=== PATIENT | female | born 1985 | race Caucasian/White ===

== ENCOUNTER 2020-03-13 10:05 | Inpatient (IN) | payer OTHER ==
[~2020-03-13] VITALS: Ht 172.7 cm; Wt 77.8 kg
--- OUTSIDE RECORDS SUMMARY | ~2020-03-13 | XMS | Encounter Summary ---
Demographics + + + | Address | [address] | | | [place] [address] | + + + | Home Phone | | + + + | Preferred Language | Unknown | + + + | Marital Status | | + + + | Pentecostal Affiliation | Unknown | + + + | Race | Unknown | + + + | Ethnic Group | Unknown | + + + Author + + + | Author | [facility] | | | and [place] | + + + | Organization | [facility] | | | and [place] | + + + | Address | Unknown | + + + | Phone | Unavailable | + + + Support + + +---------+ + | Name | Relationship | Address | Phone | + + +---------+ + | Trisha Webb | ECON | Unknown | | + + +---------+ + Care Team Providers + +------+ + | Care Chief Operator Synthesis Name | Role | Phone | + +------+ + | Burton Masters MD | PCP | | + +------+ + Reason for Visit + + + | Reason | Comments | + + + | Medication Refill | | + + + Encounter Details +--------+--------+ + + + | Date | Type | Department | Care Team | Description | +--------+--------+ + + + | 05/12/ | Refill | [facility] | Burton Masters, | Medication Refill | | 2017 | | [facility] [place] | [address] | | | | | [address] | [place] | | | | | [place] | [address] | | | | | [address] | | | | | | [phone] | | | +--------+--------+ + + + Social History + + + +--------+ + | Tobacco Use | Types | Packs/Day | Years | Date | | | | | Used | | + + + +--------+ + | Current Every Day | Cigarettes | 0.5 | 16 | Started: 03/03/2001 | | Smoker | | | | | + + + +--------+ + + +---+---+---+ | Smokeless Tobacco: | | | | | Never Used | | | | + +---+---+---+ + + +---------+ + | Alcohol Use | Drinks/Week | oz/Week | Comments | + + +---------+ + | Yes | 0 Standard drinks | 0.0 | RARE | | | or equivalent | | | + + +---------+ + + + + | Sex Assigned at | Date Recorded | | | | + + + | Not on file | | + + + + + + + | Job Start Date | Occupation | Industry | + + + + | Not on file | Not on file | Not on file | + + + + + + + + | Travel History | Travel Start | Travel End | + + + + + + | No recent travel history available. | + + documented as of this encounter Plan of Treatment +--------+ + + + + | Date | Type | Specialty | Care Team | Description | +--------+ + + + + | 03/17/ | Virtual | Neurosurgery | Zuhair Folres | | | 2019 | Office | | MD Josel[address] | | | | Visit | | [address] | | | | | | [place], [place] | | | | | | [address] | | | | | | | | +--------+ + + + + | 03/18/ | Office | Physical Medicine | Jovana Dawson | | | 2019 | Visit | and Rehabilitation | [address] | | | | | | [address] | | | | | | [address] [place] | | | | | | [address] | | | | | | | | +--------+ + + + + | 04/01/ | Appointment | Oncology | Deny Mcmanus, | | 2019 | | | MD Alan CRUZ | | | | | | [place] | | | | | | [place] [address] | | | | | | [phone] | | | | | | | | +--------+ + + + + | 04/08/ | Procedure | Physical Medicine | Leonard De Leon | | 2019 | visit | and Rehabilitation | T, MD Kiki CRUZ | | | | | | [place] | | | | | | [address] | | | | | | | | +--------+ + + + + | 04/30/ | Office | Cardiology | Shad Saavedra, | | | 2019 | Visit | | MD Alan Cruz | | | | | | [place], | | | | | | [place] [address] | | | | | | [phone] | | | | | | | | +--------+ + + + + documented as of this encounter Visit Diagnoses Not on filedocumented in this encounter"
--- OUTSIDE RECORDS SUMMARY | ~2020-03-13 | XMS | Encounter Summary ---
Demographics + + + | Address | [address] | | | [place] [address] | + + + | Home Phone | | + + + | Preferred Language | Unknown | + + + | Marital Status | | + + + | Restorationist Affiliation | Unknown | + + + | Race | Unknown | + + + | Ethnic Group | Unknown | + + + Author + + + | Author | [facility] | | | and [place] | + + + | Organization | [facility] | | | and [...] Team Providers + +------+ + | Care Boilermaker Welder Name | Role | Phone | + +------+ + | Burton Masters MD | PCP | | + +------+ + Reason for Visit + + + | Reason | Comments | + + + | Lab Results | | + + + Encounter Details +--------+ + + + + | Date | Type | Department | Care Team | Description | +--------+ + + + + | 12/26/ | Telephone | [facility] | Deny Mcmanus, | Lab Results | | 2020 | | [facility] | [address] | | | | | [facility] [address] [place], | | | | | [place] | [place] [address] | | | | | [place] [address] | [phone] | | | | | [phone] | | | +--------+ + + + + Social History + + [...] Comments | + + +---------+ + | Not Currently | 0 Standard drinks | 0.0 | None at this time. | | | or equivalent | | [...] 03/17/ | Virtual | Neurosurgery | Zuhair Flores | | | 2019 | Office | | MD [address] | | | | Visit | | [address] [facility] [address] | | | | | | [place] | | | | | | [address] | | | | | | | | +--------+ + + + + | 03/18/ | Office | Physical Medicine | Jovana Dawson | | | 2019 | Visit | and Rehabilitation | [address] | | | | | | [address] [facility] | | | | | | [address] [place] | | | | | | [address] | | | | | | | | +--------+ + + + + | 04/01/ | Appointment | Oncology | Deny Mcmanus, | | | 2019 | | | [address] | | | | | | [address] [place], | | | | | | [place] [address] | | | | | | [phone] | | | | | | | | +--------+ + + + + | 04/08/ | Procedure | Physical Medicine | Leonard De Leon | | | 2019 | visit | and Rehabilitation | MD Kiki Win | | | | | | [place] | | | | | | [address] | | | | | | | | +--------+ + + + + | 04/30/ | Office | Cardiology | Shad Saavedra, | | | 2019 | Visit | | MD Alan Cruz | | | | | | [place], | | | | | | [place] [address] | | | | | | [phone] | | | | | | | | +--------+ + + + + documented as of this encounter Visit Diagnoses Not on filedocumented in this encounter"
--- OUTSIDE RECORDS SUMMARY | ~2020-03-13 | XMS | Encounter Summary ---
Demographics + + + | Address | [address] | | | [place] [address] | + + + | Home Phone | | + + + | Preferred Language | Unknown | + + + | Marital Status | | + + + | Temple Affiliation | Unknown | + + + | Race | Unknown | + + + | Ethnic Group | Unknown | + + + Author + + + | Author | [facility] | | | and [place] | + + + | Organization | [facility] | | | [...] Team Providers + +------+ + | Care Quality Cloth Tester Name | Role | Phone | + +------+ + | Burton Masters MD | PCP | | + +------+ + Reason for Visit +--------+ + | Reason | Comments | +--------+ + | Other | | +--------+ + Encounter Details +--------+ + + + + | Date | Type | Department | Care Team | Description | +--------+ + + + + | 01/07/ | Telephone | [facility] | Deny Mcmanus, | Other | | 2019 | | [facility] | [address] | | | | | [facility]OG[facility] CLINIC [address] [place], | | | | | [place] | [place] [address] | | | | | [place] [address] | [phone] | | | | | [phone] | | | +--------+ + + + + Social History + + + +--------+ + | Tobacco Use | Types | Packs/Day | Years | Date | | | | | Used | | + + + +--------+ + | Current Every Day | Cigarettes | 1 | 16 | Started: 03/03/2001 | | [...] | | | | Visit | | [address] | | | | | | [place] | | | | | | [address] | | | | | | | | +--------+ + + + + | 03/18/ | Office | Physical Medicine | Jovana Dawson | | | 2019 | Visit | and Rehabilitation | [address] | | | | | | [address] | | | | | | [address] [place] | | | | | | [address] | | | | | | | | +--------+ + + + + | 04/01/ | Appointment | Oncology | Deny Mcmanus, | | | 2019 | | | [address] | | | | | | [address] [place] | | | | | | [place] [address] | | | | | | [phone] | | | | | | | | +--------+ + + + + | 04/08/ | Procedure | Physical Medicine | Leonard De Leon | | | 2019 | visit | and Rehabilitation | MD Audelia [address] | | | | | | [place] | | | | | | [address] | | | | | | | | +--------+ + + + + | 04/30/ | Office | Cardiology | Shad Saavedra, | | | 2019 | Visit | | MD Alan Cruz | | | | | | [place], | | | | | | [place] [address] | | | | | | [phone] | | | | | | | | +--------+ + + + + documented as of this encounter Visit Diagnoses Not on filedocumented in this encounter"
--- OUTSIDE RECORDS SUMMARY | ~2020-03-13 | XMS | Encounter Summary ---
Demographics + + + | Address | [address] | | | [place] [address] | + + + | Home Phone | | + + + | Preferred Language | Unknown | + + + | Marital Status | | + + + | Church Affiliation | Unknown | + + + | Race | Unknown | + + + | Ethnic Group | Unknown | + + + Author + + + | Author | [facility] | | | and [place] | + + + | Organization | [facility] | | | [...] Team Providers + +------+ + | Care Tile Layer Supervisor Name | Role | Phone | + +------+ + | Burton Masters MD | PCP | | + +------+ + Reason for Visit + + + | Reason | Comments | + + + | Urinary Tract | | | Infection | | + + + Encounter Details +--------+ + + + + | Date | Type | Department | Care Team | Description | +--------+ + + + + | 08/07/ | Telephone | [facility] | Burton Masters, | Urinary Tract | | 2019 | | [facility] [place] | [address] | Infection | | | | [address] | [place] | | | | | [place] | [address] | | | | | [address] | | | | | | [phone] | | | +--------+ + + + [...] | | | Visit | | [address] [facility] [address] | | | | | | [place] | | | | | | [address] | | | | | | | | +--------+ + + + + | 03/18/ | Office | Physical Medicine | Jovana Dawson | | | 2019 | Visit | and Rehabilitation | [address] | | | | | | [address] [facility] | | | | | | [address] [place] | | | | | | [address] | | | | | | | | +--------+ + + + + | 04/01/ | Appointment | Oncology | Deny Mcmanus, | | | 2019 | | | [address] | | | | | | [place] | | | | | | [place] [address] | | | | | | [phone] | | | | | | | | +--------+ + + + + | 04/08/ | Procedure | Physical Medicine | Leonard De Leon | | | 2019 | visit | and Rehabilitation | MD Kiki Win | | | | | | [place] | | | | | | [address] | | | | | | | | +--------+ + + + + | 04/30/ | Office | Cardiology | Shad Saavedra, | | | 2019 | Visit | | MD Alan Cruz | | | | | | [place] | | | | | | [place] [address] | | | | | | [phone] | | | | | | | | +--------+ + + + + documented as of this encounter Visit Diagnoses Not on filedocumented in this encounter"
--- OUTSIDE RECORDS SUMMARY | ~2020-03-13 | XMS | Encounter Summary ---
Demographics + + + | Address | [address] | | | [place] [address] | + + + | Home Phone | | + + + | Preferred Language | Unknown | + + + | Marital Status | | + + + | Mormon Affiliation | Unknown | + + + | Race | Unknown | + + + | Ethnic Group | Unknown | + + + Author + + + | Author | [facility] | | | and [place] | + + + | Organization | [facility] | | | [...] Team Providers + +------+ + | Care Front Desk Agent Name | Role | Phone | + +------+ + | Burton Masters MD | PCP | | + +------+ + Reason for Visit + + + | Reason | Comments | + + + | Follow-up | | + + + Evaluate & Treat (Routine) +--------+--------+ + + + + | Status | Reason | Specialty | Diagnoses / | Referred By | Referred To | | | | | Procedures | Contact | Contact | +--------+--------+ + + + + | Closed | | Oncology | Diagnoses | [facility] | [facility] | | | | | Chronic | Medical | Deny Sarabia MD | | | | | myeloid | Oncology | [address] | | | | | leukemia, | Clinic [address] | | | | | BCR/ABL-posi | [address] | [place], | | | | | tive, in | [place], | [place] [address] | | | | | relapse | [place] | Phone: | | | | | (HCC) | [address] | [phone] | | | | | Chronic | Phone: | Fax: | | | | | myeloid | [phone] | [phone] | | | | | leukemia, | Fax: | | | | | | BCR/ABL-posi | [phone] | | | | | | tive, not | | | | | | | having | | | | | | | achieved | | | | | | | remission | | | | | | | (HCC) | | | | | | | Procedures | | | | | | | ME OFFICE | | | | | | | OUTPATIENT | | | | | | | VISIT 25 | | | | | | | MINUTES | | | | | | | [address] | | | +--------+--------+ + + + + Encounter Details +--------+ + + + + | Date | Type | Department | Care Team | Description | +--------+ + + + + | 04/23/ | Hospital | [facility] | YonathanDeny, | Chronic myeloid | | 2019 | Encounter | [facility] | [address] | leukemia, | | | | ONCOLOGY CLINIC [address] [place], | BCR/ABL-positive, | | | | [address] | [place] [address] | not having achieved | | | | [place] [address] | [phone] | remission (HCC) | | | | [phone] | | (Primary Dx); Nausea | | | | | | vomiting and | | | | | | diarrhea | +--------+ + + + + Social [...] | | | + +---+---+---+ + + | Comments: Currently at 1/2 pack per day | + + + + +---------+ + | Alcohol Use [...] + + documented as of this encounter Last Filed Vital Signs + + + + + | Vital Sign | Reading | Time Taken | Comments | + + + + + | Blood Pressure | 130/77 | 04/23/2019 10:54 AM | | | | | PDT | | + + + + + | Pulse | 79 | 04/23/2019 10:54 AM | | | | | PDT | | + + + + + | Temperature | 36.3 C (97.3 F) | 04/23/2019 10:54 AM | | | | | PDT | | + + + + + | Respiratory Rate | 18 | 04/23/2019 10:54 AM | | | | | PDT | | + + + + + | Oxygen Saturation | 97% | 04/23/2019 10:54 AM | | | | | PDT | | + + + + + | Inhaled Oxygen | - | - | | | Concentration | | | | + + + + + | Weight | 77.2 kg (170 lb 3.1 | 04/23/2019 10:54 AM | | | | oz) | PDT | | + + + + + | Height | - | - | | + + + + + | Body Mass Index | 25.88 | 04/16/2019 12:04 PM | | | | | PDT | | + + + + + documented in this encounter Medications at Time of Discharge + + + +---------+ + + | Medication | Sig | Dispensed | Refills | Start | End Date | | | | | | Date | | + + + +---------+ + + | loperamide | 2 tablets by mouth | 50 | 1 | 04/23/20 | | | (IMODIUM A-D) 2 MG | followed by 1 tablet | tablet | | 19 | | | tablet | by mouth after each | | | | | | | loose stool; Max 16 | | | | | | | mg/day | | | | | + + + +---------+ + + | ALPRAZolam (XANAX) | Take 1-2 tablets by | 60 | 0 | 04/08/20 | | | 0.5 mg tablet | mouth 3 times daily | tablet | | 19 | 9 | | | as needed. | | | | | + + + +---------+ + + | buPROPion | Take 1 tablet by | 180 | 1 | 03/08/20 | | | (WELLBUTRIN) 100 mg | mouth 2 times daily. | tablet | | 19 | 9 | | tablet | | | | | | + + + +---------+ + + | dasatinib | Take 1 tablet (100 | 30 | 2 | 04/10/20 | | | (SPRYCEL) 100 MG | mg total) by mouth | tablet | | 19 | 9 | | TABSIndications: | Daily. | | | | | | Chronic myeloid | | | | | | | leukemia, | | | | | | | BCR/ABL-positive, | | | | | | | not having achieved | | | | | | | remission (HCC) | | | | | | + + + +---------+ + + | | Take 1 tablet by | 90 | 0 | 04/08/20 | | | HYDROcodone-acetamin | mouth every 8 hours | tablet | | 19 | 9 | | ophen (NORCO) 5-325 | as needed for Pain. | | | | | | mg per tablet | | | | | | + + + +---------+ + + | lamoTRIgine | Take 1 tablet by | 60 | 0 | 03/08/20 | | | (LAMICTAL) 25 mg | mouth Daily. | tablet | | 19 | 9 | | tablet | | | | | | + + + +---------+ + + | ondansetron | Take 1 tablet by | 30 | 2 | 03/08/20 | | | (ZOFRAN) 8 MG tablet | mouth every 12 | tablet | | 19 | 9 | | | hours. | | | | | + + + +---------+ + + | prochlorperazine | Take 1 tablet by | 30 | 0 | 04/23/20 | | | 10 mg tablet | mouth every 8 hours | tablet | | 19 | 9 | | | as needed. | | | | | + + + +---------+ + + | raNITIdine | Take 1 tablet by | | 0 | 01/03/20 | | | (ZANTAC) 150 mg | mouth Daily. | | | 19 | 0 | | tablet | | | | | | + + + +---------+ + + documented as of this encounter Progress Notes Deny Mcmanus MD - 04/23/2019 6:32 AM PDTFormatting of this note might be different fr om the original. Hematology-Oncology Progress Note [facility] Pt. Name/Age/: Ashley Webb 34 y.o. 1985 CSN: [id number] Date of service: 04/23/2019 Provider: Deny Mcmanus MD HEMATOLOGY/ONCOLOGY PROBLEM LIST: Chronic myeloid leukemia (CML), BCR/ABL-positive (HCC) 01/02/2019 Initial Diagnosis Chronic myeloid leukemia, BCR/ABL-positive, not having achieved remission (HCC) 01/04/2019 - Chemotherapy dasatinib Of note, above dates are not necessarily exact. Assessment and plan: The patient has achieved an excellent early response to dasatinib, she is having intolerabl e ongoing side effects, specifically nausea, vomiting and diarrhea attributable to the drug. Based on this, seems unlikely that she will be able to maintain dasatinib long-term, remin ded her that she will need to be on a TKI for at least 2-3 years beyond achievement of remis rachell. Reviewed options including imatinib, nilotinib, etc. My bias is to recommend imatinib whic h often is better tolerated but we agreed to hold off on a final decision until she sees Dr. Moore next week. 1. Continue dasatinib for now. 2. Compazine called in for her nausea, encouraged to try Imodium at home for diarrhea. 3. Await input from Dr. Moore at [facility] next week, further follow-up to be arranged after that visit. Subjective: The patient chart and medications were reviewed in detail and the patient was seen and exam inedNaman Webb is a 34 y.o. 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 Patient continues to take her dasatinib daily, unfortunately is having daily nausea and vom iting, minimally impacted by Zofran. Also has abdominal pain and diarrhea frequently after eating, has not tried anything for that. No fevers, no bleeding, occasional sweats. Has lo st 7 pounds compared to a week ago. Denies new medications or exposures. PMH: Past Medical History: Diagnosis Date Abdominal pain Abnormal vaginal bleeding Abscess of trunk Anxiety Bipolar disease, chronic (HCC) Breast lump Chest pain, unspecified Chronic low back pain 04/16/2015 Chronic myeloid leukemia, BCR/ABL-positive, not having achieved remission (HCC) 9 Cough DDD (degenerative disc disease), lumbar 04/16/2015 Depression Engorgement of breasts associated with childbirth, delivered Fatigue Female pelvic pain Fibromyalgia Flu Generalized anxiety disorder Headache Insomnia Knee pain Lumbar radiculopathy - left lower extremity 04/16/2015 Missed Mucocele of salivary gland Muscle spasm Obesity Palpitations Panic disorder Pulpitis Sciatica Shoulder pain Tachycardia Tobacco use Social & Family Hx: Social History Socioeconomic History Marital status: Spouse name: Not on file Number of children: 3 Years of education: 15 Highest education level: Not on file Occupational History 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 Drug use: Yes Types: Marijuana Sexual activity: Yes Social History Narrative Merged History Encounter Family History Problem Relation Age of Onset High blood pressure Father High cholesterol Father Gout Father High blood pressure Mother Multiple sclerosis Mother Heart disease Paternal Grandfather High blood pressure Paternal Grandfather Heart attack Paternal Grandfather Obesity Paternal Grandmother High blood pressure Paternal Grandmother Alcohol abuse Maternal Grandfather Heart disease Maternal Grandfather High blood pressure Maternal Grandfather Stroke Maternal Grandfather Heart attack Maternal Grandfather Miscarriages / stillbirths Maternal Grandmother Stroke Maternal Grandmother Diabetes Maternal Grandmother No known problems Brother No known problems Sister No known problems Child No known problems Child No known problems Child No known problems Paternal Uncle Lymphoma Paternal Aunt Esophageal cancer Maternal Aunt Heart disease Maternal Aunt Review of Systems: Constitutional: Pt reports moderate fatigue - worsening "I have a problem sleeping". Pt rep orts daily nausea and vomiting - medication "doesn't help much". Pt has had a 7lb weight los s since 04/16/19. Pt reports decreased appetite - ongoing; uses marijuana with positive effec t though nausea is still present. Denies high fevers, shaking chills, anorexia, or night swe ats. Ear, Nose, Mouth, Throat: Pt had mouth sores, resolved. Denies odynophagia, dysphagia, or t innitus. Cardiovascular: Pt reports elevated HR and chest pain x1. Went to the ED with resolution of symptoms. Denies shortness of breath, dyspnea on exertion, chest pain, palpitations or orth opnea. Respiratory: Denies cough, hemoptysis, or sputum production. Gastrointestinal: Pt reports diarrhea with food. Pt reports abdominal pain - worsening. Den ies constipation, melena, or bright red blood per rectum. Genitourinary: Denies hematuria or dysuria. Musculoskeletal: Pt reports pain in "long bones". Denies joint pain or tenderness. Neurologic: Denies headache, visual changes, or numbness/tingling of the extremities. Endocrine: Denies peripheral edema or heat/cold intolerance. Hematologic: Denies spontaneous bruising or bleeding. Bruises easily. Integumentary: Denies rash, wounds or other skin concerns. Pain: Pt reports pain in long bones at 7/10 currently. Pt states current pain management mi nimally effective. ROS otherwise negative. Note: Pt here for follow-up with Dr. Mcmanus. My chart: Active. Medications: Current Outpatient Medications Medication Sig ALPRAZolam (XANAX) 0.5 mg tablet Take 1-2 tablets by mouth 3 times daily as needed. buPROPion (WELLBUTRIN) 100 mg tablet Take 1 tablet by mouth 2 times daily. dasatinib (SPRYCEL) 100 MG TABS Take 1 tablet (100 mg total) by mouth Daily. HYDROcodone-acetaminophen (NORCO) 5-325 mg per tablet Take 1 tablet by mouth every 8 ho urs as needed for Pain. lamoTRIgine (LAMICTAL) 25 mg tablet Take 1 tablet by mouth Daily. ondansetron (ZOFRAN) 8 MG tablet Take 1 tablet by mouth every 12 hours. prochlorperazine 10 mg tablet Take 1 tablet by mouth every 8 hours as needed. raNITIdine (ZANTAC) 150 mg tablet Take 1 tablet by mouth Daily. No current facility-administered medications for this encounter. Allergies: Allergies Allergen Reactions Tape [Adhesive & Tape] Vitals: Temp: 36.3 C (97.3 F) BP: 130/77 Pulse: 79 Resp: 18 SpO2: 97 % on Temp :Temp Av.3 C (97.3 F) Min: 36.3 C (97.3 F) Max: 36.3 C (97.3 F) Wt. Current: Weight: 77.2 kg (170 lb 3.1 oz) Physical Exam: ECOG Performance Status: 2 General: The patient is alert and oriented. No acute distress. Here with significant oth er and multiple children. Psychiatric: Normal mood and affect. Appropriate. Diagnostic studies: Available data and image reports were reviewed personally. See reports. Significant resul ts and findings are addressed here or in the Assessment and Plan. Recent Labs Lab 04/16/19 1259 WBC 4.1 HGB 13.3 HCT 38.8 PLT 88* Recent Labs Lab 04/16/19 1259 NA 138 K 3.3* CL 111* CO2 23 BUN 6* CREA 0.68 GLU 85 CALCIUM 8.6* BILITOT 0.4 AST 33 ALT 25 ALKPHOS 86 ALBUMIN 3.8 BCR-ABL1 for CML and All Order: [id number] Status: Final result Visible to patient: Yes (MyChart) Next appt: Today at 11:00 in Oncology (Deny Mcmanus MD) Dx: Chronic myeloid leukemia, BCR/ABL-pos... Ref Range & Units 13d ago b2a2 transcript % 0.1637 b3a2 transcript % Comment Comment: <0.0032 % (sensitivity limit of assay) BCR/ABL1 of e1a2 Type % Comment Comment: <0.0032 % (sensitivity limit of assay) Interpretation: Comment Comment: POSITIVE for the BCR-ABL1 e13a2 (b2a2, p210) fusion transcript. Imaging: Recent Results (from the past 360 hour(s)) US Chest Narrative TECHNIQUE: Targeted chest B-mode ultrasound with color Doppler CLINICAL INFORMATION: Limited to pericardial effusion. COMPARISON: Chest radiograph obtained same day and 03/05/2019. FINDINGS: No sonographic findings to suggest a pericardial effusion. Very limited visualization of the heart. No evidence of a mass lesion or abnormal fluid collection. IMPRESSION - No sonographic evidence of a pericardial effusion. Notification: A preliminary report was relayed to the ordering provider by the electromechanical technologist immediately following the exam. Dictated and Signed by: Tyshawn Newton MD Electronically signed: 04/16/2019 1:16 PM XR Chest AP Portable Narrative XR CHEST AP PORTABLE 04/16/2019 1:07 PM HISTORY: PLEURITIC CHEST PAIN (ADULT). COMPARISON: Multiple priors. Findings: Heart size is within normal limits. Aorta is normal. Mediastinum demonstrates no acute findings. Central pulmonary vasculature is normal. The bilateral lungs are clear with no evidence for pleural effusion or pneumothorax. There are no acute osseous abnormalities. IMPRESSION - No acute findings. Dictated and Signed by: Jeffrey Nicholas MD Electronically signed: 04/16/2019 1:29 PM Electronically signed by: Deny Mcmanus MD 04/23/2019 11:28 CC: Burton Masters MD Total time in face to face discussion with the patient and family was 25 minutes; more than 50% of the time was spent in counseling and coordination of care. Portions of this chart may have been created with [employer] voice recognition software. Occasi onal wrong-word or sound-alike substitutions may have occurred due to the inherent dickens itations of voice recognition software. Please read the chart carefully and recognize, using context, where these substitutions have occurred. documented in this encounter Plan of Treatment +--------+ + + + + | Date | Type | Specialty | Care Team | Description | +--------+ + + + + | 03/17/ | Virtual | Neurosurgery | Zuhair Flores | | | 2019 | Office | | MD Kiki Yee W | | | | Visit | | [address] | | | | | | [place] | | | | | | [address] | | | | | | | | +--------+ + + + + | 03/18/ | Office | Physical Medicine | Jovana Dawson | | | 2019 | Visit | and Rehabilitation | [address] | | | | | | [address] [facility] | | | | | | [address] [place] | | | | | | [address] | | | | | | | | +--------+ + + + + | 04/01/ | Appointment | Oncology | Deny Mcmanus, | | | 2019 | | | [address] | | | | | | [facility] [place], | | | | | | [place] [address] | | | | | | [phone] | | | | | | | | +--------+ + + + + | 04/08/ | Procedure | Physical Medicine | Leonard De Leon | | | 2019 | visit | and Rehabilitation | T, [address] | | | | | | [place] | | | | | | [address] | | | | | | | | +--------+ + + + + | 04/30/ | Office | Cardiology | Shad Saavedra, | | 2019 | Visit | | [address] | | | | | | [place], | | | | | | [place] [address] | | | | | | [phone] | | | | | | | | +--------+ + + + + documented as of this encounter Procedures + +--------+ + + + | Procedure Name | Priori | Date/Time | Associated Diagnosis | Comments | | | ty | | | | + +--------+ + + + | LABS - EXTERNAL SCAN | | 05/20/2019 | | Results for this | | | | 12:00 AM | | procedure are in the | | | | PDT | | results section. | + +--------+ + + + documented in this encounter Results LABS - EXTERNAL SCAN (05/20/2019 12:00 AM PDT) + + + | Narrative | Performed At | + + + | Ordered by an | | | unspecified provider. | | + + + documented in this encounter Visit Diagnoses + + | Diagnosis | + + | Chronic myeloid leukemia, BCR/ABL-positive, not having achieved remission (HCC) - | | Primary Chronic myeloid leukemia, without mention of having achieved remission | + + | Nausea vomiting and diarrhea Nausea with vomiting | + + documented in this encounter
--- OUTSIDE RECORDS SUMMARY | ~2020-03-13 | XMS | Encounter Summary ---
Demographics + + + | Address | [address] | | | [place] [address] | + + + | Home Phone | | + + + | Preferred Language | Unknown | + + + | Marital Status | | + + + | Jehovah'S Witness Affiliation | Unknown | + + + | Race | Unknown | + + + | Ethnic Group | Unknown | + + + Author + + + | Author | [facility] | | | and [place] | + + + | Organization | [facility] | | | [...] Team Providers + +------+ + | Care Information Technology Consultant Name | Role | Phone | + [...] Description | +--------+--------+ + + + | 02/18/ | Refill | [facility] | Burton Masters, | Medication Refill | | 2020 | | [facility] | [address] | | | | | [address] | [place] | | | | | [place] | [address] | | | | | [address] | | | | | | [phone] | | | +--------+--------+ + + + [...] | +--------+ + + + + | 05/12/ | Virtual | Neurosurgery | Zuhair Flores | | | 2019 | Office | | MD [address] | | | | Visit | | [address] | | | | | | [place] | | | | | | [address] | | | | | | | | +--------+ + + + + | 03/18/ | Office | Physical Medicine | Jovana Dawson | | | 2019 | Visit | and Rehabilitation | [address] | | | | | | [address] [facility] [facility] | | | | | | [address] [place] | | | | | | [address] | | | | | | | | +--------+ + + + + | 04/01/ | Appointment | Oncology | Deny Mcmanus, | | | 2019 | | | MD [address] | | | | | | [place] | | | | | | [place] [address] | | | | | | [phone] | | | | | | | | +--------+ + + + + | 04/08/ | Procedure | Physical Medicine | Leonard De Leon | | | 2019 | visit | and Rehabilitation | MD [address] | | | | | | [place] | | | | | | [address] | | | | | | | | +--------+ + + + + | 04/30/ | Office | Cardiology | Shad Saavedra, | | | 2019 | Visit | | MD [address] | | | | | | [address], | | | | | | [place] [address] | | | | | | [phone] | | | | | | | | +--------+ + + + + documented as of this encounter Visit Diagnoses Not on filedocumented in this encounter"
--- OUTSIDE RECORDS SUMMARY | ~2020-03-13 | XMS | Encounter Summary ---
Demographics + + + | Address | [address] | | | [place] [address] | + + + | Home Phone | | + + + | Preferred Language | Unknown | + + + | Marital Status | | + + + | Jewish Affiliation | Unknown | + + + | Race | Unknown | + + + | Ethnic Group | Unknown | + + + Author + + + | Author | [facility] | | | and [place] | + + + | Organization | [facility] | | | [...] Team Providers + +------+ + | Care Senior Design Engineering Specialist Name | Role | Phone | + +------+ + | Burton Masters MD | PCP | | + +------+ + Reason for Visit Evaluate & Treat (Routine) +--------+--------+ + + + + | Status | Reason | Specialty | Diagnoses / | Referred By | Referred To | | | | | Procedures | Contact | Contact | +--------+--------+ + + + + | Closed | | Oncology | Diagnoses | [facility] | Yonathan, | | | | | Chronic | Medical | Deny Sarabia MD | | | | | myeloid | Oncology | [address] | | | | | leukemia, | Clinic [address] | | | | | BCR/ABL-posi | [address] | [place], | | | | | [place] in | [place], | [place] [address] | | | | | relapse | [place] | Phone: | | | | | (HCC) | [address] | [phone] | | | | | Chronic | Phone: | Fax: | | | | | myeloid | [phone] | [phone] | | | | | leukemia, | Fax: | | | | | | BCR/ABL-posi | [phone] | | | | | | tive, not | | | | | | | having | | | | | | | achieved | | | | | | | remission | | | | | | | (HCC) | | | | | | | Procedures | | | | | | | [place] OFFICE | | | | | | | OUTPATIENT | | | | | | | VISIT 25 | | | | | | | MINUTES | | | | | | | [address] | | | +--------+--------+ + + + + Encounter Details +--------+ + + + + | Date | Type | Department | Care Team | Description | +--------+ + + + + | 02/13/ | Hospital | [facility] | Deny Mcmanus, | Chronic myeloid | | 2019 | Encounter | [facility] | MD [address] | leukemia, | | | | ONCOLOGY CLINIC [address] [place], | BCR/ABL-positive, | | | | [place] | [place] [address] | not having achieved | | | | [place] [address] | [phone] | remission (HCC) | | | | [phone] | | (Primary Dx); Lumbar | | | | | | radiculopathy; | | | | | | Lumbar spondylosis; | | | | | | Moderate episode of | | | | | | recurrent major | | | | | | depressive disorder | | | | | | (HCC) | +--------+ + + + + Social [...] + + + | Blood Pressure | 153/83 | 02/13/2019 10:57 AM | | | | | PDT | | + + + + + | Pulse | 74 | 02/13/2019 10:57 AM | | | | | PDT | | + + + + + | Temperature | 37.1 C (98.7 F) | 02/13/2019 10:57 AM | | | | | PDT | | + + + + + | Respiratory Rate | 18 | 02/13/2019 10:57 AM | | | | | PDT | | + + + + + | Oxygen Saturation | 99% | 02/13/2019 10:57 AM | | | | | PDT | | + + + + + | Inhaled Oxygen | - | - | | | Concentration | | | | + + + + + | Weight | 82.1 kg (181 lb) | 02/13/2019 10:57 AM | | | | | PDT | | + + + + + | Height | - | - | | + + + + + | Body Mass Index | 27.53 | 01/16/2019 9:34 AM | | | | | PDT [...] (XANAX) | Take 1-2 tablets by | 20 | 1 | 01/05/20 | | | 0.25 mg tablet | mouth Twice daily | tablet | | 19 | 9 | | | as needed for | | | | | | | Anxiety. | | | | | + + + +---------+ + + | buPROPion | Take 2 tablets by | 180 | 1 | 12/03/19 | | | (WELLBUTRIN) 100 mg | mouth 2 times daily. | tablet | | 19 | 9 | | tablet | | | | | | + + + +---------+ + + | dasatinib | Take 1 tablet by | 30 | 2 | 01/12/20 | | | (SPRYCEL) 100 MG | mouth Daily. | tablet | | 19 | 9 | | TABSIndications: | | | | | | | Chronic [...] tablet by | 90 | 0 | 01/17/20 | | | HYDROcodone-acetamin | mouth every 8 hours | tablet | | 19 | 9 | | ophen (NORCO) 5-325 | as needed for Pain. | | | | | | mg per tablet | | | | | | + + + +---------+ + + | ondansetron | Take 1 tablet by | | 0 | 01/03/20 | | | (ZOFRAN) 8 MG tablet | mouth every 12 | | | 19 | 9 | | [...] encounter Progress Notes Deny Mcmanus MD - 02/13/2019 6:43 AM PDTFormatting of this note might be different fr om the original. Hematology-Oncology Progress Note [facility] Pt. Name/Age/: Ashley Webb 34 y.o. 1985 CSN: [id number] Date of service: 02/13/2019 Provider: Deny Mcmanus MD HEMATOLOGY/ONCOLOGY PROBLEM LIST: Chronic myeloid leukemia (CML), BCR/ABL-positive (HCC) 01/02/2019 Initial Diagnosis Chronic myeloid leukemia, BCR/ABL-positive, not having achieved remission (HCC) 01/04/2019 - Chemotherapy dasatinib Of note, above dates are not necessarily exact. Assessment and plan: Patient continues to respond beautifully to the dasatinib, now having achieved a complete h ematologic response. Recommended continuation of the drug, with regular monitoring to hopef ully document that she achieves a molecular remission as well. Regarding her ongoing anorexia and nausea, seems increasingly unlikely that this is related to either her chronic leukemia or the dasatinib given that it predates the dasatinib and may s not resolved with excellent control of her hematologic condition. As such, I would recomm end independent evaluation of those symptoms as already planned. She acknowledges that it m ay be related to her other medications including her narcotics. 1. Continue dasatinib 100 mg daily. 2. Recheck in approximately 2 months with labs including BCR/ABL approximately a week befor ada. 3. Patient has appointment with her PCP on Monday to further evaluate her ongoing GI sympto ms. Subjective: The patient chart and medications were reviewed in detail and the patient was seen and exam inedNaman Webb is a 34 y.o. 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 Patient continues to complain of poor appetite, ongoing nausea without vomiting. Has lost a little bit more weight, no fevers or drenching sweats. Scattered arthralgias are unchange d, still using hydrocodone for that. No new adenopathy. Did notice a nonpruritic, nonpainf ul rash under her chin just this morning. Energy level still low. 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 Drug use: No Sexual activity: Yes Other Topics Concern None Social History Narrative Merged History Encounter Family [...] Heart disease Maternal Aunt Review of Systems: REVIEW OF SYSTEMS Constitutional: Energy is very low and continues to be low. Nausea "all the time" and taki ng Zofran every morning. Weight is down to 82.1kg from 83.2 kg. "No appetite reported" No fe vers. Denies fatigue. Denies high fevers, shaking chills, anorexia, nausea, vomiting, weigh t loss, or night sweats. Appetite without changes. Ear, Nose, Mouth, Throat: Denies odynophagia, dysphagia, or tinnitus. Cardiovascular: Denies shortness of breath, dyspnea on exertion, chest pain, palpitations o r orthopnea. Respiratory: Cough with clear phlegm continues (chronic d/t smoking). Denies cough, hemopty sis, or sputum production. Gastrointestinal: Denies abdominal pain, constipation, diarrhea, melena, or bright red bloo d per rectum. Genitourinary: Denies hematuria or dysuria. Musculoskeletal: Backs/hips/knee pain continues and can get up to 8/10. Denies joint pain o r tenderness. Neurologic: MAY's daily. Denies headache, visual changes, or numbness/tingling of the extrem ities. Endocrine: Denies peripheral edema or heat/cold intolerance. Hematologic: Bruises easily. Denies spontaneous bruising or bleeding. Integumentary: Starting today facial redness with small red bumps. Denies rash, wounds or o ther skin concerns. Pain: Generalized joint pain; taking Hydrocodone 3x daily; 6/10 currently. Note: 3 week F/U with labs My chart: Active Medications: Current Outpatient Medications Medication Sig ALPRAZolam (XANAX) 0.25 mg tablet Take 1-2 tablets by mouth Twice daily as needed for Anxiety. buPROPion (WELLBUTRIN) 100 mg tablet Take 2 tablets by mouth 2 times daily. dasatinib (SPRYCEL) 100 MG TABS Take 1 tablet by mouth Daily. HYDROcodone-acetaminophen (NORCO) 5-325 mg per tablet Take 1 tablet by mouth every 8 ho urs as needed for Pain. ondansetron (ZOFRAN) 8 MG tablet Take 1 tablet by mouth every 12 hours. raNITIdine (ZANTAC) 150 mg tablet Take 1 tablet by mouth Daily. No current facility-administered medications for this encounter. Allergies: Allergies Allergen Reactions Tape [Adhesive & Tape] Vitals: Temp: 37.1 C (98.7 F) BP: 153/83 Pulse: 74 Resp: 18 SpO2: 99 % on Temp :Temp Av.1 C (98.7 F) Min: 37.1 C (98.7 F) Max: 37.1 C (98.7 F) Wt. Current: Weight: 82.1 kg (181 lb) Physical Exam: Exam: ECOG Performance Status: 1 General: The patient is alert and oriented. No acute distress. Here with . HEENT: PERRL, Non-icteric. Skin: No bruising, or petechiae. Minimal erythematous rash under the chin. Neurological: , No focal deficits noted. Speech fluent. Psychiatric: Normal mood and affect. Appropriate. Diagnostic studies: Available data and image reports were reviewed personally. See reports. Significant resul ts and findings are addressed here or in the Assessment and Plan. Component Latest Ref Rng & Units 01/11/2019 01/22/2019 02/13/2019 1037 1526 1023 WBC 4.0 - 11.0 K/uL 63.3 (HH) 13.8 (H) 8.1 RBC COUNT 3.70 - 5.20 M/uL 4.12 4.22 4.42 Hemoglobin 11.5 - 16.0 g/dL 13.0 13.1 14.5 Hct, Final 34.0 - 47.0 % 38.9 40.3 43.0 MCV 83.0 - 101.0 fL 94.4 95.5 97.3 MCH 28.0 - 35.0 pg 31.6 31.0 32.8 MCHC 32.0 - 36.0 g/dL 33.4 32.5 33.7 RDW-CV <15.0 % 16.0 (H) 16.8 (H) 16.6 (H) RDW-SD 35.1 - 46.3 fL 54.5 (H) 57.4 (H) 60.3 (H) Platelet Count 140 - 440 K/uL 690 (H) 263 292 MPV 6.5 - 12.4 fL 10.7 9.9 8.7 % Neutrophils 45.0 - 82.0 % 47.2 64.8 61.1 % Lymphocytes 20.0 - 45.0 % 9.7 (L) 26.7 32.2 % Monocytes 4.0 - 12.0 % 2.9 (L) 2.0 (L) 4.9 % Eosinophils 0.0 - 5.0 % 1.4 1.7 0.4 % Basophils 0.0 - 1.0 % 6.5 (H) 2.6 (H) 1.2 (H) % Immature Granulocytes 0.0 - 0.4 % 32.3 (H) 2.2 (H) 0.2 Absolute Neutrophils 1.80 - 8.50 K/uL 29.85 (H) 8.94 (H) 4.97 Absolute Lymphocytes 0.60 - 3.20 K/uL 6.11 (H) 3.68 (H) 2.62 Absolute Monocytes 0.00 - 1.00 K/uL 1.83 (H) 0.27 0.40 Absolute Eosinophils 0.00 - 0.40 K/uL 0.91 (H) 0.24 0.03 Absolute Basophils 0.00 - 0.10 K/uL 4.11 (H) 0.36 (H) 0.10 Absolute Immature Granulocytes 0.00 - 0.03 K/uL 20.46 (H) 0.31 (H) 0.02 % nRBC 0 - 2 per 100 WBCs 0 1 0 Absolute nRBC 0.00 - 0.01 K/uL 0.16 (H) 0.10 (H) 0.00 Recent Labs Lab 02/13/19 1023 NA 139 K 4.0 CL 111* CO2 25 BUN 11 CREA 0.77 GLU 83 CALCIUM 8.7 BILITOT 1.1 AST 26 ALT 25 ALKPHOS 82 ALBUMIN 4.2 Electronically signed by: Deny Mcmanus MD 02/13/2019 11:20 CC: Burton Masters MD Portions of this chart may have been created with [employer] voice recognition software. Occasi onal wrong-word or [...] | Neurosurgery | Zuhair Flores | | 2019 | Office | | MD Joselito [address] | | | | Visit | | [place] [address] | | | | | | [place] | | | | | | [address] | | | | | | | | +--------+ + + + + | 03/18/ | Office | Physical Medicine | Jovana Dawson | | 2019 | Visit | and Rehabilitation | Magda, PA-C [address] | | | | | | [address] [facility] | | | | | | [address] [place] | | | | | | [address] | | | | | | | | +--------+ + + + + | 04/01/ | Appointment | Oncology | Deny Mcmanus, | | | 2019 | | | [address] | | | | | | [place] | | | | | | [place] [address] | | | | | | [phone] | | | | | | | | +--------+ + + + + | 04/08/ | Procedure | Physical Medicine | Leonard De Leon | | | 2019 | visit | and Rehabilitation | MD Audelia [address] | | | | | | [place] | | | | | | [address] | | | | | | | | +--------+ + + + + | 04/30/ | Office | Cardiology | Shad Saavedra, | | | 2019 | Visit | | MD [address] | | | | | | [place], | | | | | | [place] [address] | | | | | | [phone] | | | | | | | | +--------+ + + + + documented as of this encounter Procedures + +--------+ + + + | Procedure Name | Priori | Date/Time | Associated Diagnosis | Comments | | | ty | | | | + +--------+ + + + | CBC WITH | STAT | 02/13/2019 | Chronic myeloid | Results for this | | DIFFERENTIAL | | 10:23 AM | leukemia, | procedure are in the | | | | PDT | BCR/ABL-positive, | results section. | | | | | not having achieved | | | | | | remission (HCC) | | + +--------+ + + + | COMPREHENSIVE | STAT | 02/13/2019 | Chronic myeloid | Results for this | | METABOLIC PANEL | | 10:23 AM | leukemia, | procedure are in the | | | | PDT | BCR/ABL-positive, | results section. | | | | | not having achieved | | | | | | remission (HCC) | | + +--------+ + + + documented in this encounter Results BCR-ABL1 for CML and All (04/10/2019 10:23 AM PDT) + + + + + + | Component | Value | Ref Range | Performed | Pathologist | | | | | At | Signature | + + + + + + | b2a2 | 0.1637 | % | REFERENCE | | | transcript | | | LAB [facility] | | | | | | - [facility] | | + + + + + + | b3a2 | CommentComment: | % | REFERENCE | | | transcript | <0.0032 % | | LAB [facility] | | | | (sensitivity limit of | | - [facility] | | | | assay) | | | | + + + + + + | BCR/ABL1 of | CommentComment: | % | REFERENCE | | | e1a2 Type | <0.0032 % | | LAB [facility] | | | | (sensitivity limit of | | - [facility] | | | | assay) | | | | + + + + + + | Interpretat | CommentComment: POSITIVE | | REFERENCE | | | ion: | for the BCR-ABL1 e13a2 | | LAB [facility] | | | | (b2a2, p210) fusion | | - [facility]KR | | | | transcript. | | | | + + + + + + | Director | CommentComment: Elsie Koo, | | REFERENCE | | | Review | PhD, FACMG | | LAB [facility] | | | | Director, | | - BKR | | | | Molecular Genetics | | | | | | [facility] | | | | | | [facility] | | | | | | | | | | | | Biology and Pathology | | | | | | | | | | | | [facility], | | | | | | [place] | | | | | | | | | | + + + + + + | Background: | CommentComment: This | | REFERENCE | | | | assay can detect three | | LAB [facility] | | | | different types of | | - BKR | | | | BCR-ABL1 | | | | | | fusiontranscripts | | | | | | associated with CML, | | | | | | ALL, and AML: e13a2 | | | | | | ([id number]) and | | | | | | e14a2 (previously b3a2) | | | | | | (major breakpoint, | | | | | | p210), aswell as e1a2 | | | | | | (minor breakpoint, | | | | | | p190). The e13a2 and | | | | | | e14a2 transcriptvalues | | | | | | are titrated to the | | | | | | current International | | | | | | Scale (IS). | | | | | | Thestandardized baseline | | | | | | is 100% BCR-ABL1 (IS) | | | | | | and major | | | | | | molecularresponse (MMR) | | | | | | is equivalent to 0.1% | | | | | | BCR-ABL1 (IS) | | | | | | correspondingto a 3-log | | | | | | reduction. Results | | | | | | should be correlated | | | | | | with appropriateclinical | | | | | | and laboratory | | | | | | information as | | | | | | indicated. | | | | + + + + + + | Methodology | CommentComment: Total | | REFERENCE | | | : | RNA is isolated from the | | LAB [facility] | | | | sample and subject to a | | - BKR | | | | real-time,reverse | | | | | | transcriptase polymerase | | | | | | chain reaction | | | | | | (RT-PCR). The PCRprimers | | | | | | and probes are specific | | | | | | for BCR-ABL1 e13a2, | | | | | | e14a2 and [id number] | | | | | | transcripts. The ABL1 | | | | | | transcript is amplified | | | | | | as the controlfor cDNA | | | | | | quantity and quality. | | | | | | Serial dilutions of a | | | | | | validatedpositive | | | | | | control RNA with known | | | | | | t(9;22) BCR-ABL1 are | | | | | | used asreference for | | | | | | quantification of | | | | | | BCR-ABL1 relative to | | | | | | ABL1. Thenumeric | | | | | | BCR-ABL1 level is | | | | | | reportd as % | | | | | | BCR-ABL1/ABL1 and | | | | | | thedetection sensitivity | | | | | | is 4.5 log below the | | | | | | standard baseline.This | | | | | | test was developed and | | | | | | its performance | | | | | | characteristics | | | | | | determinedby [facility]. It | | | | | | has not been cleared or | | | | | | approved by the Food | | | | | | and | | | | | | DrugAdministration.Refer | | | | | | ences: 1. Lalitha T | | | | | | and Jade Ortiz: Seminars | | | | | | in Hematology 2002; | | | | | | 40 (suppl2):62-68. | | | | | | 2. carlito Sheikh | | | | | | al. Blood 2010; 116: | | | | | | [id number]. 3. NCCN | | | | | | Clinical Practice | | | | | | Guidelines in Oncology, | | | | | | Chronic Myeloid | | | | | | Leukemia. V2. 2017. | | | | + + + + + + + + | Specimen | + + | Blood | + + + + + | Narrative | Performed At | + + + | Performed at: - [facility] [address] [facility], | REFERENCE LAB | | [facility], [place] [id number] [address] Former: Miguelina Lorenzo MD, Phone: | [facility] | | [phone] Performed at: - [facility] [address] [facility], [place] [id number] [employer] Former: Miguelina Lorenzo MD, | | | Phone: [phone] | | + + + + + + + + | Performing | Address | City/State/Zipcode | Phone Number | | Organization | | | | + + + + + | REFERENCE LAB | [address] | [place], [place] | [phone] | | [facility] | [address] | [address] | | + + + + + Comprehensive Metabolic Panel (04/10/2019 10:23 AM PDT) + + + + + + | Component | Value | Ref Range | Performed | Pathologist | | | | | At | Signature | + + + + + + | Na | 137 | 136 - 145 | [facility] | | | | | mmol/L | [facility] | | | | | | [facility] | | | | | | CENTER - | | | | | | LABORATORY | | + + + + + + | K | 4.0 | 3.4 - 5.1 | [facility] | | | | | mmol/L | [facility] | | | | | | MEDICAL | | | | | | CENTER - | | | | | | LABORATORY | | + + + + + + | Cl | 110 (H) | 98 - 107 mmol/L | [facility] | | | | | | [facility] | | | | | | MEDICAL | | | | | | CENTER - | | | | | | LABORATORY | | + + + + + + | CO2 | 21 | 20 - 31 mmol/L | [facility] | | | | | | [facility] | | | | | | [facility] | | | | | | CENTER - | | | | | | LABORATORY | | + + + + + + | Anion Gap | 6 | 3 - 16 mmol/L | [facility] | | | | | | [facility] | | | | | | [facility] | | | | | | C[facility] - | | | | | | LABORATORY | | + + + + + + | Glucose | 82 | 60 - 106 mg/dL | [facility] | | | | | | [facility] | [facility] | | | | | | C[facility] - | | | | | | LABORATORY | | + + + + + + | BUN | 15 | 9 - 23 mg/dL | [facility] | | | | | | [facility] | | | | | | [facility] | | | | | | C[facility] - | | | | | | LABORATORY | | + + + + + + | Creatinine | 0.76 | 0.55 - 1.02 | [facility] | | | | | mg/dL | [facility] | | [facility] | [facility] | | | | | | CENTER - | | | | | | LABORATORY | | + + + + + + | eGFR if not | >60Comment: GLOMERULAR | >=60 | [facility] | | | | FILTRATION | mL/min/1.73m2 | [facility] | | | [place] | RATE,ESTIMATED | | MEDICAL | | | | mL/min/1.72r8Kmbp than | | CENTER - | | | | 60 Chronic kidney | | LABORATORY | | | | disease,if found over a | | | | | | 3-month period.Less than | | | | | | 15 Kidney failureFor | | | | | | | | | | | | Americans,multiply the | | | | | | calculated GFR by 1.21. | | | | | | | | | | + + + + + + | Calcium | 8.9 | 8.7 - 10.4 | [facility] | | | | | mg/dL | [facility] | | | | | | [facility] | | | | | | CENTER - | | | | | | LABORATORY | | + + + + + + | Albumin | 4.3 | 3.2 - 4.8 g/dL | [facility] | | | | | | [facility] | | | | | | MEDICAL | | | | | | CENTER - | | | | | | LABORATORY | | + + + + + + | Bilirubin | 0.6 | 0.3 - 1.2 mg/dL | [facility] | | | Total | | | [facility] | | | | | | MEDICAL | | | | | | CENTER - | | | | | | LABORATORY | | + + + + + + | Total | 6.5 | 5.7 - 8.2 g/dL | [facility] | | | Protein | | | [facility] | | | | | | MEDICAL | | | | | | CENTER - | | | | | | LABORATORY | | + + + + + + | AST | 16 | 0 - 34 U/L | [facility] | | | | | | [facility] | | | | | | MEDICAL | | | | | | CENTER - | | | | | | LABORATORY | | + + + + + + | ALT | 12 | 10 - 49 U/L | [facility] | | | | | | [facility] | | | | | | MEDICAL | | | | | | CENTER - | | | | | | LABORATORY | | + + + + + + | Alkaline | 82 | 46 - 116 U/L | [facility] | | | Phosphatase | | | [facility] | | | | | | MEDICAL | | | | | | CENTER - | | | | | | LABORATORY | | + + + + + + | Globulin | 2.2 | 2.1 - 3.8 g/dL | [facility] | | | | | | [facility] | | | | | | MEDICAL | | | | | | CENTER - | | | | | | LABORATORY | | + + + + + + | Albumin/Simona | 2.0 (H) | 0.8 - 1.9 | [facility] | | | bulin Ratio | | | [facility] | | | | | | MEDICAL | | | | | | CENTER - | | | | | | LABORATORY | | + + + + + + | BUN/Creatin | 19.7 | | [facility] | | | ine Ratio | | | [facility] | | | | | | MEDICAL | | | | | | CENTER - | | | | | | LABORATORY | | + + + + + + + + | Specimen | + + | Blood | + + + + + + + | Performing | Address | City/State/Zipcode | Phone Number | | Organization | | | | + + + + + | [facility] | [address] | [place] | [phone] | | [facility] | | [address] | | | - LABORATORY | | | | + + + + + CBC with Differential (04/10/2019 10:23 AM PDT) + + + + + + | Component | Value | Ref Range | Performed | Pathologist | | | | | At | Signature | + + + + + + | WBC | 5.2 | 4.0 - 11.0 K/uL | [facility] | | | | | | [facility] | | | | | | [facility] | | | | | | C[facility] - | | | | | | LABORATORY | | + + + + + + | RBC | 4.56 | 3.70 - 5.20 | [facility] | | | | | M/uL | [facility] | | | | | | [facility] | | | | | | CENTER - | | | | | | LABORATORY | | + + + + + + | Hemoglobin | 14.9 | 11.5 - 16.0 | [facility] | | | | | g/dL | [facility] | | | | | | MEDICAL | | | | | | CENTER - | | | | | | LABORATORY | | + + + + + + | Hematocrit | 42.9 | 34.0 - 47.0 % | [facility] | | | | | | [facility] | | | | | | MEDICAL | | | | | | CENTER - | | | | | | LABORATORY | | + + + + + + | MCV | 94.1 | 83.0 - 101.0 fL | [facility] | | | | | | [facility] | | | | | | MEDICAL | | | | | | CENTER - | | | | | | LABORATORY | | + + + + + + | MCH | 32.7 | 28.0 - 35.0 pg | [facility] | | | | | | [facility] | | | | | | MEDICAL | | | | | | CENTER - | | | | | | LABORATORY | | + + + + + + | MCHC | 34.7 | 32.0 - 36.0 | [facility] | | | | | g/dL | [facility] | | | | | | MEDICAL | | | | | | CENTER - | | | | | | LABORATORY | | + + + + + + | RDW-CV | 14.5 | <15.0 % | [facility] | | | | | | [facility] | | | | | | MEDICAL | | | | | | CENTER - | | | | | | LABORATORY | | + + + + + + | RDW-SD | 49.7 (H) | 35.1 - 46.3 fL | [facility] | | | | | | [facility] | | | | | | MEDICAL | | | | | | CENTER - | | | | | | LABORATORY | | + + + + + + | Platelet | 99 (L) | 140 - 440 K/uL | [facility] | | | Count | | | [facility] | | | | | | MEDICAL | | | | | | CENTER - | | | | | | LABORATORY | | + + + + + + | MPV | 9.4 | 6.5 - 12.4 fL | [facility] | | | | | | [facility] | | | | | | MEDICAL | | | | | | CENTER - | | | | | | LABORATORY | | + + + + + + | Immature | 2.2Comment: Low PLT + | 0.9 - 11.2 % | [facility] | | | Platelet | Low IPF are consistent | | [facility] | | | Fraction | with a production | | MEDICAL | | | | disorder. Low PLT + High | | CENTER - | | | | IPF are consistent with | | LABORATORY | | | | increased platelet | | | | | | destruction. | | | | + + + + + + | % | 51.3 | 45.0 - 82.0 % | [facility] | | | Neutrophils | | | [facility] | | | | | | MEDICAL | | | | | | CENTER - | | | | | | LABORATORY | | + + + + + + | % | 33.2 | 20.0 - 45.0 % | [facility] | | | Lymphocytes | | | [facility] | | | | | | MEDICAL | | | | | | CENTER - | | | | | | LABORATORY | | + + + + + + | % Monocytes | 11.6 | 4.0 - 12.0 % | [facility] | | | | | | [facility] | | | | | | [facility]ICAL | | | | | | CENTER - | | | | | | LABORATORY | | + + + + + + | % | 2.9 | 0.0 - 5.0 % | [facility] | | | Eosinophils | | | [facility] | | | | | | MEDICAL | | | | | | CENTER - | | | | | | LABORATORY | | + + + + + + | % Basophils | 0.6 | 0.0 - 1.0 % | [facility] | | | | | | [facility] | | | | | | MEDICAL | | | | | | CENTER - | | | | | | LABORATORY | | + + + + + + | % Immature | 0.4Comment: For | 0.0 - 0.4 % | [facility] | | | Granulocyte | patients, use the | | [facility] | | | s | special reference ranges | | MEDICAL | | | | listed below. | | CENTER - | | | | | | LABORATORY | | + + + + + + | Absolute | 2.69 | 1.80 - 8.50 | [facility] | | | Neutrophils | | K/uL | [facility] | | | | | | MEDICAL | | | | | | CENTER - | | | | | | LABORATORY | | + + + + + + | Absolute | 1.74 | 0.60 - 3.20 | [facility] | | | Lymphocytes | | K/uL | [facility] | | | | | | MEDICAL | | | | | | CENTER - | | | | | | LABORATORY | | + + + + + + | Absolute | 0.61 | 0.00 - 1.00 | [facility] | | | Monocytes | | K/uL | [facility] | | | | | | MEDICAL | | | | | | CENTER - | | | | | | LABORATORY | | + + + + + + | Absolute | 0.15 | 0.00 - 0.40 | [facility] | | | Eosinophils | | K/uL | [facility] | | | | | | MEDICAL | | | | | | CENTER - | | | | | | LABORATORY | | + + + + + + | Absolute | 0.03 | 0.00 - 0.10 | [facility] | | | Basophils | | K/uL | [facility] | | | | | | MEDICAL | | | | | | CENTER - | | | | | | LABORATORY | | + + + + + + | Absolute | 0.02Comment: For | 0.00 - 0.03 | [facility] | | | Immature | patients, use | K/uL | [facility] | | | Granulocyte | the special reference | | MEDICAL | | | s | ranges listed below. | | CENTER - | | | | | | LABORATORY | | + + + + + + | % nRBC | 0 | 0 - 2 per 100 | [facility] | | | | | WBCs | [facility] | | | | | | MEDICAL | | | | | | CENTER - | | | | | | LABORATORY | | + + + + + + | Absolute | 0.00 | 0.00 - 0.01 | [facility] | | | nRBC | | K/uL | [facility] | | | | | | MEDICAL | | | | | | CENTER - | | | | | | LABORATORY | | + + + + + + + + | Specimen | + + | Blood | + + + + + | Narrative | Performed At | + + + | IMMATURE GRANULOCYTES - For patients, use the following | [facility] | | reference ranges: Trim. Absolute (K/uL) Percentage (%) | [facility] | | 1st 0.003-0.091 K/uL 0.0-0.9% 2nd 0.007-0.247 K/uL | [facility] CENTER | | 0.1-2.0% 3rd 0.018-0.456 K/uL 0.1-2.0% IMMATURE | - LABORATORY | | GRANULOCYTES - For patients, use the following reference | | | ranges: Trim. Absolute (K/uL) Percentage (%) 1st | | | 0.003-0.091 K/uL 0.0-0.9% 2nd 0.007-0.247 K/uL | | | 0.1-2.0% 3rd 0.018-0.456 K/uL 0.1-2.0% | | + + + + + + + + | Performing | Address | City/State/Zipcode | Phone Number | | Organization | | | | + + + + + | [facility] | [address] | [place] | [phone] | | [facility] | | [address] | | | - LABORATORY | | | | + + + + + Comprehensive Metabolic Panel (02/13/2019 10:23 AM PDT) + +---------+ + + + | Component | Value | Ref Range | Performed | Pathologist | | | | | At | Signature | + +---------+ + + + | Na | 139 | 136 - 145 | [facility] | | | | | mmol/L | [facility] | | | | | | MEDICAL | | | | | | CENTER - | | | | | | LABORATORY | | + +---------+ + + + | K | 4.0 | 3.4 - 5.1 | [facility] | | | | | mmol/L | [facility] | | | | | | MEDICAL | | | | | | CENTER - | | | | | | LABORATORY | | + +---------+ + + + | Cl | 111 (H) | 98 - 107 mmol/L | [facility] | | | | | | [facility] | | | | | | MEDICAL | | | | | | CENTER - | | | | | | LABORATORY | | + +---------+ + + + | CO2 | 25 | 20 - 31 mmol/L | [facility] | | | | | | [facility] | | | | | | MEDICAL | | | | | | CENTER - | | | | | | LABORATORY | | + +---------+ + + + | Anion Gap | 3 | 3 - 16 mmol/L | [facility] | | | | | | [facility] | | | | | | MEDICAL | | | | | | CENTER - | | | | | | LABORATORY | | + +---------+ + + + | Glucose | 83 | 60 - 106 mg/dL | [facility] | | | | | | [facility] | | | | | | MEDICAL | | | | | | CENTER - | | | | | | LABORATORY | | + +---------+ + + + | BUN | 11 | 9 - 23 mg/dL | [facility] | | | | | | [facility] | | | | | | MEDICAL | | | | | | CENTER - | | | | | | LABORATORY | | + +---------+ + + + | Creatinine | 0.77 | 0.55 - 1.02 | [facility] | | | | | mg/dL | [facility] | | | | | | MEDICAL | | | | | | CENTER - | | | | | | LABORATORY | | + +---------+ + + + | eGFR if not | >60 | >=60 | [facility] | | | | | mL/min/1.73m2 | [facility] | | | [facility] | | | MEDICAL | | | | | | CENTER - | | | | | | LABORATORY | | + +---------+ + + + | Calcium | 8.7 | 8.7 - 10.4 | [facility] | | | | | mg/dL | [facility] | | | | | | MEDICAL | | | | | | CENTER - | | | | | | LABORATORY | | + +---------+ + + + | Albumin | 4.2 | 3.2 - 4.8 g/dL | [facility] | | | | | | [facility] | | | | | | MEDICAL | | | | | | CENTER - | | | | | | LABORATORY | | + +---------+ + + + | Bilirubin | 1.1 | 0.3 - 1.2 mg/dL | [facility] | | | Total | | | [facility] | | | | | | MEDICAL | | | | | | CENTER - | | | | | | LABORATORY | | + +---------+ + + + | Total | 6.0 | 5.7 - 8.2 g/dL | [facility] | | | Protein | | | [facility] | | | | | | MEDICAL | | | | | | CENTER - | | | | | | LABORATORY | | + +---------+ + + + | AST | 26 | 0 - 34 U/L | [facility] | | | | | | [facility] | | | | | | MEDICAL | | | | | | CENTER - | | | | | | LABORATORY | | + +---------+ + + + | ALT | 25 | 10 - 49 U/L | [facility] | | | | | | [facility] | | | | | | MEDICAL | | | | | | CENTER - | | | | | | LABORATORY | | + +---------+ + + + | Alkaline | 82 | 46 - 116 U/L | [facility] | | | Phosphatase | | | [facility] | | | | | | MEDICAL | | | | | | CENTER - | | | | | | LABORATORY | | + +---------+ + + + | Globulin | 1.8 (L) | 2.1 - 3.8 g/dL | [facility] | | | | | | [facility] | | | | | | MEDICAL | | | | | | CENTER - | | | | | | LABORATORY | | + +---------+ + + + | Albumin/Simona | 2.3 (H) | 0.8 - 1.9 | [facility] | | | bulin Ratio | | | [facility] | | | | | | MEDICAL | | | | | | CENTER - | | | | | | LABORATORY | | + +---------+ + + + | BUN/Creatin | 14.3 | | [facility] | | | ine Ratio | | | [facility] | | | | | | MEDICAL | | | | | | CENTER - | | | | | | LABORATORY | | + +---------+ + + + + + | Specimen | + + | Blood | + + + + + + + | Performing | Address | City/State/Zipcode | Phone Number | | Organization | | | | + + + + + | [facility] | [address] | [place] | [phone] | | [facility] | | [address] | | | - LABORATORY | | | | + + + + + CBC with Differential (02/13/2019 10:23 AM PDT) + + + + + + | Component | Value | Ref Range | Performed | Pathologist | | | | | At | Signature | + + + + + + | WBC | 8.1 | 4.0 - 11.0 K/uL | [facility] | | | | | | [facility] | | | | | | MEDICAL | | | | | | CENTER - | | | | | | LABORATORY | | + + + + + + | RBC | 4.42 | 3.70 - 5.20 | [facility] | | | | | M/uL | [facility] | | | | | | MEDICAL | | | | | | CENTER - | | | | | | LABORATORY | | + + + + + + | Hemoglobin | 14.5 | 11.5 - 16.0 | [facility] | | | | | g/dL | [facility] | | | | | | MEDICAL | | | | | | CENTER - | | | | | | LABORATORY | | + + + + + + | Hematocrit | 43.0 | 34.0 - 47.0 % | [facility] | | | | | | [facility] | | | | | | MEDICAL | | | | | | CENTER - | | | | | | LABORATORY | | + + + + + + | MCV | 97.3 | 83.0 - 101.0 fL | [facility] | | | | | | [facility] | | | | | | MEDICAL | | | | | | CENTER - | | | | | | LABORATORY | | + + + + + + | MCH | 32.8 | 28.0 - 35.0 pg | [facility] | | | | | | [facility] | | | | | | MEDICAL | | | | | | CENTER - | | | | | | LABORATORY | | + + + + + + | MCHC | 33.7 | 32.0 - 36.0 | [facility] | | | | | g/dL | [facility] | | | | | | MEDICAL | | | | | | CENTER - | | | | | | LABORATORY | | + + + + + + | RDW-CV | 16.6 (H) | <15.0 % | [facility] | | | | | | [facility] | | | | | | MEDICAL | | | | | | CENTER - | | | | | | LABORATORY | | + + + + + + | RDW-SD | 60.3 (H) | 35.1 - 46.3 fL | [facility] | | | | | | [facility] | | | | | | MEDICAL | | | | | | CENTER - | | | | | | LABORATORY | | + + + + + + | Platelet | 292 | 140 - 440 K/uL | [facility] | | | Count | | | [facility] | | | | | | MEDICAL | | | | | | CENTER - | | | | | | LABORATORY | | + + + + + + | MPV | 8.7 | 6.5 - 12.4 fL | [facility] | | | | | | [facility] | | | | | | MEDICAL | | | | | | CENTER - | | | | | | LABORATORY | | + + + + + + | % | 61.1 | 45.0 - 82.0 % | [facility] | | | Neutrophils | | | [facility] | | | | | | MEDICAL | | | | | | CENTER - | | | | | | LABORATORY | | + + + + + + | % | 32.2 | 20.0 - 45.0 % | [facility] | | | Lymphocytes | | | [facility] | | | | | | MEDICAL | | | | | | CENTER - | | | | | | LABORATORY | | + + + + + + | % Monocytes | 4.9 | 4.0 - 12.0 % | [facility] | | | | | | [facility] | | | | | | MEDICAL | | | | | | CENTER - | | | | | | LABORATORY | | + + + + + + | % | 0.4 | 0.0 - 5.0 % | [facility] | | | Eosinophils | | | [facility] | | | | | | MEDICAL | | | | | | CENTER - | | | | | | LABORATORY | | + + + + + + | % Basophils | 1.2 (H) | 0.0 - 1.0 % | [facility] | | | | | | [facility] | | | | | | MEDICAL | | | | | | CENTER - | | | | | | LABORATORY | | + + + + + + | % Immature | 0.2Comment: For | 0.0 - 0.4 % | [facility] | | | Granulocyte | patients, use the | | [facility] | | | s | special reference ranges | | MEDICAL | | | | listed below. | | CENTER - | | | | | | LABORATORY | | + + + + + + | Absolute | 4.97 | 1.80 - 8.50 | [facility] | | | Neutrophils | | K/uL | [facility] | | | | | | MEDICAL | | | | | | CENTER - | | | | | | LABORATORY | | + + + + + + | Absolute | 2.62 | 0.60 - 3.20 | [facility] | | | Lymphocytes | | K/uL | [facility] | | | | | | MEDICAL | | | | | | CENTER - | | | | | | LABORATORY | | + + + + + + | Absolute | 0.40 | 0.00 - 1.00 | [facility] | | | Monocytes | | K/uL | [facility] | | | | | | MEDICAL | | | | | | CENTER - | | | | | | LABORATORY | | + + + + + + | Absolute | 0.03 | 0.00 - 0.40 | [facility] | | | Eosinophils | | K/uL | [facility] | | | | | | MEDICAL | | | | | | CENTER - | | | | | | LABORATORY | | + + + + + + | Absolute | 0.10 | 0.00 - 0.10 | [facility] | | | Basophils | | K/uL | [facility] | | | | | | MEDICAL | | | | | | CENTER - | | | | | | LABORATORY | | + + + + + + | Absolute | 0.02Comment: For | 0.00 - 0.03 | [facility] | | | Immature | patients, use | K/uL | [facility] | | | Granulocyte | the special reference | | MEDICAL | | | s | ranges listed below. | | CENTER - | | | | | | LABORATORY | | + + + + + + | % nRBC | 0 | 0 - 2 per 100 | [facility] | | | | | WBCs | [facility] | | | | | | MEDICAL | | | | | | CENTER - | | | | | | LABORATORY | | + + + + + + | Absolute | 0.00 | 0.00 - 0.01 | [facility] | | | nRBC | | K/uL | [facility] | | | | | | MEDICAL | | | | | | CENTER - | | | | | | LABORATORY | | + + + + + + + + | Specimen | + + | Blood | + + + + + | Narrative | Performed At | + + + | IMMATURE GRANULOCYTES - For patients, use the following | [facility] | | reference ranges: Trim. Absolute (K/uL) Percentage (%) | [facility] | | 1st 0.003-0.091 K/uL 0.0-0.9% 2nd 0.007-0.247 K/uL | [facility] | | 0.1-2.0% 3rd 0.018-0.456 K/uL 0.1-2.0% | - LABORATORY | + + + + + + + + | Performing | Address | City/State/Zipcode | Phone Number | | Organization | | | | + + + + + | [facility] | [address] | [place] | [phone] | | [facility] | | [address] | | | - LABORATORY | | | | + + + + + documented in this encounter Visit Diagnoses + + | Diagnosis | + + | Chronic myeloid leukemia, BCR/ABL-positive, not having achieved remission (HCC) - | | Primary Chronic myeloid leukemia, without mention of having achieved remission | + + | Lumbar radiculopathy Thoracic or lumbosacral neuritis or radiculitis, unspecified | + + | Lumbar spondylosis Lumbosacral spondylosis without myelopathy | + + | Moderate episode of recurrent major depressive disorder (HCC) | + + documented in this encounter
--- OUTSIDE RECORDS SUMMARY | ~2020-03-13 | XMS | Encounter Summary ---
Demographics + + + | Address | [address] | | | [place] [address] | + + + | Home Phone | | + + + | Preferred Language | Unknown | + + + | Marital Status | Single | + + + | Sikh Affiliation | NON | + + + | Race | White | + + + | Ethnic Group | Not or | + + + Author + + + | Author | [facility] | + + + | Organization | [facility] | + + + | Address | Unknown | + + + | Phone | Unavailable | + + + Support + + +---------+ + | Name | Relationship | Address | Phone | + + +---------+ + | Brenda Ybarra | ECON | Unknown | | + + +---------+ + | Trisha Webb | ECON | Unknown | | + + +---------+ + Care Team Providers + +------+ + | Care Bulb Farmworker Name | Role | Phone | + +------+ + | Burton Masters MD | PCP | | + +------+ + Reason for Visit AUTH/CERT +--------+--------+ + + + + | Status | Reason | Specialty | Diagnoses / | Referred By | Referred To | | | | | Procedures | Contact | Contact | +--------+--------+ + + + + | | | | | | | +--------+--------+ + + + + Encounter Details +--------+ + + + + | Date | Type | Department | Care Team | Description | +--------+ + + + + | 01/02/ | Hospital | [facility] [address] | [place], | | | 2019 - | Encounter | [place] Mailcode: | Blekis Fiore MD [address] | | | | | [id number] | [facility] | | | 01/04/ | | [place], | [place], [place] | | | 2019 | | [place] [address] | [address] | | | | | [phone] | [phone] | | | | | | | | +--------+ + + + + Social History + +-------+ +--------+------+ | Tobacco Use | Types | Packs/Day | Years | Date | | | | | Used | | + +-------+ +--------+------+ | Current Every Day | | 1 | 20 | | | Smoker | | | | | + +-------+ +--------+------+ + +------+---+---+ | Smokeless Tobacco: | Chew | | | | Former User | | | | + +------+---+---+ + + | Tobacco Cessation: Ready to Quit: No | + + + + +---------+ + | Alcohol Use | Drinks/Week | oz/Week | Comments | + + +---------+ + | No | | | sober since 12/21/18 | + + +---------+ + + + [...] + + + | Blood Pressure | 126/81 | 01/04/2019 11:16 AM | | | | | PST | | + + + + + | Pulse | 68 | 01/04/2019 11:16 AM | | | | | PST | | + + + + + | Temperature | 36.6 C (97.9 F) | 01/04/2019 11:16 AM | | | | | PST | | + + + + + | Respiratory Rate | 18 | 01/04/2019 11:16 AM | | | | | PST | | + + + + + | Oxygen Saturation | 99% | 01/04/2019 11:16 AM | | | | | PST | | + + + + + | Inhaled Oxygen | - | - | | | Concentration | | | | + + + + + | Weight | 83 kg (182 lb 15.7 | 01/04/2019 3:29 AM | | | | oz) | PST | | + + + + + | Height | - | - | | + + + + + | Body Mass Index | - | - | | + + + + + documented in this encounter Functional Status + + + + | Functional Status | Response | Date of Assessment | + + + + | Because of a physical, mental, or emotional | No | 01/02/2019 | | condition, do you have serious difficulty | | | | doing errands alone such as visiting the | | | | doctor? | | | + + + + + + + + | Cognitive Status | Response | Date of Assessment | + + + + | Because of a physical, mental, or emotional | No | 01/02/2019 | | condition, do you have serious difficulty | | | | concentrating, remembering, or making | | | | decisions? (5 years old or older) | | | + + + + documented as of this encounter Discharge Summaries Nella Rosado NP - 01/04/2019 2:09 PM PST Discharge Summary - Hematologic Malignancies/Chemo Admit [facility] Attending: Belkis Tristan MD [facility] Attending: Dr. Moore PCP: Burton Masters MD Date of Admission: 01/01/19 Date of Discharge: 01/04/19 Hematologic Malignancy: CML Reason for admission: Admitted for work-up and treatment Primary Diagnosis: CML Secondary Diagnosis: Chronic low back pain Depression Alcohol use Tobacco use Nausea Brief Hospital Course: Ashley Webb is a 33 yo woman with a hx of alcohol use disorder (recent inpatient rehab) who presented on 01/02/19 to [facility] ED in [place] with months of galilea ise/fatigue, unintentional weight loss (~40 lbs since late 09/2018), watery diarrhea, found to have WBC 60K, Plt 620s, transferred to [facility] BMT for further evaluation. Peripheral blood and bone marrow studies consistent with CML (BCR-ABL positive 88% by FISH). Dasatinib was pr escribed prior to discharge to continue daily indefinitely with local follow up at [facility]. She will also return to [facility] periodically to follow-up with Dr. Moore, a CML specialist to evaluate response and tolerance. Her hospital course was complicated by nausea/vomiting of unclear etiology, acute on chroni c pain after bone marrow biopsy and management of chronic issues including bipolar d/o, anxi ety, depression, alcohol history and smoking history. See below for brief hospital course ou tline. -Leukocytosis with concern for CML, BCR-ABL positive 88% by FISH 01/02. BMBx 01/03 preliminar y results c/w CML, final report PENDING -Thrombocytosis r/t underlying disease process. No indication for intervention -Nausea/vomiting with unclear etiology that started ~3 months ago. Occasional associated ab dominal pain and cramping. -CT AP 01/03 no acute abnormality in abdomen, +splenomegay and hepatomegaly c/w CML -Ondansetron as needed on discharge -Ranitidine daily -History of Bipolar, Borderline Personality Disorder, Anxiety with panic attacks and PTSD. Recent history of alcohol abuse and rehab. -Continue CUPOLA OPERATOR Wellbutrin -Smoking history: Prior to hospitalization was smoking 2PPD. Daily nicotine patch 21mg +ni corette gum PRN, continue on discharge -Acute on chronic pain: Chronic LBP prior to admission and now with pain at right hip from bone marrow biopsy. -Continue Tylenol and oxycodone PRN (given 4 day supply on discharge 01/04) -Dispo: Discharged with home medications including Dasatinib.Follow up to be scheduled with local oncology center in [place] (Patient's preferred contact number is her cell phone: [phone]). Follow up at [facility] with Dr. Moore in ~ 3 months. Day of Discharge: Subjective: Feeling well this morning. She continues to have occasional nausea that improv es with Zofran. Has low back pain, increased after the bone marrow biopsy yesterday. No othe r new symptoms. Objective: Last Vitals: BP 126/81 (BP Location: Left upper arm, Patient Position: Sitting) | Pulse 68 | Temp 36.6 C (97.9 F) | Resp 18 | Wt 83 kg (182 lb 15.7 oz) | SpO2 99% 24 Hour Vital Min/Max: Systolic (24hrs), Av , Min:117 , Max:126 Diastolic (24hrs), Av, Min:76, Max:87 Pulse Min: 68 Max: 88 Temp Min: 36.5 C (97.7 F) Max: 36.7 C (98.1 F) Resp Min: 16 Max: 18 SpO2 Min: 96 % Max: 100 % Intake/Output Summary (Last 24 hours) at 01/04/19 1735 Last data filed at 01/04/19 1400 Gross per 24 hour Intake 2880 ml Output 3525 ml Net -645 ml Physical Exam: General: This is a female in no acute distress. Sitting in bed, sister at bedsid e HEENT: PERRL. Sclerae anicteric. Mucosa pink and moist without erythema or exudate. Skin: No rash, lesions noted. Chest: Lungs clear to auscultation bilat. CV: RRR, no murmurs. Abdomen: S/NT/ND with NABS. Enlarged spleen palpated near abdominal midline. Extremities: Pulses strong and equal bilaterally. No c/c/e. NeuroPsych: Alert and oriented x 3. Grossly nonfocal exam. CVC: Only PIV in place Recent Labs 01/02/19 0539 01/02/19233601/04/19 0053 NA 142 144 142 K 4.3 4.6 4.1 CL 114* 114* 112* BICARB 23 22 25 BUN 12 13 11 CR 0.88 0.92 0.89 GLU 79 88 82 CA 8.5* 7.9* 8.2* AST 31 24 15 ALT 35 30 28 AP 56 54 54 TBILI 0.4 0.3 0.4 TP 6.5 5.8* 6.3* ALB 3.7 3.4* 3.5 Recent Labs 01/02/1971801/02/19233601/04/19 0053 WBC 67.56* 58.87* 60.26* RBC 4.65 4.17 4.28 HB 14.7 13.1 13.7 HCT 43.8 39.8 41.9 PLT 623* 566* 540* NEUTROPERC 50.0 60.6 50.4 LYMPHPERC 7.4* 6.5* 10.4* MONOPERC 3.0* 0.0* 4.4 BASOPERC 14.7* 12.3* 13.1* EOSPERC 0.7* 2.5 1.7 Meds: Reviewed on rounds, see current MAR for medication list SUMMARY OF PATIENT'S HOSPITALIZATION Past Medical History: -Since late 09/2018, she has been having abdominal pain worse with eating, poor appetite, n ausea, weight loss (220 lb --> 180 lb). Also with watery diarrhea - reports 6-8 (constant, n ot intermittent per patient). She attributed all these symptoms to alcohol use disorder -On 12/03/18, she saw her PCP for this abdominal pain. She reports her PCP ordered labs, for which she did not follow-up to get done. -On 12/13/18, she presented intoxicated with suicidal ideation to the ED. Her las showed WBC 31, plt 610-680s. She was told to follow-up as an outpatient in a week -From 12/20/18-12/26/18, was in detox. Reports her CIWA was initially 30. -On 12/26/18, was transferred to rehab. -On 01/01/19, she went to the ED to follow-up on her WBC (see ED course below) Hospitalization History: Hematology: #Suspected leukemia, hyperleukocytosis, thrombocytosis Pertinent Diagnostics: -PB Flow 01/02 c/w evolving myeloproliferative neoplasm. The mildly increased myeloid nikole t population has an abnormal phenotype: CD7, partial CD9, dim CD11b, CD13, CD34, CD117 and HLA-DR+, supporting the interpretation of a neoplastic process. -PB FISH BCR-ABL with 88% cells positive for BCR-ABL -BM Bx 01/03 c/w CML, however final report is pending -Results: PENDING -Cytogenetics: PENDING -Genetrails: PENDING Treatment: -Chemotherapy regimen: Dasatinib 140mg daily (Day 1=01/04/19) #Leukocytosis, Thrombocytosis r/t disease: -See supportive care #Supportive Care: Growth factor: no growth factors required at this time Labs: Continue to check CBC with diff daily Transfusion parameters: -Transfuse PRBCs for HCT <21% if asymptomatic OR <24% if symptomatic -Transfuse PPH for platelet count <10,000 or sooner PRN s/s bleeding. Cardiovascular: No acute issues Pulmonary: #Smoking history: Prior to hospitalization was smoking 2PPD -Daily nicotine patch 21mg +nicorette gum PRN GI: #Nausea/vomiting with unclear etiology that started ~3 months ago. Occasional associated ab dominal pain and cramping. -CT AP 01/03 no acute abnormality in abdomen, +splenomegay and hepatomegaly c/w CML -Ondansetron as needed on discharge -Ranitidine daily Renal: No acute issues Musculoskeletal: #Acute on chronic pain: Chronic LBP prior to admission and now with pain at right hip from bone marrow biopsy. -Continue Tylenol and oxycodone PRN Neuro/Psych: #History of Bipolar, Borderline Personality Disorder, Anxiety with panic attacks and PTSD. Recent history of alcohol abuse and rehab. -Continue CUPOLA OPERATOR Wellbutrin Infectious Disease: No acute issues #Prophylaxis: Not indicated Fluid/Nutrition/Lytes: #Nutrition: Regular diet Discharge Medications: Medication List START taking these medications dasatinib 100 mg Tab Commonly known as: SPRYCEL Take 1 tablet by mouth once daily. Indications: Chronic Phase Alverda Chromosome Posit rigoberto Chronic Myelocytic Leukemia nicotine 21 mg/24 hr Pt24 Commonly known as: NICOTROL Apply 1 patch to skin once daily. nicotine polacrilex 4 mg Gum Commonly known as: NICORETTE Chew 1 gum slowly by mouth as needed.Chew at least 9 pieces of gum daily to improve chances of quitting. ondansetron 8 mg Tab Commonly known as: ZOFRAN Take 1 tablet by mouth every twelve hours as needed. Indications: Prevent Nausea and Vomiti ng from Cancer Chemotherapy oxyCODONE (immediate release) 5 mg Tab Commonly known as: ROXICODONE Take 2 tablets by mouth every four hours as needed for moderate pain. ranitidine 150 mg Tab Commonly known as: ZANTAC Take 1 tablet by mouth once daily. Indications: heartburn CONTINUE taking these medications buPROPion 100 mg Tab Commonly known as: WELLBUTRIN Take 200 mg by mouth two times daily. Allergies: No Known Allergies Additional Instructions: Condition on Discharge Good Notify [facility] IMMEDIATELY for Notify [facility] Center for Hematological Malignancies triage clinic IMMEDIATELY for the followi ng issues. Call or after hours/holidays and ask to page "BMT p anthony property utilization officer".- Nausea/vomiting that is unresponsive to antiemetic medications- Development of rash- Any evidence of new or increased bleeding Diet Regular Regular diet- There are no restrictions to your diet. You may eat or drink whatever you pr efer, though healthy food choices are recommended. Activity No activity restrictions Follow Up: Local Follow up with [facility] next week and with Dr. Oscar ham [facility] in ~ 3 months Discharging Provider: Nella Rosado NP Discharging Attending: MD Nella Torres NP [facility] [address] [facility] Mailcode: [address] [place], [place] [id number] documented in thi s encounter Medications at Time of Discharge + + + +---------+ + + | Medication | Sig | Dispensed | Refills | Start | End Date | | | | | | Date | | + + + +---------+ + + | buPROPion 100 mg | Take 200 mg by mouth | | 0 | | | | oral tablet | two times daily. | | | | | + + + +---------+ + + | dasatinib 100 mg | Take 1 tablet by | 30 | 5 | 01/05/20 | | | oral | mouth once daily. | tablet | | 19 | | | tabletIndications: | Indications: Chronic | | | | | | chronic phase | Phase Alverda | | | | | | [place] | Chromosome Positive | | | | | | chromosome (+) CML | Chronic Myelocytic | | | | | | | Leukemia | | | | | + + + +---------+ + + | nicotine 21 mg/24 | Apply 1 patch to | 28 | 3 | 01/05/20 | | | hr transdermal patch | skin once daily. | patch | | 19 | | | 24 hour | | | | | | + + + +---------+ + + | nicotine | Chew 1 gum slowly by | 110 | 3 | 01/03/20 | | | polacrilex 4 mg | mouth as | each | | 19 | | | buccal gum | needed.Chew at least | | | | | | | 9 pieces of gum | | | | | | | daily to improve | | | | | | | chances of quitting. | | | | | + + + +---------+ + + | ondansetron 8 mg | Take 1 tablet by | 40 | 3 | 01/03/20 | | | oral | mouth every twelve | tablet | | 19 | | | tabletIndications: | hours as needed. | | | | | | prevention of | Indications: Prevent | | | | | | chemotherapy-induced | Nausea and Vomiting | | | | | | nausea and vomiting | from Cancer | | | | | | | Chemotherapy | | | | | + + + +---------+ + + | oxyCODONE | Take 2 tablets by | 20 | 0 | 01/05/20 | | | (immediate release) | mouth every four | tablet | | 19 | | | 5 mg oral tablet | hours as needed for | | | | | | | moderate pain. | | | | | + + + +---------+ + + | ranitidine 150 mg | Take 1 tablet by | 30 | 5 | 01/03/20 | | | oral | mouth once daily. | tablet | | 19 | | | tabletIndications: | Indications: | | | | | | heartburn | heartburn | | | | | + + + +---------+ + + documented as of this encounter Progress Notes Brisa Yusuf - 01/04/2019 2:09 PM PSTPatient discharged in stable condition and without complaints. AVS and all DC instructions, including updated medication list, reviewed. All pe rsonal belongings and medications were sent home with patient, having assisted them with chiquis ble-checking their room for any items left behind. Patient left unit via wheelchair to car. Her mother and sister were driving her to her yosef e near [place]. Belkis Ibanez MD - 01/04/2019 1:32 PM PST 01/04/2019 Hematologic Malignancies/BMT Attending Inpatient Progress Note Please refer to the HIGH SCHOOL HOME ECONOMICS TEACHER's discharge summary and progress note for today. I have personally i nterviewed, seen and examined the patient in the presence of the HIGH SCHOOL HOME ECONOMICS TEACHER Nella Rosado, and marry bar we have formulated the assessment and plan for today. I have reviewed the current vit als, medications, allergies, and recent labs. Overall assessment: Ashley Webb is a 33 year old female who was admitted on 01/02/2019 with leukocytosis and concern for a new diagnosis of leukemia. Peripheral blood and bone marrow studies c/w CML. Today patient notes continued quite significant pain from bmbx yesterday (has required gaurav ral doses of opiates). Asks very appropriate questions about CML and TKI therapy. Continues with nausea. + constipation - has not had a bowel mvmt since admission Physical examination: Alert, oriented, no acute distress. Oropharynx unremarkable. 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 Patient discussed potential participation in observational cardiac risk trial for CML with study team - has declined participation as she would need to return to [place] for cardiac imaging prior to initiation of TKI. Insurance auth for TKI is in process. I have spoken with Dr Mcmanus about the patient's case at [facility] in [place] - she will establish care with a member of his oup early next week. She will also follow in [place] with Dr Moore. Plan discharge home today. Post BMBx pain. Discussed in detail with patient. She does use hydrocodone / apap as an out patient - is currently out of this medication. (Receives the med monthly from her primary ca re physician.) Will trial use of only oral opiates for bmbx pain this morning and early afte rnoon. Likely will discharge patient home with a limited supply (3d) of oxycodone as expect that the bmbx pain will improve over the next several days Abd discomfort. Add ranitidine (H2 blockers can be used with TKI, as per pharmacy) -Antibiotics - see below -Please refer to orders for additional minor changes in plan. -Continue supportive care including: ------Vitals and laboratory monitoring ------Transfusion support per protocol ------Electrolyte replacement per protocol [facility] DEPARTMENT: [id number]- [facility] FACULTY MPV Place of Service:- Inpatient Date of Service: 01/04/2019 Belkis Tristan MD [address] Mailcode: [address] [place], [place] [id number] ######################################################################## Vitals: Systolic (24hrs), Av , Min:117 , Max:129 Diastolic (24hrs), Av, Min:76, Max:88 Pulse Av Min: 68 Max: 92 Temp Av.6 C (97.9 F) Min: 36.5 C (97.7 F) Max: 36.7 C (98.1 F) Resp Av.4 Min: 16 Max: 18 SpO2 Av.3 % Min: 96 % Max: 100 % Intake/Output Summary (Last 24 hours) at 01/04/19 1333 Last data filed at 01/04/19 1100 Gross per 24 hour Intake 2860 ml Output 3675 ml Net -815 ml Current medications: Current Facility-Administered Medications Medication Dose Route Frequency Last Rate allopurinol (ZYLOPRIM) tablet 300 mg 300 mg oral DAILY buPROPion (WELLBUTRIN) tablet 200 mg 200 mg oral BID nicotine (NICOTROL) 21 mg/24 hr patch 1 patch 1 patch transdermal DAILY senna (SENOKOT) tablet 1-2 tablet 1-2 tablet oral DAILY Allergies: No Known Allergies Laboratory or other studies: Recent Labs 01/02/19 0719 01/02/19 2337 01/04/19 0053 WBC 67.56* 58.87* 60.26* HB 14.7 13.1 13.7 HCT 43.8 39.8 41.9 PLT 623* 566* 540* NEUTROPERC 50.0 60.6 50.4 LYMPHPERC 7.4* 6.5* 10.4* MONOPERC 3.0* 0.0* 4.4 BASOPERC 14.7* 12.3* 13.1* EOSPERC 0.7* 2.5 1.7 Recent Labs 01/02/19 0539 01/02/19233601/04/19 0053 NA 142 144 142 K 4.3 4.6 4.1 CL 114* 114* 112* BICARB 23 22 25 BUN 12 13 11 CR 0.88 0.92 0.89 CA 8.5* 7.9* 8.2* MG 2.1 2.2 2.1 PO4 4.0 3.7 4.0 AST 31 24 15 ALT 35 30 28 TBILI 0.4 0.3 0.4 AP 56 54 54 ALB 3.7 3.4* 3.5 TP 6.5 5.8* 6.3* No results found for: CULTURE Lab Results Component Value Date APTT 31.1 01/02/2019 FIBRINOGEN 301 01/02/2019 Briana Ibanez MD - 01/03/2019 4:03 PM PSTFormatting of this note might be different from the orig inal. 01/03/2019 Hematologic Malignancies/BMT Attending Inpatient Progress Note Please refer to the HIGH SCHOOL HOME E[employer]OMICS TEACHER's progress note for today. I have personally interviewed, seen and e xamined the patient in the presence of the HIGH SCHO[employer] HOME ECONOMICS TEACHER Nella Rosado, and together we have formula keily the assessment and plan for today. I have reviewed the current vitals, medications, naye rgies, and recent labs. Overall assessment: Ashley Webb is a 33 year old female who was admitted on 01/02/2019 with leukocytosis and concern for a new diagnosis of leukemia. Also with a significant history of EtOH abuse as we ll as several mental health diagnoses. Today patient reports that she is physically feeling okay. Stomach is still bothersome - na usea requiring both Zofran and Compazine. No other specific complaints offered. Prelim peripheral blood FISH: BCR-ABL pos Physical examination: Alert, oriented, no acute distress. Oropharynx unremarkable. RRR CTAB Soft, NT, ND, NABS Nonfocal neuro exam No edema in LE No rash Peripheral iv in place Patients Hospital Problem List: Active Hospital Problems 1) Leukocytosis 2) Alcohol use 3) Tobacco abuse 4) Chronic myeloid leukemia (CML), BCR/ABL-positive (HCC) 5) Nausea Plan: -Peripheral blood BCR-ABL positive. Per pathology, peripheral blood cell morphology difficu lt to interpret - question of if some of the cell forms were atypical appearing blasts or no t. Thus bone marrow biopsy performed today. Prelim report of touch prep c/w CML, no evidence of acute myeloid features noted. - Spleen enlarged on CT abdomen (though unable to easily palpate on exam) Bhupinder score intermediate risk disease. Discussed choice of TKI with Zoey Moore MD - suggested Dasatinib 100mg daily. Will investi gate insurance coverage. - Abdominal discomfort of unclear etiology: ? Due to splenomegaly vs gastritis associated w ith EtOH use. Will check for h pylori as well. -Antibiotics - see below. -Please refer to orders for additional minor changes in plan. -Continue supportive care including: ------Vitals and laboratory monitoring ------Transfusion support per protocol ------Electrolyte replacement per protocol [facility] DEPARTMENT: [id number]- [facility] FACULT[facility] MP Place of Service:- Inpatient Date of Service: 01/03/2019 Belkis Tristan MD [facility] [address] [facility] Mailcode: [facility] [place] [address] ######################################################################## Vitals: Systolic (24hrs), Av , Min:117 , Max:134 Diastolic (24hrs), Av, Min:64, Max:90 Pulse Av.3 Min: 65 Max: 95 Temp Av.7 C (98 F) Min: 36.4 C (97.52 F) Max: 36.8 C (98.2 F) Resp Av.1 Min: 16 Max: 18 SpO2 Av.6 % Min: 97 % Max: 99 % Intake/Output Summary (Last 24 hours) at 01/03/19 1604 Last data filed at 01/03/19 1300 Gross per 24 hour Intake 3870.01 ml Output 4250 ml Net -379.99 ml Current medications: Current Facility-Administered Medications Medication Dose Route Frequency Last Rate allopurinol (ZYLOPRIM) tablet 300 mg 300 mg oral DAILY buPROPion (WELLBUTRIN) tablet 200 mg 200 mg oral BID nicotine (NICOTROL) 21 mg/24 hr patch 1 patch 1 patch transdermal DAILY Allergies: No Known Allergies Laboratory or other studies: Recent Labs 01/02/19 0539 01/02/1919 01/02/19 2337 WBC 65.07* 67.56* 58.87* HB 14.0 14.7 13.1 HCT 42.8 43.8 39.8 PLT 604* 623* 566* NEUTROPERC 55.1 50.0 60.6 LYMPHPERC 4.2* 7.4* 6.5* MONOPERC 1.7* 3.0* 0.0* BASOPERC 5.9* 14.7* 12.3* EOSPERC 0.9* 0.7* 2.5 Recent Labs 01/02/19 0539 01/02/19 2337 NA 142 144 K 4.3 4.6 CL 114* 114* BICARB 23 22 BUN 12 13 CR 0.88 0.92 CA 8.5* 7.9* MG 2.1 2.2 PO4 4.0 3.7 AST 31 24 ALT 35 30 TBILI 0.4 0.3 AP 56 54 ALB 3.7 3.4* TP 6.5 5.8* No results found for: CULTURE Lab Results Component Value Date APTT 31.1 01/02/2019 FIBRINOGEN 301 01/02/2019 etersonLoydaej M, HIGH [employer]CHOOL HOME E[employer]OMICS TEACHER - 01/03/2019 9:04 AM PSTFormatting of this note might be different from the origin al. Daily NPP Note - Hematologic Malignancies/Chemo Admit [facility] for Hematologic Malignancies Attending: Belkis Tristan MD PCP: Burton Masters MD Date of Admission: 01/01/19 Hematologic Malignancy: leukocytosis with concern for CML Reason for admission: Admit for work-up and treatment ID: Ashley Webb is a 33 yo woman with a hx of alcohol use disorder (recent inpatient svitlana ab) who [facility] [facility] ED in [place] with months of malaise/fatigue, unintentional weight loss (~40 lbs since late 09/2018), watery diarrhea, fo und to have WBC 60K, Plt 620s, transferred to [facility] BMT for further evaluation. 24 Hour Events/Current Daily Plan: -Leukocytosis with concern for CML, BCR-ABL positive 88% by FISH 01/02. -BMBx 01/03 PENDING -Thrombocytosis r/t underlying disease process. Standard transfusion parameters. -Risk for TLS: Uric acid and LDH decreasing today. Continue IVF + allopurinol -Nausea/vomiting with unclear etiology that started ~3 months ago. Occasional associated ab dominal pain and cramping. -CT AP 01/03 PENDING -H.Pylori to r/o ulcer 01/03 PENDING -Ondansetron + prochlorperazine as needed -History of Bipolar, Borderline Personality Disorder, Anxiety with panic attacks and PTSD. Recent history of alcohol abuse and rehab. 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 Daily nicotine patch 21mg +ni corette gum PRN -Acute on chronic pain: Chronic LBP prior to admission and now with pain at right hip from bone marrow biopsy. -Continue Tylenol and oxycodone PRN Subjective: Feeling well this morning. No new symptoms overnight. Was able to eat breakfas t this morning, but is not able to eat as much because she gets full easily. She states she is able to eat more with the zofran that is available. Objective: Last Vitals: BP 119/76 (BP Location: Left upper arm, Patient Position: Lying on back) | Pu lse 84 | Temp 36.4 C (97.52 F) | Resp 18 | Wt 83.1 kg (183 lb 3.2 oz) | SpO2 97% 24 Hour Vital Min/Max: Systolic (24hrs), Av , Min:117 , Max:124 Diastolic (24hrs), Av, Min:64, Max:90 Pulse Min: 65 Max: 92 Temp Min: 36.4 C (97.52 F) Max: 36.8 C (98.2 F) Resp Min: 16 Max: 18 SpO2 Min: 97 % Max: 98 % Intake/Output Summary (Last 24 hours) at 01/03/19 0904 Last data filed at 01/03/19 0641 Gross per 24 hour Intake 3641.67 ml Output 2975 ml Net 666.67 ml Physical Exam: General: This is a female in no acute distress. Sitting upright in bed. HEENT: PERRL. Sclerae anicteric. Mucosa pink and moist without erythema or exudate. Skin: No rash, lesions noted. Chest: Lungs clear to auscultation bilat. CV: RRR, no murmurs. Abdomen: S/NT/ND with NABS. No HSM appreciated. Extremities: Pulses strong and equal bilaterally. No c/c/e. NeuroPsych: Alert and oriented x 3. Grossly nonfocal exam. CVC: Only PIV in place Recent Labs 01/02/19 0539 01/02/19 233 NA 142 144 K 4.3 4.6 CL 114* 114* BICARB 23 22 BUN 12 13 CR 0.88 0.92 GLU 79 88 CA 8.5* 7.9* AST 31 24 ALT 35 30 AP 56 54 TBILI 0.4 0.3 TP 6.5 5.8* ALB 3.7 3.4* Recent Labs 01/02/19 0539 01/02/19 0719 01/02/19 2337 WBC 65.07* 67.56* 58.87* RBC 4.54 4.65 4.17 HB 14.0 14.7 13.1 HCT 42.8 43.8 39.8 PLT 604* 623* 566* NEUTROPERC 55.1 50.0 60.6 LYMPHPERC 4.2* 7.4* 6.5* MONOPERC 1.7* 3.0* 0.0* BASOPERC 5.9* 14.7* 12.3* EOSPERC 0.9* 0.7* 2.5 Meds: Reviewed on rounds, see current MAR for medication list SUMMARY OF PATIENT'S HOSPITALIZATION Past Medical History: -Since late 09/2018, she has been having abdominal pain worse with eating, poor appetite, n ausea, weight loss (220 lb --> 180 lb). Also with watery diarrhea - reports 6-8 (constant, n ot intermittent per patient). She attributed all these symptoms to alcohol use disorder -On 12/03/18, she saw her PCP for this abdominal pain. She reports her PCP ordered labs, for which she did not follow-up to get done. -On 12/13/18, she presented intoxicated with suicidal ideation to the ED. Her las showed WBC 31, plt 610-680s. She was told to follow-up as an outpatient in a week -From 12/20/18-12/26/18, was in detox. Reports her CIWA was initially 30. -On 12/26/18, was transferred to rehab. -On 01/01/19, she went to the ED to follow-up on her WBC (see ED course below) Hospitalization History: Hematology: #Suspected leukemia, hyperleukocytosis, thrombocytosis Pertinent Diagnostics: -PB Flow 01/02 PENDING -PB FISH BCR-ABL with 88% cells positive for BCR-ABL -BM Bx 01/03 -Results: PENDING -Cytogenetics: PENDING -Genetrails: PENDING Treatment: -Chemotherapy regimen: TBD #Leukocytosis, Thrombocytosis r/t disease: -See supportive care #Supportive Care: Growth factor: no growth factors required at this time Labs: Continue to check CBC with diff daily Transfusion parameters: -Transfuse PRBCs for HCT <21% if asymptomatic OR <24% if symptomatic -Transfuse PPH for platelet count <10,000 or sooner PRN s/s bleeding. Cardiovascular: No acute issues Pulmonary: #Smoking history: Prior to hospitalization was smoking 2PPD -Daily nicotine patch 21mg +nicorette gum PRN GI: #Nausea/vomiting with unclear etiology that started ~3 months ago. Occasional associated ab dominal pain and cramping. -CT AP 01/03 PENDING -H.Pylori to r/o ulcer 01/03 PENDING -Ondansetron + prochlorperazine as needed Renal: No acute issues Musculoskeletal: #Acute on chronic pain: Chronic LBP prior to admission and now with pain at right hip from bone marrow biopsy. -Continue Tylenol and oxycodone PRN Neuro/Psych: #History of Bipolar, Borderline Personality Disorder, Anxiety with panic attacks and PTSD. Recent history of alcohol abuse and rehab. 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 Disposition: Admitted for work-up and treatment, dispo depending on final diagnosis Nella Rosado NP [address] Mailcode: [id number] [place] [address] Jayla Ibanez MD - 01/02/2019 4:55 PM PSTFormatting of this note might be different from the [facility] for Hematologic Malignancies Hematology Attending Inpatient Progress Note 01/02/2019 Interval history/overnight events: Ashley Webb is a 33yo female admitted to this hospital in transfer early this AM after s he was found to have progressive leukocytosis and thrombocytosis on CBC. History is as docum ented by Dr. Reyna. Briefly, patient noted to have an abnormal WBC and thrombocytosis on CBC drawn 12/13/18 after patient presented to the ED while intoxicated and with a possible suicidal gesture. (WBC 30 k, Plt 600s). Follow up labs in 1 week was recommended. In the interval patient was admitted to EtOH detox - she then left detox to go to an inpatient EtOH rehab program. Follow up lab s were drawn at the [place] ED yesterday evening, WBC noted to be 60k, plt 620s. Patient reports that she has felt poorly for at least 2 months, with symptoms of abdominal pain (nausea as well as cramping - she has been worried that she has Crohn's disease), unint entional weight loss (reports 40 - 50# weight loss in the past 2 mo - attributes this to the abd symptoms as well as a poor appetite). Also notes diffuse muscle aches, chronic low back pain (attributed to L2-S1 degenerative disc disease). Denies fevers, notes some sweats. + a nxiety. Patient also reports a psychiatric history notable for anxiety, depression, borderline pers onality disorder. She currently takes only Wellbutrin but was previously maintained on Wellb utrin, Depakote, Gabapentin, Flexeril, Xanax (0.25 - 0.5 prn / 20 tabs prescribed per month) , hydrocodone 5/325 tid. This morning patient was with her sister in the hospital room. She reported that she was ph ysically feeling okay, but was visibly upset as she was concerned about her children at home in her absence. Last Vitals: BP 117/90 (BP Location: Left upper arm, Patient Position: Sitting) | Pulse 81 | Temp 36.6 C (97.9 F) | Resp 18 | Wt 82.7 kg (182 lb 5.1 oz) | SpO2 97% 24 Hour Vital Min/Max: Systolic (24hrs), Av , Min:117 , Max:137 Diastolic (24hrs), Av, Min:77, Max:99 Pulse Min: 72 Max: 98 Temp Min: 36.3 C (97.3 F) Max: 36.8 C (98.2 F) Resp Min: 16 Max: 18 SpO2 Min: 97 % Max: 100 % Intake/Output Summary (Last 24 hours) at 01/02/19 1656 Last data filed at 01/02/19 1600 Gross per 24 hour Intake 1418.33 ml Output 375 ml Net 1043.33 ml Physical examination: Pertinent positive findings include: Conversational, relatively good historian. Linear thought process MM moist, oropharynx clear RRR nl S1 S2 Clear lung alvarez with good air mvmt Soft abd + bs. I do not appreciate splenomegaly. ? Liver edge palpable Warm ext, no edema + tenderness to palpation sacral region Recent Labs 01/02/19 0539 NA 142 K 4.3 CL 114* BICARB 23 BUN 12 CR 0.88 GLU 79 CA 8.5* AST 31 ALT 35 AP 56 TBILI 0.4 TP 6.5 ALB 3.7 Recent Labs 01/02/19 0539 01/02/19 0719 WBC 65.07* 67.56* RBC 4.54 4.65 HB 14.0 14.7 HCT 42.8 43.8 PLT 604* 623* NEUTROPERC 55.1 50.0 LYMPHPERC 4.2* 7.4* MONOPERC 1.7* 3.0* BASOPERC 5.9* 14.7* EOSPERC 0.9* 0.7* Lab Results Component Value Date APTT 31.1 01/02/2019 FIBRINOGEN 301 01/02/2019 Ashley Webb is a 33 y.o. female with leukocytosis and thrombocytosis admitted for expedi keily workup. Active Problems: Leukocytosis Alcohol use Tobacco abuse Plans include: 1. Peripheral blood flow cytometry and BCR/ABL pending. Given basophilia, clinical concern for CML. If peripheral studies not illustrative will proceed with bone marrow evaluation. 2. Prior significant EtOH use history. Last drink was 15 days ago. 3. Tobacco use, Patient given nicotine replacement therapy. 4. SW assistance greatly appreciated - patient concerned about her young children who are c urrently staying with patient's and his friend Continue supportive care including: ------Vitals and laboratory monitoring ------Transfusion support per protocol ------Electrolyte replacement per protocol ------Antibiotic prophylaxis Belkis Tristan MD [place] [id number] [facility] Mailcode: [id number] [place] [address] documented in t his encounter Plan of Treatment +--------+---------+ + + + | Date | Type | Specialty | Care Team | Description | +--------+---------+ + + + | 06/15/ | Lab | Phlebotomy | | | | 2019 | | | | | +--------+---------+ + + + | 06/15/ | Office | Hematology | [place], | | | 2019 | Visit | Malignancy | [address] | | | | | | [place], [place] | | | | | | [address] | | | | | | [phone] | | | | | | | | +--------+---------+ + + + + +---------+--------+ + + | Name | Type | Priori | Associated Diagnoses | Order Schedule | | | | ty | | | + +---------+--------+ + + | X-RAY CHEST 2 VIEW | Imaging | Routin | | As Needed for 1 | | | | e | | Occurrences starting | | | | | | 01/02/2019 | + +---------+--------+ + + | UA, DIPSTICK ONLY | Lab | Routin | | As Needed for 1 | | | | e | | Occurrences starting | | | | | | 01/02/2019 | + +---------+--------+ + + | URINE, MICROSCOPIC | Lab | Routin | | As Needed for 1 | | EXAM | | e | | Occurrences starting | | | | | | 01/02/2019 | + +---------+--------+ + + | CULTURE, URINE BACTI | Lab | Routin | | As Needed for 1 | | | | e | | Occurrences starting | | | | | | 01/02/2019 | + +---------+--------+ + + | CULTURE, SPUTUM | Lab | Routin | | As Needed for 1 | | | | e | | Occurrences starting | | | | | | 01/02/2019 | + +---------+--------+ + + | URINE, MICROSCOPIC | Lab | Routin | | As Needed for 1 | | EXAM | | e | | Occurrences starting | | | | | | 01/02/2019 | + +---------+--------+ + + | H. PYLORI AG, FECAL | Lab | Routin | | Collect Now for 1 | | EIA | | e | | Occurrences starting | | | | | | 01/03/2019 until | | | | | | 01/03/2019 | + +---------+--------+ + + documented as of this encounter Procedures + +--------+ + + + | Procedure Name | Priori | Date/Time | Associated Diagnosis | Comments | | | ty | | | | + +--------+ + + + | RBC MORPHOLOGY | Routin | 01/04/2019 | | Results for this | | | e | 12:53 AM | | procedure are in the | | | | PST | | results section. | + +--------+ + + + | CBC AND AUTO DIFF | Routin | 01/04/2019 | | Results for this | | | e | 12:53 AM | | procedure are in the | | | | PST | | results section. | + +--------+ + + + | MANUAL DIFFERENTIAL | Routin | 01/04/2019 | | Results for this | | | e | 12:53 AM | | procedure are in the | | | | PST | | results section. | + +--------+ + + + | CBC, WITH | Routin | 01/04/2019 | | Results for this | | DIFFERENTIAL | e | 12:53 AM | | procedure are in the | | | | PST | | results section. | + +--------+ + + + | COMPLETE METABOLIC | Routin | 01/04/2019 | | Results for this | | SET | e | 12:53 AM | | procedure are in the | | (NA,K,CL,CO2,BUN,CRE | | PST | | results section. | | AT,GLUC,CA,AST,ALT,B | | | | | | ANTONIO TOTAL,ALK | | | | | | PHOS,ALB,PROT TOTAL) | | | | | + +--------+ + + + | PHOSPHORUS, PLASMA | Routin | 01/04/2019 | | Results for this | | | e | 12:53 AM | | procedure are in the | | | | PST | | results section. | + +--------+ + + + | MAGNESIUM, PLASMA | Routin | 01/04/2019 | | Results for this | | | e | 12:53 AM | | procedure are in the | | | | PST | | results section. | + +--------+ + + + | CT ABDOMEN AND | Routin | 01/03/2019 | | Results for this | | PELVIS W IV CONTRAST | e | 2:45 PM | | procedure are in the | | | | PST | | results section. | + +--------+ + + + | PROCEDURE NOTE | Routin | 01/03/2019 | | Results for this | | | e | 12:46 PM | | procedure are in the | | | | PST | | results section. | + +--------+ + + + | FLT3 ITD, BONE | Routin | 01/03/2019 | | Results for this | | MARROW | e | 11:23 AM | | procedure are in the | | | | PST | | results section. | + +--------+ + + + | COMPREHENSIVE HEME | Routin | 01/03/2019 | | Results for this | | PANEL SEQ, BONE | e | 11:23 AM | | procedure are in the | | MARROW | | PST | | results section. | + +--------+ + + + | GENETRAILS | Routin | 01/03/2019 | | Results for this | | COMPREHENSIVE HEME | e | 11:23 AM | | procedure are in the | | PANEL, BONE MARROW | | PST | | results section. | + +--------+ + + + | MDS/FA/HES FISH | Routin | 01/03/2019 | | Results for this | | PANEL, BONE | e | 11:23 AM | | procedure are in the | | MARROW/CORE | | PST | | results section. | + +--------+ + + + | AML FISH PANEL, BONE | Routin | 01/03/2019 | | Results for this | | MARROW/CORE | e | 11:23 AM | | procedure are in the | | | | PST | | results section. | + +--------+ + + + | CYTOGENETICS BONE | Urgent | 01/03/2019 | | Results for this | | MARROW CHROMOSOME | | 11:23 AM | | procedure are in the | | ANALYSIS (W/FISH) | | PST | | results section. | + +--------+ + + + | RBC MORPHOLOGY | Routin | 01/02/2019 | | Results for this | | | e | 11:37 PM | | procedure are in the | | | | PST | | results section. | + +--------+ + + + | CBC AND AUTO DIFF | Routin | 01/02/2019 | | Results for this | | | e | 11:37 PM | | procedure are in the | | | | PST | | results section. | + +--------+ + + + | MANUAL DIFFERENTIAL | Routin | 01/02/2019 | | Results for this | | | e | 11:37 PM | | procedure are in the | | | | PST | | results section. | + +--------+ + + + | LEUKEMIA/LYMPHOMA | Urgent | 01/02/2019 | | Results for this | | MARKERS - BONE | | 11:37 PM | | procedure are in the | | MARROW | | PST | | results section. | + +--------+ + + + | CBC, WITH | Routin | 01/02/2019 | | Results for this | | DIFFERENTIAL | e | 11:37 PM | | procedure are in the | | | | PST | | results section. | + +--------+ + + + | COMPLETE METABOLIC | Routin | 01/02/2019 | | Results for this | | SET | e | 11:37 PM | | procedure are in the | | (NA,K,CL,CO2,BUN,CRE | | PST | | results section. | | AT,GLUC,CA,AST,ALT,B | | | | | | ANTONIO TOTAL,ALK | | | | | | PHOS,ALB,PROT TOTAL) | | | | | + +--------+ + + + | PHOSPHORUS, PLASMA | Routin | 01/02/2019 | | Results for this | | | e | 11:37 PM | | procedure are in the | | | | PST | | results section. | + +--------+ + + + | URIC ACID, PLASMA | Routin | 01/02/2019 | | Results for this | | | e | 11:37 PM | | procedure are in the | | | | PST | | results section. | + +--------+ + + + | MAGNESIUM, PLASMA | Routin | 01/02/2019 | | Results for this | | | e | 11:37 PM | | procedure are in the | | | | PST | | results section. | + +--------+ + + + | LDH TOTAL, PLASMA | Routin | 01/02/2019 | | Results for this | | | e | 11:37 PM | | procedure are in the | | | | PST | | results section. | + +--------+ + + + | VRE (PINA) BY PCR | Routin | 01/02/2019 | | Results for this | | | e | 6:42 PM | | procedure are in the | | | | PST | | results section. | + +--------+ + + + | 12 LEAD ECG | Routin | 01/02/2019 | | Results for this | | | e | 8:53 AM | | procedure are in the | | | | PST | | results section. | + +--------+ + + + | AML FISH PANEL | Extrem | 01/02/2019 | | Results for this | | | e | 7:19 AM | | procedure are in the | | | Emerge | PST | | results section. | | | ncy | | | | + +--------+ + + + | RBC MORPHOLOGY | Routin | 01/02/2019 | | Results for this | | | e | 7:19 AM | | procedure are in the | | | | PST | | results section. | + +--------+ + + + | CBC AND AUTO DIFF | Routin | 01/02/2019 | | Results for this | | | e | 7:19 AM | | procedure are in the | | | | PST | | results section. | + +--------+ + + + | MANUAL DIFFERENTIAL | Routin | 01/02/2019 | | Results for this | | | e | 7:19 AM | | procedure are in the | | | | PST | | results section. | + +--------+ + + + | LEUKEMIA/LYMPHOMA | Urgent | 01/02/2019 | | Results for this | | MARKER - BLOOD | | 7:19 AM | | procedure are in the | | | | PST | | results section. | + +--------+ + + + | FISH, MOLECULAR | Extrem | 01/02/2019 | | Results for this | | PROBE - CYTOGENETICS | e | 7:19 AM | | procedure are in the | | | Emerge | PST | | results section. | | | ncy | | | | + +--------+ + + + | CBC, WITH | Routin | 01/02/2019 | | Results for this | | DIFFERENTIAL | e | 7:19 AM | | procedure are in the | | | | PST | | results section. | + +--------+ + + + | CONFIRMATORY ABO/RH | Routin | 01/02/2019 | | Results for this | | | e | 5:40 AM | | procedure are in the | | | | PST | | results section. | + +--------+ + + + | ANTIBODY SCREEN | Routin | 01/02/2019 | | Results for this | | | e | 5:40 AM | | procedure are in the | | | | PST | | results section. | + +--------+ + + + | TYPE AND SCREEN | Routin | 01/02/2019 | | Results for this | | | e | 5:40 AM | | procedure are in the | | | | PST | | results section. | + +--------+ + + + | ABO & RH TYPE | Routin | 01/02/2019 | | Results for this | | | e | 5:40 AM | | procedure are in the | | | | PST | | results section. | + +--------+ + + + | RBC MORPHOLOGY | Routin | 01/02/2019 | | Results for this | | | e | 5:39 AM | | procedure are in the | | | | PST | | results section. | + +--------+ + + + | CBC AND AUTO DIFF | Routin | 01/02/2019 | | Results for this | | | e | 5:39 AM | | procedure are in the | | | | PST | | results section. | + +--------+ + + + | MANUAL DIFFERENTIAL | Routin | 01/02/2019 | | Results for this | | | e | 5:39 AM | | procedure are in the | | | | PST | | results section. | + +--------+ + + + | CBC, WITH | Routin | 01/02/2019 | | Results for this | | DIFFERENTIAL | e | 5:39 AM | | procedure are in the | | | | PST | | results section. | + +--------+ + + + | COMPLETE METABOLIC | Routin | 01/02/2019 | | Results for this | | SET | e | 5:39 AM | | procedure are in the | | (NA,K,CL,CO2,BUN,CRE | | PST | | results section. | | AT,GLUC,CA,AST,ALT,B | | | | | | ANTONIO TOTAL,ALK | | | | | | PHOS,ALB,PROT TOTAL) | | | | | + +--------+ + + + | COAGULOPATHY PANEL | Routin | 01/02/2019 | | Results for this | | (INR,APTT,FIBRINOGEN | e | 5:39 AM | | procedure are in the | | ) | | PST | | results section. | + +--------+ + + + | PHOSPHORUS, PLASMA | Routin | 01/02/2019 | | Results for this | | | e | 5:39 AM | | procedure are in the | | | | PST | | results section. | + +--------+ + + + | BILIRUBIN DIRECT | Routin | 01/02/2019 | | Results for this | | | e | 5:39 AM | | procedure are in the | | | | PST | | results section. | + +--------+ + + + | URIC ACID, PLASMA | Routin | 01/02/2019 | | Results for this | | | e | 5:39 AM | | procedure are in the | | | | PST | | results section. | + +--------+ + + + | MAGNESIUM, PLASMA | Routin | 01/02/2019 | | Results for this | | | e | 5:39 AM | | procedure are in the | | | | PST | | results section. | + +--------+ + + + | LDH TOTAL, PLASMA | Routin | 01/02/2019 | | Results for this | | | e | 5:39 AM | | procedure are in the | | | | PST | | results section. | + +--------+ + + + documented in this encounter Results RBC MORPHOLOGY (01/04/2019 12:53 AM PST) + + + + + + | Component | Value | Ref Range | Performed | Pathologist | | | | | At | Signature | + + + + + + | ANISOCYTOSI | 1+(10-25cells/HPF) | | [facility] | | | S | | | LABORATORY | | | | | | SERVICES, | | | | | | CORE | | + + + + + + | MACROCYTOSI | 1+(10-25cells/HPF) | | [facility] | | | S | | | LABORATORY | | | | | | SERVICES, | | | | | | CORE | | + + + + + + + + | Specimen | + + | Blood - Blood | | (substance) | + + + + + + + | Performing | Address | City/State/Zipcode | Phone Number | | Organization | | | | + + + + + | [facility] | [address] | [place] [address] | | | SERVICES, CORE | [address] | | | + + + + + MANUAL DIFFERENTIAL (01/04/2019 12:53 AM PST) + + + + + + | Component | Value | Ref Range | Performed | Pathologist | | | | | At | Signature | + + + + + + | NEUTROPHIL | 50.4 | 50.0 - 70.0 % | [facility] | | | % | | | LABORATORY | | | | | | SERVICES, | | | | | | CORE | | + + + + + + | LYMPHOCYTE | 10.4 (L) | 18.0 - 42.0 % | [facility] | | | % | | | LABORATORY | | | | | | SERVICES, | | | | | | CORE | | + + + + + + | MONOCYTE % | 4.4 | 3.5 - 9.0 % | [facility] | | | | | | LABORATORY | | | | | | SERVICES, | | | | | | CORE | | + + + + + + | EOSINOPHIL | 1.7 | 1.0 - 3.0 % | [facility] | | | % | | | LABORATORY | | | | | | SERVICES, | | | | | | CORE | | + + + + + + | BASOPHIL % | 13.1 (H) | 0.0 - 2.0 % | [facility] | | | | | | LABORATORY | | | | | | SERVICES, | | | | | | CORE | | + + + + + + | IG% | 20.0 (H)Comment: | 0.0 - 1.0 % | [facility] | | | | Increased immature | | LABORATORY | | | | granulocytes(IG)define a | | SERVICES, | | | | left shift.IGs include | | CORE | | | | metamyelocytes, | | | | | | myelocytes and | | | | | | promyelocytes. Bands are | | | | | | included in the | | | | | | neutrophil count, not | | | | | | the IG count, except in | | | | | | neonates <=60 days old | | | | | | where bands are reported | | | | | | in a manual diff. | | | | + + + + + + | NEUTROPHIL | 30.37 (H) | 1.80 - 7.70 | [facility] | | | # | | K/cu mm | LABORATORY | | | | | | SERVICES, | | | | | | CORE | | + + + + + + | LYMPHOCYTE | 6.27 (H) | 1.00 - 4.80 | [facility] | | | # | | K/cu mm | LABORATORY | | | | | | SERVICES, | | | | | | CORE | | + + + + + + | MONOCYTE # | 2.65 (H) | 0.10 - 0.90 | [facility] | | | | | K/cu mm | LABORATORY | | | | | | SERVICES, | | | | | | CORE | | + + + + + + | EOSINOPHIL | 1.02 (H) | 0.00 - 0.50 | [facility] | | | # | | K/cu mm | LABORATORY | | | | | | SERVICES, | | | | | | CORE | | + + + + + + | BASOPHIL # | 7.89 (H) | 0.00 - 0.10 | [facility] | | | | | K/cu mm | LABORATORY | | | | | | SERVICES, | | | | | | CORE | | + + + + + + | IG# | 12.05 (H) | 0.00 - 0.10 | [facility] | | | | | K/cu mm | LABORATORY | | | | | | SERVICES, | | | | | | CORE | | + + + + + + + + | Specimen | + + | Blood - Blood | | (substance) | + + + + + | Narrative | Performed At | + + + | New pediatric reference ranges for Lymphocyte % in effect April 19, | [facility] | | 2018. Increased immature granulocytes(IG)define a left shift.IGs | LABORATORY | | include metamyelocytes, myelocytes and promyelocytes. Bands are | SERVICES, CORE | | included in the neutrophil count, not the IG count, except in neonates | | | <=60 days old where bands are reported in a manual diff. | | + + + + + + + + | Performing | Address | City/State/Zipcode | Phone Number | | Organization | | | | + + + + + | [facility] | [address] | [place] [address] | | | SERVICES, CORE | [address] | | | + + + + + CBC AND AUTO DIFF (01/04/2019 12:53 AM PST) + + + + + + | Component | Value | Ref Range | Performed | Pathologist | | | | | At | Signature | + + + + + + | WHITE CELL | 60.26 (H) | 3.50 - 10.80 | [facility] | | | COUNT | | K/cu mm | LABORATORY | | | | | | SERVICES, | | | | | | CORE | | + + + + + + | RED CELL | 4.28 | 4.00 - 5.20 | [facility] | | | COUNT | | M/cu mm | LABORATORY | | | | | | SERVICES, | | | | | | CORE | | + + + + + + | HEMOGLOBIN | 13.7 | 12.0 - 16.0 | [facility] | | | | | g/dL | LABORATORY | | | | | | SERVICES, | | | | | | CORE | | + + + + + + | HEMATOCRIT | 41.9 | 36.0 - 46.0 % | [facility] | | | | | | LABORATORY | | | | | | SERVICES, | | | | | | CORE | | + + + + + + | MCV | 97.9 | 80.0 - 100.0 fL | [facility] | | | | | | LABORATORY | | | | | | SERVICES, | | | | | | CORE | | + + + + + + | MCHC | 32.7 | 32.0 - 36.0 | [facility] | | | | | g/dL | LABORATORY | | | | | | SERVICES, | | | | | | CORE | | + + + + + + | RDW SD | 58.7 (H) | 35.1 - 46.3 fL | [facility] | | | | | | LABORATORY | | | | | | SERVICES, | | | | | | CORE | | + + + + + + | PLATELET | 540 (H) | 150 - 400 K/cu | [facility] | | | COUNT | | mm | LABORATORY | | | | | | SERVICES, | | | | | | CORE | | + + + + + + | MPV | 11.0 | 9.7 - 12.3 fL | [facility] | | | | | | LABORATORY | | | | | | SERVICES, | | | | | | CORE | | + + + + + + | NRBC% | 0.3 | 0.0 - 0.3 % | [facility] | | | | | | LABORATORY | | | | | | SERVICES, | | | | | | CORE | | + + + + + + | NRBC# | 0.21 (H) | 0.00 - 0.02 | [facility] | | | | | K/cu mm | LABORATORY | | | | | | SERVICES, | | | | | | CORE | | + + + + + + + + | Specimen | + + | Blood - Blood | | (substance) | + + + + + + + | Performing | Address | City/State/Zipcode | Phone Number | | Organization | | | | + + + + + | [facility] | [address] | [place] [address] | | | SERVICES, CORE | [address] | | | + + + + + PHOSPHORUS, PLASMA (01/04/2019 12:53 AM PST) + +-------+ + + + | Component | Value | Ref Range | Performed | Pathologist | | | | | At | Signature | + +-------+ + + + | PHOSPHORUS, | 4.0 | 2.4 - 4.7 mg/dL | [facility] | | | PLASMA | | | LABORATORY | | | (LAB) | | | SERVICES, | | | | | | CORE | | + +-------+ + + + + + | Specimen | + + | Blood - Blood | | (substance) | + + + + + + + | Performing | Address | City/State/Zipcode | Phone Number | | Organization | | | | + + + + + | [facility] | [address] | [place] [address] | | | SERVICES, CORE | [address] | | | + + + + + MAGNESIUM, PLASMA (01/04/2019 12:53 AM PST) + +-------+ + + + | Component | Value | Ref Range | Performed | Pathologist | | | | | At | Signature | + +-------+ + + + | MAGNESIUM,P | 2.1 | 1.6 - 2.6 mg/dL | [facility] | | | LASMA | | | LABORATORY | | | | | | SERVICES, | | | | | | CORE | | + +-------+ + + + + + | Specimen | + + | Blood - Blood | | (substance) | + + + + + + + | Performing | Address | City/State/Zipcode | Phone Number | | Organization | | | | + + + + + | [facility] | [address] | [place] [address] | | | SERVICES, CORE | [address] | | | + + + + + COMPLETE METABOLIC SET (NA,K,CL,CO2,BUN,CREAT,GLUC,CA,AST,ALT,BILI TOTAL,ALK PHOS,ALB,PROT TOTAL) (01/04/2019 12:53 AM PST) + +---------+ + + + | Component | Value | Ref Range | Performed | Pathologist | | | | | At | Signature | + +---------+ + + + | GLUCOSE, | 82 | 70 - 99 mg/dL | [facility] | | | PLASMA | | | LABORATORY | | | (LAB) | | | SERVICES, | | | | | | CORE | | + +---------+ + + + | BUN, PLASMA | 11 | 6 - 20 mg/dL | [facility] | | | (LAB) | | | LABORATORY | | | | | | SERVICES, | | | | | | CORE | | + +---------+ + + + | CREATININE | 0.89 | 0.60 - 1.10 | [facility] | | | PLASMA | | mg/dL | LABORATORY | | | (LAB) | | | SERVICES, | | | | | | CORE | | + +---------+ + + + | EGFR | >60 | >60 mL/min | [facility] | | | - | | | LABORATORY | | | SALVADOREAN | | | SERVICES, | | | | | | CORE | | + +---------+ + + + | EGFR NON | >60 | >60 mL/min | [facility] | | | -REI | | | LABORATORY | | | RICAN | | | SERVICES, | | | | | | CORE | | + +---------+ + + + | SODIUM, | 142 | 136 - 145 | [facility] | | | PLASMA | | mmol/L | LABORATORY | | | (LAB) | | | SERVICES, | | | | | | CORE | | + +---------+ + + + | POTASSIUM, | 4.1 | 3.4 - 5.0 | [facility] | | | PLASMA | | mmol/L | LABORATORY | | | (LAB) | | | SERVICES, | | | | | | CORE | | + +---------+ + + + | CHLORIDE, | 112 (H) | 97 - 108 mmol/L | [facility] | | | PLASMA | | | LABORATORY | | | (LAB) | | | SERVICES, | | | | | | CORE | | + +---------+ + + + | TOTAL CO2, | 25 | 21 - 32 mmol/L | [facility] | | | PLASMA | | | LABORATORY | | | (LAB) | | | SERVICES, | | | | | | CORE | | + +---------+ + + + | CALCIUM, | 8.2 (L) | 8.6 - 10.2 | [facility] | | | PLASMA | | mg/dL | LABORATORY | | | (LAB) | | | SERVICES, | | | | | | CORE | | + +---------+ + + + | CALCIUM(ALB | 8.6 | 8.6 - 10.2 | [facility] | | | CORRECTED) | | mg/dL | LABORATORY | | | | | | SERVICES, | | | | | | CORE | | + +---------+ + + + | BILIRUBIN | 0.4 | 0.3 - 1.2 mg/dL | [facility] | | | TOTAL | | | LABORATORY | | | | | | SERVICES, | | | | | | CORE | | + +---------+ + + + | TOTAL | 6.3 (L) | 6.4 - 8.2 g/dL | [facility] | | | PROTEIN, | | | LABORATORY | | | PLASMA | | | SERVICES, | | | (LAB) | | | CORE | | + +---------+ + + + | ALBUMIN, | 3.5 | 3.5 - 4.7 g/dL | [facility] | | | PLASMA | | | LABORATORY | | | (LAB) | | | SERVICES, | | | | | | CORE | | + +---------+ + + + | ALK PHOS | 54 | 42 - 98 U/L | [facility] | | | | | | LABORATORY | | | | | | SERVICES, | | | | | | CORE | | + +---------+ + + + | AST(SGOT) | 15 | <=41 U/L | [facility] | | | | | | LABORATORY | | | | | | SERVICES, | | | | | | CORE | | + +---------+ + + + | ALT (SGPT) | 28 | <=60 U/L | [facility] | | | | | | LABORATORY | | | | | | SERVICES, | | | | | | CORE | | + +---------+ + + + | ANION GAP | 5 | 4 - 11 mmol/L | [facility] | | | | | | LABORATORY | | | | | | SERVICES, | | | | | | CORE | | + +---------+ + + + | ANION | 6 | 4 - 11 mmol/L | [facility] | | | GAP(ALB | | | LABORATORY | | | CORRECTED) | | | SERVICES, | | | | | | CORE | | + +---------+ + + + | POTASSIUM | No Hemo | | [facility] | | | CMNT | | | LABORATORY | | | | | | SERVICES, | | | | | | CORE | | + +---------+ + + + | BILI T CMNT | No Hemo | | [facility] | | | | | | LABORATORY | | | | | | SERVICES, | | | | | | CORE | | + +---------+ + + + | AST CMNT | No Hemo | | [facility] | | | | | | LABORATORY | | | | | | SERVICES, | | | | | | CORE | | + +---------+ + + + + + | Specimen | + + | Blood - Blood | | (substance) | + + + + + | Narrative | Performed At | + + + | GFR is estimated using the MDRD equation recommended by the | [facility] | | National Kidney Disease Education Program. Estimated GFR | LABORATORY | | Interpretive Information: <60 mL/min/1.73 sq m | SERVICES, CORE | | Chronic Kidney Disease <15 mL/min/1.73 sq m | | | Kidney Failure Estimated GFR greater than 60 mL/min/1.73 sq m is of | | | limited clinical value. The MDRD equation is not valid in the | | | following situations: - Patients under 18 years of age - Severe | | | malnutrition or obesity - Vegetarian diet - Rapidly changing kidney | | | function - Amputees, paraplegics, or other muscle-wasting diseses | | + + + + + + + + | Performing | Address | City/State/Zipcode | Phone Number | | Organization | | | | + + + + + | [facility] | [address] | [place] [address] | | | SERVICES, CORE | [address] | | | + + + + + CT ABDOMEN AND PELVIS W IV CONTRAST (01/03/2019 2:45 PM PST) + + | Specimen | + + | | + + + + + | Narrative | Performed At | + + + | EXAM: CT of the abdomen and pelvis WITH intravenous contrast. | [facility] | | HISTORY: Admitted with new diagnosis of leukemia. Now with nausea and | RADIOLOGY VOICE | | vomiting COMPARISON: None available. TECHNIQUE: CT of the | RECOGNITION 2 | | abdomen and pelvis with non-ionic iodinated intravenous contrast. | | | Coronal and sagittal reformats were generated and reviewed. | | | FINDINGS: LOWER THORAX: Unremarkable. LIVER: Liver is borderline | | | enlarged. No focal concerning lesions. BILIARY: Unremarkable. | | | PANCREAS: Unremarkable. SPLEEN: Spleen is enlarged, measuring up | | | to 18 cm in AP dimension and 16 cm in craniocaudal dimension. No focal | | | lesions. ADRENALS: Unremarkable. KIDNEYS/URETERS: Unremarkable. | | | PELVIC ORGANS/BLADDER: Normal physiologic appearance of the pelvic | | | visceral structures. GI TRACT: No evidence of bowel obstruction. | | | Appendix is normal in caliber. Moderate stool burden in the colon. | | | PERITONEUM: No free air or fluid. LYMPH NODES: No lymphadenopathy. | | | VESSELS: Unremarkable. BONES AND SOFT TISSUES: Degenerative disc | | | disease at L5-S1. No suspicious osseous lesions. IMPRESSION: | | | Splenomegaly and borderline hepatomegaly, consistent with reported | | | underlying hematologic malignancy. No acute abnormality in the | | | abdomen or pelvis. I have personally reviewed the images and, if | | | necessary, edited the report. I agree with the report as now | | | presented. Final signature: Moises Baumann MD 01/03/2019 | | | 3:35 PM Preliminary: Nico Waite MD 01/03/2019 3:28 PM | | | Dictation initiated: Nico Waite MD 01/03/2019 2:47 PM | | + + + + + | Procedure Note | + + | Service Account, Radiant Res In Interface - 01/03/2019 3:37 PM PST EXAM: CT of the | | abdomen and pelvis WITH intravenous contrast. HISTORY: Admitted with new diagnosis of | | leukemia. Now with nausea and vomiting COMPARISON: None available. TECHNIQUE: CT of the | | abdomen and pelvis with non-ionic iodinated intravenous contrast. Coronal and sagittal | | reformats were generated and reviewed. FINDINGS:LOWER THORAX: Unremarkable. LIVER: Liver | | is borderline enlarged. No focal concerning lesions.BILIARY: Unremarkable.PANCREAS: | | Unremarkable. SPLEEN: Spleen is enlarged, measuring up to 18 cm in AP dimension and 16 | | cm in craniocaudal dimension. No focal lesions.ADRENALS: Unremarkable.KIDNEYS/URETERS: | | Unremarkable.PELVIC ORGANS/BLADDER: Normal physiologic appearance of the pelvic visceral | | structures. GI TRACT: No evidence of bowel obstruction. Appendix is normal in caliber. | | Moderate stool burden in the colon.PERITONEUM: No free air or fluid. LYMPH NODES: No | | lymphadenopathy.VESSELS: Unremarkable. BONES AND SOFT TISSUES: Degenerative disc disease | | at L5-S1. No suspicious osseous lesions. IMPRESSION: Splenomegaly and borderline | | hepatomegaly, consistent with reported underlying hematologic malignancy. No acute | | abnormality in the abdomen or pelvis. I have personally reviewed the images and, if | | necessary, edited the report. I agree with the report as now presented. Final | | signature: Moises Baumann MD 01/03/2019 3:35 PM Preliminary: Nico Waite MD | | 01/03/2019 3:28 PM Dictation initiated: Nico Waite MD 01/03/2019 2:47 PM | |PELVIC ORGANS/BLADDER: Normal physiologic appearance of the pelvic visceral structures. | | | |GI TRACT: No evidence of bowel obstruction. Appendix is normal in caliber. Moderate stool b urden in the colon. | |PERITONEUM: No free air or fluid. | | | |LYMPH NODES: No lymphadenopathy. | |VESSELS: Unremarkable. | | | |BONES AND SOFT TISSUES: Degenerative disc disease at L5-S1. No suspicious osseous lesions. | | | |IMPRESSION: | | | |Splenomegaly and borderline hepatomegaly, consistent with reported underlying hematologic m alignancy. | | | |No acute abnormality in the abdomen or pelvis. | | | |I have personally reviewed the images and, if necessary, edited the report. I agree with th e report as now presented. | | | |Final signature: Moises Baumann MD 01/03/2019 3:35 PM | |Preliminary: Nico Waite MD 01/03/2019 3:28 PM | |Dictation initiated: Nico Waite MD 01/03/2019 2:47 PM | + + + +---------+ + + | Performing | Address | City/State/Zipcode | Phone Number | | Organization | | | | + +---------+ + + | [facility] | | | | | VOICE RECOGNITION 2 | | | | + +---------+ + + PROCEDURE NOTE (01/03/2019 12:46 PM PST) + + + | Narrative | Performed At | + + + | Nella Rosado NP 01/03/2019 1:16 PM 01/03/2019 12:46 | | | PM Procedure Note Procedure: Bone marrow aspirate and biopsy | | | w/ medications for anxiolysis Indications: Leukocytosis with | | | 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 CML Team Pause: At 1115, prior to the | | | beginning of the procedure, the team paused to verify the patient's | | | identity, as well as the procedure to be performed and the correct | | | side/site. All equipment required was ready and available. The | | | patient was positioned appropriately. The following team members | | | were present during the team pause: Nella Rosado NP and Janice | | | gold leaf laborer. Description: Written consent for bone marrow | | | aspirate and biopsy was obtained from the patient following a brief | | | discussion regarding the risks and benefits of the procedure. The | | | patient was then premedicated for anxiolysis w/ Ativan 1mg IV, | | | however did require an additional 1mg IV Ativan during the | | | procedure. The skin over the on right posterior iliac crest was | | | cleansed with betadine and draped in a sterile manner. Xylocaine 1% | | | was used for local anesthesia- a total of 15mL of lidocaine was used | | | during the procedure. A [employer] Tissue Biopsy Forceps used was | | | used to enlarge the insertion site, and the excised skin was placed | | | in a sterile saline container and submitted for the 4422 study. | | | The aspirate needle was inserted and the first aspirate was noted | | | to have spicules, which was submitted for morphology studies. A | | | second aspirate was obtained in a non-heparinized syringe and | | | submitted for genetrails. A third aspirate was obtained in a | | | heparinized syringe and submitted for FISH, flow cytometry and | | | cytogenetics. A final aspirate was obtained in a heparinized syringe | | | and submitted for the 4422 study. The aspirate needle was | | | inserted again to obtain two core biopsies measuring approximately | | | 2cm total and were obtained and submitted for morphology studies. | | | Hemostasis was achieved and a pressure dressing was applied. The | | | patient was observed for 20 minutes post-procedure for signs of | | | bleeding. Pt tolerated the procedure well without complications. | | | The results of this procedure will take approximately 7 to 10 | | | days for full analysis. However, preliminary results should be | | | available within the next 24 to 48 hours. Lab Results Lab Test | | | Name Results Date/Time | | | WBC 58.87 01/02/19 | | | RBC 4.17 01/02/19 | | | HB 13.1 01/02/19 | | | HCT 39.8 01/02/19 | | | MCV 95.4 01/02/19 | | | MCHC 32.9 01/02/19 | | | RDW 56.5 01/02/19 | | | PLT 566 01/02/19 | | | NEUTROPERC 60.6 01/02/19 | | | LYMPHPERC 6.5 01/02/19 | | | MONOPERC 0.0 01/02/19 | | | EOSPERC 2.5 01/02/19 | | | BASOPERC 12.3 01/02/19 | | | ATYPICALPCT 2.5 01/02/19 | | | NEUTROPHILCO 35.68 01/02/19 | | | MONOCYTECO 0.00 01/02/19 | | | EOSCO 1.47 01/02/19 | | | BASOPHILCO 7.24 01/02/19 Nella Rosado NP [facility] | | | 14K [address] Mailcode: [address] [place], [place] | | | [address] [facility] DEPARTMENT: [id number] | | | Place of Service:- Inpatient Date of Service: 01/03/19 MEDICAL | | | RECORD NUMBER [id number] Suggested CPT:27189 - Bone Marrow Aspirate | | | Only and 83701 - Bone Marrow Biopsy Needle or Trocar | | + + + MDS/FA/HES FISH PANEL, BONE MARROW/CORE (01/03/2019 11:23 AM PST) + +--------+ + + + | Component | Value | Ref Range | Performed | Pathologist | | | | | At | Signature | + +--------+ + + + | MDS/FA/HES | Normal | | [facility] | | | FISH PANEL | | | DIAGNOSTIC | | | | | | | | | | | | LABORATORIE | | | | | | S | | + +--------+ + + + | CELLS | 200 | | [facility] | | | SCORED | | | DIAGNOSTIC | | | METASYSTEMS | | | | | | CEP 8 (SA) | | | LABORATORIE | | | | | | S | | + +--------+ + + + | CELLS | 200 | | [facility] | | | SCORED | | | DIAGNOSTIC | | | METASYSTEMS | | | | | | [id number] | | | LABORATORIE | | | (20Q12)(SO) | | | S | | | /20Q TEL | | | | | | (SG) | | | | | + +--------+ + + + | CELLS | 200 | | [facility] | | | SCORED | | | DIAGNOSTIC | | | BIOCARE | | | | | | [id number] | | | LABORATORIE | | | (17P13.1) | | | S | | | (SO) / CEP | | | | | | 17 (SG) | | | | | + +--------+ + + + + + | Specimen | + + | Bone marrow - Bone | | marrow structure | | (body structure) | + + + + + + + | Performing | Address | City/State/Zipcode | Phone Number | | Organization | | | | + + + + + | [facility] | [address] | [place] [address] | | | DIAGNOSTIC | [address] | | | | LABORATORIES | | | | + + + + + AML FISH PANEL, BONE MARROW/CORE (01/03/2019 11:23 AM PST) + + + + + + | Component | Value | Ref Range | Performed | Pathologist | | | | | At | Signature | + + + + + + | AML FISH | Normal | | [facility] | | | PANEL | | | DIAGNOSTIC | | | | | | | | | | | | LABORATORIE | | | | | | S | | + + + + + + | CELLS | 200 | | [facility] | | | SCORED | | | DIAGNOSTIC | | | METASYSTEMS | | | | | | [id number] | | | LABORATORIE | | | (7Q31)(SO)/ | | | S | | | CEP7(SG) | | | | | + + + + + + | CS | 200 | | [facility] | | | METASYSTEMS | | | DIAGNOSTIC | | | PML | | | | | | (15Q22)(SO) | | | LABORATORIE | | | /GAUDENCIO(17Q21 | | | S | | | )(SG) | | | | | | T(15;17) | | | | | + + + + + + | CELLS | 200 | | [facility] | | | SCORED | | | DIAGNOSTIC | | | BIOCARE MLL | | | | | | (11Q23) | | | LABORATORIE | | | BREAK-APART | | | S | | + + + + + + | CS | 200 | | [facility] | | | METASYSTEMS | | | DIAGNOSTIC | | | | | | | | | DEK(6P22)(S | | | LABORATORIE | | | G)/LAY518(9 | | | S | | | Q34)(SO)T(6 | | | | | | ;9)DC, DF | | | | | + + + + + + | CELLS | 200 | | [facility] | | | SCORED | | | DIAGNOSTIC | | | METASYSTEMS | | | | | | | | | LABORATORIE | | | EGR-1(SO)/5 | | | S | | | Q33(SG)/5P1 | | | | | | 5(SA) | | | | | + + + + + + | CELLS | 200Comment: Probe | | [facility] | | | SCORED CBFB | Manufactured By: | | DIAGNOSTIC | | | (16Q22) | [employer] | | | | | (SO)/MYH11 | | | LABORATORIE | | | (16P13.1) | | | S | | | (SG) DF | | | | | + + + + + + | CELLS | 200Comment: Probe | | [facility] | | | SCORED | Manufactured By: | | DIAGNOSTIC | | | BUPO4O6(8Q2 | [employer] | | | | | 1.3)(SO)/RU | | | LABORATORIE | | | NX1 (21Q22) | | | S | | | (SG) | | | | | | T(8;21) | | | | | + + + + + + | CELLS | 200Comment: Probe | | [facility] | | | SCORED | Manufactured By: | | DIAGNOSTIC | | | MECOM | [employer] | | | | | (3Q26.2)(SO | | | LABORATORIE | | | )/RPN1(3Q21 | | | S | | | .3)(SG) | | | | | | DUAL FUSION | | | | | + + + + + + + + | Specimen | + + | Bone marrow - Bone | | marrow structure | | (body structure) | + + + + + + + | Performing | Address | City/State/Zipcode | Phone Number | | Organization | | | | + + + + + | [facility] | [address] | [place] [address] | | | DIAGNOSTIC | [address] | | | | LABORATORIES | | | | + + + + + FLT3 ITD, BONE MARROW (01/03/2019 11:23 AM PST) + + + + + + | Component | Value | Ref Range | Performed | Pathologist | | | | | At | Signature | + + + + + + | FLT3 ITD | Undetected. | | [facility] | | | | | | DIAGNOSTIC | | | | | | | | | | | | LABORATORIE | | | | | | S | | + + + + + + | INTERPRETAT | No internal tandem | | [facility] | | | ION | duplication (ITD) In | | DIAGNOSTIC | | | | this sample, the FLT3 | | | | | | juxtamembrane domain | | LABORATORIE | | | | does not contain a | | S | | | | detectable internal | | | | | | tandem duplication (ITD) | | | | | | mutation. The absence | | | | | | of a detectable ITD | | | | | | mutation in this sample | | | | | | does not rule out the | | | | | | presence of a small | | | | | | population of | | | | | | mutation-bearing cells, | | | | | | below the low-level | | | | | | detection limit of the | | | | | | assay (~1-5% of the | | | | | | total cells analyzed). | | | | | | Since this mutation | | | | | | appears to be acquired | | | | | | only in tumor cells, | | | | | | this negative result may | | | | | | also simply be the | | | | | | result of the sample | | | | | | containing too few | | | | | | leukemia cells. Comment: | | | | | | For the purposes of | | | | | | improved patient care, | | | | | | the findings for | | | | | | FLT3-ITD gene mutation | | | | | | analysis are issued in | | | | | | this separate report. | | | | | | Next generation | | | | | | sequencing analysis is | | | | | | being performed and a | | | | | | comprehensive | | | | | | interpretation of all 76 | | | | | | genes analyzed in this | | | | | | case will be reported in | | | | | | a separate report upon | | | | | | completion of the | | | | | | remaining tests. | | | | + + + + + + | METHOD(S) | For the ITD assay | | [facility] | | | | performed in our | | DIAGNOSTIC | | | | laboratory, blood, or | | | | | | bone marrow-derived DNA | | LABORATORIE | | | | is PCR amplified with | | S | | | | FLT3 juxtamembrane | | | | | | domain (exon 14) | | | | | | primers. The FLT3 ITD | | | | | | PCR product is then | | | | | | analyzed by capillary | | | | | | electrophoresis to | | | | | | detect the presence or | | | | | | absence of length | | | | | | variations attributable | | | | | | to an ITD. The | | | | | | low-level sensitivity | | | | | | limit of the assay is | | | | | | ~1-5%, such that a | | | | | | mutant cell (or tumor | | | | | | cell) population below | | | | | | this detection limit | | | | | | will not be reliably | | | | | | detected. | | | | + + + + + + | REFERENCES | 1. Dariana Waldrop, | | [facility] | | | | Matthias Carlos. | | DIAGNOSTIC | | | | Molecular genetics of | | | | | | adult acute myeloid | | LABORATORIE | | | | leukemia: prognostic and | | S | | | | therapeutic | | | | | | implications. J Clin | | | | | | Oncol. 2011;29:475-486. | | | | | | 2. Karyn FRANKEL, Estela | | | | | | , Jennifer APPLE, et | | | | | | al. FLT3 [id number] | | | | | | mutations are associated | | | | | | with poor disease-free | | | | | | survival and a distinct | | | | | | gene-expression | | | | | | signature among younger | | | | | | adults with de matthew | | | | | | cytogenetically normal | | | | | | acute myeloid leukemia | | | | | | lacking FLT3 internal | | | | | | tandem duplications. | | | | | | Blood | | | | | | 2007;111:5095-3383. | | | | + + + + + + | DISCLAIMER | This test was developed | | [facility] | | | | and its performance | | DIAGNOSTIC | | | | characteristics | | | | | | determined by the [facility] | | LABORATORIE | | | | [facility] | | S | | | | Laboratories. It has | | | | | | not been cleared or | | | | | | approved by the Food and | | | | | | Drug Administration. | | | | | | FDA approval is not | | | | | | required for the | | | | | | clinical use of the | | | | | | test, and therefore | | | | | | validation was done as | | | | | | required under the | | | | | | requirements of the | | | | | | Clinical Laboratory | | | | | | Improvement Act 1987 | | | | | | (CLIA). The [facility] | | | | | | [facility] | | | | | | Laboratories are fully | | | | | | licensed by the [facility] | | | | | [place] under CLIA and | | | | | | are accredited by the | | | | | | [employer] | | | | | | Pathologists ([employer]). | | | | | | Medical Office Clerk: | | | | | | Aftab James, | | | | | | [place], Ph.D | | | | + + + + + + + + | Specimen | + + | Bone marrow - Bone | | marrow structure | | (body structure) | + + + + + + + | Performing | Address | City/State/Zipcode | Phone Number | | Organization | | | | + + + + + | [facility] | [address] | [place] [address] | | | DIAGNOSTIC | [address] | | | | LABORATORIES | | | | + + + + + COMPREHENSIVE HEME PANEL SEQ, BONE MARROW (01/03/2019 11:23 AM PST) + + + + + + | Component | Value | Ref Range | Performed | Pathologist | | | | | At | Signature | + + + + + + | COMPREHENSI | See Interpretation. | | [facility] | | | VE [facility]EME | | | DIAGNOSTIC | | | PANEL SEQ | | | | | | | | | LABORATORIE | | | | | | S | | + + + + + + | INTERPRETAT | [employer] | | [facility] | | | ION | Comprehensive Heme | | DIAGNOSTIC | | | | Sequencing: Mutation | | | | | | Screening by | | LABORATORIE | | | | Next-Generation | | S | | | | Sequencing Specimen ID: | | | | | | [id number] | | | | | | Type: Bone Marrow | | | | | | AspirateCollection Date: | | | | | | 01/03/2019Indication | | | | | | for Testing: Chronic | | | | | | myeloid leukemia (CML) | | | | | | Clinical History: | | | | | | Newly diagnosed CML, | | | | | | 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 The | | | | | | following 2 variant(s) | | | | | | have been identified in | | | | | | the current marrow | | | | | | sample. Variant(s) of | | | | | | Potential Clinical | | | | | | Significance (Tier II) | | | | | | Gene: WCKC0Unubtpz: | | | | | | p.G646fs*12Variant | | | | | | allele frequency (VAF): | | | | | | 37%Variant ID: | | | | | | [id number]; | | | | | | [id number], | | | | | | [id number] | | | | | | ([id number]):c.1927dupG | | | | | | ; [id number]>AG | | | | | | Variant(s) of Unknown | | | | | | Significance (Tier III) | | | | | | Gene: NA2Kickvsn: | | | | | | p.G49VQilljds allele | | | | | | frequency (VAF): | | | | | | 8%Variant ID: | | | | | | [id number] | | | | | | (XYGN224.1):c.272C>T; | | | | | | [id number]>A | | | | | | ADDITIONAL DETAILS ON | | | | | | VARIANTS IDENTIFIED IN | | | | | | THIS SPECIMEN: Variant: | | | | | | ASXL1 p.G646fs*12 This | | | | | | 1bp insertion is | | | | | | predicted to cause | | | | | | frameshift and early | | | | | | termination of the ASXL1 | | | | | | protein. It has been | | | | | | reported as one of the | | | | | | most common ASXL1 | | | | | | mutations associated | | | | | | with myeloid | | | | | | malignancies. Studies | | | | | | have reported ASXL1 is | | | | | | one of the most commonly | | | | | | mutated genes for CML | | | | | | patients at diagnosis, | | | | | | and associated with | | | | | | suboptimal TKI response | | | | | | and possible poor | | | | | | outcome. No targeted | | | | | | therapy for ASXL1 | | | | | | mutations is available. | | | | | | Case reviewed by:Deborah | | | | | | Audelia Whitehead, Ph.D./ | | | | | | Molecular Genetic | | | | | | Pathology FellowPhilipp | | | | | | Audelia Davis, Ph.D./ | | | | | | Hematopathologist LOW | | | | | | LIMIT OF DETECTION: | | | | | | The low limit of | | | | | | detection for this assay | | | | | | is 2% VAF at a minimal | | | | | | 900 read depth (5% at | | | | | | 700 read depth and 7% at | | | | | | 500 read depth). This | | | | | | case has an average read | | | | | | depth of 2351. | | | | | | However, a small | | | | | | fraction (100 minus the | | | | | | percentage in the | | | | | | parenthesis) of the | | | | | | targeted regions of the | | | | | | following genes: JAK3 | | | | | | (99%), ASXL1 (99%), | | | | | | NOTCH2 (99%), JAK1 | | | | | | (99%), RAD21 (98%), | | | | | | GATA1 (97%) have a | | | | | | higher low limit of | | | | | | detection of 10-15% VAF | | | | | | (if less than 250 read | | | | | | depth), or could harbor | | | | | | mutations that were | | | | | | missed by this analysis | | | | | | if the read depth is | | | | | | below 100. Further | | | | | | information on these | | | | | | low-coverage regions is | | | | | | available upon request. | | | | | | Low read counts may | | | | | | reflect changes in gene | | | | | | copy number or technical | | | | | | issues with the sample. | | | | | | Reviewed and | | | | | | electronically signed by | | | | | | Burke Davis | | | | | | ,PhD01/16/2019 5:41 PM | | | | + + + + + + | TIER METHOD | Genomic variants have | | [facility] | | | | been classified in | | DIAGNOSTIC | | | | accordance with 2017 | | | | | | standards and guidelines | | LABORATORIE | | | | recommended by | | S | | | | AMP/ASCO/CAP (1) and | | | | | | currently available | | | | | | resources. In brief, | | | | | | Tier I variants have | | | | | | strong evidence linking | | | | | | genomic alterations to | | | | | | specific therapies, or | | | | | | are included in clinical | | | | | | practice guidelines or | | | | | | well-powered studies | | | | | | confirming their | | | | | | diagnostic, predictive, | | | | | | prognostic, and/or | | | | | | disease monitoring | | | | | | significance. Tier II | | | | | | variants have either | | | | | | targeted therapies for | | | | | | different tumor types, | | | | | | in preclinical or | | | | | | clinical trials, or have | | | | | | less strong evidence | | | | | | for their diagnostic, | | | | | | predictive, prognostic, | | | | | | and/or disease | | | | | | monitoring roles. Tier | | | | | | III variants are neither | | | | | | observed in healthy | | | | | | populations nor have | | | | | | convincing published | | | | | | evidence of cancer | | | | | | association. The | | | | | | classification of a | | | | | | variant is dependent on | | | | | | the specific clinical | | | | | | scenario, which could | | | | | | change in a different | | | | | | patient and/or in a new | | | | | | sample from the same | | | | | | patient, or if there are | | | | | | new data/information | | | | | | relevant to this | | | | | | variant. | | | | + + + + + + | METHOD(S) | This test is designed to | | [facility] | | | | detect alterations in a | | DIAGNOSTIC | | | | panel of 76 genes, many | | | | | | of which are known to | | LABORATORIE | | | | play a role in leukemia | | S | | | | and lymphoma | | | | | | pathogenesis, diagnosis, | | | | | | prognosis, response to | | | | | | therapy, or disease | | | | | | monitoring. These genes | | | | | | include: Signaling | | | | | | genes:ABL1 PITA BRAF | | | | | | CALR CCND1 [id number] | | | | | | CSF3R FLT3 GNA13 | | | | | | HRAS PC8KOAA7 JAK2 | | | | | | JAK3 KIT KRAS | | | | | | [id number] NOTCH1 NOTCH2 | | | | | | NRAS [id number] | | | | | | PTPN11 | | | | | | Chromatin-modifying | | | | | | genes:ASXL1 CREBBP | | | | | | EP300 EZH2 KDM6A | | | | | | EENUUMU89 DNA | | | | | | methylation-associated | | | | | | genes:DNMT3A TET2 IDH1 | | | | | | IDH2 Licensed Psychologist Director | | | | | | factors:BCOR BCL6 CBL | | | | | | CBLB CEBPA [id number] | | | | | | GATA1 GATA2 ID3 | | | | | | IKZF1 QBS2LRLN3Q MYC | | | | | | PAX5 PRDM1 RUNX1 TCF3 | | | | | | Spliceosome-complex | | | | | | genes:SRSF2 SF3B1 | | | | | | U2AF1 ZRSR2 | | | | | | Cohesion-complex | | | | | | genes:SMC1A SMC3 STAG2 | | | | | | RAD21 Tumor suppressor | | | | | | genes:TP53 WT1 PHF6 | | | | | | and others:BCL2 BIRC3 | | | | | | CARD11 CD79B FAM5C | | | | | | FBNV9GYCGLT NPM1 | | | | | | TNFAIP3 SQMXKK46 SETBP1 | | | | | | All the coding exons | | | | | | and the canonical splice | | | | | | sites of these genes, | | | | | | except CARD11, are | | | | | | sequenced. Selected | | | | | | coding exons | | | | | | ([id number]:3-, 15, | | | | | | 21) are sequenced for | | | | | | CARD11. Genomic DNA is | | | | | | extracted and purified | | | | | | from blood, bone marrow | | | | | | or other hematopoietic | | | | | | tissue from fresh or | | | | | | fixed samples. If the | | | | | | submitted sample is from | | | | | | FFPE, the specimen is | | | | | | examined microscopically | | | | | | and, if deemed helpful | | | | | | to enhance sensitivity, | | | | | | genomic DNA is extracted | | | | | | and purified from micro | | | | | | dissected, tumor-rich | | | | | | areas. Mutations are | | | | | | screened by massively | | | | | | parallel sequencing | | | | | | (next-generation | | | | | | sequencing) using a | | | | | | combination of | | | | | | multiplexed PCR | | | | | | (customized QIAseq | | | | | | targeted DNA panel with | | | | | | molecular barcodes) and | | | | | | sequencing on an | | | | | | Illumina platform | | | | | | ([id number]). Sequencing | | | | | | data is then aligned | | | | | | against a reference | | | | | | genome [hg19]. An | | | | | | in-house bioinformatics | | | | | | analysis pipeline has | | | | | | been used that employs | | | | | | multiple established | | | | | | variant calling tools | | | | | | (FreeBayes, MuTect2, and | | | | | | Scalpel) and variant | | | | | | annotation tools | | | | | | (Oncotator). The assay | | | | | | is validated according | | | | | | to AMP guidelines (2,3). | | | | | | With regard to | | | | | | insertions and | | | | | | deletions, this test is | | | | | | known to be biased | | | | | | toward detecting shorter | | | | | | alterations, and often | | | | | | to underestimate variant | | | | | | allele frequency (VAF) | | | | | | of these types of | | | | | | variants. Therefore, a | | | | | | supplementary | | | | | | non-biased size-based | | | | | | assay is concomitantly | | | | | | run to ensure that | | | | | | internal tandem | | | | | | duplication insertions | | | | | | in FLT3 exon 14 are not | | | | | | missed. Furthermore, a | | | | | | supplementary assay is | | | | | | concomitantly run to | | | | | | detect partial tandem | | | | | | duplications in MLL | | | | | | (MLL-PTD) if warranted | | | | | | by the | | | | | | clinicopathological | | | | | | findings of the patient. | | | | | | Sequencing often does | | | | | | not detect large | | | | | | deletions or | | | | | | duplications in other | | | | | | genes targeted on this | | | | | | panel. In addition, this | | | | | | test does not detect | | | | | | mutations in the | | | | | | regulatory regions, deep | | | | | | introns, or highly | | | | | | homologous regions | | | | | | containing pseudogenes | | | | | | and/or highly repetitive | | | | | | regions. This assay is | | | | | | intended to detect | | | | | | somatically-acquired | | | | | | variants in | | | | | | cancer-associated genes | | | | | | and is not intended to | | | | | | detect germline variants | | | | | | for the diagnosis of | | | | | | inherited cancer | | | | | | predisposition | | | | | | syndromes. If an | | | | | | inherited variant is | | | | | | suspected, other | | | | | | sequencing tests may be | | | | | | indicated, and genetic | | | | | | counseling may be | | | | | | warranted. | | | | + + + + + + | REFERENCES | 1. Elsie MM, et al; 2017, J | | [facility] | | | | Mol Diagn. | | DIAGNOSTIC | | | | 19(1):4-23.2. Lebron | | | | | | CLARICE et al; 2017, J Mol | | LABORATORIE | | | | Diagn. 19(3):341-365.3. | | S | | | | Jarrod S, et al; 2018, J | | | | | | Mol Diagn. 20(1):4-27.4. | | | | | | NCCN guidelines: | | | | | | https://www.nccn.org/pro | | | | | | fessionals/physician_gls | | | | | | /default.aspx5. The 2017 | | | | | | ELN recommendations: | | | | | | Blood. 2017; | | | | | | 129(4):424-447.6. The | | | | | | 2016 revision to the WHO | | | | | | classification: Blood. | | | | | | 2016; 127(20):0104-666. | | | | | | 7. Catalogue Of Somatic | | | | | | Mutations In Cancer: | | | | | | http://cancer.peyton.ac. | | | | | | uk/cosmic8. ClinVar: | | | | | | https://www.ncbi.nlm.nih | | | | | | .gov/clinvar/9. | | | | | | DEBBIE-Clinical | | | | | | Knowledgebase (CKB): | | | | | | https://ckb.[employer] / TLL.org/10. | | | | | | CIViC: | | | | | | https://civicdb.org/home | | | | + + + + + + | DISCLAIMER | This test was developed | | [facility] | | | | and its performance | | DIAGNOSTIC | | | | characteristics | | | | | | determined by the [facility] | | LABORATORIE | | | | [facility] | | S | | | | Laboratories. It has | | | | | | not been cleared or | | | | | | approved by the Food and | | | | | | Drug Administration. | | | | | | FDA approval is not | | | | | | required for the | | | | | | clinical use of the | | | | | | test, and therefore | | | | | | validation was done as | | | | | | required under the | | | | | | requirements of the | | | | | | Clinical Laboratory | | | | | | Improvement Act of 1988 | | | | | | (CLIA). The [facility] | | | | | | [facility] | | | | | | Laboratories are fully | | | | | | licensed by the state of | | | | | | [place] under CLIA and | | | | | | are accredited by the | | | | | | [employer] | | | | | | Pathologists (CAP). | | | | | | Medical Office Clerk: | | | | | | Aftab James, | | | | | | Audelia, Ph.D | | | | + + + + + + + + | Specimen | + + | Bone marrow - Bone | | marrow structure | | (body structure) | + + + + + + + | Performing | Address | City/State/Zipcode | Phone Number | | Organization | | | | + + + + + | [facility] | [address] | [place] [address] | | | DIAGNOSTIC | [address] | | | | LABORATORIES | | | | + + + + + CYTOGENETICS BONE MARROW CHROMOSOME ANALYSIS (W/FISH) (01/03/2019 11:23 AM PST) + + + + + + | Component | Value | Ref Range | Performed | Pathologist | | | | | At | Signature | + + + + + + | Impressions | KARYOTYPE: | | [facility] | | | and | 46,XX,t(9;22)(q34;q11.2) | | DIAGNOSTIC | | | Recommendat | [20] All twenty | | | | | ions | metaphase cells examined | | LABORATORIE | | | | were abnormal, with | | S | | | | t(9;22). (Please note | | | | | | that FISH on a | | | | | | concurrent specimen, | | | | | | [id number], is positive | | | | | | for BCR/ABL fusion, | | | | | | consistent with the | | | | | | t(9;22) seen here.) FISH | | | | | | was performed with AML | | | | | | and MDS probe panels | | | | | | (minus BCR/ABL), as | | | | | | listed below. All | | | | | | results were within | | | | | | normal limits. Thank you | | | | | | very much for your | | | | | | referral. If you have | | | | | | any questions regarding | | | | | | this report or future | | | | | | cytogenetic testing | | | | | | issues, please feel free | | | | | | to contact us. Reason | | | | | | for Referral: | | | | | | leukocytosis with | | | | | | concern for | | | | | | myeloproliferative | | | | | | disease The clinical | | | | | | interpretation was made | | | | | | by the clinical | | | | | | geophysical computer. | | | | + + + + + + | BONE MARROW | Abnormal | | [facility] | | | CHROMOSOME | | | DIAGNOSTIC | | | ANALYSIS | | | | | | (W/FISH) | | | LABORATORIE | | | | | | S | | + + + + + + | Chromosome | Abnormal | | [facility] | | | Results | | | DIAGNOSTIC | | | | | | | | | | | | LABORATORIE | | | | | | S | | + + + + + + | Number of | 3 | | [facility] | | | Cells | | | DIAGNOSTIC | | | Karyotpyed | | | | | | | | | LABORATORIE | | | | | | S | | + + + + + + | Number of | 20 | | [facility] | | | Cells | | | DIAGNOSTIC | | | Analyzed: | | | | | | | | | LABORATORIE | | | | | | S | | + + + + + + | Number of | N/A | | [facility] | | | Cells | | | DIAGNOSTIC | | | Counted: | | | | | | | | | LABORATORIE | | | | | | S | | + + + + + + | Banding | <=400 | | [facility] | | | Level: | | | DIAGNOSTIC | | | | | | | | | | | | LABORATORIE | | | | | | S | | + + + + + + | Banding | GTW | | [facility] | | | Method: | | | DIAGNOSTIC | | | | | | | | | | | | LABORATORIE | | | | | | S | | + + + + + + | DISCLAIMER | This test was developed | | [facility] | | | | and its performance | | DIAGNOSTIC | | | | characteristics | | | | | | determined by the [facility] | | LABORATORIE | | | | [facility] | | S | | | | Laboratories. It has | | | | | | not been cleared or | | | | | | approved by the Food and | | | | | | Drug Administration. | | | | | | FDA approval is not | | | | | | required for the | | | | | | clinical use of the | | | | | | test, and therefore | | | | | | validation was done as | | | | | | required under the | | | | | | requirements of the | | | | | | Clinical Laboratory | | | | | | Improvement Act of 1988 | | | | | | (CLIA). The [facility] | | | | | | [facility] | | | | | | Laboratories are fully | | | | | | licensed by the state of | | | | | | [place] under CLIA and | | | | | | are accredited by the | | | | | | [employer] | | | | | | Pathologists (CAP). | | | | | | Medical Office Clerk: | | | | | | Aftab James, | | | | | | Marybeth., Ph.D | | | | | | Electronically reviewed | | | | | | and signed by:Ernesto | | | | | | Jeferson, PhD, | | | | | | FACMGClinical | | | | | | Assembler Product Clinical | | | | | | Molecular | | | | | | Geneticist01/08/2019 at | | | | | | 1:38 PM Reviewed and | | | | | | electronically signed | | | | | | by LICHA HOUSE, | | | | | | ,FACMG01/08/2019 6:39 PM | | | | | | | | | | + + + + + + + + | Specimen | + + | Bone marrow - Bone | | marrow structure | | (body structure) | + + + + + + + | Performing | Address | City/State/Zipcode | Phone Number | | Organization | | | | + + + + + | [facility] | [address] | [place] [address] | | | DIAGNOSTIC | [address] | | | | LABORATORIES | | | | + + + + + LEUKEMIA/LYMPHOMA MARKERS - BONE MARROW (01/02/2019 11:37 PM PST) + + + + + + | Component | Value | Ref Range | Performed | Pathologist | | | | | At | Signature | + + + + + + | Final | Bone marrow clot | | [facility] | Electronically | | Pathologic | section, core biopsy and | | DEPARTMENT | signed by | | Diagnosis | peripheral blood: - | | OF | Burke W | | | Chronic myeloid | | PATHOLOGY | MD Ryan,PhD | | | leukemia, see comment - | | | on 01/07/2019 at | | | Hypercellular (>95%) | | | 2:38 PM | | | marrow with | | | | | | myeloid-predominant | | | | | | trilineage hematopoiesis | | | | | | - Megakaryocytic | | | | | | hyperplasia with | | | | | | increased small forms - | | | | | | 3% myeloid blasts with | | | | | | aberrant CD11b and dim | | | | | | CD7 expression - Mild | | | | | | reticulin fibrosis - | | | | | | Leukocytosis with | | | | | | left-shifted myeloid | | | | | | series, neutrophilia, | | | | | | eosinophilia, | | | | | | basophilia, and 3% | | | | | | blasts - | | | | | | ThrombocytosisBone | | | | | | marrow aspirate: - | | | | | | Inadequate due to | | | | | | aparticulate | | | | | | natureComment: The | | | | | | morphologic findings | | | | | | support classification | | | | | | as chronic phase, but | | | | | | correlation with the | | | | | | concurrent cytogenetic | | | | | | and molecular studies is | | | | | | recommended to exclude | | | | | | the presence of | | | | | | additional chromosomal | | | | | | abnormalities which | | | | | | could change | | | | | | subclassification.Case | | | | | | seen by:Hue Lara DO | | | | | | - Hematopathology | | | | | | FellowPhilipp W Ryan, | | | | | | , PhD - | | | | | | HematopathologistDepartm | | | | | | ent of Pathology, [place] | | | | | | Health & Science | | | | | | UniversityMy electronic | | | | | | signature indicates that | | | | | | I have personally | | | | | | reviewed all diagnostic | | | | | | slides, the gross and/or | | | | | | microscopic portion of | | | | | | this report and | | | | | | formulated the final | | | | | | diagnosis.CLINICAL | | | | | | HISTORY: The patient is | | | | | | a 33 year-old woman with | | | | | | leukocytosis. BCR-ABL | | | | | | fusion detected by FISH | | | | | | on peripheral blood | | | | | | sample.CBC:Resulted Date | | | | | | and Time: 01/03/2019 | | | | | | 0029 PST | | | | | | | | | | | | Component Result | | | | | | Reference Range | | | | | | WHITE CELL COUNT 58.87 | | | | | | 3.50-10.80 K/cu mm RED | | | | | | CELL COUNT 4.17 | | | | | | 4.00-5.20 M/cu mm | | | | | | HEMOGLOBIN 13.1 | | | | | | 12.0-16.0 g/dL | | | | | | HEMATOCRIT 39.8 | | | | | | 36.0-46.0 % MCV 95.4 | | | | | | 80.0-100.0 fL MCHC 32.9 | | | | | | 32.0-36.0 g/dL RDW SD | | | | | | 56.5 35.1-46.3 fL | | | | | | PLATELET COUNT 566 | | | | | | 150-400 K/cu mm MPV 11.3 | | | | | | 9.7-12.3 fL NRBC% 0.3 | | | | | | 0.0-0.3 % NRBC# 0.18 | | | | | | 0.00-0.02 K/cu mm | | | | | | MANUAL DIFFERENTIAL | | | | | | | | | | | | Component Result | | | | | | Reference Range | | | | | | NEUTROPHIL % 60.6 | | | | | | 50.0-70.0 % LYMPHOCYTE | | | | | | % 6.5 18.0-42.0 % | | | | | | MONOCYTE % 0.0 | | | | | | 3.5-9.0 % EOSINOPHIL % | | | | | | 2.5 1.0-3.0 % BASOPHIL | | | | | | % 12.3 0.0-2.0 % IG% | | | | | | 15.6 0.0-1.0 % | | | | | | ATYPICAL CELL % 2.5 | | | | | | 0.0 % NEUTROPHIL # | | | | | | 35.68 1.80-7.70 K/cu mm | | | | | | LYMPHOCYTE # 3.83 | | | | | | 1.00-4.80 K/cu mm | | | | | | MONOCYTE # 0.00 | | | | | | 0.10-0.90 K/cu mm | | | | | | EOSINOPHIL # 1.47 | | | | | | 0.00-0.50 K/cu mm | | | | | | BASOPHIL # 7.24 | | | | | | 0.00-0.10 K/cu mm IG# | | | | | | 9.18 0.00-0.10 K/cu mm | | | | | | ATYPICAL CELLS # 1.47 | | | | | | K/cu mm PERIPHERAL BLOOD | | | | | | MORPHOLOGY:WBC: | | | | | | Maturing myeloid cells | | | | | | are left-shifted and | | | | | | show normal nuclear | | | | | | lobation and cytoplasmic | | | | | | granulation. | | | | | | Lymphocytes show a | | | | | | spectrum of mature | | | | | | morphologies. Basophils | | | | | | are markedly increased. | | | | | | 3% circulating blasts. | | | | | | RBC: Minimal | | | | | | anisopoikilocytosis. | | | | | | Platelets: Adequate | | | | | | granulation without | | | | | | clumping. BONE MARROW | | | | | | ASPIRATE SMEARS:Quality: | | | | | | Aparticulate and | | | | | | hemodilute; suboptimal | | | | | | quality. Scattered | | | | | | hematopoietic precursors | | | | | | are present in the | | | | | | background, suggesting | | | | | | at least partial marrow | | | | | | sampling. The touch | | | | | | preparations are | | | | | | adequately cellular. | | | | | | Blasts: Not increased. | | | | | | Myeloids: Increased and | | | | | | left-shifted with | | | | | | complete maturation. No | | | | | | dysplastic features. | | | | | | Erythroids: Relatively | | | | | | decreased. Complete | | | | | | maturation. No | | | | | | dysplastic features. | | | | | | Megakaryocytes: Present. | | | | | | Numerous small | | | | | | hypolobated forms. | | | | | | Lymphocytes: Not | | | | | | increased. No aggregates | | | | | | identified. Plasma | | | | | | cells: Not increased. | | | | | | BONE MARROW | | | | | | DIFFERENTIAL: | | | | | | Preparation: Touch | | | | | | preparations. Myeloids: | | | | | | 88% Erythroids: 5% | | | | | | Blasts: 3% Lymphocytes: | | | | | | 3% Plasma cells: 1% M:E | | | | | | Ratio: 18:1 Total cells | | | | | | counted: 300 BONE MARROW | | | | | | BIOPSY/CLOT | | | | | | SECTION:Quality: | | | | | | Adequate. Clot section | | | | | | contains particles. | | | | | | Cellularity: >95% | | | | | | Myeloids: Increased. | | | | | | Numerous eosinophils. | | | | | | Erythroids: Decreased. | | | | | | Megakaryocytes: | | | | | | Increased with numerous | | | | | | small hypolobated forms. | | | | | | Infiltrate: None. FLOW | | | | | | CYTOMETRIC ANALYSIS: | | | | | | % of total WBC | | | | | | (CD45+)Myeloid Blasts 3 | | | | | | Monocytes 1 Lymphocytes | | | | | | 8 % of | | | | | | LymphocytesB-cells 8 | | | | | | T-cells 84 NK-cells 8 | | | | | | RatioKappa/Lambda | | | | | | Polyclonal CD4/CD8 1.2:1 | | | | | | Summary: B-cells are | | | | | | polyclonal. T-cells show | | | | | | appropriate antigen | | | | | | expression without | | | | | | aberrancy. Granulocytes | | | | | | and monocytes show | | | | | | appropriate antigen | | | | | | expression. Myeloid | | | | | | blasts show an | | | | | | unremarkable | | | | | | immunophenotype with the | | | | | | exception of CD7 and | | | | | | CD11b | | | | | | expression.Antibodies | | | | | | Tested CD1a CD2 sCD3 | | | | | | cCD3 CD4 CD5 CD7 CD8 | | | | | | CD10 CD11b CD13 CD14 | | | | | | CD15 CD16 CD19 CD20 CD22 | | | | | | CD23 CD25 CD33 CD34 | | | | | | CD38 CD9 CD45 CD56 CD64 | | | | | | cCD79a CD103 CD117 CD123 | | | | | | [id number] HLA-DR sKappa | | | | | | sLambda cTDT cMPO | | | | | | IMMUNOHISTOCHEMICAL | | | | | | STAINS: IHC stains were | | | | | | performed on the core | | | | | | biopsy. CD34 and CD117 | | | | | | stain blasts that | | | | | | account for less than 5% | | | | | | of total cellularity; | | | | | | CD117 also stains singly | | | | | | scattered, non-spindled | | | | | | mast cells. CD61 | | | | | | highlights scattered | | | | | | increased megakaryocytes | | | | | | with numerous small and | | | | | | hypolobated | | | | | | forms.SPECIAL STAINS: A | | | | | | reticulin stain on the | | | | | | core biopsy shows mild | | | | | | fibrosis.CYTOGENETIC AND | | | | | | FISH STUDIES: | | | | | | Performed, see separate | | | | | | report.MOLECULAR | | | | | | STUDIES: Performed, see | | | | | | separate report. | | | | + + + + + + | Gross | Both the clot and core | | [facility] | | | Description | biopsy were fixed in | | DEPARTMENT | | | | formalin. The core | | OF | | | | biopsy was decalcified. | | PATHOLOGY | | | | A Moore-stained | | | | | | peripheral blood smear | | | | | | was prepared. B: Bone | | | | | | Marrow Clot -2.5 x 1.8 x | | | | | | 0.2 cmC. Bone Marrow | | | | | | Biopsy -0.7 in 1.2 L x | | | | | | 0.2 D cmIf | | | | | | immunohistochemical | | | | | | analysis (IHC) was | | | | | | performed, it was done | | | | | | to allows assessment of | | | | | | immunoarchitecture, | | | | | | which is not supplied by | | | | | | flow cytometry, whereas | | | | | | flow cytometry enables | | | | | | better assessment of | | | | | | clonality and antigen | | | | | | aberrancy than IHC. | | | | | | Analyte specific | | | | | | reagents are used in | | | | | | many laboratory tests | | | | | | necessary for standard | | | | | | medical care. This test | | | | | | was developed and its | | | | | | performance | | | | | | characteristics | | | | | | determined by [facility] | | | | | laboratories. It has | | | | | | not been cleared or | | | | | | approved by the US Food | | | | | | and Drug Administration | | | | | | (FDA). FDA does not | | | | | | require this test to go | | | | | | through premarket FDA | | | | | | review. This test is | | | | | | used for clinical | | | | | | purposes. It should not | | | | | | be regarded as | | | | | | investigational or for | | | | | | research. This | | | | | | laboratory is certified | | | | | | under the Clinical | | | | | | Laboratory Improvement | | | | | | Amendments (CLIA) as | | | | | | qualified to perform | | | | | | high complexity clinical | | | | | | laboratory testing. | | | | + + + + + + + + | Specimen | + + | Bone marrow - Blood | | (substance) | + + | Bone marrow | | structure (body | | structure) | + + | Bone marrow | | structure (body | | structure) | + + | Blood (substance) | + + + + + + + | Performing | Address | City/State/Zipcode | Phone Number | | Organization | | | | + + + + + | [facility] | [address] | [place] [address] | | | PATHOLOGY | [address] | | | + + + + + RBC MORPHOLOGY (01/02/2019 11:37 PM PST) + + + + + + | Component | Value | Ref Range | Performed | Pathologist | | | | | At | Signature | + + + + + + | ANISOCYTOSI | 1+(10-25cells/HPF) | | [facility] | | | S | | | LABORATORY | | | | | | SERVICES, | | | | | | CORE | | + + + + + + | MACROCYTOSI | 1+(10-25cells/HPF) | | [facility] | | | S | | | LABORATORY | | | | | | SERVICES, | | | | | | CORE | | + + + + + + | SCHISTOCYTE | 1+ (<1-2cells/HPF) | | [facility] | | | S | | | LABORATORY | | | | | | SERVICES, | | | | | | CORE | | + + + + + + + + | Specimen | + + | Blood - Blood | | (substance) | + + + + + + + | Performing | Address | City/State/Zipcode | Phone Number | | Organization | | | | + + + + + | [facility] | [address] | [place] [address] | | | SERVICES, CORE | [address] | | | + + + + + MANUAL DIFFERENTIAL (01/02/2019 11:37 PM PST) + + + + + + | Component | Value | Ref Range | Performed | Pathologist | | | | | At | Signature | + + + + + + | NEUTROPHIL | 60.6 | 50.0 - 70.0 % | [facility] | | | % | | | LABORATORY | | | | | | SERVICES, | | | | | | CORE | | + + + + + + | LYMPHOCYTE | 6.5 (L) | 18.0 - 42.0 % | [facility] | | | % | | | LABORATORY | | | | | | SERVICES, | | | | | | CORE | | + + + + + + | MONOCYTE % | 0.0 (L) | 3.5 - 9.0 % | [facility] | | | | | | LABORATORY | | | | | | SERVICES, | | | | | | CORE | | + + + + + + | EOSINOPHIL | 2.5 | 1.0 - 3.0 % | [facility] | | | % | | | LABORATORY | | | | | | SERVICES, | | | | | | CORE | | + + + + + + | BASOPHIL % | 12.3 (H) | 0.0 - 2.0 % | [facility] | | | | | | LABORATORY | | | | | | SERVICES, | | | | | | CORE | | + + + + + + | IG% | 15.6 (H)Comment: | 0.0 - 1.0 % | [facility] | | | | Increased immature | | LABORATORY | | | | granulocytes(IG)define a | | SERVICES, | | | | left shift.IGs include | | CORE | | | | metamyelocytes, | | | | | | myelocytes and | | | | | | promyelocytes. Bands are | | | | | | included in the | | | | | | neutrophil count, not | | | | | | the IG count, except in | | | | | | neonates <=60 days old | | | | | | where bands are reported | | | | | | in a manual diff. | | | | + + + + + + | ATYPICAL | 2.5 (H)Comment: Atypical | 0.0 % | [facility] | | | CELL % | Cells with fine | | LABORATORY | | | | chromatin, high N-C | | SERVICES, | | | | ratio, prominent | | CORE | | | | nucleoli and dark blue | | | | | | cytoplasm. | | | | + + + + + + | NEUTROPHIL | 35.68 (H) | 1.80 - 7.70 | [facility] | | | # | | K/cu mm | LABORATORY | | | | | | SERVICES, | | | | | | CORE | | + + + + + + | LYMPHOCYTE | 3.83 | 1.00 - 4.80 | [facility] | | | # | | K/cu mm | LABORATORY | | | | | | SERVICES, | | | | | | CORE | | + + + + + + | MONOCYTE # | 0.00 (L) | 0.10 - 0.90 | [facility] | | | | | K/cu mm | LABORATORY | | | | | | SERVICES, | | | | | | CORE | | + + + + + + | EOSINOPHIL | 1.47 (H) | 0.00 - 0.50 | [facility] | | | # | | K/cu mm | LABORATORY | | | | | | SERVICES, | | | | | | CORE | | + + + + + + | BASOPHIL # | 7.24 (H) | 0.00 - 0.10 | [facility] | | | | | K/cu mm | LABORATORY | | | | | | SERVICES, | | | | | | CORE | | + + + + + + | IG# | 9.18 (H) | 0.00 - 0.10 | [facility] | | | | | K/cu mm | LABORATORY | | | | | | SERVICES, | | | | | | CORE | | + + + + + + | ATYPICAL | 1.47 | K/cu mm | [facility] | | | CELLS # | | | LABORATORY | | | | | | SERVICES, | | | | | | CORE | | + + + + + + + + | Specimen | + + | Blood - Blood | | (substance) | + + + + + | Narrative | Performed At | + + + | New pediatric reference ranges for Lymphocyte % in effect April 19, | [facility] | | 2017. Increased immature granulocytes(IG)define a left shift.IGs | LABORATORY | | include metamyelocytes, myelocytes and promyelocytes. Bands are | SERVICES, CORE | | included in the neutrophil count, not the IG count, except in neonates | | | <=60 days old where bands are reported in a manual diff. | | + + + + + + + + | Performing | Address | City/State/Zipcode | Phone Number | | Organization | | | | + + + + + | [facility] | [address] | [place] [address] | | | SERVICES, CORE | [address] | | | + + + + + CBC AND AUTO DIFF (01/02/2019 11:37 PM PST) + + + + + + | Component | Value | Ref Range | Performed | Pathologist | | | | | At | Signature | + + + + + + | WHITE CELL | 58.87 (H) | 3.50 - 10.80 | [facility] | | | COUNT | | K/cu mm | LABORATORY | | | | | | SERVICES, | | | | | | CORE | | + + + + + + | RED CELL | 4.17 | 4.00 - 5.20 | [facility] | | | COUNT | | M/cu mm | LABORATORY | | | | | | SERVICES, | | | | | | CORE | | + + + + + + | HEMOGLOBIN | 13.1 | 12.0 - 16.0 | [facility] | | | | | g/dL | LABORATORY | | | | | | SERVICES, | | | | | | CORE | | + + + + + + | HEMATOCRIT | 39.8 | 36.0 - 46.0 % | [facility] | | | | | | LABORATORY | | | | | | SERVICES, | | | | | | CORE | | + + + + + + | MCV | 95.4 | 80.0 - 100.0 fL | [facility] | | | | | | LABORATORY | | | | | | SERVICES, | | | | | | CORE | | + + + + + + | MCHC | 32.9 | 32.0 - 36.0 | [facility] | | | | | g/dL | LABORATORY | | | | | | SERVICES, | | | | | | CORE | | + + + + + + | RDW SD | 56.5 (H) | 35.1 - 46.3 fL | [facility] | | | | | | LABORATORY | | | | | | SERVICES, | | | | | | CORE | | + + + + + + | PLATELET | 566 (H) | 150 - 400 K/cu | [facility] | | | COUNT | | mm | LABORATORY | | | | | | SERVICES, | | | | | | CORE | | + + + + + + | MPV | 11.3 | 9.7 - 12.3 fL | [facility] | | | | | | LABORATORY | | | | | | SERVICES, | | | | | | CORE | | + + + + + + | NRBC% | 0.3 | 0.0 - 0.3 % | [facility] | | | | | | LABORATORY | | | | | | SERVICES, | | | | | | CORE | | + + + + + + | NRBC# | 0.18 (H) | 0.00 - 0.02 | [facility] | | | | | K/cu mm | LABORATORY | | | | | | SERVICES, | | | | | | CORE | | + + + + + + + + | Specimen | + + | Blood - Blood | | (substance) | + + + + + + + | Performing | Address | City/State/Zipcode | Phone Number | | Organization | | | | + + + + + | [facility] | [address] | [place] [address] | | | SERVICES, CORE | [address] | | | + + + + + URIC ACID, PLASMA (01/02/2019 11:37 PM PST) + +-------+ + + + | Component | Value | Ref Range | Performed | Pathologist | | | | | At | Signature | + +-------+ + + + | URIC ACID, | 4.3 | 2.5 - 6.2 mg/dL | [facility] | | | PLASMA | | | LABORATORY | | | (LAB) | | | SERVICES, | | | | | | CORE | | + +-------+ + + + + + | Specimen | + + | Blood - Blood | | (substance) | + + + + + + + | Performing | Address | City/State/Zipcode | Phone Number | | Organization | | | | + + + + + | [facility] | [address] | [place] [address] | | | SERVICES, MACHO | [address] | | | + + + + + PHOSPHORUS, PLASMA (01/02/2019 11:37 PM PST) + +-------+ + + + | Component | Value | Ref Range | Performed | Pathologist | | | | | At | Signature | + +-------+ + + + | PHOSPHORUS, | 3.7 | 2.4 - 4.7 mg/dL | [facility] | | | PLASMA | | | LABORATORY | | | (LAB) | | | SERVICES, | | | | | | CORE | | + +-------+ + + + + + | Specimen | + + | Blood - Blood | | (substance) | + + + + + + + | Performing | Address | City/State/Zipcode | Phone Number | | Organization | | | | + + + + + | [facility] | [address] | [place] [address] | | | GISSEL, MACHO | [address] | | | + + + + + MAGNESIUM, PLASMA (01/02/2019 11:37 PM PST) + +-------+ + + + | Component | Value | Ref Range | Performed | Pathologist | | | | | At | Signature | + +-------+ + + + | MAGNESIUM,P | 2.2 | 1.6 - 2.6 mg/dL | [facility] | | | LASMA | | | LABORATORY | | | | | | SERVICES, | | | | | | CORE | | + +-------+ + + + + + | Specimen | + + | Blood - Blood | | (substance) | + + + + + + + | Performing | Address | City/State/Zipcode | Phone Number | | Organization | | | | + + + + + | [facility] | [address] | [place] [address] | | | SERVICES, CORE | [address] | | | + + + + + LDH TOTAL, PLASMA (01/02/2019 11:37 PM PST) + +---------+ + + + | Component | Value | Ref Range | Performed | Pathologist | | | | | At | Signature | + +---------+ + + + | LD TOTAL, | 597 (H) | <=250 U/L | [facility] | | | PLASMA | | | LABORATORY | | | | | | SERVICES, | | | | | | CORE | | + +---------+ + + + | LD CMNT | [address] | | [facility] | | | | | | LABORATORY | | | | | | SERVICES, | | | | | | CORE | | + +---------+ + + + + + | Specimen | + + | Blood - Blood | | (substance) | + + + + + | Narrative | Performed At | + + + | Sample hemolyzed. Results for K, Total Bili, Direct Bili, AST, | [facility] | | LDH, or HDL may be inaccurate. Refer to comment under test result. | LABORATORY | | | [address] | + + + + + + + + | Performing | Address | City/State/Zipcode | Phone Number | | Organization | | | | + + + + + | [facility] | [address] | [place] [address] | | | MACHO CHAUHAN | [address] | | | + + + + + COMPLETE METABOLIC SET (NA,K,CL,CO2,BUN,CREAT,GLUC,CA,AST,ALT,BILI TOTAL,ALK PHOS,ALB,PROT TOTAL) (01/02/2019 11:37 PM PST) + +---------+ + + + | Component | Value | Ref Range | Performed | Pathologist | | | | | At | Signature | + +---------+ + + + | GLUCOSE, | 88 | 70 - 99 mg/dL | [facility] | | | PLASMA | | | LABORATORY | | | (LAB) | | | SERVICES, | | | | | | CORE | | + +---------+ + + + | BUN, PLASMA | 13 | 6 - 20 mg/dL | [facility] | | | (LAB) | | | LABORATORY | | | | | | SERVICES, | | | | | | CORE | | + +---------+ + + + | CREATININE | 0.92 | 0.60 - 1.10 | [facility] | | | PLASMA | | mg/dL | LABORATORY | | | (LAB) | | | SERVICES, | | | | | | CORE | | + +---------+ + + + | EGFR | >60 | >60 mL/min | [facility] | | | - | | | LABORATORY | | | SALVADOREAN | | | SERVICES, | | | | | | CORE | | + +---------+ + + + | EGFR NON | >60 | >60 mL/min | [facility] | | | -REI | | | LABORATORY | | | RICAN | | | SERVICES, | | | | | | CORE | | + +---------+ + + + | SODIUM, | 144 | 136 - 145 | [facility] | | | PLASMA | | mmol/L | LABORATORY | | | (LAB) | | | SERVICES, | | | | | | CORE | | + +---------+ + + + | POTASSIUM, | 4.6 | 3.4 - 5.0 | [facility] | | | PLASMA | | mmol/L | LABORATORY | | | (LAB) | | | SERVICES, | | | | | | CORE | | + +---------+ + + + | CHLORIDE, | 114 (H) | 97 - 108 mmol/L | [facility] | | | PLASMA | | | LABORATORY | | | (LAB) | | | SERVICES, | | | | | | CORE | | + +---------+ + + + | TOTAL CO2, | 22 | 21 - 32 mmol/L | [facility] | | | PLASMA | | | LABORATORY | | | (LAB) | | | SERVICES, | | | | | | CORE | | + +---------+ + + + | CALCIUM, | 7.9 (L) | 8.6 - 10.2 | [facility] | | | PLASMA | | mg/dL | LABORATORY | | | (LAB) | | | SERVICES, | | | | | | CORE | | + +---------+ + + + | CALCIUM(ALB | 8.4 (L) | 8.6 - 10.2 | [facility] | | | CORRECTED) | | mg/dL | LABORATORY | | | | | | SERVICES, | | | | | | CORE | | + +---------+ + + + | BILIRUBIN | 0.3 | 0.3 - 1.2 mg/dL | [facility] | | | TOTAL | | | LABORATORY | | | | | | SERVICES, | | | | | | CORE | | + +---------+ + + + | TOTAL | 5.8 (L) | 6.4 - 8.2 g/dL | [facility] | | | PROTEIN, | | | LABORATORY | | | PLASMA | | | SERVICES, | | | (LAB) | | | CORE | | + +---------+ + + + | ALBUMIN, | 3.4 (L) | 3.5 - 4.7 g/dL | [facility] | | | PLASMA | | | LABORATORY | | | (LAB) | | | SERVICES, | | | | | | CORE | | + +---------+ + + + | ALK PHOS | 54 | 42 - 98 U/L | [facility] | | | | | | LABORATORY | | | | | | SERVICES, | | | | | | CORE | | + +---------+ + + + | AST(SGOT) | 24 | <=41 U/L | [facility] | | | | | | LABORATORY | | | | | | SERVICES, | | | | | | CORE | | + +---------+ + + + | ALT (SGPT) | 30 | <=60 U/L | [facility] | | | | | | LABORATORY | | | | | | SERVICES, | | | | | | CORE | | + +---------+ + + + | ANION GAP | 8 | 4 - 11 mmol/L | [facility] | | | | | | LABORATORY | | | | | | SERVICES, | | | | | | CORE | | + +---------+ + + + | ANION | 9 | 4 - 11 mmol/L | [facility] | | | GAP(ALB | | | LABORATORY | | | CORRECTED) | | | SERVICES, | | | | | | CORE | | + +---------+ + + + | POTASSIUM | Sl Hemo | | [facility] | | | CMNT | | | LABORATORY | | | | | | SERVICES, | | | | | | CORE | | + +---------+ + + + | AST CMNT | Sl Hemo | | [facility] | | | | | | LABORATORY | | | | | | SERVICES, | | | | | | CORE | | + +---------+ + + + + + | Specimen | + + | Blood - Blood | | (substance) | + + + + + | Narrative | Performed At | + + + | Sample hemolyzed. Results for K, Total Bili, Direct Bili, AST, | [facility] | | LDH, or HDL may be inaccurate. Refer to comment under test result. | LABORATORY | | GFR is estimated using the MDRD equation recommended by the National | SERVICES, CORE | | Kidney Disease Education Program. Estimated GFR Interpretive | | | Information: <60 mL/min/1.73 sq m Chronic Kidney | | | Disease <15 mL/min/1.73 sq m Kidney Failure | | | Estimated GFR greater than 60 mL/min/1.73 sq m is of limited clinical | | | value. The MDRD equation is not valid in the following situations: | | | - Patients under 18 years of age - Severe malnutrition or obesity | | | - Vegetarian diet - Rapidly changing kidney function - Amputees, | | | paraplegics, or other muscle-wasting diseses | | + + + + + + + + | Performing | Address | City/State/Zipcode | Phone Number | | Organization | | | | + + + + + | [facility] | [address] | [place] [address] | | | MACHO CHAUHAN | [address] | | | + + + + + VRE (PINA) BY PCR (01/02/2019 6:42 PM PST) + + + + + + | Component | Value | Ref Range | Performed | Pathologist | | | | | At | Signature | + + + + + + | VRE BY PCR | Negative for van A gene | Negative for | [facility] | | | | | van A gene | LABORATORY | | | | | | SERVICES, | | | | | | CORE | | + + + + + + + + | Specimen | + + | Swab - Rectum | | structure (body | | structure) | + + + + + + + | Performing | Address | City/State/Zipcode | Phone Number | | Organization | | | | + + + + + | [facility] | [address] | [place] [address] | | | SERVICES, CORE | [address] | | | + + + + + 12 LEAD ECG (01/02/2019 8:53 AM PST) + + + + + + | Component | Value | Ref Range | Performed | Pathologist | | | | | At | Signature | + + + + + + | VENTRICULAR | 77 | bpm | [facility] | | | RATE | | | OF | | | | | | CARDIOLOGY | | + + + + + + | ATRIAL RATE | 74 | ms | [facility] | | | | | | OF | | | | | | CARDIOLOGY | | + + + + + + | P-R | 105 | ms | [facility] | | | INTERVAL | | | OF | | | | | | CARDIOLOGY | | + + + + + + | P AXIS | 45 | deg | [facility] | | | | | | OF | | | | | | CARDIOLOGY | | + + + + + + | QRS | 93 | ms | [facility] | | | DURATION | | | OF | | | | | | CARDIOLOGY | | + + + + + + | QT | 367 | ms | [facility] | | | | | | OF | | | | | | CARDIOLOGY | | + + + + + + | QTC-BAZETT | 414 | ms | [facility] | | | | | | OF | | | | | | CARDIOLOGY | | + + + + + + | R AXIS | -26 | deg | [facility] | | | | | | OF | | | | | | CARDIOLOGY | | + + + + + + | T AXIS | 44 | deg | [facility] | | | | | | OF | | | | | | CARDIOLOGY | | + + + + + + | ECG | Sinus rhythm | | [facility] | | | IMPRESSION | | | OF | | | | | | CARDIOLOGY | | + + + + + + | ECG | Short CO interval- | | [facility] | | | IMPRESSION | BORDERLINE ECG - | | OF | | | | | | CARDIOLOGY | | + + + + + + | ECG | Electronically signed | | [facility] | | | IMPRESSION | by: SANDRA MIRANDA | | OF | | | | 01-02-2019 11:33:30 | | CARDIOLOGY | | + + + + + + + + | Specimen | + + | | + + + + + | Narrative | Performed At | + + + | | | + + + + + + + + | Performing | Address | City/State/Zipcode | Phone Number | | Organization | | | | + + + + + | [facility] | [address] | [place], [place] | | | CARDIOLOGY | [address] | [address] | | + + + + + AML FISH PANEL (01/02/2019 7:19 AM PST) + +-------+ + + + | Component | Value | Ref Range | Performed | Pathologist | | | | | At | Signature | + +-------+ + + + | CS | 100 | | [facility] | | | METASYSTEMS | | | DIAGNOSTIC | | | | | | | | | BCR(22Q11.2 | | | LABORATORIE | | | )(SG)/ABL(9 | | | S | | | Q34)(SO)+ | | | | | | S(9Q34) | | | | | + +-------+ + + + + + | Specimen | + + | Blood - Blood | | (substance) | + + + + + + + | Performing | Address | City/State/Zipcode | Phone Number | | Organization | | | | + + + + + | [facility] | [address] | [place] [address] | | | DIAGNOSTIC | [address] | | | | LABORATORIES | | | | + + + + + FISH, MOLECULAR PROBE - CYTOGENETICS (01/02/2019 7:19 AM PST) + + + + + + | Component | Value | Ref Range | Performed | Pathologist | | | | | At | Signature | + + + + + + | Impressions | FISH was performed with | | [facility] | | | and | the BCR/ABL probe set, | | DIAGNOSTIC | | | Recommendat | as listed below. 88% | | | | | ions | of cells had the [id number] | | LABORATORIE | | | | dual-fusion signal | | S | | | | pattern consistent with | | | | | | BCR/ABL fusion and | | | | | | t(9;22). (Comment: | | | | | | This interphase FISH | | | | | | study assesses only the | | | | | | probe-specific regions | | | | | | listed below. It is | | | | | | not intended to stand | | | | | | alone, but rather to | | | | | | provide supplemental | | | | | | information to routine | | | | | | cytogenetic studies, | | | | | | clinical assessment and | | | | | | pathological findings.) | | | | | | Thank you very much for | | | | | | your referral. If you | | | | | | have any questions | | | | | | regarding this report or | | | | | | future cytogenetic | | | | | | testing issues, please | | | | | | feel free to contact us. | | | | | | Reason for Referral: | | | | | | leukocytosis The | | | | | | clinical interpretation | | | | | | was made by the clinical | | | | | | geophysical computer. Preliminary | | | | | | Report Date: FISH: | | | | | | 01/03/2019 verbal to | | | | | | Belkis Tristan by | | | | | | Cindy Zelaya | | | | + + + + + + | DISCLAIMER | This test was developed | | [facility] | | | | and its performance | | DIAGNOSTIC | | | | characteristics | | | | | | determined by the [facility] | | LABORATORIE | | | | [facility] | | S | | | | Laboratories. It has | | | | | | not been cleared or | | | | | | approved by the Food and | | | | | | Drug Administration. | | | | | | FDA approval is not | | | | | | required for the | | | | | | clinical use of the | | | | | | test, and therefore | | | | | | validation was done as | | | | | | required under the | | | | | | requirements of the | | | | | | Clinical Laboratory | | | | | | Improvement Act of 1988 | | | | | | (CLIA). The [facility] | | | | | | [facility] | | | | | | Laboratories are fully | | | | | | licensed by the state of | | | | | | [place] under CLIA and | | | | | | are accredited by the | | | | | | [employer] | | | | | | Pathologists ([employer]). | | | | | | Medical Office Clerk: | | | | | | Aftab James, | | | | | | M.Matthias., Ph.D | | | | | | Electronically reviewed | | | | | | and signed by:Ernesto | | | | | | Jeferson, PhD, | | | | | | FACMGClinical | | | | | | Assembler Product Clinical | | | | | | Molecular | | | | | | Geneticist01/03/2019 at | | | | | | 1:06 PM Reviewed and | | | | | | electronically signed | | | | | | by LICHA HOUSE, | | | | | | ,FAC01/03/2019 6:58 | | | | | | PM | | | | + + + + + + + + | Specimen | + + | Blood | + + + + + + + | Performing | Address | City/State/Zipcode | Phone Number | | Organization | | | | + + + + + | [facility] | [address] | [place] [address] | | | DIAGNOSTIC | [address] | | | | LABORATORIES | | | | + + + + + RBC MORPHOLOGY (01/02/2019 7:19 AM PST) + + + + + + | Component | Value | Ref Range | Performed | Pathologist | | | | | At | Signature | + + + + + + | ANISOCYTOSI | 1+(10-25cells/HPF) | | [facility] | | | S | | | LABORATORY | | | | | | SERVICES, | | | | | | CORE | | + + + + + + | MACROCYTOSI | 1+(10-25cells/HPF) | | [facility] | | | S | | | LABORATORY | | | | | | SERVICES, | | | | | | CORE | | + + + + + + + + | Specimen | + + | Blood - Blood | | (substance) | + + + + + + + | Performing | Address | City/State/Zipcode | Phone Number | | Organization | | | | + + + + + | [facility] | [address] | [place] [address] | | | SERVICES, CORE | [address] | | | + + + + + MANUAL DIFFERENTIAL (01/02/2019 7:19 AM PST) + + + + + + | Component | Value | Ref Range | Performed | Pathologist | | | | | At | Signature | + + + + + + | NEUTROPHIL | 50.0 | 50.0 - 70.0 % | [facility] | | | % | | | LABORATORY | | | | | | SERVICES, | | | | | | CORE | | + + + + + + | LYMPHOCYTE | 7.4 (L) | 18.0 - 42.0 % | [facility] | | | % | | | LABORATORY | | | | | | SERVICES, | | | | | | CORE | | + + + + + + | MONOCYTE % | 3.0 (L) | 3.5 - 9.0 % | [facility] | | | | | | LABORATORY | | | | | | SERVICES, | | | | | | CORE | | + + + + + + | EOSINOPHIL | 0.7 (L) | 1.0 - 3.0 % | [facility] | | | % | | | LABORATORY | | | | | | SERVICES, | | | | | | CORE | | + + + + + + | BASOPHIL % | 14.7 (H) | 0.0 - 2.0 % | [facility] | | | | | | LABORATORY | | | | | | SERVICES, | | | | | | CORE | | + + + + + + | IG% | 21.3 (H)Comment: | 0.0 - 1.0 % | [facility] | | | | Increased immature | | LABORATORY | | | | granulocytes(IG)define a | | SERVICES, | | | | left shift.IGs include | | CORE | | | | metamyelocytes, | | | | | | myelocytes and | | | | | | promyelocytes. Bands are | | | | | | included in the | | | | | | neutrophil count, not | | | | | | the IG count, except in | | | | | | neonates <=60 days old | | | | | | where bands are reported | | | | | | in a manual diff. | | | | + + + + + + | ATYPICAL | 2.9 (H)Comment: Atypical | 0.0 % | [facility] | | | CELL % | Cells with fine | | LABORATORY | | | | chromatin, high N-C | | SERVICES, | | | | ratio, prominent | | CORE | | | | nucleoli and dark blue | | | | | | cytoplasm. | | | | + + + + + + | NEUTROPHIL | 33.78 (H) | 1.80 - 7.70 | [facility] | | | # | | K/cu mm | LABORATORY | | | | | | SERVICES, | | | | | | CORE | | + + + + + + | LYMPHOCYTE | 5.00 (H) | 1.00 - 4.80 | [facility] | | | # | | K/cu mm | LABORATORY | | | | | | SERVICES, | | | | | | CORE | | + + + + + + | MONOCYTE # | 2.03 (H) | 0.10 - 0.90 | [facility] | | | | | K/cu mm | LABORATORY | | | | | | SERVICES, | | | | | | CORE | | + + + + + + | EOSINOPHIL | 0.47 | 0.00 - 0.50 | [facility] | | | # | | K/cu mm | LABORATORY | | | | | | SERVICES, | | | | | | CORE | | + + + + + + | BASOPHIL # | 9.93 (H) | 0.00 - 0.10 | [facility] | | | | | K/cu mm | LABORATORY | | | | | | SERVICES, | | | | | | CORE | | + + + + + + | IG# | 14.39 (H) | 0.00 - 0.10 | [facility] | | | | | K/cu mm | LABORATORY | | | | | | SERVICES, | | | | | | CORE | | + + + + + + | ATYPICAL | 1.96 | K/cu mm | [facility] | | | CELLS # | | | LABORATORY | | | | | | SERVICES, | | | | | | CORE | | + + + + + + + + | Specimen | + + | Blood - Blood | | (substance) | + + + + + | Narrative | Performed At | + + + | New pediatric reference ranges for Lymphocyte % in effect April 19, | [facility] | | 2018. Increased immature granulocytes(IG)define a left shift.IGs | LABORATORY | | include metamyelocytes, myelocytes and promyelocytes. Bands are | SERVICES, CORE | | included in the neutrophil count, not the IG count, except in neonates | | | <=60 days old where bands are reported in a manual diff. | | + + + + + + + + | Performing | Address | City/State/Zipcode | Phone Number | | Organization | | | | + + + + + | [facility] | [address] | [place] [address] | | | SERVICES, CORE | [address] | | | + + + + + CBC AND AUTO DIFF (01/02/2019 7:19 AM PST) + + + + + + | Component | Value | Ref Range | Performed | Pathologist | | | | | At | Signature | + + + + + + | WHITE CELL | 67.56 (H) | 3.50 - 10.80 | [facility] | | | COUNT | | K/cu mm | LABORATORY | | | | | | SERVICES, | | | | | | CORE | | + + + + + + | RED CELL | 4.65 | 4.00 - 5.20 | [facility] | | | COUNT | | M/cu mm | LABORATORY | | | | | | SERVICES, | | | | | | CORE | | + + + + + + | HEMOGLOBIN | 14.7 | 12.0 - 16.0 | [facility] | | | | | g/dL | LABORATORY | | | | | | SERVICES, | | | | | | CORE | | + + + + + + | HEMATOCRIT | 43.8 | 36.0 - 46.0 % | [facility] | | | | | | LABORATORY | | | | | | SERVICES, | | | | | | CORE | | + + + + + + | MCV | 94.2 | 80.0 - 100.0 fL | [facility] | | | | | | LABORATORY | | | | | | SERVICES, | | | | | | CORE | | + + + + + + | MCHC | 33.6 | 32.0 - 36.0 | [facility] | | | | | g/dL | LABORATORY | | | | | | SERVICES, | | | | | | CORE | | + + + + + + | RDW SD | 56.8 (H) | 35.1 - 46.3 fL | [facility] | | | | | | LABORATORY | | | | | | SERVICES, | | | | | | CORE | | + + + + + + | PLATELET | 623 (H)Comment: Macro | 150 - 400 K/cu | [facility] | | | COUNT | platelets present. | mm | LABORATORY | | | | | | SERVICES, | | | | | | CORE | | + + + + + + | MPV | 11.2 | 9.7 - 12.3 fL | [facility] | | | | | | LABORATORY | | | | | | SERVICES, | | | | | | CORE | | + + + + + + | NRBC% | 0.2 | 0.0 - 0.3 % | [facility] | | | | | | LABORATORY | | | | | | SERVICES, | | | | | | CORE | | + + + + + + | NRBC# | 0.13 (H) | 0.00 - 0.02 | [facility] | | | | | K/cu mm | LABORATORY | | | | | | SERVICES, | | | | | | CORE | | + + + + + + + + | Specimen | + + | Blood - Blood | | (substance) | + + + + + + + | Performing | Address | City/State/Zipcode | Phone Number | | Organization | | | | + + + + + | [facility] | [address] | [place] [address] | | | SERVICES, CORE | [address] | | | + + + + + LEUKEMIA/LYMPHOMA MARKER - BLOOD (01/02/2019 7:19 AM PST) + + + + + + | Component | Value | Ref Range | Performed | Pathologist | | | | | At | Signature | + + + + + + | Final | Peripheral blood, flow | | [facility] | Electronically | | Pathologic | cytometric analysis:- | | DEPARTMENT | signed by Cely | | Diagnosis | Findings consistent with | | OF | Zoey Chirinos MD | | | an evolving | | 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, with: - | | | | | | Neutrophilia, with | | | | | | frequent circulating | | | | | | myeloid precursors | | | | | | - Occasional | | | | | | circulating blasts | | | | | | identified (~5%) | | | | | | - Marked basophilia | | | | | | - Mild eosinophilia | | | | | | - Thrombocytosis, | | | | | | with giant platelets | | | | | | identifiedComment: The | | | | | | mildly increased myeloid | | | | | | blast population has an | | | | | | abnormal phenotype: | | | | | | CD7, partial CD9, dim | | | | | | CD11b, CD13, CD34, CD117 | | | | | | and HLA-DR+, supporting | | | | | | the interpretation of a | | | | | | neoplastic process. | | | | | | Correlation with bone | | | | | | marrow findings, | | | | | | cytogenetics/FISH and | | | | | | molecular studies is | | | | | | recommended for | | | | | | definitive diagnosis. | | | | | | This case was also | | | | | | reviewed by Drs. Miller | | | | | | and Ryan at | | | | | | Hematopathology QA | | | | | | Conference on 01/02/2019; | | | | | | they concur with this | | | | | | interpretation. Case | | | | | | seen by:Katina iDop, | | | | | | DO - Pathology | | | | | | Sushil Chirinos MD | | | | | | - | | | | | | HematopathologistPatholo | | | | | | gy, [facility] & | | | | | | [facility] | | | | | | electronic signature | | | | | | indicates that I have | | | | | | personally reviewed all | | | | | | diagnostic slides, the | | | | | | gross and/or microscopic | | | | | | portion of this report | | | | | | and formulated the final | | | | | | diagnosis.CLINICAL | | | | | | HISTORY: The patient is | | | | | | a 33 year old woman | | | | | | with months of | | | | | | malaise/fatigue, | | | | | | unintentional weight | | | | | | loss (~40 lbs since late | | | | | | 09/2018), watery | | | | | | diarrhea, found to have | | | | | | leukocytosis and | | | | | | thrombocytosis. CBC: | | | | | | Collection Date and | | | | | | Time: 01/02/2019 05:39 | | | | | | Ref Range & Units Value | | | | | | WHITE CELL COUNT 3.50 - | | | | | | 10.80 K/cu mm 65.07 | | | | | | RED CELL COUNT 4.00 - | | | | | | 5.20 M/cu mm 4.54 | | | | | | HEMOGLOBIN 12.0 - 16.0 | | | | | | g/dL 14.0 HEMATOCRIT | | | | | | 36.0 - 46.0 % 42.8 MCV | | | | | | 80.0 - 100.0 fL 94.3 | | | | | | MCHC 32.0 - 36.0 g/dL | | | | | | 32.7 RDW SD 35.1 - 46.3 | | | | | | fL 55.8 PLATELET | | | | | | COUNT 150 - 400 K/cu mm | | | | | | 604 Comment: Macro | | | | | | platelets present. MPV | | | | | | 9.7 - 12.3 fL 11.1 | | | | | | NRBC% 0.0 - 0.3 % 0.2 | | | | | | NRBC# 0.00 - 0.02 K/cu | | | | | | mm 0.13 NEUTROPHIL % | | | | | | 50.0 - 70.0 % 55.1 | | | | | | LYMPHOCYTE % 18.0 - 42.0 | | | | | | % 4.2 MONOCYTE % 3.5 | | | | | | - 9.0 % 1.7 EOSINOPHIL | | | | | | % 1.0 - 3.0 % 0.9 | | | | | | BASOPHIL % 0.0 - 2.0 % | | | | | | 5.9 IG% 0.0 - 1.0 % | | | | | | 27.1 Comment: | | | | | | Increased immature | | | | | | granulocytes(IG)define a | | | | | | left shift.IGs include | | | | | | metamyelocytes, | | | | | | myelocytes and | | | | | | promyelocytes. Bands are | | | | | | included in the | | | | | | neutrophil count, not | | | | | | the IG count, except in | | | | | | neonates <=60 days old | | | | | | where bands are reported | | | | | | in a manual diff. | | | | | | ATYPICAL CELL % 0.0 % | | | | | | 4.2 Comment: Atypical | | | | | | Cells with fine | | | | | | chromatin, high N-C | | | | | | ratio, prominent | | | | | | nucleoli and dark blue | | | | | | cytoplasm. REACTIVE | | | | | | LYMPHS % 0.0 - 10.0 % | | | | | | 0.9 Comment: Fewer than | | | | | | 10% Reactive Lymphs | | | | | | noted on scan. | | | | | | NEUTROPHIL # 1.80 - 7.70 | | | | | | K/cu mm 35.85 | | | | | | LYMPHOCYTE # 1.00 - 4.80 | | | | | | K/cu mm 2.73 MONOCYTE | | | | | | # 0.10 - 0.90 K/cu mm | | | | | | 1.11 EOSINOPHIL # 0.00 | | | | | | - 0.50 K/cu mm 0.59 | | | | | | BASOPHIL # 0.00 - 0.10 | | | | | | K/cu mm 3.84 IG# 0.00 | | | | | | - 0.10 K/cu mm 17.63 | | | | | | ATYPICAL CELLS # K/cu mm | | | | | | 2.73 REACTIVE LYMPHS # | | | | | | K/cu mm 0.59 Component | | | | | | Value ANISOCYTOSIS | | | | | | 1+(10-25cells/HPF) | | | | | | MACROCYTOSIS | | | | | | 1+(10-25cells/HPF) | | | | | | PERIPHERAL BLOOD | | | | | | MORPHOLOGY:WBC: The | | | | | | white blood cells are | | | | | | markedly increased with | | | | | | increased neutrophils | | | | | | with normal morphology. | | | | | | There are also numerous | | | | | | myeloid precursors and | | | | | | occasional circulating | | | | | | blasts. Basophils are | | | | | | markedly increased and | | | | | | eosinophils are mildly | | | | | | increased. Lymphocytes | | | | | | and monocytes show a | | | | | | normal spectrum of | | | | | | morphologies. RBC: The | | | | | | red blood cells are | | | | | | normal in number, | | | | | | normocytic, | | | | | | normochromic, and | | | | | | express minimal | | | | | | anisopoikilocytosis. | | | | | | Platelets: Platelets are | | | | | | markedly increased and | | | | | | show adequate | | | | | | granulation without | | | | | | clumping. Giant forms | | | | | | are present. FLOW | | | | | | CYTOMETRIC ANALYSIS: % | | | | | | of total WBC | | | | | | (CD45+)Myeloid Blasts 5 | | | | | | Monocytes 1 Lymphocytes | | | | | | 13 % of | | | | | | LymphocytesB-cells 3 | | | | | | T-Cells 89 NK-cells 8 | | | | | | RatioKappa/Lambda 1.3:1 | | | | | | CD4/CD8 2.1:1 Summary: | | | | | | A mildly increased | | | | | | myeloid blast population | | | | | | is identified, with the | | | | | | following abnormal | | | | | | phenotype: CD7, partial | | | | | | CD9, dim CD11b, CD13, | | | | | | CD34, CD117, | | | | | | HLA-DR+.Antibodies | | | | | | Tested CD2 CD3 CD4 CD5 | | | | | | CD7 CD8 CD10 CD11b CD13 | | | | | | CD14 CD15 CD16 CD19 CD20 | | | | | | CD23 CD25 CD33 CD34 | | | | | | CD38 CD9 CD45 CD56 CD64 | | | | | | CD103 CD117 CD123 FE021g | | | | | | HLA-DR sKappa sLambda | | | | + + + + + + | Gross | A Moore-stained | | [facility] | | | Description | peripheral blood smear | | DEPARTMENT | | | | and/or a cytospin was | | OF | | | | reviewed.Analyte | | PATHOLOGY | | | | specific reagents are | | | | | | used in many laboratory | | | | | | tests necessary for | | | | | | standard medical care. | | | | | | This test was developed | | | | | | and its performance | | | | | | characteristics | | | | | | determined by [facility] | | | | | | laboratories. It has | | | | | | not been cleared or | | | | | | approved by the [place] Food | | | | | | and Drug Administration | | | | | | (FDA). FDA does not | | | | | | require this test to go | | | | | | through premarket FDA | | | | | | review. This test is | | | | | | used for clinical | | | | | | purposes. It should not | | | | | | be regarded as | | | | | | investigational or for | | | | | | research. This | | | | | | laboratory is certified | | | | | | under the Clinical | | | | | | Laboratory Improvement | | | | | | Amendments (CLIA) as | | | | | | qualified to perform | | | | | | high complexity clinical | | | | | | laboratory testing. | | | | + + + + + + + + | Specimen | + + | Blood - Blood | | (substance) | + + + + + + + | Performing | Address | City/State/Zipcode | Phone Number | | Organization | | | | + + + + + | [facility] | [address] | [place] [address] | | | PATHOLOGY | [address] | | | + + + + + CONFIRMATORY ABO/RH (01/02/2019 5:40 AM PST) + + + + + + | Component | Value | Ref Range | Performed | Pathologist | | | | | At | Signature | + + + + + + | ABO Group | A | | [facility] | | | | | | LABORATORY | | | | | | SERVICES, | | | | | | TRANSFUSION | | | | | | MEDICINE | | + + + + + + | Rh Type | Positive | | [facility] | | | | | | LABORATORY | | | | | | SERVICES, | | | | | | TRANSFUSION | | | | | | MEDICINE | | + + + + + + + + | Specimen | + + | Blood - Blood | | (substance) | + + + + + + + | Performing | Address | City/State/Zipcode | Phone Number | | Organization | | | | + + + + + | [facility] | [address] | [place] [address] | | | SERVICES, | [address] | | | | TRANSFUSION MEDICINE | | | | + + + + + ANTIBODY SCREEN (01/02/2019 5:40 AM PST) + + + + + + | Component | Value | Ref Range | Performed | Pathologist | | | | | At | Signature | + + + + + + | Antibody | Negative | | [facility] | | | Screen | | | LABORATORY | | | | | | SERVICES, | | | | | | TRANSFUSION | | | | | | MEDICINE | | + + + + + + + + | Specimen | + + | Blood - Blood | | (substance) | + + + + + + + | Performing | Address | City/State/Zipcode | Phone Number | | Organization | | | | + + + + + | [facility] | [address] | [place] [address] | | | SERVICES, | [address] | | | | TRANSFUSION MEDICINE | | | | + + + + + ABO & RH TYPE (01/02/2019 5:40 AM PST) + + + + + + | Component | Value | Ref Range | Performed | Pathologist | | | | | At | Signature | + + + + + + | ABO Group | A | | [facility] | | | | | | LABORATORY | | | | | | SERVICES, | | | | | | TRANSFUSION | | | | | | MEDICINE | | + + + + + + | Rh Type | Positive | | [facility] | | | | | | LABORATORY | | | | | | SERVICES, | | | | | | TRANSFUSION | | | | | | MEDICINE | | + + + + + + + + | Specimen | + + | Blood - Blood | | (substance) | + + + + + + + | Performing | Address | City/State/Zipcode | Phone Number | | Organization | | | | + + + + + | [facility] | [address] | [place] [address] | | | SERVICES, | [address] | | | | TRANSFUSION MEDICINE | | | | + + + + + RBC MORPHOLOGY (01/02/2019 5:39 AM PST) + + + + + + | Component | Value | Ref Range | Performed | Pathologist | | | | | At | Signature | + + + + + + | ANISOCYTOSI | 1+(10-25cells/HPF) | | [facility] | | | S | | | LABORATORY | | | | | | SERVICES, | | | | | | CORE | | + + + + + + | MACROCYTOSI | 1+(10-25cells/HPF) | | [facility] | | | S | | | LABORATORY | | | | | | SERVICES, | | | | | | CORE | | + + + + + + + + | Specimen | + + | Blood - Blood | | (substance) | + + + + + + + | Performing | Address | City/State/Zipcode | Phone Number | | Organization | | | | + + + + + | [facility] | [address] | [place] [address] | | | SERVICES, CORE | [address] | | | + + + + + MANUAL DIFFERENTIAL (01/02/2019 5:39 AM PST) + + + + + + | Component | Value | Ref Range | Performed | Pathologist | | | | | At | Signature | + + + + + + | NEUTROPHIL | 55.1 | 50.0 - 70.0 % | [facility] | | | % | | | LABORATORY | | | | | | SERVICES, | | | | | | CORE | | + + + + + + | LYMPHOCYTE | 4.2 (L) | 18.0 - 42.0 % | [facility] | | | % | | | LABORATORY | | | | | | SERVICES, | | | | | | CORE | | + + + + + + | MONOCYTE % | 1.7 (L) | 3.5 - 9.0 % | [facility] | | | | | | LABORATORY | | | | | | SERVICES, | | | | | | CORE | | + + + + + + | EOSINOPHIL | 0.9 (L) | 1.0 - 3.0 % | [facility] | | | % | | | LABORATORY | | | | | | SERVICES, | | | | | | CORE | | + + + + + + | BASOPHIL % | 5.9 (H) | 0.0 - 2.0 % | [facility] | | | | | | LABORATORY | | | | | | SERVICES, | | | | | | CORE | | + + + + + + | IG% | 27.1 (H)Comment: | 0.0 - 1.0 % | [facility] | | | | Increased immature | | LABORATORY | | | | granulocytes(IG)define a | | SERVICES, | | | | left shift.IGs include | | CORE | | | | metamyelocytes, | | | | | | myelocytes and | | | | | | promyelocytes. Bands are | | | | | | included in the | | | | | | neutrophil count, not | | | | | | the IG count, except in | | | | | | neonates <=60 days old | | | | | | where bands are reported | | | | | | in a manual diff. | | | | + + + + + + | ATYPICAL | 4.2 (H)Comment: Atypical | 0.0 % | [facility] | | | CELL % | Cells with fine | | LABORATORY | | | | chromatin, high N-C | | SERVICES, | | | | ratio, prominent | | CORE | | | | nucleoli and dark blue | | | | | | cytoplasm. | | | | + + + + + + | REACTIVE | 0.9Comment: Fewer than | 0.0 - 10.0 % | [facility] | | | LYMPHS % | 10% Reactive Lymphs | | LABORATORY | | | | noted on scan. | | SERVICES, | | | | | | CORE | | + + + + + + | NEUTROPHIL | 35.85 (H) | 1.80 - 7.70 | [facility] | | | # | | K/cu mm | LABORATORY | | | | | | SERVICES, | | | | | | CORE | | + + + + + + | LYMPHOCYTE | 2.73 | 1.00 - 4.80 | [facility] | | | # | | K/cu mm | LABORATORY | | | | | | SERVICES, | | | | | | CORE | | + + + + + + | MONOCYTE # | 1.11 (H) | 0.10 - 0.90 | [facility] | | | | | K/cu mm | LABORATORY | | | | | | SERVICES, | | | | | | CORE | | + + + + + + | EOSINOPHIL | 0.59 (H) | 0.00 - 0.50 | [facility] | | | # | | K/cu mm | LABORATORY | | | | | | SERVICES, | | | | | | CORE | | + + + + + + | BASOPHIL # | 3.84 (H) | 0.00 - 0.10 | [facility] | | | | | K/cu mm | LABORATORY | | | | | | SERVICES, | | | | | | CORE | | + + + + + + | IG# | 17.63 (H) | 0.00 - 0.10 | [facility] | | | | | K/cu mm | LABORATORY | | | | | | SERVICES, | | | | | | CORE | | + + + + + + | ATYPICAL | 2.73 | K/cu mm | [facility] | | | CELLS # | | | LABORATORY | | | | | | SERVICES, | | | | | | CORE | | + + + + + + | REACTIVE | 0.59 | K/cu mm | [facility] | | | LYMPHS # | | | LABORATORY | | | | | | SERVICES, | | | | | | CORE | | + + + + + + + + | Specimen | + + | Blood - Blood | | (substance) | + + + + + | Narrative | Performed At | + + + | New pediatric reference ranges for Lymphocyte % in effect April 19, | [facility] | | 2018. Increased immature granulocytes(IG)define a left shift.IGs | LABORATORY | | include metamyelocytes, myelocytes and promyelocytes. Bands are | SERVICES, CORE | | included in the neutrophil count, not the IG count, except in neonates | | | <=60 days old where bands are reported in a manual diff. | | + + + + + + + + | Performing | Address | City/State/Zipcode | Phone Number | | Organization | | | | + + + + + | [facility] | [address] | [place] [address] | | | SERVICES, CORE | [address] | | | + + + + + CBC AND AUTO DIFF (01/02/2019 5:39 AM PST) + + + + + + | Component | Value | Ref Range | Performed | Pathologist | | | | | At | Signature | + + + + + + | WHITE CELL | 65.07 (H) | 3.50 - 10.80 | [facility] | | | COUNT | | K/cu mm | LABORATORY | | | | | | SERVICES, | | | | | | CORE | | + + + + + + | RED CELL | 4.54 | 4.00 - 5.20 | [facility] | | | COUNT | | M/cu mm | LABORATORY | | | | | | SERVICES, | | | | | | CORE | | + + + + + + | HEMOGLOBIN | 14.0 | 12.0 - 16.0 | [facility] | | | | | g/dL | LABORATORY | | | | | | SERVICES, | | | | | | CORE | | + + + + + + | HEMATOCRIT | 42.8 | 36.0 - 46.0 % | [facility] | | | | | | LABORATORY | | | | | | SERVICES, | | | | | | CORE | | + + + + + + | MCV | 94.3 | 80.0 - 100.0 fL | [facility] | | | | | | LABORATORY | | | | | | SERVICES, | | | | | | CORE | | + + + + + + | MCHC | 32.7 | 32.0 - 36.0 | [facility] | | | | | g/dL | LABORATORY | | | | | | SERVICES, | | | | | | CORE | | + + + + + + | RDW SD | 55.8 (H) | 35.1 - 46.3 fL | [facility] | | | | | | LABORATORY | | | | | | SERVICES, | | | | | | CORE | | + + + + + + | PLATELET | 604 (H)Comment: Macro | 150 - 400 K/cu | [facility] | | | COUNT | platelets present. | mm | LABORATORY | | | | | | SERVICES, | | | | | | CORE | | + + + + + + | MPV | 11.1 | 9.7 - 12.3 fL | [facility] | | | | | | LABORATORY | | | | | | SERVICES, | | | | | | CORE | | + + + + + + | NRBC% | 0.2 | 0.0 - 0.3 % | [facility] | | | | | | LABORATORY | | | | | | SERVICES, | | | | | | CORE | | + + + + + + | NRBC# | 0.13 (H) | 0.00 - 0.02 | [facility] | | | | | K/cu mm | LABORATORY | | | | | | SERVICES, | | | | | | CORE | | + + + + + + + + | Specimen | + + | Blood - Blood | | (substance) | + + + + + + + | Performing | Address | City/State/Zipcode | Phone Number | | Organization | | | | + + + + + | [facility] | [address] | [place] [address] | | | SERVICES, CORE | [address] | | | + + + + + COAGULOPATHY PANEL (INR,APTT,FIBRINOGEN) (01/02/2019 5:39 AM PST) + +-------+ + + + | Component | Value | Ref Range | Performed | Pathologist | | | | | At | Signature | + +-------+ + + + | INR | 1.17 | 0.90 - 1.20 INR | [facility] | | | | | | LABORATORY | | | | | | SERVICES, | | | | | | CORE | | + +-------+ + + + | APTT | 31.1 | 26.0 - 36.0 | [facility] | | | | | seconds | LABORATORY | | | | | | SERVICES, | | | | | | CORE | | + +-------+ + + + | FIBRINOGEN | 301 | 150 - 450 mg/dL | [facility] | | | LEVEL | | | LABORATORY | | | | | | SERVICES, | | | | | | CORE | | + +-------+ + + + + + | Specimen | + + | Blood - Blood | | (substance) | + + + + + | Narrative | Performed At | + + + | INR Therapeutic ranges for full anticoagulation: INR for | [facility] | | Venous Thromboembolism (2.0 - 3.0) INR INR for | LABORATORY | | most patients with mech. valves (2.5 - 3.5) INR APTT values for | SERVICES, CORE | | monitoring heparin therapy may be affected by specimens processed >1 | | | hour after collection. APTT Therapeutic Range: | | | (75 - 120) sec Heparin levels of 0.35 - 0.7 U/mL | | + + + + + + + + | Performing | Address | City/State/Zipcode | Phone Number | | Organization | | | | + + + + + | [facility] | [address] | [place] [address] | | | SERVICES, CORE | [address] | | | + + + + + LDH TOTAL, PLASMA (01/02/2019 5:39 AM PST) + +---------+ + + + | Component | Value | Ref Range | Performed | Pathologist | | | | | At | Signature | + +---------+ + + + | LD TOTAL, | 647 (H) | <=250 U/L | [facility] | | | PLASMA | | | LABORATORY | | | | | | SERVICES, | | | | | | CORE | | + +---------+ + + + | LD CMNT | Sl Hemo | | [facility] | | | | | | LABORATORY | | | | | | SERVICES, | | | | | | CORE | | + +---------+ + + + + + | Specimen | + + | Blood - Blood | | (substance) | + + + + + | Narrative | Performed At | + + + | Sample hemolyzed. Results for K, Total Bili, Direct Bili, AST, | [facility] | | LDH, or HDL may be inaccurate. Refer to comment under test result. | LABORATORY | | | SERVICES, CORE | + + + + + + + + | Performing | Address | City/State/Zipcode | Phone Number | | Organization | | | | + + + + + | [facility] | [address] | [place] [address] | | | SERVICES, CORE | [address] | | | + + + + + BILIRUBIN DIRECT (01/02/2019 5:39 AM PST) + +-------+ + + + | Component | Value | Ref Range | Performed | Pathologist | | | | | At | Signature | + +-------+ + + + | BILIRUBIN | <0.1 | 0.0 - 0.3 mg/dL | [facility] | | | DIRECT | | | LABORATORY | | | | | | SERVICES, | | | | | | CORE | | + +-------+ + + + + + | Specimen | + + | Blood - Blood | | (substance) | + + + + + + + | Performing | Address | City/State/Zipcode | Phone Number | | Organization | | | | + + + + + | [facility] | [address] | [place] [address] | | | SERVICES, CORE | [address] | | | + + + + + URIC ACID, PLASMA (01/02/2019 5:39 AM PST) + +---------+ + + + | Component | Value | Ref Range | Performed | Pathologist | | | | | At | Signature | + +---------+ + + + | URIC ACID, | 6.4 (H) | 2.5 - 6.2 mg/dL | [facility] | | | PLASMA | | | LABORATORY | | | (LAB) | | | SERVICES, | | | | | | CORE | | + +---------+ + + + + + | Specimen | + + | Blood - Blood | | (substance) | + + + + + + + | Performing | Address | City/State/Zipcode | Phone Number | | Organization | | | | + + + + + | [facility] | [address] | [place] [address] | | | MACHO CHAUHAN | [address] | | | + + + + + PHOSPHORUS, PLASMA (01/02/2019 5:39 AM PST) + +-------+ + + + | Component | Value | Ref Range | Performed | Pathologist | | | | | At | Signature | + +-------+ + + + | PHOSPHORUS, | 4.0 | 2.4 - 4.7 mg/dL | [facility] | | | PLASMA | | | LABORATORY | | | (LAB) | | | SERVICES, | | | | | | CORE | | + +-------+ + + + + + | Specimen | + + | Blood - Blood | | (substance) | + + + + + + + | Performing | Address | City/State/Zipcode | Phone Number | | Organization | | | | + + + + + | [facility] | [address] | [place] [address] | | | SERVICES, CORE | [address] | | | + + + + + MAGNESIUM, PLASMA (01/02/2019 5:39 AM PST) + +-------+ + + + | Component | Value | Ref Range | Performed | Pathologist | | | | | At | Signature | + +-------+ + + + | MAGNESIUM,P | 2.1 | 1.6 - 2.6 mg/dL | [facility] | | | LASMA | | | LABORATORY | | | | | | GISSEL, | | | | | | CORE | | + +-------+ + + + + + | Specimen | + + | Blood - Blood | | (substance) | + + + + + + + | Performing | Address | City/State/Zipcode | Phone Number | | Organization | | | | + + + + + | [facility] | [address] | [place] [address] | | | SERVICES, CORE | [address] | | | + + + + + COMPLETE METABOLIC SET (NA,K,CL,CO2,BUN,CREAT,GLUC,CA,AST,ALT,BILI TOTAL,ALK PHOS,ALB,PROT TOTAL) (01/02/2019 5:39 AM PST) + +---------+ + + + | Component | Value | Ref Range | Performed | Pathologist | | | | | At | Signature | + +---------+ + + + | GLUCOSE, | 79 | 70 - 99 mg/dL | [facility] | | | PLASMA | | | LABORATORY | | | (LAB) | | | SERVICES, | | | | | | CORE | | + +---------+ + + + | BUN, PLASMA | 12 | 6 - 20 mg/dL | [facility] | | | (LAB) | | | LABORATORY | | | | | | SERVICES, | | | | | | CORE | | + +---------+ + + + | CREATININE | 0.88 | 0.60 - 1.10 | [facility] | | | PLASMA | | mg/dL | LABORATORY | | | (LAB) | | | SERVICES, | | | | | | CORE | | + +---------+ + + + | EGFR | >60 | >60 mL/min | [facility] | | | - | | | LABORATORY | | | [place] | | | SERVICES, | | | | | | CORE | | + +---------+ + + + | EGFR NON | >60 | >60 mL/min | [facility] | | | -REI | | | LABORATORY | | | RICAN | | | SERVICES, | | | | | | CORE | | + +---------+ + + + | SODIUM, | 142 | 136 - 145 | [facility] | | | PLASMA | | mmol/L | LABORATORY | | | (LAB) | | | SERVICES, | | | | | | CORE | | + +---------+ + + + | POTASSIUM, | 4.3 | 3.4 - 5.0 | [facility] | | | PLASMA | | mmol/L | LABORATORY | | | (LAB) | | | SERVICES, | | | | | | CORE | | + +---------+ + + + | CHLORIDE, | 114 (H) | 97 - 108 mmol/L | [facility] | | | PLASMA | | | LABORATORY | | | (LAB) | | | SERVICES, | | | | | | CORE | | + +---------+ + + + | TOTAL CO2, | 23 | 21 - 32 mmol/L | [facility] | | | PLASMA | | | LABORATORY | | | (LAB) | | | SERVICES, | | | | | | CORE | | + +---------+ + + + | CALCIUM, | 8.5 (L) | 8.6 - 10.2 | [facility] | | | PLASMA | | mg/dL | LABORATORY | | | (LAB) | | | SERVICES, | | | | | | CORE | | + +---------+ + + + | CALCIUM(ALB | 8.7 | 8.6 - 10.2 | [facility] | | | CORRECTED) | | mg/dL | LABORATORY | | | | | | SERVICES, | | | | | | CORE | | + +---------+ + + + | BILIRUBIN | 0.4 | 0.3 - 1.2 mg/dL | [facility] | | | TOTAL | | | LABORATORY | | | | | | SERVICES, | | | | | | CORE | | + +---------+ + + + | TOTAL | 6.5 | 6.4 - 8.2 g/dL | [facility] | | | PROTEIN, | | | LABORATORY | | | PLASMA | | | SERVICES, | | | (LAB) | | | CORE | | + +---------+ + + + | ALBUMIN, | 3.7 | 3.5 - 4.7 g/dL | [facility] | | | PLASMA | | | LABORATORY | | | (LAB) | | | SERVICES, | | | | | | CORE | | + +---------+ + + + | ALK PHOS | 56 | 42 - 98 U/L | [facility] | | | | | | LABORATORY | | | | | | SERVICES, | | | | | | CORE | | + +---------+ + + + | AST(SGOT) | 31 | <=41 U/L | [facility] | | | | | | LABORATORY | | | | | | SERVICES, | | | | | | CORE | | + +---------+ + + + | ALT (SGPT) | 35 | <=60 U/L | [facility] | | | | | | LABORATORY | | | | | | SERVICES, | | | | | | CORE | | + +---------+ + + + | ANION GAP | 5 | 4 - 11 mmol/L | [facility] | | | | | | LABORATORY | | | | | | SERVICES, | | | | | | CORE | | + +---------+ + + + | ANION | 5 | 4 - 11 mmol/L | [facility] | | | GAP(ALB | | | LABORATORY | | | CORRECTED) | | | SERVICES, | | | | | | CORE | | + +---------+ + + + | POTASSIUM | Sl Hemo | | [facility] | | | CMNT | | | LABORATORY | | | | | | SERVICES, | | | | | | CORE | | + +---------+ + + + | AST CMNT | Sl Hemo | | [facility] | | | | | | LABORATORY | | | | | | SERVICES, | | | | | | CORE | | + +---------+ + + + + + | Specimen | + + | Blood - Blood | | (substance) | + + + + + | Narrative | Performed At | + + + | Sample hemolyzed. Results for K, Total Bili, Direct Bili, AST, | [facility] | | LDH, or HDL may be inaccurate. Refer to comment under test result. | LABORATORY | | GFR is estimated using the MDRD equation recommended by the National | SERVICES, CORE | | Kidney Disease Education Program. Estimated GFR Interpretive | | | Information: <60 mL/min/1.73 sq m Chronic Kidney | | | Disease <15 mL/min/1.73 sq m Kidney Failure | | | Estimated GFR greater than 60 mL/min/1.73 sq m is of limited clinical | | | value. The MDRD equation is not valid in the following situations: | | | - Patients under 18 years of age - Severe malnutrition or obesity | | | - Vegetarian diet - Rapidly changing kidney function - Amputees, | | | paraplegics, or other muscle-wasting diseses | | + + + + + + + + | Performing | Address | City/State/Zipcode | Phone Number | | Organization | | | | + + + + + | [facility] | [address] | [place] [address] | | | SERVICES, CORE | [address] | | | + + + + + documented in this encounter Visit Diagnoses + + | Diagnosis | + + | Leukocytosis, unspecified type - Primary | + + | Thrombocytosis (HCC) Essential thrombocythemia | + + | Alcohol use Other problems related to lifestyle | + + | Tobacco abuse Tobacco use disorder | + + | Chronic myeloid leukemia (CML), BCR/ABL-positive (HCC) | + + | Nausea Nausea alone | + + documented in this encounter Administered Medications + +--------+ +--------+------+------+ | Medication Order | MAR | Action | Dose | Rate | Site | | | Action | Date | | | | + +--------+ +--------+------+------+ | acetaminophen (TYLENOL) tablet | Given | 01/05/20 | 650 mg | | | | 650 mg 650 mg, oral, EVERY 4 | | 19 11:24 | | | | | HOURS NEEDED, Starting Wed | | AM PST | | | | | 01/02/19 at 0618, Until 01/04/19 | | | | | | | at 2008, mild pain, first line, | | | | | | | headache, multimodal pain control | | | | | | + +--------+ +--------+------+------+ +-------+ +--------+---+---+ | Given | 01/03/20 | 650 mg | | | | | 19 3:03 | | | | | | PM PST | | | | +-------+ +--------+---+---+ | Given | 01/03/20 | 650 mg | | | | | 19 4:09 | | | | | | AM PST | | | | +-------+ +--------+---+---+ +---+---+ | | | +---+---+ + +-------+ +--------+---+---+ | allopurinol (ZYLOPRIM) tablet | Given | 01/05/20 | 300 mg | | | | 300 mg 300 mg, oral, DAILY, | | 19 8:49 | | | | | First dose on Mon01/02/19 at | | AM PST | | | | | 0615, Until Discontinued | | | | | | + +-------+ +--------+---+---+ +-------+ +--------+---+---+ | Given | 01/03/20 | 300 mg | | | | | 19 8:41 | | | | | | AM PST | | | | +-------+ +--------+---+---+ | Given | 01/02/20 | 300 mg | | | | | 19 6:42 | | | | | | AM PST | | | | +-------+ +--------+---+---+ +---+---+ | | | +---+---+ + +-------+ +--------+---+---+ | allopurinol (ZYLOPRIM) tablet | Given | 01/02/20 | 300 mg | | | | 300 mg 300 mg, oral, ONCE, 1 | | 19 6:42 | | | | | dose, Mon01/02/19 at 0645 | | AM PST | | | | + +-------+ +--------+---+---+ +---+---+ | | | +---+---+ + +-------+ +--------+---+---+ | buPROPion (WELLBUTRIN) tablet | Given | 01/05/20 | 200 mg | | | | 200 mg 200 mg, oral, TWICE | | 19 8:49 | | | | | DAILY, First dose on Mon01/02/19 | | AM PST | | | | | at 0900, Until Discontinued | | | | | | + +-------+ +--------+---+---+ +-------+ +--------+---+---+ | Given | 01/03/20 | 200 mg | | | | | 19 8:52 | | | | | | PM PST | | | | +-------+ +--------+---+---+ | Given | 01/03/20 | 200 mg | | | | | 19 8:41 | | | | | | AM PST | | | | +-------+ +--------+---+---+ +---+---+ | | | +---+---+ + +-------+ +--------+---+---+ | HYDROmorphone (DILAUDID) | Given | 01/05/20 | 0.5 mg | | | | injection 0.5 mg 0.5 mg, | | 19 8:49 | | | | | intravenous, EVERY 2 HOURS | | AM PST | | | | | NEEDED, Starting Sandra 01/03/19 at | | | | | | | 1613, Until Mon01/04/19 at 2008, | | | | | | | severe pain | | | | | | + +-------+ +--------+---+---+ +-------+ +--------+---+---+ | Given | 01/05/20 | 0.5 mg | | | | | 19 4:38 | | | | | | AM PST | | | | +-------+ +--------+---+---+ | Given | 01/05/20 | 0.5 mg | | | | | 19 12:21 | | | | | | AM PST | | | | +-------+ +--------+---+---+ +---+---+ | | | +---+---+ + +---------+ +--------+---+---+ | iohexol (OMNIPAQUE) 350 mg | IV Push | 01/03/20 | 100 mL | | | | iodine/mL injection 100 mL 100 | | 19 2:45 | | | | | mL, intravenous, PROCEDURE ONCE, | | PM PST | | | | | 1 dose, [facility] 01/03/19 at 1500 | | | | | | + +---------+ +--------+---+---+ +---+---+ | | | +---+---+ + +-------+ +------+---+---+ | LORazepam (ATIVAN) injection 1 | Given | 01/03/20 | 1 mg | | | | mg 1 mg, intravenous, ONCE, 1 | | 19 11:16 | | | | | dose, [facility] 01/03/19 at 1115 | | AM PST | | | | + +-------+ +------+---+---+ +---+---+ | | | +---+---+ + +-------+ +------+---+---+ | LORazepam (ATIVAN) injection 1 | Given | 01/03/20 | 1 mg | | | | mg 1 mg, intravenous, ONCE | | 19 11:52 | | | | | NEEDED, 1 dose, Starting Sandra | | AM PST | | | | | 01/03/19 at 1121, Until Sandra | | | | | | | 01/03/19 at 1152, bone marrow | | | | | | | biopsy | | | | | | + +-------+ +------+---+---+ +---+---+ | | | +---+---+ + +-------+ +------+---+---+ | LORazepam (ATIVAN) tablet 1 mg | Given | 01/02/20 | 1 mg | | | | 1 mg, oral, EVERY 6 HOURS | | 19 1:22 | | | | | NEEDED, Starting Mon01/02/19 at | | PM PST | | | | | 0824, Until Mon01/02/19 at 1801, | | | | | | | anxiety, agitation, | | | | | | | nausea/vomiting, second line | | | | | | + +-------+ +------+---+---+ +-------+ +------+---+---+ | Given | 01/02/20 | 1 mg | | | | | 19 8:38 | | | | | | AM PST | | | | +-------+ +------+---+---+ +---+---+ | | | +---+---+ + +-------+ +------+---+---+ | LORazepam (ATIVAN) tablet 1 mg | Given | 01/05/20 | 1 mg | | | | 1 mg, oral, EVERY 6 HOURS | | 19 12:32 | | | | | NEEDED, Starting Mon01/02/19 at | | PM PST | | | | | 1801, Until Mon01/04/19 at 2008, | | | | | | | anxiety, agitation | | | | | | + +-------+ +------+---+---+ +-------+ +------+---+---+ | Given | 01/03/20 | 1 mg | | | | | 19 3:03 | | | | | | PM PST | | | | +-------+ +------+---+---+ | Given | 01/03/20 | 1 mg | | | | | 19 4:02 | | | | | | AM PST | | | | +-------+ +------+---+---+ + +---+ | | | + +---+ | magnesium sulfate in water IV | | | (RTU) 4 g 4 g, intravenous, | | | NEEDED, Starting Mon01/02/19 at | | | 0516, Until Mon01/04/19 at 2008, | | | Mg level 1.3-1.6 mg/dL | | + +---+ | | | + +---+ | magnesium sulfate IV 8 g 8 g, | | | intravenous, NEEDED, Starting | | | 01/02/19 at 0516, Until Fri | | | 01/04/19 at 2008, Mg level less | | | than or equal to 1.2 mg/dL | | + +---+ | | | + +---+ + + + +---------+---+ + | nicotine (NICOTROL) 21 mg/24 hr | Applied | 01/03/20 | 1 patch | | Right | | patch 1 patch 1 patch, | Patch | 19 8:41 | | | Shoulder | | transdermal, DAILY, First dose on | | AM PST | | | | | Mon01/02/19 at 0900, Until | | | | | | | Discontinued | | | | | | + + + +---------+---+ + + + +---------+---+--------+ | Applied Patch | 01/02/20 | 1 patch | | Right | | | 19 8:10 | | | Arm | | | AM PST | | | | + + +---------+---+--------+ + +---+ | | | + +---+ | nicotine polacrilex (NICORETTE) | | | gum 4 mg 4 mg, oral, NEEDED, | | | Starting Mon01/02/19 at 0620, | | | Until Mon01/04/19 at 2008, | | | Withdrawal symptoms | | + +---+ | | | + +---+ | ondansetron (ZOFRAN) injection | | | 4 mg 4 mg, intravenous, EVERY 12 | | | HOURS NEEDED, Starting Wed | | | 01/02/19 at 1759, Until Mon01/04/19 | | | at 2008, n/v, if unable to take | | | oral form of medication | | + +---+ | | | + +---+ + +-------+ +------+---+---+ | ondansetron (ZOFRAN) tablet 8 | Given | 01/02/20 | 8 mg | | | | mg 8 mg, oral, EVERY 12 HOURS | | 19 8:09 | | | | | NEEDED, Starting Mon01/02/19 at | | AM PST | | | | | 0636, Until Mon01/02/19 at 1801, | | | | | | | nausea/vomiting, first line | | | | | | + +-------+ +------+---+---+ +---+---+ | | | +---+---+ + +-------+ +------+---+---+ | ondansetron (ZOFRAN) tablet 8 | Given | 01/05/20 | 8 mg | | | | mg 8 mg, oral, EVERY 12 HOURS | | 19 7:22 | | | | | NEEDED, Starting Mon01/02/19 at | | AM PST | | | | | 1759, Until Mon01/04/19 at 2008, | | | | | | | nausea/vomiting, first line | | | | | | + +-------+ +------+---+---+ +-------+ +------+---+---+ | Given | 01/03/20 | 8 mg | | | | | 19 6:20 | | | | | | PM PST | | | | +-------+ +------+---+---+ | Given | 01/03/20 | 8 mg | | | | | 19 6:40 | | | | | | AM PST | | | | +-------+ +------+---+---+ +---+---+ | | | +---+---+ + +-------+ +-------+---+---+ | oxyCODONE (immediate release) | Given | 01/05/20 | 10 mg | | | | (ROXICODONE) tablet 10 mg 10 mg, | | 19 11:16 | | | | | oral, EVERY 4 HOURS NEEDED, | | AM PST | | | | | Starting Sandra 01/03/19 at 1306, | | | | | | | Until Mon01/04/19 at 2008, | | | | | | | moderate pain | | | | | | + +-------+ +-------+---+---+ +-------+ +-------+---+---+ | Given | 01/05/20 | 10 mg | | | | | 19 7:22 | | | | | | AM PST | | | | +-------+ +-------+---+---+ | Given | 01/05/20 | 10 mg | | | | | 19 3:24 | | | | | | AM PST | | | | +-------+ +-------+---+---+ + +---+ | | | + +---+ | potassium chloride IV (central | | | line) 40 mEq 40 mEq, | | | intravenous, NEEDED, Starting | | | 01/02/19 at 0516, Until Fri | | | 01/04/19 at 2008, potassium level | | | of 3-3.4 mmol/L. Administer if | | | patient intolerant of oral | | | medications. | | + +---+ | | | + +---+ | potassium chloride IV (central | | | line) 60 mEq 60 mEq, | | | intravenous, NEEDED, Starting | | | 01/02/19 at 0516, Until Fri | | | 01/04/19 at 2008, potassium level | | | less than or equal to 2.9 mmol/L | | + +---+ | | | + +---+ | potassium chloride SR (K-DUR) | | | tablet 40 mEq 40 mEq, oral, | | | NEEDED, Starting 01/02/19 at | | | 0516, Until Mon01/04/19 at 2008, | | | potassium level 3-3.4 mmol/L | | + +---+ | | | + +---+ | potassium phosphate IV (CENTRAL | | | LINE) 30 mmol 30 mmol, | | | intravenous, NEEDED, Starting | | | 01/02/19 at 0516, Until Fri | | | 01/04/19 at 2008, Potassium less | | | than or equal to 3.4 mmol/L AND | | | Phosphate less than or equal to 2 | | | mg/dL | | + +---+ | | | + +---+ | potassium phosphate IV (CENTRAL | | | LINE) 40 mmol 40 mmol, | | | intravenous, NEEDED, Starting | | | 01/02/19 at 0516, Until Fri | | | 01/04/19 at 2008, Potassium less | | | than or equal to 2.9 mmol/L AND | | | Phosphate less than or equal to | | | 1.5 mg/dL. | | + +---+ | | | + +---+ + +-------+ +------+---+---+ | prochlorperazine (COMPAZINE) | Given | 01/02/20 | 5 mg | | | | injection 5 mg 5 mg, | | 19 6:31 | | | | | intravenous, EVERY 6 HOURS | | PM PST | | | | | NEEDED, Starting Mon01/02/19 at | | | | | | | 1800, Until Mon01/04/19 at 2008, | | | | | | | nausea/vomiting, third line | | | | | | + +-------+ +------+---+---+ + +---+ | | | + +---+ | prochlorperazine (COMPAZINE) | | | tablet 5-10 mg 5-10 mg, oral, | | | EVERY 6 HOURS NEEDED, Starting | | | 01/02/19 at 1800, Until Fri | | | 01/04/19 at 2009, nausea/vomiting, | | | second line | | + +---+ | | | + +---+ + +-------+ +---------+---+---+ | senna (SENOKOT) tablet 1-2 | Given | 01/05/20 | 2 | | | | tablet 1-2 tablet, oral, DAILY, | | 19 9:47 | tablets | | | | First dose on Mon01/04/19 at 0900, | | AM PST | | | | | Until Discontinued | | | | | | + +-------+ +---------+---+---+ +---+---+ | | | +---+---+ + +---------+ +-------+-------+---+ | sodium chloride 0.9 % (NS) IV | New Bag | 01/03/20 | 100 | 100 | | | infusion 100 mL/hr, intravenous, | | 19 11:16 | mL/hr | mL/hr | | | CONTINUOUS, Starting 01/02/19 | | AM PST | | | | | at 0645, Until Sandra 01/03/19 at | | | | | | | 1714 | | | | | | + +---------+ +-------+-------+---+ + + +-------+-------+---+ | Rate/Dose Verify | 01/03/20 | 100 | 100 | | | | 19 9:42 | mL/hr | mL/hr | | | | AM PST | | | | + + +-------+-------+---+ | Rate/Dose Verify | 01/03/20 | 100 | 100 | | | | 19 5:25 | mL/hr | mL/hr | | | | AM PST | | | | + + +-------+-------+---+ + +---+ | | | + +---+ | sodium glycerophosphate | | | (GLYCOPHOS) IV 30 mmol 30 mmol, | | | intravenous, NEEDED, Starting | | | 01/02/19 at 0516, Until Fri | | | 01/04/19 at 2008, Administer for | | | sodium level less than 148 mmol/L | | | AND phosphate level 1.6-2 mg/dL. | | + +---+ | | | + +---+ | sodium glycerophosphate | | | (GLYCOPHOS) IV 40 mmol 40 mmol, | | | intravenous, NEEDED, Starting | | | 01/02/19 at 0516, Until Fri | | | 01/04/19 at 2008, Administer for | | | sodium level less than 148 mmol/L | | | AND phosphate level less than or | | | equal to 1.5 mg/dL. | | + +---+ | | | + +---+ documented in this encounter
--- OUTSIDE RECORDS SUMMARY | ~2020-03-13 | XMS | Encounter Summary ---
Demographics + + + | Address | [address] | | | [place] [address] | + + + | Home Phone | | + + + | Preferred Language | Unknown | + + + | Marital Status | | + + + | Advent Affiliation | Unknown | + + + | Race | Unknown | + + + | Ethnic Group | Unknown | + + + Author + + + | Author | [facility] | | | and [place] | + + + | Organization | [facility] | | | and [...] Team Providers + +------+ + | Care Graphic Art Sales Representative Name | Role | Phone | + +------+ + | Burton Masters MD | PCP | | + +------+ + Reason for Visit +--------+ + | Reason | Comments | +--------+ + | Triage | | +--------+ + Encounter Details +--------+ + + + + | Date | Type | Department | Care Team | Description | +--------+ + + + + | 07/15/ | Telephone | [facility] | Evangelina Rivera, | Triage | | 2019 | | [address] | PROPERTY CLAIMS ADJUSTER [employer] [address] | | | | | [address] | [address] [place], [place] | | | | | [address] [facility] | [address] | | | | | [place] [address] | | | | | | [phone] | | | +--------+ + + + [...] [address] | | | | | | [address] [place] | | | | | | [address] | | | | | | | | +--------+ + + + + | 03/18/ | Office | Physical Medicine | Jovana Dawson | | | 2019 | Visit | and Rehabilitation | MELANY Man W | | | | | | [address] | | | | | | [address] [place] | | | | | | [address] | | | | | | | | +--------+ + + + + | 04/01/ | Appointment | Oncology | Deny Mcmanus, | | 2019 | | | MD Alan CRUZ | | | | | | [address] | | | | | | [place] [address] | | | | | | [phone] | | | | | | | | +--------+ + + + + | 04/08/ | Procedure | Physical Medicine | Leonard De Leon | | 2019 | visit | and Rehabilitation | MD Kiki Win | | | | | | [place] | | | | | | [address] | | | | | | | | +--------+ + + + + | 04/30/ | Office | Cardiology | Shad Saavedra, | | | 2019 | Visit | | MD Alan Cruz | | | | | | [place], | | | | | | [place] [address] | | | | | | [phone] | | | | | | | | +--------+ + + + + documented as of this encounter Visit Diagnoses Not on filedocumented in this encounter"
--- OUTSIDE RECORDS SUMMARY | ~2020-03-13 | XMS | Encounter Summary ---
Demographics + + + | Address | [address] | | | [place] [address] | + + + | Home Phone | | + + + | Preferred Language | Unknown | + + + | Marital Status | Single | + + + | Scientologist Affiliation | NON | + + + | Race | White | + + + | Ethnic Group | Not or | + + + Author + + + | Author | [facility] | + + + | Organization | [facility] | + + + | Address | [...] Team Providers + +------+ + | Care Criminal Justice Faculty Name | Role | Phone | + +------+ + | Burton Masters MD | PCP | | + +------+ + Reason for Visit + + + | Reason | Comments | + + + | Care Coordination | Disability Ppwk - Cigna | + + + Encounter Details +--------+ + + + + | Date | Type | Department | Care Team | Description | +--------+ + + + + | 10/01/ | Telephone | [facility] | Jalen Moore, | Care Coordination | | 2019 | | [facility] at [facility] | MD [address] | (Disability Ppwk - | | | | [facility] | [place], [place] | [place]) | | | | for Health and | [address] | | | | | Healing [address] | [phone] | | | | | [address] [place], [place] | | | | | | [address] | | | | | | [phone] | | | +--------+ + + + [...] | | | + +------+---+---+ + + +---------+ + | Alcohol Use [...] + + documented as of this encounter Functional Status + + + [...] as of this encounter Plan of Treatment +--------+---------+ + + + | Date | Type | Specialty | Care Team | Description | +--------+---------+ + + + | 06/15/ | Lab | Phlebotomy | | | | 2020 | | | | | +--------+---------+ + + + | 06/15/ | Office | Hematology | Jalen Moore, | | | 2019 | Visit | Malignancy | [address] | | | | | | [place], [place] | | | | | | [address] | | | | | | [phone] | | | | | | | | +--------+---------+ + + + documented as of this encounter Visit Diagnoses Not on filedocumented in this encounter"
--- OUTSIDE RECORDS SUMMARY | ~2020-03-13 | XMS | Encounter Summary ---
Demographics + + + | Address | [address] | | | [place] [address] | + + + | Home Phone | | + + + | Preferred Language | Unknown | + + + | Marital Status | | + + + | Christianity Affiliation | Unknown | + + + | Race | Unknown | + + + | Ethnic Group | Unknown | + + + Author + + + | Author | [facility] | | | and [place] | + + + | Organization | [facility] | | [...] Team Providers + +------+ + | Care Composition Weatherboard Installer Name | Role | Phone | + +------+ + | Burton Masters MD | PCP | | + +------+ + Reason for Visit Auth/Cert +--------+--------+ + + + + | Status | Reason | Specialty | Diagnoses / | Referred By | Referred To | | | | | Procedures | Contact | Contact | +--------+--------+ + + + + | | | | Diagnoses | | | | | | | Encounter | | | | | | | for maternal | | | | | | | care for | | | | | | | low | | | | | | | transverse | | | | | | | scar from | | | | | | | previous | | | | | | | | | | | | | | delivery | | | | | | | Encounter | | | | | | | for | | | | | | | sterilizatio | | | | | | | n Encounter | | | | | | | for | | | | | | | maternal | | | | | | | care for low | | | | | | | transverse | | | | | | | scar from | | | | | | | previous | | | | | | | | | | | | | | delivery | | | | | | | [O34.211], | | | | | | | Encounter | | | | | | | for | | | | | | | sterilizatio | | | | | | | n [Z30.2] | | | | | | | Procedures | | | | | | | IA | | | | | | | DELIVERY | | | | | | | ONLY Repeat | | | | | | | | | | +--------+--------+ + + + + Encounter Details +--------+---------+ + + + | Date | Type | Department | Care Team | Description | +--------+---------+ + + + | 01/16/ | Surgery | [facility] | Dorota Beal | Repeat , | | 2018 | | [facility] | [place], DO [address] | Bilateral Tubal | | | | [address] | [address] [place] | Ligation | | | | [place], [place] | [place] [address] | | | | | [address] | [phone] | | | | | [phone] | | | +--------+---------+ + + + Social History + + + +--------+ + | Tobacco Use | Types | Packs/Day | Years | Date | | | | | Used | | + + + +--------+ + | Current Every Day | Cigarettes | 0.25 | 16 | Started: 03/03/2001 | | [...] + + + | Blood Pressure | 127/75 | 01/21/2018 8:45 AM | | | | | PDT | | + + + + + | Pulse | 91 | 01/21/2018 8:45 AM | | | | | PDT | | + + + + + | Temperature | 36.7 C (98.1 F) | 01/21/2018 8:45 AM | | | | | PDT | | + + + + + | Respiratory Rate | 18 | 01/21/2018 8:45 AM | | | | | PDT | | + + + + + | Oxygen Saturation | 97% | 01/21/2018 8:45 AM | | | | | PDT | | + + + + + | Inhaled Oxygen | - | - | | | Concentration | | | | + + + + + | Weight | 111.1 kg (245 lb) | 01/16/2018 3:06 PM | | | | | PDT | | + + + + + | Height | 172.7 cm (5' 8") | 01/16/2018 3:06 PM | | | | | PDT | | + + + + + | Body Mass Index | 37.25 | 01/16/2018 3:06 PM | | | | | PDT | | + + + + + documented in this encounter Discharge Summaries Dorota Beal DO - 01/19/2018 8:39 AM PDTFormatting of this note might be differe nt from the original. Physician Discharge Summary Patient ID: Ashley Webb [id number] 33 y.o. 1985 Admit date: 01/16/2018 Discharge date and time: 01/19/18 Admitting Physician: Dorota Beal DO Discharge Physician: Dorota Beal DO Admission Diagnoses: Encounter for maternal care for low transverse scar from previous cesa rean delivery [O34.211] Encounter for sterilization [Z30.2] Twin gestation Elevated umbilical artery dopplers of Twin B Twin discordance Discharge Diagnoses: same with cellulitis Admission Condition: good Discharged Condition: good Indication for Admission: Merle is a 33 y/o with twin gestation who presented at 35 w4d EGA for RLTCS. Merle's was complicated by Di/Di twin gestation. At 34 week U S twin discordance of 22% was noted with Baby B lagging behind. She received full course of steroid therapy. Antepartum testing was initiated and she was followed with weekly BPP wit h umbilical artery dopplers and twice weekly NST. On 01/16/18 at scheduled BPP she was noted to have elevated dopplers with both Baby A and Baby B but Baby B's were significantly eleva keily and twice that of Baby A. Decision was made to proceed with delivery. Hospital Course: Merle presented on 01/16/18 for RLTCS with BTL. Her surgery was uncomplica keily she delivered viable with gestation with Baby A (female ) 4#15oz and Baby B (male) 4#1oz . She did have some difficulty with pain control following surgery and was taking oxycodone 15mg q 3 hours for adequate pain management. Merle had previous history with last section of significant wound infection and therefore was continued on Kefzol for 24 hours a fter delivery. She continued on Keflex TID. POD#3 she was noted to have erythema on the hernandes perior aspect of her incision and was started on Bactrim. Her PP course was uncomplicated. She did have a history of Bipolar disorder and therefore prior to discharge was restarted o n Wellbutrin. Discharge Exam: Please see note from today's date Disposition: home Patient Instructions: Discharge Medications New Medications Details buPROPion 100 mg tablet Take 1 tablet by mouth 2 times daily. aka: WELLBUTRIN cephalexin 500 mg capsule Take 1 capsule by mouth 3 times daily. Indications: Preventative Medication Therapy Used A round Surgery aka: KEFLEX docusate sodium 100 MG capsule Take 200 mg by mouth nightly. aka: COLACE ibuprofen 600 MG tablet Take 1 tablet by mouth every 6 hours as needed for Pain. aka: ADVIL,MOTRIN oxyCODONE 5 mg tablet Take 1-4 tablets by mouth every 3 hours as needed for Pain. aka: ROXICODONE sulfamethoxazole-trimethoprim 800-160 mg per tablet Take 1 tablet by mouth 2 times daily. Indications: Infection Under the Skin aka: BACTRIM DS Unchanged Medications Details 27-0.8 mg multivitamin tablet Take 1 tablet by mouth Daily. Discontinued Medications ondansetron 8 mg disintegrating tablet aka: BRISA ODAudelia Activity: no sex for 6 weeks, no driving while on analgesics and no heavy lifting for 6 wee ks Diet: regular diet Wound Care: keep wound clean and dry Follow-up with Dr. Beal in 2 weeks. Signed: Dorota Beal DO 01/19/2018 8:39 Addendum to initial DC. Discharge orders were discontinued as patient developed worsening cellulitis. She received 48 hours of IV Unasyn. Significant improvement in symptoms. DC'd home on POD#6. Willresume oral Keflex and Bactri m. documented in this encounter Discharge Instructions Instructions Latia Sampson RN - 01/19/2018Formatting of this note might be different fr om the original. Discharge Instructions for Section () You had a section, or . During the , your baby was delivered thr ough a surgical incision in your stomach and uterus. Full recovery after a can marium e time. It s important to take care of yourself for your own sake and because your new baby needs you. Here are some guidelines to follow at home. Incision care Here's how to take care of your incision: Shower as needed. Pat your incision dry. Watch your incision for signs of infection, like increasing redness or drainage. Hold a pillow against the incision when you laugh or cough and when you get up from a ly ing or sitting position. Remember, it can take as long [id number] for a incision to heal. Activity Here are some suggestions: Don t try to take care of anyone other than your baby and yourself. Remember, the more active you are, the more likely you are to have an increase in your b leeding. Get lots of rest. Take naps in the afternoon. Increase your activities gradually. Plan your activities so that you don t have to go up or down stairs more than necessar y. Do postsurgical deep breathing and coughing exercises. Ask yourhealthcare provider for instructions. Don t lift anything heavier than your baby until yourhealthcare provider tells you i t s OK. Don t drive until yourhealthcare provider says it s OK. Don t have sexual intercourse until after you ve had a follow-up appointment with yo urhealthcare provider andyou have decided on a control method. Follow-up Make a follow-up appointment as directed by our staff. When to call your healthcare provider Call your healthcare provider right away if you have any of the following: Fever of100.4F(38C) or higher Redness, pain, or drainage at your incision site Bleeding that requires a new sanitary pad every hour Severe pain in the abdomen Pain or urgency with urination Foul odor from vaginal discharge Trouble urinating or emptying your bladder No bowel movement within 1 week after the of your baby Swollen, red, painful area in the leg Appearance of rash or hives Sore, red, painful area on the breasts that may be accompanied by flu-like symptoms Feelings of anxiety, panic, and/or depression Date Last Reviewed: 06/21/[id number] [employer]. [address] [place] [address]. All righ ts reserved. This information is not intended as a substitute for professional medical care. Always follow your healthcare professional's instructions. documented in this encounter Medications at Time of Discharge + + + +---------+ + + | Medication | Sig | Dispensed | Refills | Start | End Date | | | | | | Date | | + + + +---------+ + + | buPROPion | Take 1 tablet by | 90 | 1 | 01/20/20 | | | (WELLBUTRIN) 100 mg | mouth 2 times daily. | tablet | | 18 | 8 | | tablet | | | | | | + + + +---------+ + + | cephalexin | Take 1 capsule by | 21 | 0 | 01/20/20 | | | (KEFLEX) 500 mg | mouth 3 times daily. | capsule | | 18 | 8 | | capsuleIndications: | Indications: | | | | | | Surgical Prophylaxis | Preventative | | | | | | | Medication Therapy | | | | | | | Used Around Surgery | | | | | + + + +---------+ + + | docusate sodium | Take 200 mg by mouth | 30 | 1 | 01/20/20 | | | (COLACE) 100 MG | nightly. | capsule | | 18 | 8 | | capsule | | | | | | + + + +---------+ + + | ibuprofen | Take 1 tablet by | 30 | 1 | 01/20/20 | | | (ADVIL,MOTRIN) 600 | mouth every 6 hours | tablet | | 18 | 8 | | MG tablet | as needed for Pain. | | | | | + + + +---------+ + + | oxyCODONE | Take 1-4 tablets by | 30 | 0 | 01/20/20 | | | (ROXICODONE) 5 mg | mouth every 3 hours | tablet | | 18 | 8 | | tablet | as needed for Pain. | | | | | + + + +---------+ + + | 27-0.8 mg | Take 1 tablet by | | 0 | | | | multivitamin tablet | mouth Daily. | | | | 8 | + + + +---------+ + + | | Take 1 tablet by | 14 | 0 | 01/20/20 | | | sulfamethoxazole-tri | mouth 2 times daily. | tablet | | 18 | 8 | | methoprim (BACTRIM | Indications: | | | | | | DS) 800-160 mg per | Infection Under the | | | | | | tabletIndications: | Skin | | | | | | Cellulitis | | | | | | + + + +---------+ + + documented as of this encounter Progress Notes Dorota Beal DO - 01/21/2018 8:53 AM PDTPt seen and examined. Pain controlled overnight. Lochia stable. Voiding without difficulty. +flatus. Tolerating po intake. Denies N/V. No other concerns. +flatus. Small BM. Denies F/C VSS. AFebrile Gen: NAD HRRR. LCTA Abd: Soft. Appropriately tender. No fundal tenderness. Incision C/D/I. Steris intact. Erythema has receded to below initial marking. Ecchymosis more significant extending hernandes perior to incision and down to mons. Ext: Tr edema b/l LE A/P: 1. POD#5, s/p RLTCS with BTL--stable 2. Pain management. Continue with binder. Oxycodone q 3 hr and motrin 3. Cellulitis. Continue Unasyn until DC'd home with babies. Will have take keflex and ba ctrim po as outpatient. 4. DC home o Dorota kauffman DO - 01/19/2018 5:14 PM PDTWith removal of robe RN noted increasing e rythema surrounding incision. This was marked with marking pen and roughly 2 hours later may d extended beyond previous demarcation. She admits to some increased pain and overall just not feeling well. VSS. AFebrile Abd: Soft. Increased tenderness extending to just below umbilicus. Marked with marking pen No fundal tenderness. Incision C/D/I. [place] intact. Ecchymosis noted superior asp ect of incision and now extending to mons pubis. Ext: Tr edema b/l LE Will cancel discharge and keep patient as inpatient. Unasyn 3g q 6 hours initiated. Repeat CBC. Will continue to monitor for fever and determine DC dependent upon improving symptomsElectr onically signed by Dorota Beal DO at 01/19/2018 5:17 PM Dorota Gibson DO - 01/19/2018 8:32 AM PDTPt seen and examined. Pain controlled overnight. Lochia s table. Voiding without difficulty. +flatus. Tolerating po intake. Denies N/V. No other concerns. +flatus VSS. AFebrile Gen: NAD HRRR. LCTA Abd: Soft. Appropriately tender. No fundal tenderness. Incision C/D/I. Robe intact . Ecchymosis noted superior aspect of incision. Mild erythema extending superiorly from i ncision. No increased warmth Ext: Tr edema b/l LE A/P: 1. POD#3, s/p RLTCS with BTL--stable 2. Pain management. Continue with binder. Oxycodone q 3 hr and motrin 3. h/o BiPolar and concern for PP depression. Would like to restart Wellbutrin. This neema l be ordered and sent to pharmacy 4. Concern for cellulitis. Already on Keflex. Will add Bactrim 5. Will DC to Boarder Status Walter Gibson DO - 01/18/2018 11:49 AM PDTPt seen and examined. Pain controlled overnight. . Inf ants in nursery and is currently pumping, but will be switching to only formula feeding. L ochia stable. Voiding without difficulty. No BM or flatus as of yet. Tolerating po intake . Denies N/V. No other concerns VSS. AFebrile Gen: NAD HRRR. LCTA Abd: Soft. Appropriately tender. No fundal tenderness. Incision C/D/I. Robe intact. Ecchymosis noted superior aspect of incision Ext: Tr edema b/l LE A/P: 1. POD#2, s/p RLTCS with BTL--stable 2. Pain management. Continue with binder. Oxycodone q 3 hr and Toradol 3. Progressive ambulation. Continue routine care. 4. Anticipate DC to boarder status tomorrow. Dorota Gibson DO - 01/17/2018 1:41 PM PDTPt seen an d examined. Some difficulty with pain control overnight as IV dilaudid did not help with pa in. Currently on 15mg of oxycodone and has noted some improvement in pain. Infants in nurs kathy and is currently pumping. Lochia stable. Voiding without difficulty. No BM or flatus as of yet. Tolerating po intake. Denies N/V. No other concerns VS T 37.2, P 87, R 16, BP 120/77 Gen: NAD HRRR. LCTA Abd: Soft. Appropriately tender. No fundal tenderness. Incision C/D/I. [place] intact. Minimal ecchymosis noted superior aspect of incision Ext: Tr edema b/l LE Labs: 10.1>11.4/33.2<157 UOP: 600cc/12hr A/P: 1. POD#1, s/p RLTCS with BTL--stable 2. Pain management. Continue with binder. Oxycodone q 3 hr and Toradol 3. Secondary to h/o cellulitis with previous C/S and high risk of recurrence continued Kefz ol for 24hr and then will switch to oral and have take TID for 7 days 4. Progressive ambulation. Continue routine care. documented in this encounter Plan of Treatment +--------+ + + + + | Date | Type | Specialty | Care Team | Description | +--------+ + + + + | 03/17/ | Virtual | Neurosurgery | Zuhair Flores | | | 2019 | Office | | MD Joselito [address] | | | | Visit | | [facility] [address] | | | | | | [place] | | | | | | [address] | | | | | | | | +--------+ + + + + | 03/18/ | Office | Physical Medicine | Jovana Dawson | | | 2019 | Visit | and Rehabilitation | MELANY Man [address] | | | | | | [facility] | | | | | | [address] [place] | | | | | | [address] | | | | | | | | +--------+ + + + + | 04/01/ | Appointment | Oncology | Deny Mcmanus, | | 2019 | | | [address] | | | | | | [place] | | | | | | [place] [address] | | | | | | [phone] | | | | | | | | +--------+ + + + + | 04/08/ | Procedure | Physical Medicine | Leonard De Leon | | | 2019 | visit | and Rehabilitation | MD Audelia [address] | | | | | | [place], [place] | | | | | | [address] | | | | | | | | +--------+ + + + + | 04/30/ | Office | Cardiology | Shad Saavedra, | | | 2019 | Visit | | [address] | | | | | | [place], | | | | | | [place] [address] | | | | | | [phone] | | | | | | | | +--------+ + + + + + + +--------+ + + | Name | Type | Priori | Associated Diagnoses | Order Schedule | | | | ty | | | + + +--------+ + + | Ambulatory referral | Outpatient | Routin | Inter-twin | 1 Occurrences | | to | Referral | e | discordance, third | starting 01/16/2018 | | | | | trimester | until 01/16/2019 | + + +--------+ + + documented as of this encounter Procedures + +--------+ + + + | Procedure Name | Priori | Date/Time | Associated Diagnosis | Comments | | | ty | | | | + +--------+ + + + | EXTRA LAVENDER TOP | Routin | 01/20/2018 | | Results for this | | TUBE | e | 6:18 AM | | procedure are in the | | | | PDT | | results section. | + +--------+ + + + | CBC WITH | Routin | 01/19/2018 | | Results for this | | DIFFERENTIAL | e | 5:40 PM | | procedure are in the | | | | PDT | | results section. | + +--------+ + + + | CBC NO DIFFERENTIAL | Routin | 01/17/2018 | | Results for this | | | e | 6:31 AM | | procedure are in the | | | | PDT | | results section. | + +--------+ + + + | SECTION | | 01/16/2018 | Encounter for | | | | | 3:43 PM | maternal care for | | | | | PDT | low transverse scar | | | | | | from previous | | | | | | delivery | | | | | | Encounter for | | | | | | sterilization | | + +--------+ + + + | CBC NO DIFFERENTIAL | Routin | 01/16/2018 | | Results for this | | | e | 3:20 PM | | procedure are in the | | | | PDT | | results section. | + +--------+ + + + | TYPE AND SCREEN | Routin | 01/16/2018 | | Results for this | | | e | 3:20 PM | | procedure are in the | | | | PDT | | results section. | + +--------+ + + + | SURGICAL PATHOLOGY | Routin | 01/16/2018 | | Results for this | | EXAM | e | 12:00 AM | | procedure are in the | | | | PDT | | results section. | + +--------+ + + + documented in this encounter Results Extra Lavender Top Tube (01/20/2018 6:18 AM PDT) + +-------+ + + + | Component | Value | Ref Range | Performed | Pathologist | | | | | At | Signature | + +-------+ + + + | Extra | Done | | [facility] | | | [facility] | | | [facility] | | | Top [facility] | | | [facility] | | | | | | [facility] - | | | | | | LABORATORY | | + +-------+ + + + + + | Specimen | + + | Blood | + + + + + + + | Performing | Address | City/State/Zipcode | Phone Number | | Organization | | | | + + + + + | [facility] | [address] | [place] | [phone] | | [facility] | | [address] | | | - LABORATORY | | | | + + + + + CBC with Differential (01/19/2018 5:40 PM PDT) + + + + + + | Component | Value | Ref Range | Performed | Pathologist | | | | | At | Signature | + + + + + + | WBC | 10.5 | 4.0 - 11.0 K/uL | [facility] | | | | | [facility] | [facility] | [facility] | [facility] | [facility] - | | | | | | LAB[facility]ATORY | | + + + + + + | RBC | 3.91 | 3.70 - 5.20 | [facility] | | | | | M/uL | [facility] | | | | | | [facility] | | | | | | [facility] - | | | | | | LABORATORY | | + + + + + + | Hemoglobin | 12.1 | 11.5 - 16.0 | [facility] | | | | | g/dL | [facility] | | | | | | [facility] | | | | | | [facility] - | | | | | | LABORATORY | | + + + + + + | Hematocrit | 36.3 | 34.0 - 47.0 % | [facility] | | | | | [facility] | | | | | | [facility] | | | | | | [facility] - | | | | | | LABORATORY | | + + + + + + | MCV | 92.8 | 83.0 - 101.0 fL | [facility] | | | | | | [facility] | | | | | | [facility] | | | | | | [facility] - | | | | | | LABORATORY | | + + + + + + | MCH | 30.9 | 28.0 - 35.0 pg | [facility] | | | | | | [facility] | | | | | | [facility] | | | | | | [facility] - | | | | | | LABORATORY | | + + + + + + | MCHC | 33.3 | 32.0 - 36.0 | [facility] | | | | | g/dL | [facility] | | | | | | [facility] | | | | | | CENTER - | | | | | | LABORATORY | | + + + + + + | RDW-CV | 14.3 | <15.0 % | [facility] | | | | | | [facility] | | | | | | [facility] | | | | | | C[facility] - | | | | | | LABORATORY | | + + + + + + | Platelet | 201 | 140 - 440 K/uL | [facility] | | | Count | | | [facility] | | | [facility] | | [facility] | | | | | | C[facility] - | | | | | | LABORATORY | | + + + + + + | MPV | 7.9 | fL | [facility] | | | | | | [facility] | | | | | | [facility] | | | | | | C[facility] - | | | | | | LABORATORY | | + + + + + + | % | 71.7 | 45.0 - 82.0 % | [facility] | | | Neutrophils | | | [facility] | | | | | | MEDICAL | | | | | | CENTER - | | | | | | LABORATORY | | + + + + + + | % | 19.8 (L) | 20.0 - 45.0 % | [facility] [...] + + + + | % | 2.2 | 0.0 - 5.0 % | [facility] | | | Eosinophils | | | [facility] | | | | | | MEDICAL | | | | | | CENTER - | | | | | | LABORATORY | | + + + + + + | % Basophils | 1.4 (H) | 0.0 - 1.0 % | [facility] | | | | | | [facility] | | | | | | [facility] | | | | | | CENTER - | | | | | | LABORATORY | | + + + + + + | Absolute | 7.50 | 1.80 - 8.50 | [facility] | | | Neutrophils | | K/uL | [facility] | | | | | | [facility] | | | | | | CENTER - | | | | | | LABORATORY | | + + + + + + | Absolute | 2.10 | 0.60 - 3.20 | [facility] | | | Lymphocytes | | K/uL | [facility] | | | | | | MEDICAL | | | | | | CENTER - | | | | | | LABORATORY | | + + + + + + | Absolute | 0.50 | 0.00 - 1.00 | [facility] | | | Monocytes | | K/uL | [facility] | | | | | | MEDICAL | | | | | | CENTER - | | | | | | LABORATORY | | + + + + + + | Absolute | 0.20 | 0.00 - 0.40 | [facility] | | | Eosinophils | | K/uL | [facility] | | | | | | [facility]ICAL | | | | | | CENTER - | | | | | | LABORATORY | | + + + + + + | Absolute | 0.10 | 0.00 - 0.10 | [facility] | | | Basophils | | K/uL | [facility] | | | | | [...] | + + + + + | [facility] | [address] | [place] | [phone] | | [facility] | | [address] | | | - LABORATORY | | | | + + + + + CBC no Differential (01/17/2018 6:31 AM PDT) + + + + + + | Component | Value | Ref Range | Performed | Pathologist | | | | | At | Signature | + + + + + + | WBC | 10.1 | 4.0 - 11.0 K/uL | [facility] | | | | | [facility] | | | | | | [facility] | | | | | | [facility] - | | | | | | LABORATORY | | + + + + + + | RBC | 3.54 (L) | 3.70 - 5.20 | [facility] | | | | | M/uL | [facility] | | | | | | MEDICAL | | | | | | CENTER - | | | | | | LABORATORY | | + + + + + + | Hemoglobin | 11.4 (L) | 11.5 - 16.0 | [facility] | | | | | g/dL | [facility] | | [facility] | | [facility] | | | | | | [facility] - | | | | | | LABORATORY | | + + + + + + | Hematocrit | 33.2 (L) | 34.0 - 47.0 % | [facility] | | | | | | [facility] | | | | | [facility] | | | | | | [facility] - | | | | | | LABORATORY | | + + + + + + | MCV | 93.9 | 83.0 - 101.0 fL | [facility] | | | | | | [facility] | | | | | | [facility] | | | | | | [facility] - | | | | | | LABORATORY | | + + + + + + | MCH | 32.3 | 28.0 - 35.0 pg | [facility] | | | | | | [facility] | | | | | | [facility] | | | | | | [facility] - | | | | | | LABORATORY | | + + + + + + | MCHC | 34.4 | 32.0 - 36.0 | [facility] | | | | | g/dL | [facility] | | | | | | MED[facility] | | | | | | CENTER - | | | | | | LABORATORY | | + + + + + + | RDW-CV | 14.3 | <15.0 % | [facility] | | | | | | [facility] | | | | | | [facility] | | | | | | CENTER - | | | | | | LABORATORY | | + + + + + + | Platelet | 157 | 140 - 440 K/uL | [facility] | | | Count | | | [facility] | | | | | | [facility]ICAL | | | | | | CENTER - | | | | | | LABORATORY | | + + + + + + | MPV | 7.8 | fL | [facility] | | | | [...] ST[facility] | [address] | [place], [place] | [phone] | | [facility] | | [address] | | | - LABORATORY | | | | + + + + + Type and Screen (01/16/2018 3:20 PM PDT) + + + + + + | Component | Value | Ref Range | Performed | Pathologist | | | | | At | Signature | + + + + + + | ABO | A | | [facility] | | | | | | [facility] | | | | | | [facility] | | | | | | CENTER - | | | | | | BLOOD BANK | | + + + + + + | Rh Type | Positive | | [facility] | | | | | | [facility] | | | | | | [facility] | | | | | | CENTER - | | | | | | BLOOD BANK | | + + + + + + | Antibody | Negative | | [facility] | | | Screen | | | [facility] | | | | | | MEDICAL | | | | | | CENTER - | | | | | | BLOOD BANK | | + + + + + + + + | Specimen | + + | Blood | + + + + + + + | Performing | Address | City/State/Zipcode | Phone Number | | Organization | | | | + + + + + | [facility] | [address] | [place] | | | [facility] | | [address] | | | - BLOOD BANK | | | | + + + + + CBC no Differential (01/16/2018 3:20 PM PDT) + + + + + + | Component | Value | Ref Range | Performed | Pathologist | | | | | At | Signature | + + + + + + | WBC | 11.2 (H) | 4.0 - 11.0 K/uL | [facility] | | | | | | [facility] | | | | | [facility] | | | | | | [facility] - | | | | | | LABORATORY | | + + + + + + | RBC | 3.99 | 3.70 - 5.20 | [facility] | | | | | M/uL | [facility] | | [facility] | [facility] - | | | | | | LABORATORY | | + + + + + + | Hemoglobin | 12.3 | 11.5 - 16.0 | [facility] | | | | | g/dL | [facility] | | | | | | [facility] | | | | | | [facility] - | | | | | | LABORATORY | | + + + + + + | Hematocrit | 37.2 | 34.0 - 47.0 % | [facility] | | | | | | [facility] | | | | | [facility] | | | | | | [facility] - | | | | | | LABORATORY | | + + + + + + | MCV | 93.3 | 83.0 - 101.0 fL | [facility] | | | | | | [facility] | | [facility] | [facility] | | | | | | [facility] - | | | | | | LABORATORY | | + + + + + + | MCH | 30.7 | 28.0 - 35.0 pg | [facility] | [facility] | | [facility] | [facility] | [facility] - | | | | | | LABORATORY | | + + + + + + | MCHC | 32.9 | 32.0 - 36.0 | [facility] | | | | | g/dL | [facility] | | | [facility] | [facility] - | | | | | | LABORATORY | | + + + + + + | RDW-CV | 14.3 | <15.0 % | [facility] | [facility] | | [facility] | | | [facility] | | [facility] - | | | | | | LABORATORY | | + + + + + + | Platelet | 193 | 140 - 440 K/uL | [facility] | | | Count | | | [facility] | | [facility] | | | | [facility] | [facility] - | | | | | | LABORATORY | | + + + + + + | MPV | 7.7 | fL | [facility] | | | | | | [facility] [...] [address] | [place] | [phone] | | [facility] | | [address] | | | - LABORATORY | | | | + + + + + Surgical Pathology Exam (01/16/2018 12:00 AM PDT) + + | Specimen | + + | | + + + + + | Narrative | Performed At | + + + | SPECIMEN(S): A FALLOPIAN TUBES, BILATERAL SPECIMEN SOURCE: [facility] | | FALLOPIAN TUBES, BILATERAL CLINICAL HISTORY: O34.211 (Maternal | [facility] | | care for low transverse scar from previous delivery), Z30.2 | | | (encounter for sterilization) FINAL PATHOLOGIC DIAGNOSIS: | | | Bilateral fallopian tubes: - Two segments of benign oviduct, both | | | completely transected. JVR:[facility]:C2NR GROSS DESCRIPTION: The | | | specimen is labeled "Ashley Webb, bilateral tube segments". | | | Submitted in formalin are two 1.3 cm segments of oviduct, one segment | | | is inked green, the other is inked black. They are serially sectioned | | | and totally embedded in one cassette. JVR:[facility] MICROSCOPIC | | | EXAMINATION: Histologic sections of all submitted blocks are examined | | | by light microscopy. These findings, together with the gross | | | examination, support the pathologic diagnosis. PERFORMING | | | LABORATORY: Tissue processing and slide preparation were performed by | | | [facility], [address] [place] [address] 5, [place] [address] | | | (Steel Tester: Robin Holt M.D.; IA#: [id number]). | | | Professional interpretation was performed by [facility], | | | [facility], [address] [facility] | | | [place] [address] (Steel Tester: Robin Holt M.D.; IA#: | | | [id number]). Diagnostician: Robin Holt MD Pathologist | | | Electronically Signed 01/18/2018 | | + + + + +---------+ + + | Performing | Address | City/State/Zipcode | Phone Number | | Organization | | | | + +---------+ + + | [facility] | | | | | [facility] | | | | + +---------+ + + documented in this encounter Visit Diagnoses + + | Diagnosis | + + | Encounter for maternal care for low transverse scar from previous delivery | + + | Encounter for sterilization Sterilization | + + documented in this encounter Administered Medications + +---------+ +------+-------+------+ | Medication Order | MAR | Action | Dose | Rate | Site | | | Action | Date | | | | + +---------+ +------+-------+------+ | ampicillin-sulbactam (UNASYN) 3 | New Bag | 01/22/20 | 3 g | 200 | | | g in sodium chloride 0.9% 100 mL | | 18 12:07 | | mL/hr | | | IVPB 3 g, Intravenous, | | PM PDT | | | | | Administer over 30 Minutes, EVERY | | | | | | | 6 HOURS (4 times per day), First | | | | | | | dose on Mon01/19/18 at 1430, | | | | | | | Activate system and mix before | | | | | | | use., Indications: Post-Operative | | | | | | | Wound Infection | | | | | | + +---------+ +------+-------+------+ +---------+ +-----+-------+---+ | New Bag | 01/22/20 | 3 g | 200 | | | | 18 5:49 | | mL/hr | | | | AM PDT | | | | +---------+ +-----+-------+---+ | New Bag | 01/22/20 | 3 g | 200 | | | | 18 12:06 | | mL/hr | | | | AM PDT | | | | +---------+ +-----+-------+---+ +---+---+ | | | +---+---+ + +-------+ +--------+---+---+ | buPROPion (WELLBUTRIN) tablet | Given | 01/22/20 | 100 mg | | | | 100 mg 100 mg, Oral, 2 TIMES | | 18 8:52 | | | | | DAILY, First dose on Mon01/19/18 | | AM PDT | | | | | at 0900 | | | | | | + +-------+ +--------+---+---+ +-------+ +--------+---+---+ | Given | 01/21/20 | 100 mg | | | | | 18 8:53 | | | | | | PM PDT | | | | +-------+ +--------+---+---+ | Given | 01/21/20 | 100 mg | | | | | 18 8:10 | | | | | | AM PDT | | | | +-------+ +--------+---+---+ +---+---+ | | | +---+---+ + +-------+ +--------+---+---+ | docusate sodium (COLACE) | Given | 01/21/20 | 200 mg | | | | capsule 200 mg 200 mg, Oral, | | 18 8:54 | | | | | NIGHTLY, First dose on Mon | | PM PDT | | | | | 01/16/18 at 2100, Hold for loose | | | | | | | stools, | | | | | | + +-------+ +--------+---+---+ +-------+ +--------+---+---+ | Given | 01/20/20 | 200 mg | | | | | 18 8:10 | | | | | | PM PDT | | | | +-------+ +--------+---+---+ | Given | 01/19/20 | 200 mg | | | | | 18 9:24 | | | | | | PM PDT | | | | +-------+ +--------+---+---+ +---+---+ | | | +---+---+ + +-------+ +---------+---+---+ | HYDROmorphone (DILAUDID) | Given | 01/17/20 | 0.25 mg | | | | injection 0.25-1 mg 0.25-1 mg, | | 18 7:56 | | | | | Intravenous, EVERY 2 HOURS PRN, | | PM PDT | | | | | Pain, Starting 01/16/18 at | | | | | | | 1851, If oral route not an | | | | | | | option. Slow IV push, not faster | | | | | | | than 0.3mg/minute. First dose | | | | | | | must be lowest dose, titrate to | | | | | | | effective dose by repeat of | | | | | | | lowest dose every 30 minutes prn | | | | | | | pain, may not exceed maximum dose | | | | | | | ordered per interval. Use Pasero | | | | | | | Sedation Scale., Post-op/Phase | | | | | | | II | | | | | | + +-------+ +---------+---+---+ +---+---+ | | | +---+---+ + +-------+ +--------+---+---+ | ibuprofen (ADVIL,MOTRIN) tablet | Given | 01/21/ | 600 mg | | | | 600 mg 600 mg, Oral, EVERY 6 | | 18 12:07 | | | | | HOURS PRN, Pain, Starting Wed | | PM PDT | | | | | 01/17/18 at 1800, For 9 days, If | | | | | | | urine output is less than 240ml/8 | | | | | | | hours (30ml/hr) or if signs of | | | | | | | bleeding, contact MD and hold. | | | | | | | Administer with food or snack, | | | | | | | Post-op/Phase II | | | | | | + +-------+ +--------+---+---+ +-------+ +--------+---+---+ | Given | 01/21/20 | 600 mg | | | | | 18 9:21 | | | | | | PM PDT | | | | +-------+ +--------+---+---+ | Given | 01/21/20 | 600 mg | | | | | 18 12:10 | | | | | | PM PDT | | | | +-------+ +--------+---+---+ +---+---+ | | | +---+---+ + +---------+ +---+-------+---+ | lactated ringers (LR) infusion | New Bag | 01/17/20 | | 125 | | | at 125 mL/hr, Intravenous, | | 18 11:00 | | mL/hr | | | CONTINUOUS, Starting 01/16/18 | | PM PDT | | | | | at 1915, Discontinue IV fluid | | | | | | | when tolerating PO well, | | | | | | | | | | | | | + +---------+ +---+-------+---+ +---+---+ | | | +---+---+ + +-------+ +--------+---+---+ | magnesium hydroxide (MILK OF | Given | 01/22/20 | 30 mLs | | | | MAGNESIA) 400 mg/5 mL suspension | | 18 7:46 | | | | | 30 mL 30 mL, Oral, DAILY PRN, | | AM PDT | | | | | Constipation, Starting Sat | | | | | | | 01/20/18 at 0756, Robert august., | | | | | | + +-------+ +--------+---+---+ +-------+ +--------+---+---+ | Given | 01/21/20 | 30 mLs | | | | | 18 8:10 | | | | | | AM PDT | | | | +-------+ +--------+---+---+ +---+---+ | | | +---+---+ + +-------+ +-------+---+---+ | oxyCODONE (ROXICODONE) tablet | Given | 01/22/20 | 15 mg | | | | 5-20 mg 5-20 mg, Oral, EVERY 3 | | 18 12:07 | | | | | HOURS PRN, Pain, Starting Tue | | PM PDT | | | | | 01/16/18 at 1851, First dose must | | | | | | | be the lowest dose, can titrate | | | | | | | to effective dose by repeat of | | | | | | | lowest dose every 60 minutes prn | | | | | | | pain, may not exceed maximum dose | | | | | | | ordered per interval. Use Pasero | | | | | | | Sedation Scale., Post-op/Phase | | | | | | | II | | | | | | + +-------+ +-------+---+---+ +-------+ +-------+---+---+ | Given | 01/22/20 | 15 mg | | | | | 18 8:52 | | | | | | AM PDT | | | | +-------+ +-------+---+---+ | Given | 01/22/20 | 15 mg | | | | | 18 5:11 | | | | | | AM PDT | | | | +-------+ +-------+---+---+ +---+---+ | | | +---+---+ + +-------+ + +---+---+ | 27-0.8 mg multivitamin | Given | 01/22/20 | 1 tablet | | | | 1 tablet 1 tablet, Oral, DAILY, | | 18 8:52 | | | | | First dose on Mon01/16/18 at | | AM PDT | | | | | 1915, | | | | | | + +-------+ + +---+---+ +-------+ + +---+---+ | Given | 01/21/20 | 1 tablet | | | | | 18 8:10 | | | | | | AM PDT | | | | +-------+ + +---+---+ | Given | 01/20/20 | 1 tablet | | | | | 18 8:23 | | | | | | AM PDT | | | | +-------+ + +---+---+ +---+---+ | | | +---+---+ documented in this encounter
--- OUTSIDE RECORDS SUMMARY | ~2020-03-13 | XMS | Encounter Summary ---
Demographics + + + | Address | [address] | | | [place] [address] | + + + | Home Phone | | + + + | Preferred Language | Unknown | + + + | Marital Status | | + + + | Yazdanism Affiliation | Unknown | + + + | Race | Unknown | + + + | Ethnic Group | Unknown | + + + Author + + + | Author | [facility] | | | and [place] | + + + | Organization | [facility] | | [...] Team Providers + +------+ + | Care Straightener Hand Name | Role | Phone | + +------+ + | Burton Masters MD | PCP | | + +------+ + Reason for Visit + + + | Reason | Comments | + + + | Family/caregiver | | | Concerns | | + + + Encounter Details +--------+ + + + + | Date | Type | Department | Care Team | Description | +--------+ + + + + | 04/25/ | Telephone | [facility] | [place] | Family/caregiver | | 2019 | | [facility] | J, PharmD [address] | Concerns | | | | [facility] [address] | | | | | [address] | [place] [address] | | | | | [place] [address] | [phone] | | | | | [phone] | | | +--------+ + + + [...] | | | Visit | | [address] [facility] [address] | | | | | | [place] | | | | | | [address] | | | | | | | | +--------+ + + + + | 03/18/ | Office | Physical Medicine | Jovana Dawson | | 2019 | Visit | and Rehabilitation | MELANY [address] | | | | | | [address] [facility] | | | | | | [address] [place] | | | | | | [address] | | | | | | | | +--------+ + + + + | 04/01/ | Appointment | Oncology | Deny Mcmanus, | | 2019 | | | [address] | | | | | | [address] [place] | | | | | | [place] [address] | | | | | | [phone] | | | | | | | | +--------+ + + + + | 04/08/ | Procedure | Physical Medicine | Leonard De Leon | | | 2019 | visit | and Rehabilitation | MD [address] | | | | | | [place] | | | | | | [address] | | | | | | | | +--------+ + + + + | 04/30/ | Office | Cardiology | Shad Saavedra, | | | 2019 | Visit | | MD [address] | | | | | | [place], | | | | | | [place] [address] | | | | | | [phone] | | | | | | | | +--------+ + + + + documented as of this encounter Visit Diagnoses Not on filedocumented in this encounter"
--- OUTSIDE RECORDS SUMMARY | ~2020-03-13 | XMS | Encounter Summary ---
Demographics + + + | Address | [address] | | | [place] [address] | + + + | Home Phone | | + + + | Preferred Language | Unknown | + + + | Marital Status | | + + + | Episcopal Affiliation | Unknown | + + + | Race | Unknown | + + + | Ethnic Group | Unknown | + + + Author + + + | Author | [facility] | | | and [place] | + + + | Organization | [facility] | | [...] Team Providers + +------+ + | Care Warehouse Person Name | Role | Phone | + +------+ + | Burton Masters MD | PCP | | + +------+ + Reason for Visit + + + | Reason | Comments | + + + | Cancel Surgery | | + + + Encounter Details +--------+ + + + + | Date | Type | Department | Care Team | Description | +--------+ + + + + | 07/24/ | Telephone | [facility] | Kendrick Kumar, | Cancel Surgery | | 2019 | | CARDIOLOGY [facility] | MD [address] | | | | | [address] | [address] [place], | | | | | [facility] [address] [place] | [place] [address] | | | | | [address] | [phone] | | | | | [phone] | | | +--------+ + + + [...] | | | Visit | | [address] [facility] [address] | | | | | | [place] | | | | | | [address] | | | | | | | | +--------+ + + + + | 03/18/ | Office | Physical Medicine | Jovana Dawson | | | 2019 | Visit | and Rehabilitation | [address] | | | | | | [address] [facility] | | | | | | [address] [place] | | | | | | [address] | | | | | | | | +--------+ + + + + | 04/01/ | Appointment | Oncology | Deny Mcmanus, | | 2019 | | | [address] | | | | | | [address] [place], | | | | | | [place] [address] | | | | | | [phone] | | | | | | | | +--------+ + + + + | 04/08/ | Procedure | Physical Medicine | Leonard De Leon | | | 2019 | visit | and Rehabilitation | MD [address]iki [address] | | | | | | [place] | | | | | | [address] | | | | | | | | +--------+ + + + + | 04/30/ | Office | Cardiology | Shad Saavedra, | | | 2019 | Visit | | MD [address] | | | | | | [place], | | | | | | [place] [address] | | | | | | [phone] | | | | | | | | +--------+ + + + + documented as of this encounter Visit Diagnoses Not on filedocumented in this encounter"
--- OUTSIDE RECORDS SUMMARY | ~2020-03-13 | XMS | Encounter Summary ---
Demographics + + + | Address | [address] | | | [place] [address] | + + + | Home Phone | | + + + | Preferred Language | Unknown | + + + | Marital Status | | + + + | Roman Catholic Affiliation | Unknown | + + + | Race | Unknown | + + + | Ethnic Group | Unknown | + + + Author + + + | Author | [facility] | | | and [place] | + + + | Organization | [facility] | | | and [...] Team Providers + +------+ + | Care Beam Dyer Name | Role | Phone | + +------+ + | Burton Masters MD | PCP | | + +------+ + Reason for Referral Evaluate & Treat (Routine) +--------+ + + + + + | Status | Reason | Specialty | Diagnoses / | Referred By | Referred To | | | | | Procedures | Contact | Contact | +--------+ + + + + + | Closed | Specialty | Neurosurgery | Diagnoses | Sonam, | Adrian Alvarado | | | Services | | Back pain, | Burton Rizzo, | MD [address] | | | Required | | unspecified | MD [address] | | | | | back | [address] | [place], [place] | | | | | location, | [place], | [address] | | | | | unspecified | [place] [address] | Phone: | | | | | back pain | Phone: | [phone] | | | | | laterality, | [phone] | Fax: | | | | | unspecified | Fax: | [phone] | | | | | chronicity | [phone] | | +--------+ + + + + + Reason for Visit + + + | Reason | Comments | + + + | Follow-up | | + + + | Care | | + + + | Back Pain | | + + + Encounter Details +--------+---------+ + + + | Date | Type | Department | Care Team | Description | +--------+---------+ + + + | 12/16/ | Office | [facility] | Burton Masters Matthias, | Back pain, | | 2017 | Visit | [facility] | [address] | unspecified back | | | | [address] | [place] | location, | | | | [place], [place] | [address] | unspecified back | | | | [address] | | pain laterality, | | | | [phone] | | unspecified | | | | | | chronicity (Primary | | | | | | Dx) | +--------+---------+ + + + Social History + +-------+ +--------+------+ | Tobacco Use | Types | Packs/Day | Years | Date | | | | | Used | | + +-------+ +--------+------+ | Current Every Day | | 0.5 | | | | Smoker | | | | | + +-------+ +--------+------+ + +---+---+---+ | Smokeless Tobacco: | | | | | Never Used | | | | + +---+---+---+ + + +---------+ + | Alcohol Use | Drinks/Week | oz/Week | Comments | + + +---------+ + | No | 0 Standard drinks | 0.0 | | | | or equivalent | | [...] + + + | Blood Pressure | 122/86 | 12/16/2016 9:00 AM | | | | | PST | | + + + + + | Pulse | 70 | 12/16/2016 9:00 AM | | | | | PST | | + + + + + | Temperature | - | - | | + + + + + | Respiratory Rate | 16 | 12/16/2016 9:00 AM | | | | | PST | | + + + + + | Oxygen Saturation | 99% | 12/16/2016 9:00 AM | | | | | PST | | + + + + + | Inhaled Oxygen | - | - | | | Concentration | | | | + + + + + | Weight | 96.2 kg (212 lb) | 12/16/2016 9:00 AM | | | | | PST | | + + + + + | Height | - | - | | + + + + + | Body Mass Index | 32.23 | 11/30/2016 10:02 AM | | | | | PST | | + + + + + documented in this encounter Progress Notes Burton Masters MD - 12/16/2016 10:35 AM PSTFormatting of this note might be different f rom the original. Subjective: Patient ID: Ashley Webb is a 31 y.o. female. Back Pain This is a recurrent problem. The pain is at a severity of 5/10. The pain is moderate. The t reatment provided significant relief. Past Medical History Diagnosis Date Anxiety Depression Lumbar radiculopathy - left lower extremity 04/16/2015 DDD (degenerative disc disease), lumbar 04/16/2015 Chronic low back pain 04/16/2015 Patient Active Problem List Diagnosis Date Noted POA Lumbar radiculopathy - left lower extremity 04/16/2015 Unknown DDD (degenerative disc disease), lumbar 04/16/2015 Unknown Chronic low back pain 04/16/2015 Unknown Past Surgical History Procedure Laterality Date section, classic Dilation and curettage of uterus section N/A 10/14/2016 Procedure: Repeat ; Surgeon: Dorota Beal DO; Location: [facility] Social History Social History Marital Status: Single Spouse Name: N/A Number of Children: N/A Years of Education: N/A Social History Main Topics Smoking status: Current Every Day Smoker -- 0.50 packs/day Smokeless tobacco: Never Used Alcohol Use: No Drug Use: No Sexual Activity: Not Asked Other Topics Concern None Social History Narrative Current Outpatient Prescriptions on File Prior to Visit Medication Sig Dispense Refill buPROPion (WELLBUTRIN SR) 150 mg 12 hr tablet 1 tablet by mouth bid. 180 tablet 0 diphenhydrAMINE (BENADRYL) 25 mg tablet Take 25 mg by mouth every 6 hours as needed for Itching. docusate sodium (COLACE) 100 MG capsule Take 100 mg by mouth 2 times daily. 60 capsule 1 ibuprofen (ADVIL,MOTRIN) 600 MG tablet Take 1 tablet by mouth every 6 hours as needed f or Pain. 40 tablet 0 Sbkwdsfy-Zlc-Oc-FA (PRE- PO) Take 1 tablet by mouth Daily. No current facility-administered medications on file prior to visit. No Known Allergies Review of Systems Constitutional: Negative. HENT: Negative. Eyes: Negative. Respiratory: Negative. Cardiovascular: Negative. Gastrointestinal: Negative. Genitourinary: Negative. Musculoskeletal: Positive for back pain. Skin: Negative. Neurological: Negative. Psychiatric/Behavioral: Negative. Objective: Physical Exam Constitutional: She is oriented to person, place, and time. She appears well-developed and well-nourished. No distress. HENT: Head: Normocephalic and atraumatic. Eyes: Conjunctivae are normal. Cardiovascular: Regular rhythm. Pulmonary/Chest: Effort normal. Musculoskeletal: She exhibits no edema. Neurological: She is alert and oriented to person, place, and time. Skin: Skin is warm and dry. Psychiatric: She has a normal mood and affect. Assessment: 1. 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 * [facility] Neurosurgery - AMB Referral Plan: Orders Placed This Encounter Procedures * [facility] Neurosurgery - AMB Referral Referral Priority: Routine Referral Type: Evaluate & Treat Referral Reason: Specialty Services Required Requested Specialty: Neurosurgery Number of Visits Requested: 1 documented in this encounter Plan of Treatment +--------+ + + + + | Date | Type | Specialty | Care Team | Description | +--------+ + + + + | 03/17/ | Virtual | Neurosurgery | Zuhair Flores | | | 2019 | Office | | MD Joselito [address] | | | | Visit | | [facility] | | | | | | [place] | | | | | | [id number] | | | | | | | | +--------+ + + + + | 03/18/ | Office | Physical Medicine | Jovana Dawson | | | 2019 | Visit | and Rehabilitation | MELANY Man [address] | | | | | | [facility] | | | | | | [address] [place] | | | | | | [address] | | | | | | | | +--------+ + + + + | 04/01/ | Appointment | Oncology | Deny Mcmanus, | | | 2019 | | | [address] | | | | | | [place], | | | | | | [place] [address] | | | | | | [phone] | | | | | | | | +--------+ + + + + | 04/08/ | Procedure | Physical Medicine | Leonard De Leon | | | 2019 | visit | and Rehabilitation | T, [address] | | | | | | [place] | | | | | | [address] | | | | | | | | +--------+ + + + + | 04/30/ | Office | Cardiology | Shad Saavedra, | | | 2019 | Visit | | [address] | | | | | | [place], | | | | | | [place] [address] | | | | | | [phone] | | | | | | | | +--------+ + + + + + + +--------+ + + | Name | Type | Priori | Associated Diagnoses | Order Schedule | | | | ty | | | + + +--------+ + + | * [facility] [place] | Outpatient | Routin | Back pain, | Ordered: 12/16/2016 | | Neurosurgery - AMB | Referral | e | unspecified back | | | Referral | | | location, | | | | | | unspecified back | | | | | | pain laterality, | | | | | | unspecified | | | | | | chronicity | | + + +--------+ + + documented as of this encounter Procedures + +--------+ + + + | Procedure Name | Priori | Date/Time | Associated Diagnosis | Comments | | | ty | | | | + +--------+ + + + | ECG - EXTERNAL SCAN | | 03/06/2014 | | Results for this | | | | 12:00 AM | | procedure are in the | | | | PDT | | results section. | + +--------+ + + + | ECG - EXTERNAL SCAN | | 03/03/2014 | | Results for this | | | | 12:00 AM | | procedure are in the | | | | PDT | | results section. | + +--------+ + + + documented in this encounter Results ECG - EXTERNAL SCAN (03/06/2014 12:00 AM PDT) + + + | Narrative | Performed At | + + + | Ordered by an | | | unspecified provider. | | + + + ECG - EXTERNAL SCAN (03/03/2014 12:00 AM PDT) + + + | Narrative | Performed At | + + + | Ordered by an | | | unspecified provider. | | + + + documented in this encounter Visit Diagnoses + + | Diagnosis | + + | Back pain, unspecified back location, unspecified back pain laterality, unspecified | | chronicity - Primary | + + documented in this encounter"
--- OUTSIDE RECORDS SUMMARY | ~2020-03-13 | XMS | Encounter Summary ---
Demographics + + + | Address | [address] [facility] | | | [place] [address] | + + + | Home Phone | | + + + | Preferred Language | Unknown | + + + | Marital Status | | + + + | Druze Affiliation | Unknown | + + + | Race | Unknown | + + + | Ethnic Group | Unknown | + + + Author + + + | Author | [facility] | | | and [place] | + + + | Organization | [facility] | | | [...] Team Providers + +------+ + | Care Operations Liaison Name | Role | Phone | + +------+ + | No, Physician | PCP | Unavailable | + +------+ + Reason for Visit [...] | | | | | | | [[id number]] | | | | | | | Procedures | | | | | | | [place] | | | | | | | DELIVERY | | | | | | | ONLY | | | | | | | | | | | | | | SECTION | | | +--------+--------+ + + + + Encounter Details +--------+---------+ + + + | Date | Type | Department | Care Team | Description | +--------+---------+ + + + | 10/14/ | Surgery | [facility] | Dorota Beal | Repeat | | 2015 | | [facility] | [facility] [address] | | | | | [address] | [place] | | | | | [place] | [place] [address] | | | | | [address] | [phone] | | | | | [phone] | | | +--------+---------+ + + + Social History + +-------+ +--------+------+ | Tobacco Use | Types | Packs/Day | Years | Date | | | | | Used | | + +-------+ +--------+------+ | Former Smoker | | 0.5 | | | + +-------+ +--------+------+ + [...] + + + | Blood Pressure | 118/71 | 10/16/2016 8:00 AM | | | | | PST | | + + + + + | Pulse | 92 | 10/16/2016 8:00 AM | | | | | PST | | + + + + + | Temperature | 36 C (96.8 F) | 10/16/2016 8:00 AM | | | | | PST | | + + + + + | Respiratory Rate | 20 | 10/16/2016 8:00 AM | | | | | PST | | + + + + + | Oxygen Saturation | 96% | 10/14/2016 7:47 PM | | | | | PST | | + + + + + | Inhaled Oxygen | - | - | | | Concentration | | | | + + + + + | Weight | - | - | | + + + + + | Height | - | - | | + + + + + | Body Mass Index | - | - | | + + + + + documented in this encounter Discharge Summaries Halima Flanagan DO - 10/16/2016 9:53 AM PST DISCHARGE SUMMARY-OBSTETRICS Date of Admission: 10/14/2016 Date of Discharge: 10/16/2016 ATTENDING CLINICIAN: Dorota Beal DO PRIMARY DELIVERY TECH: No Physician on file Diagnosis: Mild wound cellulitis Procedures: Repeat HISTORY OF PRESENT ILLNESS 31 y.o. 39w0d presented for elective repeat section HOSPITAL COURSE: Pre-Delivery Course: Patient had an uncomplicated labor course and delivery. delivered by , Low Transverse . At 10/14/2016 0810 ,Ashley bore a living male 3.9 kg (8 lb 9.6 oz) infant, . scores were 9 /9 at one and five minutes respectiv all. Estimated Blood loss was 600ml. Post-Delivery Course Her postoperative course was unremarkable. Patient had good return of her bowel and bladde r function, was tolerating a regular diet and was ambulating and voiding well. On postop da y number 1 her hemoglobin was Lab Results Component Value Date HGB 10.8* 10/15/2016 . Pain was well controlled. Her vital signs were stable and afebrile. Nursing was going well. She was discharged home in stable condition. She was given written post operative inst ructions in regards to her activity level and limitations. POD#2 early wound cellulitis. Started keflex PO. DISPOSITION: home CONDITION UPON DISCHARGE: stable DISCHARGE MEDICATIONS: Discharge Medications New Medications Details cephalexin 500 mg capsule Take 1 capsule by mouth 4 times daily for 7 days. Indications: Non-Purulent Skin and Soft Tissue Infection aka: KEFLEX docusate sodium 100 MG capsule Take 200 mg by mouth 2 times daily. aka: COLACE ibuprofen 600 MG tablet Take 1 tablet by mouth every 6 hours as needed for Pain. aka: ADVIL,MOTRIN oxyCODONE-acetaminophen 7.5-325 mg per tablet Take 1 tablet by mouth every 6 hours as needed for Pain. aka: PERCOCET Unchanged Medications Details PRE-CHIDI PO Take 1 tablet by mouth Daily. Immunization History Administered Date(s) Administered INFLUENZA PF QUAD(PED/ADOL/ADULT),PSKT or VIAL 08/16/2014 FOLLOWUP: Incision check and staple removal in 3 days. 2 weeks for incision check and 6 weeks for routine exam DIET: Regular PRECAUTIONS: No driving for two weeks or while on narcotics. No heavy lifting and pelvic rest for 6 weeks. Call or return if pain not controlled, fever, intractable nausea or vomit ing, trouble with urination, heavy vaginal bleeding greater than 1 pad per hour, suicidal or homicidal thoughts, signs or symptoms of wound infection, or any other concerns. Electronically Signed by: Halima Flanagan DO 10/16/2016 9:53 Kristy mented in this encounter Discharge Instructions Instructions Jt Villela RN - 10/16/2016Formatting of this note might be different fro m the original. Discharge Instructions for Section () [...] position. Remember, it can take as long [id number] for a incision to heal. Activity Here [...] symptoms Feelings of anxiety, panic, and/or depression [id number] [employer]. [address] [place] [address]. All righ ts reserved. This information is not intended as a substitute for professional medical care. Always follow your healthcare professional's instructions. After a It can take time to recover fully after a . It s important to take care of yourse lf both for your own sake and because your new baby needs you. Incision care Tips for taking care of your incision include: You will probably be able to shower and pat the incision dry. Watch your incision for signs of infection. These include redness that gets worse or flu id draining from it. Hold a pillow against the incision when you get up from a lying or sitting position. Als o do this when you laugh or cough. Avoid heavy lifting. Don t lift anything heavier than your baby until your healthcare provider tells you otherwise. When to call your healthcare provider Call your healthcare provider if you have: A fever of 100.4F(38.0C) or higher Redness, pain, or discharge at the incision site that gets worse Vaginal bleeding that soaks through a pad per hour or large blood clots Severe pain in your stomach No bowel movement within 1 week after the of your baby Vaginal discharge that has a foul odor Swollen, red, and painful area in the leg Burning when urinatingor blood in the urine A rash or hives Sore, red, painful area on the breasts(may also have flu-like symptoms) Feelings of anxiety, panic, anddepression, or difficulty bonding with your baby [id number] [employer]. [address] [place] [address], [place] [address]. All righ ts reserved. This information is not intended as a substitute for professional medical care. Always follow your healthcare professional's instructions. Expressing Your Milk Work, school, or even a late-night movie can require you to be away from your baby.You ca n feed your baby breastmilk in a bottle. But remember, don t give your baby bottles or pac ifiers until he or she is at least 4 weeks old. This is so you both can get a good start on .Bottles and pacifiers can get in the way of your baby learning to breastfeed and your body making exactly enough milk to meet your baby's needs. Always wash your hands before removing milk from your breast to a bottle (expressing). A double pump allows you to pump both breasts at once. Stimulating letdown Gently massage your breasts to stimulate the milk flow. Start under the arm and move around the entire breast. If you re away from your baby, looking at your baby s picture can he lp your milk let down. Expressing by hand or pump Your csm consultant or other healthcare provider can help you choose the best method for your needs. Expressing by hand reduces pressure in swollen or leaky breasts. It may be a good way to begin a pumping session. If you need to provide expressed milk to your baby in the first fe w days after delivery, hand expression can often obtain more colostrum than using a pump. As k your nurse or healthcare provider to teach you how to hand express. A pump works like a baby s suck and is the fastest way to express milk. Pumps come in manual, battery-operated, and electric styles. To protect your breasts, follow the instructi ons that come with your pump. For sick or premature babies who aren't feeding at the breast, "hands-on pumping" is a special way to help be sure you make enough milk. Hands-on pumping involves a combination of both hand expression and the use of an electrical pump. Pumps can be purchased in many locations. Pumps can also be rented from some pharmacies and medical equipment stores. Check with your hospital to determine where you can purchase o r rent your pump. Working and Talk to your partner or child-care provider about timing bottle feedings while you are a way. It s best if your baby is ready to breastfeed when you return from work. Express milk during breaks. This helps protect your milk supply. It also helps prevent e ngorged or leaking breasts. Arrange to breastfeed at lunch if your assistant child care teacher is nearby. Breastfeed before you leave for work and soon after you return home. Your partner may be able to make dinner while you feed the baby. Breastfeed at night and on weekends. Your baby can have bottled breastmilk during the [id number] [employer]. [address] [place] [address], [place] [address]. All righ ts reserved. This information is not intended as a substitute for professional medical care. Always follow your healthcare professional's instructions. Storing Expressed Milk You can express your milk and store it in clean containers. Your partner or a sitter can fe ed it to the baby. This way, your baby gets the benefits of your milk even when you can t be there at feeding time. Type of storage Storage times Room temperature At room temperature (up to 85F or 29C) Tip: Keep the container clean, covered, and cool. 3 to 4 hours is best; 6 to 8 hours is acceptable (under very clean conditions) Refrigerator In a refrigerator (39F or 4C) Tip: Place milk in the back of the main section of the refrigerator. 72 hours is best; 5 to 8 days is acceptable (under very clean conditions) Freezer In a freezer (0F or -17C) Tip: Store milk toward the back of the freezer. 6 months is best; 12 months is acceptabl e Guidelines for milk storage Always use a clean container to collect and store milk. Never pour warm expressed milk into a bottle with cold milk. And be sure to label and date each bottle or bag of milk. To store milk safely, see the chart above. Source: Academy of Medicine Protocol Committee. (Original protocol January 2004 ; revision #04 January 2010.) Warming stored milk Thaw frozen milk in the refrigerator or in a bowl of warm water. Before using milk that has been in the refrigerator, it is a good idea to warm it. For your baby s safety: Use the oldest milk first Warm a container of milk by putting it in a bowl of warm (not hot) water for a few minut es, or use a bottle warmer set on low. Gently swirl the milk to mix it. Thenplace a few drops on your wrist. The milk should be near room temperature. Do notput the milk in a microwave. This could create pockets of hot liquid that can bu rn the baby s mouth. [id number] [employer]. [address] [place] [address], [place] [address]. All righ ts reserved. This information is not intended as a substitute for professional medical care. Always follow your healthcare professional's instructions. Breast Care After A few days after your baby s , your breasts will swell with milk. They are likely to feel tender and heavy. This is normal. To help prevent breast soreness and control irritati on, follow these tips: Moist heat, like a shower, helps to promote the release of breastmilk. Coping with swelling Here are tips to cope with swelling: Use cold compresses or an ice pack to help reduce the ache or pain. Breastfeed often to keep milk from clogging your breast ducts. If your nipples are flat from breast swelling, hand express some milk. Squeeze out a few drops of milk by massaging and compressing your breasts. If you have swelling with pain or fever, call your healthcare provider. Preventing sore nipples Here are tips to prevent sore nipples: Make sure baby latches on to your breast correctly. The baby s mouth should be opened very wideand your entire areola should be in the baby's mouth. You can let milk dry on your nipples. This dried milk can protect the skin on your nippl e. Do not use alcohol, soap, or scented cleansers on your breasts. These can cause the nipp les to dry and crack. Do not wear nursing pads that are lined with plastic. They hold in moisture and can caus e chapping. If you have cracked or bleeding nipples, consult your healthcare provider or a csm consultant. He or she will make sure that your baby's latch is correct and may suggest topi van treatment, like pure lanolin. Choosing a good bra Wearing the right-sized bra is especially important now. If a bra is too tight, it may caus e a duct in your breast to clog and become irritated. If possible, have a salesperson help f it you for a new bra. Look for one that s 100% cotton and comfortable. Also, choose a bra with wide straps that won t dig into your back and shoulders. If you re , f ind a nursing bra that allows you to uncoverone breast at a time. If you are not Here are tips to avoid discomfort: Avoid stimulation of nipples Wear a tight-fitting bra Apply cold compresses or ice packs for discomfort Call your healthcare provider Call your healthcare provider right away if you have any of the following: A fever or chills Extreme tiredness and body aches, as if you have the flu Burning or pain inone or both breasts Red streaks on a breast Hard or lumpy spots in one or both breasts A feeling of warmth or heat in one or both breasts Breasts so swollen your baby cannot latch on to the nipples Nipples that are cracked or bleeding Low milk supply or your milk does not flow freely [id number] [employer]. [address] [place] [address]. All righ ts reserved. This information is [...] cephalexin | Take 1 capsule by | 28 | 0 | 10/16/20 | | | (KEFLEX) 500 mg | mouth 4 times daily | capsule | | 16 | 6 | | capsuleIndications: | for 7 days. | | | | | | NON-PURULENT SKIN | Indications: | | | | | | AND SOFT TISSUE | Non-Purulent Skin | | | | | | INFECTION | and Soft Tissue | | | | | | | Infection | | | | | + + + +---------+ + + | docusate sodium | Take 100 mg by mouth | 60 | 1 | 10/16/20 | | | (COLACE) 100 MG | 2 times daily. | capsule | | 16 | 7 | | capsule | | | | | | + + + +---------+ + + | ibuprofen | Take 1 tablet by | 40 | 0 | 10/16/20 | | | (ADVIL,MOTRIN) 600 | mouth every 6 hours | tablet | | 16 | 7 | | MG tablet | as needed for Pain. | | | | | + + + +---------+ + + | | Take 1 tablet by | 40 | 0 | 10/16/20 | | | oxyCODONE-acetaminop | mouth every 6 hours | tablet | | 16 | 7 | | hen (PERCOCET) | as needed for Pain. | | | | | | 7.5-325 mg per | | | | | | | tablet | | | | | | + + + +---------+ + + | | Take 1 tablet by | | 0 | | | | Nniixefv-Ewp-Hp-FA | mouth Daily. | | | | 7 | | (PRE-CHIDI PO) | | | | | | + + + +---------+ + + documented as of this encounter Progress Notes Jt Villela RN - 10/16/2016 12:49 PM PSTRedness at incision site has not extended past the marked area. No firmness or heat noted at the incision site. Halima Martel DO - 10/16/2016 9:47 AM PSTObstetrics Postop Progress Note Subjective: Patient doing well without any concerns Pain: Well controlled with q3h narcotics, soreness at incision. Feels swolen : well with good latch, nipples a little sore Voiding: Without difficulty Bowel function: Passing flatus and tolerating diet Lochia: Minimal Ambulating: Without any difficulty or dizziness Maternal VS's: BP: 118/71 mmHg Pulse: 92 Temp: 36 C (96.8 F) Exam: General: No acute distress, baby at bedside CV: RRR Lungs: CTA b/l Abdomen: Soft, non-tender, non-distended. Edema in pannus above incision. Incision: Clean, dry. Striae with edema just above incision. Minimal erythema surrounding incision. Erythema predominately within the striae. Robe in place. Fundus: Firm, below the umbilicus Extremities: No calf tenderness, 1+ edema bilaterally Assesment/Plan: Post op Day #2 s/p RLTCS. -plan for d/c home today with f/u mid-week for incision check and staple removal -Rh positive -discharge teaching done Early cellulitis --keflex 500mg q6h x 7 days with incision check in 3 days --precautions discussed -robe out at wound check Electronically Signed by: Halima Flanagan DO 10/16/2016 9:47 Halima Martel DO - 10/15/2016 8:19 AM PST . Obstetrics Postop Progress Note Subjective: Soreness at incision. Cough and nasal congestion. Pain: Taking pain meds regularly : well with good latch, seeing colostrum Voiding: Voiding without issue Bowel function: Passing flatus and tolerating diet Lochia: Minimal Ambulating: Without any difficulty or dizziness Maternal VS's: BP: 112/73 mmHg (107-131/60-71) Pulse: 99(80-107) Temp: 36 C (96.8 F) O2: 96% on RA Exam: General: No acute distress, baby at bedside CV: mildly course sounding with deep inspiration, no wheeze Lungs: CTA b/l Abdomen: Soft, non-tender, non-distended Incision: Clean, dry, intact without signs of infection. Terril intact. Fundus: Firm, below the umbilicus Extremities: No calf tenderness,trace edema Labs: Lab Results Component Value Date WBC 7.0 10/15/2016 HGB 10.8* 10/15/2016 HCT 31.5* 10/15/2016 MCV 91.9 10/15/2016 PLT 134* 10/15/2016 Assesment/Plan: Post op Day #1 s/p section recovering appropriately -voiding without difficulty -encourage ambulation -encourage -routine care, appropriate CBC post-op URI -robitussin constantine guthrie Electronically Signed by: Halima Flanagan DO 10/15/2016 8:19 docu mented in this encounter Plan of Treatment +--------+ + + + + | Date | Type | Specialty | Care Team | Description | +--------+ + + + + | 03/17/ | Virtual | Neurosurgery | Zuhair Flores | | 2019 | Office | | MD Kiki Yee W | | | | Visit | | [place] [address] | | | | | | [place] | | | | | | [address] | | | | | | | | +--------+ + + + + | 03/18/ | Office | Physical Medicine | Jovana Dawson | | 2019 | Visit | and Rehabilitation | MELANY Man W | | | | | | [facility] | | | | | | [address] [place] | | | | | | [address] | | | | | | | | +--------+ + + + + | 04/01/ | Appointment | Oncology | Deny Mcmanus, | | | 2019 | | | [address] | | | | | | [place] | | | | | | [place] [address] | | | | | | [phone] | | | | | | | | +--------+ + + + + | 04/08/ | Procedure | Physical Medicine | Leonard De Leon | | | 2019 | visit | and Rehabilitation | MD Audelia [address] | | | | | | [place] | | | | | | [address] | | | | | | | | +--------+ + + + + | 04/30/ | Office | Cardiology | Shad Saavedra, | | | 2019 | Visit | | [address] | | | | | | [place] | | | | | | [place] [address] | | | | | | [phone] | | | | | | | | +--------+ + + + + + + +--------+ + + | Name | Type | Priori | Associated Diagnoses | Order Schedule | | | | ty | | | + + +--------+ + + | Amb referral to | Outpatient | Routin | Previous | 1 Occurrences | | | Referral | e | delivery affecting | starting 10/16/2016 | | | | | | until 10/14/2017 | + + +--------+ + + | Ambulatory referral | Outpatient | Routin | Previous | 1 Occurrences | | to | Referral | e | delivery affecting | starting 10/16/2016 | | | | | | until 10/14/2017 | + + +--------+ + + documented as of this encounter Procedures + +--------+ + + + | Procedure Name | Priori | Date/Time | Associated Diagnosis | Comments | | | ty | | | | + +--------+ + + + | CBC NO DIFFERENTIAL | Routin | 10/15/2016 | | Results for this | | | e | 6:32 AM | | procedure are in the | | | | PST | | results section. | + +--------+ + + + | SECTION | | 10/14/2016 | Encounter for | | | | | 7:28 AM | maternal care for | | | | | PST | low transverse scar | | | | | | from previous | | | | | | delivery | | + +--------+ + + + | CBC NO DIFFERENTIAL | Routin | 10/14/2016 | | Results for this | | | e | 6:21 AM | | procedure are in the | | | | PST | | results section. | + +--------+ + + + | TYPE AND SCREEN | Routin | 10/14/2016 | | Results for this | | | e | 6:21 AM | | procedure are in the | | | | PST | | results section. | + +--------+ + + + | LABS - EXTERNAL SCAN | | 09/23/2016 | | Results for this | | | | 12:00 AM | | procedure are in the | | | | PST | | results section. | + +--------+ + + + documented in this encounter Results CBC no Differential (10/15/2016 6:32 AM PST) + + + + + + | Component | Value | Ref Range | Performed | Pathologist | | | | | At | Signature | + + + + + + | WBC | 7.0 | 4.0 - 11.0 K/uL | [facility] | | | | [facility] | | [facility] | | + + + + + + | RBC | 3.43 (L) | 3.70 - 5.20 | [facility] | | | | | M/uL | [facility] | | | | | | [facility] | | + + + + + + | Hemoglobin | 10.8 (L) | 11.5 - 16.0 | [facility] | | | | | g/dL | [facility] | | | | | | [facility] | | + + + + + + | Hematocrit | 31.5 (L) | 34.0 - 47.0 % | [facility] | | | | | [facility] | [facility] | [facility] | | | | | [facility] | | | | | | [facility] | | + + + + + + | MCV | 91.9 | 83.0 - 101.0 fL | [facility] | | | | | [facility] | | [facility] | [facility] | | | | | [facility] - | | | | | | LAB[facility]ATORY | | + + + + + + | MCH | 31.4 | 28.0 - 35.0 pg | [facility] | | | | | | [facility] | | | | | | [facility] | | | | | [facility] - | | | | | | LAB[facility]ATORY | | + + + + + + | MCHC | 34.2 | 32.0 - 36.0 | [facility] | | | | | g/dL | [facility] | | | | | | [facility] | | | | | | [facility] - | | | | | | LAB[facility]ATORY | | + + + + + + | RDW-CV | 13.6 | <15.0 % | [facility] | | | | | [facility] | | | | | | [facility] | | | | | [facility] - | | | | | | LAB[facility]ATORY | | + + + + + + | Platelet | 134 (L) | 140 - 440 K/uL | [facility] | | | Count | | | [facility] | | | | | | [facility] | | | | | [facility] - | | | | | | LAB[facility]ATORY | | + + + + + + | MPV | 8.3 | fL | [facility] | | | [...] + + + + + | [facility] | [address] | [place] | [phone] | | [facility] | | [address] | | | - LABORATORY | | | | + + + + + Type and Screen (10/14/2016 6:21 AM PST) + + + + + + | Component | Value | Ref Range | Performed | Pathologist | | | | | At | Signature | + + + + + + | ABO | A | | [facility] | | | | | | [facility] [...] | Specimen | + + | Blood specimen | | (specimen) | + + + + + + + | Performing | Address | City/State/Zipcode | Phone Number | | Organization | | | | + + + + + | [facility] | [address] | [place] | | | [facility] | | [address] | | | - BLOOD BANK | | | | + + + + + CBC no Differential (10/14/2016 6:21 AM PST) + + + + + + | Component | Value | Ref Range | Performed | Pathologist | | | | | At | Signature | + + + + + + | WBC | 12.0 (H) | 4.0 - 11.0 K/uL | [facility] | | | | | [facility] | [facility] | [facility] | | | | | [facility] - | | | | | | LAB[facility]ATORY | | + + + + + + | RBC | 3.97 | 3.70 - 5.20 | [facility] | [...] + + + + | Hematocrit | 36.2 | 34.0 - 47.0 % | [facility] | | | | | | [facility] | | | | | | [facility] | | | | | | [facility] - | | | | | | LABORATORY | | + + + + + + | MCV | 91.2 | 83.0 - 101.0 fL | [facility] [...] + + + + | MCHC | 33.9 | 32.0 - 36.0 | [facility] | | | | | g/dL | [facility] | | | | | | [facility] | | | | | | [facility] - | | | | | | LABORATORY | | + + + + + + | RDW-CV | 13.3 | <15.0 % | [facility] | | | | | | [facility] | | | | | | [facility] | | | | | | [facility] - | | | | | | LABORATORY | | + + + + + + | Platelet | 173 | 140 - 440 K/uL | [facility] | | | Count | | | [facility] | | | | | | [facility] | | | | | | [facility] - | | | | | | LABORATORY | | + + + + + + | MPV | 8.3 | fL | [facility] | | | [...] ST. | [address] | [place] | [phone] | | [facility] | | [address] | | | - LABORATORY | | | | + + + + + LABS - EXTERNAL SCAN (09/23/2016 12:00 AM PST) + + + | Narrative | Performed At | + + + | Ordered by an | | | unspecified provider. | | + + + documented in this encounter Visit Diagnoses + + | Diagnosis | + + | Encounter for maternal care for low transverse scar from previous delivery | + + documented in this encounter
--- OUTSIDE RECORDS SUMMARY | ~2020-03-13 | XMS | Encounter Summary ---
Demographics + + + | Address | [address] [place] | | | [place] [address] | + + + | Home Phone | | + + + | Preferred Language | Unknown | + + + | Marital Status | | + + + | Taoist Affiliation | Unknown | + + + | Race | Unknown | + + + | Ethnic Group | Unknown | + + + Author + + + | Author | [facility] | | | and [place] | + + + | Organization | [facility] | | [...] Team Providers + +------+ + | Care Miner Operator Name | Role | Phone | + +------+ + PCP | Unavailable | + +------+ + Encounter Details +--------+ + + + + | Date | Type | Department | Care Team | Description | +--------+ + + + + | 03/05/ | Hospital | [facility] | | | | 1995 | Encounter | [facility] | | | | | | CENTER [address] | | | | | | [place] | | | | | | [address] | | | | | | [phone] | | | +--------+ + + + + Social History + +-------+ +--------+------+ | Tobacco Use | Types | Packs/Day | Years | Date | | | | | Used | | + +-------+ +--------+------+ | Never Assessed | | | | | + +-------+ +--------+------+ + + + | Sex Assigned at [...] | | | Visit | | [address] | | | | | | [place] | | | | | | [address] | | | | | | | | +--------+ + + + + | 03/18/ | Office | Physical Medicine | Jovana Dawson | | | 2019 | Visit | and Rehabilitation | MELANY Man [address] | | | | | | [address] | | | | | | [place] | | | | | | [address] | | | | | | | | +--------+ + + + + | 04/01/ | Appointment | Oncology | Deny Mcmanus, | | | 2019 | | | [address] | | | | | | [place] | | | | | | [place] [address] | | | | | | [phone] | | | | | | | | +--------+ + + + + | 04/08/ | Procedure | Physical Medicine | Leonard De Leon | | | 2019 | visit | and Rehabilitation | MD Audelia [address] | | | | | | [place] | | | | | | [address] | | | | | | | | +--------+ + + + + | 04/30/ | Office | Cardiology | Shad Saavedra, | | | 2019 | Visit | | MD Alan Cruz | | | | | | [place], | | | | | | [place] [address] | | | | | | [phone] | | | | | | | | +--------+ + + + + documented as of this encounter Visit Diagnoses Not on filedocumented in this encounter"
--- OUTSIDE RECORDS SUMMARY | ~2020-03-13 | XMS | Encounter Summary ---
Demographics + + + | Address | [address] | | | [place] [address] | + + + | Home Phone | | + + + | Preferred Language | Unknown | + + + | Marital Status | | + + + | Yazdanism Affiliation | Unknown | + + + | Race | Unknown | + + + | Ethnic Group | Unknown | + + + Author + + + | Author | [facility] | | | and [place] | + + + | Organization | [facility] | | | [...] Team Providers + +------+ + | Care Rehab Department Manager Name | Role | Phone | + +------+ + | Burton Masters MD | PCP | | + +------+ + Reason for Referral Evaluate & Treat (Emergency) + + + + + + + | Status | Reason | Specialty | Diagnoses / | Referred By | Referred To | | | | | Procedures | Contact | Contact | + + + + + + + | Authorized | Specialty | Neurology | Diagnoses | Bon Masters | | | Services | | Right foot | Burton Rizzo, | Neurology | | | Required | | drop | [address] | [address] | | | [address] | [address] | | | | | | [place], | [place], [place] | | | | | | [place] [address] | [address] | | | | | | Phone: | Phone: | | | | | | [phone] | [phone] | | | | | | Fax: | Fax: | | | | | | [phone] | [phone] | + + + + + + + Evaluate & Treat (Routine) + +--------+ + + + + | Status | Reason | Specialty | Diagnoses / | Referred By | Referred To | | | | | Procedures | Contact | Contact | + +--------+ + + + + | Authorized | | Sleep | Diagnoses | [facility], | [facility] | | | | Medicine | Sleep | Burton Rizzo, | [facility] | | | | | problem | MD [address] | Disorder [address] | | | | | caused by | [address] | [address] | | | | | drug (HCC) | [place], | [place], | | | | | | [place] [address] | [place] [address] | | | | | | Phone: | Phone: | | | | | | [phone] | [phone] | | | | | | Fax: | Fax: | | | | | | [phone] | [phone] | + +--------+ + + + + Reason for Visit + + + | Reason | Comments | + + + | Ankle Injury | right ankle/foot DOI | + + + | Apnea | would like referral | + + + Encounter Details +--------+---------+ + + + | Date | Type | Department | Care Team | Description | +--------+---------+ + + + | 01/27/ | Office | [facility] | Burton Masters Matthias, | Chronic bilateral | | 2020 | Visit | [facility] [place] | [address] | low back pain | | | | [address] | [place] | without sciatica | | | | [place] | [address] | (Primary Dx); Sleep | | | | [address] | | problem caused by | | | | [phone] | | drug (HCC); Right | | | | | | foot drop; Peroneal | | | | | | nerve palsy, right | +--------+---------+ + + + Social History [...] + + + | Blood Pressure | 112/94 | 01/28/2020 1:31 PM | | | | | PDT | | + + + + + | Pulse | 88 | 01/28/2020 1:31 PM | | | | | PDT | | + + + + + | Temperature | 36.3 C (97.4 F) | 01/28/2020 1:31 PM | | | | | PDT | | + + + + + | Respiratory Rate | 16 | 01/28/2020 1:31 PM | | | | | PDT | | + + + + + | Oxygen Saturation | 96% | 01/28/2020 1:31 PM | | | | | PDT | | + + + + + | Inhaled Oxygen | - | - | | | Concentration | | | | + + + + + | Weight | 74.8 kg (164 lb 14.5 | 01/28/2020 1:31 PM | | | | oz) | PDT | | + + + + + | Height | - | - | | + + + + + | Body Mass Index | 24.35 | 01/01/2020 11:59 AM | | | | | PST | | + + + + + documented in this encounter Progress Burton Najera MD - 01/28/2020 1:30 PM PDTFormatting of this note might be different f rom the original. Subjective: Patient ID: Ashley Webb is a 35 y.o. female. Chief Complaint Patient presents with Ankle Injury right ankle/foot DOI Apnea would like referral HPI Past Medical History: Diagnosis Date Abdominal pain Abnormal vaginal bleeding Abscess of trunk Anxiety Bipolar disease, chronic ([facility]) Breast lump Chest pain, unspecified Chronic low back pain 04/16/2015 Chronic myeloid leukemia, BCR/ABL-positive, not having achieved remission ([facility]) 9 Cough DDD (degenerative disc disease), lumbar 04/16/2015 Depression Engorgement of breasts associated with childbirth, delivered Fatigue Female pelvic pain Fibromyalgia Flu Generalized anxiety disorder Headache Insomnia Knee pain Lumbar radiculopathy - left lower extremity 04/16/2015 Missed Mucocele of salivary gland Muscle spasm Obesity Palpitations Panic disorder Pulpitis Sciatica Shoulder pain SVT (supraventricular tachycardia) ([facility]) Tachycardia Tobacco use Family History Problem Relation Age of Onset [...] cancer Maternal Aunt Heart disease Maternal Aunt Social History Socioeconomic History Marital status: Spouse name: Not on file Number of children: 3 Years of education: 15 Highest education level: Not on file Occupational History 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 Drug use: Not Currently Types: Marijuana Sexual activity: Yes Partners: Male Social History Narrative Merged History Encounter Review of Systems Constitutional: Negative. HENT: Negative. Eyes: Negative. Respiratory: Negative. Cardiovascular: Negative. Gastrointestinal: Negative. Genitourinary: Negative. Musculoskeletal: Negative. Skin: Negative. Neurological: Negative. Endo/Heme/Allergies: Negative. Psychiatric/Behavioral: Negative. Pt has continued foot drop with dense tib anterior and peronial muscle weakness. Low back pain contiues to be problematic but not likely cause of foot drop. Pt requests sleep study. . Objective: BP (!) 112/94 | Pulse 88 | Temp 36.3 C (97.4 F) (Temporal) | Resp 16 | Wt 74.8 kg ( 164 lb 14.5 oz) | SpO2 96% | No | BMI 24.35 kg/m Physical Exam Constitutional: She is well-developed, well-nourished, and in no distress. HENT: Head: Normocephalic and atraumatic. Eyes: Right eye exhibits no discharge. Left eye exhibits no discharge. Neck: No tracheal deviation present. Cardiovascular: Regular rhythm. Pulmonary/Chest: Effort normal. No respiratory distress. Abdominal: She exhibits no distension. Musculoskeletal: General: No edema. Legs: Neurological: She is alert. Skin: Skin is dry. She is not diaphoretic. Psychiatric: Affect normal. Assessment/Plan: 1. Chronic bilateral low back pain without sciatica Drugs of Abuse, Opiates, Confirm, Urin e 2. 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 Right foot drop [facility] - AMB Referral documented in this encounter Plan of Treatment +--------+ + + + + | Date | Type | Specialty | Care Team | Description | +--------+ + + + + | 03/17/ | Virtual | Neurosurgery | Zuhair Flores | | | 2019 | Office | | MD Joselito [address] | | | | Visit | | [address] | | | | | | [place] | | | | | | [address] | | | | | | | | +--------+ + + + + | 03/18/ | Office | Physical Medicine | Jovana Dawson | | | 2019 | Visit | and Rehabilitation | MELANY Man [address] | | | | | | [address] [facility] [facility] | | | | | | [address] [place] | | | | | | [address] | | | | | | | | +--------+ + + + + | 04/01/ | Appointment | Oncology | Deny Mcmanus, | | 2019 | | | [address] | | | | | | [address] [place], | | | | | | [place] [address] | | | | | | [phone] | | | | | | | | +--------+ + + + + | 04/08/ | Procedure | Physical Medicine | Leonard De Leon | | | 2019 | visit | and Rehabilitation | MD Audelia [address] | | | | | | [place], [place] | | | | | | [address] | | | | | | | | +--------+ + + + + | 04/30/ | Office | Cardiology | Shad Saavedra, | | | 2019 | Visit | | MD Alan Cruz | | | | | | [place], | | | | | | [place] [address] | | | | | | [phone] | | | | | | | | +--------+ + + + + + +------+--------+ + + | Name | Type | Priori | Associated Diagnoses | Order Schedule | | | | ty | | | + +------+--------+ + + | Drugs of Abuse, | Lab | Routin | Chronic bilateral | 1 Occurrences | | Opiates, Confirm, | | e | low back pain | starting 01/28/2020 | | Urine | | | without sciatica | until 01/27/2021 | + +------+--------+ + + + + +--------+ + + | Name | Type | Priori | Associated Diagnoses | Order Schedule | | | | ty | | | + + +--------+ + + | Sleep Medicine, | Outpatient | Routin | Sleep problem | Ordered: 01/28/2020 | | External - AMB | Referral | e | caused by drug (HCC) | | | Referral | | | | | + + +--------+ + + | [facility] Neurology | Outpatient | STAT | Right foot drop | Ordered: 01/28/2020 | | - AMB Referral | Referral | | | | + + +--------+ + + documented as of this encounter Visit Diagnoses + + | Diagnosis | + + | Chronic bilateral low back pain without sciatica - Primary | + + | Sleep problem caused by drug (HCC) Drug induced sleep disorders | + + | Right foot drop Other acquired deformity of ankle and foot | + + | Peroneal nerve palsy, right | + + documented in this encounter"
--- OUTSIDE RECORDS SUMMARY | ~2020-03-13 | XMS | Encounter Summary ---
Demographics + + + | Address | [address] | | | [place] [address] | + + + | Home Phone | | + + + | Preferred Language | Unknown | + + + | Marital Status | | + + + | Amish Affiliation | Unknown | + + + | Race | Unknown | + + + | Ethnic Group | Unknown | + + + Author + + + | Author | [facility] | | | and [place] | + + + | Organization | [facility] | | | and [...] Team Providers + +------+ + | Care Local Announcer Name | Role | Phone | + +------+ + | Burton Masters MD | PCP | | + +------+ + Reason for Visit +--------+ + | Reason | Comments | +--------+ + | Other | | +--------+ + Encounter Details +--------+ + + + + | Date | Type | Department | Care Team | Description | +--------+ + + + + | 01/11/ | Telephone | [facility] | Burton Masters, | Other | | 2019 | | [facility] [place] | [address] | | | | | [address] | [place] | | | | | [place] | [address] | | | | | [address] | | | | | | [phone] | | | +--------+ + + + [...] [place] | | | | | | [address] | | | | | | | | +--------+ + + + + | 03/18/ | Office | Physical Medicine | Jovana Dawson | | | 2019 | Visit | and Rehabilitation | MELANY Man [address] | | | | | | [address] [facility] | | | | | | [address] [place] | | | | | | [address] | | | | | | | | +--------+ + + + + | 04/01/ | Appointment | Oncology | Deny Mcmanus, | | | 2019 | | | [address] | | | | | | [address] [place] | | | | | | [place] [address] | | | | | | [phone] | | | | | | | | +--------+ + + + + | 04/08/ | Procedure | Physical Medicine | Leonard De Leon | | | 2019 | visit | and Rehabilitation | MD Kiki Win | | | | | | [place] | | | | | | [address] | | | | | | | | +--------+ + + + + | 04/30/ | Office | Cardiology | Shad Saavedra, | | | 2019 | Visit | | MD Alan Cruz | | | | | | [place], | | | | | | [place] [address] | | | | | | [phone] | | | | | | | | +--------+ + + + + documented as of this encounter Visit Diagnoses Not on filedocumented in this encounter"
--- OUTSIDE RECORDS SUMMARY | ~2020-03-13 | XMS | Clinical Summary ---
Demographics + + + | Address | [address] | | | [place] [address] | + + + | Home Phone | | + + + | Preferred Language | Unknown | + + + | Marital Status | Single | + + + | Episcopal Affiliation | NON | + + + | Race | White | + + + | Ethnic Group | Not or | + + + Author + + + | Author | [facility] | + + + | Organization | [facility] | + + + | Address | [...] Team Providers + +------+ + | Care Sales Record Clerk Name | Role | Phone | + +------+ + | Burton Masters MD | PCP | | + +------+ + Source Comments [facility] is fully live on both [facility] and [facility] InPatient.[facility] Allergies + + + + + + | Active Allergy | Reactions | Severity | Noted | Comments | | | | | Date | | + + + + + + | Adhesive Tape | Rash | | 01/12/20 | | | | | | 19 | | + + + + + + Medications + + + +---------+------+------+-------+ | Medication | Sig | Dispensed | Refills | Star | End | Statu | | | | | | t | Date | s | | | | | | Date | | | + + + +---------+------+------+-------+ | buPROPion 100 mg | Take 200 mg by mouth | | 0 | | | Activ | | oral tablet | two times daily. | | | | | e | + + + +---------+------+------+-------+ | nicotine 21 mg/24 | Apply 1 patch to | 28 | 3 | 03/0 | | Activ | | hr transdermal patch | skin once daily. | patch | | 1/20 | | e | | 24 hour | | | | 19 | | | + + + +---------+------+------+-------+ +---+ + | | Additional | | | InformationPatient | | | not taking. Reported | | | on 04/29/2019 11:54 | | | AM | +---+ + + + +--------+---+------+---+-------+ | nicotine | Chew 1 gum slowly by | 110 | 3 | 02/2 | | Activ | | polacrilex 4 mg | mouth as | each | | 8/20 | | e | | buccal gum | needed.Chew at least | | | 19 | | | | | 9 pieces of gum | | | | | | | | daily to improve | | | | | | | | chances of quitting. | | | | | | + + +--------+---+------+---+-------+ +---+ + | | Additional | | | InformationPatient | | | not taking. Reported | | | on 04/29/2019 11:54 | | | AM | +---+ + + + +--------+---+------+---+-------+ | ondansetron 8 mg | Take 1 tablet by | 40 | 3 | 02/2 | | Activ | | oral | mouth every twelve | tablet | | 8/20 | | e | | tabletIndications: | hours as needed. | | | 19 | | | | prevention of | Indications: Prevent | | | | | | | chemotherapy-induced | Nausea and Vomiting | | | | | | | nausea and vomiting | from Cancer | | | | | | | | Chemotherapy | | | | | | + + +--------+---+------+---+-------+ | ranitidine 150 mg | Take 1 tablet by | 30 | 5 | 02/2 | | Activ | | oral | mouth once daily. | tablet | | 06/25 | | e | | tabletIndications: | Indications: | | | 19 | | | | heartburn | heartburn | | | | | | + + +--------+---+------+---+-------+ | oxyCODONE | Take 2 tablets by | 20 | 0 | 03/0 | | Activ | | (immediate release) | mouth every four | tablet | | 20 | | e | | 5 mg oral tablet | hours as needed for | | | 19 | | | | | moderate pain. | | | | | | + + +--------+---+------+---+-------+ +---+ + | | Additional | | | InformationPatient | | | taking differently: | | | 10 mg oral EVERY 6 | | | HOURS NEEDED, | | | moderate pain, | | | Reported on 06/10/2019 | | | 12:54 PM | +---+ + + + +--------+----+------+---+-------+ | dasatinib 100 mg | Take 1 tablet by | 30 | 5 | 03/0 | | Activ | | oral | mouth once daily. | tablet | | 11/25 | | e | | tabletIndications: | Indications: Chronic | | | 19 | | | | chronic phase | Phase Hartman | | | | | | | [place] | Chromosome Positive | | | | | | | chromosome (+) CML | Chronic Myelocytic | | | | | | | | Leukemia | | | | | | + + +--------+----+------+---+-------+ | ALPRAZolam 0.5 mg | Take 0.5-1 mg by | | 0 | 06/0 | | Activ | | oral tablet | mouth three times | | | 01/23 | | e | | | daily as needed. | | | 19 | | | + + +--------+----+------+---+-------+ | | Take 2 tablets by | | 0 | 06/2 | | Activ | | diphenoxylate-atropi | mouth as needed. | | | 11/25 | | e | | ne 2.5-0.025 mg oral | | | | 19 | | | | tablet | | | | | | | + + +--------+----+------+---+-------+ | lamoTRIgine 25 mg | Take 25 mg by mouth | | 0 | 05/0 | | Activ | | oral tablet | once daily as | | | 01/23 | | e | | | needed. | | | 19 | | | + + +--------+----+------+---+-------+ | loperamide 2 mg | Take 2 mg by mouth | | 0 | 06 | | Activ | | oral capsule | as needed. | | | 06/25 | | e | | | | | | 19 | | | + + +--------+----+------+---+-------+ | imatinib 400 mg | Take 1 tablet by | 30 | 11 | 04/07 | | Activ | | oral | mouth once daily. | tablet | | 02/23 | | e | | tabletIndications: | Indications: Chronic | | | 19 | | | | chronic phase | Phase [place]man | | | | | | | [place] | Chromosome Positive | | | | | | | chromosome (+) CML | Chronic Myelocytic | | | | | | | | Leukemia | | | | | | + + +--------+----+------+---+-------+ Active Problems + + + | Problem | Noted Date | + + + | Chronic myeloid leukemia (CML), BCR/ABL-positive | 01/03/2019 | + + + | Nausea | 01/03/2019 | + + + | Leukocytosis | 01/02/2019 | + + + | Alcohol use | 01/02/2019 | + + + | Tobacco abuse | 01/02/2019 | + + + | Depression | 05/16/2018 | + + + | Chronic low back pain | 04/16/2015 | + + + Encounters +--------+ + + + + | Date | Type | Specialty | Care Team | Description | +--------+ + + + + | 12/18/ | Telephone | Hematology & | Jalen Moore, | Contrast Allergy | | 2020 | | Oncology | MD | Clarification (on | | | | | | instructions on how | | | | | | to take imabtinib.) | +--------+ + + + + from Last 3 Months Immunizations + + + + | Name | Administration Dates | Next Due | + + + + | DT-Peds | 06/13/1991, 01/05/1989, 1987, | | | | 1987, 1987 | | + + + + | HepA-Adult | 12/19/2012, 11/19/2012 | | + + + + | HepB-Adult | 11/19/2012 | | + + + + | HepB-Peds | 08/30/1996 | | + + + + | Hib-PRP-T | 08/02/1990 | | + + + + | Influenza, | 08/16/2014 | | | injectable, | | | | quadrivalent, | | | | preservative free | | | | (IIV4) | | | + + + + | Influenza, seasonal, | 12/19/2012, 10/22/2012 | | | injectable, | | | | preservative free | | | | (IIV3) | | | + + + + | MMR | 03/27/1998, 04/21/1988 | | + + + + | PCV13 | 01/16/2019 | | + + + + | Pneumococcal 23 | 03/13/2019 | | + + + + | Polio-Inject | 06/13/1991, 01/05/1989, 1987, | | | | 1987 | | + + + + | AOBuea-YAE-BC | 10/22/2012, 10/02/2012 | | + + + + | Tdap | 07/29/2016, 10/02/2012 | | + + + + | influenza, | 08/20/2018 | | | unspecified | | | | formulation | | | + + + + Family History + + +------+ + | Medical History | Relation | Name | Comments | + + +------+ + | Glaucoma | Father | | | + + +------+ + | Gout | Father | | | + + +------+ + | Hyperlipidemia | Father | | | + + +------+ + | Hypertension | Father | | | + + +------+ + | Coronary Artery | Mother | | | | Disease | | | | + + +------+ + | Depression | Mother | | | + + +------+ + | Multiple Sclerosis | Mother | | | + + +------+ + + +------+--------+ + | Relation | Name | Status | Comments | + +------+--------+ + | Father | | Alive | | + +------+--------+ + | Mother | | Alive | | + +------+--------+ + Social History + +-------+ +--------+------+ | [...] recent travel history available. | + + Last Filed Vital Signs + + + + + | Vital Sign | Reading | Time Taken | Comments | + + + + + | Blood Pressure | 150/101 | 06/10/2019 12:49 PM | | | | | PDT | | + + + + + | Pulse | 83 | 06/10/2019 12:49 PM | | | | | PDT | | + + + + + | Temperature | 37 C (98.6 F) | 06/10/2019 12:49 PM | | | | | PDT | | + + + + + | Respiratory Rate | 16 | 06/10/2019 12:49 PM | | | | | PDT | | + + + + + | Oxygen Saturation | 100% | 06/10/2019 12:49 PM | | | | | PDT | | + + + + + | Inhaled Oxygen | - | - | | | Concentration | | | | + + + + + | Weight | 78 kg (172 lb) | 06/10/2019 12:49 PM | | | | | PDT | | + + + + + | Height | 172.2 cm (5' 7.8") | 04/29/2019 11:52 AM | | | | | PDT | | + + + + + | Body Mass Index | 26.31 | 04/29/2019 11:52 AM | | | | | PDT | | + + + + + Plan of Treatment +--------+---------+ + + + [...] [address] | | | | | | [place], [place] | | | | | | [address] | | | | | | [phone] | | | | | | | | +--------+---------+ + + + + + + + + | Health Maintenance | Due Date | Last Done | Comments | + + + + + | Influenza (Flu) | | 08/20/2018, 08/16/2014, | | | vaccination (#1) | 9 | 12/19/2012, Additional history | | | | | exists | | + + + + + | Pneumococcal | | 03/13/2019, 01/16/2019 | | | vaccination (3 of 3 | 4 | | | | - PPSV23) | | | | + + + + + Results Not on filefrom Last 3 Months Insurance + +--------+ +--------+-------+---------+--------+ | Payer | Benefi | Subscriber | Effect | Phone | Address | Type | | | t Plan | ID | rigoberto | | | | | | / | | Dates | | | | | | Group | | | | | | + +--------+ +--------+-------+---------+--------+ | [employer] MEDICAID | [employer] | xxxxxxxx | | | | Medica | | | [place] | | [id number] | | | id | | | [place] | | esent | | | | + +--------+ +--------+-------+---------+--------+ + +--------+ +--------+ + + | Guarantor Name | Accoun | Relation to | Date | Phone | Billing Address | | | t Type | Patient | of | | | | | | | | | | + +--------+ +--------+ + + | Ashley Webb | Person | Self [birth year] | [address] | | | al/Fam | | 1985 | [phone] | [place] [address][birth year] | | | [place] | | | 5 (Home) | | + +--------+ +--------+ + + Advance Directives + + + + + | Code Status | Date | Date | Comments | | | Activated | Inactivated | | + + + + + | Full Code | 01/02/2019 | 01/04/2019 | | | | 5:16 AM | 8:14 PM | | + + + + +
--- OUTSIDE RECORDS SUMMARY | ~2020-03-13 | XMS | Encounter Summary ---
Demographics + + + | Address | [address] | | | [place] [address] | + + + | Home Phone | | + + + | Preferred Language | Unknown | + + + | Marital Status | Single | + + + | Hindu Affiliation | NON | + + + | Race | White | + + + | Ethnic Group | Not or | + + + Author + + + | Author | [facility] | + + + | Organization | [facility] | + + + | [...] Team Providers + +------+ + | Care Automobile Designer Name | Role | Phone | + +------+ + | Burton Masters MD | PCP | | + +------+ + Encounter Details +--------+ + + + + | Date | Type | Department | Care Team | Description | +--------+ + + + + | 04/29/ | Pharmacy | Pharmacy @ [facility] | | | | 2019 | Visit | [address] | | | | | | Myron Arce Mailcode: | | | | | | [facility] | | | | | | and Healing, | | | | | | Building 2 | | | | | | [place], [place] | | | | | | [address] | | | +--------+ + + + [...] Hematology | Jalen Moore, | | | 2020 | Visit | Malignancy | [address] | | | | | | [place], [place] | | | | | | [address] | | | | | | [phone] | | | | | | | | +--------+---------+ + + + documented as of this encounter Visit Diagnoses Not on filedocumented in this encounter"
--- OUTSIDE RECORDS SUMMARY | ~2020-03-13 | XMS | Encounter Summary ---
Demographics + + + | Address | [address] | | | [place] [address] | + + + | Home Phone | | + + + | Preferred Language | Unknown | + + + | Marital Status | | + + + | Anabaptist Affiliation | Unknown | + + + | Race | Unknown | + + + | Ethnic Group | Unknown | + + + Author + + + | Author | [facility] | | | and [place] | + + + | Organization | [facility] | | | [...] Team Providers + +------+ + | Care Seismograph Shooter Name | Role | Phone | + [...] | +--------+ + + + + | 05/27/ | Telephone | [facility] | Deny Mcmanus, | Lab Results | | 2019 | | [facility] | [address] | | | | | [facility] [address] | [place], | | | | | [address] [place] | [place] [address] | | | | | [place] [address] | [phone] | | | | | [phone] | | | +--------+ + + + [...] | | | Visit | | [address] | | | | | | [place] | | | | | | [address] | | | | | | | | +--------+ + + + + | 03/18/ | Office | Physical Medicine | Jovana Dawson | | | 2019 | Visit | and Rehabilitation | MELANY Man [address] | | | | | | [address] | | | | | | [address] [place] | | | | | | [address] | | | | | | | | +--------+ + + + + | 04/01/ | Appointment | Oncology | Deny Mcmanus, | | | 2019 | | | MD [address] | | | | | | [address] [place] | | | | | | [place] [address] | | | | | | [phone] | | | | | | | | +--------+ + + + + | 04/08/ | Procedure | Physical Medicine | Leonard De Leon | | | 2019 | visit | and Rehabilitation | MD Kiki Win | | | | | | [place] | | | | | | [address] | | | | | | | | +--------+ + + + + | 04/30/ | Office | Cardiology | Shad Saavedra, | | | 2019 | Visit | | MD Alan Cruz | | | | | | [place] | | | | | | [place] [address] | | | | | | [phone] | | | | | | | | +--------+ + + + + documented as of this encounter Visit Diagnoses Not on filedocumented in this encounter"
--- OUTSIDE RECORDS SUMMARY | ~2020-03-13 | XMS | Encounter Summary ---
Demographics + + + | Address | [address] | | | [place] [address] | + + + | Home Phone | | + + + | Preferred Language | Unknown | + + + | Marital Status | | + + + | Mosque Affiliation | Unknown | + + + | Race | Unknown | + + + | Ethnic Group | Unknown | + + + Author + + + | Author | [facility] | | | and [place] | + + + | Organization | [facility] | | | [...] Team Providers + +------+ + | Care Milk Receiver Name | Role | Phone | + +------+ + | Burton Masters MD | PCP | | + +------+ + Reason for Visit + + + | Reason | Comments | + + + | Medication Refill | | + + + | Shoulder Pain | right | + + + Encounter Details +--------+---------+ + + + | Date | Type | Department | Care Team | Description | +--------+---------+ + + + | 06/11/ | Office | [facility] | Burton Masters, | Bursitis of right | | 2019 | Visit | [facility] | [address] | shoulder (Primary | | | | [address] | [place] | Dx); Depression, | | | | [place], [place] | [address] | unspecified | | | | [address] | | depression type | | | | [phone] | | | +--------+---------+ + + + [...] + + + | Blood Pressure | 122/72 | 06/11/2019 11:15 AM | | | | | PDT | | + + + + + | Pulse | 94 | 06/11/2019 11:15 AM | | | | | PDT | | + + + + + | Temperature | 37.2 C (98.9 F) | 06/11/2019 11:15 AM | | | | | PDT | | + + + + + | Respiratory Rate | 18 | 06/11/2019 11:15 AM | | | | | PDT | | + + + + + | Oxygen Saturation | 99% | 06/11/2019 11:15 AM | | | | | PDT | | + + + + + | Inhaled Oxygen | - | - | | | Concentration | | | | + + + + + | Weight | 78.5 kg (173 lb 1 | 06/11/2019 11:15 AM | | | | oz) | PDT | | + + + + + | Height | - | - | | + + + + + | Body Mass Index | 26.31 | 04/26/2019 11:45 AM | | | | | PDT | | + + + + + documented in this encounter Progress Notes Burton Masters MD - 06/11/2019 11:00 AM PDTFormatting of this note might be different f rom the original. Subjective: Patient ID: Ashley Webb is a 34 y.o. female. Chief Complaint Patient presents with Medication Refill Shoulder Pain right Shoulder Pain The right shoulder is affected. The incident occurred more than 1 week ago. There was no in jury mechanism. The quality of the pain is described as aching. The pain does not radiate. T he pain is at a severity of 4/10. The pain is moderate (pain to palpate posterior deltoid. ). Pertinent negatives include no chest pain, muscle weakness, numbness or tingling. The sym ptoms are aggravated by palpation. She has tried acetaminophen and NSAIDs for the symptoms. The treatment provided no relief. Mental Health Problem The primary symptoms include dysphoric mood and somatic symptoms. The current episode start ed more than 1 month ago. The onset of the illness is precipitated by a stressful event (cancer diagnosis). The degre e of incapacity that she is experiencing as a consequence of her illness is moderate. Sequel ae of the illness include harmed interpersonal relations. Additional symptoms of the illness include insomnia. 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 Drug use: Yes Types: Marijuana Sexual activity: Yes Social History Narrative Merged History Encounter Review of Systems Constitutional: Negative. HENT: Negative. Eyes: Negative. Respiratory: Negative. Cardiovascular: Negative. Negative for chest pain. Gastrointestinal: Negative. Genitourinary: Negative. Musculoskeletal: Positive for joint pain. Skin: Negative. Neurological: Negative. Negative for tingling and numbness. Endo/Heme/Allergies: Negative. Psychiatric/Behavioral: Positive for depression and dysphoric mood. The patient has insomni a. . Objective: BP 122/72 | Pulse 94 | Temp 37.2 C (98.9 F) (Temporal) | Resp 18 | Wt 78.5 kg (173 lb 1 oz) | SpO2 99% | ? No | BMI 26.31 kg/m Physical Exam Constitutional: She is well-developed, well-nourished, and in no distress. HENT: Head: Normocephalic and atraumatic. Eyes: Right eye exhibits no discharge. Left eye exhibits no discharge. Neck: No tracheal deviation present. Cardiovascular: Regular rhythm. Pulmonary/Chest: Effort normal. No respiratory distress. Abdominal: She exhibits no distension. Musculoskeletal: She exhibits no edema. Neurological: She is alert. Skin: Skin is dry. She is not diaphoretic. Psychiatric: Affect normal. Tearful Assessment/Plan: 1. Bursitis of right shoulder 2. Depression, unspecified depression type Requested Prescriptions Signed Prescriptions Disp Refills oxyCODONE (ROXICODONE) 5 mg tablet 90 tablet 0 Sig: Take 1 tablet by mouth every 8 hours as needed for Pain. prochlorperazine 10 mg tablet 30 tablet 0 Sig: Take 1 tablet by mouth every 8 hours as needed. ketorolac (TORADOL) 10 MG tablet 20 tablet 0 Sig: Take 1 tablet by mouth every 6 hours as needed for up to 5 days. nortriptyline (PAMELOR) 25 mg capsule 30 capsule 0 Sig: Take 1 capsule by mouth nightly. New Prescriptions KETOROLAC (TORADOL) 10 MG TABLET Take 1 tablet by mouth every 6 hours as needed for up to 5 days. NORTRIPTYLINE (PAMELOR) 25 MG CAPSULE Take 1 capsule by mouth nightly. documented in this encounter Plan of Treatment +--------+ + + + + | Date | Type | Specialty | Care Team | Description | +--------+ + + + + | 03/17/ | Virtual | Neurosurgery | Zuhair Flores | | | 2019 | Office | | MD [address] | | | | Visit | | [place] [address] | | | | | | [place] | | | | | | [phone] | | | | | | | | +--------+ + + + + | 03/18/ | Office | Physical Medicine | Jovana Dawson | | | 2019 | Visit | and Rehabilitation | MELANY Man [address] | | | | | | [address] | | | | | | [address] [place] | | | | | | [address] | | | | | | | | +--------+ + + + + | 04/01/ | Appointment | Oncology | Deny Mcmanus, | | | 2019 | | | [address] | | | | | | [place] | | | | | | [place] [address] | | | | | | [phone] | | | | | | | | +--------+ + + + + | 04/08/ | Procedure | Physical Medicine | Leonard De Leon | | | 2019 | visit | and Rehabilitation | MD Audelia [address] | | | | | | [place] | | | | | | [address] | | | | | | | | +--------+ + + + + | 04/30/ | Office | Cardiology | Shad Saavedra, | | | 2019 | Visit | | [address] | | | | | | [place], | | | | | | [place] [address] | | | | | | [phone] | | | | | | | | +--------+ + + + + documented as of this encounter Visit Diagnoses + + | Diagnosis | + + | Bursitis of right shoulder - Primary Disorders of bursae and tendons in shoulder | | region, unspecified | + + | Depression, unspecified depression type | + + documented in this encounter"
--- OUTSIDE RECORDS SUMMARY | ~2020-03-13 | XMS | Encounter Summary ---
Demographics + + + | Address | [address] | | | [place] [address] | + + + | Home Phone | | + + + | Preferred Language | Unknown | + + + | Marital Status | Single | + + + | Yarsani Affiliation | NON | + + + | Race | White | + + + | Ethnic Group | Not or | + + + Author + + + | Author | [facility] | + + + | Organization | [facility] | + + + | Address [...] Providers + +------+ + | Care Senior Administrative Support Name | Role | Phone | + +------+ + | Burton Masters MD | PCP | | + +------+ + Encounter Details +--------+ + + + + | Date | Type | Department | Care Team | Description | +--------+ + + + + | 03/05/ | Outside | UNKNOWN DEPARTMENT | Other, Faculty | | | 2019 | Records | [address] | [phone] | | | | | [address] | | | | | | [place], [place] | | | | | | [address] | | | +--------+ + + + [...] Arce | | | | | | [place], [place] | | | | | | [address] | | | | | | [phone] | | | | | | | | +--------+---------+ + + + documented as of this encounter Procedures + +--------+ + + + | Procedure Name | Priori | Date/Time | Associated Diagnosis | Comments | | | ty | | | | + +--------+ + + + | OUTSIDE RADIOLOGY - | | 03/05/2019 | | Results for this | | X-RAY | | 12:00 AM | | procedure are in the | | | | PDT | | results section. | + +--------+ + + + documented in this encounter Results OUTSIDE RADIOLOGY - X-RAY (03/05/2019 12:00 AM PDT) + + + | Narrative | Performed At | + + + | | | + + + documented in this encounter Visit Diagnoses Not on filedocumented in this encounter"
--- OUTSIDE RECORDS SUMMARY | ~2020-03-13 | XMS | Encounter Summary ---
Demographics + + + | Address | [address] | | | [place] [address] | + + + | Home Phone | | + + + | Preferred Language | Unknown | + + + | Marital Status | | + + + | Hindu Affiliation | Unknown | + + + | Race | Unknown | + + + | Ethnic Group | Unknown | + + + Author + + + | Author | [facility] | | | and [place] | + + + | Organization | [facility] | | | and [...] Team Providers + +------+ + | Care Director Learning Services Name | Role | Phone | + +------+ + | No, Physician | PCP | Unavailable | + +------+ + Encounter Details +--------+ + + + + | Date | Type | Department | Care Team | Description | +--------+ + + + + | 08/30/ | Hospital | [facility] | Dorota Beal | Encounter for | | 2016 | Encounter | [address] | DO [place] [address] | supervision of | | | | [place] | [place] | normal , | | | | [address] | [place] [address] | antepartum, | | | | [phone] | [phone] | unspecified | | | | | | | [...] + + documented as of this encounter Medications at Time of Discharge + + + +---------+ + + | Medication | Sig | Dispensed | Refills | Start | End Date | | | | | | Date | | + + + +---------+ + + | Acetaminophen | TABS Take 2 tablets | | 0 | 07/20/20 | | | (TYLENOL EXTRA | by mouth daily | | | 12 | 6 | | STRENGTH PO) | | | | | | + + + +---------+ + + | buPROPion | Take 150 mg by mouth | | 0 | 07/20/20 | | | (BUDEPRION SR) 150 | 2 times daily. | | | 12 | 6 | | mg 12 hr tablet | | | | | | + + + +---------+ + + | | Take by mouth. | | 0 | | | | Pubsiba-Umvvaalqv-Sh | | | | | 6 | | tamin D (CALCIUM 500 | | | | | | | PO) | | | | | | + + + +---------+ + + | chlorhexidine | | | 0 | 12/24/19 | | | (PERIDEX) 0.12% | | | | 14 | 6 | | solution | | | | | | + + + +---------+ + + | cholecalciferol | Take 400 Units by | | 0 | | | | (VITAMIN D-3) 400 | mouth Daily. | | | | 6 | | units TABS | | | | | | + + + +---------+ + + | cyclobenzaprine | | | 0 | 04/07/20 | | | (FLEXERIL) 10 mg | | | | 14 | 6 | | tablet | | | | | | + + + +---------+ + + | divalproex | Take 500 mg by mouth | | 0 | 01/29/20 | | | (DEPAKOTE ER) 500 mg | 3 times daily. | | | 11 | 6 | | 24 hr tablet | | | | | | + + + +---------+ + + | gabapentin | | | 0 | 02/08/20 | | | (NEURONTIN) 300 mg | | | | 14 | 6 | | capsule | | | | | | + + + +---------+ + + | | | | 0 | 02/08/20 | | | Hydrocodone-Acetamin | | | | 14 | 6 | | ophen 5-300 MG TABS | | | | | | + + + +---------+ + + | Ibuprofen (ADVIL | CAPS Take 600 mg by | | 0 | 07/20/20 | | | PO) | mouth daily | | | 12 | 6 | + + + +---------+ + + | LORazepam (ATIVAN) | Take 1 tablet 30 | 1 | 0 | 04/25/20 | | | 1 mg | minutes before MRI | tablet | | 14 | 6 | | tabletIndications: | (DO NOT TAKE UNTIL | | | | | | Claustrophobia | INSTRUCTED BY | | | | | | | Radiologist. | | | | | + + + +---------+ + + | naproxen | | | 0 | 02/08/20 | | | (NAPROSYN) 500 mg | | | | 14 | 6 | | tablet | | | | | | + + + +---------+ + + | | Take 1 tablet by | | 0 | | | | Pxxanwhl-Qdp-Ob-FA | mouth Daily. | | | | [...] | | | Visit | | [facility] [address] | | | | | | [place] | | | | | | [address] | | | | | | | | +--------+ + + + + | 03/18/ | Office | Physical Medicine | Jovana Dawson | | | 2019 | Visit | and Rehabilitation | MELANY Man [address] | | | | | | [address] | | | | | | [place] | | | | | | [address] | | | | | | | | +--------+ + + + + | 04/01/ | Appointment | Oncology | Deny Mcmanus, | | | 2019 | | | [address] | | | | | | [place] | | | | | | [place] [address] | | | | | | [phone] | | | | | | | | +--------+ + + + + | 04/08/ | Procedure | Physical Medicine | Leonard De Leon | | | 2019 | visit | and Rehabilitation | MD Audelia [address] | | | | | | [place] | | | | | | [address] | | | | | | | | +--------+ + + + + | 04/30/ | Office | Cardiology | Shad Saavedra, | | | 2019 | Visit | | MD Alan Cruz | | | | | | [place], | | | | | | [place] [address] | | | | | | [phone] | | | | | | | | +--------+ + + + + documented as of this encounter Procedures + +--------+ + + + | Procedure Name | Priori | Date/Time | Associated Diagnosis | Comments | | | ty | | | | + +--------+ + + + | US OB FOLLOW UP | Routin | 08/30/2016 | Encounter for | Results for this | | TRANSABDOMINAL | e | 4:55 PM | supervision of | procedure are in the | | | | PDT | normal , | results section. | | | | | antepartum, | | | | | | unspecified | | | | | | | | + +--------+ + + + documented in this encounter Results US OB Follow Up Transabdominal (08/30/2016 4:55 PM PDT) + + | Specimen | + + | | + + + + ---+ | Narrative | Performed A t | + + ---+ | EXAM: US OB | [facility] | | FOLLOW UP TRANSABDOMINAL and 08/30/2016 4:55 PM HISTORY: Encounter | | | for supervision of normal , antepartum, unspecifiedgravidity. | | | COMPARISON: 06/03/2016 FINDINGS: BPD: 83.5 mm: 33 weeks 4 daysHC: | | | 298.0 mm: 33 weeks 0 daysAC: 293.7 mm: 33 weeks 2 daysFL: 63.7 mm: 32 | | | weeks 6 daysEFW: 2145 g, corresponding to the 61st percentile based | | | on LMP and the 43rdpercentile based on ultrasound. Cephalic index: | | | 81.7(normal range 70.0-86.0)HC/AC ratio: 1.01 (0.96-1.17) Composite | | | estimated gestational age by U/S equals 33 weeks 1 day, | | | correlatingwell with LMP dating of 32 weeks 4 days heart rate: | | | 136 bpm. The cervix is not well seen. The placenta is anterior, | | | without evidence of placenta previa. The fetus is in cephalic | | | presentation. Amniotic fluid index = 11.7 cm Active motion is | | | seen. IMPRESSION - There is a single live intrauterine gestation. | | | There is good correlation between clinical and sonographic dating. | | | Amniotic fluid index = 11.7 cm (median = 14.4 cm at 32 weeks). | | | Dictated and Signed by: Luke Rinaldi MD Electronically signed: | | | 08/31/2016 10:30 AM | | | | | |Composite estimated gestational age by U/S equals 33 weeks 1 day, correlating | | |well with LMP dating of 32 weeks 4 days | | | | | | heart rate: 136 bpm. | | | | | |The cervix is not well seen. | | | | | |The placenta is anterior, without evidence of placenta previa. | | | | | |The fetus is in cephalic presentation. | | | | | |Amniotic fluid index = 11.7 cm | | | | | |Active motion is seen. | | | | | |IMPRESSION - | | | | | |There is a single live intrauterine gestation. | | | | | |There is good correlation between clinical and sonographic dating. | | | | | |Amniotic fluid index = 11.7 cm (median = 14.4 cm at 32 weeks). | | | | | |Dictated and Signed by: Luke Rinaldi MD | | | Electronically signed: 08/31/2016 10:30 AM | | | | | + + ---+ + + | Procedure Note | + + | Ruben, Rad Results In - 08/31/2016 10:34 AM PDT EXAM: US OB FOLLOW UP TRANSABDOMINAL | | and 08/30/2016 4:55 PMHISTORY: Encounter for supervision of normal , | | antepartum, unspecifiedgravidity. COMPARISON: 06/03/2016FINDINGS:BPD: 83.5 mm: 33 weeks | | 4 daysHC: 298.0 mm: 33 weeks 0 daysAC: 293.7 mm: 33 weeks 2 daysFL: 63.7 mm: 32 weeks 6 | | daysEFW: 2145 g, corresponding to the 61st percentile based on LMP and the | | 43rdpercentile based on ultrasound.Cephalic index: 81.7(normal range 70.0-86.0)HC/AC | | ratio: 1.01 (0.96-1.17)Composite estimated gestational age by U/S equals 33 weeks 1 day, | | correlatingwell with LMP dating of 32 weeks 4 daysFetal heart rate: 136 bpm.The cervix | | is not well seen.The placenta is anterior, without evidence of placenta previa. The | | fetus is in cephalic presentation. Amniotic fluid index = 11.7 cmActive motion is | | seen.IMPRESSION -There is a single live intrauterine gestation.There is good correlation | | between clinical and sonographic dating.Amniotic fluid index = 11.7 cm (median = 14.4 | | cm at 32 weeks).Dictated and Signed by: Luke Rinaldi MD Electronically signed: | | 08/31/2016 10:30 AM | |percentile based on ultrasound. | | | |Cephalic index: 81.7(normal range 70.0-86.0) | |HC/AC ratio: 1.01 (0.96-1.17) | | | |Composite estimated gestational age by U/S equals 33 weeks 1 day, correlating | |well with LMP dating of 32 weeks 4 days | | | | heart rate: 136 bpm. | | | |The cervix is not well seen. | | | |The placenta is anterior, without evidence of placenta previa. | | | |The fetus is in cephalic presentation. | | | |Amniotic fluid index = 11.7 cm | | | |Active motion is seen. | | | |IMPRESSION - | | | |There is a single live intrauterine gestation. | | | |There is good correlation between clinical and sonographic dating. | | | |Amniotic fluid index = 11.7 cm (median = 14.4 cm at 32 weeks). | | | |Dictated and Signed by: Luke Rinaldi MD | | Electronically signed: 08/31/2016 10:30 AM | + + + +---------+ + + | Performing | Address | City/State/Zipcode | Phone Number | | Organization | | | | + +---------+ + + | [facility] | | | | + +---------+ + + documented in this encounter Visit Diagnoses + + | Diagnosis | + + | Encounter for supervision of normal , antepartum, unspecified | + + documented in this encounter"
--- OUTSIDE RECORDS SUMMARY | ~2020-03-13 | XMS | Encounter Summary ---
Demographics + + + | Address | [address] [facility] | | | [place] [address] | + + + | Home Phone | | + + + | Preferred Language | Unknown | + + + | Marital Status | | + + + | Mandaeism Affiliation | Unknown | + + + | Race | Unknown | + + + | Ethnic Group | Unknown | + + + Author + + + | Author | [facility] | | | and [place] | + + + | Organization | [facility] | | | [...] Team Providers + +------+ + | Care Pullman Car Clerk Name | Role | Phone | + +------+ + | Burton Masters MD | PCP | | + +------+ + Reason for Visit + + + | Reason | Comments | + + + | Vaginal Bleed | | | | | + + + Encounter Details +--------+ + + + + | Date | Type | Department | Care Team | Description | +--------+ + + + + | 07/07/ | Emergency | [facility] | Brown, Johnemma Haney, | Threatened | | 2017 | | [facility] | MD [address] | miscarriage (Primary | | | | CENTER [address] | [facility] [place] | Dx) | | | | [place], [place] | [place] [address] | | | | | [address] | [phone] | | | | | [phone] | | | +--------+ + + + [...] + + + | Blood Pressure | 132/98 | 07/07/2017 7:56 AM | | | | | PDT | | + + + + + | Pulse | 88 | 07/07/2017 7:56 AM | | | | | PDT | | + + + + + | Temperature | 37.1 C (98.7 F) | 07/07/2017 3:46 AM | | | | | PDT | | + + + + + | Respiratory Rate | 16 | 07/07/2017 5:28 AM | | | | | PDT | | + + + + + | Oxygen Saturation | 97% | 07/07/2017 7:56 AM | | | | | PDT | | + + + + + | Inhaled Oxygen | - | - | | | Concentration | | | | + + + + + | Weight | 127 kg (280 lb) | 07/07/2017 3:46 AM | | | | | PDT | | + + + + + | Height | 175.3 cm (5' 9") | 07/07/2017 3:46 AM | | | | | PDT | | + + + + + | Body Mass Index | 41.35 | 07/07/2017 3:46 AM | | | | | PDT | | + + + + + documented in this encounter Discharge Instructions AttachmentsThe following attachments cannot be sent through Care Everywhere.Possible Miscar riaalfredito (Threatened ) (Indian)Abdominal Pain, Early (Indian)documented in this encounter Medications at Time of Discharge + + + +---------+ + + | Medication | Sig | Dispensed | Refills | Start | End Date | | | | | | Date | | + + + +---------+ + + | | Take 1 tablet by | 60 | 0 | 05/14/20 | | | HYDROcodone-acetamin | mouth every 12 hours | tablet | | 17 | 7 | | ophen (NORCO) 5-325 | as [...] + + + +---------+ + + | varenicline | Take 0.5 mg by mouth | 53 | 0 | 03/15/20 | | | (CHANTIX STARTING | once daily on days | tablet | | 17 | 7 | | MONTH VALERIA) 0.5 MG X | 1-3 and 0.5 mg twice | | | | | | 11 & 1 MG X 42 | daily on days 4-7, | | | | | | tablet | then 1 mg twice | | | | | | | daily. | | | | | + + + +---------+ + + | varenicline | Take 1 tablet by | 60 | 1 | 03/15/20 | | | (CHANTIX) 1 MG | mouth 2 times daily. | tablet | | 17 | 7 | | tablet | | | | | | + + + +---------+ + + documented as of this encounter Plan of Treatment +--------+ + + + + | Date | Type | Specialty | Care Team | Description | +--------+ + + + + | 03/17/ | Virtual | Neurosurgery | Zuhair Flores | | | 2020 | Office | | MD Joselito [address] | | | | Visit | | [facility] [address] | | | | | | [place] | | | | | | [address] | | | | | | | | +--------+ + + + + | 03/18/ | Office | Physical Medicine | Jovana Dawosn | | | 2019 | Visit | and Rehabilitation | MELANY Man [address] | | | | | | [facility] | | | | | | [address] [place] | | | | | | [address] | | | | | | | | +--------+ + + + + | 04/01/ | Appointment | Oncology | Deny Mcmanus, | | | 2019 | | | [address] | | | | | | [address] [place], | | | | | | [place] [address] | | | | | | [phone] | | | | | | | | +--------+ + + + + | 04/08/ | Procedure | Physical Medicine | Leonard De Leon | | 2019 | visit | and Rehabilitation | T, [address] | | | | | | [place], [place] | | | | | | [address] | | | | | | | | +--------+ + + + + | 04/30/ | Office | Cardiology | Shad Saavedra, | | | 2019 | Visit | | [address] | | | | | | [place], | | | | | | [place] [address] | | | | | | [phone] | | | | | | | | +--------+ + + + + + +------+--------+ + + | Name | Type | Priori | Associated Diagnoses | Date/Time | | | | ty | | | + +------+--------+ + + | ED INFORMATION | [facility] | Routin | | 07/07/2017 3:41 AM | | EXCHANGE | | e | | PDT | + +------+--------+ + + documented as of this encounter Procedures + +--------+ + + + | Procedure Name | Priori | Date/Time | Associated Diagnosis | Comments | | | ty | | | | + +--------+ + + + | US OB < 14 WEEKS | STAT | 07/07/2017 | | Results for this | | TWINS WITH | | 8:34 AM | | procedure are in the | | TRANSVAGINAL | | PDT | | results section. | + +--------+ + + + | URINALYSIS WITH | STAT | 07/07/2017 | | Results for this | | MICROSCOPIC WITH | | 4:15 AM | | procedure are in the | | CULTURE IF INDICATED | | PDT | | results section. | + +--------+ + + + | SLIDE REVIEW, | Routin | 07/07/2017 | | Results for this | | PERIPHERAL SMEAR | e | 4:01 AM | | procedure are in the | | | | PDT | | results section. | + +--------+ + + + | CBC WITH | STAT | 07/07/2017 | | Results for this | | DIFFERENTIAL | | 4:01 AM | | procedure are in the | | | | PDT | | results section. | + +--------+ + + + | HCG, SERUM, QUANT | STAT | 07/07/2017 | | Results for this | | | | 4:01 AM | | procedure are in the | | | | PDT | | results section. | + +--------+ + + + | COMPREHENSIVE | STAT | 07/07/2017 | | Results for this | | METABOLIC PANEL | | 4:01 AM | | procedure are in the | | | | PDT | | results section. | + +--------+ + + + | ED INFORMATION | Routin | 07/07/2017 | | | | EXCHANGE | e | 3:41 AM | | | | | | PDT | | | + +--------+ + + + +---+--------+ | | | | | Proced | | | ure | | | Note - | | | Mario, | | | Lab In | | | | | | Hlseve | | | n - | | | 07/07/ | | | 2016 | | | 3:42 | | | AM PDT | | | | | | Format | | | ting | | | of | | | this | | | note | | | might | | | be | | | differ | | | ent | | | from | | | the | | | origin | | | al.MARIO | | | E?NOTI | | | FICATI | | | ON? | | | | | | 7 | | | 03:39? | | | YOANNA | | | , | | | TAYLOR | | | N | | | L?MRN: | | | | | | [id number] | | | [id number] | | | his | | | patien | | | t has | | | regist | | | ered | | | at the | | | | | | Provid | | | ence | | | [facility] | [facility] | Med[facility] | | | l | | | Center | | | | | | Emerge | | | ncy | | | Depart | | | ment | | | For | | | more | | | inform | | | ation | | | visit: | | | | | | https: | | | //secu | | | [email or web address] | | | ecarep | | | [email or web address] | | | m/jake | | | ent/26 | | | [id number] | | | -[id number] | | | [phone] | | | [id number] | | | [id number] | | | [phone] | | | ED | | | Care | | | Guidel | | | inesTh | | | ere | | | are | | | curren | | | tly no | | | ED | | | Care | | | Guidel | | | pedro | | | in | | | [facility] | | | for | | | this | | | patien | | | t. | | | Please | | | check | | | your | | | facili | | | ty's | | | medica | | | l | | | record | | | s | | | system | | | .Recen | | | t | | | Emerge | | | ncy | | | Depart | | | ment | | | Visit | | | Summar | | | yAdmit | | | Date | | | Facili | | | ty | | | City | | | State | | | Type | | | Major | | | Type | | | Diagno | | | ses or | | | Chief | | | | | | Compla | | | int | | | Sep 1, | | | 2017 | | | Provid | | | ence | | | [facility] | [facility] | | [place] | | | [place] | | | Emerge | | | ncy | | | Emerge | | | ncy | | | | | | Pregna | | | nt | | | Bleedi | | | ng | | | Jef | | | 13, | | | 2017 | | | Provid | | | ence | | | [facility] | | | [facility] | | [place] | | | [place] | | | Emerge | | | ncy | | | Emerge | | | ncy | | | | | | Throat | | | | | | Pain/C | | | ant | | | swallo | | | w | | | E.D. | | | Visit | | | Count | | | (12 | | | mo.)Fa | | | cility | | | | | | Visits | | | Low | | | Acuity | | | | | | Provid | | | ence | | | St. | | | [facility] | | | Medica | | | l | | | Center | | | 3 0 | | | Total | | | 3 0 | | | Note: | | | Visits | | | | | | indica | | | te | | | total | | | known | | | visits | | | . | | | Medica | | | id Low | | | | | | Acuity | | | Dx | | | are | | | the | | | number | | | of | | | primar | | | y | | | diagno | | | ses on | | | the | | | Medica | | | id's | | | Low | | | Acuity | | | dx | | | list. | | | | | | Recent | | | | | | Inpati | | | ent | | | Visit | | | Summar | | | yNo | | | record | | | ed | | | inpati | | | ent | | | visits | | | . | | | Washin | | | gton | | | PDMP | | | Report | | | Rx | | | Detail | | | s (6 | | | Mo.)Fi | | | ll | | | Date | | | Drug | | | Descri | | | ption | | | Qty. | | | Prescr | | | iber | | | CS MED | | | | | | 2017-0 | | | 7-10 | | | HYDROC | | | ODON-A | | | CETAMI | | | NOPHEN | | | 5-325 | | | 60 | | | DOUGLA | | | S | | | LUCIA | | | 2 10 | | | 2017-0 | | | 6-12 | | | HYDROC | | | ODON-A | | | CETAMI | | | NOPHEN | | | 5-325 | | | 60 | | | DOUGLA | | | S | | | LUCIA | | | 2 10 | | | 2017-0 | | | 5-15 | | | HYDROC | | | ODON-A | | | CETAMI | | | NOPHEN | | | 5-325 | | | 60 | | | DOUGLA | | | S | | | LUCIA | | | 2 10 | | | 2017-0 | | | 4-17 | | | HYDROC | | | ODON-A | | | CETAMI | | | NOPHEN | | | 5-325 | | | 60 | | | DOUGLA | | | S | | | LUCIA | | | 2 10 | | | 2017-0 | | | 3-20 | | | HYDROC | | | ODON-A | | | CETAMI | | | NOPHEN | | | 5-325 | | | 60 | | | DOUGLA | | | S | | | LUCIA | | | 2 10 | | | Rx | | | Summar | | | y (12 | | | Mo.)Me | | | tric | | | Count | | | CS | | | II-V | | | Rx 11 | | | CS-II | | | Rx 11 | | | Quanti | | | ty | | | Dispen | | | sed | | | 535 | | | Unique | | | | | | Prescr | | | ibers | | | 3 | | | Unique | | | | | | Pharma | | | cies 2 | | | | | | Benzos | | | 0 | | | Opioid | | | s 11 | | | Long | | | Acting | | | | | | Opioid | | | s 0 | | | Care | | | Provid | | | ersPro | | | vider | | | PRC | | | Type | | | Phone | | | Fax | | | Servic | | | e | | | Dates | | | DOUGLA | | | S | | | LUCIA | | | | | | Treatm | | | ent | | | (509) | | | [phone] | | | 22 | | | (509) | | | [phone] | | | 75 | | | Curren | | | t | | | ANFISS | | | A | | | [place] | | | [place] | | | Treatm | | | ent | | | Curren | | | t | | | Criter | | | ia met | | | | | | PDMPKn | | | own | | | Aliase | | | sNo | | | known | | | aliase | | | s. The | | | above | | | | | | inform | | | ation | | | is | | | provid | | | ed for | | | the | | | sole | | | purpos | | | e of | | | patien | | | t | | | treatm | | | ent. | | | Use of | | | this | | | inform | | | ation | | | beyond | | | the | | | terms | | | of | | | Data | | | Sharin | | | g | | | Memora | | | ndum | | | of | | | Unders | | | tandin | | | g and | | | Licens | | | e | | | Agreem | | | ent is | | | | | | prohib | | | ited. | | | In | | | certai | | | n | | | cases | | | not | | | all | | | visits | | | may | | | be | | | repres | | | ented. | | | | | | Consul | | | t the | | | aforem | | | ention | | | ed | | | facili | | | ties | | | for | | | additi | | | onal | | | inform | | | ation. | | | ? | | | 2017 | | | Collec | | | tive | | | Medica | | | l | | | [employer] | | | logies | | | , [employer] | | | - | | | [place] | | | [place] | | | [place], | | | [place] - | | | [email or web address] | | | ollect | | | ivemed | | | icalte | | | [email or web address] | | | | +---+--------+ documented in this encounter Results US OB Twins < 14 Weeks W Transvaginal (07/07/2017 8:34 AM PDT) + + | Specimen | + + | | + + + + + | Narrative | Performed At | + + + | TECHNIQUE: Routine transabdominal imaging of the uterus. | [facility] | | CLINICAL INFORMATION: , lower abdominal pain, vaginal | | | bleeding. COMPARISON: None available. FINDINGS: Intrauterine | | | gestation(s): Twin Cervix: Long and closed. MEASUREMENTS AND | | | ANATOMIC SURVEY: Fetus A: Coleridge-rump length: 1.50 cm, corresponding | | | to 7 weeks 5 days Mean sac diameter: 2.35 cm, corresponding to 7 | | | weeks 3 days Estimated gestational age by ultrasound is 7 weeks 5 | | | days and by last menstrual period is 8 weeks 0 days. Fetus B: | | | Coleridge-rump length: 1.56 cm, corresponding to 8 weeks 0 days Mean | | | sac diameter: 2.55 cm, corresponding to 7 weeks 5 days heart | | | rate: 158 bpm Estimated gestational age by ultrasound is 7 weeks 6 | | | days and by last menstrual period is 8 weeks 0 days. Ovaries: | | | Not visualized. Free fluid: None. Subchorionic hemorrhage: | | | None visualized. IMPRESSION - 1. Twin intrauterine | | | with concordant dating as above. 2. Recommend follow-up | | | anatomic survey at 18-22 weeks gestation. Notification: A | | | preliminary report was relayed to Dr. Mathews by the ultrasound | | | technologist immediately following the exam. Dictated and Signed | | | by: Tyshawn Newton MD Electronically signed: 07/07/2017 1:23 PM | | + + + + + | Procedure Note | + + | Mario, Rad Results In - 07/07/2017 1:26 PM PDT TECHNIQUE: Routine transabdominal | | imaging of the uterus.CLINICAL INFORMATION: , lower abdominal pain, vaginal | | bleeding.COMPARISON: None available.FINDINGS:Intrauterine gestation(s): TwinCervix: Long | | and closed.MEASUREMENTS AND ANATOMIC SURVEY:Fetus A:Coleridge-rump length: 1.50 cm, | | corresponding to 7 weeks 5 daysMean sac diameter: 2.35 cm, corresponding to 7 weeks 3 | | daysEstimated gestational age by ultrasound is 7 weeks 5 days and by last | | menstrualperiod is 8 weeks 0 days. Fetus B:Coleridge-rump length: 1.56 cm, corresponding to | | 8 weeks 0 daysMean sac diameter: 2.55 cm, corresponding to 7 weeks 5 daysFetal heart | | rate: 158 bpmEstimated gestational age by ultrasound is 7 weeks 6 days and by last | | menstrualperiod is 8 weeks 0 days. Ovaries: Not visualized.Free fluid: None.Subchorionic | | hemorrhage: None visualized.IMPRESSION - 1. Twin intrauterine with | | concordant dating as above.2. Recommend follow-up anatomic survey at 18-22 weeks | | gestation. Notification: A preliminary report was relayed to Dr. Mathews by the | | ultrasoundtechnologist immediately following the exam.Dictated and Signed by: Tyshawn | | MD Aman Electronically signed: 07/07/2017 1:23 PM | |period is 8 weeks 0 days. | | | | | |Fetus B: | |Coleridge-rump length: 1.56 cm, corresponding to 8 weeks 0 days | |Mean sac diameter: 2.55 cm, corresponding to 7 weeks 5 days | | heart rate: 158 bpm | |Estimated gestational age by ultrasound is 7 weeks 6 days and by last menstrual | |period is 8 weeks 0 days. | | | |Ovaries: Not visualized. | | | |Free fluid: None. | | | |Subchorionic hemorrhage: None visualized. | | | | | |IMPRESSION - | |1. Twin intrauterine with concordant dating as above. | |2. Recommend follow-up anatomic survey at 18-22 weeks gestation. | | | |Notification: A preliminary report was relayed to Dr. Mathews by the ultrasound | |technologist immediately following the exam. | | | |Dictated and Signed by: Tyshawn Newton MD | | Electronically signed: 07/07/2017 1:23 PM | + + + +---------+ + + | Performing | Address | City/State/Zipcode | Phone Number | | Organization | | | | + +---------+ + + | [facility] | | | | + +---------+ + + Urinalysis with Microscopic with Culture if Indicated (07/07/2017 4:15 AM PDT) + + + + + + | Component | Value | Ref Range | Performed | Pathologist | | | | | At | Signature | + + + + + + | Color, | Yellow | Light Yellow, | [facility] | | | Urine | | Yellow, Straw | [facility] | | | | | | [facility] | | | | | | [facility] - | | | | | | LABORATORY | | + + + + + + | Clarity | Clear | Clear | [facility] | | | | | | [facility] | | | | | | MEDICAL | | | | | | CENTER - | | | | | | LABORATORY | | + + + + + + | pH, Urine | 5.0 | 5.0 - 8.0 | [facility] | | | | | | [facility] | | | | | | MEDICAL | | | | | | CENTER - | | | | | | LABORATORY | | + + + + + + | Specific | 1.027 | 1.001 - 1.030 | [facility] | | | [place], | | | [facility] | | | Urine | | | MEDICAL | | | | | | CENTER - | | | | | | LABORATORY | | + + + + + + | Protein, | Negative | Negative | [facility] | | | Urine | | | [facility] | | | | | | MEDICAL | | | | | | CENTER - | | | | | | LABORATORY | | + + + + + + | Blood, | Negative | Negative | [facility] | | | Urine | | | [facility] | | | | | | MEDICAL | | | | | | CENTER - | | | | | | LABORATORY | | + + + + + + | Glucose, | Negative | Negative | [facility] | | | Urine | | | [facility] | | | | | | MEDICAL | | | | | | CENTER - | | | | | | LABORATORY | | + + + + + + | Ketones, | Negative | Negative | [facility] | | | Urine | | | [facility] | | | | | | MEDICAL | | | | | | CENTER - | | | | | | LABORATORY | | + + + + + + | Bilirubin, | Negative | Negative | [facility] | | | Urine | | | [facility] | | | | | | MEDICAL | | | | | | CENTER - | | | | | | LABORATORY | | + + + + + + | Nitrite, | Negative | Negative | [facility] | | | Urine | | | [facility] | | | | | | MEDICAL | | | | | | CENTER - | | | | | | LABORATORY | | + + + + + + | Leukocyte | Negative | Negative | [facility] | | | Esterase, | | | [facility] | | | Urine | | | MEDICAL | | | | | | CENTER - | | | | | | LABORATORY | | + + + + + + | Urobilinoge | Negative | 0.2 mg/dL, 1.0 | [facility] | | | n, Urine | | mg/dL, Negative | [facility] | | | | | | MEDICAL | | | | | | CENTER - | | | | | | LABORATORY | | + + + + + + | White Blood | 2-5 (A) | 0 - 2 /HPF | [facility] | | | Cells, | | | [facility] | | | Urine | | | MEDICAL | | | | | | CENTER - | | | | | | LABORATORY | | + + + + + + | Red Blood | 2-5 (A) | 0 - 2 /HPF | [facility] | | | Cells, | | | [facility] | | | Urine | | | MEDICAL | | | | | | CENTER - | | | | | | LABORATORY | | + + + + + + | Squamous | >100 (A) | 0 - 2 /LPF | [facility] | | | Epithelial | | | [facility] | | | Cells, | | | MEDICAL | | | Urine | | | CENTER - | | | | | | LABORATORY | | + + + + + + | Bacteria, | Negative | Negative /HPF | [facility] | | | Urine | | | [facility] | | | | | | MEDICAL | | | | | | CENTER - | | | | | | LABORATORY | | + + + + + + | Mucus, | Present (A) | Negative /LPF | [facility] | | | Urine | | | [facility] | | | | | | MEDICAL | | | | | | CENTER - | | | | | | LABORATORY | | + + + + + + | Calcium | Few (A) | None Seen /HPF | [facility] | | | Oxalate | | | [facility] | | | Crystals, | | | MEDICAL | | | Urine | | | CENTER - | | | | | | LABORATORY | | + + + + + + | Urine | Urine Culture Not | | [facility] | | | Comment | Indicated | | [facility] | | | | | | MEDICAL | | | | | | CENTER - | | | | | | LABORATORY | | + + + + + + + + | Specimen | + + | Urine - Urine | | specimen obtained by | | clean catch | | procedure (specimen) | + + + + + + + | Performing | Address | City/State/Zipcode | Phone Number | | Organization | | | | + + + + + | [facility] | [address] | [place] | [phone] | | [facility] | | [address] | | | - LABORATORY | | | | + + + + + Slide Review, Peripheral Smear (07/07/2017 4:01 AM PDT) + + + + + + | Component | Value | Ref Range | Performed | Pathologist | | | | | At | Signature | + + + + + + | RBC | Normal | | [facility] | | | Morphology | | | [facility] | | | | | | MEDICAL | | | | | | CENTER - | | | | | | LABORATORY | | + + + + + + | WBC | Normal | | [facility] | | | Morphology | | | [facility] | | | | | | MEDICAL | | | | | | CENTER - | | | | | | LABORATORY | | + + + + + + | Platelet | Adequate | Adequate | [facility] | | | Estimate | | | [facility] | | | | | | MEDICAL | | | | | | CENTER - | | | | | | LABORATORY | | + + + + + + + + | Specimen | + + | Blood | + + + + + | Narrative | Performed At | + + + | Less than 10% bands seen. | [facility] | | | [facility] | | | [facility] | | | - LABORATORY | + + + + + + + + | Performing | Address | City/State/Zipcode | Phone Number | | Organization | | | | + + + + + | [facility] | [address] | [place], [place] | [phone] | | [facility] | | [address] | | | - LABORATORY | | | | + + + + + CBC with Differential (07/07/2017 4:01 AM PDT) + + + + + + | Component | Value | Ref Range | Performed | Pathologist | | | | | At | Signature | + + + + + + | WBC | 15.4 (H) | 4.0 - 11.0 K/uL | [facility] | | | | | | [facility] | | | | | | MEDICAL | | | | | | CENTER - | | | | | | LABORATORY | | + + + + + + | RBC | 4.52 | 3.70 - 5.20 | [facility] | | | | | M/uL | [facility] | | | | | | MEDICAL | | | | | | CENTER - | | | | | | LABORATORY | | + + + + + + | Hemoglobin | 14.2 | 11.5 - 16.0 | [facility] | | | | | g/dL | [facility] | | | | | | MEDICAL | | | | | | CENTER - | | | | | | LABORATORY | | + + + + + + | Hematocrit | 41.7 | 34.0 - 47.0 % | [facility] | | | | | | [facility] | | | | | | MEDICAL | | | | | | CENTER - | | | | | | LABORATORY | | + + + + + + | MCV | 92.2 | 83.0 - 101.0 fL | [facility] | | | | | | [facility] | | | | | | MEDICAL | | | | | | CENTER - | | | | | | LABORATORY | | + + + + + + | MCH | 31.5 | 28.0 - 35.0 pg | [facility] | | | | | | [facility] | | | | | | MEDICAL | | | | | | CENTER - | | | | | | LABORATORY | | + + + + + + | MCHC | 34.2 | 32.0 - 36.0 | [facility] | | | | | g/dL | [facility] | | | | | | [facility] | | | | | | CENTER - | | | | | | LABORATORY | | + + + + + + | RDW-CV | 13.9 | <15.0 % | [facility] | | | | | | [facility] | | | | | | MEDICAL | | | | | | CENTER - | | | | | | LABORATORY | | + + + + + + | Platelet | 223 | 140 - 440 K/uL | [facility] | | | Count | | | [facility] | | | | | | MEDICAL | | | | | | CENTER - | | | | | | LABORATORY | | + + + + + + | MPV | 8.9 | fL | [facility] | | | | | | [facility] | | | | | | MEDICAL | | | | | | CENTER - | | | | | | LABORATORY | | + + + + + + | % | 71.6 | 45.0 - 82.0 % | [facility] | | | Neutrophils | | | [facility] | | | | | | MEDICAL | | | | | | CENTER - | | | | | | LABORATORY | | + + + + + + | % | 20.4 | 20.0 - 45.0 % | [facility] | | | Lymphocytes | | | [facility] | | | | | | MEDICAL | | | | | | CENTER - | | | | | | LABORATORY | | + + + + + + | % Monocytes | 3.0 (L) | 4.0 - 12.0 % | [facility] | | | | | | [facility] | | | | | | MEDICAL | | | | | | CENTER - | | | | | | LABORATORY | | + + + + + + | % | 1.8 | 0.0 - 5.0 % | [facility] | | | Eosinophils | | | [facility] | | | | | | MEDICAL | | | | | | CENTER - | | | | | | LABORATORY | | + + + + + + | % Basophils | 3.2 (H) | 0.0 - 1.0 % | [facility] | | | | | | [facility] | | | | | | MEDICAL | | | | | | CENTER - | | | | | | LABORATORY | | + + + + + + | Absolute | 11.00 (H) | 1.80 - 8.50 | [facility] | | | Neutrophils | | K/uL | [facility] | | | | | | MEDICAL | | | | | | CENTER - | | | | | | LABORATORY | | + + + + + + | Absolute | 3.10 | 0.60 - 3.20 | [facility] | | | Lymphocytes | | K/uL | [facility] | | | | | | MEDICAL | | | | | | CENTER - | | | | | | LABORATORY | | + + + + + + | Absolute | 0.50 | 0.00 - 1.00 | [facility] | | | Monocytes | | K/uL | [facility] | | | | | | MEDICAL | | | | | | CENTER - | | | | | | LABORATORY | | + + + + + + | Absolute | 0.30 | 0.00 - 0.40 | [facility] | | | Eosinophils | | K/uL | [facility] | | | | | | MED[facility] | | | | | | CENTER - | | | | | | LABORATORY | | + + + + + + | Absolute | 0.50 (H) | 0.00 - 0.10 | [facility] | | | Basophils | | K/uL | [facility] | | | | | | [facility] [...] [address] | [place] | [phone] | | [facility] | | [id number] | | | - LABORATORY | | | | + + + + + Comprehensive Metabolic Panel (07/07/2017 4:01 AM PDT) + + + + + + | Component | Value | Ref Range | Performed | Pathologist | | | | | At | Signature | + + + + + + | Na | 138 | 136 - 149 | [facility] | | | | | mmol/L | [facility] | | | | | | [facility] | | | | | | CENTER - | | | | | | LABORATORY | | + + + + + + | K | 3.4 (L) | 3.5 - 5.1 | [facility] | | | | | mmol/L | [facility] | | | | | | MEDICAL | | | | | | CENTER - | | | | | | LABORATORY | | + + + + + + | Cl | 111 (H) | 98 - 109 mmol/L | [facility] | | | | | | [facility] | | | | | | MEDICAL | | | | | | CENTER - | | | | | | LABORATORY | | + + + + + + | CO2 | 21 (L) | 24 - 31 mmol/L | [facility] | | | [facility] | [facility] | | | | | | MEDICAL | | | | | | CENTER - | | | | | | LABORATORY | | + + + + + + | Anion Gap | 6 | 3 - 16 mmol/L | [facility] | | | | | | [facility] | | | | | | [facility]ICAL | | | | | | CENTER - | | | | | | LABORATORY | | + + + + + + | Glucose | 92 | 70 - 109 mg/dL | [facility] | | | | | | [facility] | | | [facility] | | [facility]ICAL | | | | | | CENTER - | | | | | | LABORATORY | | + + + + + + | BUN | 12 | 7 - 18 mg/dL | [facility] | | | | | | [facility] | | | | | | [facility]ICAL | | | | | | CENTER - | | | | | | LABORATORY | | + + + + + + | Creatinine | 0.71 | 0.60 - 1.30 | [facility] | | | | | mg/dL | [facility] | | | | | | MEDICAL | | | | | | CENTER - | | | | | | LABORATORY | | + + + + + + | eGFR if not | >60Comment: GLOMERULAR | >=60 | [facility] | | | [facility]TR[facility] | mL/min/1.73m2 | [facility] | | | SYRIAN | RATE,ESTIMATED | | MEDICAL | | | | mL/min/1.45j6Vggb than | | CENTER - | | [...] + + | Calcium | 8.9 | 8.3 - 10.5 | [facility] | | | | | mg/dL | [facility] | | | | | | MEDICAL | | | | | | CENTER - | | | | | | LABORATORY | | + + + + + + | Albumin | 3.6 | 3.2 - 5.0 g/dL | [facility] | | | | | | [facility] | | | | | | MEDICAL | | | | | | CENTER - | | | | | | LABORATORY | | + + + + + + | Bilirubin | 0.3 | 0.1 - 1.5 mg/dL | [facility] | | | Total | | | [facility] | | | | | | MEDICAL | | | | | | CENTER - | | | | | | LABORATORY | | + + + + + + | Total | 5.8 (L) | 6.0 - 7.8 g/dL | [facility] | | | Protein | | | [facility] | | | | | | MEDICAL | | | | | | CENTER - | | | | | | LABORATORY | | + + + + + + | AST | 16 | 10 - 42 U/L | [facility] | | | | | | [facility] | | | | | | MEDICAL | | | | | | CENTER - | | | | | | LABORATORY | | + + + + + + | ALT | 21 | 6 - 45 U/L | [facility] | | | | | | [facility] | | | | | | MEDICAL | | | | | | CENTER - | | | | | | LABORATORY | | + + + + + + | Alkaline | 58 | 40 - 110 U/L | [facility] | | | Phosphatase | | | [facility] | | | | | | MEDICAL | | | | | | CENTER - | | | | | | LABORATORY | | + + + + + + | Globulin | 2.2 | 2.1 - 3.8 g/dL | [facility] | | | | | | [facility] | | | | | | MEDICAL | | | | | | CENTER - | | | | | | LABORATORY | | + + + + + + | Albumin/Simona | 1.6 | 0.8 - 2.0 | [facility] | | | bulin Ratio | | | [facility] | | | | | | MEDICAL | | | | | | CENTER - | | | | | | LABORATORY | | + + + + + + | BUN/Creatin | 16.9 | | [facility] | | | ine Ratio | | | [facility] | | | | | | MEDICAL [...] | + + + + + | [facility] | [address] | [place], [place] | [phone] | | [facility] | | [address] | | | - LABORATORY | | | | + + + + + HCG, Serum, Quant (07/07/2017 4:01 AM PDT) + + + + + + | Component | Value | Ref Range | Performed | Pathologist | | | | | At | Signature | + + + + + + | hCG Quant, | 127,111 (H)Comment: | 0 - 1 mIU/mL | [facility] | | | Serum | REFERENCE RANGE: | | [facility] | | | | | | MEDICAL | | | | B-hCG | | CENTER - | | | | LEVELGestational Age | | LABORATORY | | | | Expected hCG | | | | | | Values | | | | | | | | | | | | 0 | | | | | | .2-1 week | | | | | | 5-50 | | | | | | mIU/mL1-2 weeks | | | | | | 50-500 | | | | | | mIU/mL2-3 weeks | | | | | | 100-5,000 | | | | | | mIU/mL3-4 weeks | | | | | | 500-10,000 | | | | | | mIU/mL4-5 weeks | | | | | | 1,000-50,000 | | | | | | mIU/mL5-6 weeks | | | | | | 10,000-100,000 | | | | | | mIU/mL6-8 weeks | | | | | | 15,000-200,000 | | | | | | mIU/mL2-3 months | | | | | | 10,000-100,000 | | | | | | mIU/mL | | | | + + + + + + + + | Specimen | + + | Blood | + + + + + + + | Performing | Address | City/State/Zipcode | Phone Number | | Organization | | | | + + + + + | [facility] | [address] | [place], [place] | [phone] | | [facility] | | [address] | | | - LABORATORY | | | | + + + + + documented in this encounter Visit Diagnoses + + | Diagnosis | + + | Threatened miscarriage - Primary Threatened , unspecified as to episode of | | care | + + documented in this encounter Administered Medications + +--------+ +------+------+------+ | Medication Order | MAR | Action | Dose | Rate | Site | | | Action | Date | | | | + +--------+ +------+------+------+ | morphine injection 2 mg 2 mg, | Given | 07/07/20 | 2 mg | | | | Intravenous, ONCE, Mon07/07/17 at | | 17 7:30 | | | | | 0730, For 1 dose | | AM PDT | | | | + +--------+ +------+------+------+ +---+---+ | | | +---+---+ + +-------+ +------+---+---+ | ondansetron (ZOFRAN ODT) | Given | 07/07/20 | 4 mg | | | | disintegrating tablet 4 mg 4 mg, | | 17 4:23 | | | | | Oral, ONCE, Mon07/07/17 at 0425, | | AM PDT | | | | | For 1 dose | | | | | | + +-------+ +------+---+---+ +---+---+ | | | +---+---+ + +---------+ +--------+-------+---+ | sodium chloride 0.9% (NS) bolus | New Bag | 07/07/20 | 1,000 | 1000 | | | 1,000 mL 1,000 mL, Intravenous, | | 17 4:23 | mLs | mL/hr | | | Administer over 1 Hours, ONCE, | | AM PDT | | | | | Mon07/07/17 at 0400, For 1 dose | | | | | | + +---------+ +--------+-------+---+ +---+---+ | | | +---+---+ documented in this encounter
--- OUTSIDE RECORDS SUMMARY | ~2020-03-13 | XMS | Encounter Summary ---
Demographics + + + | Address | [address] | | | [place] [address] | + + + | Home Phone | | + + + | Preferred Language | Unknown | + + + | Marital Status | | + + + | Oriental Orthodox Affiliation | Unknown | + + + | Race | Unknown | + + + | Ethnic Group | Unknown | + + + Author + + + | Author | [facility] | | | and [place] | + + + | Organization | [facility] | | [...] Team Providers + +------+ + | Care Operational Risk Manager Name | Role | Phone | + +------+ + | Burton Masters MD | PCP | | + +------+ + Reason for Visit + + + | Reason | Comments | + + + | Care Coordination | | + + + Encounter Details +--------+ + + + + | Date | Type | Department | Care Team | Description | +--------+ + + + + | 06/20/ | Telephone | [facility] | Deny Mcmanus, | Care Coordination | | 2019 | | [facility] | [address] | | | | | [facility] [address] [place], | | | | | [address] | [place] [address] | | | | | [place] [address] | [phone] | | | | | [phone] | | | +--------+ + + + [...] | | | Visit | | [address] [facility] [address] | | | | | | [place] | | | | | | [phone] | | | | | | | | +--------+ + + + + | 03/18/ | Office | Physical Medicine | Jovana Dawson | | | 2019 | Visit | and Rehabilitation | [address] | | | | | | [address] [facility] | | | | | | [address] [place] | | | | | | [phone] | | | | | | | | +--------+ + + + + | 04/01/ | Appointment | Oncology | Deny Mcmanus, | | 2019 | | | MD [address] | | | | | | [address] [place] | | | | | | [place] [address] | | | | | | [phone] | | | | | | | | +--------+ + + + + | 04/08/ | Procedure | Physical Medicine | Leonard De Leon | | | 2019 | visit | and Rehabilitation | MD [address]iki Win | | | | | | [place] | | | | | | [address] | | | | | | | | +--------+ + + + + | 04/30/ | Office | Cardiology | Shad Saavedra, | | | 2019 | Visit | | MD Alan Cruz | | | | | | [place], | | | | | | [place] [address] | | | | | | [phone] | | | | | | | | +--------+ + + + + documented as of this encounter Visit Diagnoses Not on filedocumented in this encounter"
--- OUTSIDE RECORDS SUMMARY | ~2020-03-13 | XMS | Encounter Summary ---
Demographics + + + | Address | [address] | | | [place] [address] | + + + | Home Phone | | + + + | Preferred Language | Unknown | + + + | Marital Status | | + + + | Christianity Affiliation | Unknown | + + + | Race | Unknown | + + + | Ethnic Group | Unknown | + + + Author + + + | Author | [facility] | | | and [place] | + + + | Organization | [facility] | | | and [...] Team Providers + +------+ + | Care Co Founder Name | Role | Phone | + [...] Description | +--------+--------+ + + + | 10/07/ | Refill | [facility] | Burton Masters, | Medication Refill | | 2019 | | [facility] | [address] | | | | | [address] | [place] | | | | | [place] | [address] | | | | | [address] | | | | | | [phone] | | | +--------+--------+ + + + [...] [place] | | | | | | [address] | | | | | | | | +--------+ + + + + | 03/18/ | Office | Physical Medicine | Jovana Dawson | | | 2019 | Visit | and Rehabilitation | [address] | | | | | | [address] [facility] | | | | | | [address] [place] | | | | | | [address] | | | | | | | | +--------+ + + + + | 04/01/ | Appointment | Oncology | Deny Mcmanus, | | | 2019 | | | MD [address] | | | | | | [place] | | | | | | [place] [address] | | | | | | [phone] | | | | | | | | +--------+ + + + + | 04/08/ | Procedure | Physical Medicine | Leonard De Leon | | | 2019 | visit | and Rehabilitation | MD Kiki Win | | | | | | [place] | | | | | | [address] | | | | | | | | +--------+ + + + + | 04/30/ | Office | Cardiology | Shad Saavedra, | | | 2019 | Visit | | MD Alan Cruz | | | | | | [place], | | | | | | [place] [address] | | | | | | [phone] | | | | | | | | +--------+ + + + + documented as of this encounter Visit Diagnoses Not on filedocumented in this encounter"
--- OUTSIDE RECORDS SUMMARY | ~2020-03-13 | XMS | Encounter Summary ---
Demographics + + + | Address | [address] | | | [place] [address] | + + + | Home Phone | | + + + | Preferred Language | Unknown | + + + | Marital Status | | + + + | Latter Day Affiliation | Unknown | + + + | Race | Unknown | + + + | Ethnic Group | Unknown | + + + Author + + + | Author | [facility] | | | and [place] | + + + | Organization | [facility] | | [...] Team Providers + +------+ + | Care Bun Panner Name | Role | Phone | + +------+ + | Burton Masters MD | PCP | | + +------+ + Reason for Visit +---------+ + | Reason | Comments | +---------+ + | Results | | +---------+ + Encounter Details +--------+ + + + + | Date | Type | Department | Care Team | Description | +--------+ + + + + | 04/18/ | Telephone | [facility] | Deny Mcmanus, | Results | | 2019 | | [facility] | [address] | | | | | [facility] CLINIC [address] [place], | | | | | [address] [place] | [place] [address] | | | | | [place] [address] | [phone] | | | | | [phone] | | | +--------+ + + + [...] [place] | | | | | | [address] | | | | | | | | +--------+ + + + + | 03/18/ | Office | Physical Medicine | Jovana Dawson | | | 2019 | Visit | and Rehabilitation | [address] | | | | | | [address] | | | | | | [address] [place] | | | | | | [address] | | | | | | | | +--------+ + + + + | 04/01/ | Appointment | Oncology | Deny Mcmanus, | | | 2019 | | | [address] | | | | | | [place] | | | | | | [place] [address] | | | | | | [phone] | | | | | | | | +--------+ + + + + | 04/08/ | Procedure | Physical Medicine | Leonard De Leon | | | 2019 | visit | and Rehabilitation | MD Kiki Win | | | | | | [place] | | | | | | [address] | | | | | | | | +--------+ + + + + | 04/30/ | Office | Cardiology | Shad Saavedra, | | | 2019 | Visit | | MD Alan Cruz | | | | | | [place] | | | | | | [place] [address] | | | | | | [phone] | | | | | | | | +--------+ + + + + documented as of this encounter Visit Diagnoses Not on filedocumented in this encounter"
--- OUTSIDE RECORDS SUMMARY | ~2020-03-13 | XMS | Encounter Summary ---
Demographics + + + | Address | [address] | | | [place] [address] | + + + | Home Phone | | + + + | Preferred Language | Unknown | + + + | Marital Status | | + + + | Samaritan Affiliation | Unknown | + + + | Race | Unknown | + + + | Ethnic Group | Unknown | + + + Author + + + | Author | [facility] | | | and [place] | + + + | Organization | [facility] | | [...] Team Providers + +------+ + | Care Interlibrary Loan Specialist Name | Role | Phone | + +------+ + | Nhi Oneal MD | PCP | | + +------+ + Encounter Details +--------+ + + + + | Date | Type | Department | Care Team | Description | +--------+ + + + + | 07/19/ | Abstract | [facility] | DATA [facility]IGRATION [facility] | | | 2011 | | Conversion Location | SR | | | | | [address] [facility] | | | | | | [place], [place] | | | | | | [address] | | | | | | [phone] | | | +--------+ + + + [...] + + + | Blood Pressure | 120/60 | 03/11/2011 12:00 AM | | | | | PDT | | + + + + + | Pulse | - | - | | + + + + + | Temperature | - | - | | + + + + + | Respiratory Rate | - | - | | + + + + + | Oxygen Saturation | - | - | | + + + + + | Inhaled Oxygen | - | - | | | Concentration | | | | + + + + + | Weight | 79.8 kg (176 lb) | 03/11/2011 12:00 AM | | | | | PDT | | + + + + + | Height | 171.5 cm (5' 7.5") | 11/19/2010 12:00 AM | | | | | PST | | + + + + + | Body Mass Index | 27.16 | 11/19/2010 12:00 AM | | | | | PST | | + + + + + documented in this encounter Plan of Treatment [...] [place] | | | | | | [id number] | | | | | | | | +--------+ + + + + | 03/18/ | Office | Physical Medicine | Jovana Dawson | | 2019 | Visit | and Rehabilitation | [address] | | | | | | [facility] | | | | | | [place] | | | | | | [address] | | | | | | | | +--------+ + + + + | 04/01/ | Appointment | Oncology | Deny Mcmanus, | | | 2019 | | | [address] | | | | | | [place] | | | | | | [place] [address] | | | | | | [phone] | | | | | | | | +--------+ + + + + | 04/08/ | Procedure | Physical Medicine | Leonard De Leon | | | 2019 | visit | and Rehabilitation | MD Audelia [address] | | | | | | [place] | | | | | | [address] | | | | | | | | +--------+ + + + + | 04/30/ | Office | Cardiology | Shad Saavedra, | | | 2019 | Visit | | MD Alan Cruz | | | | | | [place], | | | | | | [place] [address] | | | | | | [phone] | | | | | | | | +--------+ + + + + documented as of this encounter Visit Diagnoses Not on filedocumented in this encounter
--- OUTSIDE RECORDS SUMMARY | ~2020-03-13 | XMS | Encounter Summary ---
Demographics + + + | Address | [address] [address] | | | [place] [address] | + + + | Home Phone | | + + + | Preferred Language | Unknown | + + + | Marital Status | | + + + | Sabianism Affiliation | Unknown | + + + | Race | Unknown | + + + | Ethnic Group | Unknown | + + + Author + + + | Author | [facility] | | | and [place] | + + + | Organization | [facility] | | | and [...] Team Providers + +------+ + | Care Inspector Mechanical Name | Role | Phone | + [...] | | | | BCR/ABL-posi | [address] | [place], | | | | | cheyanne in | [place], | [place] [address] | | | | | relapse | [place] | Phone: | | | | | (HCC) | [address] | [phone] | | | | | Chronic | Phone: | Fax: | | | | | myeloid | [phone] | [phone] | | | | | leukemia, | Fax: | | | | | | BCR/ABL-posi | [phone] | | | | | | tive, not | | | | | | | having | | | | | | | achieved | | | | | | | remission | | | | | | | (HCC) | | | | | | | Procedures | | | | | | | ND OFFICE | | | | | | | OUTPATIENT | | | | | | | VISIT 25 | | | | | | | MINUTES | | | | | | | [address] | | | +--------+--------+ + + + + Encounter Details +--------+ + + + + | Date | Type | Department | Care Team | Description | +--------+ + + + + | 12/25/ | [facility] | [facility] | Yonathan, Deny A, | Chronic myeloid | | 2020 | Encounter | [facility] | [address] | leukemia ([facility]); CML | | | | [facility]COL[facility]Y CLINIC [address] [place], | (chronic myelocytic | | | | [place] | [place] [address] | leukemia) ([facility]); | | | | [place] [address] | [phone] | Dysuria; Chronic | | | | [phone] | | myeloid leukemia, | | | | | | BCR/ABL-positive, in | | | | | | remission ([facility]); | | | | | | Recovering alcoholic | | | | | | in remission ([facility]); | | | | | | SVT | | | | | | (supraventricular | | | | | | tachycardia) ([facility]); | | | | | | Tobacco abuse | +--------+ + + + + Social [...] tablet by | 90 | 1 | 09/06/20 | | | (WELLBUTRIN) 100 mg | mouth 2 times daily. | tablet | | 19 | | | tablet | | | | | | + + + +---------+ + + | cloNIDine | take 1 tablet by | 60 | 2 | 12/18/19 | | | (CATAPRES) 0.1 mg | mouth every 6 hours | tablet | | 20 | | | tablet | if needed | | | | | + + + +---------+ + + | | Take 2 tablets for | 50 | 1 | 08/06/20 | | | diphenoxylate-atropi | diarrhea, then one | tablet | | 19 | | | ne (LOMOTIL) | tablet every 2 hours | | | | | | 2.5-0.025 mg per | as needed. | | | | | | tabletIndications: | | | | | | | Chronic myeloid | | | | | | | leukemia (HCC) | | | | | | + + + +---------+ + + | imatinib (GLEEVEC) | Take 400 mg by mouth | | 0 | 04/29/20 | | | 400 mg tablet | Daily. | | | 19 | | + + + +---------+ + [...] + + + +---------+ + + | hydrOXYzine | take 1 to 2 tablet | 60 | 2 | 10/29/20 | | | hydrochloride | by mouth every 6 | tablet | | 19 | 0 | | (ATARAX) 25 mg | hours | | | | | | tablet | | | | | | + + + +---------+ + + | lamoTRIgine | Take 1 tablet by | 90 | 1 | 09/06/20 | | | (LAMICTAL) 25 mg | mouth Daily. | tablet | | 19 | 0 | | tablet | | | | | | + + + +---------+ + + | nortriptyline | take 1 capsule by | 90 | 1 | 12/18/19 | | | (PAMELOR) 25 mg | mouth nightly | capsule | | 20 | 0 | | capsule | | | | | | + + + +---------+ + + | ondansetron | Take 1 tablet by | 90 | 2 | 09/06/20 | | | (ZOFRAN) 8 MG tablet | mouth every 8 hours | tablet | | 19 | 0 | | | as needed for | | | | | | | Nausea. | | | | | + + + +---------+ + + | oxyCODONE | Take 1.5 tablets by | 90 | 0 | 12/20/19 | | | (ROXICODONE) 5 mg | mouth every 8 hours | tablet | | 20 | 0 | | tablet | as needed for Pain. | | | | | + + + +---------+ + + | prochlorperazine | Take 1 tablet by | 90 | 2 | 09/06/20 | | | 10 mg tablet | mouth every 8 hours | tablet | | 19 | 0 | | | as needed. | | [...] | | | Visit | | [facility] [address] | | | | | | [place] | | | | | | [address] | | | | | | | | +--------+ + + + + | 03/18/ | Office | Physical Medicine | Jovana Dawson | | | 2019 | Visit | and Rehabilitation | MELANY Man [address] | | | | | | [facility] | | | | | | [address] [place] | | | | | | [address] | | | | | | | | +--------+ + + + + | 04/01/ | Appointment | Oncology | Deny Mcmanus, | | 2019 | | | MD [address] | | | | | | [facility], | | | | | | [place] [address] | | | | | | [phone] | | | | | | | | +--------+ + + + + | 04/08/ | Procedure | Physical Medicine | Leonard De Leon | | | 2019 | visit | and Rehabilitation | MD Audelia [address] | | | | | | [facility] [place] | | | | | | [address] | | | | | | | | +--------+ + + + + | 04/30/ | Office | Cardiology | Shad Saavedra, | | | 2019 | Visit | | [address] | | | | | | [place], | | | | | | [place] [address] | | | | | | [phone] | | | | | | | | +--------+ + + + + documented as of this encounter Procedures + +--------+ + + + | Procedure Name | Priori | Date/Time | Associated Diagnosis | Comments | | | ty | | | | + +--------+ + + + | URINALYSIS WITH | Routin | 12/25/2019 | Dysuria | Results for this | | MICROSCOPIC WITH | e | 11:13 AM | | procedure are in the | | CULTURE IF INDICATED | | PST | | results section. | + +--------+ + + + | CULTURE, URINE | Routin | 12/25/2019 | Dysuria | Results for this | | | e | 11:13 AM | | procedure are in the | | | | PST | | results section. | + +--------+ + + + | BCR-ABL1 FOR CML AND | Routin | 12/25/2019 | Chronic myeloid | Results for this | | ALL | e | 11:06 AM | leukemia (HCC) | procedure are in the | | | | PST | | results section. | + +--------+ + + + | CBC WITH | STAT | 12/25/2019 | Chronic myeloid | Results for this | | DIFFERENTIAL | | 11:06 AM | leukemia (HCC) | procedure are in the | | | | PST | | results section. | + +--------+ + + + | COMPREHENSIVE | STAT | 12/25/2019 | CML (chronic | Results for this | | METABOLIC PANEL | | 11:06 AM | myelocytic leukemia) | procedure are in the | | | | PST | (HCC) | results section. | + +--------+ + + + documented in this encounter Results Culture, Urine (12/25/2019 11:13 AM PST) + + + + + + | Component | Value | Ref Range | Performed | Pathologist | | | | | At | Signature | + + + + + + | Culture | >100,000 CFU/ml | | [facility] | | | | Escherichia coli | | [facility] | | | | | | MEDICAL | | | | | | CENTER - | | | | | | LABORATORY | | + + + + + + + + | Specimen | + + | Urine - Urine | | specimen obtained by | | clean catch | | procedure (specimen) | + + + + +--------+ + | Organism | Antibiotic | Method | Susceptibility | + + +--------+ + | Escherichia coli | Cefazolin | | <=4 ug/mL: | | | | | Sensitive | + + +--------+ + | Escherichia coli | Cefoxitin | | <=4 ug/mL: | | | | | Sensitive | + + +--------+ + | Escherichia coli | Ceftazidime | | <=1 ug/mL: | | | | | Sensitive | + + +--------+ + | Escherichia coli | Ceftriaxone | | <=1 ug/mL: | | | | | Sensitive | + + +--------+ + | Escherichia coli | Ciprofloxacin | | <=0.25 ug/mL: | | | | | Sensitive | + + +--------+ + | Escherichia coli | Ertapenem | | <=0.5 ug/mL: | | | | | Sensitive | + + +--------+ + | Escherichia coli | Gentamicin | | <=1 ug/mL: | | | | | Sensitive | + + +--------+ + | Escherichia coli | Meropenem | | <=0.25 ug/mL: | | | | | Sensitive | + + +--------+ + | Escherichia coli | Nitrofurantoin | | <=16 ug/mL: | | | | | Sensitive | + + +--------+ + | Escherichia coli | Tobramycin | | <=1 ug/mL: | | | | | Sensitive | + + +--------+ + | Escherichia coli | Trimethoprim + | | <=20 ug/mL: | | | Sulfamethoxazole | | Sensitive | + + +--------+ + + + + + + | Performing | Address | City/State/Zipcode | Phone Number | | Organization | | | | + + + + + | [facility] | [address] | [place] | [phone] | | [facility] | | [address] | | | - LABORATORY | | | | + + + + + Urinalysis with Microscopic with Culture if Indicated (12/25/2019 11:13 AM PST) + + + + + + | Component | Value | Ref Range | Performed | Pathologist | | | | | At | Signature | + + + + + + | Color, | Yellow | Light Yellow, | [facility] | | | Urine | | Yellow, Straw | [facility] | | | | [...] + + + + | Specific | 1.017 | 1.001 - 1.030 | [facility] | | | [place], | | | [facility] | | | Urine | | | MEDICAL | | | | | | CENTER - | | | | | | LABORATORY | | + + + + + + | Protein, | Negative | Negative | [facility] | | | Urine | | | [facility] | | | | | | MEDICAL | | | | | | CENTER - | | | | | | LABORATORY | | + + + + + + | Blood, | Negative | Negative | [facility] | | | Urine | | | [facility] | | | | | | MEDICAL | | | | | | CENTER - | | | | | | LABORATORY | | + + + + + + | Glucose, | Negative | Negative | [facility] | | | Urine | | | [facility] | | | | | | MEDICAL | | | | | | CENTER - | | | | | | LABORATORY | | + + + + + + | Ketones, | 20 mg/dL (A) | Negative | [facility] | | | Urine | | | [facility] | | | | | | MEDICAL | | | | | | CENTER - | | | | | | LABORATORY | | + + + + + + | Bilirubin, | Negative | Negative | [facility] | | | Urine | | | [facility] | | | | | | MEDICAL | | | | | | CENTER - | | | | | | LABORATORY | | + + + + + + | Nitrite, | Positive (A) | Negative | [facility] | | | Urine | | | [facility] | | | | | | MEDICAL | | | | | | CENTER - | | | | | | LABORATORY | | + + + + + + | Leukocyte | Negative | Negative | [facility] | | | Esterase, | | | [facility] | | | Urine | | | MEDICAL | | | | | | CENTER - | | | | | | LABORATORY | | + + + + + + | Urobilinoge | Negative | 0.2 mg/dL, 1.0 | [facility] | | | n, Urine | | mg/dL, Negative | [facility] | | | | | | MEDICAL | | | | | | CENTER - | | | | | | LABORATORY | | + + + + + + | White Blood | 0-2 | 0 - 2 /HPF | [facility] | | | Cells, | | | [facility] | | | Urine | | | MEDICAL | | | | | | CENTER - | | | | | | LABORATORY | | + + + + + + | Red Blood | 0-2 | 0 - 2 /HPF | [facility] | | | Cells, | | | [facility] | | | Urine | | | MEDICAL | | | | | | CENTER - | | | | | | LABORATORY | | + + + + + + | Squamous | 5-10 (A) | 0 - 2 /LPF | [facility] | | | Epithelial | | | [facility] | | | Cells, | | | MEDICAL | | | Urine | | | CENTER - | | | | | | LABORATORY | | + + + + + + | Bacteria, | 4+ (A) | Negative /HPF | [facility] | | | Urine | | | [facility] | | | | | | MEDICAL | | | | | | CENTER - | | | | | | LABORATORY | | + + + + + + | Mucus, | Present (A) | Negative /LPF | [facility] | | | Urine | | | [facility] | | | | | | MEDICAL | | | | | | CENTER - | | | | | | LABORATORY | | + + + + + + | Urine | Urine Culture Set Up | | [facility] | | | Comment | | | [facility] | | [...] + | [facility] | [address] | [place] | [phone] | | [facility] | | [address] | | | - LABORATORY | | | | + + + + + Comprehensive Metabolic Panel (12/25/2019 11:06 AM PST) + + + + + + | Component | Value | Ref Range | Performed | Pathologist | | | | | At | Signature | + + + + + + | Na | 141 | 136 - 145 | [facility] | | | | | mmol/L | [facility] | | | | | | MEDICAL | | | | | | CENTER - | | | | | | LABORATORY | | + + + + + + | K | 4.4 | 3.4 - 5.1 | [facility] | | | | | mmol/L | [facility] | | | | | | MEDICAL | | | | | | CENTER - | | | | | | LABORATORY | | + + + + + + | Cl | 108 (H) | 98 - 107 mmol/L | [facility] | | | | | | [facility] | | | | | | MEDICAL | | | | | | CENTER - | | | | | | LABORATORY | | + + + + + + | CO2 | 22 | 20 - 31 mmol/L | [facility] | | | | | | [facility] | | | | | | MEDICAL | | | | | | CENTER - | | | | | | LABORATORY | | + + + + + + | Anion Gap | 11 | 3 - 16 mmol/L | [facility] | | | | | | [facility] | | | | | | MEDICAL | | | | | | CENTER - | | | | | | LABORATORY | | + + + + + + | Glucose | 69 | 60 - 106 mg/dL | [facility] | | | | | | [facility] | | | | | | MEDICAL | | | | | | CENTER - | | | | | | LABORATORY | | + + + + + + | BUN | 13 | 9 - 23 mg/dL | [facility] | | | | | | [facility] | | | | | | MEDICAL | | | | | | CENTER - | | | | | | LABORATORY | | + + + + + + | Creatinine | 0.81 | 0.55 - 1.02 | [facility] | [...] | | | FILTRATION | mL/min/1.73m2 | [facility] | | | [facility] | RATE,ESTIMATED | | MEDICAL | | | | mL/min/1.39a2Oysz than | | CENTER - | | [...] + + + + | Calcium | 9.2 | 8.7 - 10.4 | [facility] | | | | | mg/dL | [facility] | | | | | | MEDICAL | | | | | | CENTER - | | | | | | LABORATORY | | + + + + + + | Albumin | 4.5 | 3.2 - 4.8 g/dL | [facility] | | | | | | [facility] | | | | | | MEDICAL | | | | | | CENTER - | | | | | | LABORATORY | | + + + + + + | Bilirubin | 1.3 (H) | 0.3 - 1.2 mg/dL | [facility] [...] + + + + | AST | 25 | 0 - 34 U/L | [facility] | | | | | | [facility] | | | | | | MEDICAL | | | | | | CENTER - | | | | | | LABORATORY | | + + + + + + | ALT | 21 | 10 - 49 U/L | [facility] | | | | | | [facility] | | | | | | MEDICAL | | | | | | CENTER - | | | | | | LABORATORY | | + + + + + + | Alkaline | 57 | 46 - 116 U/L | [facility] | | | Phosphatase | | | [facility] | | | | | | MEDICAL | | | | | | CENTER - | | | | | | LABORATORY | | + + + + + + | Globulin | 2.0 (L) | 2.1 - 3.8 g/dL | [facility] | | | | | | [facility] | | | | | | MEDICAL | | | | | | CENTER - | | | | | | LABORATORY | | + + + + + + | Albumin/Simona | 2.3 (H) | 0.8 - 1.9 | [facility] | | | bulin Ratio | | | [facility] | | | | | | MEDICAL | | | | | | CENTER - | | | | | | LABORATORY | | + + + + + + | BUN/Creatin | 16.0 | | [facility] | | | ine [...] [address] | [place] | [phone] | | [facility] | | [address] | | | - LABORATORY | | | | + + + + + BCR-ABL1 for CML and All (12/25/2019 11:06 AM PST) + + + + + + | Component | Value | Ref Range | Performed | Pathologist | | | | | At | Signature | + + + + + + | b2a2 | 0.2098 | % | [facility] | | | [...] | | | | | | | [facility], | | | | | | [...] e13a2 | | | | | | ([id number]) and | | | | | | [...] | | | | | e14a2 and [id number] | | | | | | transcripts. [...] | | | | ences: 1. Lalitha Win | | | | | | and Jade Ortiz: Seminars | | | | | | in Hematology 2002; | | | | | | 40 (suppl2):62-68. | | | | | | 2. carlito Sheikh | | | | | | al. Blood 2010; 116: | | | | | | i006-307. 3. NCCN | | | | | | Clinical Practice | | | | | | Guidelines in Oncology, | | | | | | Chronic Myeloid | | | | | | Leukemia. V2. 2017. | | | | + + + + + + + + | Specimen | + + | Blood - Structure of | | antecubital vein | | (body structure) | + + + + + | Narrative | Performed At | + + + | Performed at: - [facility] [place] [address], | REFERENCE LAB | | [place], [place] [id number] Retail Department Supervisor: Miguelina Lorenzo MD, Phone: | [facility] | | [phone] Performed at: - [facility] [address] | | [place], [place] [id number] Retail Department Supervisor: Miguelina Lorenzo MD, | | | Phone: [phone] | | + + + + + + + + | Performing | Address | City/State/Zipcode | Phone Number | | Organization | | | | + + + + + | REFERENCE LAB | [address] | [place], [place] | [phone] | | [facility] | [place] | [address] | | + + + + + CBC with Differential (12/25/2019 11:06 AM PST) + + + + + + | Component | Value | Ref Range | Performed | Pathologist | | | | | At | Signature | + + + + + + | WBC | 11.3 (H) | 4.0 - 11.0 K/uL | [facility] | | | | | | [facility] | | | | | | MEDICAL | | | | | | CENTER - | | | | | | LABORATORY | | + + + + + + | RBC | 4.26 | 3.70 - 5.20 | [facility] | | | | | M/uL | [facility] | | | | | | MEDICAL | | | | | | CENTER - | | | | | | LABORATORY | | + + + + + + | Hemoglobin | 14.3 | 11.5 - 16.0 | [facility] | | | | | g/dL | [facility] | | | | | | MEDICAL | | | | | | CENTER - | | | | | | LABORATORY | | + + + + + + | Hematocrit | 40.8 | 34.0 - 47.0 % | [facility] | | | | | | [facility] | | | | | | MEDICAL | | | | | | CENTER - | | | | | | LABORATORY | | + + + + + + | MCV | 95.8 | 83.0 - 101.0 fL | [facility] | | | | | | [facility] | | | | | | MEDICAL | | | | | | CENTER - | | | | | | LABORATORY | | + + + + + + | MCH | 33.6 | 28.0 - 35.0 pg | [facility] | | | | | | [facility] | | | | | | MEDICAL | | | | | | CENTER - | | | | | | LABORATORY | | + + + + + + | MCHC | 35.0 | 32.0 - 36.0 | [facility] | | | | | g/dL | [facility] | | | | | | MEDICAL | | | | | | CENTER - | | | | | | LABORATORY | | + + + + + + | RDW-CV | 13.2 | <15.0 % | [facility] | | | | | | [facility] | | | | | | MEDICAL | | | | | | CENTER - | | | | | | LABORATORY | | + + + + + + | RDW-SD | 46.9 (H) | 35.1 - 46.3 fL | [facility] | | | | | | [facility] | | | | | | MEDICAL | | | | | | CENTER - | | | | | | LABORATORY | | + + + + + + | Platelet | 224 | 140 - 440 K/uL | [facility] | | | Count | | | [facility] | | | | | | MEDICAL | | | | | | CENTER - | | | | | | LABORATORY | | + + + + + + | MPV | 9.3 | 6.5 - 12.4 fL | [facility] | | | | | | [facility] | | | | | | MEDICAL | | | | | | CENTER - | | | | | | LABORATORY | | + + + + + + | % | 66.0 | 45.0 - 82.0 % | [facility] | | | Neutrophils | | | [facility] | | | | | | MEDICAL | | | | | | CENTER - | | | | | | LABORATORY | | + + + + + + | % | 26.3 | 20.0 - 45.0 % | [facility] | | | Lymphocytes | | | [facility] | | | | | | MEDICAL | | | | | | CENTER - | | | | | | LABORATORY | | + + + + + + | % Monocytes | 5.7 | 4.0 - 12.0 % | [facility] | | | | | | [facility] | | | | | | MEDICAL | | | | | | CENTER - | | | | | | LABORATORY | | + + + + + + | % | 1.0 | 0.0 - 5.0 % | [facility] [...] + + + + | Absolute | 7.42 | 1.80 - 8.50 | [facility] | | | Neutrophils | | K/uL | [facility] | | | | | | MEDICAL | | | | | | CENTER - | | | | | | LABORATORY | | + + + + + + | Absolute | 2.96 | 0.60 - 3.20 | [facility] | | | Lymphocytes | | K/uL | [facility] | | | | | | MEDICAL | | | | | | CENTER - | | | | | | LABORATORY | | + + + + + + | Absolute | 0.64 | 0.00 - 1.00 | [facility] | | | Monocytes | | K/uL | [facility] | | | | | | MEDICAL | | | | | | CENTER - | | | | | | LABORATORY | | + + + + + + | Absolute | 0.11 | 0.00 - 0.40 | [facility] | | | Eosinophils | | K/uL | [facility] | | | | | | MEDICAL | | | | | | CENTER - | | | | | | LABORATORY | | + + + + + + | Absolute | 0.07 | 0.00 - 0.10 | [facility] | | | Basophils | | K/uL | [facility] | | | | | | MEDICAL | | | | | | CENTER - | | | | | | LABORATORY | | + + + + + + | Absolute | 0.05 (H)Comment: For | 0.00 - 0.03 | [facility] | | | Immature | patients, use | K/uL | [facility] | | | Granulocyte | the [...] | nRBC | | K/uL | [facility] | | | | [...] 0.003-0.091 K/uL 0.0-0.9% 2nd 0.007-0.247 K/uL | [facility] | | 0.1-2.0% [facility] 0.018-0.456 K/uL 0.1-2.0% | - LABORATORY | + + + + + + + + | Performing | Address | City/State/Zipcode | Phone Number | | Organization | | | | + + + + + | [facility] | [address] | [place] | [phone] | | [facility] | | [address] | | | - LABORATORY | | | | + + + + + documented in this encounter Visit Diagnoses + + | Diagnosis | + + | Chronic myeloid leukemia (HCC) Chronic myeloid leukemia, without mention of having | | achieved remission | + + | CML (chronic myelocytic leukemia) (HCC) Chronic myeloid leukemia, without mention of | | having achieved remission | + + | Dysuria | + + | Chronic myeloid leukemia, BCR/ABL-positive, in remission (HCC) Chronic myeloid | | leukemia in remission | + + | 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
--- OUTSIDE RECORDS SUMMARY | ~2020-03-13 | XMS | Encounter Summary ---
Demographics + + + | Address | [address] | | | [place] [address] | + + + | Home Phone | | + + + | Preferred Language | Unknown | + + + | Marital Status | | + + + | Buddhist Affiliation | Unknown | + + + | Race | Unknown | + + + | Ethnic Group | Unknown | + + + Author + + + | Author | [facility] | | | and [place] | + + + | Organization | [facility] | [...] Team Providers + +------+ + | Care Hot Mill Roller Name | Role | Phone | + [...] Description | +--------+--------+ + + + | 03/03/ | Refill | [facility] | Burton Masters, | Medication Refill | | 2020 | | [facility] | [address] | | | | | [address] | [place] | | | | | [place] | [address] | | | | | [address] | | | | | | [phone] | | | +--------+--------+ + + + [...] [place] | | | | | | [address] | | | | | | | | +--------+ + + + + | 03/18/ | Office | Physical Medicine | Jovana Dawson | | | 2019 | Visit | and Rehabilitation | [address] [address] | | | | | | [facility] | | | | | | [address] [place] | | | | | | [address] | | | | | | | | +--------+ + + + + | 04/01/ | Appointment | Oncology | Deny Mcmanus, | | | 2019 | | | MD [address] | | | | | | [place] | | | | | | [place] [address] | | | | | | [phone] | | | | | | | | +--------+ + + + + | 04/08/ | Procedure | Physical Medicine | Leonard De Leon | | | 2019 | visit | and Rehabilitation | MD [address] | | | | | | [place] | | | | | | [address] | | | | | | | | +--------+ + + + + | 04/30/ | Office | Cardiology | Shad Saavedra, | | | 2019 | Visit | | MD [address] | | | | | | [place], | | | | | | [place] [address] | | | | | | [phone] | | | | | | | | +--------+ + + + + documented as of this encounter Visit Diagnoses Not on filedocumented in this encounter"
--- OUTSIDE RECORDS SUMMARY | ~2020-03-13 | XMS | Encounter Summary ---
Demographics + + + | Address | [address] | | | [place] [address] | + + + | Home Phone [...] Phone | + + +---------+ + | rTisha Webb | ECON | Unknown | | + + +---------+ + Care Team Providers + +------+ + | Care Repairer Typewriter Name | Role | Phone | + +------+ + | Burton Masters MD | PCP | | + +------+ + Reason for Visit + + + | Reason | Comments | + + + | Pre-Procedure | | + + + Encounter Details +--------+ + + + + | Date | Type | Department | Care Team | Description | +--------+ + + + + | 09/16/ | Telephone | [facility] | Kendrick Kumar, | Pre-Procedure | | 2019 | | [facility] | MD [address] | | | | | [address] | [address] [place], | | | | | [facility] [address] [place] | [place] [address] | | | | | [address] | [phone] | | | | | [phone] | | | +--------+ + + + [...] + + | 03/17/ | Virtual | Ivan | Zuhair Flores | | | 2019 | Office | | MD Joselito [address] | | | | Visit | | [facility] [address] | | | | | | [place] | | | | | | [address] | | | | | | | [...] [place] | | | | | | [address] | | | | | | | | +--------+ + + + + | 04/01/ | Appointment | Oncology | Deny Mcmanus, | | | 2019 | | | [address] | | | | | | [address] [place], | | | | | | [place] [address] | | | | | | [phone] | | | | | | | | +--------+ + + + + | 04/08/ | Procedure | Physical Medicine | Leonard De Leon | | | 2019 | visit | and Rehabilitation | MD Kiki Win | | | | | | [place] | | | | | | [address] | | | | | | | | +--------+ + + + + | 04/30/ | Office | Cardiology | Shad Saavedra, | | | 2019 | Visit | | MD Alan Cruz | | | | | | [place], | | | | | | [place] [address] | | | | | | [phone] | | | | | | | | +--------+ + + + + documented as of this encounter Visit Diagnoses Not on filedocumented in this encounter"
--- OUTSIDE RECORDS SUMMARY | ~2020-03-13 | XMS | Encounter Summary ---
Demographics + + + | Address | [address] | | | [place] [address] | + + + | Home Phone | | + + + | Preferred Language | Unknown | + + + | Marital Status | Single | + + + | Restoration Affiliation | NON | + + + | Race | White | + + + | Ethnic Group | Not or | + + + Author + + + | Author | [facility] | + + + | Organization | [facility] | + + + | Address | [...] Team Providers + +------+ + | Care Health Evaluator Name | Role | Phone | + +------+ + | [place] Masters MD | PCP | | + +------+ + Reason for Visit + + + | Reason | Comments | + + + | Request For Records | | + + + Encounter Details +--------+ + + + + | Date | Type | Department | Care Team | Description | +--------+ + + + + | 06/06/ | Telephone | [facility] | Jalen Moore, | Request For Records | | 2019 | | Clinics at S | MD [address] | | | | | [facility] | [place], [place] | | | | | for Health and | [address] | | | | | Healing [address] | [phone] | | | | | [address] [place], [place] | | | | | | [address] | | | | | | [phone] | | | +--------+ + + + [...] [place] | | | | | | [place] | | | | | | [address] | | | | | | [phone] | | | | | | | | +--------+---------+ + + + documented as of this encounter Visit Diagnoses Not on filedocumented in this encounter"
--- OUTSIDE RECORDS SUMMARY | ~2020-03-13 | XMS | Encounter Summary ---
Demographics + + + | Address | [address] | | | [place] [address] | + + + | Home Phone | | + + + | Preferred Language | Unknown | + + + | Marital Status | | + + + | Anabaptist Affiliation | Unknown | + + + | Race | Unknown | + + + | Ethnic Group | Unknown | + + + Author + + + | Author | [facility] | | | and [place] | + + + | Organization | [facility] | | | and [...] Team Providers + +------+ + | Care Marketing Database Analyst Name | Role | Phone | + +------+ + PCP | Unavailable | + +------+ + Encounter Details +--------+ + + + + | Date | Type | Department | Care Team | Description | +--------+ + + + + | 02/18/ | Hospital | [facility] | Jose Guadalupe Black MD | | | 2003 - | Encounter | [facility] | [facility] | | | | | HLTH [address] | HEALTH [address] | | | 03/01/ | | [place] | [facility] | | | 2003 | | [address] | [place] | | | | | [phone] | [address] | | +--------+ + + + + [...] [place] | | | | | | [address] | | | | | | | | +--------+ + + + + | 03/18/ | Office | Physical Medicine | Jovana Dawson | | 2019 | Visit | and Rehabilitation | MELANY Man [address] | | | | | | [address] [facility] | | | | | | [place] | | | | | | [address] | | | | | | | | +--------+ + + + + | 04/01/ | Appointment | Oncology | Deny Mcmanus, | | | 2019 | | | [address] | | | | | | [place] | | | | | | [place] [address] | | | | | | [phone] | | | | | | | | +--------+ + + + + | 04/08/ | Procedure | Physical Medicine | Leonard De Leon | | | 2019 | visit | and Rehabilitation | MD Audelia [address] | | | | | | [place] | | | | | | [address] | | | | | | | | +--------+ + + + + | 04/30/ | Office | Cardiology | Shad Saavedra, | | | 2019 | Visit | | MD Alan Cruz | | | | | | [place], | | | | | | [place] [address] | | | | | | [phone] | | | | | | | | +--------+ + + + + documented as of this encounter Visit Diagnoses Not on filedocumented in this encounter"
--- OUTSIDE RECORDS SUMMARY | ~2020-03-13 | XMS | Encounter Summary ---
Demographics + + + | Address | [address] | | | [place] [address] | + + + | Home Phone | | + + + | Preferred Language | Unknown | + + + | Marital Status | | + + + | Christian Affiliation | Unknown | + + + | Race | Unknown | + + + | Ethnic Group | Unknown | + + + Author + + + | Author | [facility] | | | and [place] | + + + | Organization | [facility] | | | [...] Team Providers + +------+ + | Care Card Punching Machine Operator Name | Role | Phone | + +------+ + | [place] MD | PCP | | + +------+ + Encounter Details +--------+ + + + + | Date | Type | Department | Care Team | Description | +--------+ + + + + | 07/01/ | Abstract | [facility] | Cristian | SVT | | 2019 | | CARDIOLOGY [address] | [address] | (supraventricular | | | | [place], | [address] | tachycardia) (HCC) | | | | [place] [address] | [place] [address] | | | | | [phone] | | | +--------+ + + + [...] [place] | | | | | | [address] | | | | | | | | +--------+ + + + + | 03/18/ | Office | Physical Medicine | Jovana Dawson | | | 2019 | Visit | and Rehabilitation | MELANY Man [address] | | | | | | [address] [facility] [facility] | | | | | | [place] | | | | | | [address] | | | | | | | | +--------+ + + + + | 04/01/ | Appointment | Oncology | Deny Mcmanus, | | | 2019 | | | [address] | | | | | | [place] | | | | | | [place] [address] | | | | | | [phone] | | | | | | | | +--------+ + + + + | 04/08/ | Procedure | Physical Medicine | Leonard De Leon | | | 2019 | visit | and Rehabilitation | MD Audelia [address] | | | | | | [place] | | | | | | [address] | | | | | | | | +--------+ + + + + | 04/30/ | Office | Cardiology | Shad Saavedra, | | | 2019 | Visit | | [address] [place] | | | | | | [place], | | | | | | [place] [address] | | | | | | [phone] | | | | | | | | +--------+ + + + + documented as of this encounter Visit Diagnoses + + | Diagnosis | + + | SVT (supraventricular tachycardia) (HCC) Other specified cardiac dysrhythmias | + + documented in this encounter"
--- OUTSIDE RECORDS SUMMARY | ~2020-03-13 | XMS | Encounter Summary ---
Demographics + + + | Address | [address] | | | [place] [address] | + + + | Home Phone | | + + + | Preferred Language | Unknown | + + + | Marital Status | | + + + | Episcopalian Affiliation | Unknown | + + + [...] Team Providers + +------+ + | Care Ic Engineer Name | Role | Phone | + [...] Description | +--------+--------+ + + + | 12/16/ | Refill | [facility] | [place], | Medication Refill | | 2020 | | [facility] [place] | [address] | | | | | [address] | [place] | | | | | [place] | [address] | | | | | [address] | | | | | | [phone] | | | +--------+--------+ + + + [...] [place] | | | | | | [address] | | | | | | | | +--------+ + + + + | 03/18/ | Office | Physical Medicine | Jovana Dawson | | | 2019 | Visit | and Rehabilitation | [address] | | | | | | [address] [facility] [facility] | | | | | | [address] [place] | | | | | | [address] | | | | | | | | +--------+ + + + + | 04/01/ | Appointment | Oncology | Deny Mcmanus, | | | 2019 | | | MD [address] | | | | | | [place] | | | | | | [place] [address] | | | | | | [phone] | | | | | | | | +--------+ + + + + | 04/08/ | Procedure | Physical Medicine | Leonard De Leon | | | 2019 | visit | and Rehabilitation | MD [address] | | | | | | [place] | | | | | | [address] | | | | | | | | +--------+ + + + + | 04/30/ | Office | Cardiology | Shad Saavedra, | | | 2019 | Visit | | MD Alan Cruz | | | | | | [place], | | | | | | [place] [address] | | | | | | [phone] | | | | | | | | +--------+ + + + + documented as of this encounter Visit Diagnoses Not on filedocumented in this encounter"
--- OUTSIDE RECORDS SUMMARY | ~2020-03-13 | XMS | Encounter Summary ---
Demographics + + + | Address | [address] | | | [place] [address] | + + + | Home Phone | | + + + | Preferred Language | Unknown | + + + | Marital Status | | + + + | Latter-Day Affiliation | Unknown | + + + | Race | Unknown | + + + | Ethnic Group | Unknown | + + + Author + + + | Author | [facility] | | | and [place] | + + + | Organization | [facility] | | | [...] Team Providers + +------+ + | Care Plastic Tile Setter Name | Role | Phone | + +------+ + | No, Physician | PCP | Unavailable | + +------+ + Reason for Visit + + + | Reason | Comments | + + + | Non-stress Test | decreased movement | + + + Encounter Details +--------+ + + + + | Date | Type | Department | Care Team | Description | +--------+ + + + + | 09/28/ | Hospital | [facility] | Dorota Beal | | | 2016 | Encounter | MED CTR LABOR AND | [place], DO [address] | | | | [address] | [address] | | | | | [place], | [place] [address] | | | | | [place] [address] | [phone] | | | | | [phone] | | | +--------+ + + + [...] + + + | Blood Pressure | 130/74 | 09/28/2016 10:00 AM | | | | | PST | | + + + + + | Pulse | 87 | 09/28/2016 10:00 AM | | | | | PST | | + + + + + | Temperature | 36.3 C (97.3 F) | 09/28/2016 9:15 AM | | | | | PST | | + + + + + | Respiratory Rate | 18 | 09/28/2016 9:15 AM | | | | | PST | | + + + + + | Oxygen Saturation | 99% | 09/28/2016 10:00 AM | | | | | PST [...] + documented in this encounter Discharge Instructions Instructions Barbie Arshad, RN - 09/28/2016 Kick Counts It s normal to worry about your baby s health. One way you can knowyour baby s doin g well is to record the baby s movements once a day. This is called a kick count.Ryan woods to take your kick count records to all your appointments with your healthcare provider. How to count kicks Here are tips for counting kicks: Choose a time when the baby is active, such as after a meal. Sit comfortably or lie on your side. The first time the baby moves,write downthe time. Count each movement until the baby has [id number]. This can take from 20 minutes t o 2hours. Try to do it at the same time each day. When to call your healthcare provider Call your healthcare providerright awayif you notice any of the following: Your baby moves fewer than 10times [id number] while you re doing kick counts. Your baby moves much less often than on thedays before. You have not felt your baby move all day. [id number] [employer]. [address] [place] [address], [place] [address]. All righ ts reserved. This information is not intended as a substitute for professional medical care. Always follow your healthcare professional's instructions. Discharge Education for the Undelivered Patient You can use the following list as a guide to help you know when to call your provider or re turn to the hospital. Labor Contractions (labor pains) every 5 minutes or less, lasting 60 seconds or more Contractions become stronger Bag of solano broken or leaking fluid from the vagina Labor (more than 3 weeks before your due date) Contractions (labor pains) that occur more than 4 times per hour (every 15 minutes), la sting 30 seconds or more, for 2 hours Backache or pelvic pressure Bag of solano broken or leaking fluid from the vagina Movement Counting Starting at 7 months (28 weeks) Decreased (less than 10 movements in 2 hours) Other Reasons to Call Constant headache Changes in vision Sudden increase in swelling, especially rapid weight gain chiefly in your face and/ or hands Constant abdominal (belly) pain Bright red vaginal bleeding or passing enough clots to need a pad Temperature over 100.4 (38 C) documented in this encounter Medications at Time [...] | Take 200 mg by mouth | 60 | 1 | 10/16/20 | | | (COLACE) 100 MG | 2 times daily. | capsule | | 16 | 6 | | capsule | | [...] | | 0 | | | | [id number] | mouth Daily. | | | | 7 | | (PRE- PO) | | | | | | + + + +---------+ + + documented as of this encounter Progress Notes Dorota Beal DO - 10/02/2016 9:06 AM PSTC/o decreased FM in office. Sent for NS T NST reactive. Cat I tracing Discharged home documented in this encounter Plan of Treatment [...] W | | | | | | [facility] | | | | | | [address] [place] | | | | | | [id number] | | | | | | | | +--------+ + + + + | 04/01/ | Appointment | Oncology | Deny Mcmanus, | | | 2019 | | | [address] | | | | | | [facility], | | | | | | [place] [address] | | | | | | [phone] | | | | | | | | +--------+ + + + + | 04/08/ | Procedure | Physical Medicine | Leonard De Leon | | 2019 | visit | and Rehabilitation | MD Audelia [address] | | | | | | [facility] [place] | | | | | | [address] | | | | | | | | +--------+ + + + + | 04/30/ | Office | Cardiology | Shad Saavedra, | | 2019 | Visit | | MD [address] | | | | | | [facility], | | | | | | [place] [address] | | | | | | [phone] | | | | | | | | +--------+ + + + + documented as of this encounter Visit Diagnoses Not on filedocumented in this encounter"
--- OUTSIDE RECORDS SUMMARY | ~2020-03-13 | XMS | Encounter Summary ---
Demographics + + + | Address | [address] | | | [place] [address] | + + + | Home Phone | | + + + | Preferred Language | Unknown | + + + | Marital Status | | + + + | Yazidi Affiliation | Unknown | + + + | Race | Unknown | + + + | Ethnic Group | Unknown | + + + Author + + + | Author | [facility] | | | and [place] | + + + | Organization | [facility] | | | [...] Team Providers + +------+ + | Care Cleaner And Preparer Name | Role | Phone | + +------+ + | No, Physician | PCP | Unavailable | + +------+ + Reason for Referral Evaluate & Treat (Routine) +--------+ + + + + + | Status | Reason | Specialty | Diagnoses / | Referred By | Referred To | | | | | Procedures | Contact | Contact | +--------+ + + + + + | Closed | Specialty | | Diagnoses | | | | | Services | Services / | Previous | Emigdio, | | | | Required | | | Dorota Rand, | | | | | and | delivery | DO [address] | | | | | | affecting | [address] | | | | | | | [place], | | | | | | | [place] [address] | | | | | | | Phone: | | | | | | | [phone] | | | | | | | Fax: | | | | | | | [phone] | | +--------+ + + + + + (Routine) +--------+ + + + + + | Status | Reason | Specialty | Diagnoses / | Referred By | Referred To | | | | | Procedures | Contact | Contact | +--------+ + + + + + | Closed | Specialty | | Diagnoses | | | | | Services | and | Previous | Emigdio, | | | | Required | | | Dorota Rand, | | | | | | delivery | DO [address] | | | | | | affecting | [address] | | | | | | | [place], | | | | | | | [place] [address] | | | | | | | Phone: | | | | | | | [phone] | | | | | | | Fax: | | | | | | | [phone] | | +--------+ + + + + + Reason for Visit Auth/Cert +--------+--------+ + [...] | | | | | | | [place] | | | | | | | [...] | +--------+ + + + + | 10/14/ | Hospital | [facility] | Dorota Beal | Previous | | 2016 - | Encounter | [facility] | DO [place] [address] | delivery affecting | | | | [address] | [facility] | (Primary | | 10/16/ | | [place] | [place] [address] | Dx) | | 2015 | | [address] | [phone] | | | | | [phone] | | | +--------+ + + + [...] + documented in this encounter Discharge Summaries Hailma Flanagan DO - 10/16/2016 9:53 AM PST DISCHARGE SUMMARY-OBSTETRICS Date of Admission: 10/14/2016 Date of Discharge: 10/16/2016 ATTENDING CLINICIAN: Dorota Beal DO PRIMARY ASSEMBLER ERECTOR: No Physician on file Diagnosis: Mild wound [...] position. Remember, it can take as long [id number] for a incision to heal. Activity Here [...] symptoms Feelings of anxiety, panic, and/or depression [employer]. [address] [place] [address]. All righ ts reserved. This information is [...] anddepression, or difficulty bonding with your baby [employer]. [address] [place] [address]. All righ ts reserved. This information is [...] down. Expressing by hand or pump Your product consultant or other healthcare provider can help [...] Arrange to breastfeed at lunch if your early childhood director is nearby. Breastfeed before you leave for work and soon after you return home. Your partner may be able to make dinner while you feed the baby. Breastfeed at night and on weekends. Your baby can have bottled breastmilk during the . [id number] [employer]. [address] [place] [address], [place] [address]. All righ ts reserved. This information is [...] can bu rn the baby s mouth. [phone] [employer]. [address] [place] [address], [place] [id number]. All righ ts reserved. This information is [...] nipples, consult your healthcare provider or a product consultant. He or she will make sure [...] or your milk does not flow freely [id number] [employer]. [address] [place] [address], [place] [address]. All righ ts reserved. This information is [...] | | 0 | | | | Jikimhzx-Ect-Vg-FA | mouth Daily. | | | | 7 | | (PRE- PO) | | | | | | + + + +---------+ + + documented as of this encounter Progress Notes Jt Villela RN - 10/16/2016 12:49 PM PSTRedness at incision site has not extended past the marked area. No firmness or heat noted at the incision site. ontagninoHalima, - 10/16/2016 9:47 AM PSTObstetrics Postop Progress [...] Clean, dry, intact without signs of infection. [place] intact. Fundus: Firm, below the umbilicus Extremities: No calf tenderness,trace edema Labs: Lab Results Component Value Date WBC 7.0 10/15/2016 HGB 10.8* 10/15/2016 HCT 31.5* 10/15/2016 MCV 91.9 10/15/2016 PLT 134* 10/15/2016 Assesment/Plan: Post op Day #1 s/p section recovering appropriately -voiding without difficulty -encourage ambulation -encourage -routine care, appropriate CBC post-op URI -robitussin prn -abd binder Electronically Signed by: Halima Flanagan DO 10/15/2016 [...] W | | | | | | [facility] | | | | | | [address] [place] | | | | | | [id number] | | | | | | | | +--------+ + + + + | 04/01/ | Appointment | Oncology | Deny Mcmanus | | | 2019 | | | [address] | | | | | | [facility], | | | | | | [place] [address] | | | | | | [phone] | | | | | | | | +--------+ + + + + | 04/08/ | Procedure | Physical Medicine | Leonard De eLon | | | 2019 | visit | and Rehabilitation | TMD [address] | | | | | | [facility] [place] | | | | | | [address] | | | | | | | | +--------+ + + + + | 04/30/ | Office | Cardiology | Shad Saavedra, | | 2019 | Visit | | [address] | | | | | | [facility], | | | | | | [place] [address] | | | | | | [phone] | | | | | | | [...] | | | | g/dL | [facility] | | | | | | MEDICAL [...] + + | [facility] | [address] | [place] | [phone] | | [facility] | | [address] | | | - LABORATORY | | [...] | | Screen | | | [facility] | | [...] [address] | [place] | | | [facility] | | [address] | | | - BLOOD BANK | [...] + + | [facility] | [address] | [place] | [phone] | | [facility] | | [address] | | | - LABORATORY | | | | + + + + + LABS - EXTERNAL SCAN (09/23/2016 12:00 AM PST) + + + | Narrative | Performed At | + + + | Ordered by an | | | unspecified provider. | | + + + documented in this encounter Visit Diagnoses + + | Diagnosis | + + | Previous delivery affecting - Primary Previous delivery, | | unspecified as to episode of care or not applicable | + + documented in this encounter Administered Medications + +--------+ +--------+------+------+ | Medication Order | MAR | Action | Dose | Rate | Site | | | Action | Date | | | | + +--------+ +--------+------+------+ | cephalexin (KEFLEX) capsule 500 | Given | 10/16/20 | 500 mg | | | | mg 500 mg, Oral, 2 TIMES DAILY, | | 16 10:13 | | | | | First dose on 10/16/16 at | | AM PST | | | | | 1000, Indications: NON-PURULENT | | | | | | | SKIN AND SOFT TISSUE INFECTION | | | | | | + +--------+ +--------+------+------+ +---+---+ | | | +---+---+ + +-------+ +--------+---+---+ | citric acid-sodium citrate | Given | 10/14/20 | 30 mLs | | | | (BICITRA) liquid 30 mL 30 mL, | | 16 6:47 | | | | | Oral, ONCE, 10/14/16 at 0630, | | AM PST | | | | | For 1 dose, Dilute in 1 to 3 | | | | | | | ounces water prior to | | | | | | | administration., Pre-op | | | | | | + +-------+ +--------+---+---+ +---+---+ | | | +---+---+ + +-------+ +--------+---+---+ | docusate sodium (COLACE) | Given | 10/15/20 | 200 mg | | | | capsule 200 mg 200 mg, Oral, 2 | | 16 8:44 | | | | | TIMES DAILY PRN, Constipation, | | PM PST | | | | | Starting 10/14/16 at 0938, | | | | | | | Hold for loose stools, | | | | | | + +-------+ +--------+---+---+ +-------+ +--------+---+---+ | Given | 10/14/20 | 200 mg | | | | | 16 8:16 | | | | | | PM PST | | | | +-------+ +--------+---+---+ +---+---+ | | | +---+---+ + + + +--------+---+---+ | fentaNYL (PF) injection 25-50 | Given by | 10/14/20 | 50 mcg | | | | mcg 25-50 mcg, Intravenous, | Other | 16 9:18 | | | | | EVERY 5 MIN PRN, Pain, Starting | | AM PST | | | | | 10/14/16 at 0846, Maximum | | | | | | | total dose 250 mcg. PACU IV | | | | | | | Narcotic Priority: Only use | | | | | | | fentanyl for immediate post-op | | | | | | | pain (one dose) or breakthrough | | | | | | | pain when any other IV narcotics | | | | | | | ordered have been ineffective (if | | | | | | | ordered). If both morphine and | | | | | | | hydromorphone are ordered, use | | | | | | | morphine first, and use | | | | | | | hydromporphone if morphine | | | | | | | ineffective., Recovery/Phase I | | | | | | + + + +--------+---+---+ +-------+ +--------+---+---+ | Given | 10/14/20 | 50 mcg | | | | | 16 9:02 | | | | | | AM PST | | | | +-------+ +--------+---+---+ +---+---+ | | | +---+---+ + +-------+ +--------+---+---+ | guaiFENesin (ROBITUSSIN) 100 | Given | 10/16/20 | 200 mg | | | | mg/5 mL liquid 200 mg 200 mg, | | 16 10:26 | | | | | Oral, EVERY 4 HOURS PRN, Cough, | | AM PST | | | | | Starting 10/15/16 at 0824 | | | | | | + +-------+ +--------+---+---+ +-------+ +--------+---+---+ | Given | 10/16/20 | 200 mg | | | | | 16 6:26 | | | | | | AM PST | | | | +-------+ +--------+---+---+ | Given | 10/16/20 | 200 mg | | | | | 16 1:01 | | | | | | AM PST | | | | +-------+ +--------+---+---+ +---+---+ | | | +---+---+ + +-------+ +------+---+---+ | HYDROmorphone (DILAUDID) | Given | 10/14/20 | 1 mg | | | | injection 0.25-1 mg 0.25-1 mg, | | 16 2:36 | | | | | Intravenous, EVERY 2 HOURS PRN, | | PM PST | | | | | Pain, Starting 10/14/16 at | | | | | | | 0937, If oral route not an | | [...] +-------+ +------+---+---+ +-------+ +------+---+---+ | Given | 10/14/20 | 1 mg | | | | | 16 12:30 | | | | | | PM PST | | | | +-------+ +------+---+---+ | Given | 10/14/20 | 1 mg | | | | | 16 10:41 | | | | | | AM PST | | | | +-------+ +------+---+---+ +---+---+ | | | +---+---+ + +-------+ +--------+---+---+ | ibuprofen (ADVIL, MOTRIN) | Given | 10/16/20 | 600 mg | | | | tablet 600 mg 600 mg, Oral, | | 16 7:56 | | | | | EVERY 6 HOURS PRN, Pain, Starting | | AM PST | | | | | 10/15/16 at 1200, For 9 | | | | | | | doses, If urine output is less | | | | | | | than 240ml/8 hours (30ml/hr) or | | | | | | | if signs of bleeding, contact MD | | | | | | | and hold., Post-op/Phase II | | | | | | + +-------+ +--------+---+---+ +-------+ +--------+---+---+ | Given | 10/15/20 | 600 mg | | | | | 16 8:44 | | | | | | PM PST | | | | +-------+ +--------+---+---+ | Given | 10/15/20 | 600 mg | | | | | 16 2:23 | | | | | | PM PST | | | | +-------+ +--------+---+---+ +---+---+ | | | +---+---+ + +-------+ +-------+---+---+ | ketorolac (TORADOL) injection | Given | 10/15/20 | 30 mg | | | | 30 mg 30 mg, Intravenous, EVERY | | 16 8:21 | | | | | 6 HOURS (4 times per day), First | | AM PST | | | | | dose on Mon10/14/16 at 1430, For | | | | | | | 4 doses, If urine output is less | | | | | | | than 240ml/8 hours (30ml/hr) or | | | | | | | if signs of bleeding, contact MD | | | | | | | and hold., Post-op/Phase II | | | | | | + +-------+ +-------+---+---+ +-------+ +-------+---+---+ | Given | 10/15/20 | 30 mg | | | | | 16 2:36 | | | | | | AM PST | | | | +-------+ +-------+---+---+ | Given | 10/14/20 | 30 mg | | | | | 16 8:18 | | | | | | PM PST | | | | +-------+ +-------+---+---+ +---+---+ | | | +---+---+ + +---------+ +---+---+---+ | lactated ringers (LR) infusion | New Bag | 10/14/20 | | | | | at 125 mL/hr, Intravenous, | | 16 8:15 | | | | | CONTINUOUS, Starting Mon10/14/16 | | AM PST | | | | | at 0630, See anesthesiology order | | | | | | | for bolus, Pre-op | | | | | | + +---------+ +---+---+---+ +---------+ +---+-------+---+ | New Bag | 10/14/20 | | | | | | 16 7:41 | | | | | | AM PST | | | | +---------+ +---+-------+---+ | New Bag | 10/14/20 | | 125 | | | | 16 6:46 | | mL/hr | | | | AM PST | | | | +---------+ +---+-------+---+ +---+---+ | | | +---+---+ + +---------+ +---+-------+---+ | lactated ringers (LR) infusion | New Bag | 10/14/20 | | 125 | | | at 125 mL/hr, Intravenous, | | 16 12:37 | | mL/hr | | | CONTINUOUS, Starting Mon10/14/16 | | PM PST | | | | | at 1000, Discontinue IV fluid | | | | | | | when tolerating PO well, | | | | | | | | | | | | | + +---------+ +---+-------+---+ +---+---+ | | | +---+---+ + +-------+ +---+---+---+ | lanolin ointment Topical, PRN, | Given | 10/15/20 | | | | | Dry Skin, for moist wound | | 16 2:27 | | | | | healing, Starting Mon10/14/16 at | | PM PST | | | | | 0938, Apply to nipples. May keep | | | | | | | at bed side., | | | | | | + +-------+ +---+---+---+ +---+---+ | | | +---+---+ + +-------+ +---------+---+---+ | menthol (HALLS COUGH DROP) | Given | 10/15/20 | 1 | | | | lozenge 1 lozenge 1 lozenge, | | 16 11:30 | lozenge | | | | Buccal, EVERY 2 HOURS PRN, Sore | | AM PST | | | | | Throat, Starting 10/14/16 at | | | | | | | 2340 | | | | | | + +-------+ +---------+---+---+ +---+---+ | | | +---+---+ + +-------+ +-------+---+---+ | metoclopramide (REGLAN) 5 mg/mL | Given | 10/14/20 | 10 mg | | | | injection 10 mg 10 mg, | | 16 6:47 | | | | | Intravenous, ONCE, Mon10/14/16 at | | AM PST | | | | | 0630, For 1 dose, Protect from | | | | | | | light., Pre-op | | | | | | + +-------+ +-------+---+---+ +---+---+ | | | +---+---+ + +-------+ +-------+---+---+ | oxyCODONE (ROXICODONE) tablet | Given | 10/16/20 | 10 mg | | | | 5-10 mg 5-10 mg, Oral, EVERY 3 | | 16 10:26 | | | | | HOURS PRN, Pain, Starting Fri | | AM PST | | | | | 10/14/16 at 0937, First dose must | | | | [...] +-------+ +-------+---+---+ +-------+ +-------+---+---+ | Given | 10/16/20 | 5 mg | | | | | 16 6:26 | | | | | | AM PST | | | | +-------+ +-------+---+---+ | Given | 10/16/20 | 10 mg | | | | | 16 1:01 | | | | | | AM PST | | | | +-------+ +-------+---+---+ +---+---+ | | | +---+---+ + +---------+ + +-------+---+ | oxytocin in saline (PITOCIN) 30 | New Bag | 10/14/20 | 999 | 999 | | | units/500 mL (60 tamiko-units/mL) | | 16 9:23 | tamiko-un | mL/hr | | | infusion 0-999 tamiko-units/min | | AM PST | its/min | | | | (0-999 mL/hr), at 0-999 mL/hr, | | | | | | | Intravenous, CONTINUOUS PRN, to | | | | | | | control bleeding, Starting Fri | | | | | | | 10/14/16 at 0607, For 24 hours, | | | | | | | Stop if bleeding is controlled, | | | | | | | bladder not distended, Pre-op | | | | | | + +---------+ + +-------+---+ +---+---+ | | | +---+---+ + +-------+ + +---+---+ | 27-0.8 mg multivitamin | Given | 10/16/20 | 1 tablet | | | | 1 tablet 1 tablet, Oral, DAILY, | | 16 10:13 | | | | | First dose on Mon10/14/16 at | | AM PST | | | | | 1000, | | | | | | + +-------+ + +---+---+ +-------+ + +---+---+ | Given | 10/15/20 | 1 tablet | | | | | 16 10:06 | | | | | | AM PST | | | | +-------+ + +---+---+ +---+---+ | | | +---+---+ documented in this encounter
--- OUTSIDE RECORDS SUMMARY | ~2020-03-13 | XMS | Encounter Summary ---
Demographics + + + | Address | [address] | | | [place] [address] | + + + | Home Phone | | + + + | Preferred Language | Unknown | + + + | Marital Status | | + + + | Taoism Affiliation | Unknown | + + + | Race | Unknown | + + + | Ethnic Group | Unknown | + + + Author + + + | Author | [facility] | | | and [place] | + + + | Organization | [facility] | | | and [...] Team Providers + +------+ + | Care Tester Armature Or Fields Name | Role | Phone | + [...] Description | +--------+--------+ + + + | 11/08/ | Refill | [facility] [place] [facility] | Burton Masters, | Medication Refill | | 2019 | | [facility] [place] | [address] | | | | | [address] | [place] | | | | | [place] | [address] | | | | | [address] | | | | | | [phone] | | | +--------+--------+ + + + [...] [place] | | | | | | [address] | | | | | | | | +--------+ + + + + | 03/18/ | Office | Physical Medicine | Jovana Dawson | | | 2019 | Visit | and Rehabilitation | [address] | | | | | | [place] | | | | | | [address] [place] | | | | | | [address] | | | | | | | | +--------+ + + + + | 04/01/ | Appointment | Oncology | Deny Mcmanus, | | 2019 | | | MD Alan [address] | | | | | | [place] | | | | | | [place] [address] | | | | | | [phone] | | | | | | | | +--------+ + + + + | 04/08/ | Procedure | Physical Medicine | Leonard De Leon | | 2019 | visit | and Rehabilitation | T, MD Kiki [address] | | | | | | [place] | | | | | | [id number] | | | | | | | | +--------+ + + + + | 04/30/ | Office | Cardiology | Shad Saavedra, | | | 2019 | Visit | | MD Alan [address] | | | | | | [place], | | | | | | [place] [address] | | | | | | [phone] | | | | | | | | +--------+ + + + + documented as of this encounter Visit Diagnoses Not on filedocumented in this encounter"
--- OUTSIDE RECORDS SUMMARY | ~2020-03-13 | XMS | Encounter Summary ---
Demographics + + + | Address | [address] | | | [place] [address] | + + + | Home Phone | | + + + | Preferred Language | Unknown | + + + | Marital Status | | + + + | Holiness Affiliation | Unknown | + + + | Race | Unknown | + + + | Ethnic Group | Unknown | + + + Author + + + | Author | [facility] | | | and [place] | + + + | Organization | [facility] | | | and [...] Team Providers + +------+ + | Care Business Teacher Name | Role | Phone | + [...] Description | +--------+--------+ + + + | 12/02/ | Refill | [facility] [place] [facility] | Burton Masters, | Medication Refill | | 2020 | | [facility] [place] | [address] | | | | | [address] | [place] | | | | | [place] | [address] | | | | | [address] | | | | | | [phone] | | | +--------+--------+ + + + [...] [place] | | | | | | [address] | | | | | | | [...] [place] | | | | | | [address] | | | | | | | | +--------+ + + + + | 04/01/ | Appointment | Oncology | Deny Mcmanus, | | | 2019 | | | MD [address] | | | | | | [place] | | | | | | [place] [address] | | | | | | [phone] | | | | | | | | +--------+ + + + + | 04/08/ | Procedure | Physical Medicine | Leonard De Leon | | | 2019 | visit | and Rehabilitation | MD Kiki Win | | | | | | [place] | | | | | | [address] | | | | | | | | +--------+ + + + + | 04/30/ | Office | Cardiology | Shad Saavedra, | | | 2019 | Visit | | MD [address] | | | | | | [place], | | | | | | [place] [address] | | | | | | [phone] | | | | | | | | +--------+ + + + + documented as of this encounter Visit Diagnoses Not on filedocumented in this encounter"
--- OUTSIDE RECORDS SUMMARY | ~2020-03-13 | XMS | Encounter Summary ---
Demographics + + + | Address | [address] | | | [place] [address] | + + + | Home Phone | | + + + | Preferred Language | Unknown | + + + | Marital Status | | + + + | Mandaen Affiliation | Unknown | + + + | Race | Unknown | + + + | Ethnic Group | Unknown | + + + Author + + + | Author | [facility] | | | and [place] | + + + | Organization | [facility] | | [...] Team Providers + +------+ + | Care Cable Way Operator Name | Role | Phone | + +------+ + | Burton Masters MD | PCP | | + +------+ + Reason for Referral Diagnostic/Screening (Emergency) +--------+--------+ + + + + | Status | Reason | Specialty | Diagnoses / | Referred By | Referred To | | | | | Procedures | Contact | Contact | +--------+--------+ + + + + | Closed | | Radiology | Diagnoses | Sonam, | Nemo Mri | | | | | Back pain, | Burton Rizzo, | [address] | | | | | unspecified | [address] | [place], | | | | | back | [address] | [place] | | | | | location, | [place], | [address] | | | | | unspecified | [place] [address] | Phone: | | | | | back pain | Phone: | [phone] | | | | | laterality, | [phone] | Fax: | | | | | unspecified | Fax: | [phone] | | | | | chronicity | [phone] | | | | | | Foot-drop, | | | | | | | unspecified | | | | | | | laterality | | | | | | | Procedures | | | | | | | MRI Lumbar | | | | | | | Spine wo | | | | | | | Contrast | | | +--------+--------+ + + + + Reason for Visit + + + | Reason | Comments | + + + | Numbness | anterior right lower leg | + + + Encounter Details +--------+---------+ + + + | Date | Type | Department | Care Team | Description | +--------+---------+ + + + | 12/30/ | Office | [facility] | Burton Masters Matthias, | Back pain, | | 2020 | Visit | [facility] | [address] | unspecified back | | | | [address] | [place] | location, | | | | [place] | [address] | unspecified back | | | | [address] | | pain laterality, | | | | [phone] | | unspecified | | | | | | chronicity (Primary | | | | | | Dx); Foot-drop, | | | | | | unspecified | | | | | | laterality | +--------+---------+ + + + Social History [...] + + + | Blood Pressure | 102/84 | 12/30/2019 10:51 AM | | | | | PST | | + + + + + | Pulse | 66 | 12/30/2019 10:51 AM | | | | | PST | | + + + + + | Temperature | 36.4 C (97.6 F) | 12/30/2019 10:51 AM | | | | | PST | | + + + + + | Respiratory Rate | 16 | 12/30/2019 10:51 AM | | | | | PST | | + + + + + | Oxygen Saturation | 99% | 12/30/2019 10:51 AM | | | | | PST | | + + + + + | Inhaled Oxygen | - | - | | | Concentration | | | | + + + + + | Weight | 77.5 kg (170 lb 13.7 | 12/30/2019 10:51 AM | | | | oz) | PST | | + + + + + | Height | - | - | | + + + + + | Body Mass Index | 25.98 | 10/29/2019 8:45 AM | | | | | PST | | + + + + + documented in this encounter Progress Notes Burton Masters MD - 12/30/2019 11:00 AM PSTFormatting of this note might be different f rom the original. Subjective: Patient ID: Ashley Webb is a 34 y.o. female. Chief Complaint Patient presents with Numbness anterior right lower leg HPI Patient has had right foot drop for 6 weeks prior to mentioning it to anyone. She has clas sic symptoms and her tibialis anterior is atrophied. Informed her we will nee to get an mr i as soonas possible and there is risk this may not resolve. Past Medical History: Diagnosis Date Abdominal pain Abnormal vaginal bleeding Abscess of trunk Anxiety Bipolar disease, chronic ([facility]) Breast lump Chest pain, unspecified Chronic low back pain 04/16/2015 Chronic myeloid leukemia, BCR/ABL-positive, not having achieved remission ([facility]) 9 Cough DDD (degenerative disc disease), lumbar 04/16/2015 Depression Engorgement of breasts associated with childbirth, delivered Fatigue Female pelvic pain Fibromyalgia Flu Generalized anxiety disorder Headache Insomnia Knee pain Lumbar radiculopathy - left lower extremity 04/16/2015 Missed Mucocele of salivary gland Muscle spasm Obesity Palpitations Panic disorder Pulpitis Sciatica Shoulder pain SVT (supraventricular tachycardia) ([facility]) Tachycardia Tobacco use Family History Problem Relation [...] level: Not on file Occupational History 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 Neurological: Negative. Endo/Heme/Allergies: Negative. Psychiatric/Behavioral: Negative. . Objective: BP 102/84 | Pulse 66 | Temp 36.4 C (97.6 F) (Temporal) | Resp 16 | Wt 77.5 kg (170 lb 13.7 oz) | SpO2 99% | No | BMI 25.98 kg/m Physical Exam Constitutional: She is well-developed, well-nourished, and in no distress. HENT: Head: Normocephalic and atraumatic. Eyes: Right eye exhibits no discharge. Left eye exhibits no discharge. Neck: No tracheal deviation present. Cardiovascular: Regular rhythm. Pulmonary/Chest: Effort normal. No respiratory distress. Abdominal: She exhibits no distension. Musculoskeletal: General: No edema. Neurological: She is alert. She displays atrophy. r tibialis anterior Skin: Skin is dry. She is not diaphoretic. Psychiatric: Affect normal. Assessment/Plan: 1. Back pain, unspecified back location, unspecified back pain laterality, unspecified chronometer repairer nicity MRI Lumbar Spine wo Contrast 2. Foot-drop, unspecified laterality MRI Lumbar Spine wo Contrast Requested Prescriptions Signed Prescriptions Disp Refills lamoTRIgine (LAMICTAL) 25 mg tablet 90 tablet 1 Sig: Take 1 tablet by mouth Daily. Over 40 min spent in face to face time with this patient today. Over 50% of time regarding risks of permanent loss of muscle function from foot drop. documented in this encounter Plan of Treatment +--------+ + + + + | Date | Type | Specialty | Care Team | Description | +--------+ + + + + | 03/17/ | Virtual | Neurosurgery | Zuhair Flores | | | 2019 | Office | | MD [address] | | | | Visit | | [address] [facility] [address] | | | | | | [place] | | | | | | [phone] | | | | | | | | +--------+ + + + + | 03/18/ | Office | Physical Medicine | Jovana Dawson | | | 2019 | Visit | and Rehabilitation | MELANY Man [address] | | | | | | [address] [facility] | | | | | | [address] [place] | | | | | | [phone] | | | | | | | | +--------+ + + + + | 04/01/ | Appointment | Oncology | Deny Mcmanus, | | 2019 | | | MD [address] | | | | | | [address] [place] | | | | | | [place] [address] | | | | | | [phone] | | | | | | | | +--------+ + + + + | 04/08/ | Procedure | Physical Medicine | Leonard De Leon | | | 2019 | visit | and Rehabilitation | MD Audelia [address] | | | | | | [place] | | | | | | [address] | | | | | | | | +--------+ + + + + | 04/30/ | Office | Cardiology | Shad Saavedra, | | | 2019 | Visit | | [address] | | | | | | [place], | | | | | | [place] [address] | | | | | | [phone] | | | | | | | | +--------+ + + + + + +---------+--------+ + + | Name | Type | Priori | Associated Diagnoses | Order Schedule | | | | ty | | | + +---------+--------+ + + | MRI Lumbar Spine wo | Imaging | STAT | Back pain, | Expected: | | Contrast | | | unspecified back | 12/31/2019, Expires: | | | | | location, | 12/31/2020 | | | | | unspecified back | | | | | | pain laterality, | | | | | | unspecified | | | | | | chronicity | | | | | | Foot-drop, | | | | | | unspecified | | | | | | laterality | | + +---------+--------+ + + documented as of this encounter Visit Diagnoses + + | Diagnosis | + + | Back pain, unspecified back location, unspecified back pain laterality, unspecified | | chronicity - Primary | + + | Foot-drop, unspecified laterality | + + documented in this encounter"
--- OUTSIDE RECORDS SUMMARY | ~2020-03-13 | XMS | Encounter Summary ---
Demographics + + + | Address | [address] | | | [place] [address] | + + + | Home Phone [...] + + + | Author | [facility] | | | and [place] | + + + | Organization | [facility] | | | [...] Team Providers + +------+ + | Care Crate Builder Name | Role | Phone | + [...] | | | | | | | [place] | | | | | | | [...] + + + + | 10/14/ | Anesthesia | [facility] | Nadira Leal MD | | | 2016 | Event | [facility] | [address] | | | | | [address] | [place] | | | | | [place] | [address] | | | | | [address] | | | | | | [phone] | | | +--------+ + + + + Anesthesia Record + + + + + | Procedure Name | Responsible | Anesthesia Start | Anesthesia Stop Time | | | Anesthesiologist | Time | | + + + + + | Repeat | Nadira Leal MD | 10/14/1642 | 10/14/16 0846 | | (N/A Abdomen) | | | | + + + + + +----+---+ + + | Da | T | Event | Comment | | te | i | | | | | m | | | | | e | | | +----+---+ + + | 12 | 0 | | | | /0 | 7 | | | | 9/ | 2 | | | | 20 | 8 | | | | 16 | | | | +----+---+ + + | | 0 | An Checkout | Pre-use anesthesia machine/equipment checkout. | | | 7 | | | | | 4 | | | | | 2 | | | +----+---+ + + | | 0 | An Start | Reassessment prior to anesthesia induction/procedure. | | | 7 | | | | | 4 | | | | | 2 | | | +----+---+ + + | | 0 | Antibiotic | | | | 7 | Given | | | | 4 | | | | | 2 | | | +----+---+ + + | | 0 | Block Start | | | | 7 | | | | | 4 | | | | | 4 | | | +----+---+ + + | | 0 | AN Block | | | | 7 | End | | | | 5 | | | | | 2 | | | +----+---+ + + | | 0 | Epi/spinal | | | | 7 | Stop | | | | 5 | | | | | 2 | | | +----+---+ + + | | 0 | Surg Clmp | | | | 8 | Tst Neg | | | | 0 | | | | | 2 | | | +----+---+ + + | | 0 | First | | | | 8 | Inc/Proc St | | | | 0 | | | | | 3 | | | +----+---+ + + | | 0 | Baby Deliv | | | | 8 | | | | | 1 | | | | | 0 | | | +----+---+ + + | | 0 | an stop | | | | 8 | data | | | | 3 | | | | | 8 | | | +----+---+ + + | | 0 | An Stop | Patient handed off to recovery nurse. | | | 4 | | | | | 6 | | | +----+---+ + + +------+ | Meds | +------+ + + + | Name | Total | + + + | ondansetron | 4 mg | + + + | bupivacaine 0.75% (Intrathecal) | 10.5 mg | + + + | phenylephrine | 1,100 mcg | + + + | ketorolac | 30 mg | + + + | morphine (Epidural) | 200 mcg | + + + | ceFAZolin (ANCEF, KEFZOL) 2 g in | 2 g | | sodium chloride 0.9% 50 mL IVPB | | + + + | oxytocin in IV Bag | 145.83 mL | + + + | lactated ringers (LR) infusion | 1,600 mL | + + + + + | Name | + + | N2O Flow Rate (L/Min) | + + | O2 Flow Rate (L/Min) | + + | Insp O2 | + + | Air Flow Rate (L/Min) | + + + + | No blood administrations on file. | + + +--------+ + + + | Type | Details | Placement | Removal | +--------+ + + + | Periph | 10/14/16; 0644; Right; Posterior | 10/14/16 0644 by | 10/15/16 0000 by | | eral | (dorsal); Hand; [id number] | Stephanie Burroughs RN | Virginia Kline, | | IV | catheter system; 20 gauge; | | RN | | | Hematology, Blood Bank; 0; | | | | | distraction; 10/15/16 | | | +--------+ + + + | Urethr | 10/14/16; 0800; indicated due to | 10/14/16 0800 by | 10/15/16 0600 by | | al | specific surgical procedure; All | Winnie Loo RN | Jt Villela RN | | Cathet | elements; All elements; All | | | | er | elements; indwelling double lumen | | | | | catheter; latex; 14; None; 1; | | | | | 10; 10; other (see comments) | | | | | (anesthesia); leg bag to | | | | | dependent drainage; draining | | | | | clear, yellow urine; 10/15/16; | | | | | 0600 | | | +--------+ + + + | Read | 10/14/16; 823; abdomen; healing | 10/14/1624 by | 10/16/16 1251 by | | only - | within expectations; 10/16/16; | Winnie Loo RN | Jt Villela RN | | | 1251 | | | | Incisi | | | | | on | | | | +--------+ + + + documented in this encounter Social History + +-------+ +--------+------+ | Tobacco [...] [place] | | | | | | [id number] | | | | | | | | +--------+ + + + + | 03/18/ | Office | Physical Medicine | Jovana Dawson | | | 2019 | Visit | and Rehabilitation | MELANY Man [address] | | | | | | [address] [facility] | | | | | | [address] [place] | | | | | | [address] | | | | | | | | +--------+ + + + + | 04/01/ | Appointment | Oncology | Deny Mcmanus, | | | 2019 | | | [address] | | | | | | [address] [place] | | | | | | [place] [address] | | | | | | [phone] | | | | | | | | +--------+ + + + + | 04/08/ | Procedure | Physical Medicine | Leonard De Leon | | | 2019 | visit | and Rehabilitation | MD Audelia [address] | | | | | | [place] | | | | | | [address] | | | | | | | | +--------+ + + + + | 04/30/ | Office | Cardiology | Shad Saavedra, | | | 2019 | Visit | | [address] | | | | | | [place], | | | | | | [place] [address] | | | | | | [phone] | | | | | | | | +--------+ + + + + documented as of this encounter Procedures + +--------+ + + + | Procedure Name | Priori | Date/Time | Associated Diagnosis | Comments | | | ty | | | | + +--------+ + + + | ANE EPIDURAL NOTE | Routin | 10/14/2016 | | Results for this | | | e | 7:58 AM | | procedure are in the | | | | PST | | results section. | + +--------+ + + + documented in this encounter Results Anesthesia Epidural Note (10/14/2016 7:58 AM PST) + + + | Narrative | Performed At | + + + | Nadira Leal MD 10/14/2016 7:58 Neuraxial Procedure Note | | | 10/14/2016 7:44 Indication: surgical anesthesia Preprocedure | | | check: monitors applied, timeout performed, risks/benefits | | | discussed, procedure and rescue equipment checked, patient | | | identified, consent obtained, preevaluation including airway | | | assessment complete and reassessment prior to procedure Patient | | | position: sitting Preparation: chlorhexidine/isopropyl alcohol, | | | drape, 1% lidocaine infiltration, Introducer used: yes | | | Procedure level: L2-3 Approach: midline Needle: pencil-point Needle | | | size: 25 g Needle length: 3.5 in Medication administered through: | | | needle Negative findings: no paresthesia, no air aspirated and no | | | blood aspirated Positive findings: CSF aspirated Attempts: 2 Ease | | | of procedure: easy Performing provider: NADIRA LEAL Assisted by: | | | HERNAN MICHEL Comments: In OR, monitors placed, sitting SAB, | | | sterile prep, 1 percent lidocaine sq, midline times 2 L2-3, clear | | | CSF, free flow, 10.5 mg of hyperbaric bupivacaine injected with 200 | | | mcg of duramorph injected. Pt tolerated the procedure well, | | | without apparent complications. Please see anesthesia record or | | | flowsheet for vital sign documentation and see anesthesia record or | | | MAR for all medication documentation. Electronically Signed by: | | | MD Terrance Cordoba date/time: | | | 10/14/2016 7:55 | | + + + documented in this encounter Visit Diagnoses Not on filedocumented in this encounter Administered Medications + +--------+ +---------+------+------+ | Medication Order | MAR | Action | Dose | Rate | Site | | | Action | Date | | | | + +--------+ +---------+------+------+ | bupivacaine 0.75%-dextrose | Given | 10/14/20 | 10.5 mg | | | | 8.25% (MARCAINE SPINAL) injection | | 16 7:52 | | | | | INTRATHECAL, PRN, Starting Fri | | AM PST | | | | | 10/14/16 at 0752, Anesthesia | | | | | | | Intra-op | | | | | | + +--------+ +---------+------+------+ +---+---+ | | | +---+---+ + +---------+ +-----+---+---+ | ceFAZolin (ANCEF, KEFZOL) 2 g | New Bag | 10/14/20 | 2 g | | | | in sodium chloride 0.9% 50 mL | | 16 7:41 | | | | | IVPB 2 g, Intravenous, | | AM PST | | | | | Administer over 30 Minutes, Prior | | | | | | | to Incision, Starting Fri | | | | | | | 10/14/16 at 0607, For 1 dose, Give | | | | | | | within one hour prior to | | | | | | | incision., Pre-op, Indications: | | | | | | | Surgical Prophylaxis | | | | | | + +---------+ +-----+---+---+ +---+---+ | | | +---+---+ + +-------+ +-------+---+---+ | ketorolac (TORADOL) injection | Given | 10/14/20 | 30 mg | | | | Intravenous, PRN, Pain, Starting | | 16 8:37 | | | | | 10/14/16 at 0837, Anesthesia | | AM PST | | | | | Intra-op | | | | | | + +-------+ +-------+---+---+ +---+---+ | | | +---+---+ + +---------+ +---+---+---+ | lactated ringers (LR) infusion | New Bag | 10/14/20 | | | | | at 125 mL/hr, Intravenous, | | 16 8:15 | | | | | CONTINUOUS, Starting 10/14/16 | | AM PST | | | [...] | | +---+---+ + +-------+ +---------+---+---+ | morphine (PF) (DURAMORPH) 0.5 | Given | 10/14/20 | 200 mcg | | | | mg/mL injection EPIDURAL, PRN, | | 16 7:44 | | | | | Pain, Starting Mon10/14/16 at | | AM PST | | | | | 0744, Anesthesia Intra-op | | | | | | + +-------+ +---------+---+---+ +---+---+ | | | +---+---+ + +-------+ +------+---+---+ | ondansetron (ZOFRAN) injection | Given | 10/14/20 | 4 mg | | | | Intravenous, PRN, Nausea, | | 16 8:24 | | | | | Vomiting, Starting Mon10/14/16 at | | AM PST | | | | | 0824, Anesthesia Intra-op | | | | | | + +-------+ +------+---+---+ +---+---+ | | | +---+---+ + +---------+ +-------+-------+---+ | oxytocin in saline (PITOCIN) 30 | New Bag | 10/14/20 | 250 | 250 | | | units/500 mL (60 tamiko-units/mL) | | 16 8:11 | mL/hr | mL/hr | | | infusion Intravenous, | | AM PST | | | | | CONTINUOUS PRN, Starting Fri | | | | | | | 10/14/16 at 0811, Anesthesia | | | | | | | Intra-op | | | | | | + +---------+ +-------+-------+---+ +---+---+ | | | +---+---+ + +-------+ +---------+---+---+ | phenylephrine (NEW-SYNEPHRINE) | Given | 10/14/20 | 100 mcg | | | | 10 mg/mL injection Intravenous, | | 16 8:31 | | | | | PRN, Starting 10/14/16 at | | AM PST | | | | | 0759, Anesthesia Intra-op | | | | | | + +-------+ +---------+---+---+ +-------+ +---------+---+---+ | Given | 10/14/20 | 100 mcg | | | | | 16 8:26 | | | | | | AM PST | | | | +-------+ +---------+---+---+ | Given | 10/14/20 | 100 mcg | | | | | 16 8:23 | | | | | | AM PST | | | | +-------+ +---------+---+---+ +---+---+ | | | +---+---+ documented in this encounter"
--- OUTSIDE RECORDS SUMMARY | ~2020-03-13 | XMS | Encounter Summary ---
Demographics + + + | Address | [address] | | | [place] [address] | + + + | Home Phone | | + + + | Preferred Language | Unknown | + + + | Marital Status | | + + + | Restoration Affiliation | Unknown | + + + | Race | Unknown | + + + | Ethnic Group | Unknown | + + + Author + + + | Author | [facility] | | | and [place] | + + + | Organization | [facility] | | | [...] Team Providers + +------+ + | Care Mobility Engineer Name | Role | Phone | + +------+ + | Burton Masters MD | PCP | | + +------+ + Reason for Visit + + + | Reason | Comments | + + + | Pleuritic Chest Pain | | | (Adult) | | + + + Encounter Details +--------+ + + + + | Date | Type | Department | Care Team | Description | +--------+ + + + + | 04/16/ | Emergency | [facility] | Jorge Flowers MD | Chest pain, | | 2019 | | [facility] | [address] | unspecified type | | | | CENTER [address] | [place] | (Primary Dx) | | | | [place] | [address] | | | | | [address] | | | | | | [phone] | | | +--------+ + + + [...] + + + | Blood Pressure | 145/94 | 04/16/2019 2:15 PM | | | | | PDT | | + + + + + | Pulse | 73 | 04/16/2019 2:15 PM | | | | | PDT | | + + + + + | Temperature | 37 C (98.6 F) | 04/16/2019 12:04 PM | | | | | PDT | | + + + + + | Respiratory Rate | 14 | 04/16/2019 2:15 PM | | | | | PDT | | + + + + + | Oxygen Saturation | 96% | 04/16/2019 2:15 PM | | | | | PDT | | + + + + + | Inhaled Oxygen | - | - | | | Concentration | | | | + + + + + | Weight | 80.3 kg (177 lb) | 04/16/2019 12:04 PM | | | | | PDT | | + + + + + | Height | 172.7 cm (5' 8") | 04/16/2019 12:04 PM | | | | | PDT | | + + + + + | Body Mass Index | 26.91 | 04/16/2019 12:04 PM | | | | | PDT | | + + + + + documented in this encounter Discharge Instructions Instructions Shira Hewitt RN - 04/16/2019Pain medication as needed Return for worsening symptoms, not improving, other new complaint documented in this encounter Medications at Time [...] +---------+ + + | oxyCODONE | Take 1-2 tablets by | 12 | 0 | 04/16/20 | | | (ROXICODONE) 5 mg | mouth every 4 hours | tablet | | 19 | 9 | | tablet | as needed for Pain | | | | | | | for up to 3 days. | | | | | + + [...] | | Visit | | [address] | | | | | | [place] | | | | | | [address] | | | | | | | | +--------+ + + + + | 03/18/ | Office | Physical Medicine | Jovana Dawson | | | 2019 | Visit | and Rehabilitation | MELANY Man [address] | | | | | | [facility] | | | | | | [address] [place] | | | | | | [address] | | | | | | | | +--------+ + + + + | 04/01/ | Appointment | Oncology | Deny Mcmanus, | | | 2019 | | | [address] | | | | | | [place], | | | | | | [place] [address] | | | | | | [phone] | | | | | | | | +--------+ + + + + | 04/08/ | Procedure | Physical Medicine | Leonard De Leon | | | 2019 | visit | and Rehabilitation | T, [address] | | | | | | [place] | | | | | | [address] | | | | | | | | +--------+ + + + + | 04/30/ | Office | Cardiology | Shad Saavedra, | | | 2019 | Visit | | [address] | | | | | | [place], | | | | | | [place] [address] | | | | | | [phone] | | | | | | | | +--------+ + + + + + +---------+--------+ + + | Name | Type | Priori | Associated Diagnoses | Date/Time | | | | ty | | | + +---------+--------+ + + | US POC Chest Limited | Imaging | STAT | | 04/16/2019 12:29 PM | | | | | | PDT | + +---------+--------+ + + + +---------+--------+ + + | Name | Type | Priori | Associated Diagnoses | Order Schedule | | | | ty | | | + +---------+--------+ + + | US POC Chest Limited | Imaging | STAT | | One time imaging One | | | | | | time imaging for 1 | | | | | | Occurrences starting | | | | | | 04/16/2019 until | | | | | | 04/16/2019 | + +---------+--------+ + + documented as of this encounter Procedures + +--------+ + + + | Procedure Name | Priori | Date/Time | Associated Diagnosis | Comments | | | ty | | | | + +--------+ + + + | XR CHEST AP PORTABLE | STAT | 04/16/2019 | | Results for this | | | | 1:07 PM | | procedure are in the | | | | PDT | | results section. | + +--------+ + + + | EXTRA LAVKARMEN TOP | Routin | 04/16/2019 | | Results for this | | TUBE | e | 1:00 PM | | procedure are in the | | | | PDT | | results section. | + +--------+ + + + | CBC W/AUTO | STAT | 04/16/2019 | | Results for this | | DIFFERENTIAL | | 12:59 PM | | procedure are in the | | | | PDT | | results section. | + +--------+ + + + | TROPONIN I | STAT | 04/16/2019 | | Results for this | | | | 12:59 PM | | procedure are in the | | | | PDT | | results section. | + +--------+ + + + | D-DIMER | STAT | 04/16/2019 | | Results for this | | | | 12:59 PM | | procedure are in the | | | | PDT | | results section. | + +--------+ + + + | LIPASE | STAT | 04/16/2019 | | Results for this | | | | 12:59 PM | | procedure are in the | | | | PDT | | results section. | + +--------+ + + + | COMPREHENSIVE | STAT | 04/16/2019 | | Results for this | | METABOLIC PANEL | | 12:59 PM | | procedure are in the | | | | PDT | | results section. | + +--------+ + + + | US CHEST | STAT | 04/16/2019 | | Results for this | | | | 12:58 PM | | procedure are in the | | | | PDT | | results section. | + +--------+ + + + | ECG 12 LEAD | STAT | 04/16/2019 | | Results for this | | | | 12:31 PM | | procedure are in the | | | | PDT | | results section. | + +--------+ + + + documented in this encounter Results XR Chest AP Portable (04/16/2019 1:07 PM PDT) + + | Specimen | + + | | + + + + + | Narrative | Performed At | + + + | XR CHEST AP PORTABLE 04/16/2019 1:07 PM HISTORY: PLEURITIC CHEST | [facility] | | PAIN (ADULT). COMPARISON: Multiple priors. Findings: Heart | | | size is within normal limits. Aorta is normal. Mediastinum | | | demonstrates no acute findings. Central pulmonary vasculature is | | | normal. The bilateral lungs are clear with no evidence for pleural | | | effusion or pneumothorax. There are no acute osseous abnormalities. | | | IMPRESSION - No acute findings. Dictated and Signed by: Jeffrey | | | MD Cristopher Electronically signed: 04/16/2019 1:29 PM | | + + + + + | Procedure Note | + + | Ruben, Rad Results In - 04/16/2019 1:33 PM PDT XR CHEST AP PORTABLE 04/16/2019 1:07 PM | | | | HISTORY: PLEURITIC CHEST PAIN (ADULT). | | | | COMPARISON: Multiple priors. | | | | Findings: | | Heart size is within normal limits. Aorta is normal. Mediastinum demonstrates no | | acute findings. Central pulmonary vasculature is normal. The bilateral lungs are | | clear with no evidence for pleural effusion or pneumothorax. There are no acute | | osseous abnormalities. | | | | IMPRESSION - | | No acute findings. | | | | Dictated and Signed by: Jeffrey Nicholas MD | | Electronically signed: 04/16/2019 1:29 PM | + + + +---------+ + + | Performing | Address | City/State/Zipcode | Phone Number | | Organization | | | | + +---------+ + + | [facility] | | | | + +---------+ + + Extra Lavender Top Tube (04/16/2019 1:00 PM PDT) + +-------+ + + + | Component | Value | Ref Range | Performed | Pathologist | | | | | At | Signature | + +-------+ + + + | Extra | Done | | [facility] | | | Lavender | | | [facility] | | | Top Tube | [...] ST. | [address] | [place], [place] | [phone] | | [facility] | | [address] | | | - LABORATORY | | | | + + + + + D-Dimer (04/16/2019 12:59 PM PDT) + + + + + + | Component | Value | Ref Range | Performed | Pathologist | | | | | At | Signature | + + + + + + | D-Dimer | 0.37Comment: This | <=0.50 ug/mL | [facility] | | | Quantitativ | quantitative D-Dimer | FEU | [facility] | | | e | assay has been evaluated | | MEDICAL | | | | for screening for | | CENTER - | | | | venous thrombotic | | LABORATORY | | | | disease, and may be | | | | | | useful in ruling out, | | | | | | but not ruling in | | | | | | disease. Values less | | | | | | than 0.50 ug/mL FEU | | | | | | (Fibrinogen Equivalent | | | | | | Units) have a negative | | | | | | predictive value of | | | | | | approximately 95% for | | | | | | ruling out large | | | | | | pulmonary emboli or | | | | | | proximal deep vein | | | | | | thrombosis. Distal DVT | | | | | | are not excluded. An | | | | | | elevated D-dimer can be | | | | | | present in patients with | | | | | | liver disease, | | | | | | , eclampsia, | | | | | | heart disease and some | | | | | | cancers among other | | | | | | conditions. The presence | | | | | | of rheumatoid factor at | | | | | | a level >50 IU/mL may | | | | | | falsely elevate the | | | | | | determined D-dimer | | | | | | levels. | | | | + + + + + + + + | Specimen | + + | Blood | + + + + + + + | Performing | Address | City/State/Zipcode | Phone Number | | Organization | | | | + + + + + | [facility] | [address] | [place], [place] | [phone] | | [facility] | | [address] | | | - LABORATORY | | | | + + + + + Lipase (04/16/2019 12:59 PM PDT) + +---------+ + + + | Component | Value | Ref Range | Performed | Pathologist | | | | | At | Signature | + +---------+ + + + | Lipase | 174 (H) | 12 - 53 U/L | [facility] | | | | | [...] [address] | [place] | [phone] | | [facility] | | [address] | | | - LABORATORY | | | | + + + + + Troponin I (04/16/2019 12:59 PM PDT) + + + + + + | Component | Value | Ref Range | Performed | Pathologist | | | | | At | Signature | + + + + + + | Troponin I | <0.01Comment: | <0.06 ng/mL | [facility] | | | | Comment:Reference | | [facility] | | | | Ranges: 0.00-0.06 = | | MEDICAL | | | | NORMAL >0.06 = | | CENTER - | | | | SUSPICIOUS FOR | | LABORATORY | | | | MYOCARDIAL DAMAGE NOTE: | | | | | | Values greater than | | | | | | 0.78 ng/mL have been | | | | | | shown to be strongly | | | | | | associated with acute | | | | | | myocardial infarction. | | | | | | The [employer] | | | | | | Cardiology (ACC) | | | | | | recommends a decision | | | | | | limit of 0.06 ng/mL for | | | | | | this assay. Results | | | | | | greater than 0.06 can | | | | | | reflect a pre-infarct | | | | | | acute coronary syndrome, | | | | | | but can also reflect | | | | | | myocardial necrosis or | | | | | | injury that is not due | | | | | | to coronary artery | | | | | | disease. Some of these | | | | | | causes are sepsis, | | | | | | hypocolemia, atrial | | | | | | fibrillation, heart | | | | | | failure, pulmonary | | | | | | embolism, myocarditis, | | | | | | myocardial contusion, | | | | | | and renal failure. The | | | | | | diagnosis of myocardial | | | | | | infarction should be | | | | | | based on a combination | | | | | | of the patient's | | | | | | clinical presentation | | | | | | and the clinical | | | | | | laboratory test results | | | | | | (especially serial | | | | | | troponin levels). | | | | + + + + + + + + | Specimen | + + | Blood | + + + + + + + | Performing | Address | City/State/Zipcode | Phone Number | | Organization | | | | + + + + + | [facility] | [address] | [place] | [phone] | | [facility] | | [address] | | | - LABORATORY | | | | + + + + + Comprehensive Metabolic Panel (04/16/2019 12:59 PM PDT) + + + + + + | Component | Value | Ref Range | Performed | Pathologist | | | | | At | Signature | + + + + + + | Na | 138 | 136 - 145 | [facility] | | | | | mmol/L | [facility] | | | | | | MEDICAL | | | | | | CENTER - | | | | | | LABORATORY | | + + + + + + | K | 3.3 (L) | 3.4 - 5.1 | [facility] | [...] + + + + | CO2 | 23 | 20 - 31 mmol/L | [facility] | | | | | | [facility] | | | | | | MEDICAL | | | | | | CENTER - | | | | | | LABORATORY | | + + + + + + | Anion Gap | 4 | 3 - 16 mmol/L | [facility] | | | | | | [facility] | | | | | | MEDICAL | | | | | | CENTER - | | | | | | LABORATORY | | + + + + + + | Glucose | 85 | 60 - 106 mg/dL | [facility] | | | | | | [facility] | | | | | | MEDICAL | | | | | | CENTER - | | | | | | LABORATORY | | + + + + + + | BUN | 6 (L) | 9 - 23 mg/dL | [facility] | | | | | | [facility] | | | | | | MEDICAL | | | | | | CENTER - | | | | | | LABORATORY | | + + + + + + | Creatinine | 0.68 | 0.55 - 1.02 | [facility] | | | | | mg/dL | [facility] | | | | | | MEDICAL | | | | | | CENTER - | | | | | | LABORATORY | | + + + + + + | eGFR if not | >60Comment: GLOMERULAR | >=60 | [facility] | | | | FILTRATION | mL/min/1.73m2 | [facility] | | | ICELANDIC | RATE,ESTIMATED | | MEDICAL | | | | mL/min/1.38c2Dbbm than | | CENTER - | | [...] + + + + | Calcium | 8.6 (L) | 8.7 - 10.4 | [facility] | | | | | mg/dL | [facility] | | | | | | MEDICAL | | | | | | CENTER - | | | | | | LABORATORY | | + + + + + + | Albumin | 3.8 | 3.2 - 4.8 g/dL | [facility] | | | | | | [facility] | | | | | | MEDICAL | | | | | | CENTER - | | | | | | LABORATORY | | + + + + + + | Bilirubin | 0.4 | 0.3 - 1.2 mg/dL | [facility] | | | Total | | | [facility] | | | | | | MEDICAL | | | | | | CENTER - | | | | | | LABORATORY | | + + + + + + | Total | 5.9 | 5.7 - 8.2 g/dL | [facility] | | | Protein | | | [facility] | | | | | | MEDICAL | | | | | | CENTER - | | | | | | LABORATORY | | + + + + + + | AST | 33 | 0 - 34 U/L | [facility] | | | | | | [facility] | | | | | | MEDICAL | | | | | | CENTER - | | | | | | LABORATORY | | + + + + + + | ALT | 25 | 10 - 49 U/L | [facility] | | | | | | [facility] | | | | | | MEDICAL | | | | | | CENTER - | | | | | | LABORATORY | | + + + + + + | Alkaline | 86 | 46 - 116 U/L | [facility] | | | Phosphatase | | | [facility] | | | | | | MEDICAL | | | | | | CENTER - | | | | | | LABORATORY | | + + + + + + | Globulin | 2.1 | 2.1 - 3.8 g/dL | [facility] | | | | | | [facility] | | | | | | MEDICAL | | | | | | CENTER - | | | | | | LABORATORY | | + + + + + + | Albumin/Simona | 1.8 | 0.8 - 1.9 | [facility] | | | bulin Ratio | | | [facility] | | | | | | MEDICAL | | | | | | CENTER - | | | | | | LABORATORY | | + + + + + + | BUN/Creatin | 8.8 | | [facility] | | | ine [...] [address] | [place] | [phone] | | [facility] | | [address] | | | - LABORATORY | | | | + + + + + CBC w/ Auto Differential (04/16/2019 12:59 PM PDT) + + + + + + | Component | Value | Ref Range | Performed | Pathologist | | | | | At | Signature | + + + + + + | WBC | 4.1 | 4.0 - 11.0 K/uL | [facility] | | | | | | [facility] | | | | | | MEDICAL | | | | | | CENTER - | | | | | | LABORATORY | | + + + + + + | RBC | 4.14 | 3.70 - 5.20 | [facility] | | | | | M/uL | [facility] | | | | | | MEDICAL | | | | | | CENTER - | | | | | | LABORATORY | | + + + + + + | Hemoglobin | 13.3 | 11.5 - 16.0 | [facility] | | | | | g/dL | [facility] | | | | | | MEDICAL | | | | | | CENTER - | | | | | | LABORATORY | | + + + + + + | Hematocrit | 38.8 | 34.0 - 47.0 % | [facility] | | | | | | [facility] | | | | | | MEDICAL | | | | | | CENTER - | | | | | | LABORATORY | | + + + + + + | MCV | 93.7 | 83.0 - 101.0 fL | [facility] | | | | | | [facility] | | | | | | MEDICAL | | | | | | CENTER - | | | | | | LABORATORY | | + + + + + + | MCH | 32.1 | 28.0 - 35.0 pg | [facility] | | | | | | [facility] | | | | | | MEDICAL | | | | | | CENTER - | | | | | | LABORATORY | | + + + + + + | MCHC | 34.3 | 32.0 - 36.0 | [facility] | | | | | g/dL | [facility] | | | | | | MEDICAL | | | | | | CENTER - | | | | | | LABORATORY | | + + + + + + | RDW-CV | 14.8 | <15.0 % | [facility] | | | | | | [facility] | | | | | | MEDICAL | | | | | | CENTER - | | | | | | LABORATORY | | + + + + + + | RDW-SD | 50.8 (H) | 35.1 - 46.3 fL | [facility] | | | | | | [facility] | | | | | | MEDICAL | | | | | | CENTER - | | | | | | LABORATORY | | + + + + + + | Platelet | 88 (L) | 140 - 440 K/uL | [facility] | | | Count | | | [facility] | | | | | | MEDICAL | | | | | | CENTER - | | | | | | LABORATORY | | + + + + + + | MPV | 9.8 | 6.5 - 12.4 fL | [facility] | | | | | | [facility] | | | | | | MEDICAL | | | | | | CENTER - | | | | | | LABORATORY | | + + + + + + | % | 36.0 (L) | 45.0 - 82.0 % | [facility] | | | Neutrophils | | | [facility] | | | | | | MEDICAL | | | | | | CENTER - | | | | | | LABORATORY | | + + + + + + | % | 54.1 (H) | 20.0 - 45.0 % | [facility] | | | Lymphocytes | | | [facility] | | | | | | MEDICAL | | | | | | CENTER - | | | | | | LABORATORY | | + + + + + + | % Monocytes | 7.9 | 4.0 - 12.0 % | [facility] [...] + + + | % Basophils | 0.5 | 0.0 - 1.0 % | [facility] | | | | | | [facility] | | | | | | MEDICAL | | | | | | CENTER - | | | | | | LABORATORY | | + + + + + + | % Immature | 0.5 (H)Comment: | 0.0 - 0.4 % | [facility] | | | Granulocyte | Preliminary studies have | | [facility] | | | s | indicated the IG% | | MEDICAL | | | | and/or IG# show promise | | CENTER - | | | | as an early indicator | | LABORATORY | | | | for infection. For | | | | | | patients, use | | | | | | the special reference | | | | | | ranges listed below. | | | | + + + + + + | Absolute | 1.47 (L) | 1.80 - 8.50 | [facility] | | | Neutrophils | | K/uL | [facility] | | | | | | MEDICAL | | | | | | CENTER - | | | | | | LABORATORY | | + + + + + + | Absolute | 2.20 | 0.60 - 3.20 | [facility] | | | Lymphocytes | | K/uL | [facility] | | | | | | MEDICAL | | | | | | CENTER - | | | | | | LABORATORY | | + + + + + + | Absolute | 0.32 | 0.00 - 1.00 | [facility] | | | Monocytes | | K/uL | [facility] | | | | | | MEDICAL | | | | | | CENTER - | | | | | | LABORATORY | | + + + + + + | Absolute | 0.04 | 0.00 - 0.40 | [facility] | | | Eosinophils | | K/uL | [facility] | | | | | | MEDICAL | | | | | | CENTER - | | | | | | LABORATORY | | + + + + + + | Absolute | 0.02 | 0.00 - 0.10 | [facility] | [...] | nRBC | | K/uL | [facility] | [...] 0.003-0.091 K/uL 0.0-0.9% 2nd 0.007-0.247 K/uL | [facility] | | 0.1-2.0% 3rd 0.018-0.456 K/uL 0.1-2.0% | - LABORATORY | + + + + + + + + | Performing | Address | City/State/Zipcode | Phone Number | | Organization | | | | + + + + + | [facility] | [address] | [place] | [phone] | | [facility] | | [address] | | | - LABORATORY | | | | + + + + + US Chest (04/16/2019 12:58 PM PDT) + + | Specimen | + + | | + + + + + | Narrative | Performed At | + + + | TECHNIQUE: Targeted chest B-mode ultrasound with color Doppler | [facility] | | CLINICAL INFORMATION: Limited to pericardial effusion. | | | COMPARISON: Chest radiograph obtained same day and 03/05/2019. | | | FINDINGS: No sonographic findings to suggest a pericardial | | | effusion. Very limited visualization of the heart. No evidence | | | of a mass lesion or abnormal fluid collection. IMPRESSION - No | | | sonographic evidence of a pericardial effusion. Notification: | | | A preliminary report was relayed to the ordering provider by the | | | genetic technologist immediately following the exam. Dictated | | | and Signed by: Tyshawn Newton MD Electronically signed: 04/16/2019 | | | 1:16 PM | | + + + + + | Procedure Note | + + | Ruben, Rad Results In - 04/16/2019 1:19 PM PDT | | TECHNIQUE: Targeted chest B-mode ultrasound with color Doppler | | | | CLINICAL INFORMATION: Limited to pericardial effusion. | | | | COMPARISON: Chest radiograph obtained same day and 03/05/2019. | | | | FINDINGS: | | | | No sonographic findings to suggest a pericardial effusion. | | | | Very limited visualization of the heart. No evidence of a mass lesion or | | abnormal fluid collection. | | | | | | IMPRESSION - No sonographic evidence of a pericardial effusion. | | | | Notification: A preliminary report was relayed to the ordering provider by the | | genetic technologist immediately following the exam. | | | | Dictated and Signed by: Tyshawn Newton MD | | Electronically signed: 04/16/2019 1:16 PM | + + + +---------+ + + | Performing | Address | City/State/Zipcode | Phone Number | | Organization | | | | + +---------+ + + | [facility] | | | | + +---------+ + + ECG 12 lead (04/16/2019 12:31 PM PDT) + + + + + + | Component | Value | Ref Range | Performed | Pathologist | | | | | At | Signature | + + + + + + | VENTRICULAR | 77 | BPM | [facility] | | | RATE EKG | | | | | + + + + + + | ATRIAL RATE | 83 | BPM | [facility] | | + + + + + + | P-R | 116 | ms | [facility] | | | INTERVAL | | | | | + + + + + + | QRS | 88 | ms | [facility] | | | DURATION | | | | | + + + + + + | Q-T | 382 | ms | [facility] | | | INTERVAL | | | | | + + + + + + | Q-T | 432 | ms | [facility] | | | INTERVAL | | | | | | (CORRECTED) | | | | | + + + + + + | P WAVE AXIS | 59 | degrees | [facility] | | + + + + + + | QRS AXIS | 72 | degrees | [facility] | | + + + + + + | T AXIS | 50 | degrees | [facility] | | + + + + + + | INTERPRETAT | Normal sinus rhythm with | | [facility] | | | ION TEXT | sinus arrhythmiaShort | | | | | | TN intervalWhen compared | | | | | | with ECG of 05-MAR-2019 | | | | | | 19:09,TN interval has | | | | | | decreasedConfirmed by | | | | | | MARIANO HENRY MD ([id number]) | | | | | | on 04/17/2019 5:50:44 AM | | | | + + + + + + + + | Specimen | + + | | + + + + + | Narrative | Performed At | + + + | | | + + + + +---------+ + + | Performing | Address | City/State/Zipcode | Phone Number | | Organization | | | | + +---------+ + + | [facility] | | | | + +---------+ + + documented in this encounter Visit Diagnoses + + | Diagnosis | + + | Chest pain, unspecified type - Primary | + + documented in this encounter Administered Medications + +--------+ +--------+------+------+ | Medication Order | MAR | Action | Dose | Rate | Site | | | Action | Date | | | | + +--------+ +--------+------+------+ | HYDROmorphone (DILAUDID) | Given | 04/16/20 | 0.5 mg | | | | injection 0.5 mg 0.5 mg, | | 19 12:56 | | | | | Intravenous, ONCE, 04/16/19 at | | PM PDT | | | | | 1220, For 1 dose | | | | | | + +--------+ +--------+------+------+ +---+---+ | | | +---+---+ + +-------+ +------+---+---+ | HYDROmorphone (DILAUDID) | Given | 04/16/20 | 1 mg | | | | injection 1 mg 1 mg, | | 19 1:33 | | | | | Intravenous, ONCE, 04/16/19 at | | PM PDT | | | | | 1330, For 1 dose | | | | | | + +-------+ +------+---+---+ +---+---+ | | | +---+---+ + +-------+ +------+---+---+ | ondansetron (ZOFRAN) injection | Given | 04/16/20 | 4 mg | | | | 4 mg 4 mg, Intravenous, ONCE, | | 19 12:54 | | | | | 04/16/19 at 1220, For 1 dose | | PM PDT | | | | + +-------+ +------+---+---+ +---+---+ | | | +---+---+ documented in this encounter
--- OUTSIDE RECORDS SUMMARY | ~2020-03-13 | XMS | Encounter Summary ---
Demographics + + + | Address | [address] | | | [place] [address] | + + + | Home Phone | | + + + | Preferred Language | Unknown | + + + | Marital Status | | + + + | Muslim Affiliation | Unknown | + + + | Race | Unknown | + + + | Ethnic Group | Unknown | + + + Author + + + | Author | [facility] | | | and [place] | + + + | Organization | [facility] | | | [...] Team Providers + +------+ + | Care Party Host/Hostess Name | Role | Phone | + +------+ + | Burton Masters MD | PCP | | + +------+ + Reason for Visit + + + | Reason | Comments | + + + | Care | | + + + Encounter Details +--------+ + + + + | Date | Type | Department | Care Team | Description | +--------+ + + + + | 02/19/ | Telephone | [facility] | Sofia Castro RN | Care | | 2018 | | MED [facility] | | | | | | PROCEDURES [address] | | | | | | [place], | | | | | | [place] [address] | | | | | | [phone] | | | +--------+ + + + [...] [place] | | | | | | [address] | | | | | | | | +--------+ + + + + | 03/18/ | Office | Physical Medicine | Jovana Dawson | | 2019 | Visit | and Rehabilitation | MELANY Man [address] | | | | | | [facility] | | | | | | [address] [place] | | | | | | [address] | | | | | | | | +--------+ + + + + | 04/01/ | Appointment | Oncology | Deny Mcmanus, | | | 2019 | | | [address] | | | | | | [place] | | | | | | [place] [address] | | | | | | [phone] | | | | | | | | +--------+ + + + + | 04/08/ | Procedure | Physical Medicine | Leonard De Leon | | | 2019 | visit | and Rehabilitation | MD Audelia [address] | | | | | | [place] | | | | | | [address] | | | | | | | | +--------+ + + + + | 04/30/ | Office | Cardiology | Shad Saavedra, | | | 2019 | Visit | | [address] | | | | | | [place], | | | | | | [place] [address] | | | | | | [phone] | | | | | | | | +--------+ + + + + documented as of this encounter Visit Diagnoses Not on filedocumented in this encounter"
--- OUTSIDE RECORDS SUMMARY | ~2020-03-13 | XMS | Encounter Summary ---
Demographics + + + | Address | [address] | | | [place] [address] | + + + | Home Phone | | + + + | Preferred Language | Unknown | + + + | Marital Status | | + + + | Mormon Affiliation | Unknown | + + + | Race | Unknown | + + + | Ethnic Group | Unknown | + + + Author + + + | Author | [facility] | | | and [place] | + + + | Organization | [facility] | | | [...] Team Providers + +------+ + | Care General Teller Name | Role | Phone | + [...] Description | +--------+--------+ + + + | 04/09/ | Refill | [facility] | Deny Mcmanus, | Medication Refill | | 2019 | | MED CTR MED[facility] | [address] | | | | | [facility] [address] [place], | | | | | [place] | [place] [address] | | | | | [place] [address] | [phone] | | | | | [phone] | | | +--------+--------+ + + + [...] | | | Visit | | [facility] | | | | | | [place] | | | | | | [id number] | | | | | | | | +--------+ + + + + | 03/18/ | Office | Physical Medicine | Jovana Dawson | | 2019 | Visit | and Rehabilitation | MELANY Man [address] | | | | | | [facility] | | | | | | [address] [place] | | | | | | [address] | | | | | | | | +--------+ + + + + | 04/01/ | Appointment | Oncology | Deny Mcmanus, | | 2019 | | | MD [address] | | | | | | [address] [place] | | | | | | [place] [address] | | | | | | [phone] | | | | | | | | +--------+ + + + + | 04/08/ | Procedure | Physical Medicine | Leonard De Leon | | | 2019 | visit | and Rehabilitation | MD Kiki Win | | | | | | [facility] [place] | | | | | | [address] | | | | | | | | +--------+ + + + + | 04/30/ | Office | Cardiology | Shad Saavedra, | | | 2019 | Visit | | MD [address] | | | | | | [place] | | | | | | [place] [address] | | | | | | [phone] | | | | | | | | +--------+ + + + + documented as of this encounter Visit Diagnoses + + | Diagnosis | + + | Chronic myeloid leukemia, BCR/ABL-positive, not having achieved remission (HCC) | | Chronic myeloid leukemia, without mention of having achieved remission | + + documented in this encounter"
--- OUTSIDE RECORDS SUMMARY | ~2020-03-13 | XMS | Encounter Summary ---
Demographics + + + | Address | [address] | | | [place] [address] | + + + | Home Phone [...] Team Providers + +------+ + | Care Cartographic Drafter Name | Role | Phone | + +------+ + | Burton Masters MD | PCP | | + +------+ + Reason for Visit + + + | Reason | Comments | + + + | Medication Orders | | + + + Encounter Details +--------+ + + + + | Date | Type | Department | Care Team | Description | +--------+ + + + + | 05/31/ | Telephone | [facility] | Burton Masters, | Medication Orders | | 2019 | | [facility] [place] | [address] | | | | | [address] | [place] | | | | | [place] | [address] | | | | | [address] | | | | | | [phone] | | | +--------+ + + + [...] | | | Visit | | [facility] [address] | | | | | [...] | | | [facility] | | | | | | [address] [place] | | | | | | [id number] | | | | | | | | +--------+ + + + + | 04/01/ | Appointment | Oncology | Deny Mcmanus, | | 2019 | | | [address] | | | | | | [address] [place] | | | | | | [place] [address] | | | | | | [phone] | | | | | | | | +--------+ + + + + | 04/08/ | Procedure | Physical Medicine | Leonard De Leon | | | 2019 | visit | and Rehabilitation | MD Kiki Win | | | | | | [place] | | | | | | [address] | | | | | | | | +--------+ + + + + | 04/30/ | Office | Cardiology | Shad Saavedra, | | | 2019 | Visit | | MD [address] | | | | | | [place] | | | | | | [place] [address] | | | | | | [phone] | | | | | | | | +--------+ + + + + documented as of this encounter Visit Diagnoses Not on filedocumented in this encounter"
--- OUTSIDE RECORDS SUMMARY | ~2020-03-13 | XMS | Encounter Summary ---
Demographics + + + | Address | [address] | | | [place] [address] | + + + | Home Phone | | + + + | Preferred Language | Unknown | + + + | Marital Status | | + + + | Christianity Affiliation | Unknown | + + + | Race | Unknown | + + + | Ethnic Group | Unknown | + + + Author + + + | Author | [facility] | | | and [place] | + + + | Organization | [facility] | | | [...] Team Providers + +------+ + | Care Central Sterile Tech Name | Role | Phone | + +------+ + | Bruton Masters MD | PCP | | + +------+ + Reason for Visit + + + | Reason | Comments | + + + | Cough | started yesterday | + + + | Nasal Congestion | | + + + | Headache | | + + + Encounter Details +--------+---------+ + + + | Date | Type | Department | Care Team | Description | +--------+---------+ + + + | 07/30/ | Office | [facility] | Blood, Cindy | Recurrent acute | | 2018 | Visit | [facility] [address] | [address] | suppurative otitis | | | | [address] | [address] [place] | media with | | | | [address] [facility] | [place] [address] | spontaneous rupture | | | | [place] [address] | [phone] | of both tympanic | | | | [phone] | | membranes (Primary | | | | | | [...] + + + | Blood Pressure | 128/90 | 07/30/2018 11:06 AM | | | | | PDT | | + + + + + | Pulse | 106 | 07/30/2018 11:06 AM | | | | | PDT | | + + + + + | Temperature | 36.7 C (98 F) | 07/30/2018 11:06 AM | | | | | PDT | | + + + + + | Respiratory Rate | 18 | 07/30/2018 11:06 AM | | | | | PDT | | + + + + + | Oxygen Saturation | 98% | 07/30/2018 11:06 AM | | | | | PDT | | + + + + + | Inhaled Oxygen | - | - | | | Concentration | | | | + + + + + | Weight | 97.5 kg (215 lb) | 07/30/2018 11:06 AM | | | | | PDT | | + + + + + | Height | 172.7 cm (5' 8") | 07/30/2018 11:06 AM | | | | | PDT | | + + + + + | Body Mass Index | 32.69 | 07/30/2018 11:06 AM | | | | | PDT | | + + + + + documented in this encounter Patient Instructions Patient Instructions Blood, Cindy Lola, [employer]ATIONSHIP MANAGER - 07/30/2018 11:28 AM PDT Middle Ear Infection (Adult) You have an infection of the middle ear, the space behind the eardrum. This is also called acute otitis media (AOM). Sometimes it is caused by the common cold. This is because congest ion can block the internal passage (eustachian tube) that drains fluid from the middle ear. When the middle ear fills with fluid, bacteria can grow there and cause an infection. Oral a ntibiotics are used to treat this illness, not ear drops. Symptoms usually start to improve within 1 to 2 days of treatment. Home care The following are general care guidelines: Finish all of the antibiotic medicine given, even though you may feel better after the f irst few days. You may use zqct-aze-fhuslnd medicine, such as acetaminophen or ibuprofen, to control pa in and fever, unless something else was prescribed. If you have chronic liver or kidney dise ase or have ever had a stomach ulcer or gastrointestinal bleeding, talk with your healthcare provider before using these medicines. Do not give aspirin to anyone under 18 years of age who has a fever. It may cause severe illness or . Follow-up care Follow up with your healthcare provider, or as advised, in 2 weeks if all symptoms have not gotten better, or if hearing doesn't go back to normal within 1 month. When to seek medical advice Call your healthcare provider right away if any of these occur: Ear pain gets worse or does not improve after 3 days of treatment Unusual drowsiness or confusion Neck pain, stiff neck, or headache Fluid or blood draining from the ear canal Fever of 100.4F (38C) or as advised Seizure Date Last Reviewed: 04/06/201619995157-1804 [employer]. [address] [place] [id number]. All righ ts reserved. This information is not intended as a substitute for professional medical care. Always follow your healthcare professional's instructions. documented in this encounter Progress Notes Cindy Christian ARNP - 07/30/2018 11:20 AM PDTFormatting of this note might be dif ferent from the original. Subjective: Ashley Webb is a 33 y.o. female who presents to the clinic with a complaint of Co ugh (started yesterday); Nasal Congestion; and Headache Cough This is a new problem. The current episode started yesterday. The problem has been rapidly worsening. The problem occurs constantly. The cough is productive of purulent sputum. Associ ated symptoms include chills, ear congestion, myalgias, nasal congestion, postnasal drip, sw eats and wheezing. Pertinent negatives include no shortness of breath. The symptoms are aggr avated by lying down. Treatments tried: mary selzer cold and flu. The treatment provided no relief. No Known Allergies Medications: Patient Reported Taking Dosage ALPRAZolam (XANAX) 0.25 mg tablet (Taking) Take 1-2 tablets by mouth Twice daily as need ed for Anxiety. Number of times this order has been changed since signin Order Audit [place] buPROPion (WELLBUTRIN) 100 mg tablet (Taking) Take 2 tablets by mouth 2 times daily. Number of times this order has been changed since signin Order Audit [place] HYDROcodone-acetaminophen (NORCO) 5-325 mg per tablet (Taking) Take 1 tablet by mouth ayesha ry 8 hours as needed for Pain. Number of times this order has been changed since signin Order Audit [place] Past Medical History She has a past medical history of Abdominal pain; Abnormal vaginal bleeding; Abscess of darion nk; Anxiety; Bipolar disease, chronic (HCC); Breast lump; Chest pain, unspecified; Chronic l ow back pain (04/16/2015); Cough; DDD (degenerative disc disease), lumbar (04/16/2015); Depres rachell; Engorgement of breasts associated with childbirth, delivered; Fatigue; Female pelvic p ain; Fibromyalgia; Flu; Generalized anxiety disorder; Headache; Insomnia; Knee pain; Lumbar radiculopathy - left lower extremity (04/16/2015); Missed ; Mucocele of salivary glan d; Muscle spasm; Obesity; Palpitations; Panic disorder; Pulpitis; Sciatica; Shoulder pain; T achycardia; and Tobacco use. Past Surgical History She has a past surgical history that includes section (02/05/2010); Dilation and c urettage of uterus (05/13/2015); section (N/A, 10/14/2016); Breast cyst aspiration ([place]); shoulder surgery (08/2014); section (N/A, 01/16/2018); and Tubal ligation (01/04). Social History Substance Use Topics Smoking status: Current Every Day Smoker Packs/day: 0.25 Years: 16.00 Types: Cigarettes Start date: 03/03/2001 Smokeless tobacco: Never Used Alcohol use 0.0 oz/week Comment: RARE Review of Systems Constitutional: Positive for chills. HENT: Positive for postnasal drip. Eyes: Negative. Respiratory: Positive for wheezing. Negative for shortness of breath. Cardiovascular: Negative. Gastrointestinal: Negative. Endocrine: Negative. Genitourinary: Negative. Musculoskeletal: Positive for myalgias. Skin: Negative. Allergic/Immunologic: Negative. Hematological: Negative. Psychiatric/Behavioral: Negative. See HPI Objective: Vitals: 07/30/18 1106 BP: 128/90 Pulse: 106 Resp: 18 Temp: 36.7 C (98 F) TempSrc: Temporal SpO2: 98% Weight: 97.5 kg (215 lb) Height: 1.727 m (5' 8") Patient's last menstrual period was 07/23/2018. Physical Exam Constitutional: She is oriented to person, place, and time. Vital signs are normal. She maggie ears well-developed and well-nourished. She is cooperative. HENT: Head: Normocephalic and atraumatic. Right Ear: Hearing, external ear and ear canal normal. Tympanic membrane is bulging. A midd le ear effusion (sanguineous fluid present) is present. Left Ear: Hearing, external ear and ear canal normal. Tympanic membrane is bulging. A middl e ear effusion (mucoid) is present. Nose: Mucosal edema and rhinorrhea present. Mouth/Throat: Uvula is midline. Mucous membranes are dry. Oropharyngeal exudate (copious cl ear), posterior oropharyngeal edema (mild) and posterior oropharyngeal erythema (mild) prese nt. Neck: Normal range of motion. Cardiovascular: Normal rate, regular rhythm, S1 normal, S2 normal, normal heart sounds, int act distal pulses and normal pulses. Pulses: Radial pulses are 2+ on the right side, and 2+ on the left side. Pulmonary/Chest: Effort normal and breath sounds normal. Lymphadenopathy: Head (right side): Preauricular and posterior auricular adenopathy present. Head (left side): Preauricular and posterior auricular adenopathy present. Neurological: She is alert and oriented to person, place, and time. She has normal strength . Skin: Skin is warm, dry and intact. Psychiatric: She has a normal mood and affect. Her speech is normal and behavior is normal. Judgment and thought content normal. Cognition and memory are normal. Nursing note and vitals reviewed. Assessment: 1. Recurrent acute suppurative otitis media with spontaneous rupture of both tympanic membr anes amoxicillin (AMOXIL) 875 mg tablet Plan: 1. Recurrent acute suppurative otitis media with spontaneous rupture of both tympanic membr anes - amoxicillin (AMOXIL) 875 mg tablet; Take 1 tablet by mouth 2 times daily for 10 days. Di spense: 20 tablet; Refill: 0 Finish all of the antibiotic medicine given, even though you may feel better after the f irst few days. You may use rvgp-abv-rtbzdkv medicine, such as acetaminophen or ibuprofen, to control pa in and fever, unless something else was prescribed. See AVS for patient instructions. Diagnosis and plan including medications and side effects were discussed with the patient, information handout was given. Patient voices understanding of the plan and all questions we re answered. Follow up with Primary Care Provider or return to clinic if not improving in 1 week or if s ymptoms worsen. documented in this encounter Plan of Treatment [...] [place] | | | | | | [address] | | | | | | | | +--------+ + + + + | 03/18/ | Office | Physical Medicine | Jovana Dawson | | | 2019 | Visit | and Rehabilitation | MELANY Man [address] | | | | | | [facility] | | | | | | [address] [place] | | | | | | [address] | | | | | | | | +--------+ + + + + | 04/01/ | Appointment | Oncology | Deny Mcmanus, | | | 2019 | | | [address] | | | | | | [place], | | | | | | [place] [address] | | | | | | [phone] | | | | | | | | +--------+ + + + + | 04/08/ | Procedure | Physical Medicine | Leonard De Leon | | | 2019 | visit | and Rehabilitation | MD Kiki Win | | | | | | [place], [place] | | | | | | [address] | | | | | | | | +--------+ + + + + | 04/30/ | Office | Cardiology | Shad Saavedra, | | | 2019 | Visit | | MD [address] | | | | | | [place], | | | | | | [place] [address] | | | | | | [phone] | | | | | | | | +--------+ + + + + documented as of this encounter Visit Diagnoses + + | Diagnosis | + + | Recurrent acute suppurative otitis media with spontaneous rupture of both tympanic | | membranes - Primary Acute suppurative otitis media with spontaneous rupture of eardrum | + + documented in this encounter
--- OUTSIDE RECORDS SUMMARY | ~2020-03-13 | XMS | Encounter Summary ---
Demographics + + + | Address | [address] | | | [place] [address] | + + + | Home Phone | | + + + | Preferred Language | Unknown | + + + | Marital Status | | + + + | Anglican Affiliation | Unknown | + + + [...] Team Providers + +------+ + | Care Autism Specialist Name | Role | Phone | + +------+ + | Burton Masters MD | PCP | | + +------+ + Reason for Visit + + + | Reason | Comments | + + + | Back Pain | low back pain, RM 5 | + + + | Diarrhea | | + + + | Abdominal Cramping | | + + + | Nausea | | + + + Encounter Details +--------+---------+ + + + | Date | Type | Department | Care Team | Description | +--------+---------+ + + + | 10/15/ | Office | [facility] | Adrian Constantino, | Acute | | 2018 | Visit | CARE [address] | MD [address] | gastroenteritis | | | | [place], [place] | [place], [place] | (Primary Dx); Lumbar | | | | [address] | [address] | sprain, initial | | | | [phone] | | encounter | +--------+---------+ + + + Social History [...] + + + | Blood Pressure | 131/87 | 10/15/2018 11:06 AM | | | | | PST | | + + + + + | Pulse | 80 | 10/15/2018 11:06 AM | | | | | PST | | + + + + + | Temperature | 36.7 C (98.1 F) | 10/15/2018 11:06 AM | | | | | PST | | + + + + + | Respiratory Rate | - | - | | + + + + + | Oxygen Saturation | 98% | 10/15/2018 11:06 AM | | | | | PST | | + + + + + | Inhaled Oxygen | - | - | | | Concentration | | | | + + + + + | Weight | 89 kg (196 lb 3.4 | 10/15/2018 11:06 AM | | | | oz) | PST | | + + + + + | Height | 172.7 cm (5' 8") | 10/15/2018 11:06 AM | | | | | PST | | + + + + + | Body Mass Index | 29.83 | 10/15/2018 11:06 AM | | | | | PST | | + + + + + documented in this encounter Patient Instructions Patient Instructions Adrian Constantino MD - 10/15/2018 10:45 AM PSTUse heat and light activ ity, with slow stretching and range of motion for your back as needed. Take hydrocodone and Tylenol and ibuprofen as directed as needed for pain. For your diarrhea take frequent sips of fluids and a simple carbohydrate diet, with Pepto Bismal as needed. Return over the nex t several days should symptoms persist, sooner as needed. documented in this encounter Progress Notes Adrian Constantino MD - 10/15/2018 10:45 AM PSTFormatting of this note might be different fr om the original. Subjective: Chief Complaint: Back Pain (low back pain, RM 5); Diarrhea; Abdominal Cramping; and Nausea Ashley is a 33 y.o. female who comes in with 2 complaints. 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 The pain is primarily along the left lo wer back and radiates into the left leg and calf. She has had this many times in the past w ith chronic low back pain, with prior MRI of the lumbar spine showing degenerative disc dise ase and some nerve root compression at the left L5-S1 foramen. She denies weakness or pares thesias. Her second complaint is of some abdominal pain and cramping with diarrhea since th is morning. No fevers. She did have one episode of vomiting after changing a diaper this m orning, though not any other vomiting and overall is taking fluids well. She is a chronic s moker. She did have some antibiotics for an ear infection about a month ago, no other recen t antibiotics. Prior abdominal surgery includes 3 C-sections though no other abdominal surg eries. No other complaints. Patient's medications, allergies, past medical, surgical, social and family histories were reviewed and updated as appropriate. Objective: BP 131/87 | Pulse 80 | Temp 36.7 C (98.1 F) (Temporal) | Ht 1.727 m (5' 8") | Wt 89 kg (196 lb 3.4 oz) | LMP 10/10/2018 (Exact Date) | SpO2 98% | ? No | BMI 2 9.83 kg/m General Appearance: Alert, cooperative, no distress, appears stated age Eyes normal conjunctiva, without pallor or scleral icterus Oropharynx normal, with moist mucous membranes Neck without lymphadenopathy Lungs clear throughout to auscultation Heart with regular rate and rhythm without murmur Abdomen soft, with mild diffuse tenderness without focal tenderness or rebound or guarding, without masses, no CVA tenderness to percussion, no hepatosplenomegaly Back with some diffuse tenderness in the lumbar spine in left lower lumbar paraspinal regio n to palpation, without focal point tenderness or spasm Skin normal Lower extremities with normal strength and sensation throughout with positive straight leg raise on the left, reflexes are 2+ and symmetric to knee jerk and ankle jerk Assessment and Plans: 1. Acute gastroenteritis. Will treat with Pepto-Bismol as needed and simple carbohydrate diet, advance as tolerated. Return if symptoms aren't rapidly improving and resolving over the week. She is given a note for no work for the next couple days. 2. Acute exacerbation of chronic low back pain. Will treat with heat, slow stretching, an d continue with present medications, specifically Tylenol, hydrocodone, and ibuprofen as nee ded. Return as needed. documented in this e ncounter Plan of Treatment +--------+ + + + [...] [place] | | | | | | [address] | | | | | | | | +--------+ + + + + | 03/18/ | Office | Physical Medicine | Jovana Dawson | | | 2019 | Visit | and Rehabilitation | MELANY Man [address] | | | | | | [address] [facility] | | | | | | [address] [place] | | | | | | [address] | | | | | | | | +--------+ + + + + | 04/01/ | Appointment | Oncology | Deny Mcmanus, | | 2019 | | | [address] | | | | | | [place], | | | | | | [place] [address] | | | | | | [phone] | | | | | | | | +--------+ + + + + | 04/08/ | Procedure | Physical Medicine | Leonard De Leon | | | 2019 | visit | and Rehabilitation | MD Kiki Win | | | | | | [facility] [place] | | | | | | [address] | | | | | | | | +--------+ + + + + | 04/30/ | Office | Cardiology | Shad Saavedra, | | | 2019 | Visit | | MD [address] | | | | | | [place], | | | | | | [place] [address] | | | | | | [phone] | | | | | | | | +--------+ + + + + documented as of this encounter Visit Diagnoses + + | Diagnosis | + + | Acute gastroenteritis - Primary Other and unspecified noninfectious gastroenteritis | | and colitis | + + | Lumbar sprain, initial encounter | + + documented in this encounter
--- OUTSIDE RECORDS SUMMARY | ~2020-03-13 | XMS | Encounter Summary ---
Demographics + + + | Address | [address] | | | [place] [address] | + + + | Home Phone | | + + + | Preferred Language | Unknown | + + + | Marital Status | | + + + | Sabianism Affiliation | Unknown | + + + | Race | Unknown | + + + | Ethnic Group | Unknown | + + + Author + + + | Author | [facility] | | | and [place] | + + + | Organization | [facility] | | | [...] Team Providers + +------+ + | Care Instructional Coach Name | Role | Phone | + +------+ + PCP | Unavailable | + +------+ + Encounter Details +--------+ + + + + | Date | Type | Department | Care Team | Description | +--------+ + + + + | 07/07/ | Hospital | [facility] | | | | 1992 | Encounter | [facility] | | | | | | CENTER [address] | | | | | | [place] | | | | | | [address] | | | | | | [phone] | | | +--------+ + + + [...] [place] | | | | | | [address] | | | | | | | | +--------+ + + + + | 03/18/ | Office | Physical Medicine | Jovana Dawson | | | 2019 | Visit | and Rehabilitation | MELANY Man [address] | | | | | [address] | | | | | | [place] | | | | | | [address] | | | | | | | | +--------+ + + + + | 04/01/ | Appointment | Oncology | Deny Mcmanus, | | | 2019 | | | [address] | | | | | | [place] | | | | | | [place] [address] | | | | | | [phone] | | | | | | | | +--------+ + + + + | 04/08/ | Procedure | Physical Medicine | Leonard De Leon | | | 2019 | visit | and Rehabilitation | MD Audelia [address] | | | | | | [place] | | | | | | [address] | | | | | | | | +--------+ + + + + | 04/30/ | Office | Cardiology | Shad Saavedra, | | | 2019 | Visit | | MD Alan Cruz | | | | | | [place], | | | | | | [place] [address] | | | | | | [phone] | | | | | | | | +--------+ + + + + documented as of this encounter Visit Diagnoses Not on filedocumented in this encounter"
--- OUTSIDE RECORDS SUMMARY | ~2020-03-13 | XMS | Encounter Summary ---
Demographics + + + | Address | [address] | | | [place] [address] | + + + | Home Phone | | + + + | Preferred Language | Unknown | + + + | Marital Status | | + + + | Denominational Affiliation | Unknown | + + + | Race | Unknown | + + + | Ethnic Group | Unknown | + + + Author + + + | Author | [facility] | | | and [place] | + + + | Organization | [facility] | | | [...] Team Providers + +------+ + | Care In Tube Conversion Technician Name | Role | Phone | + +------+ + | Burton Masters MD | PCP | | + +------+ + Reason for Visit + + + | Reason | Comments | + + + | Tachycardia | | + + + | Medication Question | | + + + Encounter Details +--------+ + + + + | Date | Type | Department | Care Team | Description | +--------+ + + + + | 09/24/ | Telephone | [facility] | Burton Masters, | Tachycardia; | | 2019 | | [facility] [place] | [address] | Medication Question | | | | [address] | [place], [place] | | | | | [place], [place] | [address] | | | | | [address] | | | | | | [phone] | | | +--------+ + + + [...] [place] | | | | | | [address] | | | | | | | | +--------+ + + + + | 03/18/ | Office | Physical Medicine | Jovana Dawson | | | 2019 | Visit | and Rehabilitation | MELANY Man [address] | | | | | [address] | | | | | | [address] [place] | | | | | | [address] | | | | | | | | +--------+ + + + + | 04/01/ | Appointment | Oncology | Deny Mcmanus, | | | 2019 | | | [address] | | | | | | [place] | | | | | | [place] [address] | | | | | | [phone] | | | | | | | | +--------+ + + + + | 04/08/ | Procedure | Physical Medicine | Leonard De Leon | | | 2019 | visit | and Rehabilitation | MD Kiki Win | | | | | | [place] | | | | | | [address] | | | | | | | | +--------+ + + + + | 04/30/ | Office | Cardiology | Shad Saavedra, | | | 2019 | Visit | | MD Alan Cruz | | | | | | [place] | | | | | | [place] [address] | | | | | | [phone] | | | | | | | | +--------+ + + + + documented as of this encounter Visit Diagnoses Not on filedocumented in this encounter"
--- OUTSIDE RECORDS SUMMARY | ~2020-03-13 | XMS | Encounter Summary ---
Demographics + + + | Address | [address] | | | [place] [address] | + + + | Home Phone | | + + + | Preferred Language | Unknown | + + + | Marital Status | | + + + | Mormonism Affiliation | Unknown | + + + | Race | Unknown | + + + | Ethnic Group | Unknown | + + + Author + + + | Author | [facility] | | | and [place] | + + + | Organization | [facility] | | | [...] Team Providers + +------+ + | Care Foam Gun Operator Name | Role | Phone | + +------+ + | Burton Masters MD | PCP | | + +------+ + Reason for Visit + + + | Reason | Comments | + + + | Abdominal Pain | x1.5 weeks | + + + | Alopecia | | + + + | Weight Loss | | + + + | Diarrhea | | + + + Encounter Details +--------+---------+ + + + | Date | Type | Department | Care Team | Description | +--------+---------+ + + + | 12/03/ | Office | [facility] | Burton Masters, | Weight loss (Primary | | 2019 | Visit | [facility] | [address] | Dx); Lower | | | | [address] | [place], [place] | abdominal pain | | | | [place], [place] | [address] | | | | | [address] | | | | | | [phone] | | | +--------+---------+ + + + [...] + + + | Blood Pressure | 126/94 | 12/03/2018 11:21 AM | | | | | PST | | + + + + + | Pulse | 95 | 12/03/2018 11:21 AM | | | | | PST | | + + + + + | Temperature | 36.4 C (97.5 F) | 12/03/2018 11:21 AM | | | | | PST | | + + + + + | Respiratory Rate | 16 | 12/03/2018 11:21 AM | | | | | PST | | + + + + + | Oxygen Saturation | 98% | 12/03/2018 11:21 AM | | | | | PST | | + + + + + | Inhaled Oxygen | - | - | | | Concentration | | | | + + + + + | Weight | 85 kg (187 lb 6.3 | 12/03/2018 11:21 AM | | | | oz) | PST | | + + + + + | Height | 172.7 cm (5' 8") | 12/03/2018 11:21 AM | | | | | PST | | + + + + + | Body Mass Index | 28.49 | 12/03/2018 11:21 AM | | | | | PST | | + + + + + documented in this encounter Progress Notes Burton Masters MD - 12/03/2018 11:15 AM PSTFormatting of this note might be different f rom the original. Subjective: Patient ID: Ashley Webb is a 33 y.o. female. Chief Complaint Patient presents with Abdominal Pain x1.5 weeks Alopecia Weight Loss Diarrhea Abdominal Pain This is a new problem. The current episode started 1 to 4 weeks ago. The onset quality is u ndetermined. The pain is located in the suprapubic region. The pain is at a severity of 4/10 . The pain is moderate. The quality of the pain is aching and cramping. Associated symptoms include diarrhea. Diarrhea This is a new problem. The stool consistency is described as watery. Associated symptoms in clude abdominal pain. Past Medical History: Diagnosis Date Abdominal pain Abnormal vaginal bleeding Abscess of trunk Anxiety Bipolar disease, chronic (HCC) Breast lump Chest pain, unspecified Chronic low back pain 04/16/2015 Cough DDD (degenerative disc disease), lumbar 04/16/2015 [...] Stroke Maternal Grandmother Diabetes Maternal Grandmother No Known Problems Brother No Known Problems Sister No Known Problems Child No Known Problems Child No Known Problems Child No Known Problems Paternal Uncle Cancer Paternal Aunt Cancer Maternal Aunt Heart disease Maternal Aunt Social History Social History Marital status: Spouse name: N/A Number of children: 3 Years of education: 15 Occupational History [employer] Social History Main Topics Smoking status: Current Every Day Smoker Packs/day: 1.00 Years: 16.00 Types: Cigarettes Start date: 03/03/2001 Smokeless tobacco: Never Used Alcohol use 0.0 oz/week Comment: RARE Drug use: No Sexual activity: Yes Other Topics Concern None Social History Narrative Merged History Encounter Review of Systems Constitutional: Negative. HENT: Negative. Eyes: Negative. Respiratory: Negative. Cardiovascular: Negative. Gastrointestinal: Positive for abdominal pain and diarrhea. Genitourinary: Negative. Musculoskeletal: Negative. Skin: Negative. Neurological: Negative. Endo/Heme/Allergies: Negative. Psychiatric/Behavioral: Negative. . Objective: BP (!) 126/94 | Pulse 95 | Temp 36.4 C (97.5 F) (Temporal) | Resp 16 | Ht 1.727 m ( 5' 8") | Wt 85 kg (187 lb 6.3 oz) | LMP 11/02/2018 | SpO2 98% | ? No | BMI 28.49 kg/m Physical Exam Constitutional: She is well-developed, [...] not diaphoretic. Psychiatric: Affect normal. Assessment/Plan: 1. Weight loss TSH Culture, Stool Clostridium difficile 2. Lower abdominal pain XR Abdomen AP Requested Prescriptions Signed Prescriptions Disp Refills buPROPion (WELLBUTRIN) 100 mg tablet 180 tablet 1 Sig: Take 2 tablets by mouth 2 times daily. ALPRAZolam (XANAX) 0.25 mg tablet 20 tablet 1 Sig: Take 1-2 tablets by mouth Twice daily as needed for Anxiety. HYDROcodone-acetaminophen (NORCO) 5-325 mg per tablet 90 tablet 0 Sig: Take 1 tablet by mouth every 8 hours as needed for Pain. documented in this encounter Plan of Treatment [...] [place] | | | | | | [id number] | | | | | | | | +--------+ + + + + | 03/18/ | Office | Physical Medicine | Jovana Dawson | | | 2019 | Visit | and Rehabilitation | MELANY Man [address] | | | | | | [address] [facility] | | | | | | [address] [place] | | | | | | [address] | | | | | | | | +--------+ + + + + | 04/01/ | Appointment | Oncology | Deny Mcmanus, | | | 2019 | | | MD [address] | | | | | | [place], | | | | | | [place] [address] | | | | | | [phone] | | | | | | | | +--------+ + + + + | 04/08/ | Procedure | Physical Medicine | Leonard De Leon | | | 2019 | visit | and Rehabilitation | MD Kiki [address] | | | | | | [place], [place] | | | | | | [address] | | | | | | | | +--------+ + + + + | 04/30/ | Office | Cardiology | Shad Saavedra, | | | 2019 | Visit | | [address] | | | | | | [place], | | | | | | [place] [address] | | | | | | [phone] | | | | | | | | +--------+ + + + + + + +--------+ + + | Name | Type | Priori | Associated Diagnoses | Order Schedule | | | | ty | | | + + +--------+ + + | Culture, Stool | Microbiolog | Routin | Weight loss | Expected: | | | y | e | | 12/03/2018, Expires: | | | | | | 12/03/2019 | + + +--------+ + + | Clostridium | Microbiolog | Routin | Weight loss | 1 Occurrences | | difficile | y | e | | starting 12/03/2018 | | | | | | until 12/03/2019 | + + +--------+ + + | XR Abdomen AP | Imaging | Routin | Lower abdominal | Expected: | | | | e | pain | 12/03/2018, Expires: | | | | | | 12/03/2019 | + + +--------+ + + documented as of this encounter Results TSH (01/11/2019 10:42 AM PST) + +-------+ + + + | Component | Value | Ref Range | Performed | Pathologist | | | | | At | Signature | + +-------+ + + + | TSH | 2.17 | 0.55 - 4.78 | [facility] | | | | | uIU/mL | [facility] | | | | [...] | [address] | [place] | [phone] | | [facility] | | [address] | | | - LABORATORY | | | | + + + + + documented in this encounter Visit Diagnoses + + | Diagnosis | + + | Weight loss - Primary Loss of weight | + + | Lower abdominal pain Abdominal pain, other specified site | + + documented in this encounter
--- OUTSIDE RECORDS SUMMARY | ~2020-03-13 | XMS | Encounter Summary ---
Demographics + + + | Address | [address] | | | [place] [address] | + + + | Home Phone | | + + + | Preferred Language | Unknown | + + + | Marital Status | | + + + | Yazidism Affiliation | Unknown | + + + [...] Team Providers + +------+ + | Care Wet Wash Assembler Name | Role | Phone | + +------+ + | Burton Masters MD | PCP | | + +------+ + Reason for Visit + + + | Reason | Comments | + + + | Follow-up | 1 month | + + + Encounter Details +--------+---------+ + + + | Date | Type | Department | Care Team | Description | +--------+---------+ + + + | 05/16/ | Office | [facility] | Burton Masters Matthias, | DDD (degenerative | | 2018 | Visit | [facility] | [address] | disc disease), | | | | [address] | [place] | lumbar (Primary Dx); | | | | [place] | [address] | Depression, | | | | [address] | | unspecified | | | | [phone] | | depression type; | | | | | | Moderate episode of | | | | | | recurrent major | | | | | | depressive disorder | | | | | | ([facility]) | +--------+---------+ + + + Social History [...] + + + | Blood Pressure | 124/84 | 05/16/2018 10:02 AM | | | | | PDT | | + + + + + | Pulse | 108 | 05/16/2018 10:02 AM | | | | | PDT | | + + + + + | Temperature | 36.6 C (97.9 F) | 05/16/2018 10:02 AM | | | | | PDT | | + + + + + | Respiratory Rate | - | - | | + + + + + | Oxygen Saturation | 99% | 05/16/2018 10:02 AM | | | | | PDT [...] encounter Progress Notes Burton Masters MD - 05/16/2018 10:15 AM PDTFormatting of this note might be different f rom the original. Subjective: Patient ID: Ashley Webb is a 33 y.o. female. Chief Complaint Patient presents with Follow-up 1 month Back Pain This is a chronic problem. Mental Health Problem The primary symptoms do not include dysphoric mood or delusions. Past Medical History: Diagnosis Date Abdominal pain [...] 3 Years of education: 15 Occupational History [employer] Social History Main Topics Smoking status: Current [...] for back pain. Skin: Negative. Neurological: Negative. Endo/Heme/Allergies: Negative. Psychiatric/Behavioral: Negative. Negative for dysphoric mood. . Objective: BP 124/84 | Pulse 108 | Temp 36.6 C (97.9 F) (Temporal) | SpO2 99% | ? No Physical Exam Constitutional: She is well-developed, well-nourished, [...] is not diaphoretic. Psychiatric: Affect normal. Assessment/Plan: Back pain Depression Requested Prescriptions Signed Prescriptions Disp Refills buPROPion (WELLBUTRIN) 100 mg tablet 180 tablet 1 Sig: Take 2 tablets by mouth 2 times daily. HYDROcodone-acetaminophen (NORCO) 5-325 mg per tablet 90 [...] | | | | Visit | | [place] [address] | | | | | | [place] | | | | | | [id number] | | | | | | | | +--------+ + + + + | 03/18/ | Office | Physical Medicine | Jovana Dawson | | 2019 | Visit | and Rehabilitation | MELANY Man [address] | | | | | | [address] [facility] | | | | | | [place] | | | | | | [address] | | | | | | | | +--------+ + + + + | 04/01/ | Appointment | Oncology | Deny Mcmanus, | | | 2019 | | | [address] | | | | | | [place] | | | | | | [place] [address] | | | | | | [phone] | | | | | | | | +--------+ + + + + | 04/08/ | Procedure | Physical Medicine | Leonard De Leon | | | 2019 | visit | and Rehabilitation | MD Audelia [address] | | | | | | [place] | | | | | | [address] | | | | | | | | +--------+ + + + + | 04/30/ | Office | Cardiology | Shad Saavedra, | | | 2019 | Visit | | MD Alan Cruz | | | | | | [place], | | | | | | [place] [address] | | | | | | [phone] | | | | | | | | +--------+ + + + + documented as of this encounter Visit Diagnoses + + | Diagnosis | + + | DDD (degenerative disc disease), lumbar - Primary Degeneration of lumbar or | | lumbosacral intervertebral disc | + + | Depression, unspecified depression type | + + | Moderate episode of recurrent major depressive disorder (HCC) | + + documented in this encounter"
--- OUTSIDE RECORDS SUMMARY | ~2020-03-13 | XMS | Encounter Summary ---
Demographics + + + | Address | [address] | | | [place] [address] | + + + | Home Phone | | + + + | Preferred Language | Unknown | + + + | Marital Status | Single | + + + | Mormon Affiliation | NON | + + + | Race | White | + + + | Ethnic Group | Not or | + + + Author + + + | Author | [facility] | + + + | Organization | [facility] | + + + | Address [...] Team Providers + +------+ + | Care Rn Radiation Oncology Name | Role | Phone | + +------+ + | Burton Masters MD | PCP | | + +------+ + Encounter Details +--------+ + + + + | Date | Type | Department | Care Team | Description | +--------+ + + + + | 01/29/ | Pharmacy | [facility] | | | | 2019 | Visit | [address] | | | [address] | [address] | | | | | | [place] [address] | | | | | | [phone] | | | +--------+ + + + [...] Arce | | | | | | [place], [place] | | | | | | [address] | | | | | | [phone] | | | | | | | | +--------+---------+ + + + documented as of this encounter Visit Diagnoses Not on filedocumented in this encounter"
--- OUTSIDE RECORDS SUMMARY | ~2020-03-13 | XMS | Encounter Summary ---
Demographics + + + | Address | [address] | | | [place] [address] | + + + | Home Phone | | + + + | Preferred Language | Unknown | + + + | Marital Status | | + + + | Anabaptism Affiliation | Unknown | + + + | Race | Unknown | + + + | Ethnic Group | Unknown | + + + Author + + + | Author | [facility] | | | and [place] | + + + | Organization | [facility] | | | [...] Team Providers + +------+ + | Care Bar Hostess Name | Role | Phone | + +------+ + PCP | Unavailable | + +------+ + Encounter Details +--------+ + + + + | Date | Type | Department | Care Team | Description | +--------+ + + + + | 10/10/ | Hospital | [facility] | | | | 1991 | Encounter | [facility] | | | | | | CENTER [address] | | | | | | [place] | | | | | | [address] | | | | | | [phone] | | | +--------+ + + + [...] [place] | | | | | | [address] | | | | | | | | +--------+ + + + + | 03/18/ | Office | Physical Medicine | Jovana Dawson | | | 2019 | Visit | and Rehabilitation | MELANY Man [address] | | | | | | [address] | | | | | | [place] | | | | | | [address] | | | | | | | | +--------+ + + + + | 04/01/ | Appointment | Oncology | Deny Mcmanus, | | | 2019 | | | [address] | | | | | | [place] | | | | | | [place] [address] | | | | | | [phone] | | | | | | | | +--------+ + + + + | 04/08/ | Procedure | Physical Medicine | Leonard De Leon | | | 2019 | visit | and Rehabilitation | MD Audelia [address] | | | | | | [place] | | | | | | [address] | | | | | | | | +--------+ + + + + | 04/30/ | Office | Cardiology | Shad Saavedra, | | | 2019 | Visit | | MD Alan Cruz | | | | | | [place], | | | | | | [place] [address] | | | | | | [phone] | | | | | | | | +--------+ + + + + documented as of this encounter Visit Diagnoses Not on filedocumented in this encounter"
--- OUTSIDE RECORDS SUMMARY | ~2020-03-13 | XMS | Encounter Summary ---
Demographics + + + | Address | [address] | | | [place] [address] | + + + | Home Phone | | + + + | Preferred Language | Unknown | + + + | Marital Status | | + + + | Jainism Affiliation | Unknown | + + + [...] Team Providers + +------+ + | Care Stone Paver Name | Role | Phone | + [...] Description | +--------+--------+ + + + | 02/03/ | Refill | [facility] | Burton Masters, | Medication Refill | | 2020 | | MEDICINE [place] | [address] | | | | | [address] | [place] | | | | | [place] | [address] | | | | | [address] | | | | | | [phone] | | | +--------+--------+ + + + [...] [place] | | | | | | [address] | | | | | | | | +--------+ + + + + | 03/18/ | Office | Physical Medicine | Jovana Dawson | | | 2019 | Visit | and Rehabilitation | MELANY Man [address] | | | | | | [address] [facility] | | | | | | [address] [place] | | | | | | [address] | | | | | | | | +--------+ + + + + | 04/01/ | Appointment | Oncology | Deny Mcmanus, | | | 2019 | | | MD [address] | | | | | | [place] | | | | | | [place] [address] | | | | | | [phone] | | | | | | | | +--------+ + + + + | 04/08/ | Procedure | Physical Medicine | Leonard De Leon | | | 2019 | visit | and Rehabilitation | MD Kiki Win | | | | | | [place] | | | | | | [address] | | | | | | | | +--------+ + + + + | 04/30/ | Office | Cardiology | Shad Saavedra, | | | 2019 | Visit | | MD Alan Cruz | | | | | | [place], | | | | | | [place] [address] | | | | | | [phone] | | | | | | | | +--------+ + + + + documented as of this encounter Visit Diagnoses Not on filedocumented in this encounter"
--- OUTSIDE RECORDS SUMMARY | ~2020-03-13 | XMS | Encounter Summary ---
Demographics + + + | Address | [address] | | | [place] [address] | + + + | Home Phone | | + + + | Preferred Language | Unknown | + + + | Marital Status | | + + + | Gnosticist Affiliation | Unknown | + + + | Race | Unknown | + + + | Ethnic Group | Unknown | + + + Author + + + | Author | [facility] | | | and [place] | + + + | Organization | [facility] | | | and [...] Team Providers + +------+ + | Care Knitting Supervisor Name | Role | Phone | + +------+ + | Burton Myers MD | PCP | | + +------+ + Encounter Details +--------+ + + + + | Date | Type | Department | Care Team | Description | +--------+ + + + + | 03/21/ | Documentati | [facility] | Senthil Ernst, PT | | | 2017 | on | [facility] CTR [facility] | | | | | | [address] | | | | | | [place] [address] | | | | | | [phone] | | | +--------+ + + + [...] documented as of this encounter Progress Notes Senthil Ernst, PT - 03/21/2017 12:36 PM [facility] [address] [place] [address] Physical Therapy Discharge Note This discharge is associated with the evaluation completed on 01/03/2017. Date: 03/21/2017 Patient Information Patient Name: Ashley Webb Date of : 1985 Age: 32 y.o. No diagnosis found. Date of Onset: No data was found Referring Provider: CHRISTOS MYERS MD Total Number of Visits Completed: 4 Total Cancellations: 1 Total No Shows: 0 Patient has failed to return to therapy for further treatment. Goal status is unknown at th is time. This note serves as discharge from therapy. Patient decided not to attend therapy. . At this time we find it necessary to discharge thi s patient from therapy services. The last progress note or the patients initial evaluation will serve as objective status fo r purposes of discharge. Electronically signed by: Senthil Ernst PT, 03/21/2017 12:37 Patient Name: Ashley Webb/: 1985/ documented in this enco unter Plan of Treatment +--------+ + + + + | Date | Type | Specialty | Care Team | Description | +--------+ + + + + | 03/17/ | Virtual | Neurosurgery | Zuhair Flores | | 2019 | Office | | MD Joselito [address] | | | | Visit | | [address] [facility] [address] | | | | | | [place] | | | | | | [address] | | | | | | | | +--------+ + + + + | 03/18/ | Office | Physical Medicine | Jovana Dawson | | | 2019 | Visit | and Rehabilitation | MELANY Man [address] | | | | | | [address] [facility] | | | | | | [...] | | | | | | [place] [address] | | | | | | [phone] | | | | | | | | +--------+ + + + + | 04/08/ | Procedure | Physical Medicine | Leonard De Leon | | | 2019 | visit | and Rehabilitation | MD Kiki Win | | | | | | [place] | | | | | | [address] | | | | | | | | +--------+ + + + + | 04/30/ | Office | Cardiology | Shad Saavedra, | | | 2019 | Visit | | MD Alan Cruz | | | | | | [place], | | | | | | [place] [address] | | | | | | [phone] | | | | | | | | +--------+ + + + + documented as of this encounter Visit Diagnoses Not on filedocumented in this encounter"
--- OUTSIDE RECORDS SUMMARY | ~2020-03-13 | XMS | Encounter Summary ---
Demographics + + + | Address | [address] | | | [place] [address] | + + + | Home Phone | | + + + | Preferred Language | Unknown | + + + | Marital Status | | + + + | Congregational Affiliation | Unknown | + + + | Race | Unknown | + + + | Ethnic Group | Unknown | + + + Author + + + | Author | [facility] | | | and [place] | + + + | Organization | [facility] | | | [...] Team Providers + +------+ + | Care Event Lighting Specialist Name | Role | Phone | + +------+ + | Burton Masters MD | PCP | | + +------+ + Reason for Visit + + + | Reason | Comments | + + + | Lab Order | PT due for labs prior to appt. | + + + Encounter Details +--------+ + + + + | Date | Type | Department | Care Team | Description | +--------+ + + + + | 06/28/ | Telephone | [facility] [place] | Shad Saavedra, | Lab Order (PT due | | 2019 | | CARDIOLOGY [address] | for labs prior to | | | | [place], | [place], | appt. ) | | | | [place] [address] | [place] [address] | | | | | [phone] | [phone] | | | | | | | [...] | | Visit | | [address] [facility] [address] | | | | | | [place] | | | | | | [address] | | | | | | | | +--------+ + + + + | 03/18/ | Office | Physical Medicine | Jovana Dawson | | | 2019 | Visit | and Rehabilitation | MELANY Man [address] | | | | | | [address] | | | | | | [address] [place] | | | | | | [address] | | | | | | | | +--------+ + + + + | 04/01/ | Appointment | Oncology | Deny Mcmanus, | | 2019 | | | MD [address] | | | | | | [place] | | | | | | [place] [address] | | | | | | [phone] | | | | | | | | +--------+ + + + + | 04/08/ | Procedure | Physical Medicine | Leonard De Leon | | 2019 | visit | and Rehabilitation | MD Kiki Win | | | | | | [place] | | | | | | [id number] | | | | | | | | +--------+ + + + + | 04/30/ | Office | Cardiology | Shad Saavedra, | | | 2019 | Visit | | MD Alan Cruz | | | | | | [place] | | | | | | [place] [address] | | | | | | [phone] | | | | | | | | +--------+ + + + + + +------+--------+ + + | Name | Type | Priori | Associated Diagnoses | Order Schedule | | | | ty | | | + +------+--------+ + + | Lipid Panel | Lab | Routin | Hyperlipidemia, | Expected: | | | | e | unspecified | 06/28/2019, Expires: | | | | | hyperlipidemia type | 06/27/2020 | + +------+--------+ + + documented as of this encounter Visit Diagnoses + + | Diagnosis | + + | Hyperlipidemia, unspecified hyperlipidemia type - Primary | + + documented in this encounter"
--- OUTSIDE RECORDS SUMMARY | ~2020-03-13 | XMS | Encounter Summary ---
Demographics + + + | Address | [address] | | | [place] [address] | + + + | Home Phone | | + + + | Preferred Language | Unknown | + + + | Marital Status | | + + + | Mu-Ism Affiliation | Unknown | + + + | Race | Unknown | + + + | Ethnic Group | Unknown | + + + Author + + + | Author | [facility] | | | and [place] | + + + | Organization | [facility] | | | and [...] Team Providers + +------+ + | Care Efficiency Manager Name | Role | Phone | + +------+ + | Burton Masters MD | PCP | | + +------+ + Encounter Details +--------+ + + + + | Date | Type | Department | Care Team | Description | +--------+ + + + + | 04/16/ | [facility] | [facility] | Jorge Flowers MD | | | 2019 | Encounter | MED CTR POC | [address] | | | | | ULTRASOUND [address] | [place], [place] | | | | | [place], | [address] | | | | | [place] [address] | | | | | | [phone] | | | +--------+ + + + [...] [place] | | | | | | [address] | | | | | | | | +--------+ + + + + | 03/18/ | Office | Physical Medicine | Jovana Dawson | | 2019 | Visit | and Rehabilitation | MELANY Man [address] | | | | | | [address] [facility] | | | | | | [address] [place] | | | | | | [address] | | | | | | | | +--------+ + + + + | 04/01/ | Appointment | Oncology | Deny Mcmanus, | | 2019 | | | [address] | | | | | | [address], | | | | | | [place] [address] | | | | | | [phone] | | | | | | | | +--------+ + + + + | 04/08/ | Procedure | Physical Medicine | Leonard De Leon | | 2019 | visit | and Rehabilitation | T, [address] | | | | | | [facility], [place] | | | | | | [address] | | | | | | | | +--------+ + + + + | 04/30/ | Office | Cardiology | Shad Saavedra, | | | 2019 | Visit | | [address] | | | | | | [place], | | | | | | [place] [address] | | | | | | [phone] | | | | | | | [...] | PDT | + +---------+--------+ + + documented as of this encounter Visit Diagnoses Not on filedocumented in this encounter"
--- OUTSIDE RECORDS SUMMARY | ~2020-03-13 | XMS | Encounter Summary ---
Demographics + + + | Address | [address] | | | [place] [address] | + + + | Home Phone | | + + + | Preferred Language | Unknown | + + + | Marital Status | | + + + | Christianity Affiliation | Unknown | + + + | Race | Unknown | + + + | Ethnic Group | Unknown | + + + Author + + + | Author | [facility] | | | and [place] | + + + | Organization | [facility] | | [...] Team Providers + +------+ + | Care Hull Inspector Name | Role | Phone | + [...] Description | +--------+--------+ + + + | 04/03/ | Refill | [facility] [place] [facility] | Burton Masters, | Medication Refill | | 2018 | | MEDICINE [place] | [address] | | | | | [address] | [place] | | | | | [place] | [address] | | | | | [address] | | | | | | [phone] | | | +--------+--------+ + + + [...] [place] | | | | | | [address] | | | | | | | | +--------+ + + + + | 03/18/ | Office | Physical Medicine | Jovana Dawson | | | 2019 | Visit | and Rehabilitation | MELANY Man [address] | | | | | | [address] | | | | | | [address] [place] | | | | | | [address] | | | | | | | | +--------+ + + + + | 04/01/ | Appointment | Oncology | Deny Mcmanus, | | 2019 | | | MD [address] | | | | | | [place] | | | | | | [place] [address] | | | | | | [phone] | | | | | | | | +--------+ + + + + | 04/08/ | Procedure | Physical Medicine | Leonard De Leon | | 2019 | visit | and Rehabilitation | T, MD [address]iki [address] | | | | | | [place] | | | | | | [address] | | | | | | | | +--------+ + + + + | 04/30/ | Office | Cardiology | Shad Saavedra, | | | 2019 | Visit | | MD Alan [address] | | | | | | [place], | | | | | | [place] [address] | | | | | | [phone] | | | | | | | | +--------+ + + + + documented as of this encounter Visit Diagnoses Not on filedocumented in this encounter"
--- OUTSIDE RECORDS SUMMARY | ~2020-03-13 | XMS | Encounter Summary ---
Demographics + + + | Address | [address] | | | [place] [address] | + + + | Home Phone | | + + + | Preferred Language | Unknown | + + + | Marital Status | | + + + | Protestant Affiliation | Unknown | + + + | Race | Unknown | + + + | Ethnic Group | Unknown | + + + Author + + + | Author | [facility] | | | and [place] | + + + | Organization | [facility] | | | [...] Team Providers + +------+ + | Care Coffee Taster Name | Role | Phone | + [...] | | | | | | | SVT | | | | | | | (supraventri | | | | | | | cular | | | | | | | tachycardia) | | | | | | | (HCC) | | | | | | | Procedures | | | | | | | CV EP | | | | | | | ABLATION SVT | | | +--------+--------+ + + + + Encounter Details +--------+ + + + + | Date | Type | Department | Care Team | Description | +--------+ + + + + | 08/12/ | Anesthesia | [facility] | [facility], | | | 2019 | Event | [facility] | DO [address] | | | | | [facility] [address] | [place] | | | | | [place], [place] | [place] [address] | | | | | [address] | [phone] | | | | | [phone] | | | +--------+ + + + + Anesthesia Record + + + + + | Procedure Name | Responsible | Anesthesia Start | Anesthesia Stop Time | | | Anesthesiologist | Time | | + + + + + | CV EP ABLATION SVT | Bao Vernon, | 08/12/19 1200 | 08/12/19 1317 | | (Right Heart) | DO | | | + + + + + +----+---+ + + | Da | T | Event | Comment | | te | i | | | | | m | | | | | e | | | +----+---+ + + | 10 | 1 | | | | /0 | 1 | | | | 7/ | 3 | | | | 20 | 8 | | | | 19 | | | | +----+---+ + + | | 1 | An Checkout | Pre-use anesthesia machine/equipment checkout. | | | 2 | | | | | 0 | | | | | 0 | | | +----+---+ + + | | 1 | An Start | Reassessment prior to anesthesia induction/procedure. | | | 2 | | | | | 0 | | | | | 0 | | | +----+---+ + + | | 1 | Anesthesia | | | | 2 | Ready | | | | 0 | | | | | 9 | | | +----+---+ + + | | 1 | First | | | | 2 | Inc/Proc St | | | | 1 | | | | | 1 | | | +----+---+ + + | | 1 | An Stop | Patient handed off to recovery nurse. | | | 1 | | | | | 7 | | | +----+---+ + + +------+ | Meds | +------+ + + + | Name | Total | + + + | midazolam 2 mg/mL | 2 mg | + + + | fentaNYL | 100 mcg | + + + | lidocaine 2% | 100 mg | + + + | propofol | 65 mg | + + + | propofol infusion | 22.09 mg | + + + | isoproterenol | 21 mcg | + + + | NS (Infusion) | 0 mL | + + + + + | Name | + + | N2O Flow Rate (L/Min) | + + | O2 Flow Rate (L/Min) | + + | Insp O2 | + + | Exp N2O | + + | Air Flow Rate (L/Min) | + + + + | No blood administrations on file. | + + +--------+ + + + | Type | Details | Placement | Removal | +--------+ + + + | Wound | 08/12/19; 1300; Right; groin | 08/12/19 1300 by | | | | | Zuhair Hansen RN | | +--------+ + + + | Periph | 08/12/19; 0947; Left; Hand; | 08/12/19 0947 by | 08/13/19 0832 by | | eral | [id number] catheter system; | Heather Addison RN | Archie Ellison RN | | IV | 20 gauge; Hematology, Chemistry, | | | | | Other (see comment); distraction; | | | | | 08/13/19; 0832 | | | +--------+ + + + | Venous | 08/12/19; 1214; Yes; | 08/12/19 1214 by | 08/12/19 1305 by | | | Chlorhexidine/Isopropyl Alcohol; | Jared Talavera RN | Jared Talavera RN | | Sheath | Yes; All; Procedure Room; | | | | | Observer; Dr. Bravo; Attending | | | | | physician; 8 Fr.; Right; Femoral; | | | | | Yes; 08/12/19; 1305; Per | | | | | protocol; No complications | | | +--------+ + + + documented in this encounter Social History + + + +--------+ + [...] [place] | | | | | | [address] | | | | | | | | +--------+ + + + + | 03/18/ | Office | Physical Medicine | Jovana Dawson | | | 2019 | Visit | and Rehabilitation | MELANY Man [address] | | | | | | [address] | | | | | | [place] | | | | | | [address] | | | | | | | | +--------+ + + + + | 04/01/ | Appointment | Oncology | Deny Mcmanus, | | | 2019 | | | MD [address] | | | | | | [place] | | | | | | [place] [address] | | | | | | [phone] | | | | | | | | +--------+ + + + + | 04/08/ | Procedure | Physical Medicine | Leonard De Leon | | | 2019 | visit | and Rehabilitation | MD Audelia [address] | | | | | | [place] | | | | | | [address] | | | | | | | | +--------+ + + + + | 04/30/ | Office | Cardiology | NnamdicecilioShad don, | | | 2019 | Visit | | MD Alan [address] | | | | | | [place], | | | | | | [place] [address] | | | | | | [phone] | | | | | | | | +--------+ + + + + documented as of this encounter Visit Diagnoses Not on filedocumented in this encounter Administered Medications + +--------+ +--------+------+------+ | Medication Order | MAR | Action | Dose | Rate | Site | | | Action | Date | | | | + +--------+ +--------+------+------+ | fentaNYL (PF) injection | Given | 08/12/20 | 50 mcg | | | | Intravenous, PRN, Starting Mon | | 19 12:05 | | | | | 08/12/19 at 1157, Anesthesia | | PM PDT | | | | | Intra-op | | | | | | + +--------+ +--------+------+------+ +-------+ +--------+---+---+ | Given | 08/12/20 | 50 mcg | | | | | 19 11:57 | | | | | | AM PDT | | | | +-------+ +--------+---+---+ +---+---+ | | | +---+---+ + + + +---------+-------+---+ | isoproterenol (ISUPREL) | Restarte | 08/12/20 | 2 | 0.6 | | | injection Intravenous, | d | 19 12:56 | mcg/min | mL/hr | | | CONTINUOUS PRN, Starting Mon | | PM PDT | | | | | 08/12/19 at 1235, Anesthesia | | | | | | | Intra-op | | | | | | + + + +---------+-------+---+ + + +---------+-------+---+ | Rate/Dose Change | 08/12/20 | 1 | 0.3 | | | | 19 12:39 | mcg/min | mL/hr | | | | PM PDT | | | | + + +---------+-------+---+ | Rate/Dose Change | 08/12/20 | 2 | 0.6 | | | | 19 12:37 | mcg/min | mL/hr | | | | PM PDT | | | | + + +---------+-------+---+ +---+---+ | | | +---+---+ + +-------+ +--------+---+---+ | lidocaine (PF) 2% injection | Given | 08/12/20 | 100 mg | | | | Intravenous, PRN, Starting Mon | | 19 12:05 | | | | | 08/12/19 at 1205, Anesthesia | | PM PDT | | | | | Intra-op | | | | | | + +-------+ +--------+---+---+ +---+---+ | | | +---+---+ + +-------+ +------+---+---+ | midazolam (VERSED) 1 mg/mL | Given | 08/12/20 | 2 mg | | | | injection Intravenous, PRN, | | 19 11:57 | | | | | Starting 08/12/19 at 1157, | | AM PDT | | | | | Anesthesia Intra-op | | | | | | + +-------+ +------+---+---+ +---+---+ | | | +---+---+ + +-------+ +-------+---+---+ | propofol (DIPRIVAN) injection | Given | 08/12/20 | 25 mg | | | | Intravenous, PRN, Starting Mon | | 19 12:07 | | | | | 08/12/19 at 1205, Anesthesia | | PM PDT | | | | | Intra-op | | | | | | + +-------+ +-------+---+---+ +-------+ +-------+---+---+ | Given | 08/12/20 | 40 mg | | | | | 19 12:05 | | | | | | PM PDT | | | | +-------+ +-------+---+---+ +---+---+ | | | +---+---+ + +---------+ + +-------+---+ | propofol infusion (DIPRIVAN) 10 | New Bag | 08/12/20 | 45 | 22.1 | | | mg/mL infusion Intravenous, | | 19 12:05 | mcg/kg/m | mL/hr | | | CONTINUOUS PRN, Starting Mon | | PM PDT | in | | | | 08/12/19 at 1205, Anesthesia | | | | | | | Intra-op | | | | | | + +---------+ + +-------+---+ +---+---+ | | | +---+---+ + +---------+ +---+---+---+ | sodium chloride 0.9% (NS) | New Bag | 08/12/20 | | | | | infusion Intravenous, CONTINUOUS | | 19 11:42 | | | | | PRN, Starting 08/12/19 at | | AM PDT | | | | | 1142, Anesthesia Intra-op | | | | | | + +---------+ +---+---+---+ +---+---+ | | | +---+---+ documented in this encounter"
--- OUTSIDE RECORDS SUMMARY | ~2020-03-13 | XMS | Encounter Summary ---
Demographics + + + | Address | [address] | | | [place] [address] | + + + | Home Phone | | + + + | Preferred Language | Unknown | + + + | Marital Status | | + + + | Yarsani Affiliation | Unknown | + + + | Race | Unknown | + + + | Ethnic Group | Unknown | + + + Author + + + | Author | [facility] | | | and [place] | + + + | Organization | [facility] | | | [...] Team Providers + +------+ + | Care Finish Painter Name | Role | Phone | + +------+ + | Burton Masters MD | PCP | | + +------+ + Reason for Referral Evaluate & Treat (Routine) + + + + + + + | Status | Reason | Specialty | Diagnoses / | Referred By | Referred To | | | | | Procedures | Contact | Contact | + + + + + + + | Authorized | Specialty | Cardiology | Diagnoses | Bon Masters [facility] [place] | | | Services | | SVT | Burton Rizzo, | Cardiology | | | Required | | (supraventri | [address] | | | | | cular | [address] | [place], | | | | | tachycardia) | [place], | [place] | | | | | ([facility]) | [place] [address] | [address] | | | | | | Phone: | Phone: | | | | | | [phone] | [phone] | | | | | | Fax: | Fax: | | | | | | [phone] | [phone] | + + + + + + + Reason for Visit + + + | Reason | Comments | + + + | Referral (Follow up) | LUCIA/REFERRAL REQUEST/DOS 04/30/20 | + + + Encounter Details +--------+ + + + + | Date | Type | Department | Care Team | Description | +--------+ + + + + | 02/02/ | Telephone | [facility] | Burton Masters, | Referral (Follow up) | | 2019 | | [facility] | [address] | ([facility]/REFERRAL | | | | [address] | [place] | REQUEST/DOS | | | | [place] | [address] | 04/30/20) | | | | [address] | | | | | | [phone] | | | +--------+ + + + [...] | Visit | | [address] [facility] [address] | | | | | | [place] | | | | | | [address] | | | | | | | | +--------+ + + + + | 03/18/ | Office | Physical Medicine | Jovana Dawson | | | 2019 | Visit | and Rehabilitation | [address]ELANY Man [address] | | | | | | [address] [facility] | | | | | | [address] [place] | | | | | | [address] | | | | | | | | +--------+ + + + + | 04/01/ | Appointment | Oncology | Deny Mcmanus, | | 2019 | | | [address] | | | | | | [address] [place] | | | | | | [place] [address] | | | | | | [phone] | | | | | | | | +--------+ + + + + | 04/08/ | Procedure | Physical Medicine | Leonard De Leon | | | 2019 | visit | and Rehabilitation | MD Audelia [address] | | | | | | [place] | | | | | | [address] | | | | | | | | +--------+ + + + + | 04/30/ | Office | Cardiology | Shad Saavedra, | | | 2019 | Visit | | [address] | | | | | | [place], | | | | | | [place] [address] | | | | | | [phone] | | | | | | | | +--------+ + + + + + + +--------+ + + | Name | Type | Priori | Associated Diagnoses | Order Schedule | | | | ty | | | + + +--------+ + + | * [facility] [place] | Outpatient | Routin | SVT | Ordered: 02/03/2020 | | Cardiology - AMB | Referral | e | (supraventricular | | | Referral | | | tachycardia) (HCC) | | + + +--------+ + + documented as of this encounter Visit Diagnoses + + | Diagnosis | + + | SVT (supraventricular tachycardia) (HCC) - Primary Other specified cardiac | | dysrhythmias | + + documented in this encounter"
--- OUTSIDE RECORDS SUMMARY | ~2020-03-13 | XMS | Encounter Summary ---
Demographics + + + | Address | [address] | | | [place] [address] | + + + | Home Phone [...] Author + + + | Author | [facility] | + + + | Organization | [facility] | + + + | Address [...] Team Providers + +------+ + | Care Charging Board Operator Name | Role | Phone | + +------+ + | Burton Masters MD | PCP | | + +------+ + Encounter Details +--------+ + + + + | Date | Type | Department | Care Team | Description | +--------+ + + + + | 01/29/ | Pharmacy | Specialty Pharmacy | | | | 2018 | Visit | Services [address] | | | | | | [address] | | | | | | [place], [place] | | | | | | [address] | | | | | | [phone] | | | +--------+ + + + [...] [address] | | | | | | [place], [place] | | | | | | [address] | | | | | | [phone] | | | | | | | | +--------+---------+ + + + documented as of this encounter Visit Diagnoses Not on filedocumented in this encounter"
--- OUTSIDE RECORDS SUMMARY | ~2020-03-13 | XMS | Encounter Summary ---
Demographics + + + | Address | [address] | | | [place] [address] | + + + | Home Phone | | + + + | Preferred Language | Unknown | + + + | Marital Status | | + + + | Restorationist Affiliation | Unknown | + + + | Race | Unknown | + + + | Ethnic Group | Unknown | + + + Author + + + | Author | [facility] | | | and [place] | + + + | Organization | [facility] | | [...] Team Providers + +------+ + | Care Rim Fire Charger Operator Name | Role | Phone | [...] Description | +--------+--------+ + + + | 03/04/ | Refill | [facility] [place] [facility] | Burton Masters, | Medication Refill | | 2020 | | [facility]IC[facility] [place] | [address] | | | | | [address] | [place] | | | | | [place] | [address] | | | | | [address] | | | | | | [phone] | | | +--------+--------+ + + + [...] [place] | | | | | | [address] | | | | | | | | +--------+ + + + + | 03/18/ | Office | Physical Medicine | Jovana Dawson | | | 2019 | Visit | and Rehabilitation | MELANY Man [address] | | | | | | [address] [facility] | | | | | | [address] [place] | | | | | | [address] | | | | | | | | +--------+ + + + + | 04/01/ | Appointment | Oncology | Deny Mcmanus, | | | 2019 | | | MD [address] | | | | | | [place] | | | | | | [place] [address] | | | | | | [phone] | | | | | | | | +--------+ + + + + | 04/08/ | Procedure | Physical Medicine | Leonard De Leon | | | 2019 | visit | and Rehabilitation | MD Kiki Win | | | | | | [place] | | | | | | [address] | | | | | | | | +--------+ + + + + | 04/30/ | Office | Cardiology | Shad Saavedra, | | | 2019 | Visit | | MD Alan [address] | | | | | | [place], | | | | | | [place] [address] | | | | | | [phone] | | | | | | | | +--------+ + + + + documented as of this encounter Visit Diagnoses Not on filedocumented in this encounter"
--- OUTSIDE RECORDS SUMMARY | ~2020-03-13 | XMS | Encounter Summary ---
Demographics + + + | Address | [address] | | | [place] [address] | + + + | Home Phone | | + + + | Preferred Language | Unknown | + + + | Marital Status | | + + + | Anabaptism Affiliation | Unknown | + + + | Race | Unknown | + + + | Ethnic Group | Unknown | + + + Author + + + | Author | [facility] | | | and [place] | + + + | Organization | [facility] | | | [...] Team Providers + +------+ + | Care Internal Investigator Name | Role | Phone | + +------+ + | Burton Masters MD | PCP | | + +------+ + Reason for Visit + + + | Reason | Comments | + + + | Appointment | | + + + Encounter Details +--------+ + + + + | Date | Type | Department | Care Team | Description | +--------+ + + + + | 09/26/ | Telephone | [facility] | BravoPresley ansari, | Appointment | | 2019 | | CARDIOLOGY [place] | [address] | | | | | [address] | [place], [place] | | | | | [place], [place] | [address] | | | | | [address] | | | | | | [phone] | | | +--------+ + + + [...] [address] | | | | | | [place] | | | | | | [address] | | | | | | | | +--------+ + + + + | 03/18/ | Office | Physical Medicine | Jovana Dawson | | | 2019 | Visit | and Rehabilitation | MELANY Man [address] | | | | | | [address] [facility] | | | | | | [address] [place] | | | | | | [address] | | | | | | | | +--------+ + + + + | 04/01/ | Appointment | Oncology | Deny Mcmanus, | | 2019 | | | [address] | | | | | | [place], | | | | | | [place] [address] | | | | | | [phone] | | | | | | | | +--------+ + + + + | 04/08/ | Procedure | Physical Medicine | Leonard De Leon | | | 2019 | visit | and Rehabilitation | MD [address]iki Win | | | | | | [place], [place] | | | | | | [address] | | | | | | | | +--------+ + + + + | 04/30/ | Office | Cardiology | Shad Saavedra, | | | 2019 | Visit | | MD Alan Cruz | | | | | | [place], | | | | | | [place] [address] | | | | | | [phone] | | | | | | | | +--------+ + + + + documented as of this encounter Visit Diagnoses Not on filedocumented in this encounter"
--- OUTSIDE RECORDS SUMMARY | ~2020-03-13 | XMS | Encounter Summary ---
Demographics + + + | Address | [address] | | | [place] [address] | + + + | Home Phone | | + + + | Preferred Language | Unknown | + + + | Marital Status | | + + + | Scientologist Affiliation | Unknown | + + + | Race | Unknown | + + + | Ethnic Group | Unknown | + + + Author + + + | Author | [facility] | | | and [place] | + + + | Organization | [facility] | | | [...] Team Providers + +------+ + | Care Medical Assistant Float Name | Role | Phone | + +------+ + | Burton Masters MD | PCP | | + +------+ + Encounter Details +--------+ + + + + | Date | Type | Department | Care Team | Description | +--------+ + + + + | 01/17/ | Anesthesia | [facility] | [place]un [place] | | | 2018 | Event | [facility] | MD Benjie [address] | | | | | [address] | [address] [place] [place] | | | | | [place] | [address] | | | | | [address] | | | | | | [phone] | | | +--------+ + + + + Anesthesia Record + + + + + | Procedure Name | Responsible | Anesthesia Start | Anesthesia Stop Time | | | Anesthesiologist | Time | | + + + + + | [facility] | | | | | [facility] | | | | + + + + + + + | No events on file. | + + +------+ | Meds | +------+ + + + No medications | on file. | + + + + + | No agents on file. | + + + + | No blood administrations on file. | + + + + | No LDAs on file. | + + documented in this encounter Social [...] [place] | | | | | | [address] | | | | | | | | +--------+ + + + + | 03/18/ | Office | Physical Medicine | Jovana Dawson | | | 2019 | Visit | and Rehabilitation | MELANY Man | | | | | | [address] [facility] | | | | | | [address] [place] | | | | | | [address] | | | | | | | | +--------+ + + + + | 04/01/ | Appointment | Oncology | Deny Mcmanus, | | | 2019 | | | MD Alan [address] | | | | | | [place], | | | | | | [place] [address] | | | | | | [phone] | | | | | | | | +--------+ + + + + | 04/08/ | Procedure | Physical Medicine | Leonard De Leon | | | 2019 | visit | and Rehabilitation | MD Kiki Win | | | | | | [place] | | | | | | [id number] | | | | | | | | +--------+ + + + + | 04/30/ | Office | Cardiology | Shad Saavedra, | | | 2019 | Visit | | MD Alan Cruz | | | | | | [place], | | | | | | [place] [address] | | | | | | [phone] | | | | | | | | +--------+ + + + + documented as of this encounter Visit Diagnoses Not on filedocumented in this encounter"
--- OUTSIDE RECORDS SUMMARY | ~2020-03-13 | XMS | Encounter Summary ---
Demographics + + + | Address | [address] | | | [place] [address] | + + + | Home Phone | | + + + | Preferred Language | Unknown | + + + | Marital Status | | + + + | Judaism Affiliation | Unknown | + + + | Race | Unknown | + + + | Ethnic Group | Unknown | + + + Author + + + | Author | [facility] | | | and [place] | + + + | Organization | [facility] | | [...] Team Providers + +------+ + | Care Application Defense Manager Name | Role | Phone | [...] Description | +--------+--------+ + + + | 03/29/ | Refill | [facility] | uBrton Masters, | Medication Refill | | 2018 | | [facility] [place] | [address] | | | | | [address] | [place] | | | | | [place] | [address] | | | | | [address] | | | | | | [phone] | | | +--------+--------+ + + + [...] [place] | | | | | | [address] | | | | | | | | +--------+ + + + + | 03/18/ | Office | Physical Medicine | Jovana Dawson | | | 2019 | Visit | and Rehabilitation | [address] | | | | | | [address] | | | | | | [address] [place] | | | | | | [address] | | | | | | | | +--------+ + + + + | 04/01/ | Appointment | Oncology | Deny Mcmanus, | | 2019 | | | MD [address] | | | | | | [place] | | | | | | [place] [address] | | | | | | [phone] | | | | | | | | +--------+ + + + + | 04/08/ | Procedure | Physical Medicine | Leonard De Leon | | 2019 | visit | and Rehabilitation | T, MD Kiki [address] | | | | | | [place] | | | | | | [address] | | | | | | | | +--------+ + + + + | 04/30/ | Office | Cardiology | Shad Saavedra, | | | 2019 | Visit | | MD Alan [address] | | | | | | [place], | | | | | | [place] [address] | | | | | | [phone] | | | | | | | | +--------+ + + + + documented as of this encounter Visit Diagnoses Not on filedocumented in this encounter"
--- OUTSIDE RECORDS SUMMARY | ~2020-03-13 | XMS | Encounter Summary ---
Demographics + + + | Address | [address] | | | [place] [address] | + + + | Home Phone | | + + + | Preferred Language | Unknown | + + + | Marital Status | | + + + | Synagogue Affiliation | Unknown | + + + | Race | Unknown | + + + | Ethnic Group | Unknown | + + + Author + + + | Author | [facility] | | | and [place] | + + + | Organization | [facility] | | | [...] Team Providers + +------+ + | [facility] Office Supervisor Name | Role | Phone | [...] + + | Closed | Specialty | Physical | Diagnoses | Sonam, | Haley, | | | Services | Medicine and | Back pain, | Burton Rizzo, | Leonard Win MD | | | Required | Rehabilitatio | unspecified | [address] | | | | n | back | [address] | [address] [place] | | | | | location, | [place], | [place], [place] | | | | | unspecified | [place] [address] | [address] Phone: | | | | | back pain | Phone: | [phone] | | | | | laterality, | [phone] | Fax: | | | | | unspecified | Fax: | [phone] | | | | | chronicity | [phone] | | +--------+ + + + + + Reason for Visit + + + | Reason | Comments | + + + | Medication | | | Management | | + + + Encounter Details +--------+---------+ + + + | Date | Type | Department | Care Team | Description | +--------+---------+ + + + | 04/11/ | Office | [facility] | Burton Masters, | Back pain, | | 2018 | Visit | [facility] [place] | [address] | unspecified back | | | | [address] | [place] | location, | | | | [place] | [address] | unspecified back | | | | [address] | | pain laterality, | | | | [phone] | | unspecified | | | | [...] + + + | Blood Pressure | 110/86 | 04/11/2018 10:54 AM | | | | | PDT | | + + + + + | Pulse | 94 | 04/11/2018 10:54 AM | | | | | PDT | | + + + + + | Temperature | 36.3 C (97.4 F) | 04/11/2018 10:54 AM | | | | | PDT | | + + + + + | Respiratory Rate | - | - | | + + + + + | Oxygen Saturation | 98% | 04/11/2018 10:54 AM | | | | | PDT | | + + + + + | Inhaled Oxygen | - | - | | | Concentration | | | | + + + + + | Weight | 97.2 kg (214 lb 4.6 | 04/11/2018 10:54 AM | | | | oz) | PDT | | + + + + + | Height | - | - | | + + + + + | Body Mass Index | 32.58 | 01/16/2018 3:06 PM | | | | | PDT | | + + + + + documented in this encounter Progress Notes Burton Masters MD - 04/11/2018 10:45 AM PDTFormatting of this note might be different f rom the original. Subjective: Patient ID: Ashley Webb is a 33 y.o. female. Chief Complaint Patient presents with Medication Management Back Pain This is a chronic problem. The problem occurs rarely. The problem is unchanged. The pain is at a severity of 4/10. The pain is moderate. Pertinent negatives include no abdominal pain, chest pain or fever. Past Medical History: Diagnosis Date Abdominal pain [...] 3 Years of education: 15 Occupational History [employer] Social History Main Topics Smoking status: Current Every Day Smoker Packs/day: 0.25 Years: 16.00 Types: Cigarettes Start date: 03/03/2001 Smokeless tobacco: Never Used Alcohol use 0.0 oz/week Comment: RARE Drug use: No Sexual activity: Yes Other Topics Concern None Social History Narrative Merged History Encounter Review of Systems Constitutional: Negative. Negative for fever. HENT: Negative. Eyes: Negative. Respiratory: Negative. Cardiovascular: Negative. Negative for chest pain. Gastrointestinal: Negative. Negative for abdominal pain. Genitourinary: Negative. Musculoskeletal: Positive for back pain. Skin: Negative. Neurological: Negative. Endo/Heme/Allergies: Negative. Psychiatric/Behavioral: Negative. . Objective: BP 110/86 | Pulse 94 | Temp 36.3 C (97.4 F) (Temporal) | Wt 97.2 kg (214 lb 4.6 oz) | LMP 03/29/2018 (Approximate) | SpO2 98% | ? No | BMI 32.58 kg/m Physical Exam Constitutional: She is well-developed, [...] back pain laterality, unspecified chronometer repairer nicity * [facility] Phys[facility] - AMB Referral Insomnia: stress Caught [email or web address] Requested Prescriptions Signed Prescriptions Disp Refills HYDROcodone-acetaminophen (NORCO) 5-325 mg per tablet 90 tablet 0 Sig: Take 1 tablet by mouth every 8 hours as needed for Pain. ALPRAZolam (XANAX) 0.25 mg tablet 20 tablet 1 Sig: Take 1-2 tablets by mouth Twice daily as needed for Anxiety. New Prescriptions ALPRAZOLAM (XANAX) 0.25 MG TABLET Take 1-2 tablets by mouth Twice daily as needed for Anxiety. 25 minute visit > 50% counseling regarding the listed conditions, options for treatment, a nd possible risks. documented in this encounter Plan of Treatment +--------+ + + + + | Date | Type | Specialty | Care Team | Description | +--------+ + + + + | 03/17/ | Virtual | Neurosurgery | Zuhair Flores | | | 2019 | Office | | MD Joselito [address] | | | | Visit | | [address] | | | | | | [place] | | | | | | [address] | | | | | | | | +--------+ + + + + | 03/18/ | Office | Physical Medicine | Jovana Dawson | | | 2019 | Visit | and Rehabilitation | MELANY Man [address] | | | | | | [address] [facility] | | | | | | [address] [place] | | | | | | [address] | | | | | | | | +--------+ + + + + | 04/01/ | Appointment | Oncology | Deny Mcmanus, | | 2019 | | | [address] | | | | | | [place], | | | | | | [place] [address] | | | | | | [phone] | | | | | | | | +--------+ + + + + | 04/08/ | Procedure | Physical Medicine | Leonard De Leon | | | 2019 | visit | and Rehabilitation | T, [address] | | | | | | [facility], [place] | | | | | | [address] | | | | | | | | +--------+ + + + + | 04/30/ | Office | Cardiology | Shad Saavedra, | | | 2019 | Visit | | [address] | | | | | | [place], | | | | | | [place] [address] | | | | | | [phone] | | | | | | | | +--------+ + + + + + + +--------+ + + | Name | Type | Priori | Associated Diagnoses | Order Schedule | | | | ty | | | + + +--------+ + + | * [facility] | Outpatient | Routin | Back pain, | Ordered: 04/11/2018 | | Physiatry - AMB | Referral | e | [...]
--- OUTSIDE RECORDS SUMMARY | ~2020-03-13 | XMS | Encounter Summary ---
Demographics + + + | Address | [address] | | | [place] [address] | + + + | Home Phone | | + + + | Preferred Language | Unknown | + + + | Marital Status | | + + + | Caodaism Affiliation | Unknown | + + + | Race | Unknown | + + + | Ethnic Group | Unknown | + + + Author + + + | Author | [facility] | | | and [place] | + + + | Organization | [facility] | | | and [...] Team Providers + +------+ + | Care Transformation Consultant Name | Role | Phone | + +------+ + | Burton Masters MD | PCP | | + +------+ + Reason for Referral Diagnostic/Screening (Routine) +--------+--------+ + + + + | Status | Reason | Specialty | Diagnoses / | Referred By | Referred To | | | | | Procedures | Contact | Contact | +--------+--------+ + + + + | Closed | | Radiology | Diagnoses | Keri | [facility] | | | | | SVT | MD Shad | [address] | | | | | (supraventri | [address] | [place], | | | | | cular | [address] | [place] | | | | | tachycardia) | [place], | [address] | | | | | (HCC) | [place] [address] | Phone: | | | | | Procedures | Phone: | [phone] | | | | | ECHO | [phone] | Fax: | | | | | Complete | Fax: | [phone] | | | | | | [phone] | | +--------+--------+ + + + + Reason for Visit Diagnostic/Screening (Routine) +--------+--------+ + + + + | Status | Reason | Specialty | Diagnoses / | Referred By | Referred To | | | | | Procedures | Contact | Contact | +--------+--------+ + + + + | Closed | | Radiology | Diagnoses | Keri, | [facility] | | | | | SVT | MD Shad | [address] | | | | | (supraventri | [address] | [place], | | | | | cular | [address] | [place] | | | | | tachycardia) | [place], | [address] | | | | | (HCC) | [place] [address] | Phone: | | | | | Procedures | Phone: | [phone] | | | | | ECHO | [phone] | Fax: | | | | | Complete | Fax: | [phone] | | | | | | [phone] | | +--------+--------+ + + + + Encounter Details +--------+ + + + + | Date | Type | Department | Care Team | Description | +--------+ + + + + | 07/31/ | Hospital | [facility] | Keri Elvavinicius, | SVT | | 2019 | Encounter | MED CTR ECHO [address] | MD [address] | (supraventricular | | | | [address] [place] | [place], | tachycardia) ([facility]) | | | | [place] [address] | [place] [address] | | | | | [phone] | [phone] | | | | | | | [...] tablets by | 60 | 0 | 07/12/20 | | | 0.5 mg tablet | mouth 3 times daily | tablet | | 19 | 9 | | | as needed. | | | | | + + + +---------+ + + | buPROPion | Take 1 tablet by | 180 | 1 | 07/05/20 | | | (WELLBUTRIN) 100 mg | mouth 2 times daily. | tablet | | 19 | 9 | | tablet | | | | | | + + + +---------+ + + | | Take 2 tablets for | 50 | 1 | 04/25/20 | | | diphenoxylate-atropi | diarrhea, then one | tablet | | 19 | 9 | | ne (LOMOTIL) | tablet every 2 hours | | | | | | 2.5-0.025 mg per | as needed. | | | | | | tablet [...] + +---------+ + + | nortriptyline | Take 1 capsule by | 30 | 0 | 06/11/20 | | | (PAMELOR) 25 mg | mouth nightly. | capsule | | 19 | 9 | | capsule | | | | [...] +---------+ + + | oxyCODONE | Take 1 tablet by | 90 | 0 | 07/22/20 | | | (ROXICODONE) 5 mg | mouth every 8 hours | tablet | | 19 | 9 | | tablet | as needed for Pain. | | | | | + + + +---------+ + + | prochlorperazine | Take 1 tablet by | 30 | 0 | 07/05/20 | | | 10 mg tablet | [...] [address] | | | | | | [address] | | | | | | [address] [place] | | | | | | [address] | | | | | | | | +--------+ + + + + | 04/01/ | Appointment | Oncology | Deny Mcmanus, | | | 2019 | | | [address] | | | | | | [place], | | | | | | [place] [address] | | | | | | [phone] | | | | | | | | +--------+ + + + + | 04/08/ | Procedure | Physical Medicine | Leonard De Leon | | 2019 | visit | and Rehabilitation | TMD [address] | | | | | | [place] | | | | | | [address] | | | | | | | | +--------+ + + + + | 04/30/ | Office | Cardiology | Shad Saavedra, | | | 2019 | Visit | | [address] | | | | | | [place], | | | | | | [place] [address] | | | | | | [phone] | | | | | | | | +--------+ + + + + documented as of this encounter Procedures + +--------+ + + + | Procedure Name | Priori | Date/Time | Associated Diagnosis | Comments | | | ty | | | | + +--------+ + + + | ECHO COMPLETE | Routin | 07/31/2019 | SVT | Results for this | | | e | 12:20 PM | (supraventricular | procedure are in the | | | | PDT | tachycardia) ([facility]) | results section. | + +--------+ + + + documented in this encounter Results ECHO Complete (07/31/2019 12:20 PM PDT) + +--------+ + + + | Component | Value | Ref Range | Performed | Pathologist | | | | | At | Signature | + +--------+ + + + | Patient | 177 | | [facility] | | | Weight | | | | | | (lbs) | | | | | + +--------+ + + + | Patient | 5' 8" | | [facility] | | | Height | | | | | + +--------+ + + + | LVIDd | 4.98 | cm | [facility] | | + +--------+ + + + | FS | 22 | % | [facility] | | + +--------+ + + + | LA volume | 59.56 | mL | [facility] | | + +--------+ + + + | Aortic arch | 2.75 | cm | [facility] | | + +--------+ + + + | AV mean | 3 | mmHg | [facility] | | | gradient | | | | | + +--------+ + + + | Aortic | 3.46 | cm2 | [facility] | | | Valve Area | | | | | | by | | | | | | Continuity | | | | | | VTI | | | | | + +--------+ + + + | MV mean | 1.64 | mmHg | [facility] | | | gradient | | | | | + +--------+ + + + | MV Area by | 3.7 | cm2 | [facility] | | | P 1/2 | | | | | | method | | | | | + +--------+ + + + | MV Area by | 3.15 | cm2 | [facility] | | | Continuity | | | | | | Equation | | | | | + +--------+ + + + | IVRT | 115.34 | msec | [facility] | | + +--------+ + + + | LVOT | 2.24 | cm | [facility] | | | diameter | | | | | + +--------+ + + + | LVOT peak | 103.49 | cm/s | [facility] | | | racquel | | | | | + +--------+ + + + | LVOT peak | 22.72 | cm | [facility] | | | VTI | | | | | + +--------+ + + + | AV peak racquel | 116.29 | cm/s | [facility] | | + +--------+ + + + | AV VTI | 25.89 | cm | [facility] | | + +--------+ + + + | AV peak | 5.41 | mmHg | [facility] | | | gradient | | | | | + +--------+ + + + | MV peak | 3.46 | mmHg | [facility] | | | gradient | | | | | + +--------+ + + + | MV Pressure | 59.4 | msec | [facility] | | | 1/2 time | | | | | + +--------+ + + + | LA Volume | 31 | mL/m2 | [facility] | | | Index | | | | | + +--------+ + + + | AV LVOT | 4.28 | mmHg | [facility] | | | Peak | | | | | | Gradient | | | | | + +--------+ + + + | AV LVOT | 2.13 | mmHg | [facility] | | | Mean | | | | | | Gradient | | | | | + +--------+ + + + | TR Peak | 18 | mmHg | [facility] | | | Gradient | | | | | + +--------+ + + + | TR Velocity | 211.69 | cm | [facility] | | + +--------+ + + + | LV | 7.91 | cm | [facility] | | | Diastolic | | | | | | Length 4C | | | | | + +--------+ + + + | LV | 59 | % | [facility] | | | Boston's | | | | | | Biplane EF | | | | | + +--------+ + + + | LV ED | 108.7 | ml | [facility] | | | Volume | | | | | | (Boston's) | | | | | + +--------+ + + + | LV ED | 56 | ml/m2 | [facility] | | | Volume | | | | | | Index | | | | | + +--------+ + + + | LV ES | 44.15 | ml | [facility] | | | Volume | | | | | + +--------+ + + + | LVOT Mean | 67.46 | cm/s | [facility] | | | Velocity | | | | | + +--------+ + + + | MV E' | 10 | cm/s | [facility] | | | Septal | | | | | | Velocity | | | | | + +--------+ + + + | MV | 411.53 | cm/s2 | [facility] | | | Deceleratio | | | | | | n Floyd | | | | | + +--------+ + + + | MV | 204.82 | msec | [facility] | | | Deceleratio | | | | | | n Time | | | | | + +--------+ + + + | MV E/A | 1.39 | | [facility] | | | Ratio | | | | | + +--------+ + + + | MV Mean | 59.95 | cm/s | [facility] | | | Velocity | | | | | + +--------+ + + + | MV Peak | 60.82 | cm/s | [facility] | | | A-Wave | | | | | + +--------+ + + + | MV Peak | 84.29 | cm/s | [facility] | | | E-Wave | | | | | + +--------+ + + + | AV Mean | 81.33 | cm/s | [facility] | | | Velocity | | | | | + +--------+ + + + | LA/Aorta | 0.94 | | [facility] | | | Ratio | | | | | + +--------+ + + + | LA Area | 19.58 | cm2 | [facility] | | + +--------+ + + + | MV E/E | 8.43 | | [facility] | | | SEPTAL | | | | | + +--------+ + + + | LA Major | 0.2589 | cm | [facility] | | + +--------+ + + + | LV ES | 23 | ml/m2 | [facility] | | | Volume | | | | | | Index | | | | | + +--------+ + + + | Aortic Root | 3.26 | cm | [facility] | | | Diameter | | | | | + +--------+ + + + | IVS | 0.8 | cm | [facility] | | | Diastolic | | | | | | Thickness | | | | | | MM | | | | | + +--------+ + + + | LVPW | 1.12 | cm | [facility] | | | Diastolic | | | | | | Thickness | | | | | | MM | | | | | + +--------+ + + + | IVS | 0.94 | cm | [facility] | | | Systolic | | | | | | Thickness | | | | | | MM | | | | | + +--------+ + + + | LV Systolic | 3.87 | cm | [facility] | | | Diameter | | | | | | MM | | | | | + +--------+ + + + | LVPW | 1.36 | cm | [facility] | | | Systolic | | | | | | Thickness | | | | | | MM | | | | | + +--------+ + + + | AV Cusp | 1.77 | cm | [facility] | | | Seperation | | | | | | MM | | | | | + +--------+ + + + | LA Systolic | 3.05 | cm | [facility] | | | Diameter | | | | | | MM | | | | | + +--------+ + + + | TAPSE | 2.3 | cm | [facility] | | + +--------+ + + + | LVEF-TTE | 60 | % | [facility] | | | TRANSTHORAC | | | | | | IC ECHO | | | | | + +--------+ + + + | RA PRESSURE | 3 | mmHg | [facility] | | + +--------+ + + + | RVSP | 21 | mmHg | [facility] | | | Estimated | | | | | + +--------+ + + + + + | Specimen | + + | | + + + + + | Narrative | Performed At | + + + | 1. | [facility] | | Essentially a normal 2D echo/M-mode/Doppler/color Doppler study. | | | LVEF is 60%. | | + + + + +---------+ [...] dysrhythmias | + + documented in this encounter
--- OUTSIDE RECORDS SUMMARY | ~2020-03-13 | XMS | Encounter Summary ---
Demographics + + + | Address | [address] | | | [place] [address] | + + + | Home Phone | | + + + | Preferred Language | Unknown | + + + | Marital Status | | + + + | Rastafari Affiliation | Unknown | + + + | Race | Unknown | + + + | Ethnic Group | Unknown | + + + Author + + + | Author | [facility] | | | and [place] | + + + | Organization | [facility] | | | and [...] Team Providers + +------+ + | Care Building Wrecker Name | Role | Phone | + +------+ + | Burton Masters MD | PCP | | + +------+ + Reason for Visit +--------+ + | Reason | Comments | +--------+ + | Other | | +--------+ + Encounter Details +--------+ + + + + | Date | Type | Department | Care Team | Description | +--------+ + + + + | 09/10/ | Telephone | [facility] | Deny Mcmanus, | Other | | 2019 | | [facility] | [address] | | | | | [facility] CLIN[facility] [address] [place], | | | | | [address] | [place] [address] | | | | | [place] [address] | [phone] | | | | | [phone] | | | +--------+ + + + [...] | | | Visit | | [address] | | | | | | [place], [place] | | | | | | [address] | | | | | | | | +--------+ + + + + | 03/18/ | Office | Physical Medicine | Jovana Dawson | | | 2019 | Visit | and Rehabilitation | [address] | | | | | | [address] | | | | | | [address] [place] | | | | | | [address] | | | | | | | | +--------+ + + + + | 04/01/ | Appointment | Oncology | Deny Mcmanus, | | 2019 | | | MD [address] | | | | | | [place] | | | | | | [place] [address] | | | | | | [phone] | | | | | | | | +--------+ + + + + | 04/08/ | Procedure | Physical Medicine | Leonard De Leon | | 2019 | visit | and Rehabilitation | MD [address] | | | | | | [place], [place] | | | | | | [address] | | | | | | | | +--------+ + + + + | 04/30/ | Office | Cardiology | Shad Saavedra, | | | 2019 | Visit | | [address] | | | | | | [place], | | | | | | [place] [address] | | | | | | [phone] | | | | | | | | +--------+ + + + + + +------+--------+ + + | Name | Type | Priori | Associated Diagnoses | Order Schedule | | | | ty | | | + +------+--------+ + + | Comprehensive | Lab | STAT | Chronic myeloid | Expected: 12/11/2019 | | Metabolic Panel | | | leukemia (HCC) | (Approximate), | | | | | | Expires: 09/10/2020 | + +------+--------+ + + documented as of this encounter Results BCR-ABL1 for CML and All (12/25/2019 11:06 [...] | | | | | | | Research [facility], | | | | | | [place] [...] e13a2 | | | | | | ([id number]) and | | | | | | [...] | | | | | e14a2 and [id number] | | | | | | transcripts. [...] | | | | | and Jade S: Seminars | | | | | | in Hematology 2002; | | | | | | 40 (suppl2):62-68. | | | | | | 2. carlito Sheikh | | | | | | al. Blood 2010; 116: | | | | | | [id number]. 3. NCCN | | | | | [...] | REFERENCE LAB | | [place], [place] [id number] Washer Repairman: Miguelina Lorenzo MD, Phone: | ELZA - [place] | | [phone] Performed at: - [facility] [address] [facility], [place] [id number] Washer Repairman: Miguelina Lorenzo MD, | | | Phone: [phone] | | + + + + + + + + | Performing | Address | City/State/Zipcode | Phone Number | | Organization | | | | + + + + + | REFERENCE LAB | [address] | [place], [place] | [phone] | | [facility] | [address] | [address] | | + + + + + [...] | | Monocytes | | K/uL | [facility] | | | | | | MEDICAL | | | | | | CENTER - | | | | | | LABORATORY | | + + + + + + | Absolute | 0.11 | 0.00 - 0.40 | [facility] | | | Eosinophils | | K/uL | [facility] | [...] | | nRBC | | K/uL | [facility] | | [...] ranges: Trim. Absolute (K/uL) Percentage (%) | . [facility] | | 1st 0.003-0.091 K/uL 0.0-0.9% 2nd 0.007-0.247 K/uL | MEDICAL CENTER | | 0.1-2.0% 3rd 0.018-0.456 K/uL 0.1-2.0% | - LABORATORY | + + + + + + + + | Performing | Address | City/State/Zipcode | Phone Number | | Organization | | | | + + + + + | [facility] | [address] | [place] | [phone] | | [facility] | | [address] | | | - LABORATORY | | | | + + + + + documented in this encounter Visit Diagnoses + + | Diagnosis | + + | Chronic myeloid leukemia (HCC) - Primary Chronic myeloid leukemia, without mention of | | having achieved remission | + + documented in this encounter"
--- OUTSIDE RECORDS SUMMARY | ~2020-03-13 | XMS | Encounter Summary ---
Demographics + + + | Address | [address] | | | [place] [address] | + + + | Home Phone | | + + + | Preferred Language | Unknown | + + + | Marital Status | | + + + | Yarsanism Affiliation | Unknown | + + + | Race | Unknown | + + + | Ethnic Group | Unknown | + + + Author + + + | Author | [facility] | | | and [place] | + + + | Organization | [facility] | | | [...] Team Providers + +------+ + | Care Hogshead Press Operator Name | Role | Phone | [...] | +--------+ + + + + | 05/14/ | Telephone | [facility] | Deny Mcmanus, | Other | | 2019 | | MED CTR MED[facility] | [address] | | | | | [facility]OGY CLINIC [address] [place], | | | | | [address] | [place] [address] | | | | | [place] [address] | [phone] | | | | | [phone] | | | +--------+ + + + [...] [place] | | | | | | [address] | | | | | | | | +--------+ + + + + | 03/18/ | Office | Physical Medicine | Jovana Dawson | | | 2019 | Visit | and Rehabilitation | [address] | | | | | | [address] | | | | | | [address] [place] | | | | | | [address] | | | | | | | | +--------+ + + + + | 04/01/ | Appointment | Oncology | Deny Mcmanus, | | | 2019 | | | [address] | | | | | | [address] [place] | | | | | | [place] [address] | | | | | | [phone] | | | | | | | | +--------+ + + + + | 04/08/ | Procedure | Physical Medicine | Leonard De Leon | | | 2019 | visit | and Rehabilitation | MD [address]iki Win | | | | | | [place] | | | | | | [address] | | | | | | | | +--------+ + + + + | 04/30/ | Office | Cardiology | Shad Saavedra, | | | 2019 | Visit | | MD [address] | | | | | | [place] [place] | | | | | | [place] [address] | | | | | | [phone] | | | | | | | | +--------+ + + + + documented as of this encounter Visit Diagnoses Not on filedocumented in this encounter"
--- OUTSIDE RECORDS SUMMARY | ~2020-03-13 | XMS | Encounter Summary ---
Demographics + + + | Address | [address] | | | [place] [address] | + + + | Home Phone | | + + + | Preferred Language | Unknown | + + + | Marital Status | | + + + | Mandaeism Affiliation | Unknown | + + + | Race | Unknown | + + + | Ethnic Group | Unknown | + + + Author + + + | Author | [facility] | | | and [place] | + + + | Organization | [facility] | | [...] Team Providers + +------+ + | Care Biofuels Manager Name | Role | Phone | + +------+ + | Burton Masters MD | PCP | | + +------+ + Reason for Visit Evaluate & Treat (Urgent) +--------+ + + + + + | Status | Reason | Specialty | Diagnoses / | Referred By | Referred To | | | | | Procedures | Contact | Contact | +--------+ + + + + + | Closed | Specialty | Cardiology | Diagnoses | Keri, | Presley Olmos | | | Services | | SVT | MD Shad | MD Luis Manuel | | | Required | | (supraventri | [address] | | | | | cular | [address] | Dr Song | | | | | tachycardia) | [place], | [facility] [address] | | | | | (HCC) | [place] [address] | [address] Phone: | | | | | Procedures | Phone: | [phone] | | | | | DR OLMOS'S | [phone] | Fax: | | | | | OFFICE | Fax: | [phone] | | | | | CLOSED FOR | [phone] | | | | | | THE DAY. | | | | | | | NEED TO CALL | | | | | | | TO SEE IF | | | | | | | CONTRACTED | | | | | | | ON MON. | | | +--------+ + + + + + Encounter Details +--------+---------+ + + + | Date | Type | Department | Care Team | Description | +--------+---------+ + + + | 08/08/ | Office | [facility] | Presley Olmos, | SVT | | 2019 | Visit | CARDIOLOGY BRITTANIE | [address] | (supraventricular | | | | [address] | [address] [place] [address] | tachycardia) (HCC) | | | | [place], [place] | [address] | (Primary Dx); | | | | [address] | | Tobacco abuse | | | | [phone] | | | +--------+---------+ + + + [...] + + + | Blood Pressure | 132/78 | 08/08/2019 2:41 PM | | | | | PDT | | + + + + + | Pulse | 97 | 08/08/2019 2:41 PM | | | | | PDT | | + + + + + | Temperature | - | - | | + + + + + | Respiratory Rate | - | - | | + + + + + | Oxygen Saturation | 97% | 08/08/2019 2:41 PM | | | | | PDT | | + + + + + | Inhaled Oxygen | - | - | | | Concentration | | | | + + + + + | Weight | 82.6 kg (182 lb) | 08/08/2019 2:41 PM | | | | | PDT | | + + + + + | Height | 172.7 cm (5' 8") | 08/08/2019 2:41 PM | | | | | PDT | | + + + + + | Body Mass Index | 27.67 | 08/08/2019 2:41 PM | | | | | PDT | | + + + + + documented in this encounter Patient Instructions Patient Instructions Presley Olmos MD - 08/08/2019 3:00 PM PDTPotassium chloride 20 mi ll equivalents twice per day for the first day and then 20 mill equivalents per day thereaft er Avoid caffeinated products and alcohol Take 81 mg of aspirin Monday night with dinner Arrive at 9 AM on Monday. Nothing to eat or drink after midnight the night before. PREPARATION FOR ABLATION PROCEDURE: 1. Nothing to eat 8 hours prior to procedure. Clear liquids such as water or apple juice ar e OK until 3 hours before the procedure. Avoid anything you cannot see through. 2. Take 81 mg of aspirin with dinner the night before the procedure, and continue that for one month (81 mg per day) after the procedure. 3. Please bring a medication list with you to the hospital. 4. Anticipate that you will be discharged home on the same day of the procedure. Rarely, yo u are kept overnight, but our expectation is that you will be discharged home. 5. Avoid lifting anything over 20 pounds for 1 week post procedure. 6. DO NOT TAKE ANY MEDICATIONS ON THE MORNING OF THE PROCEDURE. If you are taking a blood t hinner medication, please take this the night before the procedure at 6pm. 7. Office follow-up will be arranged 2 months post ablation. 8. Please call our office should any issues arise prior to scheduled follow-up! Consider getting a sleep study. You probably have sleep apnea documented in this encounter Progress Notes Presley Olmos MD - 08/08/2019 3:00 PM PDTFormatting of this note might be different fr om the original. ELECTROPHYSIOLOGY OUTPATIENT CONSULT PATIENT NAME: Ashley Webb : 1985: AGE: 34 y.o. Phone- [phone] (home) Date of consultation: 08/11/2019 PRIMARY CARE: Burton Masters MD Reason for Consultation: Recurrent episodes of rapid SVT Requesting Physician: Shad Saavedra MD [address] [place] [address] Plan EP PROBLEMS ADDRESSED AT TODAY'S VISIT Problem List Chronic myeloid leukemia (CML), BCR/ABL-positive Overview CML was diagnosed in December 2017 and has been treated with chemotherapy(Imatinib). BCR /ABL positive CML. SVT (supraventricular tachycardia) Overview She has had recurrent tachycardias with heart rates up to 227 bpm, for the past 7 years. The usual duration is just a few minutes. Recently enthesis March 05, 2019) she had a rapi d heart rate of 227 bpm associated with significant discomfort in she was treated in the [facility] room with intravenous diltiazem. Sinus rhythm was converted within 2 hours and adeno sine x2 apparently did not help. The LV systolic function was normal by echo. A beta-block er made her feel poorly with side effects, and digoxin also was not well-tolerated. She marium es 2 caffeinated beverages per day. Recommendations: Options include different beta-anjelica or verapamil versus ablation. Given the very fast h eart rate and her relatively young age, I recommended an ablation. The risks benefits and r ationale been discussed in detail and she is keen to proceed tomorrow (August 12, 2019). Tobacco abuse Overview She still smokes 1/2 to 1 pack of cigarettes per day. I strongly encouraged her to stop smoking. COMPREHENSIVE PROBLEM LIST Patient Active Problem List Diagnosis Date Noted Chronic myeloid leukemia (CML), BCR/ABL-positive ([facility]) 01/10/2019 Priority: High Note Last Updated: 08/11/2019 CML was diagnosed in December 2017 and has been treated with chemotherapy(Imatinib). BCR /ABL positive CML. SVT (supraventricular tachycardia) ([facility]) 07/01/2019 Note Last Updated: 08/11/2019 She has had recurrent tachycardias with heart rates up to 227 bpm, for the past 7 years. The usual duration is just a few minutes. Recently enthesis March 05, 2019) she had a rapi d heart rate of 227 bpm associated with significant discomfort in she was treated in the [facility] room with intravenous diltiazem. Sinus rhythm was converted within 2 hours and adeno sine x2 apparently did not help. The LV systolic function was normal by echo. A beta-block er made her feel poorly with side effects, and digoxin also was not well-tolerated. She marium es 2 caffeinated beverages per day. Recommendations: Options include different beta-anjelica or verapamil versus ablation. Given the very fast h eart rate and her relatively young age, I recommended an ablation. The risks benefits and r ationale been discussed in detail and she is keen to proceed tomorrow (August 12, 2019). Labile mood 03/08/2019 Nausea 01/03/2019 Tobacco abuse 01/02/2019 Note Last Updated: 08/11/2019 She still smokes 1/2 to 1 pack of cigarettes per day. I strongly encouraged her to stop smoking. Alcohol use 01/02/2019 Lumbar spondylosis 03/07/2017 Major depressive disorder, recurrent episode ([facility]) 04/30/2013 Note Last Updated: 02/13/2019 Overview: stable on Depakote and Wellbutrin. Dx name changed by system update 07/28/2017 Overview: stable on Depakote and Wellbutrin. Dx name changed by system update 07/28/2017 RECOMMENDATIONS: Potassium chloride 20 mill equivalents twice per day for the first day and then 20 mill equ ivalents per day thereafter Avoid caffeinated products and alcohol Take 81 mg of aspirin Monday night with dinner Arrive at 9 AM on Monday morning. Nothing to eat or drink after midnight the night before. Consider a sleep study. HISTORY OF PRESENT ILLNESS: This patient is being seen because of recurrent episodes of SVT that were first no keily 7 years ago. Initially ,episodes lasted for just a few minutes but recently lasted for over 2 hours before converting to the emergency room with intravenous diltiazem. Intravenou s adenosine was given first and apparently did not help. A narrow complex SVT was seen with P waves on the terminal portion of the QRS complex. A heart rate of 222 bpm with seen. A beta-anjelica lead to side effects in the past and digoxin also made her feel poorly. She wo uld like ablative therapy rather than different medication. An echocardiogram was normal in [place]. During the episodes of SVT she becomes very short of breath and has chest dis comfort. The recent episode lasted for over 2 hours, but most of the episodes last for less than 5 minutes. 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 Chronic myelogenous leukemia was diagnosed in December 2018 and has been treated with chemo therapy. She is on imatinib now.. Caffeine intake consist of 2 coffees per day. She recently filed for divorce and is legally from her they have 5 childr en including [id number] twins and 3-year-old, 7-year-old and 9-year-old. He [place] [facility] [place] Enjoys fishing. He smokes 1/2 to 1 pack of cigarettes per d ay. Takes occasional THC for nausea. He works as a tech in the emergency room at [employer] in [place] (until December 2018,, when she started chemotherapy). She is now on long-term disability. Her mother is a insurance defense paralegal at the [employer]. Family history: Both grandmothers had a stroke and heart attack. Both grandfathers had a myocardial infarc tion. Her paternal grandmother and diabetes mellitus. Maternal aunt had esophageal cancer. Paternal aunt had non-Hodgkin's lymphoma. REVIEW OF RELEVANT MEDICAL HISTORY AND DATA: Past Medical History: Diagnosis Date Abdominal pain [...] Pulpitis Sciatica Shoulder pain Tachycardia Tobacco use Past Surgical History: Procedure Laterality Date BREAST CYST ASPIRATION Left SECTION 02/05/2010 Dr. Cristina MARTINEZ SECTION N/A 10/14/2016 Procedure: Repeat ; Surgeon: Dorota Beal DO; Location: [facility] MAIN OR SECTION N/A 01/16/2018 Procedure: Repeat , Bilateral Tubal Ligation; Surgeon: Dorota Beal DO ; Location: 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 Drug use: Yes Types: Marijuana Sexual activity: Yes Partners: Male Other Topics Concern Not on file Social History Narrative Merged History Encounter Social History Tobacco Use Smoking Status Current Every Day Smoker Packs/day: 0.50 Years: 16.00 Pack years: 8.00 Types: Cigarettes Start date: 03/03/2001 Smokeless Tobacco Never Used Family History Problem Relation Age of Onset [...] cancer Maternal Aunt Heart disease Maternal Aunt Allergies Allergen Reactions Tape [Adhesive & Tape] Rash Current Medications Outpatient Encounter Medications as of 08/08/2019 Medication Sig Dispense Refill ALPRAZolam (XANAX) 0.5 mg tablet Take 1-2 tablets by mouth 3 times daily as needed. 60 tablet 0 buPROPion (WELLBUTRIN) 100 mg tablet Take 1 tablet by mouth 2 times daily. 180 tablet 1 diphenoxylate-atropine (LOMOTIL) 2.5-0.025 mg per tablet Take 2 tablets for diarrhea, t hen one tablet every 2 hours as needed. 50 tablet 1 imatinib (GLEEVEC) 400 mg tablet Take 400 mg by mouth Daily. lamoTRIgine (LAMICTAL) 25 mg tablet Take 1 tablet by mouth Daily. 60 tablet 0 loperamide (IMODIUM A-D) 2 MG tablet 2 tablets by mouth followed by 1 tablet by mouth a fter each loose stool; Max 16 mg/day 50 tablet 1 nortriptyline (PAMELOR) 25 mg capsule Take 1 capsule by mouth nightly. 30 capsule 0 ondansetron (ZOFRAN) 8 MG tablet Take 1 tablet by mouth every 12 hours. 30 tablet 2 oxyCODONE (ROXICODONE) 5 mg tablet Take 1 tablet by mouth every 8 hours as needed for P ain. 90 tablet 0 potassium chloride (MICRO-K) 10 mEq CR capsule Take 1 capsule by mouth 2 times daily. 6 0 capsule 11 prochlorperazine 10 mg tablet Take 1 tablet by mouth every 8 hours as needed. 30 tablet 0 raNITIdine (ZANTAC) 150 mg tablet Take 1 tablet by mouth Daily. No facility-administered encounter medications on file as of 08/08/2019. DATA: Laboratory values which I reviewed 08/11/2019 are as follows: Lab Results Component Value Date WBC 8.2 04/26/2019 RBC 4.53 04/26/2019 HGB 14.7 04/26/2019 HCT 42.6 04/26/2019 PLT 112 (L) 04/26/2019 Lab Results Component Value Date NA 139 04/26/2019 K 3.8 04/26/2019 CL 111 (H) 04/26/2019 CO2 24 04/26/2019 ANIONGAP 4 04/26/2019 BUN 9 04/26/2019 Lab Results Component Value Date CHOL 131 (L) 01/27/2011 TRIG 86 01/27/2011 LDL 69 01/27/2011 Lab Results Component Value Date BNP 40 03/05/2019 TSH 1.48 03/05/2019 ROS I have personally reviewed and agree with ROS listed by [facility] pozo. All other systems are reviewed and negative. PHYSICAL EXAM: BP 132/78 | Pulse 97 | Ht 1.727 m (5' 8") | Wt 82.6 kg (182 lb) | LMP 07/13/2019 (Exact Date) | SpO2 97% | BMI 27.67 kg/m Physical Exam Constitutional: She is oriented to person, place, and time. She appears well-developed and well-nourished. No distress. Well-appearing mildly overweight lady in no distress. HENT: Head: Normocephalic and atraumatic. Eyes: Pupils are equal, round, and reactive to light. Neck: No JVD present. No thyromegaly present. Cardiovascular: Normal rate, regular rhythm, normal heart sounds and intact distal pulses. Exam reveals no gallop and no friction rub. No murmur heard. Pulmonary/Chest: Effort normal and breath sounds normal. No respiratory distress. She has n o wheezes. She has no rales. Abdominal: Soft. Bowel sounds are normal. There is no tenderness. There is no guarding. Musculoskeletal: She exhibits no edema or tenderness. Neurological: She is alert and oriented to person, place, and time. Skin: Skin is warm and dry. She is not diaphoretic. Psychiatric: She has a normal mood and affect. Her behavior is normal. Judgment and thought content normal. Vitals reviewed. Presley Olmos MD 08/11/2019 21:20 *This report has been prepared using a voice recognition system. The report was reviewed f or accuracy, however, sound-alike word errors, addition and/or deletions may occur. If there is any question about this report please contact me. Patient Instructions Potassium chloride 20 mill equivalents twice per day for the first day and then 20 mill equ ivalents per day thereafter Avoid caffeinated products and alcohol Take 81 mg of aspirin Monday with dinner Arrive at 9 AM on Monday morning. Nothing to eat or drink after midnight the night before. PREPARATION FOR ABLATION PROCEDURE: 1. Nothing to eat 8 hours prior to procedure. Clear liquids such as water or apple juice ar e OK until 3 hours before the procedure. Avoid anything you cannot see through. 2. Take 81 mg of aspirin with dinner the night before the procedure, and continue that for one month (81 mg per day) after the procedure. 3. Please bring a medication list with you to the hospital. 4. Anticipate that you will be discharged home on the same day of the procedure. Rarely, yo u are kept overnight, but our expectation is that you will be discharged home. 5. Avoid lifting anything over 20 pounds for 1 week post procedure. 6. DO NOT TAKE ANY MEDICATIONS ON THE MORNING OF THE PROCEDURE. If you are taking a blood t hinner medication, please take this the night before the procedure at 6pm. 7. Office follow-up will be arranged 2 months post ablation. 8. Please call our office should any issues arise prior to scheduled follow-up! Consider getting a sleep study. You probably have sleep apnea Adela Dotson, Service Dismantler - 08/08/2019 3:00 PM Mireille HARVEY Note- Electrophysiology Patient ID: Ashley Webb is a 34 y.o. female. Review of Systems Constitutional: Positive for malaise/fatigue and weight loss. Negative for chills and fever . HENT: Positive for congestion. Negative for sore throat. Respiratory: Positive for cough. Negative for shortness of breath. Cardiovascular: Positive for chest pain and leg swelling. Negative for palpitations. Gastrointestinal: Positive for abdominal pain. Negative for blood in stool. Genitourinary: Negative for hematuria. Musculoskeletal: Positive for myalgias. Neurological: Negative for dizziness and sensory change. Have you ever had a sleep study? (NO) Do you use oxygen? (NO) Do you use CPAP? (NO) Do you snore? (YES) Do you fall asleep for no reason during the day? (NO) Do you stop breathing at night? (YES) Do you feel excessively tired during the day? (YES) Tdocumented in this encounter Plan of Treatment +--------+ + + + + | Date | Type | Specialty | Care Team | Description | +--------+ + + + + | 03/17/ | Virtual | Neurosurgery | Zuhair Flores | | | 2019 | Office | | MD Kiki [address] | | | | Visit | | [place] [address] | | | | | | [place] | | | | | | [address] | | | | | | | | +--------+ + + + + | 04/01/ | Appointment | Oncology | Deny Mcmanus, | | | 2019 | | | [address] | | | | | | [place], | | | | | | [place] [address] | | | | | | [phone] | | | | | | | | +--------+ + + + + | 04/08/ | Procedure | Physical Medicine | Leonard De Leon | | | 2019 | visit | and Rehabilitation | TMD [address] | | | | | | [place] | | | | | | [address] | | | | | | | | +--------+ + + + + | 04/30/ | Office | Cardiology | Shad Saavedra, | | | 2019 | Visit | | [address] | | | | | | [place] | | | | | | [place] [address] | | | | | | [phone] | | | | | | | | +--------+ + + + + documented as of this encounter Visit Diagnoses + + | Diagnosis | + + | SVT (supraventricular tachycardia) (HCC) - Primary Other specified cardiac | | dysrhythmias | + + | Tobacco abuse Tobacco use disorder | + + documented in this encounter
--- OUTSIDE RECORDS SUMMARY | ~2020-03-13 | XMS | Encounter Summary ---
Demographics + + + | Address | [address] | | | [place] [address] | + + + | Home Phone | | + + + | Preferred Language | Unknown | + + + | Marital Status | | + + + | Islam Affiliation | Unknown | + + + | Race | Unknown | + + + | Ethnic Group | Unknown | + + + Author + + + | Author | [facility] | | | and [place] | + + + | Organization | [facility] | | [...] Team Providers + +------+ + | Care Jewelry Consultant Name | Role | Phone | [...] Description | +--------+--------+ + + + | 03/05/ | Refill | [facility] [place] [facility] | Burton Masters, | Medication Refill | | 2018 | | [facility] [place] | [address] | | | | | [address] | [place] | | | | | [place] | [address] | | | | | [address] | | | | | | [phone] | | | +--------+--------+ + + + [...] [place] | | | | | | [address] | | | | | | | | +--------+ + + + + | 03/18/ | Office | Physical Medicine | Jovana Dawson | | | 2019 | Visit | and Rehabilitation | [address] | | | | | | [address] | | | | | | [address] [place] | | | | | | [address] | | | | | | | | +--------+ + + + + | 04/01/ | Appointment | Oncology | Deny Mcmanus, | | 2019 | | | MD [address] | | | | | | [place] | | | | | | [place] [address] | | | | | | [phone] | | | | | | | | +--------+ + + + + | 04/08/ | Procedure | Physical Medicine | Leonard De Leon | | 2019 | visit | and Rehabilitation | T, MD [address] | | | | | | [place] | | | | | | [address] | | | | | | | | +--------+ + + + + | 04/30/ | Office | Cardiology | Shad Saavedra, | | | 2019 | Visit | | MD [address] | | | | | | [place], | | | | | | [place] [address] | | | | | | [phone] | | | | | | | | +--------+ + + + + documented as of this encounter Visit Diagnoses Not on filedocumented in this encounter"
--- OUTSIDE RECORDS SUMMARY | ~2020-03-13 | XMS | Encounter Summary ---
Demographics + + + | Address | [address] | | | [place] [address] | + + + | Home Phone [...] Team Providers + +------+ + | Care Direct Care Worker Name | Role | Phone | + [...] Description | +--------+--------+ + + + | 10/23/ | Refill | [facility] [place] [facility] | Burton Masters, | Medication Refill | | 2019 | | [facility] [place] | [address] | | | | | [address] | [place] | | | | | [place] | [address] | | | | | [address] | | | | | | [phone] | | | +--------+--------+ + + + [...] [place] | | | | | | [address] | | | | | | | | +--------+ + + + + | 03/18/ | Office | Physical Medicine | Jovana Dawson | | | 2019 | Visit | and Rehabilitation | [address] | | | | | | [address] [facility] | | | | | | [address] [place] | | | | | | [address] | | | | | | | | +--------+ + + + + | 04/01/ | Appointment | Oncology | Deny Mcmanus, | | | 2019 | | | MD [address] | | | | | | [place] | | | | | | [place] [address] | | | | | | [phone] | | | | | | | | +--------+ + + + + | 04/08/ | Procedure | Physical Medicine | Leonard De Leon | | | 2019 | visit | and Rehabilitation | MD Kiki Win | | | | | | [place] | | | | | | [address] | | | | | | | | +--------+ + + + + | 04/30/ | Office | Cardiology | Shad Saavedra, | | | 2019 | Visit | | MD [address] | | | | | | [place], | | | | | | [place] [address] | | | | | | [phone] | | | | | | | | +--------+ + + + + documented as of this encounter Visit Diagnoses Not on filedocumented in this encounter"
--- OUTSIDE RECORDS SUMMARY | ~2020-03-13 | XMS | Encounter Summary ---
Demographics + + + | Address | [address] | | | [place] [address] | + + + | Home Phone | | + + + | Preferred Language | Unknown | + + + | Marital Status | | + + + | Sikhism Affiliation | Unknown | + + + | Race | Unknown | + + + | Ethnic Group | Unknown | + + + Author + + + | Author | [facility] | | | and [place] | + + + | Organization | [facility] | | | [...] Team Providers + +------+ + | Care Drive In Theater Attendant Name | Role | Phone | + +------+ + | Burton Masters MD | PCP | | + +------+ + Reason for Visit + + + | Reason | Comments | + + + | Paperwork | | + + + Encounter Details +--------+ + + + + | Date | Type | Department | Care Team | Description | +--------+ + + + + | 03/05/ | Telephone | [facility] | Burton Masters, | Paperwork | | 2019 | | MEDIC[facility] [place] | [address] | | | | | [address] | [place] | | | | | [place] | [address] | | | | | [address] | | | | | | [phone] | | | +--------+ + + + [...] [place] | | | | | | [address] | | | | | | | | +--------+ + + + + | 03/18/ | Office | Physical Medicine | Jovana Dawson | | | 2019 | Visit | and Rehabilitation | MELANY Man [address] | | | | | | [address] | | | | | | [address] [place] | | | | | | [address] | | | | | | | | +--------+ + + + + | 04/01/ | Appointment | Oncology | Deny Mcmanus, | | | 2019 | | | [address] | | | | | | [address] [place] | | | | | | [place] [address] | | | | | | [phone] | | | | | | | | +--------+ + + + + | 04/08/ | Procedure | Physical Medicine | Leonard De Leon | | | 2019 | visit | and Rehabilitation | MD [address]iki Win | | | | | | [place] | | | | | | [address] | | | | | | | | +--------+ + + + + | 04/30/ | Office | Cardiology | Shad Saavedra, | | | 2019 | Visit | | MD [address] | | | | | | [place] | | | | | | [place] [address] | | | | | | [phone] | | | | | | | | +--------+ + + + + documented as of this encounter Visit Diagnoses Not on filedocumented in this encounter"
--- OUTSIDE RECORDS SUMMARY | ~2020-03-13 | XMS | Encounter Summary ---
Demographics + + + | Address | [address] | | | [place] [address] | + + + | Home Phone | | + + + | Preferred Language | Unknown | + + + | Marital Status | | + + + | Gnosticism Affiliation | Unknown | + + + | Race | Unknown | + + + | Ethnic Group | Unknown | + + + Author + + + | Author | [facility] | | | and [place] | + + + | Organization | [facility] | | | [...] Team Providers + +------+ + | Care Civil Rights Representative Name | Role | Phone | + +------+ + | Burton Masters MD | PCP | | + +------+ + Encounter Details +--------+ + + + + | Date | Type | Department | Care Team | Description | +--------+ + + + + | 11/08/ | [facility] | [facility] | Dorota Beal | | | 2018 | Encounter | MED [facility] | DO [address] | | | | | [address] | [address] | | | | | [place] | [place] [address] | | | | | [address] | [phone] | | | | | [phone] | | | +--------+ + + + [...] + + + | Blood Pressure | - | - | | + + + + + | Pulse | - | - | | + + + + + | Temperature | 36.8 C (98.2 F) | 11/08/2017 11:19 AM | | | | | PST | | + + + + + | Respiratory Rate | 18 | 11/08/2017 11:19 AM | | | | | PST [...] documented in this encounter Discharge Instructions Instructions Genesis Jimenez RN - 11/08/2017Discharge Education for the Undelivered Patie nt You can use the following list as [...] tablet by | 30 | 1 | 10/16/20 | | | (ZOFRAN ODT) 8 mg | mouth every 8 hours | tablet | | 17 | 8 | | disintegrating | as needed for | | | | | | tablet | Nausea. | | | | | [...] [place] | | | | | | [address] | | | | | | | | +--------+ + + + + | 03/18/ | Office | Physical Medicine | Jovana Dawson | | | 2019 | Visit | and Rehabilitation | MELANY Man [address] | | | | | | [address] | | | | | | [address] [place] | | | | | | [address] | | | | | | | | +--------+ + + + + | 04/01/ | Appointment | Oncology | Deny Mcmanus, | | | 2019 | | | [address] | | | | | | [place] | | | | | | [place] [address] | | | | | | [phone] | | | | | | | | +--------+ + + + + | 04/08/ | Procedure | Physical Medicine | Leonard De Leon | | | 2019 | visit | and Rehabilitation | MD [address] | | | | | | [place] | | | | | | [address] | | | | | | | | +--------+ + + + + | 04/30/ | Office | Cardiology | Shad Saavedra, | | | 2019 | Visit | | MD [address] | | | | | | [place], | | | | | | [place] [address] | | | | | | [phone] | | | | | | | [...] | acetaminophen (TYLENOL) tablet | Given | 11/08/19 | 650 mg | | | | 650 mg 650 mg, Oral, EVERY 4 | | 18 11:33 | | | | | HOURS PRN, Pain, Starting Wed | | AM PST | | | | | 11/08/17 at 1125 | | | | | | + +--------+ +--------+------+------+ +---+---+ | | | +---+---+ documented in this encounter"
--- OUTSIDE RECORDS SUMMARY | ~2020-03-13 | XMS | Encounter Summary ---
Demographics + + + | Address | [address] | | | [place] [address] | + + + | Home Phone | | + + + | Preferred Language | Unknown | + + + | Marital Status | | + + + | Anglican Affiliation | Unknown | + + + | Race | Unknown | + + + | Ethnic Group | Unknown | + + + Author + + + | Author | [facility] | | | and [place] | + + + | Organization | [facility] | | [...] Team Providers + +------+ + | Care Drier Take Off Tender Name | Role | Phone | + +------+ + | Nhi Oneal MD | PCP | | + +------+ + Encounter Details +--------+ + + + + | Date | Type | Department | Care Team | Description | +--------+ + + + + | 05/19/ | Hospital | [facility] | Suresh Koch | Shoulder pain, left | | 2013 | Encounter | MED CTR XRAY [address] MD [address] [place] [address] | | | | | [place] | [place] | | | | | [place] [address] | [address] | | | | | [phone] | | | | | | | [place] | | +--------+ + + + + Social History + +-------+ +--------+------+ | Tobacco Use | Types | Packs/Day | Years | Date | | | | | Used | | + +-------+ +--------+------+ | Current Every Day | | 0.5 | | | | Smoker | | | | | + +-------+ +--------+------+ + + +---------+ + | Alcohol Use | Drinks/Week | oz/Week | Comments | + + +---------+ + | No | | | | + + +---------+ + [...] this encounter Last Filed Vital Signs + +---------+ + + | Vital Sign | Reading | Time Taken | Comments | + +---------+ + + | Blood Pressure | 130/81 | 05/19/2014 9:00 AM | | | | | PDT | | + +---------+ + + | Pulse | 97 | 05/19/2014 9:00 AM | | | | | PDT | | + +---------+ + + | Temperature | - | - | | + +---------+ + + | Respiratory Rate | - | - | | + +---------+ + + | Oxygen Saturation | - | - | | + +---------+ + + | Inhaled Oxygen | - | - | | | Concentration | | | | + +---------+ + + | Weight | - | - | | + +---------+ + + | Height | - | - | | + +---------+ + + | Body Mass Index | - | - | | + +---------+ + + documented in this encounter Medications [...] [address] | | | | | | [address] | | | | | | [address] [place] | | | | | | [address] | | | | | | | | +--------+ + + + + | 04/01/ | Appointment | Oncology | Deny Mcmanus, | | | 2019 | | | [address] | | | | | | [facility], | | | | | | [place] [address] | | | | | | [phone] | | | | | | | | +--------+ + + + + | 04/08/ | Procedure | Physical Medicine | Leonard De Leon | | 2019 | visit | and Rehabilitation | T, [address] | | | | | | [place] | | | | | | [address] | | | | | | | | +--------+ + + + + | 04/30/ | Office | Cardiology | Shad Saavedra, | | | 2019 | Visit | | [address] | | | | | | [place], | | | | | | [place] [address] | | | | | | [phone] | | | | | | | | +--------+ + + + + documented as of this encounter Procedures + +--------+ + + + | Procedure Name | Priori | Date/Time | Associated Diagnosis | Comments | | | ty | | | | + +--------+ + + + | FL SHOULDER | Routin | 05/19/2014 | Shoulder pain, | Results for this | | INJECTION LEFT FOR | e | 9:26 AM | left | procedure are in the | | MRI OR CT | | PDT | | results section. | + +--------+ + + + documented in this encounter Results FL Shoulder Injection Left for MRI or CT (05/19/2014 9:26 AM PDT) + + | Specimen | + + | | + + + + + | Narrative | Performed At | + + + | FL SHOULDER INJECTION LEFT FOR MRI OR CT 05/19/2014 8:45 AM | [facility] | | HISTORY: SHOULDER PAIN. COMPARISON: None. PROTOCOL: After | LAB | | explaining the risks and benefits of the procedure, informed consent | | | was obtained from the patient. Risks discussed included bleeding and | | | infection. Under fluoroscopic guidance, the shoulder joint was | | | localized. This area was cleansed and draped in the usual sterile | | | fashion. Lidocaine was used for local anesthesia. Using a 3.5" | | | 22-gauge needle, the shoulder joint was accessed. Subsequently, 12 cc | | | of a solution containing lidocaine, Omnipaque, and 0.1 cc gadolinium | | | was then injected. The patient tolerated the procedure well. | | | FINDINGS: Contrast is visualized within the shoulder joint consistent | | | with successful arthrography. There is no evidence for | | | full-thickness rotator cuff tear. IMPRESSION - Successful | | | shoulder arthrogram, no evidence for full-thickness rotator cuff | | | tear. Dictated and Signed by: Jeffrey Nicholas MD Electronically | | | signed: 05/19/2014 10:33 AM | | + + + + + | Procedure Note | + + | Ruben, Rad Results In - 05/19/2014 10:36 AM PDT FL SHOULDER INJECTION LEFT FOR MRI OR | | CT 05/19/2014 8:45 AMHISTORY: SHOULDER PAIN.COMPARISON: None.PROTOCOL: After explaining | | the risks and benefits of the procedure, informedconsent was obtained from the patient. | | Risks discussed included bleeding andinfection. Under fluoroscopic guidance, the | | shoulder joint was localized. Thisarea was cleansed and draped in the usual sterile | | fashion. Lidocaine was usedfor local anesthesia. Using a 3.5" 22-gauge needle, the | | shoulder joint wasaccessed. Subsequently, 12 cc of a solution containing lidocaine, | | Omnipaque, and0.1 cc gadolinium was then injected. The patient tolerated the procedure | | well.FINDINGS:Contrast is visualized within the shoulder joint consistent with | | successfularthrography. There is no evidence for full-thickness rotator cuff | | tear.IMPRESSION -Successful shoulder arthrogram, no evidence for full-thickness rotator | | cufftear.Dictated and Signed by: Jeffrey Nicholas MD Electronically signed: 05/19/2014 10:33 | | AM | | | |FINDINGS: | |Contrast is visualized within the shoulder joint consistent with successful | |arthrography. There is no evidence for full-thickness rotator cuff tear. | | | |IMPRESSION - | |Successful shoulder arthrogram, no evidence for full-thickness rotator cuff | |tear. | | | |Dictated and Signed by: Jeffrey Nicholas MD | | Electronically signed: 05/19/2014 10:33 AM | + + + +---------+ + + | Performing | Address | City/State/Zipcode | Phone Number | | Organization | | | | + +---------+ + + | [facility] | | | [phone] | + +---------+ + + | [facility] | | | [phone] | + +---------+ + + documented in this encounter Visit Diagnoses + + | Diagnosis | + + | Shoulder pain, left Pain in joint, shoulder region | + + documented in this encounter Administered Medications + +--------+ + +------+------+ | Medication Order | MAR | Action | Dose | Rate | Site | | | Action | Date | | | | + +--------+ + +------+------+ | gadopentetate (MAGNEVIST) | Given | 05/19/20 | 0.01 mLs | | | | injection 0.01 mL 0.01 mL, | | 14 9:27 | | | | | Intra-articular, ONCE PRN, Other, | | AM PDT | | | | | Starting 05/19/14 at 0925, | | | | | | | For 1 dose, MRI | | | | | | + +--------+ + +------+------+ +---+---+ | | | +---+---+ + +-------+ +-------+---+---+ | iohexol (OMNIPAQUE 300) 300 | Given | 05/19/20 | 5 mLs | | | | mg/mL injection 5 mL 5 mL, | | 14 9:27 | | | | | Intra-articular, ONCE PRN, Other, | | AM PDT | | | | | Starting 05/19/14 at 0925, | | | | | | | For 1 dose, Radiology | | | | | | + +-------+ +-------+---+---+ +---+---+ | | | +---+---+ + +-------+ +-------+---+ + | lidocaine 1% injection 5 mL 5 | Given | 05/19/20 | 5 mLs | | Other | | mL, Intradermal, ONCE, Mon | | 14 9:45 | | | (Comment | | 05/19/14 at 0945, For 1 dose | | AM PDT | | | ) | + +-------+ +-------+---+ + +---+---+ | | | +---+---+ documented in this encounter
--- OUTSIDE RECORDS SUMMARY | ~2020-03-13 | XMS | Encounter Summary ---
Demographics + + + | Address | [address] | | | [place] [address] | + + + | Home Phone [...] Team Providers + +------+ + | Care Manager Media Relations Name | Role | Phone | + +------+ + | Burton Masters MD | PCP | | + +------+ + Reason for Visit +--------+ + | Reason | Comments | +--------+ + | Cough | Since Monday. 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 [address] | Multiple URI | | | | [address] | [place] [address] | | | | | [address] [facility] | [phone] | | | | | [place] [address] | | | | | | [phone] | | | +--------+---------+ + + + [...] + + + | Blood Pressure | 150/68 | 11/18/2017 11:19 AM | | | | | PST | | + + + + + | Pulse | 120 | 11/18/2017 11:19 AM | | | | | PST | | + + + + + | Temperature | 36.6 C (97.8 F) | 11/18/2017 11:19 AM | | | | | PST | | + + + + + | Respiratory Rate | 22 | 11/18/2017 11:19 AM | | | | | PST | | + + + + + | Oxygen Saturation | 98% | 11/18/2017 11:19 AM | | | | | PST | | + + + + + | Inhaled Oxygen | - | - | | | Concentration | | | | + + + + + | Weight | 110.5 kg (243 lb 9.7 | 11/18/2017 11:19 AM | | | | oz) | PST | | + + + + + | Height | 172.7 cm (5' 8") | 11/18/2017 11:19 AM | | | | | PST | | + + + + + | Body Mass Index | 37.04 | 11/18/2017 11:19 AM | | | | | PST | | + + + + + documented in this encounter Patient Instructions Patient Instructions Cata Canchola ARNP - 11/18/2017 11:00 AM PSTSymptomatic care. Be seen if worsening over the next 48 hours. Mucinex DM every 4 hours as needed for cough and congestion. documented in this encounter Progress Notes Cata Canchola ARNP - 11/18/2017 11:00 AM PSTFormatting of this note might be differ ent from the original. Ashley Webb is a 32 y.o. female Chief Complaint: Cough (Since Monday. 27 weeks ) HPI Ill for the past 4 days with a painful cough, coughing up green stuff and has chest pa in with coughing and breathing. Chest feels tight and heavy. PREVENTIVE CARE/PRIOR VISITS 1. Any recommendations from Health Maintenance: Preventative Services TOPIC LAST DONE NEXT DUE Vaccine: Influenza 08/16/2014 07/07/2017 Cervical Cancer Screening (Pap Every 3 Years 21-64 ) 03/18/2016 03/18/2019 Vaccine: Dtap/Tdap/Td 07/29/2016 07/29/2026 Vaccine: Pneumococcal 19-64 (Ppsv23 Only) Medium Risk 2006 2. Any immunizations necessary: Immunization History Administered Date(s) Administered HEP A, 2 DOSE (ADULT) 11/19/2012, 12/19/2012 HEP B, 3 DOSE (ADULT) 11/19/2012 INFLUENZA PF QUAD(PED/ADOL/ADULT),PSKT or VIAL 08/16/2014 TDAP, (ADOL/ADULT) 10/02/2012, 07/29/2016 No Known Allergies Medications: Patient Reported Taking Dosage ondansetron (ZOFRAN ODT) 8 mg disintegrating tablet (Taking) Take 1 tablet by mouth every 8 hours as needed for Nausea. Number of times this order has been changed since signin Order Audit [place] 27-0.8 mg multivitamin tablet (Taking) Take 1 tablet by mouth Daily. Past Medical History She has a past [...] (N/A, 10/14/2016); Breast cyst aspiration ([place]); and shoulder surgery (08/2014). Family History: Her family history includes Alcohol abuse in her maternal grandfather; Cancer in her matern al aunt and paternal aunt; Diabetes in her maternal grandmother; Gout in her father; Heart a ttack in her maternal grandfather and paternal grandfather; Heart disease in her maternal au nt, maternal grandfather, and paternal grandfather; High blood pressure in her father, mater nal grandfather, mother, paternal grandfather, and paternal grandmother; High cholesterol in her father; Miscarriages / stillbirths in her maternal grandmother; Multiple sclerosis in h er mother; No Known Problems in her brother, child, child, child, paternal uncle, and sister ; Obesity in her paternal grandmother; Stroke in her maternal grandfather and maternal grand mother. Social History: Social History Social History Marital status: Spouse name: N/A Number of children: 3 Years of education: 15 Occupational History [employer] Social History Main Topics Smoking status: Current Every Day Smoker Packs/day: 0.50 Years: 16.00 Types: Cigarettes Start date: 03/03/2001 Smokeless tobacco: Never Used Alcohol use 0.0 oz/week Comment: RARE Drug use: No Sexual activity: Yes Other Topics Concern None Social History Narrative None Review of Systems Constitutional: Positive for fever. Energy level is decreased, appetite is decreased. Is 27 weeks with twins HENT: Positive for postnasal drip and sore throat. Negative for sinus pressure. Eyes: Negative. Respiratory: Positive for cough. Cough produces green, sometimes brown sputum. Has bad coughing fits that make her puk e or pee her pants. Chest feels tight and heavy. Cardiovascular: Positive for leg swelling. Some edema related to . Gastrointestinal: Negative for constipation, diarrhea, nausea and vomiting. Endocrine: Negative. Genitourinary: Negative. Musculoskeletal: No body aches, just sore ribs from coughing Skin: Negative. Allergic/Immunologic: Negative. Neurological: Negative for weakness and headaches. Hematological: Negative. Psychiatric/Behavioral: Negative. Objective: Vitals: 11/18/17 1119 BP: 150/68 Pulse: 120 Resp: 22 Temp: 36.6 C (97.8 F) TempSrc: Temporal SpO2: 98% Weight: 110.5 kg (243 lb 9.7 oz) Height: 1.727 m (5' 8") Physical Exam Constitutional: She is oriented to person, place, and time. She appears well-developed and well-nourished. No distress. HENT: Head: Atraumatic. Left Ear: External ear normal. Nose: Nose normal. Mouth/Throat: Oropharynx is clear and moist. No oropharyngeal exudate. Eyes: Conjunctivae and EOM are normal. Pupils are equal, round, and reactive to light. Left eye exhibits no discharge. No scleral icterus. Neck: No tracheal deviation present. No thyromegaly present. Cardiovascular: Ap reg. 116, regular with out murmur. Pulmonary/Chest: Breath sounds normal. No respiratory distress. She has no wheezes. She has no rales. She exhibits no tenderness. Abdominal: Soft. Bowel sounds are normal. There is no tenderness. Musculoskeletal: Normal range of motion. Just a trace of dependent edema. Lymphadenopathy: She has no cervical adenopathy. Neurological: She is alert and oriented to person, place, and time. Skin: Skin is warm and dry. She is not diaphoretic. No erythema. Psychiatric: She has a normal mood and affect. Her behavior is normal. Judgment and thought content normal. Nursing note and vitals reviewed. Results for orders placed or performed during the hospital encounter of 08/12/17 Culture, Urine Result Value Ref Range Culture >100,000 CFU/ml Escherichia coli Susceptibility Escherichia coli - (no method available) Ampicillin <=2 Sensitive ug/mL Ampicillin + Sulbactam <=2 Sensitive ug/mL Cefazolin <=4 Sensitive ug/mL Cefoxitin <=4 Sensitive ug/mL Ceftazidime <=1 Sensitive ug/mL Ceftriaxone <=1 Sensitive ug/mL Ciprofloxacin <=.25 Sensitive ug/mL Ertapenem <=.5 Sensitive ug/mL Gentamicin <=1 Sensitive ug/mL Meropenem <=.25 Sensitive ug/mL Nitrofurantoin <=16 Sensitive ug/mL Tobramycin <=1 Sensitive ug/mL Trimethoprim + Sulfamethoxazole <=20 Sensitive ug/mL Assessment: 1. Cough POCT Influenza A/B 2. Multiple URI Plans: 1. Cough - POCT Influenza A/B 2. Multiple URI 2. Flu test is negative. Follow-up: Return if symptoms worsen or fail to improve. Care instructions and warning signs were discussed. Medications per orders. Side effects discussed. Labs and investigations per orders. documented in this encounter Plan of Treatment +--------+ + + + + | Date | Type | Specialty | Care Team | Description | +--------+ + + + + | 03/17/ | Virtual | Neurosurgery | Zuhair Flores | | | 2019 | Office | | MD [address]el[address] | | | | Visit | | [place] [address] | | | | | | [place] | | | | | | [address] | | | | | | | | +--------+ + + + + | 04/01/ | Appointment | Oncology | Deny Mcmanus, | | | 2019 | | | [address] | | | | | | [place] | | | | | | [place] [address] | | | | | | [phone] | | | | | | | | +--------+ + + + + | 04/08/ | Procedure | Physical Medicine | Leonard De Leon | | | 2019 | visit | and Rehabilitation | MD Audelia [address] | | | | | | [place] | | | | | | [address] | | | | | | | | +--------+ + + + + | 04/30/ | Office | Cardiology | Shad Saavedra, | | | 2019 | Visit | | [address] | | | | | | [place], | | | | | | [place] [address] | | | | | | [phone] | | | | | | | | +--------+ + + + + documented as of this encounter Visit Diagnoses + + | Diagnosis | + + | Cough - Primary | + + | Multiple URI Acute upper respiratory infections of other multiple sites | + + documented in this encounter
--- OUTSIDE RECORDS SUMMARY | ~2020-03-13 | XMS | Encounter Summary ---
Demographics + + + | Address | [address] | | | [place] [address] | + + + | Home Phone | | + + + | Preferred Language | Unknown | + + + | Marital Status | | + + + | Adventist Affiliation | Unknown | + + + | Race | Unknown | + + + | Ethnic Group | Unknown | + + + Author + + + | Author | [facility] | | | and [place] | + + + | Organization | [facility] | | | and [...] Team Providers + +------+ + | Care Academic Support Assistant Name | Role | Phone | + [...] Description | +--------+--------+ + + + | 08/27/ | Refill | [facility] | Burton Masters, | Medication Refill | | 2019 | | [facility] [place] | [address] | | | | | [address] | [place] | | | | | [place] | [address] | | | | | [address] | | | | | | [phone] | | | +--------+--------+ + + + [...] [place] | | | | | | [address] | | | | | | | | +--------+ + + + + | 03/18/ | Office | Physical Medicine | Jovana Dawson | | | 2019 | Visit | and Rehabilitation | [address] | | | | | | [address] [facility] | | | | | | [address] [place] | | | | | | [address] | | | | | | | | +--------+ + + + + | 04/01/ | Appointment | Oncology | Deny Mcmanus, | | | 2019 | | | MD [address] | | | | | | [place] | | | | | | [place] [address] | | | | | | [phone] | | | | | | | | +--------+ + + + + | 04/08/ | Procedure | Physical Medicine | Leonard De Leon | | | 2019 | visit | and Rehabilitation | MD [address] | | | | | | [place] | | | | | | [address] | | | | | | | | +--------+ + + + + | 04/30/ | Office | Cardiology | Shad Saavedra, | | | 2019 | Visit | | MD [address] | | | | | | [place], | | | | | | [place] [address] | | | | | | [phone] | | | | | | | | +--------+ + + + + documented as of this encounter Visit Diagnoses Not on filedocumented in this encounter"
--- OUTSIDE RECORDS SUMMARY | ~2020-03-13 | XMS | Encounter Summary ---
Demographics + + + | Address | [address] | | | [place] [address] | + + + | Home Phone | | + + + | Preferred Language | Unknown | + + + | Marital Status | | + + + | Confucianist Affiliation | Unknown | + + + [...] Team Providers + +------+ + | Care Field Crop Ii Farmworker Name | Role | Phone | + +------+ + | Nhi Oneal MD | PCP | | + +------+ + Encounter Details +--------+ + + + + | Date | Type | Department | Care Team | Description | +--------+ + + + + | 01/27/ | Hospital | [facility] | | | | 2010 | Encounter | [facility] | | | | | | [address] | | | | | | [place] | | | | | | [address] | | | | | | [phone] | | | +--------+ + + + [...] [place] | | | | | | [address] | | | | | | | | +--------+ + + + + | 03/18/ | Office | Physical Medicine | Jovana Dawson | | | 2019 | Visit | and Rehabilitation | MELANY Man [address] | | | | | | [address] [facility] | | | | | | [place] | | | | | | [address] | | | | | | | | +--------+ + + + + | 04/01/ | Appointment | Oncology | Deny Mcmanus, | | | 2019 | | | [address] | | | | | | [place] | | | | | | [place] [address] | | | | | | [phone] | | | | | | | | +--------+ + + + + | 04/08/ | Procedure | Physical Medicine | Leonard De Leon | | | 2019 | visit | and Rehabilitation | MD Audelia [address] | | | | | | [place] | | | | | | [address] | | | | | | | | +--------+ + + + + | 04/30/ | Office | Cardiology | Shad Saavedra, | | | 2019 | Visit | | MD [address] | | | | | | [place], | | | | | | [place] [address] | | | | | | [phone] | | | | | | | | +--------+ + + + + documented as of this encounter Procedures + +--------+ + + + | Procedure Name | Priori | Date/Time | Associated Diagnosis | Comments | | | ty | | | | + +--------+ + + + | LIPID PROFILE | Routin | 01/27/2011 | | Results for this | | | e | 1:04 PM | | procedure are in the | | | | PDT | | results section. | + +--------+ + + + | CBC NO DIFFERENTIAL | Routin | 01/27/2011 | | Results for this | | | e | 1:04 PM | | procedure are in the | | | | PDT | | results section. | + +--------+ + + + | TSH | Routin | 01/27/2011 | | Results for this | | | e | 1:04 PM | | procedure are in the | | | | PDT | | results section. | + +--------+ + + + | VALPROIC ACID LEVEL | Routin | 01/27/2011 | | Results for this | | | e | 1:04 PM | | procedure are in the | | | | PDT | | results section. | + +--------+ + + + documented in this encounter Results TSH (01/27/2011 1:04 PM PDT) + + + + + + | Component | Value | Ref Range | Performed | Pathologist | | | | | At | Signature | + + + + + + | TSH | 0.76Comment: Testing | 0.34 - 5.60 | [facility] | | | | performed on the [facility] | uIU/mL | [facility] | | | | [facility] | | MEDICAL | | | | Analyzer. | | CENTER - | | | | | | LABORATORY | | + + + + + + + + | Specimen | + + | | + + + + + + + | Performing | Address | City/State/Zipcode | Phone Number | | Organization | | | | + + + + + | [facility] | [address] | [place] | [phone] | | [facility] | | [address] | | | - LABORATORY | | | | + + + + + | [facility] | [address] | [place], [place] | | | [facility] | | [address], [facility] | | | - LABORATORY | | | | + + + + + Lipid Profile (01/27/2011 1:04 PM PDT) + + + + + + | Component | Value | Ref Range | Performed | Pathologist | | | | | At | Signature | + + + + + + | Triglycerid | 86 | 35 - 160 mg/dL | [facility] | | | es | | | [facility] | | | | | | MEDICAL | | | | | | CENTER - | | | | | | LABORATORY | | + + + + + + | Cholesterol | 131 (L) | 140 - 200 mg/dL | [facility] | | | | | | [facility] | | | | | | MEDICAL | | | | | | CENTER - | | | | | | LABORATORY | | + + + + + + | HDL | 45 | 29 - 89 mg/dL | [facility] | | | | | | [facility] | | | | | | MEDICAL | | | | | | CENTER - | | | | | | LABORATORY | | + + + + + + | LDL, | 69 | <130 mg/dL | [facility] | | | Calculated | | | [facility] | | | | | | MEDICAL | | | | | | CENTER - | | | | | | LABORATORY | | + + + + + + | Chol/HDL | 2.9Comment: | | [facility] | | | Ratio | | | [facility] | | | | | | MEDICAL | | | | ------- RISK CATEGORY: | | CENTER - | | | | CHOL/HDL * T.CHOL * LDL | | LABORATORY | | | | CHOL * HDL CHOL | | | | | | | | | | | | RATIO DESIRABLE: (M) | | | | | | 4.0-6.7 <200 | | | | | | <130 >50 | | | | | | (F) | | | | | | 3.7-4.2 BORDERLINE:(M) | | | | | | 6.7-7.4 200-240 | | | | | | 130-160 <45 | | | | | | (F) | | | | | | 4.2-5.5 HIGH RISK: (M) | | | | | | >7.4 >240 | | | | | | >160 <35 | | | | | | (F) | | | | | | >5.5 | | | | | | | | | | | | | | | | | | --------- | | | | + + + + + + + + | Specimen | + + | | + + + + + + + | Performing | Address | City/State/Zipcode | Phone Number | | Organization | | | | + + + + + | [facility] | [address] | [place], [place] | [phone] | | [facility] | | [address] | | | - LABORATORY | | | | + + + + + | [facility] | [address] | [place], [place] | | | [facility] | | [address] [place] [address] | | | - LABORATORY | | | | + + + + + Valproic Acid Level (01/27/2011 1:04 PM PDT) + +--------+ + + + | Component | Value | Ref Range | Performed | Pathologist | | | | | At | Signature | + +--------+ + + + | VALPROIC | 22 (L) | 50 - 100 ug/mL | [facility] | | | ACID TOTAL | | | [facility] | | | | | | MEDICAL | | | | | | CENTER - | | | | | | LABORATORY | | + +--------+ + + + + + | Specimen | + + | | + + + + + + + | Performing | Address | City/State/Zipcode | Phone Number | | Organization | | | | + + + + + | [facility] | [address] | [place] | [phone] | | [facility] | | [address] | | | - LABORATORY | | | | + + + + + | [facility] | [address] | [place], [place] | | | [facility] | | [address] | | | - LABORATORY | | | | + + + + + CBC no Differential (01/27/2011 1:04 PM PDT) + +-------+ + + + | Component | Value | Ref Range | Performed | Pathologist | | | | | At | Signature | + +-------+ + + + | WBC | 6.5 | 4.0 - 11.0 K/uL | [facility] | | | | | | [facility] | | | | | | MEDICAL | | | | | | CENTER - | | | | | | LABORATORY | | + +-------+ + + + | RBC | 4.66 | 3.70 - 5.20 | [facility] | | | | | M/uL | [facility] | | | | | | MEDICAL | | | | | | CENTER - | | | | | | LABORATORY | | + +-------+ + + + | Hemoglobin | 15.3 | 11.5 - 16.0 | [facility] | | | | | gm/dL | [facility] | | | | | | MEDICAL | | | | | | CENTER - | | | | | | LABORATORY | | + +-------+ + + + | Hematocrit | 44.9 | 34.0 - 47.0 % | [facility] | | | | | | [facility] | | | | | | MEDICAL | | | | | | CENTER - | | | | | | LABORATORY | | + +-------+ + + + | MCV | 96.5 | 83.0 - 101.0 fL | [facility] | | | | | | [facility] | | | | | | MEDICAL | | | | | | CENTER - | | | | | | LABORATORY | | + +-------+ + + + | MCH | 32.8 | 28.0 - 35.0 pg | [facility] | | | | | | [facility] | | | | | | MEDICAL | | | | | | CENTER - | | | | | | LABORATORY | | + +-------+ + + + | MCHC | 34.0 | 32.0 - 36.0 | [facility] | | | | | g/dL | [facility] | | | | | | MEDICAL | | | | | | CENTER - | | | | | | LABORATORY | | + +-------+ + + + | RDW-CV | 13.1 | <15.0 % | [facility] | | | | | | [facility] | | | | | | MEDICAL | | | | | | CENTER - | | | | | | LABORATORY | | + +-------+ + + + | Platelet | 165 | 140 - 440 K/uL | [facility] [...] + | [facility] | [address] | [place], [place] | [phone] | | [facility] | | [address] | | | - LABORATORY | | | | + + + + + | [facility] | [address] | [place], [place] | | | [facility] | | [address] [place] [address] | | | - LABORATORY | | | | + + + + + documented in this encounter Visit Diagnoses Not on filedocumented in this encounter"
--- OUTSIDE RECORDS SUMMARY | ~2020-03-13 | XMS | Encounter Summary ---
Demographics + + + | Address | [address] | | | [place] [address] | + + + | Home Phone | | + + + | Preferred Language | Unknown | + + + | Marital Status | | + + + | Restorationism Affiliation | Unknown | + + + | Race | Unknown | + + + | Ethnic Group | Unknown | + + + Author + + + | Author | [facility] | | | and [place] | + + + | Organization | [facility] | | | [...] Team Providers + +------+ + | Care Vacuum Drier Tender Name | Role | Phone | + +------+ + | Burton Masters MD | PCP | | + +------+ + Encounter Details +--------+ + + + + | Date | Type | Department | Care Team | Description | +--------+ + + + + | 12/13/ | Abstract | [facility] | Burton Masters, | | | 2017 | | MEDICINE VENDOR | [address] | | | | | [address] | [place] | | | | | [place] | [address] | | | | | [address] | | | | | | [phone] | | | +--------+ + + + [...] | | | | Visit | | [address] | | | | | | [place] | | | | | | [address] | | | | | | | | +--------+ + + + + | 03/18/ | Office | Physical Medicine | Jovana Dawson | | | 2019 | Visit | and Rehabilitation | MELANY Man [address] | | | | | [address] | | | | [address] [place] | | | | | | [address] | | | | | | | | +--------+ + + + + | 04/01/ | Appointment | Oncology | Deny Mcmanus, | | | 2019 | | | [address] | | | | | | [place], | | | | | | [place] [address] | | | | | | [phone] | | | | | | | | +--------+ + + + + | 04/08/ | Procedure | Physical Medicine | Leonard De Leon | | | 2019 | visit | and Rehabilitation | MD Audelia [address] | | | | | | [place] | | | | | | [address] | | | | | | | | +--------+ + + + + | 04/30/ | Office | Cardiology | Shad Saavedra, | | | 2019 | Visit | | [address] | | | | | | [place] | | | | | | [place] [address] | | | | | | [phone] | | | | | | | | +--------+ + + + + documented as of this encounter Procedures + +--------+ + + + | Procedure Name | Priori | Date/Time | Associated Diagnosis | Comments | | | ty | | | | + +--------+ + + + | EXTERNAL LAB: PAP | Routin | 03/18/2016 | | Results for this | | SMEAR | e | | | procedure are in the | | | | | | results section. | + +--------+ + + + documented in this encounter Results External Lab: PAP Smear (03/18/2016) + + + + + + | Component | Value | Ref Range | Performed | Pathologist | | | | | At | Signature | + + + + + + | Pap Smear, | No evidence of | | | | | External | intraepithelial lesion | | | | | | or malignancy | | | | + + + + + + documented in this encounter Visit Diagnoses Not on filedocumented in this encounter"
--- OUTSIDE RECORDS SUMMARY | ~2020-03-13 | XMS | Encounter Summary ---
Demographics + + + | Address | [address] | | | [place] [address] | + + + | Home Phone | | + + + | Preferred Language | Unknown | + + + | Marital Status | Single | + + + | Anabaptist Affiliation | NON | + + + [...] Team Providers + +------+ + | Care Procurement Specialist Name | Role | Phone | + +------+ + | Burton Masters MD | PCP | | + +------+ + Reason for Visit + + + | Reason | Comments | + + + | CML - Chronic | | | myeloid leukemia | | + + + | Follow-up visit | | + + + Intake Referral (Routine) +--------+---------+ + + + + | Status | Reason | Specialty | Diagnoses / | Referred By | Referred To | | | | | Procedures | Contact | Contact | +--------+---------+ + + + + | Closed | Other | Medical | Diagnoses | Sonam, | Oscar | | | | Oncology / | CML | Burton Rizzo, | MD Jalen | | | | Hematology | (chronic | MD [address] | | | | Malignancy | myelocytic | [address] | [address] | | | | | leukemia) | [place], | [place] | | | | | (HCC) | [place] [address] | [address] | | | | | Procedures | Phone: | Phone: | | | | | [place] | [phone] | [phone] | | | | | PATIENT | Fax: | Fax: | | | | | [place] | [phone] | [phone] | | | | | EST PATIENT | | | | | | | LEVEL V | | | +--------+---------+ + + + + Encounter Details +--------+---------+ + + + | Date | Type | Department | Care Team | Description | +--------+---------+ + + + | 06/10/ | Office | [facility] | Jalen Moore, | CML (chronic myeloid | | 2019 | Visit | Clinics at S | MD [address] | leukemia) (HCC) | | | | [facility] | [place], [place] | (Primary Dx) | | | | for Health and | [address] | | | | | Healing [address] | [phone] | | | | | [place], [place] | | | | | | [address] | | | | | | [phone] | | | +--------+---------+ + + + [...] documented as of this encounter Progress Notes Jalen Moore MD - 06/10/2019 1:00 PM PDTFormatting of this note might be different f rom the original. Medical Oncology Clinic Primary Care Provider: Burton Masters MD Referring Provider: Burton Masters MD [address] [place] [address] Subject: Ms. Webb is a 34-year-old female with recently diagnosed CML in December year. The patient is currently on second line therapy with imatinib dosed at 400 mg per d ay. Interval History: The patient is primarily followed by Dr. Deny Mcmanus in [facility]. The patient due to side effects was switched from dasatinib to imatinib. She to lerates the imatinib much better. She does, interestingly, have vomiting every day, but seems anticipatory as she has it before she takes her medication, and then once she takes the imatinib has no further nausea. We discussed possibly taking it twice daily, but she di d not feel like this was bothering her enough to make a switch. She occasionally has loose stools and takes Imodium. No skin rash. No muscle cramps. Energy level is good. No fever , infections or antibiotics. No transfusions. No new medications. No shortness of breath, cough or chest pain. Her most recent PCR checked at the end of May per patient report was 0.05%. Impression: CML, in chronic phase. The patient has had a very rapid decline in her PCR, a chieving a major molecular response within 5 months of diagnosis, which is excellent. We di d not have access to the outside PCR, so an additional PCR was drawn today. We discussed th at once the patient has confirmed MMR, which might be the current state, the patient could c ontinue imatinib at full dose, with the goal of achieving a complete molecular response and consideration of a treatment-free remission after a minimum of 2 years of undetectable PCR v ersus some dose reduction to mitigate her side effects. The patient at least currently feel s that her current side effect profile is manageable and much improved from previously. She is not interested in taking twice daily dosing or even considering in the future decreasing her dose, as she would rather get to undetectable if possible and then stop the medication and be monitored. Given that the patient is doing much better from a side effect standpoint and has had an excellent molecular response, the patient should have her primary followup [place] through Dr. Deny Mcmanus. We will give the patient an appointment in 1 year just to discuss the long-term goals of her care. Plan: 1. Continue imatinib 400 mg daily. 2. Follow up on PCR from today. 3. The patient is to follow up in 1 year or as needed. Dx January 2019 Problem List: Patient Active Problem List Diagnosis Chronic low back pain Depression Leukocytosis Alcohol use Tobacco abuse Chronic myeloid leukemia (CML), BCR/ABL-positive ([facility]) Nausea Previously Obtained Historical Data PMH: Past Medical History: Diagnosis Date Anxiety CML (chronic myelocytic leukemia) ([facility]) 01/04/2019 Degenerative joint disease of low back Depression Seizure ([facility]) hx 2 episodes both in 2018, associated with alcohol use SVT (supraventricular tachycardia) ([facility]) 02/2019 PSH: Past Surgical History Procedure Laterality Date x3: 2009, 2015, 2018 Left shoulder surgery arthroscopic FH: Family History Problem Relation Multiple Sclerosis Mother Depression Mother Coronary Artery Disease Mother Hypertension Father Glaucoma Father Hyperlipidemia Father Gout Father Family Status Relation Name Status Mo Alive, age 63y Fa Alive, age 64y Social: Social History Socioeconomic History Marital status: Single Spouse name: Not on file Number of children: Not on file Years of education: Not on file Highest education level: Not on file Occupational History Not on file Social Needs Financial resource strain: Not on file Food insecurity: Worry: Not on file Inability: Not on file Transportation needs: Medical: Not on file Non-medical: Not on file Tobacco Use Smoking status: Current Every Day Smoker Packs/day: 1.00 Years: 20.00 Pack years: 20.00 Smokeless tobacco: Former User Types: Chew Substance and Sexual Activity Alcohol use: No Comment: sober since 12/21/18 Drug use: Yes Comment: daily marijuana Sexual activity: Not on file Lifestyle Physical activity: Days per week: Not on file Minutes per session: Not on file Stress: Not on file Relationships Social connections: Talks on phone: Not on file Gets together: Not on file Attends protestant service: Not on file Active member of club or organization: Not on file Attends meetings of clubs or organizations: Not on file Relationship status: Not on file Other Topics Concern Not on file Social History Narrative - (Adrian Parkinson) -Has 5 of her own children (age range <1 to 12 as of 12/2018); 1 step daughter -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 See scanned written ROS form from jitendra nagy's visit. ROS form reviewed with patient. Meds: Current Outpatient Medications Medication Sig ALPRAZolam 0.5 mg oral tablet Take 0.5-1 mg by mouth three times daily as needed. buPROPion 100 mg oral tablet Take 200 mg by mouth two times daily. dasatinib 100 mg oral tablet Take 1 tablet by mouth once daily. Indications: Chronic Ph ase Garrard Chromosome Positive Chronic Myelocytic Leukemia diphenoxylate-atropine 2.5-0.025 mg oral tablet Take 2 tablets by mouth as needed. HYDROcodone-acetaminophen 5-325 mg oral tablet Take 1 tablet by mouth three times daily as needed. imatinib 400 mg oral tablet Take 1 tablet by mouth once daily. Indications: Chronic Pha se Garrard Chromosome Positive Chronic Myelocytic Leukemia lamoTRIgine 25 mg oral tablet Take 25 mg by mouth once daily. loperamide 2 mg oral capsule Take 2 mg by mouth as needed. nicotine 21 mg/24 hr transdermal patch 24 hour Apply 1 patch to skin once daily. (Patie nt not taking: Reported on 04/29/2019) nicotine polacrilex 4 mg buccal gum Chew 1 gum slowly by mouth as needed.Chew at least 9 pieces of gum daily to improve chances of quitting. (Patient not taking: Reported on 2018) ondansetron 8 mg oral tablet Take 1 tablet by mouth every twelve hours as needed. Indic ations: Prevent Nausea and Vomiting from Cancer Chemotherapy oxyCODONE (immediate release) 5 mg oral tablet Take 2 tablets by mouth every four hours as needed for moderate pain. (Patient not taking: Reported on 04/29/2019) prochlorperazine 10 mg oral tablet Take 10 mg by mouth once daily. ranitidine 150 mg oral tablet Take 1 tablet by mouth once daily. Indications: heartburn No current facility-administered medications for this visit. Vitals: There were no vitals taken for this visit. Pain Score: ECOG=0 General: Well developed, well nourished patient. Neuro: Alert and oriented x 3. Gait norm al. Gaze conjugate. HEENT: No scleral icterus. Neck: No thyroid masses or tenderness. LN: No cervical, supraclavicular, axillary or inguinal lymphdadenopathy. Chest: clear to auscul tation and percussion. Heart: No increased JVD. Normal S1, S2. No murmur, rub of gallop. Abdomen: Normal BS, non-tender. No hepatosplenomegaly. No abdominal masses. Extremities: No clubbing, cyanosis or edema. Skin: No rashes, petechiae, or purpura. Labs: Lab on 06/10/2019 Component Date Value WHITE CELL COUNT 06/10/2019 7.89 RED CELL COUNT 06/10/2019 4.06 HEMOGLOBIN 06/10/2019 14.0 HEMATOCRIT 06/10/2019 41.0 MCV 06/10/2019 101.0* MCHC 06/10/2019 34.1 RDW SD 06/10/2019 59.2* PLATELET COUNT 06/10/2019 113* MPV 06/10/2019 9.1* NRBC% 06/10/2019 0.0 NRBC# 06/10/2019 0.00 NEUTROPHIL % 06/10/2019 68.3 LYMPHOCYTE % 06/10/2019 22.4 MONOCYTE % 06/10/2019 7.0 EOS % 06/10/2019 1.6 BASO % 06/10/2019 0.4 IG% 06/10/2019 0.3 NEUTROPHIL # 06/10/2019 5.39 NEUTROPHIL # Prelim 06/10/2019 5.39 LYMPHOCYTE # 06/10/2019 1.77 MONOCYTE # 06/10/2019 0.55 EOS # 06/10/2019 0.13 BASO # 06/10/2019 0.03 IG# 06/10/2019 0.02 Office Visit on 04/29/2019 Component Date Value BCR-ABL (INTERNATIONAL S* 04/15/2019 0.1637 Lab on 04/29/2019 Component Date Value URIC ACID, PLASMA (LAB) 04/29/2019 4.6 SPECIMEN TYPE SUBMITTED 04/29/2019 Blood BCR-ABL (INTERNATIONAL S* 04/29/2019 0.43 GLUCOSE, PLASMA (LAB) 04/29/2019 94 BUN, PLASMA (LAB) 04/29/2019 11 CREATININE PLASMA (LAB) 04/29/2019 0.70 EGFR - GRENADIAN 04/29/2019 >60 EGFR NON -GRENADIAN 04/29/2019 >60 SODIUM, PLASMA (LAB) 04/29/2019 140 POTASSIUM, PLASMA (LAB) 04/29/2019 3.9 CHLORIDE, PLASMA (LAB) 04/29/2019 109* TOTAL CO2, PLASMA (LAB) 04/29/2019 22 CALCIUM, PLASMA (LAB) 04/29/2019 9.0 CALCIUM(ALB CORRECTED) 04/29/2019 9.4 BILIRUBIN TOTAL 04/29/2019 0.7 TOTAL PROTEIN, PLASMA (L* 04/29/2019 6.8 ALBUMIN, PLASMA (LAB) 04/29/2019 3.5 ALK PHOS 04/29/2019 82 AST(SGOT) 04/29/2019 20 ALT (SGPT) 04/29/2019 24 ANION GAP 04/29/2019 9 ANION GAP(ALB CORRECTED) 04/29/2019 10 POTASSIUM CMNT 04/29/2019 No Hemo BILI T CMNT 04/29/2019 No Hemo AST CMNT 04/29/2019 No Hemo WHITE CELL COUNT 04/29/2019 6.17 RED CELL COUNT 04/29/2019 4.59 HEMOGLOBIN 04/29/2019 15.0 HEMATOCRIT 04/29/2019 43.0 MCV 04/29/2019 93.7 MCHC 04/29/2019 34.9 RDW SD 04/29/2019 51.2* PLATELET COUNT 04/29/2019 177 MPV 04/29/2019 8.6* NRBC% 04/29/2019 0.0 NRBC# 04/29/2019 0.00 NEUTROPHIL % 04/29/2019 62.3 LYMPHOCYTE % 04/29/2019 28.7 MONOCYTE % 04/29/2019 7.1 EOS % 04/29/2019 1.3 BASO % 04/29/2019 0.3 IG% 04/29/2019 0.3 NEUTROPHIL # 04/29/2019 3.84 NEUTROPHIL # Prelim 04/29/2019 3.84 LYMPHOCYTE # 04/29/2019 1.77 MONOCYTE # 04/29/2019 0.44 EOS # 04/29/2019 0.08 BASO # 04/29/2019 0.02 IG# 04/29/2019 0.02 Admission on 01/02/2019, Discharged on 01/04/2019 No results displayed because visit has over 200 results. Imaging: Ct Abdomen And Pelvis W Iv Contrast Result Date: 01/03/2019 EXAM: CT of the abdomen and pelvis WITH intravenous contrast. HISTORY: Admitted with new d iagnosis of leukemia. Now with nausea and vomiting COMPARISON: None available. TECHNIQUE: CT of the abdomen and pelvis with non-ionic iodinated intravenous contrast. Coronal and sag ittal reformats were generated and reviewed. FINDINGS: LOWER THORAX: Unremarkable. LIVER: Liver is borderline enlarged. No focal concerning lesions. BILIARY: Unremarkable. PANCREAS: Unremarkable. SPLEEN: Spleen is enlarged, measuring up to 18 cm in AP dimension and 16 cm i n craniocaudal dimension. No focal lesions. ADRENALS: Unremarkable. KIDNEYS/URETERS: Unremar kable. PELVIC ORGANS/BLADDER: Normal physiologic appearance of the pelvic visceral structure s. GI TRACT: No evidence of bowel obstruction. Appendix is normal in caliber. Moderate stoo l burden in the colon. PERITONEUM: No free air or fluid. LYMPH NODES: No lymphadenopathy. V ESSELS: Unremarkable. BONES AND SOFT TISSUES: Degenerative disc disease at L5-S1. No suspic ious osseous lesions. IMPRESSION: Splenomegaly and borderline hepatomegaly, consistent wit h reported underlying hematologic malignancy. No acute abnormality in the abdomen or pelvis . I have personally reviewed the images and, if necessary, edited the report. I agree with the report as now presented. Final signature: Moises Baumann MD 01/03/2019 3:35 PM Prel iminary: Nico Waite MD 01/03/2019 3:28 PM Dictation initiated: Nico Waite MD 2:47 PM No results found for: CTCHEST The patient received education about their disease--including education on management and f /u of their disease. I discussed the results of the toxicity and efficacy lab monitoring test results with the p atient. ' documented in this encounter Plan of Treatment +--------+---------+ + + + | Date | Type | Specialty | Care Team | Description | +--------+---------+ + + + | 06/15/ | Lab | Phlebotomy | | | | 2020 | | | | | +--------+---------+ + + + | 06/15/ | Office | Hematology | Jalen Moore, | | | 2019 | Visit | Malignancy | MD [address] | | | | | | [place], [place] | | | | | | [address] | | | | | | [phone] | | | | | | | | +--------+---------+ + + + documented as of this encounter Procedures + +--------+ + + + | Procedure Name | Priori | Date/Time | Associated Diagnosis | Comments | | | ty | | | | + +--------+ + + + | ONCOLOGY PATHWAYS | Routin | 06/28/2019 | | Results for this | | TREATMENT DECISION | e | | | procedure are in the | | | | | | results section. | + +--------+ + + + | BCR - ABL RNA QUANT, | Routin | 05/29/2019 | | Results for this | | BLOOD | e | | | procedure are in the | | | | | | results section. | + +--------+ + + + documented in this encounter Results ONCOLOGY PATHWAYS TREATMENT DECISION (06/28/2019) + + + + + + | Component | Value | Ref Range | Performed | Pathologist | | | | | At | Signature | + + + + + + | ONCOLOGY | START OFF PATHWAY | | VIA | | | PATHWAYS | REGIMEN - CML - Off | | ONCOLOGY | | | TREATMENT | Pathway: Imatinib 400 mg | | PATHWAYS | | | PLAN | PO daily D1-28 q28 Days | | | | | REGIMEN | | | | | + + + + + + | ONCOLOGY | START OFF PATHWAY | | VIA | | | PATHWAYS | REGIMEN - CML Off | | ONCOLOGY | | | TREATMENT | Pathway: Imatinib 400 mg | | PATHWAYS | | | DECISION | PO daily D1-28 q28 Days | | | | | DETAILS | [id number]:Imatinib 400 | | | | | | mg PO daily D1-28 q28 | | | | | | Days: A cycle is every | | | | | | 28 days: Imatinib | | | | | | (Gleevec(R)) 400 mg flat | | | | | | dose orally once daily | | | | | | on days 1 through 28 | | | | | | Always confirm | | | | | | dose/schedule in your | | | | | | pharmacy ordering | | | | | | system Patient | | | | | | Characteristics:BCR-ABL | | | | | | Positive, Chronic Phase, | | | | | | Second Line, [id number] | | | | | | Mutations or Other | | | | | | Cytogenetic | | | | | | AbnormalityBCR-ABL | | | | | | Status: PositiveLine of | | | | | | therapy: Second | | | | | | [id number] Mutation | | | | | | Status: NegativeIntent | | | | | | of Therapy:Non-Curative | | | | | | / Palliative Intent, | | | | | | Discussed with Patient | | | | + + + + + + | ONCOLOGY | [id number] | | VIA | | | PATHWAYS | | | ONCOLOGY | | | TREATMENT | | | PATHWAYS | | | DECISION | | | | | + + + + + + + + | Specimen | + + | | + + + +---------+ + + | Performing | Address | City/State/Zipcode | Phone Number | | Organization | | | | + +---------+ + + | [facility] | | | | | [facility] | | | | + +---------+ + + BCR - ABL RNA QUANT, BLOOD (05/29/2019) + + + + + + | Component | Value | Ref Range | Performed | Pathologist | | | | | At | Signature | + + + + + + | BCR-ABL | 0.05Comment: Reported by | | NON [facility] | | | (INTERNATIO | patient | | LAB | | | NAL SCALE) | | | | | + + + + + + + + | Specimen | + + | Blood - Blood | | (substance) | + + + +---------+ + + | Performing | Address | City/State/Zipcode | Phone Number | | Organization | | | | + +---------+ + + | NON [facility] | | | | + +---------+ + + documented in this encounter Visit Diagnoses + + | Diagnosis | + + | CML (chronic myeloid leukemia) (HCC) - Primary Chronic myeloid leukemia, without | | mention of having achieved remission | + + documented in this encounter"
--- OUTSIDE RECORDS SUMMARY | ~2020-03-13 | XMS | Encounter Summary ---
Demographics + + + | Address | [address] | | | [place] [address] | + + + | Home Phone | | + + + | Preferred Language | Unknown | + + + | Marital Status | | + + + | Baptism Affiliation | Unknown | + + + [...] Team Providers + +------+ + | Care Suction Drum Drier Operator Name | Role | Phone | + +------+ + | Burton Masters MD | PCP | | + +------+ + Reason for Visit + + + | Reason | Comments | + + + | Non-stress Test | | + + + Encounter Details +--------+ + + + + | Date | Type | Department | Care Team | Description | +--------+ + + + + | 03/06/ | Hospital | [facility] | Dorota Beal | | | 2018 | Encounter | MED CTR LABOR AND | [place], DO [address] | | | | [address] | | | | | [place], | [place] [address] | | | | | [place] [address] | [phone] | | | | | [phone] | | | +--------+ + + + [...] + + | Pulse | 95 | 01/09/2018 11:00 AM | | | | | PST | | + + + + + | Temperature | 36.7 C (98.1 F) | 01/09/2018 10:45 AM | | | | | PST | | + + + + + | Respiratory Rate | 20 | 01/09/2018 10:45 AM | | | | | PST | | + + + + + | Oxygen Saturation | 98% | 01/09/2018 11:00 AM | | | | | PST [...] Discharge Instructions Instructions Latia Sampson RN - 01/09/2018Discharge Education for the Undelivered Patie nt You [...] [address] | | | | | | [address] | | | | | | [address] [place] | | | | | | [id number] | | | | | | | | +--------+ + + + + | 04/01/ | Appointment | Oncology | Deny Mcmanus, | | | 2019 | | | [address] | | | | | | [place], | | | | | | [place] [address] | | | | | | [phone] | | | | | | | | +--------+ + + + + | 04/08/ | Procedure | Physical Medicine | Leonard De Leon | | | 2019 | visit | and Rehabilitation | TMD [address] | | | | | | [place] | | | | | | [address] | | | | | | | | +--------+ + + + + | 04/30/ | Office | Cardiology | Shad Saavedra, | | | 2019 | Visit | | [address] | | | | | | [place], | | | | | | [place] [address] | | | | | | [phone] | | | | | | | | +--------+ + + + + documented as of this encounter Visit Diagnoses Not on filedocumented in this encounter Administered Medications + +--------+ +-------+------+ + | Medication Order | MAR | Action | Dose | Rate | Site | | | Action | Date | | | | + +--------+ +-------+------+ + | betamethasone (CELESTONE | Given | 01/10/20 | 12 mg | | Glut-Lef | | SOLUSPAN) injection 12 mg 12 mg, | | 18 11:10 | | | t | | Intramuscular, EVERY 24 HOURS | | AM PST | | | | | INTERVAL, First dose on Mon | | | | | | | 01/09/18 at 1115, For 2 doses, | | | | | | | Shake well. Not for IV use., | | | | | | + +--------+ +-------+------+ + +---+---+ | | | +---+---+ documented in this encounter"
--- OUTSIDE RECORDS SUMMARY | ~2020-03-13 | XMS | Encounter Summary ---
Demographics + + + | Address | [address] | | | [place] [address] | + + + | Home Phone | | + + + | Preferred Language | Unknown | + + + | Marital Status | Single | + + + | Pentecostalism Affiliation | NON | + + + | Race | White | + + + | Ethnic Group | Not or | + + + Author + + + | Author | [facility] | + + + | Organization | [facility] | + + + | Address [...] Team Providers + +------+ + | Care Turbine Blade Assembler Name | Role | Phone | + +------+ + | Burton Masters MD | PCP | | + +------+ + Encounter Details +--------+ + + + + | Date | Type | Department | Care Team | Description | +--------+ + + + + | 01/03/ | Procedure | Diagnostic Imaging | | | | 2018 | Pass | Services at [facility] | | | | | | [address] | | | | | | [address] [place] | | | | | | [facility] Floor | | | | | | [place], [place] | | | | | | [address] | | | | | | [phone] | | | +--------+ + + + [...] [address] | | | | | | [place], [place] | | | | | | [address] | | | | | | [phone] | | | | | | | | +--------+---------+ + + + documented as of this encounter Visit Diagnoses Not on filedocumented in this encounter"
--- OUTSIDE RECORDS SUMMARY | ~2020-03-13 | XMS | Encounter Summary ---
Demographics + + + | Address | [address] | | | [place] [address] | + + + | Home Phone | | + + + | Preferred Language | Unknown | + + + | Marital Status | Single | + + + | Mormonism Affiliation | NON | + + + | Race | White | + + + | Ethnic Group | Not or | + + + Author + + + | Organization | Unknown | + + + | Address | [...] Team Providers + +------+ + | Care Welfare Aide Name | Role | Phone | + +------+ + | Burton Masters MD | PCP | | + +------+ + Encounter Details +--------+--------+ + + + | Date | Type | Department | Care Team | Description | +--------+--------+ + + + | 06/10/ | Travel | | | | | 2019 | | | | | +--------+--------+ + + + Social History + +-------+ [...] [address] | | | | | | [place] | | | | | | [address] | | | | | | [phone] | | | | | | | | +--------+---------+ + + + documented as of this encounter Visit Diagnoses Not on filedocumented in this encounter"
--- OUTSIDE RECORDS SUMMARY | ~2020-03-13 | XMS | Encounter Summary ---
Demographics + + + | Address | [address] | | | [place] [address] | + + + | Home Phone | | + + + | Preferred Language | Unknown | + + + | Marital Status | Single | + + + | Taoist Affiliation | NON | + + + | Race | White | + + + | Ethnic Group | Not or | + + + Author + + + | Author | [facility] | + + + | Organization | [facility] | + + + | Address [...] Team Providers + +------+ + | Care Chicle Grinder Feeder Name | Role | Phone | + +------+ + | Burton Masters MD | PCP | | + +------+ + Encounter Details +--------+ + + + + | Date | Type | Department | Care Team | Description | +--------+ + + + + | 01/07/ | Pharmacy | [facility] | | | | 2019 | Visit | [address] | | | [address] | [address] | | | | | | [place] [address] | | | | | | [phone] | | | +--------+ + + + [...] [address] | | | | | | [place], [place] | | | | | | [address] | | | | | | [phone] | | | | | | | | +--------+---------+ + + + documented as of this encounter Visit Diagnoses Not on filedocumented in this encounter"
--- OUTSIDE RECORDS SUMMARY | ~2020-03-13 | XMS | Encounter Summary ---
Demographics + + + | Address | [address] [facility] | | | [place] [address] | + + + | Home Phone [...] Team Providers + +------+ + | Care Park Guide Name | Role | Phone | + [...] Description | +--------+--------+ + + + | 04/14/ | Refill | [facility] | Burton Masters, | Medication Refill | | 2017 | | [facility] | [address] | | | | | [address] | [place] | | | | | [place] | [address] | | | | | [address] | | | | | | [phone] | | | +--------+--------+ + + + [...] [place] | | | | | | [address] | | | | | | | | +--------+ + + + + | 03/18/ | Office | Physical Medicine | Jovana Dawson | | | 2019 | Visit | and Rehabilitation | MELANY Man [address] | | | | | | [place] | | | | | | [address] [place] | | | | | | [address] | | | | | | | | +--------+ + + + + | 04/01/ | Appointment | Oncology | Deny Mcmanus, | | 2019 | | | MD Alan CRUZ | | | | | | [place] | | | | | | [place] [address] | | | | | | [phone] | | | | | | | | +--------+ + + + + | 04/08/ | Procedure | Physical Medicine | Leonard De Leon | | 2019 | visit | and Rehabilitation | T, MD Kiki CRUZ | | | | | | [place] | | | | | | [id number] | | | | | | | | +--------+ + + + + | 04/30/ | Office | Cardiology | Shad Saavedra, | | | 2019 | Visit | | MD Alan Cruz | | | | | | [facility] [place], | | | | | | [place] [address] | | | | | | [phone] | | | | | | | | +--------+ + + + + documented as of this encounter Visit Diagnoses Not on filedocumented in this encounter"
--- OUTSIDE RECORDS SUMMARY | ~2020-03-13 | XMS | Clinical Summary ---
Demographics + + + | Address | [address] [facility] | | | [place] [address] | + + + | Home Phone [...] | + + +---------+ + | Trisha Lenz | ECON | Unknown | | + + +---------+ + Care Team Providers + +------+ + | Care Hearing Aid Fitter Name | Role | Phone | + +------+ + | Burton Masters MD | PCP | | + +------+ + Allergies + + + + + + | Active Allergy | Reactions | Severity | Noted | Comments | | | | | Date | | + + + + + + | Adhesive & Tape | Rash | High | 01/12/20 | | | | | | 19 | | + + + + + + Medications + + + +---------+------+------+-------+ | Medication | Sig | Dispensed | Refills | Star | End | Statu | | | | | | t | Date | s | | | | | | Date | | | + + + +---------+------+------+-------+ | loperamide | 2 tablets by mouth | 50 | 1 | 06/1 | | Activ | | (IMODIUM A-D) 2 MG | followed by 1 tablet | tablet | | 8/20 | | e | | tablet | by mouth after each | | | 19 | | | | | loose stool; Max 16 | | | | | | | | mg/day | | | | | | + + + +---------+------+------+-------+ | imatinib (GLEEVEC) | Take 400 mg by mouth | | 0 | 06/2 | | Activ | | 400 mg tablet | Daily. | | | 4/20 | | e | | | | | | 19 | | | + + + +---------+------+------+-------+ | | Take 2 tablets for | 50 | 1 | 10/0 | | Activ | | diphenoxylate-atropi | diarrhea, then one | tablet | | 1/20 | | e | | ne (LOMOTIL) | tablet every 2 hours | | | 19 | | | | 2.5-0.025 mg per | as needed. | | | | | | | tabletIndications: | | | | | | | | Chronic myeloid | | | | | | | | leukemia (HCC) | | | | | | | + + + +---------+------+------+-------+ | buPROPion | Take 1 tablet by | 90 | 1 | 11/0 | | Activ | | (WELLBUTRIN) 100 mg | mouth 2 times daily. | tablet | | 1/20 | | e | | tablet | | | | 19 | | | + + + +---------+------+------+-------+ | cloNIDine | take 1 tablet by | 60 | 2 | 02/1 | | Activ | | (CATAPRES) 0.1 mg | mouth every 6 hours | tablet | | 2/20 | | e | | tablet | if needed | | | 20 | | | + + + +---------+------+------+-------+ | lamoTRIgine | Take 1 tablet by | 90 | 1 | 02/2 | | Activ | | (LAMICTAL) 25 mg | mouth Daily. | tablet | | 4/20 | | e | | tablet | | | | 20 | | | + + + +---------+------+------+-------+ | nortriptyline | Take 1 capsule by | 90 | 0 | 02/2 | | Activ | | (PAMELOR) 50 MG | mouth nightly. | capsule | | 8/20 | | e | | capsule | | | | 20 | | | + + + +---------+------+------+-------+ | hydrOXYzine | take 1 to 2 tablet | 60 | 2 | 03/2 | | Activ | | hydrochloride | by mouth every 6 | tablet | | 0/20 | | e | | (ATARAX) 25 mg | hours | | | 20 | | | | tablet | | | | | | | + + + +---------+------+------+-------+ | ondansetron | take 1 tablet by | 90 | 2 | 04/1 | | Activ | | (ZOFRAN) 8 MG tablet | mouth every 8 hours | tablet | | 7/20 | | e | | | if needed for nausea | | | 20 | | | + + + +---------+------+------+-------+ | prochlorperazine | take 1 tablet by | 180 | 0 | 05/0 | | Activ | | 10 mg tablet | mouth every 8 hours | tablet | | 1/20 | | e | | | if needed | | | 20 | | | + + + +---------+------+------+-------+ | oxyCODONE | Take 1.5-3 tablets | 90 | 0 | 05/0 | | Activ | | (ROXICODONE) 5 mg | by mouth every 8 | tablet | | 1/20 | | e | | tablet | hours as needed. | | | 20 | | | + + + +---------+------+------+-------+ | prochlorperazine | Take 1 tablet by | 90 | 2 | 05/0 | | Activ | | 10 mg tablet | mouth every 8 hours | tablet | | 1/20 | | e | | | as needed. | | | 20 | | | + + + +---------+------+------+-------+ | ondansetron | Take 1 tablet by | 90 | 2 | 11/0 | 04/1 | Disco | | (ZOFRAN) 8 MG tablet | mouth every 8 hours | tablet | | 1/20 | 6/20 | ntinu | | | as needed for | | | 19 | 20 | ed | | | Nausea. | | | | | | + + + +---------+------+------+-------+ | prochlorperazine | Take 1 tablet by | 90 | 2 | 11/0 | 05/0 | Disco | | 10 mg tablet | mouth every 8 hours | tablet | | 1/20 | 1/20 | ntinu | | | as needed. | | | 19 | 20 | ed | + + + +---------+------+------+-------+ | oxyCODONE | Take 1.5-3 tablets | 90 | 0 | 04/0 | 04/1 | Disco | | (ROXICODONE) 5 mg | by mouth every 8 | tablet | | 1/20 | 6/20 | ntinu | | tablet | hours as needed. | | | 20 | 20 | ed | | | | | | | | (Reor | | | | | | | | rosangela) | + + + +---------+------+------+-------+ | oxyCODONE | Take 1.5-3 tablets | 90 | 0 | 04/1 | 04/2 | Disco | | (ROXICODONE) 5 mg | by mouth every 8 | tablet | | 6/20 | 9/20 | ntinu | | tablet | hours as needed. | | | 20 | 20 | ed | | | | | | | | (Reor | | | | | | | | rosangela) | + + + +---------+------+------+-------+ | oxyCODONE | Take 1.5-3 tablets | 12 | 0 | 04/2 | 04/2 | Disco | | (ROXICODONE) 5 mg | by mouth every 8 | tablet | | 9/20 | 9/20 | ntinu | | tablet | hours as needed. | | | 20 | 20 | ed | | | | | | | | (Reor | | | | | | | | rosangela) | + + + +---------+------+------+-------+ Active Problems + + + | Problem | Noted Date | + + + | Peroneal nerve palsy, right | 01/29/2020 | + + + | Recovering alcoholic in remission | 11/04/2019 | + + + | Orthostatic hypotension | 09/30/2019 | + + + + + | Overview: She has significant orthostatic hypotension, with | | recurrent orthostatic lightheadedness and even syncope and | | presyncope. Symptoms have worsened since starting clonidine 1 | | month ago. She was in rehab program for alcoholism and has been | | treated with clonidine for PTSD. Has been taking 0.1 mg 3 times | | per day. She drinks 80 ounces of water per day and avoids | | caffeinated products and alcohol. Does not salt her | | food.Recommendations: Increase the fluid and salt intake. Start | | with salt tablets 1000 mg 2-3 times per day , and increase the | | fluids to at least 96 and preferably 128 ounces per day. Change | | clonidine to 0.1 mg nightly and try weaning off of that after 1 | | week. (Only take it as needed) for anxiety. | + + +---------+ + | Anxiety | 09/30/2019 | +---------+ + + + | Overview: She has significant anxiety. I've strongly | | encouraged her to get back into a regular relaxation program. | | Get the calm maggie on her cell phone. | + + + + + | SVT (supraventricular tachycardia) | 07/01/2019 | + + + + + | Overview: She has had recurrent tachycardias with heart rates | | up to 227 bpm, for the past 7 years. The usual duration is just | | a few minutes. Recently enthesis March 05, 2019) she had a | | rapid heart rate of 227 bpm associated with significant | | discomfort in she was treated in the emergency room with | | intravenous diltiazem. Sinus rhythm was converted within 2 hours | | and adenosine x2 apparently did not help. The LV systolic | | function was normal by echo. A beta-anjelica made her feel poorly | | with side effects, and digoxin also was not well-tolerated. 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 | + + + + + | Labile mood | 03/08/2019 | + + + | Chronic myeloid leukemia (CML), BCR/ABL-positive | 01/10/2019 | + + + + + | Overview: CML was diagnosed in December 2017 and has been | | treated with chemotherapy(Imatinib). BCR/ABL positive CML. | + + + + + | Nausea | 01/03/2019 | + + + | Tobacco abuse | 01/02/2019 | + + + + + | Overview: She still smokes 1/2 to 1 pack of cigarettes per | | day. I strongly encouraged her to stop smoking. | + + + + + | Depression | 05/16/2018 | + + + | Lumbar spondylosis | 03/07/2017 | + + + | Major depressive disorder, recurrent episode | 04/30/2013 | + + + + + | Overview: Overview: | | stable on Depakote and Wellbutrin. | | | | Dx name changed by system update 07/28/2017 | | | | Overview: | | stable on Depakote and Wellbutrin. | | | | Dx name changed by system update 07/28/2017 | + + Resolved Problems + + + + | Problem | Noted | Resolved | | | Date | Date | + + + + | Alcohol use | 01/02/20 | | | | 19 | 9 | + + + + + + | Overview: Went into alcohol detox center recently, and has | | not had any alcohol since August 28, 2019. | + + + + + + | Lumbar radiculopathy - left lower extremity | 04/16/20 | | | | 15 | 9 | + + + + | DDD (degenerative disc disease), lumbar | 04/16/20 | | | | 15 | 9 | + + + + | Chronic low back pain | 04/16/20 | | | | 15 | 9 | + + + + Encounters +--------+ + + + + | Date | Type | Specialty | Care Team | Description | +--------+ + + + + | 03/04/ | Refill | Family Medicine | Burton Masters, | Medication Refill | | 2019 | | | MD | | +--------+ + + + + | 03/03/ | Refill | Family Medicine | Burton Masters, | Medication Refill | | 2020 | | | MD | | +--------+ + + + + | 02/19/ | Refill | Family Medicine | Burton Masters, | Medication Refill | | 2020 | | | MD | | +--------+ + + + + | 02/18/ | Refill | Family Medicine | Burton Masters, | Medication Refill | | 2019 | | | MD | | +--------+ + + + + | 02/04/ | Refill | Family Medicine | Burton Masters, | Medication Refill | | 2019 | | | MD | | +--------+ + + + + | 02/03/ | Refill | Family Medicine | Burton Masters, | Medication Refill | | 2020 | | | MD | | +--------+ + + + + | 02/02/ | Telephone | Family Medicine | Burton Masters, | Referral (Follow up) | | 2019 | | | MD | ([facility] | | | | | | REQUEST/DOS | | | | | | 04/30/20) | +--------+ + + + + | 01/30/ | Telephone | Family Medicine | Burton Masters, | Appointment Question | 2019 | | | MD | | +--------+ + + + + | 01/27/ | Office | Family Medicine | Burton Masters, | Chronic bilateral | | 2019 | Visit | | MD | low back pain | | | | | | without sciatica | | | | | | (Primary Dx); Sleep | | | | | | problem caused by | | | | | | drug (HCC); Right | | | | | | foot drop; Peroneal | | | | | | nerve palsy, right | +--------+ + + + + | 01/26/ | Telephone | Family Medicine | Burton Masters, | Ankle Injury | 2019 | | | MD | | +--------+ + + + + | 01/21/ | Refill | Family Medicine | Burton Masters, | Medication Refill | | 2019 | | | MD | | +--------+ + + + + | 01/20/ | Refill | Family Medicine | Burton Masters, | Medication Refill | | 2019 | | | MD | | +--------+ + + + + | 01/13/ | Abstract | Family Medicine | Burton Masters, | | | 2019 | | | MD | | +--------+ + + + + | 01/09/ | Telephone | Family Medicine | Burton Masters, | Medication | | 2020 | | | MD | Management | +--------+ + + + + | 01/06/ | Telephone | Family Medicine | Burton Masters, | Referral (Follow up) | | 2019 | | | MD | | +--------+ + + + + | 01/05/ | Telephone | Family Medicine | Burton Masters, | Appointment | | 2019 | | | MD | | +--------+ + + + + | 01/03/ | Office | Family Medicine | Burton Masters, | Right foot drop | | 2019 | Visit | | MD | (Primary Dx); Back | | | | | | pain, unspecified | | | | | | back location, | | | | | | unspecified back | | | | | | pain laterality, | | | | | | unspecified | | | | | | chronicity | +--------+ + + + + | 01/02/ | Telephone | Family Medicine | Burton Masters, | ED Follow-up | | 2019 | | | MD | | +--------+ + + + + | 01/01/ | Emergency | Emergency Medicine | Ari Pelletier MD | Right foot drop | | 2019 | | | | (Primary Dx) | +--------+ + + + + | 01/01/ | Hospital | Oncology | Deny Mcmanus, | Chronic myeloid | | 2019 | Encounter | | MD | leukemia (HCC) | | | | | | (Primary Dx) | +--------+ + + + + | 12/30/ | Office | Family Medicine | Burton Masters, | Back pain, | | 2019 | Visit | | MD | unspecified back | | | | | | location, | | | | | | unspecified back | | | | | | pain laterality, | | | | | | unspecified | | | | | | chronicity (Primary | | | | | | Dx); Foot-drop, | | | | | | unspecified | | | | | | laterality | +--------+ + + + + | 12/26/ | Telephone | Oncology | Deny Mcmanus, | Lab Results | | 2019 | | | MD | | +--------+ + + + + | 12/25/ | Hospital | Oncology | Deny Mcmanus, | Chronic myeloid | | 2020 | Encounter | | MD | leukemia ([facility]); CML | | | | | | (chronic myelocytic | | | | | | leukemia) ([facility]); | | | | | | Dysuria; Chronic | | | | | | myeloid leukemia, | | | | | | BCR/ABL-positive, in | | | | | | remission ([facility]); | | | | | | Recovering alcoholic | | | | | | in remission ([facility]); | | | | | | SVT | | | | | | (supraventricular | | | | | | tachycardia) ([facility]); | | | | | | Tobacco abuse | +--------+ + + + + | 12/19/ | Refill | Family Medicine | Burton Masters, | Medication Refill | | 2019 | | | MD | | +--------+ + + + + | 12/19/ | Telephone | Family Medicine | Burton Masters, | Leg Problem | | 2019 | | | MD | (Weakness and | | | | | | tingling in right | | | | | | lower leg. ) | +--------+ + + + + | 12/16/ | Refill | Family Medicine | Burton Masters, | Medication Refill | 2019 | | | MD | | +--------+ + + + + from Last 3 Months Immunizations + + + + | Name | Administration Dates | Next Due | + + + + | DT (PED) | 06/13/1991, 01/05/1989, 1987, | | | | 1987, 1987 | | + + + + | HEP A, 2 DOSE | 12/19/2012, 11/19/2012 | | | (ADULT) | | | + + + + | HEP B, 3 DOSE | 11/19/2012 | | | (ADULT) | | | + + + + | HIB (PRP-T), 4 DOSE | 08/02/1990 | | | (PED) | | | + + + + | Hep B (PED/ADOL) 3 | 08/30/1996 | | | DOSE | | | + + + + | INFLUENZA PF | 08/16/2014 | | | QUAD(PED/ADOL/ADULT) | | | | ,PSKT or VIAL | | | + + + + | INFLUENZA PF | 12/19/2012, 10/22/2012 | | | TRIVALENT(PED/ADOL/A | | | | SHELDON KENNEDY | | | + + + + | INFLUENZA, | 08/20/2018 | | | UNSPECIFIED | | | | FORMULATION | | | + + + + | IPV, 4 DOSE | 06/13/1991, 01/05/1989, 1987, | | | (PED/ADULT) | 1987 | | + + + + | MMR, 2 DOSE | 01/17/2018 (), 03/27/1998, 04/21/1988 | | | (PED/ADULT) | | | + + + + | PNEUMOCOCCAL | 01/16/2019 | | | CONJUGATE 13-VALENT | | | | (PCV13) | | | + + + + | PNEUMOCOCCAL | 03/13/2019 | | | POLYSACCHARIDE | | | | 23-VALENT (PPSV23) | | | + + + + | PPD Test | 10/22/2012, 10/02/2012 | | + + + + | TDAP, (ADOL/ADULT) | 01/17/2018 (), 07/29/2016, 10/02/2012 | | + + + + Family History + + +------+ + | Medical History | Relation | Name | Comments | + + +------+ + | No known problems | Brother | | | + + +------+ + | No known problems | Child | | | + + +------+ + | No known problems | Child | | | + + +------+ + | No known problems | Child | | | + + +------+ + | Gout | Father | | | + + +------+ + | High blood pressure | Father | | | + + +------+ + | High cholesterol | Father | | | + + +------+ + | Esophageal cancer | Maternal | | | | | Aunt | | | + + +------+ + | Heart disease | Maternal | | | | | Aunt | | | + + +------+ + | Alcohol abuse | Maternal | | | | | Grandfath | | | | | er | | | + + +------+ + | Heart attack | Maternal | | | | | Grandfath | | | | | er | | | + + +------+ + | Heart disease | Maternal | | | | | Grandfath | | | | | er | | | + + +------+ + | High blood pressure | Maternal | | | | | Grandfath | | | | | er | | | + + +------+ + | Stroke | Maternal | | | | | Grandfath | | | | | er | | | + + +------+ + | Diabetes | Maternal | | | | | Grandmoth | | | | | er | | | + + +------+ + | Miscarriages / | Maternal | | | | stillbirths | Grandmoth | | | | | er | | | + + +------+ + | Stroke | Maternal | | | | | Grandmoth | | | | | er | | | + + +------+ + | High blood pressure | Mother | | | + + +------+ + | Multiple sclerosis | Mother | | | + + +------+ + | Lymphoma | Paternal | | | | | Aunt | | | + + +------+ + | Heart attack | Paternal | | | | | Grandfath | | | | | er | | | + + +------+ + | Heart disease | Paternal | | | | | Grandfath | | | | | er | | | + + +------+ + | High blood pressure | Paternal | | | | | Grandfath | | | | | er | | | + + +------+ + | High blood pressure | Paternal | | | | | Grandmoth | | | | | er | | | + + +------+ + | Obesity | Paternal | | | | | Grandmoth | | | | | er | | | + + +------+ + | No known problems | Paternal | | | | | Uncle | | | + + +------+ + | No known problems | Sister | | | + + +------+ + + +------+ + + | Relation | Name | Status | Comments | + +------+ + + | Brother | | Alive | | + +------+ + + | Brother | | | | + +------+ + + | Child | | Alive | | + +------+ + + | Child | | Alive | | + +------+ + + | Child | | Alive | | + +------+ + + | Child | | | | + +------+ + + | Child | | | | + +------+ + + | Child | | | | + +------+ + + | Daughter | | Alive | | + +------+ + + | Father | | Alive | | + +------+ + + | Maternal Aunt | | | | | | | (Age | | | | | 61) | | + +------+ + + | Maternal Aunt | | | | + +------+ + + | Maternal Aunt | | | | + +------+ + + | Maternal Grandfather | | | ND | | | | (Age | | | | | 84) | | + +------+ + + | Maternal Grandmother | | Alive | | + +------+ + + | Mother | | Alive | | + +------+ + + | Paternal Aunt | | Alive | | + +------+ + + | Paternal Aunt | | | | + +------+ + + | Paternal Grandfather | | | ND | | | | (Age | | | | | 72) | | + +------+ + + | Paternal Grandmother | | Alive | | + +------+ + + | Paternal Uncle | | Other | UNKNOWN STATUS | + +------+ + + | Paternal Uncle | | | | + +------+ + + | Sister | | Alive | | + +------+ + + | Sister | | Alive | | + +------+ + + | Sister | | | | + +------+ + + | Son | | Alive | | + +------+ + + | Son | | Alive | | + +------+ + + | Son | | Alive | | + +------+ + + | Son | | Alive | | + +------+ + + Social History + + + [...] | | + +---+---+---+ + + | Tobacco Cessation: Ready to Quit: No; Counseling Given: No | + + + + +---------+ [...] Height | 175.3 cm (5' 9") | 01/01/2020 11:59 AM | | | | | PST | | + + + + + | Body Mass Index | 24.35 | 01/01/2020 11:59 AM | | | | | PST | | + + + + + Plan of Treatment +--------+ + + + [...] [place] | | | | | | [address] | | | | | | | | +--------+ + + + + | 03/18/ | Office | Physical Medicine | Jovana Dawson | | | 2019 | Visit | and Rehabilitation | MELANY Man [address] | | | | | | [facility] | | | | | | [address] [place] | | | | | | [address] | | | | | | | | +--------+ + + + + | 04/01/ | Appointment | Oncology | Deny Mcmanus, | | | 2019 | | | MD [address] | | | | | | [address] [place], | | | | | | [place] [address] | | | | | | [phone] | | | | | | | | +--------+ + + + + | 04/08/ | Procedure | Physical Medicine | Leonard De Leon | | | 2019 | visit | and Rehabilitation | MD [address] | | | | | | [place], [place] | | | | | | [address] | | | | | | | | +--------+ + + + + | 04/30/ | Office | Cardiology | Shad Saavedra, | | | 2019 | Visit | | [address] | | | | | | [place], | | | | | | [place] [address] | | | | | | [phone] | | | | | | | | +--------+ + + + + + + + + + | Health Maintenance | Due Date | Last Done | Comments | + + + + + | Urine Drug Screening | | 12/13/2018 | | | | 0 | | | + + + + + | Vaccine: Influenza | | 08/20/2018, 08/16/2014, | | | (Season Ended) | 0 | 12/19/2012, Additional history | | | | | exists | | + + + + + | Cervical Cancer | | 07/19/2017, 03/18/2016 | | | Screening (Pap) | 2 | | | + + + + + | Vaccine: | | 03/13/2019, 01/16/2019 | | | Pneumococcal 19-64 | 4 | | | | (3 of 3 - PPSV23) | | | | + + + + + | Vaccine: | | 07/29/2016, 10/02/2012, | | | Dtap/Tdap/Td (8 - | 6 | 06/13/1991, Additional history | | | Td) | | exists | | + + + + + Procedures + +--------+ + + + | Procedure Name | Priori | Date/Time | Associated Diagnosis | Comments | | | ty | | | | + +--------+ + + + | MRI LUMBAR SPINE WO | STAT | 01/01/2020 | | Results for this | | CONTRAST | | 2:44 PM | | procedure are in the | | | | PST | | results section. | + +--------+ + + + | MRI THORACIC SPINE | STAT | 01/01/2020 | | Results for this | | WO CONTRAST LIMITED | | 1:38 PM | | procedure are in the | | | | PST | | results section. | + +--------+ + + + | MRI CERVICAL SPINE | STAT | 01/01/2020 | | Results for this | | WO CONTRAST LIMITED | | 1:38 PM | | procedure are in the | | | | PST | | results section. | + +--------+ + + + | MRI BRAIN WO | STAT | 01/01/2020 | | Results for this | | CONTRAST | | 1:28 PM | | procedure are in the | | | | PST | | results section. | + +--------+ + + + | ED INFORMATION | Routin | 01/01/2020 | | | | EXCHANGE | e | 11:53 AM | | | | | | PST | | | + +--------+ + + + +---+--------+ | | | | | Proced | | | ure | | | Note - | | | Ruben, | | | Lab In | | | | | | Hlseve | | | n - | | | 02/26/ | | | 2020 | | | 11:54 | | | AM PST | | | | | | Format | | | ting | | | of | | | this | | | note | | | might | | | be | | | differ | | | ent | | | from | | | the | | | origin | | | al.COL | | | LECTIV | | | E?NOTI | | | FICATI | | | ON?02/ | | | 26/202 | | | 0 | | | 11:51? | | | LENZ | | | , | | | KATHRY | | | N | | | L?MRN: | | | | | | [id number] | | | [id number] | | | riteri | | | a Met | | | PDMP | | | | | | Medica | | | id 5 | | | in | | | 12Secu | | | rity | | | and | | | Safety | | | No | | | recent | | | | | | Securi | | | ty | | | Events | | | | | | curren | | | tly on | | | | | | fileED | | | Care | | | Guidel | | | inesTh | | | ere | | | are | | | curren | | | tly no | | | ED | | | Care | | | Guidel | | | pedro | | | for | | | this | | | patien | | | t. | | | Please | | | check | | | your | | | facili | | | ty's | | | medica | | | l | | | record | | | s | | | system | | | .Flags | | | | | | [place] | | | ED | | | Dispar | | | ity | | | Measur | | | e - | | | [place] | | | has | | | develo | | | ped a | | | flag | | | ([place] | | | n ED | | | Dispar | | | ity | | | Measur | | | e) to | | | help | | | suppor | | | t | | | Medica | | | id | | | member | | | s with | | | | | | mental | | | | | | illnes | | | s. | | | [place] | | | | | | Health | | | | | | Author | | | ity | | | uses | | | claims | | | data | | | with a | | | | | | 36-mon | | | th | | | aparna | | | g look | | | back | | | period | | | to | | | identi | | | fy | | | member | | | s who | | | have | | | had | | | two or | | | more | | | diagno | | | ses of | | | | | | mental | | | | | | illnes | | | s | | | (does | | | not | | | need | | | to be | | | primar | | | y) in | | | any | | | settin | | | g | | | (e.g. | | | ED, | | | Inpati | | | ent, | | | primar | | | y | | | care). | | | | | | Flagge | | | d | | | member | | | s are | | | includ | | | ed in | | | the ED | | | | | | Dispar | | | ity | | | Measur | | | e | | | denomi | | | nator | | | popula | | | tion. | | | Flags | | | are | | | update | | | d | | | weekly | | | . / | | | Attrib | | | uted | | | By: | | | [place] | | | | | | Health | | | | | | Author | | | ity | | | (OHA) | | | / | | | Attrib | | | uted | | | On: | | | 12/25/ | | | 2020 | | | Prescr | | | iption | | | Drug | | | Report | | | (12 | | | Mo.)Rx | | | | | | Detail | | | sFill | | | Date | | | Drug | | | Descri | | | ption | | | Qty. | | | Prescr | | | iber | | | CS MED | | | | | | 2019-1 | | | 0-23 | | | CHLORD | | | IAZEPO | | | XIDE | | | 25 MG | | | CAPSUL | | | E 25 | | | LEONARD | | | ANNE | | | 4 0 | | | 2019-1 | | | 0-23 | | | LORAZE | | | GOGO 1 | | | MG | | | TABLET | | | 10 | | | LEONARD | | | ANNE | | | 4 0 | | | Rx | | | Summar | | | yMetri | | | c | | | Count | | | CS | | | II-V | | | Rx 2 | | | CS-II | | | Rx 0 | | | Quanti | | | ty | | | Dispen | | | sed 35 | | | | | | Unique | | | | | | Prescr | | | ibers | | | 1 | | | Unique | | | | | | Pharma | | | cies 1 | | | | | | Benzos | | | 2 | | | Opioid | | | s 0 | | | Long | | | Acting | | | | | | Opioid | | | s 0 | | | E.D. | | | Visit | | | Count | | | (12 | | | mo.)Fa | | | cility | | | | | | Visits | | | Low | | | Acuity | | | | | | [facility] | | | cole | | | [facility] | | | [facility] | | | n | | | Hospit | | | al 1 0 | | | Good | | | Shephe | | | rd | | | Health | | | 3 0 | | | Provid | | | ence | | | [facility] | | | [facility] | [facility] | [facility] | | | l | | | Center | | | 5 0 | | | Total | | | 9 0 | | | Note: | | [...] Recent | | | | | | Emerge | | | ncy | | | Depart | | | ment | | | Visit | | | [place] | | | yDate | | | Facili | | | ty | | | City | | | State | | | Type | | | Diagno | | | ses or | | | Chief | | | | | | Compla | | | int | | | Feb | | | 26, | | | 2020 | | | Provid | | | ence | | | [facility] | | [place] | | | [place] | | | Emerge | | | ncy | | | MRI | | | Nov | | | 19, | | | 2019 | | | Good | | | [facility] | | | rd | | | Health | | | | | | [place] | | | [place] | | | Emerge | | | ncy | | | CHEST | | | PAIN | | | SHORTN | | | ESS OF | | | | | | BREATH | | | | | | Chest | | | pain, | | | unspec | | | ified | | | Nov | | | 12, | | | 2019 | | | Good | | | [facility] | | | rd | | | Health | | | | | | [place] | | | [place] | | | Emerge | | | ncy | | | CHEST | | | PAIN | | | SHORTN | | | ESS OF | | | | | | BREATH | | | | | | Other | | | chest | | | pain | | | Oct | | | 28, | | | 2019 | | | Samari | | | cole | | | [place] | | | [place] | | | n [facility]. | | | [place] | | | [place] | | | Emerge | | | ncy | | | | | | Seizur | | | es | | | Unspec | | | ified | | | convul | | | sions | | | Sep | | | 9, | | | 2019 | | | Provid | | | ence | | | [facility] | | | [facility] | | | [place] | | | [place] | | | Emerge | | | ncy | | | poss | | | UTI | | | | | | Dysuri | | | a | | | Urinar | | | y | | | tract | | | infect | | | ion, | | | site | | | not | | | specif | | | ied | | | Anjum | | | 21, | | | 2019 | | | Provid | | | ence | | | St[facility] | | | [facility] | | | [place] | | | [place] | | | Emerge | | | ncy | | | N/V/D | | | Abd | | | Pain | | | | | | Vomiti | | | ng | | | (Sever | | | e) | | | Nausea | | | | | | Abdomi | | | nal | | | Pain | | | | | | Vomiti | | | ng, | | | unspec | | | ified | | | | | | Diarrh | | | ea, | | | unspec | | | ified | | | Anjum | | | 11, | | | 2019 | | | Provid | | | ence | | | St[facility] | | | [facility] | | | [place] | | | [place] | | | Emerge | | | ncy | | | poss | | | fluid | | | around | | | heart | | | | | | Pleuri | | | tic | | | Chest | | | Pain | | | (Adult | | | ) | | | Chest | | | pain, | | | unspec | | | ified | | | Apr | | | 30, | | | 2019 | | | Provid | | | ence | | | St[facility] | | | [facility] | | | [place] | | | [place] | | | Emerge | | | ncy | | | | | | CP/SOB | | | | | | Chest | | | Pain | | | | | | Suprav | | | entric | | | ular | | | tachyc | | | ardia | | | Feb | | | 26, | | | 2019 | | | Good | | | [facility] | | | rd | | | Health | | | | | | [place] | | | [place] | | | Emerge | | | ncy | | | | | | abnorm | | | al lab | | | | | | values | | | | | | Acute | | | leukem | | | ia of | | | unsp | | | cell | | | type | | | not | | | achiev | | | e | | | remiss | | | ion | | | | | | Essent | | | ial | | | (hemor | | | rhagic | | | ) | | | thromb | | | ocythe | | | hazel | | | Recent | | | | | | Inpati | | | ent | | | Visit | | | Summar | | | yDate | | | Facili | | | ty | | | City | | | State | | | Type | | | Diagno | | | ses or | | | Chief | | | | | | Compla | | | int | | | Feb | | | 27, | | | 2019 | | | [place] | | | | | | [facility] | | | and | | | Scienc | | | e | | | Univer | | | sity | | | [place] | | | [place] | | | Hemato | | | logy | | | | | | 18,400 | | | . | | | Elevat | | | ed | | | white | | | blood | | | cell | | | count, | | | | | | unspec | | | ified | | | | | | 18,400 | | | . | | | Essent | | | ial | | | (hemor | | | rhagic | | | ) | | | thromb | | | ocythe | | | hazel | | | Care | | | TeamPr | | | ovider | | | | | | Specia | | | lty | | | Phone | | | Fax | | | Servic | | | e | | | Dates | | | Ascenc | | | io, | | | Earle | | | , CHW | | | Commun | | | ity | | | Health | | | | | | Worker | | | [phone]) | | | | | | [phone] | | | 04 | | | Dec | | | 11, | | | 2019 - | | | | | | Curren | | | t | | | LUCIA | | | , | | | DOUGLA | | | S , MD | | | | | | Family | | | | | | Medici | | | ne | | | Curren | | | t | | | DOUGLA | | | S D | | | LUCIA | | | | | | Primar | | | y Care | | | | | | Curren | | | t | | | HERMIS | | | TON | | | GOOD | | | SHEPHE | | | RD | | | Primar | | | y Care | | | | | | Curren | | | t | | | LUCIA | | | , | | | DOUGLA | | | S D | | | Primar | | | y Care | | | ([phone]) | | | | | | [phone] | | [phone] | | | (509) | | | [phone] | | | 75 | | | Curren | | | t | | | OLSWAN | | | ALINA, | | | NANETTE | | | | | | Primar | | | y Care | | | (509) | | | | | | [phone] | | | 20 | | | (509) | | | [phone] | | | 66 | | | Curren | | | t | | | ALE | | | P | | | HACKNE | | | Y | | | Primar | | | y Care | | | | | | Curren | | | t | | | ANFISS | | | A | | | [facility] | | | [facility] | | | Primar | | | y Care | | | | | | Curren | | | t | | | Collec | | | tive | | | Portal | | | This | | | patien | | | [...] | | | https: | | | //prov | | | .colle | | | ctivem | | | edical | | | .com/n | | | otify/ | | | [email or web address] | | | [email or web address] | | | [phone] | | | -[email or web address]- | | | [phone] | | | [id number] | | | | | | PLEASE | | | NOTE: | | | 1. | | | Any | | | care | | | recomm | | | endati | | | ons | | | and | | | other | | | clinic | | | al | | | inform | | | ation | | | are | | | provid | | | ed as | | | guidel | | | pedro | | | or for | | | | | | histor | | | ical | | | purpos | | | es | | | only, | | | and | | | provid | | | ers | | | should | | | | | | exerci | | | se | | | their | | | own | | | clinic | | | al | | | judgme | | | nt | | | when | | | provid | | | ing | | | care. | | | 2. | | | You | | | may | | | only | | | use | | | this | | | inform | | | ation | | | for | | | purpos | | | es of | | | treatm | | | ent, | | | paymen | | | t or | | | health | | | care | | | operat | | | ions | | | activi | | | ties, | | | and | | | subjec | | | t to | | | the | | | limita | | | tions | | | of | | | applic | | | able | | | Collec | | | tive | | | Polici | | | es. | | | 3. | | | You | | | should | | | | | | consul | | | t | | | direct | | | ly | | | with | | | the | | | organi | | | zation | | | that | | | provid | | | ed a | | | care | | | guidel | | | ine or | | | other | | | | | | clinic | | | al | | | histor | | | y with | | | any | | | questi | | | ons | | | about | | | additi | | | onal | | | inform | | | ation | | | or | | | accura | | | cy or | | | comple | | | teness | | | of | | | inform | | | ation | | | provid | | | ed.? | | | 2019 | | | Collec | | | tive | | | Medica | | | l | | | Techn[employer] | | | logies | | | , Inc. | | | - | | | [email or web address] | | | llecti | | | vemedi | | | [email or web address] | | | m | +---+--------+ + +--------+ + + + | URINALYSIS [...] section. | + +--------+ + + + from Last 3 Months Results MRI Lumbar Spine wo Contrast (01/01/2020 2:44 PM PST) + + | Specimen | + + | | + + + + + | Impressions | Performed At | + + + | Grossly stable multilevel degenerative changes including mild | [facility] | | central stenosis at L4-5. Mild bilateral neural foraminal canal | | | stenoses are at L4-5 and L5-S1. Multiple follicles of bilateral | | | ovaries. Recommend clinical correlation for possible polycystic | | | ovarian disease. Dictated and Signed by: Jeffrey Nicholas MD | | | Electronically signed: 01/01/2020 2:59 PM | | + + + + + + | Narrative | Performed At | + + + | MRI LUMBAR SPINE WO CONTRAST 01/01/2020 2:28 PM HISTORY: | [facility] | | Emergent Patient - see comments right foot drop lymphoma, mother has | | | MS. COMPARISON: Multiple priors. PROTOCOL: Sagittal T2, | | | sagittal T1, axial T2, axial T1, sagittal STIR, coronal T2. | | | FINDINGS: Vertebral body height are preserved. There is mild | | | spondylosis. Multilevel small Schmorl's nodes are noted. | | | Moderate to severe disc narrowing is at L5-S1 with Modic type II | | | changes, stable compared to 12/14/2016. Imaged spinal cord and | | | cauda equina demonstrate normal signal with no evidence for | | | myelomalacia or mass lesions. The conus medullaris terminates at level | | | L1-2, which is normal. L1-2: Mild facet hypertrophy is seen with | | | no stenosis. L2-3: Mild facet hypertrophy is present with no | | | stenosis. L3-4: A 1 mm posterior disc bulge is present along with | | | mild facet hypertrophy. There is no stenosis. L4-5: A 4 mm | | | posterior disc bulge is observed along with mild facet hypertrophy. | | | Mild central stenosis is observed with AP dimension of the canal | | | measuring 9 mm. Mild bilateral neural foraminal stenoses are seen. | | | L5-S1: A posterior disc extrusion is visualized measuring 4 mm in | | | the AP dimension and extending 2 mm inferiorly. There is mild facet | | | hypertrophy. No central stenosis is seen. Mild bilateral neural | | | foraminal stenoses are visualized. Degenerative changes remain | | | stable compared to 12/14/2016. Multiple follicles are present of the | | | bilateral ovaries. | | + + + + + | Procedure Note | + + | Ruben, Rad Results In - 01/01/2020 3:02 PM PST MRI LUMBAR SPINE WO CONTRAST 01/01/2020 | | 2:28 PM HISTORY: Emergent Patient - see commentsright foot drop lymphoma, mother has | | MS.COMPARISON: Multiple priors.PROTOCOL: Sagittal T2, sagittal T1, axial T2, axial T1, | | sagittal STIR, coronalT2.FINDINGS:Vertebral body height are preserved. There is mild | | spondylosis. Multilevel smallSchmorl's nodes are noted. Moderate to severe disc | | narrowing is at L5-S1 with Modic type II changes, stablecompared to 12/14/2016. Imaged | | spinal cord and cauda equina demonstrate normal signal with no evidencefor myelomalacia | | or mass lesions. The conus medullaris terminates at level L1-2,which is normal.L1-2: | | Mild facet hypertrophy is seen with no stenosis.L2-3: Mild facet hypertrophy is present | | with no stenosis.L3-4: A 1 mm posterior disc bulge is present along with mild facet | | hypertrophy.There is no stenosis. L4-5: A 4 mm posterior disc bulge is observed along | | with mild facet hypertrophy.Mild central stenosis is observed with AP dimension of the | | canal measuring 9 mm.Mild bilateral neural foraminal stenoses are seen. L5-S1: A | | posterior disc extrusion is visualized measuring 4 mm in the APdimension and extending 2 | | mm inferiorly. There is mild facet hypertrophy. Nocentral stenosis is seen. Mild | | bilateral neural foraminal stenoses arevisualized.Degenerative changes remain stable | | compared to 12/14/2016.Multiple follicles are present of the bilateral ovaries.IMPRESSION: | | Grossly stable multilevel degenerative changes including mild central stenosisat L4-5. | | Mild bilateral neural foraminal canal stenoses are at L4-5 and L5-S1.Multiple follicles | | of bilateral ovaries. Recommend clinical correlation forpossible polycystic ovarian | | disease.Dictated and Signed by: Jeffrey Nicholas MD Electronically signed: 01/01/2020 2:59 | | PM | | | |L2-3: Mild facet hypertrophy is present with no stenosis. | | | |L3-4: A 1 mm posterior disc bulge is present along with mild facet hypertrophy. | |There is no stenosis. | | | |L4-5: A 4 mm posterior disc bulge is observed along with mild facet hypertrophy. | |Mild central stenosis is observed with AP dimension of the canal measuring 9 mm. | |Mild bilateral neural foraminal stenoses are seen. | | | |L5-S1: A posterior disc extrusion is visualized measuring 4 mm in the AP | |dimension and extending 2 mm inferiorly. There is mild facet hypertrophy. No | |central stenosis is seen. Mild bilateral neural foraminal stenoses are | |visualized. | | | |Degenerative changes remain stable compared to 12/14/2016. | | | |Multiple follicles are present of the bilateral ovaries. | | | |IMPRESSION: | |Grossly stable multilevel degenerative changes including mild central stenosis | |at L4-5. Mild bilateral neural foraminal canal stenoses are at L4-5 and L5-S1. | | | |Multiple follicles of bilateral ovaries. Recommend clinical correlation for | |possible polycystic ovarian disease. | | | |Dictated and Signed by: Jeffrey Nicholas MD | | Electronically signed: 01/01/2020 2:59 PM | + + + +---------+ + + | Performing | Address | City/State/Zipcode | Phone Number | | Organization | | | | + +---------+ + + | [facility] | | | | + +---------+ + + MRI Thoracic Spine wo Contrast Limited (01/01/2020 1:38 PM PST) + + | Specimen | + + | | + + + + + | Impressions | Performed At | + + + | Normal signal of the cervical and thoracic spinal cord. Disc | [facility] | | herniations involving cervical spine with mild central stenosis at | | | C3-4. Dictated and Signed by: Jeffrey Nicholas MD Electronically | | | signed: 01/01/2020 1:55 PM | | + + + + + + | Narrative | Performed At | + + + | MRI THORACIC SPINE WO CONTRAST LIMITED 01/01/2020 1:38 PM | [facility] | | HISTORY: Emergent Patient - see comments right foot drop h/o lymphoma | | | and family history of MS. COMPARISON: None. PROTOCOL: Coronal | | | T1, sagittal T2, sagittal T1, sagittal STIR. FINDINGS: CERVICAL | | | SPINE: Vertebral body height are normal. Disc height are | | | maintained. There is normal cord signal within the cervical spine. | | | There are congenitally short pedicles that decrease the size of | | | the central canal. Tiny posterior disc bulging are at C3-4, C5-6, and | | | C6-7 with mild central stenosis at C3-4. THORACIC SPINE: | | | Vertebral body heights are maintained. Multilevel small Schmorl's | | | nodes are noted. Disc height are normal. There is normal cord | | | signal throughout the thoracic spine. No significant stenosis is | | | seen. | | + + + + + | Procedure Note | + + | Ruben, Rad Results In - 01/01/2020 1:58 PM PST MRI THORACIC SPINE WO CONTRAST LIMITED | | 01/01/2020 1:38 PM HISTORY: Emergent Patient - see commentsright foot drop h/o lymphoma | | and family history of MS.COMPARISON: None.PROTOCOL: Coronal T1, sagittal T2, sagittal | | T1, sagittal STIR.FINDINGS:CERVICAL SPINE:Vertebral body height are normal.Disc height | | are maintained.There is normal cord signal within the cervical spine.There are | | congenitally short pedicles that decrease the size of the centralcanal. Tiny posterior | | disc bulging are at C3-4, C5-6, and C6-7 with mild centralstenosis at C3-4.THORACIC | | SPINE:Vertebral body heights are maintained. Multilevel small Schmorl's nodes | | arenoted.Disc height are normal.There is normal cord signal throughout the thoracic | | spine.No significant stenosis is seen.IMPRESSION: Normal signal of the cervical and | | thoracic spinal cord.Disc herniations involving cervical spine with mild central | | stenosis at C3-4.Dictated and Signed by: Jeffrey Nicholas MD Electronically signed: | | 01/01/2020 1:55 PM | |Disc height are maintained. | | | |There is normal cord signal within the cervical spine. | | | |There are congenitally short pedicles that decrease the size of the central | |canal. Tiny posterior disc bulging are at C3-4, C5-6, and C6-7 with mild central | |stenosis at C3-4. | | | |THORACIC SPINE: | |Vertebral body heights are maintained. Multilevel small Schmorl's nodes are | |noted. | | | |Disc height are normal. | | | |There is normal cord signal throughout the thoracic spine. | | | |No significant stenosis is seen. | | | |IMPRESSION: | |Normal signal of the cervical and thoracic spinal cord. | | | |Disc herniations involving cervical spine with mild central stenosis at C3-4. | | | |Dictated and Signed by: Jeffrey Nicholas MD | | Electronically signed: 01/01/2020 1:55 PM | + + + +---------+ + + | Performing | Address | City/State/Zipcode | Phone Number | | Organization | | | | + +---------+ + + | [facility] | | | | + +---------+ + + MRI Cervical Spine wo Contrast Limited (01/01/2020 1:38 PM PST) + + | Specimen | + + | | + + + + + | Impressions | Performed At | + + + | Normal signal of the cervical and thoracic spinal cord. Disc | [facility] | | herniations involving cervical spine with mild central stenosis at | | | C3-4. Dictated and Signed by: Jeffrey Cristopher, MD Electronically | | | signed: 01/01/2020 1:55 PM | | + + + + + + | Narrative | Performed At | + + + | MRI CERVICAL SPINE WO CONTRAST LIMITED 01/01/2020 1:31 PM | [facility] | | HISTORY: Emergent Patient - see comments right foot drop h/o lymphoma | | | and family history of MS. COMPARISON: None. PROTOCOL: Coronal | | | T1, sagittal T2, sagittal T1, sagittal STIR. FINDINGS: CERVICAL | | | SPINE: Vertebral body height are normal. Disc height are | | | maintained. There is normal cord signal within the cervical spine. | | | There are congenitally short pedicles that decrease the size of | | | the central canal. Tiny posterior disc bulging are at C3-4, C5-6, and | | | C6-7 with mild central stenosis at C3-4. THORACIC SPINE: | | | Vertebral body heights are maintained. Multilevel small Schmorl's | | | nodes are noted. Disc height are normal. There is normal cord | | | signal throughout the thoracic spine. No significant stenosis is | | | seen. | | + + + + + | Procedure Note | + + | Ruben, Rad Results In - 01/01/2020 1:58 PM PST MRI CERVICAL SPINE WO CONTRAST LIMITED | | 01/01/2020 1:31 PMHISTORY: Emergent Patient - see commentsright foot drop h/o lymphoma | | and family history of MS.COMPARISON: None.PROTOCOL: Coronal T1, sagittal T2, sagittal | | T1, sagittal STIR.FINDINGS:CERVICAL SPINE:Vertebral body height are normal.Disc height | | are maintained.There is normal cord signal within the cervical spine.There are | | congenitally short pedicles that decrease the size of the centralcanal. Tiny posterior | | disc bulging are at C3-4, C5-6, and C6-7 with mild centralstenosis at C3-4.THORACIC | | SPINE:Vertebral body heights are maintained. Multilevel small Schmorl's nodes | | arenoted.Disc height are normal.There is normal cord signal throughout the thoracic | | spine.No significant stenosis is seen.IMPRESSION: Normal signal of the cervical and | | thoracic spinal cord.Disc herniations involving cervical spine with mild central | | stenosis at C3-4.Dictated and Signed by: Jeffrey Nicholas MD Electronically signed: | | 01/01/2020 1:55 PM | |Disc height are maintained. | | | |There is normal cord signal within the cervical spine. | | | |There are congenitally short pedicles that decrease the size of the central | |canal. Tiny posterior disc bulging are at C3-4, C5-6, and C6-7 with mild central | |stenosis at C3-4. | | | |THORACIC SPINE: | |Vertebral body heights are maintained. Multilevel small Schmorl's nodes are | |noted. | | | |Disc height are normal. | | | |There is normal cord signal throughout the thoracic spine. | | | |No significant stenosis is seen. | | | |IMPRESSION: | |Normal signal of the cervical and thoracic spinal cord. | | | |Disc herniations involving cervical spine with mild central stenosis at C3-4. | | | |Dictated and Signed by: Jeffrey Nicholas MD | | Electronically signed: 01/01/2020 1:55 PM | + + + +---------+ + + | Performing | Address | City/State/Zipcode | Phone Number | | Organization | | | | + +---------+ + + | [facility] | | | | + +---------+ + + MRI Brain wo Contrast (01/01/2020 1:28 PM PST) + + | Specimen | + + | | + + + + + | Impressions | Performed At | + + + | No acute intracranial findings. Dictated and Signed by: Jeffrey | [facility] | | MD Cristopher Electronically signed: 01/01/2020 1:50 PM | | + + + + + + | Narrative | Performed At | + + + | MRI BRAIN WO CONTRAST 01/01/2020 1:10 PM HISTORY: Emergent | [facility] | | Patient - see comments right foot drop h/o MS. COMPARISON: None. | | | PROTOCOL: Sagittal T1, axial T2, axial FLAIR fat sat, axial T1, | | | axial diffusion weighted, axial GRE. FINDINGS: The brain | | | parenchyma shows no evidence for acute infarct, mass lesion, or | | | hemorrhage. The brainstem is unremarkable. The cerebellum is normal. | | | The pituitary gland has a normal appearance. The ventricles, | | | cisterns, and sulci are of normal size and shape. Normal vascular | | | flow voids are seen. The orbits are normal. Paranasal sinuses are | | | clear. Mastoid air cells are normal. Calvarium, temporal bones, | | | and skull base structures are unremarkable. | | + + + + + | Procedure Note | + + | Ruben, Rad Results In - 01/01/2020 1:53 PM PST MRI BRAIN WO CONTRAST 01/01/2020 1:10 PM | | HISTORY: Emergent Patient - see commentsright foot drop h/o MS.COMPARISON: | | None.PROTOCOL: Sagittal T1, axial T2, axial FLAIR fat sat, axial T1, axial | | diffusionweighted, axial GRE.FINDINGS:The brain parenchyma shows no evidence for acute | | infarct, mass lesion, orhemorrhage. The brainstem is unremarkable. The cerebellum is | | normal. Thepituitary gland has a normal appearance.The ventricles, cisterns, and sulci | | are of normal size and shape.Normal vascular flow voids are seen.The orbits are normal. | | Paranasal sinuses are clear. Mastoid air cells arenormal.Calvarium, temporal bones, and | | skull base structures are unremarkable.IMPRESSION: No acute intracranial | | findings.Dictated and Signed by: Jeffrey Nicholas MD Electronically signed: 01/01/2020 1:50 | | PM | |The brain parenchyma shows no evidence for acute infarct, mass lesion, or | |hemorrhage. The brainstem is unremarkable. The cerebellum is normal. The | |pituitary gland has a normal appearance. | | | |The ventricles, cisterns, and sulci are of normal size and shape. | | | |Normal vascular flow voids are seen. | | | |The orbits are normal. Paranasal sinuses are clear. Mastoid air cells are | |normal. | | | |Calvarium, temporal bones, and skull base structures are unremarkable. | | | |IMPRESSION: | |No acute intracranial findings. | | | |Dictated and Signed by: Jeffrey Nicholas MD | | Electronically signed: 01/01/2020 1:50 PM | + + + +---------+ + [...] - 1.030 | [facility] | | | [place], | | | [facility] | | [...] | | Comment | | | [facility] | | [...] ST. | [address] | [place] | [phone] | | [facility] | | [address] | | | - LABORATORY | | | | + + + + + Culture, Urine (12/25/2019 11:13 AM PST) + + + + + + | Component | Value | Ref Range | Performed | Pathologist | | | | | At | Signature | + + + + + + | Culture | >100,000 CFU/ml | | [facility] | | | | Escherichia coli | | [facility] | | | [...] [address] | [place] | [phone] | | [facility] | | [address] | | | - LABORATORY | | [...] | | | | | | | [facility], | | | | | | [...] e13a2 | | | | | | ([id number]) and | | | | | | [...] | | | | | e14a2 and [id number] | | | | | | transcripts. [...] 116: | | | | | | [id number]. 3. NCCN | | | | | [...] [place], | REFERENCE LAB | | [place], [place] [id number] Pantograph Watcher: Miguelina Lorenzo MD, Phone: | [facility] | | [phone] Performed at: - [facility] [address] [place], [place] [id number] Pantograph Watcher: Miguelina Lorenzo MD, | | | Phone: [phone] | | + + + + + + + + | Performing | Address | City/State/Zipcode | Phone Number | | Organization | | | | + + + + + | REFERENCE LAB | [address] | [place], [place] | [phone] | | [facility] | [place] | [address] | | + + + + + [...] | patients, use the | | [facility] | | | s | special reference [...] | Lymphocytes | | K/uL | [facility] | | | | | | MEDICAL | | | | | | CENTER - | | | | | | LABORATORY | | + + + + + + | Absolute | 0.64 | 0.00 - 1.00 | [facility] | | | Monocytes | | K/uL | [facility] | [...] | nRBC | | K/uL | [facility] | [...] Trim. Absolute (K/uL) Percentage (%) | [facility] | | 1st 0.003-0.091 K/uL 0.0-0.9% 2nd 0.007-0.247 K/uL [facility] | | 0.1-2.0% rust 0.018-0.456 K/uL 0.1-2.0% | - LABORATORY | + + + + + + + + | Performing | Address | City/State/Zipcode | Phone Number | | Organization | | | | + + + + + | [facility] | [address] | [place] | [phone] | | [facility] | | [address] | | | - LABORATORY | | [...] | | | | mmol/L | [facility] | | | | [...] 13 | 9 - 23 mg/dL | [facility] | | | | | | [facility] | | | | | | MEDICAL | | | | | | CENTER - | | | | | | LABORATORY | | + + + + + + | Creatinine | 0.81 | 0.55 - 1.02 | [facility] | | | | | mg/dL | [facility] | | | | | | MEDICAL | | | | | | CENTER - | | | | | | LABORATORY | | + + + + + + | eGFR if not | >60Comment: GLOMERULAR | >=60 | [facility] | | | | FILTRATION | mL/min/1.73m2 | [facility] | | | CHADIAN | RATE,ESTIMATED | | MEDICAL | | | | mL/min/1.25v6Ldiy than | | CENTER - | | [...] | | bulin Ratio | | | [facility] | | | | | | MEDICAL | | | | | | CENTER - | | | | | | LABORATORY | | + + + + + + | BUN/Creatin | 16.0 | | [facility] | | | ine Ratio | | | [facility] | | [...] + | [facility] | [address] | [place] | [phone] | | [facility] | | [address] | | | - LABORATORY | | | | + + + + + from Last 3 Months Insurance + +--------+ +--------+ +---------+--------+ | Payer | Benefi | Subscriber | Effect | Phone | Address | Type | | | t Plan | ID | rigoberto | | | | | | / | | Dates | | | | | | Group | | | | | | + +--------+ +--------+ +---------+--------+ | [place] | MEDICA | [id number] | | [phone] | | Medica | | | [place] | | 019-Pr | 2 | | id | | | PLUS | | esent | | | | + +--------+ +--------+ +---------+--------+ | [place]ID [place] | MEDICA | [id number] | | [phone] | | [place] | | | [place] | | 019-Pr | 2 | | id | | | PLUS | | esent | | | | + +--------+ +--------+ +---------+--------+ + +--------+ +--------+ + + | Guarantor Name | Accoun | Relation to | Date | Phone | Billing Address | | | t Type | Patient | of | | | | | | | | | | + +--------+ +--------+ + + | Ashley Lenz | Person | Self | [birth year] | [address] | | | al/Fam | | 1984 | [phone] | [place], [place] | | | santos | | | 4 (Home) | [id number] | + +--------+ +--------+ + + | Ashley Lenz | Person | Self | [birth year] | [address] | | | al/Fam | | 1984 | 8 | [place], [place] | | | [place] | | | 4 (Home) | [id number] | + +--------+ +--------+ + + Advance Directives + + + + + | Type | Date Recorded | Patient | Explanation | | | | 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 | | + + + + + | Power of | | | | | Coach Tour Driver | | | | + + + + + | Power of | | | | | Coach Tour Driver | | | | + + + + + | Advance | 01/17/2018 1:08 | | | | Directive | PM | | | + + + + + + + + + + | Code Status | Date | Date | Comments | | | Activated | Inactivated | | + + + + + | Full Code | 08/12/2019 | 08/13/2019 | | | | 9:14 AM | 10:56 AM | | + + + + + + +---------+---+ | Orders discussed with: | Patient | | + +---------+---+ + + + +---+ | | | | | + + + +---+ | Full Code | 01/16/2018 | 01/21/2018 | | | | 6:51 PM | 5:57 PM | | + + + +---+ + + + +---+ | | | | | + + + +---+ | Full Code | 10/18/2016 | 10/19/2016 | | | | 12:59 PM | 2:26 PM | | + + + +---+ + + + +---+ | | | | | + + + +---+ | Full Code | 10/14/2016 | 10/16/2016 | | | | 9:38 AM | 4:23 PM | | + + + +---+
--- OUTSIDE RECORDS SUMMARY | ~2020-03-13 | XMS | Encounter Summary ---
Demographics + + + | Address | [address] | | | [place] [address] | + + + | Home Phone | | + + + | Preferred Language | Unknown | + + + | Marital Status | | + + + | Hinduism Affiliation | Unknown | + + + [...] Team Providers + +------+ + | Care Stripper Color Name | Role | Phone | + +------+ + | Burton Masters MD | PCP | | + +------+ + Reason for Visit +--------+ + | Reason | Comments | +--------+ + | Other | | +--------+ + Encounter Details +--------+ + + + + | Date | Type | Department | Care Team | Description | +--------+ + + + + | 01/28/ | Telephone | [facility] | Deny Mcmanus, | Other | | 2019 | | [facility] | [address] | | | | | [facility] [address] [place], | | | | | [place] | [place] [address] | | | | | [place] [address] | [phone] | | | | | [phone] | | | +--------+ + + + [...] | | Visit | | [address] [facility] [address] | | | | | | [place] | | | | | | [address] | | | | | | | | +--------+ + + + + | 03/18/ | Office | Physical Medicine | Jovana Dawson | | | 2019 | Visit | and Rehabilitation | [address] | | | | | | [address] | | | | | | [address] [place] | | | | | | [address] | | | | | | | | +--------+ + + + + | 04/01/ | Appointment | Oncology | Deny Mcmanus, | | | 2019 | | | [address] | | | | | | [address] [place] | | | | | | [place] [address] | | | | | | [phone] | | | | | | | | +--------+ + + + + | 04/08/ | Procedure | Physical Medicine | Leonard De Leon | | | 2019 | visit | and Rehabilitation | MD Kiki Win | | | | | | [place] | | | | | | [address] | | | | | | | | +--------+ + + + + | 04/30/ | Office | Cardiology | Shad Saavedra, | | | 2019 | Visit | | MD [address] | | | | | | [place], | | | | | | [place] [address] | | | | | | [phone] | | | | | | | | +--------+ + + + + documented as of this encounter Visit Diagnoses Not on filedocumented in this encounter"
--- OUTSIDE RECORDS SUMMARY | ~2020-03-13 | XMS | Encounter Summary ---
Demographics + + + | Address | [address] | | | [place] [address] | + + + | Home Phone | | + + + | Preferred Language | Unknown | + + + | Marital Status | | + + + | Islam Affiliation | Unknown | + + + | Race | Unknown | + + + | Ethnic Group | Unknown | + + + Author + + + | Author | [facility] | | | and [place] | + + + | Organization | [facility] | | [...] Team Providers + +------+ + | Care Navy Material Inspector Name | Role | Phone | + +------+ + | No, Physician | PCP | Unavailable | + +------+ + Encounter Details +--------+ + + + + | Date | Type | Department | Care Team | Description | +--------+ + + + + | 06/03/ | Hospital | [facility] | Dorota Beal | Supervision of | | 2016 | Encounter | [address] | DO [address] | normal , | | | | [place], [place] | [facility] | second trimester | | | | [address] | [place] [address] | | | | | [phone] | [phone] | | | | | | | [...] | | 0 | | | | [id number]-Gzdrhskhu-Jk | | | | | 6 | [...] | | 0 | | | | [id number] | mouth Daily. | | | | [...] | | | Visit | | [address] [facility] [address] | | | | | | [place] | | | | | | [address] | | | | | | | | +--------+ + + + + | 03/18/ | Office | Physical Medicine | Jovana Dawson | | | 2019 | Visit | and Rehabilitation | [address]EL[address] | | | | | | [address] [facility] | | | | | | [place] | | | | | | [address] | | | | | | | | +--------+ + + + + | 04/01/ | Appointment | Oncology | Deny Mcmanus, | | | 2019 | | | [address] | | | | | | [place] | | | | | | [place] [address] | | | | | | [phone] | | | | | | | | +--------+ + + + + | 04/08/ | Procedure | Physical Medicine | Leonard De Leon | | | 2019 | visit | and Rehabilitation | MD Audelia [address] | | | | | | [place] | | | | | | [address] | | | | | | | | +--------+ + + + + | 04/30/ | Office | Cardiology | Shad Saavedra, | | | 2019 | Visit | | MD [address] | | | | | | [place], | | | | | | [place] [address] | | | | | | [phone] | | | | | | | | +--------+ + + + + documented as of this encounter Procedures + +--------+ + + + | Procedure Name | Priori | Date/Time | Associated Diagnosis | Comments | | | ty | | | | + +--------+ + + + | US OB 14 + WEEKS | Routin | 06/03/2016 | Supervision of | Results for this | | SINGLE OR FIRST | e | 3:25 PM | normal , | procedure are in the | | GESTATION | | PDT | second trimester | results section. | + +--------+ + + + documented in this encounter Results US OB 14 + Week Singl or First Gestation (06/03/2016 3:25 PM PDT) + + | Specimen | + + | | + + + + ----+ | Narrative | Performed At | + + ----+ | COMPLETE | [facility] | | OBSTETRIC ULTRASOUND 06/03/2016 at 1350 hours (PERFORMED AT [facility] | | | [facility]) CLINICAL HISTORY: Supervision of normal , second | | | trimester,approximately 20 weeks 0 days based on LMP | | | COMPARISON: None available FINDINGS: A single intrauterine fetus is | | | present, and is in breech presentation. The maternal cervix is closed | | | and measures 4.2 cm. The placenta is anterior,without evidence of | | | placenta previa or subchorionic hemorrhage. Amniotic fluidvolume is | | | subjectively within normal limits. biometric data:BPD of 4.6 | | | cm equals 19 weeks 6 days.Head circumference of 17.5 cm equals 20 | | | weeks 0 days.Abdominal circumference of 16.5 cm equals 21 weeks 4 | | | days.Femur length of 3.5 cm equals 20 weeks 6 days. Average | | | sonographic age is 20 weeks 4 days, which is 4 days greater than | | | thecalculated gestational age based on LMP. anatomic survey: | | | Contents of the posterior fossa and the lateralventricles are | | | unremarkable. A four-chamber heart is present, with a regularrate | | | of 153 BPM. Cardiac ventricular outflow tracts are normal in | | | orientation. A fluid filled stomach and bladder are present. | | | The spine, renalregion and three-vessel umbilical cord and its | | | insertion are unremarkable. Two upper and lower extremities are | | | visualized. IMPRESSION -1. SINGLE, LIVING INTRAUTERINE FETUS | | | IN BREECH PRESENTATION, WITH AVERAGESONOGRAPHIC AGE 20 WEEKS 4 DAYS, | | | WHICH IS 4 DAYS GREATER THAN THE CALCULATEDGESTATIONAL AGE BASED ON | | | LMP. 2. NORMAL ANATOMIC SURVEY. Dictated and Signed by: | | | Oleg Jones MD Electronically signed: 06/03/2016 6:11 PM | | | A fluid filled stomach and bladder are present. The spine, renal | | |region and three-vessel umbilical cord and its insertion are unremarkable. | | |Two upper and lower extremities are visualized. | | | | | |IMPRESSION - | | |1. SINGLE, LIVING INTRAUTERINE FETUS IN BREECH PRESENTATION, WITH AVERAGE | | |SONOGRAPHIC AGE 20 WEEKS 4 DAYS, WHICH IS 4 DAYS GREATER THAN THE CALCULATED | | |GESTATIONAL AGE BASED ON LMP. | | | | | |2. NORMAL ANATOMIC SURVEY. | | | | | |Dictated and Signed by: Oleg Jones MD | | | Electronically signed: 06/03/2016 6:11 PM | | | | | + + ----+ + + | Procedure Note | + + | Ruben, Rad Results In - 06/03/2016 6:14 PM PDT COMPLETE OBSTETRIC ULTRASOUND | | 06/03/2016 at 1350 hours (PERFORMED AT [facility])CLINICAL HISTORY: Supervision of | | normal , second trimester,approximately 20 weeks 0 days based on | | LMPCOMPARISON: None availableFINDINGS: A single intrauterine fetus is present, and is in | | breech presentation. The maternal cervix is closed and measures 4.2 cm. The placenta | | is anterior,without evidence of placenta previa or subchorionic hemorrhage. Amniotic | | fluidvolume is subjectively within normal limits. biometric data:BPD of 4.6 cm | | equals 19 weeks 6 days.Head circumference of 17.5 cm equals 20 weeks 0 days.Abdominal | | circumference of 16.5 cm equals 21 weeks 4 days.Femur length of 3.5 cm equals 20 weeks 6 | | days.Average sonographic age is 20 weeks 4 days, which is 4 days greater than | | thecalculated gestational age based on LMP. anatomic survey: Contents of the | | posterior fossa and the lateralventricles are unremarkable. A four-chamber heart is | | present, with a regularrate of 153 BPM. Cardiac ventricular outflow tracts are normal | | in orientation. A fluid filled stomach and bladder are present. The spine, | | renalregion and three-vessel umbilical cord and its insertion are unremarkable. Two | | upper and lower extremities are visualized. IMPRESSION -1. SINGLE, LIVING | | INTRAUTERINE FETUS IN BREECH PRESENTATION, WITH AVERAGESONOGRAPHIC AGE 20 WEEKS 4 DAYS, | | WHICH IS 4 DAYS GREATER THAN THE CALCULATEDGESTATIONAL AGE BASED ON LMP. 2. NORMAL | | ANATOMIC SURVEY.Dictated and Signed by: Oleg Jones MD Electronically signed: | | 06/03/2016 6:11 PM | |calculated gestational age based on LMP. | | | | anatomic survey: Contents of the posterior fossa and the lateral | |ventricles are unremarkable. A four-chamber heart is present, with a regular | |rate of 153 BPM. Cardiac ventricular outflow tracts are normal in orientation. | | A fluid filled stomach and bladder are present. The spine, renal | |region and three-vessel umbilical cord and its insertion are unremarkable. | |Two upper and lower extremities are visualized. | | | |IMPRESSION - | |1. SINGLE, LIVING INTRAUTERINE FETUS IN BREECH PRESENTATION, WITH AVERAGE | |SONOGRAPHIC AGE 20 WEEKS 4 DAYS, WHICH IS 4 DAYS GREATER THAN THE CALCULATED | |GESTATIONAL AGE BASED ON LMP. | | | |2. NORMAL ANATOMIC SURVEY. | | | |Dictated and Signed by: Oleg Jones MD | | Electronically signed: 06/03/2016 6:11 PM | + + + +---------+ + + | Performing | Address | City[facility] | Phone Number | | Organization | | | | + +---------+ + + | [facility] | | | | + +---------+ + + documented in this encounter Visit Diagnoses + + | Diagnosis | + + | Supervision of normal , second trimester | + + documented in this encounter"
--- OUTSIDE RECORDS SUMMARY | ~2020-03-13 | XMS | Encounter Summary ---
Demographics + + + | Address | [address] | | | [place] [address] | + + + | Home Phone | | + + + | Preferred Language | Unknown | + + + | Marital Status | | + + + | Pentecostalism Affiliation | Unknown | + + + | Race | Unknown | + + + | Ethnic Group | Unknown | + + + Author + + + | Author | [facility] | | | and [place] | + + + | Organization | [facility] | | [...] Team Providers + +------+ + | Care Environmental Geologist Name | Role | Phone | + +------+ + | Burton Masters MD | PCP | | + +------+ + Reason for Visit + + + | Reason | Comments | + + + | Follow-up | Patient is here for a follow up regarding her medications. She | | | states she is finally sleeping. | + + + Encounter Details +--------+---------+ + + + | Date | Type | Department | Care Team | Description | +--------+---------+ + + + | 07/22/ | Office | [facility] | Burton Masters, | Moderate episode of | | 2019 | Visit | [facility] | [address] | recurrent major | | | | [address] | [place] | depressive disorder | | | | [place] | [address] | ([facility]) (Primary Dx); | | | | [address] | | Lumbar spondylosis | | | | [phone] | | | +--------+---------+ + + + [...] + + + | Blood Pressure | 100/74 | 07/22/2019 10:47 AM | | | | | PDT | | + + + + + | Pulse | 67 | 07/22/2019 10:47 AM | | | | | PDT | | + + + + + | Temperature | 36.7 C (98 F) | 07/22/2019 10:47 AM | | | | | PDT | | + + + + + | Respiratory Rate | 16 | 07/22/2019 10:47 AM | | | | | PDT | | + + + + + | Oxygen Saturation | 97% | 07/22/2019 10:47 AM | | | | | PDT | | + + + + + | Inhaled Oxygen | - | - | | | Concentration | | | | + + + + + | Weight | 80.5 kg (177 lb 7.5 | 07/22/2019 10:47 AM | | | | oz) | PDT | | + + + + + | Height | 172.7 cm (5' 8") | 07/22/2019 10:47 AM | | | | | PDT | | + + + + + | Body Mass Index | 26.98 | 07/22/2019 10:47 AM | | | | | PDT | | + + + + + documented in this encounter Progress Notes Burton Masters MD - 07/22/2019 10:45 AM PDTFormatting of this note might be different f rom the original. Subjective: Patient ID: Ashley Webb is a 34 y.o. female. Chief Complaint Patient presents with Follow-up Patient is here for a follow up regarding her medications. She states she is finally slee ping. Mental Health Problem Primary symptoms comment: pt sleeping with addition of nortriptylinr. . Additional symptoms of the illness do not include anhedonia or insomnia. Back Pain This is a chronic problem. The problem is unchanged. The pain is present in the lumbar spin e. The pain is at a severity of 5/10. The pain is moderate. She has tried analgesics, bed re st, home exercises, heat, chiropractic manipulation, ice, muscle relaxant, walking and NSAID s for the symptoms. The treatment provided no relief. 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 Drug use: Yes Types: Marijuana Sexual activity: Yes Partners: Male Social History Narrative Merged History Encounter Review of Systems Musculoskeletal: Positive for back pain. Psychiatric/Behavioral: The patient does not have insomnia. . Objective: BP 100/74 | Pulse 67 | Temp 36.7 C (98 F) (Temporal) | Resp 16 | Ht 1.727 m (5' 8") | Wt 80.5 kg (177 lb 7.5 oz) | LMP 07/13/2019 (Exact Date) | SpO2 97% | ? No | BMI 26.98 kg/m Physical Exam Constitutional: She is well-developed, [...] not diaphoretic. Psychiatric: Affect normal. Assessment/Plan: 1. Moderate episode of recurrent major depressive disorder (HCC) 2. Lumbar spondylosis Requested Prescriptions Signed Prescriptions Disp Refills oxyCODONE (ROXICODONE) 5 mg tablet 90 tablet 0 Sig: Take 1 tablet by mouth every 8 hours as needed for Pain. 25 minute visit > 50% counseling regarding [...] | | | | Visit | | [address] [place] [address] | | | | | | [place] | | | | | | [address] | | | | | | | | +--------+ + + + + | 03/18/ | Office | Physical Medicine | Jovana Dawson | | 2019 | Visit | and Rehabilitation | MELANY [address] | | | | | | [facility] | | | | | | [address] [place] | | | | | | [id number] | | | | | | | | +--------+ + + + + | 04/01/ | Appointment | Oncology | Deny Mcmanus, | | | 2019 | | | [address] | | | | | | [place], | | | | | | [place] [address] | | | | | | [phone] | | | | | | | | +--------+ + + + + | 04/08/ | Procedure | Physical Medicine | Leonard De Leon | | 2019 | visit | and Rehabilitation | T, [address] | | | | | | [place] | | | | | | [address] | | | | | | | | +--------+ + + + + | 04/30/ | Office | Cardiology | Shad Saavedra, | | | 2019 | Visit | | [address] | | | | | | [place], | | | | | | [place] [address] | | | | | | [phone] | | | | | | | | +--------+ + + + + documented as of this encounter Visit Diagnoses + + | Diagnosis | + + | Moderate episode of recurrent major depressive disorder (HCC) - Primary | + + | Lumbar spondylosis Lumbosacral spondylosis without myelopathy | + + documented in this encounter
--- OUTSIDE RECORDS SUMMARY | ~2020-03-13 | XMS | Encounter Summary ---
Demographics + + + | Address | [address] | | | [place] [address] | + + + | Home Phone | | + + + | Preferred Language | Unknown | + + + | Marital Status | | + + + | Alevism Affiliation | Unknown | + + + | Race | Unknown | + + + | Ethnic Group | Unknown | + + + Author + + + | Author | [facility] | | | and [place] | + + + | Organization | [facility] | | [...] Team Providers + +------+ + | Care Music Assistant Name | Role | Phone | + +------+ + | Burton Masters MD | PCP | | + +------+ + Reason for Visit + + + | Reason | Comments | + + + | Patient Concerns | | + + + Encounter Details +--------+ + + + + | Date | Type | Department | Care Team | Description | +--------+ + + + + | 04/16/ | Telephone | [facility] | Deny Mcmanus, | Patient Concerns | | 2019 | | [facility] | [address] | | | | | [facility] [address] [place], | | | | | [place] | [place] [address] | | | | | [place] [address] | [phone] | | | | | [phone] | | | +--------+ + + + [...] | | | Visit | | [address] [facility] [address] | | | | | | [place] | | | | | | [address] | | | | | | | | +--------+ + + + + | 03/18/ | Office | Physical Medicine | Jovana Dawson | | 2019 | Visit | and Rehabilitation | [address] | | | | | | [address] [facility] | | | | | | [address] [place] | | | | | | [address] | | | | | | | | +--------+ + + + + | 04/01/ | Appointment | Oncology | Deny Mcmanus, | | 2019 | | | [address] | | | | | | [address] [place] | | | | | | [place] [address] | | | | | | [phone] | | | | | | | | +--------+ + + + + | 04/08/ | Procedure | Physical Medicine | Leonard De Leon | | | 2019 | visit | and Rehabilitation | MD Kiki Win | | | | | | [place] | | | | | | [address] | | | | | | | | +--------+ + + + + | 04/30/ | Office | Cardiology | Shad Saavedra, | | | 2019 | Visit | | MD [address] | | | | | | [place] | | | | | | [place] [address] | | | | | | [phone] | | | | | | | | +--------+ + + + + documented as of this encounter Visit Diagnoses Not on filedocumented in this encounter"
--- OUTSIDE RECORDS SUMMARY | ~2020-03-13 | XMS | Encounter Summary ---
Demographics + + + | Address | [address] | | | [place] [address] | + + + | Home Phone | | + + + | Preferred Language | Unknown | + + + | Marital Status | Single | + + + | Tenriism Affiliation | NON | + + + | Race | White | + + + | Ethnic Group | Not or | + + + Author + + + | Author | [facility] | + + + | Organization | [facility] | + + + | [...] Providers + +------+ + | Care Marketing Administrator Name | Role | Phone | + +------+ + | Burton Masters MD | PCP | | + +------+ + Encounter Details +--------+ + + + + | Date | Type | Department | Care Team | Description | +--------+ + + + + | 01/03/ | Pharmacy | Specialty Pharmacy | | | | 2019 | Visit | Services [address] | | | | | | [address] | | | | | | [place], [place] | | | | | | [address] | | | | | | [phone] | | | +--------+ + + + [...] [address] | | | | | | [place], [place] | | | | | | [address] | | | | | | [phone] | | | | | | | | +--------+---------+ + + + documented as of this encounter Visit Diagnoses Not on filedocumented in this encounter"
--- OUTSIDE RECORDS SUMMARY | ~2020-03-13 | XMS | Encounter Summary ---
Demographics + + + | Address | [address] | | | [place] [address] | + + + | Home Phone | | + + + | Preferred Language | Unknown | + + + | Marital Status | | + + + | Alevism Affiliation | Unknown | + + + | Race | Unknown | + + + | Ethnic Group | Unknown | + + + Author + + + | Author | [facility] | | | and [place] | + + + | Organization | [facility] | | | and [...] Team Providers + +------+ + | Care Specimen Preparation Assistant Name | Role | Phone | + +------+ + | Burton Masters MD | PCP | | + +------+ + Reason for Visit + + + | Reason | Comments | + + + | Back Pain | low back pain | + + + Evaluate & Treat (Routine) +--------+ + + + + + | Status | Reason | Specialty | Diagnoses / | Referred By | Referred To | | | | | Procedures | Contact | Contact | +--------+ + + + + + | Closed | Specialty | Physical | Diagnoses | [place], | [place], | | | Services | Medicine and | DDD | Burton | Leonard Win MD | | | Required | Rehabilitatio | (degenerativ | [place] | [address] | | | | n | e disc | [address] | [facility] | | | | | disease), | [address] | [place], [place] | | | | | lumbar | [place], [place] | [address] Phone: | | | | | Lumbar | [address] | [phone] | | | | | radiculopath | Phone: | Fax: | | | | | y | [phone] | [phone] | | | | | Osteoarthrit | Fax: | | | | | | is of spine | [phone] | | | | | | with | | | | | | | radiculopath | | | | | | | y, lumbar | | | | | | | region | | | +--------+ + + + + + Encounter Details +--------+---------+ + + + | Date | Type | Department | Care Team | Description | +--------+---------+ + + + | 03/29/ | Office | [facility] | Valentino, | Lumbar radiculopathy | | 2017 | Visit | PHYSIATRY [address] | MELANY [address]our [address] | - left lower | | | | [address] | [address] | extremity (Primary | | | | [place], [place] | [place] [address] | Dx); DDD | | | | [address] | [phone] | (degenerative disc | | | | [phone] | | disease), lumbar; | | | | | | Chronic midline low | | | | | | back pain, with | | | | | | sciatica presence | | | | | | unspecified; | | | | | | Osteoarthritis of | | | | | | spine with | | | | | | radiculopathy, | | | | | | lumbar region | +--------+---------+ + + + Social History [...] + + + | Blood Pressure | 147/83 | 03/29/2017 9:53 AM | | | | | PDT | | + + + + + | Pulse | 92 | 03/29/2017 9:53 AM | | | | | PDT [...] + + + + | Weight | 93.9 kg (207 lb) | 03/29/2017 9:53 AM | | | | | PDT | | + + + + + | Height | 172.7 cm (5' 8") | 03/29/2017 9:53 AM | | | | | PDT | | + + + + + | Body Mass Index | 31.47 | 03/29/2017 9:53 AM | | | | | PDT | | + + + + + documented in this encounter Patient Instructions Patient Instructions Dawn Avelar PA-C - 03/29/2017 9:40 AM PDT1) Epidural injecti on targeting the pinched nerve, with Dr. De Leon, 3 week follow up Foraminal Stenosis/Radicular Pain: Foraminal stenosis is a narrowing of the spinal foramen, the hole through which passes a s orquidea nerve as it exits the spine. It is usually a form of degenerative spine disease which occurs slowly over time with wear and tear of the spinal column. Arthritic changes of the s pine, a herniated discs, soft tissue swelling and bony growth can all impinge on the formal foramen and compress the nerve. Because the narrowing (stenosis) of the foramen pinches a nerve, the primary symptoms relat ed to this disorder is directly related to that nerve which is affected. This obviously vari es depending on which foramina are involved. The pinched nerve can lead to basically two cl asses of symptoms. Symptoms include pain in the distribution of that nerve as well as numbne ss, tingling and or weakness can occur. Steroids are a very strong anti-inflammatory, this helps reduce pain by reducing swelling. Complications of steroids are bleeding, infection, and an increase of blood sugars if you are diabetic. USP risk can lead to osteoporosis which is why we limited the number of injections to 3 times per year. With an epidural injection, the nerve root that comes out of the spine and travels down your leg is targeted. The procedure is about 20 minutes long . You will lie on your back while x-rays are taken. Once the region is marked, it is numbe d and then injected with steroids. 2) May have to target the degenerative arthritis afterwards Facet Pain: The facet joint is located when the vertebrae (bones of the spine) connect to each other. Pain occurs with extension and rotation of the spine (bending backwards and rotating), bend ing over and lifting a heavy load, standing, first things in the morning. Images of the spi ne show facet arthritis, fluid in the facet joints. Treatment included rest, anti-inflammat ories, physical therapy focusing on core strengthening, facet steroid injections. Steroids are a very strong anti-inflammatory, this helps reduce pain by reducing swelling. Complications of steroids are bleeding, infection, and an increase of blood sugars if you are diabetic. termite control servicer risk can lead to osteoporosis which is why we limited the number of injections to 3 times per year. Facet joints are located when the vertebrae (bones of the spine) connect to each other. Typically these joints can have arthritis in this and give a person centralized low back pain. The procedure takes about 20 minutes. You lie on your b ack and x-rays are taken. Once the region is localized, it is numbed and then injected with steroid. Follow-up at the hospital thirty minutes before your scheduled procedure to allow for time to check in. You may eat and drink as usual on the day of the procedure. If you are scheduled for an epidural injection do not take any blood thinning medications f or at least 5-7 days prior to your procedure unless you have been instructed by another phys ician not to discontinue blood thinning medications. If you are having a procedure other than an epidural injection (i.e. facet injection, media l branch block, SI joint injection or other joint injection) it is not absolutely necessary to discontinue blood thinning medications but doing so will decrease the risk of bruising or bleeding. If you have had a prior stroke, DVT or PE or if you are taking blood thinning medication be cause you have atrial fibrillation, a prosthetic cardiac valve replacement or heart stenting do not stop taking your blood thinning medications unless you have permission from your car diologist or primary care provider. All other medications should be taken as usual on the day of the procedure. Common blood thinning medications include: Aspirin (a baby aspirin is o.k.) Ibuprofen (Advil or Motrin) Naproxen (Aleve) Nabumetone (Relafen) Clopidogrel (Plavix) Dipyridamole/ASA (Aggrenox) Warfarin (Coumadin) Dabigatran (Pradaxa) Rivaroxaban (Xarelto) There are many others. If you have questions about your medications and whether or not you should stop any medications please contact our office. If you are having an epidural injection or if you take any medication for relaxation/sedati on on the day of the procedure you must provide a medical van driver to take you home. For all procedur es it is recommended that someone else drive you home. documented in this encounter Progress Notes Dawn Avelar PA-C - 03/29/2017 9:40 AM PDTFormatting of this note might be differe nt from the original. CHIEF COMPLAINT: Chief Complaint Patient presents with Back Pain low back pain HISTORY OF PRESENT ILLNESS: The patient is a 32 y.o. female being seen today in follow-up for complaints of low back pa in x 7 years. The patient has been seen for this complaint in the past, with initial visit started by Dr. De Leon. She saw him in 2014 while she was , physical therapy wa s recommended. She just finished with physical therapy a few weeks ago. This was done here at [facility] [place] [facility] [place]. She rates the pain as severe and constant. She describes the pain as Sharp, numbing, shoo ting, throbbing, tingling. Her symptoms worsen with standing and sitting. Her symptoms imp rove with rest, changing position, physical therapy and use of hydrocodone. The patient does describe numbness of the left lower lateral leg. She does report weaknes s of the left leg. The patient does not report recent falls or trauma. She does not have b owel and bladder dysfunction. She does not have saddle anesthesia. Treatments for these complaints have included physical therapy, use of opioids, NSAIDS. Patient's medications, allergies, past medical, surgical, social and family histories were reviewed and updated as appropriate. CURRENT MEDICATIONS: Current Outpatient Prescriptions Medication Sig Dispense Refill HYDROcodone-acetaminophen (NORCO) 5-325 mg per tablet Take 1 tablet by mouth every 12 h ours as needed for Pain. 60 tablet 0 varenicline (CHANTIX STARTING MONTH ) 0.5 MG X 11 & 1 MG X 42 tablet Take 0.5 mg by mouth once daily on days 1-3 and 0.5 mg twice daily on days 4-7, then 1 mg twice daily. 53 t ablet 0 varenicline (CHANTIX) 1 MG tablet Take 1 tablet by mouth 2 times daily. 60 tablet 1 No current facility-administered medications for this visit. ALLERGIES: No Known Allergies REVIEW OF SYSTEMS: (in the last 24 hours) GENERALLY: No fever, chills, weight changes. EYES: No vision changes. EARS, NOSE, AND THROAT: No hearing loss or tinnitis,no difficulty swallowing, no hoarseness . NEUROMUSCULAR: Please see the review of systems discussed above in the history of present illness. In addition, the patient has no dizziness, no blackouts, no headaches. CARDIOVASCULAR: No chest pain, no palpitations PULMONARY: No shortness of breath, no cough. GASTROINTESTINAL: No nausea, vomiting or diarrhea GENITOURINARY: No dysuria or hematuria SKIN: No rashes. HEMATOLOGIC/LYMPHATIC: No abnormal bleeding PHYSICAL EXAMINATION: Vitals: 03/29/17 0953 BP: 147/83 Pulse: 92 PainSc: 6 PainLoc: Back Body mass index is 31.47 kg/m. GENERAL: The patient is well developed and well nourished. She does not appear uncomfortab le when seated. HEENT: HEAD/FACE: EYES: Normocephalic and atraumatic. There are no areas of recent trauma. Normal sclerae without icterus. SKIN Limited skin exam shows no significant rashes or lesions. There are not scars in the lumbar region. CHEST: The patient is in no acute respiratory distress with unlabored respirations. HEART: There is not lower extremity edema. ABDOMEN: The patient is not overweight. NEUROLOGIC: The patient is awake, alert, and oriented to time, place, person. She follows simple and complex commands. Her speech is fluent. She comprehends speech well. She has no apparent deficits with short or terminal gauger memory. She has appropriate fund of knowledge Cranial nerves 2-12 appear grossly intact. Sensory exam does not show diminished sensation to light touch in the lower extremities. REFLEX: RIGHT LEFT PATELLAR 2+ 2+ ACHILLES 2+ 1 MUSCULOSKELETAL There is no tenderness in the midline of the cervical or thoracic spine. T here is no major palpable deformity of the spine. Straight leg raise and slump-sit are positive on the left. Tyshawn's maneuver and impingem ent testing were negative for any groin pain. There was no tenderness to palpation over th e greater trochanters or sacral sulci. The patient localized the majority of the pain to th e L5/S1 and down the left leg. Lumbar facet loading was positive. Strength testing showed 5/5 strength throughout the lower extremities. The patient was able to heel and toe walk wi thout difficulty. There was no redness, effusion, warmth or joint line tenderness in the kn ees or ankles. RADIOGRAPHIC REVIEW: The patient's imaging was reviewed in detail with the patient today during the visit. The M RI from 2017 shows Severe degenerative changes at L5-S1 with Modic changes and facet arthrit is. The patient has some disc bulging to the left with contacting the S1 nerve. Lumbar x-rays show no major instability. ASSESSMENT: 1. Lumbar radiculopathy - left lower extremity 2. DDD (degenerative disc disease), lumbar 3. Chronic midline low back pain, with sciatica presence unspecified 4. Osteoarthritis of spine with radiculopathy, lumbar region PLAN: 1. The patient has had significant conservative care including medications (NSAIDS and narc otics), PT (multiple sessions over the years) and nanny caregiver. Unfortunately she kathy nues to have significant discomfort. It appears to me that the pain is primarily coming fro m the disc bulge/pinched nerve. I did feel that she would be a good candidate for intervent ional procedures and I offered left S1 TFESI. 2. She will follow up 3 weeks after the injection, we discussed possibly trying facet inje ctions afterwards. 3. Medications have been reviewed at today's visit with no changes made at this time. 4. She has visited with Brian Swift in Neurosurgery, she is working on smoking cessation and is hoping to prolong surgery for a few years. ELECTRONICALLY SIGNED BY: Dawn Avelar PA-C, 03/29/2017 CC; Sonam docum ented in this encounter Plan of Treatment +--------+ + + + + | Date | Type | Specialty | Care Team | Description | +--------+ + + + + | 03/17/ | Virtual | Neurosurgery | Zuhair Flores | | | 2019 | Office | | MD [address] | | | | Visit | | [place] [address] | | | | | | [place] | | | | | | [address] | | | | | | | | +--------+ + + + + | 03/18/ | Office | Physical Medicine | Jovana Dawson | | | 2019 | Visit | and Rehabilitation | MELANY Man [address] | | | | | | [place] | | | | | | [place] | | | | | | [address] | | | | | | | | +--------+ + + + + | 04/01/ | Appointment | Oncology | Deny Mcmanus, | | | 2019 | | | [address] | | | | | | [place] | | | | | | [place] [address] | | | | | | [phone] | | | | | | | | +--------+ + + + + | 04/08/ | Procedure | Physical Medicine | Leonard De Leon | | | 2019 | visit | and Rehabilitation | MD Audelia [address] | | | | | | [place] | | | | | | [address] | | | | | | | | +--------+ + + + + | 04/30/ Office | Cardiology | Shad Saavedra, | | | 2019 | Visit | | [address] | | | | | | [place], | | | | | | [place] [address] | | | | | | [phone] | | | | | | | | +--------+ + + + + + +---------+--------+ + + | Name | Type | Priori | Associated Diagnoses | Order Schedule | | | | ty | | | + +---------+--------+ + + | FL ELSIE Lumbar | Imaging | Routin | Lumbar | Expected: | | Transforaminal | | e | radiculopathy - left | 03/29/2017, Expires: | | | | | lower extremity | 03/30/2018 | | | | | DDD (degenerative | | | | | | disc disease), | | | | | | lumbar Chronic | | | | | | midline low back | | | | | | pain, with sciatica | | | | | | presence unspecified | | | | | | Osteoarthritis of | | | | | | spine with | | | | | | radiculopathy, | | | | | | lumbar region | | + +---------+--------+ + + documented as of this encounter Visit Diagnoses + + | Diagnosis | + + | Lumbar radiculopathy - left lower extremity - Primary Thoracic or lumbosacral | | neuritis or radiculitis, unspecified | + + | DDD (degenerative disc disease), lumbar Degeneration of lumbar or lumbosacral | | intervertebral disc | + + | Chronic midline low back pain, with sciatica presence unspecified | + + | Osteoarthritis of spine with radiculopathy, lumbar region | + + documented in this encounter
--- OUTSIDE RECORDS SUMMARY | ~2020-03-13 | XMS | Encounter Summary ---
Demographics + + + | Address | [address] | | | [place] [address] | + + + | Home Phone [...] + + | Author | [facility] | | | and [place] | + + + | Organization | [facility] | | | [...] Team Providers + +------+ + | Care Television Presenter Name | Role | Phone | + [...] Description | +--------+--------+ + + + | 07/05/ | Refill | [facility] | Burton Masters, | Medication Refill | | 2019 | | [facility] [place] | [address] | | | | | [address] | [place] | | | | | [place] | [address] | | | | | [address] | | | | | | [phone] | | | +--------+--------+ + + + [...] [place] | | | | | | [address] | | | | | | | [...] [place] | | | | | | [address] | | | | | | | | +--------+ + + + + | 04/01/ | Appointment | Oncology | Deny Mcmanus, | | | 2019 | | | MD [address] | | | | | | [place] | | | | | | [place] [address] | | | | | | [phone] | | | | | | | | +--------+ + + + + | 04/08/ | Procedure | Physical Medicine | Leonard De Leon | | | 2019 | visit | and Rehabilitation | MD Kiki Win | | | | | | [place] | | | | | | [address] | | | | | | | | +--------+ + + + + | 04/30/ | Office | Cardiology | Shad Saavedra, | | | 2019 | Visit | | MD [address] | | | | | | [place], | | | | | | [place] [address] | | | | | | [phone] | | | | | | | | +--------+ + + + + documented as of this encounter Visit Diagnoses Not on filedocumented in this encounter"
--- OUTSIDE RECORDS SUMMARY | ~2020-03-13 | XMS | Encounter Summary ---
Demographics + + + | Address | [address] | | | [place] [address] | + + + | Home Phone | | + + + | Preferred Language | Unknown | + + + | Marital Status | | + + + | Oriental Orthodox Affiliation | Unknown | + + + | Race | Unknown | + + + | Ethnic Group | Unknown | + + + Author + + + | Author | [facility] | | | and [place] | + + + | Organization | [facility] | | [...] Team Providers + +------+ + | Care Farmworker Name | Role | Phone | + +------+ + | Burton Masters MD | PCP | | + +------+ + Reason for Visit + + + | Reason | Comments | + + + | Appointment Question | | + + + Encounter Details +--------+ + + + + | Date | Type | Department | Care Team | Description | +--------+ + + + + | 06/11/ | Telephone | [facility] | Deny Mcmanus, | Appointment Question | | 2019 | | [facility] | [address] | | | | | [facility] [address] [place], | | | | | [place] | [place] [address] | | | | | [place] [address] | [phone] | | | | | [phone] | | | +--------+ + + + [...] [place] | | | | | | [id number] | | | | | | | | +--------+ + + + + | 03/18/ | Office | Physical Medicine | Jovana Dawson | | | 2019 | Visit | and Rehabilitation | MELANY Man [address] | | | | | | [address] [facility] | | | | | | [address] [place] | | | | | | [address] | | | | | | | | +--------+ + + + + | 04/01/ | Appointment | Oncology | Deny Mcmanus, | | | 2019 | | | MD [address] | | | | | | [place], | | | | | | [place] [address] | | | | | | [phone] | | | | | | | | +--------+ + + + + | 04/08/ | Procedure | Physical Medicine | Leonard De Leon | | | 2019 | visit | and Rehabilitation | MD Kiki Win | | | | | | [place] | | | | | | [address] | | | | | | | | +--------+ + + + + | 04/30/ | Office | Cardiology | Shad Saavedra, | | | 2019 | Visit | | MD [address] | | | | | | [place], | | | | | | [place] [address] | | | | | | [phone] | | | | | | | | +--------+ + + + + documented as of this encounter Visit Diagnoses Not on filedocumented in this encounter"
--- OUTSIDE RECORDS SUMMARY | ~2020-03-13 | XMS | Encounter Summary ---
Demographics + + + | Address | [address] | | | [place] [address] | + + + | Home Phone | | + + + | Preferred Language | Unknown | + + + | Marital Status | | + + + | Pentecostalism Affiliation | Unknown | + + + | Race | Unknown | + + + | Ethnic Group | Unknown | + + + Author + + + | Author | [facility] | | | and [place] | + + + | Organization | [facility] | | | [...] Team Providers + +------+ + | Care Delicatessen Clerk Name | Role | Phone | [...] | | | | BCR/ABL-posi | [address] | [place], | | | | | tive, in | [place], | [place] [address] | | | | | relapse | [place] | Phone: | | | | | (HCC) | [address] | [phone] | | | | | Chronic | Phone: | Fax: | | | | | myeloid | [phone] | [phone] | | | | | leukemia, | Fax: | | | | | | BCR/ABL-posi | [phone] | | | | | | tive, not | | | | | | | having | | | | | | | achieved | | | | | | | remission | | | | | | | (HCC) | | | | | | | Procedures | | | | | | | DE OFFICE | | | | | | | OUTPATIENT | | | | | | | VISIT 25 | | | | | | | MINUTES | | | | | | | [address] | | | +--------+--------+ + + + + Encounter Details +--------+ + + + + | Date | Type | Department | Care Team | Description | +--------+ + + + + | 06/18/ | Hospital | [facility] | YonathanDeny, | CML (chronic | | 2019 | Encounter | [facility] | [address] | myelocytic leukemia) | | | | [facility]Y CLINIC [address] [place], | (HCC) (Primary Dx) | | | | [address] | [place] [address] | | | | | [place] [address] | [phone] | | | | | [phone] | | | +--------+ + + + [...] + + + | Blood Pressure | 132/88 | 06/18/2019 4:19 PM | | | | | PDT | | + + + + + | Pulse | 73 | 06/18/2019 4:19 PM | | | | | PDT | | + + + + + | Temperature | 36.6 C (97.9 F) | 06/18/2019 4:19 PM | | | | | PDT | | + + + + + | Respiratory Rate | 16 | 06/18/2019 4:19 PM | | | | | PDT | | + + + + + | Oxygen Saturation | 98% | 06/18/2019 4:19 PM | | | | | PDT | | + + + + + | Inhaled Oxygen | - | - | | | Concentration | | | | + + + + + | Weight | 81.5 kg (179 lb 10.8 | 06/18/2019 4:19 PM | | | | oz) | PDT | | + + + + + | Height | - | - | | + + + + + | Body Mass Index | 27.32 | 04/26/2019 11:45 AM | | | [...] tablets by | 60 | 0 | 05/21/20 | | | 0.5 mg tablet | [...] tablet by | 90 | 0 | 06/11/20 | | | (ROXICODONE) 5 mg | mouth every 8 hours | tablet | | 19 | 9 | | tablet | as needed for Pain. | | | | | + + + +---------+ + + | prochlorperazine | Take 1 tablet by | 30 | 0 | 06/11/20 | | | 10 mg tablet | [...] encounter Progress Notes Deny Mcmanus MD - 06/18/2019 6:59 AM PDTFormatting of this note might be different fr om the original. Hematology-Oncology Progress Note [facility] Pt. Name/Age/: Ashley Webb 34 y.o. 1985 CSN: [id number] Date of service: 06/18/2019 Provider: Deny Mcmanus MD HEMATOLOGY/ONCOLOGY PROBLEM LIST: Chronic myeloid leukemia (CML), BCR/ABL-positive ([facility]) 01/02/2019 Initial Diagnosis Chronic myeloid leukemia, BCR/ABL-positive, not having achieved remission (HCC) 01/04/2019 - 04/26/2019 Chemotherapy dasatinib - intolerant 04/29/2019 - Chemotherapy imatinib Of note, above dates are not necessarily exact. Assessment and plan: Patient is clearly tolerating imatinib better, feels like she can stick with it despite the symptoms that she does have. Reviewed her serial BCR/ABL results, somewhat variable due to different labs but overall improving rapidly not yet consistent with a major molecular resp onse. 1. Continue imatinib 400 mg daily. 2. Recheck in 3 months with CBC/CMP/BCR/ABL drawn at the [facility] facility beforehand. Subjective: The patient chart and medications were reviewed in detail and the patient was seen and exam ined. Ashley Webb is a 34 y.o. 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 Recall that when last seen patient was having progressive GI symptoms thought related to da satinib. Subsequently saw Dr. Jalen Moore at [facility] who recommended switching to imatini b which resulted in rapid improvement in symptoms of still having occasional nausea, vomitin g once a day, some periorbital swelling. Patient had labs drawn through [facility] on 05/20/2019 resulting in a BCR ABL1, I-S 0.053%. She was seen on 06/10/[address] Moore at [facility], they did another value in [facility] which has come back at 0.2%. Recall that the previous one done through that same lab on 04/29/2019 was 0.43%. PMH: Past Medical History: Diagnosis Date Abdominal [...] level: Not on file Occupational History Occupation: [employer] Employer: [employer] Tobacco Use Smoking status: Current Every Day [...] disease Maternal Aunt Review of Systems: Constitutional: Reports "no energy". Denies high fevers, shaking chills, anorexia, reports a lot of nausea with vomiting every morning, denies weight loss, or night sweats. Reports n o Appetite d/t nausea. Ear, Nose, Mouth, Throat: Denies odynophagia, dysphagia, or tinnitus. Cardiovascular: Denies shortness of breath, dyspnea on exertion, chest pain, palpitations o r orthopnea. Respiratory: Denies cough, hemoptysis, or sputum production. Gastrointestinal: Denies abdominal pain, constipation, diarrhea, melena, or bright red bloo d per rectum. Genitourinary: Denies hematuria or dysuria. Musculoskeletal: Denies joint pain or tenderness. Neurologic: Denies headache, visual changes, or numbness/tingling of the extremities. Endocrine: Denies peripheral edema or heat/cold intolerance. Swelling around her eyes. Hematologic: Denies spontaneous bleeding. Reports easily bruises. Integumentary: Denies rash, wounds or other skin concerns. Pain: Reports pain is 6/10 in back and long bones. Note: Here for follow up. Labs done at [facility] on June 10 My chart: using Medications: Current Outpatient Medications Medication Sig ALPRAZolam (XANAX) 0.5 mg tablet Take 1-2 tablets by mouth 3 times daily as needed. buPROPion (WELLBUTRIN) 100 mg tablet Take 1 tablet by mouth 2 times daily. diphenoxylate-atropine (LOMOTIL) 2.5-0.025 mg per tablet Take 2 tablets for diarrhea, t hen one tablet every 2 hours as needed. imatinib (GLEEVEC) 400 mg tablet Take 400 mg by mouth Daily. lamoTRIgine (LAMICTAL) 25 mg tablet Take 1 tablet by mouth Daily. loperamide (IMODIUM A-D) 2 MG tablet 2 tablets by mouth followed by 1 tablet by mouth a fter each loose stool; Max 16 mg/day nortriptyline (PAMELOR) 25 mg capsule Take 1 capsule by mouth nightly. ondansetron (ZOFRAN) 8 MG tablet Take 1 tablet by mouth every 12 hours. oxyCODONE (ROXICODONE) 5 mg tablet Take 1 tablet by mouth every 8 hours as needed for P ain. prochlorperazine 10 mg tablet Take 1 tablet by mouth every 8 hours as needed. raNITIdine (ZANTAC) 150 mg tablet Take 1 tablet by mouth Daily. No current facility-administered medications for this encounter. Allergies: Allergies Allergen Reactions Tape [Adhesive & Tape] Vitals: Temp: 36.6 C (97.9 F) BP: 132/88 Pulse: 73 Resp: 16 SpO2: 98 % on Temp :Temp Av.6 C (97.9 F) Min: 36.6 C (97.9 F) Max: 36.6 C (97.9 F) Wt. Current: Weight: 81.5 kg (179 lb 10.8 oz) Physical Exam: ECOG Performance Status: 1 General: The patient is alert and oriented. No acute distress. Here with significant oth er. HEENT: PERRL, mild periorbital edema. Non-icteric. Skin: No rashes, bruising, or petechiae. Neurological: , No focal deficits noted. Speech fluent. Psychiatric: Normal mood and affect. Appropriate. Diagnostic studies: Available data and image reports were reviewed personally. See reports. Significant resul ts and findings are addressed here or in the Assessment and Plan. Electronically signed by: Deny Mcmanus MD 06/18/2019 18:19 CC: Burton Masters MD Total time in face to face discussion with the patient and family was 15 minutes; more than 50% of the time was spent in counseling and coordination of care. Portions of this chart may have been created with [employer] voice recognition software. Occasi onal wrong-word or [...] | | | | Visit | | [place] [address] | | | | | | [place] | | | | | | [address] | | | | | | | | +--------+ + + + + | 03/18/ | Office | Physical Medicine | Jovana Dawson | | | 2019 | Visit | and Rehabilitation | [address] | | | | | | [address] | | | | | | [place] | | | | | | [address] | | | | | | | | +--------+ + + + + | 04/01/ | Appointment | Oncology | Deny Mcmanus, | | | 2019 | | | [address] | | | | | | [place] | | | | | | [place] [address] | | | | | | [phone] | | | | | | | | +--------+ + + + + | 04/08/ | Procedure | Physical Medicine | Leonard De Leon | | | 2019 | visit | and Rehabilitation | MD Audelia [address] | | | | | | [place] | | | | | | [address] | | | | | | | | +--------+ + + + + | 04/30/ | Office | Cardiology | Shad Saavedra, | | | 2019 | Visit | | [address] | | | | | | [place], | | | | | | [place] [address] | | | | | | [phone] | | | | | | | [...] encounter Results BCR-ABL1 for CML and All (11/25/2019 12:34 PM PST) + + + + + + | Component | Value | Ref Range | Performed | Pathologist | | | | | At | Signature | + + + + + + | b2a2 | CommentComment: | % | REFERENCE | [...] + + + | Interpretat | CommentComment: NEGATIVE | | REFERENCE | | | ion: | for the BCR-ABL1 e1a2 | | LAB [facility] | | | | (p190), e13a2 (b2a2, | | - BKR | | | | p210) and e14a2(b3a2, | | | | | | p210) fusion | | | | | | transcripts. These | | | | | | results do not rule out | | | | | | thepresence of rare | | | | | | BCR-ABL1 transcripts not | | | | | | detected by this assay. | | | | + + + + + + | Director | CommentComment: Elsie Koo, | | REFERENCE | | | Review | PhD, FACMG | | LAB [facility] | | | | Director, | | - BKR | | | | Molecular Genetics | | | | | | [facility] | | | | | | [place] [facility] | | | | | | | | | | | | Biology and Pathology | | | | | | | | | | | | [facility], | | | | | | [place] | | | | | | | [...] e13a2 | | | | | | ([id number]) and | | | | | | [...] | | | | | e14a2 and [id number] | | | | | | transcripts. [...] | | | | | | and [place] S: Seminars | | | | | | in Hematology 2002; | | | | | | 40 (suppl2):62-68. | | | | | | 2. carlito Sheikh | | | | | | al. Blood 2010; 116: | | | | | | [id number]. 3. NCCN | | | | | | Clinical Practice | | | | | | Guidelines in Oncology, | | | | | | Chronic Myeloid | | | | | | Leukemia. V2. 2017. | | | | + + + + + + + + | Specimen | + + | Blood - Right upper | | arm structure (body | | structure) | + + + + + | Narrative | Performed At | + + + | Performed at: 01 - [facility] [address] [facility] [place], | REFERENCE LAB | | [place] [phone] National Sales Consultant: Miguelina Lorenzo MD, Phone: | [facility] [place] | | [phone] Performed at: 02 - [facility] [address] | | | [address] [facility], [place] [id number] National Sales Consultant: Miguelina Lorenzo MD, | | | Phone: [phone] | | + + + + + + + + | Performing | Address | City/State/Zipcode | Phone Number | | Organization | | | | + + + + + | REFERENCE LAB | [address] | [place], [place] | [phone] | | [place] | [facility] | [address] | | + + + + + Comprehensive Metabolic Panel (11/25/2019 12:34 PM PST) + + + + + + | Component | Value | Ref Range | Performed | Pathologist | | | | | At | Signature | + + + + + + | Na | 143 | 136 - 145 | [facility] | | | | | mmol/L | [facility] | | | | | | MEDICAL | | | | | | CENTER - | | | | | | LABORATORY | | + + + + + + | K | 4.2 | 3.4 - 5.1 | [facility] | | | | | mmol/L | [facility] | | | | | | MEDICAL | | | | | | CENTER - | | | | | | LABORATORY | | + + + + + + | Cl | 112 (H) | 98 - 107 mmol/L | [facility] | | | | | | [facility] | | | | | | MEDICAL | | | | | | CENTER - | | | | | | LABORATORY | | + + + + + + | CO2 | 27 | 20 - 31 mmol/L | [facility] [...] + + + + | Glucose | 97 | 60 - 106 mg/dL | [facility] | | | | | | [facility] | | | | | | MEDICAL | | | | | | CENTER - | | | | | | LABORATORY | | + + + + + + | BUN | 7 (L) | 9 - 23 mg/dL | [facility] | | | | | | [facility] | | [facility] | [facility] | | | | | | CENTER - | | | | | | LABORATORY | | + + + + + + | Creatinine | 0.82 | 0.55 - 1.02 | [facility] | | | | | mg/dL | [facility] | | | | | | MEDICAL | | | | | | CENTER - | | | | | | LABORATORY | | + + + + + + | eGFR if not | >60Comment: GLOMERULAR | >=60 | [facility] | | | | FILTRATION | mL/min/1.73m2 | [facility] | | | TRISTANIAN | RATE,ESTIMATED | | MEDICAL | | | | mL/min/1.12f2Oxcw than | | CENTER - | | [...] + + + + | Calcium | 8.7 | 8.7 - 10.4 | [facility] | | | | | mg/dL | [facility] | | | | | | MEDICAL | | | | | | CENTER - | | | | | | LABORATORY | | + + + + + + | Albumin | 4.0 | 3.2 - 4.8 g/dL | [facility] | | | | | | [facility] | | | | | | MEDICAL | | | | | | CENTER - | | | | | | LABORATORY | | + + + + + + | Bilirubin | 0.7 | 0.3 - 1.2 mg/dL | [facility] [...] + + + + | AST | 32 | 0 - 34 U/L | [facility] | | | | | | [facility] | | | | | | MEDICAL | | | | | | CENTER - | | | | | | LABORATORY | | + + + + + + | ALT | 37 | 10 - 49 U/L | [facility] | | | | | | [facility] | | | | | | MEDICAL | | | | | | CENTER - | | | | | | LABORATORY | | + + + + + + | Alkaline | 68 | 46 - 116 U/L | [facility] | | | Phosphatase | | | [facility] | | | | | | MEDICAL | | | | | | CENTER - | | | | | | LABORATORY | | + + + + + + | Globulin | 1.9 (L) | 2.1 - 3.8 g/dL | [facility] | | | | | | [facility] | | | | | | MEDICAL | | | | | | CENTER - | | | | | | LABORATORY | | + + + + + + | Albumin/Simona | 2.1 (H) | 0.8 - 1.9 | [facility] | | | bulin Ratio | | | [facility] | | | | | | MEDICAL | | | | | | CENTER - | | | | | | LABORATORY | | + + + + + + | BUN/Creatin | 8.5 | | [facility] | | | ine [...] | + + + + + | [facility] | [address] | [place] | [phone] | | [facility] | | [address] | | | - LABORATORY | | | | + + + + + CBC with Differential (11/25/2019 12:34 PM PST) + + + + + + | Component | Value | Ref Range | Performed | Pathologist | | | | | At | Signature | + + + + + + | WBC | 4.8 | 4.0 - 11.0 K/uL | [facility] | | | | | | [facility] | | | | | | MEDICAL | | | | | | CENTER - | | | | | | LABORATORY | | + + + + + + | RBC | 3.87 | 3.70 - 5.20 | [facility] | | | | | M/uL | [facility] | | | | | | MEDICAL | | | | | | CENTER - | | | | | | LABORATORY | | + + + + + + | Hemoglobin | 13.0 | 11.5 - 16.0 | [facility] | | | | | g/dL | [facility] | | | | | | MEDICAL | | | | | | CENTER - | | | | | | LABORATORY | | + + + + + + | Hematocrit | 37.9 | 34.0 - 47.0 % | [facility] | | | | | | [facility] | | | | | | MEDICAL | | | | | | CENTER - | | | | | | LABORATORY | | + + + + + + | MCV | 97.9 | 83.0 - 101.0 fL | [facility] [...] + + + + | RDW-SD | 51.6 (H) | 35.1 - 46.3 fL | [facility] | | | | | | [facility] | | | | | | MEDICAL | | | | | | CENTER - | | | | | | LABORATORY | | + + + + + + | Platelet | 137 (L) | 140 - 440 K/uL | [facility] | | | Count | | | [facility] | | | | | | MEDICAL | | | | | | CENTER - | | | | | | LABORATORY | | + + + + + + | MPV | 9.1 | 6.5 - 12.4 fL | [facility] | | | | | | [facility] | | | | | | MEDICAL | | | | | | CENTER - | | | | | | LABORATORY | | + + + + + + | % | 45.1 | 45.0 - 82.0 % | [facility] | | | Neutrophils | | | [facility] | | | | | | MEDICAL | | | | | | CENTER - | | | | | | LABORATORY | | + + + + + + | % | 46.2 (H) | 20.0 - 45.0 % | [facility] | | | Lymphocytes | | | [facility] | | | | | | MEDICAL | | | | | | CENTER - | | | | | | LABORATORY | | + + + + + + | % Monocytes | 5.6 | 4.0 - 12.0 % | [facility] | | | | | | [facility] | | | | | | MEDICAL | | | | | | CENTER - | | | | | | LABORATORY | | + + + + + + | % | 2.3 | 0.0 - 5.0 % | [facility] [...] | patients, use the | | [facility] | | | s | special reference ranges | | MEDICAL | | | | listed below. | | CENTER - | | | | | | LABORATORY | | + + + + + + | Absolute | 2.18 | 1.80 - 8.50 | [facility] | | | Neutrophils | | K/uL | [facility] | | | | | | MEDICAL | | | | | | CENTER - | | | | | | LABORATORY | | + + + + + + | Absolute | 2.23 | 0.60 - 3.20 | [facility] | | | Lymphocytes | | K/uL | [facility] | | | | | | MEDICAL | | | | | | CENTER - | | | | | | LABORATORY | | + + + + + + | Absolute | 0.27 | 0.00 - 1.00 | [facility] | [...] + + + + | Absolute | 0.01Comment: For | 0.00 - 0.03 | [facility] [...] [address] | [place] | [phone] | | [facility] | | [address] | | | - LABORATORY | | | | + + + + + LABS - EXTERNAL SCAN (05/20/2019 12:00 AM PDT) + + + | Narrative | Performed At | + + + | Ordered by an | | | unspecified provider. | | + + + documented in this encounter Visit Diagnoses + + | Diagnosis | + + | CML (chronic myelocytic leukemia) (HCC) - Primary Chronic myeloid leukemia, without | | mention of having achieved remission | + + documented in this encounter
--- OUTSIDE RECORDS SUMMARY | ~2020-03-13 | XMS | Encounter Summary ---
Demographics + + + | Address | [address] | | | [place] [address] | + + + | Home Phone | | + + + | Preferred Language | Unknown | + + + | Marital Status | | + + + | Catholic Affiliation | Unknown | + + [...] Team Providers + +------+ + | Care Ballistics Expert Name | Role | Phone | + [...] Description | +--------+--------+ + + + | 08/04/ | Refill | [facility] | Burton Masters, | Medication Refill | | 2019 | | [facility] [place] | [address] | | | | | [address] | [place] | | | | | [place] | [address] | | | | | [address] | | | | | | [phone] | | | +--------+--------+ + + + [...] [place] | | | | | | [address] | | | | | | | | +--------+ + + + + | 03/18/ | Office | Physical Medicine | Jovana Dawson | | | 2019 | Visit | and Rehabilitation | MELANY Man [address] | | | | | | [address] [email or web address] | | | | | | [address] [place] | | | | | | [address] | | | | | | | | +--------+ + + + + | 04/01/ | Appointment | Oncology | Deny Mcmanus, | | | 2019 | | | MD [address] | | | | | | [place] | | | | | | [place] [address] | | | | | | [phone] | | | | | | | | +--------+ + + + + | 04/08/ | Procedure | Physical Medicine | Leonard De Leon | | | 2019 | visit | and Rehabilitation | MD Kiki Win | | | | | | [place] | | | | | | [address] | | | | | | | | +--------+ + + + + | 04/30/ | Office | Cardiology | Shad Saavedra, | | | 2019 | Visit | | MD Alan Cruz | | | | | | [place], | | | | | | [place] [address] | | | | | | [phone] | | | | | | | | +--------+ + + + + documented as of this encounter Visit Diagnoses Not on filedocumented in this encounter"
--- OUTSIDE RECORDS SUMMARY | ~2020-03-13 | XMS | Encounter Summary ---
Demographics + + + | Address | [address] [address] | | | [place] [address] | + + + | Home Phone | | + + + | Preferred Language | Unknown | + + + | Marital Status | | + + + | Buddhism Affiliation | Unknown | + + + | Race | Unknown | + + + | Ethnic Group | Unknown | + + + Author + + + | Author | [facility] | | | and [place] | + + + | Organization | [facility] [...] Team Providers + +------+ + | Care Metrology Manager Name | Role | Phone | [...] Description | +--------+--------+ + + + | 01/04/ | Refill | [facility] | Burton Masters, | Medication Refill | | 2019 | | [facility] [place] | [address] | | | | | [address] | [place] | | | | | [place] | [address] | | | | | [address] | | | | | | [phone] | | | +--------+--------+ + + + [...] | | | | Visit | | [address] | | | | | | [place], [place] | | | | | | [address] | | | | | | | | +--------+ + + + + | 03/18/ | Office | Physical Medicine | Jovana Dawson | | | 2019 | Visit | and Rehabilitation | [address]ANY [address] | | | | | | [address] | | | | | | [address] [place] | | | | | | [address] | | | | | | | | +--------+ + + + + | 04/01/ | Appointment | Oncology | Deny Mcmanus, | | 2019 | | | MD Alan CRUZ | | | | | | [address] | | | | | | [place] [address] | | | | | | [phone] | | | | | | | | +--------+ + + + + | 04/08/ | Procedure | Physical Medicine | Leonard De Leon | | 2019 | visit | and Rehabilitation | MD Kiki Win | | | | | | [place] | | | | | | [address] | | | | | | | | +--------+ + + + + | 04/30/ | Office | Cardiology | Shad Saavedra, | | | 2019 | Visit | | MD Alan Cruz | | | | | | [place], | | | | | | [place] [address] | | | | | | [phone] | | | | | | | | +--------+ + + + + documented as of this encounter Visit Diagnoses Not on filedocumented in this encounter"
--- OUTSIDE RECORDS SUMMARY | ~2020-03-13 | XMS | Encounter Summary ---
Demographics + + + | Address | [address] | | | [place] [address] | + + + | Home Phone | | + + + | Preferred Language | Unknown | + + + | Marital Status | Single | + + + | Yazidi Affiliation | NON | + + + | Race | White | + + + | Ethnic Group | Not or | + + + Author + + + | Author | [facility] | + + + | Organization | [facility] | + + + | [...] Providers + +------+ + | Care Director Of Teacher Education Name | Role | Phone | + +------+ + | Burton Masters MD | PCP | | + +------+ + Encounter Details +--------+ + + + + | Date | Type | Department | Care Team | Description | +--------+ + + + + | 04/29/ | Telephone | Pharmacy @ [facility] | Shayla Trejo CPhT | | | 2019 | | [facility] [address] | [address] | | | | | Myron Arce Mailcode: | [address] [place], | | | | | [facility] | [place] [address] | | | | | and Healing, | | | | | | [address] | | | | | | [place], [place] | | | | | | [address] | | | +--------+ + + + [...] Ar[address] | | | | | | [place], [place] | | | | | | [address] | | | | | | [phone] | | | | | | | | +--------+---------+ + + + documented as of this encounter Visit Diagnoses Not on filedocumented in this encounter"
--- OUTSIDE RECORDS SUMMARY | ~2020-03-13 | XMS | Encounter Summary ---
Demographics + + + | Address | [address] | | | [place] [address] | + + + | Home Phone [...] Team Providers + +------+ + | Care Human Capital Manager Name | Role | Phone | + +------+ + | Burton Masters MD | PCP | | + +------+ + Encounter Details +--------+ + + + + | Date | Type | Department | Care Team | Description | +--------+ + + + + | 01/08/ | Hospital | [facility] | Dorota Beal | Twin gestation in | | 2018 | Encounter | [facility] | DO [address] | third trimester, | | | | [address] | [address] [facility] | unspecified multiple | | | | [place] | [place] [address] | gestation type | | | | [address] | [phone] | | | | | [phone] | | | +--------+ + + + [...] + | Respiratory Rate | 20 | 01/08/2018 11:52 AM | | | | | PST | | + + + + + | Oxygen Saturation | - | - | | + + + + + | Inhaled Oxygen | - | - | | | Concentration | | | | + + + + + | Weight | 111.1 kg (245 lb) | 01/08/2018 11:52 AM | | | | | PST | | + + + + + | Height | 172.7 cm (5' 8") | 01/08/2018 11:52 AM | | | | | PST | | + + + + + | Body Mass Index | 37.25 | 01/08/2018 11:52 AM | | | | | PST | | + + + + + documented in this encounter Discharge Instructions Instructions Latia Sampson RN - 01/08/2018Discharge Education for the Undelivered Patie nt You [...] [place] | | | | | | [address] | | | | | | | | +--------+ + + + + | 03/18/ | Office | Physical Medicine | Jovana Dawson | | | 2019 | Visit | and Rehabilitation | MELANY Man [address] | | | | | | [address] [facility] [facility] | | | | | | [address] [place] | | | | | | [address] | | | | | | | | +--------+ + + + + | 04/01/ | Appointment | Oncology | Deny Mcmanus, | | 2019 | | | MD [address] | | | | | | [place] | | | | | | [place] [address] | | | | | | [phone] | | | | | | | | +--------+ + + + + | 04/08/ | Procedure | Physical Medicine | Leonard De Leon | | | 2019 | visit | and Rehabilitation | MD [address] | | | | | | [place] | | | | | | [address] | | | | | | | | +--------+ + + + + | 04/30/ | Office | Cardiology | Shad Saavedra, | | | 2019 | Visit | | [address] | | | | | | [place], | | | | | | [place] [address] | | | | | | [phone] | | | | | | | | +--------+ + + + + documented as of this encounter Procedures + +--------+ + + + | Procedure Name | Priori | Date/Time | Associated Diagnosis | Comments | | | ty | | | | + +--------+ + + + | US BIOPHYSICAL | STAT | 01/08/2018 | | Results for this | | PROFILE TWINS WO | | 2:00 PM | | procedure are in the | | NON STRESS | | PST | | results section. | + +--------+ + + + | US OB FOLLOW UP | Routin | 01/08/2018 | Twin gestation in | Results for this | | TWINS | e | 9:25 AM | third trimester, | procedure are in the | | | | PST | unspecified multiple | results section. | | | | | gestation type | | + +--------+ + + + documented in this encounter Results US Biophysical Twins WO Non Stress (01/08/2018 2:00 PM PST) + + | Specimen | + + | | + + + + + | Narrative | Performed At | + + + | US BIOPHYSICAL PROFILE TWINS WO NON STRESS dated 01/08/2018 1:25 | [facility] | | PM. TWIN A: Biophysical Profile: Tone: 2/2 Motion (Three | | | gross body movements): 2/2 Breathin/2 Fluid volume: 2/2 (the | | | fifth = 2.7 cm) Total: 8/8 heart rate is 154 bpm. | | | SD ratio: 3.2-3.9 (normal </= 3.0 after 30 weeks) The fetus is in | | | cephalic presentation. Placenta position: Anterior Estimated | | | gestational age: 34 weeks 2 days by LMP. TWIN B: | | | Biophysical Profile: Tone: 2/2 Motion (Three gross body movements): | | | 2/2 Breathin/2 Fluid volume: 2/2 (deepest pocket = 3.6 cm) | | | Total: 8/8 heart rate is 136 bpm. SD ratio: 2.8-3.5 | | | (normal </= 3.0 after 30 weeks) The fetus is in breech | | | presentation. Placenta position: Fundal Estimated | | | gestational age: 34 weeks 2 days by LMP. Cervical length = | | | 3.6 cm. IMPRESSION - Biophysical profile score for twin A a | | | 8/8. Biophysical profile score for twin B 06/13. The preliminary | | | findings were conveyed to the ordering provider, by the hardness inspector, | | | immediately following the exam. Dictated and Signed by: Luke Crockett | | MD Gentry Electronically signed: 01/08/2018 3:37 PM | | + + + + + | Procedure Note | + + | Ruben, Rad Results In - 01/08/2018 3:40 PM [facility] US BIOPHYSICAL PROFILE TWINS WO | | NON STRESS dated 01/08/2018 1:25 PM.TWIN A:Biophysical Profile:Tone: 2/2Motion (Three | | gross body movements): 2/2Breathin/2Fluid volume: 2/2 (the fifth = 2.7 cm) Total: | | 06/13 heart rate is 154 bpm.SD ratio: 3.2-3.9 (normal </= 3.0 after 30 weeks)The | | fetus is in cephalic presentation. Placenta position: Anterior Estimated gestational | | age: 34 weeks 2 days by LMP.TWIN B:Biophysical Profile:Tone: 2/2Motion (Three gross | | body movements): 2/2Breathin/2Fluid volume: 2/2 (deepest pocket = 3.6 cm)Total: 06/13 | | heart rate is 136 bpm.SD ratio: 2.8-3.5 (normal </= 3.0 after 30 weeks)The fetus | | is in breech presentation. Placenta position: Fundal Estimated gestational age: 34 | | weeks 2 days by LMP.Cervical length = 3.6 cm.IMPRESSION - Biophysical profile score for | | twin A a 06/13.Biophysical profile score for twin B 06/13.The preliminary findings were | | conveyed to the ordering provider, by thesonographer, immediately following the | | exam.Dictated and Signed by: Luke Rinaldi MD Electronically signed: 01/08/2018 3:37 | | PM | |SD ratio: 3.2-3.9 (normal </= 3.0 after 30 weeks) | | | |The fetus is in cephalic presentation. | | | |Placenta position: Anterior | | | |Estimated gestational age: 34 weeks 2 days by LMP. | | | | | |TWIN B: | | | |Biophysical Profile: | |Tone: 2/2 | |Motion (Three gross body movements): 2/2 | |Breathin/2 | |Fluid volume: 2/2 (deepest pocket = 3.6 cm) | | | |Total: 06/13 | | | | heart rate is 136 bpm. | | | |SD ratio: 2.8-3.5 (normal </= 3.0 after 30 weeks) | | | |The fetus is in breech presentation. | | | |Placenta position: Fundal | | | |Estimated gestational age: 34 weeks 2 days by LMP. | | | | | |Cervical length = 3.6 cm. | | | |IMPRESSION - | | | |Biophysical profile score for twin A a 06/13. | | | |Biophysical profile score for twin B 06/13. | | | |The preliminary findings were conveyed to the ordering provider, by the | |hardness inspector, immediately following the exam. | | | |Dictated and Signed by: Luke T Buratto, MD | | Electronically signed: 01/08/2018 3:37 PM | + + + +---------+ + + | Performing | Address | City/State/Zipcode | Phone Number | | Organization | | | | + +---------+ + + | [facility] | | | | + +---------+ + + US OB Follow Up Twins (01/08/2018 9:25 AM PST) + + | Specimen | + + | | + + + +-------- -------+ | Narrative | Perform ed At | + +-------- -------+ | TECHNIQUE: | [facility] | | Routine transabdominal imaging of the uterus. CLINICAL INFORMATION: US | | | OB Follow Up Twins. COMPARISON: 11/20/2017. FINDINGS:Intrauterine | | | gestation(s): TwinCervix: Not well visualized. MEASUREMENTS AND | | | ANATOMIC SURVEY:Fetus A: LeftFetal presentation: Cephalic. Placenta | | | location: Anterior with scattered echogenic foci consistent | | | withcalcifications.Biparietal diameter: 8.32 cm, corresponding to 33 | | | weeks 3 days.Head circumference: 29.71 cm, corresponding to 32 weeks 6 | | | days.Abdominal circumference: 28.81 cm, corresponding to 32 weeks 6 | | | days.Femur length: 6.52 cm, corresponding to 33 weeks 4 days. | | | heart rate: 145 bpmCephalic index: 80.5%, normal. HC/AC ratio: 1.03, | | | normal. Amniotic fluid: 9.92 cm.Estimated weight: 2122 grams, | | | 26th percentile.Estimated gestational age by ultrasound is 33 weeks 1 | | | day and by last menstrualperiod is 34 weeks 2 days. Fetus B: | | | RightFetal presentation: Breech. Placenta location: Posterior. | | | Echogenic foci are noted within the placentaposition | | | calcifications.Biparietal diameter: 7.87 cm, corresponding to 31 weeks | | | 4 days.Head circumference: 28.74 cm, corresponding to 31 weeks 4 | | | days.Abdominal circumference: 26.69 cm, corresponding to 30 weeks 6 | | | days.Femur length: 5.82 cm, corresponding to 30 weeks 3 days. | | | heart rate: 139 bpmCephalic index: 78%, normal. HC/AC ratio: 1.08, | | | normal. Amniotic fluid: 8.4 cmEstimated weight: 1646 grams, | | | less than 10th percentile.Estimated gestational age by ultrasound is | | | 31 weeks 1 day and by last menstrualperiod is 34 weeks 2 days. | | | IMPRESSION - 1. Concordant dating for fetus A.2. Discordant | | | dating for fetus B with estimated weight less than the | | | 10thpercentile. Dictated and Signed by: Tyshawn Newton MD | | | Electronically signed: 01/08/2018 2:27 PM | | |Fetus B: Right | | | presentation: Breech. | | |Placenta location: Posterior. Echogenic foci are noted within the placenta | | |position calcifications. | | |Biparietal diameter: 7.87 cm, corresponding to 31 weeks 4 days. | | |Head circumference: 28.74 cm, corresponding to 31 weeks 4 days. | | |Abdominal circumference: 26.69 cm, corresponding to 30 weeks 6 days. | | |Femur length: 5.82 cm, corresponding to 30 weeks 3 days. | | | heart rate: 139 bpm | | |Cephalic index: 78%, normal. | | |HC/AC ratio: 1.08, normal. | | |Amniotic fluid: 8.4 cm | | |Estimated weight: 1646 grams, less than 10th percentile. | | |Estimated gestational age by ultrasound is 31 weeks 1 day and by last menstrual | | |period is 34 weeks 2 days. | | | | | | | | |IMPRESSION - | | |1. Concordant dating for fetus A. | | |2. Discordant dating for fetus B with estimated weight less than the 10th | | |percentile. | | | | | | | | | | | |Dictated and Signed by: Tyshawn Newton MD | | | Electronically signed: 01/08/2018 2:27 PM | | | | | + +-------- -------+ + + | Procedure Note | + + | Ruben, Rad Results In - 01/08/2018 2:30 PM PST TECHNIQUE: Routine transabdominal | | imaging of the uterus.CLINICAL INFORMATION: US OB Follow Up Twins.COMPARISON: | | 11/20/2017.FINDINGS:Intrauterine gestation(s): TwinCervix: Not well | | visualized.MEASUREMENTS AND ANATOMIC SURVEY:Fetus A: LeftFetal presentation: Cephalic. | | Placenta location: Anterior with scattered echogenic foci consistent | | withcalcifications.Biparietal diameter: 8.32 cm, corresponding to 33 weeks 3 days.Head | | circumference: 29.71 cm, corresponding to 32 weeks 6 days.Abdominal circumference: 28.81 | | cm, corresponding to 32 weeks 6 days.Femur length: 6.52 cm, corresponding to 33 weeks 4 | | days. heart rate: 145 bpmCephalic index: 80.5%, normal. HC/AC ratio: 1.03, normal. | | Amniotic fluid: 9.92 cm.Estimated weight: 2122 grams, 26th percentile.Estimated | | gestational age by ultrasound is 33 weeks 1 day and by last menstrualperiod is 34 weeks | | 2 days. Fetus B: RightFetal presentation: Breech. Placenta location: Posterior. | | Echogenic foci are noted within the placentaposition calcifications.Biparietal diameter: | | 7.87 cm, corresponding to 31 weeks 4 days.Head circumference: 28.74 cm, corresponding | | to 31 weeks 4 days.Abdominal circumference: 26.69 cm, corresponding to 30 weeks 6 | | days.Femur length: 5.82 cm, corresponding to 30 weeks 3 days. heart rate: 139 | | bpmCephalic index: 78%, normal. HC/AC ratio: 1.08, normal. Amniotic fluid: 8.4 | | cmEstimated weight: 1646 grams, less than 10th percentile.Estimated gestational | | age by ultrasound is 31 weeks 1 day and by last menstrualperiod is 34 weeks 2 days. | | IMPRESSION - 1. Concordant dating for fetus A.2. Discordant dating for fetus B with | | estimated weight less than the 10thpercentile. Dictated and Signed by: Tyshawn | | MD Aman Electronically signed: 01/08/2018 2:27 PM | |Amniotic fluid: 9.92 cm. | |Estimated weight: 2122 grams, 26th percentile. | |Estimated gestational age by ultrasound is 33 weeks 1 day and by last menstrual | |period is 34 weeks 2 days. | | | | | |Fetus B: Right | | presentation: Breech. | |Placenta location: Posterior. Echogenic foci are noted within the placenta | |position calcifications. | |Biparietal diameter: 7.87 cm, corresponding to 31 weeks 4 days. | |Head circumference: 28.74 cm, corresponding to 31 weeks 4 days. | |Abdominal circumference: 26.69 cm, corresponding to 30 weeks 6 days. | |Femur length: 5.82 cm, corresponding to 30 weeks 3 days. | | heart rate: 139 bpm | |Cephalic index: 78%, normal. | |HC/AC ratio: 1.08, normal. | |Amniotic fluid: 8.4 cm | |Estimated weight: 1646 grams, less than 10th percentile. | |Estimated gestational age by ultrasound is 31 weeks 1 day and by last menstrual | |period is 34 weeks 2 days. | | | | | |IMPRESSION - | |1. Concordant dating for fetus A. | |2. Discordant dating for fetus B with estimated weight less than the 10th | |percentile. | | | | | | | |Dictated and Signed by: Tyshawn Newton MD | | Electronically signed: 01/08/2018 2:27 PM | + + + +---------+ + + | Performing | Address | City/State/Zipcode | Phone Number | | Organization | | | | + +---------+ + + | [facility] | | | | + +---------+ + + documented in this encounter Visit Diagnoses + + | Diagnosis | + + | Twin gestation in third trimester, unspecified multiple gestation type | + + documented in this encounter Administered Medications + +--------+ +-------+------+ + | Medication Order | MAR | Action | Dose | Rate | Site | | | Action | Date | | | | + +--------+ +-------+------+ + | betamethasone (CELESTONE | Given | 01/09/20 | 12 mg | | Glut-Rig | | SOLUSPAN) injection 12 mg 12 mg, | | 18 11:59 | | | ht | | Intramuscular, EVERY 24 HOURS | | AM PST | | | | | INTERVAL, First dose on Mon | | | | | | | 01/08/18 at 1200, For 2 doses, | | | | | | | Shake well. Not for IV use., | | | | | | + +--------+ +-------+------+ + +---+---+ | | | +---+---+ documented in this encounter
--- OUTSIDE RECORDS SUMMARY | ~2020-03-13 | XMS | Encounter Summary ---
Demographics + + + | Address | [address] | | | [place] [address] | + + + | Home Phone [...] Team Providers + +------+ + | Care Baseball Inspector And Repairer Name | Role | Phone | + +------+ + | Burton Masters MD | PCP | | + +------+ + Reason for Visit + + + | Reason | Comments | + + + | ED Follow-up | | + + + Encounter Details +--------+ + + + + | Date | Type | Department | Care Team | Description | +--------+ + + + + | 12/27/ | Telephone | [facility] | Burton Masters Matthias, | ED Follow-up | | 2019 | | [facility] [place] | [address] | | | | | [address] | [place] | | | | | [place] | [address] | | | | | [address] | | | | | | [phone] | | | +--------+ + + + [...] [place] | | | | | | [address] | | | | | | | | +--------+ + + + + | 03/18/ | Office | Physical Medicine | Jovana Dawson | | | 2019 | Visit | and Rehabilitation | MELANY Man [address] | | | | | | [address] | | | | | | [place] | | | | | | [address] | | | | | | | | +--------+ + + + + | 04/01/ | Appointment | Oncology | Deny Mcmanus, | | | 2019 | | | MD [address] | | | | | | [place] | | | | | | [place] [address] | | | | | | [phone] | | | | | | | | +--------+ + + + + | 04/08/ | Procedure | Physical Medicine | Leonard De Leon | | | 2019 | visit | and Rehabilitation | MD Audelia [address] | | | | | | [place] | | | | | | [address] | | | | | | | | +--------+ + + + + | 04/30/ | Office | Cardiology | Shad Saaverda, | | | 2019 | Visit | | MD [address] | | | | | | [place], | | | | | | [place] [address] | | | | | | [phone] | | | | | | | | +--------+ + + + + documented as of this encounter Visit Diagnoses Not on filedocumented in this encounter"
--- OUTSIDE RECORDS SUMMARY | ~2020-03-13 | XMS | Encounter Summary ---
Demographics + + + | Address | [address] | | | [place] [address] | + + + | Home Phone | | + + + | Preferred Language | Unknown | + + + | Marital Status | Single | + + + | Druze Affiliation | NON | + + + | Race | White | + + + | Ethnic Group | Not or | + + + Author + + + | Author | [facility] | + + + | Organization | [facility] | + + + | [...] Providers + +------+ + | Care Event Planning Intern Name | Role | Phone | + +------+ + | Burton Masters MD | PCP | | + +------+ + Encounter Details +--------+ + + + + | Date | Type | Department | Care Team | Description | +--------+ + + + + | 04/16/ | Outside | UNKNOWN DEPARTMENT | Other, Faculty | | | 2019 | Records | [address] | [phone] | | | | | [address] | | | | | | [place], [place] | | | | | | [address] | | | +--------+ + + + [...] Arce | | | | | | [place], [place] | | | | | | [address] | | | | | | [phone] | | | | | | | | +--------+---------+ + + + documented as of this encounter Procedures + +--------+ + + + | Procedure Name | Priori | Date/Time | Associated Diagnosis | Comments | | | ty | | | | + +--------+ + + + | OUTSIDE RADIOLOGY - | | 04/16/2019 | | Results for this | | ULTRASOUND | | 12:00 AM | | procedure are in the | | | | PDT | | results section. | + +--------+ + + + | OUTSIDE RADIOLOGY - | | 04/16/2019 | | Results for this | | X-RAY | | 12:00 AM | | procedure are in the | | | | PDT | | results section. | + +--------+ + + + documented in this encounter Results OUTSIDE RADIOLOGY - ULTRASOUND (04/16/2019 12:00 AM PDT) + + + | Narrative | Performed At | + + + | | | + + + OUTSIDE RADIOLOGY - X-RAY (04/16/2019 12:00 AM PDT) + + + | Narrative | Performed At | + + + | | | + + + documented in this encounter Visit Diagnoses Not on filedocumented in this encounter"
--- OUTSIDE RECORDS SUMMARY | ~2020-03-13 | XMS | Encounter Summary ---
Demographics + + + | Address | [address] | | | [place] [address] | + + + | Home Phone | | + + + | Preferred Language | Unknown | + + + | Marital Status | | + + + | Congregation Affiliation | Unknown | + + + | Race | Unknown | + + + | Ethnic Group | Unknown | + + + Author + + + | Author | [facility] | | | and [place] | + + + | Organization | [facility] | | | and [...] Team Providers + +------+ + | Care Deputy Commonwealth'S Attorney Name | Role | Phone | + +------+ + | Burton Masters MD | PCP | | + +------+ + Reason for Visit + + + | Reason | Comments | + + + | Paperwork | Disability Paperwork | + + + Encounter Details +--------+ + + + + | Date | Type | Department | Care Team | Description | +--------+ + + + + | 10/29/ | Telephone | [facility] | Burton Masters, | Paperwork | | 2019 | | [facility] [place] | [address] | (Disability | | | | [address] | [place] | Paperwork) | | | | [place] | [address] | | | | | [address] | | | | | | [phone] | | | +--------+ + + + [...] [place] | | | | | | [address] | | | | | | | | +--------+ + + + + | 03/18/ | Office | Physical Medicine | Jovana Dawson | | | 2019 | Visit | and Rehabilitation | MEL[address] Man [address] | | | | | | [address] [facility] | | | | | | [address] [place] | | | | | | [address] | | | | | | | | +--------+ + + + + | 04/01/ | Appointment | Oncology | Deny Mcmanus, | | 2019 | | | [address] | | | | | | [address] [place], | | | | | | [place] [address] | | | | | | [phone] | | | | | | | | +--------+ + + + + | 04/08/ | Procedure | Physical Medicine | Leonard De Leon | | | 2019 | visit | and Rehabilitation | MD [address] | | | | | | [facility] [place] | | | | | | [address] | | | | | | | | +--------+ + + + + | 04/30/ | Office | Cardiology | Shad Saavedra, | | | 2019 | Visit | | MD [address] | | | | | | [place], | | | | | | [place] [address] | | | | | | [phone] | | | | | | | | +--------+ + + + + documented as of this encounter Visit Diagnoses Not on filedocumented in this encounter"
--- OUTSIDE RECORDS SUMMARY | ~2020-03-13 | XMS | Encounter Summary ---
Demographics + + + | Address | [address] | | | [place] [address] | + + + | Home Phone | | + + + | Preferred Language | Unknown | + + + | Marital Status | | + + + | Hinduism Affiliation | Unknown | + + + | Race | Unknown | + + + | Ethnic Group | Unknown | + + + Author + + + | Author | [facility] | | | and [place] | + + + | Organization | [facility] | | [...] Team Providers + +------+ + | Care Chute Feeder Name | Role | Phone | [...] Description | +--------+--------+ + + + | 01/21/ | Refill | [facility] | Burton Masters, | Medication Refill | | 2020 | | [facility] [place] | [address] | | | | | [address] | [place] | | | | | [place] | [address] | | | | | [address] | | | | | | [phone] | | | +--------+--------+ + + + [...] [place] | | | | | | [address] | | | | | | | | +--------+ + + + + | 03/18/ | Office | Physical Medicine | Jovana Dawson | | | 2019 | Visit | and Rehabilitation | MELANY Man [address] | | | | | | [address] [facility] | | | | | | [address] [place] | | | | | | [address] | | | | | | | | +--------+ + + + + | 04/01/ | Appointment | Oncology | Deny Mcmanus, | | | 2019 | | | MD [address] | | | | | | [place] | | | | | | [place] [address] | | | | | | [phone] | | | | | | | | +--------+ + + + + | 04/08/ | Procedure | Physical Medicine | Leonard De Leon | | | 2019 | visit | and Rehabilitation | MD [address] | | | | | | [place] | | | | | | [address] | | | | | | | | +--------+ + + + + | 04/30/ | Office | Cardiology | Shad Saavedra, | | | 2019 | Visit | | MD [address] | | | | | | [place], | | | | | | [place] [address] | | | | | | [phone] | | | | | | | | +--------+ + + + + documented as of this encounter Visit Diagnoses Not on filedocumented in this encounter"
--- OUTSIDE RECORDS SUMMARY | ~2020-03-13 | XMS | Encounter Summary ---
Demographics + + + | Address | [address] | | | [place] [address] | + + + | Home Phone [...] + | Author | [facility] | | | and [place] | + + + | Organization | [facility] | | | and [...] Team Providers + +------+ + | Care Guide Escort Name | Role | Phone | + +------+ + | Burton Masters MD | PCP | | + +------+ + Reason for Visit + + + | Reason | Comments | + + + | ED Follow-up | | + + + | Emesis | | + + + | Diarrhea | | + + + | Medication | discuss medication | | Management | | + + + Encounter Details +--------+---------+ + + + | Date | Type | Department | Care Team | Description | +--------+---------+ + + + | 05/01/ | Office | [facility] | Burton Masters, | Chronic myeloid | | 2019 | Visit | [facility] [place] | [address] | leukemia (HCC) | | | | [address] | [place], [place] | (Primary Dx); Weight | | | | [place], [place] | [address] | loss; Diarrhea, | | | | [address] | | unspecified type | | | | [phone] | | | +--------+---------+ + + + [...] + + + | Blood Pressure | 136/96 | 05/01/2019 9:42 AM | | | | | PDT | | + + + + + | Pulse | 100 | 05/01/2019 9:42 AM | | | | | PDT | | + + + + + | Temperature | 37.2 C (99 F) | 05/01/2019 9:42 AM | | | | | PDT | | + + + + + | Respiratory Rate | 18 | 05/01/2019 9:42 AM | | | | | PDT | | + + + + + | Oxygen Saturation | 100% | 05/01/2019 9:42 AM | | | | | PDT | | + + + + + | Inhaled Oxygen | - | - | | | Concentration | | | | + + + + + | Weight | 78 kg (171 lb 15.3 | 05/01/2019 9:42 AM | | | | oz) | PDT | | + + + + + | Height | - | - | | + + + + + | Body Mass Index | 26.15 | 04/26/2019 11:45 AM | | | | | PDT | | + + + + + documented in this encounter Progress Notes Burton Masters MD - 05/01/2019 10:00 AM PDTFormatting of this note might be different f rom the original. Subjective: Patient ID: Ashley Webb is a 34 y.o. female. Chief Complaint Patient presents with ED Follow-up Emesis Diarrhea Medication Management discuss medication Emesis This is a new problem. The current episode started 1 to 4 weeks ago. The problem occurs terry ly. The problem has been waxing and waning. Associated symptoms include nausea and vomiting. Pertinent negatives include no abdominal pain. Associated symptoms comments: Diarrhea . The symptoms are aggravated by eating. Treatments tried: zofran, others on current med li st. The treatment provided no relief. Diarrhea This is a new problem. The current episode started 1 to 4 weeks ago. The problem occurs 2 t o 4 times per day. The problem has been waxing and waning. Associated symptoms include vomit ing. Pertinent negatives include no abdominal pain or bloating. Risk factors: patient taking sprycel. Treatments tried: immodium, lomotil. The treatment provided no relief. 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 Negative for abdominal pain a nd bloating. . Objective: BP (!) 136/96 | Pulse 100 | Temp 37.2 C (99 F) (Temporal) | Resp 18 | Wt 78 kg (171 lb 15.3 oz) | LMP 04/15/2019 | SpO2 100% | ? No | BMI 26.15 kg/m Physical Exam Constitutional: She is well-developed, [...] diaphoretic. Psychiatric: Affect normal. Assessment/Plan: 1. Chronic myeloid leukemia (HCC) Culture, Stool Clostridium difficile A and B EIA 2. Weight loss Culture, Stool Clostridium difficile A and B EIA 3. Diarrhea, unspecified type Culture, Stool Clostridium difficile A and B EIA Due to potential drug interaction will d/c vicodin and take oxycodone. Requested Prescriptions Signed Prescriptions Disp Refills oxyCODONE (ROXICODONE) 5 mg tablet 90 tablet 0 Sig: Take 1 tablet by mouth every 8 hours as needed for Pain. New Prescriptions OXYCODONE (ROXICODONE) 5 MG TABLET Take 1 tablet by mouth every 8 hours as needed for P ain. documented in this encounter Plan of Treatment +--------+ + + + + | Date | Type | Specialty | Care Team | Description | +--------+ + + + + | 03/17/ | Virtual | Neurosurgery | Zuhair Flores | | | 2019 | Office | | MD Josel[address] | | | | Visit | | [place] [address] | | | | | | [place] | | | | | | [address] | | | | | | | | +--------+ + + + + | 03/18/ | Office | Physical Medicine | Jovana Dawson | | | 2019 | Visit | and Rehabilitation | MELANY Man [address] | | | | | | [address] [facility] | | | | | | [place] | | | | | | [address] | | | | | | | | +--------+ + + + + | 04/01/ | Appointment | Oncology | Deny Mcmanus, | | | 2019 | | | [address] | | | | | | [place] | | | | | | [place] [address] | | | | | | [phone] | | | | | | | | +--------+ + + + + | 04/08/ | Procedure | Physical Medicine | Leonard De Leon | | | 2019 | visit | and Rehabilitation | MD Audelia [address] | | | | | | [place] | | | | | | [address] | | | | | | | | +--------+ + + + + | 04/30/ | Office | Cardiology | Keri Elvavinicius, | | | 2019 | Visit | | [address] | | | | | | [place], | | | | | | [place] [address] | | | | | | [phone] | | | | | | | | +--------+ + + + + + + +--------+ + + | Name | Type | Priori | Associated Diagnoses | Order Schedule | | | | ty | | | + + +--------+ + + | Culture, Stool | Microbiolog | Routin | Chronic myeloid | Expected: | | | y | e | leukemia (HCC) | 05/01/2019, Expires: | | | | | Weight loss | 05/01/2020 | | | | | Diarrhea, | | | | | | unspecified type | | + + +--------+ + + | Clostridium | Microbiolog | Routin | Diarrhea, | Expected: | | difficile A and B | y | e | unspecified type | 05/01/2019, Expires: | | EIA | | | | 05/01/2020 | + + +--------+ + + documented as of this encounter Visit Diagnoses + + | Diagnosis | + + | Chronic myeloid leukemia (HCC) - Primary Chronic myeloid leukemia, without mention of | | having achieved remission | + + | Weight loss Loss of weight | + + | Diarrhea, unspecified type | + + documented in this encounter"
--- OUTSIDE RECORDS SUMMARY | ~2020-03-13 | XMS | Encounter Summary ---
Demographics + + + | Address | [address] | | | [place] [address] | + + + | Home Phone | | + + + | Preferred Language | Unknown | + + + | Marital Status | | + + + | Adventism Affiliation | Unknown | + + + [...] Team Providers + +------+ + | Care Camera Tuning Engineer Name | Role | Phone | + +------+ + | Burton Masters MD | PCP | | + +------+ + Reason for Visit + + + | Reason | Comments | + + + | Immunizations | PPSV23 | + + + | Medication | | | Management | | + + + Encounter Details +--------+---------+ + + + | Date | Type | Department | Care Team | Description | +--------+---------+ + + + | 03/13/ | Office | [facility] | Burton Masters Matthias, | Labile mood (Primary | | 2019 | Visit | [facility] [place] | [address] | Dx); Need for | | | | [address] | [place] | 23-polyvalent | | | | [place] | [address] | pneumococcal | | | | [address] | | polysaccharide | | | | [phone] | | vaccine | +--------+---------+ + + + Social History [...] + + + | Blood Pressure | 116/68 | 03/13/2019 1:13 PM | | | | | PDT | | + + + + + | Pulse | 88 | 03/13/2019 1:13 PM | | | | | PDT | | + + + + + | Temperature | 37.6 C (99.6 F) | 03/13/2019 1:13 PM | | | | | PDT | | + + + + + | Respiratory Rate | 16 | 03/13/2019 1:13 PM | | | | | PDT | | + + + + + | Oxygen Saturation | 98% | 03/13/2019 1:13 PM | | | | | PDT | | + + + + + | Inhaled Oxygen | - | - | | | Concentration | | | | + + + + + | Weight | 78 kg (172 lb) | 03/13/2019 1:13 PM | | | | | PDT | | + + + + + | Height | - | - | | + + + + + | Body Mass Index | 26.15 | 03/05/2019 6:24 PM | | | | | PDT | | + + + + + documented in this encounter Progress Notes Burton Masters MD - 03/13/2019 1:15 PM PDTFormatting of this note might be different f rom the original. Subjective: Patient ID: Ashley Webb is a 34 y.o. female. Chief Complaint Patient presents with Immunizations PPSV23 Medication Management Mental Health Problem Primary symptoms comment: irritability and mood lability much improved. The degree of incapacity that she is experiencing as a consequence of her illness is modera te. 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 Drug use: No Sexual activity: Yes Social History Narrative Merged History Encounter Review of Systems Constitutional: Negative. HENT: Negative. Eyes: Negative. Respiratory: Negative. Cardiovascular: Negative. Gastrointestinal: Negative. Genitourinary: Negative. Musculoskeletal: Negative. Skin: Negative. Neurological: Negative. Endo/Heme/Allergies: Negative. Psychiatric/Behavioral: Negative. . Objective: BP 116/68 | Pulse 88 | Temp 37.6 C (99.6 F) (Temporal) | Resp 16 | Wt 78 kg (172 lb ) | SpO2 98% | ? No | BMI 26.15 kg/m [...] not diaphoretic. Psychiatric: Affect normal. Assessment/Plan: 1. Labile mood 2. Need for 23-polyvalent pneumococcal polysaccharide vaccine Pneumococcal polysaccharide vaccine 23-valent greater than or equal to 2yo subcutaneous/IM [72864] Over 15 min spent in face to face time with this patient today. Over 50% of time counselin g and coordinating care for immunization discussion. documented in this encounter Plan of Treatment [...] [place] | | | | | | [address] | | | | | | | | +--------+ + + + + | 03/18/ | Office | Physical Medicine | Jovana Dawson | | | 2019 | Visit | and Rehabilitation | MELANY Man [address] | | | | | | [address] | | | | | | [place] | | | | | | [address] | | | | | | | | +--------+ + + + + | 04/01/ | Appointment | Oncology | Deny Mcmanus, | | 2019 | | | MD [address] | | | | | | [place] | | | | | | [place] [address] | | | | | | [phone] | | | | | | | | +--------+ + + + + | 04/08/ | Procedure | Physical Medicine | Leonard De Leon | | | 2019 | visit | and Rehabilitation | MD Kiki Win | | | | | | [place] | | | | | | [address] | | | | | | | | +--------+ + + + + | 04/30/ | Office | Cardiology | Shad Saavedra, | | | 2019 | Visit | | [address] | | | | | | [place], | | | | | | [place] [address] | | | | | | [phone] | | | | | | | | +--------+ + + + + documented as of this encounter Visit Diagnoses + + | Diagnosis | + + | Labile mood - Primary | + + | Need for 23-polyvalent pneumococcal polysaccharide vaccine | + + documented in this encounter"
--- OUTSIDE RECORDS SUMMARY | ~2020-03-13 | XMS | Encounter Summary ---
Demographics + + + | Address | [address] [address] | | | [place] [address] | + + + | Home Phone | | + + + | Preferred Language | Unknown | + + + | Marital Status | | + + + | Restoration Affiliation | Unknown | + + + | Race | Unknown | + + + | Ethnic Group | Unknown | + + + Author + + + | Author | [facility] | | | and [place] | + + + | Organization | [facility] | | | [...] Team Providers + +------+ + | Care Tire Servicer Name | Role | Phone | + +------+ + | Burton Masters MD | PCP | | + +------+ + Encounter Details +--------+ + + + + | Date | Type | Department | Care Team | Description | +--------+ + + + + | 01/11/ | Hospital | [facility] | Dorota Beal | | | 2018 | Encounter | [facility] | DO [address] | | | | | [address] | [address] | | | | | [place] | [place] [address] | | | | | [address] | [phone] | | | | | [phone] | | | +--------+ + + + [...] + documented as of this encounter Discharge Instructions Instructions Genesis Jimenez RN - 01/11/2018Discharge Education for the Undelivered Patie nt You [...] [place] | | | | | | [address] | | | | | | | | +--------+ + + + + | 03/18/ | Office | Physical Medicine | Jovana Dawson | | | 2019 | Visit | and Rehabilitation | MELANY Man [address] | | | | | | [address] | | | | | | [place] | | | | | | [address] | | | | | | | | +--------+ + + + + | 04/01/ | Appointment | Oncology | Deny Mcmanus, | | 2019 | | | MD [address] | | | | | | [place] | | | | | | [place] [address] | | | | | | [phone] | | | | | | | | +--------+ + + + + | 04/08/ | Procedure | Physical Medicine | Leonard De Leon | | 2019 | visit | and Rehabilitation | MD Kiki Win | | | | | | [place] | | | | | | [address] | | | | | | | | +--------+ + + + + | 04/30/ | Office | Cardiology | Shad Saavedra, | | | 2019 | Visit | | MD [address] | | | | | | [place] | | | | | | [place] [address] | | | | | | [phone] | | | | | | | | +--------+ + + + + documented as of this encounter Visit Diagnoses Not on filedocumented in this encounter"
--- OUTSIDE RECORDS SUMMARY | ~2020-03-13 | XMS | Encounter Summary ---
Demographics + + + | Address | [address] | | | [place] [address] | + + + | Home Phone | | + + + | Preferred Language | Unknown | + + + | Marital Status | Single | + + + | Denominational Affiliation | NON | + + + | Race | White | + + + | Ethnic Group | Not or | + + + Author + + + | Author | [facility] | + + + | Organization | [facility] | + + + | Address | [...] Team Providers + +------+ + | Care Rolling Mill Plugger Name | Role | Phone | + +------+ + PCP | Unavailable | + +------+ + Encounter Details +--------+ + + + + | Date | Type | Department | Care Team | Description | +--------+ + + + + | 07/01/ | Results | NON[facility] | Kalli, | | | 2009 | Only | Department | MD Junior Gracia | | | | | | [facility] | | | | | | [address] | | | | | | [address] | | | | | | [place], [place] | | | | | | [address] | | | | | | | [...] | Visit | Malignancy | MD [address] | | | | | | [place], [place] | | | | | | [address] | | | | | | [phone] | | | | | | | | +--------+---------+ + + + documented as of this encounter Procedures + +--------+ + + + | Procedure Name | Priori | Date/Time | Associated Diagnosis | Comments | | | ty | | | | + +--------+ + + + | DERMATOPATHOLOGY(WET | Routin | 07/01/2010 | | Results for this | | [facility]) | e | | | procedure are in the | | | | | | results section. | + +--------+ + + + documented in this encounter Results DERMATOPATHOLOGY(WET [facility]) (07/01/2010) + + + + + + | Component | Value | Ref Range | Performed | Pathologist | | | | | At | Signature | + + + + + + | DERMATOPATH | SOURCE OF SPECIMEN:A | | [facility] | | | OLOGY(WET | FIRST TISSUE LEVEL IV | | DERMATOPATH | | | MNT) | [address] [facility] | | OLOGY | | | | DESCRIPTION:Punch, 6mm, | | | | | | lt. hip; R/O | | | | | | atypical/malignancy. | | | | | | GROSS | | | | | | DESCRIPTION:Left hip. | | | | | | The specimen is | | | | | | received in formalin, | | | | | | labeled left hip, with | | | | | | thepatient's name and | | | | | | consists of a dark cole, | | | | | | punch biopsy measuring | | | | | | 0.6 x 0.5cm. The | | | | | | specimen is bisected and | | | | | | entirely submitted in | | | | | | one cassette. | | | | | | MICROSCOPIC | | | | | | DESCRIPTION:There is a | | | | | | small to moderately | | | | | | broad, symmetrical and | | | | | | well | | | | | | circumscribedmelanocytic | | | | | | neoplasm characterized | | | | | | by small nests and | | | | | | single melanocytesalong | | | | | | the basal layer of | | | | | | hyperplastic and | | | | | | hyperpigmented rete | | | | | | ridges. Themelanin | | | | | | pigment extends | | | | | | throughout the | | | | | | epidermis, including the | | | | | | stratumcorneum. There | | | | | | are round to oval nests | | | | | | of similar appearing | | | | | | melanocytes inthe | | | | | | thickened, fibrotic, and | | | | | | inflamed papillary | | | | | | dermis. | | | | | | DIAGNOSIS:MELANOCYTIC | | | | | | NEVUS, COMPOUND TYPE. | | | | | | NOTE: The nevus | | | | | | extends to the surgical | | | | | | margins of the punch | | | | | | specimen. | | | | | | CRW:dlb07/06/10 My | | | | | | electronic signature | | | | | | indicates that I have | | | | | | personally reviewed | | | | | | alldiagnostic slides, | | | | | | the gross and/or | | | | | | microscopic portion of | | | | | | thisreport and | | | | | | formulated the final | | | | | | diagnosis. | | | | | | Rendering Diagnostician: | | | | | | Brandon Farr Jr., | | | | | | | | | | | | MTerrellPathologistElectroni | | | | | | kaleb Signed 07/06/2010 | | | | + + + + + + + + | Specimen | + + | | + + + + + + + | Performing | Address | City/State/Zipcode | Phone Number | | Organization | | | | + + + + + | [facility] | [address] | [place] [address] | | | DERMATOPATHOLOGY | [address] | | | + + + + + documented in this encounter Visit Diagnoses Not on filedocumented in this encounter"
--- OUTSIDE RECORDS SUMMARY | ~2020-03-13 | XMS | Encounter Summary ---
Demographics + + + | Address | [address] | | | [place] [address] | + + + | Home Phone | | + + + | Preferred Language | Unknown | + + + | Marital Status | | + + + | Oriental Orthodox Affiliation | Unknown | + + + | Race | Unknown | + + + | Ethnic Group | Unknown | + + + Author + + + | Author | [facility] | | | and [place] | + + + | Organization | [facility] | | | [...] Team Providers + +------+ + | Care Family Day Care Provider Name | Role | Phone | + +------+ + | Burton Masters MD | PCP | | + +------+ + Reason for Visit + + + | Reason | Comments | + + + | Sinus Pain | | + + + | Cough | | + + + | Fever | | + + + Encounter Details +--------+ + + + + | Date | Type | Department | Care Team | Description | +--------+ + + + + | 02/16/ | Telephone | [facility] | Burton Masters, | Sinus Pain; Cough; | | 2017 | | [facility] [place] | [address] | Fever | | | | [address] | [place], [place] | | | | | [place], [place] | [address] | | | | | [address] | | | | | | [phone] | | | +--------+ + + + [...] [place] | | | | | | [address] | | | | | | | | +--------+ + + + + | 03/18/ | Office | Physical Medicine | Jovana Dawson | | | 2019 | Visit | and Rehabilitation | MELANY Man [address] | | | | | | [address] [facility] | | | | | | [address] [place] | | | | | | [address] | | | | | | | | +--------+ + + + + | 04/01/ | Appointment | Oncology | Deny Mcmanus, | | 2019 | | | [address] | | | | | | [address] [place], | | | | | | [place] [address] | | | | | | [phone] | | | | | | | | +--------+ + + + + | 04/08/ | Procedure | Physical Medicine | Leonard De Leon | | | 2019 | visit | and Rehabilitation | MD Kiki Win | | | | | | [place] | | | | | | [address] | | | | | | | | +--------+ + + + + | 04/30/ | Office | Cardiology | Shad Saavedra, | | | 2019 | Visit | | MD [address] | | | | | | [place], | | | | | | [place] [address] | | | | | | [phone] | | | | | | | | +--------+ + + + + documented as of this encounter Visit Diagnoses Not on filedocumented in this encounter"
--- OUTSIDE RECORDS SUMMARY | ~2020-03-13 | XMS | Encounter Summary ---
Demographics + + + | Address | [address] | | | [place] [address] | + + + | Home Phone [...] Team Providers + +------+ + | Care Zoo Keeper Name | Role | Phone | + +------+ + | Burton Masters MD | PCP | | + +------+ + Encounter Details +--------+ + + + + | Date | Type | Department | Care Team | Description | +--------+ + + + + | 01/11/ | Orders Only | [facility] | [place] | Chronic myeloid | | 2019 | | [facility] | J, PharmD [address] | leukemia, | | | | [facility]COLOGY CLINIC [address] | [address] | BCR/ABL-positive, | | | | [address] | [place] [address] | not having achieved | | | | [place] [address] | [phone] | remission (HCC) | | | | [phone] | | (Primary Dx) | +--------+ + + + + Social [...] [place] | | | | | | [address] | | | | | | | | +--------+ + + + + | 03/18/ | Office | Physical Medicine | Jovana Dawson | | | 2019 | Visit | and Rehabilitation | MELANY Man [address] | | | | | | [address] [facility] [facility] | | | | | | [address] [place] | | | | | | [address] | | | | | | | | +--------+ + + + + | 04/01/ | Appointment | Oncology | Deny Mcmanus, | | | 2019 | | | [address] | | | | | | [address] [place], | | | | | | [place] [address] | | | | | | [phone] | | | | | | | | +--------+ + + + + | 04/08/ | Procedure | Physical Medicine | Leonard De Leon | | | 2019 | visit | and Rehabilitation | MD Audelia [address] | | | | | | [place], [place] | | | | | | [address] | | | | | | | | +--------+ + + + + | 04/30/ | Office | Cardiology | Shad Saavedra, | | | 2019 | Visit | | [address] | | | | | | [place], | | | | | | [place] [address] | | | | | | [phone] | | | | | | | [...]
--- OUTSIDE RECORDS SUMMARY | ~2020-03-13 | XMS | Encounter Summary ---
Demographics + + + | Address | [address] | | | [place] [address] | + + + | Home Phone [...] Providers + +------+ + | Care Medical Billing Associate Name | Role | Phone | + [...] | +--------+ + + + + | 11/26/ | Telephone | [facility] | Deny Mcmanus, | Lab Results | | 2020 | | [facility] | [address] | | | | | ONCOLOGY CLINIC [address] | [address] [place], | | | | | [place] | [place] [address] | | | | | [place] [address] | [phone] | | | | | [phone] | | | +--------+ + + + [...] [place] | | | | | | [address] | | | | | | | | +--------+ + + + + | 03/18/ | Office | Physical Medicine | Jovana Dawson | | | 2019 | Visit | and Rehabilitation | MEL[address] Man [address] | | | | | | [address] [facility] | | | | | | [address] [place] | | | | | | [address] | | | | | | | | +--------+ + + + + | 04/01/ | Appointment | Oncology | Deny Mcmanus, | | | 2019 | | | [address] | | | | | | [address] [place], | | | | | | [place] [address] | | | | | | [phone] | | | | | | | | +--------+ + + + + | 04/08/ | Procedure | Physical Medicine | Leonard De Leon | | | 2019 | visit | and Rehabilitation | MD Kiki Win | | | | | | [place] | | | | | | [address] | | | | | | | | +--------+ + + + + | 04/30/ | Office | Cardiology | Shad Saavedra, | | | 2019 | Visit | | MD [address] | | | | | | [place], | | | | | | [place] [address] | | | | | | [phone] | | | | | | | | +--------+ + + + + documented as of this encounter Visit Diagnoses Not on filedocumented in this encounter"
--- OUTSIDE RECORDS SUMMARY | ~2020-03-13 | XMS | Encounter Summary ---
Demographics + + + | Address | [address] [address] | | | [place] [address] | + + + | Home Phone [...] Team Providers + +------+ + | Care Research Associate Quality Control Qc Name | Role | Phone | + +------+ + | Burton Masters MD | PCP | | + +------+ + Reason for Referral Evaluate & Treat (Urgent) +--------+ + + + + + | Status | Reason | Specialty | Diagnoses / | Referred By | Referred To | | | | | Procedures | Contact | Contact | +--------+ + + + + + | Closed | Specialty | Oncology | Diagnoses | Sonam, | Oscar, | | | Services | | Chronic | Burton Rizzo | [address] | | | Required | | myeloid | [address] | | | | | leukemia | [address] | [place], [place] | | | | | (HCC) | [place], | [address] | | | | | | [place] [address] | Phone: | | | | | | Phone: | [phone] | | | | | | [phone] | Fax: | | | | | | Fax: | [phone] | | | | | | [phone] | | +--------+ + + + + + Reason for Visit + + + | Reason | Comments | + + + | Referral | | | (PreAuthorization) | | + + + Encounter Details +--------+ + + + + | Date | Type | Department | Care Team | Description | +--------+ + + + + | 04/26/ | Telephone | [facility] | Sonam, Burton D, | Referral | | 2019 | | [facility] | [address] | (PreAuthorization) | | | | [address] | [place] | | | | | [place] | [address] | | | | | [address] | | | | | | [phone] | | | +--------+ + + + [...] [place] | | | | | | [address] | | | | | | | | +--------+ + + + + | 03/18/ | Office | Physical Medicine | Jovana Dawson | | | 2019 | Visit | and Rehabilitation | MEL[address] Man [address] | | | | | [address] | | | | | | [address] [place] | | | | | | [address] | | | | | | | | +--------+ + + + + | 04/01/ | Appointment | Oncology | Deny Mcmanus, | | 2019 | | | MD [address] | | | | | | [place] | | | | | | [place] [address] | | | | | | [phone] | | | | | | | | +--------+ + + + + | 04/08/ | Procedure | Physical Medicine | Leonard De Leon | | | 2019 | visit | and Rehabilitation | MD [address] | | | | | | [place] | | | | | | [address] | | | | | | | | +--------+ + + + + | 04/30/ | Office | Cardiology | Shad Saavedra, | | | 2019 | Visit | | [address] | | | | | | [place], | | | | | | [place] [address] | | | | | | [phone] | | | | | | | | +--------+ + + + + + + +--------+ + + | Name | Type | Priori | Associated Diagnoses | Order Schedule | | | | ty | | | + + +--------+ + + | Oncology, External - | Outpatient | Routin | Chronic myeloid | Ordered: 04/26/2019 | | AMB Referral | Referral | e | leukemia (HCC) | | + + +--------+ + + documented as of this encounter Visit Diagnoses + + | Diagnosis | + + | Chronic myeloid leukemia (HCC) - Primary Chronic myeloid leukemia, without mention of | | having achieved remission | + + documented in this encounter"
--- OUTSIDE RECORDS SUMMARY | ~2020-03-13 | XMS | Encounter Summary ---
Demographics + + + | Address | [address] | | | [place] [address] | + + + | Home Phone | | + + + | Preferred Language | Unknown | + + + | Marital Status | | + + + | Yazidism Affiliation | Unknown | + + + | Race | Unknown | + + + | Ethnic Group | Unknown | + + + Author + + + | Author | [facility] | | | and [place] | + + + | Organization | [facility] | | | [...] Team Providers + +------+ + | Care Spanish Speaking Nanny Name | Role | Phone | + [...] | | | | BCR/ABL-posi | [address] | [place], | | | | | [place] | [place], | [place] [address] | | | | | relapse | [place] | Phone: | | | | | (HCC) | [address] | [phone] | | | | | Chronic | Phone: | Fax: | | | | | myeloid | [phone] | [phone] | | | | | leukemia, | Fax: | | | | | | BCR/ABL-posi | [phone] | | | | | | tive, not | | | | | | | having | | | | | | | achieved | | | | | | | remission | | | | | | | (HCC) | | | | | | | Procedures | | | | | | | [place] OFFICE | | | | | | | OUTPATIENT | | | | | | | VISIT 25 | | | | | | | MINUTES | | | | | | | [address] | | | +--------+--------+ + + + + Encounter Details +--------+ + + + + | Date | Type | Department | Care Team | Description | +--------+ + + + + | 06/06/ | [facility] | [facility] | Deny Mcmanus, | 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, | | | | [facility]Y CLINIC [address] | [place], | BCR/ABL-positive, | | | | [place] | [place] [address] | not having achieved | | | | [place] [address] | [phone] | remission (HCC) | | | | [phone] | | (Primary Dx) | +--------+ + [...] | | | Visit | | [address] [facility] [address] | | | | | | [place] | | | | | | [address] | | | | | | | [...] [place] | | | | | | [address] | | | | | | | | +--------+ + + + + | 04/01/ | Appointment | Oncology | Deny Mcmanus, | | 2019 | | | [address] | | | | | | [place] | | | | | | [place] [address] | | | | | | [phone] | | | | | | | | +--------+ + + + + | 04/08/ | Procedure | Physical Medicine | Leonard De Leon | | | 2019 | visit | and Rehabilitation | MD Audelia [address] | | | | | | [place], [place] | | | | | | [address] | | | | | | | | +--------+ + + + + | 04/30/ | Office | Cardiology | Shad Saavedra, | | | 2019 | Visit | | MD [address] | | | | | | [place], | | | | | | [place] [address] | | | | | | [phone] | | | | | | | [...]
--- OUTSIDE RECORDS SUMMARY | ~2020-03-13 | XMS | Encounter Summary ---
Demographics + + + | Address | [address] | | | [place] [address] | + + + | Home Phone | | + + + | Preferred Language | Unknown | + + + | Marital Status | | + + + | Restorationist Affiliation | Unknown | + + + | Race | Unknown | + + + | Ethnic Group | Unknown | + + + Author + + + | Author | [facility] | | | and [place] | + + + | Organization | [facility] | | | [...] Team Providers + +------+ + | Care Babysitter Name | Role | Phone | + +------+ + | No, Physician | PCP | Unavailable | + +------+ + Reason for Visit + + + | Reason | Comments | + + + | Chest Pain | | + + + | Shortness of Breath | | + + + | Abdominal Pain | | + + + | Tachycardia | | + + + Encounter Details +--------+ + + + + | Date | Type | Department | Care Team | Description | +--------+ + + + + | 05/30/ | Emergency | [facility] | Adrian Bella, | Upper abdominal pain | | 2016 | | [facility] CTR [facility] | MD [address] | (Primary Dx); | | | | CENTER [address] | [place], [place] | Shortness of breath | | | | [place], [place] | [id number] | | | | | [address] | | | | | | [phone] | | | +--------+ + + + [...] + + + | Blood Pressure | 104/59 | 05/30/2016 3:00 AM | | | | | PDT | | + + + + + | Pulse | 93 | 05/30/2016 3:00 AM | | | | | PDT | | + + + + + | Temperature | 36.8 C (98.3 F) | 05/30/2016 12:34 AM | | | | | PDT | | + + + + + | Respiratory Rate | 28 | 05/30/2016 3:00 AM | | | | | PDT | | + + + + + | Oxygen Saturation | 97% | 05/30/2016 3:00 AM | | | | | PDT | | + + + + + | Inhaled Oxygen | - | - | | | Concentration | | | | + + + + + | Weight | 98.4 kg (217 lb) | 05/30/2016 12:34 AM | | | | | PDT | | + + + + + | Height | 175.3 cm (5' 9") | 05/30/2016 12:34 AM | | | | | PDT | | + + + + + | Body Mass Index | 32.05 | 05/30/2016 12:34 AM | | | | | PDT | | + + + + + documented in this encounter Discharge Instructions AttachmentsThe following attachments cannot be sent through Care Everywhere.CHEST PAIN, NON CARDIAC (PALESTINIAN)documented in this encounter Medications at Time of [...] | | 0 | | | | Wellsdd-Npudfbgut-Xo | | | | | 6 | [...] | | 0 | | | | Vraepemb-Wfs-Wj-FA | mouth Daily. | | | | [...] | | | | | | [address] | | | | | | [address] [place] | | | | | | [address] | | | | | | | | +--------+ + + + + | 04/01/ | Appointment | Oncology | Deny Mcmanus, | | | 2019 | | | [address] | | | | | | [place], | | | | | | [place] [address] | | | | | | [phone] | | | | | | | | +--------+ + + + + | 04/08/ | Procedure | Physical Medicine | Leonard De Leon | | | 2019 | visit | and Rehabilitation | T, [address] | | | | | | [facility] [place] | | | | | | [address] | | | | | | | | +--------+ + + + + | 04/30/ | Office | Cardiology | Shad Saavedra, | | | 2019 | Visit | | [address] | | | | | | [place], | | | | | | [place] [address] | | | | | | [phone] | | | | | | | | +--------+ + + + + + +------+--------+ + + | Name | Type | Priori | Associated Diagnoses | Date/Time | | | | ty | | | + +------+--------+ + + | ED INFORMATION | KEYUR | Routin | | 05/30/2016 12:24 AM | | EXCHANGE | | e | | PDT | + +------+--------+ + + documented as of this encounter Procedures + +--------+ + + + | Procedure Name | Priori | Date/Time | Associated Diagnosis | Comments | | | ty | | | | + +--------+ + + + | URINALYSIS WITH | STAT | 05/30/2016 | | Results for this | | MICROSCOPIC WITH | | 2:32 AM | | procedure are in the | | CULTURE IF INDICATED | | PDT | | results section. | + +--------+ + + + | CBC W/AUTO | STAT | 05/30/2016 | | Results for this | | DIFFERENTIAL | | 1:09 AM | | procedure are in the | | | | PDT | | results section. | + +--------+ + + + | TROPONIN I | STAT | 05/30/2016 | | Results for this | | | | 1:09 AM | | procedure are in the | | | | PDT | | results section. | + +--------+ + + + | D-DIMER | STAT | 05/30/2016 | | Results for this | | | | 1:09 AM | | procedure are in the | | | | PDT | | results section. | + +--------+ + + + | LIPASE | STAT | 05/30/2016 | | Results for this | | | | 1:09 AM | | procedure are in the | | | | PDT | | results section. | + +--------+ + + + | COMPREHENSIVE | STAT | 05/30/2016 | | Results for this | | METABOLIC PANEL | | 1:09 AM | | procedure are in the | | | | PDT | | results section. | + +--------+ + + + | ECG 12 LEAD | STAT | 05/30/2016 | | Results for this | | | | 12:58 AM | | procedure are in the | | | | PDT | | results section. | + +--------+ + + + | ED INFORMATION | Routin | 05/30/2016 | | | | EXCHANGE | e | 12:24 AM | | | | | | PDT | | | + +--------+ + + + documented in this encounter Results Urinalysis with Microscopic with Culture if Indicated (05/30/2016 2:32 AM PDT) + + + + + + | Component | Value | Ref Range | Performed | Pathologist | | | | | At | Signature | + + + + + + | Color, | Yellow | Light Yellow, | [facility] | | | Urine | | Yellow, Straw | [facility] | | | | [...] + + + + | Specific | 1.023 | 1.001 - 1.030 | [facility] | | | [place], | | | [facility] | | [...] + + + + | Leukocyte | Trace (A) | Negative | [facility] | | [...] + + + + | Squamous | 15-25 (A) | 0 - 2 /LPF | [facility] | | | Epithelial | | | [facility] | | | Cells, | | | MEDICAL | | | Urine | | | CENTER - | | | | | | LABORATORY | | + + + + + + | Bacteria, | 1+ (A) | Negative /HPF | [facility] | [...] Urine | Urine Culture Not | | [facility] | | | Comment | Indicated | | [facility] | | | | | | MEDICAL | | | | | | CENTER - | | | | | | LABORATORY | | + + + + + + + + | Specimen | + + | Urine | + + + + + + + | Performing | Address | City/State/Zipcode | Phone Number | | Organization | | | | + + + + + | [facility] | [address] | [place] | [phone] | | [facility] | | [address] | | | - LABORATORY | | | | + + + + + Troponin I (05/30/2016 1:09 AM PDT) + + + + + + | Component | Value | Ref Range | Performed | Pathologist | | | | | At | Signature | + + + + + + | Troponin I | <0.01Comment: Reference | <0.06 ng/mL | [facility] | | | | Ranges:0.00-0.06 = | | [facility] | | | | NORMAL>0.06 = | | MEDICAL | | | | SUSPICIOUS FOR | | CENTER - | | | | MYOCARDIAL DAMAGE NOTE: | | LABORATORY | | | | Values greater than 0.50 | | | | | | ng/mL have been shown | | | | | | to be strongly | | | | | | associated with acute | | | | | | myocardial infarction. | | | | | | [employer] | | | | | [...] + | [facility] | [address] | [place] | [phone] | | [facility] | | [address] | | | - LABORATORY | | | | + + + + + Lipase (05/30/2016 1:09 AM PDT) + +-------+ + + + | Component | Value | Ref Range | Performed | Pathologist | | | | | At | Signature | + +-------+ + + + | Lipase | 19 | 0 - 60 U/L | [facility] | | | | | | ST[facility] [...] + | [facility] | [address] | [place] | [phone] | | [facility] | | [address] | | | - LABORATORY | | | | + + + + + D-Dimer (05/30/2016 1:09 AM PDT) + + + + + + | Component | Value | Ref Range | Performed | Pathologist | | | | | At | Signature | + + + + + + | D-Dimer | 0.40Comment: This | <=0.50 ug/ml | [facility] | | | Quantitativ | quantitative D-Dimer | | [facility] | | | e | assay has [...] + | [facility] | [address] | [place] | [phone] | | [facility] | | [address] | | | - LABORATORY | | | | + + + + + Comprehensive Metabolic Panel (05/30/2016 1:09 AM PDT) + + + + + + | Component | Value | Ref Range | Performed | Pathologist | | | | | At | Signature | + + + + + + | Na | 136 | 136 - 149 | [facility] | | | | | mmol/L | [facility] | | | | | | MEDICAL | | | | | | CENTER - | | | | | | LABORATORY | | + + + + + + | K | 3.7 | 3.5 - 5.1 | [facility] | | | | | mmol/L | [facility] | | | | | | MEDICAL | | | | | | CENTER - | | | | | | LABORATORY | | + + + + + + | Cl | 109 | 98 - 109 mmol/L | [facility] | | | | | | [facility] | | | | | | MEDICAL | | | | | | CENTER - | | | | | | LABORATORY | | + + + + + + | CO2 | 20 (L) | 24 - 31 mmol/L | [facility] | | | | | | [facility] | | | | | | MEDICAL | | | | | | CENTER - | | | | | | LABORATORY | | + + + + + + | Anion Gap | 7 | 3 - 16 mmol/L | [facility] | | | | | | [facility] | | | | | | MEDICAL | | | | | | CENTER - | | | | | | LABORATORY | | + + + + + + | Glucose | 107 | 70 - 109 mg/dL | [facility] | | | | | | [facility] | | | | | | [facility] | | | | | | CENTER - | | | | | | LABORATORY | | + + + + + + | BUN | 10 | 7 - 18 mg/dL | [facility] | | | | | | [facility] | | | | | | MEDICAL | | | | | | CENTER - | | | | | | LABORATORY | | + + + + + + | Creatinine | 0.63 | 0.60 - 1.30 | [facility] | | | | | [...] | mL/min/1.73m2 | [facility] | | | ANDORRAN | RATE,ESTIMATED | | MEDICAL | | | | mL/min/1.10l9Jrvp than | | CENTER - | | [...] + + + + | Calcium | 8.5 | 8.3 - 10.5 | [facility] | | | | | mg/dL | [facility] | | | | | | MEDICAL | | | | | | CENTER - | | | | | | LABORATORY | | + + + + + + | Albumin | 3.0 (L) | 3.2 - 5.0 g/dL | [facility] | | | | | | [facility] | | | | | | MEDICAL | | | | | | CENTER - | | | | | | LABORATORY | | + + + + + + | Bilirubin | 0.4 | 0.1 - 1.5 mg/dL | [facility] | | | Total | | | [facility] | | | | | | MEDICAL | | | | | | CENTER - | | | | | | LABORATORY | | + + + + + + | Total | 5.2 (L) | 6.0 - 7.8 g/dL | [facility] | | | Protein | | | [facility] | | | | | | MEDICAL | | | | | | CENTER - | | | | | | LABORATORY | | + + + + + + | AST | 18 | 10 - 42 U/L | [facility] | | | | | | [facility] | | | | | | MEDICAL | | | | | | CENTER - | | | | | | LABORATORY | | + + + + + + | ALT | 23 | 6 - 45 U/L | [facility] | | | | | | [facility] | | | | | | MEDICAL | | | | | | CENTER - | | | | | | LABORATORY | | + + + + + + | Alkaline | 46 | 40 - 110 U/L | [facility] [...] + + + + | Albumin/Simona | 1.4 | 0.8 - 2.0 | [facility] | | | bulin Ratio | | | [facility] | | | | | | MEDICAL | | | | | | CENTER - | | | | | | LABORATORY | | + + + + + + | BUN/Creatin | 15.9 | | [facility] | | | ine [...] [address] | [place] | [phone] | | [facility] | | [address] | | | - LABORATORY | | | | + + + + + CBC w/ Auto Differential (05/30/2016 1:09 AM PDT) + + + + + + | Component | Value | Ref Range | Performed | Pathologist | | | | | At | Signature | + + + + + + | WBC | 11.5 (H) | 4.0 - 11.0 K/uL | [facility] | | | | | | [facility] | | | | | | MEDICAL | | | | | | CENTER - | | | | | | LABORATORY | | + + + + + + | RBC | 3.76 | 3.70 - 5.20 | [facility] | | | | | M/uL | [facility] | | | | | | MEDICAL | | | | | | CENTER - | | | | | | LABORATORY | | + + + + + + | Hemoglobin | 11.7 | 11.5 - 16.0 | [facility] | | | | | g/dL | [facility] | | | | | | MEDICAL | | | | | | CENTER - | | | | | | LABORATORY | | + + + + + + | Hematocrit | 33.5 (L) | 34.0 - 47.0 % | [facility] | | | | | | [facility] | | | | | | MEDICAL | | | | | | CENTER - | | | | | | LABORATORY | | + + + + + + | MCV | 89.1 | 83.0 - 101.0 fL | [facility] | | | | | | [facility] | | | | | | MEDICAL | | | | | | CENTER - | | | | | | LABORATORY | | + + + + + + | MCH | 31.2 | 28.0 - 35.0 pg | [facility] [...] + + + + | Platelet | 170 | 140 - 440 K/uL | [facility] [...] + + + + | % | 72.6 | 45.0 - 82.0 % | [facility] | | | Neutrophils | | | [facility] | | | | | | MEDICAL | | | | | | CENTER - | | | | | | LABORATORY | | + + + + + + | % | 21.2 | 20.0 - 45.0 % | [facility] | | | Lymphocytes | | | [facility] | | | | | | MEDICAL | | | | | | CENTER - | | | | | | LABORATORY | | + + + + + + | % Monocytes | 4.3 | 4.0 - 12.0 % | [facility] | | | | | | [facility] | | | | | | MEDICAL | | | | | | CENTER - | | | | | | LABORATORY | | + + + + + + | % | 1.3 | 0.0 - 5.0 % | [facility] [...] + + + + | Absolute | 8.40 | 1.80 - 8.50 | [facility] | | | Neutrophils | | K/uL | [facility] | | | | | | MEDICAL | | | | | | CENTER - | | | | | | LABORATORY | | + + + + + + | Absolute | 2.40 | 0.60 - 3.20 | [facility] | [...] + | [facility] | [address] | [place] | [phone] | | [facility] | | [address] | | | - LABORATORY | | | | + + + + + ECG 12 lead (05/30/2016 12:58 AM PDT) + + + + + + | Component | Value | Ref Range | Performed | Pathologist | | | | | At | Signature | + + + + + + | VENTRICULAR | 98 | BPM | [facility] | | | RATE EKG | | | | | + + + + + + | ATRIAL RATE | 98 | BPM | [facility] | | + + + + + + | P-R | 124 | ms | [facility] | | | INTERVAL | | | | | + + + + + + | QRS | 80 | ms | [facility] | | | DURATION | | | | | + + + + + + | Q-T | 350 | ms | [facility] | | | INTERVAL | | | | | + + + + + + | Q-T | 446 | ms | [facility] | | | INTERVAL | | | | | | (CORRECTED) | | | | | + + + + + + | P WAVE AXIS | 66 | degrees | [facility] | | + + + + + + | QRS AXIS | 82 | degrees | [facility] | | + + + + + + | T AXIS | 54 | degrees | [facility] | | + + + + + + | INTERPRETAT | Normal sinus | | [facility] | | | ION TEXT | rhythmNormal ECGNo | | | | | | previous ECGs | | | | | | availableConfirmed by | | | | | | MARIANO HENRY MD ([id number]) | | | | | | on 05/30/2016 8:36:43 AM | | | | + + [...] + | Diagnosis | + + | Upper abdominal pain - Primary Abdominal pain, other specified site | + + | Shortness of breath | + + documented in this encounter
--- OUTSIDE RECORDS SUMMARY | ~2020-03-13 | XMS | Encounter Summary ---
Demographics + + + | Address | [address] | | | [place] [address] | + + + | Home Phone | | + + + | Preferred Language | Unknown | + + + | Marital Status | | + + + | Worship Affiliation | Unknown | + + + [...] Team Providers + +------+ + | Care Back Office Medical Assistant Name | Role | Phone | [...] | Oncology | Diagnoses | Sonam, | Yonathan, | | | Services | | Chronic | Burton Rizzo, | Deny Sarabia MD | | | Required | | myeloid | [address] | | | | | leukemia, | [address] | | | | | BCR/ABL-posi | [place], | [place], | | | | | [place] | [place] [address] | [place] [address] | | | | | relapse | Phone: | Phone: | | | | | ([facility]) | [phone] | [phone] | | | | | | Fax: | Fax: | | | | | | [phone] | [phone] | +--------+ + + + + + Reason for Visit + + + | Reason | Comments | + + + | Referral | | + + + Encounter Details +--------+ + + + + | Date | Type | Department | Care Team | Description | +--------+ + + + + | 01/07/ | Telephone | [facility] | Burton Masters, | Referral | | 2019 | | [facility] [place] | [address] | | | | | [address] | [place] | | | | | [place] | [address] | | | | | [address] | | | | | | [phone] | | | +--------+ + + + [...] [place] | | | | | | [address] | | | | | | | | +--------+ + + + + | 03/18/ | Office | Physical Medicine | Jovana Dawson | | | 2019 | Visit | and Rehabilitation | M[address] | | | | | [address] | | | | | | [place] | | | | | | [address] | | | | | | | | +--------+ + + + + | 04/01/ | Appointment | Oncology | Deny Mcmanus, | | | 2019 | | | [address] | | | | | | [place] | | | | | | [place] [address] | | | | | | [phone] | | | | | | | | +--------+ + + + + | 04/08/ | Procedure | Physical Medicine | Leonard De Leon | | | 2019 | visit | and Rehabilitation | MD Audelia [address] | | | | | | [place] | | | | | | [address] | | | | | | | | +--------+ + + + + | 04/30/ | Office | Cardiology | Shad Saavedra, | | | 2019 | Visit | | MD [address] | | | | | | [place], | | | | | | [place] [address] | | | | | | [phone] | | | | | | | | +--------+ + + + + + + +--------+ + + | Name | Type | Priori | Associated Diagnoses | Order Schedule | | | | ty | | | + + +--------+ + + | * [facility] | Outpatient | Routin | Chronic myeloid | Ordered: 01/07/2019 | | Oncology Clinic - | Referral | e | leukemia, | | | AMB Referral | | | BCR/ABL-positive, in | | | | | | relapse (HCC) | | + + +--------+ + + documented as of this encounter Visit Diagnoses + + | Diagnosis | + + | Chronic myeloid leukemia, BCR/ABL-positive, in relapse (HCC) - Primary Chronic | | myeloid leukemia, in relapse | + + documented in this encounter"
--- OUTSIDE RECORDS SUMMARY | ~2020-03-13 | XMS | Encounter Summary ---
Demographics + + + | Address | [address] | | | [place] [address] | + + + | Home Phone | | + + + | Preferred Language | Unknown | + + + | Marital Status | | + + + | Zoroastrianism Affiliation | Unknown | + + + | Race | Unknown | + + + | Ethnic Group | Unknown | + + + Author + + + | Author | [facility] | | | and [place] | + + + | Organization | [facility] | | [...] Team Providers + +------+ + | Care Wireless Sales Representative Name | Role | Phone [...] + + + + | 08/12/ | Hospital | [facility] | Presley Bravo, | SVT | | 2019 - | Encounter | [facility] | MD [address] | (supraventricular | | | | CARE FLOOR [address] | [place], [place] | tachycardia) ([facility]) | | 08/13/ | | [address] | [address] | | | 2018 | | [place], [place] | | | | | | [address] | | | | | | [phone] | | | +--------+ + + + [...] + + + | Blood Pressure | 144/92 | 08/13/2019 7:48 AM | | | | | PDT | | + + + + + | Pulse | 56 | 08/13/2019 7:48 AM | | | | | PDT | | + + + + + | Temperature | 36.9 C (98.5 F) | 08/13/2019 7:48 AM | | | | | PDT | | + + + + + | Respiratory Rate | 18 | 08/13/2019 7:48 AM | | | | | PDT | | + + + + + | Oxygen Saturation | 96% | 08/13/2019 7:48 AM | | | | | PDT | | + + + + + | Inhaled Oxygen | - | - | | | Concentration | | | | + + + + + | Weight | 81.8 kg (180 lb 5.4 | 08/12/2019 9:45 PM | | | | oz) | PDT | | + + + + + | Height | 172.7 cm (5' 8") | 08/12/2019 9:14 AM | | | | | PDT | | + + + + + | Body Mass Index | 27.42 | 08/12/2019 9:14 AM | | | | | PDT | | + + + + + documented in this encounter Discharge Instructions Instructions Nataly Dos Santos ARNP - 08/12/2019 Groin bandages may come off in shower at home the day after your procedure. NO soaking in tubs, pools, hot tubs for 1 week. Avoid scrubbing groin sites x3 days post procedure to prevent bleeding. Stop taking your aspirin. Continue all regular medications otherwise. Restrict lifting to less than 10 pounds x1 week post procedure. After 1 week, OK to resu me all usual activities. Be mindful of any arrhythmia recurrence. It is normal to have occasional extra heart ana maría ts, but you should not have the very rapid heart rate anymore. If you do, please let us know . Routine follow up in electrophysiology clinic 3 months post procedure. Please call our office if any issues arise prior to scheduled follow up! documented in this encounter Medications at Time [...] tablet by | 180 | 1 | 08/06/20 | | | (WELLBUTRIN) 100 mg | mouth 2 times daily. | tablet | | 19 | 9 | | tablet | | | | | | + + + +---------+ + + | lamoTRIgine | Take 1 tablet by | 60 | 0 | 08/06/20 | | | (LAMICTAL) 25 mg | mouth Daily. | tablet | | 19 | 9 | | tablet | | | | | | + + + +---------+ + + | nortriptyline | Take 1 capsule by | 30 | 0 | 08/06/20 | | | (PAMELOR) 25 mg | mouth nightly. | capsule | | 19 | 9 | | capsule | | | | | | + + + +---------+ + + | ondansetron | Take 1 tablet by | 30 | 2 | 08/06/20 | | | (ZOFRAN) 8 MG tablet [...] + + + +---------+ + + | potassium chloride | Take 1 capsule by | 60 | 11 | 08/08/20 | | | (MICRO-K) 10 mEq CR | mouth 2 times daily. | capsule | | 19 | 9 | | capsule | | | | | | + + + +---------+ + + | prochlorperazine | Take 1 tablet by | 30 | 0 | 08/06/20 | | | 10 mg tablet | [...] documented as of this encounter Progress Notes Archie Ellison RN - 08/13/2019 8:30 AM PDTPt received d/c orderd. Pt refused morning me dications and was found to be tearful. Pt states she just wants to go home. . . Pt had left several of her children at home. Pt asking if she may just leave- RN prioritizing task. AVS provided and pt released with child and mother. Kimber Sellers RN - 08/13/2019 5:30 AM PDTChart check complet e Kimber Sellers RN - 08/13/2019 12:43 AM PDTRt groin SDIElectronically signed by Kimber Goncalves RN at 06/2019 12:43 AM Kimber Sellers RN - 08/12/2019 10:08 PM PDTPt here s/p cardiac ablat ion, pt has family at bedside, plan of care reviewed including meds, no questions at this ti me. documented in thi s encounter Plan of Treatment +--------+ + + + + | Date | Type | Specialty | Care Team | Description | +--------+ + + + + | 03/17/ | Virtual | Neurosurgery | Zuhair Flores | | | 2019 | Office | | MD [address] | | | | Visit | | [place] [address] | | | | | | [place] | | | | | | [address] | | | | | | | | +--------+ + + + + | 04/01/ | Appointment | Oncology | Deny Mcmanus, | | | 2019 | | | [address] | | | | | | [place] | | | | | | [place] [address] | | | | | | [phone] | | | | | | | | +--------+ + + + + | 04/08/ | Procedure | Physical Medicine | Leonard De Leon | | | 2019 | visit | and Rehabilitation | MD Audelia [address] | | | | | | [place] | | | | | | [address] | | | | | | | | +--------+ + + + + | 04/30/ | Office | Cardiology | Shad Saavedra, | | | 2019 | Visit | | [address] [place] | | | | | | [place], | | | | | | [place] [address] | | | | | | [phone] | | | | | | | | +--------+ + + + + + + +--------+ + + | Name | Type | Priori | Associated Diagnoses | Date/Time | | | | ty | | | + + +--------+ + + | CV EP Procedure | Electrophys | Routin | SVT | 08/12/2019 1:19 PM | | | iology | e | (supraventricular | PDT | | | | | tachycardia) (HCC) | | + + +--------+ + + documented as of this encounter Procedures + +--------+ + + + | Procedure Name | Priori | Date/Time | Associated Diagnosis | Comments | | | ty | | | | + +--------+ + + + | CBC NO DIFFERENTIAL | STAT | 08/12/2019 | | Results for this | | | | 9:23 AM | | procedure are in the | | | | PDT | | results section. | + +--------+ + + + | , SERUM, | STAT | 08/12/2019 | | Results for this | | QUAL | | 9:23 AM | | procedure are in the | | | | PDT | | results section. | + +--------+ + + + | BASIC METABOLIC | STAT | 08/12/2019 | | Results for this | | PANEL | | 9:23 AM | | procedure are in the | | | | PDT | | results section. | + +--------+ + + + documented in this encounter Results , Serum, Qual (08/12/2019 9:23 AM PDT) + + + + + + | Component | Value | Ref Range | Performed | Pathologist | | | | | At | Signature | + + + + + + | Preg, Serum | NEGATIVEComment: Testing | NEG | [facility] | | | | performed at [facility] | | LABORATORY | | | | [address];[place] | | | | | | [address] | | | | + + + + + + + + | Specimen | + + | Blood | + + + + + + + | Performing | Address | City/State/Zipcode | Phone Number | | Organization | | | | + + + + + | [facility] | [address] | [place] [address] | [phone] | + + + + + CBC no Differential (08/12/2019 9:23 AM PDT) + + + + + + | Component | Value | Ref Range | Performed | Pathologist | | | | | At | Signature | + + + + + + | WBC | 5.25 | 3.80 - 11.00 | [facility] | | | | | K/uL | LABORATORY | | + + + + + + | RBC | 3.78 | 3.70 - 5.10 | [facility] | | | | | M/uL | LABORATORY | | + + + + + + | Hemoglobin | 13.9 | 11.3 - 15.5 | [facility] | | | | | g/dL | LABORATORY | | + + + + + + | Hematocrit | 40.0 | 34.0 - 46.0 % | [facility] | | | | | | LABORATORY | | + + + + + + | MCV | 105.8 (H) | 80.0 - 100.0 fl | [facility] | | | | | | LABORATORY | | + + + + + + | MCH | 36.8 (H) | 27.0 - 34.0 pg | [facility] | | | | | | LABORATORY | | + + + + + + | MCHC | 34.8 | 32.0 - 35.5 | [facility] | | | | | g/dL | LABORATORY | | + + + + + + | RDW-SD | 50.3 | 37 - 53 fl | [facility] | | | | | | LABORATORY | | + + + + + + | Platelet | 121 (L) | 150 - 400 K/uL | [facility] | | | Count | | | LABORATORY | | + + + + + + | MPV | 7.4Comment: Testing | fl | [facility] | | | | performed at [facility] | | LABORATORY | | | | [address];[place] | | | | | | [address] | | | | + + + + + + + + | Specimen | + + | Blood | + + + + + + + | Performing | Address | City/State/Zipcode | Phone Number | | Organization | | | | + + + + + | [facility] | [address] | [place] [address] | [phone] | + + + + + Basic Metabolic Panel (08/12/2019 9:23 AM PDT) + + + + + + | Component | Value | Ref Range | Performed | Pathologist | | | | | At | Signature | + + + + + + | Na | 145 | 135 - 145 | [facility] | | | | | mmol/L | LABORATORY | | + + + + + + | K | 3.5 | 3.5 - 4.9 | [facility] | | | | | mmol/L | LABORATORY | | + + + + + + | Cl | 114 (H) | 99 - 109 mmol/L | [facility] | | | | | | LABORATORY | | + + + + + + | CO2 | 21 (L) | 23 - 32 mmol/L | [facility] | | | | | | LABORATORY | | + + + + + + | Anion Gap | 14 | 5 - 20 mmol/L | [facility] | | | | | | LABORATORY | | + + + + + + | Glucose | 98 | 65 - 99 mg/dL | [facility] | | | | | | LABORATORY | | + + + + + + | BUN | 9 | 8 - 25 mg/dL | [facility] | | | | | | LABORATORY | | + + + + + + | Creatinine | 0.72 | 0.50 - 1.00 | [facility] | | | | | mg/dL | LABORATORY | | + + + + + + | BUN/Creatin | 13 | | [facility] | | | ine Ratio | | | LABORATORY | | + + + + + + | Calcium | 8.9 | 8.5 - 10.5 | [facility] | | | | | mg/dL | LABORATORY | | + + + + + + | Estimated | >60Comment: GFR <60: | >60 | [facility] | | | GFR | CHRONIC KIDNEY DISEASE, | mL/min/1.73m2 | LABORATORY | | | | IF FOUND OVER A 3 MONTH | | | | | | PERIOD.GFR <15: KIDNEY | | | | | | FAILURE.FOR | | | | | | AMERICANS, MULTIPLY THE | | | | | | CALCULATED GFR BY | | | | | | 1.210.This eGFR is | | | | | | calculated using the | | | | | | MDRD IDMS traceable | | | | | | equation.Testing | | | | | | performed at [facility] | | | | | | [facility];[place], [place] | | | | | | [address] | | | | + + + + + + + + | Specimen | + + | Blood | + + + + + + + | Performing | Address | City/State/Zipcode | Phone Number | | Organization | | | | + + + + + | [facility] | [address] [facility] | [place] [address] | [phone] | + + + + + documented in this encounter Visit Diagnoses + + | Diagnosis | + + | SVT (supraventricular tachycardia) (HCC) Other specified cardiac dysrhythmias | + + documented in this encounter Admitting Diagnoses + + | Diagnosis | + + | SVT (supraventricular tachycardia) (HCC) Other specified cardiac dysrhythmias | + + documented in this encounter Administered Medications + +--------+ +--------+------+------+ | Medication Order | MAR | Action | Dose | Rate | Site | | | Action | Date | | | | + +--------+ +--------+------+------+ | acetaminophen (TYLENOL) tablet | Given | 08/12/20 | 650 mg | | | | 650 mg 650 mg, Oral, EVERY 4 | | 19 2:06 | | | | | HOURS (6 times per day), First | | PM PDT | | | | | dose on 08/12/19 at 1345, | | | | | | | Post-op/Phase II | | | | | | + +--------+ +--------+------+------+ +---+---+ | | | +---+---+ + +-------+ +--------+---+---+ | ALPRAZolam (XANAX) tablet 0.5-1 | Given | 08/13/20 | 0.5 mg | | | | mg 0.5-1 mg, Oral, 3 TIMES | | 19 6:27 | | | | | DAILY PRN, Anxiety, Starting Mon | | AM PDT | | | | | 08/12/19 at 1328 | | | | | | + +-------+ +--------+---+---+ +-------+ +------+---+---+ | Given | 08/12/20 | 1 mg | | | | | 19 9:37 | | | | | | PM PDT | | | | +-------+ +------+---+---+ | Given | 08/12/20 | 1 mg | | | | | 19 2:16 | | | | | | PM PDT | | | | +-------+ +------+---+---+ +---+---+ | | | +---+---+ + +-------+ +--------+---+---+ | buPROPion (WELLBUTRIN) tablet | Given | 08/13/20 | 100 mg | | | | 100 mg 100 mg, Oral, 2 TIMES | | 19 6:21 | | | | | DAILY, First dose on Mon 19 | | AM PDT | | | | | at 2100 | | | | | | + +-------+ +--------+---+---+ +-------+ +--------+---+---+ | Given | 08/12/20 | 100 mg | | | | | 19 9:38 | | | | | | PM PDT | | | | +-------+ +--------+---+---+ +---+---+ | | | +---+---+ + +-------+ +-------+---+---+ | famotidine (PEPCID) tablet 20 | Given | 08/13/20 | 20 mg | | | | mg 20 mg, Oral, 2 TIMES DAILY, | | 19 6:22 | | | | | First dose on Mon08/12/19 at 1345 | | AM PDT | | | | + +-------+ +-------+---+---+ +-------+ +-------+---+---+ | Given | 08/12/20 | 20 mg | | | | | 19 9:37 | | | | | | PM PDT | | | | +-------+ +-------+---+---+ | Given | 08/12/20 | 20 mg | | | | | 19 2:06 | | | | | | PM PDT | | | | +-------+ +-------+---+---+ +---+---+ | | | +---+---+ + +-------+ +-------+---+---+ | lamoTRIgine (laMICtal) tablet | Given | 08/13/20 | 25 mg | | | | 25 mg 25 mg, Oral, DAILY, First | | 19 6:23 | | | | | dose on 08/12/19 at 1345 | | AM PDT | | | | + +-------+ +-------+---+---+ +-------+ +-------+---+---+ | Given | 08/12/20 | 25 mg | | | | | 19 2:03 | | | | | | PM PDT | | | | +-------+ +-------+---+---+ +---+---+ | | | +---+---+ + +-------+ +-------+---+---+ | nortriptyline (PAMELOR) capsule | Given | 08/12/20 | 25 mg | | | | 25 mg 25 mg, Oral, NIGHTLY, | | 19 9:40 | | | | | First dose on 08/12/19 at 2100 | | PM PDT | | | | + +-------+ +-------+---+---+ +---+---+ | | | +---+---+ + +-------+ +------+---+---+ | ondansetron (ZOFRAN) injection | Given | 08/13/20 | 8 mg | | | | 4-8 mg 4-8 mg, Intravenous, | | 19 3:42 | | | | | EVERY 6 HOURS PRN, Nausea, | | AM PDT | | | | | Vomiting, Starting 08/12/19 at | | | | | | | 1328, Post-op/Phase II | | | | | | + +-------+ +------+---+---+ +-------+ +------+---+---+ | Given | 08/12/20 | 8 mg | | | | | 19 9:41 | | | | | | PM PDT | | | | +-------+ +------+---+---+ | Given | 08/12/20 | 8 mg | | | | | 19 2:17 | | | | | | PM PDT | | | | +-------+ +------+---+---+ +---+---+ | | | +---+---+ + +-------+ +------+---+---+ | oxyCODONE (ROXICODONE) tablet 5 | Given | 08/13/20 | 5 mg | | | | mg 5 mg, Oral, EVERY 8 HOURS | | 19 6:22 | | | | | PRN, Pain, Starting 08/12/19 | | AM PDT | | | | | at 1328 | | | | | | + +-------+ +------+---+---+ +-------+ +------+---+---+ | Given | 08/12/20 | 5 mg | | | | | 19 9:38 | | | | | | PM PDT | | | | +-------+ +------+---+---+ | Given | 08/12/20 | 5 mg | | | | | 19 2:03 | | | | | | PM PDT | | | | +-------+ +------+---+---+ +---+---+ | | | +---+---+ + +-------+ +--------+---+---+ | potassium chloride (KLOR-CON) | Given | 08/12/20 | 20 mEq | | | | ER tablet 20 mEq 20 mEq, Oral, | | 19 2:06 | | | | | DAILY, First dose on 08/12/19 | | PM PDT | | | | | at 1345, May take with food to | | | | | | | decrease GI upset., | | | | | | + +-------+ +--------+---+---+ +---+---+ | | | +---+---+ + +-------+ +-------+---+---+ | prochlorperazine tablet 10 mg | Given | 08/13/20 | 10 mg | | | | 10 mg, Oral, EVERY 8 HOURS PRN, | | 19 6:27 | | | | | Nausea, Starting Mon08/12/19 at | | AM PDT | | | | | 1328 | | | | | | + +-------+ +-------+---+---+ +-------+ +-------+---+---+ | Given | 08/12/20 | 10 mg | | | | | 19 9:38 | | | | | | PM PDT | | | | +-------+ +-------+---+---+ | Given | 08/12/20 | 10 mg | | | | | 19 2:17 | | | | | | PM PDT | | | | +-------+ +-------+---+---+ +---+---+ | | | +---+---+ + +---------+ +---+ +---+ | sodium chloride 0.9% (NS) | New Bag | 08/12/20 | | 10 mL/hr | | | infusion at 10 mL/hr, | | 19 9:57 | | | | | Intravenous, NAVAL SCIENCE TEACHER, Starting | | AM PDT | | | | | 08/12/19 at 0914, For 1 dose, | | | | | | | Pre-op | | | | | | + +---------+ +---+ +---+ +---+---+ | | | +---+---+ documented in this encounter
--- OUTSIDE RECORDS SUMMARY | ~2020-03-13 | XMS | Encounter Summary ---
Demographics + + + | Address | [address] | | | [place] [address] | + + + | Home Phone [...] Author + + + | Author | [facility] | + + + | Organization | [facility] | + + + | Address [...] Team Providers + +------+ + | Care Booster Pump Operator Name | Role | Phone | + +------+ + | Burton Masters MD | PCP | | + +------+ + Encounter Details +--------+ + + + + | Date | Type | Department | Care Team | Description | +--------+ + + + + | 05/23/ | Pharmacy | Pharmacy @ [facility] | | | | 2019 | Visit | [address] | | | | | | Myron Arce Mailcode: | | | | | | [facility] | | | | | | and Healing, | | | | | | [address] | | | | | | [place], [place] | | | | | | [address] | | | +--------+ + + + [...] [address] | | | | | | [place], [place] | | | | | | [address] | | | | | | [phone] | | | | | | | | +--------+---------+ + + + documented as of this encounter Visit Diagnoses Not on filedocumented in this encounter"
--- OUTSIDE RECORDS SUMMARY | ~2020-03-13 | XMS | Encounter Summary ---
Demographics + + + | Address | [address] | | | [place] [address] | + + + | Home Phone [...] Team Providers + +------+ + | Care Fixing Carpenter Name | Role | Phone | + +------+ + | Burton Masters MD | PCP | | + +------+ + Reason for Visit + + + | Reason | Comments | + + + | Urinary Tract | x 5 days; urinary urgency, dysuria, gross hematuria | | Infection | | + + + Encounter Details +--------+---------+ + + + | Date | Type | Department | Care Team | Description | +--------+---------+ + + + | 06/28/ | Office | [facility] | Kimmie Talavera | Acute cystitis with | | 2019 | Visit | [address] | [address] | hematuria (Primary | | | | [address] | [place] | Dx) | | | | [address] [facility] [place] | [place] [address] | | | | | [place] [address] | [phone] | | | | | [phone] | | | +--------+---------+ + + + [...] + + + | Blood Pressure | 120/84 | 06/28/2019 3:49 PM | | | | | PDT | | + + + + + | Pulse | 92 | 06/28/2019 3:49 PM | | | | | PDT | | + + + + + | Temperature | 36.9 C (98.5 F) | 06/28/2019 3:49 PM | | | | | PDT | | + + + + + | Respiratory Rate | 16 | 06/28/2019 3:49 PM | | | | | PDT | | + + + + + | Oxygen Saturation | 98% | 06/28/2019 3:49 PM | | | | | PDT | | + + + + + | Inhaled Oxygen | - | - | | | Concentration | | | | + + + + + | Weight | 81.2 kg (179 lb) | 06/28/2019 3:49 PM | | | | | PDT | | + + + + + | Height | 172.7 cm (5' 8") | 06/28/2019 3:49 PM | | | | | PDT | | + + + + + | Body Mass Index | 27.22 | 06/28/2019 3:49 PM | | | | | PDT | | + + + + + documented in this encounter Patient Instructions Patient Instructions Kimmie Talavera ARNP - 06/28/2019 3:40 PM PDT Bladder Infection,Female (Adult) Urine is normally doesn't have any bacteria in it. But bacteria can get into the urinary tr act from the skin around the rectum. Or they can travel in the blood from elsewhere in the b truong. Once they are in your urinary tract, they can cause infection in the urethra (urethriti s), the bladder (cystitis), or the kidneys (pyelonephritis). The most common place for an infection is in the bladder. This is called a bladder infectio n. This is one of the most common infections in women. Most bladder infections are easily tr eated. They are not serious unless the infection spreads to the kidney. The phrases "bladder infection," "UTI," and "cystitis" are often used to describe the same thing. But they are not always the same. Cystitis is an inflammation of the bladder. Themo st common cause of cystitis is an infection. Symptoms The infection causes inflammation in the urethra and bladder. This causes many of the sympt oms. The most common symptoms of a bladder infection are: Pain or burning when urinating Having to urinate more often than usual Urgent need to urinate Only a small amount of urine comes out Blood in urine Abdominal discomfort. This is usually in the lower abdomen above the pubic bone. Cloudy urine Strong- or bad-smelling urine Unable to urinate (urinary retention) Unable to hold urine in (urinary incontinence) Fever Loss of appetite Confusion (in older adults) Causes Bladder infections are not contagious. You can't get one from someone else, from a toilet s eat, or from sharing a bath. The most common cause of bladder infections is bacteria from the bowels. The bacteria get o nto the skin around the opening of the urethra. From there, they can get into the urine and travel up to the bladder, causing inflammation and infection. This usually happens because o f: Wiping improperly after urinating. Always wipe from front to back. Bowel incontinence Procedures such as having a catheter inserted Older age Not emptying your bladder. This can allow bacteria a chance to grow in your urine. Dehydration Constipation Sex Use of a diaphragm for control Treatment Bladder infections are diagnosed by a urine test. They are treated with antibiotics and usu allyclear up quickly without complications. Treatment helps prevent a more serious kidney infection. Medicines Medicines can help in the treatment of a bladder infection: Take antibiotics until they are used up, even if you feel better. It is important to fin raheem them to make sure the infection has cleared. You can use acetaminophen or ibuprofen for pain, fever, or discomfort, unless another me dicine was prescribed. If you have chronic liver or kidney disease, talk with your healthcar eprovider before usingthese medicines. Also talk with your provider if you've ever had a stomach ulcer or gastrointestinal bleeding, or are taking blood-thinner medicines. If you are givenphenazopydridine to reduce burning with urination, it will cause your urine to become a bright orange color. This can stain clothing. Care and prevention These self-care steps can help prevent future infections: Drink plenty of fluids to prevent dehydration and flush out your bladder. Do thisunles s you must restrict fluids for other health reasons, or your doctor told you not to. Proper cleaning after going to the bathroom is important. Wipe from front to back after using the toilet to prevent the spread of bacteria. Urinate more often. Don't try to hold urine in for a long time. Wear loose-fitting clothes and cotton underwear. Avoid tight-fitting pants. Improve your diet and prevent constipation. Eat more fresh fruit and vegetables, andfi stephen, and less junk and fatty foods. Avoid sex until your symptoms are gone. Avoid caffeine, alcohol, and spicy foods. These can irritate your bladder. Urinate right after intercourse to flush out your bladder. If you use control pills and have frequent bladder infections, discuss it with you r doctor. Follow-up care Call your healthcare provider if all symptoms are not gone after 3 days of treatment. This is especially important if you have repeat infections. If a culture was done, you will be told if your treatment needs to be changed. If directed, you can callto find out the results. If X-rays were done, you will be told if the results will affect yourtreatment. Call 911 Call 911 if any of the following occur: Trouble breathing Hard to wake up orconfusion Fainting or loss of consciousness Rapid heart rate When to seek medical advice Call your healthcare provider right away if any of these occur: Fever of 100.4F (38.0C) or higher, or as directed by your healthcare provider Symptoms are not betterby the third day of treatment Back or belly (abdominal) pain that gets worse Repeated vomiting, or unable to keep medicine down Weakness or dizziness Vaginal discharge Pain, redness, or swelling in the outer vaginal area (labia) Date Last Reviewed: 08/06/201619998274-3414 [employer]. [address] [place] [address]. All righ ts reserved. This information is not intended as a substitute for professional medical care. Always follow your healthcare professional's instructions. documented in this encounter Progress Notes Kimmie Talavera ARNP - 06/28/2019 3:40 PM PDTFormatting of this note might be differen t from the original. Subjective: Ashley Webb is a 34 y.o. female who presents to the clinic with a complaint of Urinary Tract Infection (x 5 days; urinary urgency, dysuria, gross hematuria ) Urinary Tract Infection This is a new problem. The current episode started in the past 7 days. The problem occurs e very urination. The problem has been gradually worsening. The quality of the pain is describ ed as burning. The pain is mild. She is not sexually active. There is no history of pyelonep hritis. Associated symptoms include frequency, hematuria and urgency. Pertinent negatives in clude no flank pain, nausea or possible . She has tried increased fluids for the sy mptoms. Allergies Allergen Reactions Tape [Adhesive & Tape] Rash Medications: Patient Reported Taking Dosage ALPRAZolam (XANAX) 0.5 mg tablet (Taking) Take 1-2 tablets by mouth 3 times daily as need ed. Number of times this order has been changed since signin Order Audit Eitzen buPROPion (WELLBUTRIN) 100 mg tablet (Taking) Take 1 tablet by mouth 2 times daily. diphenoxylate-atropine (LOMOTIL) 2.5-0.025 mg per tablet (Taking) Take 2 tablets for diar samantha, then one tablet every 2 hours as needed. Number of times this order has been changed since signin Order Audit Eitzen imatinib (GLEEVEC) 400 mg tablet (Taking) Take 400 mg by mouth Daily. lamoTRIgine (LAMICTAL) 25 mg tablet (Taking) Take 1 tablet by mouth Daily. Number of times this order has been changed since signin Order Audit Eitzen loperamide (IMODIUM A-D) 2 MG tablet (Taking) 2 tablets by mouth followed by 1 tablet by mouth after each loose stool; Max 16 mg/day Number of times this order has been changed since signin Order Audit Eitzen nortriptyline (PAMELOR) 25 mg capsule (Taking) Take 1 capsule by mouth nightly. Number of times this order has been changed since signin Order Audit E[facility]zen ondansetron (ZOFRAN) 8 MG tablet (Taking) Take 1 tablet by mouth every 12 hours. Number of times this order has been changed since signin Order Audit Eitzen oxyCODONE (ROXICODONE) 5 mg tablet (Taking) Take 1 tablet by mouth every 8 hours as neede d for Pain. Number of times this order has been changed since signin Order Audit Eitzen prochlorperazine 10 mg tablet (Taking) Take 1 tablet by mouth every 8 hours as needed. Number of times this order has been changed since signin Order Audit Eitzen raNITIdine (ZANTAC) 150 mg tablet (Taking) Take 1 tablet by mouth Daily. Past Medical History She has a past medical history of Abdominal pain, Abnormal vaginal bleeding, Abscess of darion nk, Anxiety, Bipolar disease, chronic ([facility]), Breast lump, Chest pain, unspecified, Chronic l ow back pain (04/16/2015), Chronic myeloid leukemia, BCR/ABL-positive, not having achieved re mission ([facility]) (01/10/2019), Cough, DDD (degenerative disc disease), lumbar (04/16/2015), Depres rachell, Engorgement of breasts associated with childbirth, delivered, Fatigue, Female pelvic p ain, Fibromyalgia, Flu, Generalized anxiety disorder, Headache, Insomnia, Knee pain, Lumbar radiculopathy - left lower extremity (04/16/2015), Missed , Mucocele of salivary glan d, Muscle spasm, Obesity, Palpitations, Panic disorder, Pulpitis, Sciatica, Shoulder pain, T achycardia, and Tobacco use. Past Surgical History She has a past surgical history that includes section (02/05/2010); Dilation and c urettage of uterus (05/13/2015); section (N/A, 10/14/2016); Breast cyst aspiration ([place]); shoulder surgery (08/2014); section (N/A, 01/16/2018); and Tubal ligation (01/04). Social History Tobacco Use Smoking status: Current Every Day Smoker Packs/day: 1.00 Years: 16.00 Pack years: 16.00 Types: Cigarettes Start date: 03/03/2001 Smokeless tobacco: Never Used Substance Use Topics Alcohol use: Not Currently Alcohol/week: 0.0 oz Comment: None at this time. Drug use: Yes Types: Marijuana Review of Systems Gastrointestinal: Negative for nausea. Genitourinary: Positive for frequency, hematuria and urgency. Negative for flank pain. Allergic/Immunologic: History of leukemia, taking Rx for this. CML See HPI Objective: Vitals: 06/28/19 1549 BP: 120/84 Pulse: 92 Resp: 16 Temp: 36.9 C (98.5 F) TempSrc: Oral SpO2: 98% Weight: 81.2 kg (179 lb) Height: 1.727 m (5' 8") No LMP recorded. Physical Exam Constitutional: She is oriented to person, place, and time. Vital signs are normal. She maggie ears well-developed and well-nourished. She is active and cooperative. She is easily aroused . She appears distressed. HENT: Head: Normocephalic and atraumatic. Eyes: Pupils are equal, round, and reactive to light. Cardiovascular: Normal rate and regular rhythm. Pulmonary/Chest: Effort normal and breath sounds normal. No respiratory distress. She has n o wheezes. She has no rales. She exhibits no tenderness. Abdominal: Soft. She exhibits no distension. Neurological: She is alert, oriented to person, place, and time and easily aroused. No cran ial nerve deficit. Coordination normal. Skin: Skin is warm and dry. Nursing note and vitals reviewed. No results found for this or any previous visit (from the past 24 hour(s)). Assessment: 1. Acute cystitis with hematuria Plan: 1. Acute cystitis with hematuria See AVS for patient instructions. Diagnosis and plan including medications and side effects were discussed with the patient a nd information handout was given. Patient voices understanding of the plan and all questions were answered. No follow-ups on file. documented in this encounter Plan of Treatment +--------+ + + + + | Date | Type | Specialty | Care Team | Description | +--------+ + + + + | 03/17/ | Virtual | Neurosurgery | Zuhair Flores | | | 2019 | Office | | MD Josel[address] | | | | Visit | | [place] [address] | | | | | | [place] | | | | | | [address] | | | | | | | | +--------+ + + + + | 03/18/ | Office | Physical Medicine | Jovana Dawson | | | 2019 | Visit | and Rehabilitation | MELANY Man [address] | | | | | | [address] | | | | | | [place] | | | | | | [address] | | | | | | | | +--------+ + + + + | 04/01/ | Appointment | Oncology | Deny Mcmanus, | | | 2019 | | | [address] | | | | | | [place] | | | | | | [place] [address] | | | | | | [phone] | | | | | | | | +--------+ + + + + | 04/08/ | Procedure | Physical Medicine | Leonard De Leon | | | 2019 | visit | and Rehabilitation | MD Audelia [address] | | | | | | [place] | | | | | | [address] | | | | | | | | +--------+ + + + + | 04/30/ | Office | Cardiology | Shad Saavedra, | | | 2019 | Visit | | [address] | | | | | | [place], | | | | | | [place] [address] | | | | | | [phone] | | | | | | | | +--------+ + + + + documented as of this encounter Procedures + +--------+ + + + | Procedure Name | Priori | Date/Time | Associated Diagnosis | Comments | | | ty | | | | + +--------+ + + + | POCT URINALYSIS, | Routin | 06/28/2019 | Acute cystitis | Results for this | | AUTO WITH CONF | e | 4:00 PM | with hematuria | procedure are in the | | | | PDT | | results section. | + +--------+ + + + documented in this encounter Results POCT Urinalysis (06/28/2019 4:00 PM PDT) + + + + + + | Component | Value | Ref Range | Performed | Pathologist | | | | | At | Signature | + + + + + + | Color, UA, | Dark Yellow (A) | Yellow, Light | | | | POC | | Yellow | | | + + + + + + | Clarity, | Cloudy | | | | | UA, POC | | | | | + + + + + + | Glucose, | Negative | Negative | | | | UA, POC | | | | | + + + + + + | Bilirubin, | Negative | Negative | | | | UA, POC | | | | | + + + + + + | Ketones, | Negative | Negative, 100 | | | | UA, POC | | mg/dL | | | + + + + + + | Specific | 1.015 | 1.001 - 1.030 | | | | Ector, | | | | | | UA, POC | | | | | + + + + + + | Blood, UA, | Moderate (A) | Negative | | | | POC | | | | | + + + + + + | pH, UA, POC | 6.0 | 5.0, 6.0, 7.0, | | | | | | 8.0, 5.5, 6.5, | | | | | | 7.5 | | | + + + + + + | Protein, | Negative | Negative | | | | UA, POC | | | | | + + + + + + | Urobilinoge | < 0.2 E.U./dl | 0.2, Negative, | | | | n, UA, POC | | Normal, < 0.2 | | | | | | mg/dL, 1 mg/dL, | | | | | | < 0.2 E.U./dl, | | | | | | 1.0 E.U./dL, | | | | | | 0.2 mg/dL | | | + + + + + + | Nitrite, | Negative | Negative | | | | UA, POC | | | | | + + + + + + | Leukocyte | Moderate (A) | Negative | | | | Esterase, | | | | | | UA, POC | | | | | + + + + + + | Reducing | | | | | | Substances, | | | | | | Urine | | | | | + + + + + + | Bilirubin | | Negative | | | | Confirmatio | | | | | | n by | | | | | | Ictotest, | | | | | | Urine | | | | | + + + + + + | Remark | | | | | + + + + + + + + | Specimen | + + | Urine | + + documented in this encounter Visit Diagnoses + + | Diagnosis | + + | Acute cystitis with hematuria - Primary Acute cystitis | + + documented in this encounter
--- OUTSIDE RECORDS SUMMARY | ~2020-03-13 | XMS | Encounter Summary ---
Demographics + + + | Address | [address] | | | [place] [address] | + + + | Home Phone | | + + + | Preferred Language | Unknown | + + + | Marital Status | | + + + | Presybeterian Affiliation | Unknown | + + + | Race | Unknown | + + + | Ethnic Group | Unknown | + + + Author + + + | Author | [facility] | | | and [place] | + + + | Organization | [facility] | | [...] Team Providers + +------+ + | Care Child Development Professor Name | Role | Phone | + +------+ + | Burton Masters MD | PCP | | + +------+ + Reason for Visit + + + | Reason | Comments | + + + | Abdominal Pain | | + + + | Vomiting | | + + + | Diarrhea | | + + + Encounter Details +--------+ + + + + | Date | Type | Department | Care Team | Description | +--------+ + + + + | 04/26/ | Telephone | [facility] | Burton Masters, | Abdominal Pain; | | 2019 | | [facility] | [address] | Vomiting; Diarrhea | | | | [address] | [place], [place] | | | | | [place], [place] | [address] | | | | | [address] | | | | | | [phone] | | | +--------+ + + + [...] [address] | | | | | | [address] [facility] | | | | | | [address] [place] | | | | | | [address] | | | | | | | | +--------+ + + + + | 04/01/ | Appointment | Oncology | Deny Mcmanus, | | | 2019 | | | [address] | | | | | | [place], | | | | | | [place] [address] | | | | | | [phone] | | | | | | | | +--------+ + + + + | 04/08/ | Procedure | Physical Medicine | Leonard De Leon | | 2019 | visit | and Rehabilitation | T, [address] | | | | | | [place] | | | | | | [address] | | | | | | | | +--------+ + + + + | 04/30/ | Office | Cardiology | Shad Saavedra, | | 2019 | Visit | | [address] | | | | | | [place], | | | | | | [place] [address] | | | | | | [phone] | | | | | | | | +--------+ + + + + documented as of this encounter Visit Diagnoses Not on filedocumented in this encounter"
--- OUTSIDE RECORDS SUMMARY | ~2020-03-13 | XMS | Encounter Summary ---
Demographics + + + | Address | [address] | | | [place] [address] | + + + | Home Phone [...] Team Providers + +------+ + | Care Professor Of Psychology Name | Role | Phone | + +------+ + | Burton Masters MD | PCP | | + +------+ + Reason for Visit + + + | Reason | Comments | + + + | Medication Refill | | + + + | Other | Drug/alcohol rehab | + + + Encounter Details +--------+--------+ + + + | Date | Type | Department | Care Team | Description | +--------+--------+ + + + | 09/04/ | Refill | [facility] | Burton Masters, | Medication Refill; | | 2018 | | [facility] | [address] | Other (Drug/alcohol | | | | [address] | [place] | rehab) | | | | [place] | [address] | | | | | [address] | | | | | | [phone] | | | +--------+--------+ + + + [...] | | | Visit | | [address] [facility] [address] | | | | | | [place] | | | | | | [address] | | | | | | | | +--------+ + + + + | 03/18/ | Office | Physical Medicine | Jovana Dawson | | 2019 | Visit | and Rehabilitation | MELANY Man [address] | | | | | | [address] [facility] | | | | | | [address] [place] | | | | | | [address] | | | | | | | | +--------+ + + + + | 04/01/ | Appointment | Oncology | Deny Mcmanus, | | 2019 | | | [address] | | | | | | [address] [place] | | | | | | [place] [address] | | | | | | [phone] | | | | | | | | +--------+ + + + + | 04/08/ | Procedure | Physical Medicine | Leonard De Leon | | | 2019 | visit | and Rehabilitation | MD [address] | | | | | | [place] | | | | | | [address] | | | | | | | | +--------+ + + + + | 04/30/ | Office | Cardiology | Shad Saavedra, | | | 2019 | Visit | | MD [address] | | | | | | [place] | | | | | | [place] [address] | | | | | | [phone] | | | | | | | | +--------+ + + + + documented as of this encounter Visit Diagnoses Not on filedocumented in this encounter"
--- OUTSIDE RECORDS SUMMARY | ~2020-03-13 | XMS | Encounter Summary ---
Demographics + + + | Address | [address] | | | [place] [address] | + + + | Home Phone | | + + + | Preferred Language | Unknown | + + + | Marital Status | | + + + | Jainism Affiliation | Unknown | + + + | Race | Unknown | + + + | Ethnic Group | Unknown | + + + Author + + + | Author | [facility] | | | and [place] | + + + | Organization | [facility] | | [...] Team Providers + +------+ + | Care Commission Auditor Name | Role | Phone | + +------+ + | Burton Masters MD | PCP | | + +------+ + Encounter Details +--------+ + + + + | Date | Type | Department | Care Team | Description | +--------+ + + + + | 01/16/ | Hospital | [facility] | Dorota Beal | Twin , | | 2018 | Encounter | MED CTR ULTRASOUND | DO [address] | twins discordant, | | | | [address] | [address] | third trimester | | | | [place] | [place] [address] | | | | | [address] | [phone] | | | | | [phone] | | | | | | | Maria Elena Samuels | | | | | | No, Technologist | | | | | | [place] | | | | | | [address] | | +--------+ + + + + [...] | | | Visit | | [facility] [address] | | | | | | [place] | | | | | | [address] | | | | | | | | +--------+ + + + + | 03/18/ | Office | Physical Medicine | Jovana Dawson | | | 2019 | Visit | and Rehabilitation | MELANY Man [address] | | | | | | [address] | | | | | | [address] [place] | | | | | | [address] | | | | | | | | +--------+ + + + + | 04/01/ | Appointment | Oncology | Deny Mcmanus, | | | 2019 | | | [address] | | | | | | [place] | | | | | | [place] [address] | | | | | | [phone] | | | | | | | | +--------+ + + + + | 04/08/ | Procedure | Physical Medicine | Leonard De Leon | | | 2019 | visit | and Rehabilitation | MD Audelia [address] | | | | | | [place] | | | | | | [address] | | | | | | | | +--------+ + + + + | 04/30/ | Office | Cardiology | JoniejShad, | | | 2019 | Visit | | [address] | | | | | | [place], | | | | | | [place] [address] | | | | | | [phone] | | | | | | | | +--------+ + + + + documented as of this encounter Procedures + +--------+ + + + | Procedure Name | Priori | Date/Time | Associated Diagnosis | Comments | | | ty | | | | + +--------+ + + + | US BIOPHYSICAL | Routin | 01/16/2018 | Twin , | Results for this | | PROFILE W NON | e | 12:14 PM | twins discordant, | procedure are in the | | STRESS | | PDT | third trimester | results section. | + +--------+ + + + documented in this encounter Results US Biophysical Profile W NonStress (01/16/2018 12:14 PM PDT) + + | Specimen | + + | | + + + + + | Narrative | Performed At | + + + | US BIOPHYSICAL PROFILE W NON STRESS 01/16/2018 10:53 AM | [facility] | | HISTORY: Twin , twins discordant, third trimester. | | | COMPARISON: 01/08/2018 PROTOCOL: Babcock scale and Doppler images of | | | the fetus with transabdominal imaging. FINDINGS: Fetus A: | | | breathing movements: 2 Three gross body movements: 2 | | | tone (one episode): 2 Amniotic fluid volume (NEETU): 2 Biophysical | | | profile score: 8/8 position: Cephalic heart rate: 146 | | | bpm Placenta position: Anterior S/D ratio: 3.7, 3.7, and 2.6 | | | (normal =< 3.0 after 30 weeks) Fetus B: breathing | | | movements: 2 Three gross body movements: 2 tone (one episode): | | | 2 Amniotic fluid volume (NEETU): 2 Biophysical profile score: 8/8 | | | position: Cephalic heart rate: 143 bpm Placenta | | | position: Maternal right with mild heterogeneity and nodularity. S/D | | | ratio: 5.3, 5.8, 10.0 (normal =< 3.0 after 30 weeks) Cervical | | | length: 4.0 cm IMPRESSION - Biophysical profile score of 8/8 | | | for fetus A and fetus B. Asymmetrically elevated S/D ratio for | | | fetus B with mild heterogeneity and nodularity of the placenta. S/D | | | ratio is also elevated for fetus A. Notification: A | | | preliminary report was relayed to the ordering provider by the | | | geospatial information technologist immediately following the exam. Dictated | | | and Signed by: Tyshawn Newton MD Electronically signed: 01/16/2018 | | | 4:03 PM | | + + + + + | Procedure Note | + + | Ruben, Rad Results In - 01/16/2018 4:06 PM PDT US BIOPHYSICAL PROFILE W NON | | STRESS 01/16/2018 10:53 AM HISTORY: Twin , twins discordant, third | | trimester.COMPARISON: 01/08/2018PROTOCOL: Babcock scale and Doppler images of the fetus with | | transabdominalimaging.FINDINGS:Fetus A: breathing movements: 2Three gross body | | movements: 2Fetal tone (one episode): 2Amniotic fluid volume (NEETU): 2Biophysical profile | | score: 8/8Fetal position: CephalicFetal heart rate: 146 bpmPlacenta position: | | AnteriorS/D ratio: 3.7, 3.7, and 2.6 (normal =< 3.0 after 30 weeks)Fetus B: | | breathing movements: 2Three gross body movements: 2Fetal tone (one episode): 2Amniotic | | fluid volume (NEETU): 2Biophysical profile score: 8/8Fetal position: CephalicFetal heart | | rate: 143 bpmPlacenta position: Maternal right with mild heterogeneity and | | nodularity.S/D ratio: 5.3, 5.8, 10.0 (normal =< 3.0 after 30 weeks)Cervical length: 4.0 | | cmIMPRESSION -Biophysical profile score of 8/8 for fetus A and fetus B.Asymmetrically | | elevated S/D ratio for fetus B with mild heterogeneity andnodularity of the placenta. | | S/D ratio is also elevated for fetus A. Notification: A preliminary report was relayed | | to the ordering provider by theultrasound technologist immediately following the | | exam.Dictated and Signed by: Tyshawn Newton MD Electronically signed: 01/16/2018 4:03 | | PM | | | | position: Cephalic | | heart rate: 146 bpm | |Placenta position: Anterior | |S/D ratio: 3.7, 3.7, and 2.6 (normal =< 3.0 after 30 weeks) | | | | | |Fetus B: | | breathing movements: 2 | |Three gross body movements: 2 | | tone (one episode): 2 | |Amniotic fluid volume (NEETU): 2 | |Biophysical profile score: 8/8 | | | | position: Cephalic | | heart rate: 143 bpm | |Placenta position: Maternal right with mild heterogeneity and nodularity. | |S/D ratio: 5.3, 5.8, 10.0 (normal =< 3.0 after 30 weeks) | | | | | |Cervical length: 4.0 cm | | | | | |IMPRESSION - | |Biophysical profile score of 8/8 for fetus A and fetus B. | | | |Asymmetrically elevated S/D ratio for fetus B with mild heterogeneity and | |nodularity of the placenta. S/D ratio is also elevated for fetus A. | | | | | |Notification: A preliminary report was relayed to the ordering provider by the | |geospatial information technologist immediately following the exam. | | | |Dictated and Signed by: Tyshawn Newton MD | | Electronically signed: 01/16/2018 4:03 PM | + + + +---------+ + + | Performing | Address | City/State/Zipcode | Phone Number | | Organization | | | | + +---------+ + + | [facility] | | | | + +---------+ + + documented in this encounter Visit Diagnoses + + | Diagnosis | + + | Twin , twins discordant, third trimester | + + documented in this encounter"
--- OUTSIDE RECORDS SUMMARY | ~2020-03-13 | XMS | Encounter Summary ---
Demographics + + + | Address | [address] | | | [place] [address] | + + + | Home Phone [...] Team Providers + +------+ + | Care Biazzi Nitrator Operator Name | Role | Phone | + +------+ + | Burton Masters MD | PCP | | + +------+ + Reason for Visit + + + | Reason | Comments | + + + | Follow-up | post ablation | + + + Encounter Details +--------+---------+ + + + | Date | Type | Department | Care Team | Description | +--------+---------+ + + + | 09/30/ | Office | [facility] EP | Presley Bravo, | Orthostatic | | 2019 | Visit | CARDIOLOGY BRITTANIE | [address] | hypotension; Alcohol | | | | [address] | [place], [place] | use; Anxiety | | | | [place], [place] | [address] | | | | | [address] | | | | | | [phone] | | | +--------+---------+ + + + [...] + + + | Blood Pressure | 100/66 | 09/30/2019 1:39 PM | | | | | PST | | + + + + + | Pulse | 62 | 09/30/2019 1:39 PM | | | | | PST | | + + + + + | Temperature | - | - | | + + + + + | Respiratory Rate | - | - | | + + + + + | Oxygen Saturation | 99% | 09/30/2019 1:39 PM | | | | | PST | | + + + + + | Inhaled Oxygen | - | - | | | Concentration | | | | + + + + + | Weight | 81.6 kg (180 lb) | 09/30/2019 1:39 PM | | | | | PST | | + + + + + | Height | 172.7 cm (5' 8") | 09/30/2019 1:39 PM | | | | | PST | | + + + + + | Body Mass Index | 27.37 | 09/30/2019 1:39 PM | | | | | PST | | + + + + + documented in this encounter Patient Instructions Patient Instructions Burton Oscar FNP - 09/30/2019 2:00 PM PST- Take salt tab lets 1000mg twice per day - Avoid caffeine - Take clonidine 0.1 mg one tablet nightly for 1 week then as needed after that (PTSD) - Start magnesium oxide 400mg once per day - Learn relaxation techniques -Use calm maggie and use 5-10 min per dayElectronically signed by Presley Bravo MD at 09/30 2:38 PM PST documented in this encounter Progress Notes Presley Bravo MD - 09/30/2019 2:00 PM PSTFormatting of this note might be different fr om the original. ELECTROPHYSIOLOGY OUTPATIENT FOLLOW UP PATIENT NAME: Ashley Webb : 1985: AGE: 34 y.o. (home) : PRIMARY CARE: Burton Masters MD Plan EP PROBLEMS ADDRESSED AT TODAY'S VISIT Problem List Alcohol use Overview Went into alcohol detox center recently, and has not had any alcohol since August 28. Anxiety Overview She has significant anxiety. I've strongly encouraged her to get back into a regular rel axation program. Get the calm maggie on her cell phone. Orthostatic hypotension Overview She has significant orthostatic hypotension, with recurrent orthostatic lightheadedness a nd even syncope and presyncope. Symptoms have worsened since starting clonidine 1 month ago . She was in rehab program for alcoholism and has been treated with clonidine for PTSD. Espinosa s been taking 0.1 mg 3 times per day. She drinks 80 ounces of water per day and avoids caff einated products and alcohol. Does not salt her food. Recommendations: Increase the fluid and salt intake. Start with salt tablets 1000 mg 2-3 t imes per day , and increase the fluids to at least 96 and preferably 128 ounces per day. Ch aviva clonidine to 0.1 mg nightly and try weaning off of that after 1 week. (Only take it as needed) for anxiety. COMPREHENSIVE PROBLEM LIST Patient Active Problem List Diagnosis Date Noted Chronic myeloid leukemia (CML), BCR/ABL-positive (HCC) 01/10/2019 Priority: High Note Last Updated: 08/11/2019 CML was diagnosed in December 2017 and has been treated with chemotherapy(Imatinib). BCR /ABL positive CML. Orthostatic hypotension 09/30/2019 Note Last Updated: 10/05/2019 She has significant orthostatic hypotension, with recurrent orthostatic lightheadedness a nd even syncope and presyncope. Symptoms have worsened since starting clonidine 1 month ago . She was in rehab program for alcoholism and has been treated with clonidine for PTSD. Espinosa s been taking 0.1 mg 3 times per day. She drinks 80 ounces of water per day and avoids caff einated products and alcohol. Does not salt her food. Recommendations: Increase the fluid and salt intake. Start with salt tablets 1000 mg 2-3 t imes per day , and increase the fluids to at least 96 and preferably 128 ounces per day. Ch aviva clonidine to 0.1 mg nightly and try weaning off of that after 1 week. (Only take it as needed) for anxiety. Anxiety 09/30/2019 Note Last Updated: 10/05/2019 She has significant anxiety. I've strongly encouraged her to get back into a regular rel axation program. Get the calm maggie on her cell phone. SVT (supraventricular tachycardia) (HCC) 07/01/2019 Note Last Updated: 08/11/2019 She has had recurrent tachycardias with heart rates up to 227 bpm, for the past 7 years. The usual duration is just a few minutes. Recently enthesis March 05, 2019) she had a rapi d heart rate of 227 bpm associated with significant discomfort in she was treated in [facility] room with intravenous diltiazem. Sinus rhythm was [...] her to stop smoking. Alcohol use 01/02/2019 Note Last Updated: 10/05/2019 Went into alcohol detox center recently, and has not had any alcohol since August 28 19. Lumbar spondylosis 03/07/2017 Major depressive disorder, recurrent episode (HCC) 04/30/2013 Note Last Updated: 02/13/2019 Overview: stable on Depakote and Wellbutrin. Dx name changed by system update 07/28/2017 Overview: stable on Depakote and Wellbutrin. Dx name changed by system update 07/28/2017 Recommendations: - Take salt tablets 1000mg twice per day - Avoid caffeine - Take clonidine 0.1 mg one tablet nightly for 1 week then as needed after that (PTSD) - Start magnesium oxide 400mg once per day - Learn relaxation techniques -Use calm maggie and use 5-10 min per day HISTORY OF PRESENT ILLNESS This patient returns today, complaining of significant orthostatic lightheadedness, presync ope, and syncope. She recently went to an alcohol rehab program and was started on clonidin e. That correlates with her lightheaded spells. She has not had any alcohol. She drinks 8 0 ounces of water per day and avoids caffeinated products. Does not salt her food. No symp toms of inappropriate tachycardias have occurred. Her heart rate does increase when she sta nds up. There have been no symptoms of angina or CHF. Recent blood test showed that she wa s not anemic. She is still smoking but plans to quit in the future. Does not want to quit cigarettes and alcohol at the same time. Allergies Allergen Reactions Tape [Adhesive & Tape] Rash Current Medications Current Outpatient Medications: buPROPion (WELLBUTRIN) 100 mg tablet, Take 1 tablet by mouth 2 times daily., Disp: 90 tablet, Rfl: 1 cloNIDine (CATAPRES) 0.1 mg tablet, 1 tablet by mouth every 6 hours as needed., Disp: 60 tablet, Rfl: 2 diphenoxylate-atropine (LOMOTIL) 2.5-0.025 mg per tablet, Take 2 tablets for diarrhea, then one tablet every 2 hours as needed., Disp: 50 tablet, Rfl: 1 hydrOXYzine hydrochloride (ATARAX) 25 mg tablet, Take 1-2 tablets every 6 hours., Disp : 60 tablet, Rfl: 2 imatinib (GLEEVEC) 400 mg tablet, Take 400 mg by mouth Daily., Disp: , Rfl: lamoTRIgine (LAMICTAL) 25 mg tablet, Take 1 tablet by mouth Daily., Disp: 90 tablet, R fl: 1 loperamide (IMODIUM A-D) 2 MG tablet, 2 tablets by mouth followed by 1 tablet by mouth after each loose stool; Max 16 mg/day, Disp: 50 tablet, Rfl: 1 nortriptyline (PAMELOR) 25 mg capsule, Take 1 capsule by mouth nightly., Disp: 30 caps ule, Rfl: 0 ondansetron (ZOFRAN) 8 MG tablet, Take 1 tablet by mouth every 8 hours as needed for N ausea., Disp: 90 tablet, Rfl: 2 oxyCODONE (ROXICODONE) 5 mg tablet, Take 1.5 tablets by mouth every 8 hours as needed for Pain., Disp: 90 tablet, Rfl: 0 prochlorperazine 10 mg tablet, Take 1 tablet by mouth every 8 hours as needed., Disp: 90 tablet, Rfl: 2 raNITIdine (ZANTAC) 150 mg tablet, Take 1 tablet by mouth Daily., Disp: , Rfl: The past history, social history, family history and problem list were reviewed and update d with changes of any significance. DATA Laboratory values which I reviewed 10/05/2019 are as follows: Lab Results Component Value Date WBC 5.25 08/12/2019 RBC 3.78 08/12/2019 HGB 13.9 08/12/2019 HCT 40.0 08/12/2019 PLT 121 (L) 08/12/2019 Lab Results Component Value Date NA 145 08/12/2019 K 3.5 08/12/2019 CL 114 (H) 08/12/2019 CO2 21 (L) 08/12/2019 ANIONGAP 14 08/12/2019 BUN 9 08/12/2019 EGFR >60 08/12/2019 Lab Results Component Value Date CHOL 131 (L) 01/27/2011 TRIG 86 01/27/2011 LDL 69 01/27/2011 Lab Results Component Value Date BNP 40 03/05/2019 TSH 1.48 03/05/2019 ROS I have personally reviewed and agree with ROS listed by WES pozo. All other systems are reviewed and negative. PHYSICAL EXAM BP 100/66 | Pulse 62 | Ht 1.727 m (5' 8") | Wt 81.6 kg (180 lb) | SpO2 99% | BMI 27.37 kg/m Physical Exam Constitutional: She is oriented to person, place, and time. She appears well-developed and well-nourished. No distress. Pleasant, somewhat anxious lady who looks older than her stated age. HENT: Head: Normocephalic and atraumatic. Eyes: Pupils [...] no tenderness. There is no guarding. Musculoskeletal: General: No tenderness or edema. Neurological: She is alert and oriented to person, place, and time. Skin: Skin is warm and dry. She is not diaphoretic. Psychiatric: She has a normal mood and affect. Her behavior is normal. Judgment and thought content normal. Vitals reviewed. Presley Bravo MD 10/05/2019 1:20 PM *This report has been prepared using a voice recognition system. The report was reviewed f or accuracy, however, sound-alike word errors, addition and/or deletions may occur. If there is any question about this report please contact me. Patient Instructions - Take salt tablets 1000mg twice per day - Avoid caffeine - Take clonidine 0.1 mg one tablet nightly for 1 week then as needed after that (PTSD) - Start magnesium oxide 400mg once per day - Learn relaxation techniques -Use calm maggie and use 5-10 min per day Latia Steele, Nuclear Scientist - 09/30/2019 2:00 PM Fred HARVEY Note- Electrophysiology Patient ID: is a No on File. unspecified sex. Review of Systems Constitutional: Positive for malaise/fatigue. Negative for chills, fever and weight loss. HENT: Positive for congestion. Negative for sore throat. Respiratory: Positive for cough and shortness of breath. Cardiovascular: Positive for chest pain and palpitations. Negative for leg swelling. Gastrointestinal: Negative for abdominal pain and blood in stool. Genitourinary: Negative for hematuria. Neurological: Positive for dizziness and weakness. Negative for loss of consciousness. Have you ever had a sleep study? (NO) Do you use oxygen? (NO) Do you use CPAP? (NO) Do you snore? (NO) Do you fall asleep for no reason during the day? (NO) Do you stop breathing at night? (NO) Do you feel excessively tired during the day? (YES) documented in this encounter Plan of Treatment +--------+ + + + + | Date | Type | Specialty | Care Team | Description | +--------+ + + + + | 03/17/ | Virtual | Neurosurgery | Zuhair Flores | | | 2019 | Office | | MD Kiki Y[address] W | | | | Visit | | [address] [place] [address] | | | | | | [place] | | | | | | [address] | | | | | | | | +--------+ + + + + | 03/18/ | Office | Physical Medicine | Jovana Dawson | | | 2019 | Visit | and Rehabilitation | MELANY Man [address] | | | | | | [facility] | | | | | | [address] [place] | | | | | | [id number] | | | | | | | | +--------+ + + + + | 04/01/ | Appointment | Oncology | Deny Mcmanus, | | | 2019 | | | [address] | | | | | | [place], | | | | | | [place] [address] | | | | | | [phone] | | | | | | | | +--------+ + + + + | 04/08/ | Procedure | Physical Medicine | Leonard De Leon | | | 2019 | visit | and Rehabilitation | T, [address] | | | | | | [place] | | | | | | [address] | | | | | | | | +--------+ + + + + | 04/30/ | Office | Cardiology | Shad Saavedra, | | | 2019 | Visit | | [address] | | | | | | [place], | | | | | | [place] [address] | | | | | | [phone] | | | | | | | | +--------+ + + + + documented as of this encounter Visit Diagnoses + + | Diagnosis | + + | Orthostatic hypotension | + + | Alcohol use Other problems related to lifestyle | + + | Anxiety Anxiety state, unspecified | + + documented in this encounter
--- OUTSIDE RECORDS SUMMARY | ~2020-03-13 | XMS | Encounter Summary ---
Demographics + + + | Address | [address] | | | [place] [address] | + + + | Home Phone | | + + + | Preferred Language | Unknown | + + + | Marital Status | Single | + + + | Lutheran Affiliation | NON | + + + | Race | White | + + + | Ethnic Group | Not or | + + + Author + + + | Author | [facility] | + + + | Organization | [facility] | + + + | [...] Team Providers + +------+ + | Care Jet Engine Mechanic Name | Role | Phone | + +------+ + | Burton Masters MD | PCP | | + +------+ + Reason for Visit + + + | Reason | Comments | + + + | Contrast Allergy | on instructions on how to take imabtinib. | | Clarification | | + + + Encounter Details +--------+ + + + + | Date | Type | Department | Care Team | Description | +--------+ + + + + | 12/18/ | Telephone | [facility] | Jalen Moore, | Contrast Allergy | | 2020 | | [facility] | MD [address] | Clarification (on | | | | [facility] | [place], [place] | instructions on how | | | | for Health and | [id number] | to take imabtinib.) | | | | [facility] [address] | [phone] | | | | | [place], [place] | | | | | | [address] | | | | | | [phone] | | | +--------+ + + + [...] [address] | | | | | | [place], [place] | | | | | | [address] | | | | | | [phone] | | | | | | | | +--------+---------+ + + + documented as of this encounter Visit Diagnoses Not on filedocumented in this encounter"
--- OUTSIDE RECORDS SUMMARY | ~2020-03-13 | XMS | Encounter Summary ---
Demographics + + + | Address | [address] [address] | | | [place] [address] | + + + | Home Phone | | + + + | Preferred Language | Unknown | + + + | Marital Status | | + + + | Advent Affiliation | Unknown | + + + | Race | Unknown | + + + | Ethnic Group | Unknown | + + + Author + + + | Author | [facility] | | | and [place] | + + + | Organization | [facility] | | [...] + +------+ + | Care Director Of Flight Operations Name | Role | Phone | + [...] | | | | BCR/ABL-posi | [address] | [place], | | | | | [place] in | [place], | [place] [address] | | | | | relapse | [place] | Phone: | | | | | (HCC) | [address] | [phone] | | | | | Chronic | Phone: | Fax: | | | | | myeloid | [phone] | [phone] | | | | | leukemia, | Fax: | | | | | | BCR/ABL-posi | [phone] | | | | | | tive, not | | | | | | | having | | | | | | | achieved | | | | | | | remission | | | | | | | (HCC) | | | | | | | Procedures | | | | | | | [place] OFFICE | | | | | | | OUTPATIENT | | | | | | | VISIT 25 | | | | | | | MINUTES | | | | | | | [id number] | | | +--------+--------+ + + + + Encounter Details +--------+ + + + + | Date | Type | Department | Care Team | Description | +--------+ + + + + | 01/22/ | [facility] | [facility] | Deny Mcmanus, | Chronic myeloid | | 2019 | Encounter | [facility] | MD [facility] [address] | leukemia, | | | | [facility] [address] [place], | BCR/ABL-positive, | | | | [place] | [place] [address] | not having achieved | | | | [place] [address] | [phone] | remission (HCC) | | | | [phone] | | (Primary Dx); Lumbar | | [...] + + + | Blood Pressure | 130/84 | 01/22/2019 3:52 PM | | | | | PDT | | + + + + + | Pulse | 78 | 01/22/2019 3:52 PM | | | | | PDT | | + + + + + | Temperature | 36.8 C (98.3 F) | 01/22/2019 3:52 PM | | | | | PDT | | + + + + + | Respiratory Rate | 16 | 01/22/2019 3:52 PM | | | | | PDT | | + + + + + | Oxygen Saturation | 97% | 01/22/2019 3:52 PM | | | | | PDT | | + + + + + | Inhaled Oxygen | - | - | | | Concentration | | | | + + + + + | Weight | 83.2 kg (183 lb 6.8 | 01/22/2019 3:52 PM | | | | oz) | PDT | | + + + + + | Height | - | - | | + + + + + | Body Mass Index | 27.9 | 01/16/2019 9:34 AM | | | [...] encounter Progress Notes Deny Mcmanus MD - 01/22/2019 3:37 PM PDTFormatting of this note might be different fr om the original. Hematology-Oncology Progress Note [facility] Pt. Name/Age/: Ashley Webb 34 y.o. 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 Assessment and plan: Patient's white count almost normal, platelets also normalized, approaching a hematologic r emission. Obvious tolerating dasatinib relatively well, recommended continuation of the alethea e regimen. Also reviewed the means by which we will assess molecular remission in the futur e. 1. Continue dasatinib twice daily. 2. Recheck with lab in 2 3 weeks. Subjective: The patient chart and medications were reviewed in detail and the patient was seen and exam ined. Ashley Webb is a 34 y.o. female with CML here for follow-up. Patient continues to take dasatinib twice daily. No fevers or drenching sweats, still some what fatigued. Some nausea relief with either Zofran or smoking marijuana, but still not mu ch appetite. No bleeding. Chronic pains unchanged. PMH: Past Medical History: Diagnosis Date Abdominal [...] use Social & Family Hx: Social History Social History Marital status: Spouse name: N/A Number of children: 3 Years of education: 15 Occupational History [employer] Social History Main Topics Smoking status: Current Every Day Smoker Packs/day: 1.00 Years: 16.00 Types: Cigarettes Start date: 03/03/2001 Smokeless tobacco: Never Used Comment: Currently at 1/2 pack per day Alcohol use 0.0 oz/week Comment: None at this time. Drug use: No Sexual activity: Yes Other Topics Concern Not on file Social History Narrative Merged History Encounter Family [...] Review of Systems: REVIEW OF SYSTEMS Constitutional: Reports energy level is low. Nausea continues, zofran helpful. Down 2 kg si nce 01/16/19. Appetite is somewhat low, but eating about 2 meals per day, has early satiety. Denies high fevers, shaking chills, anorexia, vomiting, or night sweats. Ear, Nose, Mouth, Throat: Denies odynophagia, dysphagia, or tinnitus. Cardiovascular: Reports dyspnea with exertion continues. Reports occasional twinges of ches t pain, relates this to anxiety. Denies shortness of breath, palpitations or orthopnea. Respiratory: Reports cough with clear sputum production continues. Denies hemoptysis Gastrointestinal: Denies abdominal pain, constipation, diarrhea, melena, or bright red bloo d per rectum. Genitourinary: Denies hematuria or dysuria. Musculoskeletal: Reports generalized joint pain and back pain continues. Neurologic: Headaches continue daily, states improving slightly. Denies visual changes, or numbness/tingling of the extremities. Endocrine: Denies peripheral edema or heat/cold intolerance. Hematologic: Bruises occasionally. Denies spontaneous bleeding. Integumentary: Denies rash, wounds or other skin concerns. Pain: 5/10 generalized pain. Tolerable. Note: Here for follow up and labs. My chart: Active Medications: Current Outpatient Prescriptions Medication Sig ALPRAZolam (XANAX) 0.25 mg tablet [...] Reactions Tape [Adhesive & Tape] Vitals: Temp: 36.8 C (98.3 F) BP: 130/84 Pulse: 78 Resp: 16 SpO2: 97 % on Temp :Temp Av.8 C (98.3 F) Min: 36.8 C (98.3 F) Max: 36.8 C (98.3 F) Wt. Current: Weight: 83.2 kg (183 lb 6.8 oz) Physical Exam: Exam: ECOG Performance Status: 1 2 General: The patient is alert and oriented. No acute distress. Psychiatric: Normal mood and affect. Appropriate. Diagnostic studies: Available data and image reports were reviewed personally. See reports. Significant resul ts and findings are addressed here or in the Assessment and Plan. Recent Labs Component Latest Ref Rng & Units 01/11/2019 01/22/2019 1037 1526 WBC 4.0 - 11.0 K/uL 63.3 (HH) 13.8 (H) RBC COUNT 3.70 - 5.20 M/uL 4.12 4.22 Hemoglobin 11.5 - 16.0 g/dL 13.0 13.1 Hct, Final 34.0 - 47.0 % 38.9 40.3 MCV 83.0 - 101.0 fL 94.4 95.5 MCH 28.0 - 35.0 pg 31.6 31.0 MCHC 32.0 - 36.0 g/dL 33.4 32.5 RDW-CV <15.0 % 16.0 (H) 16.8 (H) RDW-SD 35.1 - 46.3 fL 54.5 (H) 57.4 (H) Platelet Count 140 - 440 K/uL 690 (H) 263 MPV 6.5 - 12.4 fL 10.7 9.9 % Neutrophils 45.0 - 82.0 % 47.2 64.8 % Lymphocytes 20.0 - 45.0 % 9.7 (L) 26.7 % Monocytes 4.0 - 12.0 % 2.9 (L) 2.0 (L) % Eosinophils 0.0 - 5.0 % 1.4 1.7 % Basophils 0.0 - 1.0 % 6.5 (H) 2.6 (H) % Immature Granulocytes 0.0 - 0.4 % 32.3 (H) 2.2 (H) Absolute Neutrophils 1.80 - 8.50 K/uL 29.85 (H) 8.94 (H) Absolute Lymphocytes 0.60 - 3.20 K/uL 6.11 (H) 3.68 (H) Absolute Monocytes 0.00 - 1.00 K/uL 1.83 (H) 0.27 Absolute Eosinophils 0.00 - 0.40 K/uL 0.91 (H) 0.24 Absolute Basophils 0.00 - 0.10 K/uL 4.11 (H) 0.36 (H) Absolute Immature Granulocytes 0.00 - 0.03 K/uL 20.46 (H) 0.31 (H) % nRBC 0 - 2 per 100 WBC's 0 1 Absolute nRBC 0.00 - 0.01 K/uL 0.16 (H) 0.10 (H) Recent Labs Lab 01/22/19 1526 NA 140 K 3.6 CL 107 CO2 25 BUN 19 CREA 0.90 GLU 73 CALCIUM 9.3 BILITOT 0.6 AST 23 ALT 27 ALKPHOS 74 ALBUMIN 4.3 Electronically signed by: Deny Mcmanus MD 01/22/2019 16:12 CC: Burton Masters MD Total time in face to face discussion with the patient and family was 15 minutes; more than 50% of the time was spent in counseling and coordination of care. Portions of this chart may have been created with [email or web address] voice recognition software. Occasi onal wrong-word or [...] [address] | | | | | | [place] | | | | | | [address] | | | | | | | | +--------+ + + + + | 03/18/ | Office | Physical Medicine | Jovana Dawson | | | 2019 | Visit | and Rehabilitation | MELANY Man [address] | | | | | | [address] [facility] [facility] | | | | | | [address] [place] | | | | | | [address] | | | | | | | | +--------+ + + + + | 04/01/ | Appointment | Oncology | Deny Mcmanus, | | | 2019 | | | [address] | | | | | | [place], | | | | | | [place] [address] | | | | | | [phone] | | | | | | | | +--------+ + + + + | 04/08/ | Procedure | Physical Medicine | Leonard De Leon | | | 2019 | visit | and Rehabilitation | [place], [address] | | | | | | [facility], [place] | | | | | | [address] | | | | | | | | +--------+ + + + + | 04/30/ | Office | Cardiology | Shad Saavedra, | | | 2019 | Visit | | [address] | | | | | | [place], | | | | | | [place] [address] | | | | | | [phone] | | | | | | | | +--------+ + + + + documented as of this encounter Procedures + +--------+ + + + | Procedure Name | Priori | Date/Time | Associated Diagnosis | Comments | | | ty | | | | + +--------+ + + + | SLIDE REVIEW, | Routin | 01/22/2019 | Chronic myeloid | Results for this | | PERIPHERAL SMEAR | e | 3:26 PM | leukemia, | procedure are in the | | | | PDT | BCR/ABL-positive, | results section. | | | | | not having achieved | | | | | | remission (HCC) | | + +--------+ + + + | CBC WITH | STAT | 01/22/2019 | Chronic myeloid | Results for this | | DIFFERENTIAL | | 3:26 PM | leukemia, | procedure are in the | | | | PDT | BCR/ABL-positive, | results section. | | | | | not having achieved | | | | | | remission (HCC) | | + +--------+ + + + | COMPREHENSIVE | STAT | 01/22/2019 | Chronic myeloid | Results for this | | METABOLIC PANEL | | 3:26 PM | leukemia, | procedure are in the | | | | PDT | BCR/ABL-positive, | results section. | | | | | not having achieved | | | | | | remission (HCC) | | + +--------+ + + + documented in this encounter Results Comprehensive Metabolic Panel (02/13/2019 10:23 AM PDT) [...] 3 | 3 - 16 mmol/L | [facility] | | | | | | [facility] | | | | | | [facility] | | | | | | CENTER - | | | | | | LABORATORY | | + +---------+ + + + | Glucose | 83 | 60 - 106 mg/dL | [facility] [...] | | | | | mL/min/1.73m2 | [facility] | | | [facility] | | | [facility]ICAL | | | [...] [address] | [place] | [phone] | | [facility] | | [address] | | | - LABORATORY | | [...] ranges: Trim. Absolute (K/uL) Percentage (%) | [facility] | | 1st 0.003-0.091 K/uL 0.0-0.9% 2nd 0.007-0.247 K/uL | [facility] | | 0.1-2.0% [facility] 0.018-0.456 K/uL 0.1-2.0% | - LABORATORY | + + + + + + + + | Performing | Address | City/State/Zipcode | Phone Number | | Organization | | | | + + + + + | [facility] | [address] | [place], [place] | [phone] | | [facility] | | [address] | | | - LABORATORY | | | | + + + + + Slide Review, Peripheral Smear (01/22/2019 3:26 PM PDT) + + + + + + | Component | Value | Ref Range | Performed | Pathologist | | | | | At | Signature | + + + + + + | RBC | Normal | | [facility] | | | Morphology | | | [facility] | | | | | | MEDICAL | | | | | | CENTER - | | | | | | LABORATORY | | + + + + + + | WBC | Normal | | [facility] | | | Morphology | | | [facility] | | | | | | MEDICAL | | | | | | CENTER - | | | | | | LABORATORY | | + + + + + + | Platelet | Adequate | Adequate | [facility] | | | Estimate | | | [facility] | | [...] + | [facility] | [address] | [place] | [phone] | | [facility] | | [address] | | | - LABORATORY | | | | + + + + + CBC with Differential (01/22/2019 3:26 PM PDT) + + + + + + | Component | Value | Ref Range | Performed | Pathologist | | | | | At | Signature | + + + + + + | WBC | 13.8 (H) | 4.0 - 11.0 K/uL | [facility] | | | | | | [facility] | [facility] | [facility] | | | | | | [facility] - | | | | | | LABORATORY | | + + + + + + | RBC | 4.22 | 3.70 - 5.20 | [facility] | | | | | M/uL | [facility] | | [facility] | | | [facility] | | | | | | CENTER - | | | | | | LABORATORY | | + + + + + + | Hemoglobin | 13.1 | 11.5 - 16.0 | [facility] | | | | | g/dL | [facility] | | | | | | [facility] | | | | | | CENTER - | | | | | | LABORATORY | | + + + + + + | Hematocrit | 40.3 | 34.0 - 47.0 % | [facility] | | | | | | [facility] | | | | | | [facility] | | | | | | CENTER - | | | | | | LABORATORY | | + + + + + + | MCV | 95.5 | 83.0 - 101.0 fL | [facility] | | | | | | [facility] | | | | | | MEDICAL | | | | | | CENTER - | | | | | | LABORATORY | | + + + + + + | MCH | 31.0 | 28.0 - 35.0 pg | [facility] | | | | | | [facility] | | | | | | MEDICAL | | | | | | CENTER - | | | | | | LABORATORY | | + + + + + + | MCHC | 32.5 | 32.0 - 36.0 | [facility] | | | | | g/dL | [facility] | | | | | | MEDICAL | | | | | | CENTER - | | | | | | LABORATORY | | + + + + + + | RDW-CV | 16.8 (H) | <15.0 % | [facility] | | | | | | [facility] | | | | | | MEDICAL | | | | | | CENTER - | | | | | | LABORATORY | | + + + + + + | RDW-SD | 57.4 (H) | 35.1 - 46.3 fL | [facility] | | | | | | [facility] | | | | | | MEDICAL | | | | | | CENTER - | | | | | | LABORATORY | | + + + + + + | Platelet | 263 | 140 - 440 K/uL | [facility] | | | Count | | | [facility] | | | | | | MEDICAL | | | | | | CENTER - | | | | | | LABORATORY | | + + + + + + | MPV | 9.9 | 6.5 - 12.4 fL | [facility] | | | | | | [facility] | | | | | | MEDICAL | | | | | | CENTER - | | | | | | LABORATORY | | + + + + + + | % | 64.8 | 45.0 - 82.0 % | [facility] | | | Neutrophils | | | [facility] | | | | | | MEDICAL | | | | | | CENTER - | | | | | | LABORATORY | | + + + + + + | % | 26.7 | 20.0 - 45.0 % | [facility] | | | Lymphocytes | | | [facility] | | | | | | MEDICAL | | | | | | CENTER - | | | | | | LABORATORY | | + + + + + + | % Monocytes | 2.0 (L) | 4.0 - 12.0 % | [facility] | | | | | | [facility] | | | | | | MEDICAL | | | | | | CENTER - | | | | | | LABORATORY | | + + + + + + | % | 1.7 | 0.0 - 5.0 % | [facility] | | | Eosinophils | | | [facility] | | | | | | MEDICAL | | | | | | CENTER - | | | | | | LABORATORY | | + + + + + + | % Basophils | 2.6 (H) | 0.0 - 1.0 % | [facility] | | | | | | [facility] | | | | | | MEDICAL | | | | | | CENTER - | | | | | | LABORATORY | | + + + + + + | % Immature | 2.2 (H)Comment: | 0.0 - 0.4 % | [facility] | | | Granulocyte | Preliminary studies have | | [facility] | | | s | indicated the IG% | | MEDICAL | | | | and/or IG# show promise | | CENTER - | | | | as an early screen for | | LABORATORY | | | | infection. For | | | | | | patients, use the | | | | | | special reference ranges | | | | | | listed below. | | | | + + + + + + | Absolute | 8.94 (H) | 1.80 - 8.50 | [facility] | | | Neutrophils | | K/uL | [facility] | | | | | | MEDICAL | | | | | | CENTER - | | | | | | LABORATORY | | + + + + + + | Absolute | 3.68 (H) | 0.60 - 3.20 | [facility] | [...] + + + + | Absolute | 0.24 | 0.00 - 0.40 | [facility] | | | Eosinophils | | K/uL | [facility] | | | | | | MEDICAL | | | | | | CENTER - | | | | | | LABORATORY | | + + + + + + | Absolute | 0.36 (H) | 0.00 - 0.10 | [facility] | | | Basophils | | K/uL | [facility] | | | | | | MEDICAL | | | | | | CENTER - | | | | | | LABORATORY | | + + + + + + | Absolute | 0.31 (H)Comment: For | 0.00 - 0.03 | [facility] | | | Immature | patients, use | K/uL | [facility] | | | Granulocyte | the special reference | | MEDICAL | | | s | ranges listed below. | | CENTER - | | | | | | LABORATORY | | + + + + + + | % nRBC | 1 | 0 - 2 per 100 | [facility] | | | | | WBC's | [facility] | | | | | | MEDICAL | | | | | | CENTER - | | | | | | LABORATORY | | + + + + + + | Absolute | 0.10 (H)Comment: | 0.00 - 0.01 | [facility] | | | nRBC | Presence of any NRBC's | K/uL | [facility] | | | | in adults is clinically | | MEDICAL | | | | significant | | CENTER - | | | [...] 1st 0.003-0.091 K/uL 0.0-0.9% 2nd 0.007-0.247 K/uL [facility] | | 0.1-2.0% [facility] 0.018-0.456 K/uL 0.1-2.0% | - LABORATORY | + + + + + + + + | Performing | Address | City/State/Zipcode | Phone Number | | Organization | | | | + + + + + | [facility] | [address] | [place] | [phone] | | [facility] | | [address] | | | - LABORATORY | | | | + + + + + Comprehensive Metabolic Panel (01/22/2019 3:26 PM PDT) + +---------+ + + + | Component | Value | Ref Range | Performed | Pathologist | | | | | At | Signature | + +---------+ + + + | Na | 140 | 136 - 145 | [facility] | | | | | mmol/L | [facility] | | | | | | MEDICAL | | | | | | CENTER - | | | | | | LABORATORY | | + +---------+ + + + | K | 3.6 | 3.4 - 5.1 | [facility] | | | | | mmol/L | [facility] | | | | | | MEDICAL | | | | | | CENTER - | | | | | | LABORATORY | | + +---------+ + + + | Cl | 107 | 98 - 107 mmol/L | [facility] [...] + + + | Anion Gap | 8 | 3 - 16 mmol/L | [facility] | | | | | | [facility] | | | | | | MEDICAL | | | | | | CENTER - | | | | | | LABORATORY | | + +---------+ + + + | Glucose | 73 | 60 - 106 mg/dL | [facility] | | | | | | [facility] | | | | | | MEDICAL | | | | | | CENTER - | | | | | | LABORATORY | | + +---------+ + + + | BUN | 19 | 9 - 23 mg/dL | [facility] | | | | | | [facility] | | | | | | MEDICAL | | | | | | CENTER - | | | | | | LABORATORY | | + +---------+ + + + | Creatinine | 0.90 | 0.55 - 1.02 | [facility] | [...] mL/min/1.73m2 | [facility] | | | [facility] | | | MEDICAL | | | | | | CENTER - | | | | | | LABORATORY | | + +---------+ + + + | Calcium | 9.3 | 8.7 - 10.4 | [facility] | | | | | mg/dL | [facility] | | | | | | [facility]ICAL | | | | | | CENTER - | | | | | | LABORATORY | | + +---------+ + + + | Albumin | 4.3 | 3.2 - 4.8 g/dL | [facility] | | | | | | [facility] | | | | | | [facility] | | | | | | CENTER - | | | | | | LABORATORY | | + +---------+ + + + | Bilirubin | 0.6 | 0.3 - 1.2 mg/dL | [facility] | | | Total | | | [facility] | | | | | | MEDICAL | | | | | | CENTER - | | | | | | LABORATORY | | + +---------+ + + + | Total | 5.9 | 5.7 - 8.2 g/dL | [facility] | | | Protein | | | [facility] | | | | | | MEDICAL | | | | | | CENTER - | | | | | | LABORATORY | | + +---------+ + + + | AST | 23 | 0 - 34 U/L | [facility] | | | | | | [facility] | | | | | | MEDICAL | | | | | | CENTER - | | | | | | LABORATORY | | + +---------+ + + + | ALT | 27 | 10 - 49 U/L | [facility] | | | | | | [facility] | | | | | | MEDICAL | | | | | | CENTER - | | | | | | LABORATORY | | + +---------+ + + + | Alkaline | 74 | 46 - 116 U/L | [facility] | | | Phosphatase | | | [facility] | | | | | | MEDICAL | | | | | | CENTER - | | | | | | LABORATORY | | + +---------+ + + + | Globulin | 1.6 (L) | 2.1 - 3.8 g/dL | [facility] | | | | | | [facility] | | | | | | MEDICAL | | | | | | CENTER - | | | | | | LABORATORY | | + +---------+ + + + | Albumin/Simona | 2.7 (H) | 0.8 - 1.9 | [facility] | | | bulin Ratio | | | [facility] | | | | | | MEDICAL | | | | | | CENTER - | | | | | | LABORATORY | | + +---------+ + + + | BUN/Creatin | 21.1 | | [facility] | | | ine [...] [facility] | [address] | [place], [place] | [phone] | | [facility] | | [address] | | | - LABORATORY | | [...]
--- OUTSIDE RECORDS SUMMARY | ~2020-03-13 | XMS | Encounter Summary ---
Demographics + + + | Address | [address] | | | [place] [address] | + + + | Home Phone | | + + + | Preferred Language | Unknown | + + + | Marital Status | | + + + | Protestant Affiliation | Unknown | + + + | Race | Unknown | + + + | Ethnic Group | Unknown | + + + Author + + + | Author | [facility] | | | and [place] | + + + | Organization | [facility] | | | [...] Team Providers + +------+ + | Care Organ Pipe Voicer Name | Role | Phone | + [...] | | | | SVT | MD Shira | [address] | | | | | (supraventri | [address] | [place], | | | | | cular | [address] | [place] | | | | | tachycardia) | [place], | [address] | | | | | (HCC) | [place] [address] | Phone: | | | | | Procedures | Phone: | [phone] | | | | | ECHO | [phone] | Fax: | | | | | Complete | Fax: | [phone] | | | | | | [phone] | | +--------+--------+ + + + + Evaluate & Treat (Urgent) +--------+ + + + + + | Status | Reason | Specialty | Diagnoses / | Referred By | Referred To | | | | | Procedures | Contact | Contact | +--------+ + + + + + | Denied | Specialty | Cardiology | Diagnoses | Keri, | José, | | | Services | | SVT | MD Shira | Kendrick Greer MD | | | Required | | (supraventri | [address] | [address] | | | | | cular | [address] | [address] | | | | | tachycardia) | [place], | [address], | | | | | ([facility]) | [place] [address] | [place] [address] | | | | | | Phone: | Phone: | | | | | | [phone] | [phone] | | | | | | Fax: | Fax: | | | | | | [phone] | [phone] | +--------+ + + + + + Reason for Visit + + + | Reason | Comments | + + + | New Patient | SVT | + + + Evaluate & Treat (Routine) +--------+ + + + + + | Status | Reason | Specialty | Diagnoses / | Referred By | Referred To | | | | | Procedures | Contact | Contact | +--------+ + + + + + | Closed | Specialty | Cardiology | Diagnoses | Aguilar, | [facility] | | | Services | | SVT | Arthur | Cardiology | | | Required | | (supraventri | Edward | [address] | | | | | cular | MD Duane | [place], | | | | | tachycardia) | [address] | [place] | | | | | (HCC) | [place] | [address] | | | | | | [place], [place] | Phone: | | | | | | [address] | [phone] | | | | | | Phone: | Fax: | | | | | | [phone] | [phone] | | | | | | Fax: | | | | | | | [phone] | | +--------+ + + + + + Encounter Details +--------+---------+ + + + | Date | Type | Department | Care Team | Description | +--------+---------+ + + + | 07/04/ | Office | [facility] | Shira Saavedra, | SVT | | 2019 | Visit | CARDIOLOGY [address] | MD [address] | (supraventricular | | | | [address] [place], | [place], | tachycardia) (HCC) | | | | [place] [address] | [place] [address] | (Primary Dx) | | | | [phone] | [phone] | | | | | | | [...] + + + | Blood Pressure | 110/90 | 07/04/2019 10:40 AM | | | | | PDT | | + + + + + | Pulse | 78 | 07/04/2019 10:40 AM | | | | | PDT | | + + + + + | Temperature | - | - | | + + + + + | Respiratory Rate | 18 | 07/04/2019 10:40 AM | | | | | PDT | | + + + + + | Oxygen Saturation | - | - | | + + + + + | Inhaled Oxygen | - | - | | | Concentration | | | | + + + + + | Weight | 78.5 kg (173 lb 1 | 07/04/2019 10:40 AM | | | | oz) | PDT | | + + + + + | Height | 172.7 cm (5' 8") | 07/04/2019 10:40 AM | | | | | PDT | | + + + + + | Body Mass Index | 26.31 | 07/04/2019 10:40 AM | | | | | PDT | | + + + + + documented in this encounter Patient Instructions Patient Instructions Emma Molina RN - 07/04/2019 10:[address] [place], they will call you to schedule. Echo: Date: Check-In Time: Where to Check In: Follow up appointment: 3 Months Provider: Shira Saavedra MD Date: Check-In Time: documented in this encounter Progress Notes Shira Saavedra MD - 07/04/2019 10:30 AM PDTFormatting of this note might be different f rom the original. PATIENT NAME: Ashley Webb : 1985: AGE: 34 y.o. REFERRED BY: Arthur Zepeda Pa* PRIMARY CARE: Burton Masters MD NEW PATIENT OFFICE VISIT Date of Service: 07/04/19 HISTORY OF PRESENT ILLNESS: Ashley Webb is a 34 y.o. female with a history of smoking, chronic myeloid leukemia an d anxiety. She is being seen today for paroxsymal supraventricular tachycardia. Patient was in her usual state of health until 03/05/2019, she was seen at [place] emerge n[facility] department for supraventricular tachycardia seen, heart rate of 220 bpm by Arthur Aguilar MD. She mentions at this time she was at home watching TV. Patient waited for an hour until she finally came to ER. She was given adenosine 12 mg x 2 and remained in SVT. After she wa s given 20 mg of Cardizem IV and was converted back to sinus rhythm. Today, patient denies any recurrent palpitations. She does mentions having random sharp jose st pain that comes and goes three times a month. These pains can happen at rest or on exerti on. Patient is physically active walking. She is currently on correction disability due to ch ronic myeloid leukemia. Patient denies breathlessness. There is no dizziness or lightheaded ness. There is no ankle or leg swelling. Patient can sleep on one pillow at night without difficulty breathing. CURRENT PROBLEMS Patient Active Problem List Diagnosis Lumbar spondylosis Major depressive disorder, recurrent episode Chronic myeloid leukemia (CML), BCR/ABL-positive Tobacco abuse Nausea Alcohol use Labile mood SVT (supraventricular tachycardia) MEDICAL, SURGICAL, AND PERSONAL HISTORY Past Surgical History: Procedure Laterality Date BREAST CYST ASPIRATION Left SECTION 02/05/2010 Dr. Evans [facility] SECTION N/A 10/14/2016 Procedure: Repeat ; Surgeon: Dorota Beal DO; Location: [facility] MAIN OR SECTION N/A 01/16/2018 Procedure: Repeat , Bilateral Tubal Ligation; Surgeon: Dorota Beal DO ; Location: [facility] MAIN OR DILATION AND CURETTAGE OF UTERUS 05/13/2015 SHOULDER SURGERY 08/2014 TUBAL LIGATION 01/16/2018 Dr Beal Family History Problem Relation Age of Onset [...] cancer Maternal Aunt Heart disease Maternal Aunt Family Status Relation Name Status Father Alive Mother Alive Brother Alive Sister Alive Sister Alive Child Alive Child Alive Child Alive PGF at age 72 PGM Alive MGF at age 84 MGM Alive PUnc Other PAunt Alive MAunt at age 61 Brother (Not Specified) Sister (Not Specified) Child (Not Specified) Child (Not Specified) Child (Not Specified) PUnc (Not Specified) PAunt (Not Specified) MAunt (Not Specified) MAunt (Not Specified) Daughter Alive Son Alive Son Alive Son Alive Son Alive Social History Socioeconomic History Marital status: Spouse name: Not on file Number of children: 3 Years of education: 15 Highest education level: Not on file Occupational History 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 Drug use: Yes Types: Marijuana Sexual activity: Yes Partners: Male Social History Narrative Merged History Encounter CURRENT MEDICATIONS Current Outpatient Medications Medication Sig Dispense Refill ALPRAZolam (XANAX) 0.5 [...] needed for P ain. 90 tablet 0 prochlorperazine 10 mg tablet Take 1 tablet by mouth every 8 hours as needed. 30 tablet 0 raNITIdine (ZANTAC) 150 mg tablet Take 1 tablet by mouth Daily. No current facility-administered medications for this visit. ALLERGIES Allergies Allergen Reactions Tape [Adhesive & Tape] Rash ROS Review of Systems Constitutional: Positive for malaise/fatigue. Negative for chills, diaphoresis, fever and w eight loss. HENT: Negative for congestion, hearing loss, nosebleeds and tinnitus. Dental Problems = No Eyes: Positive for blurred vision. Negative for double vision. Respiratory: Negative for shortness of breath. Cardiovascular: Positive for chest pain. Negative for palpitations and leg swelling. Gastrointestinal: Positive for diarrhea. Negative for blood in stool, constipation, nausea and vomiting. Genitourinary: Negative for dysuria, frequency, hematuria and urgency. Musculoskeletal: Positive for back pain, joint pain and neck pain. Negative for falls and m yalgias. Gait Problems = No Skin: Negative for itching and rash. Neurological: Positive for weakness. Negative for dizziness, tingling, tremors, speech toribio ge, seizures and loss of consciousness. Lightheaded = No Endo/Heme/Allergies: Does not bruise/bleed easily. Psychiatric/Behavioral: Negative for memory loss. The patient is nervous/anxious and has in somnia. OBJECTIVE: PHYSICAL EXAM BP 110/90 | Pulse 78 | Resp 18 | Ht 1.727 m (5' 8") | Wt 78.5 kg (173 lb 1 oz) | BMI 2 6.31 kg/m Physical Exam Constitutional: She is oriented to person, place, and time. She appears well-developed and well-nourished. No distress. Female individual arrives alone, no acute distress. HENT: Head: Normocephalic. Eyes: Lids are normal. Neck: Normal carotid pulses, no hepatojugular reflux and no JVD present. Carotid bruit is n ot present. Cardiovascular: Normal rate, regular rhythm, normal heart sounds and normal pulses. PMI is not displaced. Exam reveals no gallop, no S3 and no S4. No murmur heard. Pulses: Carotid pulses are 2+ on the right side, and 2+ on the left side. Radial pulses are 2+ on the right side, and 2+ on the left side. Femoral pulses are 2+ on the right side, and 2+ on the left side. Dorsalis pedis pulses are 2+ on the right side, and 2+ on the left side. Posterior tibial pulses are 2+ on the right side, and 2+ on the left side. Pulmonary/Chest: Effort normal and breath sounds normal. No accessory muscle usage. No resp iratory distress. She has no wheezes. She has no rhonchi. She has no rales. Abdominal: Normal appearance. There is no hepatosplenomegaly. There is no tenderness. Musculoskeletal: She exhibits no edema. Neurological: She is alert and oriented to person, place, and time. Gait normal. Skin: Skin is warm and dry. No cyanosis. Nails show no clubbing. Psychiatric: She has a normal mood and affect. Her mood appears not anxious. She does not e xhibit a depressed mood. ECG: Sinus rhythm with short ME, otherwise normal ECG. LAB RESULTS: LIPID Lab Results Component Value Date CHOL 131 (L) 01/27/2011 TRIG 86 01/27/2011 HDL 45 01/27/2011 LDL 69 01/27/2011 CHOLHDL 2.9 01/27/2011 CHEMISTRY Lab Results Component Value Date GLU 70 04/26/2019 NA 139 04/26/2019 K 3.8 04/26/2019 CL 111 (H) 04/26/2019 CO2 24 04/26/2019 CALCIUM 8.3 (L) 04/26/2019 ALKPHOS 80 04/26/2019 AST 25 04/26/2019 ALT 24 04/26/2019 BILITOT 0.6 04/26/2019 CREA 0.69 04/26/2019 BUN 9 04/26/2019 HEMATOLOGY Lab Results Component Value Date WBC 8.2 04/26/2019 HGB 14.7 04/26/2019 HCT 42.6 04/26/2019 PLT 112 (L) 04/26/2019 I reviewed records from Arthur Aguilar MD for emergency department visit on . Refer to eastern philosophy professor. ASSESSMENT: 1. Paroxsymal supraventricular tachycardia A. Patient was in her usual state of health until 03/05/2019, she was seen at [place] [facility] department for supraventricular tachycardia seen by Arthur Aguilar MD. She mentions a t this time she was at home watching TV. Patient waited for an hour until she finally came t o ER. She was given adenosine 12 mg x 2 and remained in SVT, heart rate [address] she was given 20 mg of Cardizem IV and was converted back to sinus rhythm. Today, patient denies any recurrent palpitations. She does mentions having random sharp ch est pain that comes and goes three times a month. These pains can happen at rest or on exert ion. Patient is physically active walking. There is no signs and symptoms of overt congestiv e heart failure. She is in a class I of [place] [employer] functional class. There is no fluid retention on physical examination. Initial blood work including CBC, CMP and TSH are unremarkable. 2. Chronic myeloid leukemia A. Patient is taking Imatinib. 3. Smoking A. She smokes half a pack of cigarettes a day. 4. Anxiety PLAN: 1. I spend time at length talking about natural course, treatment and prognosis of paroxsym al supraventricular tachycardia. 2. Echocardiogram is warranted to assess cardiac structure. 3. Refer patient to Dr. Kumar at [facility] for PSVT ablation. 4. I recommend smoking cessation. Over 10 min spent counseling for smoking addiction and ce ssation. 5. I recommend a therapeutic lifestyle change including walking 30 minutes a day, choosing healthy choices of diet and 7 hours of high quality sleep a night. 6. Follow up in three months or sooner with concerns. I, Reina Mcintosh, am acting as a scribe on behalf of, and in the presence of Shira don MD. I have reviewed and edited this note. Reina Mcintosh, Digital Performance Analyst 07/04/2019 I, Shira Saavedra MD, personally performed the services described in this documentation, as scribed in my presence and it is both accurate and complete. Reina Mcintosh, Med Ass t 07/04/2019 10:45 Electronically signed by: Shira Saavedra MD [facility] 07/04/2019 Portions of this chart may have been created with [employer] voice recognition software. Occasi onal wrong-word or [...] | | | | Visit | | [place] [address] | | | | | | [place] | | | | | | [address] | | | | | | | | +--------+ + + + + | 03/18/ | Office | Physical Medicine | Jovana Dawson | | | 2019 | Visit | and Rehabilitation | MELANY [address] | | | | | | [address] [place] | | | | | | [address] [place] | | | | | | [address] | | | | | | | | +--------+ + + + + | 04/01/ | Appointment | Oncology | Deny Mcmanus, | | | 2019 | | | [address] | | | | | | [place] | | | | | | [place] [address] | | | | | | [phone] | | | | | | | | +--------+ + + + + | 04/08/ | Procedure | Physical Medicine | Leonard De Leon | | | 2019 | visit | and Rehabilitation | MD Audelia [address] | | | | | | [place] | | | | | | [address] | | | | | | | | +--------+ + + + + | 04/30/ | Office | Cardiology | Shira Saavedra, | | | 2019 | Visit | | [address] | | | | | | [place], | | | | | | [place] [address] | | | | | | [phone] | | | | | | | | +--------+ + + + + + + +--------+ + + | Name | Type | Priori | Associated Diagnoses | Order Schedule | | | | ty | | | + + +--------+ + + | Referral to Cardio, | Outpatient | Routin | SVT | Ordered: 07/04/2019 | | [place] | Referral | e | (supraventricular | | | | | | tachycardia) (HCC) | | + + +--------+ + + documented as of this encounter Procedures + +--------+ + + + | Procedure Name | Priori | Date/Time | Associated Diagnosis | Comments | | | ty | | | | + +--------+ + + + | ECG 12 LEAD | Routin | 07/04/2019 | SVT | Results for this | | | e | 10:38 AM | (supraventricular | procedure are in the | | | | PDT | tachycardia) ([facility]) | results section. | + +--------+ + [...] | | | | | | n [place] | | | | | + +--------+ [...] + +---------+ + + ECG 12 lead (07/04/2019 10:38 AM PDT) + + + + + + | Component | Value | Ref Range | Performed | Pathologist | | | | | At | Signature | + + + + + + | VENTRICULAR | 78 | BPM | [facility] | | | RATE EKG | | | | | + + + + + + | ATRIAL RATE | 78 | BPM | [facility] | | + + + + + + | P-R | 94 | ms | [facility] | | | INTERVAL | | | | | + + + + + + | QRS | 84 | ms | [facility] | | | DURATION | | | | | + + + + + + | Q-T | 358 | ms | [facility] | | | INTERVAL | | | | | + + + + + + | Q-T | 408 | ms | [facility] | | | INTERVAL | | | | | | (CORRECTED) | | | | | + + + + + + | P WAVE AXIS | 19 | degrees | [facility] | | + + + + + + | QRS AXIS | 83 | degrees | [facility] | | + + + + + + | T AXIS | 67 | degrees | [facility] | | + + + + + + | INTERPRETAT | Sinus rhythm with short | | [facility] | | | ION TEXT | PROtherwise normal | | | | | | ECGWhen compared with | | | | | | ECG of 16-APR-2019 | | | | | | 12:31,No significant | | | | | | change was | | | | | | foundConfirmed by | | | | | | SHIRA SAAVEDRA MD | | | | | | ([id number]) on 07/04/2019 | | | | | | 3:54:51 PM | | | | + + [...]
--- OUTSIDE RECORDS SUMMARY | ~2020-03-13 | XMS | Encounter Summary ---
Demographics + + + | Address | [address] | | | [place] [address] | + + + | Home Phone | | + + + | Preferred Language | Unknown | + + + | Marital Status | | + + + | Catholic Affiliation | Unknown | + + + | Race | Unknown | + + + | Ethnic Group | Unknown | + + + Author + + + | Author | [facility] | | | and [place] | + + + | Organization | [facility] | | [...] Team Providers + +------+ + | Care Community Director Name | Role | Phone | + [...] Description | +--------+--------+ + + + | 07/12/ | Refill | [facility] | Burton Masters, | Medication Refill | | 2019 | | [facility]IC[facility] [place] | [address] | | | | | [address] | [place] | | | | | [place] | [address] | | | | | [address] | | | | | | [phone] | | | +--------+--------+ + + + [...] [place] | | | | | | [address] | | | | | | | [...] [place] | | | | | | [address] | | | | | | | | +--------+ + + + + | 04/01/ | Appointment | Oncology | Deny Mcmanus, | | | 2019 | | | MD [address] | | | | | | [place] | | | | | | [place] [address] | | | | | | [phone] | | | | | | | | +--------+ + + + + | 04/08/ | Procedure | Physical Medicine | Leonard De Leon | | | 2019 | visit | and Rehabilitation | MD [address]iki [address] | | | | | | [place] | | | | | | [address] | | | | | | | | +--------+ + + + + | 04/30/ | Office | Cardiology | Shad Saavedra, | | | 2019 | Visit | | MD [address] | | | | | | [place], | | | | | | [place] [address] | | | | | | [phone] | | | | | | | | +--------+ + + + + documented as of this encounter Visit Diagnoses Not on filedocumented in this encounter"
--- OUTSIDE RECORDS SUMMARY | ~2020-03-13 | XMS | Encounter Summary ---
Demographics + + + | Address | [address] | | | [place] [address] | + + + | Home Phone | | + + + | Preferred Language | Unknown | + + + | Marital Status | | + + + | Methodist Affiliation | Unknown | + + + | Race | Unknown | + + + | Ethnic Group | Unknown | + + + Author + + + | Author | [facility] | | | and [place] | + + + | Organization | [facility] | | [...] Team Providers + +------+ + | Care Winch Operator Name | Role | Phone | + +------+ + | Burton Masters MD | PCP | | + +------+ + Reason for Visit + + + | Reason | Comments | + + + | Medication Refill | Hydrocodone | + + + | Back Pain | | + + + Encounter Details +--------+---------+ + + + | Date | Type | Department | Care Team | Description | +--------+---------+ + + + | 01/23/ | Office | [facility] | Burton Masters, | Back pain, | | 2016 | Visit | [facility]IC[facility] [place] | [address] | unspecified back | | | | [address] | [place], [place] | location, | | | | [place], [place] | [address] | unspecified back | | | | [address] | | pain laterality, | | | | [phone] | | unspecified | | | | [...] + + + | Blood Pressure | 110/60 | 01/23/2017 2:28 PM | | | | | PDT | | + + + + + | Pulse | 98 | 01/23/2017 2:28 PM | | | | | PDT | | + + + + + | Temperature | - | - | | + + + + + | Respiratory Rate | 18 | 01/23/2017 2:28 PM | | | | | PDT | | + + + + + | Oxygen Saturation | 99% | 01/23/2017 2:28 PM | | | | | PDT | | + + + + + | Inhaled Oxygen | - | - | | | Concentration | | | | + + + + + | Weight | 96.2 kg (212 lb) | 01/23/2017 2:28 PM | | | | | PDT | | + + + + + | Height | - | - | | + + + + + | Body Mass Index | 32.23 | 11/30/2016 10:02 AM | | | | | PST | | + + + + + documented in this encounter Progress Notes Burton Masters MD - 01/23/2017 2:37 PM PDTFormatting of this note might be different f rom the original. Subjective: Patient ID: Ashley Webb is a 32 y.o. female. Back Pain This is a chronic problem. The problem is unchanged. Past Medical History Diagnosis Date Anxiety Depression Lumbar radiculopathy - left lower extremity 04/16/2015 DDD (degenerative disc disease), lumbar 04/16/2015 Chronic low back pain 04/16/2015 Bipolar disease, chronic (HCC) Obesity Tachycardia Breast lump Female pelvic pain Abnormal vaginal bleeding Missed Chest pain, unspecified Palpitations Fibromyalgia Muscle spasm Knee pain Panic disorder Shoulder pain Headache Abdominal pain Fatigue Tobacco use Insomnia Generalized anxiety disorder Cough Abscess of trunk Pulpitis Mucocele of salivary gland Engorgement of breasts associated with childbirth, delivered Sciatica Flu Patient Active Problem List Diagnosis Date Noted POA Lumbar radiculopathy - left lower extremity 04/16/2015 Unknown DDD (degenerative disc disease), lumbar 04/16/2015 Unknown Chronic low back pain 04/16/2015 Unknown Past Surgical History Procedure Laterality Date section Dilation and curettage of uterus 05/13/2015 section N/A 10/14/2016 Procedure: Repeat ; Surgeon: Dorota Beal DO; Location: [facility] MAIN OR Breast cyst aspiration Left Family History Problem Relation Age of Onset High blood pressure Mother Multiple sclerosis Mother High blood pressure Father High cholesterol Father Miscarriages / stillbirths Maternal Grandmother Stroke Maternal Grandfather Social History Social History Marital Status: Single Spouse Name: N/A Number of Children: N/A Years of Education: N/A Social History Main Topics Smoking status: Current Every Day Smoker -- 0.50 packs/day Smokeless tobacco: Never Used Alcohol Use: No Drug Use: No Sexual Activity: Not Asked Other Topics Concern None Social History Narrative Current Outpatient Prescriptions Medication Sig Dispense Refill docusate sodium (COLACE) 100 MG capsule Take 100 mg by mouth 2 times daily. 60 capsule 1 FALMINA 0.1-20 MG-MCG per tablet Take as directed 1 HYDROcodone-acetaminophen (NORCO) 5-325 mg per tablet Take 1 tablet by mouth every 12 h ours as needed for Pain. 60 tablet 0 No current facility-administered medications for this visit. Current Outpatient Prescriptions on File Prior to Visit Medication Sig Dispense Refill docusate sodium (COLACE) 100 MG capsule Take 100 mg by mouth 2 times daily. 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 x2 copies today. documented in this encounter Plan of Treatment +--------+ + + + + | Date | Type | Specialty | Care Team | Description | +--------+ + + + + | 03/17/ | Virtual | Neurosurgery | Zuhair Flores | | | 2019 | Office | | MD [address] | | | | Visit | | [place] [address] | | | | | | [place] | | | | | | [address] | | | | | | | | +--------+ + + + + | 03/18/ | Office | Physical Medicine | Jovana Dawson | | | 2019 | Visit | and Rehabilitation | MELANY Man [address] | | | | | | [address] [facility] | | | | | | [place] | | | | | | [address] | | | | | | | | +--------+ + + + + | 04/01/ | Appointment | Oncology | Deny Mcmanus, | | | 2019 | | | [address] | | | | | | [place], | | | | | | [place] [address] | | | | | | [phone] | | | | | | | | +--------+ + + + + | 04/08/ | Procedure | Physical Medicine | Leonard De Leon | | | 2019 | visit | and Rehabilitation | MD Audelia [address] | | | | | | [place] | | | | | | [address] | | | | | | | | +--------+ + + + + | 04/30/ | Office | Cardiology | Shad Saavedra, | | | 2019 | Visit | | [address] | | | | | | [place], | | | | | | [place] [address] | | | | | | [phone] | | | | | | | | +--------+ + + + + documented as of this encounter Visit Diagnoses + + | Diagnosis | + + | Back pain, unspecified back location, unspecified back pain laterality, unspecified | | chronicity - Primary | + + documented in this encounter"
--- OUTSIDE RECORDS SUMMARY | ~2020-03-13 | XMS | Encounter Summary ---
Demographics + + + | Address | [address] [facility] | | | [place] [address] | + + + | Home Phone [...] Team Providers + +------+ + | Care Factory Assembler Name | Role | Phone | [...] + + | 01/09/ | Telephone | [facility] [place] [facility] | Burton Masters, | Medication | | 2020 | | [facility] | [address] | Management | | | | [address] | [place] | | | | | [place] | [address] | | | | | [address] | | | | | | [phone] | | | +--------+ + + + [...] [place] | | | | | | [address] | | | | | | | | +--------+ + + + + | 03/18/ | Office | Physical Medicine | Jovana Dawson | | | 2019 | Visit | and Rehabilitation | MELANY Man [address] | | | | | | [address] [facility] | | | | | | [address] [place] | | | | | | [address] | | | | | | | | +--------+ + + + + | 04/01/ | Appointment | Oncology | Deny Mcmanus, | | | 2019 | | | [address] | | | | | | [address] [place], | | | | | | [place] [address] | | | | | | [phone] | | | | | | | | +--------+ + + + + | 04/08/ | Procedure | Physical Medicine | Leonard De Leon | | | 2019 | visit | and Rehabilitation | MD Kiki Win | | | | | | [place] | | | | | | [address] | | | | | | | | +--------+ + + + + | 04/30/ | Office | Cardiology | Shad Saavedra, | | | 2019 | Visit | | MD Alan [place] | | | | | | [place], | | | | | | [place] [address] | | | | | | [phone] | | | | | | | | +--------+ + + + + documented as of this encounter Visit Diagnoses Not on filedocumented in this encounter"
--- OUTSIDE RECORDS SUMMARY | ~2020-03-13 | XMS | Encounter Summary ---
Demographics + + + | Address | [address] [facility] | | | [place] [address] | + + + | Home Phone | | + + + | Preferred Language | Unknown | + + + | Marital Status | | + + + | Jew Affiliation | Unknown | + + + [...] Providers + +------+ + | Care Inspector Insulation Name | Role | Phone | + [...] + + | 01/11/ | Telephone | [facility] | Deny Mcmanus, | Other | | 2019 | | [facility] | [address] | | | | | [facility] [address] [place], | | | | | [place] | [place] [address] | | | | | [place] [address] | [phone] | | | | | [phone] | | | +--------+ + + + [...] | | Visit | | [address] [facility] [address] | | | | | | [place] | | | | | | [address] | | | | | | | | +--------+ + + + + | 03/18/ | Office | Physical Medicine | Jovana Dawson | | | 2019 | Visit | and Rehabilitation | MELANY Man [address] | | | | | | [address] | | | | | | [address] [place] | | | | | | [address] | | | | | | | | +--------+ + + + + | 04/01/ | Appointment | Oncology | Deny Mcmanus, | | | 2019 | | | [address] | | | | | | [address] [place] | | | | | | [place] [address] | | | | | | [phone] | | | | | | | | +--------+ + + + + | 04/08/ | Procedure | Physical Medicine | Leonard De Leon | | | 2019 | visit | and Rehabilitation | MD Kiki Win | | | | | | [place] | | | | | | [address] | | | | | | | | +--------+ + + + + | 04/30/ | Office | Cardiology | Shad Saavedra, | | | 2019 | Visit | | MD Alan Cruz | | | | | | [place], | | | | | | [place] [address] | | | | | | [phone] | | | | | | | | +--------+ + + + + documented as of this encounter Visit Diagnoses Not on filedocumented in this encounter"
--- OUTSIDE RECORDS SUMMARY | ~2020-03-13 | XMS | Encounter Summary ---
Demographics + + + | Address | [address] [facility] | | | [place] [address] | + + + | Home Phone | | + + + | Preferred Language | Unknown | + + + | Marital Status | | + + + | Jain Affiliation | Unknown | + + + [...] Team Providers + +------+ + | Care Mortgage Loan Processing Clerk Name | Role | Phone | [...] Description | +--------+--------+ + + + | 01/20/ | Refill | [facility] [place] [facility] | Burton Masters, | Medication Refill | | 2020 | | MEDICINE [place] | [address] | | | | | [address] | [place] | | | | | [place] | [address] | | | | | [address] | | | | | | [phone] | | | +--------+--------+ + + + [...] [place] | | | | | | [address] | | | | | | | | +--------+ + + + + | 03/18/ | Office | Physical Medicine | Jovana Dawson | | | 2019 | Visit | and Rehabilitation | MELANY Man [address] | | | | | | [address] [facility] | | | | | | [address] [place] | | | | | | [address] | | | | | | | | +--------+ + + + + | 04/01/ | Appointment | Oncology | Deny Mcmanus, | | | 2019 | | | MD [address] | | | | | | [place] | | | | | | [place] [address] | | | | | | [phone] | | | | | | | | +--------+ + + + + | 04/08/ | Procedure | Physical Medicine | Leonard De Leon | | | 2019 | visit | and Rehabilitation | MD Kiki Win | | | | | | [place] | | | | | | [address] | | | | | | | | +--------+ + + + + | 04/30/ | Office | Cardiology | Shad Saavedra, | | | 2019 | Visit | | MD Alan Cruz | | | | | | [place], | | | | | | [place] [address] | | | | | | [phone] | | | | | | | | +--------+ + + + + documented as of this encounter Visit Diagnoses Not on filedocumented in this encounter"
--- OUTSIDE RECORDS SUMMARY | ~2020-03-13 | XMS | Encounter Summary ---
Demographics + + + | Address | [address] [facility] | | | [place] [address] | + + + | Home Phone | | + + + | Preferred Language | Unknown | + + + | Marital Status | | + + + | Voodoo Affiliation | Unknown | + + + | Race | Unknown | + + + | Ethnic Group | Unknown | + + + Author + + + | Author | [facility] | | | and [place] | + + + | Organization | [facility] | | [...] Team Providers + +------+ + | Care Prop And Effects Designer Name | Role | Phone | + +------+ + | Nhi Oneal MD | PCP | | + +------+ + Reason for Referral Physical Medicine (Routine) +--------+ + + + + + | Status | Reason | Specialty | Diagnoses / | Referred By | Referred To | | | | | Procedures | Contact | Contact | +--------+ + + + + + | Closed | Specialty | Rehabilitatio | Diagnoses | | Do Not Use | | | Services | n | Lumbar | Haley, | - [facility] | | | Required | | radiculopath | Leonard Win MD | [facility] [address] | | | | | y DDD | [address] | [address] | | | | | (degenerativ | [address] [place] | [place], | | | | | e disc | [place], [place] | [place] [address] | | | | | disease), | [address] | Phone: | | | | | lumbar | Phone: | [phone] | | | | | Chronic low | [phone] | Fax: | | | | | back pain | Fax: | [phone] | | | | | 724.4 | [phone] | | | | | | (ICD-9-CM) - | | | | | | | Lumbar | | | | | | | radiculopath | | | | | | | y | | | | | | | Procedures | | | | | | | pt eval | | | | | | | (pool) | | | +--------+ + + + + + Reason for Visit + + + | Reason | Comments | + + + | Back Pain | Radiates down LLE | + + + Evaluate & Treat (Routine) +--------+--------+ + + + + | Status | Reason | Specialty | Diagnoses / | Referred By | Referred To | | | | | Procedures | Contact | Contact | +--------+--------+ + + + + | Closed | | Physical | Diagnoses | Oneal, | [place], | | | | Medicine and | Sciatica of | Nhi Sarabia, | Leonard Win MD | | | | Rehabilitatio | left side | MD [address] | [address] | | | | n | Weakness of | [address] | [address] [place] | | | | | left leg | [address] | [place], [place] | | | | | | [place], [place] | [address] Phone: | | | | | | [address] | [phone] | | | | | | Phone: | Fax: | | | | | | [phone] | [phone] | | | | | | Fax: | | | | | | | [phone] | | +--------+--------+ + + + + Encounter Details +--------+---------+ + + + | Date | Type | Department | Care Team | Description | +--------+---------+ + + + | 04/16/ | Office | [facility] | Haley Leonard | Lumbar radiculopathy | | 2015 | Visit | PHYSIATRY [address] | [address], [address] | - left lower | | | | [address] | [place], [place] | extremity (Primary | | | | [place], [place] | [address] | Dx); DDD | | | | [address] | | (degenerative disc | | | | [phone] | | disease), lumbar; | | | | | | Chronic low back | | | | | | pain | +--------+---------+ + + + Social History [...] + + + | Blood Pressure | 119/79 | 04/16/2015 8:30 AM | | | | | PDT | | + + + + + | Pulse | 85 | 04/16/2015 8:30 AM | | | | | PDT | | + + + + + | Temperature | - | - | | + + + + + | Respiratory Rate | 15 | 04/16/2015 8:30 AM | | | | | PDT | | + + + + + | Oxygen Saturation | - | - | | + + + + + | Inhaled Oxygen | - | - | | | Concentration | | | | + + + + + | Weight | 81.6 kg (180 lb) | 04/16/2015 8:30 AM | | | | | PDT | | + + + + + | Height | 175.3 cm (5' 9") | 04/16/2015 8:30 AM | | | | | PDT | | + + + + + | Body Mass Index | 26.58 | 04/16/2015 8:30 AM | | | | | PDT | | + + + + + documented in this encounter Progress Notes Leonard De Leon MD - 04/16/2015 8:31 AM PDT Leonard De Leon MD [address] [place] [address], [address] [place], [place] [address] FAX: PHYSICAL MEDICINE AND REHABILITATION H&P CHIEF COMPLAINT: Chief Complaint Patient presents with Back Pain Radiates down LLE HISTORY OF PRESENT ILLNESS: The patient is a 30 y.o. female with the complaint of low back pain that began about five years ago. The patient reports that the pain started after pick ing up a chair. The symptoms have been gradually worsening. She rates the pain as moderate to severe. The symptoms are continuous. She describes the pain as sharp, shooting, aching, throbbing. The patient describes leg symptoms that occur on left side. The leg symptoms account for g reater than or equal to 50% of her symptoms. The leg symptoms are persistent and the sympto ms travel from the low back into the buttock and down the back of the left leg. The patient does not report numbness in the foot on the left. This is intermittent. She does also rep ort weakness of the left leg The patient does not report any change in bowel or bladder function or saddle anesthesia re cently. Her symptoms improve with nothing. Her symptoms worsen with changing position, standing, sitting, walking, running, kneeling, bending, twisting. She has tried narcotic medications, anti-inflammatories, and muscle relaxers. She has not tried any PT. Reportedly that was not a covered PAST MEDICAL HISTORY: Past Medical History Diagnosis Date Anxiety Depression Lumbar radiculopathy - left lower extremity 04/16/2015 DDD (degenerative disc disease), lumbar 04/16/2015 Chronic low back pain 04/16/2015 PAST SURGICAL HISTORY: Past Surgical History Procedure Laterality Date section, classic Dilation and curettage of uterus CURRENT MEDICATIONS: Current Outpatient Prescriptions Medication Sig Dispense Refill Acetaminophen (TYLENOL EXTRA STRENGTH PO) TABS Take 2 tablets by mouth daily buPROPion (BUDEPRION SR) 150 mg 12 hr tablet Take 150 mg by mouth 2 times daily. Kiqnfyx-Yazecjmty-Unlfmuf D (CALCIUM 500 PO) Take by mouth. chlorhexidine (PERIDEX) 0.12% solution cholecalciferol (VITAMIN D-3) 400 units TABS Take 400 Units by mouth Daily. cyclobenzaprine (FLEXERIL) 10 mg tablet divalproex (DEPAKOTE ER) 500 mg 24 hr tablet Take 500 mg by mouth 3 times daily. gabapentin (NEURONTIN) 300 mg capsule Hydrocodone-Acetaminophen 5-300 MG TABS Ibuprofen (ADVIL PO) CAPS Take 600 mg by mouth daily LORazepam (ATIVAN) 1 mg tablet Take 1 tablet 30 minutes before MRI (DO NOT TAKE UNTIL I NSTRUCTED BY Radiologist. 1 tablet 0 naproxen (NAPROSYN) 500 mg tablet Fjxvqlpq-Fmz-Rp-FA (PRE- PO) Take 1 tablet by mouth Daily. No current facility-administered medications for this visit. ALLERGIES: No Known Allergies SOCIAL HISTORY: The patient reports that she has been smoking. She has never used smokeless tobacco. She reports that she does not drink alcohol. FAMILY HISTORY: Family History Problem Relation Age of Onset High blood pressure Mother High blood pressure Father High cholesterol Father Miscarriages / Stillbirths Maternal Grandmother Stroke Maternal Grandfather REVIEW OF SYSTEMS: GENERALLY: No fever, no night sweats, no anemia, no fatigue, no recent profound weight ch anges. EYES: No eye problems, no use of corrective lenses, no eye injury, no double vision, no bl indness. EARS, NOSE, AND THROAT: No changes in taste or smell, no hearing difficulty, no ringing in the ears, no ear drainage, no dizziness, no voice changes, no difficulty swallowing, no sig nificant snoring, no sleep apnea, no sinus problems, no major dental work. NEUROLOGICALLY: Please see the review of systems discussed above in the history of present illness. In addition, the patient has numbness/pain of legs, awake with numbness/pain, jonathan k injury, pain in back. PSYCHIATRIC: + depression, + sleep disorders, + anxiety, + bipolar disorder, no psychotic episodes. CARDIOVASCULAR: No heart attacks, no heart murmur, + heart fluttering, no chest pain, no a nkle swelling. LUNG DISEASE: No shortness of breath, no cough, no tuberculosis, no bloody cough, no asth ma, no emphysema/COPD. GASTROINTESTINAL: No bowel disease, no nausea or vomiting, no rectal bleeding, no constipa tion, no stool incontinence, no liver disease, no gallbladder disease, no abdominal pain, no ulcers. KIDNEY DISEASE: No urinary frequency, no painful or difficult urination, no incontinence. ENDOCRINE: No diabetes, no thyroid disease, no osteopenia or osteoporosis, no breast drain age. SKIN: No breast lumps, no skin changes, no rashes, no itches. HEMATOLOGIC/LYMPHATIC: No enlarged lymph nodes, no easy or unusual bleeding, no personal h istory of cancer. RHEUMATOLOGIC: No joint arthritis, no rheumatoid arthritis. PHYSICAL EXAMINATION: Blood pressure 119/79, pulse 85, resp. rate 15, height 1.753 m (5' 9"), weight 81.647 kg (1 80 lb). Body mass index is 26.57 kg/(m^2). GENERAL: The patient is well developed and well nourished. She does appear somewhat uncomf ortable when seated. HEENT: HEAD/FACE: EYES: Normocephalic and atraumatic. There are no areas of recent trauma. Normal sclerae without icterus. SKIN Limited skin exam shows no significant rashes or lesions. There are not scars in the lumbar region. CHEST: The patient is in no acute respiratory distress with unlabored respirations. HEART: There is not lower extremity edema. ABDOMEN: The patient is mildly overweight, but she is 7 weeks . NEUROLOGIC: The patient is awake, alert, and oriented to time, place, person. She follows simple and complex commands. Her speech is fluent. She comprehends speech well. She has no apparent deficits with short or half-way memory. She has appropriate fund of knowledge Cranial nerves 2-12 appear grossly intact. Sensory exam does show diminished sensation to light touch in the left lower extremity, mos tly in the foot. REFLEX: RIGHT LEFT PATELLAR 1+ 1+ ACHILLES 1+ 1+ PLANTAR Downgoing Downgoing MUSCULOSKELETAL There is no major palpable deformity of the spine. Straight leg raise and slump-sit are positive on the left. Tyshawn's maneuver and impingem ent testing were negative for any groin pain. There was no tenderness to palpation over th e greater trochanters or sacral sulci. The patient localized the majority of the pain to th e L5-S1 region, midline and down the left leg. Lumbar facet loading was negative. Strength testing showed 5/5 strength throughout the lower extremities. The patient was able to heel and toe walk without difficulty. There was no redness, effusion, warmth or joint line tend erness in the knees or ankles. RADIOGRAPHIC REVIEW: The patient's imaging was reviewed in detail with the patient today during the visit. The MRI of the lumbar spine from 03/04/15 shows degenerative disc disease at L5-S1 with a disc bu lge eccentric to the left and potential for impingement on the left S1 nerve root as well as some foraminal narrowing that could impact the left L5 nerve root. IMPRESSION: Encounter Diagnoses Name Primary? Lumbar radiculopathy - left lower extremity Yes DDD (degenerative disc disease), lumbar Chronic low back pain PLAN: 1. The patient is currently 7 weeks which does make it more difficult to provide treatment. Some medications and epidural steroid injections would not be appropriate during . The patient has not yet tried physical therapy and I do feel that that would be appropriate and safe and a detailed physical therapy prescription was given. 2. I would be happy to see the patient back on an as-needed basis and after the I would be happy to provide additional treatment such as an epidural steroid injection. Thi s would likely be a left S1 transforaminal epidural steroid injection. 3. There may be some medications that she could take during that have relatively low risk however the patient does not even want to consider these and that is okay with me. ELECTRONICALLY EDITED AND SIGNED BY: Leonard De Leon MD, 04/16/2015 documented in this encounter Plan of Treatment +--------+ + + + + | Date | Type | Specialty | Care Team | Description | +--------+ + + + + | 03/17/ | Virtual | Neurosurgery | Zuhair Flores | | 2019 | Office | | MD Joselito [address] | | | | Visit | | [place] [address] | | | | | | [place] | | | | | | [address] | | | | | | | | +--------+ + + + + | 03/18/ | Office | Physical Medicine | Jovana Dawson | | 2019 | Visit | and Rehabilitation | MELANY Man [address] | | | | | | [address] [facility] | | | | | | [place] | | | | | | [address] | | | | | | | | +--------+ + + + + | 04/01/ | Appointment | Oncology | Deny Mcmanus, | | 2019 | | | [address] | | | | | | [place] | | | | | | [place] [address] | | | | | | [phone] | | | | | | | | +--------+ + + + + | 04/08/ | Procedure | Physical Medicine | Leonard De Leon | | 2019 | visit | and Rehabilitation | MD Audelia [address] | | | | | | [place] | | | | | | [address] | | | | | | | | +--------+ + + + + | 04/30/ | Office | Cardiology | Shad Saavedra, | | | 2020 | Visit | | [place] [address] | | | | | | [place], | | | | | | [place] [address] | | | | | | [phone] | | | | | | | | +--------+ + + + + + + +--------+ + + | Name | Type | Priori | Associated Diagnoses | Order Schedule | | | | ty | | | + + +--------+ + + | Ambulatory referral | Outpatient | Routin | Lumbar | Ordered: 04/16/2015 | | to Physical Therapy | Referral | e | radiculopathy - left | | | | | | lower extremity | | | | | | DDD (degenerative | | | | | | disc disease), | | | | | | lumbar Chronic low | | | | | | back pain | | + + +--------+ + + documented as of this encounter Visit Diagnoses + + | Diagnosis | + + | Lumbar radiculopathy - left lower extremity - Primary Thoracic or lumbosacral | | neuritis or radiculitis, unspecified | + + | DDD (degenerative disc disease), lumbar Degeneration of lumbar or lumbosacral | | intervertebral disc | + + | Chronic low back pain Lumbago | + + documented in this encounter
--- OUTSIDE RECORDS SUMMARY | ~2020-03-13 | XMS | Encounter Summary ---
Demographics + + + | Address | [address] | | | [place] [address] | + + + | Home Phone | | + + + | Preferred Language | Unknown | + + + | Marital Status | Single | + + + | Samaritan Affiliation | NON | + + + | Race | White | + + + | Ethnic Group | Not or | + + + Author + + + | Author | [facility] | + + + | Organization | [facility] | + + + | [...] Team Providers + +------+ + | Care Lumber Sorter Machine Name | Role | Phone | + +------+ + | Burton Masters MD | PCP | | + +------+ + Encounter Details +--------+------+ + + + | Date | Type | Department | Care Team | Description | +--------+------+ + + + | 06/10/ | Lab | Laboratory at [facility] | | Chronic myeloid | | 2019 | | [address] | | leukemia, | | | | [place], [place] | | BCR/ABL-positive, | | | | [address] | | not having achieved | | | | [phone] | | remission (HCC) | +--------+------+ + + + Social History + +-------+ [...] [place] | | | | | | [place], [place] | | | | | | [address] | | | | | | [phone] | | | | | | | | +--------+---------+ + + + documented as of this encounter Procedures + +--------+ + + + | Procedure Name | Priori | Date/Time | Associated Diagnosis | Comments | | | ty | | | | + +--------+ + + + | CBC AND AUTO DIFF | Routin | 06/10/2019 | Chronic myeloid | Results for this | | | e | 12:14 PM | leukemia, | procedure are in the | | | | PDT | BCR/ABL-positive, | results section. | | | | | not having achieved | | | | | | remission (HCC) | | + +--------+ + + + | [facility] - COMPLETE | Routin | 06/10/2019 | Chronic myeloid | Results for this | | METABOLIC SET | e | 12:14 PM | leukemia, | procedure are in the | | | | PDT | BCR/ABL-positive, | results section. | | | | | not having achieved | | | | | | remission (HCC) | | + +--------+ + + + | [facility] CBC W | Routin | 06/10/2019 | Chronic myeloid | Results for this | | DIFFERENTIAL | e | 12:14 PM | leukemia, | procedure are in the | | | | PDT | BCR/ABL-positive, | results section. | | | | | not having achieved | | | | | | remission (HCC) | | + +--------+ + + + | BCR - ABL RNA QUANT, | Routin | 06/10/2019 | Chronic myeloid | Results for this | | BLOOD | e | 12:14 PM | leukemia, | procedure are in the | | | | PDT | BCR/ABL-positive, | results section. | | | | | not having achieved | | | | | | remission (HCC) | | + +--------+ + + + | URIC ACID, PLASMA | Routin | 06/10/2019 | Chronic myeloid | Results for this | | | e | 12:14 PM | leukemia, | procedure are in the | | | | PDT | BCR/ABL-positive, | results section. | | | | | not having achieved | | | | | | remission (HCC) | | + +--------+ + + + documented in this encounter Results CBC AND AUTO DIFF (06/10/2019 12:14 PM PDT) + + + + + + | Component | Value | Ref Range | Performed | Pathologist | | | | | At | Signature | + + + + + + | WHITE CELL | 7.89 | 3.50 - 10.80 | [facility] | | | COUNT | | K/cu mm | LABORATORY | | | | | | SERVICES, | | | | | | [facility] | | | | | | [facility] | | + + + + + + | RED CELL | 4.06 | 4.00 - 5.20 | [facility] | | | COUNT | | M/cu mm | LABORATORY | | | | | | SERVICES, | | | | | | [facility] + | | | | | | [facility] | | + + + + + + | HEMOGLOBIN | 14.0 | 12.0 - 16.0 | [facility] | | | | | g/dL | LABORATORY | | | | | | SERVICES, | | | | | | [facility] + | | | | | | [facility] | | + + + + + + | HEMATOCRIT | 41.0 | 36.0 - 46.0 % | [facility] | | | | | | LABORATORY | | | | | | SERVICES, | | | | | | [facility] + | | | | | | [facility] | | + + + + + + | MCV | 101.0 (H) | 80.0 - 100.0 fL | [facility] | | | | | | LABORATORY | | | | | | SERVICES, | | | | | | [facility] + | | | | | | [facility] | | + + + + + + | MCHC | 34.1 | 32.0 - 36.0 | [facility] | | | | | g/dL | LABORATORY | | | | | | SERVICES, | | | | | | [facility] + | | | | | | [facility] | | + + + + + + | RDW SD | 59.2 (H) | 35.1 - 46.3 fL | [facility] | | | | | | LABORATORY | | | | | | SERVICES, | | | | | | [facility] + | | | | | | [facility] | | + + + + + + | PLATELET | 113 (L) | 150 - 400 K/cu | [facility] | | | COUNT | | mm | LABORATORY | | | | | | SERVICES, | | | | | | [facility] + | | | | | | [facility] | | + + + + + + | MPV | 9.1 (L) | 9.7 - 12.3 fL | [facility] | | | | | | LABORATORY | | | | | | SERVICES, | | | | | | [facility] + | | | | | | [facility] | | + + + + + + | NRBC% | 0.0 | 0.0 - 0.3 % | [facility] | | | | | | LABORATORY | | | | | | SERVICES, | | | | | | [facility] + | | | | | | [facility] | | + + + + + + | NRBC# | 0.00 | 0.00 - 0.02 | [facility] | | | | | K/cu mm | LABORATORY | | | | | | SERVICES, | | | | | | [facility] + | | | | | | [facility] | | + + + + + + | NEUTROPHIL | 68.3 | 50.0 - 70.0 % | [facility] | | | % | | | LABORATORY | | | | | | SERVICES, | | | | | | [facility] + | | | | | | [facility] | | + + + + + + | LYMPHOCYTE | 22.4 | 18.0 - 42.0 % | [facility] | | | % | | | LABORATORY | | | | | | SERVICES, | | | | | | [facility] + | | | | | | [facility] | | + + + + + + | MONOCYTE % | 7.0 | 3.5 - 9.0 % | [facility] | | | | | | LABORATORY | | | | | | SERVICES, | | | | | | [facility] + | | | | | | [facility] | | + + + + + + | EOS % | 1.6 | 1.0 - 3.0 % | [facility] | | | | | | LABORATORY | | | | | | SERVICES, | | | | | | [facility] + | | | | | | [facility] | | + + + + + + | BASO % | 0.4 | 0.0 - 2.0 % | [facility] | | | | | | LABORATORY | | | | | | SERVICES, | | | | | | [facility] + | | | | | | [facility] | | + + + + + + | IG% | 0.3Comment: Increased | 0.0 - 1.0 % | [facility] | | | | immature granulocytes | | LABORATORY | | | | (IG) define a left | | SERVICES, | | | | shift. Immature | | [facility] | | | | granulocytes (IG) are an | | HEALTH + | | | | automated count of | | HEALING | | | | metamyelocytes, | | | | | | myelocytes and | | | | | | promyelocytes. Bands | | | | | | are not included in the | | | | | | IG count. Bands are | | | | | | included in the | | | | | | neutrophil count. | | | | + + + + + + | NEUTROPHIL | 5.39 | 1.80 - 7.70 | [facility] | | | # | | K/cu mm | LABORATORY | | | | | | SERVICES, | | | | | | [facility] + | | | | | | [facility] | | + + + + + + | NEUTROPHIL | 5.39Comment: Preliminary | 1.80 - 7.70 | [facility] | | | # Prelim | automated neutrophil | K/cu mm | LABORATORY | | | | result. Refer to | | SERVICES, | | | | Neutrophil # for final | | [facility] | | | | neutrophil result, which | | HEALTH + | | | | may differ from this | | HEALING | | | | preliminary value. | | | | + + + + + + | LYMPHOCYTE | 1.77 | 1.00 - 4.80 | [facility] | | | # | | K/cu mm | LABORATORY | | | | | | SERVICES, | | | | | | [facility] | [facility] + | | | | | | [facility]ALING | | + + + + + + | MONOCYTE # | 0.55 | 0.10 - 0.90 | [facility] | | | | | K/cu mm | LABORATORY | | | | | | SERVICES, | | | | | | [facility] | [facility] + | | | | | | [facility]ALING | | + + + + + + | EOS # | 0.13 | 0.00 - 0.50 | [facility] | | | | | K/cu mm | LABORATORY | | | | | | SERVICES, | | | | | | [facility] | [facility] + | | | | | | [facility]ALING | | + + + + + + | BASO # | 0.03 | 0.00 - 0.10 | [facility] | | | | | K/cu mm | LABORATORY | | | | | | SERVICES, | | | | | | [facility] | [facility] + | | | | | | [facility]ALING | | + + + + + + | IG# | 0.02 | 0.00 - 0.10 | [facility] | | | | | K/cu mm | LABORATORY | | | | | | SERVICES, | | | | | | [facility] | [facility] + | | | | | | [facility]ALING | | + + + + + + + + | Specimen | + + | Blood - Blood | | (substance) | + + + + + | Narrative | Performed At | + + + | Increased immature granulocytes (IG) define a left shift. Immature | [facility] | | granulocytes (IG) are an automated count of metamyelocytes, myelocytes | LABORATORY | | and promyelocytes. Bands are not included in the IG count. Bands are | SERVICES, | | included in the neutrophil count. | [facility] | [facility] + | | | [facility]ALING | + + + + + + + + | Performing | Address | City/State/Zipcode | Phone Number | | Organization | | | | + + + + + | [facility] | [address] | [place] [address] | | | [facility] | | | | | HEALTH + HEALING | | | | + + + + + [facility] - COMPLETE METABOLIC SET (06/10/2019 12:14 PM PDT) + +---------+ + + + | Component | Value | Ref Range | Performed | Pathologist | | | | | At | Signature | + +---------+ + + + | GLUCOSE, | 89 | 70 - 99 mg/dL | [facility] | | | PLASMA | | | LABORATORY | | | (LAB) | | | SERVICES, | | | | | | [facility] | [facility] + | | | | | | [facility]ALING | | + +---------+ + + + | BUN, PLASMA | 9 | 6 - 20 mg/dL | [facility] | | | (LAB) | | | LABORATORY | | | | | | SERVICES, | | | | | | [facility] | [facility] + | | | | | | [facility]ALING | | + +---------+ + + + | CREATININE | 0.75 | 0.60 - 1.10 | [facility] | | | PLASMA | | mg/dL | LABORATORY | | | (LAB) | | | SERVICES, | | | | | | [facility] | | [facility] + | | | | | | [facility]ALING | | + +---------+ + + + | EGFR | >60 | >60 mL/min | [facility] | | | - | | | LABORATORY | | | ITALIAN | | | SERVICES, | | | | | | [facility] | | [facility] + | | | | | | [facility]ALING | | + +---------+ + + + | EGFR NON | >60 | >60 mL/min | [facility] | | | -REI | | | LABORATORY | | | RICAN | | | SERVICES, | | | | | | [facility] | | [facility] + | | | | | | [facility]ALING | | + +---------+ + + + | SODIUM, | 140 | 136 - 145 | [facility] | | | PLASMA | | mmol/L | LABORATORY | | | (LAB) | | | SERVICES, | | | | | | [facility] | | [facility] + | | | | | | [facility]ALING | | + +---------+ + + + | POTASSIUM, | 4.0 | 3.4 - 5.0 | [facility] | | | PLASMA | | mmol/L | LABORATORY | | | (LAB) | | | SERVICES, | | | | | | [facility] | | | [facility] + | | | | | | [facility]ALING | | + +---------+ + + + | CHLORIDE, | 106 | 97 - 108 mmol/L | [facility] | | | PLASMA | | | LABORATORY | | | (LAB) | | | SERVICES, | | | | | | [facility] | | [facility] + | | | | | | [facility]ALING | | + +---------+ + + + | TOTAL CO2, | 26 | 21 - 32 mmol/L | [facility] | | | PLASMA | | | LABORATORY | | | (LAB) | | | SERVICES, | | | | | | [facility] | | | [facility] + | | | | | | [facility]ALING | | + +---------+ + + + | CALCIUM, | 8.4 (L) | 8.6 - 10.2 | [facility] | | | PLASMA | | mg/dL | LABORATORY | | | (LAB) | | | SERVICES, | | | | | | [facility] | [facility] | | [facility] + | | | | | | [facility]ALING | | + +---------+ + + + | CALCIUM(ALB | 8.5 (L) | 8.6 - 10.2 | [facility] | | | CORRECTED) | | mg/dL | LABORATORY | | | | | | SERVICES, | | | | | | [facility] | | [facility] + | | | | | | [facility]ALING | | + +---------+ + + + | BILIRUBIN | 1.0 | 0.3 - 1.2 mg/dL | [facility] | | | TOTAL | | | LABORATORY | | | | | | SERVICES, | | | | | | [facility] | | [facility] + | | | | | | HEALING | | + +---------+ + + + | TOTAL | 6.9 | 6.4 - 8.2 g/dL | [facility] | | | PROTEIN, | | | LABORATORY | | | PLASMA | | | SERVICES, | | | (LAB) | | | [facility] | | | | | [facility] + | | | | | | HEALING | | + +---------+ + + + | ALBUMIN, | 3.9 | 3.5 - 4.7 g/dL | [facility] | | | PLASMA | | | LABORATORY | | | (LAB) | | | SERVICES, | | | | | | [facility] | | | [facility] + | | | | | | [facility]ALING | | + +---------+ + + + | ALK PHOS | 86 | 42 - 98 U/L | [facility] | | | | | | LABORATORY | | | | | | SERVICES, | | | | | | [facility] | | [facility] + | | | | | | [facility]ALING | | + +---------+ + + + | AST(SGOT) | 41 | <=41 U/L | [facility] | | | | | | LABORATORY | | | | | | SERVICES, | | | | | | [facility] | | [facility] + | | | | | | [facility]ALING | | + +---------+ + + + | ALT (SGPT) | 47 | <=60 U/L | [facility] | | | | | | LABORATORY | | | | | | SERVICES, | | | | | | [facility] | | [facility] + | | | | | | [facility]ALING | | + +---------+ + + + | ANION GAP | 8 | 4 - 11 mmol/L | [facility] | | | | | | LABORATORY | | | | | | SERVICES, | | | | | | [facility] | [facility] + | | | | | | [facility]ALING | | + +---------+ + + + | ANION | 8 | 4 - 11 mmol/L | [facility] | | | GAP(ALB | | | LABORATORY | | | CORRECTED) | | | SERVICES, | | | | | | [facility] | | [facility] + | | | | | | [facility]ALING | | + +---------+ + + + | POTASSIUM | No Hemo | | [facility] | | | CMNT | | | LABORATORY | | | | | | SERVICES, | | | | | | [facility] | | | [facility] + | | | | | | [facility]ALING | | + +---------+ + + + | BILI T CMNT | No Hemo | | [facility] | | | | | | LABORATORY | | | | | | SERVICES, | | | | | | [facility] | | | [facility] + | | | | | | [facility]ALING | | + +---------+ + + + | AST CMNT | No Hemo | | [facility] | | | | | | LABORATORY | | | | | | SERVICES, | | | | | | [facility] | | | [facility] + | | | | | | [facility]ALING | | + +---------+ + + + + + | Specimen | + + | Blood - Blood | | (substance) | + + + + + | Narrative | Performed At | + + + | GFR is estimated using the MDRD equation recommended by the National | [facility] | | Kidney Disease Education Program. Estimated GFR Interpretive | LABORATORY | | Information: <60 mL/min/1.73 sq m Chronic Kidney | SERVICES, | | Disease <15 mL/min/1.73 sq m Kidney Failure | [facility] | | Estimated GFR greater than 60 mL/min/1.73 sq m is of limited clinical | HEALTH + | | value. The MDRD equation is not valid in the following situations: - | HEALING | | Patients under 18 years of age - Severe malnutrition or obesity - | | | Vegetarian diet - Rapidly changing kidney function - Amputees, | | | paraplegics, or other muscle-wasting diseases | | + + + + + + + + | Performing | Address | City/State/Zipcode | Phone Number | | Organization | | | | + + + + + | [facility] | [address] | [place] [address] | | | [facility] | | | | | HEALTH + HEALING | | | | + + + + + BCR - ABL RNA QUANT, BLOOD (06/10/2019 12:14 PM PDT) + +-------+ + + + | Component | Value | Ref Range | Performed | Pathologist | | | | | At | Signature | + +-------+ + + + | SPECIMEN | Blood | | [facility] | | | TYPE | | | DIAGNOSTIC | | | SUBMITTED | | | | | | | | | LABORATORIE | | | | | | S | | + +-------+ + + + | BCR-ABL | 0.20 | % | [facility] | | | (INTERNATIO | | | DIAGNOSTIC | | | NAL SCALE) | | | | | | | | | LABORATORIE | | | | | | S | | + +-------+ + + + + + | Specimen | + + | Blood - Blood | | (substance) | + + + + + | Narrative | Performed At | + + + | Test indication: leukemia monitoring As per your request, to | [facility] | | determine the level of minimal residual leukemia, we have completed a | DIAGNOSTIC | | quantitative RT-PCR analysis of BCR-ABL RNA, a marker of the presence | LABORATORIES | | and amount of transcriptionally active Cal[place]oun chromosome | | | positive leukemia cells. This RT-PCR assay will detect the most | | | common (but not all) BCR-ABL translocation breakpoints within the | | | "major breakpoint cluster region" (encoding the BCR-ABL p210 protein). | | | The common p210 translocation breakpoints that will be detected with | | | this assay include those involving exons 13 or 14 of BCR joined to | | | exon 2 of ABL. Uncommon p210 translocation breakpoints (ie those | | | involving ABL exon 3) will not be detected with this assay. All | | | BCR-ABL minor translocation breakpoints (encoding the p190 protein), | | | such as those often found in ALL, will also not be detected with this | | | assay. These non-detectable "minor breakpoint cluster region" | | | [id number] breakpoints include translocations involving upstream | | | BCR exon 1. Should an uncommon BCR-ABL translocation breakpoint that | | | is not detectable with this assay be suspected, please contact the | | | lab, as an alternative PCR assay can be utilized. Moderate levels of | | | leukemia cells persist. Major molecular response has not been | | | achieved. The international scale (IS) of reporting defines a BCR-ABL | | | RNA level of 0.1% as being equivalent to a 3.0 log-reduction from a | | | standardized median pre-treatment baseline value (that is, by | | | definition, equal to 100%). This 0.1% international scale level is, | | | by definition, a "major molecular response" (MMR) as established in | | | the IRIS study (International Randomized Study of Interferon and STI | | | 571). On the International Scale, BCR-ABL IS < 0.1%, 0.01% and | | | 0.0032% are equivalent to MMR (Major Molecular Response), MR4 and | | | MR4.5, respectively. The NCCN guidelines consider early molecular | | | response (EMR; BCR-ABL IS < 10% at 3 months) as a goal of treatment. | | | Achievement of MMR (BCR-ABL IS < 0.10%) at 12 or 18 months | | | post-therapy is also a confirmed good prognostic marker. Although | | | this PCR assay yields quantitative information, please note that the | | | assay precision is such that RNA changes of less than approximately | | | 0.5 log (3.2-fold) should be interpreted cautiously and may not | | | reflect true biological changes in RNA levels, but rather an inherent | | | lab-dependent variability in the quantitation of these transcripts. | | | The low-level analytical sensitivity of this assay is approximately | | | MR4.5 (~0.003% IS, or 4.5 logs below the pre-treatment baseline), such | | | that a negative sample may still have a very low-level BCR-ABL RNA | | | level below that threshold. This test was developed and its | | | performance characteristics determined by the [facility] | | | [facility]ostics Center. It has not been cleared or approved by the Food | | | and Drug Administration. FDA approval is not required for clinical use | | | of the test, and therefore validation was done as required under the | | | requirements of the Clinical Laboratory Improvement Act of 1988. The | | | [facility] is a fully licensed and/or | | | accredited clinical laboratory under CLIA, CAP, and the State of | | | [place]. Reviewed and electronically signed by Jackie | | | MD Nae 06/14/2019 4:42 PM | | + + + + + + + + | Performing | Address | City/State/Zipcode | Phone Number | | Organization | | | | + + + + + | [facility] | [address] | [place] [address] | | | DIAGNOSTIC | [address] | | | | LABORATORIES | | | | + + + + + URIC ACID, PLASMA (06/10/2019 12:14 PM PDT) + +-------+ + + + | Component | Value | Ref Range | Performed | Pathologist | | | | | At | Signature | + +-------+ + + + | URIC ACID, | 3.8 | 2.5 - 6.2 mg/dL | [facility] | | | PLASMA | | | LABORATORY | | | (LAB) | | | SERVICES, | | | | | | [facility] | | | | | [facility] + | | | | | | HEALING | | + +-------+ + + + + + | Specimen | + + | Blood - Blood | | (substance) | + + + + + + + | Performing | Address | City/State/Zipcode | Phone Number | | Organization | | | | + + + + + | [facility] | [address] | [place] [address] | | | [facility] | | | | | HE[facility] + HEALING | | | | + + + + + documented in this encounter Visit Diagnoses + + | Diagnosis | + + | Chronic myeloid leukemia, BCR/ABL-positive, not having achieved remission (HCC) | | Chronic myeloid leukemia, without mention of having achieved remission | + + documented in this encounter
--- OUTSIDE RECORDS SUMMARY | ~2020-03-13 | XMS | Encounter Summary ---
Demographics + + + | Address | [address] | | | [place] [address] | + + + | Home Phone [...] Team Providers + +------+ + | Care Pewter Fabricator Name | Role | Phone | + [...] | | | | | | | [place] | | | | | | | DELIVERY | | | | | | | ONLY Repeat | | | | | | | | | | +--------+--------+ + + + + Encounter Details +--------+ + + + + | Date | Type | Department | Care Team | Description | +--------+ + + + + | 01/16/ | Anesthesia | [facility] | Jaun Canada | | | 2018 | Event | [facility] | MD Benjie [address] | | | | | [address] | [address] [place], [place] | | | | | [place], [place] | [address] | | | | | [address] | | | | | | [phone] | Ирина, | | | | | | Aftab Parra MD | | | | | | [address] | | | | | | [place], [place] | | | | | | [address] | | | | | | | | +--------+ + + + + Anesthesia Record + + + + + | Procedure Name | Responsible | Anesthesia Start | Anesthesia Stop Time | | | Anesthesiologist | Time | | + + + + + | Repeat , | Jaun Canada, | 01/16/18 1602 | 01/16/18 1711 | | Bilateral Tubal | MD | | | | Ligation (N/A | | | | | Abdomen) | | | | + + + + + +----+---+ + + | Da | T | Event | Comment | | te | i | | | | | m | | | | | e | | | +----+---+ + + | 03 | 1 | | | | /1 | 6 | | | | 3/ | 0 | | | | 20 | 0 | | | | 18 | | | | +----+---+ + + | | 1 | An Checkout | Pre-use anesthesia machine/equipment checkout. | | | 6 | | | | | 0 | | | | | 2 | | | +----+---+ + + | | 1 | An Start | Reassessment prior to anesthesia induction/procedure. | | | 6 | | | | | 0 | | | | | 2 | | | +----+---+ + + | | 1 | Epi/spinal | | | | 6 | Stop | | | | 0 | | | | | 9 | | | +----+---+ + + | | 1 | Antibiotic | | | | 6 | Given | | | | 0 | | | | | 9 | | | +----+---+ + + | | 1 | Surg Clmp | Patient comfortable no complaints | | | 6 | Tst Neg | | | | 1 | | | | | 5 | | | +----+---+ + + | | 1 | First | | | | 6 | Inc/Proc St | | | | 1 | | | | | 6 | | | +----+---+ + + | | 1 | Ut Incision | | | | 6 | | | | | 2 | | | | | 4 | | | +----+---+ + + | | 1 | Baby Deliv | | | | 6 | | | | | 2 | | | | | 4 | | | +----+---+ + + | | 1 | Baby Deliv | | | | 6 | | | | | 2 | | | | | 5 | | | +----+---+ + + | | 1 | Placenta | | | | 6 | Delivered | | | | 2 | | | | | 6 | | | +----+---+ + + | | 1 | An Stop | Patient handed off to recovery nurse. | | | 1 | | | | | 1 | | | +----+---+ + + +------+ | Meds | +------+ + + + | Name | Total | + + + | bupivacaine 0.75% (Intrathecal) | 12 mg | + + + | morphine (Intrathecal) | 200 mcg | + + + | ePHEDrine | 20 mg | + + + | oxytocin (Bolus) | 30 Units | + + + | ondansetron | 4 mg | + + + | ketorolac | 30 mg | + + + | Phenylephrine 100mcg/mL SYRINGE | 50 mg | + + + | ceFAZolin (ANCEF, KEFZOL) 100 | 2 g | | mg/mL IV syringe 2 g | | + + + | fentaNYL | 100 mcg | + + + | lactated ringers (LR) infusion | 2,000 mL | + + + | NS (Infusion) | 800 mL | + + + + + | Name | + + | N2O Flow Rate (L/Min) | + + | O2 Flow Rate (L/Min) | + + | Insp O2 | + + | Exp SEV | + + | Air Flow Rate (L/Min) | + + + + | No blood administrations on file. | + + +--------+ + + + | Type | Details | Placement | Removal | +--------+ + + + | Periph | 10/16/17; 0833; Right; | 10/16/17 0833 by | 12/13/18 1907 by | | eral | Antecubital; [id number] | Anitha Valdivia, | Sammie Presley, | | IV | catheter system; 20 gauge; no | Student LINOTYPE MACHINIST | RN | | | longer indicated, catheter/device | | | | | intact; 12/13/18; 1907 | | | +--------+ + + + | Periph | 01/16/18; 1455; Right; Hand; | 01/16/18 1455 by | 01/18/18 1200 by | | eral | [id number] catheter system; | Maricel Funez RN | Blanca Carrillo RN | | IV | 18 gauge; 0; tolerated well, | | | | | appears comfortable; 01/18/18; | | | | | 1200 | | | +--------+ + + + | Urethr | 01/16/18; 1611; indicated due to | 01/16/18 1611 by | 01/17/18 0630 by | | al | specific surgical procedure; 14; | Ivania Talavera RN | Maricel Wayne RN | | Cathet | leg bag to dependent drainage; | | | | er | urethral catheter removed; short | | | | | term use; 01/17/18; 0630 | | | +--------+ + + + | Read | 01/16/18; 1632; abdomen; 01/29/19 | 01/16/18 1632 by | 01/29/19 1342 by | | only - | (Completed/Removed by Utility); | Ivania Talavera RN | User Epic | | | 1342 (Completed/Removed by | | | | Incisi | Utility) | | | | on | | [...] [place] | | | | | | [address] | | | | | | | | +--------+ + + + + | 03/18/ | Office | Physical Medicine | Jovana Dawson | | | 2019 | Visit | and Rehabilitation | MELANY Man [address] | | | | | | [facility] | | | | | | [address] | | | | | | [address] | | | | | | | | +--------+ + + + + | 04/01/ | Appointment | Oncology | Deny Mcmanus, | | | 2019 | | | MD [address] | | | | | | [place], | | | | | | [place] [address] | | | | | | [phone] | | | | | | | | +--------+ + + + + | 04/08/ | Procedure | Physical Medicine | Leonard De Leon | | | 2019 | visit | and Rehabilitation | MD Audelia [address] | | | | | | [place], [place] | | | | | | [address] | | | | | | | | +--------+ + + + + | 04/30/ | Office | Cardiology | Shad Saavedra, | | | 2019 | Visit | | [address] | | | | | | [facility], | | | | | | [place] [address] | | | | | | [phone] | | | | | | | | +--------+ + + + + documented as of this encounter Procedures + +--------+ + + + | Procedure Name | Priori | Date/Time | Associated Diagnosis | Comments | | | ty | | | | + +--------+ + + + | ANE EPIDURAL NOTE | Routin | 01/16/2018 | | Results for this | | | e | 4:43 PM | | procedure are in the | | | | PDT | | results section. | + +--------+ + + + documented in this encounter Results Anesthesia Epidural Note (01/16/2018 4:43 PM PDT) + + + | Narrative | Performed At | + + + | Jaun Canada MD 01/16/2018 16:48 Neuraxial Procedure | | | Note 01/16/2018 16:04 Procedure: single-shot spinal anesthesia | | | Provider requested procedure: Dr. Justine Beal DO Indication: | | | surgical anesthesia Preprocedure check: patient identified, | | | procedure and rescue equipment checked, risks/benefits discussed, | | | timeout performed, reassessment prior to procedure, consent | | | obtained, preevaluation including airway assessment complete and | | | monitors applied Patient position: sitting Preparation: | | | chlorhexidine/isopropyl alcohol, drape, 1% lidocaine infiltration, | | | Introducer used: yes Local anesthetic infiltration volume: 3 mL | | | Procedure level: L3-4 Approach: midline Needle size: 25 g Needle | | | length: 3.5 in Medication administered through: needle Negative | | | findings: no blood aspirated and no paresthesia Positive findings: | | | CSF aspirated Attempts: 1 Ease of procedure: easy Performing | | | provider: JAUN CANADA Comments: Risks and benefits of | | | intrathecal narcotics discussed with patient. The patient agrees | | | to proceed answered all questions. The block is being done for | | | post op pain control at the request of the patient and the surgeon. | | | The patient was brought to the operating room and monitors were | | | applied. The patient was sedated and placed in the sitting position. | | | The L3-4 area was identified and the site marked. A time out was | | | taken. The area prepped with chlorhexidine for 30 seconds. The | | | area was then draped in the usual sterile fashion. Utilizing a 25 | | | ga needle, 3 cc of 1% lidocaine was used to anesthetize the skin and | | | sub-Q area. Using a 20 ga introducer, a 25 ga Alice needle was | | | used and after one positioning, the intrathecal space was entered. | | | No heme or paresthesias were noted. See the anesthesia record for | | | medications used and amounts given. The patient tolerated the | | | procedure well, no complication was noted. portex 50584-04 Lot: | | | [id number] 08/07/2018 F Please see anesthesia record or | | | flowsheet for vital sign documentation and see anesthesia record or | | | MAR for all medication documentation. Electronically Signed by: | | | MD Jonnathan Marmolejo date/time: | | | 01/16/2018 16:43 | | + + + + + | Procedure Note | + + | Jaun Canada MD - 01/16/2018 4:43 PM PDT Neuraxial Procedure Note01/16/2018 | | 16:04Procedure: single-shot spinal anesthesiaProvider requested procedure: Dr. Fletcher | | Emigdio DOIndication: surgical anesthesiaPreprocedure check: patient identified, | | procedure and rescue equipment checked, risks/benefits discussed, timeout performed, | | reassessment prior to procedure, consent obtained, preevaluation including airway | | assessment complete and monitors appliedPatient position: sittingPreparation: | | chlorhexidine/isopropyl alcohol, drape, 1% lidocaine infiltration, Introducer used: | | yesLocal anesthetic infiltration volume: 3 mLProcedure level: L3-4Approach: | | midlineNeedle size: 25 gNeedle length: 3.5 inMedication administered through: | | needleNegative findings: no blood aspirated and no paresthesiaPositive findings: CSF | | aspiratedAttempts: 1Ease of procedure: easyPerforming provider: JAUN CANADA | | GComments: Risks and benefits of intrathecal narcotics discussed with patient. The | | patient agrees to proceed answered all questions. The block is being done for post op | | pain control at the request of the patient and the surgeon. The patient was brought to | | the operating room and monitors were applied. The patient was sedated and placed in | | the sitting position. The L3-4 area was identified and the site marked. A time out was | | taken. The area prepped with chlorhexidine for 30 seconds. The area was then draped | | in the usual sterile fashion. Utilizing a 25 ga needle, 3 cc of 1% lidocaine was used | | to anesthetize the skin and sub-Q area. Using a 20 ga introducer, a 25 ga Alice | | needle was used and after one positioning, the intrathecal space was entered. No heme | | or paresthesias were noted. See the anesthesia record for medications used and amounts | | given. The patient tolerated the procedure well, no complication was noted.portex | | 94633-81 Lot: [id number] 08/07/2018 FPlease see anesthesia record or flowsheet for | | vital sign documentation and see anesthesia record or MAR for all medication | | documentation. Electronically Signed by: MD Jonnathan Marmolejo | | date/time: 01/16/2018 16:43 | |portex [id number] Lot: [id number] 08/07/2018 F | | | |Please see anesthesia record or flowsheet for vital sign documentation and see anesthesia r ecord or MAR for all medication documentation. | | | |Electronically Signed by: MD Jonnathan Marmolejo date/time: 018 16:43 | + + documented in this encounter Visit Diagnoses Not on filedocumented in this encounter Administered Medications + +--------+ +-------+------+------+ | Medication Order | MAR | Action | Dose | Rate | Site | | | Action | Date | | | | + +--------+ +-------+------+------+ | bupivacaine 0.75%-dextrose | Given | 01/17/20 | 12 mg | | | | 8.25% (MARCAINE SPINAL) injection | | 18 4:08 | | | | | INTRATHECAL, PRN, Starting Tue | | PM PDT | | | | | 01/16/18 at 1608, Anesthesia | | | | | | | Intra-op | | | | | | + +--------+ +-------+------+------+ +---+---+ | | | +---+---+ + +-------+ +-----+---+---+ | ceFAZolin (ANCEF, KEFZOL) 100 | Given | 01/17/20 | 2 g | | | | mg/mL IV syringe 2 g 2 g, | | 18 4:09 | | | | | Intravenous, Administer over 30 | | PM PDT | | | | | Minutes, Prior to Incision, | | | | | | | Starting [facility] 01/16/18 at 1456, For | | | | | | | 1 dose, Give within one hour | | | | | | | prior to incision., Pre-op, | | | | | | | Indications: Surgical Prophylaxis | | | | | | + +-------+ +-----+---+---+ +---+---+ | | | +---+---+ + +-------+ +-------+---+---+ | ePHEDrine 50 mg/mL injection | Given | 01/17/20 | 10 mg | | | | PRN, Starting 01/16/18 at | | 18 4:21 | | | | | 1621, Anesthesia Intra-op | | PM PDT | | | | + +-------+ +-------+---+---+ +-------+ +-------+---+---+ | Given | 01/17/20 | 10 mg | | | | | 18 4:17 | | | | | | PM PDT | | | | +-------+ +-------+---+---+ +---+---+ | | | +---+---+ + +-------+ +---------+---+---+ | fentaNYL (PF) injection | Given | 01/17/20 | 100 mcg | | | | Intravenous, PRN, Pain, Starting | | 18 4:53 | | | | | 01/16/18 at 1653, Anesthesia | | PM PDT | | | | | Intra-op | | | | | | + +-------+ +---------+---+---+ +---+---+ | | | +---+---+ + +-------+ +-------+---+---+ | ketorolac (TORADOL) injection | Given | 01/17/20 | 30 mg | | | | Intravenous, PRN, Pain, Starting | | 18 4:47 | | | | | 01/16/18 at 1647, Anesthesia | | PM PDT | | | | | Intra-op | | | | | | + +-------+ +-------+---+---+ +---+---+ | | | +---+---+ + +---------+ +---+---+---+ | lactated ringers (LR) infusion | New Bag | 01/17/20 | | | | | at 125 mL/hr, Intravenous, | | 18 3:44 | | | | | CONTINUOUS, Starting 01/16/18 | | PM PDT | | | | | at 1515, See anesthesiology order | | | | | | | for bolus, Pre-op | | | | | | + +---------+ +---+---+---+ +---------+ +---+---+---+ | New Bag | 01/17/20 | | | | | | 18 2:55 | | | | | | PM PDT | | | | +---------+ +---+---+---+ +---+---+ | | | +---+---+ + +-------+ +---------+---+---+ | morphine (PF) (DURAMORPH) 0.5 | Given | 01/17/20 | 200 mcg | | | | mg/mL injection INTRATHECAL, | | 18 4:08 | | | | | PRN, Pain, Starting 01/16/18 | | PM PDT | | | | | at 1608, Anesthesia Intra-op | | | | | | + +-------+ +---------+---+---+ +---+---+ | | | +---+---+ + +-------+ +------+---+---+ | ondansetron (ZOFRAN) injection | Given | 01/17/20 | 4 mg | | | | Intravenous, PRN, Nausea, | | 18 4:44 | | | | | Vomiting, Starting 01/16/18 at | | PM PDT | | | | | 1644, Anesthesia Intra-op | | | | | | + +-------+ +------+---+---+ +---+---+ | | | +---+---+ + +-------+ + +---+---+ | oxytocin (PITOCIN) injection | Given | 01/17/20 | 30 Units | | | | Intravenous, PRN, Starting Tu 18 4:26 | | | | | 01/16/18 at 1626, Anesthesia | | PM PDT | | | | | Intra-op | | | | | | + +-------+ + +---+---+ +---+---+ | | | +---+---+ + +-------+ +-------+---+---+ | phenylephrine (NEW-SYNEPHRINE) | Given | 01/17/20 | 50 mg | | | | 100 mcg/mL injection | | 18 4:21 | | | | | Intravenous, PRN, Starting Tue | | PM PDT | | | | | 01/16/18 at 1621, Anesthesia | | | | | | | Intra-op | | | | | | + +-------+ +-------+---+---+ +---+---+ | | | +---+---+ + +---------+ +---+---+---+ | sodium chloride 0.9% (NS) | New Bag | 01/17/20 | | | | | infusion Intravenous, CONTINUOUS | | 18 4:17 | | | | | PRN, Starting 01/16/18 at | | PM PDT | | | | | 1617, Anesthesia Intra-op | | | | | | + +---------+ +---+---+---+ +---+---+ | | | +---+---+ documented in this encounter"
--- OUTSIDE RECORDS SUMMARY | ~2020-03-13 | XMS | Encounter Summary ---
Demographics + + + | Address | [address] | | | [place] [address] | + + + | Home Phone [...] Providers + +------+ + | Care Back Facer Name | Role | Phone | + +------+ + | Nhi Oneal MD | PCP | | + +------+ + Reason for Visit Service/Procedure (Routine) +--------+--------+ + + + + | Status | Reason | Specialty | Diagnoses / | Referred By | Referred To | | | | | Procedures | Contact | Contact | +--------+--------+ + + + + | Closed | | Radiology | Diagnoses | | [facility] | | | | | Pain in | [place], | [address] | | | | | joint, | Leonard Win MD | [place], | | | | | shoulder | [address] | [place] | | | | | region | [place] | [address] | | | | | Procedures | [place], [place] | Phone: | | | | | [place] | [address] | [phone] | | | | | DRAIN/INJECT | Phone: | Fax: | | | | | [place]AR[place] | [phone] | [phone] | | | | | JOINT/BURSA | Fax: | | | | | | [place] | [phone] | | | | | | TRIAMCINOLON | | | | | | | E ACET INJ | | | | | | | NOS, 10 MG | | | | | | | [place] | | | | | | | FLUOROSCOPIC | | | | | | | GUIDANCE | | | | | | | NEEDLE | | | | | | | PLACEMENT | | | | | | | Left | | | | | | | Intraarticul | | | | | | | ar | | | | | | | shoulder-Dir | | | | | | | ect referral | | | | | | | from Dominguez | | | | | | | [facility] | | | +--------+--------+ + + + + Encounter Details +--------+ + + + + | Date | Type | Department | Care Team | Description | +--------+ + + + + | 03/04/ | Hospital | [facility] | Leonard De Leon | Left shoulder pain | | 2013 | Encounter | MED CTR XRAY [address] | [address], [address] | | | | | [address] [place] | [facility] [place], [place] | | | | | [place] [address] | [address] | | | | | [phone] | | | | | | | [place], [place] | | | | | | [place] | | +--------+ + + + + [...] +---------+ + + | Blood Pressure | 130/83 | 03/04/2014 4:57 PM | | | | | PDT | | + +---------+ + + | Pulse | 127 | 03/04/2014 4:57 PM | | | | | PDT [...] [place] | | | | | | [address] | | | | | | | | +--------+ + + + + | 03/18/ | Office | Physical Medicine | Jovana Dawson | | | 2019 | Visit | and Rehabilitation | MELANY Man [address] | | | | | | [address] | | | | | | [address] | | | | | | [address] | | | | | | | | +--------+ + + + + | 04/01/ | Appointment | Oncology | Deny Mcmanus, | | | 2019 | | | MD [address] | | | | | | [place] | | | | | | [place] [address] | | | | | | [phone] | | | | | | | | +--------+ + + + + | 04/08/ | Procedure | Physical Medicine | Leonard De Leon | | 2019 | visit | and Rehabilitation | MD Kiki [address] | | | | | | [place], [place] | | | | | | [address] | | | | | | | | +--------+ + + + + | 04/30/ | Office | Cardiology | Shad Saavedra, | | | 2019 | Visit | | MD [address] | | | | | | [place], | | | | | | [place] [address] | | | | | | [phone] | | | | | | | | +--------+ + + + + documented as of this encounter Procedures + +--------+ + + + | Procedure Name | Priori | Date/Time | Associated Diagnosis | Comments | | | ty | | | | + +--------+ + + + | FL ASPIRATION | Routin | 03/04/2014 | Left shoulder pain | Results for this | | INJECTION MAJOR | e | 4:43 PM | | procedure are in the | | JOINT RIGHT | | PDT | | results section. | + +--------+ + + + documented in this encounter Results FL Major Joint Injection Right (03/04/2014 4:43 PM PDT) + + | Specimen | + + | | + + + + + | Narrative | Performed At | + + + | 03/05/2014 LEFT INTRAARTICULAR GLENOHUMERAL JOINT INJECTION | [facility] | | CLINICAL HISTORY: ICD-9 CODE 719.41, SHOULDER PAIN Ashley | [facility] | | Eliseo Webb presents to the fluoroscopy suite for a MEDICAL MOOSUP | | fluoroscopically-guided left glenohumeral joint injection as part of | - IMAGING | | conservative management for chronic shoulder pain and arthropathy. | | | After informed consent was obtained, the patient laid in the prone | | | position on the fluoroscopy table. The area was located under | | | fluoroscopic guidance. The area was prepped and draped in a sterile | | | fashion. Then a 25-gauge 1.5 inch needle was inserted into this | | | region and approximately 3 mL buffered 1% lidocaine was infused. | | | Next a 22-gauge spinal needle was inserted into the joint space | | | under fluoroscopic guidance. Confirmation into the joint capsule was | | | obtained with infusion of approximately 1 mL Omnipaque contrast, | | | which showed capsular flow. Then, a combination of 1.5 mL of 6 | | | mg/mLCelestone and 3.5 mL 0.5%bupivicaine was infused. The patient | | | tolerated the procedure well without complications. Pre- and | | | post-procedure blood pressure was stable. The patient was given verbal | | | as well as written followup instructions. The patient reported good | | | improvement in pain symptoms post-procedure. Prior to the | | | start of the procedure, the following were performed or verified, | | | including correct patient identity, correct site/side marked and | | | verified, agreement of the procedure to be done, correct patient | | | positioning and an accurate procedure consent form. Any safety | | | precautions based on clinical history and/or medication use have | | | been addressed. I personally performed the procedure above. | | | Estimated blood loss: Minimal Complications: None Findings: As | | | expected Anesthesia: Local 1% Lidocaine | | + + + + + | Procedure Note | + + | Leonard De Leon MD - 03/05/2014 6:11 PM PDT 03/05/2014LEFT INTRAARTICULAR | | GLENOHUMERAL JOINT INJECTIONCLINICAL HISTORY: ICD-9 CODE 719.41, SHOULDER PAINKathryn | | Eliseo Webb presents to the fluoroscopy suite for a fluoroscopically-guided left | | glenohumeral joint injection as part of conservative management for chronic shoulder | | pain and arthropathy. After informed consent was obtained, the patient laid in the | | prone position on the fluoroscopy table. The area was located under fluoroscopic | | guidance. The area was prepped and draped in a sterile fashion. Then a 25-gauge 1.5 inch | | needle was inserted into this region and approximately 3 mL buffered 1% lidocaine was | | infused. Next a 22-gauge spinal needle was inserted into the joint space under | | fluoroscopic guidance. Confirmation into the joint capsule was obtained with infusion of | | approximately 1 mL Omnipaque contrast, which showed capsular flow. Then, a combination | | of 1.5 mL of 6 mg/mLCelestone and 3.5 mL 0.5%bupivicaine was infused. The patient | | tolerated the procedure well without complications. Pre- and post-procedure blood | | pressure was stable. The patient was given verbal as well as written followup | | instructions. The patient reported good improvement in pain symptoms post-procedure. | | Prior to the start of the procedure, the following were performed or verified, including | | correct patient identity, correct site/side marked and verified, agreement of the | | procedure to be done, correct patient positioning and an accurate procedure consent | | form. Any safety precautions based on clinical history and/or medication use have been | | addressed. I personally performed the procedure above.Estimated blood loss: | | MinimalComplications: NoneFindings: As expectedAnesthesia: Local 1% Lidocaine | |Anesthesia: Local 1% Lidocaine | + + + + + + + | Performing | Address | City/State/Zipcode | Phone Number | | Organization | | | | + + + + + | [facility] | [address] | [place] | [phone] | | [facility] | | [address] | | | - IMAGING | | | | + + + + + documented in this encounter Visit Diagnoses + + | Diagnosis | + + | Left shoulder pain Pain in joint, shoulder region | + + documented in this encounter Administered Medications + +--------+ +-------+------+ + | Medication Order | MAR | Action | Dose | Rate | Site | | | Action | Date | | | | + +--------+ +-------+------+ + | betamethasone (CELESTONE | Given | 03/04/20 | 12 mg | | Other | | SOLUSPAN) injection 12 mg 12 mg, | | 14 5:00 | | | (Comment | | Intramuscular, EVERY 24 HOURS | | PM PDT | | | ) | | INTERVAL, First dose on Mon | | | | | | | 03/04/14 at 1700, For 2 doses, | | | | | | | Shake well. Not for IV use., | | | | | | + +--------+ +-------+------+ + +---+---+ | | | +---+---+ + +-------+ +-------+---+---+ | iohexol (OMNIPAQUE 300) 300 | Given | 03/04/20 | 4 mLs | | | | mg/mL injection 4 mL 4 mL, | | 14 5:00 | | | | | INTRATHECAL, ONCE, 03/04/14 at | | PM PDT | | | | | 1700, For 1 dose | | | | | | + +-------+ +-------+---+---+ +---+---+ | | | +---+---+ + +-------+ +-------+---+ + | lidocaine 1% injection 5 mL 5 | Given | 03/04/20 | 5 mLs | | Other | | mL, Intradermal, ONCE, Tue | | 14 5:00 | | | (Comment | | 03/04/14 at 1700, For 1 dose | | PM PDT | | | ) | + +-------+ +-------+---+ + +---+---+ | | | +---+---+ + +-------+ +-------+---+---+ | sodium bicarbonate (NEUT) 4% | Given | 03/04/20 | 2 mLs | | | | injection 2 mL 2 mL, Topical, | | 14 5:00 | | | | | ONCE, Kareen 03/04/14 at 1700, For 1 | | PM PDT | | | | | dose | | | | | | + +-------+ +-------+---+---+ +---+---+ | | | +---+---+ documented in this encounter"
--- OUTSIDE RECORDS SUMMARY | ~2020-03-13 | XMS | Encounter Summary ---
Demographics + + + | Address | [address] | | | [place] [address] | + + + | Home Phone | | + + + | Preferred Language | Unknown | + + + | Marital Status | Single | + + + | Mu-Ism Affiliation | NON | + + + | Race | White | + + + | Ethnic Group | Not or | + + + Author + + + | Author | [facility] | + + + | Organization | [facility] | + + + | Address | [...] Team Providers + +------+ + | Care Surface Mount Technology Operator Name | Role | Phone | + +------+ + | Burton Masters MD | PCP | | + +------+ + Encounter Details +--------+ + + + + | Date | Type | Department | Care Team | Description | +--------+ + + + + | 01/03/ | Pharmacy | Outpatient Retail | | | | 2019 | Visit | [facility] | | | | | | [address] | | | | | | [address] [place], [place] | | | | | | [address] | | | | | | [phone] | | | +--------+ + + + [...] | 2020 | Visit | Malignancy | [address] | | | | | | [place], [place] | | | | | | [address] | | | | | | [phone] | | | | | | | | +--------+---------+ + + + documented as of this encounter Visit Diagnoses Not on filedocumented in this encounter"
--- OUTSIDE RECORDS SUMMARY | ~2020-03-13 | XMS | Encounter Summary ---
Demographics + + + | Address | [address] [facility] [facility] | | | [place] [address] | + + + | Home Phone | | + + + | Preferred Language | Unknown | + + + | Marital Status | | + + + | Evangelical Affiliation | Unknown | + + + [...] Team Providers + +------+ + | Care Mender Hand Name | Role | Phone | [...] Description | +--------+--------+ + + + | 10/25/ | Refill | [facility] | Burton Masters, | Medication Refill | | 2019 | | [facility] [place] | [address] | | | | | [address] | [place] | | | | | [place] | [address] | | | | | [address] | | | | | | [phone] | | | +--------+--------+ + + + [...] [place] | | | | | | [address] | | | | | | | | +--------+ + + + + | 03/18/ | Office | Physical Medicine | Jovana Dawson | | | 2019 | Visit | and Rehabilitation | MELANY Man [address] | | | | | | [address] [facility] | | | | | | [address] [place] | | | | | | [address] | | | | | | | | +--------+ + + + + | 04/01/ | Appointment | Oncology | Deny Mcmanus, | | | 2019 | | | MD [address] | | | | | | [place] | | | | | | [place] [address] | | | | | | [phone] | | | | | | | | +--------+ + + + + | 04/08/ | Procedure | Physical Medicine | Leonard De Leon | | | 2019 | visit | and Rehabilitation | MD Kiki Win | | | | | | [place] | | | | | | [address] | | | | | | | | +--------+ + + + + | 04/30/ | Office | Cardiology | Shad Saavedra, | | | 2019 | Visit | | MD Alan Cruz | | | | | | [place], | | | | | | [place] [address] | | | | | | [phone] | | | | | | | | +--------+ + + + + documented as of this encounter Visit Diagnoses Not on filedocumented in this encounter"
--- OUTSIDE RECORDS SUMMARY | ~2020-03-13 | XMS | Encounter Summary ---
Demographics + + + | Address | [address] | | | [place] [address] | + + + | Home Phone [...] Team Providers + +------+ + | Care Aircraft Seat Upholsterer Name | Role | Phone | + [...] Description | +--------+--------+ + + + | 12/19/ | Refill | [facility] | Burton Masters, | Medication Refill | | 2020 | | [facility] [place] | [address] | | | | | [address] | [place] | | | | | [place] | [address] | | | | | [address] | | | | | | [phone] | | | +--------+--------+ + + + [...] [place] | | | | | | [address] | | | | | | | | +--------+ + + + + | 03/18/ | Office | Physical Medicine | Jovana Dawson | | | 2019 | Visit | and Rehabilitation | [address]EL[address] Man [address] | | | | | | [address] [facility] | | | | | | [address] [place] | | | | | | [address] | | | | | | | | +--------+ + + + + | 04/01/ | Appointment | Oncology | Deny Mcmanus, | | | 2019 | | | MD [address] | | | | | | [place] | | | | | | [place] [address] | | | | | | [phone] | | | | | | | | +--------+ + + + + | 04/08/ | Procedure | Physical Medicine | Leonard De Leon | | | 2019 | visit | and Rehabilitation | MD Kiki Win | | | | | | [place] | | | | | | [address] | | | | | | | | +--------+ + + + + | 04/30/ | Office | Cardiology | Shad Saavedra, | | | 2019 | Visit | | MD Alan Cruz | | | | | | [place], | | | | | | [place] [address] | | | | | | [phone] | | | | | | | | +--------+ + + + + documented as of this encounter Visit Diagnoses Not on filedocumented in this encounter"
--- OUTSIDE RECORDS SUMMARY | ~2020-03-13 | XMS | Encounter Summary ---
Demographics + + + | Address | [address] | | | [place] [address] | + + + | Home Phone [...] Providers + +------+ + | Care Manager Garage Name | Role | Phone | + [...] Description | +--------+--------+ + + + | 11/12/ | Refill | [facility] | Burton Masters, | Medication Refill | | 2020 | | [facility] [place] | [address] | | | | | [address] | [place] | | | | | [place] | [address] | | | | | [address] | | | | | | [phone] | | | +--------+--------+ + + + [...] [place] | | | | | | [address] | | | | | | | | +--------+ + + + + | 03/18/ | Office | Physical Medicine | Jovana Dawson | | | 2019 | Visit | and Rehabilitation | M[address] Man [address] | | | | | | [address] [facility] | | | | | | [address] [place] | | | | | | [address] | | | | | | | | +--------+ + + + + | 04/01/ | Appointment | Oncology | Deny Mcmanus, | | | 2019 | | | MD [address] | | | | | | [place] | | | | | | [place] [address] | | | | | | [phone] | | | | | | | | +--------+ + + + + | 04/08/ | Procedure | Physical Medicine | Leonard De Leon | | | 2019 | visit | and Rehabilitation | MD Kiki Win | | | | | | [place] | | | | | | [address] | | | | | | | | +--------+ + + + + | 04/30/ | Office | Cardiology | Shad Saavedra, | | | 2019 | Visit | | MD Alan Cruz | | | | | | [place], | | | | | | [place] [address] | | | | | | [phone] | | | | | | | | +--------+ + + + + documented as of this encounter Visit Diagnoses Not on filedocumented in this encounter"
--- OUTSIDE RECORDS SUMMARY | ~2020-03-13 | XMS | Encounter Summary ---
Demographics + + + | Address | [address] | | | [place] [address] | + + + | Home Phone [...] Team Providers + +------+ + | Care Flux Mixer Name | Role | Phone | + +------+ + | Burton Masters MD | PCP | | + +------+ + Reason for Visit + + + | Reason | Comments | + + + | Paperwork | [place] | + + + Encounter Details +--------+ + + + + | Date | Type | Department | Care Team | Description | +--------+ + + + + | 04// | Telephone | [facility] | Burton Masters, | Paperwork (Silvia) | | 2019 | | [facility] [place] | [address] | | | | | [address] | [place] | | | | | [place] | [address] | | | | | [address] | | | | | | [phone] | | | +--------+ + + + [...] | | | Visit | | [address] [facility] | | | | | | [place] | | | | | | [address] | | | | | | | | +--------+ + + + + | 03/18/ | Office | Physical Medicine | Jovana Dawson | | | 2019 | Visit | and Rehabilitation | M[address] Man [address] | | | | | | [address] [facility] | | | | | | [address] [place] | | | | | | [address] | | | | | | | | +--------+ + + + + | 04/01/ | Appointment | Oncology | Deny Mcmanus, | | 2019 | | | MD Alan CRUZ | | | | | | [place] | | | | | | [place] [address] | | | | | | [phone] | | | | | | | | +--------+ + + + + | 04/08/ | Procedure | Physical Medicine | Leonard De Leon | | 2019 | visit | and Rehabilitation | MD Kiki Win | | | | | | [place] | | | | | | [address] | | | | | | | | +--------+ + + + + | 04/30/ | Office | Cardiology | Shad Saavedra, | | | 2019 | Visit | | MD Alan Cruz | | | | | | [place] | | | | | | [place] [address] | | | | | | [phone] | | | | | | | | +--------+ + + + + documented as of this encounter Visit Diagnoses Not on filedocumented in this encounter"
--- OUTSIDE RECORDS SUMMARY | ~2020-03-13 | XMS | Encounter Summary ---
Demographics + + + | Address | [address] | | | [place] [address] | + + + | Home Phone | | + + + | Preferred Language | Unknown | + + + | Marital Status | Single | + + + | Pentecostal Affiliation | NON | + + + [...] Team Providers + +------+ + | Care Patrol Sergeant Name | Role | Phone | + +------+ + | Burton Masters MD | PCP | | + +------+ + Encounter Details +--------+--------+ + + + | Date | Type | Department | Care Team | Description | +--------+--------+ + + + | 04/29/ | Travel | | | | | [...] [address] | | | | | | [place] | | | | | | [address] | | | | | | [phone] | | | | | | | | +--------+---------+ + + + documented as of this encounter Visit Diagnoses Not on filedocumented in this encounter"
--- OUTSIDE RECORDS SUMMARY | ~2020-03-13 | XMS | Encounter Summary ---
Demographics + + + | Address | [address] | | | [place] [address] | + + + | Home Phone [...] Team Providers + +------+ + | Care Pelt Inspector Name | Role | Phone | [...] | Physical | Diagnoses | [place], | [place], | | | Services | Medicine and | ROBERT | Burton | Leonard Win MD | | | Required | Rehabilitatio | (degenerativ | [place] [address] | [address] | | | | n | e disc | [address] | [facility] | | | | | disease), | [address] | [place], [place] | | | | | lumbar | [place] | [address] Phone: | | | | | Lumbar | [address] | [phone] | | | | | radiculopath | Phone: | Fax: | | | | | y | [phone] | [phone] | | | | | Osteoarthrit | Fax: | | | | | | is of spine | [phone] | | | | | | with | | | | | | | radiculopath | | | | | | | y, lumbar | | | | | | | region | | | +--------+ + + + + + Reason for Visit + + + | Reason | Comments | + + + | Back Pain | | + + + Evaluate & [...] | | back | [address] | [place], [place] | | | | | location, | [place], | [address] | | | | | unspecified | [place] [address] | Phone: | | | | | back pain | Phone: | [phone] | | | | | laterality, | [phone] | Fax: | | | | | unspecified | Fax: | [phone] | | | | | chronicity | [phone] | | +--------+ + + + + + Encounter Details +--------+---------+ + + + | Date | Type | Department | Care Team | Description | +--------+---------+ + + + | 03/07/ | Office | [facility] | [place], Burton | DDD (degenerative | | 2017 | Visit | NEUROSURGERY [address] | [address] | disc disease), | | | | [address] | lumbar (Primary Dx); | | | | [place], [place] | [place] [address] | Lumbar | | | | [address] | [phone] | radiculopathy - left | | | | [phone] | | lower extremity; | | | | | | Osteoarthritis [...] + + + | Blood Pressure | 117/75 | 03/07/2017 9:06 AM | | | | | PDT | | + + + + + | Pulse | 103 | 03/07/2017 9:06 AM | | | | | PDT [...] Weight | 93.9 kg (207 lb) | 03/07/2017 9:06 AM | | | | | PDT | | + + + + + | Height | 172.7 cm (5' 8") | 03/07/2017 9:06 AM | | | | | PDT | | + + + + + | Body Mass Index | 31.47 | 03/07/2017 9:06 AM | | | | | PDT | | + + + + + documented in this encounter Patient Instructions Patient Instructions Burton Swift PA-C - 03/07/2017 9:59 AM PDTToday we decided t o intensify conservative therapy. Please continue to work with your primary care provider a s well as with physiatry. We also discussed smoking cessation today. documented in this encounter Progress Notes Burton Swift PA-C - 03/07/2017 9:11 AM PDTFormatting of this note might be differ ent from the original. Burton Swift PA-C [address] [facility], [address] [place] [address] FAX: NEUROSURGERY HISTORY AND PHYSICAL EXAMINATION CHIEF COMPLAINT: Chief Complaint Patient presents with Back Pain HISTORY OF PRESENT ILLNESS: The patient is a 32 y.o. female with the complaint of back and left leg pain symptoms that began 7 years agoThe patient describes low back pain that began March 2010. Patient states she is unaware of any specific injury. The symptoms have been gradually worsening. She rates the pain as severe. The symptoms ar e continuous. She describes the pain as sharp, numbing, tingling, shooting and throbbing. Patient states that her back pain is worse than her leg pain. The patient describes leg symptoms that occur on primarily on the left. The leg symptoms a ccount for 20 of her symptoms. The leg symptoms are intermittent, and the symptoms travel f rom the back to posterior thigh that radiates to the foot and second toe. The patient also describes the loss of the ability to walk distances without sitting, the absence of position sense, numbness of the leg, numbness of the foot and weakness of the leg. The patient does not report any change in bowel or bladder function recently. Her symptoms improve with standing and sitting. Her symptoms worsen with rest, changing position, standing and sitting. She has tried PT and Opioids. The patient is currently taking opioids. These measures are currently helping. PAST MEDICAL HISTORY: Past Medical History Diagnosis [...] breasts associated with childbirth, delivered Sciatica Flu PAST SURGICAL HISTORY: Past Surgical History Procedure Laterality Date section 02/05/2010 Dr. Evans DELIA Dilation and curettage of uterus 05/13/2015 section N/A 10/14/2016 Procedure: Repeat ; Surgeon: Dorota Beal DO; Location: [facility] MAIN OR Breast cyst aspiration Left Shoulder surgery 08/2014 CURRENT MEDICATIONS: Current Outpatient Prescriptions Medication Sig Dispense Refill HYDROcodone-acetaminophen (NORCO) 5-325 mg per tablet Take 1 tablet by mouth every 12 h ours as needed for Pain. 60 tablet 0 No current facility-administered medications for this visit. ALLERGIES: No Known Allergies SOCIAL HISTORY: The patient reports that she has been smoking Cigarettes. She started smoking about 16 ye ars ago. She has a 8 pack-year smoking history. She has never used smokeless tobacco. She re ports that she drinks alcohol. She reports that she does not use illicit drugs. FAMILY HISTORY: Family History Problem Relation Age of Onset High blood pressure Mother Multiple sclerosis Mother High blood pressure Father High cholesterol Father Gout Father No Known Problems Brother No Known Problems Sister No Known Problems Child No Known Problems Child No Known Problems Child Heart disease Paternal Grandfather Hypertension Paternal Grandfather Heart attack Paternal Grandfather Obesity Paternal Grandmother Hypertension Paternal Grandmother Alcohol abuse Maternal Grandfather Heart disease Maternal Grandfather Hypertension Maternal Grandfather Stroke Maternal Grandfather Heart attack Maternal Grandfather Miscarriages / stillbirths Maternal Grandmother Stroke Maternal Grandmother Diabetes Maternal Grandmother No Known Problems Paternal Uncle Cancer Paternal Aunt Cancer Maternal Aunt Heart disease Maternal Aunt REVIEW OF SYSTEMS: GENERALLY: No fever, no [...] present illness. In addition, the patient has numbness and pain of legs, pain in back. PSYCHIATRIC: + depression, no sleep disorders, no anxiety, no bipolar disorder, no psychot ic episodes. CARDIOVASCULAR: No heart attacks, no heart murmur, no heart fluttering, no chest pain, no ankle swelling. LUNG DISEASE: No shortness of breath, [...] no personal h istory of cancer. RHEUMATOLOGIC: + joint arthritis, no rheumatoid arthritis. PHYSICAL EXAMINATION: Blood pressure 117/75, pulse 103, height 1.727 m (5' 8"), weight 93.895 kg (207 lb), not cu rrently . Body mass index is 31.48 kg/(m^2). GENERAL: Ashley Webb is in no acute distress with unlabored respirations. The pa tient does appear uncomfortable throughout the exam today. HEENT: Head: Normocephalic/atraumatic with no areas of recent trauma. Eyes: Normal sclerae without icterus. Ears: No drainage or tenderness. Nasopharnyx: Clear without drainage. Oropharnyx: Clear without erythema. NECK (ANTERIOR): Supple and without palpable masses. CHEST: Clear to ausculation without crackles or wheeze. HEART: Regular rate and rhythm without murmurs. ABDOMEN: Soft, non-tender, non-distended, and without palpable masses. The patient is not o bese. SPINE: There is no tenderness of there cervical or thoracic spine. The lumbar spine shows there is tenderness in the midline of the L5-S1 levels. To palpatio n, there is no significant myofascial tenderness. There is significant pain to provacative testing of the left SI joint. There is no major deformity noted. EXTREMITIES: No cyanosis, clubbing, or edema. Distal pulses are palpable. NEUROLOGICAL EXAM: MENTAL STATUS: The patient is awake, alert, and oriented. She follows simple and complex commands. Her speech is fluent, she comprehends speech well, and she repeats well. She has no apparent deficits with short or terminal operations manager memory. CRANIAL NERVES: II: Acuity is intact. Obrien are full to confrontation. III, IV, : The pupils are reactive. Extraocular movements are intact. No ptosis is note d. V: Facial sensation is intact and symmetric. VII: Facial movements are symmetric. VIII: Hearing is intact bilaterally. IX, X: The uvula and palate move appropriately. XI: Shrug is equal bilaterally. XII: Tongue protrusion is midline. MOTOR EXAM: (5 IS NORMAL) * Indicates pain limited MUSCLE/ MOVEMENT: RIGHT LEFT Deltoids 5 5 Biceps 5 5 Triceps 5 5 Wrist Flexion 5 5 Wrist Extension 5 5 Median Intrinsics 5 5 Ulnar Intrinsics 5 5 Architectural Inspector Strength 5 5 Hip Flexion 5 5 Hip Extension 5 5 Knee Flexion 5 4+ limited by pain Knee Extension 5 4+ limited by pain Dorsiflexion 5 5 Extensor Hallicus Longus 5 5 Plantarflexion 5 5 SENSORY EXAM: Sensory exam shows no diminished sensation to light touch or pain throughout the upper and lower extremities. REFLEXES: (2 OR 2+ IS NORMAL) REFLEX: RIGHT LEFT BICEPS 1 1 BRACHIORADIALIS 1 1 TRICEPS 1 1 PATELLAR 1 1 ACHILLES 1 1 EMANUEL'S ABSENT ABSENT PLANTAR DOWNGOING DOWNGOING GAIT: Gait is steady. PERIPHERAL NERVE/MISC: Tinel is negative at the wrists and elbows bilaterally. Phalen is negative. Straight leg raise is negative bilaterally. Tyshawn's test of the hips is negative bilaterally. TEST AND RADIOGRAPHIC REVIEW: The patient's imaging was reviewed in detail with the patient today during the visit. The MRI from 2017 shows Severe degenerative changes at L5-S1 with Modic changes and facet arthri tis. The patient has some disc bulging to the left with contacting the S1 nerve. Lumbar x-rays show no major instability. ASSESSMENT: NEUROSURGICAL DIAGNOSES: Encounter Diagnoses Name Primary? DDD (degenerative disc disease), lumbar Yes Lumbar radiculopathy - left lower extremity Osteoarthritis of spine with radiculopathy, lumbar region GENERAL DIAGNOSES: Past Medical History Diagnosis Date Anxiety Depression [...] breasts associated with childbirth, delivered Sciatica Flu PLAN: Ashley Webb presented today, and it was a pleasure seeing this patient and assess ing her neurologic problems. The patient has severe degenerative changes at L5-S1. She has some mild radicular symptoms into her legs. She is participating in physical therapy. She has not tried physiatry or i njections. She continues to smoke. The patient is hoping to avoid surgery on her back if a t all possible.. The patient has progressive symptoms despite non-operative measures. I had a lengthy discussion with the patient about her options for care including surgical a nd non-surgical options. In discussing the surgical options, we discussed in detail the patient's options for Surger y on her lumbar spine at L5-S1.. The patient understands that in most instances the recover y from surgery can be lengthy and sometimes difficult. The patient is hoping to avoid surgery. She would like to intensify conservative therapy. Provided her with a referral to physiatry. I've also asked her to continue to work with he r primary care provider. She will also discussed intensifying efforts at smoking cessation with him as well. Today we discussed the potential for injections. We talked about moving forward with consideration of surgery if she fails conservative therapy. We also discussed the importance of smoking cessation today The patient would like to continue conservative care and return to discuss surgery or addit ional treatment options if the symptoms worsen. ELECTRONICALLY SIGNED BY: Burton Swift PA-C, 03/07/2017 9:11 Oly Joyce assisted me in the in store demonstrator of this note in my presence today. documented in this encounter Plan of Treatment +--------+ + + + + | Date | Type | Specialty | Care Team | Description | +--------+ + + + + | 03/17/ | Virtual | Neurosurgery | Zuhair Flores | | | 2019 | Office | | MD Joselito [address] | | | | Visit | | [facility] [address] | | | | | | [place] | | | | | | [address] | | | | | | | | +--------+ + + + + | 03/18/ | Office | Physical Medicine | Jovana Dawson | | | 2019 | Visit | and Rehabilitation | MELANY Man [address] | | | | | | [facility] | | | | | | [address] [place] | | | | | | [address] | | | | | | | | +--------+ + + + + | 04/01/ | Appointment | Oncology | Deny Mcmanus, | | | 2019 | | | [address] | | | | | | [address] [place], | | | | | | [place] [address] | | | | | | [phone] | | | | | | | | +--------+ + + + + | 04/08/ | Procedure | Physical Medicine | PrashantbreanaLeonard zhang | | | 2019 | visit | and Rehabilitation | MD Audelia [address] [facility] | | | | | | [place], [place] | | | | | | [address] | | | | | | | | +--------+ + + + + | 04/30/ | Office | Cardiology | Shad Saavedra, | | | 2019 | Visit | | MD Alan Cruz | | | | | | [place], | | | | | | [place] [address] | | | | | | [phone] | | | | | | | | +--------+ + + + + documented as of this encounter Procedures + +--------+ + + + | Procedure Name | Priori | Date/Time | Associated Diagnosis | Comments | | | ty | | | | + +--------+ + + + | AMB REFERRAL TO | Routin | 03/29/2017 | DDD (degenerative | | | PHYSICAL MEDICINE | e | 10:18 AM | disc disease), | | | REHAB | | PDT | lumbar Lumbar | | | | | | radiculopathy - left | | | | | | lower extremity | | | | | | Osteoarthritis of | | | | | | spine with | | | | | | radiculopathy, | | | | | | lumbar region | | + +--------+ + + + documented in this encounter Visit Diagnoses + + | Diagnosis | + + | DDD (degenerative disc disease), lumbar - Primary Degeneration of lumbar or | | lumbosacral intervertebral disc | + + | Lumbar radiculopathy - left lower extremity Thoracic or lumbosacral neuritis or | | radiculitis, unspecified | + + | Osteoarthritis of spine with radiculopathy, lumbar region | + + documented in this encounter
--- OUTSIDE RECORDS SUMMARY | ~2020-03-13 | XMS | Encounter Summary ---
Demographics + + + | Address | [address] | | | [place] [address] | + + + | Home Phone [...] + + | Author | [facility] | | | and [place] | + + + | Organization | [facility] | | | [...] Team Providers + +------+ + | Care Supervisor Malted Milk Name | Role | Phone | + [...] Description | +--------+--------+ + + + | 03/26/ | Refill | [facility] | Burton Masters, | Medication Refill | | 2019 | | [facility]IC[facility] [place] | [address] | | | | | [address] | [place] | | | | | [place] | [address] | | | | | [address] | | | | | | [phone] | | | +--------+--------+ + + + [...] | | | Visit | | [address] [address] | | | | | | [place] | | | | | | [address] | | | | | | | | +--------+ + + + + | 03/18/ | Office | Physical Medicine | Jovana Dawson | | | 2019 | Visit | and Rehabilitation | MELANY [address] | | | | | | [address] [facility] | | | | | | [address] [place] | | | | | | [address] | | | | | | | | +--------+ + + + + | 04/01/ | Appointment | Oncology | Deny Mcmanus, | | 2019 | | | MD Alan [address] | | | | | | [address] [place] | | | | | | [place] [address] | | | | | | [phone] | | | | | | | | +--------+ + + + + | 04/08/ | Procedure | Physical Medicine | Leonard De Leon | | | 2019 | visit | and Rehabilitation | MD Kiki Win | | | | | | [place] | | | | | | [id number] | | | | | | | | +--------+ + + + + | 04/30/ | Office | Cardiology | Shad Saavedra, | | | 2019 | Visit | | MD [address] | | | | | | [place] | | | | | | [place] [address] | | | | | | [phone] | | | | | | | | +--------+ + + + + documented as of this encounter Visit Diagnoses Not on filedocumented in this encounter"
--- OUTSIDE RECORDS SUMMARY | ~2020-03-13 | XMS | Encounter Summary ---
Demographics + + + | Address | [address] | | | [place] [address] | + + + | Home Phone | | + + + | Preferred Language | Unknown | + + + | Marital Status | | + + + | Jehovah'S Witness Affiliation | Unknown | + + + | Race | Unknown | + + + | Ethnic Group | Unknown | + + + Author + + + | Author | [facility] | | | and [place] | + + + | Organization | [facility] | | | [...] Team Providers + +------+ + | Care Saloon Keeper Name | Role | Phone | + +------+ + PCP | Unavailable | + +------+ + Encounter Details +--------+ + + + + | Date | Type | Department | Care Team | Description | +--------+ + + + + | 02/16/ | Hospital | [facility] | Sheyla Pierre | | | 2003 - | Encounter | MED CTR MED ONC | MD Diane [address] | | | | | [address] | [facility] | | | 02/18/ | | [place] [address] | [place] [address] | | | 2003 | | [phone] | [phone] | | | | | | | [...] [place] | | | | | | [address] | | | | | | | | +--------+ + + + + | 03/18/ | Office | Physical Medicine | Jovana Dawson | | | 2019 | Visit | and Rehabilitation | MELANY Man [address] | | | | | | [address] | | | | | | [address] [place] | | | | | | [address] | | | | | | | | +--------+ + + + + | 04/01/ | Appointment | Oncology | Deny Mcmanus, | | 2019 | | | [address] | | | | | | [place] | | | | | | [place] [address] | | | | | | [phone] | | | | | | | | +--------+ + + + + | 04/08/ | Procedure | Physical Medicine | Leonard De Leon | | | 2019 | visit | and Rehabilitation | MD Audelia [address] | | | | | | [place] | | | | | | [address] | | | | | | | | +--------+ + + + + | 04/30/ | Office | Cardiology | Shad Saavedra, | | | 2019 | Visit | | [address] | | | | | | [place], | | | | | | [place] [address] | | | | | | [phone] | | | | | | | | +--------+ + + + + documented as of this encounter Visit Diagnoses Not on filedocumented in this encounter"
--- OUTSIDE RECORDS SUMMARY | ~2020-03-13 | XMS | Encounter Summary ---
Demographics + + + | Address | [address] | | | [place] [address] | + + + | Home Phone [...] Team Providers + +------+ + | Care Corporate Recruiter Name | Role | Phone | + [...] + + + + | 05/23/ | Telephone | [facility] | Deny Mcmanus, | Lab Results | | 2019 | | MED CTR MED[facility] | [address] | | | | | [facility] [address] | [place], | | | | | [address] | [place] [address] | | | | | [place] [address] | [phone] | | | | | [phone] | | | +--------+ + + + [...] [place] | | | | | | [address] | | | | | | | | +--------+ + + + + | 03/18/ | Office | Physical Medicine | Jovana Dawson | | | 2019 | Visit | and Rehabilitation | [address]EL[address] Man [address] | | | | | | [address] | | | | | | [address] [place] | | | | | | [address] | | | | | | | | +--------+ + + + + | 04/01/ | Appointment | Oncology | Deny Mcmanus, | | | 2019 | | | MD [address] | | | | | | [address] [place] | | | | | | [place] [address] | | | | | | [phone] | | | | | | | | +--------+ + + + + | 04/08/ | Procedure | Physical Medicine | Leonard De Leon | | | 2019 | visit | and Rehabilitation | MD Kiki Win | | | | | | [place] | | | | | | [address] | | | | | | | | +--------+ + + + + | 04/30/ | Office | Cardiology | Shad Saavedra, | | | 2019 | Visit | | MD [address] | | | | | | [place] | | | | | | [place] [address] | | | | | | [phone] | | | | | | | | +--------+ + + + + documented as of this encounter Visit Diagnoses Not on filedocumented in this encounter"
--- OUTSIDE RECORDS SUMMARY | ~2020-03-13 | XMS | Encounter Summary ---
Demographics + + + | Address | [address] | | | [place] [address] | + + + | Home Phone | | + + + | Preferred Language | Unknown | + + + | Marital Status | | + + + | Episcopalian Affiliation | Unknown | + + + | Race | Unknown | + + + | Ethnic Group | Unknown | + + + Author + + + | Author | [facility] | | | and [place] | + + + | Organization | [facility] | | | [...] Team Providers + +------+ + | Care Mallet Cutter Name | Role | Phone | + [...] + + + + | 01/22/ | Telephone | [facility] | Burton Masters, | Paperwork | | 2019 | | MEDICINE [place] | [address] | | | | | [address] | [place] | | | | | [place] | [address] | | | | | [address] | | | | | | [phone] | | | +--------+ + + + [...] [place] | | | | | | [address] | | | | | | | | +--------+ + + + + | 03/18/ | Office | Physical Medicine | Jovana Dawson | | | 2019 | Visit | and Rehabilitation | [address] Man [address] | | | | | | [address] | | | | | | [address] [place] | | | | | | [address] | | | | | | | | +--------+ + + + + | 04/01/ | Appointment | Oncology | Deny Mcmanus, | | | 2019 | | | [address] | | | | | | [address] [place] | | | | | | [place] [address] | | | | | | [phone] | | | | | | | | +--------+ + + + + | 04/08/ | Procedure | Physical Medicine | Leonard De Leon | | | 2019 | visit | and Rehabilitation | MD [address]iki Win | | | | | | [place] | | | | | | [address] | | | | | | | | +--------+ + + + + | 04/30/ | Office | Cardiology | Shad Saavedra, | | | 2019 | Visit | | MD [address] | | | | | | [place] | | | | | | [place] [address] | | | | | | [phone] | | | | | | | | +--------+ + + + + documented as of this encounter Visit Diagnoses Not on filedocumented in this encounter"
--- OUTSIDE RECORDS SUMMARY | ~2020-03-13 | XMS | Encounter Summary ---
Demographics + + + | Address | [address] | | | [place] [address] | + + + | Home Phone | | + + + | Preferred Language | Unknown | + + + | Marital Status | | + + + | Yazidism Affiliation | Unknown | + + + | Race | Unknown | + + + | Ethnic Group | Unknown | + + + Author + + + | Author | [facility] | | | and [place] | + + + | Organization | [facility] | | | [...] Team Providers + +------+ + | Care Sinter Feeder Name | Role | Phone | + +------+ + | Burton Masters MD | PCP | | + +------+ + Encounter Details +--------+ + + + + | Date | Type | Department | Care Team | Description | +--------+ + + + + | 09/26/ | [facility] | [facility] | Dorota Beal | Twin gestation in | | 2017 | Encounter | MED CTR ULTRASOUND | DO [address] | second trimester, | | | | [address] | [facility] | unspecified multiple | | | | [place] | [place] [address] | gestation type | | | | [address] | [phone] | | | | | [phone] | | | | | | | Maricel [address]vel[address] | | | | | | Valeria [address] | | +--------+ + + + + [...] [address] | | | | | | [address] | | | | | | [address] [place] | | | | | | [address] | | | | | | | | +--------+ + + + + | 04/01/ | Appointment | Oncology | Deny Mcmanus, | | | 2019 | | | [address] | | | | | | [place], | | | | | | [place] [address] | | | | | | [phone] | | | | | | | | +--------+ + + + + | 04/08/ | Procedure | Physical Medicine | Leonard De Leon | | 2019 | visit | and Rehabilitation | MD Audelia [address] | | | | | | [place] | | | | | | [address] | | | | | | | | +--------+ + + + + | 04/30/ | Office | Cardiology | Shad Saavedra, | | | 2019 | Visit | | [address] | | | | | | [place] | | | | | | [place] [address] | | | | | | [phone] | | | | | | | | +--------+ + + + + documented as of this encounter Procedures + +--------+ + + + | Procedure Name | Priori | Date/Time | Associated Diagnosis | Comments | | | ty | | | | + +--------+ + + + | OB TWINS 14 + | Routin | 09/26/2017 | Twin gestation in | Results for this | | WEEKS | e | 11:30 AM | second trimester, | procedure are in the | | | | PST | unspecified multiple | results section. | | | | | gestation type | | + +--------+ + + + documented in this encounter Results US OB Twins 14 + Weeks (09/26/2017 11:30 AM PST) + + | Specimen | + + | | + + + + + | Narrative | Performed At | + + + | US OB TWINS 14 + WEEKS 09/26/2017 8:56 AM HISTORY: Twin | [facility] | | gestation in second trimester, unspecified multiple gestation type. | | | COMPARISON: None. PROTOCOL: Babcock scale and Doppler images of | | | the fetus with transabdominal imaging. FINDINGS: The patient's | | | LMP was 05/13/2017 with EGA of 19 weeks 3 days. The estimated delivery | | | date is 02/17/2018. Baby A: BPD: 4.43 cm, 19 weeks 3 days FL: | | | 3.07 cm, 19 weeks 4 days HC: 16.44 cm, 19 weeks 2 days AC: 13.91 cm, | | | 19 weeks 3 days OFD: 5.59 cm Cephalic index: 79 (normal range | | | 70.0-86.0) EFW: 289 g, LMP percentile 43% HC/AC ratio: 1.18 | | | heart rate: 152 bpm, with a normal cardiac rhythm. position: | | | Variable Placental position: Anterior Amniotic fluid: Normal | | | Anatomy: Stomach, bladder, and kidneys are normal. Heart is normal | | | with 4 chambers and normal outflow tracts. Umbilical cord is normal | | | with three vessels. Cord insertion, spine, choroid plexus, nose, | | | lips, and movement are normal. Atrium of lateral ventricle: 4 mm | | | Cerebellar diameter: 19 mm Estimated gestational age by ultrasound: | | | 19 weeks 3 days Baby B: BPD: 4.5 cm, 19 weeks 5 days FL: 3.04 | | | cm, 19 weeks 3 days HC: 15.85 cm, 18 weeks 5 days AC: 14.19 cm, 19 | | | weeks 4 days OFD: 5.82 cm Cephalic index: 77 (normal range | | | 70.0-86.0) EFW: 291 g, LMP percentile 44% HC/AC ratio: 1.12 | | | heart rate: 156 bpm, with a normal cardiac rhythm. position: | | | Variable Placental position: Posterior Amniotic fluid: Normal | | | Anatomy: Stomach, bladder, and kidneys are normal. Heart is normal | | | with 4 chambers and normal outflow tracts. Umbilical cord is normal | | | with three vessels. Cord insertion, spine, choroid plexus, nose, | | | lips, and movement are normal. Atrium of lateral ventricle: 4 mm | | | Cerebellar diameter: 20 mm Estimated gestational age by ultrasound: | | | 19 weeks 3 days A twin gestation is seen. Separate sacs: Yes | | | Separate placentas: Yes The cervix is long and closed, measuring 4.8 | | | cm in length. Placenta previa is absent. IMPRESSION - Healthy | | | diamniotic-dichorionic twin , growth concordant with dates. | | | Dictated and Signed by: Jeffrey Nicholas MD Electronically signed: | | | 09/26/2017 1:05 PM | | + + + + + | Procedure Note | + + | Ruben, Rad Results In - 09/26/2017 1:08 PM PST US OB TWINS 14 + WEEKS 09/26/2017 8:56 | | AM HISTORY: Twin gestation in second trimester, unspecified multiple | | gestationtype.COMPARISON: None.PROTOCOL: Babcock scale and Doppler images of the fetus with | | transabdominalimaging.FINDINGS:The patient's LMP was 05/13/2017 with EGA of 19 weeks 3 | | days. The estimateddelivery date is 02/17/2018.Baby A:BPD: 4.43 cm, 19 weeks 3 daysFL: | | 3.07 cm, 19 weeks 4 daysHC: 16.44 cm, 19 weeks 2 daysAC: 13.91 cm, 19 weeks 3 daysOFD: | | 5.59 cmCephalic index: 79 (normal range 70.0-86.0)EFW: 289 g, LMP percentile 43%HC/AC | | ratio: 1.18Fetal heart rate: 152 bpm, with a normal cardiac rhythm. position: | | VariablePlacental position: AnteriorAmniotic fluid: NormalFetal Anatomy:Stomach, | | bladder, and kidneys are normal.Heart is normal with 4 chambers and normal outflow | | tracts.Umbilical cord is normal with three vessels.Cord insertion, spine, choroid | | plexus, nose, lips, and movement are normal.Atrium of lateral ventricle: 4 mmCerebellar | | diameter: 19 mmEstimated gestational age by ultrasound: 19 weeks 3 daysBaby B:BPD: 4.5 | | cm, 19 weeks 5 daysFL: 3.04 cm, 19 weeks 3 daysHC: 15.85 cm, 18 weeks 5 daysAC: 14.19 | | cm, 19 weeks 4 daysOFD: 5.82 cmCephalic index: 77 (normal range 70.0-86.0)EFW: 291 g, | | LMP percentile 44%HC/AC ratio: 1.12Fetal heart rate: 156 bpm, with a normal cardiac | | rhythm. position: VariablePlacental position: PosteriorAmniotic fluid: NormalFetal | | Anatomy:Stomach, bladder, and kidneys are normal.Heart is normal with 4 chambers and | | normal outflow tracts.Umbilical cord is normal with three vessels.Cord insertion, spine, | | choroid plexus, nose, lips, and movement are normal.Atrium of lateral ventricle: 4 | | mmCerebellar diameter: 20 mmEstimated gestational age by ultrasound: 19 weeks 3 daysA | | twin gestation is seen.Separate sacs: YesSeparate placentas: YesThe cervix is long and | | closed, measuring 4.8 cm in length.Placenta previa is absent.IMPRESSION -Healthy | | diamniotic-dichorionic twin , growth concordant with dates.Dictated and Signed | | by: Jeffrey Nicholas MD Electronically signed: 09/26/2017 1:05 PM | |Placental position: Anterior | |Amniotic fluid: Normal | | Anatomy: | |Stomach, bladder, and kidneys are normal. | |Heart is normal with 4 chambers and normal outflow tracts. | |Umbilical cord is normal with three vessels. | |Cord insertion, spine, choroid plexus, nose, lips, and movement are normal. | |Atrium of lateral ventricle: 4 mm | |Cerebellar diameter: 19 mm | |Estimated gestational age by ultrasound: 19 weeks 3 days | | | |Baby B: | |BPD: 4.5 cm, 19 weeks 5 days | |FL: 3.04 cm, 19 weeks 3 days | |HC: 15.85 cm, 18 weeks 5 days | |AC: 14.19 cm, 19 weeks 4 days | |OFD: 5.82 cm | |Cephalic index: 77 (normal range 70.0-86.0) | |EFW: 291 g, LMP percentile 44% | |HC/AC ratio: 1.12 | | heart rate: 156 bpm, with a normal cardiac rhythm. | | position: Variable | |Placental position: Posterior | |Amniotic fluid: Normal | | Anatomy: | |Stomach, bladder, and kidneys are normal. | |Heart is normal with 4 chambers and normal outflow tracts. | |Umbilical cord is normal with three vessels. | |Cord insertion, spine, choroid plexus, nose, lips, and movement are normal. | |Atrium of lateral ventricle: 4 mm | |Cerebellar diameter: 20 mm | |Estimated gestational age by ultrasound: 19 weeks 3 days | | | |A twin gestation is seen. | |Separate sacs: Yes | |Separate placentas: Yes | |The cervix is long and closed, measuring 4.8 cm in length. | |Placenta previa is absent. | | | |IMPRESSION - | |Healthy diamniotic-dichorionic twin , growth concordant with dates. | | | |Dictated and Signed by: Jeffrey Nicholas MD | | Electronically signed: 09/26/2017 1:05 PM | + + + +---------+ + + | Performing | Address | City/State[facility] | Phone Number | | Organization | | | | + +---------+ + + | [facility] | | | | + +---------+ + + documented in this encounter Visit Diagnoses + + | Diagnosis | + + | Twin gestation in second trimester, unspecified multiple gestation type | + + documented in this encounter"
--- OUTSIDE RECORDS SUMMARY | ~2020-03-13 | XMS | Encounter Summary ---
Demographics + + + | Address | [address] | | | [place] [address] | + + + | Home Phone [...] Team Providers + +------+ + | Care School Based Therapist Name | Role | Phone | + +------+ + | Nhi Oneal MD | PCP | | + +------+ + Reason for Visit + + + | Reason | Comments | + + + | Shoulder Pain | left shoulder pain | + + + | Follow-up | review MRI | + + + Encounter Details +--------+---------+ + + + | Date | Type | Department | Care Team | Description | +--------+---------+ + + + | 06/03/ | Office | [facility] | Suresh Koch | Rotator cuff tear, | | 2013 | Visit | ORTHOPEDIC SURGERY | MD Aida [address] [facility] | left (Primary Dx); | | | | [address] [facility] | [place] | Acromioclavicular | | | | [place] | [address] | (AC) joint injury, | | | | [address] | | left, subsequent | | | | [phone] | | encounter | +--------+---------+ + + [...] Temperature | 37.1 C (98.7 F) | 06/03/2014 10:30 AM | | | | | PDT [...] Weight | 81.6 kg (180 lb) | 06/03/2014 10:30 AM | | | | | PDT | | + + + + + | Height | 175.3 cm (5' 9") | 06/03/2014 10:30 AM | | | | | PDT | | + + + + + | Body Mass Index | 26.58 | 06/03/2014 10:30 AM | | | | | PDT | | + + + + + documented in this encounter Progress Notes Suresh Koch MD - 06/04/2014 10:03 PM PDTSee soap note [id number].Electronically binh d by Suresh Koch MD at 06/04/2014 10:03 PM Suresh Cormier MD - 06/03/2014 12:00 AM PDT ORTHOPEDICS [address] [place] [id number] FAX: [phone] OFFICE VISIT Ashley returns today for followup of her problematic left shoulder that remains symptomati c. 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 She ultimately has undergone an MR arthrogram and now has returned for evaluation and decision making. 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 ADVICE: We discussed our findings with Ashley. In view of her consolation of MR arthrogram findings, I feel that she would be best managed by a shoulder subspecialist and we therefo re will refer her to Dr. Hanson for his kind evaluation and appropriate care as indicated. Suresh Koch MD RH / SB JOB #: [id number] signed by Suresh Koch MD at 07/17/2014 3:49 PM PDTdo cumented in this encounter Plan of Treatment +--------+ [...] [place] | | | | | | [id number] | | | | | | | | +--------+ + + + + | 03/18/ | Office | Physical Medicine | Jovana Dawson | | | 2019 | Visit | and Rehabilitation | MELANY Man [address] | | | | | [address] | | | | | | [address] [place] | | | | | | [address] | | | | | | | | +--------+ + + + + | 04/01/ | Appointment | Oncology | Deny Mcmanus, | | | 2019 | | | [address] | | | | | | [place], | | | | | | [place] [address] | | | | | | [phone] | | | | | | | | +--------+ + + + + | 04/08/ | Procedure | Physical Medicine | Leonard De Leon | | 2019 | visit | and Rehabilitation | T, [address] | | | | | | [place] | | | | | | [address] | | | | | | | | +--------+ + + + + | 04/30/ | Office | Cardiology | Shad Saavedra, | | | 2019 | Visit | | [address] | | | | | | [place], | | | | | | [place] [address] | | | | | | [phone] | | | | | | | | +--------+ + + + + documented as of this encounter Visit Diagnoses + + | Diagnosis | + + | Rotator cuff tear, left - Primary Rotator cuff (capsule) sprain | + + | Acromioclavicular (AC) joint injury, left, subsequent encounter | + + documented in this encounter
--- OUTSIDE RECORDS SUMMARY | ~2020-03-13 | XMS | Encounter Summary ---
Demographics + + + | Address | [address] | | | [place] [address] | + + + | Home Phone | | + + + | Preferred Language | Unknown | + + + | Marital Status | | + + + | Baptist Affiliation | Unknown | + + + [...] + +------+ + | Care Medical Billing Assistant Name | Role | Phone | [...] | +--------+ + + + + | 12/17/ | Telephone | [facility] | Burton Masters Matthias, | Appointment | | 2019 | | [facility] | [address] | | | | | [address] | [place] | | | | | [place] | [address] | | | | | [address] | | | | | | [phone] | | | +--------+ + + + [...] [place] | | | | | | [address] | | | | | | | | +--------+ + + + + | 03/18/ | Office | Physical Medicine | Jovana Dawson | | | 2019 | Visit | and Rehabilitation | [address] Man [address] | | | | [address] | | | | | | [place] | | | | | | [address] | | | | | | | | +--------+ + + + + | 04/01/ | Appointment | Oncology | Deny Mcmanus, | | 2019 | | | [address] | | | | | | [place] | | | | | | [place] [address] | | | | | | [phone] | | | | | | | | +--------+ + + + + | 04/08/ | Procedure | Physical Medicine | Leonard De Leon | | | 2019 | visit | and Rehabilitation | MD Audelia [address] | | | | | | [place] | | | | | | [address] | | | | | | | | +--------+ + + + + | 04/30/ | Office | Cardiology | Shad Saavedra, | | | 2019 | Visit | | [address] | | | | | | [place], | | | | | | [place] [address] | | | | | | [phone] | | | | | | | | +--------+ + + + + documented as of this encounter Visit Diagnoses Not on filedocumented in this encounter"
--- OUTSIDE RECORDS SUMMARY | ~2020-03-13 | XMS | Encounter Summary ---
Demographics + + + | Address | [address] | | | [place] [address] | + + + | Home Phone [...] Team Providers + +------+ + | Care Presto Log Operator Name | Role | Phone | + +------+ + | Burton Masters MD | PCP | | + +------+ + Reason for Visit + + + | Reason | Comments | + + + | Urinary Pain | | + + + Encounter Details +--------+ + + + + | Date | Type | Department | Care Team | Description | +--------+ + + + + | 08/12/ | Emergency | [facility] | Jorge Flowers MD | Acute cystitis with | | 2017 | | [facility] | [address] | hematuria (Primary | | | | CENTER [address] | [place], [place] | Dx) | | | | [place] | [address] | | | | | [address] | | | | | | [phone] | | | +--------+ + + + [...] + + + | Blood Pressure | 141/79 | 08/12/2017 7:31 AM | | | | | PDT | | + + + + + | Pulse | 119 | 08/12/2017 7:31 AM | | | | | PDT | | + + + + + | Temperature | 36.8 C (98.2 F) | 08/12/2017 7:31 AM | | | | | PDT | | + + + + + | Respiratory Rate | 20 | 08/12/2017 7:31 AM | | | | | PDT | | + + + + + | Oxygen Saturation | 98% | 08/12/2017 7:31 AM | | | | | PDT | | + + + + + | Inhaled Oxygen | - | - | | | Concentration | | | | + + + + + | Weight | 104.3 kg (230 lb) | 08/12/2017 7:31 AM | | | | | PDT | | + + + + + | Height | 172.7 cm (5' 8") | 08/12/2017 7:31 AM | | | | | PDT | | + + + + + | Body Mass Index | 34.97 | 08/12/2017 7:31 AM | | | | | PDT | | + + + + + documented in this encounter Discharge Instructions Instructions Jorge Flowers MD - 08/12/2017Antibiotic as prescribed Rest and fluids Return for worsening symptoms, not improving, the documented in this encounter Medications at Time of Discharge + + + +---------+ + + | Medication | Sig | Dispensed | Refills | Start | End Date | | | | | | Date | | + + + +---------+ + + | cephalexin | Take 1 capsule by | 28 | 0 | 08/12/20 | | | (KEFLEX) 500 mg | mouth 4 times daily | capsule | | 17 | 7 | | capsule | for 7 days. | | | | | + [...] | | | Visit | | [facility] | | | | [...] [place] | | | | | | [id number] | | | | | | | | +--------+ + + + + | 04/01/ | Appointment | Oncology | Deny Mcmanus, | | 2019 | | | MD [address] | | | | | | [address] [place] | | | | | | [place] [address] | | | | | | [phone] | | | | | | | | +--------+ + + + + | 04/08/ | Procedure | Physical Medicine | Leonard De Leon | | | 2019 | visit | and Rehabilitation | MD Audelia [address] | | | | | | [place] | | | | | | [address] | | | | | | | | +--------+ + + + + | 04/30/ | Office | Cardiology | Shad Saavedra, | | | 2019 | Visit | | [address] | | | | | | [place], | | | | | | [place] [address] | | | | | | [phone] | | | | | | | | +--------+ + + + + + +------+--------+ + + | Name | Type | Priori | Associated Diagnoses | Date/Time | | | | ty | | | + +------+--------+ + + | ED INFORMATION | KEYUR | Routin | | 08/12/2017 7:28 AM | | EXCHANGE | | e | | PDT | + +------+--------+ + + documented as of this encounter Procedures + +--------+ + + + | Procedure Name | Priori | Date/Time | Associated Diagnosis | Comments | | | ty | | | | + +--------+ + + + | CULTURE, URINE | Routin | 08/12/2017 | | Results for this | | | e | 7:45 AM | | procedure are in the | | | | PDT | | results section. | + +--------+ + + + | ED INFORMATION | Routin | 08/12/2017 | | | | EXCHANGE | e | 7:28 AM | | | | | | PDT | | | + +--------+ + + + +---+--------+ | | | | | Proced | | | ure | | | Note - | | | Mario, | | | Lab In | | | | | | Hlseve | | | n - | | | 08/12/ | | | 2016 | | | 7:29 | | | AM PDT | | [...] | | | FICATI | | | ON?/ | | | | | | 7 | | | 07:25? | | | LENZ | | | , | | | KATHRY | | | N | | | L?MRN: | | | | | | [id number] | | | [id number] | | | his | | | [...] | | | ent/26 | | | [id number] | | | [id number] | | | [...] | | | int | | | Oct 7, | | | 2017 | | | Provid | | | ence | | | [facility] | | | [facility] | [place] | | | [place] | | | Emerge | | | ncy | | | Emerge | | | ncy | | | uti | | | Sep 1, | | [...] | | | ng | | | Vagina | | | l | | | Bleed | | | Pregna | | | nt | | | Threat | | | ened | | | aborti | | | on | | | Jef | | | [...] | | | Center | | | 4 0 | | | Total | | | 4 0 | | | Note: | | [...] Care | | | | | | (509) | | | [...] | +---+--------+ documented in this encounter Results Culture, Urine (08/12/2017 7:45 AM PDT) + + + + + + | Component | Value | Ref Range | Performed | Pathologist | | | | | At | Signature | + + + + + + | Culture | >100,000 CFU/ml | | [facility] | | | | Escherichia coli | | . [facility] | | | | | | [...] + +--------+ + | Escherichia coli | Ampicillin | | <=2 ug/mL: | | | | | Sensitive | + + +--------+ + | Escherichia coli | Ampicillin + | | <=2 ug/mL: | | | Sulbactam | | Sensitive | + + +--------+ [...] [address] | [place] | [phone] | | [facility] | | [address] | | | - LABORATORY | | | | + + + + + documented in this encounter Visit Diagnoses + + | Diagnosis | + + | Acute cystitis with hematuria - Primary Acute cystitis | + + documented in this encounter
--- OUTSIDE RECORDS SUMMARY | ~2020-03-13 | XMS | Encounter Summary ---
Demographics + + + | Address | [address] | | | [place] [address] | + + + | Home Phone | | + + + | Preferred Language | Unknown | + + + | Marital Status | | + + + | Hoahaoism Affiliation | Unknown | + + + | Race | Unknown | + + + | Ethnic Group | Unknown | + + + Author + + + | Author | [facility] | | | and [place] | + + + | Organization | [facility] | | | [...] Team Providers + +------+ + | Care Flight Test Supervisor Name | Role | Phone | [...] | | | | tive, in | [place] [address] | [place] [address] | | | | | relapse | Phone: | Phone: | | | | | ([facility]) | [phone] | [phone] | | | | | | Fax: | Fax: | | | | | | [phone] | [phone] | +--------+ + + + + + Encounter Details +--------+ + + + + | Date | Type | Department | Care Team | Description | +--------+ + + + + | 01/11/ | Hospital | [facility] | Deyn Mcmanus, | Chronic myeloid | | 2019 | Encounter | [facility] | MD [address] | leukemia, | | | | [facility] [address] [place], | BCR/ABL-positive, | | | | [place] | [place] [address] | not having achieved | | | | [place] [address] | [phone] | remission ([facility]) | | | | [phone] | | (Primary Dx); Weight | | | | | | loss; Chronic | | | | | | myeloid leukemia, | | | | | | BCR/ABL-positive, in | | | | | | relapse (HCC); | | | | | | Lumbar radiculopathy | +--------+ + + + + Social [...] + + + | Blood Pressure | 130/83 | 01/11/2019 10:07 AM | | | | | PST | | + + + + + | Pulse | 91 | 01/11/2019 10:07 AM | | | | | PST | | + + + + + | Temperature | 36.9 C (98.4 F) | 01/11/2019 10:07 AM | | | | | PST | | + + + + + | Respiratory Rate | 18 | 01/11/2019 10:07 AM | | | | | PST | | + + + + + | Oxygen Saturation | 97% | 01/11/2019 10:07 AM | | | | | PST | | + + + + + | Inhaled Oxygen | - | - | | | Concentration | | | | + + + + + | Weight | 86.6 kg (190 lb 14.7 | 01/11/2019 10:07 AM | | | | oz) | PST | | + + + + + | Height | - | - | | + + + + + | Body Mass Index | 29.03 | 12/13/2018 1:37 PM | | | | | PST [...] | | Take 1 tablet by | 30 | 0 | 01/05/20 | | | HYDROcodone-acetamin | mouth every [...] | | Visit | | [facility] [address] | | | | | | [place] | | | | | | [address] | | | | | | | | +--------+ + + + + | 03/18/ | Office | Physical Medicine | Jovana Dawson | | | 2019 | Visit | and Rehabilitation | MELANY Man [address] | | | | | | [facility] | | | | | | [place] | | | | | | [address] | | | | | | | | +--------+ + + + + | 04/01/ | Appointment | Oncology | Deny Mcmanus, | | 2019 | | | [address] | | | | | | [place] | | | | | | [place] [address] | | | | | | [phone] | | | | | | | | +--------+ + + + + | 04/08/ | Procedure | Physical Medicine | Leonard De Leon | | 2019 | visit | and Rehabilitation | MD Audelia [address] | | | | | | [place] | | | | | | [address] | | | | | | | | +--------+ + + + + | 04/30/ | Office | Cardiology | Shad Saavedra, | | | 2020 | Visit | | MD [address] | | | | | | [place], | | | | | | [place] [address] | | | | | | [phone] | | | | | | | | +--------+ + + + + documented as of this encounter Procedures + +--------+ + + + | Procedure Name | Priori | Date/Time | Associated Diagnosis | Comments | | | ty | | | | + +--------+ + + + | TSH | Routin | 01/11/2019 | Weight loss | Results for this | | | e | 10:42 AM | | procedure are in the | | | | PST | | results section. | + +--------+ + + + | DIFFERENTIAL, MANUAL | Routin | 01/11/2019 | Chronic myeloid | | | | e | 10:37 AM | leukemia, | | | | | PST | BCR/ABL-positive, | | | | | | not having achieved | | | | | | remission (HCC) | | + +--------+ + + + | CBC WITH | STAT | 01/11/2019 | Chronic myeloid | Results for this | | DIFFERENTIAL | | 10:37 AM | leukemia, | procedure are in the | | | | PST | BCR/ABL-positive, | results section. | | | | | not having achieved | | | | | | remission (HCC) | | + +--------+ + + + | COMPREHENSIVE | STAT | 01/11/2019 | Chronic myeloid | Results for this | | METABOLIC PANEL | | 10:37 AM | leukemia, | procedure are in the | | | | PST | BCR/ABL-positive, | results section. | | | | | not having achieved | | | | | | remission (HCC) | | + +--------+ + + + documented in this encounter Results Comprehensive Metabolic Panel (01/22/2019 3:26 PM PDT) [...] | | | | mL/min/1.73m2 | . [facility] | | | [place] | | | MEDICAL | | | [...] + | [facility] | [address] | [place] | [phone] | | [facility] | | [address] | | | - LABORATORY | | [...] | Preliminary studies have | | [facility] | | | s | indicated the [...] | | Lymphocytes | | K/uL | [facility] | | | | | | MEDICAL | | | | | | CENTER - | | | | | | LABORATORY | | + + + + + + | Absolute | 0.27 | 0.00 - 1.00 | [facility] | | | Monocytes | | K/uL | [facility] | | | | | | MEDICAL | | | | | | CENTER - | | | | | | LABORATORY | | + + + + + + | Absolute | 0.24 | 0.00 - 0.40 | [facility] | | | Eosinophils | | K/uL | [facility] | | | | | | MEDICAL | | | | | | CENTER - | | | | | | LABORATORY | | + + + + + + | Absolute | 0.36 (H) | 0.00 - 0.10 | [facility] | | | Basophils | | K/uL | [facility] | | | | | | MEDICAL | | | | | | CENTER - | | | | | | LABORATORY | | + + + + + + | Absolute | 0.31 (H)Comment: For | 0.00 - 0.03 | [facility] | | | Immature | patients, use | K/uL | [facility] | | | Granulocyte | the special reference | | MEDICAL | | | s | ranges listed below. | | CENTER - | | | | | | LABORATORY | | + + + + + + | % nRBC | 1 | 0 - 2 per 100 | [facility] | | | | | WBC's | [facility] | | | | | | MEDICAL | | | | | | CENTER - | | | | | | LABORATORY | | + + + + + + | Absolute | 0.10 (H)Comment: | 0.00 - 0.01 | [facility] | | | nRBC | Presence of any NRBC's | K/uL | [facility] | | | | in adults is [...] Trim. Absolute (K/uL) Percentage (%) | [facility] | | 1st 0.003-0.091 K/uL 0.0-0.9% 2nd 0.007-0.247 K/uL | [facility] | | 0.1-2.0% 3rd 0.018-0.456 K/uL 0.1-2.0% | - LABORATORY | + + + + + + + + | Performing | Address | City/State/Zipcode | Phone Number | | Organization | | | | + + + + + | [facility] | [address] | [place] | [phone] | | [facility] | | [address] | | | - LABORATORY | | | | + + + + + TSH (01/11/2019 10:42 AM PST) + +-------+ + + + | Component | Value | Ref Range | Performed | Pathologist | | | | | At | Signature | + +-------+ + + + | TSH | 2.17 | 0.55 - 4.78 | [facility] | | | | | uIU/mL | [facility] | | | | [...] + | [facility] | [address] | [place] | [phone] | | [facility] | | [address] | | | - LABORATORY | | | | + + + + + Differential, Manual (01/11/2019 10:37 AM PST) + + | Specimen | + + | Blood | + + + + + + + | Performing | Address | City/State/Zipcode | Phone Number | | Organization | | | | + + + + + | [facility] | [address] | [place] | [phone] | | [facility] | | [address] | | | - LABORATORY | | | | + + + + + Comprehensive Metabolic Panel (01/11/2019 10:37 AM PST) + +---------+ + + + | Component | Value | Ref Range | Performed | Pathologist | | | | | At | Signature | + +---------+ + + + | Na | 142 | 136 - 145 | [facility] | [...] +---------+ + + + | Cl | 113 (H) | 98 - 107 mmol/L | [facility] | | | | | | [facility] | | | | | | MEDICAL | | | | | | CENTER - | | | | | | LABORATORY | | + +---------+ + + + | CO2 | 24 | 20 - 31 mmol/L | [facility] | | | | | | [facility] | | | | | | MEDICAL | | | | | | CENTER - | | | | | | LABORATORY | | + +---------+ + + + | Anion Gap | 5 | 3 - 16 mmol/L | [facility] | | | | | | [facility] | | | | | | MEDICAL | | | | | | CENTER - | | | | | | LABORATORY | | + +---------+ + + + | Glucose | 97 | 60 - 106 mg/dL | [facility] | | | | | | [facility] | | | | | | MEDICAL | | | | | | CENTER - | | | | | | LABORATORY | | + +---------+ + + + | BUN | 12 | 9 - 23 mg/dL | [facility] | | | | | | [facility] | | | | | | MEDICAL | | | | | | CENTER - | | | | | | LABORATORY | | + +---------+ + + + | Creatinine | 0.85 | 0.55 - 1.02 | [facility] | | | | | mg/dL | [facility] | | | | | | MEDICAL | | | | | | CENTER - | | | | | | LABORATORY | | + +---------+ + + + | eGFR if not | >60 | >=60 | [facility] | | | | | mL/min/1.73m2 | [facility] | | | [place] | | | MEDICAL | | | | | | CENTER - | | | | | | LABORATORY | | + +---------+ + + + | Calcium | 9.3 | 8.7 - 10.4 | [facility] | | | | | mg/dL | [facility] | | | | | | MEDICAL | | | | | | CENTER - | | | | | | LABORATORY | | + +---------+ + + + | Albumin | 4.0 | 3.2 - 4.8 g/dL | [facility] | | | | | | . [facility] | | | | | | MEDICAL | | | | | | CENTER - | | | | | | LABORATORY | | + +---------+ + + + | Bilirubin | 0.5 | 0.3 - 1.2 mg/dL | [facility] [...] +---------+ + + + | AST | 48 (H) | 0 - 34 U/L | [facility] | | | | | | [facility] | | | | | | MEDICAL | | | | | | CENTER - | | | | | | LABORATORY | | + +---------+ + + + | ALT | 58 (H) | 10 - 49 U/L | [facility] | | | | | | [facility] | | | | | | MEDICAL | | | | | | CENTER - | | | | | | LABORATORY | | + +---------+ + + + | Alkaline | 81 | 46 - 116 U/L | [facility] | | | Phosphatase | | | [facility] | | | | | | MEDICAL | | | | | | CENTER - | | | | | | LABORATORY | | + +---------+ + + + | Globulin | 1.9 (L) | 2.1 - 3.8 g/dL | [facility] | | | | | | [facility] | | | | | | MEDICAL | | | | | | CENTER - | | | | | | LABORATORY | | + +---------+ + + + | Albumin/Simona | 2.1 (H) | 0.8 - 1.9 | [facility] | | | bulin Ratio | | | [facility] | | | | | | MEDICAL | | | | | | CENTER - | | | | | | LABORATORY | | + +---------+ + + + | BUN/Creatin | 14.1 | | [facility] | | | ine [...] ST. | [address] | [place] | [phone] | | [facility] | | [address] | | | - LABORATORY | | | | + + + + + CBC with Differential (01/11/2019 10:37 AM PST) + + + + + + | Component | Value | Ref Range | Performed | Pathologist | | | | | At | Signature | + + + + + + | WBC | 63.3 ()Comment: | 4.0 - 11.0 K/uL | [facility] | | | | Critical Result called | | [facility] | | | | to and read back by | | MEDICAL | | | | Ashley Hernandez RN on | | CENTER - | | | | 01/11/2019 at 10:55 by | | LABORATORY | | | | [facility] Carroll. | | | | + + + + + + | RBC | 4.12 | 3.70 - 5.20 | [facility] | [...] + + + + | Hematocrit | 38.9 | 34.0 - 47.0 % | [facility] | | | | | | [facility] | | | | | | MEDICAL | | | | | | CENTER - | | | | | | LABORATORY | | + + + + + + | MCV | 94.4 | 83.0 - 101.0 fL | [facility] | | | | | | [facility] | | | | | | MEDICAL | | | | | | CENTER - | | | | | | LABORATORY | | + + + + + + | MCH | 31.6 | 28.0 - 35.0 pg | [facility] | | | | | | [facility] | | | | | | MEDICAL | | | | | | CENTER - | | | | | | LABORATORY | | + + + + + + | MCHC | 33.4 | 32.0 - 36.0 | [facility] | | | | | g/dL | [facility] | | | | | | MEDICAL | | | | | | CENTER - | | | | | | LABORATORY | | + + + + + + | RDW-CV | 16.0 (H) | <15.0 % | [facility] | | | | | | [facility] | | | | | | MEDICAL | | | | | | CENTER - | | | | | | LABORATORY | | + + + + + + | RDW-SD | 54.5 (H) | 35.1 - 46.3 fL | [facility] | | | | | | [facility] | | | | | | MEDICAL | | | | | | CENTER - | | | | | | LABORATORY | | + + + + + + | Platelet | 690 (H) | 140 - 440 K/uL | [facility] | | | Count | | | [facility] | | | | | | MEDICAL | | | | | | CENTER - | | | | | | LABORATORY | | + + + + + + | MPV | 10.7 | 6.5 - 12.4 fL | [facility] | | | | | | [facility] | | | | | | MEDICAL | | | | | | CENTER - | | | | | | LABORATORY | | + + + + + + | % | 47.2 | 45.0 - 82.0 % | [facility] | | | Neutrophils | | | [facility] | | | | | | MEDICAL | | | | | | CENTER - | | | | | | LABORATORY | | + + + + + + | % | 9.7 (L) | 20.0 - 45.0 % | [facility] | | | Lymphocytes | | | [facility] | | | | | | MEDICAL | | | | | | CENTER - | | | | | | LABORATORY | | + + + + + + | % Monocytes | 2.9 (L) | 4.0 - 12.0 % | [facility] | | | | | | [facility] | | | | | | MEDICAL | | | | | | CENTER - | | | | | | LABORATORY | | + + + + + + | % | 1.4 | 0.0 - 5.0 % | [facility] | | | Eosinophils | | | [facility] | | | | | | MEDICAL | | | | | | CENTER - | | | | | | LABORATORY | | + + + + + + | % Basophils | 6.5 (H) | 0.0 - 1.0 % | [facility] | | | | | | [facility] | | | | | | MEDICAL | | | | | | CENTER - | | | | | | LABORATORY | | + + + + + + | % Immature | 32.3 (H)Comment: | 0.0 - 0.4 % | [...] + + + + | Absolute | 29.85 (H) | 1.80 - 8.50 | [facility] | | | Neutrophils | | K/uL | [facility] | | | | | | MEDICAL | | | | | | CENTER - | | | | | | LABORATORY | | + + + + + + | Absolute | 6.11 (H) | 0.60 - 3.20 | [facility] | | | Lymphocytes | | K/uL | [facility] | | | | | | MEDICAL | | | | | | CENTER - | | | | | | LABORATORY | | + + + + + + | Absolute | 1.83 (H) | 0.00 - 1.00 | [facility] | | | Monocytes | | K/uL | [facility] | | | | | | MEDICAL | | | | | | CENTER - | | | | | | LABORATORY | | + + + + + + | Absolute | 0.91 (H) | 0.00 - 0.40 | [facility] | | | Eosinophils | | K/uL | [facility] | | | | | | MEDICAL | | | | | | CENTER - | | | | | | LABORATORY | | + + + + + + | Absolute | 4.11 (H) | 0.00 - 0.10 | [facility] | | | Basophils | | K/uL | [facility] | | | | | | MEDICAL | | | | | | CENTER - | | | | | | LABORATORY | | + + + + + + | Absolute | 20.46 (H)Comment: For | 0.00 - 0.03 | [...] | | | | WBC's | [facility] | | | | | | MEDICAL | | | | | | CENTER - | | | | | | LABORATORY | | + + + + + + | Absolute | 0.16 (H)Comment: | 0.00 - 0.01 | [facility] | | | nRBC | Presence of any NRBC's | K/uL | [facility] | | | | in adults is [...] ranges: Trim. Absolute (K/uL) Percentage (%) | [facility] | | 1st 0.003-0.091 K/uL 0.0-0.9% 2nd 0.007-0.247 K/uL | [facility] | | 0.1-2.0% 3rd 0.018-0.456 K/uL 0.1-2.0% | - LABORATORY | + + + + + + + + | Performing | Address | City/State/Zipcode | Phone Number | | Organization | | | | + + + + + | [facility] 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
--- OUTSIDE RECORDS SUMMARY | ~2020-03-13 | XMS | Encounter Summary ---
Demographics + + + | Address | [address] | | | [place] [address] | + + + | Home Phone | | + + + | Preferred Language | Unknown | + + + | Marital Status | | + + + | Rastafari Affiliation | Unknown | + + + | Race | Unknown | + + + | Ethnic Group | Unknown | + + + Author + + + | Author | [facility] | | | and [place] | + + + | Organization | [facility] | | | [...] Team Providers + +------+ + | Care Auto Rebuilder Name | Role | Phone | + +------+ + | Burton Masters MD | PCP | | + +------+ + Encounter Details +--------+ + + + + | Date | Type | Department | Care Team | Description | +--------+ + + + + | 03/03/ | [facility] | [facility] | Adrian Alvarado MD | Back pain, | | 2017 | Encounter | MED [facility] X[facility] [address] | unspecified back | | | | [address] | [place] [address] | location, | | | | [place] [address] | [phone] | unspecified back | | | | [phone] | | pain laterality, | | | | | | unspecified | | | | | | chronicity | +--------+ + + + + Social [...] + + + +---------+ + + | FALMINA 0.1-20 | Take as directed | | 1 | 12/05/19 | | | MG-MCG per tablet | | | | 17 | 7 | + + + +---------+ + + | | Take 1 tablet by | 62 | 0 | 01/24/20 | | | HYDROcodone-acetamin | mouth every [...] | | Visit | | [facility] [address] | | | | | | [place] | | | | | | [address] | | | | | | | | +--------+ + + + + | 03/18/ | Office | Physical Medicine | Jovana Dawson | | | 2019 | Visit | and Rehabilitation | MELANY Man [address] | | | | | | [facility] | | | | | | [address] [place] | | | | | | [address] | | | | | | | | +--------+ + + + + | 04/01/ | Appointment | Oncology | Deny Mcmanus, | | | 2019 | | | [address] | | | | | | [address] [place] | | | | | | [place] [address] | | | | | | [phone] | | | | | | | | +--------+ + + + + | 04/08/ | Procedure | Physical Medicine | Leonard De Leon | | | 2019 | visit | and Rehabilitation | MD Kiki Win | | | | | | [facility] [place] | | | | | | [address] | | | | | | | | +--------+ + + + + | 04/30/ | Office | Cardiology | Shad Saavedra, | | | 2019 | Visit | | [address] | | | | | | [address], | | | | | | [place] [address] | | | | | | [phone] | | | | | | | | +--------+ + + + + documented as of this encounter Procedures + +--------+ + + + | Procedure Name | Priori | Date/Time | Associated Diagnosis | Comments | | | ty | | | | + +--------+ + + + | XR LUMBAR SPINE 4 + | Routin | 03/03/2017 | Back pain, | Results for this | | VW | e | 7:48 AM | unspecified back | procedure are in the | | | | PDT | location, | results section. | | | | | unspecified back | | | | | | pain laterality, | | | | | | unspecified | | | | | | chronicity | | + +--------+ + + + documented in this encounter Results XR Lumbar Spine 4 + Vw (03/03/2017 7:48 AM PDT) + + | Specimen | + + | | + + + + + | Narrative | Performed At | + + + | EXAM:XR LUMBAR SPINE 4 + VW CLINICAL HISTORY: Back pain | [facility] | | COMPARISON: Outside study dated October 22, 2012. FINDINGS: 5 | [facility] | | nonrib-bearing lumbar-type vertebral bodies. There is no scoliosis. | [facility] | | In the neutral lateral position there is no spondylolisthesis. | - IMAGING | | There is mild disc narrowing at L5-S1. Small Schmorl's nodes | | | involving L2-L3 and L3-L4. No compression deformities. There is | | | no abnormal translation with flexion or extension. The soft tissues | | | are unremarkable. IMPRESSION - Mild lumbar spondylosis | | | predominating at L5-S1. Dictated and Signed by: Luke Rinaldi, | | | MD Electronically signed: 03/03/2017 8:33 AM | | + + + + + | Procedure Note | + + | Ector Miranda Results In - 03/03/2017 8:37 AM PDT EXAM:XR LUMBAR SPINE 4 + VW | | | | CLINICAL HISTORY: Back pain | | | | COMPARISON: Outside study dated October 22, 2012. | | | | FINDINGS: 5 nonrib-bearing lumbar-type vertebral bodies. There is no scoliosis. | | In the neutral lateral position there is no spondylolisthesis. There is mild | | disc narrowing at L5-S1. Small Schmorl's nodes involving L2-L3 and L3-L4. No | | compression deformities. There is no abnormal translation with flexion or | | extension. The soft tissues are unremarkable. | | | | IMPRESSION - | | | | Mild lumbar spondylosis predominating at L5-S1. | | | | Dictated and Signed by: Luke Rinaldi MD | | Electronically signed: 03/03/2017 8:33 AM | + + + + + + + | Performing | Address | City/State/Zipcode | Phone Number | | Organization | | | | + + + + + | [facility] | [address] | [place], [place] | [phone] | | [facility] | | [address] | | | - IMAGING | | | | + + + + + documented in this encounter Visit Diagnoses + + | Diagnosis | + + | Back pain, unspecified back location, unspecified back pain laterality, unspecified | | chronicity | + + documented in this encounter"
--- OUTSIDE RECORDS SUMMARY | ~2020-03-13 | XMS | Encounter Summary ---
Demographics + + + | Address | [address] | | | [place] [address] | + + + | Home Phone [...] Team Providers + +------+ + | Care Clinical Rehab Specialist Name | Role | Phone | + +------+ + | Burton Masters MD | PCP | | + +------+ + Reason for Visit + + + | Reason | Comments | + + + | Suicidal Gesture | | + + + Encounter Details +--------+ + + + + | Date | Type | Department | Care Team | Description | +--------+ + + + + | 12/13/ | Emergency | [facility] | Ari Pelletier MD | Leukocytosis, | | 2019 | | [facility] | [address] | unspecified type | | | | CENTER [address] | [place] | (Primary Dx); | | | | [place] | [address] | Suicidal behavior | | | | [address] | | without attempted | | | | [phone] | | self-injury | +--------+ + + + + Social [...] + + + | Blood Pressure | 128/87 | 12/13/2018 7:03 PM | | | | | PST | | + + + + + | Pulse | 86 | 12/13/2018 7:03 PM | | | | | PST | | + + + + + | Temperature | 36.7 C (98 F) | 12/13/2018 2:04 PM | | | | | PST | | + + + + + | Respiratory Rate | 16 | 12/13/2018 7:03 PM | | | | | PST | | + + + + + | Oxygen Saturation | 98% | 12/13/2018 7:03 PM | | | | | PST | | + + + + + | Inhaled Oxygen | - | - | | | Concentration | | | | + + + + + | Weight | 85 kg (187 lb 6.3 | 12/13/2018 1:37 PM | | | | oz) | PST | | + + + + + | Height | 172.7 cm (5' 8") | 12/13/2018 1:37 PM | | | | | PST | | + + + + + | Body Mass Index | 28.49 | 12/13/2018 1:37 PM | | | | | PST | | + + + + + documented in this encounter Discharge Instructions Instructions Ari Pelletier MD - 12/13/2018Repeat CBC in 1 week. Return if he have any wors ening. Return for fevers, chills, nausea vomiting. [facility]up with [facility]. AttachmentsThe following attachments cannot be sent through Care Everywhere.Depression ([facility])documented in this encounter Medications at Time of Discharge + + + +---------+ + + | Medication | Sig | Dispensed | Refills | Start | End Date | | | | | | Date | | + + + +---------+ + + | ALPRAZolam (XANAX) | Take 1-2 tablets by | 20 | 1 | 12/03/19 | | | 0.25 mg tablet | [...] tablet by | 90 | 0 | 12/03/19 | | | HYDROcodone-acetamin | mouth every [...] [place] | | | | | | [address] | | | | | | | | +--------+ + + + + | 03/18/ | Office | Physical Medicine | Jovana Dawson | | | 2019 | Visit | and Rehabilitation | MELANY Man [address] | | | | | | [address] | | | | | | [place] | | | | | | [address] | | | | | | | | +--------+ + + + + | 04/01/ | Appointment | Oncology | Deny Mcmanus, | | | 2019 | | | [address] | | | | | | [place] | | | | | | [place] [address] | | | | | | [phone] | | | | | | | | +--------+ + + + + | 04/08/ | Procedure | Physical Medicine | Leonard De Leon | | | 2019 | visit | and Rehabilitation | MD Audelia [address] | | | | | | [place] | | | | | | [address] | | | | | | | | +--------+ + + + + | 04/30/ Office | Cardiology | Shad Saavedra, | | | 2019 | Visit | | [address] | | | | | | [place], | | | | | | [place] [address] | | | | | | [phone] | | | | | | | | +--------+ + + + + documented as of this encounter Procedures + +--------+ + + + | Procedure Name | Priori | Date/Time | Associated Diagnosis | Comments | | | ty | | | | + +--------+ + + + | CBC WITH | STAT | 12/13/2018 | | Results for this | | DIFFERENTIAL | | 6:48 PM | | procedure are in the | | | | PST | | results section. | + +--------+ + + + | EXTRA GREEN TOP TUBE | Routin | 12/13/2018 | | Results for this | | | e | 6:35 PM | | procedure are in the | | | | PST | | results section. | + +--------+ + + + | XR CHEST 2 VIEWS | STAT | 12/13/2018 | | Results for this | | | | 4:45 PM | | procedure are in the | | | | PST | | results section. | + +--------+ + + + | URINALYSIS WITH | STAT | 12/13/2018 | | Results for this | | MICROSCOPIC WITH | | 3:29 PM | | procedure are in the | | CULTURE IF INDICATED | | PST | | results section. | + +--------+ + + + | DRUGS OF ABUSE, | STAT | 12/13/2018 | | Results for this | | SCREEN, URINE | | 3:29 PM | | procedure are in the | | | | PST | | results section. | + +--------+ + + + | POCT TEST, | STAT | 12/13/2018 | | Results for this | | URINE, QUAL | | 3:27 PM | | procedure are in the | | | | PST | | results section. | + +--------+ + + + | EXTRA GOLD TOP TUBE | Routin | 12/13/2018 | | Results for this | | | e | 3:22 PM | | procedure are in the | | | | PST | | results section. | + +--------+ + + + | PATH HEMATOLOGY | STAT | 12/13/2018 | | Results for this | | REQUEST | | 3:18 PM | | procedure are in the | | | | PST | | results section. | + +--------+ + + + | PROCALCITONIN, SERUM | STAT | 12/13/2018 | | Results for this | | | | 3:18 PM | | procedure are in the | | | | PST | | results section. | + +--------+ + + + | DIFFERENTIAL, MANUAL | Routin | 12/13/2018 | | Results for this | | | e | 3:18 PM | | procedure are in the | | | | PST | | results section. | + +--------+ + + + | CBC WITH | STAT | 12/13/2018 | | Results for this | | DIFFERENTIAL | | 3:18 PM | | procedure are in the | | | | PST | | results section. | + +--------+ + + + | TSH | STAT | 12/13/2018 | | Results for this | | | | 3:18 PM | | procedure are in the | | | | PST | | results section. | + +--------+ + + + | ALCOHOL | STAT | 12/13/2018 | | Results for this | | | | 3:18 PM | | procedure are in the | | | | PST | | results section. | + +--------+ + + + | ACETAMINOPHEN LEVEL | STAT | 12/13/2018 | | Results for this | | | | 3:18 PM | | procedure are in the | | | | PST | | results section. | + +--------+ + + + | SALICYLATE LEVEL | STAT | 12/13/2018 | | Results for this | | | | 3:18 PM | | procedure are in the | | | | PST | | results section. | + +--------+ + + + | COMPREHENSIVE | STAT | 12/13/2018 | | Results for this | | METABOLIC PANEL | | 3:18 PM | | procedure are in the | | | | PST | | results section. | + +--------+ + + + | ECG 12 LEAD | STAT | 12/13/2018 | | Results for this | | | | 2:18 PM | | procedure are in the | | | | PST | | results section. | + +--------+ + + + documented in this encounter Results CBC with Differential (12/13/2018 6:48 PM PST) + + + + + + | Component | Value | Ref Range | Performed | Pathologist | | | | | At | Signature | + + + + + + | WBC | 31.5 (H)Comment: Same as | 4.0 - 11.0 K/uL | [facility] | | | | previous cbc/diff | | [facility] | | | | | | [facility] | | | | | | CENTER - | | | | | | LABORATORY | | + + + + + + | RBC | 5.10 | 3.70 - 5.20 | [facility] | | | | | M/uL | [facility] | | | | | | MEDICAL | | | | | | CENTER - | | | | | | LABORATORY | | + + + + + + | Hemoglobin | 15.8 | 11.5 - 16.0 | [facility] | | | | | g/dL | [facility] | | | | | | MEDICAL | | | | | | CENTER - | | | | | | LABORATORY | | + + + + + + | Hematocrit | 49.1 (H) | 34.0 - 47.0 % | [facility] | | | | | | [facility] | | | | | | MEDICAL | | | | | | CENTER - | | | | | | LABORATORY | | + + + + + + | MCV | 96.3 | 83.0 - 101.0 fL | [facility] [...] + + + + | MCHC | 32.2 | 32.0 - 36.0 | [facility] | | | | | g/dL | [facility] | | | | | | MEDICAL | | | | | | CENTER - | | | | | | LABORATORY | | + + + + + + | RDW-CV | 17.1 (H) | <15.0 % | [facility] | | | | | | [facility] | | | | | | MEDICAL | | | | | | CENTER - | | | | | | LABORATORY | | + + + + + + | RDW-SD | 60.0 (H) | 35.1 - 46.3 fL | [facility] | | | | | | [facility] | | | | | | MEDICAL | | | | | | CENTER - | | | | | | LABORATORY | | + + + + + + | Platelet | 681 (H) | 140 - 440 K/uL | [facility] | | | Count | | | [facility] | | | | | | MEDICAL | | | | | | CENTER - | | | | | | LABORATORY | | + + + + + + | MPV | 10.0 | 6.5 - 12.4 fL | [facility] | | | | | | [facility] | | | | | | MEDICAL | | | | | | CENTER - | | | | | | LABORATORY | | + + + + + + | % | 43.8 (L) | 45.0 - 82.0 % | [facility] | | | Neutrophils | | | [facility] | | | | | | MEDICAL | | | | | | CENTER - | | | | | | LABORATORY | | + + + + + + | % | 12.6 (L) | 20.0 - 45.0 % | [facility] | | | Lymphocytes | | | [facility] | | | | | | MEDICAL | | | | | | CENTER - | | | | | | LABORATORY | | + + + + + + | % Monocytes | 6.0 | 4.0 - 12.0 % | [facility] | | | | | | [facility] | | | | | | MEDICAL | | | | | | CENTER - | | | | | | LABORATORY | | + + + + + + | % | 0.8 | 0.0 - 5.0 % | [facility] | | | Eosinophils | | | [facility] | | | | | | MEDICAL | | | | | | CENTER - | | | | | | LABORATORY | | + + + + + + | % Basophils | 10.3 (H) | 0.0 - 1.0 % | [facility] | | | | | | [facility] | | | | | | MEDICAL | | | | | | CENTER - | | | | | | LABORATORY | | + + + + + + | % Immature | 26.5 (H)Comment: | 0.0 - 0.4 % | [...] + + + + | Absolute | 13.82 (H) | 1.80 - 8.50 | [facility] | | | Neutrophils | | K/uL | [facility] | | | | | | MEDICAL | | | | | | CENTER - | | | | | | LABORATORY | | + + + + + + | Absolute | 3.98 (H) | 0.60 - 3.20 | [facility] | | | Lymphocytes | | K/uL | [facility] | | | | | | MEDICAL | | | | | | CENTER - | | | | | | LABORATORY | | + + + + + + | Absolute | 1.88 (H) | 0.00 - 1.00 | [facility] | | | Monocytes | | K/uL | [facility] | | | | | | MEDICAL | | | | | | CENTER - | | | | | | LABORATORY | | + + + + + + | Absolute | 0.26 | 0.00 - 0.40 | [facility] | | | Eosinophils | | K/uL | [facility] | | | | | | MEDICAL | | | | | | CENTER - | | | | | | LABORATORY | | + + + + + + | Absolute | 3.24 (H) | 0.00 - 0.10 | [facility] | | | Basophils | | K/uL | [facility] | | | | | | MEDICAL | | | | | | CENTER - | | | | | | LABORATORY | | + + + + + + | Absolute | 8.36 (H)Comment: For | 0.00 - 0.03 | [...] + + + + | Absolute | 0.08 (H)Comment: | 0.00 - 0.01 | [facility] | | | nRBC | Presence of any NRBC's | K/uL | [facility] | | | | in adults is [...] + | [facility] | [address] | [place] | [phone] | | [facility] | | [address] | | | - LABORATORY | | | | + + + + + Extra Green Top Tube (12/13/2018 6:35 PM PST) + +-------+ + + + | Component | Value | Ref Range | Performed | Pathologist | | | | | At | Signature | + +-------+ + + + | Extra Green | Done | | [facility] | | | Top Tube | | | [facility] | | [...] [address] | [place] | [phone] | | [facility] | | [address] | | | - LABORATORY | | | | + + + + + XR Chest 2 Vws (12/13/2018 4:45 PM PST) + + | Specimen | + + | | + + + + + | Narrative | Performed At | + + + | CLINICAL INFORMATION: concern for pneumonia. COMPARISON: None | [facility] | | available. FINDINGS: Frontal and lateral views of the chest. | | | Lungs: No focal airspace disease, pleural effusion, or pneumothorax. | | | Heart/mediastinum: Cardiac silhouette is of normal size. Central | | | pulmonary vasculature has a normal appearance. Bones: No acute | | | osseous abnormality appreciated. IMPRESSION - No acute disease. | | | Dictated and Signed by: Tyshawn Newton MD Electronically | | | signed: 12/13/2018 7:13 PM | | + + + + + | Procedure Note | + + | Ruben, Rad Results In - 12/13/2018 7:16 PM PST CLINICAL INFORMATION: concern for | | pneumonia.COMPARISON: None available.FINDINGS: Frontal and lateral views of the chest. | | Lungs: No focal airspace disease, pleural effusion, or pneumothorax. Heart/mediastinum: | | Cardiac silhouette is of normal size. Central pulmonaryvasculature has a normal | | appearance.Bones: No acute osseous abnormality appreciated.IMPRESSION - No acute | | disease.Dictated and Signed by: Tyshawn Newton MD Electronically signed: 12/13/2018 7:13 | | PM | |Lungs: No focal airspace disease, pleural effusion, or pneumothorax. | | | |Heart/mediastinum: Cardiac silhouette is of normal size. Central pulmonary | |vasculature has a normal appearance. | | | |Bones: No acute osseous abnormality appreciated. | | | |IMPRESSION - No acute disease. | | | |Dictated and Signed by: Tyshawn Newton MD | | Electronically signed: 12/13/2018 7:13 PM | + + + +---------+ + + | Performing | Address | City/State/Zipcode | Phone Number | | Organization | | | | + +---------+ + + | [facility] | | | | + +---------+ + + Drugs of Abuse, Screen, Urine (12/13/2018 3:29 PM PST) + + + + + + | Component | Value | Ref Range | Performed | Pathologist | | | | | At | Signature | + + + + + + | Amphetamine | Negative | Negative | [facility] | | | Screen, | | | [facility] | | | Urine | | | MEDICAL | | | | | | CENTER - | | | | | | LABORATORY | | + + + + + + | Barbiturate | Negative | Negative | [facility] | | | s Screen, | | | [facility] | | | Urine | | | MEDICAL | | | | | | CENTER - | | | | | | LABORATORY | | + + + + + + | Benzodiazep | Negative | Negative | [facility] | | | pedro | | | [facility] | | | Screen, | | | MEDICAL | | | Urine | | | CENTER - | | | | | | LABORATORY | | + + + + + + | Cannabinoid | Positive (A) | Negative | [facility] | | | s Screen, | | | [facility] | | | Urine | | | MEDICAL | | | | | | CENTER - | | | | | | LABORATORY | | + + + + + + | Cocaine | Negative | Negative | [facility] | | | Screen, | | | [facility] | | | Urine | | | MEDICAL | | | | | | CENTER - | | | | | | LABORATORY | | + + + + + + | Methadone | Negative | Negative | [facility] | | | Screen, | | | [facility] | | | Urine | | | MEDICAL | | | | | | CENTER - | | | | | | LABORATORY | | + + + + + + | Opiates | Negative | Negative | [facility] | | | Screen, | | | [facility] | | | Urine | | | [...] [address] | [place] | [phone] | | [facility] | | [address] | | | - LABORATORY | | | | + + + + + Urinalysis with Microscopic with Culture if Indicated (12/13/2018 3:29 PM PST) + + + + + [...] + + + + | Clarity | Hazy (A) | Clear | [facility] | | | | | | [facility] | | | | | | MEDICAL | | | | | | CENTER - | | | | | | LABORATORY | | + + + + + + | pH, Urine | 6.0 | 5.0 - 8.0 | [facility] | | | | | | [facility] | | | | | | MEDICAL | | | | | | CENTER - | | | | | | LABORATORY | | + + + + + + | Specific | 1.005 | 1.001 - 1.030 | [facility] | | | [place], | | | [facility] | | [...] + + + + | Blood, | Small (A) | Negative | [facility] | | [...] | | Comment | Indicated | | [facility] | | | [...] [address] | [place] | [phone] | | [facility] | | [address] | | | - LABORATORY | | | | + + + + + POCT Test, Urine, QUAL (12/13/2018 3:27 PM PST) + + + + + + | Component | Value | Ref Range | Performed | Pathologist | | | | | At | Signature | + + + + + + | | Negative | Negative | | | | Test, | | | | | | Urine, POC | | | | | + + + + + + | Internal QC | Acceptable | Acceptable, Not | | | | | | Performed | | | + + + + + + | Specific | | 1.010, 1.015, | | | | [place], | | 1.020, 1.025 | | | | POC | | | | | + + + + + + | Lot Number | [id number] | | | | + + + + + + | Expiration | 03/16/2020 | | | | | Date | | | | | + + + + + + + + | Specimen | + + | Urine | + + Extra Gold Top Tube (12/13/2018 3:22 PM PST) + +-------+ + + + | Component | Value | Ref Range | Performed | Pathologist | | | | | At | Signature | + +-------+ + + + | Extra Gold | Done | | [facility] | | | Top Tube | | | [facility] | | [...] [address] | [place] | [phone] | | [facility] | | [address] | | | - LABORATORY | | | | + + + + + Procalcitonin (12/13/2018 3:18 PM PST) + + + + + + | Component | Value | Ref Range | Performed | Pathologist | | | | | At | Signature | + + + + + + | Procalciton | <0.05 | <=0.50 ng/mL | [facility] | | | in | | | [facility] | | | | | | MEDICAL | | | | | | CENTER - | | | | | | LABORATORY | | + + + + + + | Comment | Comment: < 0.50 | | [facility] | | | | ng/mL:Procalcitonin | | [facility] | | | | levels below 0.50 ng/mL | | MEDICAL | | | | on the first day of | | CENTER - | | | | admission represents a | | LABORATORY | | | | low risk for progression | | | | | | to severe sepsis and/or | | | | | | septic shock, however | | | | | | these do not exclude an | | | | | | infection, because | | | | | | localized infections | | | | | | (without systemic signs) | | | | | | may also be associated | | | | | | with such low levels. | | | | | | > 2.00 | | | | | | ng/mL:Procalcitonin | | | | | | levels above 2.00 ng/mL | | | | | | on the first day of | | | | | | admission represents a | | | | | | high risk for | | | | | | progression to severe | | | | | | sepsis and/or septic | | | | | | shock. If the | | | | | | procalcitonin | | | | | | measurement is performed | | | | | | shortly after the | | | | | | systemic infection | | | | | | process has started | | | | | | (usually less than 6 | | | | | | hours), these values may | | | | | | still be low. As | | | | | | various non-infectious | | | | | | conditions are known to | | | | | | induce procalcitonin as | | | | | | well, procalcitonin | | | | | | levels between 0.50 | | | | | | ng/mL and 2.00 ng/mL | | | | | | should be reviewed | | | | | | carefully to take into | | | | | | account the specific | | | | | | clinical background and | | | | | | condition(s) of the | | | | | | individual patient. | | | | + + + + + + + + | Specimen | + + | Blood | + + + + + + + | Performing | Address | City/State/Zipcode | Phone Number | | Organization | | | | + + + + + | [facility] | [address] | [place] | [phone] | | [facility] | | [address] | | | - LABORATORY | | | | + + + + + Differential, Manual (12/13/2018 3:18 PM PST) + + + + + + | Component | Value | Ref Range | Performed | Pathologist | | | | | At | Signature | + + + + + + | % Segmented | 56.0 | 50.0 - 70.0 % | [facility] | | | | | | [facility] | | | Neutrophils | | | MEDICAL | | | | | | CENTER - | | | | | | LABORATORY | | + + + + + + | % | 16.0 (L) | 20.0 - 40.0 % | [facility] | | | Lymphocytes | | | [facility] | | | | | | MEDICAL | | | | | | CENTER - | | | | | | LABORATORY | | + + + + + + | % Monocytes | 10.0 (H) | 1.0 - 6.0 % | [facility] | | | | | | [facility] | | | | | | MEDICAL | | | | | | CENTER - | | | | | | LABORATORY | | + + + + + + | % | 4.0 | 1.0 - 5.0 % | [facility] | | | Eosinophils | | | [facility] | | | | | | MEDICAL | | | | | | CENTER - | | | | | | LABORATORY | | + + + + + + | % Basophils | 2.0 (H) | 0.0 - 1.0 % | [facility] | | | | | | [facility] | | | | | | MEDICAL | | | | | | CENTER - | | | | | | LABORATORY | | + + + + + + | % | 5.0 (H) | <0.0 % | [facility] | | | Metamyelocy | | | [facility] | | | joseph | | | MEDICAL | | | | | | CENTER - | | | | | | LABORATORY | | + + + + + + | % | 0.0 (H) | <0.0 % | [facility] | | | Myelocytes | | | [facility] | | | | | | MEDICAL | | | | | | CENTER - | | | | | | LABORATORY | | + + + + + + | % | 0.0 (H) | <0.0 % | [facility] | | | Promyelocyt | | | [facility] | | | es | | | MEDICAL | | | | | | CENTER - | | | | | | LABORATORY | | + + + + + + | % Bands | 7.0 (H) | 0.0 - 5.0 % | [facility] | | | | | | [facility] | | | | | | MEDICAL | | | | | | CENTER - | | | | | | LABORATORY | | + + + + + + | Absolute | 17.47 (H) | 1.80 - 7.70 | [facility] | | | Segmented | | K/uL | [facility] | | | Neutrophils | | | MEDICAL | | | | | | CENTER - | | | | | | LABORATORY | | + + + + + + | Absolute | 4.99 (H) | 1.00 - 3.40 | [facility] | | | Lymphocytes | | K/uL | [facility] | | | | | | MEDICAL | | | | | | CENTER - | | | | | | LABORATORY | | + + + + + + | Absolute | 3.12 (H) | 0.00 - 0.80 | [facility] | | | Monocytes | | K/uL | [facility] | | | | | | MEDICAL | | | | | | CENTER - | | | | | | LABORATORY | | + + + + + + | Absolute | 1.25 (H) | 0.00 - 0.50 | [facility] | | | Eosinophils | | K/uL | [facility] | | | | | | MEDICAL | | | | | | CENTER - | | | | | | LABORATORY | | + + + + + + | Absolute | 0.62 (H) | 0.00 - 0.10 | [facility] | | | Basophils | | K/uL | [facility] | | | | | | MEDICAL | | | | | | CENTER - | | | | | | LABORATORY | | + + + + + + | Absolute | 1.56 | K/uL | [facility] | | | Metamyelocy | | | [facility] | | | joseph | | | MEDICAL | | | | | | CENTER - | | | | | | LABORATORY | | + + + + + + | Absolute | 0.00 | K/uL | [facility] | | | Promyelocyt | | | [facility] | | | es | | | MEDICAL | | | | | | CENTER - | | | | | | LABORATORY | | + + + + + + | Absolute | 0.00 | K/uL | [facility] | | | Myelocytes | | | [facility] | | | | | | MEDICAL | | | | | | CENTER - | | | | | | LABORATORY | | + + + + + + | Absolute | 2.18 (H) | 0.00 - 1.50 | [facility] | | | Bands | | K/uL | [facility] | | | | | | MEDICAL | | | | | | CENTER - | | | | | | LABORATORY | | + + + + + + | Total | 100 | | [facility] | | | Counted | | | [facility] | | [...] + + + + | Platelet | Increased (A) | Adequate | [facility] | | | Estimate | | | [facility] | | [...] [address] | [place] | [phone] | | [facility] | | [address] | | | - LABORATORY | | | | + + + + + Path Hematology Request (12/13/2018 3:18 PM PST) + + + + + + | Component | Value | Ref Range | Performed | Pathologist | | | | | At | Signature | + + + + + + | Peripheral | Comment: I agree with | | [facility] | | | Smear | the automated, manual | | [facility] | | | | cell count, and the | | MEDICAL | | | | Tech's assesement. The | | CENTER - | | | | slide is of good | | LABORATORY | | | | quality. The presence of | | | | | | leukocytosis is | | | | | | confirmed. A portion of | | | | | | the patient's recent | | | | | | medical records are | | | | | | reviewed | | | | + + + + + + + + | Specimen | + + | Blood | + + + + + + + | Performing | Address | City/State/Zipcode | Phone Number | | Organization | | | | + + + + + | [facility] | [address] | [place] | [phone] | | [facility] | | [address] | | | - LABORATORY | | | | + + + + + TSH (12/13/2018 3:18 PM PST) + + + + + + | Component | Value | Ref Range | Performed | Pathologist | | | | | At | Signature | + + + + + + | TSH | 0.21 (L)Comment: This is | 0.45 - 5.33 | [facility] | | | | a third generation TSH | uIU/mL | [facility] | | | | test. | | MEDICAL | | | | [...] + | [facility] | [address] | [place] | [phone] | | [facility] | | [address] | | | - LABORATORY | | | | + + + + + Ethanol (12/13/2018 3:18 PM PST) + +-------+ + + + | Component | Value | Ref Range | Performed | Pathologist | | | | | At | Signature | + +-------+ + + + | ALCOHOL, | 360 | <400 mg/dL | [facility] | | | [facility] | | | [facility] | | | A | | | MEDICAL | | | [...] + | [facility] | [address] | [place] | [phone] | | [facility] | | [address] | | | - LABORATORY | | | | + + + + + Salicylate Level (12/13/2018 3:18 PM PST) + +-------+ + + + | Component | Value | Ref Range | Performed | Pathologist | | | | | At | Signature | + +-------+ + + + | Salicylate | <4.0 | <30.0 mg/dL | [facility] | | | Level | | | [facility] | | | | | | MEDICAL [...] [address] | [place] | [phone] | | [facility] | | [address] | | | - LABORATORY | | | | + + + + + Acetaminophen Level (12/13/2018 3:18 PM PST) + +-------+ + + + | Component | Value | Ref Range | Performed | Pathologist | | | | | At | Signature | + +-------+ + + + | Acetaminoph | <10 | <10 ug/mL | [facility] | | | en Level | | | [facility] | | [...] [address] | [place] | [phone] | | [facility] | | [address] | | | - LABORATORY | | | | + + + + + Comprehensive Metabolic Panel (12/13/2018 3:18 PM PST) + + + + + + | Component | Value | Ref Range | Performed | Pathologist | | | | | At | Signature | + + + + + + | Na | 144 | 136 - 149 | [facility] | | | | | mmol/L | [facility] | | | | | | MEDICAL | | | | | | CENTER - | | | | | | LABORATORY | | + + + + + + | K | 3.5 | 3.5 - 5.1 | [facility] | [...] + + + | Anion Gap | 13 | 3 - 16 mmol/L | [facility] | | | | | | [facility] | | | | | [facility] | | | | | | C[facility] - | | | | | | LABORATORY | | + + + + + + | Glucose | 83 | 70 - 109 mg/dL | [facility] | | | | | | [facility] | | | | | | [facility] | | | | | | CENTER - | | | | | | LABORATORY | | + + + + + + | BUN | 6 (L) | 7 - 18 mg/dL | [facility] | | | | | | [facility] | | | | [facility] | [facility] | | | | | | CENTER - | | | | | | LABORATORY | | + + + + + + | Creatinine | 0.68 | 0.60 - 1.30 | [facility] | | | | | mg/dL | [facility] | | | | | | MEDICAL | | | | | | CENTER - | | | | | | LABORATORY | | + + + + + + | eGFR if not | >60Comment: GLOMERULAR | >=60 | [facility] | | | | FILTRATION | mL/min/1.73m2 | [facility] | | | [place] | RATE,ESTIMATED | | MEDICAL | | | | mL/min/1.34j1Kkzt than | | CENTER - | | [...] + + + + | Calcium | 8.3 | 8.3 - 10.5 | [facility] | | | | | mg/dL | [facility] | | | | | | MEDICAL | | | | | | CENTER - | | | | | | LABORATORY | | + + + + + + | Albumin | 3.9 | 3.2 - 5.0 g/dL | [facility] | | | | | | [facility] | | | | | | MEDICAL | | | | | | CENTER - | | | | | | LABORATORY | | + + + + + + | Bilirubin | 0.5Comment: This is an | 0.1 - 1.5 mg/dL | [facility] | | | Total | appended report. These | | [facility] | | | | results have been | | MEDICAL | | | | appended to a previously | | CENTER - | | | | preliminary verified | | LABORATORY | | | | report. | | | | + + + + + + | Total | 6.5 | 6.0 - 7.8 g/dL | [facility] | | | Protein | | | [facility] | | | | | | MEDICAL | | | | | | CENTER - | | | | | | LABORATORY | | + + + + + + | AST | 34Comment: This is an | 10 - 42 U/L | [facility] | | | | appended report. These | | [facility] | | | | results have been | | MEDICAL | | | | appended to a previously | | CENTER - | | | | preliminary verified | | LABORATORY | | | | report. | | | | + + + + + + | ALT | 34Comment: This is an | 6 - 45 U/L | [facility] | | | | appended report. These | | [facility] | | | | results have been | | MEDICAL | | | | appended to a previously | | CENTER - | | | | preliminary verified | | LABORATORY | | | | report. | | | | + + + + + + | Alkaline | 62Comment: This is an | 40 - 110 U/L | [facility] | | | Phosphatase | appended report. These | | [facility] | | | | results have been | | MEDICAL | | | | appended to a previously | | CENTER - | | | | preliminary verified | | LABORATORY | | | | report. | | | | + + + + + + | Globulin | 2.6 | 2.1 - 3.8 g/dL | [facility] | | | | | | [facility] | | | | | | MEDICAL | | | | | | CENTER - | | | | | | LABORATORY | | + + + + + + | Albumin/Simona | 1.5 | 0.8 - 2.0 | [facility] | | | bulin Ratio | | | [facility] | | | | | | MEDICAL | | | | | | CENTER - | | | | | | LABORATORY | | + + + + + + | BUN/Creatin | 8.8 | | [facility] | | | ine Ratio | | | [facility] | | [...] [address] | [place] | [phone] | | [facility] | | [address] | | | - LABORATORY | | | | + + + + + CBC with Differential (12/13/2018 3:18 PM PST) + + + + + + | Component | Value | Ref Range | Performed | Pathologist | | | | | At | Signature | + + + + + + | WBC | 31.2 (H) | 4.0 - 11.0 K/uL | [facility] | | | | | | [facility] | | | | | | MEDICAL | | | | | | CENTER - | | | | | | LABORATORY | | + + + + + + | RBC | 5.15 | 3.70 - 5.20 | [facility] | | | | | M/uL | [facility] | | | | | | MEDICAL | | | | | | CENTER - | | | | | | LABORATORY | | + + + + + + | Hemoglobin | 15.9 | 11.5 - 16.0 | [facility] | | | | | g/dL | [facility] | | | | | | MEDICAL | | | | | | CENTER - | | | | | | LABORATORY | | + + + + + + | Hematocrit | 49.2 (H) | 34.0 - 47.0 % | [facility] [...] + + + + | MCHC | 32.3 | 32.0 - 36.0 | [facility] | | | | | g/dL | [facility] | | | | | | MEDICAL | | | | | | CENTER - | | | | | | LABORATORY | | + + + + + + | RDW-CV | 16.9 (H) | <15.0 % | [facility] | | | | | | [facility] | | | | | | MEDICAL | | | | | | CENTER - | | | | | | LABORATORY | | + + + + + + | RDW-SD | 58.4 (H) | 35.1 - 46.3 fL | [facility] | | | | | | [facility] | | | | | | MEDICAL | | | | | | CENTER - | | | | | | LABORATORY | | + + + + + + | Platelet | 616 (H) | 140 - 440 K/uL | [...] + + + + | Absolute | 0.12 (H)Comment: | 0.00 - 0.01 | [facility] | | | nRBC | Presence of any NRBC's | K/uL | [facility] | | | | in adults is [...] ranges: Trim. Absolute (K/uL) Percentage (%) | [facility] | | 1st 0.003-0.091 K/uL 0.0-0.9% 2nd 0.007-0.247 K/uL | [facility] | | 0.1-2.0% 3rd 0.018-0.456 K/uL 0.1-2.0% | - LABORATORY | + + + + + + + + | Performing | Address | City/State/Zipcode | Phone Number | | Organization | | | | + + + + + | [facility] | [address] | [place] | [phone] | | [facility] | | [address] | | | - LABORATORY | | | | + + + + + ECG 12 lead (12/13/2018 2:18 PM PST) + + + + + + | Component | Value | Ref Range | Performed | Pathologist | | | | | At | Signature | + + + + + + | VENTRICULAR | 82 | BPM | [facility] | | | RATE EKG | | | | | + + + + + + | ATRIAL RATE | 82 | BPM | [facility] | | + + + + + + | P-R | 126 | ms | [facility] | | | INTERVAL | | | | | + + + + + + | QRS | 88 | ms | [facility] | | | DURATION | | | | | + + + + + + | Q-T | 392 | ms | [facility] | | | INTERVAL | | | | | + + + + + + | Q-T | 457 | ms | [facility] | | | INTERVAL | | | | | | (CORRECTED) | | | | | + + + + + + | P WAVE AXIS | 75 | degrees | [facility] | | + + + + + + | QRS AXIS | 88 | degrees | [facility] | | + + + + + + | T AXIS | 68 | degrees | [facility] | | + + + + + + | INTERPRETAT | Normal sinus | | [facility] | | | ION TEXT | rhythmNormal ECGWhen | | | | | | compared with ECG of | | | | | | 30-MAY-2016 00:58,No | | | | | | significant change was | | | | | | foundConfirmed by | | | | | | MARIANO HENRY MD ([id number]) | | | | | | on 12/14/2018 6:56:29 AM | | | | + + [...] type - Primary | + + | Suicidal behavior without attempted self-injury | + + documented in this encounter Administered Medications + +---------+ +---------+------+ + | Medication Order | MAR | Action | Dose | Rate | Site | | | Action | Date | | | | + +---------+ +---------+------+ + | nicotine (NICODERM) 21 mg/24 hr | Patch | 12/13/19 | 1 patch | | Arm-Righ | | 1 patch 1 patch, Transdermal, | Applied | 19 6:01 | | | t Upper | | ONCE, [facility] 12/13/18 at 1720, For 1 | | PM PST | | | | | dose | | | | | | + +---------+ +---------+------+ + +---+---+ | | | +---+---+ + +---------+ +--------+-------+---+ | sodium chloride 0.9% (NS) bolus | New Bag | 12/13/19 | 1,000 | 2000 | | | 1,000 mL 1,000 mL, Intravenous, | | 19 4:29 | mLs | mL/hr | | | Administer over 30 Minutes, | | PM PST | | | | | ONCE, [facility] 12/13/18 at 1545, For 1 | | | | | | | dose | | | | | | + +---------+ +--------+-------+---+ +---+---+ | | | +---+---+ documented in this encounter
--- OUTSIDE RECORDS SUMMARY | ~2020-03-13 | XMS | Encounter Summary ---
Demographics + + + | Address | [address] | | | [place] [address] | + + + | Home Phone | | + + + | Preferred Language | Unknown | + + + | Marital Status | | + + + | Congregation Affiliation | Unknown | + + + | Race | Unknown | + + + | Ethnic Group | Unknown | + + + Author + + + | Author | [facility] | | | and [place] | + + + | Organization | [facility] | | | [...] Team Providers + +------+ + | Care Fretted String Instrument Repairer Name | Role | Phone | [...] | | | | [place] | [address] | | | | | [address] | | | | | | [phone] | | | +--------+--------+ + + + [...] [address] | | | | | | [place] | | | | | | [address] | | | | | | | | +--------+ + + + + | 03/18/ | Office | Physical Medicine | Jovana Dawson | | | 2019 | Visit | and Rehabilitation | MELANY Man [address] | | | | | | [address] [facility] | | | | | | [address] [place] | | | | | | [address] | | | | | | | | +--------+ + + + + | 04/01/ | Appointment | Oncology | Deny Mcmanus, | | | 2019 | | | MD [address] | | | | | | [place] | | | | | | [place] [address] | | | | | | [phone] | | | | | | | | +--------+ + + + + | 04/08/ | Procedure | Physical Medicine | Leonard De Leon | | | 2019 | visit | and Rehabilitation | MD Kiki Win | | | | | | [place] | | | | | | [address] | | | | | | | | +--------+ + + + + | 04/30/ | Office | Cardiology | Shad Saavedra, | | | 2019 | Visit | | MD Alan Cruz | | | | | | [place] [place], | | | | | | [place] [address] | | | | | | [phone] | | | | | | | | +--------+ + + + + documented as of this encounter Visit Diagnoses Not on filedocumented in this encounter"
--- OUTSIDE RECORDS SUMMARY | ~2020-03-13 | XMS | Encounter Summary ---
Demographics + + + | Address | [address] | | | [place] [address] | + + + | Home Phone | | + + + | Preferred Language | Unknown | + + + | Marital Status | | + + + | Cheondoism Affiliation | Unknown | + + + | Race | Unknown | + + + | Ethnic Group | Unknown | + + + Author + + + | Author | [facility] | | | and [place] | + + + | Organization | [facility] | | | and [...] Team Providers + +------+ + | Care Felt Hanger Name | Role | Phone | + [...] + + | 09/16/ | Telephone | [facility] [place] [facility] | Burton Masters, | Medication | | 2019 | | [facility] | [address] | Management | | | | [address] | [place] | | | | | [place] | [address] | | | | | [address] | | | | | | [phone] | | | +--------+ + + + [...] | | | Visit | | [facility] [address] | | | | | | [place] | | | | | | [address] | | | | | | | | +--------+ + + + + | 03/18/ | Office | Physical Medicine | Jovana Dawson | | | 2019 | Visit | and Rehabilitation | MELANY Man [address] | | | | | | [facility] | | | | | | [address] [place] | | | | | | [address] | | | | | | | | +--------+ + + + + | 04/01/ | Appointment | Oncology | Deny Mcmanus, | | | 2019 | | | [address] | | | | | | [address] [place], | | | | | | [place] [address] | | | | | | [phone] | | | | | | | | +--------+ + + + + | 04/08/ | Procedure | Physical Medicine | Leonard De Leon | | | 2019 | visit | and Rehabilitation | MD Kiki Win | | | | | | [address] | | | | | | [address] | | | | | | | | +--------+ + + + + | 04/30/ | Office | Cardiology | Shad Saavedra, | | | 2019 | Visit | | MD Alan Cruz | | | | | | [place] [place], | | | | | | [place] [address] | | | | | | [phone] | | | | | | | | +--------+ + + + + documented as of this encounter Visit Diagnoses Not on filedocumented in this encounter"
--- OUTSIDE RECORDS SUMMARY | ~2020-03-13 | XMS | Encounter Summary ---
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, | | | | [facility] | [place], [place] | BCR/ABL-positive, | | | | for Health and | [address] | not having achieved | | | | Healing [address] | [phone] | remission (HCC) | | | | [address] [place], [place] | | (Primary Dx) | | | | [address] | | | | | | [phone] | | | +--------+ + + + [...] [address] | | | | | | [place], [place] | | | | | | [address] | | | | | | [phone] | | | | | | | | +--------+---------+ + + + + +------+--------+ + + | Name | Type | Priori | Associated Diagnoses | Order Schedule | | | | ty | | | + +------+--------+ + + | [facility] - CBC W | Lab | Routin | Chronic myeloid | Every 10 weeks for 5 | | DIFFERENTIAL | | e | leukemia, | Occurrences | | | | | BCR/ABL-positive, | starting 04/10/2019 | | | | | not having achieved | until 05/10/2020, 2 | | | | | remission (HCC) | completed | + +------+--------+ + + | [facility] - COMPLETE | Lab | Routin | Chronic myeloid | Every 10 weeks for 5 | | METABOLIC SET | | e | leukemia, | Occurrences | | | | | BCR/ABL-positive, | starting 04/10/2019 | | | | | not having achieved | until 05/10/2020, 2 | | | | | remission (HCC) | completed | + +------+--------+ + + | BCR - ABL RNA QUANT, | Lab | Routin | Chronic myeloid | Every 10 weeks for 5 | | BLOOD | | e | leukemia, | Occurrences | | | | | BCR/ABL-positive, | starting 04/10/2019 | | | | | not having achieved | until 05/10/2020, 2 | | | | | remission (HCC) | completed | + +------+--------+ + + | URIC ACID, PLASMA | Lab | Routin | Chronic myeloid | Every 10 weeks for | | | | e | leukemia, | 10 Occurrences | | | | | BCR/ABL-positive, | starting 04/10/2019 | | | | | not having achieved | until 05/10/2020, 2 | | | | | remission (HCC) | completed | + +------+--------+ + + documented as of this encounter Results URIC ACID, PLASMA (06/10/2019 12:14 PM PDT) [...] | + + + + + | [facility] | [address] | [place] [address] | | | [facility] | | | | | [...] + | SPECIMEN | Blood | | [facility] | | | TYPE | | | DIAGNOSTIC | | | SUBMITTED | | | | | | | | | LABORATORIE | | | | | | S | | + +-------+ + + + | BCR-ABL | 0.20 | % | [facility] | | | ([facility] | | | [...] monitoring As per your request, to | [facility] | | determine the level of minimal residual leukemia, we have completed a | DIAGNOSTIC | | quantitative RT-PCR analysis of BCR-ABL RNA, a marker of the presence | LABORATORIES | | and amount of transcriptionally active [place] chromosome | | | positive leukemia cells. [...] "minor breakpoint cluster region" | | | [id number] breakpoints include translocations involving upstream | | [...] | | performance characteristics determined by the [facility] Molecular | | | Diagnostics Center. It has not been cleared or approved by the Food | | | and Drug Administration. FDA approval is not required for clinical use | | | of the test, and therefore validation was done as required under the | | | requirements of the Clinical Laboratory Improvement Act of 1988. The | | | [facility] is a fully licensed and/or | | | accredited clinical laboratory under CLIA, CAP, and the State of | | | [place]. Reviewed and electronically signed by Jackie | | | MD Nae 06/14/2019 4:42 PM | | + + + + + + + + | Performing | Address | City/State/Zipcode | Phone Number | | Organization | | | | + + + + + | [facility] | [address] | [place] [phone] | | | DIAGNOSTIC | [address] [...] | | | LABORATORY | | | [facility] | | | SERVICES, | | | [...] MDRD equation recommended by the National | [facility] | | Kidney Disease Education Program. Estimated [...] | + + + + + | [facility] | [address] | [place] [address] | | | SERVICES, [place] [facility] | | | | | HE[facility] + HEALING | | | | + + + + + URIC ACID, PLASMA (04/29/2019 10:58 AM PDT) + +-------+ + + + | Component | Value | Ref Range | Performed | Pathologist | | | | | At | Signature | + +-------+ + + + | URIC ACID, | 4.6 | 2.5 - 6.2 mg/dL | [facility] [...] | + + + + + | [facility] | [address] | [place] [address] | | | [facility] | [address] | | | + + + + + BCR - ABL RNA QUANT, BLOOD (04/29/2019 10:58 AM PDT) + +-------+ + + + | Component | Value | Ref Range | Performed | Pathologist | | | | | At | Signature | + +-------+ + + + | SPECIMEN | Blood | | [facility] | | | TYPE | | | DIAGNOSTIC | | | SUBMITTED | | | | | | | | | LABORATORIE | | | | | | S | | + +-------+ + + + | BCR-ABL | 0.43 | % | [facility] | | | ([facility] | | | [...] | | and amount of transcriptionally active [place] chromosome | | | positive leukemia cells. This RT-PCR assay detects the most common | | | BCR-ABL major and minor (p210 and p190) translocation breakpoints. The | | | translocation breakpoints detectable by this assay include [id number] | | | (p210), e14a2 (p210) and e1a2 (p190). Uncommon p210 and p190 | | | translocation breakpoints, as well as p230 translocation breakpoints | | | will not be detected with this assay. Should an uncommon BCR-ABL | | | translocation breakpoint that is not detectable with this assay be | | | suspected, please contact the lab, as an alternative PCR assay can be | | | utilized. Moderate level of BCR-ABL p210 transcript is detected. | | | There is no p190 transcript detected. Moderate level of leukemia | | | cells persists. Major molecular response has not been achieved. | | | Additional anti-leukemic therapy is likely required. The | | | international scale (IS) of reporting defines a BCR-ABL p210 RNA level | | | of 0.1% as being equivalent to a [...] | | | level below that threshold. The results of the p190 assay are | | | reported as a ratio of the amount of BCR-ABL p190 RNA divided by the | | | amount of reference gene ABL RNA (in percent). Both RNA's are | | | quantitated by real-time PCR using the consensus PCR reagents and | | | conditions from the EAC ([place] Against Cancer) group [Simona et al | | | Leukemia 17: 6019-2126 (2002)]. The quantitative expression level for | | | the BCR-ABL p190 RNA is not reported on the international scale (as is | | | BCR-ABL p210 RNA). The low-level analytical sensitivity of this assay | | | is approximately 0.01% (transcript ratio), such that a "negative" | | | sample may still have a very low-level BCR-ABL p190 RNA level below | | | that threshold. This test was developed and its performance | | | characteristics determined by the [facility]. | | | It has not been cleared or approved by the Food and Drug | | | Administration. FDA approval is not required for clinical use of the | | | test, and therefore validation was done as required under the | | | requirements of the Clinical Laboratory Improvement Act of 1988. The | | | [facility] is a fully licensed and/or | | | accredited clinical laboratory under CLIA, CAP, and the State of | | | [place]. Reviewed and electronically signed by DANIELLE GROVER MD,PhD | | | 05/02/2019 11:00 AM | | + + + + + + + + | Performing | Address | City/State/Zipcode | Phone Number | | Organization | | | | + + + + + | [facility] | [address] | [place] [address] | | | DIAGNOSTIC | [address] | | | | LABORATORIES | | | | + + + + + [facility] - COMPLETE METABOLIC SET (04/29/2019 10:58 AM PDT) + +---------+ + + + | Component | Value | Ref Range | Performed | Pathologist | | | | | At | Signature | + +---------+ + + + | GLUCOSE, | 94 | 70 - 99 mg/dL | [facility] [...] +---------+ + + + | CREATININE | 0.70 | 0.60 - 1.10 | [facility] | | | PLASMA | | mg/dL | LABORATORY | | | (LAB) | | | SERVICES, | | | | | | CORE | | + +---------+ + + + | EGFR | >60 | >60 mL/min | [facility] | | | - | | | LABORATORY | | | [facility] | | | SERVICES, | | | [...] +---------+ + + + | POTASSIUM, | 3.9 | 3.4 - 5.0 | [facility] | | | PLASMA | | mmol/L | LABORATORY | | | (LAB) | | | SERVICES, | | | | | | CORE | | + +---------+ + + + | CHLORIDE, | 109 (H) | 97 - 108 mmol/L | [...] +---------+ + + + | CALCIUM, | 9.0 | 8.6 - 10.2 | [facility] | | | PLASMA | | mg/dL | LABORATORY | | | (LAB) | | | SERVICES, | | | | | | CORE | | + +---------+ + + + | CALCIUM(ALB | 9.4 | 8.6 - 10.2 | [facility] | | | CORRECTED) | | mg/dL | LABORATORY | | | | | | SERVICES, | | | | | | CORE | | + +---------+ + + + | BILIRUBIN | 0.7 | 0.3 - 1.2 mg/dL | [facility] | | | TOTAL | | | LABORATORY | | | | | | SERVICES, | | | | | | CORE | | + +---------+ + + + | TOTAL | 6.8 | 6.4 - 8.2 g/dL | [facility] [...] + + + | ALK PHOS | 82 | 42 - 98 U/L | [facility] | | | | | | LABORATORY | | | | | | SERVICES, | | | | | | CORE | | + +---------+ + + + | AST(SGOT) | 20 | <=41 U/L | [facility] | | | | | | LABORATORY | | | | | | SERVICES, | | | | | | CORE | | + +---------+ + + + | ALT (SGPT) | 24 | <=60 U/L | [facility] | | | | | | LABORATORY | | | | | | SERVICES, | | | | | | CORE | | + +---------+ + + + | ANION GAP | 9 | 4 - 11 mmol/L | [facility] | | | | | | LABORATORY | | | | | | SERVICES, | | | | | | CORE | | + +---------+ + + + | ANION | 10 | 4 - 11 mmol/L | [facility] [...] MDRD equation recommended by the National | [facility] | | Kidney Disease Education Program. Estimated GFR Interpretive | LABORATORY | | Information: <60 mL/min/1.73 sq m Chronic Kidney | SERVICES, CORE | | Disease <15 mL/min/1.73 sq m Kidney Failure | | | Estimated GFR greater than 60 mL/min/1.73 sq m is of limited clinical | | | value. The MDRD equation is not valid in the following situations: - | | | Patients under 18 years of [...] | + + + + + | [facility] | [address] | [place] [address] | | | SERVICES, CORE | TRAC[facility] [...]
--- OUTSIDE RECORDS SUMMARY | ~2020-03-13 | XMS | Encounter Summary ---
Demographics + + + | Address | [address] | | | [place] [address] | + + + | Home Phone [...] Team Providers + +------+ + | Care Brim Welt Sewing Machine Operator Name | Role | Phone | + +------+ + | Burton Masters MD | PCP | | + +------+ + Encounter Details +--------+ + + + + | Date | Type | Department | Care Team | Description | +--------+ + + + + | 11/20/ | Hospital | [facility] | Dorota Beal | Twin , | | 2018 | Encounter | [address] | DO [place] [address] | antepartum, | | | | [place], [place] | [facility] | unspecified multiple | | | | [address] | [facility] [place] [place] [address] | gestation type | | | | [phone] | [phone] | | | | | | | [...] [place] | | | | | | [address] | | | | | | | | +--------+ + + + + | 03/18/ | Office | Physical Medicine | Jovana Dawson | | | 2019 | Visit | and Rehabilitation | MELANY Man [address] | | | | | | [address] | | | | | | [place] | | | | | | [address] | | | | | | | | +--------+ + + + + | 04/01/ | Appointment | Oncology | Deny Mcmanus, | | | 2019 | | | [address] | | | | | | [place] | | | | | | [place] [address] | | | | | | [phone] | | | | | | | | +--------+ + + + + | 04/08/ | Procedure | Physical Medicine | Leonard De Leon | | | 2019 | visit | and Rehabilitation | MD Audelia [address] | | | | | | [place] | | | | | | [address] | | | | | | | | +--------+ + + + + | 04/30/ | Office | Cardiology | Shad Saavedra, | | | 2019 | Visit | | [address] | | | | | | [place], | | | | | | [place] [address] | | | | | | [phone] | | | | | | | | +--------+ + + + + documented as of this encounter Procedures + +--------+ + + + | Procedure Name | Priori | Date/Time | Associated Diagnosis | Comments | | | ty | | | | + +--------+ + + + | US OB FOLLOW UP | Routin | 11/20/2017 | Twin , | Results for this | | TRANSABDOMINAL | e | 8:45 AM | antepartum, | procedure are in the | | | | PST | unspecified multiple | results section. | | | | | gestation type | | + +--------+ + + + documented in this encounter Results US OB Follow Up Transabdominal (11/20/2017 8:45 AM PST) + + | Specimen | + + | | + + + +--------- ------+ | Narrative | Performe d At | + +--------- ------+ | TECHNIQUE: | [facility] | | Routine transabdominal imaging of the uterus. CLINICAL INFORMATION: US | | | OB Follow Up Transabdominal. COMPARISON: None available. | | | FINDINGS:Intrauterine gestation(s): TwinCervix: 3.1 cm in length and | | | appears closed. MEASUREMENTS: FETUS A: LeftPlacenta location: | | | Anterior. presentation: Breech. Biparietal diameter: 6.62 cm, | | | corresponding to 26 weeks 5 days.Head circumference: 24.58 cm, | | | corresponding to 26 weeks 5 days.Abdominal circumference: 22.15 cm, | | | corresponding to 26 weeks 4 days.Femur length: 4.90 cm, corresponding | | | to 26 weeks 3 days. heart rate: 145 bpmCephalic index: 76%, | | | normal. HC/AC ratio: 1.11, normal. Amniotic fluid: Normal.Estimated | | | weight: 953 grams, 38 percentile.Estimated gestational age by | | | ultrasound is 26 weeks 4 days and by last menstrualperiod is 27 weeks | | | 2 days. FETUS B: RightPlacenta location: Posterior. | | | presentation: Breech. Biparietal diameter: 6.56 cm, corresponding to | | | 26 weeks 3 days.Head circumference: 24.49 cm, corresponding to 26 | | | weeks 4 days.Abdominal circumference: 22.29 cm, corresponding to 26 | | | weeks 5 days.Femur length: 4.69 cm, corresponding to 25 weeks 4 | | | days. heart rate: 145 bpmCephalic index: 75%, normal. HC/AC | | | ratio: 1.10, normal. Amniotic fluid: Normal.Estimated weight: | | | 919 grams, 34 percentile.Estimated gestational age by ultrasound is | | | 26 weeks 2 days and by last menstrualperiod is 27 weeks 2 days. | | | IMPRESSION - Twin with concordant dating and appropriate | | | growth asabove. Dictated and Signed by: Tyshawn Newton MD | | | Electronically signed: 11/21/2017 8:02 AM | | |Estimated gestational age by ultrasound is 26 weeks 4 days and by last menstrual | | |period is 27 weeks 2 days. | | | | | | | | |FETUS B: Right | | |Placenta location: Posterior. | | | presentation: Breech. | | |Biparietal diameter: 6.56 cm, corresponding to 26 weeks 3 days. | | |Head circumference: 24.49 cm, corresponding to 26 weeks 4 days. | | |Abdominal circumference: 22.29 cm, corresponding to 26 weeks 5 days. | | |Femur length: 4.69 cm, corresponding to 25 weeks 4 days. | | | heart rate: 145 bpm | | |Cephalic index: 75%, normal. | | |HC/AC ratio: 1.10, normal. | | |Amniotic fluid: Normal. | | |Estimated weight: 919 grams, 34 percentile. | | |Estimated gestational age by ultrasound is 26 weeks 2 days and by last menstrual | | |period is 27 weeks 2 days. | | | | | | | | |IMPRESSION - Twin with concordant dating and appropriate growth as | | |above. | | | | | |Dictated and Signed by: Tyshawn Newton MD | | | Electronically signed: 11/21/2017 8:02 AM | | | | | + +--------- ------+ + + | Procedure Note | + + | Ruben, Ector Results In - 11/21/2017 8:05 AM PST | | TECHNIQUE: Routine transabdominal imaging of the uterus. | | | | CLINICAL INFORMATION: US OB Follow Up Transabdominal. | | | | COMPARISON: None available. | | | | FINDINGS: | | Intrauterine gestation(s): Twin | | Cervix: 3.1 cm in length and appears closed. | | | | MEASUREMENTS: | | | | FETUS A: Left | | Placenta location: Anterior. | | presentation: Breech. | | Biparietal diameter: 6.62 cm, corresponding to 26 weeks 5 days. | | Head circumference: 24.58 cm, corresponding to 26 weeks 5 days. | | Abdominal circumference: 22.15 cm, corresponding to 26 weeks 4 days. | | Femur length: 4.90 cm, corresponding to 26 weeks 3 days. | | heart rate: 145 bpm | | Cephalic index: 76%, normal. | | HC/AC ratio: 1.11, normal. | | Amniotic fluid: Normal. | | Estimated weight: 953 grams, 38 percentile. | | Estimated gestational age by ultrasound is 26 weeks 4 days and by last menstrual | | period is 27 weeks 2 days. | | | | | | FETUS B: Right | | Placenta location: Posterior. | | presentation: Breech. | | Biparietal diameter: 6.56 cm, corresponding to 26 weeks 3 days. | | Head circumference: 24.49 cm, corresponding to 26 weeks 4 days. | | Abdominal circumference: 22.29 cm, corresponding to 26 weeks 5 days. | | Femur length: 4.69 cm, corresponding to 25 weeks 4 days. | | heart rate: 145 bpm | | Cephalic index: 75%, normal. | | HC/AC ratio: 1.10, normal. | | Amniotic fluid: Normal. | | Estimated weight: 919 grams, 34 percentile. | | Estimated gestational age by ultrasound is 26 weeks 2 days and by last menstrual | | period is 27 weeks 2 days. | | | | | | IMPRESSION - Twin with concordant dating and appropriate growth as | | above. | | | | Dictated and Signed by: Tyshawn Newton MD | | Electronically signed: 11/21/2017 8:02 AM | + + + +---------+ + + | Performing | Address | City/State/Zipcode | Phone Number | | Organization | | | | + +---------+ + + | [facility] | | | | + +---------+ + + documented in this encounter Visit Diagnoses + + | Diagnosis | + + | Twin , antepartum, unspecified multiple gestation type | + + documented in this encounter"
--- OUTSIDE RECORDS SUMMARY | ~2020-03-13 | XMS | Encounter Summary ---
Demographics + + + | Address | [address] | | | [place] [address] | + + + | Home Phone [...] Providers + +------+ + | Care Health Information Director Name | Role | Phone | [...] | +--------+ + + + + | 09/04/ | Telephone | [facility] | Deny Mcmanus, | Other | | 2019 | | [facility] | [address] | | | | | [facility] [address] [place], | | | | | [place] | [place] [address] | | | | | [place] [address] | [phone] | | | | | [phone] | | | +--------+ + + + [...] [place] | | | | | | [address] | | | | | | | | +--------+ + + + + | 03/18/ | Office | Physical Medicine | Jovana Dawson | | | 2019 | Visit | and Rehabilitation | [address] | | | | | | [address] | | | | | | [address] [place] | | | | | | [address] | | | | | | | | +--------+ + + + + | 04/01/ | Appointment | Oncology | Deny Mcmanus, | | 2019 | | | MD [address] | | | | | | [place] | | | | | | [place] [address] | | | | | | [phone] | | | | | | | | +--------+ + + + + | 04/08/ | Procedure | Physical Medicine | Leonard De Leon | | 2019 | visit | and Rehabilitation | T, MD [address] | | | | | | [place] | | | | | | [address] | | | | | | | | +--------+ + + + + | 04/30/ | Office | Cardiology | Shad Saavedra, | | | 2019 | Visit | | MD [address] | | | | | | [place], | | | | | | [place] [address] | | | | | | [phone] | | | | | | | | +--------+ + + + + documented as of this encounter Visit Diagnoses Not on filedocumented in this encounter"
--- OUTSIDE RECORDS SUMMARY | ~2020-03-13 | XMS | Encounter Summary ---
Demographics + + + | Address | [address] | | | [place] [address] | + + + | Home Phone | | + + + | Preferred Language | Unknown | + + + | Marital Status | | + + + | Rastafarian Affiliation | Unknown | + + + | Race | Unknown | + + + | Ethnic Group | Unknown | + + + Author + + + | Author | [facility] | | | and [place] | + + + | Organization | [facility] | | | and [...] Team Providers + +------+ + | Care Explosives Operator Name | Role | Phone | [...] Description | +--------+--------+ + + + | 08/20/ | Refill | [facility] | Burton Masters, | Medication Refill | | 2019 | | [facility]IC[facility] [place] | [address] | | | | | [address] | [place] | | | | | [place] | [address] | | | | | [address] | | | | | | [phone] | | | +--------+--------+ + + + [...] [place] | | | | | | [address] | | | | | | | | +--------+ + + + + | 03/18/ | Office | Physical Medicine | Jovana Dawson | | | 2019 | Visit | and Rehabilitation | MELANY Man [address] | | | | | | [address] [facility] | | | | | | [address] [place] | | | | | | [address] | | | | | | | | +--------+ + + + + | 04/01/ | Appointment | Oncology | Deny Mcmanus, | | | 2019 | | | MD [address] | | | | | | [place] | | | | | | [place] [address] | | | | | | [phone] | | | | | | | | +--------+ + + + + | 04/08/ | Procedure | Physical Medicine | Leonard De Leon | | | 2019 | visit | and Rehabilitation | MD Kiki Win | | | | | | [place] | | | | | | [address] | | | | | | | | +--------+ + + + + | 04/30/ | Office | Cardiology | Shad Saavedra, | | | 2019 | Visit | | MD [address] | | | | | | [place], | | | | | | [place] [address] | | | | | | [phone] | | | | | | | | +--------+ + + + + documented as of this encounter Visit Diagnoses Not on filedocumented in this encounter"
--- OUTSIDE RECORDS SUMMARY | ~2020-03-13 | XMS | Encounter Summary ---
Demographics + + + | Address | [address] | | | [place] [address] | + + + | Home Phone | | + + + | Preferred Language | Unknown | + + + | Marital Status | | + + + | Bahai Affiliation | Unknown | + + + [...] Providers + +------+ + | Care Composition Mixer Name | Role | Phone | + +------+ + | Burton Masters MD | PCP | | + +------+ + Encounter Details +--------+ + + + + | Date | Type | Department | Care Team | Description | +--------+ + + + + | 01/08/ | Orders Only | [facility] | Burton Masters, | | | 2019 | | [facility] | [address] | | | | | [address] | [place] | | | | | [place] | [address] | | | | | [address] | | | | | | [phone] | | | +--------+ + + + [...] | | Visit | | [address] [facility] [address] | | | | | | [place] | | | | | | [address] | | | | | | | | +--------+ + + + + | 03/18/ | Office | Physical Medicine | Jovana Dawson | | | 2019 | Visit | and Rehabilitation | [address] | | | | | | [address] | | | | | | [address] [place] | | | | | | [address] | | | | | | | | +--------+ + + + + | 04/01/ | Appointment | Oncology | Deny Mcmanus, | | | 2019 | | | [address] | | | | | | [place], | | | | | | [place] [address] | | | | | | [phone] | | | | | | | | +--------+ + + + + | 04/08/ | Procedure | Physical Medicine | Leonard De Leon | | | 2019 | visit | and Rehabilitation | MD Audelia [address] | | | | | | [place] | | | | | | [address] | | | | | | | | +--------+ + + + + | 04/30/ | Office | Cardiology | Shad Saavedra, | | | 2019 | Visit | | [address] | | | | | | [place], | | | | | | [place] [address] | | | | | | [phone] | | | | | | | | +--------+ + + + + documented as of this encounter Visit Diagnoses Not on filedocumented in this encounter"
--- OUTSIDE RECORDS SUMMARY | ~2020-03-13 | XMS | Encounter Summary ---
Demographics + + + | Address | [address] [facility] [facility] | | | [place] [address] | + + + | Home Phone | | + + + | Preferred Language | Unknown | + + + | Marital Status | | + + + | Shinto Affiliation | Unknown | + + + [...] Team Providers + +------+ + | Care Account Resolution Analyst Name | Role | Phone | [...] | | | | Services | Services | Inter-twin | Emigdio, | | | | Required | | discordance, | Dorota Rand, | | | | | | third | DO [address] | | | | | | trimester | [address] | | | | | | | [place], | | | | | | | [place] [address] | | | | | | | Phone: | | | | | | | [phone] | | | | | | | Fax: | | | | | | | [phone] | | +--------+ + + + + [...] | | | | | | | AR | | | | | | | DELIVERY | | | | | | | ONLY Repeat | | | | | | | | | | +--------+--------+ + + + + Encounter Details +--------+ + + + + | Date | Type | Department | Care Team | Description | +--------+ + + + + | 01/16/ | Hospital | [facility] | Dorota Beal | Inter-twin | | 2018 - | Encounter | [facility] | [place], DO [address] | discordance, third | | | | [address] | [address] [place] | trimester (Primary | | 01/21/ | | [place], [place] | [place] [address] | Dx) | | 2018 | | [address] | [phone] | | | | | [phone] | | | +--------+ + + + [...] Physician Discharge Summary Patient ID: Ashley Webb [id number] 33 y.o. 1985 Admit date: 01/16/2018 Discharge [...] ondansetron 8 mg disintegrating tablet aka: BRISA ODT Activity: no sex for 6 weeks, no [...] position. Remember, it can take as long [id number] for a incision to heal. Activity Here [...] anxiety, panic, and/or depression Date Last Reviewed: 06/21/201519992988-2547 [employer]. [address] [place] [address], [place] [address]. All righ ts reserved. This information is [...] ctrim po as outpatient. 4. DC home EDorota Chambers DO - 01/19/2018 5:14 PM PDTWith removal [...] marking pen No fundal tenderness. Incision C/D/I. [place] intact. Ecchymosis noted superior asp ect of incision and now extending to mons pubis. Ext: Tr edema b/l LE Will cancel discharge and keep patient as inpatient. Unasyn 3g q 6 hours initiated. Repeat CBC. Will continue to monitor for fever and determine DC dependent upon improving symptomsElectr onically signed by Dorota Beal DO at 01/19/2018 5:17 PM DULCEDorota Hayes DO - 01/19/2018 8:32 AM PDTPt seen [...] Appropriately tender. No fundal tenderness. Incision C/D/I. [place] intact. Ecchymosis noted superior aspect of incision [...] Appropriately tender. No fundal tenderness. Incision C/D/I. [place] intact. Minimal ecchymosis noted superior aspect of [...] [place] | | | | | | [address] | | | | | | | | +--------+ + + + + | 03/18/ | Office | Physical Medicine | Jovana Dawson | | | 2019 | Visit | and Rehabilitation | MELANY Man [address] | | | | | | [address] | | | | | | [place] | | | | | | [address] | | | | | | | | +--------+ + + + + | 04/01/ | Appointment | Oncology | Deny Mcmanus, | | 2019 | | | [address] | | | | | | [place] | | | | | | [place] [address] | | | | | | [phone] | | | | | | | | +--------+ + + + + | 04/08/ | Procedure | Physical Medicine | Leonard De Leon | | | 2019 | visit | and Rehabilitation | MD Audelia [address] | | | | | | [place] | | | | | | [address] | | | | | | | | +--------+ + + + + | 04/30/ | Office | Cardiology | Shad Saavedra, | | | 2019 | Visit | | [address] | | | | | | [place], | | | | | | [place] [address] | | | | | | [phone] | | | | | | | [...] + +--------+ + + + | EXTRA FOZIA LOVE | Routin | 01/20/2018 | | Results [...] | | | Lavender | | | [facility] | | [...] [address] | [place] | [phone] | | [facility] | | [address] | | | - LABORATORY | | [...] | | | | g/dL | [address] | | | | [...] [address] | [place] | [phone] | | [facility] | | [address] | | | - LABORATORY | | [...] [address] | [place] | [phone] | | [facility] | | [address] | | | - LABORATORY | | [...] ST. | [address] | [place] | | | [facility] | | [address] | | | - BLOOD BANK | [...] | MPV | 7.7 | fL | [facility] | | | [...] ST. | [address] | [place] | [phone] | | [facility] | | [address] | | | - LABORATORY | | | | + + + + + Surgical Pathology Exam (01/16/2018 12:00 AM PDT) + + | Specimen | + + | | + + + + + | Narrative | Performed At | + + + | SPECIMEN(S): A FALLOPIAN TUBES, BILATERAL SPECIMEN SOURCE: A. | [place] [facility] | | FALLOPIAN TUBES, BILATERAL CLINICAL HISTORY: O34.211 (Maternal | INCYTE | | care for low transverse scar from previous delivery), Z30.2 | | | (encounter for sterilization) FINAL PATHOLOGIC DIAGNOSIS: | | | Bilateral fallopian tubes: - Two segments of benign oviduct, both | | | completely transected. JVR:[facility]:C2NR GROSS DESCRIPTION: The | | | specimen is labeled "Ashley Webb, bilateral tube segments". | | | Submitted in formalin are two 1.3 cm segments of oviduct, one segment | | | is inked green, the other is inked black. They are serially sectioned | | | and totally embedded in one cassette. JVR:[facility] MICROSCOPIC | | | EXAMINATION: Histologic sections of all submitted blocks are examined | | | by light microscopy. These findings, together with the gross | | | examination, support the pathologic diagnosis. PERFORMING | | | LABORATORY: Tissue processing and slide preparation were performed by | | | [facility], [address], [place] [address] | | | (Front Office Associate: Robin Holt M.D.; CLIA#: [id number]). | | | Professional interpretation was performed by [facility], | | | [facility], [address] | | | [place] [address] (Front Office Associate: Robin Holt M.D.; CLIA#: | | | [id number]). Diagnostician: Robin Holt MD Pathologist | | [...] + | Diagnosis | + + | Inter-twin discordance, third trimester - Primary | + + documented in [...] +---+---+ | | | +---+---+ + +---------+ +-----+ +---+ | ceFAZolin (ANCEF, KEFZOL) 100 | New Bag | 01/19/20 | 2 g | 40 mL/hr | | | mg/mL IV syringe 2 g 2 g, | | 18 8:02 | | | | | Intravenous, Administer over 30 | | AM PDT | | | | | Minutes, EVERY 8 HOURS (3 times | | | | | | | per day), First dose on Mon | | | | | | | 01/17/18 at 0000, , | | | | | | | Indications: Surgical Prophylaxis | | | | | | + +---------+ +-----+ +---+ +---------+ +-----+ +---+ | New Bag | 01/19/20 | 2 g | 40 mL/hr | | | | 18 12:15 | | | | | | AM PDT | | | | +---------+ +-----+ +---+ | New Bag | 01/18/20 | 2 g | 40 mL/hr | | | | 18 4:40 | | | | | | PM PDT | | | | +---------+ +-----+ +---+ +---+---+ | | | +---+---+ + +-------+ +--------+---+---+ | cephalexin (KEFLEX) capsule 500 | Given | 01/20/20 | 500 mg | | | | mg 500 mg, Oral, 3 TIMES DAILY, | | 18 8:23 | | | | | First dose on [facility] 01/18/18 at | | AM PDT | | | | | 0915, For 7 days, Indications: | | | | | | | Surgical Prophylaxis | | | | | | + +-------+ +--------+---+---+ +-------+ +--------+---+---+ | Given | 01/19/20 | 500 mg | | | | | 18 9:24 | | | | | | PM PDT | | | | +-------+ +--------+---+---+ | Given | 01/19/20 | 500 mg | | | | | 18 1:51 | | | | | | PM [...] | | +---+---+ + +-------+ +--------+---+---+ | fentaNYL (PF) injection 25-50 | Given | 01/17/20 | 50 mcg | | | | mcg 25-50 mcg, Intravenous, | | 18 5:29 | | | | | EVERY 5 MIN PRN, Pain, Starting | | PM PDT | | | | | 01/16/18 at 1700, Maximum | | | | | | [...] | | | | | | hydromorphone if morphine | | | | | | | ineffective., Recovery/Phase I | | | | | | + +-------+ +--------+---+---+ +-------+ +--------+---+---+ | Given | 01/17/20 | 50 mcg | | | | | 18 5:18 | | | | | | PM PDT | | | | +-------+ +--------+---+---+ +---+---+ | | | +---+---+ + +-------+ +--------+---+---+ | HYDROmorphone (DILAUDID) 2 | Given | 01/17/20 | 0.5 mg | | | | mg/mL injection 0.2-0.5 mg | | 18 6:06 | | | | | 0.2-0.5 mg, Intravenous, EVERY 5 | | PM PDT | | | | | MIN PRN, Pain, Starting Tue | | | | | | | 01/16/18 at 1700, Maximum total | | | | | | | dose 4 mg. PACU IV Narcotic | | | | | | | Priority: Only use fentanyl for | | | | | | | immediate post-op pain (one dose) | | | | | | | or breakthrough pain when any | | | | | | | other IV narcotics ordered have | | | | | | | been ineffective (if ordered). | | | | | | | If both morphine and | | | | | | | hydromorphone are ordered, use | | | | | | | morphine first, and use | | | | | | | hydromorphone if morphine | | | | | | | ineffective., Recovery/Phase I | | | | | | + +-------+ +--------+---+---+ +-------+ +--------+---+---+ | Given | 01/17/20 | 0.5 mg | | | | | 18 5:50 | | | | | | PM [...] | ibuprofen (ADVIL,MOTRIN) tablet | Given | 01/22/20 | 600 mg | | | | [...] | ketorolac (TORADOL) injection | Given | 01/18/20 | 30 mg | | | | 30 mg 30 mg, Intravenous, EVERY | | 18 1:21 | | | | | 6 HOURS (4 times per day), First | | PM PDT | | | | | dose on Mon01/16/18 at 1915, For | | | | | | [...] +-------+ +-------+---+---+ +-------+ +-------+---+---+ | Given | 01/18/20 | 30 mg | | | | | 18 6:12 | | | | | | AM PDT | | | | +-------+ +-------+---+---+ | Given | 01/18/20 | 30 mg | | | | | 18 12:00 | | | | | | AM [...] | | | | 01/20/18 at 0756, Shake well., | | | | | | + +-------+ +--------+---+---+ +-------+ +--------+---+---+ | Given | 01/21/20 | 30 mLs | | | | | 18 8:10 | | | | | | AM PDT | | | | +-------+ +--------+---+---+ +---+---+ | | | +---+---+ + +-------+ +-------+---+---+ | oxyCODONE (ROXICODONE) tablet | Given | 01/18/20 | 15 mg | | | | 5-15 mg 5-15 mg, Oral, EVERY 3 | | 18 4:40 | | | | | HOURS PRN, Pain, Starting Tue | | PM PDT | | | | | 01/16/18 at 2257, For 24 hours, If | | | | | | | ineffective or not tolerated, | | | | | | | contact prescriber, | | | | | | | Anesthesiology approved? Yes, | | | | | | | Post-op/Phase II | | | | | | + +-------+ +-------+---+---+ +-------+ +-------+---+---+ | Given | 01/18/20 | 10 mg | | | | | 18 7:26 | | | | | | AM PDT | | | | +-------+ +-------+---+---+ | Given | 01/18/20 | 10 mg | | | | | 18 4:17 | | | | | | AM [...] saline (PITOCIN) 30 | New Bag | 01/17/20 | 100 | 100 | | | units/500 mL (60 tamiko-units/mL) | | 18 6:03 | tamiko-un | mL/hr | | | infusion 0-999 tamiko-units/min | | PM PDT | its/min | | | | (0-999 mL/hr), at 0-999 mL/hr, | | | | | | | Intravenous, CONTINUOUS PRN, to | | | | | | | control bleeding, Starting Tue | | | | | | | 01/16/18 at 1758, For 24 hours, | | | | | | | Immediate third stage management: | | | | | | | 350 mL/hr x hour, then 100 | | | | | | | mL/hr x 3.5 hours. May stop after | | | | | | | 4 hours post-delivery if | | | | | | | bleeding is controlled, bladder | | | | | | | not distended. In the event of | | | | | | | subsequent bleeding, | | | | | | | restart and titrate oxytocin, and | | | | | | | notify OB provider., | | | | | | + [...] | | +---+---+ + +-------+ +--------+---+---+ | sodium citrate-citric acid | Given | 01/17/20 | 30 mLs | | | | (BICITRA) liquid 30 mL 30 mL, | | 18 3:21 | | | | | Oral, ONCE, 01/16/18 at 1515, | | PM PDT | | | | | For 1 dose, Give immediately | | | | | | | prior to going into the operating | | | | | | | room., Pre-op | | | | | | + +-------+ +--------+---+---+ +---+---+ | | | +---+---+ + +-------+ + +---+---+ | sulfamethoxazole-trimethoprim | Given | 01/20/20 | 1 tablet | | | | (BACTRIM DS) 800-160 mg per | | 18 10:21 | | | | | tablet 1 tablet 1 tablet, Oral, | | AM PDT | | | | | 2 TIMES DAILY, First dose on Fri | | | | | | | 01/19/18 at 0900, Indications: | | | | | | | Cellulitis | | | | | | + +-------+ + +---+---+ +---+---+ | | | +---+---+ documented in this encounter
--- OUTSIDE RECORDS SUMMARY | ~2020-03-13 | XMS | Encounter Summary ---
Demographics + + + | Address | [address] [address] [facility] | | | [place] [address] | + + + | Home Phone [...] Team Providers + +------+ + | Care Strategic Planning Director Name | Role | Phone | + +------+ + | Burton Masters MD | PCP | | + +------+ + Reason for Visit + + + | Reason | Comments | + + + | Emesis During | | | | | + + + Encounter Details +--------+ + + + + | Date | Type | Department | Care Team | Description | +--------+ + + + + | 10/16/ | Emergency | [facility] | Sushila, | Trace | | 2017 | | [facility] | Arthur Sarabia MD [address] | (Primary Dx); | | | | CENTER [address] | [address] [place] | with [address] | | | | [place], [place] | [place] [address] | completed weeks | | | | [address] | [phone] | gestation | | | | [phone] | | | +--------+ + + + [...] + + + | Blood Pressure | 112/74 | 10/16/2017 10:28 AM | | | | | PST | | + + + + + | Pulse | 102 | 10/16/2017 10:28 AM | | | | | PST | | + + + + + | Temperature | 36.3 C (97.3 F) | 10/16/2017 10:28 AM | | | | | PST | | + + + + + | Respiratory Rate | 16 | 10/16/2017 10:28 AM | | | | | PST | | + + + + + | Oxygen Saturation | 96% | 10/16/2017 10:28 AM | | | | | PST | | + + + + + | Inhaled Oxygen | - | - | | | Concentration | | | | + + + + + | Weight | 107 kg (236 lb) | 10/16/2017 8:30 AM | | | | | PST | | + + + + + | Height | 172.7 cm (5' 8") | 10/16/2017 8:30 AM | | | | | PST | | + + + + + | Body Mass Index | 35.88 | 10/16/2017 8:30 AM | | | | | PST | | + + + + + documented in this encounter Discharge Instructions Instructions Arthur Conti MD - 10/16/2017Home and john Zofran for nausea Plenty of clear liquids, gradually advance your diet as tolerated documented in this encounter Medications at Time [...] [address] | | | | | | [place] | | | | | | [address] | | | | | | | | +--------+ + + + + | 03/18/ | Office | Physical Medicine | Jovana Dawson | | | 2019 | Visit | and Rehabilitation | MELANY Man [address] | | | | | | [facility] | | | | | | [address] [place] | | | | | | [address] | | | | | | | | +--------+ + + + + | 04/01/ | Appointment | Oncology | Deny Mcmanus, | | | 2019 | | | MD [address] | | | | | | [address] [place], | | | | | | [place] [address] | | | | | | [phone] | | | | | | | | +--------+ + + + + | 04/08/ | Procedure | Physical Medicine | Leonard De Leon | | | 2019 | visit | and Rehabilitation | MD Kiki [address] | | | | | | [place], [place] | | | | | | [address] | | | | | | | | +--------+ + + + + | 04/30/ | Office | Cardiology | Shad Saavedra, | | | 2019 | Visit | | [address] | | | | | | [place], | | | | | | [place] [address] | | | | | | [phone] | | | | | | | | +--------+ + + + + + +------+--------+ + + | Name | Type | Priori | Associated Diagnoses | Date/Time | | | | ty | | | + +------+--------+ + + | ED INFORMATION | KEYUR | Routin | | 10/16/2017 8:22 AM | | EXCHANGE | | e | | PST | + +------+--------+ + + documented as of this encounter Procedures + +--------+ + + + | Procedure Name | Priori | Date/Time | Associated Diagnosis | Comments | | | ty | | | | + +--------+ + + + | ED INFORMATION | Routin | 10/16/2017 | | | | EXCHANGE | e | 8:22 AM | | | | | | PST | | | + +--------+ + + + +---+--------+ | | | | | Proced | | | ure | | | Note - | | | Mario, | | | Lab In | | | | | | Hlseve | | | n - | | | 10/16/ | | | 2017 | | | 8:23 | | | AM PST | | [...] | | | FICATI | | | ON?12/ | | | 11/201 | | | 7 | | | 08:18? | | | LENZ | | | , | | | KATHRY | | | N | | | L?MRN: | | | | | | [id number] | | | [id number] | | | his | | | [...] | | | ent/26 | | | [id number] | | | [id number] | | | [...] | | | int | | | Dec | | | 11, | | | 2017 | | | Provid | | | ence | | | [facility] | | | [facility] | | [place] | | | [place] | | | Emerge | | | ncy | | | Emerge | | | ncy | | | N/V/D | | | Oct | | | 7, | | | 2017 | | | Provid | | | ence | | | St. | | | [facility] | | [facility] | | | [place] | | | [place] | | | Emerge | | | ncy | | | Emerge | | | ncy | | | uti | | | | | | Urinar | | | y Pain | | | | | | Acute | | | cystit | | | is | | | with | | | hematu | | | rafael | | | E.D. | | | [...] | | | Total | | | 5 0 | | | Note: | | [...] | | visits | | | . PDMP | | | | | | Report | | | PDMP | | | query | | | found | | | no | | | report | | | .Care | | | Provid | | | [...] (509) | | | | | | [phone] | | | [...] met | | | | | | Medica | | | id 5 | | | in | | | 12Know | | | n | | | Aliase | | | [...] | | +---+--------+ documented in this encounter Visit Diagnoses + + | Diagnosis | + + | Gastroenteritis - Primary Other and unspecified noninfectious gastroenteritis and | | colitis | + + | with 22 completed weeks gestation | + + documented in this encounter Administered Medications + +--------+ +------+------+------+ | Medication Order | MAR | Action | Dose | Rate | Site | | | Action | Date | | | | + +--------+ +------+------+------+ | ondansetron (ZOFRAN) injection | Given | 10/16/20 | 4 mg | | | | 4 mg 4 mg, Intravenous, EVERY 6 | | 17 8:37 | | | | | HOURS PRN, Nausea, Vomiting, | | AM PST | | | | | Starting 10/16/17 at 0833 | | | | | | + +--------+ +------+------+------+ +---+---+ | | | +---+---+ + +---------+ +--------+-------+---+ | sodium chloride 0.9% (NS) bolus | New Bag | 10/16/20 | 1,000 | 1000 | | | 1,000 mL 1,000 mL, Intravenous, | | 17 8:35 | mLs | mL/hr | | | Administer over 1 Hours, ONCE, | | AM PST | | | | | 10/16/17 at 0840, For 1 dose | | | | | | + +---------+ +--------+-------+---+ +---+---+ | | | +---+---+ + +---------+ +--------+-------+---+ | sodium chloride 0.9% (NS) bolus | New Bag | 10/16/20 | 1,000 | 1000 | | | 1,000 mL 1,000 mL, Intravenous, | | 17 9:44 | mLs | mL/hr | | | Administer over 1 Hours, ONCE, | | AM PST | | | | | 10/16/17 at 0945, For 1 dose | | | | | | + +---------+ +--------+-------+---+ +---+---+ | | | +---+---+ documented in this encounter
--- OUTSIDE RECORDS SUMMARY | ~2020-03-13 | XMS | Encounter Summary ---
Demographics + + + | Address | [address] [address] | | | [place] [address] | + + + | Home Phone [...] Team Providers + +------+ + | Care Rifle Case Repairer Name | Role | Phone | [...] | +--------+ + + + + | 05/03/ | Emergency | [facility] | [address], | Non-intractable | | 2016 | | [facility] | MD [address] | vomiting with | | | | CENTER [address] | [place], [place] | nausea, vomiting of | | | | [place], [place] | [address] | unspecified type | | | | [address] | | (Primary Dx) | | | | [phone] | | | +--------+ + + + [...] + + + | Blood Pressure | 110/55 | 05/03/2016 3:45 PM | | | | | PDT | | + + + + + | Pulse | 97 | 05/03/2016 3:52 PM | | | | | PDT | | + + + + + | Temperature | 37.4 C (99.4 F) | 05/03/2016 12:51 PM | | | | | PDT | | + + + + + | Respiratory Rate | 20 | 05/03/2016 3:52 PM | | | | | PDT | | + + + + + | Oxygen Saturation | 97% | 05/03/2016 3:52 PM | | | | | PDT | | + + + + + | Inhaled Oxygen | - | - | | | Concentration | | | | + + + + + | Weight | 97.1 kg (214 lb) | 05/03/2016 12:51 PM | | | | | PDT | | + + + + + | Height | - | - | | + + + + + | Body Mass Index | 32.55 | 05/03/2016 12:55 AM | | | | | PDT | | + + + + + documented in this encounter Discharge Instructions AttachmentsThe following attachments cannot be sent through Care Everywhere.NAUSEA AND VOMI TINBenjie, HOW TO CONTROL (UZBEK)documented in this encounter Medications at Time of [...] | | 0 | | | | Qlcwrst-Hyvzuvcwj-Tu | | | | | 6 | | lory D (CALCIUM 500 | | | | [...] | | 0 | | | | Kxogeexg-Iqy-Xk-FA | mouth Daily. | | | | [...] | | | Visit | | [facility] [address] | | | | | | [place] | | | | | | [phone] | | | | | | | | +--------+ + + + + | 03/18/ | Office | Physical Medicine | Jovana aDwson | | | 2019 | Visit | and Rehabilitation | MELANY Man [address] | | | | | | [facility] | | | | | | [address] [place] | | | | | | [address] | | | | | | | | +--------+ + + + + | 04/01/ | Appointment | Oncology | Deny Mcmanus, | | 2019 | | | MD [address] | | | | | | [place] | | | | | | [place] [address] | | | | | | [phone] | | | | | | | | +--------+ + + + + | 04/08/ | Procedure | Physical Medicine | Leonard De Leon | | | 2019 | visit | and Rehabilitation | MD Audelia [address] | | | | | | [facility] [place] | | | | | | [id number] | | | | | | | | +--------+ + + + + | 04/30/ | Office | Cardiology | Shad Saavedra, | | | 2019 | Visit | | [address] | | | | | | [place], | | | | | | [place] [address] | | | | | | [phone] | | | | | | | | +--------+ + + + + + +------+--------+ + + | Name | Type | Priori | Associated Diagnoses | Date/Time | | | | ty | | | + +------+--------+ + + | ED INFORMATION | KEYUR | Routin | | 05/03/2016 12:50 PM | | EXCHANGE | | e | | PDT | + +------+--------+ + + documented as of this encounter Procedures + +--------+ + + + | Procedure Name | Priori | Date/Time | Associated Diagnosis | Comments | | | ty | | | | + +--------+ + + + | EXTRA GREEN TOP TUBE | Routin | 05/03/2016 | | Results for this | | | e | 1:45 PM | | procedure are in the | | | | PDT | | results section. | + +--------+ + + + | EXTRA GOLD TOP TUBE | Routin | 05/03/2016 | | Results for this | | | e | 1:45 PM | | procedure are in the | | | | PDT | | results section. | + +--------+ + + + | EXTRA BLUE TOP TUBE | Routin | 05/03/2016 | | Results for this | | | e | 1:45 PM | | procedure are in the | | | | PDT | | results section. | + +--------+ + + + | CBC NO DIFFERENTIAL | STAT | 05/03/2016 | | Results for this | | | | 1:45 PM | | procedure are in the | | | | PDT | | results section. | + +--------+ + + + | LIPASE | STAT | 05/03/2016 | | Results for this | | | | 1:45 PM | | procedure are in the | | | | PDT | | results section. | + +--------+ + + + | COMPREHENSIVE | STAT | 05/03/2016 | | Results for this | | METABOLIC PANEL | | 1:45 PM | | procedure are in the | | | | PDT | | results section. | + +--------+ + + + documented in this encounter Results Extra Blue Top Tube (05/03/2016 1:45 PM PDT) + +-------+ + + + | Component | Value | Ref Range | Performed | Pathologist | | | | | At | Signature | + +-------+ + + + | Extra Blue | Done | | [facility] | | | Top Tube | | | [facility] | | [...] [address] | [place] | [phone] | | [facility] | | [address] | | | - LABORATORY | | | | + + + + + Extra Green Top Tube (05/03/2016 1:45 PM PDT) + +-------+ + + + | Component | Value | Ref Range | Performed | Pathologist | | | | | At | Signature | + +-------+ + + + | Extra Green | Done | | [facility] | | [...] [address] | [place] | [phone] | | [facility] | | [address] | | | - LABORATORY | | | | + + + + + Extra Gold Top Tube (05/03/2016 1:45 PM PDT) + +-------+ + + + [...] + | [facility] | [address] | [place] | [phone] | | [facility] | | [address] | | | - LABORATORY | | | | + + + + + Lipase (05/03/2016 1:45 PM PDT) + +-------+ + + + | Component | Value | Ref Range | Performed | Pathologist | | | | | At | Signature | + +-------+ + + + | Lipase | 16 | 0 - 60 U/L | [facility] | | | | | | [facility] [...] | + + + + + | [facility] | [address] | [place] | [phone] | | [facility] | | [address] | | | - LABORATORY | | | | + + + + + Comprehensive Metabolic Panel (05/03/2016 1:45 PM PDT) + + + + + + | Component | Value | Ref Range | Performed | Pathologist | | | | | At | Signature | + + + + + + | Na | 140 | 136 - 149 | [facility] | [...] Cl | 112 (H) | 98 - 109 mmol/L | [facility] | | | | | | [facility] | | | | | | MEDICAL | | | | | | CENTER - | | | | | | LABORATORY | | + + + + + + | CO2 | 19 (L) | 24 - 31 mmol/L | [facility] | | | | | | [facility] | | | | | | MEDICAL | | | | | | CENTER - | | | | | | LABORATORY | | + + + + + + | Anion Gap | 9 | 3 - 16 mmol/L | [facility] | | | | | | [facility] | | | | | | MEDICAL | | | | | | CENTER - | | | | | | LABORATORY | | + + + + + + | Glucose | 100 | 70 - 109 mg/dL | [facility] | | | | | | [facility] | | | | | | MEDICAL | | | | | | CENTER - | | | | | | LABORATORY | | + + + + + + | BUN | 12 | 7 - 18 mg/dL | [facility] | | | | | | [facility] | | | | | | MEDICAL | | | | | | CENTER - | | | | | | LABORATORY | | + + + + + + | Creatinine | 0.57 (L) | 0.60 - 1.30 | [facility] | [...] mL/min/1.73m2 | [facility] | | | HUNGARIAN | RATE,ESTIMATED | | MEDICAL | | | | mL/min/1.99p6Ebol than | | CENTER - | | [...] + + + + | Calcium | 8.0 (L) | 8.3 - 10.5 | [facility] | [...] + + | Bilirubin | 0.7 | 0.1 - 1.5 mg/dL | [facility] | | | Total | | | [facility] | | | | | | MEDICAL | | | | | | CENTER - | | | | | | LABORATORY | | + + + + + + | Total | 5.3 (L) | 6.0 - 7.8 g/dL | [facility] | | | Protein | | | [facility] | | | | | | MEDICAL | | | | | | CENTER - | | | | | | LABORATORY | | + + + + + + | AST | 14 | 10 - 42 U/L | [facility] | | | | | | [facility] | | | | | | MEDICAL | | | | | | CENTER - | | | | | | LABORATORY | | + + + + + + | ALT | 18 | 6 - 45 U/L | [facility] | | | | | | [facility] | | | | | | MEDICAL | | | | | | CENTER - | | | | | | LABORATORY | | + + + + + + | Alkaline | 37 (L) | 40 - 110 U/L | [facility] | | | Phosphatase | | | [facility] | | | | | | MEDICAL | | | | | | CENTER - | | | | | | LABORATORY | | + + + + + + | Globulin | 2.3 | 2.1 - 3.8 g/dL | [facility] | | | | | | [facility] | | | | | | MEDICAL | | | | | | CENTER - | | | | | | LABORATORY | | + + + + + + | Albumin/Simona | 1.3 | 0.8 - 2.0 | [facility] | | | bulin Ratio | | | [facility] | | | | | | MEDICAL | | | | | | CENTER - | | | | | | LABORATORY | | + + + + + + | BUN/Creatin | 21.1 [...] + | [facility] | [address] | [place] | [phone] | | [facility] | | [address] | | | - LABORATORY | | | | + + + + + CBC no Differential (05/03/2016 1:45 PM PDT) + +-------+ + + + | Component | Value | Ref Range | Performed | Pathologist | | | | | At | Signature | + +-------+ + + + | WBC | 6.2 | 4.0 - 11.0 K/uL | [facility] | | | | | | [facility] | | | | | | MEDICAL | | | | | | CENTER - | | | | | | LABORATORY | | + +-------+ + + + | RBC | 4.52 | 3.70 - 5.20 | [facility] | | | | | M/uL | [facility] | | | | | | MEDICAL | | | | | | CENTER - | | | | | | LABORATORY | | + +-------+ + + + | Hemoglobin | 13.8 | 11.5 - 16.0 | [facility] | | | | | g/dL | [facility] | | | | | | MEDICAL | | | | | | CENTER - | | | | | | LABORATORY | | + +-------+ + + + | Hematocrit | 41.3 | 34.0 - 47.0 % | [facility] | | | | | | [facility] | | | | | | MEDICAL | | | | | | CENTER - | | | | | | LABORATORY | | + +-------+ + + + | MCV | 91.3 | 83.0 - 101.0 fL | [facility] | | | | | | [facility] | | | | | | MEDICAL | | | | | | CENTER - | | | | | | LABORATORY | | + +-------+ + + + | MCH | 30.5 | 28.0 - 35.0 pg | [facility] | | | | | | [facility] | | | | | | MEDICAL | | | | | | CENTER - | | | | | | LABORATORY | | + +-------+ + + + | MCHC | 33.4 | 32.0 - 36.0 | [facility] | | | | | g/dL | [facility] | | | | | | MEDICAL | | | | | | CENTER - | | | | | | LABORATORY | | + +-------+ + + + | RDW-CV | 13.5 | <15.0 % | [facility] | | | | | | [facility] | | | | | | MEDICAL | | | | | | CENTER - | | | | | | LABORATORY | | + +-------+ + + + | Platelet | 155 | 140 - 440 K/uL | [facility] | | | Count | | | [facility] | | | | | | MEDICAL | | | | | | CENTER - | | | | | | LABORATORY | | + +-------+ + + + | MPV | 8.9 [...] ST[address] | [address] | [place] | [phone] | | [facility] | | [address] | | | - LABORATORY | | | | + + + + + documented in this encounter Visit Diagnoses + + | Diagnosis | + + | Non-intractable vomiting with nausea, vomiting of unspecified type - Primary | + + documented in this encounter Administered Medications + +--------+ +--------+------+------+ | Medication Order | MAR | Action | Dose | Rate | Site | | | Action | Date | | | | + +--------+ +--------+------+------+ | acetaminophen (TYLENOL) tablet | Given | 05/03/20 | 975 mg | | | | 975 mg 975 mg (rounded from | | 16 2:23 | | | | | 1,000 mg), Oral, ONCE, Tue | | PM PDT | | | | | 05/03/16 at 1420, For 1 dose | | | | | | + +--------+ +--------+------+------+ +---+---+ | | | +---+---+ + +-------+ +------+---+---+ | ondansetron (ZOFRAN) injection | Given | 05/03/20 | 8 mg | | | | 8 mg 8 mg, Intravenous, EVERY 6 | | 16 1:46 | | | | | HOURS PRN, Nausea, Vomiting, | | PM PDT | | | | | Starting [facility] 05/03/16 at 1311 | | | | | | + +-------+ +------+---+---+ +---+---+ | | | +---+---+ + +---------+ +--------+-------+---+ | sodium chloride 0.9% (NS) bolus | New Bag | 05/03/20 | 1,000 | 2000 | | | 1,000 mL 1,000 mL, Intravenous, | | 16 1:29 | mLs | mL/hr | | | Administer over 30 Minutes, | | PM PDT | | | | | ONCE, [facility] 05/03/16 at 1315, For 1 | | | | | | | dose | | | | | | + +---------+ +--------+-------+---+ +---+---+ | | | +---+---+ + +---------+ +--------+-------+---+ | sodium chloride 0.9% (NS) bolus | New Bag | 05/03/20 | 1,000 | 2000 | | | 1,000 mL 1,000 mL, Intravenous, | | 16 3:02 | mLs | mL/hr | | | Administer over 30 Minutes, | | PM PDT | | | | | ONCE, 05/03/16 at 1415, For 1 | | | | | | | dose | | | | | | + +---------+ +--------+-------+---+ +---+---+ | | | +---+---+ documented in this encounter"
--- OUTSIDE RECORDS SUMMARY | ~2020-03-13 | XMS | Encounter Summary ---
Demographics + + + | Address | [address] | | | [place] [address] | + + + | Home Phone [...] Team Providers + +------+ + | Care Abrasive Wheel Molder Name | Role | Phone | + [...] | Specialty | Physical | Diagnoses | Sucharda, | [facility] | | | Services | Therapy / | Frozen | Dominguez Acosta, | Pt Op [address] | | | Required | Rehabilitatio | shoulder, | PA-C [address] | [place] | | | | n | left | [address] | [place], | | | | | | [address] | [place] [address] | | | | | | [place], | Phone: | | | | | | [place] [address] | [phone] | | | | | | Phone: | Fax: | | | | | | [phone] | [phone] | | | | | | Fax: | | | | | | | [phone] | | +--------+ + + + + + Reason for Visit + + + | Reason | Comments | + + + | Shoulder Pain | left shoulder onset x several mos | + + + Evaluate & Treat (Routine) +--------+--------+ + + + + | Status | Reason | Specialty | Diagnoses / | Referred By | Referred To | | | | | Procedures | Contact | Contact | +--------+--------+ + + + + | Closed | | Orthopedic | Diagnoses | Oneal, | Geronimo, | | | | Surgery | Left | Nhi Sarabia, | Brock Acosta MD | | | | | shoulder | MD [address] | | | | | pain | [place] | [place], | | | | | | [address] [place] [address] | [place] [address] | | | | | | [place], [place] | Phone: | | | | | | [address] | [phone] | | | | | | Phone: | Fax: | | | | | | [phone] | [phone] | | | | | | Fax: | | | | | | | [phone] | | +--------+--------+ + + + + Encounter Details +--------+---------+ + + + | Date | Type | Department | Care Team | Description | +--------+---------+ + + + | 02/25/ | Office | [facility] | Dominguez Ibarra, | Left shoulder pain | | 2013 | Visit | ORTHOPEDIC SURGERY | MELANY [address] | (Primary Dx); Frozen | | | | [address] | [address] [place] | shoulder, left | | | | [place], [place] | [place] [address] | | | | | [address] | [phone] | | | | | [phone] | | | +--------+---------+ + + + [...] Temperature | 36.7 C (98 F) | 02/25/2014 11:58 AM | | | | | PDT [...] + + + + | Weight | 79.4 kg (175 lb) | 02/25/2014 11:58 AM | | | | | PDT | | + + + + + | Height | 172.7 cm (5' 8") | 02/25/2014 11:58 AM | | | | | PDT | | + + + + + | Body Mass Index | 26.61 | 02/25/2014 11:58 AM | | | | | PDT | | + + + + + documented in this encounter Progress Notes Dominguez Ibarra PA - 02/25/2014 12:09 PM PDTFormatting of this note might be different f rom the original. History of present illness: Ashley is a 29 y.o. female who presents to our clinic today fo r with primary complaints of Left shouler paihn. Her pain has been [resemt fpr abpit 4-5 mon ths. She did move across town n June of 2013. During the move is when her Left shoulder pa in started. There was no sudden onset of pain. There was no problems with the shoulder prior to this. Her shoulder has gotten worse. Pain seems to start at the front of the sounder ne ar the biceps tendon and radiates to the bottom of her scapula. There will also be a mild am ount of radiating pain into the neck. Pain comes and goes. 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 Pain is stabbing, aching, burning around the scapula. She has not taken NSAIDS, But she does take hydrocodone and has been on this for 2-3 months. This does help and she takes 2 a day. She did get a cortisone injection from her PCP which gave her 50% relief for 1 week. It hurts a lot when she tries to sleep. Past Medical History Diagnosis Date Anxiety Depression Past Surgical History Procedure Date section, classic Dilation and curettage of uterus No Known Allergies Current Outpatient Prescriptions on File Prior to Visit Medication Sig Dispense Refill Acetaminophen (TYLENOL EXTRA STRENGTH PO) TABS Take 2 tablets by mouth daily buPROPion (BUDEPRION SR) 150 mg 12 hr tablet Take 150 mg by mouth 2 times daily. divalproex (DEPAKOTE ER) 500 mg 24 hr tablet Take 500 mg by mouth 3 times daily. Ibuprofen (ADVIL PO) CAPS Take 600 mg by mouth daily Family History Problem Relation Age of Onset High blood pressure Mother High blood pressure Father High cholesterol Father Miscarriages / Stillbirths Maternal Grandmother Stroke Maternal Grandfather History Social History Marital Status: Single Spouse Name: N/A Number of Children: N/A Years of Education: N/A Occupational History Not on file. Social History Main Topics Smoking status: Current Every Day Smoker -- 0.5 packs/day Smokeless tobacco: Not on file Alcohol Use: Not on file Drug Use: Not on file Sexually Active: Not on file Other Topics Concern Not on file Social History Narrative No narrative on file Review of Systems Constitutional: Denies fever or chills Eyes: Denies change in visual acuity HENT: Denies nasal congestion or sore throat Respiratory: Denies cough or shortness of breath Cardiovascular: Denies chest pain or edema GI: Denies abdominal pain, nausea, vomiting, bloody stools or diarrhea : Denies dysuria Musculoskeletal: Denies back pain or joint pain except for that mentioned above in HPI. Integument: Denies rash Neurologic: Denies headache, focal weakness or sensory changes Endocrine: Denies polyuria or polydipsia Lymphatic: Denies swollen glands Psychiatric: Denies depression or anxiety Filed Vitals: 02/25/14 1158 Temp: 36.7 C (98 F) PainSc: 7 PainLoc: Shoulder Estimated Body mass index is 26.61 kg/(m^2) as calculated from the following: Height as of this encounter: 5' 8"(1.727 m). Weight as of this encounter: 175 lb(79.379 kg). Physical examination:Patient is alert and oriented and in no acute distress. Inspection reveals: Skin is warm dry and intact with no gross deformity. Palpation reveals: Palpation reveals a similar facial response with grimacing and groaning just about anywhere I touched on her shoulder. Patient is neurovascularly intact to the lef t upper extremity. Range of Motion: Patient has about 90 of flexion both actively and passively. Again duri ng these maneuvers patient exhibits similar facial grimacing. Her right shoulder has full e xternal rotation. Her left shoulder only has about 45-55 of external rotation. Joint Stability: No instability is appreciated with abduction and external rotation. Strength:supination against resistance causes scapular pain. Pronation causes biceps tendon pain. Patient also has pain in the scapula with biceps flexion. X-ray shows: X-ray examination is unremarkable for fractures, lytic lesions, or dislocation s. There is no evidence of any significant arthritis. Assessment: Adhesive capsulitis of left shoulder Plan: I have gone over the pathology of this particular problem as well as the expectations in the typical course of this specific problem. I've offered her a subacromial cortisone i njection which she accepted. This will be followed by an intra-articular cortisone injectio n by Dr. De Leon. Following this, I recommend a course of physical therapy. I have issu ed her a bharath system. If this problem gets worse patient is aware that we may offer a man ipulation under anesthesia. If there any questions I'll be happy to see Ashley on an as-ne eded basis otherwise we will proceed as recommended. The left shoulder is positioned to identify the subacromial space with the C-arm. The skin overlying the subacromial space with was cleansed with Betadine and alcohol. Following thi s, 5 cc of 1% lidocaine were used to anesthetize the soft tissues. I then inserted a 22-gau ge spinal needle into the subacromial space were injected 2 cc of Celestone, 4 cc 1% lidocai ne, and 4 cc of.5% Sensorcaine without difficulty. Patient tolerated the procedure well. I f there are any questions I will be happy see her on an as-needed basis, otherwise she can f ollow up with her primary care Dr. The above note was dictated using [email or web address] voice recognition software. It may have not been p roofread in entirety. Minor errors in grammar may occur. documented in this encounter Plan of Treatment [...] [place] | | | | | | [address] | | | | | | | | +--------+ + + + + | 03/18/ | Office | Physical Medicine | Jovana Dawson | | | 2019 | Visit | and Rehabilitation | MELANY Man [address] | | | | | | [address] | | | | | | [address] [place] | | | | | | [address] | | | | | | | | +--------+ + + + + | 04/01/ | Appointment | Oncology | Deny Mcmanus, | | | 2019 | | | [address] | | | | | | [place] | | | | | | [place] [address] | | | | | | [phone] | | | | | | | | +--------+ + + + + | 04/08/ | Procedure | Physical Medicine | Leonard De Leon | | | 2019 | visit | and Rehabilitation | MD [address] | | | | | | [place] | | | | | | [address] | | | | | | | | +--------+ + + + + | 04/30/ | Office | Cardiology | Shad Saavedra, | | | 2019 | Visit | | MD [address] | | | | | | [place] | | | | | | [place] [address] | | | | | | [phone] | | | | | | | | +--------+ + + + + + + +--------+ + + | Name | Type | Priori | Associated Diagnoses | Order Schedule | | | | ty | | | + + +--------+ + + | Ambulatory referral | Outpatient | Routin | Frozen shoulder, | 1 Occurrences | | to Physical Therapy | Referral | e | left | starting 02/25/2014 | | | | | | until 02/25/2015 | + + +--------+ + + documented as of this encounter Results XR Shoulder Left 2 + Vw (02/25/2014 11:12 AM PDT) + + | Specimen | + + | | + + + + + | Narrative | Performed At | + + + | XR SHOULDER LEFT 2 + VW 02/25/2014 11:12 AM HISTORY: left | MISCELANIOUS | | shoulder pain. COMPARISON: None. FINDINGS: There are no acute | LAB | | osseous abnormalities. The acromioclavicular joint demonstrates no | | | degenerative changes. The glenohumeral joint is intact. There is | | | lateral tilting of the acromion that can predispose to impingement. | | | Bone mineralization is normal. Visualized chest is unremarkable. | | | IMPRESSION - NO ACUTE FINDINGS, NO SIGNIFICANT DEGENERATIVE CHANGES. | | | LATERAL TILTING OF THE ACROMION THAT CAN PREDISPOSE TO | | | IMPINGEMENT. IF CLINICALLY INDICATED, MRI CAN BE CONSIDERED FOR | | | FURTHER EVALUATION OF INTERNAL DERANGEMENT. Dictated and Signed | | | by: Jeffrey Nicholas MD Electronically signed: 02/25/2014 1:20 PM | | + + + + + | Procedure Note | + + | Ruben, Rad Results In - 02/25/2014 1:24 PM PDT XR SHOULDER LEFT 2 + VW 02/25/2014 11:12 | | AMHISTORY: left shoulder pain.COMPARISON: None.FINDINGS:There are no acute osseous | | abnormalities. The acromioclavicular jointdemonstrates no degenerative changes. The | | glenohumeral joint is intact. There islateral tilting of the acromion that can | | predispose to impingement. Bonemineralization is normal. Visualized chest is | | unremarkable.IMPRESSION -NO ACUTE FINDINGS, NO SIGNIFICANT DEGENERATIVE CHANGES.LATERAL | | TILTING OF THE ACROMION THAT CAN PREDISPOSE TO IMPINGEMENT.IF CLINICALLY INDICATED, MRI | | CAN BE CONSIDERED FOR FURTHER EVALUATION OFINTERNAL DERANGEMENT.Dictated and Signed by: | | Jeffrey Nicholas MD Electronically signed: 02/25/2014 1:20 PM | |lateral tilting of the acromion that can predispose to impingement. Bone | |mineralization is normal. Visualized chest is unremarkable. | | | |IMPRESSION - | |NO ACUTE FINDINGS, NO SIGNIFICANT DEGENERATIVE CHANGES. | | | |LATERAL TILTING OF THE ACROMION THAT CAN PREDISPOSE TO IMPINGEMENT. | | | |IF CLINICALLY INDICATED, MRI CAN BE CONSIDERED FOR FURTHER EVALUATION OF | |INTERNAL DERANGEMENT. | | | |Dictated and Signed by: Jeffrey Nicholas MD | | Electronically signed: 02/25/2014 1:20 PM | + + + +---------+ + + | Performing | Address | City[facility] | Phone Number | | Organization | | | | + +---------+ + + | M[facility]OUS [facility] | | | [phone] | + +---------+ + + | MISCELANIOUS LAB | | | [phone] | + +---------+ + + documented in this encounter Visit Diagnoses + + | Diagnosis | + + | Left shoulder pain - Primary Pain in joint, shoulder region | + + | Frozen shoulder, left | + + documented in this encounter
--- OUTSIDE RECORDS SUMMARY | ~2020-03-13 | XMS | Encounter Summary ---
Demographics + + + | Address | [address] | | | [place] [address] | + + + | Home Phone [...] Team Providers + +------+ + | Care Fagoting Machine Operator Name | Role | Phone [...] + + | 01/05/ | Telephone | [facility] | Brian Masterslas Matthias, | Appointment | | 2020 | | [facility] | [address] | | | | | [address] | [place] | | | | | [place] | [address] | | | | | [address] | | | | | | [phone] | | | +--------+ + + + [...] | | | | | [place], [place] | | | | | | [address] | | | | | | | | +--------+ + + + + | 03/18/ | Office | Physical Medicine | Jovana Dawson | | | 2019 | Visit | and Rehabilitation | MELANY Man [address] | | | | | | [address] [facility] | | | | | | [address] [place] | | | | | | [address] | | | | | | | | +--------+ + + + + | 04/01/ | Appointment | Oncology | Deny Mcmanus, | | | 2019 | | | [address] | | | | | | [address] [place], | | | | | | [place] [address] | | | | | | [phone] | | | | | | | | +--------+ + + + + | 04/08/ | Procedure | Physical Medicine | Leonard De Leon | | | 2019 | visit | and Rehabilitation | MD Kiki Win | | | | | | [place] | | | | | | [address] | | | | | | | | +--------+ + + + + | 04/30/ | Office | Cardiology | Shad Saavedra, | | | 2019 | Visit | | MD Alan Cruz | | | | | | [place], | | | | | | [place] [address] | | | | | | [phone] | | | | | | | | +--------+ + + + + documented as of this encounter Visit Diagnoses Not on filedocumented in this encounter"
--- OUTSIDE RECORDS SUMMARY | ~2020-03-13 | XMS | Encounter Summary ---
Demographics + + + | Address | [address] [facility] | | | [place] [address] | + + + | Home Phone [...] Team Providers + +------+ + | Care Keg Filler Name | Role | Phone | + [...] + + | 01/02/ | Telephone | [facility] | Burton Masters Matthias, | ED Follow-up | | 2020 | | MEDICINE [place] | [address] | | | | | [address] | [place] | | | | | [place] | [address] | | | | | [address] | | | | | | [phone] | | | +--------+ + + + [...] | | 2019 | Office | | Joselito, MD [address] | | | | Visit | | [facility] | | | | | | [place] | | | | | | [address] | | | | | | | | +--------+ + + + + | 03/18/ | Office | Physical Medicine | Jovana Dawson | | | 2019 | Visit | and Rehabilitation | MELANY Man [address] | | | | | | [address] [facility] | | | | | | [address] [place] | | | | | | [address] | | | | | | | | +--------+ + + + + | 04/01/ | Appointment | Oncology | Deny Mcmanus, | | 2019 | | | [address] | | | | | | [address] [place], | | | | | | [place] [address] | | | | | | [phone] | | | | | | | | +--------+ + + + + | 04/08/ | Procedure | Physical Medicine | Leonard De Leon | | | 2019 | visit | and Rehabilitation | MD Kiki Win | | | | | | [place] | | | | | | [address] | | | | | | | | +--------+ + + + + | 04/30/ | Office | Cardiology | Shad Saavedra, | | | 2019 | Visit | | MD Alan Cruz | | | | | | [place], | | | | | | [place] [address] | | | | | | [phone] | | | | | | | | +--------+ + + + + documented as of this encounter Visit Diagnoses Not on filedocumented in this encounter"
--- OUTSIDE RECORDS SUMMARY | ~2020-03-13 | XMS | Encounter Summary ---
Demographics + + + | Address | [address] | | | [place] [address] | + + + | Home Phone [...] Team Providers + +------+ + | Care Lye Boiler Name | Role | Phone | + +------+ + | Burton Masters MD | PCP | | + +------+ + Reason for Visit + + + | Reason | Comments | + + + | Follow-up | | + + + Encounter Details +--------+ + + + + | Date | Type | Department | Care Team | Description | +--------+ + + + + | 01/04/ | Telephone | [facility] | Deny Mcmanus, | Follow-up | | 2019 | | MED [facility] | [address] | | | | | [facility] [address] | [place], | | | | | [place] | [place] [address] | | | | | [place] [address] | [phone] | | | | | [phone] | | | +--------+ + + + [...] | | | Visit | | [address] [facility] | | | | | | [place] | | | | | | [address] | | | | | | | | +--------+ + + + + | 03/18/ | Office | Physical Medicine | Jovana Dawson | | | 2019 | Visit | and Rehabilitation | MELANY Man [address] | | | | | | [address] | | | | | | [address] [place] | | | | | | [address] | | | | | | | | +--------+ + + + + | 04/01/ | Appointment | Oncology | Deny Mcmanus, | | 2019 | | | [address] | | | | | | [place] | | | | | | [place] [address] | | | | | | [phone] | | | | | | | | +--------+ + + + + | 04/08/ | Procedure | Physical Medicine | Leonard De Leon | | | 2019 | visit | and Rehabilitation | MD Audelia [address] | | | | | | [place] | | | | | | [address] | | | | | | | | +--------+ + + + + | 04/30/ | Office | Cardiology | Shad Saavedra, | | | 2019 | Visit | | [address] | | | | | | [place], | | | | | | [place] [address] | | | | | | [phone] | | | | | | | | +--------+ + + + + documented as of this encounter Visit Diagnoses Not on filedocumented in this encounter"
--- OUTSIDE RECORDS SUMMARY | ~2020-03-13 | XMS | Encounter Summary ---
Demographics + + + | Address | [address] [facility] | | | [place] [address] | + + + | Home Phone [...] | Author | [facility] | | | and [place] | + [...] Team Providers + +------+ + | Care Machinist 2Nd Shift Name | Role | Phone | + [...] Description | +--------+--------+ + + + | 10/04/ | Refill | [facility] [place] [facility] | Burton Masters, | Medication Refill | | 2018 | | [facility]IC[facility] [place] | [address] | | | | | [address] | [place] | | | | | [place] | [address] | | | | | [address] | | | | | | [phone] | | | +--------+--------+ + + + [...] [place] | | | | | | [address] | | | | | | | | +--------+ + + + + | 03/18/ | Office | Physical Medicine | Jovana Dawson | | | 2019 | Visit | and Rehabilitation | MELANY Man [address] | | | | | | [address] | | | | | | [address] [place] | | | | | | [address] | | | | | | | | +--------+ + + + + | 04/01/ | Appointment | Oncology | Deny Mcmanus, | | 2019 | | | MD [address] | | | | | | [place] | | | | | | [place] [address] | | | | | | [phone] | | | | | | | | +--------+ + + + + | 04/08/ | Procedure | Physical Medicine | Leonard De Leon | | 2019 | visit | and Rehabilitation | T, MD [address] | | | | | | [place] | | | | | | [address] | | | | | | | | +--------+ + + + + | 04/30/ | Office | Cardiology | Shad Saavedra, | | | 2019 | Visit | | MD Alan Cruz | | | | | | [place], | | | | | | [place] [address] | | | | | | [phone] | | | | | | | | +--------+ + + + + documented as of this encounter Visit Diagnoses Not on filedocumented in this encounter"
--- OUTSIDE RECORDS SUMMARY | ~2020-03-13 | XMS | Encounter Summary ---
Demographics + + + | Address | [address] [facility] | | | [place] [address] | + + + | Home Phone | | + + + | Preferred Language | Unknown | + + + | Marital Status | | + + + | Worship Affiliation | Unknown | + + + | Race | Unknown | + + + | Ethnic Group | Unknown | + + + Author + + + | Author | [facility] | | | and [place] | + + + | Organization | [facility] | | | [...] Team Providers + +------+ + | Care Teacher Learning Disabled Name | Role | Phone | + +------+ + | Burton Masters MD | PCP | | + +------+ + Reason for Visit + + + | Reason | Comments | + + + | Alcohol Problem | | + + + Encounter Details +--------+ + + + + | Date | Type | Department | Care Team | Description | +--------+ + + + + | 08/13/ | Telephone | [facility] [place] [facility] | Burton Masters, | Alcohol Problem | | 2019 | | [facility]IC[facility] [place] | [address] | | | | | [address] | [place] | | | | | [place] | [address] | | | | | [address] | | | | | | [phone] | | | +--------+ + + + [...] | | Visit | | [address] [facility] | | | | | | [place] | | | | | | [address] | | | | | | | | +--------+ + + + + | 03/18/ | Office | Physical Medicine | Jovana Dawson | | | 2019 | Visit | and Rehabilitation | MELANY Man [address] | | | | | | [address] [facility] | | | | | | [address] [place] | | | | | | [address] | | | | | | | | +--------+ + + + + | 04/01/ | Appointment | Oncology | Deny Mcmanus, | | | 2019 | | | [address] | | | | | | [address] [place] | | | | | | [place] [address] | | | | | | [phone] | | | | | | | | +--------+ + + + + | 04/08/ | Procedure | Physical Medicine | Leonard De Leon | | | 2019 | visit | and Rehabilitation | MD Kiki Win | | | | | | [place] | | | | | | [address] | | | | | | | | +--------+ + + + + | 04/30/ | Office | Cardiology | Shad Saavedra, | | | 2019 | Visit | | MD Alan Cruz | | | | | | [place] | | | | | | [place] [address] | | | | | | [phone] | | | | | | | | +--------+ + + + + documented as of this encounter Visit Diagnoses Not on filedocumented in this encounter"
--- OUTSIDE RECORDS SUMMARY | ~2020-03-13 | XMS | Encounter Summary ---
Demographics + + + | Address | [address] | | | [place] [address] | + + + | Home Phone [...] Team Providers + +------+ + | Care Daycare Worker Name | Role | Phone | + +------+ + | Burton Masters MD | PCP | | + +------+ + Reason for Visit + + + | Reason | Comments | + + + | Immunizations | | + + + Encounter Details +--------+ + + + + | Date | Type | Department | Care Team | Description | +--------+ + + + + | 03/07/ | Telephone | [facility] | Sonam Burton Matthias, | Immunizations | | 2019 | | [facility] | [address] | | | | | [address] | [place] | | | | | [place] | [address] | | | | | [address] | | | | | | [phone] | | | +--------+ + + + [...] [place] | | | | | | [address] | | | | | | | | +--------+ + + + + | 03/18/ | Office | Physical Medicine | Jovana Dawson | | | 2019 | Visit | and Rehabilitation | MELANY Man [address] | | | | | | [place] | | | | | | [place] | | | | | | [address] | | | | | | | | +--------+ + + + + | 04/01/ | Appointment | Oncology | Deny Mcmanus, | | 2019 | | | MD [address] | | | | | | [place] | | | | | | [place] [address] | | | | | | [phone] | | | | | | | | +--------+ + + + + | 04/08/ | Procedure | Physical Medicine | Leonard De Leon | | 2019 | visit | and Rehabilitation | MD Kiki Win | | | | | | [facility] [place] | | | | | | [address] | | | | | | | | +--------+ + + + + | 04/30/ | Office | Cardiology | Shad Saavedra, | | | 2019 | Visit | | MD Alan Cruz | | | | | | [place] | | | | | | [place] [address] | | | | | | [phone] | | | | | | | | +--------+ + + + + documented as of this encounter Results [facility] Referral (04/10/2019 12:39 PM PDT) + + + + + + | Component | Value | Ref Range | Performed | Pathologist | | | | | At | Signature | + + + + + + | Result | Comment: See | | REFERENCE | | | | Pneumococcal Ab results | | LAB [facility] | | | | | | [facility] | | + + + + + + + + | Specimen | + + | Blood | + + + + + + + | Performing | Address | City/State/Zipcode | Phone Number | | Organization | | | | + + + + + | REFERENCE LAB | [address] | [place], [place] | [phone] | | [facility] | [place] | [address] | | + + + + + documented in this encounter Visit Diagnoses + + | Diagnosis | + + | Immunity status testing - Primary Antibody response examination | + + documented in this encounter"
--- OUTSIDE RECORDS SUMMARY | ~2020-03-13 | XMS | Encounter Summary ---
Demographics + + + | Address | [address] | | | [place] [address] | + + + | Home Phone [...] Team Providers + +------+ + | Care Lending Manager Name | Role | Phone | + +------+ + | Burton Masters MD | PCP | | + +------+ + Reason for Visit + + + | Reason | Comments | + + + | Medication Refill | | + + + | Medication Refill | | + + + | Medication Refill | | + + + Encounter Details +--------+--------+ + + + | Date | Type | Department | Care Team | Description | +--------+--------+ + + + | 05/28/ | Refill | [facility] [place] [facility] | Burton Masters, | Medication Refill; | | 2018 | | MEDIC[facility] [place] | [address] | Medication Refill; | | | | [address] | [place] | Medication Refill | | | | [place] | [address] | | | | | [address] | | | | | | [phone] | | | +--------+--------+ + + + [...] [place] | | | | | | [id number] | | | | | | | | +--------+ + + + + | 03/18/ | Office | Physical Medicine | Jovana Dawson | | | 2020 | Visit | and Rehabilitation | MELANY Man [address] | | | | | | [address] | | | | | | [address] [place] | | | | | | [address] | | | | | | | | +--------+ + + + + | 04/01/ | Appointment | Oncology | Deny Mcmanus, | | | 2019 | | | [address] | | | | | | [facility], | | | | | | [place] [address] | | | | | | [phone] | | | | | | | | +--------+ + + + + | 04/08/ | Procedure | Physical Medicine | Leonard De Leon | | 2019 | visit | and Rehabilitation | MD Audelia [address] | | | | | | [facility] [place] | | | | | | [address] | | | | | | | | +--------+ + + + + | 04/30/ | Office | Cardiology | Shad Saavedra | | | 2019 | Visit | | [address] | | | | | | [place], | | | | | | [place] [address] | | | | | | [phone] | | | | | | | | +--------+ + + + + documented as of this encounter Visit Diagnoses Not on filedocumented in this encounter"
--- OUTSIDE RECORDS SUMMARY | ~2020-03-13 | XMS | Encounter Summary ---
Demographics + + + | Address | [address] | | | [place] [address] | + + + | Home Phone [...] | [facility] | | | and [place] | + [...] Team Providers + +------+ + | Care Curtain Hemmer Automatic Name | Role | Phone | + [...] | | Services | Medicine and | Chronic | Burton Rizzo, | Leonard Win MD | | | Required | Rehabilitatio | bilateral | MD [address] | [address] | | | | n | low back | [address] | [address] [place] | | | | | pain without | [place], | [place], [place] | | | | | sciatica | [place] [address] | [address] Phone: | | | | | | Phone: | [phone] | | | | | | [phone] | Fax: | | | | | | Fax: | [phone] | | | | | | [phone] | | +--------+ + + + + + Reason for Visit + + + | Reason | Comments | + + + | Annual Exam | | + + + Encounter Details +--------+---------+ + + + | Date | Type | Department | Care Team | Description | +--------+---------+ + + + | 02/05/ | Office | [facility] | Burton Masters, | Routine general | | 2018 | Visit | [facility] | [address] | medical examination | | | | [address] | [place] | at a health care | | | | [place] | [address] | facility (Primary | | | | [address] | | Dx); Palpitations; | | | | [phone] | | Chronic bilateral | | | | | | low back pain | | | | | | without sciatica | +--------+---------+ + + + Social History [...] + + + | Blood Pressure | 120/88 | 02/05/2018 9:57 AM | | | | | PDT | | + + + + + | Pulse | 72 | 02/05/2018 9:57 AM | | | | | PDT | | + + + + + | Temperature | 36.3 C (97.4 F) | 02/05/2018 9:57 AM | | | | | PDT | | + + + + + | Respiratory Rate | - | - | | + + + + + | Oxygen Saturation | 99% | 02/05/2018 9:57 AM | | | | | PDT | | + + + + + | Inhaled Oxygen | - | - | | | Concentration | | | | + + + + + | Weight | 99 kg (218 lb 4.1 | 02/05/2018 9:57 AM | | | | oz) | PDT | | + + + + + | Height | - | - | | + + + + + | Body Mass Index | 33.19 | 01/16/2018 3:06 PM | | | | | PDT | | + + + + + documented in this encounter Progress Notes Burton Masters MD - 02/05/2018 9:45 AM PDTFormatting of this note might be different f rom the original. Subjective: Patient ID: Ashley Webb is a 33 y.o. female. Back Pain This is a recurrent problem. The current episode started more than 1 year ago. The problem occurs constantly. The problem is unchanged. The pain is present in the lumbar spine. The qu ality of the pain is described as aching. The pain does not radiate. The pain is at a severi ty of 7/10. Pertinent negatives include no bladder incontinence, bowel incontinence, dysuria or fever. She has tried analgesics for the symptoms. The treatment provided mild relief. Mental Health Problem Primary symptoms comment: post depression symptoms. . She does not admit to suicidal ideas. Heart Problem This is a new (palpitations, skipped beats sudden chest pain that is bothersome. ) problem . The current episode started more than 1 month ago. The problem occurs 2 to 4 times per day . The problem has been unchanged. Pertinent negatives include no fever. Nothing aggravates t he symptoms. She has tried nothing for the symptoms. Past Medical History: Diagnosis Date Abdominal pain [...] 3 Years of education: 15 Occupational History [employer] Social History Main Topics Smoking status: [...] Negative. Respiratory: Negative. Cardiovascular: Negative. Gastrointestinal: Negative. Negative for bowel incontinence. Genitourinary: Negative. Negative for bladder incontinence and dysuria. Musculoskeletal: Positive for back pain. Skin: Negative. Neurological: Negative. Endo/Heme/Allergies: Negative. Psychiatric/Behavioral: Negative. . Objective: BP 120/88 | Pulse 72 | Temp 36.3 C (97.4 F) (Temporal) | Wt 99 kg (218 lb 4.1 oz) | LMP 05/12/2017 | SpO2 99% | ? No | BMI 33.19 kg/m Physical Exam Constitutional: She is well-developed, [...] not diaphoretic. Psychiatric: Affect normal. Assessment/Plan: 1. Routine general medical examination at a health care facility CBC w/ Auto Differential Comprehensive Metabolic Panel Lipid Panel TSH 2. paltipitations. Holter monitor. 3. Back pain Orders Placed This Encounter Procedures * [facility] [place] Phys[facility] - AMB Referral Referral Priority: Routine Referral Type: Evaluate & Treat Referral Reason: Specialty Services Required Requested Specialty: Physical Medicine and Rehabilitation Number of Visits Requested: 1 4. Depression: increase wellbutrin Electronically signed by Burton Masters MD at 018 11:03 AM PDTdocumented in this encounter Plan of Treatment +--------+ [...] [place] | | | | | | [address] | | | | | | | | +--------+ + + + + | 03/18/ | Office | Physical Medicine | Jovana Dawson | | | 2019 | Visit | and Rehabilitation | MELANY Man [address] | | | | | | [address] [facility] | | | | | | [address] [place] | | | | | | [address] | | | | | | | | +--------+ + + + + | 04/01/ | Appointment | Oncology | Deny Mcmanus, | | 2019 | | | [address] | | | | | | [address] [place], | | | | | | [place] [address] | | | | | | [phone] | | | | | | | | +--------+ + + + + | 04/08/ | Procedure | Physical Medicine | Leonard De Leon | | | 2019 | visit | and Rehabilitation | MD Kiki Win | | | | | | [place], [place] | | | | | | [address] | | | | | | | | +--------+ + + + + | 04/30/ | Office | Cardiology | Shad Saavedra, | | | 2019 | Visit | | MD [address] | | | | | | [place], | | | | | | [place] [address] | | | | | | [phone] | | | | | | | | +--------+ + + + + + + +--------+ + + | Name | Type | Priori | Associated Diagnoses | Order Schedule | | | | ty | | | + + +--------+ + + | Holter Monitor - | Cardiac | Routin | Palpitations | Expected: | | Hookup | Non-Imaging | e | | 02/05/2018, Expires: | | | | | | 02/05/2019 | + + +--------+ + + | Holter Monitor - 48 | Cardiac | Routin | Palpitations | Expected: | | HR | Non-Imaging | e | | 02/05/2018, Expires: | | | | | | 02/05/2019 | + + +--------+ + + | TSH | Lab | Routin | Routine general | Expected: | | | | e | medical examination | 02/05/2018, Expires: | | | | | at a health care | 02/05/2019 | | | | | facility | | + + +--------+ + + | Lipid Panel | Lab | Routin | Routine general | Expected: | | | | e | medical examination | 02/05/2018, Expires: | | | | | at a health care | 02/05/2019 | | | | | facility | | + + +--------+ + + | CBC w/ Auto | Lab | Routin | Routine general | Expected: | | Differential | | e | medical examination | 02/05/2018, Expires: | | | | | at a health care | 02/05/2019 | | | | | facility | | + + +--------+ + + + + +--------+ + + | Name | Type | Priori | Associated Diagnoses | Order Schedule | | | | ty | | | + + +--------+ + + | * [facility] [place] | Outpatient | Routin | Chronic bilateral | Ordered: 02/05/2018 | | Physiatry - AMB | Referral | e | low back pain | | | Referral | | | without sciatica | | + + +--------+ + + documented as of this encounter Visit Diagnoses + + | Diagnosis | + + | Routine general medical examination at a health care facility - Primary | + + | Palpitations | + + | Chronic bilateral low back pain without sciatica | + + documented in this encounter"
--- OUTSIDE RECORDS SUMMARY | ~2020-03-13 | XMS | Encounter Summary ---
Demographics + + + | Address | [address] | | | [place] [address] | + + + | Home Phone [...] Team Providers + +------+ + | Care Work Car Operator Name | Role | Phone | [...] + + | 01/04/ | Telephone | [facility] | Deny Mcmanus, | Other | | 2019 | | [facility] | [address] | | | | | [facility] CLIN[facility] [address] [place], | | | | | [address] [place] | [place] [address] | | | | | [place] [address] | [phone] | | | | | [phone] | | | +--------+ + + + [...] [place] | | | | | | [address] | | | | | | | | +--------+ + + + + | 03/18/ | Office | Physical Medicine | Jovana Dawson | | | 2019 | Visit | and Rehabilitation | MELANY Man [address] | | | | | | [address] | | | | | | [address] [place] | | | | | | [address] | | | | | | | | +--------+ + + + + | 04/01/ | Appointment | Oncology | Deny Mcmanus, | | | 2019 | | | [address] | | | | | | [address] [place] | | | | | | [place] [address] | | | | | | [phone] | | | | | | | | +--------+ + + + + | 04/08/ | Procedure | Physical Medicine | Leonard De Leon | | | 2019 | visit | and Rehabilitation | MD Audelia [address] | | | | | | [place] | | | | | | [address] | | | | | | | | +--------+ + + + + | 04/30/ | Office | Cardiology | Shad Saavedra, | | | 2019 | Visit | | MD [address] | | | | | | [place], | | | | | | [place] [address] | | | | | | [phone] | | | | | | | | +--------+ + + + + documented as of this encounter Visit Diagnoses Not on filedocumented in this encounter"
--- OUTSIDE RECORDS SUMMARY | ~2020-03-13 | XMS | Encounter Summary ---
Demographics + + + | Address | [address] | | | [place] [address] | + + + | Home Phone [...] Team Providers + +------+ + | Care Commissions Coordinator Name | Role | Phone | + +------+ + | Burton Masters MD | PCP | | + +------+ + Reason for Visit + + + | Reason | Comments | + + + | Follow-up | | + + + | Depression | | + + + Encounter Details +--------+---------+ + + + | Date | Type | Department | Care Team | Description | +--------+---------+ + + + | 03/08/ | Office | [facility] | Burton Masters, | Moderate episode of | | 2019 | Visit | [facility] [place] | [address] | recurrent major | | | | [address] | [place] | depressive disorder | | | | [place], [place] | [address] | ([facility]) (Primary Dx); | | | | [address] | | Labile mood | | | | [phone] | | | +--------+---------+ + + + [...] + + + | Blood Pressure | 118/92 | 03/08/2019 9:31 AM | | | | | PDT | | + + + + + | Pulse | 66 | 03/08/2019 9:31 AM | | | | | PDT | | + + + + + | Temperature | 37.1 C (98.7 F) | 03/08/2019 9:31 AM | | | | | PDT | | + + + + + | Respiratory Rate | 18 | 03/08/2019 9:31 AM | | | | | PDT | | + + + + + | Oxygen Saturation | 100% | 03/08/2019 9:31 AM | | | | | PDT | | + + + + + | Inhaled Oxygen | - | - | | | Concentration | | | | + + + + + | Weight | 79.2 kg (174 lb 9.7 | 03/08/2019 9:31 AM | | | | oz) | PDT | | + + + + + | Height | - | - | | + + + + + | Body Mass Index | 26.55 | 03/05/2019 6:24 PM | | | | | PDT | | + + + + + documented in this encounter Progress Notes Burton Masters MD - 03/08/2019 9:30 AM PDTFormatting of this note might be different f rom the original. Subjective: Patient ID: Ashley Webb is a 34 y.o. female. Chief Complaint Patient presents with Follow-up Abdominal Pain Depression Mental Health Problem The primary symptoms include dysphoric mood. Additional symptoms of the illness include anhedonia, agitation and flight of ideas. Additi onal symptoms of the illness do not include euphoric mood, increased goal-directed activity or inflated self-esteem. Heart Problem This is a recurrent (svt) problem. The current episode started in the past 7 days. The prob ariella has been resolved. 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 Neurological: Negative. Endo/Heme/Allergies: Negative. Psychiatric/Behavioral: Positive for agitation and dysphoric mood. The patient is nervous/a nxious. . Objective: BP (!) 118/92 | Pulse 66 | Temp 37.1 C (98.7 F) (Temporal) | Resp 18 | Wt 79.2 kg ( 174 lb 9.7 oz) | SpO2 100% | ? No | BMI 26.55 kg/m Physical Exam Constitutional: She is well-developed, [...] is dry. She is not diaphoretic. Psychiatric: Her mood appears anxious. Her affect is labile. She expresses no suicidal plan s. Assessment/Plan: 1. Moderate episode of recurrent major depressive disorder (HCC) 2. Labile mood 3. SVT No signs at this point. Possible EP cardiology. Seeing dr colvin next week. Decrease wellbutrin as patient quite activated, irritable and add lamictal and temporary in crease of alprazolam. Requested Prescriptions Signed Prescriptions Disp Refills lamoTRIgine (LAMICTAL) 25 mg tablet 60 tablet 0 Sig: Take 1 tablet by mouth Daily. ondansetron (ZOFRAN) 8 MG tablet 30 tablet 2 Sig: Take 1 tablet by mouth every 12 hours. New Prescriptions LAMOTRIGINE (LAMICTAL) 25 MG TABLET Take 1 tablet by mouth Daily. documented in this encounter Plan of Treatment +--------+ + + + + | Date | Type | Specialty | Care Team | Description | +--------+ + + + + | 03/17/ | Virtual | Neurosurgery | Zuhair Flores | | | 2019 | Office | | MD [address] | | | | Visit | | [address] [place] [address] | | | | | | [place] | | | | | | [address] | | | | | | | | +--------+ + + + + | 03/18/ | Office | Physical Medicine | Jovana Dawson | | | 2019 | Visit | and Rehabilitation | [address] | | | | | | [facility] | | | | | | [address] [place] | | | | | | [address] | | | | | | | | +--------+ + + + + | 04/01/ | Appointment | Oncology | Deny Mcmanus, | | | 2019 | | | [address] | | | | | | [place], | | | | | | [place] [address] | | | | | | [phone] | | | | | | | | +--------+ + + + + | 04/08/ | Procedure | Physical Medicine | Leonard De Leon | | | 2019 | visit | and Rehabilitation | T, [address] | | | | | | [place] | | | | | | [address] | | | | | | | | +--------+ + + + + | 04/30/ | Office | Cardiology | Shad Saavedra, | | | 2019 | Visit | | [address] | | | | | | [place] | | | | | | [place] [address] | | | | | | [phone] | | | | | | | | +--------+ + + + + documented as of this encounter Visit Diagnoses + + | Diagnosis | + + | Moderate episode of recurrent major depressive disorder (HCC) - Primary | + + | Labile mood | + + documented in this encounter"
--- OUTSIDE RECORDS SUMMARY | ~2020-03-13 | XMS | Encounter Summary ---
Demographics + + + | Address | [address] | | | [place] [address] | + + + | Home Phone [...] Team Providers + +------+ + | Care Fence Installer Helper Name | Role | Phone | + [...] + + | 06/28/ | Telephone | [facility] | Deny Mcmanus, | Patient Concerns | | 2019 | | [facility] | [address] | | | | | [facility]Y CLINIC [address] [place], | | | | | [place] | [place] [address] | | | | | [place] [address] | [phone] | | | | | [phone] | | | +--------+ + + + [...] [place] | | | | | | [address] | | | | | | | | +--------+ + + + + | 03/18/ | Office | Physical Medicine | Jovana Dawson | | | 2019 | Visit | and Rehabilitation | [address] | | | | | | [address] [facility] | | | | | | [address] [place] | | | | | | [address] | | | | | | | | +--------+ + + + + | 04/01/ | Appointment | Oncology | Deny Mcmanus, | | | 2019 | | | MD [address] | | | | | | [place], | | | | | | [place] [address] | | | | | | [phone] | | | | | | | | +--------+ + + + + | 04/08/ | Procedure | Physical Medicine | Leonard De Leon | | | 2019 | visit | and Rehabilitation | MD Audelia [address] | | | | | | [place], [place] | | | | | | [address] | | | | | | | | +--------+ + + + + | 04/30/ | Office | Cardiology | Shad Saavedra, | | | 2019 | Visit | | [address] | | | | | | [facility], | | | | | | [place] [address] | | | | | | [phone] | | | | | | | | +--------+ + + + + documented as of this encounter Results Urinalysis with Microscopic with [...] - 1.030 | [facility] | | | [place], | | | [facility] | | [...] [facility]. | [address] | [place] | [phone] | | [facility] | | [address] | | | - LABORATORY | | | | + + + + + documented in this encounter Visit Diagnoses + + | Diagnosis | + + | Dysuria - Primary | + + documented in this encounter"
--- OUTSIDE RECORDS SUMMARY | ~2020-03-13 | XMS | Encounter Summary ---
Demographics + + + | Address | [address] | | | [place] [address] | + + + | Home Phone [...] Team Providers + +------+ + | Care Geological Specialist Name | Role | Phone | + +------+ + | Burton Masters MD | PCP | | + +------+ + Encounter Details +--------+ + + + + | Date | Type | Department | Care Team | Description | +--------+ + + + + | 04/10/ | Hospital | [facility] | Deny Mcmanus, | Immunity status | | 2019 | Encounter | MED [facility] | MD [address] | testing; Chronic | | | | ONCOLOGY CLINIC [address] | [place], | myeloid leukemia, | | | | [place] [place] | [place] [address] | BCR/ABL-positive, | | | | [place] [address] | [phone] | not having achieved | | | | [phone] | | remission (HCC) | +--------+ + + + + [...] [place] | | | | | | [address] | | | | | | | | +--------+ + + + + | 03/18/ | Office | Physical Medicine | Jvoana Dawson | | | 2019 | Visit | and Rehabilitation | [address] | | | | | | [address] | | | | | | [place] | | | | | | [address] | | | | | | | | +--------+ + + + + | 04/01/ | Appointment | Oncology | Deny Mcmanus, | | 2019 | | | [address] | | | | | | [place] | | | | | | [place] [address] | | | | | | [phone] | | | | | | | | +--------+ + + + + | 04/08/ | Procedure | Physical Medicine | Leonard De Leon | | | 2019 | visit | and Rehabilitation | MD Audelia [address] | | | | | | [place] | | | | | | [address] | | | | | | | | +--------+ + + + + | 04/30/ Office | Cardiology | Shad Saavedra, | | | 2019 | Visit | | [address] | | | | | | [place], | | | | | | [place] [address] | | | | | | [phone] | | | | | | | | +--------+ + + + + documented as of this encounter Procedures + +--------+ + + + | Procedure Name | Priori | Date/Time | Associated Diagnosis | Comments | | | ty | | | | + +--------+ + + + | PNEUMOCOCCAL AB, IGG | Routin | 04/10/2019 | Immunity status | Results for this | | | e | 12:39 PM | testing | procedure are in the | | | | PDT | | results section. | + +--------+ + + + | [facility] | Routin | 04/10/2019 | Immunity status | Results for this | | | e | 12:39 PM | testing | procedure are in the | | | | PDT | | results section. | + +--------+ + + + | BCR-ABL1 FOR CML AND | Routin | 04/10/2019 | Chronic myeloid | Results for this | | ALL | e | 10:23 AM | leukemia, | procedure are in the | | | | PDT | BCR/ABL-positive, | results section. | | | | | not having achieved | | | | | | remission (HCC) | | + +--------+ + + + | CBC WITH | STAT | 04/10/2019 | Chronic myeloid | Results for this | | DIFFERENTIAL | | 10:23 AM | leukemia, | procedure are in the | | | | PDT | BCR/ABL-positive, | results section. | | | | | not having achieved | | | | | | remission (HCC) | | + +--------+ + + + | COMPREHENSIVE | STAT | 04/10/2019 | Chronic myeloid | Results for this | | METABOLIC PANEL | | 10:23 AM | leukemia, | procedure are in the | | | | PDT | BCR/ABL-positive, | results section. | | | | | not having achieved | | | | | | remission (HCC) | | + +--------+ + + + documented in this encounter Results Pneumococcal Ab, IgG (04/10/2019 12:39 PM PDT) + + + + + + | Component | Value | Ref Range | Performed | Pathologist | | | | | At | Signature | + + + + + + | Pneumococca | 2.8 | >1.3 ug/mL | REFERENCE | | | l antibody | | | LAB [facility] | | | Type 1 | | | - BKR | | + + + + + + | Pneumococca | 0.8 (L) | >1.3 ug/mL | REFERENCE | | | l antibody | | | LAB [facility] | | | Type 3 | | | - BKR | | + + + + + + | Pneumococca | 7.0 | >1.3 ug/mL | REFERENCE | | | l antibody | | | LAB [facility] | | | Type 4 | | | - BKR | | + + + + + + | Pneumococca | 11.8 | >1.3 ug/mL | REFERENCE | | | l antibody | | | LAB [facility] | | | Type 8 | | | - BKR | | + + + + + + | Pneumococca | 0.9 (L) | >1.3 ug/mL | REFERENCE | | | l antibody | | | LAB [facility] | | | Type 9N | | | - BKR | | + + + + + + | Pneumococca | 0.1 (L) | >1.3 ug/mL | REFERENCE | | | l antibody | | | LAB [facility] | | | Type 12F | | | - BKR | | + + + + + + | Pneumococca | 5.1 | >1.3 ug/mL | REFERENCE | | | l antibody | | | LAB [facility] | | | Type 14 | | | - BKR | | + + + + + + | Pneumococca | 2.2 | >1.3 ug/mL | REFERENCE | | | l antibody | | | LAB [facility] | | | Type 19F | | | - BKR | | + + + + + + | Pneumococca | 0.6 (L) | >1.3 ug/mL | REFERENCE | | | l Antibody | | | LAB [facility] | | | Type 23F | | | - BKR | | + + + + + + | Pneumococca | 0.4 (L) | >1.3 ug/mL | REFERENCE | | | l antibody | | | LAB [facility] | | | Type 6B | | | - BKR | | + + + + + + | Pneumococca | 3.1 | >1.3 ug/mL | REFERENCE | | | l antibody | | | LAB [facility] | | | Type 7F | | | - BKR | | + + + + + + | Pneumococca | 3.5 | >1.3 ug/mL | REFERENCE | | | l antibody | | | LAB [facility] | | | Type 18 | | | - BKR | | + + + + + + | Pneumococca | 3.1 | >1.3 ug/mL | REFERENCE | | | l antibody | | | LAB [facility] | | | Type 19A | | | - BKR | | + + + + + + | Pneumococca | 0.9 (L)Comment: *This | >1.3 ug/mL | REFERENCE | | | l antibody | test was developed and | | LAB [facility] | | | Type 9V | its | | - BKR | | | | performancecharacteristi | | | | | | cs determined by [facility] | | | | | | [employer]. It has | | | | | | notbeen cleared or | | | | | | approved by the [place] | | | | | | Food and | | | | | | DrugAdministration. | | | | + + + + + + + + | Specimen | + + | Blood | + + + + + | Narrative | Performed At | + + + | Performed at: 01 - [email or web address] [address], | REFERENCE LAB | | [place] [id number] Administrative Project Coordinator: Deyanira Bush PhD, | [facility] | | Phone: [phone] | | + + + + + + + + | Performing | Address | City/State/Zipcode | Phone Number | | Organization | | | | + + + + + | REFERENCE LAB | [address] | [place], [place] | [phone] | | [facility] | [facility] | [address] | | + + + + + [facility] Referral (04/10/2019 12:39 PM PDT) + [...] + + + | REFERENCE LAB | [address] | [place], [place] | [phone] | | [facility] | [place] | [address] | | + + + + + [...] | 0.76 | 0.55 - 1.02 | [facility] | | | | | mg/dL | [facility] | | | | | | MEDICAL | | | | | | CENTER - | | | | | | LABORATORY | | + + + + + + | eGFR if not | >60Comment: GLOMERULAR | >=60 | [facility] | | | | FILTRATION | mL/min/1.73m2 | [facility] | | | [facility] | RATE,ESTIMATED | | MEDICAL | | | | mL/min/1.61s0Oasl than | | CENTER - | | [...] 4.3 | 3.2 - 4.8 g/dL | [facility] | | | | | [...] | | | | | | [facility] | | | | | | MEDICAL [...] [address] | [place] | [phone] | | [facility] | | [address] | | | - LABORATORY | | | | + + + + + CBC with Differential (04/10/2019 10:23 AM PDT) + + + + + + | Component | Value | Ref Range | Performed | Pathologist | | | | | At | Signature | + + + + + + | WBC | 5.2 | 4.0 - 11.0 K/uL | [facility] [...] | patients, use the | | [facility] | | | s | special reference ranges | | MEDICAL | | | | listed below. | | CENTER - | | | | | | LABORATORY | | + + + + + + | Absolute | 2.69 | 1.80 - 8.50 | [facility] | | | Neutrophils | | K/uL | [facility] | [...] | | | | | WBCs | [facility] | | | | [...] ranges: Trim. Absolute (K/uL) Percentage (%) | [facility] | | 1st 0.003-0.091 K/uL 0.0-0.9% 2nd 0.007-0.247 K/uL [facility] | | 0.1-2.0% 3rd 0.018-0.456 K/uL 0.1-2.0% [...] [address] | [place] | [phone] | | [facility] | | [address] | | | - LABORATORY | | | | + + + + + BCR-ABL1 for CML and All (04/10/2019 10:23 [...] [facility] | | | | | | [place] [facility] | | | | | | | | | | | | Biology and Pathology | | | | | | | | | | | | [facility], | | | | | | [place] [...] e13a2 | | | | | | ([id number]) and | | | | | | [...] | | | | | e14a2 and [id number] | | | | | | transcripts. [...] 116: | | | | | | m310-627. 3. NCCN | | | | | [...] + + | Performed at: 01 - [facility] [address] , | REFERENCE LAB | | [place], [place] [id number] Administrative Project Coordinator: Miguelina Lorenzo MD, Phone: | [facility] | | [phone] Performed at: - [facility] [address] | | | [place], [place] [id number] Administrative Project Coordinator: Miguelina Lorenzo MD, | | | Phone: [phone] | | + + + + + + + + | Performing | Address | City/State/Zipcode | Phone Number | | Organization | | | | + + + + + | REFERENCE LAB | [address] | [place], [place] | [phone] | | [facility] | [facility] | [address] | | + + + + + documented in this encounter Visit Diagnoses + + | Diagnosis | + + | Immunity status testing Antibody response examination | + + | Chronic myeloid leukemia, BCR/ABL-positive, not having achieved remission (HCC) | | Chronic myeloid leukemia, without mention of having achieved remission | + + documented in this encounter"
--- OUTSIDE RECORDS SUMMARY | ~2020-03-13 | XMS | Encounter Summary ---
Demographics + + + | Address | [address] | | | [place] [address] | + + + | Home Phone [...] Team Providers + +------+ + | Care Oyster Cultivator Name | Role | Phone | + +------+ + | Burton Matsers MD | PCP | | + +------+ + Reason for Visit + + + | Reason | Comments | + + + | Medication Question | xanax | + + + | Medication Refill | | + + + Encounter Details +--------+--------+ + + + | Date | Type | Department | Care Team | Description | +--------+--------+ + + + | 04/05/ | Refill | [facility] [place] [facility] | Burton Masters, | Medication Question | | 2019 | | [facility] | [address] | (xanax); Medication | | | | [address] | [place] | Refill | | | | [place] | [address] | | | | | [address] | | | | | | [phone] | | | +--------+--------+ + + + [...] [place] | | | | | | [id number] | | | | | | | [...] [place] | | | | | | [address] | | | | | | | | +--------+ + + + + | 04/01/ | Appointment | Oncology | Deny Mcmanus, | | | 2019 | | | [address] | | | | | | [place], | | | | | | [place] [address] | | | | | | [phone] | | | | | | | | +--------+ + + + + | 04/08/ | Procedure | Physical Medicine | Leonard De Leon | | | 2019 | visit | and Rehabilitation | T, [address] | | | | | | [place] | | | | | | [address] | | | | | | | | +--------+ + + + + | 04/30/ | Office | Cardiology | Shad Saavedra, | | 2019 | Visit | | [address] | | | | | | [place], | | | | | | [place] [address] | | | | | | [phone] | | | | | | | | +--------+ + + + + documented as of this encounter Visit Diagnoses Not on filedocumented in this encounter"
--- OUTSIDE RECORDS SUMMARY | ~2020-03-13 | XMS | Encounter Summary ---
Demographics + + + | Address | [address] | | | [place] [address] | + + + | Home Phone [...] Team Providers + +------+ + | Care Classer Name | Role | Phone | + +------+ + | Burton Masters MD | PCP | | + +------+ + Reason for Visit + + + | Reason | Comments | + + + | Disability Form | PRISON DISABILITY | + + + Encounter Details +--------+ + + + + | Date | Type | Department | Care Team | Description | +--------+ + + + + | 09/26/ | Telephone | [facility] [place] [facility] | Burton Masters Matthias, | Disability Form | | 2019 | | [facility] | [address] | (REDRAWER | | | | [address] | [place] | DISABILITY) | | | | [place] | [address] | | | | | [address] | | | | | | [phone] | | | +--------+ + + + [...] [place] | | | | | | [address] | | | | | | | | +--------+ + + + + | 03/18/ | Office | Physical Medicine | Jovana Dawson | | | 2019 | Visit | and Rehabilitation | [address] | | | | | | [address] [facility] | | | | | | [address] [place] | | | | | | [address] | | | | | | | | +--------+ + + + + | 04/01/ | Appointment | Oncology | Deny Mcmanus, | | | 2019 | | | [address] | | | | | | [place] | | | | | | [place] [address] | | | | | | [phone] | | | | | | | | +--------+ + + + + | 04/08/ | Procedure | Physical Medicine | Leonard De Leon | | | 2019 | visit | and Rehabilitation | MD [address] | | | | | | [place] | | | | | | [address] | | | | | | | | +--------+ + + + + | 04/30/ | Office | Cardiology | Shad Saavedra, | | | 2019 | Visit | | MD [address] | | | | | | [place] | | | | | | [place] [address] | | | | | | [phone] | | | | | | | | +--------+ + + + + documented as of this encounter Visit Diagnoses Not on filedocumented in this encounter"
--- OUTSIDE RECORDS SUMMARY | ~2020-03-13 | XMS | Encounter Summary ---
Demographics + + + | Address | [address] | | | [place] [address] | + + + | Home Phone | | + + + | Preferred Language | Unknown | + + + | Marital Status | Single | + + + | Anabaptism Affiliation | NON | + + + | Race | White | + + + | Ethnic Group | Not or | + + + Author + + + | Author | [facility] | + + + | Organization | [facility] | + + + | Address [...] Team Providers + +------+ + | Care Skein Bleacher Name | Role | Phone | + +------+ + | Burton Masters MD | PCP | | + +------+ + Encounter Details +--------+--------+ + + + | Date | Type | Department | Care Team | Description | +--------+--------+ + + + | 01/01/ | Intake | Transfer Center | | N/A | | 2019 | | [address] | | | | | | [place], | | | | | | [place] [address] | | | +--------+--------+ + + + [...] | 2020 | Visit | Malignancy | MD [address] | | | | | | [place], [place] | | | | | | [address] | | | | | | [phone] | | | | | | | | +--------+---------+ + + + documented as of this encounter Visit Diagnoses Not on filedocumented in this encounter"
--- OUTSIDE RECORDS SUMMARY | ~2020-03-13 | XMS | Encounter Summary ---
Demographics + + + | Address | [address] | | | [place] [address] | + + + | Home Phone | | + + + | Preferred Language | Unknown | + + + | Marital Status | | + + + | Gnosticism Affiliation | Unknown | + + + | Race | Unknown | + + + | Ethnic Group | Unknown | + + + Author + + + | Author | [facility] | | | and [place] | + + + | Organization | [facility] | | | and [...] Team Providers + +------+ + | Care Moth Proofer Name | Role | Phone | + +------+ + | Burton Masters MD | PCP | | + +------+ + Encounter Details +--------+ + + + + | Date | Type | Department | Care Team | Description | +--------+ + + + + | 03/03/ | Abstract | [facility] [place] | Burton Swift | | | 2017 | | NEUROSURGERY [address] | [address] | | | | | [address] [facility] [address] | [address] | | | | | [place] | [place] [address] | | | | | [address] | [phone] | | | | | [phone] | | | +--------+ + + + [...] | | | Visit | | [address] [place] [address] | | | | | | [place] | | | | | | [address] | | | | | | | | +--------+ + + + + | 03/18/ | Office | Physical Medicine | Jovana Dawson | | | 2019 | Visit | and Rehabilitation | [address] | | | | | | [address] | | | | | | [place] | | | | | | [address] | | | | | | | | +--------+ + + + + | 04/01/ | Appointment | Oncology | Deny Mcmanus, | | | 2019 | | | [address] | | | | | | [place] | | | | | | [place] [address] | | | | | | [phone] | | | | | | | | +--------+ + + + + | 04/08/ | Procedure | Physical Medicine | Leonard De Leon | | | 2019 | visit | and Rehabilitation | MD Audelia [address] | | | | | | [place] | | | | | | [address] | | | | | | | | +--------+ + + + + | 04/30/ | Office | Cardiology | NnamdicassyejShad, | | | 2019 | Visit | | MD [address] | | | | | | [place], | | | | | | [place] [address] | | | | | | [phone] | | | | | | | | +--------+ + + + + documented as of this encounter Visit Diagnoses Not on filedocumented in this encounter"
--- OUTSIDE RECORDS SUMMARY | ~2020-03-13 | XMS | Encounter Summary ---
Demographics + + + | Address | [address] | | | [place] [address] | + + + | Home Phone | | + + + | Preferred Language | Unknown | + + + | Marital Status | | + + + | Temple Affiliation | Unknown | + + + | Race | Unknown | + + + | Ethnic Group | Unknown | + + + Author + + + | Author | [facility] | | | and [place] | + + + | Organization | [facility] | | [...] Team Providers + +------+ + | Care Program Professional Name | Role | Phone | + +------+ + | Burton Masters MD | PCP | | + +------+ + Reason for Visit + + + | Reason | Comments | + + + | Medication Refill | | + + + | Paperwork | | + + + Encounter Details +--------+--------+ + + + | Date | Type | Department | Care Team | Description | +--------+--------+ + + + | 02/18/ | Refill | [facility] | Burton Masters, | Medication Refill; | | 2018 | | [facility] [place] | [address] | Paperwork | | | | [address] | [place] | | | | | [place] | [address] | | | | | [address] | | | | | | [phone] | | | +--------+--------+ + + + [...] [place] | | | | | | [address] | | | | | | | | +--------+ + + + + | 03/18/ | Office | Physical Medicine | Jovana Dawson | | | 2019 | Visit | and Rehabilitation | MELANY Man [address] | | | | | | [facility] | | | | | | [address] [place] | | | | | | [address] | | | | | | | | +--------+ + + + + | 04/01/ | Appointment | Oncology | Deny Mcmanus, | | | 2019 | | | [address] | | | | | | [facility], | | | | | | [place] [address] | | | | | | [phone] | | | | | | | | +--------+ + + + + | 04/08/ | Procedure | Physical Medicine | Leonard De Leon | | 2019 | visit | and Rehabilitation | MD Audelia [address] | | | | | | [facility] [place] | | | | | | [address] | | | | | | | | +--------+ + + + + | 04/30/ | Office | Cardiology | Shad Saavedra, | | 2019 | Visit | | [address] | | | | | | [employer], | | | | | | [place] [address] | | | | | | [phone] | | | | | | | | +--------+ + + + + documented as of this encounter Visit Diagnoses Not on filedocumented in this encounter"
--- OUTSIDE RECORDS SUMMARY | ~2020-03-13 | XMS | Encounter Summary ---
Demographics + + + | Address | [address] | | | [place] [address] | + + + | Home Phone [...] Team Providers + +------+ + | Care Supply Chain Vice President Name | Role | Phone | + +------+ + | Burton Masters MD | PCP | | + +------+ + Encounter Details +--------+ + + + + | Date | Type | Department | Care Team | Description | +--------+ + + + + | 01/13/ | Abstract | [facility] | Burton Masters, | | | 2020 | | [facility] [place] | [address] | | | | | [address] | [place] | | | | | [place] | [address] | | | | | [address] | | | | | | [phone] | | | +--------+ + + + [...] + documented as of this encounter Progress Bernarda Prince - 2020 12:35 PM PDT07/19/2017 - [facility] per scanned document.Electronically signed by Bernarda Heredia at 0 2020 12:36 PM PDTdocumented in this encounter Plan of Treatment +--------+ + + + + | Date | Type | Specialty | Care Team | Description | +--------+ + + + + | 03/17/ | Virtual | Neurosurgery | Zuhair Flores | | | 2019 | Office | | MD Joselito [address] | | | | Visit | | [facility] | | | | | | [place] | | | | | | [address] | | | | | | | | +--------+ + + + + | 03/18/ | Office | Physical Medicine | Jovana Dawson | | | 2019 | Visit | and Rehabilitation | MELANY Man [address] | | | | | | [address] | | | | | | [place] | | | | | | [address] | | | | | | | | +--------+ + + + + | 04/01/ | Appointment | Oncology | Deny Mcmanus, | | 2019 | | | [address] | | | | | | [place] | | | | | | [place] [address] | | | | | | [phone] | | | | | | | | +--------+ + + + + | 04/08/ | Procedure | Physical Medicine | Leonard De Leon | | | 2019 | visit | and Rehabilitation | MD Auedlia [address] | | | | | | [place] | | | | | | [address] | | | | | | | | +--------+ + + + + | 04/30/ | Office | Cardiology | Shad Saavedra, | | | 2019 | Visit | | [address] | | | | | | [place], | | | | | | [place] [address] | | | | | | [phone] | | | | | | | | +--------+ + + + + documented as of this encounter Procedures + +--------+ + + + | Procedure Name | Priori | Date/Time | Associated Diagnosis | Comments | | | ty | | | | + +--------+ + + + | EXTERNAL LAB: [facility] | Routin | 07/19/2017 | | Results for this | | SMEAR | e | | | procedure are in the | | | | | | results section. | + +--------+ + + + documented in this encounter Results External Lab: PAP Smear (07/19/2017) + + + + + + | [...] + + + + + + | Resulting Agency Comment | + + | See scanned document | + + documented in this encounter Visit Diagnoses Not on filedocumented in this encounter"
--- OUTSIDE RECORDS SUMMARY | ~2020-03-13 | XMS | Encounter Summary ---
Demographics + + + | Address | [address] | | | [place] [address] | + + + | Home Phone [...] Team Providers + +------+ + | Care Rat Breeder Name | Role | Phone | + +------+ + | Burton Masters MD | PCP | | + +------+ + Reason for Visit + + + | Reason | Comments | + + + | Nausea | | + + + | Vomiting (Severe) | | + + + | Abdominal Pain | | + + + Encounter Details +--------+ + + + + | Date | Type | Department | Care Team | Description | +--------+ + + + + | 04/26/ | Emergency | [facility] | [address], | Vomiting, | | 2019 | | [facility] | [address] | intractability of | | | | CENTER [address] | [place] | vomiting not | | | | [place], [place] | [address] | specified, presence | | | | [address] | | of nausea not | | | | [phone] | | specified, | | | | | | unspecified vomiting | | | | | | type (Primary Dx); | | | | | | Diarrhea, | | | | | | unspecified type | +--------+ + + + + Social [...] + + + | Blood Pressure | 135/105 | 04/26/2019 3:01 PM | | | | | PDT | | + + + + + | Pulse | 69 | 04/26/2019 2:30 PM | | | | | PDT | | + + + + + | Temperature | 36.8 C (98.2 F) | 04/26/2019 11:45 AM | | | | | PDT | | + + + + + | Respiratory Rate | 16 | 04/26/2019 11:45 AM | | | | | PDT | | + + + + + | Oxygen Saturation | 98% | 04/26/2019 2:30 PM | | | | | PDT | | + + + + + | Inhaled Oxygen | - | - | | | Concentration | | | | + + + + + | Weight | 77.1 kg (170 lb) | 04/26/2019 11:45 AM | | | | | PDT | | + + + + + | Height | 172.7 cm (5' 8") | 04/26/2019 11:45 AM | | | | | PDT | | + + + + + | Body Mass Index | 25.85 | 04/26/2019 11:45 AM | | | | | PDT | | + + + + + documented in this encounter Discharge Instructions AttachmentsThe following attachments cannot be sent through Care Everywhere.Vomiting and Di arrhea,Self-Care for (I[place]ic)documented in this encounter Medications at Time of [...] [address] | | | | | | [address] | | | | | | [address] [place] | | | | | | [phone] | | | | | | | | +--------+ + + + + | 04/01/ | Appointment | Oncology | Deny Mcmanus, | | | 2019 | | | [address] | | | | | | [facility], | | | | | | [place] [address] | | | | | | [phone] | | | | | | | | +--------+ + + + + | 04/08/ | Procedure | Physical Medicine | Leonard De Leon | | 2019 | visit | and Rehabilitation | MD Audelia [address] | | | | | | [place] | | | | | | [address] | | | | | | | | +--------+ + + + + | 04/30/ | Office | Cardiology | Shad Saavedra, | | | 2019 | Visit | | [address] | | | | | | [place], | | | | | | [place] [address] | | | | | | [phone] | | | | | | | | +--------+ + + + + + +------+--------+ + + | Name | Type | Priori | Associated Diagnoses | Date/Time | | | | ty | | | + +------+--------+ + + | ED INFORMATION | KEYUR | Routin | | 04/26/2019 11:31 AM | | EXCHANGE | | e | | PDT | + +------+--------+ + + documented as of this encounter Procedures + +--------+ + + + | Procedure Name | Priori | Date/Time | Associated Diagnosis | Comments | | | ty | | | | + +--------+ + + + | CT ABDOMEN PELVIS W | STAT | 04/26/2019 | | Results for this | | CONTRAST | | 1:36 PM | | procedure are in the | | | | PDT | | results section. | + +--------+ + + + | EXTRA LAVENDER TOP | Routin | 04/26/2019 | | Results for this | | TUBE | e | 1:02 PM | | procedure are in the | | | | PDT | | results section. | + +--------+ + + + | EXTRA GREEN TOP TUBE | Routin | 04/26/2019 | | Results for this | | | e | 1:02 PM | | procedure are in the | | | | PDT | | results section. | + +--------+ + + + | EXTRA BLUE TOP TUBE | Routin | 04/26/2019 | | Results for this | | | e | 1:02 PM | | procedure are in the | | | | PDT | | results section. | + +--------+ + + + | CBC WITH | STAT | 04/26/2019 | | Results for this | | DIFFERENTIAL | | 1:02 PM | | procedure are in the | | | | PDT | | results section. | + +--------+ + + + | LIPASE | STAT | 04/26/2019 | | Results for this | | | | 1:02 PM | | procedure are in the | | | | PDT | | results section. | + +--------+ + + + | AMYLASE | STAT | 04/26/2019 | | Results for this | | | | 1:02 PM | | procedure are in the | | | | PDT | | results section. | + +--------+ + + + | COMPREHENSIVE | STAT | 04/26/2019 | | Results for this | | METABOLIC PANEL | | 1:02 PM | | procedure are in the | | | | PDT | | results section. | + +--------+ + + + documented in this encounter Results CT Abdomen Pelvis w Contrast (04/26/2019 1:36 PM PDT) + + | Specimen | + + | | + + + + + | Narrative | Performed At | + + + | CT ABDOMEN PELVIS W CONTRAST 04/26/2019 1:31 PM HISTORY: NAUSEA | [facility] | | VOMITING (SEVERE) ABDOMINAL PAIN. COMPARISON: None. PROTOCOL: | | | Axial images of the abdomen and pelvis were obtained after | | | administration of 85 mL Omnipaque 350. Coronal and sagittal | | | reformations were acquired. FINDINGS: LUNG BASE: Visualized | | | lung bases are clear. Heart is normal in size. No evidence of pleural | | | effusion. HEPATOBILIARY: The liver is enlarged. No suspicious mass. | | | Focal fatty sparing along the falciform ligament. The gallbladder is | | | normal. No evidence of intrahepatic or extrahepatic biliary ductal | | | dilatation. PANCREASE: Normal parenchyma. No evidence of pancreatic | | | ductal dilation. SPLEEN: Normal parenchyma. No evidence of mass or | | | splenomegaly. ADRENAL GLANDS: No evidence of nodule, mass or | | | suspicious thickening. KIDNEYS: Bilateral kidneys are without | | | evidence of suspicious mass, calculus, or hydronephrosis. BLADDER: | | | Unremarkable. REPRODUCTIVE: Bilateral cysts or dominant follicles | | | involving the ovaries. VASCULATURE: Aorta is nonaneurysmal and | | | without evidence of dissection. LYMPH NODES: No enlarged lymph nodes | | | are visualized within the omentum or retroperitoneum. BOWEL: Mild | | | air and fluid-filled distention of a few loops of small bowel with a | | | few air-fluid levels. No suspicious bowel wall thickening or | | | inflammatory changes. Findings are nonspecific. No evidence of | | | obstruction. Normal appearance of the appendix. PERITONEUM: There is | | | no evidence for free fluid or free air. SOFT TISSUES: Body wall soft | | | tissue structures demonstrate no acute abnormalities. BONES: There | | | are no acute osseous abnormalities. Mild degenerative changes at | | | L5-S1. IMPRESSION - 1. No acute intra-abdominal abnormality | | | identified. 2. Mild air and fluid-filled distention of a few loops | | | of small bowel with a few air-fluid levels. No suspicious bowel wall | | | thickening or inflammatory changes. Findings are nonspecific. -No | | | evidence of a bowel obstruction. 3. No evidence of pancreatitis. 4. | | | Hepatomegaly. Dictated and Signed by: Jona | | | MD Son Electronically signed: 04/26/2019 2:39 PM | | + + + + + | Procedure Note | + + | Ruben, Rad Results In - 04/26/2019 2:[address] ABDOMEN PELVIS W CONTRAST 04/26/2019 | | 1:31 PMHISTORY: NAUSEAVOMITING (SEVERE)ABDOMINAL PAIN.COMPARISON: None.PROTOCOL: Axial | | images of the abdomen and pelvis were obtained afteradministration of 85 mL Omnipaque | | 350. Coronal and sagittal reformations wereacquired.FINDINGS:LUNG BASE: Visualized lung | | bases are clear. Heart is normal in size. No evidenceof pleural effusion. HEPATOBILIARY: | | The liver is enlarged. No suspicious mass. Focal fatty sparingalong the falciform | | ligament. The gallbladder is normal. No evidence ofintrahepatic or extrahepatic biliary | | ductal dilatation.PANCREASE: Normal parenchyma. No evidence of pancreatic ductal | | dilation.SPLEEN: Normal parenchyma. No evidence of mass or splenomegaly.ADRENAL GLANDS: | | No evidence of nodule, mass or suspicious thickening.KIDNEYS: Bilateral kidneys are | | without evidence of suspicious mass, calculus, orhydronephrosis.BLADDER: | | Unremarkable.REPRODUCTIVE: Bilateral cysts or dominant follicles involving the ovaries. | | VASCULATURE: Aorta is nonaneurysmal and without evidence of dissection. LYMPH NODES: No | | enlarged lymph nodes are visualized within the omentum orretroperitoneum. BOWEL: Mild | | air and fluid-filled distention of a few loops of small bowel with afew air-fluid | | levels. No suspicious bowel wall thickening or inflammatorychanges. Findings are | | nonspecific. No evidence of obstruction. Normal appearanceof the appendix.PERITONEUM: | | There is no evidence for free fluid or free air.SOFT TISSUES: Body wall soft tissue | | structures demonstrate no acuteabnormalities. BONES: There are no acute osseous | | abnormalities. Mild degenerative changes atL5-S1.IMPRESSION -1. No acute intra-abdominal | | abnormality identified.2. Mild air and fluid-filled distention of a few loops of small | | bowel with afew air-fluid levels. No suspicious bowel wall thickening or | | inflammatorychanges. Findings are nonspecific. -No evidence of a bowel obstruction.3. No | | evidence of pancreatitis.4. Hepatomegaly.Dictated and Signed by: Jona Clien MD | | Electronically signed: 04/26/2019 2:39 PM | |REPRODUCTIVE: Bilateral cysts or dominant follicles involving the ovaries. | |VASCULATURE: Aorta is nonaneurysmal and without evidence of dissection. | |LYMPH NODES: No enlarged lymph nodes are visualized within the omentum or | |retroperitoneum. | |BOWEL: Mild air and fluid-filled distention of a few loops of small bowel with a | |few air-fluid levels. No suspicious bowel wall thickening or inflammatory | |changes. Findings are nonspecific. No evidence of obstruction. Normal appearance | |of the appendix. | |PERITONEUM: There is no evidence for free fluid or free air. | |SOFT TISSUES: Body wall soft tissue structures demonstrate no acute | |abnormalities. | |BONES: There are no acute osseous abnormalities. Mild degenerative changes at | |L5-S1. | | | |IMPRESSION - | |1. No acute intra-abdominal abnormality identified. | |2. Mild air and fluid-filled distention of a few loops of small bowel with a | |few air-fluid levels. No suspicious bowel wall thickening or inflammatory | |changes. Findings are nonspecific. | |-No evidence of a bowel obstruction. | |3. No evidence of pancreatitis. | |4. Hepatomegaly. | | | | | | | | | | | | | |Dictated and Signed by: Jona Cline MD | | Electronically signed: 04/26/2019 2:39 PM | + + + +---------+ + + | Performing | Address | City/State/Zipcode | Phone Number | | Organization | | | | + +---------+ + + | [facility] | | | | + +---------+ + + Extra Lavender Top Tube (04/26/2019 1:02 PM PDT) + +-------+ + + + [...] ST. | [address] | [place], [place] | [phone] | | [facility] | | [address] | | | - LABORATORY | | | | + + + + + Extra Green Top Tube (04/26/2019 1:02 PM PDT) + +-------+ + + + [...] [address] | [place] | [phone] | | [facility] | | [address] | | | - LABORATORY | | | | + + + + + Extra Blue Top Tube (04/26/2019 1:02 PM PDT) + +-------+ + + + [...] + | [facility] | [address] | [place] | [phone] | | [facility] | | [address] | | | - LABORATORY | | | | + + + + + Amylase (04/26/2019 1:02 PM PDT) + +-------+ + + + | Component | Value | Ref Range | Performed | Pathologist | | | | | At | Signature | + +-------+ + + + | Amylase | 58 | 30 - 118 IU/L | [facility] | | | | | [...] [address] | [place] | [phone] | | [facility] | | [address] | | | - LABORATORY | | | | + + + + + Lipase (04/26/2019 1:02 PM PDT) + +--------+ + + + | Component | Value | Ref Range | Performed | Pathologist | | | | | At | Signature | + +--------+ + + + | Lipase | 60 (H) | 12 - 53 U/L | [...] ST. | [address] | [place], [place] | [phone] | | [facility] | | [address] | | | - LABORATORY | | | | + + + + + Comprehensive Metabolic Panel (04/26/2019 1:02 PM PDT) + + + + + + | Component | Value | Ref Range | Performed | Pathologist | | | | | At | Signature | + + + + + + | Na | 139 | 136 - 145 | [facility] | | | | | mmol/L | [facility] | | | | | | MEDICAL | | | | | | CENTER - | | | | | | LABORATORY | | + + + + + + | K | 3.8 | 3.4 - 5.1 | [facility] | [...] + + + + | CO2 | 24 | 20 - 31 mmol/L | [facility] [...] + + + + | Glucose | 70 | 60 - 106 mg/dL | [facility] | | | | | | [facility] | | | | | | MEDICAL | | | | | | CENTER - | | | | | | LABORATORY | | + + + + + + | BUN | 9 | 9 - 23 mg/dL | [facility] | | | | | | [facility] | | | | | | MEDICAL | | | | | | CENTER - | | | | | | LABORATORY | | + + + + + + | Creatinine | 0.69 | 0.55 - 1.02 | [facility] | | | | | mg/dL | [facility] | | | | | | MEDICAL | | | | | | CENTER - | | | | | | LABORATORY | | + + + + + + | eGFR if not | >60Comment: GLOMERULAR | >=60 | [facility] | | | | FILTRATION | mL/min/1.73m2 | [facility] | | | [place] | RATE,ESTIMATED | | MEDICAL | | | | mL/min/1.25s4Kkfa than | | CENTER - | | [...] + + + | Calcium | 8.3 (L) | 8.7 - 10.4 | [facility] | | | | | mg/dL | [facility] | | | | | | MEDICAL | | | | | | CENTER - | | | | | | LABORATORY | | + + + + + + | Albumin | 4.2 [...] + + + + | Total | 6.2 | 5.7 - 8.2 g/dL | [facility] [...] + + + + | ALT | 24 | 10 - 49 U/L | [facility] | | | | | | [facility] | | | | | | MEDICAL | | | | | | CENTER - | | | | | | LABORATORY | | + + + + + + | Alkaline | 80 | 46 - 116 U/L | [facility] [...] + + + + | BUN/Creatin | 13.0 | | [facility] | | | ine [...] + | [facility] | [address] | [place] | [phone] | | [facility] | | [address] | | | - LABORATORY | | | | + + + + + CBC with Differential (04/26/2019 1:02 PM PDT) + + + + + + | Component | Value | Ref Range | Performed | Pathologist | | | | | At | Signature | + + + + + + | WBC | 8.2 | 4.0 - 11.0 K/uL | [facility] | | | | | | [facility] | | | [facility] | | MEDICAL | | | | | | CENTER - | | | | | | LABORATORY | | + + + + + + | RBC | 4.53 | 3.70 - 5.20 | [facility] | | | | | M/uL | [facility] | | | | | | MEDICAL | | | | | | CENTER - | | | | | | LABORATORY | | + + + + + + | Hemoglobin | 14.7 | 11.5 - 16.0 | [facility] | | | | | g/dL | [facility] | | | | | | MEDICAL | | | | | | CENTER - | | | | | | LABORATORY | | + + + + + + | Hematocrit | 42.6 | 34.0 - 47.0 % | [facility] | | | | | | [facility] | | | | | | MEDICAL | | | | | | CENTER - | | | | | | LABORATORY | | + + + + + + | MCV | 94.0 | 83.0 - 101.0 fL | [facility] | | | | | | [facility] | | | | | | MEDICAL | | | | | | CENTER - | | | | | | LABORATORY | | + + + + + + | MCH | 32.5 | 28.0 - 35.0 pg | [facility] | | | | | | [facility] | | | | | | MEDICAL | | | | | | CENTER - | | | | | | LABORATORY | | + + + + + + | MCHC | 34.5 | 32.0 - 36.0 | [facility] | [...] + + + + | RDW-SD | 51.1 (H) | 35.1 - 46.3 fL | [facility] | | | | | | [facility] | | | | | | MEDICAL | | | | | | CENTER - | | | | | | LABORATORY | | + + + + + + | Platelet | 112 (L) | 140 - 440 K/uL | [facility] | | | Count | | | [facility] | | | | | | MEDICAL | | | | | | CENTER - | | | | | | LABORATORY | | + + + + + + | MPV | 7.9 | 6.5 - 12.4 fL | [facility] | | | | | | [facility] | | | | | | MEDICAL | | | | | | CENTER - | | | | | | LABORATORY | | + + + + + + | % | 46.7 | 45.0 - 82.0 % | [facility] | | | Neutrophils | | | [facility] | | | | | | MEDICAL | | | | | | CENTER - | | | | | | LABORATORY | | + + + + + + | % | 46.7 (H) | 20.0 - 45.0 % | [...] + + + + | Absolute | 3.84 | 1.80 - 8.50 | [facility] | | | Neutrophils | | K/uL | [facility] | | | | | | MEDICAL | | | | | | CENTER - | | | | | | LABORATORY | | + + + + + + | Absolute | 3.83 (H) | 0.60 - 3.20 | [facility] [...] + + + | Absolute | 0.08 | 0.00 - 0.40 | [facility] | | | Eosinophils | | K/uL | [facility] | | | | | | MEDICAL | | | | | | CENTER - | | | | | | LABORATORY | | + + + + + + | Absolute | 0.04 | 0.00 - 0.10 | [facility] | | | Basophils | | K/uL | [facility] | [...] Trim. Absolute (K/uL) Percentage (%) | [facility] | | 1st 0.003-0.091 K/uL 0.0-0.9% 2nd 0.007-0.247 K/uL | [facility] | | 0.1-2.0% 3rd 0.018-0.456 K/uL 0.1-2.0% | - LABORATORY | + + + + + + + + | Performing | Address | City/State/Zipcode | Phone Number | | Organization | | | | + + + + + | [facility] | [address] | [place] | [phone] | | [facility] | | [address] | | | - LABORATORY | | | | + + + + + documented in this encounter Visit Diagnoses + + | Diagnosis | + + | Vomiting, intractability of vomiting not specified, presence of nausea not specified, | | unspecified vomiting type - Primary | + + | Diarrhea, unspecified type | + + documented in this encounter Administered Medications + +--------+ +--------+------+------+ | Medication Order | MAR | Action | Dose | Rate | Site | | | Action | Date | | | | + +--------+ +--------+------+------+ | HYDROmorphone (DILAUDID) | Given | 04/26/20 | 0.5 mg | | | | injection 0.5 mg 0.5 mg, | | 19 1:53 | | | | | Intravenous, EVERY 15 MIN PRN, | | PM PDT | | | | | Pain, Starting 04/26/19 at | | | | | | | 1233, For 4 doses | | | | | | + +--------+ +--------+------+------+ +-------+ +--------+---+---+ | Given | 04/26/20 | 0.5 mg | | | | | 19 1:30 | | | | | | PM PDT | | | | +-------+ +--------+---+---+ | Given | 04/26/20 | 0.5 mg | | | | | 19 12:58 | | | | | | PM PDT | | | | +-------+ +--------+---+---+ +---+---+ | | | +---+---+ + +-------+ +--------+---+---+ | HYDROmorphone (DILAUDID) | Given | 04/26/20 | 0.5 mg | | | | injection 0.5 mg 0.5 mg, | | 19 2:41 | | | | | Intravenous, EVERY 15 MIN PRN, | | PM PDT | | | | | Pain, Starting 04/26/19 at | | | | | | | 1421, For 4 doses | | | | | | + +-------+ +--------+---+---+ +---+---+ | | | +---+---+ + +-------+ +--------+---+---+ | iohexol (OMNIPAQUE 350) 350 | Given | 04/26/20 | 85 mLs | | | | mg/mL injection 85 mL 85 mL, | | 19 1:37 | | | | | Intravenous, ONCE PRN, Other, for | | PM PDT | | | | | CT contrast study, Starting Fri | | | | | | | 04/26/19 at 1337, For 1 dose, | | | | | | | Radiology | | | | | | + +-------+ +--------+---+---+ +---+---+ | | | +---+---+ + +-------+ +------+---+---+ | ondansetron (ZOFRAN) injection | Given | 04/26/20 | 4 mg | | | | 4 mg 4 mg, Intravenous, ONCE, | | 19 12:58 | | | | | 04/26/19 at 1240, For 1 dose | | PM PDT | | | | + +-------+ +------+---+---+ +---+---+ | | | +---+---+ + +---------+ +---------+-------+---+ | promethazine (PHENERGAN) 12.5 | New Bag | 04/26/20 | 12.5 mg | 202 | | | mg in sodium chloride 0.9% 50 mL | | 19 2:40 | | mL/hr | | | IVPB 12.5 mg, Intravenous, | | PM PDT | | | | | Administer over 15 Minutes, ONCE, | | | | | | | 04/26/19 at 1425, For 1 dose | | | | | | + +---------+ +---------+-------+---+ +---+---+ | | | +---+---+ + +---------+ +--------+-------+---+ | sodium chloride 0.9% (NS) bolus | New Bag | 04/26/20 | 1,000 | 2000 | | | 1,000 mL 1,000 mL, Intravenous, | | 19 1:49 | mLs | mL/hr | | | Administer over 30 Minutes, | | PM PDT | | | | | ONCE, 04/26/19 at 1240, For 1 | | | | | | | dose | | | | | | + +---------+ +--------+-------+---+ +---+---+ | | | +---+---+ documented in this encounter
--- OUTSIDE RECORDS SUMMARY | ~2020-03-13 | XMS | Encounter Summary ---
Demographics + + + | Address | [address] | | | [place] [address] | + + + | Home Phone [...] Organization | [facility] | | | and [place] | + [...] Team Providers + +------+ + | Care Radiologic Therapist Name | Role | Phone | + +------+ + | Burton Masters MD | PCP | | + +------+ + Encounter Details +--------+ + + + + | Date | Type | Department | Care Team | Description | +--------+ + + + + | 05/18/ | Emergency | [facility] | No, Physician p | Patient left without | | 2017 | | [facility] | | being seen (Primary | | | | CENTER [address] | | Dx) | | | | [place] | | | | | | [address] | | | | | | [phone] | | | +--------+ + + + [...] [place] | | | | | | [address] | | | | | | | | +--------+ + + + + | 03/18/ | Office | Physical Medicine | Jovana Dawson | | | 2019 | Visit | and Rehabilitation | MELANY Man [address] | | | | | | [address] | | | | | | [address] [place] | | | | | | [address] | | | | | | | | +--------+ + + + + | 04/01/ | Appointment | Oncology | Deny Mcmanus, | | | 2019 | | | [address] | | | | | | [place] | | | | | | [place] [address] | | | | | | [phone] | | | | | | | | +--------+ + + + + | 04/08/ | Procedure | Physical Medicine | Leonard De Leon | | | 2019 | visit | and Rehabilitation | MD Kiki Win | | | | | | [place] | | | | | | [address] | | | | | | | | +--------+ + + + + | 04/30/ | Office | Cardiology | Shad Saavedra, | | | 2019 | Visit | | [address] | | | | | | [place], | | | | | | [place] [address] | | | | | | [phone] | | | | | | | | +--------+ + + + + + +------+--------+ + + | Name | Type | Priori | Associated Diagnoses | Date/Time | | | | ty | | | + +------+--------+ + + | ED INFORMATION | KEYUR | Routin | | 05/18/2017 1:48 PM | | EXCHANGE | | e | | PDT | + +------+--------+ + + documented as of this encounter Procedures + +--------+ + + + | Procedure Name | Priori | Date/Time | Associated Diagnosis | Comments | | | ty | | | | + +--------+ + + + | ED INFORMATION | Routin | 05/18/2017 | | | | EXCHANGE | e | 1:48 PM | | | | | | PDT | | | + +--------+ + + + +---+--------+ | | | | | Proced | | | ure | | | Note - | | | Mario, | | | Lab In | | | | | | Hlseve | | | n - | | | 07/13/ | | | 2017 | | | 1:49 | | | PM PDT | | | | | | [...] | | | FICATI | | | ON?07/ | | | 13/201 | | | 7 | | | 13:45? | | | LENZ | | | , | | | KATHRY | | | N | | | L?MRN: | | | | | | [id number] | | | [id number] | | | his | | | [...] | | | ent/26 | | | [id number] | | | -[id number] | | | [...] | | | int | | | Jef | | | [...] | | 2 10 | | | 0 | | | 6-12 | | | HYDROC | | | ODON-A | | | CETAMI | | | NOPHEN | | | 5-325 | | | 60 | | | DOUGLA | | | S | | | LUCIA | | | 2 10 | | | 0 | | | 5-15 | | | HYDROC | | | ODON-A | | | CETAMI | | | NOPHEN | | | 5-325 | | | 60 | | | DOUGLA | | | S | | | LUCIA | | | 2 10 | | | | | | 4-17 | | | HYDROC | | | ODON-A | | | CETAMI | | | NOPHEN | | | 5-325 | | | 60 | | | DOUGLA | | | S | | | LUCIA | | | 2 10 | | | 0 | | | 3-20 | | | HYDROC | | | ODON-A | | | CETAMI | | | NOPHEN | | | 5-325 | | | 60 | | | DOUGLA | | | S | | | LUCIA | | | 2 10 | | | 0 | | | 2-16 | | | HYDROC | | | ODON-A | | | CETAMI | | | NOPHEN | | | 5-325 | | | 60 | | | DOUGLA | | | S | | | LUCIA | | | 2 10 | | | 0 | | | 1-25 | | | HYDROC | | | [...] | | | Dates | | | NPI: | | | [id number] | | | [id number] | | | Primar | | | [...] + | Diagnosis | + + | Patient left without being seen - Primary Surgical or other procedure not carried out | | because of patient's decision | + + documented in this encounter"
--- OUTSIDE RECORDS SUMMARY | ~2020-03-13 | XMS | Encounter Summary ---
Demographics + + + | Address | [address] | | | [place] [address] | + + + | Home Phone [...] Team Providers + +------+ + | Care Tractor Operator Laser Leveling Name | Role | Phone | + +------+ + PCP | Unavailable | + +------+ + Encounter Details +--------+ + + + + | Date | Type | Department | Care Team | Description | +--------+ + + + + | 04/28/ | Hospital | [facility] | | | | 1997 - | Encounter | MED [facility] MED ON[facility] | | | | | | [address] [place] | | | | 04/29/ | | [place] [address] | | | | 1997 | | [phone] | | | +--------+ + + + [...] [place] | | | | | | [address] | | | | | | | | +--------+ + + + + | 03/18/ | Office | Physical Medicine | Jovana Dawson | | | 2019 | Visit | and Rehabilitation | MELANY Man [address] | | | | | | [address] | | | | | | [place] | | | | | | [address] | | | | | | | | +--------+ + + + + | 04/01/ | Appointment | Oncology | Deny Mcmanus, | | | 2019 | | | [address] | | | | | | [place] | | | | | | [place] [address] | | | | | | [phone] | | | | | | | | +--------+ + + + + | 04/08/ | Procedure | Physical Medicine | Leonard De Leon | | | 2019 | visit | and Rehabilitation | MD Audelia [address] | | | | | | [place] | | | | | | [address] | | | | | | | | +--------+ + + + + | 04/30/ | Office | Cardiology | Shad Saavedra, | | | 2019 | Visit | | MD [address] | | | | | | [place], | | | | | | [place] [address] | | | | | | [phone] | | | | | | | | +--------+ + + + + documented as of this encounter Visit Diagnoses Not on filedocumented in this encounter"
--- OUTSIDE RECORDS SUMMARY | ~2020-03-13 | XMS | Encounter Summary ---
Demographics + + + | Address | [address] | | | [place] [address] | + + + | Home Phone [...] Providers + +------+ + | Care Automobile Body Worker Name | Role | Phone | [...] + + + + | 04/10/ | Telephone | [facility] | Deny Mcmanus, | Care Coordination | | 2019 | | [facility] | [address] | | | | | [facility] [address] [place], | | | | | [address] [place] | [place] [address] | | | | | [place] [address] | [phone] | | | | | [phone] | | | +--------+ + + + [...] | | | Visit | | [address] [facility] [address] | | | | | | [place] | | | | | | [address] | | | | | | | | +--------+ + + + + | 03/18/ | Office | Physical Medicine | Jovana Dawson | | | 2019 | Visit | and Rehabilitation | MELANY Man [address] | | | | | | [address] [facility] | | | | | | [address] [place] | | | | | | [address] | | | | | | | | +--------+ + + + + | 04/01/ | Appointment | Oncology | Deny Mcmanus, | | 2019 | | | MD Alan [address] | | | | | | [address] [place] | | | | | | [place] [address] | | | | | | [phone] | | | | | | | | +--------+ + + + + | 04/08/ | Procedure | Physical Medicine | Leonard De Leon | | | 2019 | visit | and Rehabilitation | MD Kiki Win | | | | | | [facility] [place] | | | | | | [address] | | | | | | | | +--------+ + + + + | 04/30/ | Office | Cardiology | Shad Saavedra, | | | 2019 | Visit | | MD [address] | | | | | | [place] | | | | | | [place] [address] | | | | | | [phone] | | | | | | | | +--------+ + + + + documented as of this encounter Visit Diagnoses Not on filedocumented in this encounter"
--- OUTSIDE RECORDS SUMMARY | ~2020-03-13 | XMS | Encounter Summary ---
Demographics + + + | Address | [address] | | | [place] [address] | + + + | Home Phone [...] Team Providers + +------+ + | Care Mat Puncher Name | Role | Phone | + [...] pain, | Burton Rizzo, | [address] | | | | | unspecified | [address] | [place], | | | | | back | [address] | [place] | | | | | location, | [place], | [address] | | | | | unspecified | [place] [address] | Phone: | | | | | back pain | Phone: | [phone] | | | | | laterality, | [phone] | Fax: | | | | | unspecified | Fax: | [phone] | | | | | chronicity | [phone] | | | | | | Procedures [...] | Radiology | Diagnoses | Sonam, | [facility] | | | | | Back pain, | Burton D, | [address] | | | | | unspecified | MD [address] | [place], | | | | | back | [address] | [place] | | | | | location, | [place], | [address] | | | | | unspecified | [place] [address] | Phone: | | | | | back pain | Phone: | [phone] | | | | | laterality, | [phone] | Fax: | | | | | unspecified | Fax: | [phone] | | | | | chronicity | [phone] | | | | | | Procedures [...] | +--------+ + + + + | 12/14/ | Hospital | [facility] | Burton Masters, | Back pain, | | 2017 | Encounter | MED CTR MRI [address] | unspecified back | | | | [address] [place], | [place], [place] | location, | | | | [place] [address] | [address] | unspecified back | | | | [phone] | | pain laterality, | | | [...] + +---------+ + + | buPROPion | 1 tablet by mouth | 180 | 0 | 11/30/19 | | | (WELLBUTRIN SR) 150 | bid. | tablet | | 17 | 7 | | mg 12 hr tablet | | | | | | + + + +---------+ + + | diphenhydrAMINE | Take 25 mg by mouth | | 0 | | | | (BENADRYL) 25 mg | every 6 hours as | | | | 7 | | tablet | needed for Itching. | | | | | + + [...] tablet by | 60 | 0 | 11/30/19 | | | HYDROcodone-acetamin | mouth every [...] | | 0 | | | | Lpoenohh-Ekd-Gq-FA | mouth Daily. | | | | [...] [place] | | | | | | [address] | | | | | | | [...] [place] | | | | | | [address] | | | | | | | | +--------+ + + + + | 04/01/ | Appointment | Oncology | Deny Mcmanus, | | | 2019 | | | MD [address] | | | | | | [place] | | | | | | [place] [address] | | | | | | [phone] | | | | | | | | +--------+ + + + + | 04/08/ | Procedure | Physical Medicine | Leonard De Leon | | | 2019 | visit | and Rehabilitation | MD Audelia [address] | | | | | | [place], [place] | | | | | | [address] | | | | | | | | +--------+ + + + + | 04/30/ | Office | Cardiology | Shad Saavedra, | | | 2019 | Visit | | [address] | | | | | | [place], | | | | | | [place] [address] | | | | | | [phone] | | | | | | | | +--------+ + + + + documented as of this encounter Procedures + +--------+ + + + | Procedure Name | Priori | Date/Time | Associated Diagnosis | Comments | | | ty | | | | + +--------+ + + + | MRI LUMBAR SPINE WO | Routin | 12/14/2016 | Back pain, | Results for this | | CONTRAST | e | 8:16 AM | unspecified back | procedure are in the | | | | PST | location, | results section. | | | | | unspecified back | | | | | | pain laterality, | | | | | | unspecified | | | | | | chronicity | | + +--------+ + + + documented in this encounter Results MRI Lumbar Spine wo Contrast (12/14/2016 8:16 AM PST) + + | Specimen | + + | | + + + + + | Narrative | Performed At | + + + | MRI LUMBAR SPINE WITHOUT CONTRAST CLINICAL INFORMATION: | [facility] | | Lower back and left leg pain. COMPARISON: No comparisons | [facility] | | PROCEDURE: Sagittal T2, axial T2, sagittal T1, axial T1, sagittal | [facility] | | STIR sequences. FINDINGS: Alignment: Normal. Vertebrae and | - IMAGING | | vertebral marrow signal: Predominantly fatty degenerative endplate | | | changes at L5-S1. Otherwise unremarkable multiple endplate | | | Schmorl's nodes throughout the lower thoracic and lumbar spine. | | | Conus and imaged portions of the caudal cord: Normal. Lumbar disc | | | levels: Severe disc space narrowing at L5-S1. mild to moderate disc | | | space narrowing at L4-5. Mild to moderate facet arthropathy from | | | L1-2 through L5-S1. At L3-4 and above, degenerative findings are | | | relatively minor without significant central canal or neural | | | foraminal stenosis. Tiny posterior annular fissures at L4-5 and | | | L5-S1. L4-5: Mild central canal stenosis due to posterior disc | | | bulge and facet arthropathy. Mild to moderate bilateral neural | | | foraminal stenosis. L5-S1: Posterior disc bulge, slightly | | | asymmetric to the left which contacts the S1 nerve root on the left | | | lateral recess. No significant central canal stenosis. Mild to | | | moderate bilateral neural foraminal stenosis. Paraspinal | | | musculature and paravertebral soft tissues: Normal. IMPRESSION- | | | 1. Moderate to severe degenerative disc disease at L5-S1 and mild to | | | moderate degenerative disc disease at L4-5. 2. L4-5: Mild central | | | canal stenosis. Mild to moderate bilateral neural foraminal | | | stenosis. 3. L5-S1: Mild to moderate bilateral neural foraminal | | | stenosis. Asymmetric left paracentral disc bulge contacting the left | | | S1 nerve root in the lateral recess. The radiologist signature | | | directly following this report is the reading radiologist and billing | | | locum provider for this service. The radiologist placing the | | | final signature did not dictate or review this study, but was | | | required to sign for administrative purposes only. Signed by: | | | Freedom Valdes Report sent: 12/14/2016 11:03:00 AM Dictated and | | | Signed by: Oleg Jones MD Electronically signed: 12/14/2016 11:37 | | | AM | | + + + + + | Procedure Note | + + | Ruben, Rad Results In - 12/14/2016 11:40 AM PST | | MRI LUMBAR SPINE WITHOUT CONTRAST | | | | CLINICAL INFORMATION: | | Lower back and left leg pain. | | | | COMPARISON: | | No comparisons | | | | PROCEDURE: | | Sagittal T2, axial T2, sagittal T1, axial T1, sagittal STIR sequences. | | | | FINDINGS: | | Alignment: Normal. | | | | Vertebrae and vertebral marrow signal: Predominantly fatty degenerative | | endplate changes at L5-S1. Otherwise unremarkable multiple endplate | | Schmorl's nodes throughout the lower thoracic and lumbar spine. | | | | Conus and imaged portions of the caudal cord: Normal. | | | | Lumbar disc levels: Severe disc space narrowing at L5-S1. mild to | | moderate disc space narrowing at L4-5. Mild to moderate facet | | arthropathy from L1-2 through L5-S1. At L3-4 and above, degenerative | | findings are relatively minor without significant central canal or | | neural foraminal stenosis. Tiny posterior annular fissures at L4-5 and | | L5-S1. | | | | L4-5: Mild central canal stenosis due to posterior disc bulge and | | facet arthropathy. Mild to moderate bilateral neural foraminal | | stenosis. | | | | L5-S1: Posterior disc bulge, slightly asymmetric to the left which | | contacts the S1 nerve root on the left lateral recess. No significant | | central canal stenosis. Mild to moderate bilateral neural foraminal | | stenosis. | | | | Paraspinal musculature and paravertebral soft tissues: Normal. | | | | IMPRESSION- | | 1. Moderate to severe degenerative disc disease at L5-S1 and mild to | | moderate degenerative disc disease at L4-5. | | 2. L4-5: Mild central canal stenosis. Mild to moderate bilateral | | neural foraminal stenosis. | | 3. L5-S1: Mild to moderate bilateral neural foraminal stenosis. | | Asymmetric left paracentral disc bulge contacting the left S1 nerve | | root in the lateral recess. | | | | The radiologist signature directly following this report is the reading | | radiologist and billing locum provider for this service. | | | | The radiologist placing the final signature did not dictate or review this | | study, but was required to sign for administrative purposes only. | | | | Signed by: Freedom Valdes | | Report sent: 12/14/2016 11:03:00 AM | | | | Dictated and Signed by: Oleg Jones MD | | Electronically signed: 12/14/2016 11:37 AM | + + + + + + + | Performing | Address | City/State/Zipcode | Phone Number | | Organization | | | | + + + + + | [facility] | [address] | [place] | [phone] | | [facility] | | [address] | | | - IMAGING | | | | + + + + + documented in this encounter Visit Diagnoses + + | Diagnosis | + + | Back pain, unspecified back location, unspecified back pain laterality, unspecified | | chronicity | + + documented in this encounter"
--- OUTSIDE RECORDS SUMMARY | ~2020-03-13 | XMS | Encounter Summary ---
Demographics + + + | Address | [address] | | | [place] [address] | + + + | Home Phone [...] Team Providers + +------+ + | Care Retail Business Manager Name | Role | Phone | + +------+ + | Burton Masters MD | PCP | | + +------+ + Reason for Visit + + + | Reason | Comments | + + + | Medication | | | Management | | + + + | Sinusitis | 2 weeks | + + + | Nicotine Dependence | | + + + Encounter Details +--------+---------+ + + + | Date | Type | Department | Care Team | Description | +--------+---------+ + + + | 03/15/ | Office | [facility] | Burton Masters, | Lumbar radiculopathy | | 2017 | Visit | [facility] [place] | [address] | - left lower | | | | [address] | [place] | extremity (Primary | | | | [place], [place] | [address] | Dx); DDD | | | | [address] | | (degenerative disc | | | | [phone] | | disease), lumbar; | | | | | | Chronic midline low | | | | | | back pain, with | | | | | | sciatica presence | | | | | | unspecified | +--------+---------+ + + + Social History [...] + + + | Blood Pressure | 124/76 | 03/15/2017 10:14 AM | | | | | PDT | | + + + + + | Pulse | 96 | 03/15/2017 10:14 AM | | | | | PDT | | + + + + + | Temperature | 36.7 C (98.1 F) | 03/15/2017 10:14 AM | | | | | PDT | | + + + + + | Respiratory Rate | 16 | 03/15/2017 10:14 AM | | | | | PDT | | + + + + + | Oxygen Saturation | 99% | 03/15/2017 10:14 AM | | | | | PDT | | + + + + + | Inhaled Oxygen | - | - | | | Concentration | | | | + + + + + | Weight | 93.9 kg (207 lb) | 03/15/2017 10:14 AM | | | | | PDT | | + + + + + | Height | - | - | | + + + + + | Body Mass Index | 31.47 | 03/07/2017 9:06 AM | | | | | PDT | | + + + + + documented in this encounter Progress Notes Burton Masters MD - 03/15/2017 10:42 AM PDTFormatting of this note might be different f rom the original. Subjective: Patient ID: Ashley Webb is a 32 y.o. female. Sinusitis This is a new problem. The current episode started 1 to 4 weeks ago. The problem is unchang ed. There has been no fever. Her pain is at a severity of 7/10. Associated symptoms include congestion, headaches and sinus pressure. Pertinent negatives include no coughing, ear pain, hoarse voice, shortness of breath, sneezing, sore throat or swollen glands. Past treatments include acetaminophen. The treatment provided no relief. Drug Problem Primary symptoms comment: smoking /nicotine. This is a chronic problem. The current episode started more than 1 year ago. Pertinent negatives include no bowel incontinence or fever. Back Pain This is a chronic problem. The current episode started more than 1 year ago. The problem is unchanged. The pain is at a severity of 5/10. The pain is moderate. Associated symptoms inc lude headaches. Pertinent negatives include no bowel incontinence, chest pain, dysuria or fe ayaka. Past Medical History Diagnosis Date Anxiety Depression [...] Problem List Diagnosis Date Noted POA Lumbar spondylosis 03/07/2017 Unknown Lumbar radiculopathy - left lower extremity 04/16/2015 Unknown DDD (degenerative disc disease), lumbar 04/16/2015 Unknown Chronic low back pain 04/16/2015 Unknown Past Surgical History Procedure Laterality Date section 02/05/2010 Dr. Cristina MARTINEZ Dilation and curettage of uterus 05/13/2015 section N/A 10/14/2016 Procedure: Repeat ; Surgeon: Dorota Beal DO; Location: [facility] MAIN OR Breast cyst aspiration Left Shoulder surgery 08/2014 Family History Problem Relation Age of Onset High blood pressure Mother Multiple sclerosis Mother High blood pressure Father High cholesterol Father Gout Father No Known Problems Brother No Known Problems Sister No Known Problems Child No Known Problems Child No Known Problems Child Heart disease Paternal Grandfather High blood pressure [...] Maternal Aunt Social History Social History Marital Status: Spouse Name: N/A Number of Children: 3 Years of Education: 15 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 No current facility-administered medications on file prior to visit. No Known Allergies Review of Systems Constitutional: Negative. Negative for fever. HENT: Positive for congestion and sinus pressure. Negative for ear pain, hoarse voice, snee zing and sore throat. Eyes: Negative. Respiratory: Negative. Negative for cough and shortness of breath. Cardiovascular: Negative. Negative for chest pain. Gastrointestinal: Negative. Negative for bowel incontinence. Genitourinary: Negative. Negative for dysuria. Musculoskeletal: Positive for back pain. Skin: Negative. Neurological: Positive for headaches. Psychiatric/Behavioral: Negative. Objective: Physical Exam Constitutional: She [...] a normal mood and affect. Assessment: 1. Lumbar radiculopathy - left lower extremity 2. DDD (degenerative disc disease), lumbar 3. Chronic midline low back pain, with sciatica presence unspecified Plan: New Prescriptions AZITHROMYCIN (ZITHROMAX) 500 MG TABLET Take 1 tablet by mouth Daily for 5 days. VARENICLINE (CHANTIX STARTING ) 0.5 MG X 11 & 1 MG X 42 TABLET Take 0.5 mg by mouth once daily on days 1-3 and 0.5 mg twice daily on days 4-7, then 1 mg twice daily. VARENICLINE (CHANTIX) 1 MG TABLET Take 1 tablet by mouth 2 times daily. Requested Prescriptions Signed Prescriptions Disp Refills azithromycin (ZITHROMAX) 500 MG tablet 5 tablet 0 Sig: Take 1 tablet by mouth Daily for 5 days. varenicline (CHANTIX) 1 MG tablet 60 tablet 1 Sig: Take 1 tablet by mouth 2 times daily. varenicline (CHANTIX STARTING ) 0.5 MG X 11 & 1 MG X 42 tablet 53 tablet 0 Sig: Take 0.5 mg by mouth once daily on days 1-3 and 0.5 mg twice daily on days 4-7, then 1 mg twice daily. HYDROcodone-acetaminophen (NORCO) 5-325 mg per tablet 60 tablet 0 Sig: Take 1 tablet by mouth every 12 hours as needed for Pain. Discussion of risks of chantix documented in this encounter Plan of Treatment +--------+ + + + + | Date | Type | Specialty | Care Team | Description | +--------+ + + + + | 03/17/ | Virtual | Neurosurgery | Zuhair Flores | | | 2019 | Office | | MD Joselito [address] | | | | Visit | | [address] [facility] [address] | | | | | | [place] | | | | | | [address] | | | | | | | | +--------+ + + + + | 03/18/ | Office | Physical Medicine | Jovana Dawson | | | 2019 | Visit | and Rehabilitation | MELANY Man [address] | | | | | | [address] [facility] | | | | | | [address] [place] | | | | | | [address] | | | | | | | | +--------+ + + + + | 04/01/ | Appointment | Oncology | Deny Mcmanus, | | | 2019 | | | [address] | | | | | | [address] [place] | | | | | | [place] [address] | | | | | | [phone] | | | | | | | | +--------+ + + + + | 04/08/ | Procedure | Physical Medicine | Prashantbreanacarmenyessica Leonard | | | 2019 | visit | and Rehabilitation | MD Audelia [address] | | | | | | [place], [place] | | | | | | [address] | | | | | | | | +--------+ + + + + | 04/30/ | Office | Cardiology | Keri Elvavinicius, | | | 2019 | Visit | | [address] | | | | | | [place], | | | | | | [place] [address] | | | | | | [phone] | | | | | | | [...] with sciatica presence unspecified | + + documented in this encounter"
--- OUTSIDE RECORDS SUMMARY | ~2020-03-13 | XMS | Encounter Summary ---
Demographics + + + | Address | [address] | | | [place] [address] | + + + | Home Phone | | + + + | Preferred Language | Unknown | + + + | Marital Status | | + + + | Sabianist Affiliation | Unknown | + + + | Race | Unknown | + + + | Ethnic Group | Unknown | + + + Author + + + | Author | [facility] | | | and [place] | + + + | Organization | [facility] | | [...] Team Providers + +------+ + | Care Earth Science Technical Officer Name | Role | Phone | + [...] Description | +--------+--------+ + + + | 02/19/ | Refill | [facility] | Burton Masters, | Medication Refill | | 2020 | | [facility] [place] | [address] | | | | | [address] | [place] | | | | | [place] | [address] | | | | | [address] | | | | | | [phone] | | | +--------+--------+ + + + [...] [place] | | | | | | [address] | | | | | | | [...] [place] | | | | | | [address] | | | | | | | | +--------+ + + + + | 04/01/ | Appointment | Oncology | Deny Mcmanus, | | | 2019 | | | MD [address] | | | | | | [place] | | | | | | [place] [address] | | | | | | [phone] | | | | | | | | +--------+ + + + + | 04/08/ | Procedure | Physical Medicine | Leonard De Leon | | | 2019 | visit | and Rehabilitation | MD Kiki Win | | | | | | [place] | | | | | | [address] | | | | | | | | +--------+ + + + + | 04/30/ | Office | Cardiology | Shad Saavedra, | | | 2019 | Visit | | MD Alan Cruz | | | | | | [place], | | | | | | [place] [address] | | | | | | [phone] | | | | | | | | +--------+ + + + + documented as of this encounter Visit Diagnoses Not on filedocumented in this encounter"
--- OUTSIDE RECORDS SUMMARY | ~2020-03-13 | XMS | Encounter Summary ---
Demographics + + + | Address | [address] | | | [place] [address] | + + + | Home Phone | | + + + | Preferred Language | Unknown | + + + | Marital Status | | + + + | Alevism Affiliation | Unknown | + + + | Race | Unknown | + + + | Ethnic Group | Unknown | + + + Author + + + | Author | [facility] | | | and [place] | + + + | Organization | [facility] | | [...] Team Providers + +------+ + | Care Malthouse Laborer Name | Role | Phone | + +------+ + | Burton Masters MD | PCP | | + +------+ + Reason for Visit + + + | Reason | Comments | + + + | Paperwork | Patient is here to fill out disability paperwork. | + + + | Follow-up | Regarding medical conditions. | + + + | Flu Vaccine | | + + + Encounter Details +--------+---------+ + + + | Date | Type | Department | Care Team | Description | +--------+---------+ + + + | 10/29/ | Office | [facility] | Burton Masters, | Depression, | | 2019 | Visit | [facility] [place] | [address] | unspecified | | | | [address] | [place] | depression type | | | | [place] | [address] | (Primary Dx); | | | | [address] | | Recovering alcoholic | | | | [phone] | | in remission (HCC); | | | | | | Chronic myeloid | | | | | | leukemia, | | | | | | BCR/ABL-positive, in | | | | | | remission (HCC); | | | | | | Lumbar spondylosis | +--------+---------+ + + + Social History [...] + + + | Blood Pressure | 94/58 | 10/29/2019 8:45 AM | | | | | PST | | + + + + + | Pulse | 53 | 10/29/2019 8:45 AM | | | | | PST | | + + + + + | Temperature | 36.8 C (98.3 F) | 10/29/2019 8:45 AM | | | | | PST | | + + + + + | Respiratory Rate | 16 | 10/29/2019 8:45 AM | | | | | PST | | + + + + + | Oxygen Saturation | 99% | 10/29/2019 8:45 AM | | | | | PST | | + + + + + | Inhaled Oxygen | - | - | | | Concentration | | | | + + + + + | Weight | 78.4 kg (172 lb 13.5 | 10/29/2019 8:45 AM | | | | oz) | PST | | + + + + + | Height | 172.7 cm (5' 8") | 10/29/2019 8:45 AM | | | | | PST | | + + + + + | Body Mass Index | 26.28 | 10/29/2019 8:45 AM | | | | | PST | | + + + + + documented in this encounter Progress Notes Burton Masters MD - 10/29/2019 8:30 AM PSTFormatting of this note might be different f rom the original. Subjective: Patient ID: Ashley Webb is a 34 y.o. female. Chief Complaint Patient presents with Paperwork Patient is here to fill out disability paperwork. Follow-up Regarding medical conditions. Flu Vaccine Mental Health Problem The primary symptoms do not include dysphoric mood, delusions, hallucinations, bizarre beha vior, disorganized speech, negative symptoms or somatic symptoms. Primary symptoms comment: overall doing well. . Back Pain This is a chronic problem. The current episode started more than 1 year ago. The problem oc curs daily. The pain is present in the lumbar spine. The quality of the pain is described as aching. The pain does not radiate. The pain is at a severity of 4/10. The pain is moderate. We also reviewed her leukemia diagnosis and its impact on her avbility to work as well as h er other medical problems: Patient Active Problem List Diagnosis Lumbar spondylosis Major depressive disorder, recurrent episode Depression Chronic myeloid leukemia (CML), BCR/ABL-positive Tobacco abuse Nausea Alcohol use Labile mood SVT (supraventricular tachycardia) Orthostatic hypotension Anxiety making work not possible and so disability paperwork filled out today. Past Medical History: Diagnosis Date Abdominal pain Abnormal vaginal bleeding Abscess of trunk Anxiety Bipolar disease, chronic ([facility]) Breast lump Chest pain, unspecified Chronic low back pain 04/16/2015 Chronic myeloid leukemia, BCR/ABL-positive, not having achieved remission ([facility]) 9 Cough DDD (degenerative disc disease), lumbar 04/16/2015 Depression Engorgement of breasts associated with childbirth, delivered Fatigue Female pelvic pain Fibromyalgia Flu Generalized anxiety disorder Headache Insomnia Knee pain Lumbar radiculopathy - left lower extremity 04/16/2015 Missed Mucocele of salivary gland Muscle spasm Obesity Palpitations Panic disorder Pulpitis Sciatica Shoulder pain SVT (supraventricular tachycardia) ([facility]) Tachycardia Tobacco use Family History [...] level: Not on file Occupational History 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 Tobacco Use Smoking status: Current Every [...] Systems Musculoskeletal: Positive for back pain. Psychiatric/Behavioral: Negative for dysphoric mood and hallucinations. . Objective: BP 94/58 | Pulse 53 | Temp 36.8 C (98.3 F) (Temporal) | Resp 16 | Ht 1.727 m (5' 8" ) | Wt 78.4 kg (172 lb 13.5 oz) | LMP 10/11/2019 (Within Days) | SpO2 99% | BMI 26.28 kg /m Physical Exam Assessment/Plan: 1. Depression, unspecified depression type 2. 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 Chronic myeloid leukemia, BCR/ABL-positive, in remission (HCC) 4. Lumbar spondylosis documented in this encounter Plan of Treatment +--------+ + + + + | Date | Type | Specialty | Care Team | Description | +--------+ + + + + | 03/17/ | Virtual | Neurosurgery | Zuhair Flores | | | 2019 | Office | | MD Josel[address] | | | | Visit | | [facility] | | | | | | [place] | | | | | | [phone] | | | | | | | | +--------+ + + + + | 03/18/ | Office | Physical Medicine | Jovana Dawson | | | 2019 | Visit | and Rehabilitation | MELANY Man [address] | | | | | | [address] | | | | | | [address] [place] | | | | | | [address] | | | | | | | | +--------+ + + + + | 04/01/ | Appointment | Oncology | Deny Mcmanus, | | | 2019 | | | [address] | | | | | | [place] | | | | | | [place] [address] | | | | | | [phone] | | | | | | | | +--------+ + + + + | 04/08/ | Procedure | Physical Medicine | Leonard De Leon | | | 2019 | visit | and Rehabilitation | MD Audelia [address] | | | | | | [place] | | | | | | [address] | | | | | | | | +--------+ + + + + | 04/30/ | Office | Cardiology | Shad Saavedra, | | | 2019 | Visit | | [address] | | | | | | 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
--- OUTSIDE RECORDS SUMMARY | ~2020-03-13 | XMS | Encounter Summary ---
Demographics + + + | Address | [address] | | | [place] [address] | + + + | Home Phone | | + + + | Preferred Language | Unknown | + + + | Marital Status | | + + + | Mormon Affiliation | Unknown | + + + | Race | Unknown | + + + | Ethnic Group | Unknown | + + + Author + + + | Author | [facility] | | | and [place] | + + + | Organization | [facility] | | | [...] Team Providers + +------+ + | Care Vegetable Tester Name | Role | Phone | [...] Description | +--------+--------+ + + + | 02/04/ | Refill | [facility] | Burton Masters, | Medication Refill | | 2020 | | [facility] [place] | [address] | | | | | [address] | [place] | | | | | [place] | [address] | | | | | [address] | | | | | | [phone] | | | +--------+--------+ + + + [...] [place] | | | | | | [address] | | | | | | | | +--------+ + + + + | 03/18/ | Office | Physical Medicine | Jovana Dawson | | | 2019 | Visit | and Rehabilitation | MELANY Man [address] | | | | | | [facility] | | | | | | [address] [place] | | | | | | [address] | | | | | | | | +--------+ + + + + | 04/01/ | Appointment | Oncology | Deny Mcmanus, | | | 2019 | | | MD [address] | | | | | | [place] | | | | | | [place] [address] | | | | | | [phone] | | | | | | | | +--------+ + + + + | 04/08/ | Procedure | Physical Medicine | Leonard De Leon | | | 2019 | visit | and Rehabilitation | MD Kiki Win | | | | | | [place] | | | | | | [address] | | | | | | | | +--------+ + + + + | 04/30/ | Office | Cardiology | Shad Saavedra, | | | 2019 | Visit | | MD Alan Cruz | | | | | | [place], | | | | | | [place] [address] | | | | | | [phone] | | | | | | | | +--------+ + + + + documented as of this encounter Visit Diagnoses Not on filedocumented in this encounter"
--- OUTSIDE RECORDS SUMMARY | ~2020-03-13 | XMS | Encounter Summary ---
Demographics + + + | Address | [address] | | | [place] [address] | + + + | Home Phone | | + + + | Preferred Language | Unknown | + + + | Marital Status | | + + + | Moravian Affiliation | Unknown | + + + | Race | Unknown | + + + | Ethnic Group | Unknown | + + + Author + + + | Author | [facility] | | | and [place] | + + + | Organization | [facility] | | | [...] Team Providers + +------+ + | Care Order Checker Packer Processer Name | Role | Phone | + [...] + + + + | 06/28/ | Emergency | [facility] | Bhavik Bonilla Aida, | Gastroenteritis | | 2016 | | MED [facility] EM[facility] | MD [address] | (Primary Dx) | | | | CENTER [address] | [place] | | | | | [place] | [address] | | | | | [address] | | | | | | [phone] | | | +--------+ + + + [...] + + + | Blood Pressure | 129/85 | 05/03/2016 12:55 AM | | | | | PDT | | + + + + + | Pulse | 104 | 05/03/2016 12:55 AM | | | | | PDT | | + + + + + | Temperature | 36.6 C (97.8 F) | 05/03/2016 12:55 AM | | | | | PDT | | + + + + + | Respiratory Rate | 18 | 05/03/2016 12:55 AM | | | | | PDT | | + + + + + | Oxygen Saturation | 98% | 05/03/2016 12:55 AM | | | | | PDT | | + + + + + | Inhaled Oxygen | - | - | | | Concentration | | | | + + + + + | Weight | 95.7 kg (211 lb) | 05/03/2016 12:55 AM | | | | | PDT | | + + + + + | Height | 172.7 cm (5' 7.99") | 05/03/2016 12:55 AM | | | | | PDT | | + + + + + | Body Mass Index | 32.09 | 05/03/2016 12:55 AM | | | | | PDT | | + + + + + documented in this encounter Discharge Instructions Instructions Bhavik Bonilla MD - 05/03/2016Return if worsening or new concerning symptoms . AttachmentsThe following attachments cannot be sent through Care Everywhere.VOMITING AND DI ARRHEA,SELF-CARE FOR (KHMER)documented in this encounter Medications at Time of [...] | | 0 | | | | Xiwjjcg-Srzqzlopo-Cs | | | | | 6 | [...] | | 0 | | | | Agurgfpe-Uqh-Wp-FA | mouth Daily. | | | | [...] | | | Visit | | [facility] | | | [...] | | | | | [facility] | | | | | | [address] [place] | | | | | | [address] | | | | | | | | +--------+ + + + + | 04/01/ | Appointment | Oncology | Deny Mcmanus, | | 2019 | | | MD [address] | | | | | | [address] [place] | | | | | | [place] [address] | | | | | | [phone] | | | | | | | | +--------+ + + + + | 04/08/ | Procedure | Physical Medicine | Leonard De Leon | | 2019 | visit | and Rehabilitation | MD Audelia [address] | | | | | | [facility] [place] | | | | | | [address] | | | | | | | | +--------+ + + + + | 04/30/ | Office | Cardiology | Shad Saavedra, | | | 2019 | Visit | | [address] | | | | | | [place], | | | | | | [place] [address] | | | | | | [phone] | | | | | | | | +--------+ + + + + + +------+--------+ + + | Name | Type | Priori | Associated Diagnoses | Date/Time | | | | ty | | | + +------+--------+ + + | ED INFORMATION | KEYUR | Routin | | 05/03/2016 12:53 AM | | EXCHANGE | | e [...] for this | | | e | 1:23 AM | | procedure are in the | | | | PDT | | results section. | + +--------+ + + + | EXTRA GOLD TOP TUBE | Routin | 05/03/2016 | | Results for this | | | e | 1:23 AM | | procedure are in the | | | | PDT | | results section. | + +--------+ + + + | EXTRA BLUE TOP TUBE | Routin | 05/03/2016 | | Results for this | | | e | 1:23 AM | | procedure are in the | | | | PDT | | results section. | + +--------+ + + + | CBC WITH | STAT | 05/03/2016 | | Results for this | | DIFFERENTIAL | | 1:22 AM | | procedure are in the | | | | PDT | | results section. | + +--------+ + + + | LIPASE | STAT | 05/03/2016 | | Results for this | | | | 1:22 AM | | procedure are in the | | | | PDT | | results section. | + +--------+ + + + | COMPREHENSIVE | STAT | 05/03/2016 | | Results for this | | METABOLIC PANEL | | 1:22 AM | | procedure are in the | | | | PDT | | results section. | + +--------+ + + + | URINALYSIS WITH | STAT | 05/03/2016 | | Results for this | | MICROSCOPIC WITH | | 1:14 AM | | procedure are in the | | CULTURE IF INDICATED | | PDT | | results section. | + +--------+ + + + | ED INFORMATION | Routin | 05/03/2016 | | | | EXCHANGE | e | 12:53 AM | | | | | | PDT | | | + +--------+ + + + documented in this encounter Results Extra Gold Top Tube (05/03/2016 1:23 AM PDT) + +-------+ + + + [...] + | [facility] | [address] | [place] | [phone] | | [facility] | | [address] | | | - LABORATORY | | | | + + + + + Extra Blue Top Tube (05/03/2016 1:23 AM PDT) + +-------+ + + + [...] [address] | [place] | [phone] | | [facility] | | [address] | | | - LABORATORY | | | | + + + + + Extra Green Top Tube (05/03/2016 1:23 AM PDT) + +-------+ + + + [...] [address] | [place] | [phone] | | [facility] | | [address] | | | - LABORATORY | | | | + + + + + Lipase (05/03/2016 1:22 AM PDT) + +-------+ + + + | Component | Value | Ref Range | Performed | Pathologist | | | | | At | Signature | + +-------+ + + + | Lipase | 22 | 0 - 60 U/L | [facility] | | | | [...] [address] | [place] | [phone] | | [facility] | | [address] | | | - LABORATORY | | | | + + + + + Comprehensive Metabolic Panel (05/03/2016 1:22 AM PDT) + + + + + [...] + + | BUN | 13 | 7 - 18 mg/dL | [facility] | | | | | | [facility] | | [facility] | [facility] | | | | | | CENTER - | | | | | | LABORATORY | | + + + + + + | Creatinine | 0.58 (L) | 0.60 - 1.30 | [facility] | | | | | mg/dL | [facility] | | | | | | MEDICAL | | | | | | CENTER - | | | | | | LABORATORY | | + + + + + + | eGFR if not | >60Comment: GLOMERULAR | >=60 | [facility] | | | | FILTRATION | mL/min/1.73m2 | [facility] | | | [place] | RATE,ESTIMATED | | MEDICAL | | | | mL/min/1.41x6Uxek than | | CENTER - | | [...] + + + + | Calcium | 8.8 | 8.3 - 10.5 | [facility] | [...] + + + + | Bilirubin | 0.5 | 0.1 - 1.5 mg/dL | [facility] | | | Total | | | [facility] | | | | | | MEDICAL | | | | | | CENTER - | | | | | | LABORATORY | | + + + + + + | Total | 6.3 | 6.0 - 7.8 g/dL | [facility] [...] + + + + | ALT | 19 | 6 - 45 U/L | [facility] | | | | | | [facility] | | | | | | MEDICAL | | | | | | CENTER - | | | | | | LABORATORY | | + + + + + + | Alkaline | 45 | 40 - 110 U/L | [facility] | | | Phosphatase | | | [facility] | | | | | | MEDICAL | | | | | | CENTER - | | | | | | LABORATORY | | + + + + + + | Globulin | 2.7 | 2.1 - 3.8 g/dL | [facility] [...] + + + + | BUN/Creatin | 22.4 | | [facility] | | | ine [...] [address] | [place] | [phone] | | [facility] | | [address] | | | - LABORATORY | | | | + + + + + CBC with Differential (05/03/2016 1:22 AM PDT) + + + + + + | Component | Value | Ref Range | Performed | Pathologist | | | | | At | Signature | + + + + + + | WBC | 10.7 | 4.0 - 11.0 K/uL | [facility] [...] + + + + | MCV | 91.4 | 83.0 - 101.0 fL | [facility] [...] | 34.1 | 32.0 - 36.0 | [facility] | [...] + + + + | Platelet | 166 | 140 - 440 K/uL | [facility] | | | Count | | | [facility] | | | | | | MEDICAL | | | | | | CENTER - | | | | | | LABORATORY | | + + + + + + | MPV | 8.5 | fL | [facility] | | | | | | [facility] | | | | | | MEDICAL | | | | | | CENTER - | | | | | | LABORATORY | | + + + + + + | % | 85.1 (H) | 45.0 - 82.0 % | [facility] | | | Neutrophils | | | [facility] | | | | | | MEDICAL | | | | | | CENTER - | | | | | | LABORATORY | | + + + + + + | % | 10.9 (L) | 20.0 - 45.0 % | [...] | | Eosinophils | | | [facility] | | | | | | MEDICAL | | | | | | CENTER - | | | | | | LABORATORY | | + + + + + + | % Basophils | 0.3 | 0.0 - 1.0 % | [facility] | | | | | | [facility] | | | | | | MEDICAL | | | | | | CENTER - | | | | | | LABORATORY | | + + + + + + | Absolute | 9.10 (H) | 1.80 - 8.50 | [facility] | | | Neutrophils | | K/uL | [facility] | | | | | | MEDICAL | | | | | | CENTER - | | | | | | LABORATORY | | + + + + + + | Absolute | 1.20 | 0.60 - 3.20 | [facility] | | | Lymphocytes | | K/uL | [facility] | | | | | | MEDICAL | | | | | | CENTER - | | | | | | LABORATORY | | + + + + + + | Absolute | 0.30 | 0.00 - 1.00 | [facility] | | | Monocytes | | K/uL | [facility] | | | | | | MEDICAL | | | | | | CENTER - | | | | | | LABORATORY | | + + + + + + | Absolute | 0.10 | 0.00 - 0.40 | [facility] | | | Eosinophils | | K/uL | [facility] | | | | | | MEDICAL | | | | | | CENTER - | | | | | | LABORATORY | | + + + + + + | Absolute | 0.00 | 0.00 - 0.10 | [facility] | | | Basophils | | K/uL [...] [address] | [place] | [phone] | | [facility] | | [address] | | | - LABORATORY | | | | + + + + + Urinalysis with Microscopic with Culture if Indicated (05/03/2016 1:14 AM PDT) + + + + + [...] + + + + | Specific | 1.024 | 1.001 - 1.030 | [facility] | | | Vass, | | | [facility] | | [...] | | | Urine | | | [facility] | | [...] + + + + | Squamous | 50-100 (A) | 0 - 2 /LPF | [...] | Comment | Indicated | | [facility] | | | [...] ST. | [address] | [place] | [phone] | | [facility] | | [address] | | | - LABORATORY | | | | + + + + + documented in this encounter Visit Diagnoses + + | Diagnosis | + + | Gastroenteritis - Primary Other and unspecified noninfectious gastroenteritis and | | colitis | + + documented in this encounter Administered Medications + +--------+ +-------+------+------+ | Medication Order | MAR | Action | Dose | Rate | Site | | | Action | Date | | | | + +--------+ +-------+------+------+ | metoclopramide (REGLAN) 5 mg/mL | Given | 05/03/20 | 10 mg | | | | injection 10 mg 10 mg, | | 16 1:23 | | | | | Intravenous, ONCE, 05/03/16 at | | AM PDT | | | | | 0110, For 1 dose, Protect from | | | | | | | light., | | | | | | + +--------+ +-------+------+------+ +---+---+ | | | +---+---+ + + + +------+---+---+ | ondansetron (ZOFRAN ODT) | Dispense | 05/03/20 | 4 mg | | | | disintegrating tablet (ED | to Home | 16 2:50 | | | | | homepack) 4 mg 4 mg, Oral, ONCE, | | AM PDT | | | | | 05/03/16 at 0240, For 1 dose, | | | | | | | Dissolve on tongue or swallow 1 | | | | | | | or 2 tablets every 8 hours prn | | | | | | | nausea or vomiting Dispense for | | | | | | | home use., | | | | | | + + + +------+---+---+ +---+---+ | | | +---+---+ + +---------+ +--------+-------+---+ | sodium chloride 0.9% (NS) bolus | New Bag | 05/03/20 | 1,000 | 2000 | | | 1,000 mL 1,000 mL, Intravenous, | | 16 1:22 | mLs | mL/hr | | | Administer over 30 Minutes, | | AM PDT | | | | | ONCE, 05/03/16 at 0110, For 1 | | | | | | | dose | | | | | | + +---------+ +--------+-------+---+ +---+---+ | | | +---+---+ documented in this encounter
--- OUTSIDE RECORDS SUMMARY | ~2020-03-13 | XMS | Encounter Summary ---
Demographics + + + | Address | [address] | | | [place] [address] | + + + | Home Phone [...] Team Providers + +------+ + | Care Platform Builder Name | Role | Phone | + +------+ + | Burton Masters MD | PCP | | + +------+ + Reason for Visit + + + | Reason | Comments | + + + | Ankle Injury | | + + + Encounter Details +--------+ + + + + | Date | Type | Department | Care Team | Description | +--------+ + + + + | 01/26/ | Telephone | [facility] [place] [facility] | SonamBurton Matthias, | Ankle Injury | | 2020 | | [facility] [place] | [address] | | | | | [address] | [place] | | | | | [place] | [address] | | | | | [address] | | | | | | [phone] | | | +--------+ + + + [...] | | | Visit | | [facility] | | | | | | [place] | | | | | | [address] | | | | | | | | +--------+ + + + + | 03/18/ | Office | Physical Medicine | Jovana Dawson | | 2019 | Visit | and Rehabilitation | MELANY Man [address] | | | | | | [facility] | | | | | | [address] [place] | | | | | | [address] | | | | | | | | +--------+ + + + + | 04/01/ | Appointment | Oncology | Deny Mcmanus, | | 2019 | | | [address] | | | | | | [address] [place], | | | | | | [place] [address] | | | | | | [phone] | | | | | | | | +--------+ + + + + | 04/08/ | Procedure | Physical Medicine | Leonard De Leon | | | 2019 | visit | and Rehabilitation | MD Kiki Win | | | | | | [place] | | | | | | [address] | | | | | | | | +--------+ + + + + | 04/30/ | Office | Cardiology | Shad Saavedra, | | | 2019 | Visit | | MD [address] | | | | | | [place], | | | | | | [place] [address] | | | | | | [phone] | | | | | | | | +--------+ + + + + documented as of this encounter Visit Diagnoses Not on filedocumented in this encounter"
--- OUTSIDE RECORDS SUMMARY | ~2020-03-13 | XMS | Encounter Summary ---
Demographics + + + | Address | [address] | | | [place] [address] | + + + | Home Phone [...] Team Providers + +------+ + | Care Wine Cellar Stock Clerk Name | Role | Phone | [...] Description | +--------+--------+ + + + | 05/16/ | Refill | [facility] | Burton Masters, | Medication Refill | | 2019 | | [facility] | [address] | | | | | [address] | [place] | | | | | [place] | [address] | | | | | [address] | | | | | | [phone] | | | +--------+--------+ + + + [...] [place] | | | | | | [id number] | | | | | | | | +--------+ + + + + | 03/18/ | Office | Physical Medicine | Jovana Dawson | | 2019 | Visit | and Rehabilitation | MELANY Man W | | | | | | [address] [facility] | | | | | | [address] [place] | | | | | | [address] | | | | | | | | +--------+ + + + + | 04/01/ | Appointment | Oncology | Deny Mcmanus, | | 2019 | | | MD Alan CRUZ | | | | | | [address] [place] | | | | | | [place] [address] | | | | | | [phone] | | | | | | | | +--------+ + + + + | 04/08/ | Procedure | Physical Medicine | Leonard De Leon | | 2019 | visit | and Rehabilitation | MD Kiki Win | | | | | | [place] | | | | | | [address] | | | | | | | | +--------+ + + + + | 04/30/ | Office | Cardiology | Shad Saavedra, | | | 2019 | Visit | | MD Alan Cruz | | | | | | [place] | | | | | | [place] [address] | | | | | | [phone] | | | | | | | | +--------+ + + + + documented as of this encounter Visit Diagnoses Not on filedocumented in this encounter"
--- OUTSIDE RECORDS SUMMARY | ~2020-03-13 | XMS | Encounter Summary ---
Demographics + + + | Address | [address] | | | [place] [address] | + + + | Home Phone | | + + + | Preferred Language | Unknown | + + + | Marital Status | Single | + + + | Worship Affiliation | NON | + + + | Race | White | + + + | Ethnic Group | Not or | + + + Author + + + | Author | [facility] | + + + | Organization | [facility] | + + + | [...] Team Providers + +------+ + | Care Die Maintenance Name | Role | Phone | + +------+ + | Burton Masters MD | PCP | | + +------+ + Encounter Details +--------+ + + + + | Date | Type | Department | Care Team | Description | +--------+ + + + + | 01/09/ | Pharmacy | [facility] | | | | 2019 | Visit | [address] | | | | | | [address] | | | | | | [place] [address] | | | | | | [phone] | | | +--------+ + + + [...] Arce | | | | | | [place], [place] | | | | | | [address] | | | | | | [phone] | | | | | | | | +--------+---------+ + + + documented as of this encounter Visit Diagnoses Not on filedocumented in this encounter"
--- OUTSIDE RECORDS SUMMARY | ~2020-03-13 | XMS | Encounter Summary ---
Demographics + + + | Address | [address] | | | [place] [address] | + + + | Home Phone | | + + + | Preferred Language | Unknown | + + + | Marital Status | | + + + | Religion Affiliation | Unknown | + + + [...] Team Providers + +------+ + | Care Tour Driver Name | Role | Phone | + [...] | | | | | cular | [address] | Dr Song | | | | | tachycardia) | [place], | [place], [place] | | | | | ([facility]) | [place] [address] | [address] Phone: | | | | | Procedures | Phone: | [phone] | | | | | DR OLMOS'S | [phone] | Fax: | | | | | OFFICE | Fax: | [phone] | | | | | CLOSED FOR | [phone] | | | | | | THE DAY. | | | | | | | NEED TO CALL | | | | | | | TO SEE IF | | | | | | | CONTRACTED | | | | | | | ON MON. | | | +--------+ + + + + + Reason for Visit +--------+ + | Reason | Comments | +--------+ + | Other | | +--------+ + Encounter Details +--------+ + + + + | Date | Type | Department | Care Team | Description | +--------+ + + + + | 07/05/ | Telephone | [facility] | Shad Saavedra, | Other | | 2019 | | CARDIOLOGY [address] | MD [address] | | | | | [place], | [place], | | | | | [place] [address] | [place] [address] | | | | | [phone] | [phone] | | | | | | | [...] | | | Visit | | [facility] [address] | | | | | | [place], [place] | | | | | | [address] | | | | | | | | +--------+ + + + + | 03/18/ | Office | Physical Medicine | Jovana Dawson | | | 2019 | Visit | and Rehabilitation | MELANY Man [address] | | | | | | [facility] | | | | | | [address] [place] | | | | | | [address] | | | | | | | | +--------+ + + + + | 04/01/ | Appointment | Oncology | Deny Mcmanus, | | | 2019 | | | [address] | | | | | | [address], | | | | | | [place] [address] | | | | | | [phone] | | | | | | | | +--------+ + + + + | 04/08/ | Procedure | Physical Medicine | Leonard De Leon | | 2019 | visit | and Rehabilitation | MD Audelia [address] | | | | | | [place], [place] | | | | | | [address] | | | | | | | | +--------+ + + + + | 04/30/ | Office | Cardiology | Shad Saavedra, | | | 2019 | Visit | | [address] | | | | | | [place], | | | | | | [place] [address] | | | | | | [phone] | | | | | | | | +--------+ + + + + documented as of this encounter Procedures + +--------+ + + + | Procedure Name | Priori | Date/Time | Associated Diagnosis | Comments | | | ty | | | | + +--------+ + + + | AMB REFERRAL TO | Routin | 08/11/2019 | SVT | | | CARDIOLOGY | e | 9:31 PM | (supraventricular | | | | | PDT | tachycardia) ([facility]) | | + +--------+ + + + documented in this encounter Visit Diagnoses + + | Diagnosis | + + | SVT (supraventricular tachycardia) ([facility]) - Primary Other specified cardiac | | dysrhythmias | + + documented in this encounter"
--- OUTSIDE RECORDS SUMMARY | ~2020-03-13 | XMS | Encounter Summary ---
Demographics + + + | Address | [address] | | | [place] [address] | + + + | Home Phone [...] Providers + +------+ + | Care Order Entry Technician Name | Role | Phone | + +------+ + | Burton Masters MD | PCP | | + +------+ + Reason for Visit + + + | Reason | Comments | + + + | Therapy Daily | | | Treatment | | + + + Evaluate & Treat (Routine) +--------+ + + + + + | Status | Reason | Specialty | Diagnoses / | Referred By | Referred To | | | | | Procedures | Contact | Contact | +--------+ + + + + + | Closed | Specialty | Physical | Diagnoses | Sonam, | Do Not Use | | | Services | Therapy / | Post | Burton Rizzo, | - [facility] | | | Required | Rehabilitatio | depression | MD [address] | [facility] [address] | | | | [address] | Back pain, | [address] | [address] | | | | | unspecified | [place], | [place], | | | | | back | [place] [address] | [place] [address] | | | | | location, | Phone: | Phone: | | | | | unspecified | [phone] | [phone] | | | | | back pain | Fax: | Fax: | | | | | laterality, | [phone] | [phone] | | | | | unspecified | | | | | | | chronicity | | | +--------+ + + + + + Encounter Details +--------+---------+ + + + | Date | Type | Department | Care Team | Description | +--------+---------+ + + + | 01/06/ | Office | [facility] | Burton Masters, | Lumbar radiculopathy | | 2017 | Visit | [facility] | MD [address] | (Primary Dx) | | | | [address] [place] | [place], [place] | | | | | [place] [address] | [address] | | | | | [phone] | | | | | | | Freedom Rogers | | | | | | D, PT [address] | | | | | [address] [place], [place] | | | | | | [address] | | | | | | | [...] documented as of this encounter Progress Notes Freedom Rogers, PT - 01/06/2017 8:26 AM PSTFormatting of this note might be differen t from the original. [facility] [address] [place] [address] Physical Therapy Daily Treatment Note Date: 01/06/2017 Patient Information Patient Name: Ashley Webb Date of : 1985 Age: 31 y.o. Encounter Diagnoses Code Name Primary? M54.16 Lumbar radiculopathy Yes Date of Onset: 01/03/2017 Referring Provider: Burton Masters MD # of PT Visits to Date: 2 Start Time: 817 Stop time: 899 Duration: 42 minutes Timed Treatment Codes: 42 minutes Rehab Precautions Office Visit from 01/03/[address] [facility] Rehab Precautions Precautions None Pain Assessment: Pain Rating Pre Assessment: 4 Pain Rating During Assessment: 2.5 Location: low back and left leg. Subjective: Patient reports some progress towards goals listed below. She states the stretc hes help to loosen up her back. /. Goals: Patient Reported Outcome Goals Patient Reported Outcome Goals: PSFS Patient Specific Functional Scale Goal 1: SHE WILL BE ABLE TO SIT FOR UP TO 45 MINUTES 1-2 TIMES A DAY IN ORDER TO CHART AT [facility] Patient Specific Functional Scale Goal 1 Status: 2 Patient Specific Functional Scale Goal 2: SHE WILL BE ABLE TO STAND FOR UP TO 30 MINUTES AT A TIMES 3-4 TIMES A WORK SHIFT SO SHE CAN COMPLETE WORK ACTIVITIES. 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 Found pt is not an extension responder. Pain provoked with l eft unilateral PA to L5, repeated extension in standing and supine increased back and left l eg pain Assessed leg length which was equivalent. Reviewed HEP -piriformis stretch 2x30 sec -prayer stretch 2x30 sec, instructed pt in 3 direction prayer stretch - cat and came 5x5 sec -TrA in supine 5 sec hold for 10 reps -TrA with january x20 reps total -TrA with SLR 1x10 each -pelvic tilt 5 secx 10 reps -cardio on elliptical 5 min Progressed HEP: Access Code: [email or web address] URL: [email or web address] Date: 01/06/2017 Prepared by: Freedom Rogers Exercises Supine January - 10 Reps - 2-3 Sets - 2-3 Hold (sec) - 1x daily Supine Transversus Abdominis Bracing with Leg Extension - 10 Reps - 2-3 Sets - 2-3 Hold (se c) - 1x daily Small Range Straight Leg Raise - 10 Reps - 3 Sets - 2-3 Hold (sec)- 1x daily Beginner Bridge - 10 Reps - 3 Sets - 5 Hold (sec) - 1x daily Clamshell - 10 Reps - 3 Sets - 1x daily Assessment: Pt has significant core weakness that will benefit from continued stabilization exercise. S aurora her spine has a combination of stenosis and disc bulges a more neutral to flexion based program will be most beneficial for her to be able to perform functional activities without causing increased pain. Plan: Continue core stabilization progressions. Start with warm on cardio machinery of preference next session. Electronically signed by: Freedom Rogers PT, 01/06/2017 8:53 Patient Name: Ashley Webb/: 1985/ documented in th is encounter Plan of Treatment +--------+ + + + + | Date | Type | Specialty | Care Team | Description | +--------+ + + + + | 03/17/ | Virtual | Neurosurgery | Zuhair Flores | | 2019 | Office | | MD [address] | | | | Visit | | [facility] [place] [address] | | | | | | [place] | | | | | | [address] | | | | | | | | +--------+ + + + + | 03/18/ | Office | Physical Medicine | Jovana Dawson | | | 2019 | Visit | and Rehabilitation | MELANY Man [address] | | | | | | [address] [facility] | | | | | | [place] | | | | | | [address] | | | | | | | | +--------+ + + + + | 04/01/ | Appointment | Oncology | Deny Mcmanus, | | 2019 | | | [address] | | | | | | [place] | | | | | | [place] [address] | | | | | | [phone] | | | | | | | | +--------+ + + + + | 04/08/ | Procedure | Physical Medicine | Leonard De Leon | | | 2019 | visit | and Rehabilitation | MD Audelia [address] | | | | | | [place] | | | | | | [address] | | | | | | | | +--------+ + + + + | 04/30/ | Office | Cardiology | Shad Saavedra, | | | 2019 | Visit | | [address] | | | | | | [place], | | | | | | [place] [address] | | | | | | [phone] | | | | | | | | +--------+ + + + + documented as of this encounter Visit Diagnoses + + | Diagnosis | + + | Lumbar radiculopathy - Primary Thoracic or lumbosacral neuritis or radiculitis, | | unspecified | + + documented in this encounter"
--- OUTSIDE RECORDS SUMMARY | ~2020-03-13 | XMS | Encounter Summary ---
Demographics + + + | Address | [address] | | | [place] [address] | + + + | Home Phone | | + + + | Preferred Language | Unknown | + + + | Marital Status | | + + + | Sabianism Affiliation | Unknown | + + + | Race | Unknown | + + + | Ethnic Group | Unknown | + + + Author + + + | Author | [facility] | | | and [place] | + + + | Organization | [facility] | [...] Team Providers + +------+ + | Care Automotive Leasing Sales Representative Name | Role | Phone | + +------+ + | Burton Masters MD | PCP | | + +------+ + Reason for Visit + + + | Reason | Comments | + + + | Follow-up | discuss medication | + + + Encounter Details +--------+---------+ + + + | Date | Type | Department | Care Team | Description | +--------+---------+ + + + | 01/16/ | Office | [facility] | Burton Masters, | Chronic midline low | | 2019 | Visit | [facility] | [address] | back pain, with | | | | [address] | [place], [place] | sciatica presence | | | | [place], [place] | [address] | unspecified (Primary | | | | [address] | | Dx); Need for | | | | [phone] | | vaccination with | | | | | | 13-polyvalent | | | | | | pneumococcal | | | | | | conjugate vaccine; | | | | | | Chronic myeloid | | | | | | leukemia, | | | | | | BCR/ABL-positive, | | | | | | not having achieved | | | | | | remission (HCC) | +--------+---------+ + + + Social History [...] + + + | Blood Pressure | 126/84 | 01/16/2019 9:34 AM | | | | | PDT | | + + + + + | Pulse | 82 | 01/16/2019 9:34 AM | | | | | PDT | | + + + + + | Temperature | 36.7 C (98 F) | 01/16/2019 9:34 AM | | | | | PDT | | + + + + + | Respiratory Rate | - | - | | + + + + + | Oxygen Saturation | 99% | 01/16/2019 9:34 AM | | | | | PDT | | + + + + + | Inhaled Oxygen | - | - | | | Concentration | | | | + + + + + | Weight | 85.4 kg (188 lb 4.4 | 01/16/2019 9:34 AM | | | | oz) | PDT | | + + + + + | Height | 172.7 cm (5' 7.99") | 01/16/2019 9:34 AM | | | | | PDT | | + + + + + | Body Mass Index | 28.63 | 01/16/2019 9:34 AM | | | | | PDT | | + + + + + documented in this encounter Progress Notes Cynthia Ann, Dance Critic - 01/16/2019 9:30 AM PDTAfter obtaining informed cons ent, the immunization PCV 13 was given by Cynthia Ann [facility]. Natalya Jones Cert MA - 9 9:30 AM PDTPatient to have Prevnar 13 today and in 8 weeks will be due for Pneumovax 23. We will check a titer 12 weeks after 2nd pneumonia vaccine. Burton Ware MD - 01/16/2019 9:30 AM PDTFor matting of this note might be different from the original. Subjective: Patient ID: Ashley Webb is a 34 y.o. female. Chief Complaint Patient presents with Follow-up discuss medication Back Pain This is a chronic problem. The problem occurs constantly. The problem is unchanged. The juliana n is present in the lumbar spine. The pain is at a severity of 5/10. The pain is moderate. [facility] paperwork filled ut. 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 . Objective: BP 126/84 | Pulse 82 | Temp 36.7 C (98 F) (Temporal) | Ht 1.727 m (5' 7.99") | Wt 8 5.4 kg (188 lb 4.4 oz) | SpO2 99% | BMI 28.63 kg/m Physical Exam Assessment/Plan: 1. Need for vaccination with 13-polyvalent pneumococcal conjugate vaccine Pneumococcal con jugate vaccine (PCV13),IM [91911] 2. Chronic midline low back pain, with sciatica presence unspecified 3. Chronic myeloid leukemia, BCR/ABL-positive, not having achieved remission (HCC) Requested Prescriptions Signed Prescriptions Disp Refills HYDROcodone-acetaminophen [...] [address] | | | | | | [address] | | | | | | [address] [place] | | | | | | [address] | | | | | | | | +--------+ + + + + | 04/01/ | Appointment | Oncology | Deny Mcmanus, | | | 2019 | | | [address] | | | | | | [place], | | | | | | [place] [address] | | | | | | [phone] | | | | | | | | +--------+ + + + + | 04/08/ | Procedure | Physical Medicine | Leonard De Leon | | | 2019 | visit | and Rehabilitation | T, [address] | | | | | | [place] | | | | | | [address] | | | | | | | | +--------+ + + + + | 04/30/ | Office | Cardiology | Shad Saavedra, | | | 2019 | Visit | | [address] | | | | | | [place], | | | | | | [place] [address] | | | | | | [phone] | | | | | | | | +--------+ + + + + documented as of this encounter Visit Diagnoses + + | Diagnosis | + + | Chronic midline low back pain, with sciatica presence unspecified - Primary | + + | Need for vaccination with 13-polyvalent pneumococcal conjugate vaccine | + + | Chronic myeloid leukemia, BCR/ABL-positive, not having achieved remission (HCC) | | Chronic myeloid leukemia, without mention of having achieved remission | + + documented in this encounter
--- OUTSIDE RECORDS SUMMARY | ~2020-03-13 | XMS | Encounter Summary ---
Demographics + + + | Address | [address] | | | [place] [address] | + + + | Home Phone [...] Team Providers + +------+ + | Care Oral Health Therapist Name | Role | Phone | + +------+ + | Burton Masters MD | PCP | | + +------+ + Reason for Visit +---------+ + | Reason | Comments | +---------+ + | No Show | | +---------+ + Encounter Details +--------+ + + + + | Date | Type | Department | Care Team | Description | +--------+ + + + + | 01/10/ | Documentati | [facility] | Ashley Moore, | No Show | | 2017 | on | [facility] | MACHINE PLUG SHAPER [address] | | | | | [address] [place] | [place], [place] | | | | | [place] [address] | [address] | | | | | [phone] | [phone] | | | | | | | [...] documented as of this encounter Progress Notes Ashley Moore PTA - 01/10/2017 8:39 [facility] [address] [place] [address] Cancellation/No Show Date: 01/10/2017 Patient Information Patient Name: Ashley Webb Date of : 1985 Age: 31 y.o. Reason for missed visit: Unknown- No Show Phone call placed: Yes- but her phone number is no longer working. Plan: Will see at next scheduled visit. Electronically signed by: Ashley Moore PTA, 01/10/2017 8:39 Patient Name: Ashley Webb/: 1985/ documented in this encounter Plan of Treatment [...] [place] | | | | | | [address] | | | | | | | | +--------+ + + + + | 03/18/ | Office | Physical Medicine | Jovana Dawson | | | 2019 | Visit | and Rehabilitation | MELANY Man [address] | | | | | | [address] [facility] | | | | | | [address] [place] | | | | | | [address] | | | | | | | | +--------+ + + + + | 04/01/ | Appointment | Oncology | Deny Mcmanus, | | 2019 | | | [address] | | | | | | [address] [place] | | | | | | [place] [address] | | | | | | [phone] | | | | | | | | +--------+ + + + + | 04/08/ | Procedure | Physical Medicine | Leonard De Leon | | 2019 | visit | and Rehabilitation | MD [address]iki Win | | | | | | [place] | | | | | | [address] | | | | | | | | +--------+ + + + + | 04/30/ | Office | Cardiology | Shad Saavedra, | | | 2019 | Visit | | MD [address] | | | | | | [place], | | | | | | [place] [address] | | | | | | [phone] | | | | | | | | +--------+ + + + + documented as of this encounter Visit Diagnoses Not on filedocumented in this encounter"
--- OUTSIDE RECORDS SUMMARY | ~2020-03-13 | XMS | Encounter Summary ---
Demographics + + + | Address | [address] | | | [place] [address] | + + + | Home Phone | | + + + | Preferred Language | Unknown | + + + | Marital Status | | + + + | Jain Affiliation | Unknown | + + + | Race | Unknown | + + + | Ethnic Group | Unknown | + + + Author + + + | Author | [facility] | | | and [place] | + + + | Organization | [facility] | | | [...] Team Providers + +------+ + | Care Lacquer Dipping Machine Operator Name | Role | Phone [...] | +--------+ + + + + | 03/12/ | Hospital | [facility] | Dorota Beal | | | 2018 | Encounter | MED CTR [facility] | DO [address] | | | | | [address] | [address] [facility] | | | | | [place], [place] | [place] [address] | | | | | [address] | [phone] | | | | | [phone] | | | +--------+ + + + [...] + + + | Blood Pressure | 112/79 | 01/15/2018 12:16 PM | | | | | PDT | | + + + + + | Pulse | 99 | 01/15/2018 12:24 PM | | | | | PDT | | + + + + + | Temperature | 36.5 C (97.7 F) | 01/15/2018 11:27 AM | | | | | PDT | | + + + + + | Respiratory Rate | 20 | 01/15/2018 11:27 AM | | | | | PDT | | + + + + + | Oxygen Saturation | 99% | 01/15/2018 12:24 PM | | | | | PDT [...] documented in this encounter Discharge Instructions Instructions Deepthi Pereira RN - 01/15/2018Discharge Education for the Undelivered Patient You can [...] [place] | | | | | | [id number] | | | | | | | | +--------+ + + + + | 03/18/ | Office | Physical Medicine | Jovana Dawson | | | 2019 | Visit | and Rehabilitation | MELANY Man [address] | | | | | [address] | | | | | | [address] [place] | | | | | | [address] | | | | | | | | +--------+ + + + + | 04/01/ | Appointment | Oncology | Deny Mcmanus, | | | 2019 | | | [address] | | | | | | [place], | | | | | | [place] [address] | | | | | | [phone] | | | | | | | | +--------+ + + + + | 04/08/ | Procedure | Physical Medicine | Leonard De Leon | | | 2019 | visit | and Rehabilitation | T, [address] | | | | | | [place] | | | | | | [address] | | | | | | | | +--------+ + + + + | 04/30/ | Office | Cardiology | Shad Saavedra, | | | 2019 | Visit | | [address] | | | | | | [place], | | | | | | [place] [address] | | | | | | [phone] | | | | | | | | +--------+ + + + + documented as of this encounter Visit Diagnoses Not on filedocumented in this encounter"
--- OUTSIDE RECORDS SUMMARY | ~2020-03-13 | XMS | Encounter Summary ---
Demographics + + + | Address | [address] | | | [place] [address] | + + + | Home Phone [...] Providers + +------+ + | Care Human Service Coordinator Name | Role | Phone | [...] | +--------+ + + + + | 06/07/ | Telephone | [facility] | Deny Mcmanus, | Care Coordination | | 2019 | | MED CTR [facility] | [address] | | | | | [facility] [address] [place], | | | | | [address] [place] | [place] [address] | | | | | [place] [address] | [phone] | | | | | [phone] | | | +--------+ + + + [...] | | | Visit | | [address] [facility] [address] | | | | | | [place] | | | | | | [id number] | | | | | | | | +--------+ + + + + | 03/18/ | Office | Physical Medicine | Jovana Dawson | | | 2019 | Visit | and Rehabilitation | [address] | | | | | | [facility] | | | | | | [address] [place] | | | | | | [id number] | | | | | | | | +--------+ + + + + | 04/01/ | Appointment | Oncology | Deny Mcmnaus, | | 2019 | | | MD [address] | | | | | | [address] [place] | | | | | | [place] [address] | | | | | | [phone] | | | | | | | | +--------+ + + + + | 04/08/ | Procedure | Physical Medicine | Leonard De Leon | | | 2019 | visit | and Rehabilitation | MD [address] | | | | | | [place] | | | | | | [address] | | | | | | | | +--------+ + + + + | 04/30/ | Office | Cardiology | Shad Saavedra, | | | 2019 | Visit | | [address] | | | | | | [place], | | | | | | [place] [address] | | | | | | [phone] | | | | | | | | +--------+ + + + + documented as of this encounter Visit Diagnoses Not on filedocumented in this encounter"
--- OUTSIDE RECORDS SUMMARY | ~2020-03-13 | XMS | Encounter Summary ---
Demographics + + + | Address | [address] | | | [place] [address] | + + + | Home Phone [...] Team Providers + +------+ + | Care Backend Developer Name | Role | Phone | + +------+ + | Burton Masters MD | PCP | | + +------+ + Reason for Visit +--------+ + | Reason | Comments | +--------+ + | Forms | | +--------+ + Encounter Details +--------+ + + + + | Date | Type | Department | Care Team | Description | +--------+ + + + + | 05/21/ | Telephone | [facility] | Burton Masters, | Forms | | 2019 | | [facility] | [address] | | | | | [address] | [place] | | | | | [place] | [address] | | | | | [address] | | | | | | [phone] | | | +--------+ + + + [...] [place] | | | | | | [address] | | | | | | | | +--------+ + + + + | 03/18/ | Office | Physical Medicine | Jovana Dawson | | | 2019 | Visit | and Rehabilitation | MELANY Man [address] | | | | | | [address] | | | | | | [address] [place] | | | | | | [address] | | | | | | | | +--------+ + + + + | 04/01/ | Appointment | Oncology | Deny Mcmanus, | | 2019 | | | [address] | | | | | | [address] [place] | | | | | | [place] [address] | | | | | | [phone] | | | | | | | | +--------+ + + + + | 04/08/ | Procedure | Physical Medicine | Leonard De Leon | | | 2019 | visit | and Rehabilitation | MD [address]iki Win | | | | | | [place] | | | | | | [address] | | | | | | | | +--------+ + + + + | 04/30/ | Office | Cardiology | Shad Saavedra, | | | 2019 | Visit | | MD [address] | | | | | | [place] | | | | | | [place] [address] | | | | | | [phone] | | | | | | | | +--------+ + + + + documented as of this encounter Visit Diagnoses Not on filedocumented in this encounter"
--- OUTSIDE RECORDS SUMMARY | ~2020-03-13 | XMS | Encounter Summary ---
Demographics + + + | Address | [address] | | | [place] [address] | + + + | Home Phone [...] Team Providers + +------+ + | Care Sofa Inspector Name | Role | Phone | + +------+ + | Burton Masters MD | PCP | | + +------+ + Reason for Visit +---------+ + | Reason | Comments | +---------+ + | Dysuria | | +---------+ + Encounter Details +--------+ + + + + | Date | Type | Department | Care Team | Description | +--------+ + + + + | 09/09/ | Emergency | [facility] | Leonard Aguila | Urinary tract | | 2019 | | [facility] | Suresh, [address] | infection without | | | | CENTER [address] | [address] [place] | hematuria, site | | | | [place], [place] | [place] [address] | unspecified (Primary | | | | [address] | [phone] | Dx) | | | | [phone] | | | +--------+ + + + [...] documented as of this encounter Discharge Instructions AttachmentsThe following attachments cannot be sent through Care Everywhere.Urinary Tract I nfections in Women (Uzbek)documented in this encounter Medications at Time of [...] cephalexin | Take 1 capsule by | 14 | 0 | 07/15/20 | | | (KEFLEX) 500 mg | mouth 2 times daily | capsule | | 19 | 9 | | capsule | for 7 days. [...] tablet by | 90 | 0 | 07/12/20 | | | (ROXICODONE) 5 mg | mouth every 8 hours | tablet | | 19 | 9 | | tablet | as needed for Pain. | | | | | + + + +---------+ + + | phenazopyridine | Take 1 tablet by | 6 | 0 | 07/15/20 | | | (PYRIDIUM) 200 mg | mouth 3 times daily | tablet | | 19 | 9 | | tablet | as needed for Pain | | | | | | | or Urinary Symptoms. | | | | | + + [...] [address] | | | | | | [address] | | | | | | [address] [place] | | | | | | [address] | | | | | | | | +--------+ + + + + | 04/01/ | Appointment | Oncology | Deny Mcmanus, | | | 2019 | | | [address] | | | | | | [place], | | | | | | [place] [address] | | | | | | [phone] | | | | | | | | +--------+ + + + + | 04/08/ | Procedure | Physical Medicine | Leonard De Leon | | | 2019 | visit | and Rehabilitation | T, [address] | | | | | | [place] | | | | | | [address] | | | | | | | | +--------+ + + + + | 04/30/ | Office | Cardiology | Shad Saavedra, | | | 2019 | Visit | | [address] | | | | | | [place], | | | | | | [place] [address] | | | | | | [phone] | | | | | | | | +--------+ + + + + + +------+--------+ + + | Name | Type | Priori | Associated Diagnoses | Date/Time | | | | ty | | | + +------+--------+ + + | ED INFORMATION | KEYUR | Routin | | 07/15/2019 8:07 AM | | EXCHANGE | | e | | PDT | + +------+--------+ + + documented as of this encounter Procedures + +--------+ + + + | Procedure Name | Priori | Date/Time | Associated Diagnosis | Comments | | | ty | | | | + +--------+ + + + | POCT TEST, | STAT | 07/15/2019 | | Results for this | | URINE, QUAL | | 8:17 AM | | procedure are in the | | | | PDT | | results section. | + +--------+ + + + | URINALYSIS WITH | STAT | 07/15/2019 | | Results for this | | MICROSCOPIC WITH | | 8:12 AM | | procedure are in the | | CULTURE IF INDICATED | | PDT | | results section. | + +--------+ + + + | CULTURE, URINE | STAT | 07/15/2019 | | Results for this | | | | 8:12 AM | | procedure are in the | | | | PDT | | results section. | + +--------+ + + + | C. TRACHOMATIS AND | Add-On | 07/15/2019 | | Results for this | | N. GONORRHOEAE, NAAT | | 8:12 AM | | procedure are in the | | ([facility]) | | PDT | | results section. | + +--------+ + + + documented in this encounter Results POCT Test, Urine, QUAL (07/15/2019 8:17 AM PDT) + + + + + [...] + | Internal QC | Acceptable | Acceptable | | | + + + + + + | Specific | | 1.010, 1.015, | | | | [place], | | 1.020, 1.025 | | | | POC | | | | | + + + + + + | Lot Number | [id number] | | | | + + + + + + | Expiration | 11/08/2020 | | | | | Date | | | | | + + + + + + + + | Specimen | + + | Urine | + + Culture, Urine (07/15/2019 8:12 AM PDT) + + + + + [...] | Escherichia coli | Nitrofurantoin | | 64 ug/mL: | | | | | Intermediate | + + +--------+ + | Escherichia coli | Tobramycin | | <=1 ug/mL: | | | | | Sensitive | + + +--------+ + | Escherichia coli | Trimethoprim + | | >=320 ug/mL: | | | Sulfamethoxazole | | Resistant | + + +--------+ + + + + + + | Performing | Address | City/State/Zipcode | Phone Number | | Organization | | | | + + + + + | [facility] | [address] | [place] | [phone] | | [facility] | | [address] | | | - LABORATORY | | | | + + + + + C. trachomatis and N. gonorrhoeae, NAAT ([facility]TIM[facility]) (07/15/2019 8:12 AM PDT) + + + + + + | Component | Value | Ref Range | Performed | Pathologist | | | | | At | Signature | + + + + + + | Chlamydia | Negative | Negative | REFERENCE | | | trachomatis | | | LAB [facility] | | | PCR | | | - BKR | | + + + + + + | Neisseria | Negative | Negative | REFERENCE | | | Gonorrhoeae | | | LAB [facility] | | | DNA PCR | | | - BKR | | + + + + + + + + | Specimen | + + | Urine - Urine | | specimen (specimen) | + + + + + | Narrative | Performed At | + + + | Performed at: - [facility] [address], | REFERENCE LAB | | [place], [place] [id number] Coat Fitter: Marques Ya MD, Phone: | [facility] | | [phone] | | + + + + + + + + | Performing | Address | City/State/Zipcode | Phone Number | | Organization | | | | + + + + + | REFERENCE LAB | [address] | [place], [place] | [phone] | | [facility] | [address] [facility] | [address] | | + + + + + Urinalysis with Microscopic with Culture if Indicated (07/15/2019 8:12 AM PDT) + + + + + [...] + + + + | Clarity | Cloudy (A) | Clear | [facility] | | [...] + + + + | Specific | 1.018 | 1.001 - 1.030 | [facility] | | | [place], | | | [facility] | | [...] + + + + | Leukocyte | Large (A) | Negative | [facility] | | [...] + + + | White Blood | >100 (A) | 0 - 2 /HPF | [facility] | | | Cells, | | | [facility] | | | Urine | | | MEDICAL | | | | | | CENTER - | | | | | | LABORATORY | | + + + + + + | White Blood | Few (A) | None Seen /HPF | [facility] | | | Cell | | | [facility] | | | Clumps, | | | MEDICAL | | | Urine | | | CENTER - | | | | | | LABORATORY | | + + + + + + | Red Blood | 50-100 (A) | 0 - 2 /HPF | [facility] | | | Cells, | | | [facility] | | | Urine | | | MEDICAL | | | | | | CENTER - | | | | | | LABORATORY | | + + + + + + | Squamous | 0-2 | 0 - 2 /LPF | [facility] [...] | | Urine | | | [facility] | | [...] [address] | [place] | [phone] | | [facility] | | [address] | | | - LABORATORY | | | | + + + + + documented in this encounter Visit Diagnoses + + | Diagnosis | + + | Urinary tract infection without hematuria, site unspecified - Primary | + + documented in this encounter"
--- OUTSIDE RECORDS SUMMARY | ~2020-03-13 | XMS | Encounter Summary ---
Demographics + + + | Address | [address] | | | [place] [address] | + + + | Home Phone [...] Team Providers + +------+ + | Care Shaper Operator Name | Role | Phone | + +------+ + | Burton Masters MD | PCP | | + +------+ + Reason for Visit + + + | Reason | Comments | + + + | Back Pain | | + + + | Shoulder Pain | right sided, posterior, 3 days | + + + | Neck Pain | right sided into shoulder, 3 days | + + + | URI | | + + + Encounter Details +--------+---------+ + + + | Date | Type | Department | Care Team | Description | +--------+---------+ + + + | 08/08/ | Office | [facility] | Burton Masters, | DDD (degenerative | | 2018 | Visit | MEDICINE [facility] | [address] | disc disease), | | | | [address] | [place], [place] | lumbar (Primary Dx); | | | | [place] | [address] | Neck pain on right | | | | [address] | | side; Acute pain of | | | | [phone] | | right shoulder; | | | | | | Upper respiratory | | | | | | tract infection, | | | | | | unspecified type; | | | | | | Lumbar radiculopathy | | | | | | - left lower | | | | | | extremity; Chronic | | | | | | midline low back | | | | | | pain, with sciatica | | | | | | presence unspecified | +--------+---------+ + + + Social [...] + + + | Blood Pressure | 114/86 | 08/08/2018 9:58 AM | | | | | PDT | | + + + + + | Pulse | 104 | 08/08/2018 9:58 AM | | | | | PDT | | + + + + + | Temperature | 36.7 C (98.1 F) | 08/08/2018 9:58 AM | | | | | PDT | | + + + + + | Respiratory Rate | - | - | | + + + + + | Oxygen Saturation | 98% | 08/08/2018 9:58 AM | | | | | PDT | | + + + + + | Inhaled Oxygen | - | - | | | Concentration | | | | + + + + + | Weight | 93.9 kg (207 lb 0.2 | 08/08/2018 9:58 AM | | | | oz) | PDT | | + + + + + | Height | - | - | | + + + + + | Body Mass Index | 31.48 | 07/30/2018 11:06 AM | | | | | PDT | | + + + + + documented in this encounter Progress Notes Burton Masters MD - 08/08/2018 10:00 AM PDTFormatting of this note might be different f rom the original. Subjective: Patient ID: Ashley Webb is a 33 y.o. female. Chief Complaint Patient presents with Back Pain Shoulder Pain right sided, posterior, 3 days Neck Pain right sided into shoulder, 3 days URI Back Pain This is a chronic problem. The current episode started more than 1 year ago. The problem oc curs constantly. The problem is unchanged. The pain is present in the lumbar spine. The pain is at a severity of 5/10. The pain is moderate. Shoulder Pain The right shoulder is affected. The incident occurred 2 days ago. There was no injury [facility]. Neck Pain This is a new problem. The current episode started in the past 7 days. The problem has been unchanged. The pain is at a severity of 5/10. The pain is moderate. URI This is a new problem. The current episode started 1 to 4 weeks ago. The problem has been u nchanged. There has been no fever. Associated symptoms include congestion, ear pain and neck pain. Past Medical History: Diagnosis Date Abdominal [...] 3 Years of education: 15 Occupational History [employer] Social History Main Topics Smoking status: Current Every Day Smoker Packs/day: 0.25 Years: 16.00 Types: Cigarettes Start date: 03/03/2001 Smokeless tobacco: Never Used Alcohol use 0.0 oz/week Comment: RARE Drug use: No Sexual activity: Yes Other Topics Concern None Social History Narrative Merged History Encounter Review of Systems Constitutional: Negative. HENT: Positive for congestion and ear pain. Eyes: Negative. Respiratory: Negative. Cardiovascular: Negative. Gastrointestinal: Negative. Genitourinary: Negative. Musculoskeletal: Positive for back pain and neck pain. Skin: Negative. Neurological: Negative. Endo/Heme/Allergies: Negative. Psychiatric/Behavioral: Negative. . Objective: BP 114/86 | Pulse 104 | Temp 36.7 C (98.1 F) (Temporal) | Wt 93.9 kg (207 lb 0.2 oz) | LMP 07/23/2018 | SpO2 98% | ? No | BMI 31.48 kg/m Physical Exam Constitutional: She is well-developed, well-nourished, and in no distress. HENT: Head: Normocephalic and atraumatic. L. Tm effusion and otherwise normal. Eyes: Right eye exhibits no discharge. Left eye exhibits no discharge. Neck: No tracheal deviation present. Cardiovascular: Regular rhythm. Pulmonary/Chest: Effort normal. No respiratory distress. She has no wheezes. She has no ral es. She exhibits no tenderness. Abdominal: She exhibits no distension. Musculoskeletal: She exhibits no edema. Neurological: She is alert. Skin: Skin is dry. She is not diaphoretic. Psychiatric: Affect normal. Assessment/Plan: 1. DDD (degenerative disc disease), lumbar 2. Neck pain on right side 3. Acute pain of right shoulder 4. Upper respiratory tract infection, unspecified type Requested Prescriptions Signed Prescriptions Disp Refills azithromycin (ZITHROMAX) 500 MG tablet 5 tablet 0 Sig: Take 1 tablet by mouth Daily for 5 days. methylPREDNISolone (MEDROL DOSEPAK) 4 mg tablet 21 tablet 0 Sig: follow package directions HYDROcodone-acetaminophen (NORCO) 5-325 mg per tablet 90 tablet 0 Sig: Take 1 tablet by mouth every 8 hours as needed for Pain. ALPRAZolam (XANAX) 0.25 mg tablet 20 tablet 1 Sig: Take 1-2 tablets by mouth Twice daily as needed for Anxiety. New Prescriptions AZITHROMYCIN (ZITHROMAX) 500 MG TABLET Take 1 tablet by mouth Daily for 5 days. METHYLPREDNISOLONE (MEDROL DOSEPAK) 4 MG TABLET follow package directions Discussed that in the future we will need to reduce opiates. documented in this encounter Plan of Treatment [...] [place] | | | | | | [address] | | | | | | | | +--------+ + + + + | 03/18/ | Office | Physical Medicine | Jovana Dawson | | | 2019 | Visit | and Rehabilitation | MELANY Man [address] | | | | | | [address] [facility] | | | | | | [address] [place] | | | | | | [address] | | | | | | | | +--------+ + + + + | 04/01/ | Appointment | Oncology | Deny Mcmanus, | | 2019 | | | [address] | | | | | | [place] | | | | | | [place] [address] | | | | | | [phone] | | | | | | | | +--------+ + + + + | 04/08/ | Procedure | Physical Medicine | Leonard De Leon | | | 2019 | visit | and Rehabilitation | MD Kiki Win | | | | | | [place], [place] | | | | | | [address] | | | | | | | | +--------+ + + + + | 04/30/ | Office | Cardiology | Shad Saavedra, | | | 2019 | Visit | | MD [address] | | | | | | [facility], | | | | | | [place] [address] | | | | | | [phone] | | | | | | | | +--------+ + + + + documented as of this encounter Visit Diagnoses + + | Diagnosis | + + | DDD (degenerative disc disease), lumbar - Primary Degeneration of lumbar or | | lumbosacral intervertebral disc | + + | Neck pain on right side Cervicalgia | + + | Acute pain of right shoulder | + + | Upper respiratory tract infection, unspecified type | + + | Lumbar radiculopathy - left lower extremity Thoracic or lumbosacral neuritis or | | radiculitis, unspecified | + + | Chronic midline low back pain, with sciatica presence unspecified | + + documented in this encounter"
--- OUTSIDE RECORDS SUMMARY | ~2020-03-13 | XMS | Encounter Summary ---
Demographics + + + | Address | [address] | | | [place] [address] | + + + | Home Phone [...] Team Providers + +------+ + | Care Air Support Operations Operator Name | Role | Phone | [...] | Required | Rehabilitatio | depression | [address] | [address] | | | | n | Back pain, | [address] | [address] | | | | | unspecified | [place], | [place], | | | | | back | [place] [address] | [place] [address] | | | | | location, | Phone: | Phone: | | | | | unspecified | [phone] | [phone] | | | | | back pain | Fax: | Fax: | | | | | laterality, | [phone] | [phone] | | | | | unspecified | | | | | | | chronicity | | | +--------+ + + + + + Diagnostic/Screening (Routine) +--------+--------+ + + + + | Status | Reason | Specialty | Diagnoses / | Referred By | Referred To | | | | | Procedures | Contact | Contact | +--------+--------+ + + + + | Closed | | Radiology | Diagnoses | Sonam, | [facility] | | | | | Back pain, | Burton D, | [address] | | | | | unspecified | MD [address] | [place], | | | | | back | [address] | [place] | | | | | location, | [place], | [address] | | | | | unspecified | [place] [address] | Phone: | | | | | back pain | Phone: | [phone] | | | | | laterality, | [phone] | Fax: | | | | | unspecified | Fax: | [phone] | | | | | chronicity | [phone] | | | | | | Procedures | | | | | | | MRI Lumbar | | | | | | | Spine wo | | | | | | | Contrast | | | +--------+--------+ + + + + Reason for Visit + + + | Reason | Comments | + + + | Establish Care | | + + + | Medication | | | Management | | + + + | Care | depression | + + + | Back Pain | chronic lower back pain, DDD | + + + Encounter Details +--------+---------+ + + + | Date | Type | Department | Care Team | Description | +--------+---------+ + + + | 11/30/ | Office | [facility] | Burton Masters, | Post | | 2017 | Visit | [facility] | [address] | depression (Primary | | | | [address] | [place] | Dx); Back pain, | | | | [place] | [address] | unspecified back | | | | [address] | | location, | | | | [phone] | | unspecified back | | | | | | pain laterality, | | | | | | unspecified | | | | | | chronicity | +--------+---------+ + + + Social History [...] + + + | Blood Pressure | 104/82 | 11/30/2016 10:02 AM | | | | | PST | | + + + + + | Pulse | 64 | 11/30/2016 10:02 AM | | | | | PST | | + + + + + | Temperature | 36.2 C (97.2 F) | 11/30/2016 10:02 AM | | | | | PST | | + + + + + | Respiratory Rate | 16 | 11/30/2016 10:02 AM | | | | | PST | | + + + + + | Oxygen Saturation | 97% | 11/30/2016 10:02 AM | | | | | PST | | + + + + + | Inhaled Oxygen | - | - | | | Concentration | | | | + + + + + | Weight | 96.2 kg (212 lb) | 11/30/2016 10:02 AM | | | | | PST | | + + + + + | Height | 172.7 cm (5' 8") | 11/30/2016 10:02 AM | | | | | PST | | + + + + + | Body Mass Index | 32.23 | 11/30/2016 10:02 AM | | | | | PST | | + + + + + documented in this encounter Progress Notes Burton Masters MD - 12/05/2016 3:58 PM PSTFormatting of this note might be different f rom the original. Subjective: Patient ID: Ashley Webb is a 31 y.o. female. Back Pain This is a recurrent problem. The current episode started more than 1 year ago. The problem has been waxing and waning since onset. The pain is at a severity of 6/10. The pain is moder ate. Pertinent negatives include no abdominal pain, bowel incontinence, headaches, paresis o r paresthesias. She has tried nothing for the symptoms. Past Medical History Diagnosis Date Anxiety Depression [...] Repeat ; Surgeon: Dorota Beal DO; Location: [facility] MAIN OR Family History Problem Relation Age of Onset [...] Prior to Visit Medication Sig Dispense Refill diphenhydrAMINE (BENADRYL) 25 mg tablet Take 25 mg by mouth every 6 hours as needed for Itching. docusate sodium (COLACE) 100 MG capsule Take 100 mg by mouth 2 times daily. 60 capsule 1 ibuprofen (ADVIL,MOTRIN) 600 MG tablet Take 1 tablet by mouth every 6 hours as needed f or Pain. 40 tablet 0 Mngfhqrm-Zag-Dc-FA (PRE- PO) Take 1 tablet by mouth Daily. No current facility-administered medications on file prior to visit. No Known Allergies Review of Systems Gastrointestinal: Negative for abdominal pain and bowel incontinence. Musculoskeletal: Positive for back pain. Neurological: Negative for headaches and paresthesias. Objective: Physical Exam Assessment: 1. Post depression * [facility] Physical Therapy - AMB Referral 2. 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 Answer: [facility] ([facility] [place]) * [facility] Physical Therapy - AMB Referral Referral Priority: Routine Referral Type: Evaluate & Treat Referral Reason: Specialty Services Required Requested Specialty: Physical Therapy Number of Visits Requested: 1 Current Outpatient Prescriptions Medication Sig Dispense Refill buPROPion (WELLBUTRIN SR) 150 mg 12 hr tablet 1 tablet by mouth bid. 180 tablet 0 diphenhydrAMINE (BENADRYL) 25 mg tablet Take 25 mg by mouth every 6 hours as needed for Itching. docusate sodium (COLACE) 100 MG capsule Take 100 mg by mouth 2 times daily. 60 capsule 1 HYDROcodone-acetaminophen (NORCO) 5-325 mg per tablet Take 1 tablet by mouth every 12 h ours as needed for Pain. 60 tablet 0 ibuprofen (ADVIL,MOTRIN) 600 MG tablet Take 1 tablet by mouth every 6 hours as needed f or Pain. 40 tablet 0 Cpisxafx-Mgd-Qy-FA (PRE-CHIDI PO) Take 1 tablet by mouth Daily. No current facility-administered medications for this visit. documented in this encounter Plan of Treatment [...] [place] | | | | | | [id number] | | | | | | | | +--------+ + + + + | 03/18/ | Office | Physical Medicine | Jovana Dawson | | | 2019 | Visit | and Rehabilitation | MELANY Man [address] | | | | | | [address] [facility] | | | | | | [address] [place] | | | | | | [address] | | | | | | | | +--------+ + + + + | 04/01/ | Appointment | Oncology | Deny Mcmanus, | | 2019 | | | MD [address] | | | | | | [facility] [place], | | | | | | [place] [address] | | | | | | [phone] | | | | | | | | +--------+ + + + + | 04/08/ | Procedure | Physical Medicine | Leonard De Leon | | | 2019 | visit | and Rehabilitation | MD Audelia [address] | | | | | | [place] | | | | | | [address] | | | | | | | | +--------+ + + + + | 04/30/ | Office | Cardiology | Shad Saavedra, | | | 2019 | Visit | | [address] | | | | | | [place], | | | | | | [place] [address] | | | | | | [phone] | | | | | | | | +--------+ + + + + + + +--------+ + + | Name | Type | Priori | Associated Diagnoses | Order Schedule | | | | ty | | | + + +--------+ + + | * [facility] | Outpatient | Routin | Post | Ordered: 11/30/2016 | | Therapy - AMB | Referral | e | depression Back | | | Referral | | | pain, unspecified | | [...] | + +--------+ + + + | PATHOLOGY - EXTERNAL | | 03/22/2016 | | Results for this | | SCAN | | 12:00 AM | | procedure [...] LUMBAR SPINE WITHOUT CONTRAST CLINICAL INFORMATION: | PROVIDEDAYANAE | | Lower back and left leg pain. COMPARISON: No comparisons | [facility] | | PROCEDURE: Sagittal T2, axial T2, sagittal T1, axial T1, sagittal | [facility] | | STIR sequences. FINDINGS: Alignment: Normal. [...] only. | | | | Signed by: Freeodm Valdes | | Report sent: 12/14/2016 11:03:00 AM | | | | Dictated and Signed by: Oleg Jones MD | | Electronically signed: 12/14/2016 11:37 AM | + + + + + + + | Performing | Address | City/State/Zipcode | Phone Number | | Organization | | | | + + + + + | [facility] | [address] | [place] | [phone] | | [facility] | | [address] | | | - IMAGING | | | | + + + + + PATHOLOGY - EXTERNAL SCAN (03/22/2016 12:00 AM PDT) + + + | Narrative | Performed At | + + + | Ordered by an | | | unspecified provider. 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
--- OUTSIDE RECORDS SUMMARY | ~2020-03-13 | XMS | Encounter Summary ---
Demographics + + + | Address | [address] | | | [place] [address] | + + + | Home Phone [...] Team Providers + +------+ + | Care Staff Certified Nurse Midwife Name | Role | Phone | + [...] + + | 04/26/ | Telephone | [facility] | Deny Mcmanus, | Other | | 2019 | | [facility] | [address] | | | | | [facility] [address] [place], | | | | | [address] [place] | [place] [address] | | | | | [place] [address] | [phone] | | | | | [phone] | | | +--------+ + + + [...] [place] | | | | | | [address] | | | | | | | | +--------+ + + + + | 03/18/ | Office | Physical Medicine | Jovana Dawson | | | 2019 | Visit | and Rehabilitation | M[address] | | | | | | [address] | | | | | | [address] [place] | | | | | | [address] | | | | | | | | +--------+ + + + + | 04/01/ | Appointment | Oncology | Deny Mcmanus, | | | 2019 | | | [address] | | | | | | [address] [place] | | | | | | [place] [address] | | | | | | [phone] | | | | | | | | +--------+ + + + + | 04/08/ | Procedure | Physical Medicine | Leonard De Leon | | | 2019 | visit | and Rehabilitation | MD [address] | | | | | | [place] | | | | | | [address] | | | | | | | | +--------+ + + + + | 04/30/ | Office | Cardiology | Shad Saavedra, | | | 2019 | Visit | | MD [address] | | | | | | [place] | | | | | | [place] [address] | | | | | | [phone] | | | | | | | | +--------+ + + + + documented as of this encounter Visit Diagnoses Not on filedocumented in this encounter"
--- OUTSIDE RECORDS SUMMARY | ~2020-03-13 | XMS | Encounter Summary ---
Demographics + + + | Address | [address] | | | [place] [address] | + + + | Home Phone [...] Team Providers + +------+ + | Care Coke Crusher Operator Name | Role | Phone | + +------+ + | Nhi Oneal MD | PCP | | + +------+ + Encounter Details +--------+ + + + + | Date | Type | Department | Care Team | Description | +--------+ + + + + | 02/25/ | Orders Only | [facility] | Dominguez Ibarra, | Left shoulder pain | | 2013 | | ORTHOPEDIC SURGERY | PA-C [address] | (Primary Dx) | | | | [address] [facility] | [address] | | | | | [place] | [place] [address] | | | | | [address] | [phone] | | | | | [phone] | | | +--------+ + + + [...] | + + +---------+ + | Not Asked | | | | + + +---------+ [...] | | | | | [address] | | | | | | [...] | | | | | | [place] [address] | | | | | | [phone] | | | | | | | | +--------+ + + + + | 04/08/ | Procedure | Physical Medicine | Leonard De Leon | | 2019 | visit | and Rehabilitation | T, [address] | | | | | | [place] | | | | | | [address] | | | | | | | | +--------+ + + + + | 04/30/ | Office | Cardiology | Shad Saavedra, | | | 2019 | Visit | | [address] | | | | | | [place], | | | | | | [place] [address] | | | | | | [phone] | | | | | | | | +--------+ + + + + documented as of this encounter Visit Diagnoses + + | Diagnosis | + + | Left shoulder pain - Primary Pain in joint, shoulder region | + + documented in this encounter"
--- OUTSIDE RECORDS SUMMARY | ~2020-03-13 | XMS | Encounter Summary ---
Demographics + + + | Address | [address] | | | [place] [address] | + + + | Home Phone | | + + + | Preferred Language | Unknown | + + + | Marital Status | | + + + | Taoist Affiliation | Unknown | + + + | Race | Unknown | + + + | Ethnic Group | Unknown | + + + Author + + + | Author | [facility] | | | and [place] | + + + | Organization | [facility] | | | [...] Providers + +------+ + | Care Wireless Cellular Technician Name | Role | Phone | [...] | | | | BCR/ABL-posi | [address] | [place], | | | | | tive, in | [place], | [place] [address] | | | | | relapse | [place] | Phone: | | | | | (HCC) | [address] | [phone] | | | | | Chronic | Phone: | Fax: | | | | | myeloid | [phone] | [phone] | | | | | leukemia, | Fax: | | | | | | BCR/ABL-posi | [phone] | | | | | | tive, not | | | | | | | having | | | | | | | achieved | | | | | | | remission | | | | | | | (HCC) | | | | | | | Procedures | | | | | | | [place] OFFICE | | | | | | | OUTPATIENT | | | | | | | VISIT 25 | | | | | | | MINUTES | | | | | | | [address] | | | +--------+--------+ + + + + Encounter Details +--------+ + + + + | Date | Type | Department | Care Team | Description | +--------+ + + + + | 01/01/ | Hospital | [facility] | Deny Mcmanus, | Chronic myeloid | | 2020 | Encounter | [facility] | [address] | leukemia (HCC) | | | | ONCOLOGY CLINIC [address] [place], | (Primary Dx) | | | | [address] [place] | [place] [address] | | | | | [place] [address] | [phone] | | | | | [phone] | | | +--------+ + + + [...] + + + | Blood Pressure | 119/85 | 01/01/2020 11:26 AM | | | | | PST | | + + + + + | Pulse | 83 | 01/01/2020 11:26 AM | | | | | PST | | + + + + + | Temperature | 36.9 C (98.4 F) | 01/01/2020 11:26 AM | | | | | PST | | + + + + + | Respiratory Rate | 18 | 01/01/2020 11:26 AM | | | | | PST | | + + + + + | Oxygen Saturation | 99% | 01/01/2020 11:26 AM | | | | | PST | | + + + + + | Inhaled Oxygen | - | - | | | Concentration | | | | + + + + + | Weight | 72.5 kg (159 lb 13.3 | 01/01/2020 11:26 AM | | | | oz) | PST | | + + + + + | Height | - | - | | + + + + + | Body Mass Index | 24.3 | 10/29/2019 8:45 AM | | | [...] tablet by | 90 | 1 | 12/30/19 | | | (LAMICTAL) 25 mg | mouth Daily. | tablet | | 20 | | | tablet | | | [...] encounter Progress Notes Deny Mcmanus MD - 01/01/2020 11:40 AM PSTFormatting of this note might be different fr om the original. Hematology-Oncology Progress Note [facility] Pt. Name/Age/: Ashley Parra Webb 34 y.o. 1985 CSN: [id number] Date of service: 01/01/2020 Provider: Deny Mcmanus MD HEMATOLOGY/ONCOLOGY PROBLEM LIST: Chronic myeloid leukemia (CML), BCR/ABL-positive (HCC) 01/02/2019 Initial Diagnosis Chronic myeloid leukemia, BCR/ABL-positive, not having achieved remission (HCC) 01/04/2019 - 04/26/2019 Chemotherapy dasatinib - intolerant 04/29/2019 - Chemotherapy imatinib 11/25/2019 Remission Major molecular response Of note, above dates are not necessarily exact. Assessment and plan: Patient's prior symptoms unfortunately have not improved despite discontinuation of the aby tinib, proving that they are not related to that drug. In addition, after being off the emil g for just a month, she is starting to have appearance of the abnormal BCR/ABL product consi stent with lack of disease control. Therefore recommended that she reinitiate the imatinib at full dose, she is willing to do so. 1. Resume imatinib 400 mg daily. 2. Recheck with lab week beforehand in 3 months. Subjective: The patient chart and medications were reviewed in detail and the patient was seen and exam ined. Ashley Webb is a 34 y.o. female with chronic myelogenous leukemia seen in follow-up. Recall that when patient was seen a month ago, she was having ongoing issues with nausea an d vomiting, diarrhea, fatigue, etc. Given that these were similar to what she had when she was on dasatinib, we elected to stop the medication for a month and see what happened. Unfo rtunately, her symptoms have remained exactly the same, not even a little bit of improvement , also has a new issue of right foot drop at this point. 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 Drug use: Not Currently Types: Marijuana Sexual activity: Yes Partners: Male Social History Narrative Merged History Encounter Family [...] of Systems: REVIEW OF SYSTEMS Constitutional: Reports fatigue continues unchanged. Reports daily nausea and vomiting, con tinues unchanged. Reports low appetite, reports 4lb weight loss in the last few days per lily rt record shows 11lb weight loss in the last 2 days. Denies high fevers, shaking chills, ano rexia or night sweats. Ear, Nose, Mouth, Throat: Denies odynophagia, dysphagia, or tinnitus. Cardiovascular: Reports gets short of breath easily, states due to smoking. Denies chest pa in, palpitations or orthopnea. Respiratory: Reports productive cough, states due to smoking, color clear or white, continu es unchanged.Denies hemoptysis, or sputum production. Gastrointestinal: Reports daily diarrhea continues, number of times dependent on oral intak e. Denies abdominal pain, constipation, melena, or bright red blood per rectum. Genitourinary: Denies hematuria or dysuria. Musculoskeletal: Reports generalized joint pain "from the neck down", rates 4/10, describes as constant nagging pain. Reports right foot drop noticed one month ago, states saw PCP and will be getting MRI today. Neurologic: Reports numbness to right lower leg, starting one month ago. Denies headache, v isual changes. Endocrine: Denies peripheral edema or heat/cold intolerance. Hematologic: Reports bruises easy, continues unchanged. Integumentary: Reports "breakdown" to sacral area, continues unchanged. . Pain: Reports generalized joint pain "from the neck down", rates 4/10, describes as constan t nagging pain. Note: here for follow up My chart: Active Medications: Current Outpatient Medications Medication Sig buPROPion (WELLBUTRIN) 100 mg tablet Take 1 tablet by mouth 2 times daily. cloNIDine (CATAPRES) 0.1 mg tablet take 1 tablet by mouth every 6 hours if needed diphenoxylate-atropine (LOMOTIL) 2.5-0.025 mg per tablet Take 2 tablets for diarrhea, t hen one tablet every 2 hours as needed. hydrOXYzine hydrochloride (ATARAX) 25 mg tablet take 1 to 2 tablet by mouth every 6 gerardo rs imatinib (GLEEVEC) 400 mg tablet Take 400 mg by mouth Daily. lamoTRIgine (LAMICTAL) 25 mg tablet Take 1 tablet by mouth Daily. loperamide (IMODIUM A-D) 2 MG tablet 2 tablets by mouth followed by 1 tablet by mouth a fter each loose stool; Max 16 mg/day nortriptyline (PAMELOR) 25 mg capsule take 1 capsule by mouth nightly ondansetron (ZOFRAN) 8 MG tablet Take 1 tablet by mouth every 8 hours as needed for Niraj sea. oxyCODONE (ROXICODONE) 5 mg tablet Take 1.5 tablets by mouth every 8 hours as needed fo r Pain. prochlorperazine 10 mg tablet Take 1 tablet by mouth every 8 hours as needed. No current facility-administered medications for this encounter. Allergies: Allergies Allergen Reactions Tape [Adhesive & Tape] Rash Vitals: Temp: 36.9 C (98.4 F) BP: 119/85 Pulse: 83 Resp: 18 SpO2: 99 % on Temp :Temp Av.9 C (98.4 F) Min: 36.9 C (98.4 F) Max: 36.9 C (98.4 F) Wt. Current: Weight: 72.5 kg (159 lb 13.3 oz) Physical Exam: ECOG Performance Status: 1 2 General: The patient is alert and oriented. No acute distress. Psychiatric: Normal mood and affect. Appropriate. Diagnostic studies: Available data and image reports were reviewed personally. See reports. Significant resul ts and findings are addressed here or in the Assessment and Plan. Component Latest Ref Rng & Units 12/25/2019 12/25/2019 11:06 AM 11:06 AM WBC 4.0 - 11.0 K/uL 11.3 (H) RBC COUNT 3.70 - 5.20 M/uL 4.26 TOTAL Hemoglobin 11.5 - 16.0 g/dL 14.3 Hematocrit 34.0 - 47.0 % 40.8 MCV 83.0 - 101.0 fL 95.8 MCH 28.0 - 35.0 pg 33.6 MCHC 32.0 - 36.0 g/dL 35.0 RDW-CV <15.0 % 13.2 RDW-SD 35.1 - 46.3 fL 46.9 (H) Platelet Count 140 - 440 K/uL 224 MPV 6.5 - 12.4 fL 9.3 % Neutrophils 45.0 - 82.0 % 66.0 % Lymphocytes 20.0 - 45.0 % 26.3 % Monocytes 4.0 - 12.0 % 5.7 % Eosinophils 0.0 - 5.0 % 1.0 % Basophils 0.0 - 1.0 % 0.6 % Immature Granulocytes 0.0 - 0.4 % 0.4 Absolute Neutrophils 1.80 - 8.50 K/uL 7.42 Absolute Lymphocytes 0.60 - 3.20 K/uL 2.96 Absolute Monocytes 0.00 - 1.00 K/uL 0.64 Absolute Eosinophils 0.00 - 0.40 K/uL 0.11 Absolute Basophils 0.00 - 0.10 K/uL 0.07 Absolute Immature Granulocytes 0.00 - 0.03 K/uL 0.05 (H) % nRBC 0 - 2 per 100 WBCs 0 Absolute nRBC 0.00 - 0.01 K/uL 0.00 Na 136 - 145 mmol/L 141 K 3.4 - 5.1 mmol/L 4.4 Chloride 98 - 107 mmol/L 108 (H) Carbon dioxide 20 - 31 mmol/L 22 Anion Gap 3 - 16 mmol/L 11 Glucose 60 - 106 mg/dL 69 BUN 9 - 23 mg/dL 13 Creatinine 0.55 - 1.02 mg/dL 0.81 EGFR IF NOT >=60 mL/min/1.73m2 >60 Calcium 8.7 - 10.4 mg/dL 9.2 Albumin 3.2 - 4.8 g/dL 4.5 Bilirubin Total (Calculated) 0.3 - 1.2 mg/dL 1.3 (H) Total Protein 5.7 - 8.2 g/dL 6.5 AST (SGOT) (REF) 0 - 34 U/L 25 ALT (SGPT) (REF) 10 - 49 U/L 21 ALK PHOS 46 - 116 U/L 57 Globulin 2.1 - 3.8 g/dL 2.0 (L) Albumin/Globulin Ratio 0.8 - 1.9 2.3 (H) BUN/Creatinine Ratio 16.0 12/25/2019 BCR-ABL1 for CML and All Ref Range & Units 7d ago b2a2 transcript % 0.2098 b3a2 transcript % <0.0032 BCR/ABL1 of e1a2 Type % <0.0032 11/25/2019 BCR-ABL1 for CML and All Ref Range & Units 1mo ago b2a2 transcript % <0.0032 b3a2 transcript % <0.0032 BCR/ABL1 of e1a2 Type % <0.0032 Electronically signed by: Deny Mcmanus MD 01/01/2020 11:51 AM CC: Burton Masters MD Total time in face to face discussion with the patient and family was 15 minutes; more than 50% of the time was spent in counseling and coordination of care. Portions of this chart may have been created with [employer] voice recognition software. Occasi onal wrong-word or [...] | | Visit | | [address] [facility] [address] | | | | | | [place] | | | | | | [address] | | | | | | | | +--------+ + + + + | 03/18/ | Office | Physical Medicine | Jovana Dawson | | | 2019 | Visit | and Rehabilitation | [address] | | | | | | [address] [facility] | | | | | | [address] [place] | | | | | | [address] | | | | | | | | +--------+ + + + + | 04/01/ | Appointment | Oncology | Deny Mcmanus, | | 2019 | | | MD [address] | | | | | | [address] [place] | | | | | | [place] [address] | | | | | | [phone] | | | | | | | | +--------+ + + + + | 04/08/ | Procedure | Physical Medicine | Leonard De Leon | | | 2019 | visit | and Rehabilitation | MD [address] | | | | | | [facility] [place] | | | | | | [address] | | | | | | | | +--------+ + + + + | 04/30/ | Office | Cardiology | Shad Saavedra, | | | 2019 | Visit | | [address] | | | | | | [place], | | | | | | [place] [address] | | | | | | [phone] | | | | | | | | +--------+ + + + + + +------+--------+ + + | Name | Type | Priori | Associated Diagnoses | Order Schedule | | | | ty | | | + +------+--------+ + + | CBC with | Lab | STAT | Chronic myeloid | Expected: 03/23/2020 | | Differential | | | leukemia (HCC) | (Approximate), | | | | | | Expires: 01/01/2021 | + +------+--------+ + + | Comprehensive | Lab | STAT | Chronic myeloid | Expected: 03/23/2020 | | Metabolic Panel | | | leukemia (HCC) | (Approximate), | | | | | | Expires: 01/01/2021 | + +------+--------+ + + | BCR-ABL1 for CML and | Lab | Routin | Chronic myeloid | Expected: 03/23/2020 | | All | | e | leukemia (HCC) | (Approximate), | | | | | | Expires: 01/01/2021 | + +------+--------+ + + documented as of this encounter Visit Diagnoses + + | Diagnosis | + + | Chronic myeloid leukemia (HCC) - Primary Chronic myeloid leukemia, without mention of | | having achieved remission | + + documented in this encounter
--- OUTSIDE RECORDS SUMMARY | ~2020-03-13 | XMS | Encounter Summary ---
Demographics + + + | Address | [address] | | | [place] [address] | + + + | Home Phone | | + + + | Preferred Language | Unknown | + + + | Marital Status | | + + + | Religion Affiliation | Unknown | + + + | Race | Unknown | + + + | Ethnic Group | Unknown | + + + Author + + + | Author | [facility] | | | and [place] | + + + | Organization | [facility] | | [...] Team Providers + +------+ + | Care Dba Manager Name | Role | Phone | [...] + + | 08/04/ | Refill | [facility] | Deny Mcmanus, | Medication Refill | | 2019 | | [facility] | [address] | | | | | ONCOLOGY CLINIC [address] [place], | | | | | [place] | [place] [address] | | | | | [place] [address] | [phone] | | | | | [phone] | | | +--------+--------+ + + + [...] [place] | | | | | | [address] | | | | | | | | +--------+ + + + + | 03/18/ | Office | Physical Medicine | Jovana Dawson | | | 2019 | Visit | and Rehabilitation | [address] | | | | | | [address] [facility] | | | | | | [address] [place] | | | | | | [address] | | | | | | | | +--------+ + + + + | 04/01/ | Appointment | Oncology | Deny Mcmanus, | | | 2019 | | | MD [address] | | | | | | [address] [place], | | | | | | [place] [address] | | | | | | [phone] | | | | | | | | +--------+ + + + + | 04/08/ | Procedure | Physical Medicine | Leonard De Leon | | | 2019 | visit | and Rehabilitation | MD [address] | | | | | | [facility], [place] | | | | | | [address] | | | | | | | | +--------+ + + + + | 04/30/ | Office | Cardiology | Shad Saavedra, | | | 2019 | Visit | | [address] | | | | | | [place], | | | | | | [place] [address] | | | | | | [phone] | | | | | | | | +--------+ + + + + documented as of this encounter Visit Diagnoses + + | Diagnosis | + + | Chronic myeloid leukemia (HCC) - Primary Chronic myeloid leukemia, without mention of | | having achieved remission | + + documented in this encounter"
--- OUTSIDE RECORDS SUMMARY | ~2020-03-13 | XMS | Encounter Summary ---
Demographics + + + | Address | [address] | | | [place] [address] | + + + | Home Phone [...] Team Providers + +------+ + | Care Wire Sawyer Name | Role | Phone | + +------+ + | Nhi Oneal MD | PCP | | + +------+ + Encounter Details +--------+ + + + + | Date | Type | Department | Care Team | Description | +--------+ + + + + | 02/25/ | Hospital | [facility] | Dominguez Ibarra, | Left shoulder pain | | 2013 | Encounter | [facility] | PA-C [address] | | | | | [address] [place] | [address] [place] | | | | | [place] | [place] [address] | | | | | [address] | [phone] | | | | | [phone] | | | +--------+ + + + [...] | chlorhexidine | | | 0 | 02/18/20 | | | (PERIDEX) 0.12% | | [...] [place] | | | | | | [address] | | | | | | | | +--------+ + + + + | 03/18/ | Office | Physical Medicine | Jovana Dawson | | | 2019 | Visit | and Rehabilitation | [address] | | | | | | [address] | | | | | | [address] [place] | | | | | | [address] | | | | | | | | +--------+ + + + + | 04/01/ | Appointment | Oncology | Deny Mcmanus, | | | 2019 | | | MD [address] | | | | | | [place], | | | | | | [place] [address] | | | | | | [phone] | | | | | | | | +--------+ + + + + | 04/08/ | Procedure | Physical Medicine | Leonard De Leon | | | 2019 | visit | and Rehabilitation | MD [address] | | | | | | [place], [place] | | | | | | [address] | | | | | | | | +--------+ + + + + | 04/30/ | Office | Cardiology | Shad Saavedra, | | | 2019 | Visit | | MD [address] | | | | | | [place], | | | | | | [place] [address] | | | | | | [phone] | | | | | | | | +--------+ + + + + documented as of this encounter Procedures + +--------+ + + + | Procedure Name | Priori | Date/Time | Associated Diagnosis | Comments | | | ty | | | | + +--------+ + + + | XR SHOULDER LEFT 2 + | Routin | 02/25/2014 | Left shoulder pain | Results for this | | VW | e | 11:12 AM | | procedure are in the | | | | PDT | | results section. | + +--------+ + + + documented in this encounter Results XR Shoulder Left 2 [...] + | MISCELLANEOUS LAB | | | [phone] | + +---------+ + + | MISCELANIOUS LAB | | | [phone] | + +---------+ + + documented in this encounter Visit Diagnoses + + | Diagnosis | + + | Left shoulder pain Pain in joint, shoulder region | + + documented in this encounter"
--- OUTSIDE RECORDS SUMMARY | ~2020-03-13 | XMS | Encounter Summary ---
Demographics + + + | Address | [address] | | | [place] [address] | + + + | Home Phone [...] Team Providers + +------+ + | Care Insurance Actuary Name | Role | Phone | + +------+ + | No, Physician | PCP | Unavailable | + +------+ + Encounter Details +--------+ + + + + | Date | Type | Department | Care Team | Description | +--------+ + + + + | 10/15/ | Anesthesia | [facility] | Arthur Gusman MD | | | 2016 | Event | [facility] | [address] | | | | | [address] | [place] | | | | | [place] | [address] | | | | | [address] | [phone] | | | | | [phone] | | | +--------+ + + + [...] [place] | | | | | | [address] | | | | | | | | +--------+ + + + + | 03/18/ | Office | Physical Medicine | Jovana Dawson | | | 2019 | Visit | and Rehabilitation | [address]ANY [address] | | | | | | [address] | | | | | | [place] | | | | | | [address] | | | | | | | | +--------+ + + + + | 04/01/ | Appointment | Oncology | Deny Mcmanus, | | | 2019 | | | [address] | | | | | | [place] | | | | | | [place] [address] | | | | | | [phone] | | | | | | | | +--------+ + + + + | 04/08/ | Procedure | Physical Medicine | Leonard De Leon | | | 2019 | visit | and Rehabilitation | MD Audelia [address] | | | | | | [place] | | | | | | [address] | | | | | | | | +--------+ + + + + | 04/30/ | Office | Cardiology | Shad Saavedra, | | | 2019 | Visit | | [address] | | | | | | [place], | | | | | | [place] [address] | | | | | | [phone] | | | | | | | | +--------+ + + + + documented as of this encounter Visit Diagnoses Not on filedocumented in this encounter"
--- OUTSIDE RECORDS SUMMARY | ~2020-03-13 | XMS | Encounter Summary ---
Demographics + + + | Address | [address] | | | [place] [address] | + + + | Home Phone [...] Team Providers + +------+ + | Care Php Mysql Web Developer Name | Role | Phone | + +------+ + | Burton Masters MD | PCP | | + +------+ + Reason for Visit +--------+ + | Reason | Comments | +--------+ + | Other | Landy suazo paperwork | +--------+ + Encounter Details +--------+ + + + + | Date | Type | Department | Care Team | Description | +--------+ + + + + | 09/23/ | Telephone | [facility] | Shad Saavedra, | Other ([employer] | | 2019 | | CARDIOLOGY [address] | MD [address] [place] | disablitiy | | | | [place], | [place], | paperwork) | | | | [place] [address] | [place] [address] | | | | | [phone] | [phone] | | | | | | | [...] | | Visit | | [address] [facility] [address] | | | | | | [place] | | | | | | [address] | | | | | | | [...] [place] | | | | | | [address] | | | | | | | | +--------+ + + + + | 04/01/ | Appointment | Oncology | Deny Mcmanus, | | | 2019 | | | [address] | | | | | | [place] | | | | | | [place] [address] | | | | | | [phone] | | | | | | | | +--------+ + + + + | 04/08/ | Procedure | Physical Medicine | Leonard De Leon | | | 2019 | visit | and Rehabilitation | MD [address] | | | | | | [place] | | | | | | [address] | | | | | | | | +--------+ + + + + | 04/30/ | Office | Cardiology | Shad Saavedra, | | | 2019 | Visit | | MD [address] | | | | | | [place] | | | | | | [place] [address] | | | | | | [phone] | | | | | | | | +--------+ + + + + documented as of this encounter Visit Diagnoses Not on filedocumented in this encounter"
--- OUTSIDE RECORDS SUMMARY | ~2020-03-13 | XMS | Encounter Summary ---
Demographics + + + | Address | [address] | | | [place] [address] | + + + | Home Phone [...] Team Providers + +------+ + | Care 4Th Grade Teacher Name | Role | Phone | + +------+ + | Burton Masters MD | PCP | | + +------+ + Encounter Details +--------+ + + + + | Date | Type | Department | Care Team | Description | +--------+ + + + + | 01/04/ | Orders Only | [facility] [place] | Adrian Alvarado MD | Back pain, | | 2017 | | NEUROSURGERY [address] | unspecified back | | | | [address] | [place] [address] | location, | | | | [place] | [phone] | unspecified back | | | | [address] | | pain laterality, | | | | [phone] | | unspecified | | | | | | chronicity (Primary | | | | | | Dx) | +--------+ + + + + [...] | | | Visit | | [address] [place] [address] | | | | | | [place] | | | | | | [address] | | | | | | | | +--------+ + + + + | 03/18/ | Office | Physical Medicine | Jovana Dawson | | | 2019 | Visit | and Rehabilitation | M[address] | | | | | | [address] | | | | | | [place] | | | | | | [address] | | | | | | | | +--------+ + + + + | 04/01/ | Appointment | Oncology | Deny Mcmanus, | | | 2019 | | | [address] | | | | | | [place] | | | | | | [place] [address] | | | | | | [phone] | | | | | | | | +--------+ + + + + | 04/08/ | Procedure | Physical Medicine | Leonard De Leon | | | 2019 | visit | and Rehabilitation | MD Audelia [address] | | | | | | [place] | | | | | | [address] | | | | | | | | +--------+ + + + + | 04/30/ | Office | Cardiology | Shad Saavedra, | | | 2019 | Visit | | [address] | | | | | | [place], | | | | | | [place] [address] | | | | | | [phone] | | | | | | | | +--------+ + + + + documented as of this encounter Results XR Lumbar Spine 4 + Vw (03/03/2017 7:48 AM PDT) + + | Specimen | + + | | + + + + + | Narrative | Performed At | + + + | EXAM:XR LUMBAR SPINE 4 + VW CLINICAL HISTORY: Back pain | [facility] | | COMPARISON: Outside study dated October 22, 2012. FINDINGS: 5 | [facility] | | nonrib-bearing lumbar-type vertebral bodies. There [...] + | Ruben, Rad Results In - 03/03/2017 8:37 AM PDT [...] ST[address] | [address] | [place] | [phone] | | [facility] | | [address] | | | - IMAGING | | | | + + + + + documented in this encounter Visit Diagnoses + + | Diagnosis | + + | Back pain, unspecified back location, unspecified back pain laterality, unspecified | | chronicity - Primary | + + documented in this encounter"
--- OUTSIDE RECORDS SUMMARY | ~2020-03-13 | XMS | Encounter Summary ---
Demographics + + + | Address | [address] | | | [place] [address] | + + + | Home Phone | | + + + | Preferred Language | Unknown | + + + | Marital Status | | + + + | Bahai Affiliation | Unknown | + + + | Race | Unknown | + + + | Ethnic Group | Unknown | + + + Author + + + | Author | [facility] | | | and [place] | + + + | Organization | [facility] | | | [...] Team Providers + +------+ + | Care Dairy Consultant Name | Role | Phone | [...] | | | | BCR/ABL-posi | [address] | [place], | | | | | cheyanne in | [place], | [place] [address] | | | | | relapse | [place] | Phone: | | | | | (HCC) | [address] | [phone] | | | | | Chronic | Phone: | 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 | | | | | leukemia, | Fax: | | | | | | BCR/ABL-posi | [phone] | | | | | | tive, not | | | | | | | having | | | | | | | achieved | | | | | | | remission | | | | | | | (HCC) | | | | | | | Procedures | | | | | | | [place] OFFICE | | | | | | | OUTPATIENT | | | | | | | VISIT 25 | | | | | | | MINUTES | | | | | | | [address] | | | +--------+--------+ + + + + Encounter Details +--------+ + + + + | Date | Type | Department | Care Team | Description | +--------+ + + + + | 05/29/ | Hospital | [facility] | Deny Mcmanus, | 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, | | | | [facility] [address] | [place], | BCR/ABL-positive, | | | | [place] | [place] [address] | not having achieved | | | | [place] [address] | [phone] | remission (HCC) | | | | [phone] | | (Primary Dx) | +--------+ + [...] | Visit | | [address] [facility] [address] | | | | | | [place] | | | | | | [address] | | | | | | | | +--------+ + + + + | 03/18/ | Office | Physical Medicine | Jovana Dawson | | | 2019 | Visit | and Rehabilitation | [address] | | | | | | [address] [facility] | | | | | | [address] [place] | | | | | | [address] | | | | | | | | +--------+ + + + + | 04/01/ | Appointment | Oncology | Deny Mcmanus, | | 2019 | | | [address] | | | | | | [place] | | | | | | [place] [address] | | | | | | [phone] | | | | | | | | +--------+ + + + + | 04/08/ | Procedure | Physical Medicine | Leonard De Leon | | | 2019 | visit | and Rehabilitation | MD Audelia [address] | | | | | | [place], [place] | | | | | | [address] | | | | | | | | +--------+ + + + + | 04/30/ | Office | Cardiology | Shad Saavedra, | | | 2019 | Visit | | MD Alan [address] | | | | | | [place], | | | | | | [place] [address] | | | | | | [phone] | | | | | | | [...]
--- OUTSIDE RECORDS SUMMARY | ~2020-03-13 | XMS | Encounter Summary ---
Demographics + + + | Address | [address] | | | [place] [address] | + + + | Home Phone [...] Team Providers + +------+ + | Care Paint Grinder [employer] Name | Role | Phone | + [...] + + + + | 04/30/ | Telephone | [facility] [place] [facility] | Burton Masters, | Medication | | 2019 | | [facility] | [address] | Management | | | | [address] | [place] | | | | | [place] | [address] | | | | | [address] | | | | | | [phone] | | | +--------+ + + + [...] [place] | | | | | | [address] | | | | | | | | +--------+ + + + + | 03/18/ | Office | Physical Medicine | Jovana Dawson | | | 2019 | Visit | and Rehabilitation | MELANY Man [address] | | | | | | [address] | | | | | | [address] [place] | | | | | | [address] | | | | | | | | +--------+ + + + + | 04/01/ | Appointment | Oncology | Deny Mcmanus, | | | 2019 | | | MD [address] | | | | | | [address] [place] | | | | | | [place] [address] | | | | | | [phone] | | | | | | | | +--------+ + + + + | 04/08/ | Procedure | Physical Medicine | Leonard De Leon | | | 2019 | visit | and Rehabilitation | MD [address]iki [address] | | | | | | [place] | | | | | | [address] | | | | | | | | +--------+ + + + + | 04/30/ | Office | Cardiology | Shad Saavedra, | | | 2019 | Visit | | MD [address] | | | | | | [place] | | | | | | [place] [address] | | | | | | [phone] | | | | | | | | +--------+ + + + + documented as of this encounter Visit Diagnoses Not on filedocumented in this encounter"
--- OUTSIDE RECORDS SUMMARY | ~2020-03-13 | XMS | Encounter Summary ---
Demographics + + + | Address | [address] | | | [place] [address] | + + + | Home Phone [...] Team Providers + +------+ + | Care Enterprise Application Administrator Name | Role | Phone | + +------+ + | Burton Masters MD | PCP | | + +------+ + Encounter Details +--------+ + + + + | Date | Type | Department | Care Team | Description | +--------+ + + + + | 08/14/ | Hospital | [facility] | Dorota Beal | Twin , | | 2017 | Encounter | [address] | DO [address] | antepartum, | | | | [place], [place] | [facility] | unspecified multiple | | | | [address] | [place] [address] | gestation type | | | | [phone] | [phone] | | | | | | | [...] [place] | | | | | | [address] | | | | | | | | +--------+ + + + + | 03/18/ | Office | Physical Medicine | Jovana Dawson | | | 2019 | Visit | and Rehabilitation | [address] | | | | | | [address] | | | | | | [address] [place] | | | | | | [address] | | | | | | | | +--------+ + + + + | 04/01/ | Appointment | Oncology | Deny Mcmanus, | | | 2019 | | | [address] | | | | | | [place] | | | | | | [place] [address] | | | | | | [phone] | | | | | | | | +--------+ + + + + | 04/08/ | Procedure | Physical Medicine | Leonard De Leon | | | 2019 | visit | and Rehabilitation | MD Audelia [address] | | | | | | [place] | | | | | | [address] | | | | | | | | +--------+ + + + + | 04/30/ | Office | Cardiology | Shad Saavedra, | | | 2019 | Visit | | [address] | | | | | | [place], | | | | | | [place] [address] | | | | | | [phone] | | | | | | | | +--------+ + + + + documented as of this encounter Procedures + +--------+ + + + | Procedure Name | Priori | Date/Time | Associated Diagnosis | Comments | | | ty | | | | + +--------+ + + + | US OB TWINS < 14 | Routin | 08/14/2017 | Twin , | Results for this | | WEEKS | e | 9:20 AM | antepartum, | procedure are in the | | | | PDT | unspecified multiple | results section. | | | | | gestation type | | + +--------+ + + + documented in this encounter Results US OB Twins < 14 Weeks (08/14/2017 9:20 AM PDT) + + | Specimen | + + | | + + + + + | Narrative | Performed At | + + + | US OB TWINS < | [facility] | | 14 WEEKS 08/14/2017 9:20 AM HISTORY: US OB Twins < 14 Weeks. | | | COMPARISON: 07/07/2017 PROTOCOL: Babcock scale and Doppler images of the | | | fetus with transabdominal andtransvaginal imaging. | | | FINDINGS:Gestational age by LMP dates is 13 weeks 2 days. Fetus A:CRL: | | | 7.5 cm, 13 weeks 4 daysHeart rate: 155 bpmPlacenta: Low anterior | | | placenta Fetus B:CRL: 7.8 cm, 13 weeks 6 days Heart rate: 163 | | | bpmPlacenta: High posterior placenta IMPRESSION -Twin dichorionic | | | diamniotic :Fetus A gestational age of 13 weeks 4 days, | | | question low-lying anteriorplacenta.Fetus B gestational age of 13 | | | weeks 6 days. Dictated and Signed by: Jona Cline MD | | | Electronically signed: 08/14/2017 5:13 PM | | |Fetus A: | | |CRL: 7.5 cm, 13 weeks 4 days | | |Heart rate: 155 bpm | | |Placenta: Low anterior placenta | | | | | |Fetus B: | | |CRL: 7.8 cm, 13 weeks 6 days | | |Heart rate: 163 bpm | | |Placenta: High posterior placenta | | | | | |IMPRESSION - | | |Twin dichorionic diamniotic : | | |Fetus A gestational age of 13 weeks 4 days, question low-lying anterior | | |placenta. | | |Fetus B gestational age of 13 weeks 6 days. | | | | | |Dictated and Signed by: Jona Cline MD | | | Electronically signed: 08/14/2017 5:13 PM | | | | | + + + + + | Procedure Note | + + | Ruben, Rad Results In - 08/14/2017 5:16 PM PDT US OB TWINS < 14 WEEKS 08/14/2017 9:20 | | AMHISTORY: US OB Twins < 14 Weeks.COMPARISON: 07/07/2017PROTOCOL: Babcock scale and Doppler | | images of the fetus with transabdominal andtransvaginal imaging.FINDINGS:Gestational age | | by LMP dates is 13 weeks 2 days.Fetus A:CRL: 7.5 cm, 13 weeks 4 daysHeart rate: 155 | | bpmPlacenta: Low anterior placentaFetus B:CRL: 7.8 cm, 13 weeks 6 days Heart rate: 163 | | bpmPlacenta: High posterior placentaIMPRESSION -Twin dichorionic diamniotic | | :Fetus A gestational age of 13 weeks 4 days, question low-lying | | anteriorplacenta.Fetus B gestational age of 13 weeks 6 days.Dictated and Signed by: Jona | | MD Son Electronically signed: 08/14/2017 5:13 PM | |FINDINGS: | |Gestational age by LMP dates is 13 weeks 2 days. | | | |Fetus A: | |CRL: 7.5 cm, 13 weeks 4 days | |Heart rate: 155 bpm | |Placenta: Low anterior placenta | | | |Fetus B: | |CRL: 7.8 cm, 13 weeks 6 days | |Heart rate: 163 bpm | |Placenta: High posterior placenta | | | |IMPRESSION - | |Twin dichorionic diamniotic : | |Fetus A gestational age of 13 weeks 4 days, question low-lying anterior | |placenta. | |Fetus B gestational age of 13 weeks 6 days. | | | |Dictated and Signed by: Jona Cline MD | | Electronically signed: 08/14/2017 5:13 PM | + + + +---------+ + [...]
--- OUTSIDE RECORDS SUMMARY | ~2020-03-13 | XMS | Encounter Summary ---
Demographics + + + | Address | [address] | | | [place] [address] | + + + | Home Phone | | + + + | Preferred Language | Unknown | + + + | Marital Status | | + + + | Orthodoxy Affiliation | Unknown | + + + [...] Team Providers + +------+ + | Care Meal Room Hand Name | Role | Phone | [...] Description | +--------+---------+ + + + | 08/12/ | Surgery | [facility] | Presley Bravo, | CV EP ABLATION SVT | | 2019 | | [facility] | MD [address] | | | | | [address] | [place], [place] | | | | | [place], [place] | [address] | | | | | [address] | | | | | | [phone] | | | +--------+---------+ + + + [...] | | | | Visit | | [facility] | | | | | [...] [place] | | | | | | [address] | | | | | | | | +--------+ + + + + | 04/01/ | Appointment | Oncology | Deny Mcmanus, | | | 2019 | | | [address] | | | | | | [place] | | | | | | [place] [address] | | | | | | [phone] | | | | | | | | +--------+ + + + + | 04/08/ | Procedure | Physical Medicine | Leonard De Leon | | | 2019 | visit | and Rehabilitation | MD Audelia [address] | | | | | | [place] | | | | | | [address] | | | | | | | | +--------+ + + + + | 04/30/ | Office | Cardiology | Shad Saavedra, | | | 2019 | Visit | | [address] | | | | | | [place], | | | | | | [place] [address] | | | | | | [phone] | | | | | | | [...] PDT | | | | | tachycardia) ([facility]) | | + + +--------+ + + [...] | | | performed at [facility] | | [facility]AT[facility] | | | | [address];[place] | | | | | | [address] | | | | + + + + + + + + | Specimen | + + | Blood | + + + + + + + | Performing | Address | City/State/Zipcode | Phone Number | | Organization | | | | + + + + + | [facility] | [address] | [place] [address] | [phone] | + + + + + CBC [...] | | | performed at [facility] | | LABORATORY | | | | [address];[place] | | | | | | [address] | | | | + + + + + + + + | Specimen | + + | Blood | + + + + + + + | Performing | Address | City/State/Zipcode | Phone Number | | Organization | | | | + + + + + | [facility] | [address] | [place] [address] | [phone] | + + + + + Basic [...] | | | performed at [facility] | | | | | | [address];[place] | | | | | | [address] | | | | + + + + + + + + | Specimen | + + | Blood | + + + + + + + | Performing | Address | City/State/Zipcode | Phone Number | | Organization | | | | + + + + + | [facility] | [address] | [place] [address] | [phone] | + + + + + documented [...] DAILY, First dose on 08/12/19 | | AM PDT | | [...] | | First dose on 08/12/19 at 1345 | | [...] | +---+---+ + +-------+ +--------+---+---+ | lidocaine 1% injection ONCE | Given | 08/12/20 | 10 mLs | | | | PRN, Starting 08/12/19 at | | 19 12:14 | | | | | 1214, Intra-op | | PM PDT | | | | + +-------+ +--------+---+---+ [...] | | | | | Nausea, Starting 08/12/19 at | | AM PDT [...] 9:57 | | | | | Intravenous, ARTIST MANAGER, Starting | | AM PDT | | | | | 08/12/19 at 0914, For 1 dose, | | | | | | | Pre-op | | | | | | + +---------+ +---+ +---+ +---+---+ | | | +---+---+ documented in this encounter
--- OUTSIDE RECORDS SUMMARY | ~2020-03-13 | XMS | Encounter Summary ---
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 [employer] | + + + Encounter Details +--------+ + + + + | Date | Type | Department | Care Team | Description | +--------+ + + + + | 09/16/ | Telephone | [facility] [place] [facility] | Burton Masters, | Disability Form | | 2019 | | [facility] | [address] | (fci | | | | [address] | [place] | disability from | | | | [place] | [address] | [employer]) | | | | [address] | | | | | | [phone] | | | +--------+ + + + [...] [place] | | | | | | [address] | | | | | | | | +--------+ + + + + | 03/18/ | Office | Physical Medicine | Jovana Dawson | | | 2019 | Visit | and Rehabilitation | [address]EL[address] | | | | | | [address] | | | | | | [address] [place] | | | | | | [address] | | | | | | | | +--------+ + + + + | 04/01/ | Appointment | Oncology | Deny Mcmanus, | | 2019 | | | MD [address] | | | | | | [place] | | | | | | [place] [address] | | | | | | [phone] | | | | | | | | +--------+ + + + + | 04/08/ | Procedure | Physical Medicine | Leonard De Leon | | | 2019 | visit | and Rehabilitation | MD Kiki Win | | | | | | [place] | | | | | | [address] | | | | | | | | +--------+ + + + + | 04/30/ | Office | Cardiology | Shad Saavedra, | | | 2019 | Visit | | MD [address] | | | | | | [place] | | | | | | [place] [address] | | | | | | [phone] | | | | | | | | +--------+ + + + + documented as of this encounter Visit Diagnoses Not on filedocumented in this encounter"
--- OUTSIDE RECORDS SUMMARY | ~2020-03-13 | XMS | Encounter Summary ---
Demographics + + + | Address | [address] | | | [place] [address] | + + + | Home Phone | | + + + | Preferred Language | Unknown | + + + | Marital Status | Single | + + + | Rastafari Affiliation | NON | + + + [...] Team Providers + +------+ + | Care Cleaning Matron Name | Role | Phone | + +------+ + | Burton Masters MD | PCP | | + +------+ + Reason for Visit + + + | Reason | Comments | + + + | CML - Chronic | | | myeloid leukemia | | + + + | Consultation | | + + + Intake Referral (Routine) +--------+---------+ + + + + | Status | Reason | Specialty | Diagnoses / | Referred By | Referred To | | | | | Procedures | Contact | Contact | +--------+---------+ + + + + | Closed | Other | Medical | Diagnoses | Sonam, | Oscar, | | | | Oncology / | CML | Burton Rizzo, | MD Jalen | | | | Hematology | (chronic | MD [address] | | | | Malignancy | myelocytic | [address] | [address] | | | | | leukemia) | [facility], | [place], [place] | | | | | (HCC) | [place] [address] | [address] | | | | | Procedures | Phone: | Phone: | | | | | [place] NEW | [phone] | [phone] | | | | | PATIENT | Fax: | Fax: | | | | | [place] | [phone] | [phone] | | | | | EST PATIENT | | | | | | | L[place] | | | +--------+---------+ + + + + Encounter Details +--------+---------+ + + + | Date | Type | Department | Care Team | Description | +--------+---------+ + + + | 04/29/ | Office | [facility] | Jalen Moore, | CML (chronic | | 2019 | Visit | Clinics at S | MD [address] | myelocytic leukemia) | | | | [facility] | [place], [place] | (HCC) (Primary Dx) | | | | for Health and | [address] | | | | | [facility] [address] | [phone] | | | | | [place], [place] | | | | | | [address] | | | | | | [phone] | | | +--------+---------+ + + + [...] + + + | Blood Pressure | 147/95 | 04/29/2019 11:52 AM | | | | | PDT | | + + + + + | Pulse | 82 | 04/29/2019 11:52 AM | | | | | PDT | | + + + + + | Temperature | 36.7 C (98.1 F) | 04/29/2019 11:52 AM | | | | | PDT | | + + + + + | Respiratory Rate | 20 | 04/29/2019 11:52 AM | | | | | PDT | | + + + + + | Oxygen Saturation | 99% | 04/29/2019 11:52 AM | | | | | PDT | | + + + + + | Inhaled Oxygen | - | - | | | Concentration | | | | + + + + + | Weight | 77.5 kg (170 lb 12.8 | 04/29/2019 11:52 AM | | | | oz) | PDT | | + + + + + | Height | 172.2 cm (5' 7.8") | 04/29/2019 11:52 AM | | | | | PDT | | + + + + + | Body Mass Index | 26.12 | 04/29/2019 11:52 AM | | | [...] + + documented as of this encounter Patient Instructions Patient Instructions Rohner, Latia, RN - 04/29/2019 12:00 PM PDT It was a pleasure to see you in clinic today. These are the things that were discussed in your appointment today: Medication changes today: Start imatinib (Gleevec) Stop dasatinib (Sprycel) Dr. Varela recommends switching your TKI to imatinib. We will send the prescription to our pharmacy to get the process started. He recommends you have your CBC & liver enzymes checked one month after starting imatini b. We will plan to see you back here in 6 weeks, which should be an adequate timeframe. After that, if things are going well, every three month monitoring should be adequate. We will see you again in 6 weeks! CBC with diff last 72 hours (or 3 results) Recent Labs 04/29/19 1058 WBC 6.17 HB 15.0 HCT 43.0 PLT 177 NEUTROPERC 62.3 LYMPHPERC 28.7 MONOPERC 7.1 BASOPERC 0.3 EOSPERC [address] Lori Addison's Nurse Coordinator, through [employer] or through [facility] at [phone]. Please note, I am off on Fridays. If you have any questions about appointments or need to [facility], please call the hotel front desk agent at [phone]. Please call the [facility] Triage Nurse at [phone] for any fevers, other medical symptoms or side effects, or if you need refills. FOR PRESCRIPTIONS: please allow 48-72 hours for prescription refills. Please make sure no r efills remain prior to calling. If refills remain, please call the pharmacy for a refill. As your Oncology care team, we will care for your oncology specific health concerns. Other non-oncology health concerns will continue to be managed by your Primary Care Provider or ot her specialists involved in your care. Feedback: We value and appreciate your opinion and would like to learn from your experience at [facility]. Please complete the surveys that [facility] sends. Thank you! Index documented in this encounter Progress Notes Jalen Moore MD - 04/29/2019 12:00 PM PDTFormatting of this note might be different f rom the original. 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 The patient was referred by her primary oncologist, Dr. Deny Mcmanus, for additional cons ultation concerning side effect management and overall management of her CML. The patient w as recently diagnosed with CML in January of this year when she presented with an elevated blo od count. Additional workup yielded a diagnosis of CML. The patient was started on dasatin ib dosed at 100 mg per day. The patient relatively rapidly had normalization of her white b lood cell count. The patient also had a rapid decrease in her BCR-ABL PCR, such that in Apr of this year, the patient was nearing major molecular response with a value of 0.16%. The patient has tolerated dasatinib poorly and is currently on medical disability. The patient has had abdominal pain, nausea, vomiting and diarrhea. She has had multiple ER visits for evaluation for nausea and vomiting. The patient also has noted long bone pain affecting her femur and knees which she attributes to dasatinib. The patient denies skin rash. No fever s, no infections. No antibiotics. The patient has not required any transfusions as she has not been anemic during this period. The patient also has not developed thrombocytopenia to the point requiring transfusion, although her platelet counts in the last month have been i n the range of 100,000. The patient denies any abnormal bruising or bleeding. 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 The patient has had a rapid achievement of a hematologic response and is also nearing a major molecular response . Our general landmarks for initiation of CML therapy would be a PCR less than 10% at 3 mon ths, and a PCR of less than 1% at 6 months, and achievement of a PCR of less than 0.1% in range of 12 to 18 months. The patient has had a very rapid decrease in her PCR, such that she after 3 months of therapy is nearing major molecular response, which would normally be our 1 year landmark goal. At this point, 1 could consider decreasing the dose of dasatinib but given her extreme intolerance of this medication and given her initial rapid molecular r esponse, it seems more reasonable to switch to an alternative agent. The least side effect prone of the agents that could be chosen at this point would be imatinib. I did discuss aby tinib 400 mg daily with the patient to be taken at the conclusion of a meal and using ondans etron either prophylactically or as needed for nausea, as most patients would not require th is. After discussion, the patient was agreeable to a trial of switching to imatinib. I wro te a prescription and sent it in for authorization and determination of co-pay. I also sent a prescription for ondansetron to be used prophylactically or as needed. We will follow up on the PCR from today, although we expect it to still be excellent and perhaps even lower t walker last month. The patient would like to return in 6 weeks for laboratory followup to dete yoli if there is any toxicity lab rollins or side effect rollins from the imatinib and to further follow or her PCR trajectory. It appears that her imatinib prior authorization already maggie roved today and we will work on determining co-pay and sending it to the [facility] to f ill the medication. The patient had been receiving dasatinib through [facility] and elias d them that she did not any more refills anticipating the need to switch medications, so she should be able to start imatinib perhaps as early as next week. Problem List: Patient Active Problem List Diagnosis Chronic low back pain Depression Leukocytosis Alcohol use Tobacco abuse Chronic myeloid leukemia (CML), BCR/ABL-positive ([facility]) Nausea Previously Obtained Historical Data PMH: Past Medical History: Diagnosis Date Anxiety CML (chronic myelocytic leukemia) ([facility]) 01/04/2019 Degenerative joint disease of low back Depression Seizure ([facility]) hx 2 episodes both in 2018, associated with alcohol use SVT (supraventricular tachycardia) ([facility]) 02/2019 PSH: Past Surgical History Procedure Laterality Date x3: 2009, 2015, 2018 Left shoulder surgery arthroscopic FH: Family History Problem Relation Multiple Sclerosis Mother Depression Mother Coronary Artery Disease Mother Hypertension Father Glaucoma Father Hyperlipidemia Father Gout Father indicated that her mother is alive. She indicated that her father is alive. Three siblings age 37-40 without any health issues. 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 Indications: Chronic Ph ase [place] Chromosome Positive Chronic Myelocytic Leukemia diphenoxylate-atropine 2.5-0.025 mg oral tablet Take 2 tablets by mouth as needed. HYDROcodone-acetaminophen 5-325 mg oral tablet Take 1 tablet by mouth three times daily as needed. imatinib 400 mg oral tablet Take 1 tablet by mouth once daily. Indications: Chronic Pha se [place] Chromosome Positive Chronic Myelocytic Leukemia lamoTRIgine 25 [...] current facility-administered medications for this visit. Vitals: BP (!) 147/95 (BP Location: Left upper arm, Patient Position: Sitting) | Pulse 82 | Temp 36.7 C (98.1 F) (Oral) | Resp 20 | Ht 1.722 m (5' 7.8") | Wt 77.5 kg (170 lb 12.8 oz) | SpO2 99% | BMI 26.12 kg/m | BSA 1.93 m Pain Score: 8 ECOG=1 General: Well developed, well nourished patient. Neuro: [...] rashes, petechiae, or purpura. Labs: Lab on 04/29/2019 Component Date Value URIC ACID, PLASMA (LAB) 04/29/2019 4.6 GLUCOSE, PLASMA (LAB) 04/29/2019 94 BUN, PLASMA (LAB) 04/29/2019 11 CREATININE PLASMA (LAB) 04/29/2019 0.70 EGFR - IRAQI 04/29/2019 >60 EGFR NON -IRAQI 04/29/2019 >60 SODIUM, PLASMA (LAB) 04/29/2019 140 [...] 3:28 PM Dictation initiated: Nico Waite MD 9 2:47 PM No results found for: CTCHEST The patient received education about their disease--including education on management and f /u of their disease. Data Review: ? Outside records are reviewed, including office visit notes, and other relevant diagnosti c imaging and laboratory study results. ? I reviewed the images myself () documented in this encounter Plan of Treatment [...] [address] | | | | | | [place], [place] | | | | | | [address] | | | | | | [phone] | | | | | | | | +--------+---------+ + + + documented as of this encounter Procedures + +--------+ + + + | Procedure Name | Priori | Date/Time | Associated Diagnosis | Comments | | | ty | | | | + +--------+ + + + | BCR - ABL RNA QUANT, | Routin | 04/15/2019 | | Results for this | | BLOOD | e | | | procedure are in the | | | | | | results section. | + +--------+ + + + documented in this encounter Results BCR - ABL RNA QUANT, BLOOD (04/15/2019) + +--------+ + + + | Component | Value | Ref Range | Performed | Pathologist | | | | | At | Signature | + +--------+ + + + | BCR-ABL | 0.1637 | | NON [facility] | | | ([facility] | | | LAB | | | NAL SCALE) | | | | | + +--------+ [...]
--- OUTSIDE RECORDS SUMMARY | ~2020-03-13 | XMS | Encounter Summary ---
Demographics + + + | Address | [address] | | | [place] [address] | + + + | Home Phone | | + + + | Preferred Language | Unknown | + + + | Marital Status | Single | + + + | Baptist Affiliation | NON | + + + | Race | White | + + + | Ethnic Group | Not or | + + + Author + + + | Author | [facility] | + + + | Organization | [facility] | + + + | Address [...] Team Providers + +------+ + | Care Thread Cutter Name | Role | Phone | + +------+ + | Burton Masters MD | PCP | | + +------+ + Reason for Visit Intake Referral (Routine) +--------+---------+ + + + [...] | | | Hematology | (chronic | [address] | | | | Malignancy | myelocytic | [address] | Ave | | | | | leukemia) | [facility] [facility], | [place], [place] | | | | | (HCC) | [place] [address] | [address] | | | | | Procedures | Phone: | Phone: | | | | | [place] NEW | [phone] | [phone] | | | | | PATIENT | Fax: | Fax: | | | | | [place] | [phone] | [phone] | | | | | EST PATIENT | | | | | | | LEVEL V | | | +--------+---------+ + + + + Encounter Details +--------+------+ + + + | Date | Type | Department | Care Team | Description | +--------+------+ + + + | 04/29/ | Lab | Laboratory at [facility] | | Chronic myeloid | | 2019 | | [address] | | leukemia, | | | | [place], [place] | | BCR/ABL-positive, | | | | [address] | | not having achieved | | | | [phone] | | remission ([facility]) | +--------+------+ + + + Social History [...] [address] | | | | | | [place], [place] | | | | | | [address] | | | | | | [phone] | | | | | | | | +--------+---------+ + + + documented as of this encounter Procedures + +--------+ + + + | Procedure Name | Priori | Date/Time | Associated Diagnosis | Comments | | | ty | | | | + +--------+ + + + | CBC AND AUTO DIFF | Routin | 04/29/2019 | Chronic myeloid | Results for this | | | e | 10:58 AM | leukemia, | procedure are in the | | | | PDT | BCR/ABL-positive, | results section. | | | | | not having achieved | | | | | | remission (HCC) | | + +--------+ + + + | [facility] - COMPLETE | Routin | 04/29/2019 | Chronic myeloid | Results for this | | METABOLIC SET | e | 10:58 AM | leukemia, | procedure are in the | | | | PDT | BCR/ABL-positive, | results section. | | | | | not having achieved | | | | | | remission (HCC) | | + +--------+ + + + | [facility] CBC W | Routin | 04/29/2019 | Chronic myeloid | Results for this | | DIFFERENTIAL | e | 10:58 AM | leukemia, | procedure are in the | | | | PDT | BCR/ABL-positive, | results section. | | | | | not having achieved | | | | | | remission (HCC) | | + +--------+ + + + | BCR - ABL RNA QUANT, | Routin | 04/29/2019 | Chronic myeloid | Results for this | | BLOOD | e | 10:58 AM | leukemia, | procedure are in the | | | | PDT | BCR/ABL-positive, | results section. | | | | | not having achieved | | | | | | remission (HCC) | | + +--------+ + + + | URIC ACID, PLASMA | Routin | 04/29/2019 | Chronic myeloid | Results for this | | | e | 10:58 AM | leukemia, | procedure are in the | | | | PDT | BCR/ABL-positive, | results section. | | | | | not having achieved | | | | | | remission (HCC) | | + +--------+ + + + documented in this encounter Results CBC AND AUTO DIFF (04/29/2019 10:58 AM PDT) + + + + + + | Component | Value | Ref Range | Performed | Pathologist | | | | | At | Signature | + + + + + + | WHITE CELL | 6.17 | 3.50 - 10.80 | [facility] | | | COUNT | | K/cu mm | LABORATORY | | | | | | SERVICES, | | | | | | [facility] | | | | | | [facility] | | + + + + + + | RED CELL | 4.59 | 4.00 - 5.20 | [facility] | | | COUNT | | M/cu mm | LABORATORY | | | | | | SERVICES, | | | | | | [facility] + | | | | | | [facility]AL[facility] | | + + + + + + | HEMOGLOBIN | 15.0 | 12.0 - 16.0 | [facility] | | | | | g/dL | LABORATORY | | | | | | SERVICES, | | | | | | [facility] + | | | | | | [facility]ALING | | + + + + + + | HEMATOCRIT | 43.0 | 36.0 - 46.0 % | [facility] | | | | | | LABORATORY | | | | | | SERVICES, | | | | | | [facility] + | | | | | | [facility]ALING | | + + + + + + | MCV | 93.7 | 80.0 - 100.0 fL | [facility] | | | | | | LABORATORY | | | | | | SERVICES, | | | | | | [facility] + | | | | | | [facility] | | + + + + + + | MCHC | 34.9 | 32.0 - 36.0 | [facility] | | | | | g/dL | LABORATORY | | | | | | SERVICES, | | | | | | [facility] + | | | | | | [facility]AL[facility] | | + + + + + + | RDW SD | 51.2 (H) | 35.1 - 46.3 fL | [facility] | | | | | | LABORATORY | | | | | | SERVICES, | | | | | | [facility] + | | | | | | [facility]AL[facility] | | + + + + + + | PLATELET | 177 | 150 - 400 K/cu | [facility] | | | COUNT | | mm | LABORATORY | | | | | | SERVICES, | | | | | | [facility] + | | | | | | [facility] | | + + + + + + | MPV | 8.6 (L) | 9.7 - 12.3 fL | [...] + + + + | NEUTROPHIL | 62.3 | 50.0 - 70.0 % | [facility] | | | % | | | LABORATORY | | | | | | SERVICES, | | | | | | [facility] + | | | | | | [facility]ALING | | + + + + + + | LYMPHOCYTE | 28.7 | 18.0 - 42.0 % | [facility] | | | % | | | LABORATORY | | | | | | SERVICES, | | | | | | [facility] | [facility] + | | | | | | [facility]ALING | | + + + + + + | MONOCYTE % | 7.1 | 3.5 - 9.0 % | [facility] | | | | | | LABORATORY | | | | | | SERVICES, | | | | | | [facility] + | | | | | | [facility]ALING | | + + + + + + | EOS % | 1.3 | 1.0 - 3.0 % | [facility] | | | | | | LABORATORY | | | | | | SERVICES, | | | | | | [facility] | [facility] + | | | | | | [facility]ALING | | + + + + + + | BASO % | 0.3 | 0.0 - 2.0 % | [facility] [...] + + + + | NEUTROPHIL | 3.84 | 1.80 - 7.70 | [facility] | | | # | | K/cu mm | LABORATORY | | | | | | SERVICES, | | | | | | [facility] | | | [facility] + | | | | | | HEALING | | + + + + + + | NEUTROPHIL | 3.84Comment: Preliminary | 1.80 - 7.70 | [facility] [...] + + + | MONOCYTE # | 0.44 | 0.10 - 0.90 | [facility] | | | | | K/cu mm | LABORATORY | | | | | | SERVICES, | | | | | | [facility] | [facility] + | | | | | | HEALING | | + + + + + + | EOS # | 0.08 | 0.00 - 0.50 | [facility] | | | | | K/cu mm | LABORATORY | | | | | | SERVICES, | | | | | | [facility] | | [facility] + | | | | | | HEALING | | + + + + + + | BASO # | 0.02 | 0.00 - 0.10 | [...] LABORATORY | [address] | [place] [address] | | | [facility] | | | | | HEALTH + [...] | | | LABORATORY | | | [place] | | | SERVICES, | | | [...] MDRD equation recommended by the National | [facility] | | Kidney Disease Education Program. [...] | + + + + + | [facility] | [address] | [place] [address] | | | SERVICES, CORE | [address] | | | + + + + + BCR - ABL RNA QUANT, BLOOD (04/29/2019 10:58 AM PDT) + +-------+ + + + | Component | Value | Ref Range | Performed | Pathologist | | | | | At | Signature | + +-------+ + + + | SPECIMEN | Blood | | [facility] | | | TYPE | | | DIAGNOSTIC | | | SUBMITTED | | | | | | | | | LABORATORIE | | | | | | S | | + +-------+ + + + | BCR-ABL | 0.43 | % | [facility] | | | [...] monitoring As per your request, to | [facility] | | determine the level of minimal residual leukemia, we have completed a | DIAGNOSTIC | | quantitative RT-PCR analysis of BCR-ABL RNA, a marker of the presence | LABORATORIES | | and amount of transcriptionally active [place] chromosome | | | positive leukemia cells. [...] from the EAC ([place] Against Cancer) group [Gabert et al | | | Leukemia 17: 9480-2784 (2003)]. The quantitative expression level for | | [...] | | | characteristics determined by the [facility]. | | | It has not been cleared or approved by the Food and Drug | | | Administration. FDA approval is not required for clinical use of the | | | test, and therefore validation was done as required under the | | | requirements of the Clinical Laboratory Improvement Act of 1988. The | | | [facility] is a fully licensed and/or | | | accredited clinical laboratory under CLIA, CAP, and the State of | | | [place]. Reviewed and electronically signed by DANIELLE GROVER MD,PhD | | | 05/02/2019 11:00 AM | | + + + + + + + + | Performing | Address | City/State/Zipcode | Phone Number | | Organization | | | | + + + + + | [facility] | [address] | [place] [address] | | | DIAGNOSTIC | [address] [...] + | [facility] | [address] | [place] [address] | | | SERVICES, CORE | [address] [...]
--- OUTSIDE RECORDS SUMMARY | ~2020-03-13 | XMS | Encounter Summary ---
Demographics + + + | Address | [address] | | | [place] [address] | + + + | Home Phone [...] Team Providers + +------+ + | Care Loftsman Name | Role | Phone | + +------+ + | Burton Masters MD | PCP | | + +------+ + Reason for Visit + + + | Reason | Comments | + + + | Lab Order | | + + + | Abdominal Pain | | + + + Encounter Details +--------+ + + + + | Date | Type | Department | Care Team | Description | +--------+ + + + + | 11/12/ | Telephone | [facility] | SonamBurton romero Matthias, | Lab Order; Abdominal | | 2019 | | [facility] | [address] | Pain | | | | [address] | [place], [place] | | | | | [place], [place] | [address] | | | | | [address] | | | | | | [phone] | | | +--------+ + + + [...] [place] | | | | | | [address] | | | | | | | | +--------+ + + + + | 03/18/ | Office | Physical Medicine | Jovana Dawson | | | 2019 | Visit | and Rehabilitation | MELANY Man [address] | | | | | | [facility] | | | | | | [address] [place] | | | | | | [address] | | | | | | | | +--------+ + + + + | 04/01/ | Appointment | Oncology | Deny Mcmanus, | | | 2019 | | | MD [address] | | | | | | [place] | | | | | | [place] [address] | | | | | | [phone] | | | | | | | | +--------+ + + + + | 04/08/ | Procedure | Physical Medicine | Leonard De Leon | | | 2019 | visit | and Rehabilitation | MD Kiki Win | | | | | | [place] | | | | | | [address] | | | | | | | | +--------+ + + + + | 04/30/ | Office | Cardiology | Shad Saavedra, | | | 2019 | Visit | | MD Alan Cruz | | | | | | [place] [address], | | | | | | [place] [address] | | | | | | [phone] | | | | | | | | +--------+ + + + + documented as of this encounter Visit Diagnoses Not on filedocumented in this encounter"
--- OUTSIDE RECORDS SUMMARY | ~2020-03-13 | XMS | Encounter Summary ---
Demographics + + + | Address | [address] | | | [place] [address] | + + + | Home Phone | | + + + | Preferred Language | Unknown | + + + | Marital Status | | + + + | Religion Affiliation | Unknown | + + + | Race | Unknown | + + + | Ethnic Group | Unknown | + + + Author + + + | Author | [facility] | | | and [place] | + + + | Organization | [facility] | | [...] Team Providers + +------+ + | [employer] Marketing Executive Name | Role | Phone | + [...] Description | +--------+--------+ + + + | 10/27/ | Refill | [facility] | Burton Masters, | Medication Refill | | 2019 | | [facility] [place] | [address] | | | | | [address] | [place] | | | | | [place] | [address] | | | | | [address] | | | | | | [phone] | | | +--------+--------+ + + + [...] [place] | | | | | | [address] | | | | | | | [...] [place] | | | | | | [address] | | | | | | | | +--------+ + + + + | 04/01/ | Appointment | Oncology | Deny Mcmanus, | | | 2019 | | | MD [address] | | | | | | [place] | | | | | | [place] [address] | | | | | | [phone] | | | | | | | | +--------+ + + + + | 04/08/ | Procedure | Physical Medicine | Leonard De Leon | | | 2019 | visit | and Rehabilitation | MD Kiki Win | | | | | | [place] | | | | | | [address] | | | | | | | | +--------+ + + + + | 04/30/ | Office | Cardiology | Shad Saavedra, | | | 2019 | Visit | | MD Alan [place] | | | | | | [place], | | | | | | [place] [address] | | | | | | [phone] | | | | | | | | +--------+ + + + + documented as of this encounter Visit Diagnoses Not on filedocumented in this encounter"
--- OUTSIDE RECORDS SUMMARY | ~2020-03-13 | XMS | Encounter Summary ---
Demographics + + + | Address | [address] | | | [place] [address] | + + + | Home Phone [...] Team Providers + +------+ + | Care Oncology Social Work Name | Role | Phone | + [...] + + | 04/25/ | Telephone | [facility] | Deny Mcmanus, | Other | | 2019 | | [facility] | [address] | | | | | [facility] [address] [place], | | | | | [place] | [place] [address] | | | | | [place] [address] | [phone] | | | | | [phone] | | | +--------+ + + + [...] [place] | | | | | | [address] | | | | | | | | +--------+ + + + + | 03/18/ | Office | Physical Medicine | Jovana Dawson | | | 2019 | Visit | and Rehabilitation | MELANY Man [address] | | | | | [address] | | | | | | [address] [place] | | | | | | [address] | | | | | | | | +--------+ + + + + | 04/01/ | Appointment | Oncology | Deny Mcmanus, | | | 2019 | | | [address] | | | | | | [address] [place] | | | | | | [place] [address] | | | | | | [phone] | | | | | | | | +--------+ + + + + | 04/08/ | Procedure | Physical Medicine | Leonard De Leon | | | 2019 | visit | and Rehabilitation | MD Kiki Win | | | | | | [place] | | | | | | [address] | | | | | | | | +--------+ + + + + | 04/30/ | Office | Cardiology | Shad Saavedra, | | | 2019 | Visit | | MD Alan Cruz | | | | | | [place] | | | | | | [place] [address] | | | | | | [phone] | | | | | | | | +--------+ + + + + documented as of this encounter Visit Diagnoses Not on filedocumented in this encounter"
--- OUTSIDE RECORDS SUMMARY | ~2020-03-13 | XMS | Encounter Summary ---
Demographics + + + | Address | [address] | | | [place] [address] | + + + | Home Phone [...] Team Providers + +------+ + | [employer] Name | Role | Phone | + +------+ + | No, Physician | PCP | Unavailable | + +------+ + Reason for Visit + + + | Reason | Comments | + + + | | | | Complications | | + + + Auth/Cert +--------+--------+ + + + + | Status | Reason | Specialty | Diagnoses / | Referred By | Referred To | | | | | Procedures | Contact | Contact | +--------+--------+ + + + + | | | | Diagnoses | | | | | | | Nausea and | | | | | | | vomiting in | | | | | | | adult | | | | | | | Abdominal | | | | | | | wall | | | | | | | cellulitis | | | | | | | Fever in | | | | | | | adult | | | +--------+--------+ + + + + Encounter Details +--------+ + + + + | Date | Type | Department | Care Team | Description | +--------+ + + + + | 10/18/ | Emergency | [facility] | Adrian Bella, | Abdominal wall | | 2016 - | | [facility] | MD [address] | cellulitis (Primary | | | | [address] | [place] | Dx); Fever in adult; | | 10/19/ | | [place] | [id number] | Nausea and vomiting | | 2016 | | [address] | | in adult | | | | [phone] | Dorota Beal | | | | | | DO [place] [address] | | | | | | [address] [place] | | | | | | [address] | | | | | | | [...] + + + | Blood Pressure | 118/79 | 10/19/2016 8:00 AM | | | | | PST | | + + + + + | Pulse | 77 | 10/19/2016 8:00 AM | | | | | PST | | + + + + + | Temperature | 36.7 C (98.1 F) | 10/19/2016 8:00 AM | | | | | PST | | + + + + + | Respiratory Rate | 16 | 10/19/2016 8:00 AM | | | | | PST | | + + + + + | Oxygen Saturation | 98% | 10/19/2016 4:00 AM | | | | | PST | | + + + + + | Inhaled Oxygen | - | - | | | Concentration | | | | + + + + + | Weight | 107 kg (236 lb) | 10/18/2016 8:21 AM | | | | | PST | | + + + + + | Height | 172.7 cm (5' 8") | 10/18/2016 8:21 AM | | | | | PST | | + + + + + | Body Mass Index | 35.88 | 10/18/2016 8:21 AM | | | | | PST | | + + + + + documented in this encounter Discharge Instructions Instructions Barbie Arshad RN - 10/19/2016 Recognizing and Treating Wound Infection Wounds can become infected with harmful germs (bacteria). This prevents healing. It also in creases your risk of scars. In some cases, the infection may spread to other parts of your b truong. And infection with the bacteria that cause tetanus can be fatal. Know what to look for and get prompt treatment for infection. Risk factors A wound is more likely to become infected if it: Results from a hole (puncture), such as from a nail or piece of glass Results from a human or animal bite Isn't cleaned or treated within 8 hours Occurs in your hand, foot, leg, armpit, or groin (the area where your belly meets your t highs) Contains dirt or saliva Heals very slowly Occurs in a person with diabetes, alcoholism, or a compromised immune system Symptoms of infection Call your healthcare provider at the first sign of infection, such as: Yellow, yellow-green, or foul-smelling drainage from a wound More pain, swelling, or redness in or near a wound A change in the color or size of a wound Red streaks in the skin around the wound Fever Treatment Treatment is likely to depend on the type of infection you have, and how serious it is. You r healthcare provider may prescribe oral antibiotics to help fight bacteria. Your provider m ay also flush the wound with an antibiotic solution or apply an antibiotic ointment. Sometim es a pocket of pus (abscess) may form. In that case, the abscess will be opened and the flui d drained. You may need hospital care if the infection is very severe. Preventing wound infection Follow these steps to help keep wounds from getting infected: Wash the wound right away with soap and water. Apply a small amount of antibiotic ointment. You can buy this without a prescription. Cover wounds with a bandage or gauze dressing. Change daily. Keep the wound clean and dry for the first 24 hours. Change the dressing daily using sterile gloves. [id number] [employer]. [address] [place], [place] [id number]. All righ ts reserved. This information is [...] | | 0 | | | | Sjfoghir-Spi-Zd-FA | mouth Daily. | | | | 7 | | (PRE-CHIDI PO) | | | | | | + + + +---------+ + + | | Take 1 tablet by | | 0 | | | | sulfamethoxazole-tri | mouth 2 times daily. | | | | 7 | | methoprim (BACTRIM | | | | | | | DS) 800-160 mg per | | | | | | | tablet | | | | | | + + + +---------+ + + documented as of this encounter Progress Notes Dorota Beal, DO - 10/19/2016 9:23 AM PSTPt seen and examined. Pain has signific antly improved throughout the night. Denies F/C over night. continues withou t difficulty. States that nausea has resolved. Denies discharge from incision site. C/o co ugh. No other concerns. VSS. Afebrile. Has remained afebrile throughout admission Gen: NAD HRRR. LCTA Abd: Soft. Appropriately tender. Erythema has receded. FF. Incision is C/D/I. Ext: tr edema b/l LE Labs: 5.5>10.7/30.9<175 A/P: 1. Cellulitis. Significantly improved s/p 24 hours of IV antibiotics. Will have rec eive next dose due at 1200 and this DC home. 2. Steri strips removed. Reappy prior to discharge. Abdominal binder. Electronically sig angel by Dortoa Beal DO at 10/19/2016 9:26 AM Deepthi Wynn RN - 10/18/2016 12: 50 PM PSTPt transferred to room 350 from the ER. See vitals and assessment.Electronically si gned by Deepthi Pereira RN at 10/18/2016 1:06 PM Fatimah Fajardo PharmD - 10/18/2016 12:1 0 PM PST PHARMACY SERVICES: ADMISSION MEDICATION REVIEW Ashley Webb is a 31 y.o. female admitted on 10/18/16. Patient is a reliable historian. Location of Patient when reviewed: [x] ED [] Medical Floor Patient s prior to admit medication and over the counter (OTC) medications/herbal supplem ents list obtained from: [x] Verbal interview (patient is able to recall drug name, strength, frequency, etc.) [] Patient/family member provided a complete current medication list or bottles [] MAR from SNF facility: [] Doctor's office: [x] Pharmacy list names: [facility] [x] [employer] insurance reported information [] Care Everywhere [] Other sources: Vaccines up to date? Yes No Unsure Influenza [x] [] [] Pneumococcal [] [x] [] Tdap [x] [] [] Shingles [] [x] [] Noted medications discrepancies or medication-related issues: Removed therapy: Medication: Reason for Removal: Cephalexin 500mg Dr. Beal d/c'd yesterday and put pt on bactrim Other: Pt. Is currently Medication review performed and electronically signed by Edelmira Meas, Coverstitch Machine Operator 10/18/20 16 11:59 Reviewed by Fatimah Vee PHARMD 10/18/2016 12:08 documented in thi s encounter Plan of Treatment +--------+ + + + + | Date | Type | Specialty | Care Team | Description | +--------+ + + + + | 03/17/ | Virtual | Neurosurgery | Zuhair Florse | | 2019 | Office | | MD Kiki Yee W | | | | Visit | | [address] | | | | | | [place] | | | | | | [address] | | | | | | | | +--------+ + + + + | 03/18/ | Office | Physical Medicine | Jovana Dawson | | | 2019 | Visit | and Rehabilitation | MELANY Man [address] | | | | | [address] | | | | | | [address] [place] | | | | | | [address] | | | | | | | | +--------+ + + + + | 04/01/ | Appointment | Oncology | Deny Mcmanus, | | 2019 | | | MD [address] | | | | | | [place], | | | | | | [place] [address] | | | | | | [phone] | | | | | | | | +--------+ + + + + | 04/08/ | Procedure | Physical Medicine | Leonard De Leon | | | 2019 | visit | and Rehabilitation | MD Audelia [address] | | | | | | [facility] [place] | | | | | | [address] | | | | | | | | +--------+ + + + + | 04/30/ | Office | Cardiology | Shad Saavedra, | | | 2019 | Visit | | [address] | | | | | | [place], | | | | | | [place] [address] | | | | | | [phone] | | | | | | | | +--------+ + + + + + +------+--------+ + + | Name | Type | Priori | Associated Diagnoses | Date/Time | | | | ty | | | + +------+--------+ + + | ED INFORMATION | KEYUR | Routin | | 10/18/2016 8:17 AM | | EXCHANGE | | e | | PST | + +------+--------+ + + documented as of this encounter Procedures + +--------+ + + + | Procedure Name | Priori | Date/Time | Associated Diagnosis | Comments | | | ty | | | | + +--------+ + + + | CBC WITH | Routin | 10/19/2016 | | Results for this | | DIFFERENTIAL | e | 6:20 AM | | procedure are in the | | | | PST | | results section. | + +--------+ + + + | CBC W/AUTO | STAT | 10/18/2016 | | Results for this | | DIFFERENTIAL | | 8:34 AM | | procedure are in the | | | | PST | | results section. | + +--------+ + + + | EXTRA GREEN TOP TUBE | Routin | 10/18/2016 | | Results for this | | | e | 8:34 AM | | procedure are in the | | | | PST | | results section. | + +--------+ + + + | EXTRA GOLD TOP TUBE | Routin | 10/18/2016 | | Results for this | | | e | 8:34 AM | | procedure are in the | | | | PST | | results section. | + +--------+ + + + | EXTRA BLUE TOP TUBE | Routin | 10/18/2016 | | Results for this | | | e | 8:34 AM | | procedure are in the | | | | PST | | results section. | + +--------+ + + + | C-REACTIVE PROTEIN, | STAT | 10/18/2016 | | Results for this | | HIGH SENSITIVITY | | 8:34 AM | | procedure are in the | | | | PST | | results section. | + +--------+ + + + | COMPREHENSIVE | STAT | 10/18/2016 | | Results for this | | METABOLIC PANEL | | 8:34 AM | | procedure are in the | | | | PST | | results section. | + +--------+ + + + | ED INFORMATION | Routin | 10/18/2016 | | | | EXCHANGE | e | 8:17 AM | | | | | | PST | | | + +--------+ + + + documented in this encounter Results CBC with Differential (10/19/2016 6:20 AM PST) + + + + + + | Component | Value | Ref Range | Performed | Pathologist | | | | | At | Signature | + + + + + + | WBC | 5.5 | 4.0 - 11.0 K/uL | [facility] | | | | | | [facility] | | [facility] - | | | | | | [facility]ORY | | + + + + + + | RBC | 3.39 (L) | 3.70 - 5.20 | [facility] | | | | | M/uL | [facility] | | | [facility] | [facility] | | | | | | [facility] - | | | | | | LAB[facility]ATORY | | + + + + + + | Hemoglobin | 10.7 (L) | 11.5 - 16.0 | [facility] | | | | | g/dL | [facility] | | | | | | [facility] | | | | | | [facility] - | | | | | | LABORATORY | | + + + + + + | Hematocrit | 30.9 (L) | 34.0 - 47.0 % | [facility] | | | | | | [facility] | | | | | | [facility] | | | | | | [facility] - | | | | | | LABORATORY | | + + + + + + | MCV | 91.3 [...] + + + + | Platelet | 175 | 140 - 440 K/uL | [facility] [...] + + + + | % | 53.7 | 45.0 - 82.0 % | [facility] | | | Neutrophils | | | [facility] | | | | | | [facility] | | | | | | [facility] - | | | | | | LABORATORY | | + + + + + + | % | 36.4 | 20.0 - 45.0 % | [facility] | | | Lymphocytes | | | [facility] | | | | | | [facility] | | | | | | C[facility] - | | | | | | LABORATORY | | + + + + + + | % Monocytes | 5.2 | 4.0 - 12.0 % | [facility] | | | | | | [facility] | | | | | | [facility] | | | | | | [facility] - | | | | | | LABORATORY | | + + + + + + | % | 3.5 | 0.0 - 5.0 % | [facility] [...] + + + + | Absolute | 3.00 | 1.80 - 8.50 | [facility] | | | Neutrophils | | K/uL | [facility] | | | | | | [facility] | | | | | | CENTER - | | | | | | LABORATORY | | + + + + + + | Absolute | 2.00 | 0.60 - 3.20 | [facility] | [...] [address] | [place] | [phone] | | [facility] | | [address] | | | - LABORATORY | | | | + + + + + Extra Gold Top Tube (10/18/2016 8:34 AM PST) + +-------+ + + + | Component | Value | Ref Range | Performed | Pathologist | | | | | At | Signature | + +-------+ + + + | Extra Gold | Done | | [facility] | | | Top Tube | | | [facility] | | | | | | [...] [address] | [place] | [phone] | | [facility] | | [address] | | | - LABORATORY | | | | + + + + + Extra Green Top Tube (10/18/2016 8:34 AM PST) + +-------+ + + + | Component | Value | Ref Range | Performed | Pathologist | | | | | At | Signature | + +-------+ + + + | Extra Green | Done | | [facility] | | | Top Tube | | | [facility] | | [...] [address] | [place] | [phone] | | [facility] | | [address] | | | - LABORATORY | | | | + + + + + Extra Blue Top Tube (10/18/2016 8:34 AM PST) + +-------+ + + + [...] [address] | [place] | [phone] | | [facility] | | [address] | | | - LABORATORY | | | | + + + + + C-Reactive Protein, High Sensitivity (10/18/2016 8:34 AM PST) + + + + + + | Component | Value | Ref Range | Performed | Pathologist | | | | | At | Signature | + + + + + + | CRP, High | 66.51 (H) | <=3.00 mg/L | [facility] | | | Sensitive | | | [facility] | | [...] + | [facility] | [address] | [place] | [phone] | | [facility] | | [address] | | | - LABORATORY | | | | + + + + + Comprehensive Metabolic Panel (10/18/2016 8:34 AM PST) + + + + + [...] + + | K | 4.2 | 3.5 - 5.1 | [facility] | [...] + + + | CO2 | 22 (L) | 24 - 31 mmol/L | [...] + + + + | Glucose | 89 | 70 - 109 mg/dL | [facility] | | | | | | [facility] | | | | | | MEDICAL | | | | | | C[facility] - | | | | | | LABORATORY | | + + + + + + | BUN | 17 | 7 - 18 mg/dL | [facility] | | | | | | [facility] | | | | | | [facility] | | | | | | CENTER - | | | | | | LABORATORY | | + + + + + + | Creatinine | 0.85 | 0.60 - 1.30 | [facility] | | | | | mg/dL | [facility] | | | | | | [facility] | | | | | | C[facility] - | | | | | | LABORATORY | | + + + + + + | eGFR if not | >60Comment: GLOMERULAR | >=60 | [facility] | | | | FILTRATION | mL/min/1.73m2 | [facility] | | | FAROESE | RATE,ESTIMATED | | MEDICAL | | | | mL/min/1.48k1Ekan than | | CENTER - | | [...] + + + + | Calcium | 7.9 (L) | 8.3 - 10.5 | [facility] | | | | | mg/dL | [facility] | | | | | | MEDICAL | | | | | | CENTER - | | | | | | LABORATORY | | + + + + + + | Albumin | 2.5 (L) | 3.2 - 5.0 g/dL | [facility] | | | | | | [facility] | | | | | | MEDICAL [...] + + + + | Total | 5.1 (L) | 6.0 - 7.8 g/dL | [facility] | | | Protein | | | [facility] | | | | | | MEDICAL | | | | | | CENTER - | | | | | | LABORATORY | | + + + + + + | AST | 45 (H)Comment: This is | 10 - 42 U/L | [facility] | | | | an appended report. | | [facility] | | | | These results have been | | MEDICAL | | | | appended to a previously | | CENTER - | | | | preliminary verified | | LABORATORY | | | | report. | | | | + + + + + + | ALT | 66 (H)Comment: This is | 6 - 45 U/L | [facility] | | | | an appended report. | | [facility] | | | | These results have been | | MEDICAL | | | | appended to a previously | | CENTER - | | | | preliminary verified | | LABORATORY | | | | report. | | | | + + + + + + | Alkaline | 141 (H)Comment: This is | 40 - 110 U/L | [facility] | | | Phosphatase | an appended report. | | [facility] | | | | These results have been | | MEDICAL | [...] + + + + | Albumin/Simona | 1.0 | 0.8 - 2.0 | [facility] | | | bulin Ratio | | | [facility] | | | | | | MEDICAL | | | | | | CENTER - | | | | | | LABORATORY | | + + + + + + | BUN/Creatin | 20.0 | | [facility] | | | ine [...] + | [facility] | [address] | [place] | [phone] | | [facility] | | [address] | | | - LABORATORY | | | | + + + + + CBC w/ Auto Differential (10/18/2016 8:34 AM PST) + + + + + + | Component | Value | Ref Range | Performed | Pathologist | | | | | At | Signature | + + + + + + | WBC | 7.3 | 4.0 - 11.0 K/uL | [facility] | | | | | | [facility] | | | | | | MEDICAL | | | | | | CENTER - | | | | | | LABORATORY | | + + + + + + | RBC | 3.76 | 3.70 - 5.20 | [facility] | | | | | M/uL | [facility] | | | | | | MEDICAL | | | | | | CENTER - | | | | | | LABORATORY | | + + + + + + | Hemoglobin | 11.8 | 11.5 - 16.0 | [facility] | | | | | g/dL | [facility] | | | | | | MEDICAL | | | | | | CENTER - | | | | | | LABORATORY | | + + + + + + | Hematocrit | 33.9 (L) | 34.0 - 47.0 % | [facility] | | | | | | [facility] | | | | | | [facility] | | | | | | CENTER - | | | | | | LABORATORY | | + + + + + + | MCV | 90.2 | 83.0 - 101.0 fL | [facility] [...] + + + + | RDW-CV | 13.4 | <15.0 % | [facility] | | | | | | [facility] | | | | | | MEDICAL | | | | | | CENTER - | | | | | | LABORATORY | | + + + + + + | Platelet | 211 | 140 - 440 K/uL | [facility] [...] + + + + | % | 77.0 | 45.0 - 82.0 % | [facility] | | | Neutrophils | | | [facility] | | | | | | MEDICAL | | | | | | CENTER - | | | | | | LABORATORY | | + + + + + + | % | 14.6 (L) | 20.0 - 45.0 % | [facility] | | | Lymphocytes | | | [facility] | | | | | | MEDICAL | | | | | | CENTER - | | | | | | LABORATORY | | + + + + + + | % Monocytes | 5.1 | 4.0 - 12.0 % | [facility] | | | | | | [facility] | | | | | | MEDICAL | | | | | | CENTER - | | | | | | LABORATORY | | + + + + + + | % | 2.0 | 0.0 - 5.0 % | [facility] | | | Eosinophils | | | [facility] | | | | | | MEDICAL | | | | | | CENTER - | | | | | | LABORATORY | | + + + + + + | % Basophils | 1.3 (H) | 0.0 - 1.0 % | [facility] | | | | | | [facility] | | | | | | [facility]ICAL | | | | | | CENTER - | | | | | | LABORATORY | | + + + + + + | Absolute | 5.60 | 1.80 - 8.50 | [facility] | | | Neutrophils | | K/uL | [facility] | | | | | | [facility]ICAL | | | | | | CENTER - | | | | | | LABORATORY | | + + + + + + | Absolute | 1.10 | 0.60 - 3.20 | [facility] | [...] [address] | [place] | [phone] | | [facility] | | [address] | | | - LABORATORY | | | | + + + + + documented in this encounter Visit Diagnoses + + | Diagnosis | + + | Abdominal wall cellulitis - Primary Cellulitis and abscess of trunk | + + | Fever in adult | + + | Nausea and vomiting in adult Nausea with vomiting | + + documented in this encounter Administered Medications + +---------+ +------+-------+------+ | Medication Order | MAR | Action | Dose | Rate | Site | | | Action | Date | | | | + +---------+ +------+-------+------+ | ampicillin-sulbactam (UNASYN) 3 | New Bag | 10/19/20 | 3 g | 200 | | | g in sodium chloride 0.9% 100 mL | | 16 11:21 | | mL/hr | | | IVPB 3 g, Intravenous, | | AM PST | | | | | Administer over 30 Minutes, EVERY | | | | | | | 6 HOURS (4 times per day), First | | | | | | | dose on Mon10/18/16 at 1315, | | | | | | | Activate system and mix before | | | | | | | use., Indications: Post-Operative | | | | | | | Wound Infection | | | | | | + +---------+ +------+-------+------+ +---------+ +-----+-------+---+ | New Bag | 10/19/20 | 3 g | 200 | | | | 16 5:06 | | mL/hr | | | | AM PST | | | | +---------+ +-----+-------+---+ | New Bag | 10/18/20 | 3 g | 200 | | | | 16 11:16 | | mL/hr | | | | PM PST | | | | +---------+ +-----+-------+---+ +---+---+ | | | +---+---+ + +-------+ +--------+---+---+ | docusate sodium (COLACE) | Given | 10/19/20 | 100 mg | | | | capsule 100 mg 100 mg, Oral, 2 | | 16 9:21 | | | | | TIMES DAILY, First dose on e | | AM PST | | | | | 10/18/16 at 1315 | | | | | | + +-------+ +--------+---+---+ +-------+ +--------+---+---+ | Given | 10/18/20 | 100 mg | | | | | 16 8:31 | | | | | | PM PST | | | | +-------+ +--------+---+---+ | Given | 10/18/20 | 100 mg | | | | | 16 1:19 | | | | | | PM PST | | | | +-------+ +--------+---+---+ +---+---+ | | | +---+---+ + +-------+ +--------+---+---+ | guaiFENesin-dextromethorphan | Given | 10/19/20 | 10 mLs | | | | (ROBITUSSIN DM) 100-10 mg/5 mL | | 16 9:24 | | | | | liquid 10 mL 10 mL, Oral, EVERY | | AM PST | | | | | 4 HOURS PRN, Cough, Starting Wed | | | | | | | 10/19/16 at 0902 | | | | | | + +-------+ +--------+---+---+ +---+---+ | | | +---+---+ + +-------+ +------+---+---+ | HYDROmorphone (DILAUDID) | Given | 10/18/20 | 1 mg | | | | injection 1 mg 1 mg, | | 16 8:37 | | | | | Intravenous, ONCE, 10/18/16 | | AM PST | | | | | at 0830, For 1 dose | | | | | | + +-------+ +------+---+---+ +---+---+ | | | +---+---+ + +-------+ +-------+---+---+ | ketorolac (TORADOL) injection | Given | 10/18/20 | 30 mg | | | | 30 mg 30 mg, Intravenous, ONCE, | | 16 9:54 | | | | | 10/18/16 at 0955, For 1 dose | | AM PST | | | | + +-------+ +-------+---+---+ +---+---+ | | | +---+---+ + +-------+ +-------+---+---+ | ketorolac (TORADOL) injection | Given | 10/19/20 | 30 mg | | | | 30 mg 30 mg, Intravenous, EVERY | | 16 9:21 | | | | | 6 HOURS (4 times per day), First | | AM PST | | | | | dose on Mon10/18/16 at 1315, For | | | | | | | 48 hours, If urine output is | | | | | | | less that 240ml/8 hours (30ml/hr) | | | | | | | or if signs of bleeding, contact | | | | | | | MD and hold ketorolac and | | | | | | | ibuprofen., | | | | | | + +-------+ +-------+---+---+ +-------+ +-------+---+---+ | Given | 10/19/20 | 30 mg | | | | | 16 5:06 | | | | | | AM PST | | | | +-------+ +-------+---+---+ | Given | 10/18/20 | 30 mg | | | | | 16 11:16 | | | | | | PM PST | | | | +-------+ +-------+---+---+ +---+---+ | | | +---+---+ + +---------+ +---+ +---+ | lactated ringers (LR) infusion | New Bag | 10/19/20 | | 75 mL/hr | | | at 75 mL/hr, Intravenous, | | 16 2:35 | | | | | CONTINUOUS, Starting Mon10/18/16 | | AM PST | | | | | at 1055 | | | | | | + +---------+ +---+ +---+ +---------+ +---+ +---+ | New Bag | 10/18/20 | | 75 mL/hr | | | | 16 11:08 | | | | | | AM PST | | | | +---------+ +---+ +---+ +---+---+ | | | +---+---+ + +---------+ +---------+---+ + | nicotine (NICODERM) 14 mg/24 hr | Patch | 10/19/20 | 1 patch | | Deltoid- | | 1 patch 1 patch, Transdermal, | Applied | 16 9:07 | | | Left | | DAILY, First dose on Mon10/18/16 | | AM PST | | | | | at 1800 | | | | | | + +---------+ +---------+---+ + + + +---------+---+ + | Patch Applied | 10/18/20 | 1 patch | | Arm-Righ | | | 16 6:43 | | | t Upper | | | PM PST | | | | + + +---------+---+ + +---+---+ | | | +---+---+ + +-------+ +------+---+---+ | ondansetron (ZOFRAN) injection | Given | 10/18/20 | 8 mg | | | | 8 mg 8 mg, Intravenous, ONCE, | | 16 8:37 | | | | | 10/18/16 at 0830, For 1 dose | | AM PST | | | | + +-------+ +------+---+---+ +---+---+ | | | +---+---+ + +-------+ +-------+---+---+ | oxyCODONE (ROXICODONE) tablet | Given | 10/19/20 | 15 mg | | | | 5-15 mg 5-15 mg, Oral, EVERY 3 | | 16 11:57 | | | | | HOURS PRN, Pain, Starting Tue | | AM PST | | | | | 10/18/16 at 1048, If ineffective | | | | | | | or not tolerated, contact | | | | | | | prescriber, | | | | | | + +-------+ +-------+---+---+ +-------+ +-------+---+---+ | Given | 10/19/20 | 15 mg | | | | | 16 9:07 | | | | | | AM PST | | | | +-------+ +-------+---+---+ | Given | 10/19/20 | 15 mg | | | | | 16 5:58 | | | | | | AM PST | | | | +-------+ +-------+---+---+ +---+---+ | | | +---+---+ + +-------+ +---------+---+---+ | promethazine (PHENERGAN) (IV | Given | 10/18/20 | 12.5 mg | | | | ONLY) injection 12.5 mg 12.5 mg, | | 16 9:47 | | | | | Intravenous, ONCE, 10/18/16 | | AM PST | | | | | at 0945, For 1 dose, Vesicant. | | | | | | | When ordered IV push: Dilute to | | | | | | | 10-20mL with NS. Give over 2-3 | | | | | | | minutes into large vein. Do not | | | | | | | give in hand/wrist or foot/ankle | | | | | | | vein. Max dose 12.5mg if giving | | | | | | | peripherally., | | | | | | + +-------+ +---------+---+---+ +---+---+ | | | +---+---+ documented in this encounter
--- OUTSIDE RECORDS SUMMARY | ~2020-03-13 | XMS | Encounter Summary ---
Demographics + + + | Address | [address] | | | [place] [address] | + + + | Home Phone [...] | Author | [facility] | | | and [place] | + + + | Organization | [facility] | | [...] Team Providers + +------+ + | Care Newspaper Columnist Name | Role | Phone | + [...] + + | Closed | Specialty | Neurology | Diagnoses | Sonam | Deepak, | | | Services | | Right foot | Burton Rizzo, | Ana Sandoval, | | | Required | | drop | MD [address] | [address] | [address] | [address], | | | | | | [place], | [place] | | | | | | [place] [address] | [place], [place] | | | | | | Phone: | [address] Phone: | | | | | | [phone] | [phone] | | | | | | Fax: | Fax: | | | | | | [phone] | [phone] | +--------+ + + + + + Reason for Visit + + + | Reason | Comments | + + + | Results | | + + + | Numbness | moving up leg, now closer to hip, only on right leg | + + + | ED Follow-up | | + + + Encounter Details +--------+---------+ + + + | Date | Type | Department | Care Team | Description | +--------+---------+ + + + | 01/03/ | Office | [facility] | Burton Masters, | Right foot drop | | 2020 | Visit | [facility] [place] | [address] | (Primary Dx); Back | | | | [address] | [place], [place] | pain, unspecified | | | | [place], [place] | [address] | back location, | | | | [address] | | unspecified back | | | | [phone] | | pain laterality, | | | [...] + | Blood Pressure | 116/68 | 01/03/2020 11:28 AM | | | | | PST | | + + + + + | Pulse | 93 | 01/03/2020 11:28 AM | | | | | PST | | + + + + + | Temperature | 36.9 C (98.4 F) | 01/03/2020 11:28 AM | | | | | PST | | + + + + + | Respiratory Rate | - | - | | + + + + + | Oxygen Saturation | 100% | 01/03/2020 11:28 AM | | | | | PST [...] encounter Progress Notes Burton Masters MD - 01/03/2020 11:30 AM PSTFormatting of this note might be different f rom the original. Subjective: Patient ID: Ashley Webb is a 34 y.o. female. Chief Complaint Patient presents with Results Numbness moving up leg, now closer to hip, only on right leg ED Follow-up HPI Patient has had a right foot drop for over 6 weeks. presneted 3 days ago with this and may d mri head and all of spine that dont't explain liz foot frop and now having light touch ane sthesia in lateral thigh wrapping around to anterior lower extremity below the knee and the entire foot is insensitive to light touch. Past Medical History: Diagnosis Date Abdominal pain Abnormal vaginal bleeding Abscess of trunk Anxiety Bipolar disease, chronic ([facility]) Breast lump Chest pain, unspecified Chronic low back pain 04/16/2015 Chronic myeloid leukemia, BCR/ABL-positive, not having achieved remission ([facility]) 9 Cough DDD (degenerative disc disease), lumbar 04/16/2015 Depression Engorgement of breasts associated with childbirth, delivered Fatigue Female pelvic pain Fibromyalgia Flu Generalized anxiety disorder Headache Insomnia Knee pain Lumbar radiculopathy - left lower extremity 04/16/2015 Missed Mucocele of salivary gland Muscle spasm Obesity Palpitations Panic disorder Pulpitis Sciatica Shoulder pain SVT (supraventricular tachycardia) ([facility]) Tachycardia Tobacco use Family History [...] Not on file Occupational History 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 Musculoskeletal: Negative. Skin: Negative. Neurological: Positive for focal weakness. Endo/Heme/Allergies: Negative. Psychiatric/Behavioral: Negative. Objective: BP 116/68 | Pulse 93 | Temp 36.9 C (98.4 F) (Temporal) | LMP 12/13/2019 | SpO2 100% | No Physical Exam Constitutional: She is well-developed, well-nourished, and in no distress. HENT: Head: Normocephalic and atraumatic. Eyes: Right eye exhibits no discharge. Left eye exhibits no discharge. Neck: No tracheal deviation present. Cardiovascular: Regular rhythm. Pulmonary/Chest: Effort normal. No respiratory distress. Abdominal: She exhibits no distension. Musculoskeletal: General: No edema. Legs: Comments: Red= area of loss of light touch sensation. r tibialis anterior atrophy. Neurological: She is alert. Skin: Skin is dry. She is not diaphoretic. Psychiatric: Affect normal. Assessment/Plan: 1. Right foot drop Nerve conduction test Neurology, External - AMB Referral Unclear for right tibialis anterior weakness and atrophy. EMG and neurology referral. Pt c/o increased pain from compensation and increased nortriptyline, Increased oxycodone t o 7.5-15mg q 8 hrs prn. Requested Prescriptions Signed Prescriptions Disp Refills nortriptyline (PAMELOR) 50 MG capsule 90 capsule 0 Sig: Take 1 capsule by mouth nightly. oxyCODONE (ROXICODONE) 5 mg tablet 90 tablet 0 Sig: Take 1.5-3 tablets by mouth every 8 hours as needed. documented in this encounter Plan of Treatment +--------+ + + + + | Date | Type | Specialty | Care Team | Description | +--------+ + + + + | 03/17/ | Virtual | Neurosurgery | Zuhair Flores | | 2019 | Office | | MD [address] | | | | Visit | | [place] [address] | | | | | | [place] | | | | | | [address] | | | | | | | | +--------+ + + + + | 03/18/ | Office | Physical Medicine | Jovana Dawson | | 2019 | Visit | and Rehabilitation | MELANY Man [address] | | | | | | [facility] | | | | | | [address] [place] | | | | | | [address] | | | | | | | | +--------+ + + + + | 04/01/ | Appointment | Oncology | Deny Mcmanus, | | | 2019 | | | [address] | | | | | | [place], | | | | | | [place] [address] | | | | | | [phone] | | | | | | | | +--------+ + + + + | 04/08/ | Procedure | Physical Medicine | Leonard De Leon | | | 2019 | visit | and Rehabilitation | MD Audelia [address] | | | | | | [place] | | | | | | [address] | | | | | | | | +--------+ + + + + | 04/30/ | Office | Cardiology | Shad Saavedra, | | | 2019 | Visit | | [address] | | | | | | [place] | | | | | | [place] [address] | | | | | | [phone] | | | | | | | | +--------+ + + + + + + +--------+ + + | Name | Type | Priori | Associated Diagnoses | Order Schedule | | | | ty | | | + + +--------+ + + | Nerve conduction | Neurology | Routin | Right foot drop | 1 Occurrences | | test | | e | | starting 01/03/2020 | | | | | | until 01/03/2021 | + + +--------+ + + | [id number] EMG Study | Procedures | Routin | Right foot drop | Expected: | | | | e | | 01/03/2020, Expires: | | | | | | 01/03/2021 | + + +--------+ + + + + +--------+ + + | Name | Type | Priori | Associated Diagnoses | Order Schedule | | | | ty | | | + + +--------+ + + | Neurology, External | Outpatient | Routin | Right foot drop | Ordered: 01/03/2020 | | - AMB Referral | Referral | e | | | + + +--------+ + + documented as of this encounter Visit Diagnoses + + | Diagnosis | + + | Right foot drop - Primary Other acquired deformity of ankle and foot | + + | Back pain, unspecified back location, unspecified back pain laterality, unspecified | | chronicity | + + documented in this encounter"
--- OUTSIDE RECORDS SUMMARY | ~2020-03-13 | XMS | Encounter Summary ---
Demographics + + + | Address | [address] | | | [place] [address] | + + + | Home Phone | | + + + | Preferred Language | Unknown | + + + | Marital Status | Single | + + + | Yazidism Affiliation | NON | + + + | Race | White | + + + | Ethnic Group | Not or | + + + Author + + + | Author | [facility] | + + + | Organization | [facility] | + + + | Address | [...] Providers + +------+ + | Care Warehouse Order Selector Name | Role | Phone | + +------+ + | Burton Masters MD | PCP | | + +------+ + Reason for Visit + + + | Reason | Comments | + + + | Oral Chemo | dasatinib | + + + Encounter Details +--------+ + + + + | Date | Type | Department | Care Team | Description | +--------+ + + + + | 01/04/ | Telephone | [facility] | Anh Pereira, | Oral Chemo | | 2019 | | Hematologic | PharmD [address] | (dasatinib) | | | | Malignancies at | [facility] [address] | | | | | [facility] | [place], [place] | | | | | [address] | [address] | | | | | Loop Mailcode: | | | | | | [id number] [place] | | | | | | [facility] [place], | | | | | | [place] [address] | | | | | | [phone] | | | +--------+ + + + [...] Arce | | | | | | [place] | | | | | | [address] | | | | | | [phone] | | | | | | | | +--------+---------+ + + + documented as of this encounter Visit Diagnoses Not on filedocumented in this encounter"
--- OUTSIDE RECORDS SUMMARY | ~2020-03-13 | XMS | Encounter Summary ---
Demographics + + + | Address | [address] | | | [place] [address] | + + + | Home Phone [...] Team Providers + +------+ + | Care Audit Spec Name | Role | Phone | + [...] Closed | | Radiology | Diagnoses | August, | [facility] | | | | | Shoulder | Suresh Parra, | [address] | | | | | pain, left | [address] | [place], | | | | | Procedures | [address] | [place] | | | | | MRI Shoulder | [place], | [address] | | | | | Left | [place] [address] | Phone: | | | | | Arthrogram w | Phone: | [phone] | | | | | Contrast | [phone] | Fax: | | | | | | Fax: | [phone] | | | | | | [phone] | | +--------+--------+ + + + + Reason for Visit Diagnostic/Screening (Routine) +--------+--------+ + + + + | Status | Reason | Specialty | Diagnoses / | Referred By | Referred To | | | | | Procedures | Contact | Contact | +--------+--------+ + + + + | Closed | | Radiology | Diagnoses | August, | [facility] | | | | | Shoulder | Suresh L, | [address] | | | | | pain, left | [address] | [place], | | | | | Procedures | [address] | [place] | | | | | MRI Shoulder | [place], | [address] | | | | | Left | [place] [address] | Phone: | | | | | Arthrogram w | Phone: | [phone] | | | | | Contrast | [phone] | Fax: | | | | | | Fax: | [phone] | | | | | | [phone] | | +--------+--------+ + + + + Encounter Details +--------+ + + + + | Date | Type | Department | Care Team | Description | +--------+ + + + + | 05/19/ | [facility] | [facility] | Suresh Koch | Shoulder pain, left | | 2013 | Encounter | MED CTR MRI [address] | MD Aida [address] [place] [address] | | | | | [place], | [place], [place] | | | | | [place] [address] | [address] | | | | | [phone] | | | +--------+ + + + [...] | | | | | [facility] | | | | | | [address] [place] | | | | | | [address] | | | | | | | | +--------+ + + + + | 04/01/ | Appointment | Oncology | Deny Mcmanus, | | | 2019 | | | [address] | | | | | | [facility] [place], | | | | | | [place] [address] | | | | | | [phone] | | | | | | | | +--------+ + + + + | 04/08/ | Procedure | Physical Medicine | Leonard De Leon | | | 2019 | visit | and Rehabilitation | T, [address] | | | | | | [place] | | | | | | [address] | | | | | | | | +--------+ + + + + | 04/30/ | Office | Cardiology | Shad Saavedra, | | 2019 | Visit | | [address] | | | | | | [place], | | | | | | [place] [address] | | | | | | [phone] | | | | | | | | +--------+ + + + + documented as of this encounter Procedures + +--------+ + + + | Procedure Name | Priori | Date/Time | Associated Diagnosis | Comments | | | ty | | | | + +--------+ + + + | MRI SHOULDER LEFT | Routin | 05/19/2014 | Shoulder pain, | Results for this | | ARTHROGRAM W | e | 9:44 AM | left | procedure are in the | | CONTRAST | | PDT | | results section. | + +--------+ + + + documented in this encounter Results MRI Shoulder Left Arthrogram w Contrast (05/19/2014 9:44 AM PDT) + + | Specimen | + + | | + + + + + | Narrative | Performed At | + + + | MR ARTHROGRAM LEFT SHOULDER 05/19/2014 9:44 AM CLINICAL | [facility] | | HISTORY:shoulder pain COMPARISON: Images from | LAB | | intra-articular contrast injection earlier the same day, shoulder | | | radiographs February 25, 2014 TECHNIQUE: Following the uneventful | | | intraarticular injection of a dilute gadolinium solution, the | | | following 3T MR sequences of the left shoulder were obtained: 1.? | | | Axial, sagittal and coronal T1 with fat suppression. 2.? Coronal and | | | sagittal proton-density with fat suppression. 3.? Coronal T2. | | | FINDINGS: Marrow signal demonstrates no evidence of fracture. There | | | is moderate capsular hypertrophy and edema about the | | | acromioclavicular joint, with cystic versus erosive change involving | | | the adjacent distal clavicle and acromion along the joint margins. | | | The acromial arch is type I in configuration. A thin, at least | | | partial-thickness cleft is suggested transversely within the distal | | | articular sided fibers of the supraspinatus tendon. There is trace | | | accumulation of contrast within the adjacent subacromial/subdeltoid | | | bursa, raising suspicion for a full-thickness component. The | | | infraspinatus, teres minor and subscapularis tendons appear intact | | | and unremarkable. The long head biceps tendon is appropriately | | | positioned within the intertubercular groove, and along with its | | | anchor, appears intact. The anterior, superior glenoid labrum is | | | diminutive in size and the adjacent middle glenohumeral ligament is | | | somewhat prominent, consistent with a variant Jac complex. The | | | glenoid labrum and articular cartilage of the glenohumeral joint | | | otherwise are unremarkable. No intra-articular loose body is | | | visible. Soft tissues about the shoulder are otherwise | | | unremarkable. IMPRESSION - 1. THIN TRANSVERSE CLEFT WITHIN | | | THE DISTAL SUPRASPINATUS TENDON AT ITS HUMERAL INSERTION WITH TRACE | | | ACCUMULATION OF CONTRAST IN THE ADJACENT SUBACROMIAL/SUBDELTOID | | | BURSA, CONSISTENT WITH A FULL-THICKNESS COMPONENT. 2. CAPSULAR | | | HYPERTROPHY AND EDEMA ABOUT THE ACROMIOCLAVICULAR JOINT WITH CYSTIC | | | VERSUS EROSIVE CHANGE INVOLVING THE DISTAL CLAVICLE AND ACROMION. | | | 3. FINDINGS CONSISTENT WITH A VARIANT JAC COMPLEX OF THE | | | ANTERIOR, SUPERIOR GLENOID LABRUM. Dictated and Signed by: Oleg | | | MD Robert Electronically signed: 05/19/2014 11:09 AM | | + + + + + | Procedure Note | + + | Ruben, Rad Results In - 05/19/2014 11:12 AM PDT MR ARTHROGRAM LEFT SHOULDER 05/19/2014 | | 9:44 AMCLINICAL HISTORY:shoulder pain COMPARISON: Images from intra-articular | | contrast injection earlier the same day,shoulder radiographs February 25, 2014 TECHNIQUE: | | Following the uneventful intraarticular injection of a dilutegadolinium solution, the | | following 3T MR sequences of the left shoulder wereobtained:1.? Axial, sagittal and | | coronal T1 with fat suppression.2.? Coronal and sagittal proton-density with fat | | suppression.3.? Coronal T2.FINDINGS: Marrow signal demonstrates no evidence of fracture. | | There is moderatecapsular hypertrophy and edema about the acromioclavicular joint, | | with cysticversus erosive change involving the adjacent distal clavicle and acromion | | alongthe joint margins. The acromial arch is type I in configuration.A thin, at least | | partial-thickness cleft is suggested transversely within thedistal articular sided | | fibers of the supraspinatus tendon. There is traceaccumulation of contrast within the | | adjacent subacromial/subdeltoid bursa,raising suspicion for a full-thickness component. | | The infraspinatus, teresminor and subscapularis tendons appear intact and unremarkable. | | The long headbiceps tendon is appropriately positioned within the intertubercular | | groove, andalong with its anchor, appears intact. The anterior, superior glenoid labrum | | isdiminutive in size and the adjacent middle glenohumeral ligament is | | somewhatprominent, consistent with a variant Jac complex. The glenoid labrum | | andarticular cartilage of the glenohumeral joint otherwise are unremarkable. | | Nointra-articular loose body is visible. Soft tissues about the shoulder areotherwise | | unremarkable.IMPRESSION - 1. THIN TRANSVERSE CLEFT WITHIN THE DISTAL SUPRASPINATUS | | TENDON AT ITS HUMERALINSERTION WITH TRACE ACCUMULATION OF CONTRAST IN THE | | ADJACENTSUBACROMIAL/SUBDELTOID BURSA, CONSISTENT WITH A FULL-THICKNESS COMPONENT.2. | | CAPSULAR HYPERTROPHY AND EDEMA ABOUT THE ACROMIOCLAVICULAR JOINT WITH CYSTICVERSUS | | EROSIVE CHANGE INVOLVING THE DISTAL CLAVICLE AND ACROMION.3. FINDINGS CONSISTENT WITH A | | VARIANT JAC COMPLEX OF THE ANTERIOR, SUPERIORGLENOID LABRUM.Dictated and Signed by: | | Oleg Jones MD Electronically signed: 05/19/2014 11:09 AM | |prominent, consistent with a variant Jac complex. The glenoid labrum and | |articular cartilage of the glenohumeral joint otherwise are unremarkable. No | |intra-articular loose body is visible. Soft tissues about the shoulder are | |otherwise unremarkable. | | | |IMPRESSION - | |1. THIN TRANSVERSE CLEFT WITHIN THE DISTAL SUPRASPINATUS TENDON AT ITS HUMERAL | |INSERTION WITH TRACE ACCUMULATION OF CONTRAST IN THE ADJACENT | |SUBACROMIAL/SUBDELTOID BURSA, CONSISTENT WITH A FULL-THICKNESS COMPONENT. | | | |2. CAPSULAR HYPERTROPHY AND EDEMA ABOUT THE ACROMIOCLAVICULAR JOINT WITH CYSTIC | |VERSUS EROSIVE CHANGE INVOLVING THE DISTAL CLAVICLE AND ACROMION. | | | |3. FINDINGS CONSISTENT WITH A VARIANT JAC COMPLEX OF THE ANTERIOR, SUPERIOR | |GLENOID LABRUM. | | | |Dictated and Signed by: Oleg Jones MD | | Electronically signed: 05/19/2014 11:09 AM | + + + +---------+ + + | Performing | Address | City/State/Zipcode | Phone Number | | Organization | | | | + +---------+ + + | [facility] | | | [phone] | + +---------+ + + | [facility] | | | [phone] | + +---------+ + + documented in this encounter Visit Diagnoses + + | Diagnosis | + + | Shoulder pain, left Pain in joint, shoulder region | + + documented in this encounter"
--- OUTSIDE RECORDS SUMMARY | ~2020-03-13 | XMS | Encounter Summary ---
Demographics + + + | Address | [address] | | | [place] [address] | + + + | Home Phone [...] Team Providers + +------+ + | Care Quantitative Researcher Name | Role | Phone | + [...] + + | Authorized | Specialty | Physical | Diagnoses | Sonam, | Haley, | | | Services | Medicine and | Right foot | Burton Rizzo, | Leonard Win MD | | | Required | Rehabilitatio | drop Back | MD [address] | | | | n | pain, | [address] | [place] | | | | | unspecified | [place], | [place], [place] | | | | | back | [place] [address] | [address] Phone: | | | | | location, | Phone: | [phone] | | | | | unspecified | [phone] | Fax: | | | | | back pain | Fax: | [phone] | | | | | laterality, | [phone] | | | | | | unspecified | | | | | | | chronicity | | | + + + + + + + Reason for Visit + + + | Reason | Comments | + + + | Referral (Follow up) | | + + + Encounter Details +--------+ + + + + | Date | Type | Department | Care Team | Description | +--------+ + + + + | 01/06/ | Telephone | [facility] [place] [facility] | Burton Masters Matthias, | Referral (Follow up) | | 2020 | | [facility] | [address] | | | | | [address] | [place] | | | | | [place] | [address] | | | | | [address] | | | | | | [phone] | | | +--------+ + + + [...] | | | Visit | | [facility] [address] | | | | | | [place] | | | | | | [address] | | | | | | | | +--------+ + + + + | 03/18/ | Office | Physical Medicine | Jovana Dawson | | | 2019 | Visit | and Rehabilitation | MELANY Man [address] | | | | | | [facility] | | | | | | [address] [place] | | | | | | [address] | | | | | | | | +--------+ + + + + | 04/01/ | Appointment | Oncology | Deny Mcmanus, | | | 2019 | | | [address] | | | | | | [place] | | | | | | [place] [address] | | | | | | [phone] | | | | | | | | +--------+ + + + + | 04/08/ | Procedure | Physical Medicine | Leonard De Leon | | | 2019 | visit | and Rehabilitation | MD Kiki Win | | | | | | [place] | | | | | | [address] | | | | | | | | +--------+ + + + + | 04/30/ | Office | Cardiology | Shad Saavedra, | | | 2019 | Visit | | [address] | | | | | | [place], | | | | | | [place] [address] | | | | | | [phone] | | | | | | | | +--------+ + + + + + + +--------+ + + | Name | Type | Priori | Associated Diagnoses | Order Schedule | | | | ty | | | + + +--------+ + + | * [facility] [place] | Outpatient | Routin | Right foot drop | Ordered: 01/07/2020 | | Physiatry - AMB | Referral | e | Back pain, | | | Referral | | | unspecified back | | [...]
--- OUTSIDE RECORDS SUMMARY | ~2020-03-13 | XMS | Encounter Summary ---
Demographics + + + | Address | [address] | | | [place] [address] | + + + | Home Phone [...] + + | Author | [facility] | | | and [place] | + + + | Organization | [facility] | | | [...] Team Providers + +------+ + | Care Novelty Twister Tender Name | Role | Phone | + +------+ + | Nhi Oneal MD | PCP | | + +------+ + Reason for Visit +--------+ + | Reason | Comments | +--------+ + | Other | | +--------+ + Encounter Details +--------+--------+ + + + | Date | Type | Department | Care Team | Description | +--------+--------+ + + + | 04/24/ | Refill | [facility] | Suresh Koch | Other | | 2013 | | ORTHOPEDIC SURGERY | MD Aida [address] [facility] | | | | | [address] [facility] | [place] | | | | | [place] | [address] | | | | | [address] | | | | | | [phone] | | | +--------+--------+ + + + [...] [place] | | | | | | [address] | | | | | | | | +--------+ + + + + | 04/01/ | Appointment | Oncology | Deny Mcmanus, | | | 2019 | | | [address] | | | | | | [place], | | | | | | [place] [address] | | | | | | [phone] | | | | | | | | +--------+ + + + + | 04/08/ | Procedure | Physical Medicine | Leonard De Leon | | | 2019 | visit | and Rehabilitation | TMD [address] | | | | | | [place] | | | | | | [address] | | | | | | | | +--------+ + + + + | 04/30/ | Office | Cardiology | Shad Saavedra, | | | 2019 | Visit | | [address] | | | | | | [place] | | | | | | [place] [address] | | | | | | [phone] | | | | | | | | +--------+ + + + + documented as of this encounter Visit Diagnoses + + | Diagnosis | + + | Claustrophobia - Primary Other isolated or specific phobias | + + documented in this encounter"
--- OUTSIDE RECORDS SUMMARY | ~2020-03-13 | XMS | Encounter Summary ---
Demographics + + + | Address | [address] | | | [place] [address] | + + + | Home Phone | | + + + | Preferred Language | Unknown | + + + | Marital Status | | + + + | Judaism Affiliation | Unknown | + + + | Race | Unknown | + + + | Ethnic Group | Unknown | + + + Author + + + | Author | [facility] | | | and [place] | + + + | Organization | [facility] | | | and [place] | + [...] Team Providers + +------+ + | Care Meteorological Observer Name | Role | Phone | + [...] | 09/04/ | Refill | [facility] [place] [facility] | Burton Masters, | Medication Refill | | 2018 | | MEDICINE [place] | [address] | | | | | [address] | [place] | | | | | [place] | [address] | | | | | [address] | | | | | | [phone] | | | +--------+--------+ + + + [...] [place] | | | | | | [address] | | | | | | | | +--------+ + + + + | 03/18/ | Office | Physical Medicine | Jovana Dawson | | | 2019 | Visit | and Rehabilitation | MELANY [address] | | | | | | [facility] | | | | | | [address] [place] | | | | | | [address] | | | | | | | | +--------+ + + + + | 04/01/ | Appointment | Oncology | Deny Mcmanus, | | 2019 | | | MD [address] | | | | | | [place] | | | | | | [place] [address] | | | | | | [phone] | | | | | | | | +--------+ + + + + | 04/08/ | Procedure | Physical Medicine | Leonard De Leon | | 2019 | visit | and Rehabilitation | T, MD [address] | | | | | | [place] | | | | | | [address] | | | | | | | | +--------+ + + + + | 04/30/ | Office | Cardiology | Shad Saavedra, | | | 2019 | Visit | | MD [address] | | | | | | [place], | | | | | | [place] [address] | | | | | | [phone] | | | | | | | | +--------+ + + + + documented as of this encounter Visit Diagnoses Not on filedocumented in this encounter"
--- OUTSIDE RECORDS SUMMARY | ~2020-03-13 | XMS | Encounter Summary ---
Demographics + + + | Address | [address] | | | [place] [address] | + + + | Home Phone [...] Team Providers + +------+ + | Care Equipment Operator/Laborer/Supervisor Name | Role | Phone | + [...] Back pain, | [address] | [address] | | | | | unspecified | [place], | [place], | | | | | back | [place] [address] | [place] [address] | | | | | location, | Phone: | Phone: | | | | | unspecified | [phone] | [phone] | | | | | back pain | Fax: | Fax: | | | | | laterality, | [phone] | [phone] | | | | | unspecified | | | | | | | chronicity | | | +--------+ + + + + + Encounter Details +--------+---------+ + + + | Date | Type | Department | Care Team | Description | +--------+---------+ + + + | 01/17/ | Office | [facility] | Burton Masters, | Lumbar radiculopathy | | 2017 | Visit | [facility] | [address] | (Primary Dx) | | | | [address] [place] | [place], [place] | | | | | [place] [address] | [address] | | | | | [phone] | | | | | | | Ashley Moore, | | | | | | QUARTZ MOUNTER [address] | | | | | | [place], [place] | | | | | | [address] | | | | | | [phone] | | | | | | | [...] as of this encounter Progress Notes Ashley Moore, QUARTZ MOUNTER - 01/17/2017 1:54 PM PDT [facility] [address] [place] [address] Physical Therapy Daily Treatment Note Date: 01/17/2017 Patient Information Patient Name: Ashley Webb Date of : 1985 Age: 32 y.o. Encounter Diagnoses Code Name Primary? M54.16 Lumbar radiculopathy Yes Date of Onset: 01/03/2017 Referring Provider: Burton Masters MD # of PT Visits to Date: 3 Start Time: 1350 Stop time: 1430 Duration: 40 minutes Timed Treatment Codes: 40 minutes Rehab Precautions Office Visit from 01/03/2017 in [facility] Rehab Precautions Precautions None Pain Assessment: Pain Scale Used: NUMERIC Pain Rating Pre Assessment: 6 Location: low back Subjective: Patient reports some progress towards goals listed below. She has been adding in her stretches to her daily routine, they seem to be helping a little bit. Goals: Patient Reported Outcome Goals Patient Reported Outcome Goals: PSFS Patient Specific Functional Scale Goal 1: SHE WILL BE ABLE TO SIT FOR UP TO 45 MINUTES 1-2 TIMES A DAY IN ORDER TO CHART AT [facility] Patient Specific Functional Scale Goal 1 Status: 3 Patient Specific Functional Scale Goal 2: SHE WILL BE ABLE TO STAND FOR UP TO 30 MINUTES AT A TIMES 3-4 TIMES A WORK SHIFT SO SHE CAN COMPLETE WORK ACTIVITIES. 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 Hooklying TrA+marches 1x10 reps bilaterally Hooklying TrA+leg reaches 1x10 reps bilaterally Supine straight leg raises 1x10 reps bilaterally Bridges 1x10 reps Sidelying clamshells 1x10 reps bilaterally Standing hip abduction x 10 reps bilaterally Standing hip extension x 10 reps bilaterally Partial squats x 10 reps TrA+forwards walking up/down steep ramp x 1 lap TrA+backwards walking up/down steep ramp x 1 lap TrA+lateral walking up/down steep ramp x 2 laps Assessment: Pt was able to complete exercises with minimal complaints of increased pain or discomfort. Her core is quite weak and she was unsteady with most of the exercises, even in supine. Sh e will benefit from continued skilled therapy to improve hip and core strength, which will h elp reduce symptoms with daily, functional mobility at home and at work. Plan: Continue to progress hip and core strengthening exercises in order to meet functional goals . Electronically signed by: Ashley Moore PTA, 01/17/2017 15:21 Patient Name: Ashley Gomes Jon/: 1985/ documented in this encounter Plan of [...] | | | | | [address] | | | | | | [address] [place] | | | | | | [address] | | | | | | | | +--------+ + + + + | 04/01/ | Appointment | Oncology | Deny Mcmanus, | | | 2019 | | | [address] | | | | | | [facility] [place], | | | | | | [place] [address] | | | | | | [phone] | | | | | | | | +--------+ + + + + | 04/08/ | Procedure | Physical Medicine | Leonard De Leon | | 2019 | visit | and Rehabilitation | T, [address] | | | | | | [place] | | | | | | [address] | | | | | | | | +--------+ + + + + | 04/30/ | Office | Cardiology | Shad Saavedra, | | 2019 | Visit | | [address] | | | | | | [place], | | | | | | [place] [address] | | | | | | [phone] | | | | | | | [...]
--- OUTSIDE RECORDS SUMMARY | ~2020-03-13 | XMS | Encounter Summary ---
Demographics + + + | Address | [address] | | | [place] [address] | + + + | Home Phone [...] Team Providers + +------+ + | Care Cigar Head Perforator Name | Role | Phone | + +------+ + | Burton Masters MD | PCP | | + +------+ + Reason for Visit +---------+ + | Reason | Comments | +---------+ + | Results | | +---------+ + Encounter Details +--------+ + + + + | Date | Type | Department | Care Team | Description | +--------+ + + + + | 11/25/ | Telephone | [facility] | Deny Mcmanus, | Results | | 2020 | | [facility] | MD [address] | | | | | [facility] [address] [place], | | | | | [address] [place] | [place] [address] | | | | | [place] [address] | [phone] | | | | | [phone] | | | +--------+ + + + [...] [place] | | | | | | [address] | | | | | | | | +--------+ + + + + | 03/18/ | Office | Physical Medicine | Jovana Dawson | | | 2019 | Visit | and Rehabilitation | [address] | | | | | | [address] [facility] | | | | | | [address] [place] | | | | | | [address] | | | | | | | | +--------+ + + + + | 04/01/ | Appointment | Oncology | Deny Mcmanus, | | | 2019 | | | MD [address] | | | | | | [place], | | | | | | [place] [address] | | | | | | [phone] | | | | | | | | +--------+ + + + + | 04/08/ | Procedure | Physical Medicine | Leonard De Leon | | | 2019 | visit | and Rehabilitation | MD [address]iki [address] | | | | | | [place] | | | | | | [address] | | | | | | | | +--------+ + + + + | 04/30/ | Office | Cardiology | Shad Saavedra, | | | 2019 | Visit | | MD [address] | | | | | | [place], | | | | | | [place] [address] | | | | | | [phone] | | | | | | | | +--------+ + + + + documented as of this encounter Visit Diagnoses Not on filedocumented in this encounter"
--- OUTSIDE RECORDS SUMMARY | ~2020-03-13 | XMS | Encounter Summary ---
Demographics + + + | Address | [address] | | | [place] [address] | + + + | Home Phone [...] Team Providers + +------+ + | Care Morale Officer Name | Role | Phone | + +------+ + | Burton Masters MD | PCP | | + +------+ + Encounter Details +--------+ + + + + | Date | Type | Department | Care Team | Description | +--------+ + + + + | 11/25/ | Hospital | [facility] | Deny Mcmanus, | CML (chronic | | 2020 | Encounter | [facility] | MD [address] | myelocytic leukemia) | | | | ONCOLOGY CLINIC [address] [place], | (HCC) | | | | [place] | [place] [address] | | | | | [place] [address] | [phone] | | | | | [phone] | | | +--------+ + + + [...] + +---------+ + + | cloNIDine | 1 tablet by mouth | 60 | 2 | 09/06/20 | | | (CATAPRES) 0.1 mg | every 6 hours as | tablet | | 19 | 0 | | tablet | needed. | | | | | + [...] nortriptyline | take 1 capsule by | 30 | 0 | 10/25/20 | | | (PAMELOR) 25 mg | mouth nightly | capsule | | 19 | 0 | | capsule | | [...] tablets by | 90 | 0 | 11/12/19 | | | (ROXICODONE) 5 mg | [...] | | | Visit | | [facility] [facility] [address] | | | | | | [place] | | | | | | [address] | | | | | | | | +--------+ + + + + | 03/18/ | Office | Physical Medicine | Jovana Dawson | | | 2019 | Visit | and Rehabilitation | [address] | | | | | | [facility] | | | | | | [address] [place] | | | | | | [address] | | | | | | | | +--------+ + + + + | 04/01/ | Appointment | Oncology | Deny Mcmanus, | | | 2019 | | | [address] | | | | | | [address] [place], | | | | | | [place] [address] | | | | | | [phone] | | | | | | | | +--------+ + + + + | 04/08/ | Procedure | Physical Medicine | Prashantbreanaleatha Leonadr | | | 2019 | visit | and Rehabilitation | MD [address] | | | | | | [place], [place] | | | | | | [address] | | | | | | | | +--------+ + + + + | 04/30/ | Office | Cardiology | Shad Saavedra, | | | 2019 | Visit | | MD [address] | | | | | | [place], | | | | | | [place] [address] | | | | | | [phone] | | | | | | | | +--------+ + + + + documented as of this encounter Procedures + +--------+ + + + | Procedure Name | Priori | Date/Time | Associated Diagnosis | Comments | | | ty | | | | + +--------+ + + + | BCR-ABL1 FOR CML AND | Routin | 11/25/2019 | CML (chronic | Results for this | | ALL | e | 12:34 PM | myelocytic leukemia) | procedure are in the | | | | PST | ([facility]) | results section. | + +--------+ + + + | CBC WITH | STAT | 11/25/2019 | CML (chronic | Results for this | | DIFFERENTIAL | | 12:34 PM | myelocytic leukemia) | procedure are in the | | | | PST | ([facility]) | results section. | + +--------+ + + + | COMPREHENSIVE | STAT | 11/25/2019 | CML (chronic | Results for this | | METABOLIC PANEL | | 12:34 PM | myelocytic leukemia) | procedure are in the | | | | PST | ([facility]) | results section. | + +--------+ + [...] [facility] | | | | | | [place] [facility] | | | | | | | | | | | | Biology and Pathology | | | | | | | | | | | | [address] [place], | | | | | | [place] | | | | | | | [...] e13a2 | | | | | | ([id number]) and | | | | | | [...] | | | | | e14a2 and [id number] | | | | | | transcripts. [...] 116: | | | | | | [id number]. 3. NCCN | | | | | [...] Ahsan Gomes, | REFERENCE LAB | | [facility], [place] [id number] Tow Feeder: Miguelina Lorenzo MD, Phone: | ELZA NIETO | | [phone] Performed at: - [facility] [address] [facility] | | [place] [facility], [place] [id number] Tow Feeder: Miguelina Lorenzo MD, | | | Phone: [phone] | | + + + + + + + + | Performing | Address | City/State/Zipcode | Phone Number | | Organization | | | | + + + + + | REFERENCE LAB | [address] | [place], [place] | [phone] | | [facility] | [place] | [address] | | + + + + + [...] [address] | [place] | [phone] | | [facility] | | [address] | | | - LABORATORY | | [...] (L) | 9 - 23 mg/dL | [facility] | | | | [facility] | [facility]ICAL | | | | | | [facility] - | | | | | | LABORATORY | | + + + + + + | Creatinine | 0.82 | 0.55 - 1.02 | [facility] | | | | | mg/dL | [facility] | | | | | | MEDICAL | | | | | | CENTER - | | | | | | LABORATORY | | + + + + + + | eGFR if not | >60Comment: GLOMERULAR | >=60 | [facility] | | | | FILTRATION | mL/min/1.73m2 | [facility] | | | CZECH | RATE,ESTIMATED | | MEDICAL | | | | mL/min/1.51s6Xdef than | | CENTER - | | [...] | 8.7 | 8.7 - 10.4 | [facility] | | | | | mg/dL | [facility] | | | | | | MEDICAL [...] | [address] | [address] | [place] | [phone] | | [facility] | | [address] | | | - LABORATORY | | | | + + + + + documented in this encounter Visit Diagnoses + + | Diagnosis | + + | CML (chronic myelocytic leukemia) (HCC) Chronic myeloid leukemia, without mention of | | having achieved remission | + + documented in this encounter"
--- OUTSIDE RECORDS SUMMARY | ~2020-03-13 | XMS | Encounter Summary ---
Demographics + + + | Address | [address] | | | [place] [address] | + + + | Home Phone | | + + + | Preferred Language | Unknown | + + + | Marital Status | | + + + | Faith Affiliation | Unknown | + + + [...] Team Providers + +------+ + | Care Utility Supervisor Boat And Plant Name | Role | Phone | + [...] Back pain, | [address] | [address] | | | | | unspecified | [place], | [place], | | | | | back | [place] [address] | [place] [address] | | | | | location, | Phone: | Phone: | | | | | unspecified | [phone] | [phone] | | | | | back pain | Fax: | Fax: | | | | | laterality, | [phone] | [phone] | | | | | unspecified | | | | | | | chronicity | | | +--------+ + + + + + Encounter Details +--------+---------+ + + + | Date | Type | Department | Care Team | Description | +--------+---------+ + + + | 02/02/ | Office | [facility] | Burton Masters, | Lumbar radiculopathy | | 2017 | Visit | [facility] | [address] | (Primary Dx) | | | | [address] [place] | [place], [place] | | | | | [place] [address] | [address] | | | | | [phone] | | | | | | | Ashley Moore, | | | | | | GATE SERVICES SUPERVISOR [address] | | | | | | [place], [place] | | | | | | [address] | | | | | | [phone] | | | | | | | [...] of this encounter Progress Notes Ashley Moore, GATE SERVICES SUPERVISOR - 02/02/2017 9:00 AM PDT [facility] [address] [facility] [address] Physical Therapy Daily Treatment Note Date: 02/02/2017 Patient Information Patient Name: Ashley Webb Date of : 1985 Age: 32 y.o. Encounter Diagnoses Code Name Primary? M54.16 Lumbar radiculopathy Yes Date of Onset: 01/03/2017 Referring Provider: Burton Masters MD # of PT Visits to Date: 4 Start Time: 814 Stop time: 854 Duration: 40 minutes Timed Treatment Codes: 40 minutes Rehab Precautions Office Visit from 01/03/2017 in [facility] Rehab Precautions Precautions None Pain Assessment: Pain Scale Used: NUMERIC Pain Rating Pre Assessment: 7 Pain Rating During Assessment: 5 Location: low back Subjective: Patient reports little progress towards goals listed below since her last visit . She reports feeling pretty sore today. She has been doing lots of stretches at home and tr kenia to add in strengthening exercises as able. Her kids keep her pretty busy, her little o ne was sick in the hospital for 2 days with RSV and she has been working too. 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 Single knee to chest stretches FADIR and MEE stretches Child's pose stretches Hooklying TrA+marches 1x10 reps bilaterally Hooklying TrA+leg reaches 1x10 reps bilaterally Supine straight leg raises 1x10 reps bilaterally Bridges 1x10 reps Sidelying clamshells 1x10 reps bilaterally Standing hip abduction x 10 reps bilaterally Standing hip extension x 10 reps bilaterally Partial squats x 10 reps TrA+forwards walking up/down steep ramp x 1 lap TrA+backwards walking up/down steep ramp x 1 lap One lap around the gym, up/down about a flight of stairs- focus on keeping TrA engaged Assessment: Pt was in tune to stretches that she needed to do throughout her session to help keep pain symptoms minimized- indicating she has been consistent with stretches as part of her HEP. S he continues to have a weak core and fatigues quickly with exercises. She will benefit from continued skilled PT to help maximize strength and safety with daily mobility at home and w ork. Plan: Continue to progress hip and core strengthening exercises in order to meet functional goals . Electronically signed by: Ashley Moore PTA, 02/02/2017 9:02 Patient Name: Ashley Webb/: 1985/ documented in this encounter Plan of Treatment +--------+ + + + + | Date | Type | Specialty | Care Team | Description | +--------+ + + + + | 03/17/ | Virtual | Neurosurgery | Zuhair Flores | | | 2019 | Office | | MD [address] | | | | Visit | | [address] [place] [address] | | | | | | [place] | | | | | | [address] | | | | | | | | +--------+ + + + + | 03/18/ | Office | Physical Medicine | Jovana Dawson | | 2019 | Visit | and Rehabilitation | [address] | | | | | | [address] [facility] | | | | | | [address] [place] | | | | | | [id number] | | | | | | | | +--------+ + + + + | 04/01/ | Appointment | Oncology | Deny Mcmanus, | | | 2019 | | | [address] | | | | | | [place], | | | | | | [place] [address] | | | | | | [phone] | | | | | | | | +--------+ + + + + | 04/08/ | Procedure | Physical Medicine | Leonard De Leon | | | 2019 | visit | and Rehabilitation | TMD [address] | | | | | | [place] | | | | | | [address] | | | | | | | | +--------+ + + + + | 04/30/ | Office | Cardiology | Shad Saavedra, | | | 2019 | Visit | | [address] | | | | | | [place], | | | | | | [place] [address] | | | | | | [phone] | | | | | | | | +--------+ + + + + documented as of this encounter Visit Diagnoses + + | Diagnosis | + + | Lumbar radiculopathy - Primary Thoracic or lumbosacral neuritis or radiculitis, | | unspecified | + + documented in this encounter"
--- OUTSIDE RECORDS SUMMARY | ~2020-03-13 | XMS | Encounter Summary ---
Demographics + + + | Address | [address] | | | [place] [address] | + + + | Home Phone [...] Providers + +------+ + | Care Aircraft Cabin Cleaner Name | Role | Phone | + [...] | 04/26/ | Telephone | [facility] | Burton Masters, | Medication Question | | 2019 | | [facility] [place] | [address] | | | | | [address] | [place] | | | | | [place] | [address] | | | | | [address] | | | | | | [phone] | | | +--------+ + + + [...] [place] | | | | | | [address] | | | | | | | | +--------+ + + + + | 03/18/ | Office | Physical Medicine | Jovana Dawson | | | 2019 | Visit | and Rehabilitation | [address] | | | | | | [address] [facility] | | | | | | [address] [place] | | | | | | [address] | | | | | | | | +--------+ + + + + | 04/01/ | Appointment | Oncology | Deny Mcmanus, | | 2019 | | | MD [address] | | | | | | [place] | | | | | | [place] [address] | | | | | | [phone] | | | | | | | | +--------+ + + + + | 04/08/ | Procedure | Physical Medicine | Leonard De Leon | | | 2019 | visit | and Rehabilitation | MD [address] | | | | | | [place] | | | | | | [address] | | | | | | | | +--------+ + + + + | 04/30/ | Office | Cardiology | Shad Saavedra, | | | 2019 | Visit | | MD [address] | | | | | | [place] | | | | | | [place] [address] | | | | | | [phone] | | | | | | | | +--------+ + + + + documented as of this encounter Visit Diagnoses Not on filedocumented in this encounter"
--- OUTSIDE RECORDS SUMMARY | ~2020-03-13 | XMS | Encounter Summary ---
Demographics + + + | Address | [address] | | | [place] [address] | + + + | Home Phone [...] Team Providers + +------+ + | Care Media Services Coordinator Name | Role | Phone | + +------+ + | Burton Masters MD | PCP | | + +------+ + Encounter Details +--------+ + + + + | Date | Type | Department | Care Team | Description | +--------+ + + + + | 01/11/ | Hospital | [facility] | [place] | Moderate episode of | | 2019 | Encounter | [facility] | J, PharmD [address] | recurrent major | | | | [facility] [address] | depressive disorder | | | | [address] | [place] [id number] | ([facility]) (Primary Dx) | | | | [place] [address] | [phone] | | | | | [phone] | | | +--------+ + + + [...] documented as of this encounter Progress Notes [place], PharmD - 01/11/2019 11:10 AM PSTFormatting of this note might be differ ent from the original. Clinical Oncology Pharm[facility] Services Progress Note Chemotherapy Education Session [facility] Pt. Name/Age/: Ashley Webb 33 y.o. 1985 Med. Record Number: [id number] Identifying Statement: Ashley Webb is a 33 y.o. female from [address] [place] [address] with The encounter diagnosis was Moderate episode of recurrent major depres sive disorder (HCC). The patient chart and medications were reviewed in detail and the patient was seen and exam ined. Patient was referred to Clinical Oncology Pharmacist for chemotherapy education and side ef fect management. Chemotherapy dose and frequency: Dasatinib 100 mg po daily Chemotherapy start date: Started last week (01/05/19?) Past Medical and Surgical History, Social History and Problems: Past Medical History: Diagnosis Date Abdominal pain [...] Repeat ; Surgeon: Dorota Beal DO; Location: [facility] MAIN OR SECTION N/A 01/16/2018 Procedure: Repeat , Bilateral Tubal Ligation; Surgeon: Dorota Beal DO ; Location: [facility] MAIN OR DILATION AND CURETTAGE OF UTERUS 05/13/2015 SHOULDER SURGERY 08/2014 TUBAL LIGATION 01/16/2018 Dr Beal Social History Social History Marital status: Spouse name: N/A Number of children: 3 Years of education: 15 Occupational History [employer] Social History Main Topics Smoking status: Current Every Day Smoker Packs/day: 1.00 Years: 16.00 Types: Cigarettes Start date: 03/03/2001 Smokeless tobacco: Never Used Comment: Currently at 1/2 pack per day Alcohol use 0.0 oz/week Comment: None at this time. Drug use: No No Sexual activity: Yes Other Topics Concern Not on file Social History Narrative Merged History Encounter Patient Active Problem List Diagnosis Lumbar radiculopathy - left lower extremity DDD (degenerative disc disease), lumbar Chronic low back pain Lumbar spondylosis Major depressive disorder, recurrent episode Depression Chronic myeloid leukemia, BCR/ABL-positive, not having achieved remission Review of Systems: Constitutional: Denies fever or chills, or weight loss. Eyes: Denies change in visual acuity HEENT: Denies nasal congestion or sore throat Respiratory: Denies cough or shortness of breath Cardiovascular: Denies chest pain or edema GI: Denies abdominal pain, nausea, vomiting, bloody stools or diarrhea : Denies dysuria urgency or frequency. Musculoskeletal: Denies any bone pain Integument: Denies rash, bruising, petechia Neurologic: Denies headache, focal weakness or sensory changes Lymphatic: Denies swollen glands Review of systems as above, otherwise negative Scheduled Medications: Current Outpatient Prescriptions on File Prior to Encounter Medication Sig Dispense Refill ALPRAZolam (XANAX) 0.25 mg tablet Take 1-2 tablets by mouth Twice daily as needed for Anxiety. 20 tablet 1 buPROPion (WELLBUTRIN) 100 mg tablet Take 2 tablets by mouth 2 times daily. 180 tablet 1 HYDROcodone-acetaminophen (NORCO) 5-325 mg per tablet Take 1 tablet by mouth every 8 ho urs as needed for Pain. 30 tablet 0 ondansetron (ZOFRAN) 8 MG tablet Take 1 tablet by mouth every 12 hours. raNITIdine (ZANTAC) 150 mg tablet Take 1 tablet by mouth Daily. SPRYCEL 100 MG TABS Take 1 tablet by mouth Daily. 30 tablet 2 No current facility-administered medications on file prior to encounter. Objectives: Wt Readings from Last 3 Encounters: 01/11/19 86.6 kg (190 lb 14.7 oz) 12/13/18 85 kg (187 lb 6.3 oz) 12/03/18 85 kg (187 lb 6.3 oz) Patient Education: Provided teaching on the following, including but not limited to: Pathophysiology of cancer. Brief mechanism of action of anticancer agent(s) and their indications. Supportive medications How to take drug (ie. with or without food, swallow whole, do not crush) Drug/drug and drug/food interactions Lab tests necessary in monitoring the medication for toxicity and efficacy Precautions/warnings Reproductive alterations/precautions and impact on future fertility Side effects and side effect management tips Planned duration of treatment When to call the physician or oncology pharmacist Drug storage Assesment/Plan: 1. We discussed the high risk nature of the treatment regimen, as well as side effect manag ement. The patient demonstrated understanding and all questions were answered, and wishes to proceed with dasatinib therapy. 2. Patient information and handouts were given to the patient. 3. Chemotherapy consent form was signed. 4. Please consult clinical oncology pharmacist for any further medication related education . 5. Thank you. Electronically signed by: Carlos RoyD 01/11/2019 11:08 documented in this encounter Plan of Treatment +--------+ + + + + | Date | Type | Specialty | Care Team | Description | +--------+ + + + + | 03/17/ | Virtual | Neurosurgery | Zuhair Flores | | | 2019 | Office | | MD Joselito [address] | | | | Visit | | [facility] [place] [address] | | | | | | [place] | | | | | | [address] | | | | | | | | +--------+ + + + + | 03/18/ | Office | Physical Medicine | Jovana Dawson | | | 2019 | Visit | and Rehabilitation | MELAYN Man [address] | | | | | | [address] | | | | | | [address] [place] | | | | | | [address] | | | | | | | | +--------+ + + + + | 04/01/ | Appointment | Oncology | Deny Mcmanus, | | | 2019 | | | [address] | | | | | | [place] | | | | | | [place] [address] | | | | | | [phone] | | | | | | | | +--------+ + + + + | 04/08/ | Procedure | Physical Medicine | Leonard De Leon | | | 2019 | visit | and Rehabilitation | MD Audelia [address] | | | | | | [place], [place] | | | | | | [address] | | | | | | | | +--------+ + + + + | 04/30/ | Office | Cardiology | Shad Saavedra, | | | 2019 | Visit | | MD Alan Cruz | | | | | | . [place], | | | | | | [place] [address] | | | | | | [phone] | | | | | | | | +--------+ + + + + documented as of this encounter Visit Diagnoses + + | Diagnosis | + + | Moderate episode of recurrent major depressive disorder (HCC) - Primary | + + documented in this encounter"
--- OUTSIDE RECORDS SUMMARY | ~2020-03-13 | XMS | Encounter Summary ---
Demographics + + + | Address | [address] | | | [place] [address] | + + + | Home Phone | | + + + | Preferred Language | Unknown | + + + | Marital Status | | + + + | Nondenominational Affiliation | Unknown | + + + [...] Team Providers + +------+ + | Care Subsurface Augmentee Operator Name | Role | Phone | [...] Cardiology | Diagnoses | Aguilar, | [facility] | | | Services | | SVT | Arthur | Cardiology | | | Required | | (supraventri | Edward | [address] | | | | | [place]ule[place]ina | MD Duane | [place], | | | | | tachycardia) | [address] | [place] | | | | | ([facility]) | [place] | [address] | | | | | | [place], [place] | Phone: | | | | | | [address] | [phone] | | | | | | Phone: | Fax: | | | | | | [phone] | [phone] | | | | | | Fax: | | | | | | | [phone] | | +--------+ + + + + + Reason for Visit + + + | Reason | Comments | + + + | Chest Pain | | + + + Encounter Details +--------+ + + + + | Date | Type | Department | Care Team | Description | +--------+ + + + + | 03/05/ | Emergency | [facility] | Arthur Aguilar | [facility] | | 2019 | | [facility] | Wei Zepeda MD | (supraventricular | | | | CENTER [address] | [address] | tachycardia) ([facility]) | | | | [place] | [place] | (Primary Dx) | | | | [address] | [address] | | | | | [phone] | | | +--------+ + + + [...] + + + | Blood Pressure | 136/112 | 03/05/2019 8:28 PM | | | | | PDT | | + + + + + | Pulse | 90 | 03/05/2019 8:46 PM | | | | | PDT | | + + + + + | Temperature | 36.7 C (98.1 F) | 03/05/2019 6:24 PM | | | | | PDT | | + + + + + | Respiratory Rate | 16 | 03/05/2019 8:46 PM | | | | | PDT | | + + + + + | Oxygen Saturation | 100% | 03/05/2019 8:46 PM | | | | | PDT | | + + + + + | Inhaled Oxygen | - | - | | | Concentration | | | | + + + + + | Weight | 82.1 kg (181 lb) | 03/05/2019 6:24 PM | | | | | PDT | | + + + + + | Height | 172.7 cm (5' 8") | 03/05/2019 6:24 PM | | | | | PDT | | + + + + + | Body Mass Index | 27.52 | 03/05/2019 6:24 PM | | | | | PDT | | + + + + + documented in this encounter Discharge Instructions Instructions Arthur Aguilar MD - 04/30/2019[facility]. You have been referred to cardiology for follow-up with SVT. Avoid high-dose caffeine. AttachmentsThe following attachments cannot be sent through Care Everywhere.Supraventricula r Tachycardia (SVT), Treatment for (Chilean)documented in this encounter Medications at Time of Discharge + + + +---------+ + + | Medication | Sig | Dispensed | Refills | Start | End Date | | | | | | Date | | + + + +---------+ + + | ALPRAZolam (XANAX) | Take 1-2 tablets by | 20 | 1 | 02/19/20 | | | 0.25 mg tablet | [...] [place] | | | | | | [address] | | | | | | | | +--------+ + + + + | 03/18/ | Office | Physical Medicine | Jovana Dawson | | | 2019 | Visit | and Rehabilitation | MELANY Man [address] | | | | | [address] | | | | | | [place] | | | | | | [address] | | | | | | | | +--------+ + + + + | 04/01/ | Appointment | Oncology | Deny Mcmanus, | | | 2019 | | | [address] | | | | | | [place] | | | | | | [place] [address] | | | | | | [phone] | | | | | | | | +--------+ + + + + | 04/08/ | Procedure | Physical Medicine | Leonard De Leon | | | 2019 | visit | and Rehabilitation | MD Audelia [address] | | | | | | [place] | | | | | | [address] | | | | | | | | +--------+ + + + + | 04/30/ | Office | Cardiology | Shad Saavedra, | | | 2019 | Visit | | [address] | | | | | | [place], | | | | | | [place] [address] | | | | | | [phone] | | | | | | | | +--------+ + + + + + + +--------+ + + | Name | Type | Priori | Associated Diagnoses | Order Schedule | | | | ty | | | + + +--------+ + + | * [facility] | Outpatient | Routin | SVT | Ordered: 03/05/2019 | | Cardiology - AMB | Referral [...] XR CHEST AP PORTABLE | STAT | 03/05/2019 | | Results for this | | | | 7:18 PM | | procedure are in the | | | | PDT | | results section. | + +--------+ + + + | ECG 12 LEAD | STAT | 03/05/2019 | | Results for this | | | | 7:09 PM | | procedure are in the | | | | PDT | | results section. | + +--------+ + + + | TROPONIN I | Routin | 03/05/2019 | | Results for this | | | e | 6:41 PM | | procedure are in the | | | | PDT | | results section. | + +--------+ + + + | PROTIME INR | STAT | 03/05/2019 | | Results for this | | | | 6:41 PM | | procedure are in the | | | | PDT | | results section. | + +--------+ + + + | CBC WITH | STAT | 03/05/2019 | | Results for this | | DIFFERENTIAL | | 6:41 PM | | procedure are in the | | | | PDT | | results section. | + +--------+ + + + | TSH | Add-On | 03/05/2019 | | Results for this | | | | 6:41 PM | | procedure are in the | | | | PDT | | results section. | + +--------+ + + + | B TYPE NATRIURETIC | STAT | 03/05/2019 | | Results for this | | PEPTIDE | | 6:41 PM | | procedure are in the | | | | PDT | | results section. | + +--------+ + + + | LIPASE | STAT | 03/05/2019 | | Results for this | | | | 6:41 PM | | procedure are in the | | | | PDT | | results section. | + +--------+ + + + | COMPREHENSIVE | STAT | 03/05/2019 | | Results for this | | METABOLIC PANEL | | 6:41 PM | | procedure are in the | | | | PDT | | results section. | + +--------+ + + + | ECG 12 LEAD | STAT | 03/05/2019 | | Results for this | | | | 6:37 PM | | procedure are in the | | | | PDT | | results section. | + +--------+ + + + | OXYGEN THERAPY | STAT | 03/05/2019 | | | | | | 6:35 PM | | | | | | PDT | | | + +--------+ + + + documented in this encounter Results XR Chest AP Portable (03/05/2019 7:18 PM PDT) + + | Specimen | + + | | + + + + + | Narrative | Performed At | + + + | EXAM: XR CHEST AP PORTABLE dated 03/05/2019 7:18 PM HISTORY: | [facility] | | CHEST PAIN Comparison: 12/13/2018 TECHNIQUE: A single portable | | | view of the chest. FINDINGS: The lungs are symmetrically | | | aerated. They are clear. There are no large pleural effusions. | | | There is no pneumothorax. The cardiac and mediastinal contours | | | are not enlarged. No acute osseous abnormalities. IMPRESSION - | | | No radiographic evidence for acute disease in the chest. | | | Dictated and Signed by: Luke Rinaldi MD Electronically signed: | | | 03/05/2019 7:34 PM | | + + + + + | Procedure Note | + + | Ruben, Rad Results In - 03/05/2019 7:37 PM PDT EXAM: XR CHEST AP PORTABLE dated | | 03/05/2019 7:18 PMHISTORY: CHEST PAINComparison: 12/13/2018TECHNIQUE: A single portable | | view of the chest.FINDINGS:The lungs are symmetrically aerated. They are clear. There | | are no largepleural effusions. There is no pneumothorax. The cardiac and | | mediastinalcontours are not enlarged. No acute osseous abnormalities. IMPRESSION -No | | radiographic evidence for acute disease in the chest.Dictated and Signed by: Luke Win | | MD Gentry Electronically signed: 03/05/2019 7:34 PM | | | |FINDINGS: | | | |The lungs are symmetrically aerated. They are clear. There are no large | |pleural effusions. There is no pneumothorax. The cardiac and mediastinal | |contours are not enlarged. No acute osseous abnormalities. | | | |IMPRESSION - | | | |No radiographic evidence for acute disease in the chest. | | | |Dictated and Signed by: Luke Rianldi MD | | Electronically signed: 03/05/2019 7:34 PM | + + + +---------+ + + | Performing | Address | City/State/Zipcode | Phone Number | | Organization | | | | + +---------+ + + | [facility] | | | | + +---------+ + + ECG 12 lead (03/05/2019 7:09 PM PDT) + + + + + + | Component | Value | Ref Range | Performed | Pathologist | | | | | At | Signature | + + + + + + | VENTRICULAR | 112 | BPM | [facility] | | | RATE EKG | | | | | + + + + + + | ATRIAL RATE | 112 | BPM | [facility] | | + + + + + + | P-R | 128 | ms | [facility] | | | INTERVAL | | | | | + + + + + + | QRS | 80 | ms | [facility] | | | DURATION | | | | | + + + + + + | Q-T | 332 | ms | [facility] | | | INTERVAL | | | | | + + + + + + | Q-T | 453 | ms | [facility] | | | INTERVAL | | | | | | (CORRECTED) | | | | | + + + + + + | P WAVE AXIS | 68 | degrees | [facility] | | + + + + + + | QRS AXIS | 83 | degrees | [facility] | | + + + + + + | T AXIS | 61 | degrees | [facility] | | + + + + + + | INTERPRETAT | Sinus | | [facility] | | | ION TEXT | tachycardiaOtherwise | | | | | | normal ECGWhen compared | | | | | | with ECG of 05-MAR-2019 | | | | | | 18:37, | | | | | | (Unconfirmed)Vent. rate | | | | | | has decreased BY 110 | | | | | | BPMSignificant changes | | | | | | have occurredConfirmed | | | | | | by MARIANO HENRY MD | | | | | | ([id number]) on 03/06/2019 | | | | | | 6:38:09 AM | | | | + + [...] | | | + +---------+ + + TSH (03/05/2019 6:41 PM PDT) + +-------+ + + + | Component | Value | Ref Range | Performed | Pathologist | | | | | At | Signature | + +-------+ + + + | TSH | 1.48 | 0.55 - 4.78 | [facility] | | | | | uIU/mL | [facility] | | | | [...] [address] | [place] | [phone] | | [facility] | | [address] | | | - LABORATORY | | | | + + + + + Troponin I (03/05/2019 6:41 PM PDT) + + + + + + | Component | Value | Ref Range | Performed | Pathologist | | | | | At | Signature | + + + + + + | Troponin I | 0.05Comment: | <0.06 ng/mL | [facility] | | [...] | | | | | | [employer] | | | | | [...] [address] | [place] | [phone] | | [facility] | | [address] | | | - LABORATORY | | | | + + + + + Protime INR (03/05/2019 6:41 PM PDT) + + + + + + | Component | Value | Ref Range | Performed | Pathologist | | | | | At | Signature | + + + + + + | Prothrombin | 13.6 | 11.3 - 13.9 | [facility] | | | Time | | seconds | [facility] | | | | | | MEDICAL | | | | | | CENTER - | | | | | | LABORATORY | | + + + + + + | INR | 1.1Comment: Usual Oral | 0.9 - 1.1 | [facility] | | | | Anticoagulation Range: | | [facility] | | | | 2.0 - 3.0High | | MEDICAL | | | | Level Oral | | CENTER - | | | | Anticoagulation Range: | | LABORATORY | | | | 2.5 - 3.5 | | | | + + + + + + + + | Specimen | + + | Blood | + + + + + + + | Performing | Address | City/State/Zipcode | Phone Number | | Organization | | | | + + + + + | [facility] | [address] | [place] | [phone] | | [facility] | | [address] | | | - LABORATORY | | | | + + + + + Lipase (03/05/2019 6:41 PM PDT) + +--------+ + + + | Component | Value | Ref Range | Performed | Pathologist | | | | | At | Signature | + +--------+ + + + | Lipase | 59 (H) | 12 - 53 U/L | [facility] | | | | [...] [address] | [place] | [phone] | | [facility] | | [address] | | | - LABORATORY | | | | + + + + + Comprehensive Metabolic Panel (03/05/2019 6:41 PM PDT) + + + + + [...] + + + + | K | 3.2 (L) | 3.4 - 5.1 | [facility] | | | | | mmol/L | [facility] | | | | | | MEDICAL | | | | | | CENTER - | | | | | | LABORATORY | | + + + + + + | Cl | 105 | 98 - 107 mmol/L | [facility] [...] + + + + | Glucose | 152 (H) | 60 - 106 mg/dL | [facility] | | | | | | [facility] | | | | | | MEDICAL | | | | | | CENTER - | | | | | | LABORATORY | | + + + + + + | BUN | 15 | 9 - 23 mg/dL | [facility] | | | | | | [facility] | | | | | | MEDICAL | | | | | | CENTER - | | | | | | LABORATORY | | + + + + + + | Creatinine | 1.12 (H) | 0.55 - 1.02 | [facility] | | | | | mg/dL | [facility] | | | | | | MEDICAL | | | | | | CENTER - | | | | | | LABORATORY | | + + + + + + | eGFR if not | 56 (L)Comment: | >=60 | [facility] | | | | GLOMERULAR FILTRATION | mL/min/1.73m2 | [facility] | | | [place] | RATE,ESTIMATED | | MEDICAL | | | | mL/min/1.45r1Qvsg than | | CENTER - | | [...] + + + + | Calcium | 9.8 | 8.7 - 10.4 | [facility] | | | | | mg/dL | [facility] | | | [facility] | | MEDICAL | | | | | | CENTER - | | | | | | LABORATORY | | + + + + + + | Albumin | 5.2 (H) | 3.2 - 4.8 g/dL | [facility] | | | | | | [facility] | | [facility] | | | MEDICAL | | | | | | CENTER - | | | | | | LABORATORY | | + + + + + + | Bilirubin | 0.9 | 0.3 - 1.2 mg/dL | [facility] | | | Total | | | [facility] | | | | | | MEDICAL | | | | | | CENTER - | | | | | | LABORATORY | | + + + + + + | Total | 7.4 | 5.7 - 8.2 g/dL | [facility] | | | Protein | | | [facility] | | | | | | MEDICAL | | | | | | CENTER - | | | | | | LABORATORY | | + + + + + + | AST | 66 (H) | 0 - 34 U/L | [facility] | | | | | | [facility] | | | | | | MEDICAL | | | | | | CENTER - | | | | | | LABORATORY | | + + + + + + | ALT | 43 | 10 - 49 U/L | [facility] | | | | | | [facility] | | | | | | MEDICAL | | | | | | CENTER - | | | | | | LABORATORY | | + + + + + + | Alkaline | 140 (H) | 46 - 116 U/L | [facility] [...] + + + + | Albumin/Simona | 2.4 (H) | 0.8 - 1.9 | [facility] | | | bulin Ratio | | | [facility] | | | | | | MEDICAL | | | | | | CENTER - | | | | | | LABORATORY | | + + + + + + | BUN/Creatin | 13.4 | | [facility] | | | ine [...] [address] | [place] | [phone] | | [facility] | | [address] | | | - LABORATORY | | | | + + + + + CBC with Differential (03/05/2019 6:41 PM PDT) + + + + + + | Component | Value | Ref Range | Performed | Pathologist | | | | | At | Signature | + + + + + + | WBC | 14.3 (H) | 4.0 - 11.0 K/uL | [facility] | | | | | | [facility] | | | | | | MEDICAL | | | | | | CENTER - | | | | | | LABORATORY | | + + + + + + | RBC | 5.50 (H) | 3.70 - 5.20 | [facility] | | | | | M/uL | [facility] | | | | | | MEDICAL | | | | | | CENTER - | | | | | | LABORATORY | | + + + + + + | Hemoglobin | 17.5 (H) | 11.5 - 16.0 | [facility] | | | | | g/dL | [facility] | | | | | | MEDICAL | | | | | | CENTER - | | | | | | LABORATORY | | + + + + + + | Hematocrit | 52.5 (H) | 34.0 - 47.0 % | [...] + + + + | MCH | 31.8 | 28.0 - 35.0 pg | [facility] [...] + + + + | RDW-CV | 14.9 | <15.0 % | [facility] | | | | | | [facility] | | | | | | MEDICAL | | | | | | CENTER - | | | | | | LABORATORY | | + + + + + + | RDW-SD | 53.1 (H) | 35.1 - 46.3 fL | [facility] | | | | | | [facility] | | | | | | MEDICAL | | | | | | CENTER - | | | | | | LABORATORY | | + + + + + + | Platelet | 237 | 140 - 440 K/uL | [facility] [...] + + + + | % | 52.4 | 45.0 - 82.0 % | [facility] | | | Neutrophils | | | [facility] | | | | | | MEDICAL | | | | | | CENTER - | | | | | | LABORATORY | | + + + + + + | % | 41.5 | 20.0 - 45.0 % | [facility] [...] + + + + | % | 0.2 | 0.0 - 5.0 % | [facility] [...] + + + | % Immature | 0.3Comment: For | 0.0 - 0.4 % | [...] | | Neutrophils | | K/uL | [facility] | | | | | | MEDICAL | | | | | | CENTER - | | | | | | LABORATORY | | + + + + + + | Absolute | 5.93 (H) | 0.60 - 3.20 | [facility] | | | Lymphocytes | | K/uL | [facility] | | | | | | MEDICAL | | | | | | CENTER - | | | | | | LABORATORY | | + + + + + + | Absolute | 0.73 | 0.00 - 1.00 | [facility] | [...] + + + | Absolute | 0.04 (H)Comment: For | 0.00 - 0.03 | [...] ranges: Trim. Absolute (K/uL) Percentage (%) | [facility] | | 1st 0.003-0.091 K/uL 0.0-0.9% 2nd 0.007-0.247 K/uL | [facility] | | 0.1-2.0% 3rd 0.018-0.456 K/uL 0.1-2.0% | - LABORATORY | + + + + + + + + | Performing | Address | City/State/Zipcode | Phone Number | | Organization | | | | + + + + + | [facility] | [address] | [place] | [phone] | | [facility] | | [address] | | | - LABORATORY | | | | + + + + + B Type Natriuretic Peptide (03/05/2019 6:41 PM PDT) + +-------+ + + + | Component | Value | Ref Range | Performed | Pathologist | | | | | At | Signature | + +-------+ + + + | BNP | 40 | <100 pg/mL | [facility] | | | | | [...] [address] | [place] | [phone] | | [facility] | | [address] | | | - LABORATORY | | | | + + + + + ECG 12 lead (03/05/2019 6:37 PM PDT) + + + + + + | Component | Value | Ref Range | Performed | Pathologist | | | | | At | Signature | + + + + + + | VENTRICULAR | 222 | BPM | [facility] | | | RATE EKG | | | | | + + + + + + | ATRIAL RATE | 220 | BPM | [facility] | | + + + + + + | QRS | 74 | ms | [facility] | | | DURATION | | | | | + + + + + + | Q-T | 198 | ms | [facility] | | | INTERVAL | | | | | + + + + + + | Q-T | 380 | ms | [facility] | | | INTERVAL | | | | | | (CORRECTED) | | | | | + + + + + + | QRS AXIS | 90 | degrees | [facility] | | + + + + + + | T AXIS | -50 | degrees | [facility] | | + + + + + + | INTERPRETAT | Supraventricular | | [facility] | | | ION TEXT | tachycardiaRightward | | | | | | axisST abnormalities may | | | | | | be secondary to rate | | | | | | and/or ischemiaAbnormal | | | | | | ECGWhen compared with | | | | | | ECG of 13-DEC-2018 | | | | | | 14:18,Vent. rate has | | | | | | increased BY 140 | | | | | | BPMSignificant changes | | | | | | have occurredConfirmed | | | | | | by MARIANO HENRY MD | | | | | | ([id number]) on 03/06/2019 | | | | | | 6:37:37 AM | | | | + + [...] | | | + +--------+ +-------+------+------+ | adenosine (ADENOCARD) injection | Given | 03/05/20 | 12 mg | | | | 12 mg 12 mg, Intravenous, ONCE, | | 19 6:38 | | | | | 03/05/19 at 1840, For 1 dose | | PM PDT | | | | + +--------+ +-------+------+------+ +---+---+ | | | +---+---+ + +-------+ +-------+---+---+ | adenosine (ADENOCARD) injection | Given | 03/05/20 | 12 mg | | | | 12 mg 12 mg, Intravenous, ONCE, | | 19 6:40 | | | | | 03/05/19 at 1855, For 1 dose | | PM PDT | | | | + +-------+ +-------+---+---+ +---+---+ | | | +---+---+ + +-------+ +-------+---+---+ | dilTIAZem (CARDIZEM) injection | Given | 03/05/20 | 20 mg | | | | 20 mg 20 mg, Intravenous, ONCE, | | 19 6:47 | | | | | 03/05/19 at 1850, For 1 dose, | | PM PDT | | | | | Keep in refrigerator., | | | | | | + +-------+ +-------+---+---+ +---+---+ | | | +---+---+ + +-------+ +------+---+---+ | LORazepam (ATIVAN) injection 2 | Given | 03/05/20 | 2 mg | | | | mg 2 mg, Intravenous, ONCE, Mon | | 19 6:53 | | | | | 03/05/19 at 1855, For 1 dose | | PM PDT | | | | + +-------+ +------+---+---+ +---+---+ | | | +---+---+ + +-------+ +------+---+---+ | morphine injection 4 mg 4 mg, | Given | 03/05/20 | 4 mg | | | | Intravenous, ONCE, Mon03/05/19 at | | 19 7:52 | | | | | 1955, For 1 dose | | PM PDT | | | | + +-------+ +------+---+---+ +---+---+ | | | +---+---+ + +-------+ +--------+---+---+ | nitroglycerin (NITROSTAT) SL | Given | 03/05/20 | 0.4 mg | | | | tablet 0.4 mg 0.4 mg, | | 19 7:06 | | | | | Sublingual, ONCE, Mon03/05/19 at | | PM PDT | | | | | 1910, For 1 dose, Maximum of 3 | | | | | | | doses in 15 minutes., | | | | | | + +-------+ +--------+---+---+ +---+---+ | | | +---+---+ + +---------+ +---------+-------+---+ | sodium chloride 0.9% (NS) bolus | New Bag | 03/05/20 | 500 mLs | 500 | | | 500 mL 500 mL, Intravenous, | | 19 6:42 | | mL/hr | | | Administer over 1 Hours, ONCE, | | PM PDT | | | | | 03/05/19 at 1840, For 1 dose | | | | | | + +---------+ +---------+-------+---+ +---+---+ | | | +---+---+ documented in this encounter
--- OUTSIDE RECORDS SUMMARY | ~2020-03-13 | XMS | Encounter Summary ---
Demographics + + + | Address | [address] | | | [place] [address] | + + + | Home Phone | | + + + | Preferred Language | Unknown | + + + | Marital Status | | + + + | Baptism Affiliation | Unknown | + + + | Race | Unknown | + + + | Ethnic Group | Unknown | + + + Author + + + | Author | [facility] | | | and [place] | + + + | Organization | [facility] | | [...] Providers + +------+ + | Care Supervisor Fusing Room Name | Role | Phone | + [...] + + + + | 04/23/ | Telephone | [facility] | Deny Mcmanus, | Other | | 2019 | | [facility] | [address] | | | | | [facility] [address] [place], | | | | | [address] | [place] [address] | | | | | [place] [address] | [phone] | | | | | [phone] | | | +--------+ + + + [...] [place] | | | | | | [address] | | | | | | | | +--------+ + + + + | 03/18/ | Office | Physical Medicine | Jovana Dawson | | | 2019 | Visit | and Rehabilitation | MEL[place] [address] | | | | [address] | | | | | | [address] [place] | | | | | | [address] | | | | | | | | +--------+ + + + + | 04/01/ | Appointment | Oncology | Deny Mcmanus, | | | 2019 | | | [address] | | | | | | [address] [place] | | | | | | [place] [address] | | | | | | [phone] | | | | | | | | +--------+ + + + + | 04/08/ | Procedure | Physical Medicine | Leonard De Leon | | | 2019 | visit | and Rehabilitation | MD Kiki Win | | | | | | [place] | | | | | | [address] | | | | | | | | +--------+ + + + + | 04/30/ | Office | Cardiology | Shad Saavedra, | | | 2019 | Visit | | MD [address] | | | | | | [place] [place] | | | | | | [place] [address] | | | | | | [phone] | | | | | | | | +--------+ + + + + documented as of this encounter Visit Diagnoses Not on filedocumented in this encounter"
--- OUTSIDE RECORDS SUMMARY | ~2020-03-13 | XMS | Encounter Summary ---
Demographics + + + | Address | [address] | | | [place] [address] | + + + | Home Phone | | + + + | Preferred Language | Unknown | + + + | Marital Status | | + + + | Adventism Affiliation | Unknown | + + + | Race | Unknown | + + + | Ethnic Group | Unknown | + + + Author + + + | Author | [facility] | | | and [place] | + + + | Organization | [facility] | [...] Team Providers + +------+ + | Care Residential Concierge Name | Role | Phone | + +------+ + | Burton Masters MD | PCP | | + +------+ + Reason for Visit + + + | Reason | Comments | + + + | Leg Problem | Weakness and tingling in right lower leg. | + + + Encounter Details +--------+ + + + + | Date | Type | Department | Care Team | Description | +--------+ + + + + | 12/19/ | Telephone | [facility] | Burton Masters, | Leg Problem | | 2019 | | [facility] | [address] | (Weakness and | | | | [address] | [place], [place] | tingling in right | | | | [place], [place] | [address] | lower leg. ) | | | | [address] | | | | | | [phone] | | | +--------+ + + + [...] [place] | | | | | | [address] | | | | | | | | +--------+ + + + + | 03/18/ | Office | Physical Medicine | Jovana Dawson | | | 2019 | Visit | and Rehabilitation | MELANY Man [address] | | | | | [facility] | | | | | | [address] [place] | | | | | | [address] | | | | | | | | +--------+ + + + + | 04/01/ | Appointment | Oncology | Deny Mcmanus, | | 2019 | | | MD [address] | | | | | | [place] | | | | | | [place] [address] | | | | | | [phone] | | | | | | | | +--------+ + + + + | 04/08/ | Procedure | Physical Medicine | Leonard De Leon | | | 2019 | visit | and Rehabilitation | MD Kiki Win | | | | | | [place] | | | | | | [address] | | | | | | | | +--------+ + + + + | 04/30/ | Office | Cardiology | Shad Saavedra, | | | 2019 | Visit | | MD Alan Cruz | | | | | | [place] | | | | | | [place] [address] | | | | | | [phone] | | | | | | | | +--------+ + + + + documented as of this encounter Visit Diagnoses Not on filedocumented in this encounter"
--- OUTSIDE RECORDS SUMMARY | ~2020-03-13 | XMS | Encounter Summary ---
Demographics + + + | Address | [address] | | | [place] [address] | + + + | Home Phone [...] Providers + +------+ + | Care Health Services Director Name | Role | Phone | [...] Description | +--------+--------+ + + + | 09/12/ | Refill | [facility] | Burton Masters, | Medication Refill | | 2019 | | [facility] | [address] | | | | | [address] | [place] | | | | | [place] | [address] | | | | | [address] | | | | | | [phone] | | | +--------+--------+ + + + [...] [place] | | | | | | [address] | | | | | | | [...] [place] | | | | | | [address] | | | | | | | | +--------+ + + + + | 04/01/ | Appointment | Oncology | Deny Mcmanus, | | | 2019 | | | MD [address] | | | | | | [place] | | | | | | [place] [address] | | | | | | [phone] | | | | | | | | +--------+ + + + + | 04/08/ | Procedure | Physical Medicine | Leonard De Leon | | | 2019 | visit | and Rehabilitation | MD Kiki Win | | | | | | [place] | | | | | | [address] | | | | | | | | +--------+ + + + + | 04/30/ | Office | Cardiology | Shad Saavedra, | | | 2019 | Visit | | MD Alan Cruz | | | | | | [place], | | | | | | [place] [address] | | | | | | [phone] | | | | | | | | +--------+ + + + + documented as of this encounter Visit Diagnoses Not on filedocumented in this encounter"
--- OUTSIDE RECORDS SUMMARY | ~2020-03-13 | XMS | Encounter Summary ---
Demographics + + + | Address | [address] [facility] | | | [place] [address] | + + + | Home Phone [...] Team Providers + +------+ + | Care Mechanical Manufacturing Engineer Name | Role | Phone | [...] Shoulder | Suresh Parra, | [address] | | | | | pain, left | MD [address] | [place], | | | | | Procedures | [address] | [place] | | | | | MRI Shoulder | [place], | [address] | | | | | Left | [place] [address] | Phone: | | | | | Arthrogram w | Phone: | [phone] | | | | | Contrast | [phone] | Fax: | | | | | | Fax: | [phone] | | | | | | [phone] | | +--------+--------+ + + + + Reason for Visit + + + | Reason | Comments | + + + | Shoulder Pain | left shoulder pain | + + + Encounter Details +--------+---------+ + + + | Date | Type | Department | Care Team | Description | +--------+---------+ + + + | 04/22/ | Office | [facility] | Suresh Koch | Shoulder pain, left | | 2013 | Visit | ORTHOPEDIC SURGERY | MD Aida [address] [facility] | (Primary Dx) | | | | [address] [facility] | [place] | | | | | [place] | [address] | | | | | [address] | | | | | | [phone] | | | +--------+---------+ + + + [...] Temperature | 36.7 C (98.1 F) | 04/22/2014 3:47 PM | | | | | PDT [...] + + + + | Weight | 83.5 kg (184 lb) | 04/22/2014 3:47 PM | | | | | PDT | | + + + + + | Height | 172.7 cm (5' 8") | 04/22/2014 3:47 PM | | | | | PDT | | + + + + + | Body Mass Index | 27.98 | 04/22/2014 3:47 PM | | | | | PDT | | + + + + + documented in this encounter Progress Notes Suresh Koch MD - 04/22/2014 5:52 PM PDTSee soap note [id number].Electronically binh d by Suresh Koch MD at 04/22/2014 5:52 PM Suresh Cormier MD - 04/22/2014 12:00 AM PDT ORTHOPEDICS [address] [place] [id number] FAX: [phone] OFFICE VISIT Ashley returns today for followup of a problematic left shoulder. She has had left shoulde r pain for approximately 1/2 year. 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 She has had a previous corti sone injection from her primary care provider and more recently has received a subacromial space injection by Dominguez Ibarra, February 25, and subsequently underwent an intraarticular l eft shoulder joint injection by Dr. De Leon on March 04. Unfortunately, she has continue d to have significant shoulder pain without any noticeable improvement. She would like to p roceed with appropriate assessment and treatment as would be helpful to help her shoulder i mprove. EXAMINATION: Today exam reveals that she demonstrates active flexion and abduction to appr oximately 145 degrees at which point she has significant discomfort. She does have good abd uction strength against resistance. Crossed arm testing is quite painful. There is no shoul rosangela instability. Her neurovascular function is intact to the left hand. X-RAYS: X-rays taken previously of her left shoulder show no obvious bony abnormality. ADVICE: We have discussed our findings with Ashley. She has persisting symptoms. Further investigation is therefore warranted and we will obtain an MR arthrogram of her left should er and will see her back in our office following completion of the study for decision jc Koch MD / PAP JOB #: [id number] signed by Suresh Koch MD at 05/20/2014 9:13 PM PDTdo cumented in this encounter Plan of Treatment +--------+ + + + + | Date | Type | Specialty | Care Team | Description | +--------+ + + + + | 03/17/ | Virtual | Neurosurgery | Zuhair Flores | | | 2019 | Office | | MD [address] | | | | Visit | | [address] [place] [address] | | | | | | [place] | | | | | | [address] | | | | | | | | +--------+ + + + + | 03/18/ | Office | Physical Medicine | Jovana Dawson | | | 2019 | Visit | and Rehabilitation | [address] | | | | | | [facility] | | | | | | [address] [place] | | | | | | [id number] | | | | | | | | +--------+ + + + + | 04/01/ | Appointment | Oncology | Deny Mcmanus, | | | 2019 | | | [address] | | | | | | [facility], | | | | | | [place] [address] | | | | | | [phone] | | | | | | | | +--------+ + + + + | 04/08/ | Procedure | Physical Medicine | Leonard De Leon | | | 2019 | visit | and Rehabilitation | TMD [address] | | | | | | [facility] [place] | | | | | | [address] | | | | | | | | +--------+ + + + + | 04/30/ | Office | Cardiology | Shad Saavedra, | | | 2019 | Visit | | [address] | | | | | | [place], | | | | | | [place] [address] | | | | | | [phone] | | | | | | | | +--------+ + + + + documented as of this encounter Results MRI Shoulder Left Arthrogram [...] | somewhat prominent, consistent with a variant Lomita complex. The | | | glenoid labrum [...] GLENOID LABRUM. Dictated and Signed by: Oleg Crockett | | MD Robert Electronically signed: 05/19/2014 [...] AM | |prominent, consistent with a variant Lomita complex. The glenoid labrum and | |articular [...] + | MISCELLANEOUS LAB | | | [phone] | + +---------+ + + | MISCELANIOUS LAB | | | [phone] | + +---------+ + + FL Shoulder Injection Left for MRI or [...] + | MISCELLANEOUS LAB | | | [phone] | + +---------+ + + | MISCELANIOUS LAB | | | [phone] | + +---------+ + + documented in this encounter Visit Diagnoses + + | Diagnosis | + + | Shoulder pain, left - Primary Pain in joint, shoulder region | + + documented in this encounter
--- OUTSIDE RECORDS SUMMARY | ~2020-03-13 | XMS | Encounter Summary ---
Demographics + + + | Address | [address] [facility] | | | [place] [address] | + + + | Home Phone [...] + + | Author | [facility] | | | and [place] | + + + | Organization | [facility] | | | [...] Team Providers + +------+ + | Care Lead Bi Developer Name | Role | Phone | [...] + + + + | 05/03/ | Telephone | [facility] | Deny Mcmanus, | Patient Concerns | | 2019 | | [facility] | [address] | | | | | [facility]OGY CLINIC [address] [place], | | | | | [place] | [place] [address] | | | | | [place] [address] | [phone] | | | | | [phone] | | | +--------+ + + + [...] | | | Visit | | [facility] [address] | | | | | | [place] | | | | | | [address] | | | | | | | | +--------+ + + + + | 03/18/ | Office | Physical Medicine | Jovana Dawson | | 2019 | Visit | and Rehabilitation | [address] | | | | | | [facility] | | | | | | [address] [place] | | | | | | [address] | | | | | | | | +--------+ + + + + | 04/01/ | Appointment | Oncology | Deny Mcmanus, | | 2019 | | | [address] | | | | | | [address] [place] | | | | | | [place] [address] | | | | | | [phone] | | | | | | | | +--------+ + + + + | 04/08/ | Procedure | Physical Medicine | Leonard De Leon | | 2019 | visit | and Rehabilitation | MD Audelia [address] | | | | | | [facility] [place] | | | | | | [address] | | | | | | | | +--------+ + + + + | 04/30/ | Office | Cardiology | Shad Saavedra, | | | 2019 | Visit | | [address] | | | | | | [place], | | | | | | [place] [address] | | | | | | [phone] | | | | | | | | +--------+ + + + + + +------+--------+ + + | Name | Type | Priori | Associated Diagnoses | Order Schedule | | | | ty | | | + +------+--------+ + + | CBC with | Lab | Routin | Chronic myeloid | Expected: 05/29/2019 | | Differential | | e | leukemia, | (Approximate), | | | | | BCR/ABL-positive, | Expires: 05/03/2020 | | | | | not having achieved | | | | | | remission (HCC) | | + +------+--------+ + + | BCR-ABL1 for CML and | Lab | Routin | Chronic myeloid | Expected: 05/29/2019 | | All | | e | leukemia, | (Approximate), | | | | | BCR/ABL-positive, | Expires: 05/03/2020 | | | | | not having achieved | | | | | | remission (HCC) | | + +------+--------+ + + documented as of this encounter Visit Diagnoses + + | Diagnosis | + + | Chronic myeloid leukemia, BCR/ABL-positive, not having achieved remission (HCC) - | | Primary Chronic myeloid leukemia, without mention of having achieved remission | + + documented in this encounter"
--- OUTSIDE RECORDS SUMMARY | ~2020-03-13 | XMS | Encounter Summary ---
Demographics + + + | Address | [address] [facility] | | | [place] [address] | + + + | Home Phone [...] Team Providers + +------+ + | Care Ladle Filler Name | Role | Phone | [...] Description | +--------+--------+ + + + | 07/10/ | Refill | [facility] | Burton Masters, | Medication Refill; | | 2018 | | [facility] | [address] | Medication Refill | | | | [address] | [place] | | | | | [place] | [address] | | | | | [address] | | | | | | [phone] | | | +--------+--------+ + + + [...] [place] | | | | | | [address] | | | | | | | | +--------+ + + + + | 03/18/ | Office | Physical Medicine | Jovana Dawson | | | 2019 | Visit | and Rehabilitation | [address] | | | | | | [address] [place] | | | | | | [address] [place] | | | | | | [address] | | | | | | | | +--------+ + + + + | 04/01/ | Appointment | Oncology | Deny Mcmanus, | | | 2019 | | | [address] | | | | | | [place] | | | | | | [place] [address] | | | | | | [phone] | | | | | | | | +--------+ + + + + | 04/08/ | Procedure | Physical Medicine | Leonard De Leon | | | 2019 | visit | and Rehabilitation | MD [address] | | | | | | [place] | | | | | | [address] | | | | | | | | +--------+ + + + + | 04/30/ | Office | Cardiology | Shad Saavedra, | | | 2019 | Visit | | [address] | | | | | | [place] | | | | | | [place] [address] | | | | | | [phone] | | | | | | | | +--------+ + + + + documented as of this encounter Visit Diagnoses Not on filedocumented in this encounter"
--- OUTSIDE RECORDS SUMMARY | ~2020-03-13 | XMS | Encounter Summary ---
Demographics + + + | Address | [address] | | | [place] [address] | + + + | Home Phone [...] Team Providers + +------+ + | Care City Driver Name | Role | Phone | [...] | | | | BCR/ABL-posi | [address] | [place], | | | | | tive, in | [place], | [place] [address] | | | | | relapse | [place] | Phone: | | | | | (HCC) | [address] | [phone] | | | | | Chronic | Phone: | Fax: | | | | | myeloid | [phone] | [phone] | | | | | leukemia, | Fax: | | | | | | BCR/ABL-posi | [phone] | | | | | | tive, not | | | | | | | having | | | | | | | achieved | | | | | | | remission | | | | | | | (HCC) | | | | | | | Procedures | | | | | | | [place] OFFICE | | | | | | | OUTPATIENT | | | | | | | VISIT 25 | | | | | | | MINUTES | | | | | | | [address] | | | +--------+--------+ + + + + Encounter Details +--------+ + + + + | Date | Type | Department | Care Team | Description | +--------+ + + + + | 12/04/ | Hospital | [facility] | Deny Mcmanus, | CML (chronic | | 2020 | Encounter | [facility] | [address] | myelocytic leukemia) | | | | ONCOLOGY CLINIC [address] [place], | (HCC) (Primary Dx) | | | | [address] | [place] [address] | | | | | [place] [address] | [phone] | | | | | [phone] | | | +--------+ + + + [...] + + + | Blood Pressure | 110/71 | 12/04/2019 2:01 PM | | | | | PST | | + + + + + | Pulse | 76 | 12/04/2019 2:01 PM | | | | | PST | | + + + + + | Temperature | 36.3 C (97.3 F) | 12/04/2019 2:01 PM | | | | | PST | | + + + + + | Respiratory Rate | 16 | 12/04/2019 2:01 PM | | | | | PST | | + + + + + | Oxygen Saturation | 100% | 12/04/2019 2:01 PM | | | | | PST | | + + + + + | Inhaled Oxygen | - | - | | | Concentration | | | | + + + + + | Weight | 73.7 kg (162 lb 7.7 | 12/04/2019 2:01 PM | | | | oz) | PST | | + + + + + | Height | - | - | | + + + + + | Body Mass Index | 24.7 | 10/29/2019 8:45 AM | | | | | PST | | + + + + + documented in this encounter Discharge Instructions Patient Instructions Deny Mcmanus MD - 12/04/2019 2:00 PM PSTTemporarily stop your im atinib until after you see Dr. Masters and myself. documented in this encounter Medications at Time [...] tablets by | 90 | 0 | 12/04/19 | | | (ROXICODONE) 5 mg | [...] encounter Progress Notes Deny Mcmanus MD - 12/04/2019 2:00 PM PSTFormatting of this note might be different fr om the original. Hematology-Oncology Progress Note [facility] Pt. Name/Age/: Ashley Webb 34 y.o. 1985 CSN: [id number] Date of service: 12/04/2019 Provider: Deny Mcmanus MD HEMATOLOGY/ONCOLOGY PROBLEM LIST: Chronic myeloid leukemia (CML), BCR/ABL-positive (HCC) 01/02/2019 Initial Diagnosis Chronic myeloid leukemia, BCR/ABL-positive, not having achieved remission (HCC) 01/04/2019 - 04/26/2019 Chemotherapy dasatinib - intolerant 04/29/2019 - Chemotherapy imatinib 11/25/2019 Remission Major molecular response Of note, above dates are not necessarily exact. Assessment and plan: Patient is having an excellent response to the imatinib but unfortunately is having a multi tude of constitutional symptoms which may or may not be side effects, certainly would not be expected related to her underlying CML at this point. Timing would suggest its not the emil g, but they are fairly similar to what she had with dasatinib previously, thus recommended t hat she temporarily stop the drug to try to sort all this out. Certainly if the symptoms im prove, then will be stuck having to decide whether to put up with them, treat them symptomat ically, or consider alternatives including lower dose imatinib or switching over to nilotini b. If her symptoms persist however, then we can confidently say that they are not related t o the medication and that independent work-up will need to be pursued. 1. Temporarily discontinue imatinib. 2. Follow-up in a month with labs, patient also seeing PCP around that time. Subjective: The patient chart and medications were reviewed in detail and the patient was seen and exam ined. Ashley Webb is a 34 y.o. female with CML seen in follow-up. 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 Since that time however, has done poorly, nausea and vomiting in the morning if she eats, has lost some weight, abdominal cramping. No fevers or drenching sweats, but c omplains of bone and joint pain throughout her body from the neck down. No new rashes, no b leeding. Right fatigue. Struggling to work. PMH: Past Medical History: Diagnosis Date Abdominal pain Abnormal vaginal bleeding Abscess of trunk Anxiety Bipolar disease, chronic ([facility]) Breast lump Chest pain, unspecified Chronic low back pain 04/16/2015 Chronic myeloid leukemia, BCR/ABL-positive, not having achieved remission ([facility]) 9 Cough DDD (degenerative disc disease), lumbar 04/16/2015 Depression Engorgement of breasts associated with childbirth, delivered Fatigue Female pelvic pain Fibromyalgia Flu Generalized anxiety disorder Headache Insomnia Knee pain Lumbar radiculopathy - left lower extremity 04/16/2015 Missed Mucocele of salivary gland Muscle spasm Obesity Palpitations Panic disorder Pulpitis Sciatica Shoulder pain SVT (supraventricular tachycardia) ([facility]) Tachycardia Tobacco use Social & Family Hx: Social History Socioeconomic History Marital status: Spouse name: Not on file Number of children: 3 Years of education: 15 Highest education level: Not on file Occupational History 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 Reports daily nausea/vomiting since 2018, Reports low appetite, states is directly related to feeling nauseated a lot, is down 10 lbs since 10/29/19. Denies high fevers, shaking chills or night sweats. Ear, Nose, Mouth, Throat: Denies odynophagia, dysphagia, or tinnitus. Cardiovascular: Reports shortness of breath with exertion, feels this is worsening over the last few months. Denies chest pain, palpitations or orthopnea. Respiratory: Reports dry cough continues unchanged. Denies hemoptysis, or sputum production . Gastrointestinal: Reports abdominal cramping "depending on what I eat". Reports daily diarr hea, states around 2-4 episodes per day for the last few months, depending on what she eats. Denies constipation, melena, or bright red blood per rectum. Genitourinary: Denies hematuria or dysuria. Musculoskeletal: Reports constant back, hips and knee muscle and bone pain, rates currently at 5/10. At worst 8/10. Takes oxycodone for pain relief. Neurologic: Reports daily headaches every day for the last month. Reports tingling in arms, hands and occasionally legs, continues unchanged. Denies visual changes. Endocrine: Denies peripheral edema or heat/cold intolerance. Hematologic: Reports bruises easily, continues unchanged. Integumentary: Reports "my skin is starting to break down and show changes" to coccyx regio n, noticed one month ago. Pain: Reports constant back, hips and knee muscle and bone pain, rates currently at 5/10. A t worst 8/10. Takes oxycodone for pain relief. Note: here for follow up My chart: Active Medications: Current Outpatient Medications Medication Sig buPROPion (WELLBUTRIN) 100 mg tablet Take 1 tablet by mouth 2 times daily. cloNIDine (CATAPRES) 0.1 mg tablet 1 tablet by mouth every 6 hours as needed. diphenoxylate-atropine (LOMOTIL) 2.5-0.025 mg per tablet Take [...] Tape [Adhesive & Tape] Rash Vitals: Temp: 36.3 C (97.3 F) BP: 110/71 Pulse: 76 Resp: 16 SpO2: 100 % on Temp :Temp Av.3 C (97.3 F) Min: 36.3 C (97.3 F) Max: 36.3 C (97.3 F) Wt. Current: Weight: 73.7 kg (162 lb 7.7 oz) Physical Exam: ECOG Performance Status: 1 2 General: The patient is alert and oriented. No acute distress. Pale. HEENT: Non-icteric. Skin: No rashes, bruising, or petechiae. Psychiatric: Normal mood and affect. Appropriate. Occasionally tearful. Diagnostic studies: Available data and image reports were reviewed personally. See reports. Significant resul ts and findings are addressed here or in the Assessment and Plan. Component Latest Ref Rng & Units 11/25/2019 11/25/2019 12:34 PM 12:34 PM WBC 4.0 - 11.0 K/uL 4.8 RBC COUNT 3.70 - 5.20 M/uL 3.87 TOTAL Hemoglobin 11.5 - 16.0 g/dL 13.0 Hematocrit 34.0 - 47.0 % 37.9 MCV 83.0 - 101.0 fL 97.9 MCH 28.0 - 35.0 pg 33.6 MCHC 32.0 - 36.0 g/dL 34.3 RDW-CV <15.0 % 14.3 RDW-SD 35.1 - 46.3 fL 51.6 (H) Platelet Count 140 - 440 K/uL 137 (L) MPV 6.5 - 12.4 fL 9.1 % Neutrophils 45.0 - 82.0 % 45.1 % Lymphocytes 20.0 - 45.0 % 46.2 (H) % Monocytes 4.0 - 12.0 % 5.6 % Eosinophils 0.0 - 5.0 % 2.3 % Basophils 0.0 - 1.0 % 0.6 % Immature Granulocytes 0.0 - 0.4 % 0.2 Absolute Neutrophils 1.80 - 8.50 K/uL 2.18 Absolute Lymphocytes 0.60 - 3.20 K/uL 2.23 Absolute Monocytes 0.00 - 1.00 K/uL 0.27 Absolute Eosinophils 0.00 - 0.40 K/uL 0.11 Absolute Basophils 0.00 - 0.10 K/uL 0.03 Absolute Immature Granulocytes 0.00 - 0.03 K/uL 0.01 % nRBC 0 - 2 per 100 WBCs 0 Absolute nRBC 0.00 - 0.01 K/uL 0.00 Na 136 - 145 mmol/L 143 K 3.4 - 5.1 mmol/L 4.2 Chloride 98 - 107 mmol/L 112 (H) Carbon dioxide 20 - 31 mmol/L 27 Anion Gap 3 - 16 mmol/L 4 Glucose 60 - 106 mg/dL 97 BUN 9 - 23 mg/dL 7 (L) Creatinine 0.55 - 1.02 mg/dL 0.82 EGFR IF NOT >=60 mL/min/1.73m2 >60 Calcium 8.7 - 10.4 mg/dL 8.7 Albumin 3.2 - 4.8 g/dL 4.0 Bilirubin Total (Calculated) 0.3 - 1.2 mg/dL 0.7 Total Protein 5.7 - 8.2 g/dL 5.9 AST (SGOT) (REF) 0 - 34 U/L 32 ALT (SGPT) (REF) 10 - 49 U/L 37 ALK PHOS 46 - 116 U/L 68 Globulin 2.1 - 3.8 g/dL 1.9 (L) Albumin/Globulin Ratio 0.8 - 1.9 2.1 (H) BUN/Creatinine Ratio 8.5 BCR-ABL1 for CML and All Dx: CML (chronic myelocytic leukemia) (HCC) Ref Range & Units 9d ago 7mo ago b2a2 transcript % Comment 0.1637 Comment: <0.0032 % (sensitivity limit of assay) b3a2 transcript % Comment Comment CM Comment: <0.0032 % (sensitivity limit of assay) BCR/ABL1 of e1a2 Type % Comment Comment CM Comment: <0.0032 % (sensitivity limit of assay) Interpretation: Comment Comment CM Comment: NEGATIVE for the BCR-ABL1 e1a2 (p190), e13a2 (b2a2, p210) and e14a2 (b3a2, p210) fusion transcripts. These results do not rule out the presence of rare BCR-ABL1 transcripts not detected by this assay. Electronically signed by: Deny Mcmanus MD 12/04/2019 2:32 PM CC: Burton Masters MD Total time in face to face discussion with the patient and family was 25 minutes; more than 50% of the time was spent in counseling and coordination of care. Portions of this chart may have been created with [employer] voice recognition software. Occasi onal wrong-word or [...] [place] | | | | | | [address] | | | | | | | | +--------+ + + + + | 03/18/ | Office | Physical Medicine | Jovana Dawson | | | 2019 | Visit | and Rehabilitation | MELANY Man [address] | | | | | | [address] | | | | | | [address] [place] | | | | | | [address] | | | | | | | | +--------+ + + + + | 04/01/ | Appointment | Oncology | Deny Mcmanus, | | | 2019 | | | [address] | | | | | | [place] | | | | | | [place] [address] | | | | | | [phone] | | | | | | | | +--------+ + + + + | 04/08/ | Procedure | Physical Medicine | Leonard De Leon | | | 2019 | visit | and Rehabilitation | MD [address] | | | | | | [place] | | | | | | [address] | | | | | | | | +--------+ + + + + | 04/30/ | Office | Cardiology | Shad Saavedra, | | | 2019 | Visit | | [address] | | | | | | [place], | | | | | | [place] [address] | | | | | | [phone] | | | | | | | | +--------+ + + + + documented as of this encounter Results Comprehensive Metabolic Panel (12/25/2019 11:06 AM PST) [...] | | | | | mg/dL | [facility] | | | | [facility] - | | | | | | LABORATORY | | + + + + + + | eGFR if not | >60Comment: GLOMERULAR | >=60 | [facility] | | | | FILTRATION | mL/min/1.73m2 | [facility] | | | [facility] | RATE,ESTIMATED | | MEDICAL | | | | mL/min/1.90o3Dxby than | | CENTER - | | [...] | | | | | mg/dL | [facility] | | | | | | [facility] [...] ST. | [address] | [place] | [phone] | | [facility] | | [address] | | | - LABORATORY | | | | + + + + + documented in this encounter Visit Diagnoses + + | Diagnosis | + + | CML (chronic myelocytic leukemia) (HCC) - Primary Chronic myeloid leukemia, without | | mention of having achieved remission | + + documented in this encounter
--- OUTSIDE RECORDS SUMMARY | ~2020-03-13 | XMS | Encounter Summary ---
Demographics + + + | Address | [address] | | | [place] [address] | + + + | Home Phone [...] Team Providers + +------+ + | Care Color Artist Name | Role | Phone | + +------+ + | Nhi Oneal MD | PCP | | + +------+ + Encounter Details +--------+ + + + + | Date | Type | Department | Care Team | Description | +--------+ + + + + | 03/04/ | Orders Only | [facility] [place] | Leonard De Leon | Left shoulder pain | | 2013 | | PHYSIATRY [address] | MD Audelia [address] | (Primary Dx) | | | | [address] | [address] [place] | | | | | [place] | [address] | | | | | [address] | | | | | | [phone] | | | +--------+ + + + [...] W | | | | | | [address] | | | | | [...] [place], | | | | | | [place] [address] | | | | | | [phone] | | | | | | | | +--------+ + + + + | 04/08/ | Procedure | Physical Medicine | Leonard De Leon | | 2019 | visit | and Rehabilitation | TMD [address] | | | | | | [place] | | | | | | [address] | | | | | | | | +--------+ + + + + | 04/30/ | Office | Cardiology | Shad Saavedra, | | | 2019 | Visit | | [address] | | | | | | [place], | | | | | | [place] [address] | | | | | | [phone] | | | | | | | | +--------+ + + + + documented as of this encounter Results [place] Major Joint Injection Right (03/04/2014 4:43 PM PDT) + + | Specimen | + + | | + + + + + | Narrative | Performed At | + + + | 03/05/2014 LEFT INTRAARTICULAR GLENOHUMERAL JOINT INJECTION | [facility] | | CLINICAL HISTORY: ICD-9 CODE 719.41, SHOULDER PAIN Ashley | [facility] | | Eliseo Webb presents to the fluoroscopy suite for a [facility] | | fluoroscopically-guided left glenohumeral joint injection [...] + | [facility] | [address] | [place], [place] | [phone] | | [facility] | | [address] | | | - IMAGING | | | | + + + + + documented in this encounter Visit Diagnoses + + | Diagnosis | + + | Left shoulder pain - Primary Pain in joint, shoulder region | + + documented in this encounter"
--- OUTSIDE RECORDS SUMMARY | ~2020-03-13 | XMS | Encounter Summary ---
Demographics + + + | Address | [address] | | | [place] [address] | + + + | Home Phone [...] Team Providers + +------+ + | Care Marionette Performer Name | Role | Phone | + +------+ + | Burton Masters MD | PCP | | + +------+ + Reason for Visit + + + | Reason | Comments | + + + | Initial Assessment | | + + + Evaluate & Treat (Routine) +--------+ + + + + + | Status | Reason | Specialty | Diagnoses / | Referred By | Referred To | | | | | Procedures | Contact | Contact | +--------+ + + + + + | Closed | Specialty | Physical | Diagnoses | [facility], | Do Not Use | | | Services | Therapy / | Post | Burton Rizzo, | - [facility] | | | Required | Rehabilitatio | depression | MD [address] | [address] | | | | n | Back pain, | [address] | [address] | | | | | unspecified | [place], | [place], | | | | | back | [place] [address] | [place] [address] | | | | | location, | Phone: | Phone: | | | | | unspecified | [phone] | [phone] | | | | | back pain | Fax: | Fax: | | | | | laterality, | [phone] | [phone] | | | | | unspecified | | | | | | | chronicity | | | +--------+ + + + + + Encounter Details +--------+---------+ + + + | Date | Type | Department | Care Team | Description | +--------+---------+ + + + | 01/03/ | Office | [facility] | Burton Masters, | Back pain with | | 2017 | Visit | [facility] | MD [address] | radiation (Primary | | | | [address] [place] | [place], [place] | Dx) | | | | [place] [address] | [address] | | | | | [phone] | | | | | | | Senthil Ernst, PT | | +--------+---------+ + + + Social [...] encounter Progress Notes Senthil Ernst, PT - 01/03/2017 4:06 PM PST [facility] [address] [place] [address] Physical Therapy Initial Assessment Date: 01/03/2017 Patient Information Patient Name: Ashley Webb Date of : 1985 Age: 31 y.o. 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 Previous level of function and limitations: SHE HAs a hx of tobacco dependency. SHE HAS HAD C-SECTIONS. 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 STAIRS DIFFICULT Social History Social History Marital Status: Single Spouse Name: N/A Number of Children: N/A Years of Education: N/A Social History Main Topics Smoking status: Current Every Day Smoker -- 0.50 packs/day Smokeless tobacco: Never Used Alcohol Use: No Drug Use: No Sexual Activity: Not on file Other Topics Concern Not on file Social History Narrative Physical Therapy Plan of Care Date: 01/03/2017 Patient Name: Ashley Webb Date of : 1985 Encounter Diagnoses Code Name Primary? M54.9 Back pain with radiation Yes Date of Onset: 01/03/2017 Start of Care Date: 01/03/2017 Requested # of Visits: No data was found visits 2x/week for 6 MWEEKS Certification From: 01/03/2017 Certification To: 03/04/2017 Clinical Impression: Patient presents to physical therapy with THE C/O CHRONIC LOW BACK PA IN WITH SCIATICA DOWN BACK OF LEFT LEG TO FOOT. Objective exam reveals impairments with MUSC LE SKELETAL IMBALANCES. These impairments and diagnosis are causing functional limitations w ith patient s ability to EFFECTIVE TO ENGAGE ALL THE CORE MUSCLES TO STABILIZE THE SPINE a ffecting participation in the following activities PROLONGED SITTING, STANDING AND WALKING. Signs and symptoms are consistent with DDD/DJD OF THE L/S SPINE. Complexities contributing to frequency and duration of therapy: NONE ANTICIPATED. SHE WILL BENEFIT FROM THE INTERVENTI ON OF THE REHAB TEAM TO REDUCE PAIN TO MORE MANAGEABLE LEVELS AND TO IMPROVE THE NEUROMSCULA R EFFICIENCY OF ALL THE CORE MUSCLES. Goals: Patient Reported Outcome Goals Patient Reported Outcome Goals: PSFS Patient Specific Functional Scale Goal 1: SHE WILL BE ABLE TO SIT FOR UP TO 45 MINUTES 1-2 TIMES A DAY IN ORDER TO CHART AT [facility] Patient Specific Functional Scale Goal 1 Status: 2 Patient Specific Functional Scale Goal 1 Status Comment: CURRENTLY SHE CAN SIT 20 MINUTES Patient Specific Functional Scale Goal 2: SHE WILL BE ABLE TO STAND FOR UP TO 30 MINUTES AT A TIMES 3-4 TIMES A WORK SHIFT SO SHE CAN COMPLETE WORK ACTIVITIES. 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 M54.9 Back pain with radiation Yes Date of Onset: 01/03/2017 Referring Provider: Burton Masters MD No history on file. Past Medical History Diagnosis Date Anxiety Depression [...] breasts associated with childbirth, delivered Sciatica Flu Past Surgical History Procedure Laterality Date section Dilation and curettage of uterus 05/13/2015 section N/A 10/14/2016 Procedure: Repeat ; Surgeon: Dorota Beal DO; Location: [facility] MAIN OR Breast cyst aspiration Left Family History Problem Relation Age of Onset High blood pressure Mother Multiple sclerosis Mother High blood pressure Father High cholesterol Father Miscarriages / stillbirths Maternal Grandmother Stroke Maternal Grandfather Developmental History No Known Allergies Prior Treatment: Home - within the last sixty days Rehab Precautions Office Visit from 01/03/2017 in [facility] Rehab Precautions Precautions None Learning Style Patient's Optimum Learning Style: listening, reading, observation, performance of task Abuse Assessment Do you feel safe in your current relationship or home?: Yes Is anyone in your life misusing your money or property?: No Have you been hit, slapped physically hurt or threatened by your partner?: No Possible clinical concerns noted by clinician?: No Action taken by clinician: No concerns Fall Risk: Pain Assessment: Pain Rating Pre Assessment: 7 LUMBAR SPINE EVALUATION: SUBJECTIVE: History of Presenting Problem: Ashley Webb is a 31 y.o. female who pr esents to therapy WITH THE C/O CHRONIC,CONTANT AND WORSENING LOW BACK PAIN WITH REFERRAL KELLY N THE BACK OF THE LEFT LEG TO THE FOOT. Functional Limitations: SHE IS LIMITED IN PROLONGED SITTING AND STANDING. Precaution/special problems: NONE GIVEN Patient s Goals: DECREASE PAIN AND IMPROVE ABILITIES TO SIT,STAND AND LIFT. OBJECTIVE: Vitals:JY=031/86. P=70. SPO2=99% Observation/Posture/Alignment: FORWARD HEAD WITH ROUNDED SHOULDER; SOFT, WEAK ABDOMEN. Gait: NORMAL Functional Movements: Initial Assessment Progress Note / Discharge Sit<>Stand: SLOW AND PAINFUL Sit<>Supine: SAME Double Leg Squat: INSTABILITY AT THE HIPS AND KNEES Single Leg Squat: L= PROXIMAL INSTABILITY R= SAME Toe Walking: NO PROBLEMS Heel Walking: SAME Lumbar ROM: Initial Assessment Progress Note / Discharge Flexion: NT Extension: NT Side Bend Left: NT Side Bend Right: NT Initial Assessment Initial Assessment Progress Note/Discharge Progress Note/Discharge Left Right Left Right HIP ROM: WFL'S WFL'S Strength: Initial Assessment Initial Assessment Progress Note / Discharge Progress Note / D ischarge Left Right Left Right Iliopsoas (L1,L2): 5 5 Quadriceps (L3): 5 5 Ankle DF (L4): 5 5 Great Toe Ext (L5): 5 5 Glute Med (L5): 5 5 Ankle PF (S1): 5 5 Ankle Eversion (S1): 5 5 Hamstrings (S2): 5 5 Lumbo-Pelvic Stabilizers: 3 Paraspinals: 3 Segmental Joint Mobility: HYPERMOBILITY Palpation: NO DEFECTS Neurovascular: Initial Assessment Initial Assessment Progress Note / Discharge Progress Not e / Discharge Left Right Left Right Sensation: INTACT INTACT Myotomes: 5/5 5/5 Reflexes: NT NT Capillary Refill: NORMAL NORMAL Babinski: (down going is normal in adults) NT NT Special tests: Initial Assessment Initial Assessment Progress Note / Discharge Progress Not e / Discharge Left Right Left Right SLR with Lasegue s: POSITIVE NEG Slump: POSITIVE NEG Tyshawn s (MEE): NEG NEG Kendrick Test: NEG NEG Quadrant Test: NT NT Prone Instability Test: NT Outcome Measure: Initial Assessment Progress Note / Discharge OSWESTRY: 36/100% (A score of 0% = No Functional Disability of Lumbar Spine) Standardized Tests: Oswestry Disability Index (LINA) Pain Intensity: 3 - The pain is fairly severe at the moment Personal Care: 1 - I can take care of myself normally but it increases my pain Liftin - Pain prevents me from lifting heavy weights off the floor, but I can manage if the weights are conveniently positioned (ex. on a table) Walkin - Pain does not prevent me from walking any distance Sittin - Pain prevents me from sitting for more than 1/2 hour Standin - Pain prevents me from standing more than 1 hour Sleepin - Because of pain I get less than 6 hours sleep Sex life (if applicable): 2 - My sex life is nearly normal but is very painful Social Life: 2 - Pain prevents me from participating in more energetic activities (ex. spor ts, dancing, etc.) Travelin - I can travel anywhere but it increases my pain Oswestry Disability Index Score (Calculated): 18 Oswestry Disability Percentage Score: 36 Oswestry Disability Index Goal: IMPROVE 5-10 POINTS Assessment Patient presents to physical therapy with THE C/O CHRONIC LOW BACK PAIN WITH SCIATICA DOWN BACK OF LEFT LEG TO FOOT. Objective exam reveals impairments with MUSCLE SKELETAL IMBALANCES . These impairments and diagnosis are causing functional limitations with patient s abilit y to EFFECTIVE TO ENGAGE ALL THE CORE MUSCLES TO STABILIZE THE SPINE affecting participation in the following activities PROLONGED SITTING, STANDING AND WALKING. Signs and symptoms are consistent with DDD/DJD OF THE L/S SPINE. Complexities contributing to frequency and durat ion of therapy: NONE ANTICIPATED. SHE WILL BENEFIT FROM THE INTERVENTION OF THE REHAB TEAM T O REDUCE PAIN TO MORE MANAGEABLE LEVELS AND TO IMPROVE THE NEUROMSCULAR EFFICIENCY OF ALL TH E CORE MUSCLES. Rehabilitation potential: Patient demonstrates good potential to achieve established goals to address the documented impairments by participating in skilled physical therapy services. Goals: Patient Reported Outcome Goals Patient Reported Outcome Goals: PSFS Patient Specific Functional Scale Goal 1: SHE WILL BE ABLE TO SIT FOR UP TO 45 MINUTES 1-2 TIMES A DAY IN ORDER TO CHART AT [facility] Patient Specific Functional Scale Goal 1 Status: 2 Patient Specific Functional Scale Goal 1 Status Comment: CURRENTLY SHE CAN SIT 20 MINUTES Patient Specific Functional Scale Goal 2: SHE WILL BE ABLE TO STAND FOR UP TO 30 MINUTES AT A TIMES 3-4 TIMES A WORK SHIFT SO SHE CAN COMPLETE WORK ACTIVITIES. 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 CHILD IN ORDER TO CARE FOR IT Patient Specific Functional Scale Goal 3 Status: 4 Patient Specific Functional Scale Goal 3 Status Comment: CURREMNTLY SHE IS ABLE TO LIFT 10 POUNDS Oswestry Disability Index Goal: IMPROVE 5-10 POINTS Plan Date of Onset: 01/03/2017 Start of Care Date: 01/03/2017 Requested # of Visits: No data was found visits 2x/week for 6 MWEEKS Certification From: 01/03/2017 Certification To: 03/04/2017 Treatment Plan/Interventions PT EvaluationPT Re-[id number] - Therapeutic [id number] - Neuromuscular Reeducation9 7116 - Gait [id number] - Therapeutic [id number] - Self Care/Home Management Patient and/or family has indicated understanding of treatment needs and actively participa keily in the creation of this plan for care. Today's Treatment Start Time: 1430 Stop time: 1515 Duration: 45 minutes Timed Treatment Codes: 43 minutes # of PT Visits: Objective: Education of rehab timeline, focus and expectations. Education of pain modulation with use of ice/MHP, positioning, pacing and movement strategies for self care. RECEIVED VERBAL AND WRITTEN INS IN PIRIFORMIS STRETCH 1 AND 2, AND PRAYER STRETCH 1 AND 2 Next Visit: WILL REASSESS AND START CORE STRENGTHENING EXERCISES. Electronically signed by: Senthil Ernst PT, 01/03/2017 16:16 Patient Name: Ashley Webb/: 1985/ documented in [...] [place] | | | | | | [address] | | | | | | | | +--------+ + + + + | 03/18/ | Office | Physical Medicine | Jovana Dawson | | | 2019 | Visit | and Rehabilitation | MELANY Man [address] | | | | | | [address] [facility] | | | | | | [address] [place] | | | | | | [address] | | | | | | | | +--------+ + + + + | 04/01/ | Appointment | Oncology | Deny Mcmanus, | | | 2019 | | | [address] | | | | | | [place] | | | | | | [place] [address] | | | | | | [phone] | | | | | | | | +--------+ + + + + | 04/08/ | Procedure | Physical Medicine | Leonard De Leon | | | 2019 | visit | and Rehabilitation | MD [address] | | | | | | [place], [place] | | | | | | [address] | | | | | | | | +--------+ + + + + | 04/30/ | Office | Cardiology | Shad Saavedra, | | | 2019 | Visit | | MD [address] | | | | | | [place], | | | | | | [place] [address] | | | | | | [phone] | | | | | | | | +--------+ + + + + documented as of this encounter Visit Diagnoses + + | Diagnosis | + + | Back pain with radiation - Primary Backache, unspecified | + + documented in this encounter"
--- OUTSIDE RECORDS SUMMARY | ~2020-03-13 | XMS | Encounter Summary ---
Demographics + + + | Address | [address] | | | [place] [address] | + + + | Home Phone [...] Providers + +------+ + | Care Lead Performance Support Analyst Name | Role | Phone | [...] Description | +--------+--------+ + + + | 09/19/ | Refill | [facility] [place] [facility] | Burton Masters, | Medication Refill | | 2018 | | [facility] [place] | [address] | | | | | [address] | [place] | | | | | [place] | [address] | | | | | [address] | | | | | | [phone] | | | +--------+--------+ + + + [...] [place] | | | | | | [address] | | | | | | | | +--------+ + + + + | 03/18/ | Office | Physical Medicine | Jovana Dawson | | | 2019 | Visit | and Rehabilitation | MELANY Man [address] | | | | | | [address] | | | | | | [address] [place] | | | | | | [address] | | | | | | | | +--------+ + + + + | 04/01/ | Appointment | Oncology | Deny Mcmanus, | | 2019 | | | MD [address] | | | | | | [place] | | | | | | [place] [address] | | | | | | [phone] | | | | | | | | +--------+ + + + + | 04/08/ | Procedure | Physical Medicine | Leonard De Leon | | 2019 | visit | and Rehabilitation | T, MD [address] | | | | | | [place] | | | | | | [address] | | | | | | | | +--------+ + + + + | 04/30/ | Office | Cardiology | Shad Saavedra, | | | 2019 | Visit | | MD [address] | | | | | | [place], | | | | | | [place] [address] | | | | | | [phone] | | | | | | | | +--------+ + + + + documented as of this encounter Visit Diagnoses Not on filedocumented in this encounter"
--- OUTSIDE RECORDS SUMMARY | ~2020-03-13 | XMS | Encounter Summary ---
Demographics + + + | Address | [address] | | | [place] [address] | + + + | Home Phone | | + + + | Preferred Language | Unknown | + + + | Marital Status | Single | + + + | Jewish Affiliation | NON | + + + [...] Team Providers + +------+ + | Care Compliance Assistant Name | Role | Phone | + +------+ + | Burton Masters MD | PCP | | + +------+ + Encounter Details +--------+ + + + + | Date | Type | Department | Care Team | Description | +--------+ + + + + | 10/22/ | Pharmacy | Pharmacy @ [facility] | | | | 2019 | Visit | [address] | | | | | | Myron Arce Mailcode: | | | | | | [facility] | | | | | | and Healing, | | | | | | Building [address] | | | | | | [place], [place] | | | | | | [address] | | | +--------+ + + + [...] Arce | | | | | | [place], [place] | | | | | | [address] | | | | | | [phone] | | | | | | | | +--------+---------+ + + + documented as of this encounter Visit Diagnoses Not on filedocumented in this encounter"
--- OUTSIDE RECORDS SUMMARY | ~2020-03-13 | XMS | Encounter Summary ---
Demographics + + + | Address | [address] | | | [place] [address] | + + + | Home Phone [...] Team Providers + +------+ + | Care Diamond Grinder Name | Role | Phone | + [...] + + | 01/30/ | Telephone | [facility] [place] [facility] | Burton Masters, | Appointment Question | | 2020 | | [facility] | [address] | | | | | [address] | [place] | | | | | [place] | [address] | | | | | [address] | | | | | | [phone] | | | +--------+ + + + [...] [place] | | | | | | [address] | | | | | | | | +--------+ + + + + | 03/18/ | Office | Physical Medicine | Jovana Dawson | | | 2019 | Visit | and Rehabilitation | MELANY Man W | | | | | | [facility] | | | | | | [address] [place] | | | | | | [address] | | | | | | | | +--------+ + + + + | 04/01/ | Appointment | Oncology | Deny Mcmanus, | | 2019 | | | [address] | | | | | | [place], | | | | | | [place] [address] | | | | | | [phone] | | | | | | | | +--------+ + + + + | 04/08/ | Procedure | Physical Medicine | Leonard De Leon | | | 2019 | visit | and Rehabilitation | MD Kiki Win | | | | | | [place] | | | | | | [address] | | | | | | | | +--------+ + + + + | 04/30/ | Office | Cardiology | Shad Saavedra, | | | 2019 | Visit | | MD [address] | | | | | | [place] | | | | | | [place] [address] | | | | | | [phone] | | | | | | | | +--------+ + + + + documented as of this encounter Visit Diagnoses Not on filedocumented in this encounter"
--- OUTSIDE RECORDS SUMMARY | ~2020-03-13 | XMS | Encounter Summary ---
Demographics + + + | Address | [address] | | | [place] [address] | + + + | Home Phone [...] Author + + + | Author | [facility] | + + + | Organization | [facility] | + + + | Address [...] Providers + +------+ + | Care Manager Transition Name | Role | Phone | + +------+ + | Burton Masters MD | PCP | | + +------+ + Encounter Details +--------+ + + + + | Date | Type | Department | Care Team | Description | +--------+ + + + + | 01/04/ | Pharmacy | Specialty Pharmacy | | | | 2019 | Visit | Services [address] | | | | | | [address] | | | | | | [place], [place] | | | | | | [address] | | | | | | [phone] | | | +--------+ + + + [...] Arce | | | | | | [place], [place] | | | | | | [address] | | | | | | [phone] | | | | | | | | +--------+---------+ + + + documented as of this encounter Visit Diagnoses Not on filedocumented in this encounter"
--- OUTSIDE RECORDS SUMMARY | ~2020-03-13 | XMS | Encounter Summary ---
Demographics + + + | Address | [address] | | | [place] [address] | + + + | Home Phone [...] Team Providers + +------+ + | Care Nurse First Assist Name | Role | Phone | + [...] + + | 05/27/ | Telephone | [facility] | Deny Mcmanus, | Patient Concerns | | 2019 | | [facility] | [address] | | | | | [facility] [address] [place], | | | | | [place] | [place] [address] | | | | | [place] [address] | [phone] | | | | | [phone] | | | +--------+ + + + [...] | | | Visit | | [facility] [address] | | | | | | [place] | | | | | | [address] | | | | | | | | +--------+ + + + + | 03/18/ | Office | Physical Medicine | Jovana Dawson | | 2019 | Visit | and Rehabilitation | MELANY Man [address] | | | | | | [facility] | | | | | | [address] [place] | | | | | | [address] | | | | | | | | +--------+ + + + + | 04/01/ | Appointment | Oncology | Deny Mcmanus, | | 2019 | | | [address] | | | | | | [address] [place] | | | | | | [place] [address] | | | | | | [phone] | | | | | | | | +--------+ + + + + | 04/08/ | Procedure | Physical Medicine | Leonard De Leon | | | 2019 | visit | and Rehabilitation | MD Kiki Win | | | | | | [place] | | | | | | [address] | | | | | | | | +--------+ + + + + | 04/30/ | Office | Cardiology | Shad Saavedra, | | | 2019 | Visit | | MD [address] | | | | | | [place] [place] | | | | | | [place] [address] | | | | | | [phone] | | | | | | | | +--------+ + + + + documented as of this encounter Visit Diagnoses Not on filedocumented in this encounter"
--- OUTSIDE RECORDS SUMMARY | ~2020-03-13 | XMS | Encounter Summary ---
Demographics + + + | Address | [address] | | | [place] [address] | + + + | Home Phone [...] Team Providers + +------+ + | Care Car Rental Agent Name | Role | Phone | [...] Description | +--------+--------+ + + + | 09/30/ | Refill | [facility] | Burton Masters, | Medication Refill | | 2019 | | [facility] [place] | [address] | | | | | [address] | [place] | | | | | [place] | [address] | | | | | [address] | | | | | | [phone] | | | +--------+--------+ + + + [...] [place] | | | | | | [address] | | | | | | | [...] [place] | | | | | | [address] | | | | | | | | +--------+ + + + + | 04/01/ | Appointment | Oncology | Deny Mcmanus, | | | 2019 | | | MD [address] | | | | | | [place] | | | | | | [place] [address] | | | | | | [phone] | | | | | | | | +--------+ + + + + | 04/08/ | Procedure | Physical Medicine | Leonard De Leon | | | 2019 | visit | and Rehabilitation | MD Kiki Win | | | | | | [place] | | | | | | [address] | | | | | | | | +--------+ + + + + | 04/30/ | Office | Cardiology | Shad Saavedra, | | | 2019 | Visit | | MD Alan Cruz | | | | | | [place], | | | | | | [place] [address] | | | | | | [phone] | | | | | | | | +--------+ + + + + documented as of this encounter Visit Diagnoses Not on filedocumented in this encounter"
--- OUTSIDE RECORDS SUMMARY | ~2020-03-13 | XMS | Encounter Summary ---
Demographics + + + | Address | [address] | | | [place] [address] | + + + | Home Phone | | + + + | Preferred Language | Unknown | + + + | Marital Status | | + + + | Evangelical Affiliation | Unknown | + + + | Race | Unknown | + + + | Ethnic Group | Unknown | + + + Author + + + | Author | [facility] | | | and [place] | + + + | Organization | [facility] | | [...] Team Providers + +------+ + | Care Accident Report Clerk Name | Role | Phone | + +------+ + | Burton Masters MD | PCP | | + +------+ + Encounter Details +--------+ + + + + | Date | Type | Department | Care Team | Description | +--------+ + + + + | 08/09/ | Telephone | [facility] | Presley Bravo, | | | 2019 | | CENTER CV INTRA OP | MD [address] | | | | | [address] | [place], [place] | | | | | [place], [place] | [address] | | | | | [address] | | | | | | [phone] | | | +--------+ + + + [...] | | Visit | | [address] | | | | | | [place] | | | | | | [address] | | | | | | | | +--------+ + + + + | 03/18/ | Office | Physical Medicine | Jovana Dawson | | | 2019 | Visit | and Rehabilitation | MELANY Man [address] | | | | | | [address] | | | | | | [place] | | | | | | [address] | | | | | | | | +--------+ + + + + | 04/01/ | Appointment | Oncology | Deny Mcmanus, | | | 2019 | | | MD Alan [address] | | | | | | [place] | | | | | | [place] [address] | | | | | | [phone] | | | | | | | | +--------+ + + + + | 04/08/ | Procedure | Physical Medicine | Leonard De Leon | | | 2019 | visit | and Rehabilitation | MD Audelia [address] | | | | | | [place] | | | | | | [address] | | | | | | | | +--------+ + + + + | 04/30/ | Office | Cardiology | Shad Saavedra, | | | 2019 | Visit | | [address] | | | | | | [place], | | | | | | [place] [address] | | | | | | [phone] | | | | | | | | +--------+ + + + + documented as of this encounter Visit Diagnoses Not on filedocumented in this encounter"
--- OUTSIDE RECORDS SUMMARY | ~2020-03-13 | XMS | Encounter Summary ---
Demographics + + + | Address | [address] [facility] [address] | | | [place] [address] | + + + | Home Phone [...] Team Providers + +------+ + | Care Patient Transportation Driver Name | Role | Phone | [...] + + | Authorized | Specialty | Neurosurgery | Diagnoses | Liyah | Sandra | | | Services | | Right foot | MD Ari | Zuhair | | | Required | | drop | [address] | MD Joselito | | | | | | [place] | [address] | | | | | | [place] | [address] | | | | | | [address] | [place], | | | | | | Phone: | [place] [address] | | | | | | [phone] | Phone: | | | | | | Fax: | [phone] | | | | | | [phone] | Fax: | | | | | | | [phone] | + + + + + + + Evaluate & Treat (Routine) + + + + + + + | Status | Reason | Specialty | Diagnoses / | Referred By | Referred To | | | | | Procedures | Contact | Contact | + + + + + + + | Authorized | Specialty | Physical | Diagnoses | Liyah, | [facility] | | | Services | Therapy | Right foot | MD Ari | CLINIC | | | Required | | drop | [address] | PHYSICAL | | | | | | St [place] | THERAPY [address] | | | | | | [place] | [address] | | | | | | [address] | [place], | | | | | | Phone: | [place] [address] | | | | | | [phone] | Phone: | | | | | | Fax: | [phone] | | | | | | [phone] | Fax: | | | | | | | [phone] | + + + + + + + Reason for Visit + + + | Reason | Comments | + + + | Foot Numbness | | + + + Encounter Details +--------+ + + + + | Date | Type | Department | Care Team | Description | +--------+ + + + + | 01/01/ | Emergency | [facility] | Ari Pelletier MD | Right foot drop | | 2019 | | MED CTR EMERGENCY | [address] | (Primary Dx) | | | | CENTER [address] | [place] | | | | | [place] | [address] | | | | | [address] | | | | | | [phone] | | | +--------+ + + + [...] + + + | Blood Pressure | 112/85 | 01/01/2020 3:24 PM | | | | | PST | | + + + + + | Pulse | 86 | 01/01/2020 3:24 PM | | | | | PST | | + + + + + | Temperature | 36.3 C (97.4 F) | 01/01/2020 11:59 AM | | | | | PST | | + + + + + | Respiratory Rate | 18 | 01/01/2020 11:59 AM | | | | | PST | | + + + + + | Oxygen Saturation | 100% | 01/01/2020 3:24 PM | | | | | PST | | + + + + + | Inhaled Oxygen | - | - | | | Concentration | | | | + + + + + | Weight | 72.1 kg (159 lb) | 01/01/2020 11:59 AM | | | | | PST | | + + + + + | Height | 175.3 cm (5' 9") | 01/01/2020 11:59 AM | | | | | PST | | + + + + + | Body Mass Index | 23.48 | 01/01/2020 11:59 AM | | | | | PST | | + + + + + documented in this encounter Discharge Instructions Instructions Ari Pelletier MD - 01/01/2020Follow up with physical therapy. Referral sent to physical therapy and neurosurgery. AttachmentsThe following attachments cannot be sent through Care Everywhere.Foot Drop (Engl raheem)documented in this encounter Medications at Time of [...] [place] | | | | | | [address] | | | | | | | | +--------+ + + + + | 03/18/ | Office | Physical Medicine | Jovana Dawson | | | 2019 | Visit | and Rehabilitation | MELANY Man [address] | | | | | | [address] | | | | | | [address] [place] | | | | | | [address] | | | | | | | | +--------+ + + + + | 04/01/ | Appointment | Oncology | Deny Mcmanus, | | 2019 | | | [address] | | | | | | [address] [place], | | | | | | [place] [address] | | | | | | [phone] | | | | | | | | +--------+ + + + + | 04/08/ | Procedure | Physical Medicine | Leonard De Leon | | | 2019 | visit | and Rehabilitation | MD Audelia [address] | | | | | | [place], [place] | | | | | | [address] | | | | | | | | +--------+ + + + + | 04/30/ | Office | Cardiology | Shad Saavedra, | | | 2019 | Visit | | MD Alan [address] | | | | | | [place], | | | | | | [place] [address] | | | | | | [phone] | | | | | | | | +--------+ + + + + + +------+--------+ + + | Name | Type | Priori | Associated Diagnoses | Date/Time | | | | ty | | | + +------+--------+ + + | ED INFORMATION | [facility] | Routin | | 01/01/2020 11:53 AM | | EXCHANGE | | e | | PST | + +------+--------+ + + + + +--------+ + + | Name | Type | Priori | Associated Diagnoses | Order Schedule | | | | ty | | | + + +--------+ + + | [facility] | Outpatient | Routin | Right foot drop | Ordered: 01/01/2020 | | Clinic Physical | Referral | e | | | | Therapy - [facility] | | | | | | Referral | | | | | + + +--------+ + + | Neurosurgery [facility] | Outpatient | Routin | Right foot drop | Ordered: 01/01/2020 | | | Referral | e | | | [...] encounter Results MRI Lumbar Spine wo Contrast (01/01/2020 [...] of ankle and foot | + + documented in this encounter Administered Medications + +--------+ +--------+------+------+ | Medication Order | MAR | Action | Dose | Rate | Site | | | Action | Date | | | | + +--------+ +--------+------+------+ | cloNIDine (CATAPRES) tablet 0.1 | Given | 01/01/20 | 0.1 mg | | | | mg 0.1 mg, Oral, ONCE, Wed | | 20 12:47 | | | | | 01/01/20 at 1250, For 1 dose | | PM PST | | | | + +--------+ +--------+------+------+ +---+---+ | | | +---+---+ + +-------+ +-------+---+---+ | hydrOXYzine pamoate (VISTARIL) | Given | 01/01/20 | 25 mg | | | | capsule 25 mg 25 mg, Oral, ONCE, | | 20 12:52 | | | | | 01/01/20 at 1250, For 1 dose | | PM PST | | | | + +-------+ +-------+---+---+ +---+---+ | | | +---+---+ + +-------+ +------+---+---+ | ondansetron (ZOFRAN ODT) | Given | 01/01/20 | 4 mg | | | | disintegrating tablet 4 mg 4 mg, | | 20 12:48 | | | | | Oral, ONCE, 01/01/20 at 1250, | | PM PST | | | | | For 1 dose | | | | | | + +-------+ +------+---+---+ +---+---+ | | | +---+---+ + +-------+ +-------+---+---+ | oxyCODONE (ROXICODONE) tablet | Given | 01/01/20 | 10 mg | | | | 5-10 mg 5-10 mg, Oral, ONCE, Mon | | 20 12:47 | | | | | 01/01/20 at 1250, For 1 dose | | PM PST | | | | + +-------+ +-------+---+---+ +---+---+ | | | +---+---+ + +-------+ +-------+---+---+ | prochlorperazine tablet 10 mg | Given | 01/01/20 | 10 mg | | | | 10 mg, Oral, ONCE, Mon01/01/20 at | | 20 12:52 | | | | | 1250, For 1 dose | | PM PST | | | | + +-------+ +-------+---+---+ +---+---+ | | | +---+---+ documented in this encounter
--- OUTSIDE RECORDS SUMMARY | ~2020-03-13 | XMS | Encounter Summary ---
Demographics + + + | Address | [address] | | | [place] [address] | + + + | Home Phone [...] Team Providers + +------+ + | Care Circuit Board Repair Technician Name | Role | Phone | + +------+ + | Burton Masters MD | PCP | | + +------+ + Encounter Details +--------+ + + + + | Date | Type | Department | Care Team | Description | +--------+ + + + + | 01/04/ | Pharmacy | Outpatient Retail | | | | 2019 | Visit | [facility] | | | | | | [address] | | | | | | [address] [place], [place] | | | | | | [address] | | | | | | [phone] | | | +--------+ + + + [...] | 2020 | Visit | Malignancy | [address] | | | | | | [place], [place] | | | | | | [address] | | | | | | [phone] | | | | | | | | +--------+---------+ + + + documented as of this encounter Visit Diagnoses Not on filedocumented in this encounter"
[2020-03-13] MEDS ORDERED: ZOFRAN8 MG PO (10:32)
[2020-03-13] MEDS ORDERED: OXYCODONE HCL5 MG PO (10:33)
[2020-03-13] MEDS ORDERED: IMATINIB MESYL400 MG PO (10:44)
[2020-03-13] MEDS ORDERED: CATAPRES0.1 MG PO (10:44)
[2020-03-13] MEDS ORDERED: PROCHLORPERAZIN10 MG PO (10:45)
[2020-03-13] MEDS ORDERED: HYDROXYZINE HCL10 MG PO (10:46)
--- OUTSIDE RECORDS SUMMARY | 2020-03-13 11:06 | XMS ---
PreManage Notification: SHELIA LENZ Security Coding Auditor Events No recent Security Events currently on file CRITERIA MET - [facility] Earle Womack Community Health Worker 10/16/2019-Current PHONE: [phone] JAIRO MYERS [facility] Current PHONE: Unknown Corine has no Care Guidelines for this patient. ETerrell VISIT COUNT (12 MO.) [facility] [address] [facility] MARY Mike Naman TOTAL 8 NOTE: Visits indicate total known visits. ED/UCC VISIT TRACKING (12 MO.) 03/13/2020 10:[address] [facility] [place] TYPE: Emergency COMPLAINT: - L SIDE ABD PAIN, NAUSEA [facility]2020 [facility] DIAGNOSES: - Foot drop, right foot - Foot drop, right foot - MRI - Foot Numbness 09/24/2019 09:41 [facility] [place] TYPE: Emergency DIAGNOSES: - Chest pain, unspecified - CHEST PAIN SHORTNESS OF BREATH 09/17/2019 10:11 [facility] [place] TYPE: Emergency DIAGNOSES: - CHEST PAIN SHORTNESS OF BREATH - Other chest pain 09/02/2019 22:36 [facility] TYPE: Emergency COMPLAINT: - Seizures DIAGNOSES: - Seizures - Unspecified convulsions 07/15/2019 08:06 [facility] [place] TYPE: Emergency DIAGNOSES: - poss UTI - Urinary tract infection, site not specified - Dysuria 04/26/2019 11:30 [facility] [place] TYPE: Emergency DIAGNOSES: - Vomiting (Severe) - Diarrhea, unspecified - Nausea - Abdominal Pain - N/V/D Abd Pain - Vomiting, unspecified 04/16/2019 12:00 [facility] [place] TYPE: Emergency DIAGNOSES: - Chest pain, unspecified - poss fluid around heart - Pleuritic Chest Pain (Adult) INPATIENT VISIT TRACKING (12 MO.) No inpatient visits to display in this time frame [email or web address]
--- NOTE | 2020-03-13 14:45 | NUR ---
PT TO ROOM 129 FROM ER, ABLE TO SCOOT FROM STRETCHER TO BED INDEPENDENTLY, VERY TREMULOUS. PT ALERT AND ORIENTED X4, COOPERATIVE. PT C/O 9/10 LEFT UPPER QUAD PAIN AND NAUSEA, DENIES SOB AT THIS TIME. HR IS SINUS TACK, ALL OTHER VITALS WNL. PT ABLE TO STAND AND PIVOT WITH ONE PERSON ASSIST TO BEDSIDE COMMODE TO VOID 300 ML FOUL FRANCE URINE. SAMPLE SENT TO LAB. PT HAS CELL PHONE AND WALLET AT THE BEDSIDE.
--- NOTE | 2020-03-13 15:07 | NUR ---
PT GIVEN 1 MG IV DILAUDID FOR 9/10 ABD PAIN, AND 2 MG IV ATIVAN FOR TREMORS DUE TO ETOH WITHDRAWAL. PT ALSO GIVEN 4 MG IV ZOFRAN FOR NAUSEA. PT HAD APPROXIMATLY 100 ML PINK EMISIS, STATES SHE DRANK A "RED POWER-AID" EARLIER TODAY.
--- NOTE | 2020-03-13 16:13 | NUR ---
PT SITTING UP IN BED QUIETLY, TAKING A FEW ICE CHIPS FOR COMFORT. BOTH IV SITES ARE INTACT, NO REDNESS OR SWELLING NOTED, PT DENIES PAIN AT EITHER SITE, FLUIDS INFUSING EASILY. PT IS DROWSY, NAPPING FREQUENTLY. PT REPORTS LEFT UPPER ABD PAIN IS 7/10 AT THIS TIME.
--- NOTE | 2020-03-13 18:32 | NUR ---
DISCUSSED POSSIBILITY OF PRESIDEX DRIP FOR THIS PT DUE TO INCREASING W/D SYMPTOMS WITH . NO NEW ORDERS AT THIS TIME, WILL CONTINUE WITH ATIVAN, WILL CONTINUE TO MONITOR. UPDATED TO PT INCREASING HR, AND CONTINUED ELEVATED BP, STATES SHE MIGHT ADD A BETA EBBETO.
--- NOTE | 2020-03-13 19:30 | NUR ---
PATIENT APPEARS TO BE SLEEPING SOUNDLY. WAKES SLIGHTLY TO VOICE. REPORTS FEELING SLEEPY. ALLOWED TO REST. CALL LIGHT IN REACH.
--- NOTE | 2020-03-13 20:45 | NUR ---
PATIENT AWAKE. FEELING ANXIOUS AND PAINFUL. CIWA 13. PRN ATIVAN 1MG GIVEN WITH DIALUDID 1MG. PATIENT UP TO BSC. TOLERATED POORLY, SEVERE TREMORS WITH STANDING. SAFELY RETURNED TO BED WITH ASSISTANCE. HR ELEVATED TO 130-140'S WITH ACTIVITY. TOLERATING ROOM AIR. MILD NAUSEA AT THIS TIME. ABD DISTENDED AND TENDER. BOWEL SOUNDS ACTIVE. VOIDED 275 ML DARK FRANCE COLORED URINE. HOB ELEAVTED. BED ALARM ACTIVE.
--- NOTE | 2020-03-13 22:24 | NUR ---
PATIENT SITTING UP IN BED. REPORTS PAIN 9/10. IS FREQUENTLY DROWSY AND APPEARS TO BE RESTING. EDUCATION ON PAIN MED AVAILABILITY. SCHEDULED DOSE OF ATIVAN GIVEN. CIWA 12. PATIENT IS APPROPRIATE AND CALM. ENCOURAGED REST.
--- NOTE | 2020-03-13 23:39 | NUR ---
PATIENT REPORTS PAIN 07/16. CIWA 10. PRN DILAUDID PROVIDED.
--- NOTE | 2020-03-14 00:04 | NUR ---
PATIENT APPEARS TO BE SLEEPING SOUNDLY. WAKE TO VOICE. REPORTS IMPROVED PAIN CONTROL. CIWA 9. DENIES NEED TO VOID. VS STABLE. IV FLUIDS PER ORDER, SITE WNL. CALL LIGHT IN REACH.
--- NOTE | 2020-03-14 02:00 | NUR ---
PATIENT UP TO BSC, UNSTEADY ON FEET. 2 STAFF ASSIST. HR UP TO 140'S WITH ACTIVITY. SEVERE TREMORS NOTED. CIWA 12. SCHEDULED ATIVAN AND PRN ZOFRAN PROVIDED. PATIENT HAD SOME DRY HEAVING AFTER RETURNING TO BED. NO EMESIS. COVID SWAB DONE PER PROTOCOL. PATIENT TOELRATED WELL. HOB ELEVATED. CALL LIGHT IN REACH.
--- NOTE | 2020-03-14 03:15 | NUR ---
PATIENT UP TO EDGE OF BED. REPORTS NEED TO VOID. TRANSFERED TO BSC. UNABLE TO VOID. RETURNED TO BED. REPORTS PAIN 07/16, PRN DILAUDID PROVIDED.
--- NOTE | 2020-03-14 05:55 | NUR ---
PATIENT UP TO BSC. VOIDED 75 MLS. REPORTS PAIN AND NAUSEA. SCHEDULED ATIVAN PROVIDED BY GRACIA HIGGINS. KRYSTALWA 10. ASSISTED PATIENT BACK INTO BED. PATIENT REPORTS FEELING WEAK, TOLERATED ACTIVTY WELL.
--- NOTE | 2020-03-14 06:51 | NUR ---
PATIENT REPORTS PAIN 9/10 AND APPEARS ANXIOUS. MODERATE NAUSEA WELL WITH DRY HEAVING. PRN DILAUDID PROVIDED. 12.5 PHENERGAN GIVEN IN 20 ML NS OVER 20 MINS ON IV PUMP.
--- NOTE | 2020-03-14 08:11 | NUR ---
PT IS DROWSY, REPORTS GENERALIZED PAIN IS 9/10, REPORTS NAUSEA AND DIAPHORESIS. PT DENIES HALLUCINATIONS AT THIS TIME. IV SITES ARE INTACT, NO REDNESS OR SWELLING NOTED, FLUIDS AND FLUSHES INFUSE EASILY. VITALS REMAIN CONSISTANT, NO FEVERS NOTED.
--- NOTE | 2020-03-14 08:25 | NUR ---
PT IS HEAVY ONE PERSON ASSIST UP TO BEDSIDE COMMODE DUE TO TREMORS. PT UNABLE TO VOID AT THIS TIME. PT GIVEN PARTIAL BEDBATH, GOWN AND ALL LINENS CHANGED. PT ONLY ABLE TO WASH FACE WITH WARM WASHCLOTH. PT THEN BACK TO BED.
--- NOTE | 2020-03-14 09:40 | NUR ---
PT GIVEN 1 MG IV DILAUDID FOR 8/10 ABD PAIN, AND 2 MG SCHEDULED ATIVAN FOR ETOH WITH DRAWL.
--- NOTE | 2020-03-14 10:09 | NUR ---
PT SLEEPING SOUNDLY AT THIS TIME. NOTED TO HAVE SOME TWICHING OF HANDS DURING SLEEP. PT VITALS REMAIN CONSISTANT. IV SITES ARE INTACT, NO REDNESS OR SWELLING NOTED, PT DENIES PAIN AT EITHER SITE, FLUIDS AND FLUSHES INFUSE EASILY.
--- NOTE | 2020-03-14 14:00 | NUR ---
TOOK 2 LUNCHES. DISCHARGE INSTRUCTIONS GIVEN WITH PATIENT UNDERSTANDING.
--- NOTE | 2020-03-14 14:15 | NUR ---
AMBULATED TO ROOM 118 TO TAKE SHOWER. TOLERATED SHOWER WELL. IS VERY STABLE ON FEET.
--- NOTE | 2020-03-14 14:45 | NUR ---
DISCHARGED VIA W/C ACCOMP BY RN. HERE TO TAKE PATIENT HOME.
[2020-03-14] MEDS ORDERED: HYDROXYZINE PAM25 MG PO (16:15)
[2020-03-14] MEDS ORDERED: BUPROPION HCL100 MG PO (16:17)
[2020-03-14] MEDS ORDERED: LAMICTAL25 MG PO (16:18)
--- NOTE | 2020-03-14 16:19 | NUR ---
MED REC COMPLETED USING REFILL HISTORY AND PATIENT INTERVIEW.
--- NOTE | 2020-03-14 17:46 | NUR ---
pt sleeping at this time, appears comfortable, vitals are unchanged. resp are even and unlabored.
--- NOTE | 2020-03-14 19:23 | NUR ---
PT HAD A MOSTLY UNEVENTFUL DAY. PT REQUIRING ATIVAN MORE FREQUENTLY, AND REQUESTING DILAUDID MORE FREQUENTLY. PT IS HEAVY ONE PERSON ASSIST TO BSC, LOW URINE OUTPUT OF 325 FOR ENTIRE SHIFT. PT BECOMING MORE FORGETFUL, REQUIRES FREQUENT REMINDERS OF THE PLAN OF CARE AND HER EXPECTED LENGTH OF STAY. PT VITALS REMAIN CONSISTANT. PT INSISTS ON HAVING ALL BLINDS DRAWN IN ROOM TO DECREASE STIUMLATION. PT ASSESSMENTS HAVE NOT CHANGED MUCH ALL SHIFT. CALLED AT AROUND 1820 TO REPORT THE INCREASED NEED FOR ATIVAN, ORDER GIVEN TO INCREASE PRN ATIVAN DOSE TO 2 MG FROM 1 MG. PT ABLE TO USE CALL LIGHT, DOES NOT TRY TO GET OUT OF BED WITHOUT ASSISTANCE. PT DOES LIKE TO SIT AT THE BEDSIDE AND CAN DO THAT INDEPENDENTLY.
--- NOTE | 2020-03-14 20:13 | NUR ---
SCHEDULED ATIVAN PROVIDED. CIWA 12. PATIENT IS CALM AND APPROPRIATE. FORGETFUL, STARTS TO ASK QUESTIONS AND THEN FORGETS WHAT SHE WAS SAYING. DENIES NEED TO VOID. REPORTS 8/10 PAIN IN ABD. DISCUSSED PAIN MED SCHEDULED. WILL REASSESS WHEN MEDS AVAILABLE. IVF PER ORDER, SITE WNL. ABD MILDLY DISTENDED AND TENDER. BOWEL SOUNDS ACTIVE. MILD NAUSEA. PATIENT DENIES ANY NEEDS. CALL LIGHT IN REACH.
--- NOTE | 2020-03-14 20:38 | NUR ---
Pt wanted to walk in room, pt was very shaky, stood at side of bed with pt instead of walking. Pt had spilled ice in bed, changed pts draw sheet and blankets.
--- NOTE | 2020-03-14 21:15 | NUR ---
PATIENT UP TO BSC. MINIMAL ASSISTANCE. MODERATE TREMORS NOTED. PATIENT REQUESTING PRN PAIN MEDS. REMINDED HER THAT THEY WERE NOT YET AVAILABLE AND SHE STATED SHE COULD WAIT. BACK INTO BED. CALL LIGHT IN REACH.
--- NOTE | 2020-03-14 22:00 | NUR ---
PATIENT REPORTS PAIN 9/10 AND INCREASED NAUSEA WITH DRY HEAVES. PRN DILAUDID AND PHENERGAN GIVEN PER ORDERS. PATIENT IS CALM. ORIENTED BUT FORGETFUL.
--- NOTE | 2020-03-15 00:15 | NUR ---
PATIENT APPEARS TO BE SLEEPING SOUNDLY. VS STABLE. IV SITE WNL. CALL LIGHT IN REACH.
--- NOTE | 2020-03-15 02:00 | NUR ---
SCHEDULED ATIVAN AND PRN DILAUDID PROVIDED BY ALLOPATHIC DOCTOR
--- NOTE | 2020-03-15 04:30 | NUR ---
PATIENT APPEARS TO BE SLEEPING SOUNDLY. VS STABLE. IV SITE WNL, FLUIDS INFUSING PER ORDERS. ALLOWED PATIENT TO REST. CALL LIGHT IN REACH.
--- NOTE | 2020-03-15 06:00 | NUR ---
PRN PAIN MEDS PROVIDED FOR PAIN 8/10 AND ZOFRAN FOR MILD NAUSEA. PATIENT IS MORE ALERT AND CONVERSATIONAL THIS MORNING. TRANSFERED TO BS WITH MINIMAL ASSISTANCE. APPEARS MORE STEADY ON HER FEET. MANAGER INTENSIVE CARE UNIT ASSISTED WITH MORNING CARES. PATIENT BRUSHED HER TEETH AND FRESH LINENS AND GOWN WERE PROVIDED.
--- NOTE | 2020-03-15 08:16 | NUR ---
PT IS DROWSY, HOWEVER ABLE TO COMMUNICATED CLEARLY. PT IV SITES ARE INTACT, NO REDNESS OR SWELLING NOTED, BOTH SITES FLUSH EASILY, PT DENIES PAIN AT EITHER SITE. PT DENIES SOB, REPORTS BASELINE PAIN 7/10 IN LEFT UPPER ABD, PT DENIES NAUSEA. CLEAR LIQUID TRAY ORDERED PER .
--- NOTE | 2020-03-15 08:51 | NUR ---
VEHICLE COST ENGINEER FARM MANAGEMENT SUPERVISOR GAVE PATIENT WARM WASHCLOTH AND AM CARE SUPPLIES. CHECKED WITH PATIENT AND SHE SAID SHE DID ALL AM CARE AND DIDN'T NEED ANY THING ELSE AT THIS TIME.
--- NOTE | 2020-03-15 12:40 | NUR ---
PT IV SITES ARE INTACT, NO REDNESS OR SWELLING NOTED, PT DENIES PAIN AT EITHER SITE. FLUIDS AND FLUSHES INFUSE EASILY. PHYSICAL THERAPY IS IN THE ROOM TO WORK WITH PT AT THIS TIME. PT GIVEN IV PAIN MEDICATION PRIOR TO WORKING WITH PT DUE TO C/O 9/10 PAIN IN LEFT FLANK. PT IS ALERT AND ORIENTED X4, COOPERATIVE. PT ALSO GIVEN 4 MG IV ZOFRAN FOR REPORTED NAUSEA. PT REMAINS ON ROOM AIR, VITALS ARE IMPROVING SLIGHTLY.
--- NOTE | 2020-03-15 16:10 | NUR ---
BOTH IV SITES INTACT, BLOOD RETURN OBTAINED EASILY, PT DENIES PAIN AT EITHER SITE, FLUSH EASILY, NO REDNESS OR SWELLING NOTED. PT IS ALERT AND ORIENTED X4 AT THIS TIME, NOTABLY LESS TREMULOUS FROM THE BEGINNING OF THE SHIFT. PT REPORTS "I THINK I'M DOING BETTER".
--- NOTE | 2020-03-15 18:15 | NUR ---
PT DIET HAS BEEN ADVANCED TO FULL LIQUID DIET. DINNER ORDERED, AND DELIVERED. PT EATING WITH AMY.
--- NOTE | 2020-03-15 18:40 | NUR ---
PT ABLE TO EAT 100% OF FULL LIQUID DINNER, NO NAUSEA REPORTED. PT C/O 9/10 PAIN IN LEFT UPPER ABD. 8 MG IV MORPHINE GIVEN. PT IS ALERT AND ORIENTED X4, VERY INTERACTIVE.
--- NOTE | 2020-03-15 20:06 | NUR ---
PATIENT RESTING IN BED EYES CLOSED. IV FLUIDS AND MAG INFUSING PER ORDERS. SITE WNL X2. PATIENT REPORTS PAIN 6/10, HAS BEEN SLEEPING OFF AND ON. ABD IS SOFT, TENDER WITH HYPOACTIVE BOWEL SOUNDS. PATIENT DENIES NAUSEA. LUNG SOUNDS ARE CLEAR, DIM IN THE BASES. ENCOURAGED COUGH AND DEEP BREATHING. VS STABLE. AFEBRILE. ALLOWED PATIENT TO REST. CALL LIGHT IN REACH.
--- NOTE | 2020-03-15 20:59 | NUR ---
PATIENT UP TO THE BATHROOM. SLIGHTLY UNSTEADY ON HER FEET. AND REPORTS FEELING WEAK, HOWEVER STRONGER THAN THE PREVIOUS NIGHT. PATIENT VOIDED 700 MLS STRAW COLORED URINE. RETURNED TO BED. REQUESTING PRN ATIVAN. DISCUSSED SCHEDULED DOSE AT 2200. PATIENT AGREES TO SHE CAN WAIT UNTIL CLOSER TO THAT TIME. PAIN 8/10 AND REQUEST PRN PAIN MEDS WHEN AVAILABLE. NO NAUSEA AT THIS TIME.
--- NOTE | 2020-03-15 21:52 | NUR ---
PATIENT PROVIDED WITH SCHEDULED ATIVAN. CIWA 6. PRN PAIN MEDS FOR PAIN 8/10 ACROSS UPPER ABD. PATIENT DENIES NAUSEA. IV SITE WNL. CALL LIGHT IN REACH.
--- NOTE | 2020-03-16 00:10 | NUR ---
PATIENT UP TO BSC. LARGE VOID. APPEARS PAINFUL WITH MOVEMENT. PRN PAIN MEDS NOT YET AVAILABLE. PATIENT BACK TO BED. ENCOURAGED TO REST. WILL REASSESS WHEN PRN MEDS AVAILABLE.
--- NOTE | 2020-03-16 00:37 | NUR ---
PATIENT GIVEN PRN PAIN MEDS PER ORDERS FOR PAIN 9/10 ACROSS UPPER ABD. CIWA < 8. NO NAUSEA.
--- NOTE | 2020-03-16 03:30 | NUR ---
PATIENT UP TO THE BSC. REPORTS PAIN 07/16. PRN MORPHINE PROVIDED. NO NAUSEA. CIWA 7. PATIENT RETURNED TO BED. DENIES ANY FURTHER NEEDS.
--- NOTE | 2020-03-16 05:00 | NUR ---
LAB IN FOR MORNING DRAW. PATIENT IS ALERT AND APPEARS IN GOOD SPIRITS. DENIES ANY NEEDS AT THIS TIME.
--- NOTE | 2020-03-16 06:31 | NUR ---
PATIENT REPORTS PAIN 9/10 IN UPPER ABD. PRN MORPHINE PROVIDED WITH SCHEDULED ATIVAN. PATIENT'S CIWA = 6. DENIES NAUSEA. IV FLUIDS PER ORDER, SITE WNL. VS STABLE.
--- NOTE | 2020-03-16 07:30 | NUR ---
REPORT RECIEVED. PATIENT IS IN BED. IS TEARY. SLURRED SPEECH. SLIGHTLY SHAKEY.
--- NOTE | 2020-03-16 08:00 | NUR ---
ASSESSMENT DONE. PATIENT ASKING ABOUT SURGERY TODAY. TALKED WITH PATIENT ABOUT THIS. UNSURE IS PATIENT IS UNDERSTANDING OUR TALK. REMAINS TEARY. ROUTINE MEDICATIONS GIVEN. HOLDING FULL LIQ TRAY AT THIS TIME. HAS BEEN TAKING WATER. C/O NAUSEA AND PAIN.
--- NOTE | 2020-03-16 08:10 | NUR ---
PHENERGAN 12.5 MG IV GIVEN FOR NAUSEA.
--- NOTE | 2020-03-16 08:25 | NUR ---
TEARY, SHAKEY, SLURRED SPEECH. NOT AWARE OF DATE. DIFFICULT TRACKING. ATIVAN 1 MG IV GIVEN.
--- NOTE | 2020-03-16 09:20 | NUR ---
AMBULATD TO BR WITH ASSIST. USED WALKER. IS SOMEWHAT UNSTEADY ON FEET. BED LINENS CHANGED, MODIFIED SPONGE BATH GIVEN.
--- NOTE | 2020-03-16 09:35 | NUR ---
MORPHINE 6 MG IV GIVEN FOR C/O PAIN IN BOTH SIDES, LOWER LEFT RIB CAGE, BACK. RATES PAIN 9/10. HAS VERY SLURRED SPEECH. IS DIFFICULT TO UNDERSTAND.
--- NOTE | 2020-03-16 10:00 | NUR ---
PATIENT SLEEPING. ASKED BY STAFF NOT TO AWAKEN. WILL CHECK BACK LATER.
--- NOTE | 2020-03-16 10:30 | NUR ---
SLEEPING SINCE MORPHINE GIVEN. NO DISTRESS NOTED.
--- NOTE | 2020-03-16 11:35 | NUR ---
REQUESTING PAIN MEDICATION AND ANXIETY MEDICATION. OXYCODONE 15 MG PO GIVEN AND VISTERIL 25 MG PO GIVEN.
--- NOTE | 2020-03-16 12:30 | NUR ---
TOOK ENSURE ONE BOTTLE WELL.
--- NOTE | 2020-03-16 14:00 | NUR ---
PATIENT SLEEPING. WILL NOT AWAKEN AT THIS TIME. WILL CHECK IN MORNING.
--- NOTE | 2020-03-16 16:00 | NUR ---
ASSESSMENT UNCHANGED. HAS BEEN MORE TALKATIVE TODAY. REMAINS SOMEWHAT UNSTEADY ON FEET.
--- NOTE | 2020-03-16 18:03 | NUR ---
DR. AMBRIZ HERE TO SEE PATIENT.
--- NOTE | 2020-03-16 18:25 | NUR ---
IS VERY SHAKEY. UPSET ABOUT CONDITION AND TREATMENT. IS VERY AGITATED. ATIVAN 2 MG IV GIVEN.
--- NOTE | 2020-03-16 18:36 | NUR ---
C/O SEVERE UPPER ABD PAIN IS CRYING AND VERY UPSET. MORPHINE 8 MG IV GIVEN .
--- NOTE | 2020-03-16 19:07 | NUR ---
MORE CALM NOW. REPORT TO NEXT SHIFT.
--- NOTE | 2020-03-16 20:00 | NUR ---
V/S WDL OVERALL, CIWA AT THIS TIME IS A 6. PAIN IS A 8/10 AND PT IS FEELING ANXIOUS. PRN OXY 10MG AND VISTARIL 25MG TO BE GIVEN. PT IS CONFUSED TO PLACE ONLY AT THIS TIME ALL LOBES ARE CLEAR BUT DIMINSHED IN THE BASES, ABD IS TENDER TO TOUCH AND A BIT DISTENTDED, ABD SOUNDS ARE ACTIVE. PT DENIES NAUSEA. RIGHT FOOT DROP PRESENT, PEDIS PULSES +1.
--- NOTE | 2020-03-16 21:52 | NUR ---
CIWA NOW IS AN 11, 2MG IV ATIVAN WAS GIVEN. WILL CONTINUE TO MONITOR.
--- NOTE | 2020-03-16 22:22 | NUR ---
PT SET OFF BED ALARM. UP TO BATHROOM WITH SBA, VOIDED 400ML AND RETURNED TO BED. WHILE SITTING DOWN ON TOILET, PT HIT ELBOW AGAINST WALL, SMALL ABRASION NOTED TO RIGHT ELBOW. DENIES NEED FOR BANDAID. NO OTHER REQUESTS AT THIS TIME, BED ALARM SET FOR SAFETY.
--- NOTE | 2020-03-17 00:15 | NUR ---
V/S ARE WDL. SECOND ASSESSMENT WAS UNCHANGED FROM THE FIRST. PAIN IS 10/10 AT THIS TIME. PRN IV MORPHINE 8MG GIVEN. WILL CONTINUE TO MONITOR CIWA. URINE OUTPUT IS ADEQUATE.
--- NOTE | 2020-03-17 01:19 | NUR ---
PT AT THIS TIME IS VERY EMOTIONAL AND AGITATED. PT ALSO JUMPED OUT OF BED. PRN ATIVAN 2MG WAS GIVEN. WILL CONTINUE TO MONITOR.
--- NOTE | 2020-03-17 01:42 | NUR ---
MD JONES WAS CALLED SINCE PT NOW HAS 102.9 F TEMP. NO NEW ORDERS RECEIVED.
--- NOTE | 2020-03-17 01:55 | NUR ---
PT SET OFF BED ALARM, SHE IS VERY AGITATED AND CRYING. AT FIRST SHE IS UPSET ABOUT NOT BEING ABLE TO GO OUTSIDE FOR A CIGARETTE AND THEN SHE WAS UPSET ABOUT NOT SEEING HER KIDS. ATTEMPTED TO CONSOLE AND RE-ORIENT PATIENT. CIWA 19, PRN VISTARIL AND 2MG IV ATIVAN ADMINISTERED. BED ALARM REMAINS ON FOR SAFETY.
--- NOTE | 2020-03-17 02:50 | NUR ---
DR. JONES CALLED WHILE PRIMARY RN STAYED IN ROOM WITH PT. PT'S CIWA HAS BEEN STEADILY INCREASING TONIGHT, MOST RECENT SCORE WAS 25, PRN ATIVAN GIVEN. PT IS TACHYCARDIC IN THE 130'S. THE DOSES OF ATIVAN HAVE NOT BEEN SUCCESSFUL IN KEEPING THE PT CALM AND AN ADDITIONAL ANXIOLYTIC WAS REQUESTED. ORDER RECEIVED FOR PRN PHENOBARBITAL. PRIMARY RN RAYMUNDO UPDATED ON NEW ORDER.
--- NOTE | 2020-03-17 03:29 | NUR ---
PHENOBARB HAS BEEN GIVEN. PT IS STILL RESTLESS AND AGITATED. PT IS CONFUSED AND ONLY ORIENTED TO SELF. WILL CONTINEU TO MONITOR.
--- NOTE | 2020-03-17 03:47 | NUR ---
PT NOW AT THIS TIME IS SLEEPING. PT DOES REMAIN A 1:1 FOR NOW. HR IN THE LOW 100'S. OTHER V/S ARE STILL WDL. I WILL NOT WAKE UP PT FOR 0400 ASSESSMENT SINCE PT JUST NOW SETTLED.
--- NOTE | 2020-03-17 05:18 | NUR ---
PT IS STILL SLEEPING AT THIS TIME. NO NEW CONCERNS NOTED. V/S ARE WDL BUT PT IS SLIGHTL TACHY IN THE LOW 100'S.
--- NOTE | 2020-03-17 06:27 | NUR ---
PT AT THIS TIME IS STILL SLEEPING. V/S ARE WDL WITH HR AT 102. MOTHER OF PT CALLED JUST A FEW MINUTES AGO TO LET US KNOW THAT PT CALLED HER LAST NIGHT AND THAT PT DID NOT MAKE ANY SENSE... 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 PT ALSO HAS HAD SUCICIDE ATTEMPTS X4 FAR HER MOTHER KNOWS.
--- NOTE | 2020-03-17 07:50 | NUR ---
PT SITTING AT BEDSIDE, STATING "I NEED TO PEE" PT HELPED TO BEDSIDE COMMODE ADN URINATED 1200ML. PT ASSISTED BACK TO BED AND STATES "I NEED MEDS, I NEED MEDS" PT SITTING ON SIDE OF BED, VITALS TAKEN AT THIS TIME. ASSESSMENT AND MORNING MEDICATIONS TO BE COMPLETED SOON.
--- NOTE | 2020-03-17 09:05 | NUR ---
PATIENT SLEEPING. PATIENT WAS FAIRLY CONFUSED AND AGGITATED LAST NIGHT. STAFF WOULD NOT LIKE HER AWAKENED. WILL USE HER WASHER ASSEMBLER FOR INFORMATION.
--- NOTE | 2020-03-17 09:47 | NUR ---
SPOKE WITH PATIENTS ETHYLENE PLANT OPERATOR EX- GONZALO MUNOZ. HE STATES PATIENT LIVES IN [place] WITH THEIR CHILDREN. HE STATES HE IS NOW STAYING THERE AND WILL BE THERE WHEN SHE IS DISCHARGED. HE STATES SHE HAS DROP FOOT AND USES A BRACE ON HER FOOT, HAS A WALKER AT HOME SHE USES AT TIMES. SHE STILL DRIVES. IS NOT EMPLOYED AT THIS TIME. HE STATES SHE HAS NOT HAD ISSUES AFFORDING FOOD, UTILITIES OR HER MEDS THAT HE IS AWARE OF. HE STATES SHE GOES TO A DR MYERS IN [place] FOR PCP AND USES [facility] FOR [facility]S. HE STATES SHE HAS GONE TO REHAB TWICE (TO A PLACE IN [place]) AND DETOX CENTER TWICE IN THE PAST. HE STATES SHE WAS TRYING TO QUIT AGAIN. HE STATES THERE ARE NO STAIRS AT HOME SHE MUST USE. HE STATES HE HAS THE KIDS AND HAS REASSURRED HER THE FEW TIMES SHE HAS CALLED. CM WILL CONTINUE TO FOLLOW.
--- NOTE | 2020-03-17 09:56 | CONS ---
[facility] [address], [place] [address] Signed DATE OF CONSULTATION: 03/16/2020 REQUESTING PHYSICIAN: Dr. Rivers. PROBLEM: Hydropic gallbladder, recent pancreatitis considered likely alcohol-related pancreatitis. HISTORY OF PRESENT ILLNESS: This 35-year-old white woman was admitted to the hospital on March 13, 2020, having been evaluated in the emergency room by Dr. Garcia. She was admitted by Dr. Rodriguez with findings of abdominal pain, nausea and vomiting, and pancreatitis as manifested by a markedly elevated lipase level. Her pain was primarily in the epigastric area, both left and right subcostal, associated with nausea. The patient has chronic alcoholism and had been drinking a consider amount of alcohol during the previous month. She presented with tremulousness consistent with alcohol withdrawal syndrome. A gallbladder ultrasound was performed showing a hydropic gallbladder, but no sign of sludge or stones. She has had delirium tremens in the past including seizures. Lactic acid was elevated at 4.6, and she is concurrently being treated for chronic myelogenous leukemia originally at [facility] and followed by Dr. Mcmanus in [place]. Part of her medical regimen included an imatinib. The patient is known to have probable opiate dependency as well. She has apparently been in rehab situations in the past. She was admitted to the Intensive Care Unit where she was given intravenous fluids and medications to assist with her nausea and her alcohol withdrawal symptoms. She was noted to have a platelet count of 36,000 as recently as yesterday, March 15. Her care is now seen by Dr. Rivers, who has concerns regarding her hydropic gallbladder. Her lipase level was 425 on March 15 (yesterday), which remains high of course. Additional abnormalities include an AST of 133, an ALT of 142, and alkaline phosphatase of 115. Her creatinine is 0.44. Her alcohol level at admission was 93.2. Coag studies show an INR of 1.0. Serology including hepatitis serology was canceled, though initially ordered. She is COVID negative on testing. Notably, today her white count is 4.4, hematocrit of 38.1, platelets 37,000. The patient tells me she has had platelet infusion in the past. I have no imaging other than a recent ultrasound, though the patient does describe splenomegaly, but she is aware of it. SOCIAL HISTORY: Electronically Signed By: ANAHI AMBRIZ MD 03/17/20 0956 PATIENT NAME: SHELIA LENZ CONSULTATION DATE OF : 89 REPORT #: [id number] PHYSICIAN: ANAHI AMBRIZ MD PCP: NO PRIMARY CARE PHYSICIAN REPORT IS CONFIDENTIAL AND NOT TO BE RELEASED WITHOUT AUTHORIZATION [facility] [address], [place] [address] Signed The patient lives on [facility] She is , however, her is now staying with their 4 children, ages 10 through 2, and the children are now reasonably well cared for, it appears. REVIEW OF SYSTEMS: She denies any shortness of breath or chest pain. She is reasonably alert and oriented, though somewhat jittery currently. She has no complaints of lower extremity pain at this time. She has self assessment of leg swelling that varies with physical exam. PHYSICAL EXAMINATION: VITAL SIGNS: Her temperature is 98.2, pulse 97, respirations 18, blood pressure 128/95, room air saturation 97%. HEENT: Mucous membranes were reasonably moist. Trachea is midline. She is alert and oriented. Provides a reasonable history at this time. She does have some tremulousness. CHEST: Shows normal respiratory excursion without tachypnea. HEART: Regular. ABDOMEN: Slightly obese, but soft overall. There is mild tenderness in the upper abdomen, but no focal tenderness and particularly none in the right upper quadrant. EXTREMITIES: Show no clubbing, cyanosis, or edema. LABORATORY STUDIES: As previously noted. ASSESSMENT: The patient was admitted with pancreatitis initially thought and likely indeed related to alcohol abuse problems. Delirium has been avoided and her alcohol withdrawal symptoms have been reasonably addressed medically thus far. She has primarily been taking lorazepam and has been treated with intravenous opiates including morphine for her pain. Metoprolol has been given as well as bupropion and nicotine patch. She was discontinued on ceftriaxone, which was initiated initially. She has complicated problems including underlying CML, which may or may not contribute to her thrombocytopenia either directly or indirectly. Specifically, bone marrow suppression for platelet formation versus splenomegaly for platelet sequestration. Additionally, it is uncertain if she has cirrhosis with portal hypertension. This could allow for splenomegaly as well, as well as thrombocytopenia as a resulting effect. As regards to hydropic gallbladder, I have reviewed the ultrasound. There is no sign of shadowing gallstone or sludge and the gallbladder wall is not thickened. The gallbladder may be somewhat enlarged, but not as profound as one would generally expect with typical "hydropic gallbladder." In short, her pancreatitis is less likely related to a biliary source (gallstone pancreatitis), but more likely related to severe and ongoing alcohol abuse. A CT scan may settle some of these questions including that of splenomegaly, portal Electronically Signed By: ANAHI AMBRIZ MD 03/17/20 0956 PATIENT NAME: SHELIA LENZ CONSULTATION DATE OF : 89 REPORT #: [id number] PHYSICIAN: ANAHI AMBRIZ MD PCP: NO PRIMARY CARE PHYSICIAN REPORT IS CONFIDENTIAL AND NOT TO BE RELEASED WITHOUT AUTHORIZATION [facility] [address] [place], [place] [address] Signed hypertension, and whether there is persistence of a hydropic gallbladder. She is absolutely not a candidate for operative intervention with a platelet count as low as it is and perhaps not indicated for having cholecystectomy at all, if indeed there is no hydropic gallbladder or sign of acute cholecystitis. We will recommend Dr. Rivers consideration for a CT scan of the abdomen to assess for splenomegaly, the status of the liver as regards cirrhosis, concurrent ascites and if any evidence of portal hypertension. Further intervention will be predicated on those factors. As regards cholecystectomy for gallstone pancreatitis proper, such a procedure is indicated when the clinical pancreatitis has resolved, which at this point, it has not. I will continue to follow and assist as needed in the meantime. MD MUNA Vazquez/RIGOL /[id number] cc: MD Dr. Silvestre Sauceda Copies: DENNISE RODRIGUEZ MD ~ Electronically Signed By: ANAHI AMBRIZ MD 03/17/20 0956 PATIENT NAME: SHELIA LENZ CONSULTATION DATE OF : 89 REPORT #: [id number] PHYSICIAN: ANAHI AMBRIZ MD PCP: NO PRIMARY CARE PHYSICIAN REPORT IS CONFIDENTIAL AND NOT TO BE RELEASED WITHOUT AUTHORIZATION
--- NOTE | 2020-03-17 10:56 | NUR ---
PT UP SITTING ON EDGE OF BED. PATIENT STATES SHE NEEDED TO VOID, VOIDED 1050. SMALL AMOUNT OF SEDIMENT. PT WAS ASKING SEVERAL QUESTIONS ABOUT WHEN SHE WOULD GO HOME AND HOW LONG SHE HAD TO BE HERE. COGNITION IS IMPROVED. PATIENTS QUESTIONS ARE APPROPRIATE AND LINEAR. PATIENT EDUCATED ON THE DISEASE PROCESS AND NEED TO BE MONITORED. PATIENT WOULD LIKE TO EAT, STARTING WITH CHICKEN NOODLE SOUP AND WILL TALK TO MD ABOUT ADVANCING IF THAT IS TOLERATED.
--- NOTE | 2020-03-17 11:35 | NUR ---
PT SITTING UP ON SIDE OF BED. PT STATES SHE IS FEELING ANXIOUS AND NEEDS MEDICATION. PATIENT IS STARING OUT WINDOW WHILE SITTING STILL ON SIDE OF BED. PT STATES "I WILL ALSO NEED BREAKTHROUGH PAIN SOON FOR MY BACK PAIN" HR 97 BP 122/81 RR 16 98% RA. PATIENT GIVEN MEDICATIONS FOR ANXIETY PER MAR AND LAID BACK INTO BED. PT LYING SUPINE IN BED WITH THREE RAILS UP, BED IN LOWEST POSITION, CALL LIGHT AND BEDSIDE TABLE WITHIN REACH. WILL CONTINUE TO MONITOR.
--- NOTE | 2020-03-17 14:32 | NUR ---
PT SITTING ON SIDE OF BED WITH LEGS DANGLING OVER SIDE. PT STATES "MY BACK HURTS SO BAD" PT COMPLAINS OF BACK PAIN RATING IT AT A 7/10 AND STATES SHE IS "EXTREMELY ANXIOUS USUAL" PT GIVEN PRN MEDICATIONS PER MAR. PLAN TO SHOWER PATIENT LATER IF POSSIBLE. PT STATES A DESIRE TO SHOWER BUT SHE IS IN PAIN IN THE MOMENT. WILL REASSESS LATER. PT DENIES ANY FURTHER NEEDS AT THIS TIME. WILL CONTINUE TO MONITOR.
--- NOTE | 2020-03-17 14:42 | NUR ---
PHYSICAL THERAPY IN ROOM WITH PATIENT. AMBULATED IN MILLER AND BACK TO ROOM.
--- NOTE | 2020-03-17 15:30 | NUR ---
PATIENT USES CALL LIGHT AND ASKS FOR THIS RN TO CHECK ON HER PAIN MEDICATIONS WELL HER ANXIETY MEDICATIONS. PATIENT GIVEN PRN MEDICATIONS. PT TEARFUL AND STATES SHE JUST GOT OFF THE PHONE WITH HER FAMILY AND IS UPSET ABOUT HAVING TO STAY IN THE HOSPITAL FOR LONGER. DISCUSSED PLAN OF CARE AGAIN WITH PATIENT REGARDING HAVING HER CT SCAN TOMORROW, AND THEN FURTHER DECISIONS TO BE MADE ABOUT POTENTIAL SURGERY. PT SEEMS TO CALM SELF AFTER HAVING THIS DISCUSSION WITH THIS RN. PT RESTING WATCHING TV NOW. PT USING CALL LIGHT APPROPRIATELY AND N O INDICATION FOR BED ALARM AT THIS TIME.
--- NOTE | 2020-03-17 16:52 | NUR ---
PT LYING IN BED WITH EYES CLOSED, BREATHING EVENLY AND UNLABORED. PT DOES NOT APPEAR IN DESTRESS IN ANY WAY. HR 87 RR 16.
--- NOTE | 2020-03-17 17:30 | NUR ---
PT WANTS TO ORDER DINNER AND STATES THAT SHE WANTS "HER MEDS, ALL OF THEM, THE OXY, THE ZOFRAN, AND THE ATIVAN" PT EDUCATED ON MEDICATION TIMEFRAMES AND NOT BEING ABLE TO GET HER THE MEDICATIONS AT THIS TIME. PT VERBALIZES UNDERSTANDING AND IS OK WITH WAITING FOR THE OXYCODONE TO BE AVAILABLE. DINNER ORDERED FOR PATIENT. PT DENIES ANY FURTHER NEEDS AT THIS TIME. WILL CONTINUE TO MONITOR.
--- NOTE | 2020-03-17 18:16 | NUR ---
DR. AMBRIZ IN ROOM TO SEE PATIENT. PLAN OF CARE BEING DISCUSSED.
--- NOTE | 2020-03-17 20:00 | NUR ---
RECEIVED REPORT AT 1900, PT WAS IN BED SLEEPING. PT WAS WOKEN UP FOR ASSESSMENT. PT AT THIS TIME IS AAOX4, NO SIGNS OF WITHRAWLS WERE NOTED AT THIS TIME. HR IN THE LOW 100'S. OTHER V/S ARE WDL. ALL LOBES ARE CLEAR, ABD SOUNDS ARE PRESENT, ABD IS TENDER TO TOUCH BUT SOFT. PT HAS TRACE BILATERAL LEG EDEMA, RIGHT FOOT DROP PRESENT, NEW IV PLACED, GASTROGRAFIN GIVEN WITH 20 OZ OF WATER. URINE OUTPUT IS ADEQUATE. WILL CONTINUE TO MONITOR.
--- NOTE | 2020-03-17 22:00 | NUR ---
PAIN AT THIS TIME IS 9/10. 15MG PRN OXY WAS GIVEN. PT SO FAR IS CALM AND REMAINS ORIENTED FULLY. WILL CONTINIUE TO MONITOR.
--- NOTE | 2020-03-18 00:04 | NUR ---
PT STATED THAT HER PAIN IS MUCH BETTER AT THIS TIME. PT NOW IS SLEEPY AND WISHES TO REST. PT HAS REMAINED ORIENTED AND CALM SO FAR. NO NEED FOR A CIWA AT THIS TIME. V/S ARE WDL. SECOND ASSESSMENT HAD NO CHANGES FROM THE FIRST. WILL CONTINUE TO MONITOR.
--- NOTE | 2020-03-18 01:06 | NUR ---
PT IS SLEEPING AT THIS TIME. NO NEW CONCERNS NOTED.
--- NOTE | 2020-03-18 02:00 | NUR ---
PT IS SLEEPING AT THIS TIME. NO NEW CONCERNS NOTED.
--- NOTE | 2020-03-18 03:25 | NUR ---
V/S ARE WDL. NO NEW CONCERNS WERE NOTED AT THIS TIME. URINE OUTPUT IS ADEQUATE, PT HAS BEEN NPO SINCE 0000. PAIN IS CONTROLLED AT THIS TIME, NO CIWAA NEEDED AT THIS TIME. NO SYMPTOMS OF WITHRAWL NOTED.
--- NOTE | 2020-03-18 05:30 | NUR ---
PT AT THIS TIME IS 10/10. PRN MORPHINE 8MG WAS GIVEN. V/S ARE WDL, NO SIGNS OF WITHDRAWL NOTED. PT IS BACK TO SLEEP AT THIS TIME.
--- NOTE | 2020-03-18 06:10 | NUR ---
PT AT THIS TIME IS SLEEPING AGAIN. V/S ARE WDL, NO NEW CONCERNS NOTED.
--- NOTE | 2020-03-18 09:15 | NUR ---
PT TAKEN TO CT VIA WHEELCHAIR WITH FISH HATCHERY MANAGER AND RN. PT MOVED SELF TO CT TABLE WITH MINIMAL ASSISTANCE AND TOLERATED THE SCAN WELL. PT BACK TO ROOM. VOIDED 1100 AND IS IN BED RESTING AT THIS TIME. WILL CONTINUE TO MONITOR.
--- NOTE | 2020-03-18 10:00 | NUR ---
MD IN ROOM TO SEE PATIENT AT THIS TIME.
--- NOTE | 2020-03-18 12:35 | NUR ---
PT ARRIVED TO [facility] VIA WHEELCHAIR. PT ABLE TO STAND AND TRANSFER TO BED WELL
--- NOTE | 2020-03-18 12:36 | NUR ---
PT BEING TRANSFERRED TO MS. REPORT GIVEN TO RN TAKING PATIENT. PATIENT WALKED OVER WITH BELONGINGS TO ROOM AND SETTLED IN. PT DENIES ANY FURTHER NEEDS. MS RN IN ROOM WITH PATIENT.
--- NOTE | 2020-03-18 13:40 | NUR ---
SPOKE WITH ALE. SHE STATES SHE LIVES WITH HER EXDREWSBAND, THEIR 5 CHILDREN, AND HIS NEW GIRLFRIEND. STATES THIS ARRANGEMENT WORKS FOR THEM. SHE STATES SHE HAS HAD REHAB AND DETOXED IN THE PAST. 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 STATES SHE IS FEELING BETTER NOW AND IS FRIENDS WITH HIS CURRENT GIRLFRIEND. SHE DECLINES PEER TO PEER SUPPORT. STATES SHE HAS HAD PROBLEMS WITH ALCOHOL SINCE AGE 13. WOULD LIKE TO GO HOME TODAY. STATES SHE ATE AND WAS NAUSEATED, BUT WAS ABLE TO KEEP HER FOOD DOWN. STATES PANCREATITIS HAS BEEN VERY PAINFUL AND SHE NO LONGER WANTS TO DRINK. INFOMRED I WILL NOTIFY DR JONES SHE WANTS TO GO HOME. REQUESTED SHE CALL ME IF SHE CHANGES HER MIND ABOUT PEER TO PEER SUPPORT. LET HER KNOW IT IS NOT REHAB, BUT PEERS WHO HAVE HAD ISSUES WITH ALCOHOL WHO CAN SPEAK WITH HER. CALLED DR JONES AND LET HIM KNOW, PT WOULD LIKE TO GO HOME TODAY.
--- NOTE | 2020-03-18 14:10 | NUR ---
IN PTS ROOM DUE TO PT NOW HAVING EMESIS SPELL. PT REQUESTING PAIN MEDS AND SOMETHING FOR THE NAUSEA. PROVIDED PT WITH 4MG ZOFRAN AND DISCUSSED WITH PT THAT THE MD HAD DC THE BREAK THROUGH PAIN MEDS. PT VERBALIZED UNDERSTANDING AT THIS TIME
--- NOTE | 2020-03-18 14:40 | NUR ---
PT UP WALKING THE HALLS WITH PHYSICAL THERAPY. PT APPEARS TO BE DOING MUCH BETTER.
--- NOTE | 2020-03-18 17:10 | NUR ---
CHECKED ON PT, CALL LIGHT WITHIN REACH. PT HAS NO REQUESTS OR CONCERNS AT THIS TIME
--- NOTE | 2020-03-18 17:55 | NUR ---
PATIENT SITTING UP IN BED. VITAL SIGNS AND I&O DONE. SETS UP BATHROOM FOR SHOWER. IV WRAPPED. CALL LIGHT WITHIN REACH. NO OTHER NEEDS AT THIS TIME
--- NOTE | 2020-03-18 20:05 | NUR ---
BRACE R FOOT OFF-FOOT DROP, SHOWERED, C/O DRY HEAVING, MEDICATED, MEDICATED WITH OXYCODONE 15MG PO C/O BACK PAIN 07/16, WALKING IN ROOM, ALERT AND ORIENTED, DENIES VISUAL-AUDIROTY HALLUCINATIONS
--- NOTE | 2020-03-18 23:34 | NUR ---
RESTING, EYES CLOSED, RESP EVEN, UNLABORED, FLUIDS AT CALL LIGHT AT BEDSIDE
--- NOTE | 2020-03-18 23:57 | NUR ---
c/o back and abd pain, medicated with Oxycodone 15mg po, and xtra pillow given
--- NOTE | 2020-03-19 02:03 | NUR ---
Resting, eyes closed, resp even, unlabored, no s/sx hallucinatins, calm at thias time. fluids and call light at bedside
--- NOTE | 2020-03-19 04:12 | NUR ---
pt c/o 08/15 abd and back pain, medicated with Oxycodone 15mg po. turns self in bed. fluids and call light at bedside, independent in room. vodidng qs
--- NOTE | 2020-03-19 05:46 | NUR ---
Pt currently resting, has been medicated 2x with Oxycodone per back and bad pain with good to fair relief, was medicated with Zofran 1x per dry heaving, no n/v or emesis noted. tolerataing diet very well. independent inroom. R leg with hx of neuropathy, numbeness and foot drop, wears brace at times, showored. uses call light appropriately, has rested off and on.
--- NOTE | 2020-03-19 06:35 | NUR ---
WALKING HALLWAYS, SEVERAL TIMES, TOLERATED WELL, BACK TO ROOM.
--- NOTE | 2020-03-19 07:45 | NUR ---
ENTERED pt ROOM TO CHECK ON pt. pt SITTING UP IN BED WITH CALL LIGHT WITHIN REACH, HEAD RAILS UP X2, AND BED IN LOWEST IN POSITION. pt ASKED FOR NAUSEA MEDICATION.
--- NOTE | 2020-03-19 08:56 | NUR ---
DR. JONES SUGGESTED LOW-FAT DIET EDUCATION BECAUSE BECAUSE IT WOULD BE GOOD FOR HER TO FOLLOW FOR A FEW DAYS AT HOME. PATIENT STATES SHE HAS OUR LOW-FAT MENU AND WANTS TO TAKE IT HOME TO HAVE IDEAS. SHE WAS ONLY EATING ONE MEAL A DAY, DRINKING ALCOHOL THROUGHOUT THE DAY WELL. SHE IS ON CHEMO WHICH MAKES HER SICK IN THE MORNING, SO SHE EATS LATER IN THE DAY. SHE STATED SHE DOESN'T WANT TO LOSE MORE WEIGHT, SO WE TALKED ABOUT EATING 3 MEALS AND A COUPLE SNACKS OR 4 SMALL MEALS, SOMETHING MORE THAN 1 MEAL A DAY. I ENCOURAGED VARIETY AND EXPLAINED LOW-FAT FOODS THAT WILL WORK. SHE IS NOT A MILK DRINKER, LIKES YOGURT, LOVES CHEESE, NOT A FAN OF PEANUT BUTTER. PROVIDED HER HANDOUTS ON FAT-RESTRICTED DIET AND SAMPLE 5-DAY MENU. SHE APPRECIATED MY HELP AND DID NOT HAVE ANY QUESTIONS. MY OFFICE # PROVIDED IN CASE FURTHER QUESTIONS ARISE.
--- NOTE | 2020-03-19 09:02 | NUR ---
ENTERED pt ROOM TO ADMINISTER MEDICATIONS AND PERFORM ASSESSMENT. pT SITTING UP IN BED WITH HEAD RAILS UP X2, CALL LIGHT WITHIN REACH, AND BED IN LOWEST POSITION. MEDICATIONS ADMINISTERED AND ASSESSMENT COMPLETED. pt GOT UP AND STARTED WALKING AROUND THE ROOM. pt LEFT SITTING IN CHAIR TALKING ON PHONE.
--- NOTE | 2020-03-19 09:12 | NUR ---
PT HAD EATTING ZIOPHARM Oncology EARLERY THIS AM.
--- NOTE | 2020-03-19 09:39 | NUR ---
pt SITTING UP IN BED WAITING TO HEAR ABOUT BEING DISCHARGED. MICROARRAY ANALYST TOLD pt THAT SOON HE KNEW HE WOULD TELL HER. pt NEEDS NOTHING ELSE AT THIS TIME.
--- NOTE | 2020-03-19 10:20 | NUR ---
ENTERED pt ROOM TO CHECK ON pt. pt WALKING AROUND IN ROOM. pt NEEDED NOTHING AT THIS TIME.
[2020-03-19] MEDS ORDERED: NICOTINE1 EAC1 TD (10:22)
--- NOTE | 2020-03-19 10:42 | NUR ---
ENTERED pt ROOM TO TAKE OUT IV AND GET DISCHARGE VITALS. pt NEEDED NOTHING AT THIS TIME.
--- NOTE | 2020-03-19 10:45 | NUR ---
Spoke with Aniya. Ex will arrive to pick her up shortly. She is anxious to leave and pacing. Denies needs and continues to decline offer of Peer to Peer support.
--- NOTE | 2020-03-19 11:26 | NUR ---
pt READY TO DISCHARGE. CHERIE MORRELL TAKING HER TO FRONT DOOR. DISCHARGE EDUCATION PROVIDED BY RN TARUN WHITE.
--- NOTE | 2020-03-19 11:28 | NUR ---
PT GIVEN DISCHARGE INSTRUCTIONS ALL QUESTIONS ANSWERED. PT IS VERY TALKATIVE AND APPEARS HAPPY GO SHERRY AT THIS TIME. PT IS DRESSED AND IS AMBULATED TO THE FRONT DOOR WITH NURSING STAFF.
== END 2020-03-19 11:25 | disposition home or self-care (01) | DRG 896 ==
LOC: ED 10:05 → CCU 14:05 → MS 03-18 12:35
PROVIDERS: ADMIT Internal Medicine
DX: F10.231 Alcohol dependence with withdrawal delirium (principal); K85.20 Alcohol induced acute pancreatitis without necrosis or infection; E87.2 Acidosis; C92.10 Chronic myeloid leukemia, BCR/ABL-positive, not having achieved remission; K82.1 Hydrops of gallbladder; F11.20 Opioid dependence, uncomplicated; K70.10 Alcoholic hepatitis without ascites; F17.200 Nicotine dependence, unspecified, uncomplicated; F41.8 Other specified anxiety disorders; E83.42 Hypomagnesemia; I48.91 Unspecified atrial fibrillation; M54.9 Dorsalgia, unspecified; G89.29 Other chronic pain; D69.59 Other secondary thrombocytopenia
CPT/HCPCS: 36415; 74178; 76705; 80053; 81001; 83605; 83690; 83735; 84703; 85025; 85610; 86703; 86803; 87077; 87088; 87186; 87340; 96361; 96374; 96375; 96376; 97110; 97116; 97162; 99285-25; 99406; C9113; G0480; J0696; J1170; J1650; J2060; J2270; J2405; J2550; J2560; J2765; J3411; J3475; J3480; J7030; J7120; J7121; Q0177; Q9967; U0002

== ENCOUNTER 2021-02-08 14:56 | Emergency (ER) | payer OTHER ==
[~2021-02-08] VITALS: Ht 172.7 cm; Wt 74.8 kg
[~2021-02-08 14:56] MED LIST: BUPROPION HCL100 MG PO; CATAPRES0.1 MG PO; HYDROXYZINE HCL10 MG PO; HYDROXYZINE PAM25 MG PO; IMATINIB MESYL400 MG PO; LAMICTAL25 MG PO; NICOTINE1 EAC1 TD; OXYCODONE HCL5 MG PO; PROCHLORPERAZIN10 MG PO; ZOFRAN8 MG PO
[2021-02-08] MEDS ORDERED: NORTRIPTYLINE H50 MG PO (15:33)
[2021-02-08] MEDS ORDERED: GLEEVEC400 MG PO (15:33)
--- OUTSIDE RECORDS SUMMARY | 2021-02-08 17:00 | XMS ---
PreManage Notification: SHELIA LENZ Security Wheel Grinder Events No recent Security Events currently on file CRITERIA MET - PDMP CARE PROVIDERS Vu Earle Community Health Worker 10/16/2019-Current PHONE: [phone] JAIRO MYERS [facility] Current PHONE: Unknown DONOVAN MELLO Physician Current PHONE: [phone] Corine has no Care Guidelines for this patient. EKathrin. VISIT COUNT (12 MO.) 1 [facility] 2 M[facility] Ramsey TOTAL 3 NOTE: Visits indicate total known visits. ED/UCC VISIT TRACKING (12 MO.) 02/08/2021 14:58 [facility] [place] TYPE: Emergency COMPLAINT: - L UPPER ABD PAIN, NAUSEA 05/14/2020 13:47 [facility] TYPE: Emergency COMPLAINT: - Cutaneous abscess of right axilla DIAGNOSES: 1. Cutaneous abscess of right axilla 03/13/2020 10:06 [facility] [place] TYPE: Emergency COMPLAINT: - L SIDE ABD PAIN, NAUSEA INPATIENT VISIT TRACKING (12 MO.) 03/13/2020 14:05 [facility] [place] TYPE: Medical Surgical COMPLAINT: - PANCREATITIS DIAGNOSES: - Alcohol induced acute pancreatitis without necrosis or infection - Nicotine dependence, unspecified, uncomplicated - Hypomagnesemia - Other specified anxiety disorders - Unspecified atrial fibrillation - Contact with and (suspected) exposure to other viral communicable diseases - Alcohol dependence with withdrawal delirium - Acidosis - Other chronic pain - Chronic myeloid leukemia, BCR/ABL-positive, not having achieved remission - Dorsalgia, unspecified - Opioid dependence, uncomplicated - Alcoholic hepatitis without ascites - Other secondary thrombocytopenia - Hydrops of gallbladder - Acute pancreatitis without necrosis or infection, unspecified [email or web address]
[2021-02-08] MEDS ORDERED: PRILOSEC OTC20 MG PO (19:56)
[2021-02-08] MEDS ORDERED: CHLORDIAZEPOXID25 MG PO (19:56)
== END 2021-02-08 20:25 | disposition home or self-care (01) ==
LOC: ED 14:56
DX: F10.239 Alcohol dependence with withdrawal, unspecified (principal); R10.12 Left upper quadrant pain; Y90.6 Blood alcohol level of 120-199 mg/100 ml; F17.200 Nicotine dependence, unspecified, uncomplicated; Z79.899 Other long term (current) drug therapy
CPT/HCPCS: 80053; 81001; 83690; 83735; 84703; 85025; 96374; 96375; 99284-25; J2060; J2270; J2405; J7030

== ENCOUNTER 2021-02-12 20:47 | Emergency (ER) | payer OTHER ==
[~2021-02-12] VITALS: Ht 172.7 cm; Wt 74.8 kg
[~2021-02-12 20:47] MED LIST changes: +CHLORDIAZEPOXID25 MG PO; +GLEEVEC400 MG PO; +NORTRIPTYLINE H50 MG PO; +PRILOSEC OTC20 MG PO
--- OUTSIDE RECORDS SUMMARY | 2021-02-12 20:50 | XMS ---
PreManage Notification: SHELIA LENZ Security Financial Aid Events No recent Security Events currently on file CRITERIA MET - [facility] - [facility] - 2 Visits in 30 Days CARE PROVIDERS Earle Womack Community Health Worker 10/16/2019-Current PHONE: [phone] [facility] Current PHONE: Unknown DONOVAN MELLO Physician Current PHONE: [phone] Corine has no Care Guidelines for this patient. E.D. VISIT COUNT (12 MO.) 1 [facility]. 3 [facility] TOTAL 4 NOTE: Visits indicate total known visits. ED/UCC VISIT TRACKING (12 MO.) 02/12/2021 20:47 [facility] TYPE: Emergency COMPLAINT: - RT ABDOMINAL PAIN 02/08/2021 14:58 [facility] TYPE: Emergency COMPLAINT: - L UPPER ABD PAIN, NAUSEA DIAGNOSES: - Alcohol dependence with withdrawal, unspecified - Blood alcohol level of 120-199 mg/100 ml - Left upper quadrant pain - Nicotine dependence, unspecified, uncomplicated - Alcohol dependence with withdrawal, unspecified - Left upper quadrant pain - Other senior sales manager (current) drug therapy 05/14/2020 13:47 [facility] TYPE: Emergency COMPLAINT: - Cutaneous abscess of [...] Acute pancreatitis without necrosis or infection, unspecified [email or web address]
[2021-02-12] MEDS ORDERED: REGLAN10 MG PO (22:47)
[2021-02-12] MEDS ORDERED: CHLORDIAZEPOXID25 MG PO (22:47)
== END 2021-02-12 23:50 | disposition home or self-care (01) ==
LOC: ED 20:47
DX: F10.239 Alcohol dependence with withdrawal, unspecified (principal); Y90.0 Blood alcohol level of less than 20 mg/100 ml; R10.12 Left upper quadrant pain; F17.200 Nicotine dependence, unspecified, uncomplicated; Z79.899 Other long term (current) drug therapy
CPT/HCPCS: 80053; 81001; 83690; 84703; 85025; 96365; 96375; 99284-25; J1885; J2405; J2765; J3411; J7030

== ENCOUNTER 2022-05-18 14:15 | Emergency (ER) | payer OTHER ==
[~2022-05-18] VITALS: Ht 172.7 cm; Wt 77.1 kg
[~2022-05-18 14:15] MED LIST changes: +REGLAN10 MG PO
--- OUTSIDE RECORDS SUMMARY | 2022-05-18 14:18 | XMS ---
PreManage Notification: SHELIA LENZ Security Seat Coverer Events 2 event(s) in the past 18 months Most recent security events: Elopement at [facility] 01/25/2022 13:38 Details: PATIENT LWBS Elopement at [facility] 03/08/2021 10:52 - Other Details: PATIENT LWBS. CRITERIA MET - [facility] CARE PROVIDERS Earle Womack Community Health Worker 10/16/2019-Current PHONE: [phone] DONOVAN MELLO Physician Court Recorder Current PHONE: [phone] Corine has no Care Guidelines for this patient. Care History Medical/Surgical 02/17/2021 [facility] - CHW CONTACTED PATIENT-PATIENT STATED SHE FOLLOWED UP WITH HER PRIMARY CARE PHYSICIAN ON 02/16/2021. NO REFERRALS FOR FOLLOW UP WAS REQUESTED AT THAT VISIT - PATIENT HAS A LONG HX OF ALCOHOL USE- SHE WAS AT [id number] AND CONTACTS THEM FOR HELP/TREATMENT SHE REALLY LIKES THEM AND TRUSTS THE HELP SHE RECEIVES FROM THEM. E.D. VISIT COUNT (12 MO.) [address] Natalya Jung 2 MARY Ramsey TOTAL 3 NOTE: Visits indicate total known visits. ED/UCC VISIT TRACKING (12 MO.) 05/18/2022 14:16 MARY Walters [place] TYPE: Emergency COMPLAINT: - MULTIPLE COMPLAINTS 01/25/2022 13:38 MARY Penaloza TYPE: Emergency COMPLAINT: - NAUSEA, SHAKY 01/19/2022 15:21 [facility] DIAGNOSES: - Acute cystitis without hematuria - Seizure (Adult - Prior Hx Of) INPATIENT VISIT TRACKING (12 MO.) No inpatient visits to display in this time frame [id number]
[2022-05-18] MEDS ORDERED: PROTONIX40 MG PO (18:02)
[2022-05-18] MEDS ORDERED: ONDANSETRON ODT4 MG PO (18:02)
[2022-05-18] MEDS ORDERED: CHLORDIAZEPOXID25 MG PO (18:02)
== END 2022-05-18 19:24 | disposition home or self-care (01) ==
LOC: ED 14:15
DX: K29.00 Acute gastritis without bleeding (principal); F10.19 Alcohol abuse with unspecified alcohol-induced disorder; F17.200 Nicotine dependence, unspecified, uncomplicated; Z79.899 Other long term (current) drug therapy
CPT/HCPCS: 36415; 80053; 81001; 83690; 83735; 85025; 96361; 96365; 96375; 96376; 99284-25; A9270; J1885; J2060; J3475; J7030

== ENCOUNTER 2022-11-06 14:03 | Emergency (ER) | payer OTHER ==
[~2022-11-06] VITALS: Ht 172.7 cm; Wt 77.1 kg
[~2022-11-06 14:03] MED LIST changes: +ONDANSETRON ODT4 MG PO; +PROTONIX40 MG PO
--- OUTSIDE RECORDS SUMMARY | 2022-11-06 14:06 | XMS ---
PreManage Notification: SHELIA LENZ Security District Sales Manager Events 1 event(s) in the past 18 months Most recent security events: Elopement at [facility] 01/25/2022 13:38 Details: PATIENT LWBS CRITERIA MET - [facility] Earle Womack Community Health Worker 10/16/2019-Current PHONE: [phone] DONOVAN MELLO Physician Tank Furnace Operator Current PHONE: [phone] Corine has no Care Guidelines for this patient. Care History Medical/Surgical 02/17/2021 [facility] - CHW CONTACTED PATIENT-PATIENT STATED SHE FOLLOWED UP WITH HER PRIMARY CARE PHYSICIAN ON 02/16/2021. NO REFERRALS FOR FOLLOW UP WAS REQUESTED AT THAT VISIT - PATIENT HAS A LONG HX OF ALCOHOL USE- SHE WAS AT [employer] [address] AND CONTACTS THEM FOR HELP/TREATMENT SHE REALLY LIKES THEM AND TRUSTS THE HELP SHE RECEIVES FROM THEM. E.D. VISIT COUNT (12 MO.) 2 [facility] MARY [place] Cindy TOTAL 5 NOTE: Visits indicate total known visits. ED/UCC VISIT TRACKING (12 MO.) 11/06/2022 14:04 MARY Penaloza TYPE: Emergency COMPLAINT: - OD INTENTIONAL 08/10/2022 12:17 [facility] Emergency DIAGNOSES: - Acidosis, unspecified - Cardiac arrest, cause unspecified - Ventricular fibrillation - Hypokalemia - Cardiac Arrest 05/18/2022 14:16 MARY Penaloza TYPE: Emergency COMPLAINT: - MULTIPLE COMPLAINTS DIAGNOSES: - Acute gastritis without bleeding - Other steam clean machine operator (current) drug therapy - Left upper quadrant pain - Nicotine dependence, unspecified, uncomplicated - Alcohol abuse with unspecified alcohol-induced disorder 01/25/2022 13:38 MARY Penaloza TYPE: Emergency COMPLAINT: - NAUSEA, SHAKY 01/19/2022 15:21 [facility] Emergency DIAGNOSES: - Seizure (Adult - Prior Hx Of) - Acute cystitis without hematuria INPATIENT VISIT TRACKING (12 MO.) 08/15/2022 16:40 [facility] ALFREDO TYPE: Electrophysiology DIAGNOSES: - Ventricular fibrillation - Cardiac arrest, cause unspecified 08/10/2022 12:17 [facility] FUENTES TYPE: Surgical Services DIAGNOSES: - Ventricular fibrillation - Hypokalemia - Cardiac arrest, cause unspecified - Acidosis, unspecified [id number]
[2022-11-06] MEDS ORDERED: LORAZEPAM0.5 MG PO (15:28)
[2022-11-06] MEDS ORDERED: ESCITALOPRAM OX10 MG PO (15:28)
[2022-11-06] MEDS ORDERED: SPIRONOLACTONE25 MG PO (15:28)
== END 2022-11-07 00:22 | disposition home or self-care (01) ==
LOC: ED 14:03
DX: T42.4X2A Poisoning by benzodiazepines, intentional self-harm, initial encounter (principal); T40.2X2A Poisoning by other opioids, intentional self-harm, initial encounter; F17.200 Nicotine dependence, unspecified, uncomplicated; Z79.899 Other long term (current) drug therapy
CPT/HCPCS: 36415; 80053; 84703; 85025; 96374; 96376; 99285-25; G0480; J7030

== ENCOUNTER 2022-12-14 05:09 | Emergency (ER) | payer OTHER ==
[~2022-12-14] VITALS: Ht 172.7 cm; Wt 78.5 kg
[~2022-12-14 05:09] MED LIST changes: +ESCITALOPRAM OX10 MG PO; +LORAZEPAM0.5 MG PO; +SPIRONOLACTONE25 MG PO
--- OUTSIDE RECORDS SUMMARY | 2022-12-14 05:14 | XMS ---
PreManage Notification: SHELIA LENZ Security Cellophane Press Operator Events 1 event(s) in the past 18 months Most recent security events: Elopement at [facility] 01/25/2022 13:38 Details: PATIENT LWBS [facility] Earle Womack Community Health Worker 10/16/2019-Current PHONE: [phone] DONOVAN MELLO Physician Civil Engineering Professional Current PHONE: [phone] Corine has no Care Guidelines for this patient. Care History Medical/Surgical 02/17/2021 [facility] - CHW CONTACTED PATIENT-PATIENT STATED SHE FOLLOWED UP WITH HER PRIMARY CARE PHYSICIAN ON 02/16/2021. NO REFERRALS FOR FOLLOW UP WAS REQUESTED AT THAT VISIT - PATIENT HAS A LONG HX OF ALCOHOL USE- SHE WAS AT [employer] [address] AND CONTACTS THEM FOR HELP/TREATMENT SHE REALLY LIKES THEM AND TRUSTS THE HELP SHE RECEIVES FROM THEM. E.D. VISIT COUNT (12 MO.) 2 [facility] 4 MARY Ramsey TOTAL 6 NOTE: Visits indicate total known visits. ED/UCC VISIT TRACKING (12 MO.) 12/14/2022 05:09 M[facility] [place]ters [place] TYPE: Emergency COMPLAINT: - SEIZURE 11/06/2022 14:04 MARY [place]ters [place] TYPE: Emergency COMPLAINT: - OD INTENTIONAL DIAGNOSES: - Nicotine dependence, unspecified, uncomplicated - Other adjunct faculty for medical terminology (current) drug therapy - Poisoning by other opioids, intentional self-harm, initial encounter - Poisoning by benzodiazepines, intentional self-harm, initial encounter 08/10/2022 [facility] DIAGNOSES: - Ventricular fibrillation - Hypokalemia - Cardiac Arrest - Acidosis, unspecified - Cardiac arrest, cause unspecified 05/18/2022 14:16 MARY Penaloza TYPE: Emergency COMPLAINT: - MULTIPLE COMPLAINTS DIAGNOSES: - Left upper quadrant pain - Nicotine dependence, unspecified, uncomplicated - Alcohol abuse with unspecified alcohol-induced disorder - Acute gastritis without bleeding - Other adjunct faculty for medical terminology (current) drug therapy 01/25/2022 13:38 MARY Penaloza TYPE: Emergency COMPLAINT: - NAUSEA, SHAKY 01/19/2022 15:21 [facility] FUENTES TYPE: Emergency DIAGNOSES: - Acute cystitis without hematuria - Seizure (Adult - Prior Hx Of) INPATIENT VISIT TRACKING (12 MO.) 08/15/2022 [facility]40 [facility] TYPE: Electrophysiology DIAGNOSES: - Cardiac arrest, cause unspecified - Ventricular fibrillation 08/10/2022 [facility] DIAGNOSES: - Cardiac arrest, cause unspecified - Acidosis, unspecified - Ventricular fibrillation - Hypokalemia [id number]
[2022-12-14] MEDS ORDERED: PROCHLORPERAZIN10 MG PO (10:47)
[2022-12-14] MEDS ORDERED: METOPROLOL SUCC50 MG PO (10:47)
== END 2022-12-15 10:35 | disposition home or self-care (01) ==
LOC: ED 05:09
DX: R45.851 Suicidal ideations (principal); F10.129 Alcohol abuse with intoxication, unspecified; G40.909 Epilepsy, unspecified, not intractable, without status epilepticus; F17.200 Nicotine dependence, unspecified, uncomplicated; Z79.899 Other long term (current) drug therapy; Z20.822 Contact with and (suspected) exposure to COVID-19; Y90.8 Blood alcohol level of 240 mg/100 ml or more
CPT/HCPCS: 36415; 73130; 80053; 81003; 84443; 84703; 85025; 99285-25; A9270; G0480; U0003

== ENCOUNTER 2023-01-18 19:47 | Emergency (ER) | payer OTHER ==
[~2023-01-18] VITALS: Ht 170.2 cm; Wt 78.5 kg
[~2023-01-18 19:47] MED LIST changes: +METOPROLOL SUCC50 MG PO
--- OUTSIDE RECORDS SUMMARY | 2023-01-18 21:03 | XMS ---
PreManage Notification: SHELIA LENZ Security Travel Registered Nurse Oncology Events 1 event(s) in the past 18 months Most recent security events: Elopement at [facility] 01/25/2022 13:38 Details: PATIENT LWBS CRITERIA MET - [facility] CARE PROVIDERS Earle Womack Community Health Worker 10/16/2019-Current PHONE: [phone] MILADIS HICKS [facility] Current PHONE: Unknown DONOVAN MELLO Physician Materials Planning Analyst Current PHONE: [phone] Corine has no Care Guidelines for this patient. Care History Medical/Surgical 02/17/2021 [facility] - W CONTACTED PATIENT-PATIENT STATED SHE FOLLOWED UP WITH HER PRIMARY CARE PHYSICIAN ON 02/16/2021. NO REFERRALS FOR FOLLOW UP WAS REQUESTED AT THAT VISIT - PATIENT HAS A LONG HX OF ALCOHOL USE- SHE WAS AT [address] AND CONTACTS THEM FOR HELP/TREATMENT SHE REALLY LIKES THEM AND TRUSTS THE HELP SHE RECEIVES FROM THEM. Reji V[facility] (12 MO.) [facility] TOTAL 7 NOTE: Visits indicate total known visits. ED/UCC VISIT TRACKING (12 MO.) 01/18/2023 19:47 MARY [place]ters [place] TYPE: Emergency COMPLAINT: - INTOXICATION 12/14/2022 05:09 MARY [place]ters [place] TYPE: Emergency COMPLAINT: - SEIZURE DIAGNOSES: - Alcohol abuse with intoxication, unspecified - Epilepsy, unspecified, not intractable, without status epilepticus - Contact with and (suspected) exposure to COVID-19 - Unspecified convulsions - Blood alcohol level of 240 mg/100 ml or more - Other terminal clerk (current) drug therapy - Nicotine dependence, unspecified, uncomplicated - Suicidal ideations 11/06/2022 14:04 MARY Penaloza TYPE: Emergency COMPLAINT: - OD INTENTIONAL DIAGNOSES: - Poisoning by other opioids, intentional self-harm, initial encounter - Poisoning by benzodiazepines, intentional self-harm, initial encounter - Nicotine dependence, unspecified, uncomplicated - Other terminal clerk (current) drug therapy 08/10/2022 12:17 [facility] Natalya FUENTES TYPE: Emergency DIAGNOSES: - Acidosis, unspecified - Cardiac arrest, cause unspecified - Ventricular fibrillation - Hypokalemia - Cardiac Arrest 05/18/2022 14:16 MARY Penaloza TYPE: Emergency COMPLAINT: - MULTIPLE COMPLAINTS DIAGNOSES: - Acute gastritis without bleeding - Other fpc (current) drug therapy - Left upper quadrant pain - Nicotine dependence, unspecified, uncomplicated - Alcohol abuse with unspecified alcohol-induced disorder 01/25/2022 13:38 MARY Penaloza TYPE: Emergency COMPLAINT: - NAUSEA, SHAKY 01/19/2022 15:21 [facility] Natalya FUENTES TYPE: Emergency DIAGNOSES: - Seizure (Adult - Prior Hx Of) - Acute cystitis without hematuria INPATIENT VISIT TRACKING (12 MO.) 08/15/2022 16:40 [facility] TYPE: Electrophysiology DIAGNOSES: - Ventricular fibrillation - Cardiac arrest, cause unspecified 08/10/2022 12:17 [facility] Services DIAGNOSES: - Ventricular fibrillation - Hypokalemia - Cardiac arrest, cause unspecified - Acidosis, unspecified [email or web address]
[2023-01-19] MEDS ORDERED: CHLORDIAZEPOXID25 MG PO (05:44)
== END 2023-01-19 06:03 | disposition home or self-care (01) ==
LOC: ED 19:47
DX: F10.129 Alcohol abuse with intoxication, unspecified (principal); Y90.8 Blood alcohol level of 240 mg/100 ml or more; F17.200 Nicotine dependence, unspecified, uncomplicated; Z79.899 Other long term (current) drug therapy
CPT/HCPCS: 36415; 80053; 81003; 84443; 84703; 85025; 96365; 96366; 96375; 96376; 99284-25; G0480; J2060; J2405; J3411; J7030; J7121

== ENCOUNTER 2023-01-24 13:09 | Emergency (ER) | payer OTHER ==
[~2023-01-24] VITALS: Ht 170.2 cm; Wt 78.5 kg
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
== END 2023-01-24 16:19 | disposition home or self-care (01) ==
LOC: ED 13:09
DX: R41.0 Disorientation, unspecified (principal); F19.10 Other psychoactive substance abuse, uncomplicated; F17.200 Nicotine dependence, unspecified, uncomplicated; Z79.899 Other long term (current) drug therapy
CPT/HCPCS: 36415; 70450; 80053; 81003; 83735; 84703; 85025; 85610; 85730; 96365; 96366; 99285-25; G0480; J3411; J7121

== ENCOUNTER 2024-12-03 16:10 | Emergency (ER) | payer OTHER ==
[~2024-12-03] VITALS: Ht 170.2 cm; Wt 92.1 kg
[2024-12-03] MEDS ORDERED: IMATINIB MESYL400 MG PO (16:29)
[2024-12-03] MEDS ORDERED: MAGNESIUM400 M1 PO (16:29)
[2024-12-03] MEDS ORDERED: K-TAB ER20 MEQ PO (16:29)
[2024-12-03] MEDS ORDERED: SEROQUEL XR200 MG PO (16:30)
[2024-12-03] MEDS ORDERED: CLEOCIN HCL300 MG PO (17:25)
[2024-12-03] MEDS ORDERED: IBU800 MG PO (17:25)
[2024-12-03] MEDS ORDERED: clindamycin HCL 300 MG CAP PO ONE (17:30)
[2024-12-03 17:35] VITALS: BP 125/81
== END 2024-12-03 17:35 | disposition home or self-care (01) ==
LOC: ED 16:10
DX: K04.7 Periapical abscess without sinus (principal); F17.200 Nicotine dependence, unspecified, uncomplicated; Z79.899 Other long term (current) drug therapy
CPT/HCPCS: 99282

== ENCOUNTER 2025-04-30 18:51 | Emergency (ER) | payer OTHER ==
[~2025-04-30] VITALS: Ht 170.2 cm; Wt 92.1 kg
[~2025-04-30 18:51] MED LIST changes: +CLEOCIN HCL300 MG PO; +IBU800 MG PO; +K-TAB ER20 MEQ PO; +MAGNESIUM400 M1 PO; +SEROQUEL XR200 MG PO
[2025-04-30] MEDS ORDERED: LORazepam 1 MG TAB PO ONE (20:00)
[2025-04-30 20:07] LABS: BASOPHILS 0.4 % (0.1-1.2); EOSINOPHILS 2.8 % (0.7-5.8); HEMATOCRIT 40.3 % (34.1-44.9); HEMOGLOBIN 13.5 g/dL (11.2-15.7); LYMPHOCYTES 29.9 % (19.3-51.7); MCH 31.8 PG (25.6-32.2); MCHC 33.5 g/dL (32.2-35.5); MONOCYTES 6.3 % (4.7-12.5); NEUTROPHILS 60.3 % (34.0-71.1); PLATELET COUNT 167 K/uL (182-369); RBC 4.24 M/uL (3.93-5.22)
[2025-04-30 20:24] VITALS: BP 161/107
[2025-04-30 20:41] LABS: ANION GAP 15.8 (7-21); BILIRUBIN, TOTAL 0.4 mg/dL (0.2-1.0); POTASSIUM 3.8 mmol/L (3.5-5.1); PROTEIN, TOTAL 6.4 g/dL (6.4-8.2)
[2025-04-30 20:45] LABS: ALBUMIN/GLOBULIN RATIO 0.88 (1.1-2.4); BUN/CREATININE RATIO 15.11 (6.0-28.6); CALCIUM 8.9 mg/dL (8.5-10.1); CREATININE, SERUM 0.86 mg/dL (0.55-1.02)
== END 2025-04-30 20:25 | disposition other institution, planned readmission (95) ==
LOC: ED 18:51
PROVIDERS: Family Medicine
DX: F15.10 Other stimulant abuse, uncomplicated (principal); F17.200 Nicotine dependence, unspecified, uncomplicated; Z79.899 Other long term (current) drug therapy; Z53.29 Procedure and treatment not carried out because of patient's decision for other reasons
CPT/HCPCS: 36415; 80053; 85025; 99282; A9270-GY

== ENCOUNTER 2025-07-03 00:21 | Emergency (ER) | payer OTHER ==
[~2025-07-03] VITALS: Ht 170.2 cm; Wt 83.0 kg
[2025-07-03] MEDS ORDERED: PROCHLORPERAZINE EDISYLATE 10 MG/2 ML VIAL IV ONE (00:30)
[2025-07-03] MEDS ORDERED: ASPIRIN 81 MG CHEW PO ONE (00:30)
[2025-07-03] MEDS ORDERED: SODIUM CHLORIDE 0.9% 1,000 ML IV ONE (00:30)
[2025-07-03 00:42] LABS: BASOPHILS 0.8 % (0.1-1.2); EOSINOPHILS 0.3 % (0.7-5.8); LYMPHOCYTES 30.6 % (19.3-51.7); MCH 34.4 PG (25.6-32.2); MCHC 35.3 g/dL (32.2-35.5); MCV 97.4 fL (79.4-94.8); MONOCYTES 6.9 % (4.7-12.5); NEUTROPHILS 61.1 % (34.0-71.1); RBC 4.30 M/uL (3.93-5.22)
[2025-07-03 01:21] LABS: ALT (SGPT) 90.0 U/L (14-59); AST (SGOT) 81.0 U/L (15-37); GLOMERULAR FILTRATION RATE,EST 92.0 mL/min (>60); PROTEIN, TOTAL 6.7 g/dL (6.4-8.2); UREA NITROGEN 12.0 mg/dL (7-18)
[2025-07-03] MEDS ORDERED: POTASSIUM CHLORIDE 10 MEQ TABCR PO ONE (01:30)
[2025-07-03] MEDS ORDERED: MAGNESIUM400 M1 PO (01:37)
[2025-07-03] MEDS ORDERED: POTASSIUM CHLO20 ME2 PO (01:37)
[2025-07-03] MEDS ORDERED: POTASSIUM CHLORIDE 10 MEQ TABCR ONE (01:38)
[2025-07-03] MEDS ORDERED: ONDANSETRON 4 MG HOME.PACK SL ONE (01:45)
[2025-07-03 01:53] VITALS: BP 134/100
--- NOTE | 2025-07-03 18:26 | EKG ---
[facility] [address] [facility] [place], [place] [address] Signed Sinus tachycardia with 1st degree AV block Nonspecific ST abnormality Abnormal ECG No previous ECGs available Confirmed by Kiana Fry DO ([id number]) on 07/03/2025 6:26:40 PM Electronically Signed By: KIANA FRY DO 07/03/25 1826 PATIENT NAME: SHELIA LENZOSE Electrocardiogram DATE OF : 89 PHYSICIAN: KIANA FRY DO REPORT #: [id number] REPORT IS CONFIDENTIAL AND NOT TO BE RELEASED WITHOUT AUTHORIZATION
== END 2025-07-03 01:55 | disposition home or self-care (01) ==
LOC: ED 00:21
PROVIDERS: Family Medicine
DX: R07.89 Other chest pain (principal); E87.6 Hypokalemia; F17.200 Nicotine dependence, unspecified, uncomplicated; Z95.0 Presence of cardiac pacemaker
CPT/HCPCS: 36415; 71045; 80053; 83735; 84484; 85025; 93005; 93010; 96361; 96374; 99285-25; A9270; J0780; J7030

== ENCOUNTER 2025-09-24 13:11 | Emergency (ER) | payer OTHER ==
[~2025-09-24] VITALS: Ht 170.2 cm; Wt 79.9 kg
[~2025-09-24 13:11] MED LIST changes: +POTASSIUM CHLO20 ME2 PO
[2025-09-24 14:25] LABS: BASOPHILS 1.1 % (0.1-1.2); EOSINOPHILS 0.8 % (0.7-5.8); LYMPHOCYTES 22.8 % (19.3-51.7); MCH 35.6 PG (25.6-32.2); MCHC 36.3 g/dL (32.2-35.5); MCV 98.3 fL (79.4-94.8); MONOCYTES 7.7 % (4.7-12.5); NEUTROPHILS 67.1 % (34.0-71.1); RBC 4.18 M/uL (3.93-5.22)
[2025-09-24] MEDS ORDERED: LORazepam 2 MG/ML VIAL IV/IM PRN (14:30)
[2025-09-24] MEDS ORDERED: SODIUM CHLORIDE 0.9% 1,000 ML IV PRN (14:30)
[2025-09-24 14:47] LABS: ALCOHOL, MEDICAL > 300 ng/dL (<3); ALT (SGPT) 227 U/L (14-59); AST (SGOT) 300 U/L (15-37); GLOMERULAR FILTRATION RATE,EST 116 mL/min (>60); PROTEIN, TOTAL 6.5 g/dL (6.4-8.2); TSH, 3RD GENERATION 1.340 uIU/mL (0.358-3.740); UREA NITROGEN 9 mg/dL (7-18)
[2025-09-24] MEDS ORDERED: THIAMINE HCL 100 MG TAB PO ONE (15:15)
[2025-09-24] MEDS ORDERED: FOLIC ACID 1 MG TAB PO ONE (15:15)
[2025-09-24] MEDS ORDERED: POTASSIUM CHLORIDE 10 MEQ/100 ML BAG IV SCH ×2 (16:30→19:15)
[2025-09-24] MEDS ORDERED: POTASSIUM CHLORIDE 10 MEQ TABCR PO ONE (16:30)
[2025-09-24] MEDS ORDERED: MAGNESIUM SULFATE 2 GM/50 ML BAG IV ONE (16:30)
[2025-09-24 17:57] LABS: BLOOD/HGB, URINE SMALL (Negative); KETONE, URINE NEGATIVE (Negative); LEUK ESTERASE, URINE NEGATIVE (negative); NITRITE, URINE NEGATIVE (negative)
[2025-09-24 18:06] LABS: EPITHELIAL CELLS, URINE SQUAMOUS 3+ /lpf (0-1+)
[2025-09-24 18:07] LABS: BACTERIA, URINE RARE /hpf (negative); CASTS, URINE NONE SEEN \\lpf; CRYSTALS, URINE NONE SEEN (0-1+); REFLEX CULTURE, URINE No (No)
[2025-09-24 18:25] LABS: AMPHETAMINES, URINE NEGATIVE (NEGATIVE); BARBITURATES, URINE NEGATIVE (NEGATIVE); BENZODIAZEPINE, URINE NEGATIVE (NEGATIVE); CANNABINOID, URINE POSITIVE (NEGATIVE); COCAINE, URINE NEGATIVE (NEGATIVE); ECSTASY, URINE NEGATIVE (NEGATIVE); FENTANYL, URINE NEGATIVE (NEGATIVE); METHADONE, URINE NEGATIVE (NEGATIVE); OPIATES, URINE NEGATIVE (NEGATIVE); OXYCODONE, URINE NEGATIVE (NEGATIVE); PHENCYCLIDINE, URINE NEGATIVE (NEGATIVE)
[2025-09-24] MEDS ORDERED: NICOTINE POLACRILEX 4 MG LOZENGE BUCCAL PRN (19:45)
[2025-09-24] MEDS ORDERED: METOPROLOL TARTRATE 5 MG/5 ML VIAL IV ONE (20:15)
[2025-09-24 23:55] VITALS: BP 141/119
[2025-09-25] MEDS ORDERED: MULTIVITAMINS THERAPEUTIC 1 EA TAB PO SCH (08:00)
--- NOTE | 2025-09-25 17:30 | EKG ---
[facility] [address] [facility] [place] [address] Signed Supraventricular tachycardia with occasional premature ventricular complexes Otherwise normal ECG When compared with ECG of 03-JUL-2025 00:23, premature ventricular complexes are now present SD interval has decreased Confirmed by Vasquez Basilio MD () on 09/25/2025 5:30:41 PM Electronically Signed By: VASQUEZ BASILIO MD 09/25/25 1730 PATIENT NAME: LENZSHELIAMARIANA BOGGS Electrocardiogram DATE OF : 89 PHYSICIAN: VASQUEZ BASILIO MD REPORT #: [id number] REPORT IS CONFIDENTIAL AND NOT TO BE RELEASED WITHOUT AUTHORIZATION
[2025-09-26] MEDS ORDERED: THIAMINE HCL 100 MG TAB PO SCH (08:00)
[2025-09-26] MEDS ORDERED: FOLIC ACID 1 MG TAB PO SCH (08:00)
[2025-09-26] MEDS ORDERED: FOLIC ACID 1 MG TAB PO ONE (15:15)
[2025-09-26] MEDS ORDERED: THIAMINE HCL 100 MG TAB PO ONE (15:15)
== END 2025-09-25 | disposition home or self-care (01) ==
LOC: ED 13:11
PROVIDERS: Emergency Medicine
DX: R45.851 Suicidal ideations (principal); F10.129 Alcohol abuse with intoxication, unspecified; I47.10 Supraventricular tachycardia, unspecified; F17.200 Nicotine dependence, unspecified, uncomplicated; Z79.899 Other long term (current) drug therapy
CPT/HCPCS: 36415; 80053; 80307; 81001; 83735; 84443; 84484; 84703; 85025; 93005; 93010; 96365; 96366; 96367; 96375; 96376; 99285-25; A9270; G0480; J2060; J2405; J3475; J3480; J7030

== ENCOUNTER 2025-09-29 10:02 | Inpatient (IN) | payer OTHER ==
[~2025-09-29] VITALS: Ht 170.2 cm; Wt 83.2 kg
[2025-09-29] VITALS (12 sets, daily range): BP systolic 130–144; BP diastolic 97–113
[2025-09-29] MEDS ORDERED: LORazepam 2 MG/ML VIAL IV ONE ×2 (10:30→12:45)
[2025-09-29] MEDS ORDERED: PHENOBARBITAL SOD 130 MG/ML VIAL IV ONE ×2 (10:30→12:45)
[2025-09-29] MEDS ORDERED: SODIUM CHLORIDE 0.9% 1,000 ML IV ONE (10:30)
[2025-09-29] MEDS ORDERED: HYDROmorphone HCL 1 MG/ML SYR IV PRN ×2 (10:30→13:00)
[2025-09-29 10:39] LABS: BASOPHILS 1.2 % (0.1-1.2); EOSINOPHILS 1.2 % (0.7-5.8); LYMPHOCYTES 19.5 % (19.3-51.7); MCH 37.0 PG (25.6-32.2); MCHC 36.7 g/dL (32.2-35.5); MCV 100.8 fL (79.4-94.8); MONOCYTES 9.2 % (4.7-12.5); NEUTROPHILS 68.1 % (34.0-71.1); RBC 3.76 M/uL (3.93-5.22)
[2025-09-29 10:59] LABS: ALT (SGPT) 177 U/L (14-59); AST (SGOT) 288 U/L (15-37); GLOMERULAR FILTRATION RATE,EST 115 mL/min (>60); PROTEIN, TOTAL 6.4 g/dL (6.4-8.2); UREA NITROGEN 9 mg/dL (7-18)
[2025-09-29] MEDS ORDERED: POTASSIUM CHLORIDE 20 MEQ/15 ML CUP PO ONE (11:15)
[2025-09-29] MEDS ORDERED: POTASSIUM CHLORIDE 10 MEQ/100 ML BAG IV SCH (11:15)
[2025-09-29 11:18] LABS: BLOOD/HGB, URINE SMALL (Negative); KETONE, URINE TRACE (Negative); LEUK ESTERASE, URINE NEGATIVE (negative); NITRITE, URINE NEGATIVE (negative)
[2025-09-29 11:30] LABS: BACTERIA, URINE RARE /hpf (negative); CASTS, URINE NONE SEEN \\lpf; CRYSTALS, URINE NONE SEEN (0-1+); EPITHELIAL CELLS, URINE SQUAMOUS 2+ /lpf (0-1+); REFLEX CULTURE, URINE No (No)
[2025-09-29] MEDS ORDERED: SODIUM CHLORIDE 0.9% 1,000 ML IV PRN (11:30)
[2025-09-29] MEDS ORDERED: POTASSIUM CHLORIDE 20 MEQ,LIDOCAINE HCL 1% 20 MG in DEXTROSE 5% 250 ML IV ONE (11:30)
[2025-09-29] MEDS ORDERED: KETOROLAC TROMETHAMINE 15 MG/ML VIAL IV ONE (11:45)
[2025-09-29] MEDS ORDERED: LACTATED RINGER'S 1,000 ML IV SCH (12:45)
[2025-09-29] MEDS ORDERED: ACETAMINOPHEN 500 MG TAB PO PRN (12:45)
[2025-09-29] MEDS ORDERED: PANTOPRAZOLE SODIUM 40 MG/10 ML VIAL IV SCH (12:48)
[2025-09-29 12:49] LABS: INR 1.11 (0.80-1.30); PROTIME 13.9 Sec (11.2-14.2)
[2025-09-29] MEDS ORDERED: THIAMINE HCL 200 MG/2 ML VIAL IV SCH (12:50)
[2025-09-29] MEDS ORDERED: FOLIC ACID 1 MG/0.2 ML ML IV SCH (12:50)
[2025-09-29] MEDS ORDERED: LORazepam 2 MG/ML VIAL IV/IM PRN (13:00)
[2025-09-29] MEDS ORDERED: KETOROLAC TROMETHAMINE 15 MG/ML VIAL IV PRN (13:00)
[2025-09-29] MEDS ORDERED: SODIUM CHLORIDE 0.9% 1,000 ML IV SCH (13:00)
[2025-09-29] MEDS ORDERED: NICOTINE 21 MG/24 HR 1 EA TDSY TD SCH (14:09)
--- NOTE | 2025-09-29 14:34 | NUR ---
PATIENT IN BED. SCHEDULED MEDICATION ADMINISTERED PER EMAR. CALL LIGHT AND PERSONAL BELONGINGS IN REACH, PATIENT DENIES CONCERNS.
[2025-09-29] MEDS ORDERED: POTASSIUM CHLO20 ME2 PO (14:56)
[2025-09-29] MEDS ORDERED: MAGNESIUM OXID400 M1 PO (14:56)
[2025-09-29] MEDS ORDERED: MAGNESIUM SULFATE 2 GM/50 ML BAG IV SCH (15:30)
--- NOTE | 2025-09-29 15:45 | NUR ---
PATIENT IN BED. SCHEDULED INFUSION STARTED PER EMAR ORDER, INFUSING WNL. PATIENT DENIES CONCERNS. PATIENT IN BED, CALL LIGHT AND PERSONAL BELONGINGS IN REACH.
--- NOTE | 2025-09-29 16:27 | NUR ---
PT UP TO THE BS COMMODE AT THIS TIME, VOIDED AND BACK TO BED. HAD SOME SHACKING IN HER ARMS AND UNSTEADY ON HER FEET. 2MG ATIVAN IVP GIVEN AT THIS TIME. SIDE RAILS WITH SEZIURE PADS INPLACE AND BED ALARM IS ON. CALL LIGHT WITHIN REACH.
--- NOTE | 2025-09-29 17:32 | NUR ---
PT APPEARS TO BE RESTING COMFORTABLE AT THIS TIME, BUT AT TIMES IS RESTLESS IN BED. SIDE RAILS X 4 AND BED ALARM REMAIN UP AND ON. CALL LIGHT WITHIN REACH.
--- NOTE | 2025-09-29 18:40 | NUR ---
PT APPEARS ASLEEP IN BED, BUT IS TWICHING AT TIMES.
--- NOTE | 2025-09-29 19:40 | NUR ---
ROUNDING ON PATIENT, SHE IS ALERT CIWA 14, SHE HAS NAUSEA, HEADACHE, SEVERE TREMORS AT ARMS/HANDS, RESTLESS, AND REPORTS ABD PAIN 8/10. PRN ADMINISTERED TO TREAT ALL SYMPTOMS SEE EMAR. ASSESSMENT COMPLETE, PATIENT IS COOPERATIVE WITH CARES, BED ALARM ON, CALL LIGHT IN REACH.
--- NOTE | 2025-09-29 19:56 | NUR ---
PATIENT NOW NOTED TO BE SNORING, RESTING MORE RELAXED IN BED, ALERT TO RN ACTIVITY AT BEDSIDE.
[2025-09-29] MEDS ORDERED: MELATONIN 3 MG TAB PO PRN (21:00)
--- NOTE | 2025-09-29 21:21 | NUR ---
PATIENT RESTING QUIELTY IN BED, EYES CLOSED RESPIRATION RATE 25/MIN, RELAXED POSITION, NO DISTRESS NOTED AT THIS TIME.
--- NOTE | 2025-09-29 22:35 | NUR ---
CIWA 9, 2MG IV ATIVAN PRN ADMINISTERED PER ORDERS FOR CIWA GREATER THAN 8. PATIENT COOPERATIVE WITH CARE. PATIENT ALSO REPORTS PAIN ABD, LOW BACK 7/10, IV DILAUDID PRN ADMINISTERED.
[2025-09-30] VITALS (21 sets, daily range): BP systolic 12–145; BP diastolic 100–118
--- NOTE | 2025-09-30 00:26 | NUR ---
PATIENT UP TO BEDSIDE COMMODE, VOIDED 950ML YELLOW URINE, TWO PERSON ASSIST DUE TO PATIENT SEVERE TREMORS, PATIENT ABLE TO TRANSFER SELF AND THEN BACK TO BED, CIWA 12, 2MG IV ATIVAN ADMINISTERED, PATIENT REPORTS PAIN 7/10 ABD AND BACK PAIN, TORDOL PRN ADMINISTERED.
[2025-09-30] MEDS ORDERED: LORazepam 2 MG/ML VIAL IV/IM PRN (01:15)
[2025-09-30] MEDS ORDERED: PROCHLORPERAZINE EDISYLATE 10 MG/2 ML VIAL IV PRN (01:15)
[2025-09-30 01:37] LABS: AMPHETAMINES, URINE POSITIVE (NEGATIVE); BARBITURATES, URINE NEGATIVE (NEGATIVE); BENZODIAZEPINE, URINE NEGATIVE (NEGATIVE); CANNABINOID, URINE POSITIVE (NEGATIVE); COCAINE, URINE NEGATIVE (NEGATIVE); ECSTASY, URINE NEGATIVE (NEGATIVE); FENTANYL, URINE NEGATIVE (NEGATIVE); METHADONE, URINE NEGATIVE (NEGATIVE); OPIATES, URINE POSITIVE (NEGATIVE); OXYCODONE, URINE NEGATIVE (NEGATIVE); PHENCYCLIDINE, URINE NEGATIVE (NEGATIVE)
--- NOTE | 2025-09-30 05:00 | NUR ---
PATIENT IS RESTING QUIELTY IN BED, EYES CLOSED RESPIRATION RATE 16/MIN, RELAXED POSITION IN BED.
[2025-09-30 05:18] LABS: BASOPHILS 0.7 % (0.1-1.2); EOSINOPHILS 1.6 % (0.7-5.8); LYMPHOCYTES 28.8 % (19.3-51.7); MCH 36.6 PG (25.6-32.2); MCHC 35.8 g/dL (32.2-35.5); MCV 102.3 fL (79.4-94.8); MONOCYTES 6.5 % (4.7-12.5); NEUTROPHILS 61.7 % (34.0-71.1); RBC 3.44 M/uL (3.93-5.22)
[2025-09-30 05:33] LABS: ALT (SGPT) 132.0 U/L (14-59); AST (SGOT) 194.0 U/L (15-37); GLOMERULAR FILTRATION RATE,EST 123.0 mL/min (>60); PHOSPHORUS, INORGANIC 2.1 mg/dL (2.5-4.9); PROTEIN, TOTAL 5.6 g/dL (6.4-8.2); UREA NITROGEN 6.0 mg/dL (7-18)
[2025-09-30 05:50] LABS: SMEAR REVIEW BLOOD SEE COMMENTS
--- NOTE | 2025-09-30 05:59 | NUR ---
PATIENT MOUTH SNORING, DESATURATION TO 87%, N.C. SWITCHED TO OXYMASK. NOW 97% ON OXYMASK 2L. PATIENT REPORTS PAIN 8/10 AT HER BACK AND ABD. CIWA 8. TORDOL AND ATIVAN PRN ADMINISTERED.
--- NOTE | 2025-09-30 06:54 | NUR ---
CALLED TO REPORT PLATLETS 49 CRITICAL VALUE. NO NEW ORDERS, REPORTED LABS NEW ORDER FOR K-PHOS 30MMOL. ORDER PLACED.
[2025-09-30] MEDS ORDERED: POTASSIUM PHOSPHATE 30 MMOL in DEXTROSE 5% 500 ML IV ONE (07:00)
--- NOTE | 2025-09-30 07:10 | NUR ---
HANDOFF REPORT RECEIVED FROM FIELD ARTILLERY FIRE CONTROL MAN RN. ALL QUESTIONS ANSWERED. PATIENT RESTING IN BED. NO EVIDENCE OF ACUTE DISTRESS NOTED. CALL LIGHT IN REACH. BED ALARM ON.
[2025-09-30] MEDS ORDERED: MULTIVITAMINS THERAPEUTIC 1 EA TAB PO SCH (08:00)
--- NOTE | 2025-09-30 08:37 | NUR ---
PATIENT ASSESSMENT COMPLETE. PATIENT DROWSY BUT AROUSABLE TO VERBAL AND TACTILE STIMULI. PATIENT ORIENTED. PATIENT STATES PAIN IN THE ABDOMEN. PATIENT HAS VISUAL HAND TREMORS. PATIENT STATES SHE HAS "HEARD THINGS SINCE YESTERDAY". PATIENT QUICKLY DRIFTS BACK TO SLEEP WHILE THIS RN REMAINS IN ROOM. PATIENT AROUSABLE AND DENIES RESTROOM NEEDS AT THIS TIME. VITAL SIGNS STABLE. IV SITES INTACT. IVF INFUSING PER EMAR. MEDICATIONS ADMINISTERED PER EMAR. PATIENT REPORTS NAUSEA AT THIS TIME. PATIENT NOW BACK TO RESTING IN BED W/ EYES CLOSED. NO EVIDENCE OF ACUTE DISTRESS NOTED. BED ALARM ON. CALL LIGHT IN REACH.
--- NOTE | 2025-09-30 09:27 | NUR ---
PATIENT CONTINUES TO REST IN BED W/ EYES CLOSED. PATIENT AROUSABLE TO VERBAL AND TACTILE STIMULI. IVF INFUSING PER EMAR. NO EVIDENCE OF ACUTE DISTRESS NOTED. CALL LIGHT IN REACH. BED ALARM ON.
--- NOTE | 2025-09-30 10:41 | NUR ---
ALERT AND ORIENTED IN BED. STATES SHE LIVES IN A HOUSE. HAS NO [employer]. SHE DOES NOT DRIVE BUT HER MOTHER PROVIDES TRANSPORT FOR HER APPOINTMENTS. SHE HAS NO CM NEEDS AT THIS TIME. STATES SHE IS NOT INTERESTED IN ANY PEER GROUPS OR TREATMENT FOR SUBSTANCES AND ALCOHOL. STATES SHE LIKES TO ATTEND NA AND AA MEETINGS AND SOMETIMES ATTENDS ONLINE OR THROUGH AN [employer]. PLANS TO DC TO HOME WHEN MEDICALLY READY.
--- NOTE | 2025-09-30 10:47 | NUR ---
PATIENT REPORTS 8/10 ABD AND BACK PAIN WELL FEELING NASUEATED. PRN ZOFRAN AND PRN PAIN MEDICATION ADMINISTERED PER EMAR. PATIENT ALERT AND ORIENTED. PATIENT PERFORMING AM AND ORAL CARE. NO FURTHER NEEDS IDENTIFIED. CALL LIGHT IN REACH. BED ALARM ON
--- NOTE | 2025-09-30 10:51 | NUR ---
UR CLINICAL REVIEW: MCG-PER MCG REVIEW MEETS INPT FOR PANCREATITIS WITH NEED FOR IV PAIN MANAGEMENT, MONITORING FOR WITHDRAWAL AND IVF EOCCO INPT 09/29/25 @ 1248 ORDER MATCHES REG CLINICALS FAXED TO [facility] FOR AUTH REVIEW DISCHARGE DISPO PENDING FURTHER EVALUATION 10/01/25 DC REVIEW
--- NOTE | 2025-09-30 10:58 | EKG ---
[facility] [address] [facility] [place] [address] Signed Accelerated Junctional rhythm with retrograde conduction with occasional premature ventricular complexes Abnormal ECG When compared with ECG of 24-SEP-2025 14:00, Junctional rhythm has replaced Sinus rhythm Confirmed by Kiana Fry DO ([id number]) on 09/30/2025 10:57:56 AM Electronically Signed By: KIANA FRY DO 09/30/25 1058 PATIENT NAME: SHELIA LENZ Electrocardiogram DATE OF : 89 PHYSICIAN: KIANA FRY DO REPORT #: [id number] REPORT IS CONFIDENTIAL AND NOT TO BE RELEASED WITHOUT AUTHORIZATION
--- NOTE | 2025-09-30 11:10 | NUR ---
PATIENT RESTING IN BED. RR EVEN AND UNLABORED. SPO2 95% ON RA. VITAL SIGNS STABLE. CALL LIGHT IN REACH. BED ALARM ON
--- NOTE | 2025-09-30 11:35 | NUR ---
PATIENT RESTING IN BED W/ EYES CLOSED. RR EVEN AND UNLABORED. SPO2 95% ON RA. HR 90'S-100'S, NSR TO ST. PATIENT DROWSY BUT AROUSABLE TO VERBAL AND TACTILE STIMULATION. PATIENT REPORTS ABDOMINAL TENDERNESS AND RATES PAIN 7/10 BUT DENIES NEED FOR FURTHER PAIN MEDICATION AND QUICKLY DRIFTS BACK TO SLEEP. SEIZURE PADS IN PLACE. VITAL SIGNS STABLE. BED ALARM ON, CALL LIGHT IN REACH
[2025-09-30] MEDS ORDERED: PHARMACY RENAL DOSE ADJUSTMENT 1 DOSE MISC PO SCH (12:00)
--- NOTE | 2025-09-30 12:20 | NUR ---
PATIENT RESTING IN BED. RR EVEN AND UNLABORED. PATIENT PROVIDED SCANT AMOUNT OF ICE CHIPS. PATIENT DENIES FURTHER NEEDS AT THIS TIME. NO EVIDENCE OF ACUTE DISTRESS NOTED. CALL LIGHT IN REACH. BED ALARM ON
--- NOTE | 2025-09-30 13:41 | NUR ---
PATIENT RESTING IN BED. HR 90'S, NSR. SPO2 97% ON RA. NO EVIDENCE OF ACUTE DISTRESS NOTED. CALL LIGHT IN REACH. BED ALARM ON
--- NOTE | 2025-09-30 14:32 | NUR ---
PATIENT RESTING IN BED. RR EVEN AND UNLABORED. PATIENT ORIENTED X4. PATIENT DENIES NAUSEA AT THIS TIME. VITAL SIGNS STABLE. CALL LIGHT IN REACH. BED ALARM ON.
--- NOTE | 2025-09-30 15:20 | NUR ---
PATIENT CIWA 11, PRN ATIVAN ADMINISTERED PER EMAR. PATIENT C/O NAUSEA AND 10/10 ABDOMINAL PAIN. PRN COMPAZINE AND PRN DILAUDID ADMINISTERED PER EMAR. PATIENT REQUESTS TO GET UP TO BR. PATIENT UP TO BR 2 PA. PATIENT VOIDS W/O DIFFICULTY. LINEN CHANGE COMPLETE. PATIENT BACK TO BED. PATIENT PROVIDED SCANT AMOUNT OF ICE CHIPS. PATIENT DENIES FURTHER NEEDS. CALL LIGHT IN REACH. BED ALARM ON, SEIZURE PADS IN PLACE
--- NOTE | 2025-09-30 16:03 | NUR ---
PATIENT NOW RESTING IN BED WITH EYES CLOSED. PATIENT AROUSABLE TO VERBAL STIMULI. PATIENT DENIES NAUSEA. CIWA 6. IVF INFUSING PER EMAR. BED ALARM ON. VITAL SIGNS STABLE. CALL LIGHT IN REACH
--- NOTE | 2025-09-30 17:36 | NUR ---
THIS RN IN ROOM TO CHECK IN ON PATIENT. PATIENT RESTING IN BED W/ EYES CLOSED. PATIENT AROUSABLE TO VERBAL AND TACTILE STIMULI. PATIENT REPORTING PAIN 7/10. PRN PAIN MEDICATION ADMINISTERED PER EMAR. PATIENT QUICKLY DRIFTS BACK TO SLEEP WHILE THIS RN IN ROOM. SPO2 99%. NO EVIDENCE OF ACUTE DISTRESS NOTED. BED ALARM ON. CALL LIGHT IN REACH
--- NOTE | 2025-09-30 18:15 | NUR ---
PATIENT CIWA 10; PRN ATIVAN ADMINISTERED PER EMAR. PATIENT REPOSITIONS SELF IN BED. PATIENT NOW SITTING UP IN BED ON PHONE. VITAL SIGNS STABLE. SCANT AMOUNT OF ICE CHIPS PROVIDED. PATIENT UPDATED ON POC. PATIENT DENIES NEED TO VOID. BED ALARM ON. SEIZURE PADS IN PLACE. CALL LIGHT IN REACH.
--- NOTE | 2025-09-30 18:17 | NUR ---
PATIENT CIWA 9, PRN ATIVAN ADMINISTERED PER EMAR. PATIENT DENIES FURTHER NEEDS. PATIENT REPOSITIONS SELF IN BED. PATIENT UPDATED ON POC. PATIENT DENIES NEED TO VOID. PATIENT PROVIDED SCAN AMOUNT OF ICE CHIPS. IVF INFUSING PER EMAR. IV SITES INTACT. HR 100'S, ST. NO EVIDENCE OF ACUTE DISTRESS NOTED. BED ALARM ON, SEIZURE PADS IN PLACE. CALL LIGHT IN REACH
--- NOTE | 2025-09-30 19:05 | NUR ---
PATIENT RESTING IN BED. PATIENT DENIES NAUSEA AT THIS TIME. PATIENT RATES PAIN 4/10 AND DENIES NEED FOR PAIN MEDICATION. PATIENT UPDATED ON POC. NO FURTHER NEEDS IDENTIFIED. BED ALARM ON. SEIZURE PADS IN PLACE. CALL LIGHT IN REACH
--- NOTE | 2025-09-30 20:11 | NUR ---
PT RESTING IN BED SNORING WAKES EASILY WITH VOICE, HOB ELEVATED >30 DEGREES, SEIZURE PADS IN PLACE. PT ORIENTED, CORRECTS SELF ON ANSWERS THAT ARE WRONG WITHOUT INPUT. PT RATES PAIN 4/10 IN ABD THAT RADIATES TO BACK. ENDORSES HEADACHE BUT DOES NOT RATE, WORSE WITH LIGHTS ON. MILD TREMORS, NO OTHER WITHDRAWL SYMPTOMS AT THIS TIME. VS STABLE ON MONITOR. PT DENIES NEEDS AT THIS TIME, CALL LIGHT IN REACH.
--- NOTE | 2025-09-30 20:35 | NUR ---
PTS MOTHER UPDATED VIA PHONE CALL - ALL QUESTIONS ANSWERED.
--- NOTE | 2025-09-30 21:32 | NUR ---
PT UP TO COMMODE WITH 2 PERSON ASSIST, UNSTEADY ON FEET. URINE VOID 1100ML. BACK TO BED WITH SIDE RAILS AND PADDING UP, CURRENT CIWA 17. 2MG ATIVAN ADMINISTERED. PAIN 6/10 IN ABD/BACK, PRN DILAUDID ADMINISTERED. IV SITE PATENT, WNL. SMALL AMOUNT OF ICE CHIPS GIVEN. CALL LIGHT IN REACH, BED ALARM ON.
--- NOTE | 2025-09-30 22:13 | NUR ---
PT RESTING IN BED, EYES CLOSED, WITH HOB ELEVATED, PADS IN PLACE. RR EVEN AND UNLABORED. VS STABLE ON MONITOR. CALL LIGHT IN REACH, BED ALARM ON.
--- NOTE | 2025-09-30 23:24 | NUR ---
RN ROUNDING ON PT - RESTING IN BED WITH EYES CLOSED, RR EVEN AND UNLABORED. VS STABLE ON MONITOR. CALL LIGHT IN LAP, BED ALARM ON.
[2025-10-01] VITALS (20 sets, daily range): BP systolic 115–159; BP diastolic 88–118
--- NOTE | 2025-10-01 00:57 | NUR ---
PT USES CALL LIGHT TO REPORT "FEELING ITCHY AND AGGITATED". CIWA ON ASSESSMENT 26, PT HAVING VISUAL AND AUDITORY HALLUCINATIONS, WOKE FROM SLEEP WITH ALL SYMPTOMS. PT TEARFUL. SEE EMAR FOR PRNS ADMINISTERED. CALL LIGHT IN LAP, BED ALARM ON, PADS IN PLACE.
--- NOTE | 2025-10-01 02:13 | NUR ---
CALL PLACED TO MD TO NOTIFY OF INCREASING CIWA SCORES, MOST RECENT BEING 26 THAT WAS ONLY MINIMALLY REDUCED BY 4MG ATIVAN. DESPITE 4MG DOSE PT CONTINUES TO HAVE HALLUCINATION, HEADACHE, TREMOR, ANXIETY AND TACTILE AGGITATION. RN REQUEST FOR ADJUCT USE OF PHENOBARBITAL DENIED AT THIS TIME. CONTINUE TO MONITOR AND DOSE PER EMAR, NO FURTHER ORDERS RECEIVED.
--- NOTE | 2025-10-01 03:25 | NUR ---
PT USES CALL LIGHT TO REPORT NEED TO URINATE. PT UNSTEADY ON FEET AND SIGNIFICANT TREMORS WITH MOVEMENT. PT REPORTS NAUSEA, PERSISTANT HALLUCINATIONS OF HER SON BOTH AUDITORY AND VISUAL. PT CONTINUES TO SCRATCH HARSHLY AT SKIN STATING "CREEPY CRAWLIES". WHEN ASKED IN SHE FELT LIKE HER WITHDRAWL SYMPTOMS WERE WORSENING SHE STATED "I FEEL LIKE IM GOING TO HIT THE TOP REAL SOON". ADDITIONAL 4MG ATIVAN ADMINISTERED IV, CIWA SCORE 23. PT REPORTS PAIN 8/10 IN ABD RADIATING TO BACK. HR NOTED TO REACH 140'S WITH TRANSFER TO [facility], VENTRICULAR PACED RHYTHM WITH HIGHER RATES. SINUS TACH IN THE 90'S WHILE RESTING IN BED. DIASTOLIC PRESSURE NOTED TO BE INCREASING. WARM BLANKET PROVIDED, CALL LIGHT IN REACH, BED ALARM ON WITH PADS IN PLACE.
--- NOTE | 2025-10-01 05:09 | NUR ---
PT WAKES EASILY FOR BLOOD DRAW - CURRENT CIWA SCORE 16. OTHERWISE ASSESSMENT REMAINS UNCHANGED FROM PRIOR.
[2025-10-01 05:16] LABS: BASOPHILS 0.9 % (0.1-1.2); EOSINOPHILS 1.8 % (0.7-5.8); LYMPHOCYTES 20.0 % (19.3-51.7); MCH 36.6 PG (25.6-32.2); MCHC 35.2 g/dL (32.2-35.5); MCV 104.0 fL (79.4-94.8); MONOCYTES 7.4 % (4.7-12.5); NEUTROPHILS 69.2 % (34.0-71.1); RBC 3.52 M/uL (3.93-5.22)
[2025-10-01 05:35] LABS: ALT (SGPT) 109.0 U/L (14-59); AST (SGOT) 148.0 U/L (15-37); GLOMERULAR FILTRATION RATE,EST 122.0 mL/min (>60); PHOSPHORUS, INORGANIC 2.5 mg/dL (2.5-4.9); PROTEIN, TOTAL 5.7 g/dL (6.4-8.2); UREA NITROGEN 7.0 mg/dL (7-18)
--- NOTE | 2025-10-01 07:30 | NUR ---
PATIENT HANDOFF REPORT RECEIVED FROM FULLER BRUSH WORKER RN. ALL QUESTIONS ANSWERED. PATIENT RESTING IN BED, PATIENT GRASPING THE AIR AT THIS TIME. SEIZURE PADS IN PLACE. BED ALARM ON.
--- NOTE | 2025-10-01 07:40 | NUR ---
DC REVIEW: PATIENT DOES NOT DRIVE, BUT HAS TRANSPORTATION DISCHARGE TO HOME WHEN STABLE ADD:2-3 DAYS NO ACTIONS REQUIRED
[2025-10-01] MEDS ORDERED: FOLIC ACID 1 MG TAB PO SCH (08:00)
[2025-10-01] MEDS ORDERED: THIAMINE HCL 100 MG TAB PO SCH (08:00)
--- NOTE | 2025-10-01 08:00 | NUR ---
THIS RN AT BEDSIDE. PATIENT UPDATED ON POC. PATIENT STATES "I AM DISORIENTED", TEARS NOTED ON PATIENTS FACE. PATIENT UNABLE TO ANSWER ANY ORIENTATION QUESTIONS AT THIS TIME. PATIENT STATES THE MONTH IS "". PATIENT SHAKES HEAD NO WHEN ASKED WHO THE PRESIDENT IS. PATIENT STATES THAT SHE IS AT "[facility]" WHEN ASKED WHERE SHE IS CURRENTLY AT RIGHT NOW. PATIENT REDIRECTED. SEIZURE PADS IN PLACE. BED ALARM ON. PATIENT REMAINS IN DIRECT OBSERVATION OF THIS RN FROM RN STATION.
--- NOTE | 2025-10-01 08:28 | NUR ---
PATIENT BLADDER SCANNED FOR 970 ML. NOTIFIED BY GISELA VANEGAS. PUREWICK PLACED AND PATIENT ENCOURAGED TO VOID. THIS RN REMAINS AT BEDSIDE
--- NOTE | 2025-10-01 08:35 | NUR ---
PATIENT CIWA 20. AWARE. AWAITING NEW ORDER FOR PHENOBARBITOL IV. SEIZURE PADS IN PLACE. BED ALARM ON. THIS RN REMAINS IN ROOM
[2025-10-01] MEDS ORDERED: LIDOCAINE 2% VISCOUS 6 ML SYR TOP ONE (09:00)
--- NOTE | 2025-10-01 09:05 | NUR ---
PATIENT ASSESSMENT COMPLETE. PRUETT INSERTED D/T URINARY RETENTION AND UNSUCCESSFUL USE OF EXTERNAL PUREWICK. PRUETT CARE COMPLETE. PATIENT UPDATED ON POC. IV SITES INTACT AND WNL. HR 100'S, ST. SPO2 97% ON RA. VITAL SIGNS STABLE. PATIENT PROVIDED SCANT AMOUNT OF ICE CHIPS. IVF INFUSING PER EMAR. NO EVIDENCE OF ACUTE DISTRESS NOTED. THIS RN REMAINS IN ROOM
[2025-10-01] MEDS ORDERED: LORazepam 2 MG/ML VIAL IV/IM PRN ×2 (09:30→18:15)
[2025-10-01] MEDS ORDERED: FOLIC ACID 1 MG/0.2 ML ML IV SCH (09:37)
--- NOTE | 2025-10-01 09:45 | NUR ---
MD AT BEDSIDE TO ROUND WITH PATIENT.
--- NOTE | 2025-10-01 10:14 | NUR ---
PATIENT CURRENTLY UNABLE TO CARRY ON CONVERSTAION. PREVIOUSLY DENIED ASSISTANCE WITH ALCOHOL AND SUBSTANCE ABUSE. WHEN HER MENTATION IMPROVES, WILL REVISIT TOPIC WITH HER.
--- NOTE | 2025-10-01 10:15 | NUR ---
PHONE CALL PLACED TO LUZ ELENA IN PHARMACY. PHENOBARBITOL ORDER VERIFIED W/ CORRECT DOSING. PER MD LUZ ELENA AWARE PHENOBARBITOL DOSING IS BASED OFF OF IDEAL BODY WEIGHT AND MAX DOSE IS 10MG/KG. MD TO USE REGULAR BODY WEIGHT OF 83.2 KG AND DOSE IT AT 5MG/KG FOR FIRST DOSE. PER LUZ ELENA, PHENOBARBITOL DOSING ON EMAR IS UNDER THE 10MG/KG AND MONOMER PURIFICATION OPERATOR OK TO INFUSE.
[2025-10-01] MEDS ORDERED: THIAMINE HCL 200 MG/2 ML VIAL IV SCH (10:30)
--- NOTE | 2025-10-01 11:00 | NUR ---
PATIENT RESTING IN BED. VITAL SIGNS STABLE. BED ALARM ON. IVF INFUSING PER EMAR. IV PHENOBARBITOL INFUSING PER EMAR. CALL LIGHT IN REACH
--- NOTE | 2025-10-01 12:10 | NUR ---
CIWA 10. PATIENT DROWSY BUT AROUSABLE TO VERBAL AND TACTILE STIMULI. IVF INFUSING PER EMAR. PATIENT DISORIENTED TO TIME AND PLACE. PATIENT UPDATED ON POC. PATIENT REMAINS IN DIRECT OBSERVATION OF THIS RN AT RN STATION. NO FURTHER NEEDS IDENTIFIED. VITAL SIGNS STABLE. CALL LIGHT IN REACH. BED ALARM ON.
--- NOTE | 2025-10-01 13:19 | NUR ---
PATIENT SON 8. THIS RN IN ROOM. PATIENT ORIENTED TO ALL. PATIENT RATES PAIN 7/10. PRN DILAUDID ADMINISTERED PER EMAR. PATIENT DRIFTS BACK TO SLEEP. NO EVIDENCE OF ACUTE DISTRESS NOTED. BED ALARM ON. SEIZURE PADS IN PLACE.CALL LIGHT IN REACH
--- NOTE | 2025-10-01 14:20 | NUR ---
CALL PLACED TO MD. PATIENT UPDATED PROVIDED. MD NOTIFIED OF PATIENTS VITALS AND MD AWARE OF INCREASED DBP'S. MD VERBAL ORDER RECIEVED TO NOTIFY HIM OF CIWA >20; MD WILL PLACE NEW ORDER FOR PHENOBARBITOL IF CIWA >20. PRN ATIVAN TO BE ADMINISTERED FOR CIWA >8 PER EMAR. ORDER VERIFIED VIA REPEAT BACK METHOD
--- NOTE | 2025-10-01 14:55 | NUR ---
PATIENT CURRENTLY SLEEPING, REGULAR RESPIRATIONS. BED IN LOW POSITION, PADDING ON SIDES. IV FLUIDS RUNNING. OXYGEN 97%.
--- NOTE | 2025-10-01 15:35 | NUR ---
PATIENT C/O NAUSEA. PRN COMPAZINE ADMINISTERED PER EMAR. THIS RN REMAINS IN ROOM. PATIENT ORIENTED. PATIENT ITCHES AT CHEST AND C/O SEEING HER SON IN THE ROOM. PATIENT C/O AUDITORY HALLUCINATIONS AND A KOHLER. PATIENT REDIRECTED TO SURROUNDINGS. PATIENT REDIRECTABLE. THIS RN REMAINS IN ROOM
--- NOTE | 2025-10-01 16:10 | NUR ---
CIWA 14 AFTER PRN DOSE OF ATIVAN ADMINISTERED PER EMAR. PRN COMPAZINE ADMINISTERED PER EMAR FOR NAUSEA AND THIS RN MONITORING PATIENT FOR INCREASED DROWSINESS PRIOR TO NEXT DOSE OF PRN ATIVAN PER EMAR.
--- NOTE | 2025-10-01 16:30 | NUR ---
TELEMETRY LEADS NOTED TO HAVE ARTIFACT. THIS RN IN ROOM. PATIENT FIDGETING WITH LEADS. PATIENT REPOSITIONED IN BED. PATIENT C/O INCREASED AGITATION. PATIENT BECOMES TEARFUL. PRN ATIVAN ADMINISTERED PER EMAR. PATIENT NOW RESTING IN BED. PATIENT STILL RESTLESS. THIS RN REMAINS IN DIRECT OBSEVRATION OF PATIENT
--- NOTE | 2025-10-01 17:45 | NUR ---
PATIENT CALLED AND REPORTED INCREASED AGITATION AND FEELING OF WANTING TO BREAK HER PHONE. FOLLOWED UP WITH PATIENT OF SYMPTOMS. PATIENT DENIES HARM TOWARDS SELF/OTHERS JUST FEELS AGITATED AND ANGER. WILL FOLLOW-UP WITH PHARMACY AND MD IN REGARDS TO MEDICATION CHANGES FOR WITHDRAWLS.
--- NOTE | 2025-10-01 18:00 | NUR ---
PHONE CALL PLACED TO . NOTIFIED OF PATIENTS CIWA OF 20 AND INCREASED AGITATION. MADE AWARE OF MANUAL BP OF 158/112. MD TO PUT IN NEW ORDERS.
[2025-10-01] MEDS ORDERED: PHENOBARBITAL SOD 130 MG/ML VIAL IV SCH (18:15)
--- NOTE | 2025-10-01 18:41 | NUR ---
PATIENT RESTING IN BED. RR 23. EVEN AND UNLABORED. VITAL SIGNS STABLE. IVF INFUSING PER EMAR. NO EVIDENCE OF ACUTE DISTRESS NOTED. BED ALARM ON, SEIZURE PADS IN PLACE
[2025-10-02] VITALS (16 sets, daily range): BP systolic 135–158; BP diastolic 101–128
--- NOTE | 2025-10-02 05:24 | NUR ---
Pt agitated and complaining about chen catheter causing her urethra spasms. Catheter was removed and patient felt better.
[2025-10-02 05:30] LABS: BASOPHILS 1.2 % (0.1-1.2); EOSINOPHILS 1.6 % (0.7-5.8); LYMPHOCYTES 18.6 % (19.3-51.7); MCH 36.0 PG (25.6-32.2); MCHC 35.3 g/dL (32.2-35.5); MCV 101.9 fL (79.4-94.8); MONOCYTES 9.5 % (4.7-12.5); NEUTROPHILS 68.1 % (34.0-71.1); RBC 3.67 M/uL (3.93-5.22)
[2025-10-02 05:45] LABS: ALT (SGPT) 98.0 U/L (14-59); AST (SGOT) 116.0 U/L (15-37); GLOMERULAR FILTRATION RATE,EST 122.0 mL/min (>60); PHOSPHORUS, INORGANIC 2.8 mg/dL (2.5-4.9); PROTEIN, TOTAL 5.9 g/dL (6.4-8.2); UREA NITROGEN 6.0 mg/dL (7-18)
--- NOTE | 2025-10-02 07:50 | NUR ---
PT UP TO BS COMMODE, TWO STAFF BUT PT WAS ABLE TO STAND ON HER OWN AND GET OUT OF BED. STAFF WAS JUST A STAND BY ASSISTACE TO COMMODE. VOIDED AND THEN STOOD AT THE EGDE OF THE BED AND WAS STEADY ON HER FEET. SOME TREMORS IN HANDS NOTED. BACK TO BED AND HAD SOME SIPS OF WATER AND ICE CHIPS AT THIS BEDSIDE.
[2025-10-02] MEDS ORDERED: THIAMINE HCL 200 MG/2 ML VIAL IV SCH (08:00)
--- NOTE | 2025-10-02 08:38 | NUR ---
PT ASLEEP AT THIS TIME, BP STILL REMAIN ELEVATED AND NO MEDICATIONS AT THIS TIME.
--- NOTE | 2025-10-02 09:24 | NUR ---
INTO VISIT PT NEW ORDERS, PT IS ABLE TO EAT. BKF ORDERED AT THIS TIME FOR PT.
--- NOTE | 2025-10-02 09:59 | NUR ---
PT SAT UP IN BED ATE BKF AT THIS TIME. HAD ABOUT 50% OF IT. PT WANTED TO GO FOR A WALK OUTSIDE. EXPLAINED THAT SHE CANNOT GO OUT SIDE TO WALK, BUTCAN WALK DOEN THE MILLER TO THE SHOWER IN A FEW TO TAKE A SHOWER. PT STATES "NO I WILL NOT SHOWER AND WILL SHOWER WHEN I GET HOME. " EXPLAINED TO PT THT SHE CAN WALK IN THE UNIT HALLWAY, BUT NOT OUTSIDE DUE TOSTAFFING ANS SAFTEY FOR THE PT.
--- NOTE | 2025-10-02 10:00 | NUR ---
PT UP TO THE BATHROOM AND VOIDED AND STATES "I STARTED MY PEROID AND I NEED A TANPOON." PT LOOKED IN HER PURSE, BUT NONE FOUND. PROVIDED UNDERGARMENTS AND A PAD TO PT. PT WAS ABLE TO STAND AND PUT ON UNDERGARMENTS. BACK TO BED. PT STEADY ON HER FEET AND ONLY STAND BY ASSISTANCE NEEDED. PT CONTIOUES TO KEEP BKF DOWN.
--- NOTE | 2025-10-02 11:00 | NUR ---
PT IN HER BED WITH SHEET OVER HER HEAD LISTENING TO MUSIC FROM HER PHONE. CURTINS OPEN WITH DOOR CLOSED.
--- NOTE | 2025-10-02 11:54 | NUR ---
PT MEDICATED WITH 2MG ATIVAN AND 4MG ZOFRAN FOR A CIWA OF 9 AT THIS TIME. PT IS A LITTLE NAUSEAED, BUT WANTS TO EAT LUNCH TURKEY DINNER.
--- NOTE | 2025-10-02 15:17 | NUR ---
PT HAS BEEN RESTING COMFOTABLE AT THIS TIME. NO ISSUES NOTED.
--- NOTE | 2025-10-02 15:22 | NUR ---
MED REC COMPLETE
--- NOTE | 2025-10-02 16:42 | NUR ---
PT UP TO THE BATHROOM, PT STEADY ON HER FEET AT THIS TIME. PT FOUND WITH A VAPE PEN IN BED. REMOVED IT FROM HER POSITION AND PLACED IN LOCK BOX IN ROOM. SIDE RAILS X4 AND SEZIURE PADS IN PLACE WITH BED ALARM ON.
--- NOTE | 2025-10-02 17:11 | NUR ---
PT AWAKEN FOR DINNER, THEN WENT BACK TO SLEEP AT THIS TIME. FOOD LEFT ON BEDSIDE STAND WILL WARM UP WHEN NEEDED. HR UNDER 100 AT THIS TIME. SPO2 98% ON RA
--- NOTE | 2025-10-02 17:32 | NUR ---
PT WOKE UP TALKING TO HER CHILDREN IN THE ROOM, BUT NO CHILDREN WHERE IN THE ROOM. PT MEDICATED AT THIS TIME. PT TRYING TO EAT DINNER ALSO AT THIS TIME.
--- NOTE | 2025-10-02 17:38 | NUR ---
PT IN BED AND WANTS TO DO BED YOGA AT THIS TIME. SIDE RAILS X4 AND BED ALARM IS ON AT THIS TIME ALSO.
--- NOTE | 2025-10-02 18:18 | NUR ---
pt is very uptight about hearing voices and unable to find her thc vape pen at this time. she feels that she had it in bed today. but two staff and pt unable to find it. took the ed apart removed bedding and sezier pads. pt back to bed talked with her and did vs and just let her vent. provided ice water and bed larm and side rails x [address] while junior underwriter makeing this note pt back to sleep .
--- NOTE | 2025-10-02 19:15 | NUR ---
SHIFT REPORT RECEIVED. PATIENT RESTING IN BED. VS STABLE. BED ALARM ACTIVE. CALL LIGHT IN REACH.
--- NOTE | 2025-10-02 20:03 | NUR ---
PATIENT REQUESTING PRN MEDS FOR ANXIETY. CIWA 13. ATIVAN PROVIDED PER ORDER. PATIENT IS RESTING IN BED. REPORTS 8/10 ABD PAIN AND MILD NAUSEA. TAKING PO FLUIDS AND REQUESTED A SNACK WHICH WAS PROVIDED. VS STABLE. SEIZURE PADS IN PLACE. BED ALARM ACTIVE. CALL LIGHT IN REACH.
--- NOTE | 2025-10-02 20:52 | NUR ---
PATIENT UP TO VOID. PATIENT HAS MINIMAL OUTPUT. DENIED FEELING URGENCY OR PAIN WITH VOIDING. PATIENT IS RESTLESS OVERALL. PATIENT RETURNED TO BED. BED ALARM ACTIVE.
--- NOTE | 2025-10-02 21:09 | NUR ---
PATIENT PROVIDED SCHEDULED MEDS. CIWA REMAINS > 8. PATIENT IS ANXIOUS AND TREMULOUS. PRN MEDS PROVIDED FOR NAUSEA AND ABD PAIN. PATIENT ENCOURAGED TO REST; SHE IS CURRENTLY PLAYING MUSIC ON HER PHONE. LIGHTS DIMMED. CALL LIGHT IN REACH. BED ALARM ACTIVE.
--- NOTE | 2025-10-02 23:33 | NUR ---
PATIENT UP TO THE BATHROOM. PATIENT REMAINS RESTLESS; NEEDING INSTRUCTIONS TO WAIT FOR STAFF TO ASSIST AND IS SOMEWHAT IMPULSIVE. PATIENT VOIDED AND RETURNED TO THE BED. PATIENT ASKED FOR "ALL THE DRUGS". WHEN QUESTIONED THE PATIENT SPECIFICALLY ASKED FOR ATIVAN, DILAUDID AND ZOFRAN. CIWA > 8; PRN ATIVAN GIVEN PER ORDER. OTHER PRN NOT AVAILABLE AT THIS TIME AND PATIENT AWARE. ENCOURAGED PATIENT TO TRY AND SLEEP. PHONE PUT AWAY. LIGHTS OFF. BED ALARM ACTIVE. CALL LIGHT IN REACH.
[2025-10-03] VITALS (7 sets, daily range): BP systolic 118–163; BP diastolic 82–117
--- NOTE | 2025-10-03 00:30 | NUR ---
PATIENT APPEARS RESTFUL IN BED. VS STABLE. EYES CLOSED. ALLOWED PATIENT TO REST. CALL LIGHT IN REACH.
--- NOTE | 2025-10-03 01:41 | NUR ---
PT REPORTS 9/10 FLANK PAIN AND ANXIETY. CIWA 16, MEDS PROVIDED. PT STATES NO OTHER NEEDS AT THIS TIME. CALL LIGHT IN REACH.
--- NOTE | 2025-10-03 03:59 | NUR ---
patient up to bathroom, voids, then ambulates back to bed. patient provided with fresh ice water and ice chips. patient has no further needs at this time. call light in reach, and bed alarm on.
[2025-10-03 05:41] LABS: BASOPHILS 1.3 % (0.1-1.2); EOSINOPHILS 2.0 % (0.7-5.8); LYMPHOCYTES 25.3 % (19.3-51.7); MCH 36.3 PG (25.6-32.2); MCHC 35.9 g/dL (32.2-35.5); MCV 101.1 fL (79.4-94.8); MONOCYTES 12.5 % (4.7-12.5); NEUTROPHILS 57.8 % (34.0-71.1); RBC 3.75 M/uL (3.93-5.22)
[2025-10-03 05:55] LABS: ALT (SGPT) 77.0 U/L (14-59); AST (SGOT) 82.0 U/L (15-37); GLOMERULAR FILTRATION RATE,EST 114.0 mL/min (>60); PHOSPHORUS, INORGANIC 3.6 mg/dL (2.5-4.9); PROTEIN, TOTAL 5.9 g/dL (6.4-8.2); UREA NITROGEN 10.0 mg/dL (7-18)
--- NOTE | 2025-10-03 06:00 | NUR ---
PATIENT FREQUENTLY ASKING FOR "ANY DRUGS I CAN HAVE" AND THEN QUICKLY FALLING BACK TO SLEEP. PATIENT IS ALSO ANXIOUS TO GO HOME AND IS ASKING FREQUENTLY WHEN SHE CAN BE DISCHARGED. PATIENT EDUCATION PROVIDED ON PLAN OF CARE AND APPROPRIATE USE OF PRN MEDICATIONS. PATIENT CIWA > 8 BUT IMPROVING. PRN MEDS PROVIDED PER ORDER.
[2025-10-03] MEDS ORDERED: LORazepam 1 MG TAB PO PRN (06:45)
[2025-10-03] MEDS ORDERED: MAGNESIUM OXIDE 400 MG TABLET PO ONE (07:30)
--- NOTE | 2025-10-03 07:45 | NUR ---
REPORT RECEIVED FROM NAVNEET HIGGINS. FENTANYL PATCH VERIFIED.
--- NOTE | 2025-10-03 08:16 | NUR ---
PT RESTING WITH EYES CLOSED, RESP EVEN AND UNLABORED.
--- NOTE | 2025-10-03 08:30 | NUR ---
PT AWAKE AND RESTING IN BED AFTER BREAKFAST. OF NOTE - PT HANDS THIS RN A SMALL THIN BLACK VAPE THAT SHE STATES IS THC. PT DENIES USING IT THIS AM, STATES SHE HAD IT IN BED "UNDER MY BUTT". THIS WAS REPORTIDLY WHAT PT WAS LOOKING FOR LAST NIGHT IN HER BED/ROOM. VAPE PLACED IN ROOM LOCK BOX. REPORTS MILD NAUSEA BUT UNDETERED FROM EATING. PT CIWA 11 - PRN ATIVAN ADMINISTERED WITH SCHEDULED PHENOBARB. IV SITES PATENT, DRESSING HAS DRIED BLOOD APPEARENCE PT HAS BEEN PICKING AT THEM. PT REPORTS PAIN BUT DENIES NEED FOR PAIN MEDICATION AT THIS TIME. DISCUSSED NEED TO TRANSISTION TO PO PAIN MEDS PRIOR TO DC HOME. PT STATES UNDERSTANDING. VS STABLE ON MONITOR. PT ANXIOUS TO SHOWER WHICH SHE IS IN NEED OF.
--- NOTE | 2025-10-03 09:30 | NUR ---
PT UPSET WITH MD REQUEST TO STAY FOR ADDITIONAL DAY TO TRANSISTION TO PO MEDICATIONS. PT TEARFUL AND STATES THAT SHE JUST NEEDS TO GO OUTSIDE AND SMOKE, WHEN PT INFORMED THAT IT IS AGAINST POLICY SHE BECAME AGGITATED. MENU PLANNER PREPARING SHOWER PER PT REQUEST, NOW REFUSING, ATTEMPTING TO GET BACK INTO BED WITHOUT LINENS. ALLOWED TIME IN ROOM ALONE WITH CURTAIN AND DOOR OPEN TO CALM SELF.
--- NOTE | 2025-10-03 11:05 | NUR ---
PT RESTING IN BED WITH EYES CLOSED, RR EVEN AND UNLABORED. CALL LIGHT IN REACH, BED ALARM ON. SIEZURE PADS IN PLACE.
--- NOTE | 2025-10-03 11:09 | NUR ---
ATTEMPTED TO SEE PATIENT. PATIENT RESTING IN BED. HOPING TO D/C HOME WHEN MEDICALLY CLEARED FOR D/C.
--- NOTE | 2025-10-03 12:53 | NUR ---
PT CONTINUES TO REST IN BED WITH EYES CLOSED, RR EVEN AND UNLABORED. CALL LIGHT IN REACH, PADS IN PLACE.
--- NOTE | 2025-10-03 13:48 | NUR ---
PT ANGRY NOT BEING DISCHARGE TODAY STATING WE ARE "LIARS". CIWA SCORED AT 10, PROVIDED 2MG ATIVAN PO. PT REFUSAL OF VITAL SIGNS AND PLACING MONITOR. PT STATED "I AM GOING TO START BEING AN ASS". FULL SEIZURE PADS IN PLACE BILATERALLY, CALL FU IN REACH, BED IN LOW POSITION AND LOCKED.
--- NOTE | 2025-10-03 14:17 | NUR ---
PT REFUSING TO WEAR SERVICE LOSS CONTROL CONSULTANT AT THIS TIME. DID AGREE TO A SET OF VITAL SIGNS FOR CERAMIC MAKER DEMONSTRATOR. PT REMINDED ABOUT NICOTINE PATCH AND EDUCATED SHE HAS NICOTINE GUM AVAILABLE IF SHE WANTS.
--- NOTE | 2025-10-03 14:20 | NUR ---
BLADDER SCAN COMPLETED, NO RESIDUAL FOUND FOLLOWING VOID. PT PLEASANT AND COOPERATIVE WITH CARE
--- NOTE | 2025-10-03 15:01 | NUR ---
PT CURRENTLY RESTING IN BED, WAS VERY SLEEPY WHEN ARRIVED. MEDS GIVEN WITH SIPS OF WATER - SEE MAR. PT PHONE CURRENTLY PLAYING MUSIC, PT FALLS BACK ASLEEP AT THIS TIME. ALL PT CARE NEEDS MET, CALL LIGHT IS WITHIN REACH.
--- NOTE | 2025-10-03 15:51 | NUR ---
PT RESTING IN BED WITH EYES CLOSED, RR EVEN AND UNLABORED. BED ALARM ON. RAILS UP
--- NOTE | 2025-10-03 16:18 | NUR ---
PT ASSESSMENT AND CIWA/MEDS REVIEWED WITH MD - NO NEW ORDERS RECEIVED.
[2025-10-03] MEDS ORDERED: clonazePAM 1 MG TAB PO SCH (21:00)
--- NOTE | 2025-10-03 23:07 | NUR ---
PATIENT WAS TAKEN OVER TO MI TO SHOWER WITH FOOD PREP WORKER FROM ABDULAZIZ CHOUDHARY RN. PATIENT TOLERATED WELL AND RETURNED TO THE ROOM. PATIENT REQUESTING PRN ATIVAN. CIWA > 8. PO ATIVAN PROVIDED PER ORDER. MELATONIN ALSO PROVIDED. ENCOURAGED PATIENT TO REST.
[2025-10-04 02:00] VITALS: BP 137/107
--- NOTE | 2025-10-04 03:20 | NUR ---
PATIENT CIWA SCORE OF 8. PRN ATIVAN GIVEN PER EMAR. PATIENT STATES 8/10 PAIN, PRN TYLENOL GIVEN PER EMAR. PATIENT PROVIDED WITH SANDWICH BOX PER REQUEST. NO FURTHER NEEDS AT THIS TIME. CALL LIGHT IN REACH.
[2025-10-04 05:20] LABS: BASOPHILS 0.8 % (0.1-1.2); EOSINOPHILS 1.2 % (0.7-5.8); LYMPHOCYTES 12.8 % (19.3-51.7); MCH 36.9 PG (25.6-32.2); MCHC 36.4 g/dL (32.2-35.5); MCV 101.5 fL (79.4-94.8); MONOCYTES 13.0 % (4.7-12.5); NEUTROPHILS 71.8 % (34.0-71.1); RBC 3.90 M/uL (3.93-5.22)
[2025-10-04 05:34] LABS: ALT (SGPT) 77.0 U/L (14-59); AST (SGOT) 89.0 U/L (15-37); GLOMERULAR FILTRATION RATE,EST 114.0 mL/min (>60); PHOSPHORUS, INORGANIC 3.0 mg/dL (2.5-4.9); PROTEIN, TOTAL 6.3 g/dL (6.4-8.2); UREA NITROGEN 10.0 mg/dL (7-18)
[2025-10-04 06:38] VITALS: BP 139/97
[2025-10-04] MEDS ORDERED: MAGNESIUM OXIDE 400 MG TABLET PO ONE (07:30)
--- NOTE | 2025-10-04 08:15 | NUR ---
MD IN ROOM TO ROUND AND DC PT - PT ASLEEP AND DOES NOT WAKE FULLY WITH STIMULUS, RR EVEN AND UNLABORED. PLAN OF CARE DISCUSSED WITH MD TO NOT ADMINISTER ANY PRNS R/T INCREASED DROWSYNESS.
[2025-10-04] MEDS ORDERED: CLONAZEPAM1 MG PO (09:30)
--- NOTE | 2025-10-04 09:48 | NUR ---
PT AWAKE AND USING CALL LIGHT TO REQUEST DC HOME. PT ADVISED OF PLAN AND INFORMED OF PROCESS. PT PROVIDED BREAKFAST AND IS SITTING IN BED WITHOUT ANY VISIBLE TREMORS OR AGGITATION, NO SWEAT OR ITCHING NOTED. MD NOTIFIED OF PT BEING AWAKE AND AVAILABLE FOR ROUNDING AND INTENT TO DC HOME.
[2025-10-04] MEDS ORDERED: MAGNESIUM OXIDE 400 MG TABLET ONE (10:01)
== END 2025-10-04 11:05 | disposition home or self-care (01) | DRG 439 ==
LOC: ED 10:02 → CCU 12:58
PROVIDERS: Emergency Medicine; ADMIT Student in an Organized Health Care Education/Training Program; ATTEND Student in an Organized Health Care Education/Training Program
PROC: 0T9B70Z Drainage of Bladder with Drainage Device, Via Natural or Artificial Opening (ICD-10-PCS; principal; 2025-09-29)
PROC: HZ2ZZZZ Detoxification Services for Substance Abuse Treatment (ICD-10-PCS; 2025-10-01)
DX: K85.20 Alcohol induced acute pancreatitis without necrosis or infection (principal); F10.239 Alcohol dependence with withdrawal, unspecified; F41.9 Anxiety disorder, unspecified; D69.6 Thrombocytopenia, unspecified; F17.210 Nicotine dependence, cigarettes, uncomplicated; F10.229 Alcohol dependence with intoxication, unspecified; I25.10 Atherosclerotic heart disease of native coronary artery without angina pectoris; Z98.891 History of uterine scar from previous surgery; Z98.890 Other specified postprocedural states; Z95.0 Presence of cardiac pacemaker; Z98.51 Tubal ligation status; Z79.899 Other long term (current) drug therapy; Z85.6 Personal history of leukemia; Z87.39 Personal history of other diseases of the musculoskeletal system and connective tissue
CPT/HCPCS: 36415; 74177; 80053; 80307; 81001; 83690; 83735; 84100; 84703; 85025; 85060; 85610; 93005; 93010; A9270; A9270-GY; J0780; J1171; J1885; J2060; J2405; J2470; J2560; J3411; J3475; J3480; J3490; J7030; J7060; J7121; Q9967